=== PATIENT | female | born 1955 | race Caucasian/White ===

== ENCOUNTER → 2018-06-10 05:00 | Outpatient (REF) | payer MEDICAID, SELFPAY ==
[2018-06-10 09:36] LABS: Hematocrit 35.9 % (37-47); Hemoglobin 11.6 g/dl (12.0-15.0); Mean Corp Hgb Conc 32.3 g/gl (32-36); Mean Corpuscular Hgb 32.5 pg (27.0-32.0); Mean Corpuscular Volume 100.6 fL (81-99); Mean Platelet Vol. 9.5 fl (6.2-12.0); Platelet Count 383 K/mm3 (150-450); RBC Distribution Width CV 13.1 % (11.6-14.6); Red Blood Count 3.57 M/mm3 (4.2-5.4); White Blood Count 8.6 K/mm3 (4.4-11.0)
[2018-06-10 09:57] LABS: ALB/GLOB Ratio 0.3 RATIO (0.9-2.4); AST(SGOT) 47 U/L (15-37); Alanine Aminotransfer ALT/SGPT 25 U/L (13-56); Albumin, Serum 1.7 g/dL (3.2-5.0); Alkaline Phosphatase 126 U/L (45-117); Anion Gap 4 (5-15); BUN 7 mg/dL (7-18); BUN/Creat Ratio 18.6 RATIO (10-20); Calcium,Total 8.1 mg/dL (8.5-10.1); Chloride 104 mmol/L (98-107); Cholesterol 102 mg/dL (200); Creatinine, Serum 0.38 mg/dL (0.55-1.02); EST Glomerular Filtration Rate 184 mL/min (>60); Est Glom Filt Rate - Afr Amer 222 mL/min (>60); Glucose 74 mg/dL (74-106); High Density Lipoprotein 35 mg/dL; Magnesium 1.5 mg/dL (1.6-2.6); Potassium 3.4 mmol/L (3.5-5.1); Protein, Total 6.7 g/dL (6.4-8.2); Sodium Level 136 mmol/L (136-145); Thyroid Stim Hormone (TSH) 5.62 uIU/mL (0.358-3.74); Triglycerides 74 mg/dL; Very Low Density Lipoprotein 15 mg/dL (5-40)
[2018-06-10 10:34] LABS: Vitamin D,25 Hydroxy 21.5 ng/mL (29.95-100.01)
[2018-06-10 13:04] LABS: Scan Indicated on CBC? Y/N NO
== END ==
LOC: OLS.ACW300 05:00
PROVIDERS: Visit Provider Family Medicine
DX: N39.0 Urinary tract infection, site not specified (principal); M62.81 Muscle weakness (generalized); R27.9 Unspecified lack of coordination; S42.202D Unspecified fracture of upper end of left humerus, subsequent encounter for fracture with routine healing
CPT/HCPCS: 36415; 80053; 80061; 82306; 83735; 84443; 85027

== ENCOUNTER → 2019-12-09 10:26 | Outpatient (REF) | payer MEDICARE, MEDICAID, SELFPAY | LOC: OLS.ACW300 10:26 | PROVIDERS: Referring Provider Family Medicine; Visit Provider Family Medicine | DX: Z03.818 Encounter for observation for suspected exposure to other biological agents ruled out (principal) | CPT/HCPCS: 87635; U0003 ==

== ENCOUNTER → 2019-12-15 12:47 | Outpatient (REF) | payer MEDICARE, MEDICAID, SELFPAY | LOC: OLS.ACW300 12:47 | PROVIDERS: Referring Provider Family Medicine; Visit Provider Family Medicine | DX: Z03.818 Encounter for observation for suspected exposure to other biological agents ruled out (principal) | CPT/HCPCS: 87635; U0003 ==

== ENCOUNTER → 2020-01-20 05:00 | Outpatient (REF) | payer MEDICARE, MEDICAID, SELFPAY ==
[2020-01-20 09:41] LABS: Hematocrit 40.3 % (37-47); Hemoglobin 12.4 g/dL (12.0-15.0); Mean Corp Hgb Conc 30.8 g/dL (32-36); Mean Corpuscular Hgb 29.7 pg (27.0-32.0); Mean Corpuscular Volume 96.4 fL (81-99); Mean Platelet Vol. 10.3 fl (6.2-12.0); Platelet Count 353 K/mm3 (150-450); RBC Distribution Width CV 12.8 % (11.6-14.6); RBC Distribution Width SD 45.4 fl (35.1-43.9); Red Blood Count 4.18 M/mm3 (4.2-5.4); White Blood Count 9.2 K/mm3 (4.4-11.0)
[2020-01-20 10:07] LABS: Hemoglobin A1c 4.9 % (3.8-5.6)
[2020-01-20 10:14] LABS: AST(SGOT) 16 U/L (15-37); Alanine Aminotransfer ALT/SGPT 19 U/L (13-56); Albumin, Serum 3.2 g/dL (3.2-5.0); Alkaline Phosphatase 79 U/L (45-117); Anion Gap 4 (5-15); BUN 16 mg/dL (7-18); BUN/Creat Ratio 21.8 RATIO (10-20); Bilirubin, Direct 0.09 mg/dL (0.00-0.30); Calcium,Total 8.6 mg/dL (8.5-10.1); Chloride 106 mmol/L (98-107); Cholesterol 187 mg/dL (200); Creatinine, Serum 0.74 mg/dL (0.55-1.02); EST Glomerular Filtration Rate 84 mL/min (>60); Est Glom Filt Rate - Afr Amer 102 mL/min (>60); Globulin 3.7 g/dL (2.2-4.2); Glucose 70 mg/dL (74-106); High Density Lipoprotein 61 mg/dL; Potassium 3.8 mmol/L (3.5-5.1); Protein, Total 6.9 g/dL (6.4-8.2); Sodium Level 138 mmol/L (136-145); Thyroid Stim Hormone (TSH) 2.21 uIU/mL (0.358-3.74); Triglycerides 63 mg/dL; Very Low Density Lipoprotein 13 mg/dL (5-40)
[2020-01-20 14:17] LABS: Vitamin D,25 Hydroxy 11.3 ng/mL
== END ==
LOC: OLS.ACW300 05:00
PROVIDERS: Referring Provider Family Medicine; Visit Provider Family Medicine
DX: N39.0 Urinary tract infection, site not specified (principal); M62.81 Muscle weakness (generalized); R41.841 Cognitive communication deficit; R27.9 Unspecified lack of coordination; S42.202D Unspecified fracture of upper end of left humerus, subsequent encounter for fracture with routine healing; E03.9 Hypothyroidism, unspecified; Z79.899 Other long term (current) drug therapy
CPT/HCPCS: 36415; 80048; 80061; 80076; 82306; 83036; 84443; 85027

== ENCOUNTER → 2020-02-01 12:18 | Outpatient (REF) | payer MEDICARE, MEDICAID, SELFPAY | LOC: OLS.ACW300 12:18 | PROVIDERS: Referring Provider Family Medicine; Visit Provider Family Medicine | DX: Z03.818 Encounter for observation for suspected exposure to other biological agents ruled out (principal) | CPT/HCPCS: 87635; U0003 ==

== ENCOUNTER → 2020-04-22 10:00 | Outpatient (REF) | payer MEDICARE, MEDICAID, SELFPAY | LOC: OLS.ACW300 10:00 | PROVIDERS: Referring Provider Family Medicine; Visit Provider Family Medicine | DX: M62.81 Muscle weakness (generalized) (principal); F02.80 Dementia in other diseases classified elsewhere, unspecified severity, without behavioral disturbance, psychotic disturbance, mood disturbance, and anxiety; R41.841 Cognitive communication deficit; R27.9 Unspecified lack of coordination; R26.2 Difficulty in walking, not elsewhere classified; Z12.11 Encounter for screening for malignant neoplasm of colon | CPT/HCPCS: 82274 ==

== ENCOUNTER → 2020-04-22 14:00 | Outpatient (REF) | payer MEDICARE, MEDICAID, SELFPAY | LOC: OLS.ACW300 14:00 | PROVIDERS: Referring Provider Family Medicine; Visit Provider Family Medicine | DX: M62.81 Muscle weakness (generalized) (principal); F02.80 Dementia in other diseases classified elsewhere, unspecified severity, without behavioral disturbance, psychotic disturbance, mood disturbance, and anxiety; R41.841 Cognitive communication deficit; R27.9 Unspecified lack of coordination; R26.2 Difficulty in walking, not elsewhere classified | CPT/HCPCS: 82274 ==

== ENCOUNTER → 2020-04-24 11:00 | Outpatient (REF) | payer MEDICARE, MEDICAID, SELFPAY | LOC: OLS.ACW300 11:00 | PROVIDERS: Referring Provider Family Medicine; Visit Provider Family Medicine | DX: M62.81 Muscle weakness (generalized) (principal); F02.80 Dementia in other diseases classified elsewhere, unspecified severity, without behavioral disturbance, psychotic disturbance, mood disturbance, and anxiety; R41.841 Cognitive communication deficit; R27.9 Unspecified lack of coordination; R26.2 Difficulty in walking, not elsewhere classified | CPT/HCPCS: 82274 ==

== ENCOUNTER → 2020-04-30 05:00 | Outpatient (REF) | payer MEDICARE, MEDICAID, SELFPAY ==
[2020-04-30 07:41] LABS: Hematocrit 38.8 % (37-47); Hemoglobin 12.1 g/dL (12.0-15.0); Mean Corp Hgb Conc 31.2 g/dL (32-36); Mean Corpuscular Hgb 29.4 pg (27.0-32.0); Mean Corpuscular Volume 94.4 fL (81-99); Mean Platelet Vol. 9.7 fl (6.2-12.0); Platelet Count 334 K/mm3 (150-450); RBC Distribution Width CV 13.2 % (11.6-14.6); RBC Distribution Width SD 45.4 fl (35.1-43.9); Red Blood Count 4.11 M/mm3 (4.2-5.4); White Blood Count 8.7 K/mm3 (4.4-11.0)
[2020-04-30 08:03] LABS: ALB/GLOB Ratio 0.8 RATIO (0.9-2.4); AST(SGOT) 12 U/L (15-37); Alanine Aminotransfer ALT/SGPT 12 U/L (13-56); Alkaline Phosphatase 72 U/L (45-117); Anion Gap 4 (5-15); BUN 19 mg/dL (7-18); BUN/Creat Ratio 24.6 RATIO (10-20); Calcium,Total 8.5 mg/dL (8.5-10.1); Chloride 107 mmol/L (98-107); Creatinine, Serum 0.77 mg/dL (0.55-1.02); EST Glomerular Filtration Rate 80 mL/min (>60); Est Glom Filt Rate - Afr Amer 96 mL/min (>60); Globulin 3.7 g/dL (2.2-4.2); Glucose 84 mg/dL (74-106); Potassium 3.8 mmol/L (3.5-5.1); Protein, Total 6.7 g/dL (6.4-8.2); Sodium Level 140 mmol/L (136-145)
== END ==
LOC: OLS.ACW300 05:00
PROVIDERS: Visit Provider Family Medicine
DX: M62.81 Muscle weakness (generalized) (principal); F02.80 Dementia in other diseases classified elsewhere, unspecified severity, without behavioral disturbance, psychotic disturbance, mood disturbance, and anxiety; R41.841 Cognitive communication deficit; R27.9 Unspecified lack of coordination; R26.2 Difficulty in walking, not elsewhere classified
CPT/HCPCS: 36415; 80053; 85027

== ENCOUNTER → 2020-05-03 20:00 | Outpatient (REF) | payer MEDICARE, MEDICAID, SELFPAY ==
[2020-05-04 09:36] LABS: Color, Urine Yellow (Yellow); Glucose, Dipstick Normal (Normal); Ketone-Dipstick Negative (Negative); Leukocyte Esterase-Dipstick 100 /ul (Negative); Nitrite-Dipstick Positive (Negative); Occult Blood-Urine 10 /ul (Negative); Protein-Dipstick Negative (Negative); Urine Bilirubin Dipstick Negative (Negative); Urine Clarity Clear (Clear); Urine Urobilinogen Normal (Normal); Urine pH 6.5 (5.0 - 8.0)
== END ==
LOC: OLS.ACW300 20:00
PROVIDERS: Visit Provider Family Medicine
DX: R41.0 Disorientation, unspecified (principal)
CPT/HCPCS: 81002; 87077; 87086; 87088; 87186

== ENCOUNTER → 2020-06-13 14:15 | Outpatient (REF) | payer MEDICARE, MEDICAID, SELFPAY ==
[2020-06-14 07:28] LABS: Color, Urine Yellow (Yellow); Glucose, Dipstick Normal (Normal); Ketone-Dipstick 5 mg/dl (Negative); Leukocyte Esterase-Dipstick 500 /ul (Negative); Nitrite-Dipstick Positive (Negative); Occult Blood-Urine 150 /ul (Negative); Protein-Dipstick 30 mg/dl (Negative); Specific Gravity, Urine 1.015 (1.002-1.030); Urine Bilirubin Dipstick Negative (Negative); Urine Clarity Sl. Cloudy (Clear); Urine Urobilinogen Normal (Normal); Urine pH 6.5 (5.0 - 8.0)
== END ==
LOC: OLS.ACW300 14:15
PROVIDERS: Visit Provider Family Medicine
DX: R41.0 Disorientation, unspecified (principal); F02.80 Dementia in other diseases classified elsewhere, unspecified severity, without behavioral disturbance, psychotic disturbance, mood disturbance, and anxiety; M62.81 Muscle weakness (generalized); R41.841 Cognitive communication deficit; R27.9 Unspecified lack of coordination; R26.2 Difficulty in walking, not elsewhere classified
CPT/HCPCS: 81002; 87077; 87086; 87088; 87186

== ENCOUNTER → 2020-08-28 13:45 | Outpatient (REF) | payer MEDICARE, MEDICAID, SELFPAY ==
[2020-08-28 14:43] LABS: Color, Urine Yellow (Yellow); Glucose, Dipstick Normal (Normal); Ketone-Dipstick Negative (Negative); Leukocyte Esterase-Dipstick 25 /ul (Negative); Nitrite-Dipstick Positive (Negative); Occult Blood-Urine 10 /ul (Negative); Protein-Dipstick Negative (Negative); Urine Bilirubin Dipstick Negative (Negative); Urine Clarity Sl. Cloudy (Clear); Urine Urobilinogen Normal (Normal)
== END ==
LOC: OLS.ACW300 13:45
PROVIDERS: Visit Provider Nurse Practitioner Family
DX: R41.82 Altered mental status, unspecified (principal)
CPT/HCPCS: 81002; 87077; 87086; 87088; 87186

== ENCOUNTER → 2020-11-30 05:00 | Outpatient (REF) | payer MEDICARE, MEDICAID, SELFPAY ==
[2020-11-30 09:11] LABS: Cholesterol 216 mg/dL (200); High Density Lipoprotein 61 mg/dL; Triglycerides 92 mg/dL; Very Low Density Lipoprotein 18 mg/dL (5-40)
== END ==
LOC: OLS.ACW400 05:00
PROVIDERS: Visit Provider Family Medicine
DX: M62.81 Muscle weakness (generalized) (principal); F02.80 Dementia in other diseases classified elsewhere, unspecified severity, without behavioral disturbance, psychotic disturbance, mood disturbance, and anxiety; R41.841 Cognitive communication deficit; R27.9 Unspecified lack of coordination; R26.2 Difficulty in walking, not elsewhere classified; E44.1 Mild protein-calorie malnutrition; J44.9 Chronic obstructive pulmonary disease, unspecified; R94.6 Abnormal results of thyroid function studies; I73.9 Peripheral vascular disease, unspecified
CPT/HCPCS: 36415; 80061

== ENCOUNTER → 2021-04-23 | Outpatient (REF) | payer MEDICARE, MEDICAID, SELFPAY ==
[2021-04-23 06:48] LABS: Hematocrit 35.3 % (37-47); Hemoglobin 11.5 g/dL (12.0-15.0); Mean Corp Hgb Conc 32.6 g/dL (32-36); Mean Corpuscular Hgb 30.1 pg (27.0-32.0); Mean Corpuscular Volume 92.4 fL (81-99); Platelet Count 309 K/mm3 (150-450); RBC Distribution Width SD 43.8 fl (35.1-43.9); Red Blood Count 3.82 M/mm3 (4.2-5.4); White Blood Count 9.5 K/mm3 (4.4-11.0)
[2021-04-23 07:20] LABS: AST(SGOT) 12 U/L (15-37); Alanine Aminotransfer ALT/SGPT 12 U/L (13-56); Alkaline Phosphatase 90 U/L (45-117); Anion Gap 6 (5-15); BUN 13 mg/dL (7-18); BUN/Creat Ratio 16.8 RATIO (10-20); Bilirubin, Direct 0.12 mg/dL (0.00-0.30); Calcium,Total 8.4 mg/dL (8.5-10.1); Chloride 107 mmol/L (98-107); Creatinine, Serum 0.77 mg/dL (0.55-1.02); EST Glomerular Filtration Rate 79 mL/min (>60); Est Glom Filt Rate - Afr Amer 96 mL/min (>60); Globulin 3.9 g/dL (2.2-4.2); Glucose 92 mg/dL (74-106); Potassium 4.2 mmol/L (3.5-5.1); Protein, Total 6.9 g/dL (6.4-8.2); Sodium Level 139 mmol/L (136-145)
[2021-04-26 08:32] LABS: Color, Urine Yellow (Yellow); Glucose, Dipstick Normal (Normal); Ketone-Dipstick Negative (Negative); Leukocyte Esterase-Dipstick Negative /ul (Negative); Nitrite-Dipstick Negative (Negative); Occult Blood-Urine Negative /ul (Negative); Protein-Dipstick Negative (Negative); Urine Bilirubin Dipstick Negative (Negative); Urine Clarity Sl. Cloudy (Clear); Urine Urobilinogen Normal (Normal)
== END | disposition home or self-care (01) ==
LOC: OLS.ACW400 05:00
PROVIDERS: Visit Provider Family Medicine
DX: F02.80 Dementia in other diseases classified elsewhere, unspecified severity, without behavioral disturbance, psychotic disturbance, mood disturbance, and anxiety (principal); M62.81 Muscle weakness (generalized); R41.841 Cognitive communication deficit; R27.9 Unspecified lack of coordination; R26.2 Difficulty in walking, not elsewhere classified
CPT/HCPCS: 36415; 80048; 80076; 81002; 82140; 85027; 87086; 87088

== ENCOUNTER → 2021-05-31 | Outpatient (REF) | payer MEDICARE, MEDICAID, SELFPAY ==
[2021-05-31 09:15] LABS: Cholesterol 110 mg/dL (200); High Density Lipoprotein 59 mg/dL; Triglycerides 59 mg/dL; Very Low Density Lipoprotein 12 mg/dL (5-40)
== END | disposition home or self-care (01) ==
LOC: OLS.ACW400 05:00
PROVIDERS: Visit Provider Family Medicine
DX: R94.6 Abnormal results of thyroid function studies (principal); E44.1 Mild protein-calorie malnutrition; I73.9 Peripheral vascular disease, unspecified; D53.9 Nutritional anemia, unspecified
CPT/HCPCS: 36415; 80061

== ENCOUNTER → 2021-07-04 | Outpatient (REF) | payer MEDICARE, MEDICAID, SELFPAY ==
[2021-07-04 09:12] LABS: Hematocrit 36.6 % (37-47); Hemoglobin 11.6 g/dL (12.0-15.0); Mean Corp Hgb Conc 31.7 g/dL (32-36); Mean Corpuscular Hgb 29.9 pg (27.0-32.0); Mean Corpuscular Volume 94.3 fL (81-99); Mean Platelet Vol. 10.4 fl (6.2-12.0); Platelet Count 330 K/mm3 (150-450); RBC Distribution Width CV 12.9 % (11.6-14.6); RBC Distribution Width SD 44.7 fl (35.1-43.9); Red Blood Count 3.88 M/mm3 (4.2-5.4); White Blood Count 8.4 K/mm3 (4.4-11.0)
[2021-07-04 09:30] LABS: Vitamin D,25 Hydroxy 24.4 ng/mL
[2021-07-04 09:40] LABS: Hemoglobin A1c 5.3 % (3.8-5.6)
[2021-07-04 09:44] LABS: ALB/GLOB Ratio 0.8 RATIO (0.9-2.4); AST(SGOT) 16 U/L (15-37); Alanine Aminotransfer ALT/SGPT 17 U/L (13-56); Albumin, Serum 3.1 g/dL (3.2-5.0); Alkaline Phosphatase 86 U/L (45-117); Anion Gap 4 (5-15); BUN 13 mg/dL (7-18); BUN/Creat Ratio 15.6 RATIO (10-20); Calcium,Total 8.8 mg/dL (8.5-10.1); Chloride 108 mmol/L (98-107); Cholesterol 123 mg/dL (200); Creatinine, Serum 0.83 mg/dL (0.55-1.02); EST Glomerular Filtration Rate 73 mL/min (>60); Est Glom Filt Rate - Afr Amer 88 mL/min (>60); Globulin 3.9 g/dL (2.2-4.2); Glucose 94 mg/dL (74-106); High Density Lipoprotein 63 mg/dL; Magnesium 2.3 mg/dL (1.6-2.6); Potassium 4.2 mmol/L (3.5-5.1); Sodium Level 140 mmol/L (136-145); Thyroid Stim Hormone (TSH) 1.99 uIU/mL (0.358-3.74); Triglycerides 49 mg/dL; Very Low Density Lipoprotein 10 mg/dL (5-40)
== END | disposition home or self-care (01) ==
LOC: OLS.ACW400 05:00
PROVIDERS: Referring Provider Family Medicine; Visit Provider Family Medicine
DX: J44.9 Chronic obstructive pulmonary disease, unspecified (principal); F02.80 Dementia in other diseases classified elsewhere, unspecified severity, without behavioral disturbance, psychotic disturbance, mood disturbance, and anxiety; M62.81 Muscle weakness (generalized); F41.9 Anxiety disorder, unspecified
CPT/HCPCS: 36415; 80053; 80061; 82306; 83036; 83735; 84443; 85027

== ENCOUNTER 2021-08-06 07:24 | Outpatient (REF) | payer MEDICARE, MEDICAID, SELFPAY ==
[2021-08-07 10:07] LABS: Microalbumin,Random Urine < 5.0 mg/L (NO RANGE EST.)
== END 2021-08-06 23:59 | disposition home or self-care (01) ==
LOC: OLS.ACW400 07:24
PROVIDERS: Referring Provider Family Medicine; Visit Provider Family Medicine
DX: F02.80 Dementia in other diseases classified elsewhere, unspecified severity, without behavioral disturbance, psychotic disturbance, mood disturbance, and anxiety (principal); J44.9 Chronic obstructive pulmonary disease, unspecified; M62.81 Muscle weakness (generalized); F41.9 Anxiety disorder, unspecified; N39.0 Urinary tract infection, site not specified
CPT/HCPCS: 82043; 82570

== ENCOUNTER → 2022-01-10 | Outpatient (REF) | payer MEDICARE, MEDICAID, SELFPAY ==
[2022-01-10 09:11] LABS: Anion Gap 5 (5-15); BUN 11 mg/dL (7-18); BUN/Creat Ratio 15.4 RATIO (10-20); Calcium,Total 9.1 mg/dL (8.5-10.1); Chloride 108 mmol/L (98-107); Creatinine, Serum 0.72 mg/dL (0.55-1.02); EST Glomerular Filtration Rate 87 mL/min (>60); Est Glom Filt Rate - Afr Amer 105 mL/min (>60); Glucose 100 mg/dL (74-106); Potassium 4.3 mmol/L (3.5-5.1); Sodium Level 141 mmol/L (136-145)
== END ==
LOC: OLS.ACW400 05:00
PROVIDERS: Visit Provider Family Medicine
DX: J44.9 Chronic obstructive pulmonary disease, unspecified (principal); M62.81 Muscle weakness (generalized); F02.80 Dementia in other diseases classified elsewhere, unspecified severity, without behavioral disturbance, psychotic disturbance, mood disturbance, and anxiety
CPT/HCPCS: 36415; 80048

== ENCOUNTER → 2022-07-30 | Outpatient (REF) | payer MEDICARE, MEDICAID, SELFPAY ==
[2022-07-30 09:43] LABS: Hematocrit 37.6 % (37-47); Mean Corp Hgb Conc 29.3 g/dL (32-36); Mean Corpuscular Hgb 26.3 pg (27.0-32.0); Mean Corpuscular Volume 89.7 fL (81-99); Mean Platelet Vol. 10.3 fl (6.2-12.0); Platelet Count 382 K/mm3 (150-450); RBC Distribution Width CV 15.3 % (11.6-14.6); RBC Distribution Width SD 50.3 fl (35.1-43.9); Red Blood Count 4.19 M/mm3 (4.2-5.4); White Blood Count 7.8 K/mm3 (4.4-11.0)
[2022-07-30 10:04] LABS: Vitamin D,25 Hydroxy 23.6 ng/mL
[2022-07-30 10:10] LABS: Anion Gap 6 (5-15); BUN 12 mg/dL (7-18); BUN/Creat Ratio 14.8 RATIO (10-20); Chloride 108 mmol/L (98-107); Creatinine, Serum 0.81 mg/dL (0.55-1.02); EST Glomerular Filtration Rate 75 mL/min (>60); Est Glom Filt Rate - Afr Amer 90 mL/min (>60); Glucose 89 mg/dL (74-106); Potassium 4.1 mmol/L (3.5-5.1); Sodium Level 140 mmol/L (136-145); Thyroid Stim Hormone (TSH) 3.54 uIU/mL (0.358-3.74)
== END ==
LOC: OLS.ACW400 05:00
PROVIDERS: Visit Provider Family Medicine
DX: F02.80 Dementia in other diseases classified elsewhere, unspecified severity, without behavioral disturbance, psychotic disturbance, mood disturbance, and anxiety (principal); M62.81 Muscle weakness (generalized); Z47.89 Encounter for other orthopedic aftercare; E55.9 Vitamin D deficiency, unspecified; Z79.899 Other long term (current) drug therapy
CPT/HCPCS: 36415; 80048; 82306; 84443; 85027

== ENCOUNTER → 2022-12-01 | Outpatient (REF) | payer MEDICARE, MEDICAID, SELFPAY ==
[2022-12-01 10:09] LABS: AST(SGOT) 8 U/L (15-37); Alanine Aminotransfer ALT/SGPT 11 U/L (13-56); Albumin, Serum 3.2 g/dL (3.2-5.0); Alkaline Phosphatase 85 U/L (45-117); Anion Gap 6 (5-15); BUN 13 mg/dL (7-18); Bilirubin, Direct 0.16 mg/dL (0.00-0.30); Calcium,Total 8.7 mg/dL (8.5-10.1); Chloride 107 mmol/L (98-107); Cholesterol 121 mg/dL (200); Creatinine, Serum 0.81 mg/dL (0.55-1.02); EST Glomerular Filtration Rate 74 mL/min (>60); Est Glom Filt Rate - Afr Amer 90 mL/min (>60); Globulin 3.9 g/dL (2.2-4.2); Glucose 87 mg/dL (74-106); High Density Lipoprotein 64 mg/dL; Potassium 3.8 mmol/L (3.5-5.1); Protein, Total 7.1 g/dL (6.4-8.2); Sodium Level 140 mmol/L (136-145); Triglycerides 49 mg/dL; Very Low Density Lipoprotein 10 mg/dL (5-40)
== END ==
LOC: OLS.ACW400 05:00
PROVIDERS: Visit Provider Family Medicine
DX: M62.81 Muscle weakness (generalized) (principal); F02.80 Dementia in other diseases classified elsewhere, unspecified severity, without behavioral disturbance, psychotic disturbance, mood disturbance, and anxiety; Z79.899 Other long term (current) drug therapy
CPT/HCPCS: 36415; 80048; 80061; 80076

== ENCOUNTER → 2022-12-04 | Outpatient (REF) | payer MEDICARE, MEDICAID, SELFPAY ==
[2022-12-04 09:06] LABS: Anion Gap 3 (5-15); BUN 14 mg/dL (7-18); BUN/Creat Ratio 18.4 RATIO (10-20); Calcium,Total 8.5 mg/dL (8.5-10.1); Chloride 110 mmol/L (98-107); Creatinine, Serum 0.76 mg/dL (0.55-1.02); EST Glomerular Filtration Rate 81 mL/min (>60); Est Glom Filt Rate - Afr Amer 97 mL/min (>60); Glucose 95 mg/dL (74-106); Sodium Level 142 mmol/L (136-145)
== END ==
LOC: OLS.ACW400 05:00
PROVIDERS: Visit Provider Family Medicine
DX: M62.81 Muscle weakness (generalized) (principal); F02.80 Dementia in other diseases classified elsewhere, unspecified severity, without behavioral disturbance, psychotic disturbance, mood disturbance, and anxiety; F25.9 Schizoaffective disorder, unspecified; I73.9 Peripheral vascular disease, unspecified
CPT/HCPCS: 36415; 80048

== ENCOUNTER → 2023-01-23 | Outpatient (REF) | payer MEDICARE, MEDICAID, SELFPAY ==
[2023-01-23 08:56] LABS: Bacteria 0 SEEN /hpf (None Seen); Mucous, Urine 0 SEEN /hpf (<or=2+); Red Blood Cells-Urine 0 SEEN /hpf (0-5); Squamous Epithelial Cells - UA 0 SEEN /hpf (5-10)
[2023-01-23 09:01] LABS: Color, Urine Yellow (Yellow); Glucose, Dipstick Normal (Normal); Ketone-Dipstick 5 mg/dl (Negative); Leukocyte Esterase-Dipstick 25 /ul (Negative); Nitrite-Dipstick Positive (Negative); Occult Blood-Urine Negative /ul (Negative); Protein-Dipstick 15 mg/dl (Negative); Urine Bilirubin Dipstick Negative (Negative); Urine Clarity Clear (Clear); Urine Urobilinogen 1 mg/dl (Normal)
[2023-01-23 09:06] LABS: Amorphous Sediment 1+; White Blood Cells 0-5 SEEN /hpf (0-5)
[2023-01-23 09:14] LABS: Hematocrit 35.4 % (37-47); Hemoglobin 10.6 g/dL (12.0-15.0); Mean Corp Hgb Conc 29.9 g/dL (32-36); Mean Corpuscular Hgb 27.2 pg (27.0-32.0); Mean Platelet Vol. 10.6 fl (6.2-12.0); Platelet Count 307 K/mm3 (150-450); RBC Distribution Width CV 14.2 % (11.6-14.6); RBC Distribution Width SD 47.7 fl (35.1-43.9); Red Blood Count 3.89 M/mm3 (4.2-5.4); White Blood Count 7.2 K/mm3 (4.4-11.0)
[2023-01-23 09:42] LABS: Anion Gap 1 (5-15); BUN 13 mg/dL (7-18); BUN/Creat Ratio 16.7 RATIO (10-20); Calcium,Total 8.8 mg/dL (8.5-10.1); Chloride 110 mmol/L (98-107); Creatinine, Serum 0.78 mg/dL (0.55-1.02); EST Glomerular Filtration Rate 78 mL/min (>60); Est Glom Filt Rate - Afr Amer 95 mL/min (>60); Glucose 86 mg/dL (74-106); Potassium 3.9 mmol/L (3.5-5.1); Sodium Level 140 mmol/L (136-145); Thyroid Stim Hormone (TSH) 2.22 uIU/mL (0.358-3.74)
== END ==
LOC: OLS.ACW400 05:00
PROVIDERS: Visit Provider Family Medicine
DX: M62.81 Muscle weakness (generalized) (principal); F02.80 Dementia in other diseases classified elsewhere, unspecified severity, without behavioral disturbance, psychotic disturbance, mood disturbance, and anxiety; Z79.899 Other long term (current) drug therapy
CPT/HCPCS: 36415; 80048; 81001; 84443; 85027

== ENCOUNTER → 2023-01-30 | Outpatient (REF) | payer MEDICARE, MEDICAID, SELFPAY ==
[2023-01-30 08:20] LABS: Hematocrit 30.1 % (37-47); Hemoglobin 9.1 g/dL (12.0-15.0); Mean Corp Hgb Conc 30.2 g/dL (32-36); Mean Corpuscular Hgb 27.5 pg (27.0-32.0); Mean Corpuscular Volume 90.9 fL (81-99); Mean Platelet Vol. 10.4 fl (6.2-12.0); Platelet Count 317 K/mm3 (150-450); RBC Distribution Width CV 14.7 % (11.6-14.6); RBC Distribution Width SD 48.5 fl (35.1-43.9); Red Blood Count 3.31 M/mm3 (4.2-5.4)
[2023-01-30 08:34] LABS: Anion Gap 2 (5-15); BUN 13 mg/dL (7-18); BUN/Creat Ratio 17.5 RATIO (10-20); Calcium,Total 8.5 mg/dL (8.5-10.1); Chloride 110 mmol/L (98-107); Creatinine, Serum 0.74 mg/dL (0.55-1.02); EST Glomerular Filtration Rate 83 mL/min (>60); Est Glom Filt Rate - Afr Amer 100 mL/min (>60); Glucose 84 mg/dL (74-106); Potassium 3.8 mmol/L (3.5-5.1); Sodium Level 141 mmol/L (136-145)
== END ==
LOC: OLS.ACW400 05:00
PROVIDERS: Visit Provider Family Medicine
DX: F02.80 Dementia in other diseases classified elsewhere, unspecified severity, without behavioral disturbance, psychotic disturbance, mood disturbance, and anxiety (principal); M62.81 Muscle weakness (generalized)
CPT/HCPCS: 36415; 80048; 85027

== ENCOUNTER → 2023-02-13 | Outpatient (REF) | payer MEDICARE, MEDICAID, SELFPAY ==
[2023-02-13 07:33] LABS: Hematocrit 35.1 % (37-47); Hemoglobin 10.8 g/dL (12.0-15.0); Mean Corp Hgb Conc 30.8 g/dL (32-36); Mean Corpuscular Hgb 27.3 pg (27.0-32.0); Mean Corpuscular Volume 88.6 fL (81-99); Mean Platelet Vol. 10.1 fl (6.2-12.0); Platelet Count 432 K/mm3 (150-450); RBC Distribution Width CV 14.2 % (11.6-14.6); RBC Distribution Width SD 45.4 fl (35.1-43.9); Red Blood Count 3.96 M/mm3 (4.2-5.4); White Blood Count 8.8 K/mm3 (4.4-11.0)
[2023-02-13 07:50] LABS: Anion Gap 6 (5-15); BUN 10 mg/dL (7-18); BUN/Creat Ratio 12.6 RATIO (10-20); Calcium,Total 8.8 mg/dL (8.5-10.1); Chloride 111 mmol/L (98-107); Creatinine, Serum 0.79 mg/dL (0.55-1.02); EST Glomerular Filtration Rate 77 mL/min (>60); Est Glom Filt Rate - Afr Amer 93 mL/min (>60); Glucose 88 mg/dL (74-106); Potassium 3.9 mmol/L (3.5-5.1); Sodium Level 141 mmol/L (136-145)
== END ==
LOC: OLS.ACW400 05:00
PROVIDERS: Visit Provider Family Medicine
DX: M62.81 Muscle weakness (generalized) (principal); F02.80 Dementia in other diseases classified elsewhere, unspecified severity, without behavioral disturbance, psychotic disturbance, mood disturbance, and anxiety
CPT/HCPCS: 36415; 80048; 85027

== ENCOUNTER → 2023-02-20 | Outpatient (REF) | payer MEDICARE, MEDICAID, SELFPAY ==
[2023-02-20 09:42] LABS: Hematocrit 33.3 % (37-47); Hemoglobin 9.8 g/dL (12.0-15.0); Mean Corp Hgb Conc 29.4 g/dL (32-36); Mean Corpuscular Hgb 26.6 pg (27.0-32.0); Mean Corpuscular Volume 90.5 fL (81-99); Mean Platelet Vol. 10.6 fl (6.2-12.0); Platelet Count 352 K/mm3 (150-450); RBC Distribution Width SD 46.7 fl (35.1-43.9); Red Blood Count 3.68 M/mm3 (4.2-5.4); White Blood Count 8.1 K/mm3 (4.4-11.0)
[2023-02-20 10:39] LABS: Anion Gap 4 (5-15); BUN 9 mg/dL (7-18); BUN/Creat Ratio 12.7 RATIO (10-20); Calcium,Total 8.7 mg/dL (8.5-10.1); Chloride 110 mmol/L (98-107); Creatinine, Serum 0.71 mg/dL (0.55-1.02); EST Glomerular Filtration Rate 87 mL/min (>60); Est Glom Filt Rate - Afr Amer 105 mL/min (>60); Glucose 83 mg/dL (74-106); Sodium Level 144 mmol/L (136-145)
== END ==
LOC: OLS.ACW400 04:00
PROVIDERS: Referring Provider Family Medicine; Visit Provider Family Medicine
DX: M62.81 Muscle weakness (generalized) (principal); F02.80 Dementia in other diseases classified elsewhere, unspecified severity, without behavioral disturbance, psychotic disturbance, mood disturbance, and anxiety
CPT/HCPCS: 36415; 80048; 85027

== ENCOUNTER → 2023-03-02 | Outpatient (REF) | payer MEDICARE, MEDICAID, SELFPAY ==
[2023-03-02 09:21] LABS: Mucous, Urine 0 SEEN /hpf (<or=2+); Red Blood Cells-Urine 0 SEEN /hpf (0-5)
[2023-03-02 09:27] LABS: Color, Urine Yellow (Yellow); Glucose, Dipstick Normal (Normal); Ketone-Dipstick Negative (Negative); Leukocyte Esterase-Dipstick 100 /ul (Negative); Nitrite-Dipstick Positive (Negative); Occult Blood-Urine Negative /ul (Negative); Protein-Dipstick 15 mg/dl (Negative); Urine Bilirubin Dipstick Negative (Negative); Urine Clarity Sl. Cloudy (Clear); Urine Urobilinogen Normal (Normal)
[2023-03-02 09:35] LABS: Bacteria 3+ /hpf (None Seen); Calcium Oxalate Crystals Ur 1+ /hpf (<or=2+); Squamous Epithelial Cells - UA 0-5 SEEN /hpf (5-10); White Blood Cells 10-25 SEEN /hpf (0-5)
== END ==
LOC: OLS.ACW400 05:00
PROVIDERS: Visit Provider Family Medicine
DX: R41.82 Altered mental status, unspecified (principal); R35.0 Frequency of micturition
CPT/HCPCS: 81001; 87077; 87086; 87088; 87186

== ENCOUNTER → 2023-03-18 | Outpatient (REF) | payer MEDICARE, MEDICAID, SELFPAY ==
[2023-03-18 09:17] LABS: Hematocrit 36.9 % (37-47); Mean Corp Hgb Conc 29.8 g/dL (32-36); Mean Corpuscular Hgb 25.8 pg (27.0-32.0); Mean Corpuscular Volume 86.6 fL (81-99); Mean Platelet Vol. 10.4 fl (6.2-12.0); Platelet Count 348 K/mm3 (150-450); RBC Distribution Width CV 13.9 % (11.6-14.6); RBC Distribution Width SD 44.2 fl (35.1-43.9); Red Blood Count 4.26 M/mm3 (4.2-5.4); White Blood Count 8.6 K/mm3 (4.4-11.0)
[2023-03-18 09:29] LABS: Anion Gap 2 (5-15); BUN 12 mg/dL (7-18); BUN/Creat Ratio 15.9 RATIO (10-20); Calcium,Total 9.4 mg/dL (8.5-10.1); Chloride 110 mmol/L (98-107); Creatinine, Serum 0.76 mg/dL (0.55-1.02); EST Glomerular Filtration Rate 81 mL/min (>60); Est Glom Filt Rate - Afr Amer 98 mL/min (>60); Glucose 88 mg/dL (74-106); Potassium 3.7 mmol/L (3.5-5.1); Sodium Level 140 mmol/L (136-145)
== END ==
LOC: OLS.ACW400 04:00
PROVIDERS: Visit Provider Family Medicine
DX: S72.91XD Unspecified fracture of right femur, subsequent encounter for closed fracture with routine healing (principal); M62.81 Muscle weakness (generalized); W19.XXXD Unspecified fall, subsequent encounter
CPT/HCPCS: 36415; 80048; 85027

== ENCOUNTER → 2023-05-06 | Outpatient (REF) | payer MEDICARE, MEDICAID, SELFPAY ==
[2023-05-06 07:46] LABS: Hematocrit 36.7 % (37-47); Hemoglobin 10.8 g/dL (12.0-15.0); Mean Corp Hgb Conc 29.4 g/dL (32-36); Mean Corpuscular Hgb 25.1 pg (27.0-32.0); Mean Corpuscular Volume 85.3 fL (81-99); Mean Platelet Vol. 10.1 fl (6.2-12.0); Platelet Count 464 K/mm3 (150-450); RBC Distribution Width CV 15.9 % (11.6-14.6); RBC Distribution Width SD 50.3 fl (35.1-43.9); White Blood Count 8.7 K/mm3 (4.4-11.0)
[2023-05-06 08:09] LABS: ALB/GLOB Ratio 0.7 RATIO (0.9-2.4); AST(SGOT) 9 U/L (15-37); Alanine Aminotransfer ALT/SGPT 11 U/L (13-56); Albumin, Serum 2.9 g/dL (3.2-5.0); Alkaline Phosphatase 88 U/L (45-117); Anion Gap 4 (5-15); BUN 12 mg/dL (7-18); BUN/Creat Ratio 16.5 RATIO (10-20); Chloride 108 mmol/L (98-107); Creatinine, Serum 0.73 mg/dL (0.55-1.02); EST Glomerular Filtration Rate 85 mL/min (>60); Est Glom Filt Rate - Afr Amer 102 mL/min (>60); Glucose 88 mg/dL (74-106); Potassium 4.3 mmol/L (3.5-5.1); Protein, Total 6.9 g/dL (6.4-8.2); Sodium Level 142 mmol/L (136-145)
== END ==
LOC: OLS.ACW400 05:00
PROVIDERS: Visit Provider Family Medicine
DX: S72.91XA Unspecified fracture of right femur, initial encounter for closed fracture (principal); M62.81 Muscle weakness (generalized)
CPT/HCPCS: 36415; 80053; 85027

== ENCOUNTER → 2023-05-14 | Outpatient (REF) | payer MEDICARE, MEDICAID, SELFPAY ==
[2023-05-14 09:22] LABS: Hematocrit 33.7 % (37-47); Mean Corp Hgb Conc 29.7 g/dL (32-36); Mean Corpuscular Hgb 25.3 pg (27.0-32.0); Mean Corpuscular Volume 85.1 fL (81-99); Mean Platelet Vol. 10.5 fl (6.2-12.0); Platelet Count 406 K/mm3 (150-450); RBC Distribution Width CV 16.7 % (11.6-14.6); RBC Distribution Width SD 52.1 fl (35.1-43.9); Red Blood Count 3.96 M/mm3 (4.2-5.4); White Blood Count 10.8 K/mm3 (4.4-11.0)
[2023-05-14 10:08] LABS: ALB/GLOB Ratio 0.8 RATIO (0.9-2.4); AST(SGOT) 14 U/L (15-37); Alanine Aminotransfer ALT/SGPT 9 U/L (13-56); Albumin, Serum 2.7 g/dL (3.2-5.0); Alkaline Phosphatase 83 U/L (45-117); Anion Gap 5 (5-15); BUN 16 mg/dL (7-18); BUN/Creat Ratio 20.6 RATIO (10-20); Calcium,Total 8.7 mg/dL (8.5-10.1); Chloride 111 mmol/L (98-107); Creatinine, Serum 0.78 mg/dL (0.55-1.02); EST Glomerular Filtration Rate 78 mL/min (>60); Est Glom Filt Rate - Afr Amer 95 mL/min (>60); Globulin 3.6 g/dL (2.2-4.2); Glucose 86 mg/dL (74-106); Potassium 3.7 mmol/L (3.5-5.1); Protein, Total 6.3 g/dL (6.4-8.2); Sodium Level 143 mmol/L (136-145); Thyroid Stim Hormone (TSH) 1.01 uIU/mL (0.358-3.74)
== END ==
LOC: OLS.ACW400 05:00
PROVIDERS: Visit Provider Family Medicine
DX: I95.9 Hypotension, unspecified (principal); J44.9 Chronic obstructive pulmonary disease, unspecified; I73.9 Peripheral vascular disease, unspecified; F02.80 Dementia in other diseases classified elsewhere, unspecified severity, without behavioral disturbance, psychotic disturbance, mood disturbance, and anxiety; M62.81 Muscle weakness (generalized)
CPT/HCPCS: 36415; 80053; 82533; 84443; 85027

== ENCOUNTER → 2023-05-22 | Outpatient (REF) | payer MEDICARE, MEDICAID, SELFPAY ==
[2023-05-22 09:03] LABS: PTHIN 94.2 pg/mL (18.4-80.1)
== END ==
LOC: OLS.ACW400 05:00
PROVIDERS: Visit Provider Family Medicine
DX: S72.91XD Unspecified fracture of right femur, subsequent encounter for closed fracture with routine healing (principal); M62.81 Muscle weakness (generalized)
CPT/HCPCS: 36415; 82533; 83970

== ENCOUNTER → 2023-06-11 05:00 | Outpatient (REF) | payer MEDICARE, MEDICAID, SELFPAY | LOC: OLS.ACW400 05:00 | PROVIDERS: Visit Provider Family Medicine | DX: S72.91XD Unspecified fracture of right femur, subsequent encounter for closed fracture with routine healing (principal); W19.XXXD Unspecified fall, subsequent encounter; M62.81 Muscle weakness (generalized); Z96.641 Presence of right artificial hip joint | CPT/HCPCS: 36415; 82533 ==

== ENCOUNTER → 2023-06-15 | Outpatient (REF) | payer MEDICARE, MEDICAID, SELFPAY ==
[2023-06-15 10:02] LABS: Color, Urine Yellow (Yellow); Glucose, Dipstick Normal (Normal); Ketone-Dipstick 15 mg/dl (Negative); Leukocyte Esterase-Dipstick 100 /ul (Negative); Nitrite-Dipstick Positive (Negative); Occult Blood-Urine 150 /ul (Negative); Protein-Dipstick 30 mg/dl (Negative); Specific Gravity, Urine 1.025 (1.002-1.030); Urine Bilirubin Dipstick Negative (Negative); Urine Clarity Turbid (Clear); Urine Urobilinogen 4 mg/dl (Normal)
== END ==
LOC: OLS.ACW400 09:24
PROVIDERS: Referring Provider Family Medicine; Visit Provider Family Medicine
DX: R39.9 Unspecified symptoms and signs involving the genitourinary system (principal)
CPT/HCPCS: 81002; 87077; 87086; 87088; 87186

== ENCOUNTER → 2023-06-29 | Outpatient (REF) | payer MEDICARE, MEDICAID, SELFPAY ==
[2023-06-29 08:56] LABS: Hematocrit 37.5 % (37-47); Hemoglobin 11.6 g/dL (12.0-15.0); Mean Corp Hgb Conc 30.9 g/dL (32-36); Mean Corpuscular Hgb 26.6 pg (27.0-32.0); Mean Platelet Vol. 10.8 fl (6.2-12.0); Platelet Count 356 K/mm3 (150-450); RBC Distribution Width CV 18.4 % (11.6-14.6); RBC Distribution Width SD 57.7 fl (35.1-43.9); Red Blood Count 4.36 M/mm3 (4.2-5.4); White Blood Count 8.5 K/mm3 (4.4-11.0)
[2023-06-29 10:04] LABS: Anion Gap 5 (5-15); BUN 12 mg/dL (7-18); BUN/Creat Ratio 15.3 RATIO (10-20); Calcium,Total 8.9 mg/dL (8.5-10.1); Chloride 110 mmol/L (98-107); Creatinine, Serum 0.78 mg/dL (0.55-1.02); EST Glomerular Filtration Rate 78 mL/min (>60); Est Glom Filt Rate - Afr Amer 94 mL/min (>60); Glucose 90 mg/dL (74-106); Sodium Level 141 mmol/L (136-145); Thyroid Stim Hormone (TSH) 1.51 uIU/mL (0.358-3.74)
== END ==
LOC: OLS.ACW400 05:00
PROVIDERS: Visit Provider Family Medicine
DX: M62.81 Muscle weakness (generalized) (principal); F02.80 Dementia in other diseases classified elsewhere, unspecified severity, without behavioral disturbance, psychotic disturbance, mood disturbance, and anxiety; Z79.899 Other long term (current) drug therapy
CPT/HCPCS: 36415; 80048; 84443; 85027

== ENCOUNTER → 2023-07-16 05:00 | Outpatient (REF) | payer MEDICARE, MEDICAID, SELFPAY | LOC: OLS.ACW400 05:00 | PROVIDERS: Visit Provider Family Medicine | DX: F41.9 Anxiety disorder, unspecified (principal); M62.81 Muscle weakness (generalized); Z96.641 Presence of right artificial hip joint; S72.91XD Unspecified fracture of right femur, subsequent encounter for closed fracture with routine healing; W19.XXXD Unspecified fall, subsequent encounter | CPT/HCPCS: 36415; 82533 ==

== ENCOUNTER → 2023-09-02 06:29 | Outpatient (REF) | payer MEDICARE, MEDICAID, SELFPAY ==
[2023-09-02 09:16] LABS: Absolute Lymphocyte Count 4.97 X10^3/uL (0.83-4.51); Absolute Neutrophil Count 4.4 X10^3/uL (2.0-7.7); Basophil# 0.04 X10^3/uL; Basophil% 0.4 % (0-1); Eosinophil# 0.19 X10^3/uL; Eosinophils% 1.8 % (0-5); Hemoglobin 11.2 g/dL (12.0-15.0); Lymphocyte # 4.97 X10^3/ul (0.83-4.51); Lymphocyte % 47.5 % (19-41); Mean Corp Hgb Conc 31.1 g/dL (32-36); Mean Corpuscular Hgb 28.4 pg (27.0-32.0); Mean Corpuscular Volume 91.4 fL (81-99); Monocyte# 0.82 X10^3/uL; Monocyte% 7.8 % (0-10); NRBC Flagged by Analyzer 0 % (0-5); Neutrophil # 4.42 X10^3/uL (2.7-7.7); Neutrophil % 42.3 % (47-70); Platelet Count 343 K/mm3 (150-450); RBC Distribution Width CV 15.9 % (11.6-14.6); RBC Distribution Width SD 53.4 fl (35.1-43.9); Red Blood Count 3.94 M/mm3 (4.2-5.4); White Blood Count 10.5 K/mm3 (4.4-11.0)
[2023-09-02 09:35] LABS: ALB/GLOB Ratio 0.9 RATIO (0.9-2.4); AST(SGOT) 20 U/L (15-37); Alanine Aminotransfer ALT/SGPT 39 U/L (13-56); Albumin, Serum 3.1 g/dL (3.2-5.0); Alkaline Phosphatase 68 U/L (45-117); Anion Gap 5 (5-15); BUN 14 mg/dL (7-18); BUN/Creat Ratio 21.6 RATIO (10-20); Calcium,Total 9.1 mg/dL (8.5-10.1); Chloride 107 mmol/L (98-107); Creatinine, Serum 0.65 mg/dL (0.55-1.02); EST Glomerular Filtration Rate 96 mL/min (>60); Est Glom Filt Rate - Afr Amer 117 mL/min (>60); Globulin 3.5 g/dL (2.2-4.2); Glucose 86 mg/dL (74-106); Potassium 3.9 mmol/L (3.5-5.1); Protein, Total 6.6 g/dL (6.4-8.2); Sodium Level 140 mmol/L (136-145)
== END ==
LOC: OLS.ACW400 06:29
PROVIDERS: Referring Provider Family Medicine; Visit Provider Family Medicine
DX: S72.91XD Unspecified fracture of right femur, subsequent encounter for closed fracture with routine healing (principal); W19.XXXD Unspecified fall, subsequent encounter; M62.81 Muscle weakness (generalized); Z96.641 Presence of right artificial hip joint
CPT/HCPCS: 36415; 80053; 85025

== ENCOUNTER → 2023-10-27 05:00 | Outpatient (REF) | payer MEDICARE, MEDICAID, SELFPAY ==
[2023-10-27 11:57] LABS: Hemoglobin A1c 5.1 % (3.8-5.6)
== END ==
LOC: OLS.ACW400 05:00
PROVIDERS: Visit Provider Family Medicine
DX: M62.81 Muscle weakness (generalized) (principal); S72.91XD Unspecified fracture of right femur, subsequent encounter for closed fracture with routine healing; W19.XXXD Unspecified fall, subsequent encounter; Z96.641 Presence of right artificial hip joint
CPT/HCPCS: 36415; 83036

== ENCOUNTER → 2023-11-30 | Outpatient (REF) | payer MEDICARE, MEDICAID, SELFPAY ==
[2023-11-30 11:19] LABS: Cholesterol 140 mg/dL (200); High Density Lipoprotein 78 mg/dL; Triglycerides 64 mg/dL; Very Low Density Lipoprotein 13 mg/dL (5-40)
== END ==
LOC: OLS.ACW400 05:00
PROVIDERS: Visit Provider Family Medicine
DX: S72.91XD Unspecified fracture of right femur, subsequent encounter for closed fracture with routine healing (principal); M62.81 Muscle weakness (generalized)
CPT/HCPCS: 36415; 80061

== ENCOUNTER → 2024-01-06 | Outpatient (REF) | payer MEDICARE, MEDICAID, SELFPAY ==
[2024-01-06 08:39] LABS: ALB/GLOB Ratio 0.9 RATIO (0.9-2.4); AST(SGOT) 14 U/L (15-37); Alanine Aminotransfer ALT/SGPT 21 U/L (13-56); Albumin, Serum 3.3 g/dL (3.2-5.0); Alkaline Phosphatase 60 U/L (45-117); Anion Gap 4 (5-15); BUN 15 mg/dL (7-18); BUN/Creat Ratio 19.9 RATIO (10-20); Calcium,Total 8.8 mg/dL (8.5-10.1); Chloride 107 mmol/L (98-107); Cholesterol 115 mg/dL (200); Creatinine, Serum 0.75 mg/dL (0.55-1.02); EST Glomerular Filtration Rate 81 mL/min (>60); Est Glom Filt Rate - Afr Amer 98 mL/min (>60); Globulin 3.8 g/dL (2.2-4.2); Glucose 94 mg/dL (74-106); High Density Lipoprotein 73 mg/dL; Potassium 3.9 mmol/L (3.5-5.1); Protein, Total 7.1 g/dL (6.4-8.2); Sodium Level 141 mmol/L (136-145); Triglycerides 46 mg/dL; Very Low Density Lipoprotein 9 mg/dL (5-40)
== END ==
LOC: OLS.ACW400 04:00
PROVIDERS: Referring Provider Family Medicine; Visit Provider Family Medicine
DX: M62.81 Muscle weakness (generalized) (principal); S72.91XD Unspecified fracture of right femur, subsequent encounter for closed fracture with routine healing
CPT/HCPCS: 36415; 80053; 80061; 84443

== ENCOUNTER → 2024-02-19 | Outpatient (REF) | payer MEDICARE, MEDICAID, SELFPAY ==
[2024-02-22 09:15] LABS: Color, Urine Yellow (Yellow); Glucose, Dipstick Normal (Normal); Ketone-Dipstick Negative (Negative); Leukocyte Esterase-Dipstick 25 /ul (Negative); Nitrite-Dipstick Positive (Negative); Occult Blood-Urine 10 /ul (Negative); Protein-Dipstick 15 mg/dl (Negative); Specific Gravity, Urine 1.025 (1.002-1.030); Urine Bilirubin Dipstick Negative (Negative); Urine Clarity Sl. Cloudy (Clear); Urine Urobilinogen Normal (Normal)
== END ==
LOC: OLS.ACW400 20:00
PROVIDERS: Visit Provider Family Medicine
DX: N39.0 Urinary tract infection, site not specified (principal)
CPT/HCPCS: 81002; 87077; 87086; 87088; 87186

== ENCOUNTER → 2024-03-24 19:30 | Outpatient (REF) | payer MEDICARE, MEDICAID, SELFPAY ==
[2024-03-25 08:53] LABS: Color, Urine Yellow (Yellow); Glucose, Dipstick Normal (Normal); Ketone-Dipstick Negative (Negative); Leukocyte Esterase-Dipstick 100 /ul (Negative); Nitrite-Dipstick Positive (Negative); Occult Blood-Urine 10 /ul (Negative); Protein-Dipstick 30 mg/dl (Negative); Specific Gravity, Urine 1.025 (1.002-1.030); Urine Bilirubin Dipstick Negative (Negative); Urine Clarity Sl. Cloudy (Clear); Urine Urobilinogen Normal (Normal)
== END ==
LOC: OLS.ACW400 19:30
PROVIDERS: Visit Provider Family Medicine
DX: S72.91XD Unspecified fracture of right femur, subsequent encounter for closed fracture with routine healing (principal); W19.XXXD Unspecified fall, subsequent encounter; M62.81 Muscle weakness (generalized); Z96.641 Presence of right artificial hip joint
CPT/HCPCS: 81002; 87077; 87086; 87088; 87186

== ENCOUNTER → 2024-03-28 05:00 | Outpatient (REF) | payer MEDICARE, MEDICAID, SELFPAY ==
[2024-03-28 09:53] LABS: Hematocrit 37.5 % (37-47); Hemoglobin 11.2 g/dL (12.0-15.0); Mean Corp Hgb Conc 29.9 g/dL (32-36); Mean Corpuscular Hgb 26.2 pg (27.0-32.0); Mean Corpuscular Volume 87.6 fL (81-99); Mean Platelet Vol. 9.7 fl (6.2-12.0); Platelet Count 472 K/mm3 (150-450); RBC Distribution Width CV 15.1 % (11.6-14.6); RBC Distribution Width SD 48.3 fl (35.1-43.9); Red Blood Count 4.28 M/mm3 (4.2-5.4); White Blood Count 11.8 K/mm3 (4.4-11.0)
[2024-03-28 11:01] LABS: Anion Gap 6 (5-15); BUN 19 mg/dL (7-18); BUN/Creat Ratio 31.2 RATIO (10-20); Calcium,Total 9.1 mg/dL (8.5-10.1); Chloride 106 mmol/L (98-107); Cholesterol 123 mg/dL (200); Creatinine, Serum 0.61 mg/dL (0.55-1.02); EST Glomerular Filtration Rate 103 mL/min (>60); Est Glom Filt Rate - Afr Amer 125 mL/min (>60); Glucose 87 mg/dL (74-106); High Density Lipoprotein 77 mg/dL; Potassium 3.5 mmol/L (3.5-5.1); Sodium Level 141 mmol/L (136-145); Triglycerides 66 mg/dL; Very Low Density Lipoprotein 13 mg/dL (5-40)
== END ==
LOC: OLS.ACW400 05:00
PROVIDERS: Visit Provider Family Medicine
DX: J44.9 Chronic obstructive pulmonary disease, unspecified (principal)
CPT/HCPCS: 36415; 80048; 80061; 84443; 85027

== ENCOUNTER → 2024-04-04 05:00 | Outpatient (REF) | payer MEDICARE, MEDICAID, SELFPAY ==
[2024-04-04 09:20] LABS: Absolute Lymphocyte Count 4.45 X10^3/uL (0.83-4.51); Absolute Neutrophil Count 4.4 X10^3/uL (2.0-7.7); Basophil# 0.02 X10^3/uL; Basophil% 0.2 % (0-1); Hematocrit 35.3 % (37-47); Hemoglobin 10.8 g/dL (12.0-15.0); Lymphocyte # 4.45 X10^3/ul (0.83-4.51); Lymphocyte % 44.7 % (19-41); Mean Corp Hgb Conc 30.6 g/dL (32-36); Mean Corpuscular Hgb 26.7 pg (27.0-32.0); Mean Corpuscular Volume 87.2 fL (81-99); Mean Platelet Vol. 10.2 fl (6.2-12.0); Monocyte# 0.96 X10^3/uL; Monocyte% 9.6 % (0-10); NRBC Flagged by Analyzer 0 % (0-5); Neutrophil % 44.3 % (47-70); Platelet Count 331 K/mm3 (150-450); RBC Distribution Width SD 48.2 fl (35.1-43.9); Red Blood Count 4.05 M/mm3 (4.2-5.4)
== END ==
LOC: OLS.ACW400 05:00
PROVIDERS: Visit Provider Family Medicine
DX: S72.91XD Unspecified fracture of right femur, subsequent encounter for closed fracture with routine healing (principal); W19.XXXD Unspecified fall, subsequent encounter; M62.81 Muscle weakness (generalized); Z96.641 Presence of right artificial hip joint
CPT/HCPCS: 36415; 85025

== ENCOUNTER → 2024-09-26 05:00 | Outpatient (REF) | payer MEDICARE, MEDICAID, SELFPAY ==
[2024-09-26 08:59] LABS: Hematocrit 34.2 % (37-47); Hemoglobin 10.6 g/dL (12.0-15.0); Mean Corp Hgb Conc 31.0 g/dL (32-36); Mean Corpuscular Volume 88.4 fL (81-99); Mean Platelet Vol. 9.7 fl (6.2-12.0); Platelet Count 410 K/mm3 (150-450); RBC Distribution Width CV 14.6 % (11.6-14.6); RBC Distribution Width SD 47.0 fl (35.1-43.9); Red Blood Count 3.87 M/mm3 (4.2-5.4); White Blood Count 11.2 K/mm3 (4.4-11.0)
[2024-09-26 09:18] LABS: Anion Gap 11 (5-15); BUN 15 mg/dL (4-19); BUN/Creat Ratio 22.9 RATIO (10-20); Calcium,Total 8.9 mg/dL (7.6-11.0); Carbon Dioxide 24.5 mmol/L (21.0-32.0); Chloride 106 mmol/L (98-108); Cholesterol 128 mg/dL (<=200); Glucose 81 mg/dL (70-99); Low Density Lipoprotein Calc. 43 mg/dL; Potassium 3.7 mmol/L (3.3-5.1); Triglycerides 74 mg/dL; Very Low Density Lipoprotein 15 mg/dL (5-40); cholesterol:hdl ratio screen 1.82
== END ==
LOC: OLS.ACW400 05:00
PROVIDERS: Visit Provider Family Medicine
DX: J44.9 Chronic obstructive pulmonary disease, unspecified (principal)
CPT/HCPCS: 36415; 80048; 80061; 84443; 85027

== ENCOUNTER → 2024-09-29 05:00 | Outpatient (REF) | payer MEDICARE, MEDICAID, SELFPAY ==
--- OUTSIDE RECORDS SUMMARY | 2024-09-29 04:31 | XMS RPT_ITS | CCD ---
Author Organization [facility] ion [facility] Care Team Providers Care Chemists Name Role Phone PROVIDER, UNKNOWN Referring Unavailable No, PCP Primary Care Unavailable Garry Jackson Attending Unavailable PROVIDER, UNKNOWN Referring Unavailable No, PCP Primary Care Unavailable CLAU SANTORO Attending Unavailable CLAU SANTORO Attending Unavailable PROVIDER, UNKNOWN Referring Unavailable No, PCP Primary Care Unavailable ARUN MCLAUGHLIN Admitting Unavailable WALE GUTIERREZ Attending Unavailable Precious PARRISH, Kelly Unavailable Unavailable YASMANY ROMAN Admitting Unavailable YASMANY ROMAN Attending Unavailable YASMANY ROMAN Attending Unavailable Morris Carr Primary Care Provider KIZZY GARSIA Admitting Unavailable RANDEE OLIVER Consulting Unavailable SAVANNA LUTZ Attending Unavailable MORRIS CARR Primary Care Unavailable TONY HERNANDEZ Consulting Unavailab Morris Morris Attending Unavailable Morris Roberson Attending Unavailable Morris Roberson Referring Unavailable Morris Roberson Attending Unavailable Morris Roberson Attending Unavailable Morris Roberson Attending Unavailable Morris Roberson Attending Unavailable Morris Roberson Attending Unavailable Morris Roberson Attending Unavailable Medications Current Medications Medication Drug Class(es) Dates Sig (Normalized) Sig (Original) acetaminophen 325 mg oral tablet (5 sources) Start: 01-26-2023 End: 02-05-2023 take 2 tablets by mouth every six hours as needed for pain and fever acetaminophen (Tylenol) 325 MG tablet Take 2 tablets (650 mg) by mouth every 6 hours as needed for mild pain (1-3) or fever (For temp greater than 100.4 F (38 C)) for up to 10 days. 0 01/26/2023 02/05/2023 Active Start: 01-24-2023 End: 01-26-2023 take 1 tablet by mouth every six hours as needed for pain and fever acetaminophen (Tylenol) tablet 650 mg acetaminophen 32 5 mg cap Take 1,000 mg by mouth as needed. 0 Active Comment on above: Take 1,000 mg by simi th as needed. calcium polycarbophil 625 mg oral tablet (3 sources) take 1 tablet by mouth once daily polycarbophil (Fibercon) 625 MG tablet Take 625 mg by mouth daily. 0 Active Comment on above: Take 625 mg by mouth daily at bedtime. D-Mannose (Azo D-Mannose) 500 MG capsule (2 sources) take 1 capsule by mouth once in the morning, then take 1 capsule by mouth once in the evening D-Mannose (Azo D-Mannose) 500 MG capsule Take 500 mg by mouth in the morning and 500 mg in the evening. 0 Active 0.4 ml enoxaparin sodium 100 mg/ml prefilled syringe (4 sources) Low Molecular Weight Heparin Start: 023 End: 024 inject 0.4 mL by subcutaneous injection every twenty-four hours enoxaparin (Lovenox) 40 MG/0.4ML solution prefilled syringe Indications: Prophylaxis of Venous Thromboembolism Inject 0.4 mL (40 mg) under the skin every 24 hours. 0 01/26/2023 02/25/2023 Active Start: 01-26-2023 End: 01-26-2023 enoxaparin (Lovenox) syringe 40 mg lidocaine 0.04 mg/mg medicated patch (2 sources) Antiarrhythmic, Amide Local Anesthetic apply 1 dose transdermal route once daily Lidocaine (HM Lidocaine Patch) 4 % patch Place 1 patch on the skin daily. Apply to lower back 0 Active LORazepam 0.5 mg oral tablet (11 sources) Benzodiazepine Start: 01-27-20 End: 02-03-20 LORazepam (Ativan) 0.5 MG tablet Indications: Anxiety Take 1 tablet (0.5 mg) by mouth 2 times daily at 0800 and 1400 for 7 days. 14 tablet 0 01/26/2023 02/02/2023 Active Start: 01-24-2023 End: 01-26-2023 take 1 mg by mouth twice daily 1 mg, Oral, [address] 8&2, First dose on 01/24/23 at 0800 End: 01-24-2023 LORazepam (Ativan) 0.5 MG ta blet Take by mouth. 0 01/24/2023 Discontinued take 0.5 mg by mouth three times daily LORazepam (ATIVAN) 0.5 mg Take 0.5 mg by mouth three times daily. 0 Active Comment on above: Take 0.5 mg by mouth three times daily. polyethylene glycol 3350 [id number] mg powder for oral solution (4 sources) Osmotic Laxative Start: 3 End: 3 take 17 g by mouth every twenty-four hours as needed polyethylene glycol, PEG, 3350 (Miralax) 17 g packet Take 17 g by mouth Daily as needed (constipation) for up to 3 days. 0 01/26/2023 01/29/2023 Active pregabalin 100 mg oral capsule (6 sources) Start: 3 End: 4 take 1 capsule by mouth three times daily pregabalin (Lyrica) 100 MG capsule Indications: Left arm pain Take 1 capsule (100 mg) by mouth 3 times daily. 90 capsule 0 01/26/2023 02/25/2023 Active Start: 01-24-2023 End: 01-26-2023 take 100 mg by mouth three times daily 100 mg, Oral, 3 times daily, First dose on 01/24/23 at 0900 Completed/Discontinued Medications Medication Drug Class(es) Dates Sig (Normalized) Sig (Original) amylase 37081 unt / lipase 6000 unt / protease 11323 unt delayed release oral capsule (1 source) lipase-protease- a mylase (CREON 6) 6,000-19,000 -30,000 unit delayed release capsule Take by mouth twice daily with meals. Please administer with snacks- and with snacks 3xday PRN 0 Active Comment on above: Take by mouth twice daily with meals. Please administer with snacks- and with snacks 3xday PRN aspirin 81 mg delayed release oral tablet (4 sources) Platelet Aggregation Inhibitor, Nonsteroidal Anti-inflammatory Drug Start: 01-24-2023 End: 01-26-2023 take 81 mg by mouth once daily 81 mg, Oral, Daily, First dose on 01/24/23 at 0900, Do not crush, chew, or split. atorvastatin 20 mg oral tablet (5 sources) HMG-CoA Reductase Inhibitor Start: 01-24-2023 End: 01-26-2023 take 20 mg by mouth once daily 20 mg, Oral, Daily, First dose on 01/24/23 at 0800 Comment on above: Take 20 mg by mouth once daily. 24 hr buPROPion hydrochloride 150 mg extended release oral tablet (5 sources) Aminoketone Start: 01-24-2023 End: 01-26-2023 take 150 mg by mouth once daily 150 mg, Oral, Daily, First dose on 01/24/23 at 0900, Do not crush, chew, or split. Comment on above: Take 150 mg by mouth daily at bedtime. ceFAZolin 2000 mg injection (2 sources) Cephalosporin Antibacterial Start: 01-25-2023 End: 01-26-2023 take 2000 mg intravenously every eight hours 2,000 mg, IntraVENous, Administer over 30 Minutes, Every 8 hours, First dose on 01/25/23 at 1600, For 24 hours, Phase II/On Unit, premix bag, Suspected Indication (Select all that apply): Surgical Prophylaxis citalopram 40 mg oral tablet (5 sources) Serotonin Reuptake Inhibitor Start: 01-24-2023 End: 01-26-2023 take 20 mg by mouth once daily 20 mg, Oral, Daily, First dose on 01/24/23 at 0900 take 2 tablets by mouth once jazmyne ly citalopram (CeleXA) 10 MG tablet Take 20 mg by mouth daily. 0 Active take 1 tablet by mouth once maddison y citalopram (CELEXA) 20 mg tablet Take 20 mg by mouth once daily. 0 Active Comment on above: Take 20 mg by mouth once daily. d-mannose (AZO D-MANNOSE) 500 mg cap (1 source) take 1 capsule by mouth twice daily, then take 1 capsule by mouth once d-mannose (AZO D-MANNOSE) 500 mg cap Take 500 mg by mouth twice daily. 0 Active Comment on above: Take 500 mg by mouth twice daily. gabapentin 100 mg oral capsule (1 source) Anti-epileptic Agent take 2 capsules by mouth three times daily gabapentin (NEURONTIN) 100 mg capsule Take 200 mg by mouth three times daily. 0 Active Comment on above: Take 200 mg by mouth three times daily. 12 hr guaiFENesin 600 mg extended release oral tablet (1 source) take 1 tablet by mouth twice daily as needed, then take 1 tablet by mouth every twelve hours as needed guaiFENesin (MUCINEX) 600 mg 12 hr tablet Take 600 mg by mouth twice daily as needed for cold/allergy symptoms. 0 Active Comment on above: Take 600 mg by mouth twice daily as needed for cold/allergy symptoms. haloperidol 0.5 mg oral tablet (5 sources) Typical Antipsychotic Start: 01-25-20 End: 01-27-20 take 1 mg by mouth three times daily 1 mg, Oral, 3 times daily, First dose on 01/24/23 at 0900 take 1 tablet by simi th three times daily haloperidol (Haldol) 1 MG tablet Take 1 mg by mouth 3 times daily. 0 Active take 1 tablet by mouth four time s daily haloperidol (HALDOL) 0.5 mg tablet Take 0.5 mg by mouth four times daily. 0600/1200/1800/0000 0 Active Comment on above: Take 0.5 mg by mouth four times daily. 0600/1200/1800/0000 levothyroxine sodium 0.05 mg oral tablet (7 sources) l-Thyroxine Start: 019 End: 023 take 50 ug by mouth once daily before breakfast 50 mcg, Oral, Daily before breakfast, First dose on 01/24/23 at 0700, Tube feeding (TF) interaction, obtain physician order to manage, recommend holding TF for 30 minutes before and after dose. End: 01-24-2023 levothyroxine (Tirosint) 100 MCG capsule Take by mouth every morning (before breakfast). 0 01/24/2023 Discontinued Comment on above: Take 1 tablet by simi th DAILY (6 AM). melatonin 5 mg oral tablet (5 sources) Start: 01-24-2023 End: 01-26-2023 take 5 mg by mouth once daily as needed for sleep 5 mg, Oral, Nightly PRN, sleep, Starting on 01/24/23 at 0517 melatonin 1 mg t ablet Take 5 mg by mouth. 0 Active Comment on above: Take 5 mg by mouth. 1 ml morphine sulfate 4 mg/ml cartridge (2 sources) Opioid Agonist Start: 3 End: 3 morphine injection 2 mg 1 ml naloxone hydrochloride 0.4 mg/ml injection (2 sources) Opioid Antagonist Start: 3 End: 3 naloxone (Narcan) injection 0.4 mg ondansetron 4 mg oral tablet (1 source) Serotonin-3 Receptor Antagonist take 1 tablet by mouth every six hours as needed ondansetron (ZOFRAN) 4 mg tablet Take 4 mg by mouth every 6 hours as needed for nausea/vomiting. 0 Active Comment on above: Take 4 mg by mouth e very 6 hours as needed for nausea/vomiting. oxyCODONE hydrochloride 5 mg oral tablet (2 sources) Opioid Agonist Start: 3 End: 3 take 1 tablet by mouth every six hours as needed for pain oxyCODONE (Roxicodone) immediate release tablet 5 mg prazosin 1 mg oral tablet (1 source) alpha-Adrenergic Bibi take 1 mg by mouth once daily at bedtime prazosin HCl (PRAZOSIN ORAL) Take 1 mg by mouth daily at bedtime. 0 Active Comment on above: Take 1 mg by mouth d aily at bedtime. rivaroxaban 15 mg oral tablet (1 source) Factor Xa Inhibitor take 15 mg by mouth once daily in the evening rivaroxaban (XARELTO ORAL) Take 15 mg by mouth DAILY AT 6 PM. 0 Active Comment on above: Take 15 mg by mouth DAILY AT 6 PM. 1000 ml sodium chloride 9 mg/ml injection (4 sources) Start: 3 End: 3 sodium chloride 0.9 % infusion Start: 01-24-2023 End: 01-24-2023 sodium chloride 0.9 % bolus 500 mL Problems Active Problems Problem Classification Problem Date Documented Date Episodic/Chronic Anxiety disorders (4 sources) Anxiety; Translations: [Anxiety disorder, unspecified] Onset: 01-24-2023 01-26-2023 Chronic Cardiac dysrhythmias (2 sources) Tachycardia, unspecified; Translations: [Tachycardia, unspecified] Onset: 03-06-2018 Episodic Chronic obstructive pulmonary disease and bronchiectasis (1 source) Chronic obstructive pulmonary disease, unspecified; Translations: [Chronic obstructive pulmonary disease, unspecified] Onset: 04-04-2024 Chronic Delirium, dementia, and amnestic and other cognitive disorders (9 sources) Dementia; Translations: [Unspecified dementia without behavioral disturbance] Onset: 05-17-2018 05-19-2018 Chronic External cause codes: Fall (2 sources) Fall on same level, unspecified, initial encounter; Translations: [Fall on same level, unspecified, initial encounter] Onset: 03-06-2018 Fracture of neck of femur (hip) (4 sources) Closed fracture of femur, subcapital; Translations: [Unspecified intracapsular fracture of left femur, subsequent encounter for closed fracture with routine healing] Onset: 12-13-2021 Episodic Fracture of neck of femur (hip) (8 sources) Closed fracture of hip; Translations: [Fracture of unspecified part of neck of right femur, initial encounter for closed fracture] Onset: 01-24-2023 01-24-2023 Episodic Malaise and fatigue (2 sources) Other malaise; Translations: [Other malaise] Onset: 03-31-2018 Episodic Nutritional deficiencies (1 source) Deficiency of macronutrients; Translations: [Mild protein-calorie malnutrition] Onset: 05-12-2018 05-14-2018 Chronic Other circulatory disease (2 sources) Hypotension, unspecified; Translations: [Hypotension, unspecified] Onset: 03-06-2018 Episodic Other connective tissue disease (2 sources) Presence of right artificial hip joint; Translations: [Presence of right artificial hip joint] Onset: 11-04-2023 Chronic Other connective tissue disease (2 sources) Other symptoms and signs involving the musculoskeletal system; Translations: [Oth symptoms and signs involving the musculoskeletal system] Onset: 03-06-2018 Episodic Other connective tissue disease (4 sources) Pain in left arm; Translations: [Pain in left arm] Onset: 03-06-2018 Episodic Other connective tissue disease (4 sources) Pain in left arm; Translations: [Pain in left arm] Onset: 03-06-2018 01-26-2023 Episodic Other liver diseases (2 sources) Nonspecific elevation of levels of transaminase and lactic acid dehydrogenase [LDH]; Translations: [Nonspec elev of levels of transamns & lactic acid dehydrgnse] Onset: 03-31-2018 Episodic Other lower respiratory disease (2 sources) Hypoxia; Translations: [Hypoxemia] 01-24-2023 Episodic Other lower respiratory disease (2 sources) Hypoxemia; Translations: [Hypoxemia] Onset: 01-24-2023 Episodic Other non-traumatic joint disorders (2 sources) Effusion, unspecified joint; Translations: [Effusion, unspecified joint] Onset: 03-06-2018 Episodic Residual codes; unclassified (2 sources) Localized edema; Translations: [Localized edema] Onset: 03-31-2018 Episodic Screening and history of mental health and substance abuse codes (2 sources) Personal history of other mental and behavioral disorders; Translations: [Personal history of other mental and behavioral disorders] Onset: 03-06-2018 Episodic Septicemia (except in labor) (2 sources) Septicemia (except in labor) Onset: 05-10-2018 Past or Other Problems Problem Classification Problem Date Documented Da te Episodic/Chronic Deficiency and other anemia (1 source) Macrocytic anemia; Translations: [Nutritional anemia, unspecified] Onset: 05-19-2018 05-19-2018 Episodic E Codes: Fall (2 sources) Unspecified fall, subsequent encounter; Translations: [Unspecified fall, subsequent encounter] Onset: 02-26-2024 Episodic Fracture of lower limb (2 sources) Unspecified fracture of right femur, subsequent encounter for closed fracture with routine healing; Translations: [Unspecified fracture of right femur, subsequent encounter for closed fracture with routine healing] Onset: 02-26-2024 Episodic Fracture of upper limb (7 sources) Other displaced fracture of upper end of left humerus, initial encounter for closed fracture; Translations: [Unspecified fracture of upper end of left humerus, subsequent encounter for fracture with routine healing] Onset: 03-06-2018 05-14-2018 Episodic Open wounds of head; neck; and trunk (1 source) Finding of sacral region; Translations: [Unspecified open wound of lower back and pelvis without penetration into retroperitoneum, initial encounter] Onset: 05-10-2018 05-14-2018 Episodic Other connective tissue disease (2 sources) Muscle weakness (generalized); Translations: [Muscle weakness (generalized)] Onset: 02-26-2024 Episodic Other screening for suspected conditions (not mental disorders or infectious disease) (5 sources) Encounter for screening for lipoid disorders; Translations: [Encounter for screening for other disorder] Onset: 03-31-2018 05-19-2018 Episodic Urinary tract infections (1 source) Urinary tract infection, site not specified; Translations: [Urinary tract infection, site not specified] Onset: 04-04-2024 Episodic Results Test Name Value Interpretation Reference Range Facility No Panel InformationOrdered By: Morris Carr on 05-22-2023 Parathyroid Hormone (Intact) 94.2 pg/mL 18.4-80.1 [facility] Serum or plasma cortisol kevan surement (mass/volume)Ordered By: Morris Carr on 05-22-2023 Cortisol [Mass/Vol] 17.00 ug/dL 3.44-22.45 [facility] Comment on above: Adult (AM) 5.27 - 22 .45 ug/dL Adult (PM) 3.44 - 16.76 ug/dLPlease note revised CORTISOL reference range effective 2019. Clostridioides difficile nuc leic acid assay by PCROrdered By: Morris Carr on 05-15-2023 C. difficile DNA JEANA+probe Ql (Unsp spec) [facility] Basophil percentageOrdered B y: Morris Carr on 05-14-2023 Bilirubin [Mass/Vol] 0.20 mg/dL 0.20-1.00 [facility] Comment on above: For patients on eltr ombopag therapy, use of Dimension [place] TBIL is not recommended. Chloride [Moles/Vol] 111 mmol/L 98-107 [facility] Glucose [Mass/Vol] 86 mg/dL 74-106 [facility] Hemoglobin (Bld) [Mass/Vol] 10.0 g/dL 12.0-15.0 [facility] Potassium [Moles/Vol] 3.7 mmol/L 3.5-5.1 [facility] Protein [Mass/Vol] 6.3 g/dL 6.4-8.2 [facility] Sodium [Moles/Vol] 143 mmol/L 136-145 [facility] WBC (Bld) [#/Vol] 10.8 10*3/uL 4.4-11.0 [facility] Determination of erythrocyte mean corpuscular volume (MCV)Ordered By: Morris Carr on 05-14-2023 MCV (RBC) [Entitic vol] 85.1 fL 81-99 [facility] Erythrocyte distribution wid th ratioOrdered By: Morris Carr on 05-14-2023 Erythrocyte distribution width (RBC) [Ratio] 16.7 % 11.6-14.6 [facility] Erythrocyte distribution wid th standard deviationOrdered By: Morris Carr on 05-14-2023 Erythrocyte distribution width (RBC) [Entitic vol] 52.1 fL 35.1-43.9 [facility] Hematocrit Auto (Bld) [Volum e fraction]Ordered By: Morris Carr on 05-14-2023 Hematocrit (Bld) [Volume fraction] 33.7 % 37-47 [facility] Laboratory - Chemistry and C hemistry - challengeOrdered By: Morris Carr on 05-14-2023 Albumin/Globulin [Mass ratio] 0.8 {ratio} 0.9-2.4 [facility] ALP [Catalytic activity/Vol] 83 U/L 45-117 [facility] ALT [Catalytic activity/Vol] 9 U/L 13-56 [facility] CO2 [Moles/Vol] 27.0 mmol/L 21.0-32.0 [facility] Globulin (S) [Mass/Vol] 3.6 g/dL 2.2-4.2 [facility] Urea nitrogen/Creatinine [Mass ratio] 20.6 mg/mg 10-20 [facility] Laboratory - Hematology and Cell countsOrdered By: Morris Carr on 05-14-2023 MCH (RBC) [Entitic mass] 25.3 pg 27.0-32.0 [facility] MCHC (RBC) [Mass/Vol] 29.7 g/dL 32-36 [facility] Platelet mean volume (Bld) [Entitic vol] 10.5 fL 6.2-12.0 [facility] Platelets (Bld) [#/Vol] 406 10*3/uL 150-450 [facility] No Panel InformationOrdered By: Morris Carr on 05-14-2023 Estimated GFR (MDRD) Amer 95 mL/min >60 [facility] Comment on above: GFR Calc Estimated GFR (MDRD) Non-Af Amer 78 mL/min >60 [facility] Comment on above: Non- GFR Calc RBC Auto (Bld) [#/Vol]Ordere d By: Morris Carr on 05-14-2023 RBC (Bld) [#/Vol] 3.96 10*6/uL 4.2-5.4 [facility] Serum or plasma calcium raul urement (mass/volume)Ordered By: Morris Carr on 05-14-2023 Calcium [Mass/Vol] 8.7 mg/dL 8.5-10.1 [facility] Serum or plasma cortisol kevan surement (mass/volume)Ordered By: Morris Carr on 05-14-2023 Cortisol [Mass/Vol] 20.50 ug/dL 3.44-22.45 [facility] Comment on above: Adult (AM) 5.27 - 22 .45 ug/dL Adult (PM) 3.44 - 16.76 ug/dLPlease note revised CORTISOL reference range effective 2019. Serum or plasma creatinine m easurement (mass/volume)Ordered By: Morris Carr on 05-14-2023 Creatinine [Mass/Vol] 0.78 mg/dL 0.55-1.02 [facility] Comment on above: The validity of the calculated GFR & GFRAA in patients over 70 years has not been determined. Clinical correlation is essential. Serum or plasma thyroid stim ulating hormone (TSH) measurement (units/volume)Ordered By: Morris Carr on 05-14-2023 TSH Qn 1.01 uIU/mL 0.358-3.74 [facility] Serum or plasma urea nitroge n measurement (mass/volume)Ordered By: Morris Carr on 05-14-2023 Urea nitrogen [Mass/Vol] 16 mg/dL 7-18 [facility] Thin prep Papanicolaou smear with manual screeningOrdered By: Morris Carr on 05-14-2023 Thin prep Papanicolaou smear with manual screening 2.7 g/dL 3.2-5.0 [facility] Thin prep Papanicolaou smear with manual screening 14 U/L 15-37 [facility] Thin prep Papanicolaou smear with manual screening 5 5-15 [facility] Basophil percentageOrdered B y: Morris Carr on 05-06-2023 Bilirubin [Mass/Vol] 0.40 mg/dL 0.20-1.00 [facility] Comment on above: For patients on eltr ombopag therapy, use of Dimension [place] TBIL is not recommended. Chloride [Moles/Vol] 108 mmol/L 98-107 [facility] Glucose [Mass/Vol] 88 mg/dL 74-106 [facility] Hemoglobin (Bld) [Mass/Vol] 10.8 g/dL 12.0-15.0 [facility] Potassium [Moles/Vol] 4.3 mmol/L 3.5-5.1 [facility] Protein [Mass/Vol] 6.9 g/dL 6.4-8.2 [facility] Sodium [Moles/Vol] 142 mmol/L 136-145 [facility] WBC (Bld) [#/Vol] 8.7 10*3/uL 4.4-11.0 [facility] Determination of erythrocyte mean corpuscular volume (MCV)Ordered By: Morris Carr on 05-06-2023 MCV (RBC) [Entitic vol] 85.3 fL 81-99 [facility] Erythrocyte distribution wid th ratioOrdered By: Morris Carr on 05-06-2023 Erythrocyte distribution width (RBC) [Ratio] 15.9 % 11.6-14.6 [facility] Erythrocyte distribution wid th standard deviationOrdered By: Morris Carr on 05-06-2023 Erythrocyte distribution width (RBC) [Entitic vol] 50.3 fL 35.1-43.9 [facility] Hematocrit Auto (Bld) [Volum e fraction]Ordered By: Morris Carr on 05-06-2023 Hematocrit (Bld) [Volume fraction] 36.7 % 37-47 [facility] Laboratory - Chemistry and C hemistry - challengeOrdered By: Morris Carr on 05-06-2023 Albumin/Globulin [Mass ratio] 0.7 {ratio} 0.9-2.4 [facility] ALP [Catalytic activity/Vol] 88 U/L 45-117 [facility] ALT [Catalytic activity/Vol] 11 U/L 13-56 [facility] CO2 [Moles/Vol] 30.0 mmol/L 21.0-32.0 [facility] Globulin (S) [Mass/Vol] 4.0 g/dL 2.2-4.2 [facility] Urea nitrogen/Creatinine [Mass ratio] 16.5 mg/mg 10-20 [facility] Laboratory - Hematology and Cell countsOrdered By: Morris Carr on 05-06-2023 MCH (RBC) [Entitic mass] 25.1 pg 27.0-32.0 [facility] MCHC (RBC) [Mass/Vol] 29.4 g/dL 32-36 [facility] Platelet mean volume (Bld) [Entitic vol] 10.1 fL 6.2-12.0 [facility] Platelets (Bld) [#/Vol] 464 10*3/uL 150-450 [facility] No Panel InformationOrdered By: Morris Carr on 05-06-2023 Estimated GFR (MDRD) Amer 102 mL/min >60 [facility] Comment on above: GFR Calc Estimated GFR (MDRD) Non-Af Amer 85 mL/min >60 [facility] Comment on above: Non- GFR Calc RBC Auto (Bld) [#/Vol]Ordere d By: Morris Carr on 05-06-2023 RBC (Bld) [#/Vol] 4.30 10*6/uL 4.2-5.4 [facility] Serum or plasma calcium raul urement (mass/volume)Ordered By: Morris Carr on 05-06-2023 Calcium [Mass/Vol] 9.0 mg/dL 8.5-10.1 [facility] Serum or plasma creatinine m easurement (mass/volume)Ordered By: Morris Carr on 05-06-2023 Creatinine [Mass/Vol] 0.73 mg/dL 0.55-1.02 [facility] Comment on above: The validity of the calculated GFR & GFRAA in patients over 70 years has not been determined. Clinical correlation is essential. Serum or plasma urea nitroge n measurement (mass/volume)Ordered By: Morris Carr on 05-06-2023 Urea nitrogen [Mass/Vol] 12 mg/dL 7-18 [facility] Thin prep Papanicolaou smear with manual screeningOrdered By: Morirs Carr on 05-06-2023 Thin prep Papanicolaou smear with manual screening 2.9 g/dL 3.2-5.0 [facility] Thin prep Papanicolaou smear with manual screening 9 U/L 15-37 [facility] Thin prep Papanicolaou smear with manual screening 4 5-15 [facility] Basophil percentageOrdered B y: Morris Carr on 03-18-2023 Chloride [Moles/Vol] 110 mmol/L 98-107 [facility] Glucose [Mass/Vol] 88 mg/dL 74-106 [facility] Hemoglobin (Bld) [Mass/Vol] 11.0 g/dL 12.0-15.0 [facility] Potassium [Moles/Vol] 3.7 mmol/L 3.5-5.1 [facility] Sodium [Moles/Vol] 140 mmol/L 136-145 [facility] WBC (Bld) [#/Vol] 8.6 10*3/uL 4.4-11.0 [facility] Determination of erythrocyte mean corpuscular volume (MCV)Ordered By: Morris Carr on 03-18-2023 MCV (RBC) [Entitic vol] 86.6 fL 81-99 [facility] Erythrocyte distribution wid th ratioOrdered By: Morris Carr on 03-18-2023 Erythrocyte distribution width (RBC) [Ratio] 13.9 % 11.6-14.6 [facility] Erythrocyte distribution wid th standard deviationOrdered By: Morris Carr on 03-18-2023 Erythrocyte distribution width (RBC) [Entitic vol] 44.2 fL 35.1-43.9 [facility] Hematocrit Auto (Bld) [Volum e fraction]Ordered By: Morris Carr on 03-18-2023 Hematocrit (Bld) [Volume fraction] 36.9 % 37-47 [facility] Laboratory - Chemistry and C hemistry - challengeOrdered By: Morris Carr on 03-18-2023 CO2 [Moles/Vol] 28.0 mmol/L 21.0-32.0 [facility] Urea nitrogen/Creatinine [Mass ratio] 15.9 mg/mg 10-20 [facility] Laboratory - Hematology and Cell countsOrdered By: Morris Carr on 03-18-2023 MCH (RBC) [Entitic mass] 25.8 pg 27.0-32.0 [facility] MCHC (RBC) [Mass/Vol] 29.8 g/dL 32-36 [facility] Platelets (Bld) [#/Vol] 348 10*3/uL 150-450 [facility] No Panel InformationOrdered By: Morris Carr on 03-18-2023 Estimated GFR (MDRD) Amer 98 mL/min >60 [facility] Comment on above: GFR Calc Estimated GFR (MDRD) Non-Af Amer 81 mL/min >60 [facility] Comment on above: Non- GFR Calc Platelet mean volume Danny-Ec ker (Bld) [Entitic vol]Ordered By: Morris Carr on 03-18-2023 Platelet mean volume (Bld) [Entitic vol] 10.4 fL 6.2-12.0 [facility] RBC Auto (Bld) [#/Vol]Ordere d By: Morris Carr on 03-18-2023 RBC (Bld) [#/Vol] 4.26 10*6/uL 4.2-5.4 [facility] Serum or plasma calcium raul urement (mass/volume)Ordered By: Morris Carr on 03-18-2023 Calcium [Mass/Vol] 9.4 mg/dL 8.5-10.1 [facility] Serum or plasma creatinine m easurement (mass/volume)Ordered By: oMrris Carr on 03-18-2023 Creatinine [Mass/Vol] 0.76 mg/dL 0.55-1.02 [facility] Comment on above: The validity of the calculated GFR & GFRAA in patients over 70 years has not been determined. Clinical correlation is essential. Serum or plasma urea nitroge n measurement (mass/volume)Ordered By: Morris Carr on 03-18-2023 Urea nitrogen [Mass/Vol] 12 mg/dL 7-18 [facility] Thin prep Papanicolaou smear with manual screeningOrdered By: Morris Carr on 03-18-2023 Thin prep Papanicolaou smear with manual screening 2 5-15 [facility] Basophil percentageOrdered B y: Morris Carr on 03-02-2023 Basophil percentage 10-25 SEEN /hpf 0-5 [facility] Bilirubin Test strip Ql (U)O rdered By: Morris Carr on 03-02-2023 Bilirubin Ql (U) Negative Negative [facility] Calcium oxalate crystals det ection in urine sediment by light microscopyOrdered By: Morris Carr on 03-02-2023 Calcium oxalate crystals LM Ql (Urine sed) 1+ /hpf [facility] Culture, urineOrdered By: Yarely Carr on 03-02-2023 Bacteria identified Cx Nom (U) Escherichia coli [facility] Ketones Test strip Ql (U)Ord ered By: Morris Carr on 03-02-2023 Ketones Ql (U) Negative Negative [facility] Mucus LM Ql (Urine sed)Order ed By: Morris Carr on 03-02-2023 Mucus Ql (Urine sed) 0 SEEN /hpf [facility] Nitrite Test strip Ql (U)Ord ered By: Morris Carr on 03-02-2023 Nitrite Ql (U) Positive Negative [facility] Protein Test strip Ql (U)Ord ered By: Morris Carr on 03-02-2023 Protein Ql (U) 15 mg/dl Negative [facility] Squamous epithelial cells de tection in urine sediment by light microscopyOrdered By: Morris Carr on 03-02-2023 Epithelial cells.squamous LM Ql (Urine sed) 0-5 SEEN /hpf 5-10 [facility] Urine blood detectionOrdered By: Morris Carr on 03-02-2023 RBC Ql (U) Negative Negative [facility] RBC Ql (U) 0 SEEN /hpf 0-5 [facility] Urine clarityOrdered By: Deshaun Carr on 03-02-2023 Clarity (U) Sl. Cloudy Clear [facility] Urine color determinationOrd ered By: Morris Carr on 03-02-2023 Color (U) Yellow Yellow [facility] Urine glucose detectionOrder ed By: Morris Carr on 03-02-2023 Glucose Ql (U) Normal mg/dl Normal [facility] Urine leukocyte esterase det ection by dipstickOrdered By: Morris Carr on 03-02-2023 Leukocyte esterase Test strip Ql (U) 100 /ul Negative [facility] Urine pHOrdered By: Morris paulino on 03-02-2023 pH (U) 6.0 [pH] 5.0 - 8.0 [facility] Urine sediment bacteria coun t by microscopy (number/high power field)Ordered By: Morris Carr on 03-02-2023 Bacteria LM.HPF (Urine sed) [#/Area] 3 /[HPF] None Seen [facility] Urine specific gravity measu rementOrdered By: Morris Carr on 03-02-2023 Specific gravity (U) [Rel density] 1.020 1.002-1.030 [facility] Urobilinogen Auto test strip Ql (U)Ordered By: Morris Carr on 03-02-2023 Urobilinogen Ql (U) Normal mg/dl Normal [facility] Basophil percentageOrdered B y: Morris Carr on 02-20-2023 Chloride [Moles/Vol] 110 mmol/L 98-107 [facility] Glucose [Mass/Vol] 83 mg/dL 74-106 [facility] Potassium [Moles/Vol] 4.0 mmol/L 3.5-5.1 [facility] Sodium [Moles/Vol] 144 mmol/L 136-145 [facility] WBC (Bld) [#/Vol] 8.1 10*3/uL 4.4-11.0 [facility] Blood erythrocytes count (nu mber/volume)Ordered By: Morris Carr on 02-20-2023 RBC (Bld) [#/Vol] 3.68 10*6/uL 4.2-5.4 [facility] Blood hemoglobin measurement (mass/volume)Ordered By: Morris Carr on 02-20-2023 Hemoglobin (Bld) [Mass/Vol] 9.8 g/dL 12.0-15.0 [facility] Blood platelet mean volumeOr dered By: Morris Carr on 02-20-2023 Platelet mean volume (Bld) [Entitic vol] 10.6 fL 6.2-12.0 [facility] Determination of erythrocyte mean corpuscular volume (MCV)Ordered By: Morris Carr on 02-20-2023 MCV (RBC) [Entitic vol] 90.5 fL 81-99 [facility] Hematocrit Auto (Bld) [Volum e fraction]Ordered By: Morris Carr on 02-20-2023 Hematocrit (Bld) [Volume fraction] 33.3 % 37-47 [facility] Laboratory - Chemistry and C hemistry - challengeOrdered By: Morris Carr on 02-20-2023 CO2 [Moles/Vol] 30.0 mmol/L 21.0-32.0 [facility] Urea nitrogen/Creatinine [Mass ratio] 12.7 mg/mg 10-20 [facility] Laboratory - Hematology and Cell countsOrdered By: Morris Carr on 02-20-2023 Erythrocyte distribution width (RBC) [Entitic vol] 46.7 fL 35.1-43.9 [facility] Erythrocyte distribution width (RBC) [Ratio] 14.0 % 11.6-14.6 [facility] MCH (RBC) [Entitic mass] 26.6 pg 27.0-32.0 [facility] MCHC Auto (RBC) [Mass/Vol]Or dered By: Morris Carr on 02-20-2023 MCHC (RBC) [Mass/Vol] 29.4 g/dL 32-36 [facility] No Panel InformationOrdered By: Morris Carr on 02-20-2023 Estimated GFR (MDRD) Amer 105 mL/min >60 [facility] Comment on above: GFR Calc Estimated GFR (MDRD) Non-Af Amer 87 mL/min >60 [facility] Comment on above: Non- GFR Calc Platelets bldOrdered By: Deshaun Carr on 02-20-2023 Platelets (Bld) [#/Vol] 352 10*3/uL 150-450 [facility] Serum or plasma calcium raul urement (mass/volume)Ordered By: Morris Carr on 02-20-2023 Calcium [Mass/Vol] 8.7 mg/dL 8.5-10.1 [facility] Serum or plasma creatinine m easurement (mass/volume)Ordered By: Morris Carr on 02-20-2023 Creatinine [Mass/Vol] 0.71 mg/dL 0.55-1.02 [facility] Comment on above: The validity of the calculated GFR & GFRAA in patients over 70 years has not been determined. Clinical correlation is essential. Serum or plasma urea nitroge n measurement (mass/volume)Ordered By: Morris Carr on 02-20-2023 Urea nitrogen [Mass/Vol] 9 mg/dL 7-18 [facility] Thin prep Papanicolaou smear with manual screeningOrdered By: Morris Carr on 02-20-2023 Thin prep Papanicolaou smear with manual screening 4 5-15 [facility] Basophil percentageOrdered B y: Morris Carr on 02-13-2023 Chloride [Moles/Vol] 111 mmol/L 98-107 [facility] Glucose [Mass/Vol] 88 mg/dL 74-106 [facility] Potassium [Moles/Vol] 3.9 mmol/L 3.5-5.1 [facility] Sodium [Moles/Vol] 141 mmol/L 136-145 [facility] WBC (Bld) [#/Vol] 8.8 10*3/uL 4.4-11.0 [facility] Blood erythrocytes count (nu mber/volume)Ordered By: Morris Carr on 02-13-2023 RBC (Bld) [#/Vol] 3.96 10*6/uL 4.2-5.4 [facility] Blood hemoglobin measurement (mass/volume)Ordered By: Morris Carr on 02-13-2023 Hemoglobin (Bld) [Mass/Vol] 10.8 g/dL 12.0-15.0 [facility] Blood platelet mean volumeOr dered By: Morris Carr on 02-13-2023 Platelet mean volume (Bld) [Entitic vol] 10.1 fL 6.2-12.0 [facility] Determination of erythrocyte mean corpuscular volume (MCV)Ordered By: Morris Carr on 02-13-2023 MCV (RBC) [Entitic vol] 88.6 fL 81-99 [facility] Hematocrit Auto (Bld) [Volum e fraction]Ordered By: Morris Carr on 02-13-2023 Hematocrit (Bld) [Volume fraction] 35.1 % 37-47 [facility] Laboratory - Chemistry and C hemistry - challengeOrdered By: Morris Carr on 02-13-2023 CO2 [Moles/Vol] 24.0 mmol/L 21.0-32.0 [facility] Urea nitrogen/Creatinine [Mass ratio] 12.6 mg/mg 10-20 [facility] Laboratory - Hematology and Cell countsOrdered By: Morris Carr on 02-13-2023 Erythrocyte distribution width (RBC) [Entitic vol] 45.4 fL 35.1-43.9 [facility] Erythrocyte distribution width (RBC) [Ratio] 14.2 % 11.6-14.6 [facility] MCH (RBC) [Entitic mass] 27.3 pg 27.0-32.0 [facility] MCHC Auto (RBC) [Mass/Vol]Or dered By: Morris Carr on 02-13-2023 MCHC (RBC) [Mass/Vol] 30.8 g/dL 32-36 [facility] No Panel InformationOrdered By: Morris Carr on 02-13-2023 Estimated GFR (MDRD) Amer 93 mL/min >60 [facility] Comment on above: GFR Calc Estimated GFR (MDRD) Non-Af Amer 77 mL/min >60 [facility] Comment on above: Non- GFR Calc Platelets bldOrdered By: Deshaun Carr on 02-13-2023 Platelets (Bld) [#/Vol] 432 10*3/uL 150-450 [facility] Serum or plasma calcium raul urement (mass/volume)Ordered By: Morris Carr on 02-13-2023 Calcium [Mass/Vol] 8.8 mg/dL 8.5-10.1 [facility] Serum or plasma creatinine m easurement (mass/volume)Ordered By: Morris Carr on 02-13-2023 Creatinine [Mass/Vol] 0.79 mg/dL 0.55-1.02 [facility] Comment on above: The validity of the calculated GFR & GFRAA in patients over 70 years has not been determined. Clinical correlation is essential. Serum or plasma urea nitroge n measurement (mass/volume)Ordered By: Morris Carr on 02-13-2023 Urea nitrogen [Mass/Vol] 10 mg/dL 7-18 [facility] Thin prep Papanicolaou smear with manual screeningOrdered By: Morris Carr on 02-13-2023 Thin prep Papanicolaou smear with manual screening 6 5-15 [facility] Basophil percentageOrdered B y: Morris Carr on 01-30-2023 Chloride [Moles/Vol] 110 mmol/L 98-107 [facility] Glucose [Mass/Vol] 84 mg/dL 74-106 [facility] Potassium [Moles/Vol] 3.8 mmol/L 3.5-5.1 [facility] Sodium [Moles/Vol] 141 mmol/L 136-145 [facility] WBC (Bld) [#/Vol] 9.0 10*3/uL 4.4-11.0 [facility] Blood erythrocytes count (nu mber/volume)Ordered By: Morris Carr on 01-30-2023 RBC (Bld) [#/Vol] 3.31 10*6/uL 4.2-5.4 [facility] Blood hemoglobin measurement (mass/volume)Ordered By: Morris Carr on 01-30-2023 Hemoglobin (Bld) [Mass/Vol] 9.1 g/dL 12.0-15.0 [facility] Blood platelet mean volumeOr dered By: Morris Carr on 01-30-2023 Platelet mean volume (Bld) [Entitic vol] 10.4 fL 6.2-12.0 [facility] Determination of erythrocyte mean corpuscular volume (MCV)Ordered By: Morris Carr on 01-30-2023 MCV (RBC) [Entitic vol] 90.9 fL 81-99 [facility] Hematocrit Auto (Bld) [Volum e fraction]Ordered By: Morris Carr on 01-30-2023 Hematocrit (Bld) [Volume fraction] 30.1 % 37-47 [facility] Laboratory - Chemistry and C hemistry - challengeOrdered By: Morris Carr on 01-30-2023 CO2 [Moles/Vol] 29.0 mmol/L 21.0-32.0 [facility] Urea nitrogen/Creatinine [Mass ratio] 17.5 mg/mg 10-20 [facility] Laboratory - Hematology and Cell countsOrdered By: Morris Carr on 01-30-2023 Erythrocyte distribution width (RBC) [Entitic vol] 48.5 fL 35.1-43.9 [facility] Erythrocyte distribution width (RBC) [Ratio] 14.7 % 11.6-14.6 [facility] MCH (RBC) [Entitic mass] 27.5 pg 27.0-32.0 [facility] MCHC Auto (RBC) [Mass/Vol]Or dered By: Morris Carr on 01-30-2023 MCHC (RBC) [Mass/Vol] 30.2 g/dL 32-36 [facility] No Panel InformationOrdered By: Morris Carr on 01-30-2023 Estimated GFR (MDRD) Amer 100 mL/min >60 [facility] Comment on above: GFR Calc Estimated GFR (MDRD) Non-Af Amer 83 mL/min >60 [facility] Comment on above: Non- GFR Calc Platelets bldOrdered By: Deshaun Carr on 01-30-2023 Platelets (Bld) [#/Vol] 317 10*3/uL 150-450 [facility] Serum or plasma calcium raul urement (mass/volume)Ordered By: Mroris Carr on 01-30-2023 Calcium [Mass/Vol] 8.5 mg/dL 8.5-10.1 [facility] Serum or plasma creatinine m easurement (mass/volume)Ordered By: Morris Carr on 01-30-2023 Creatinine [Mass/Vol] 0.74 mg/dL 0.55-1.02 [facility] Comment on above: The validity of the calculated GFR & GFRAA in patients over 70 years has not been determined. Clinical correlation is essential. Serum or plasma urea nitroge n measurement (mass/volume)Ordered By: Morris Carr on 01-30-2023 Urea nitrogen [Mass/Vol] 13 mg/dL 7-18 [facility] Thin prep Papanicolaou smear with manual screeningOrdered By: Morris Carr on 01-30-2023 Thin prep Papanicolaou smear with manual screening 2 5-15 [facility] ECG 12-LEADon 01-27-2023 ECG 12-LEAD IMPRESSION: Sinus rhythm Electronically Signed On 01-27-2023 9:41:09 EST by Tatyana Rosales [facility] CARECOORDon 01-26-2023 CAR[facility]OORD Next Site of Care Admission Date: 01/24/2023 12:48 AM Patient Name: CLARIBEL STOLL Location: [place] [address] [id number] Date of : 1955 ---- Placement Information ---- Referral Type:Longterm/SNF - Return Referral ID:[id number] Provider Name:Nakul Address 1:[address] [place] [address] 180 Address 2: City:[place] Selection Factors:Returning to Facility State:[place] Normal [facility] MUD WORKER tasked to send discharge paperwork to [facility] hitesh Violet. Normal [facility] Discharge med list transmitted to Return [facility] hitesh CastroViolet via [facility]port per TCC request. [facility] f [facility], [facility], [facility], [facility], sister (Missy) were notified. [facility] Care Managment Initi al Assessment Date: 01/26/2023 Patient Name: Claribel Stoll : 1955 Patient Information Source of Information: Patient Director Of Entertainment Name/Contact Information: Missy Whitfield - Cognition/Language: Confused at baseline Permission given to speak with patient medical detail representative/caregiv er as indicated: Confirmation of Payer with patient/family: Yes Payer Name: [employer] Medicare : Confirmation of Primary Care Physician: Confirmed PCP Name: morris Carr Seen in last 2 years?: Yes Primary Caregiver: If assistance needed, confirmed caregiver ready, willing and able to care for patient at discharge: Confirmed with: lives at [facility] Living Arrangements Current Residence: Number of Floors Number of Entry Steps: Bed/Bath Levels: Facility: Longterm/Residental Care Facility Name: [facility] Plan to Return: Lives with: Other (Comment) Support Systems: Family members Activities of Daily Living Ambulation: Total Care Bathing/Dressing: Total Care Elimination/Continence /Toileting: Assistance Feeding: Assistance Who Assists with Activities of Daily Living: staff at [facility] Instrumental Activities of Daily Living Prescription Coverage: Pharmacy Used: Medication Management: Transportation/Shoppin g: Transportation Mode: Needs Assistance with Transportation at Discharge: Meal Preparation: Assistance Provider Meal Prep Assistance Provider Name: staff Laundry/Cleaning: Assistance Provider Laundry/Cleaning Assistance Provider Name: staff Finances/Bill Paying: Assistance Provider Finances/Bill Payer Assistance Provider Name: staff Communication: Independent Types of Care Services/Equipment Utilized Care Services: Dialysis Type: Durable Medical Equipment: Wheelchair (standard or power) Patient's Goal/Discharge Plan Patient expects to be discharged to: back to [facility] Discharge Planning Actions: No needs identified Patient's Choice Rights and [employer] and Collaborative Relationships Disclosed as Indicated for Post-Acute Care: Interdisciplinary Team Engagement: PT/OT Social Work Referral for: Additional Information: Patient remains on H6 after fall s/p [facility] 01/25/2023. Discharge order noted. Call placed to Missy Whitfield sister of patient. Missy answered admission questions. Patient lives at [facility] and uses a w/c at baseline, staff assists with all care. [facility] patient is at intermediate level of care and is a bedhold, able to take patient back today. tail board worker aware of need to transport. TCC to assist and follow as needed. Nyla Haider RN Normal [facility] CBC (HEMOGRAM)on 01-26-2023 Erythrocyte distribution width (RBC) [Ratio] 14.9 % High 11.5-14.5 [facility] Comment on above: Performed By: #### L [id number] ####Gambreler: NELSY PATEL ([id number])[address] ERYTHROCYTE MEAN CORPUSCULAR HEMOGLOBIN CONCENTRATION (G/DL) BY AUTOMATED 31.8 % Low 32.0-36.0 [facility] Comment on above: Performed By: #### L [id number] ####Gambreler: NELSY PATEL ([id number])[address] Hematocrit (Bld) [Volume fraction] 32.0 % Low 35.0-47.0 [facility] Comment on above: Performed By: #### L [id number] ####Gambreler: NELSY PATEL ([id number])[address] Hemoglobin (Bld) [Mass/Vol] 10.2 g/dL Low 11.7-16.0 [facility] Comment on above: Performed By: #### L [id number] ####Gambreler: NELSY PATEL ([id number])[address] MCH (RBC) [Entitic mass] 27.1 pg Normal 26.0-34.0 [facility] Comment on above: Performed By: #### L [id number] ####Gambreler: NELSY PATEL ([id number])[facility] ([facility])[address] [place] [address] MCV (RBC) [Entitic vol] 85.2 fL Normal 80.0-98.0 [facility] Comment on above: Performed By: #### L [id number] ####Gambreler: NELSY PATEL ([phone])[facility])[address] [place] [address] Platelet mean volume (Bld) [Entitic vol] 9.1 fL Normal 7.4-12.4 [facility] Comment on above: Performed By: #### L [id number] ####Gambreler: NELSY PATEL ([id number])[facility])[address] [place] [address] Platelets (Bld) [#/Vol] 259 10*3/uL Normal 140-440 [facility] Comment on above: Performed By: #### L [id number] ####Gambreler: NELSY PATEL ([id number])[facility] ([facility])[address] [place] [address] RBC (Bld) [#/Vol] 3.75 10*6/uL Low 3.8-5.20 [facility] Comment on above: Performed By: #### L [id number] ####Gambreler: NELSY PATEL ([id number])[facility])[address] [place] [address] WBC (Bld) [#/Vol] 14.7 10*3/uL High 3.6-10.7 [facility] Comment on above: Performed By: #### L [id number] ####Gambreler: NELSY PATEL ([id number])[facility])[address] [place] [address] CBC panel Auto (Bld)on 01-26 Erythrocyte distribution width (RBC) [Ratio] 14.9 % High 11.5 - 14.5 % [facility] Hematocrit (Bld) [Volume fraction] 32.0 % Low 35.0 - 47.0 % [facility] Hemoglobin (Bld) [Mass/Vol] 10.2 g/dL Low 11.7 - 16.0 g/dL [facility] Interpretation and review of laboratory results Abnormal [facility] MCH (RBC) [Entitic mass] 27.1 pg 26.0 - 34.0 pg [facility] MCHC (RBC) [Mass/Vol] 31.8 % Low 32.0 - 36.0 % [facility] MCV (RBC) [Entitic vol] 85.2 fL 80.0 - 98.0 fL [facility] Platelet mean volume (Bld) [Entitic vol] 9.1 fL 7.4 - 12.4 fL [facility] Platelets (Bld) [#/Vol] 259 10*3/uL 140 - 440 10*3/uL [facility] RBC (Bld) [#/Vol] 3.75 10*6/uL Low 3.8 - 5.20 10*6/uL [facility] WBC (Bld) [#/Vol] 14.7 10*3/uL High 3.6 - 10.7 10*3/uL [facility] COMPREHENSIVE METABOLIC PANE Janak 01-26-2023 Albumin [Mass/Vol] 3.6 g/dL Normal 3.5-5.0 [facility] Comment on above: Performed By: #### Greg RILEY, [id number] ####Gambreler: NELSY PATEL ([id number])[facility])[address] [place] [address] ALP [Catalytic activity/Vol] 70 U/L Normal 38-126 [facility] Comment on above: Performed By: #### Greg RILEY, [id number] ####Gambreler: NELSY PATEL ([id number])[facility] ([facility])[address] [place] [address] ALT [Catalytic activity/Vol] 11 U/L Normal 0-34 [facility] Comment on above: Performed By: #### Greg DEL [id number], [id number] ####Gambreler: NELSY PATEL ([id number])[facility] ([facility])[address] [place] [address] Anion gap [Moles/Vol] 8 mmol/L Normal 3-13 [facility] Comment on above: Performed By: #### Greg RILEY, [id number] ####Gambreler: NELSY PATEL ([phone])[facility])[address] [place] [address] AST [Catalytic activity/Vol] 28 U/L Normal 15-46 [facility] Comment on above: Performed By: #### Greg RILEY, [id number] ####Gambreler: NELSY PATEL ([id number])[facility] ([facility])[address] [place] [address] Bilirubin [Mass/Vol] 0.8 mg/dL Normal 0.2-1.3 [facility] Comment on above: Performed By: #### Greg RILEY, [id number] ####Gambreler: NELSY PATEL ([id number])[facility] ([facility])[address] [place] [address] Calcium [Mass/Vol] 8.7 mg/dL Normal 8.4-10.4 [facility] Comment on above: Performed By: #### Greg RILEY, [id number] ####Gambreler: NELSY PATEL ([id number])[facility] ([facility])[address] [place] [address] [place] Chloride [Moles/Vol] 104 mmol/L Normal 98-107 [facility] Comment on above: Performed By: #### Greg RILEY, [id number] ####Gambreler: NELSY PATEL ([phone])[facility] ([facility])[address] [place] [address] [place] CO2 [Moles/Vol] 24 mmol/L Normal 22-30 [facility] Comment on above: Performed By: #### Greg AB17, [id number] ####Gambreler: NELSY PATEL ([phone])[facility])[address] [place] [address] Creatinine [Mass/Vol] 0.53 mg/dL Normal 0.52-1.04 [facility] Comment on above: Performed By: #### L AB17, [id number] ####Gambreler: NELSY PATEL ([phone])[facility] ([facility])[address] [place] [address] [place] GLOMERULAR FILTRATION RATE ML/MIN/1.73 SQ M.PREDICTED >90.0 Normal >60.0 [facility] Comment on above: Result Comment: Calc ulation based on the Chronic Kidney Disease Epidemiology Collaboration (CKD-EPI) equation refit without adjustment for race Performed By: #### Greg RILEY, [id number] ####Gambreler: NELSY PATEL ([phone])[facility] ([facility])[address] [place] [address] [place] Glucose [Mass/Vol] 129 mg/dL High 70-100 [facility] Comment on above: Performed By: #### Greg RILEY, [id number] ####Gambreler: NELSY PATEL ([phone])[facility] ([facility])[address] [place] [address] [place] Potassium [Moles/Vol] 3.9 mmol/L Normal 3.5-5.1 [facility] Comment on above: Performed By: #### Greg RILEY, [id number] ####Gambreler: NELSY PATEL ([phone])[facility] ([facility])[address] [place] [address] Protein [Mass/Vol] 6.9 g/dL Normal 6.3-8.2 [facility] Comment on above: Performed By: #### Greg RILEY, [id number] ####Gambreler: NELSY PATEL ([phone])[facility] ([facility])[address] [place] [address] [place] Sodium [Moles/Vol] 137 mmol/L Normal 135-145 [facility] Comment on above: Performed By: #### Greg RILEY, [id number] ####Gambreler: NELSY PATEL ([phone])[facility])[address] [place] [address] [place] Urea nitrogen [Mass/Vol] 12 mg/dL Normal 7-17 [facility] Comment on above: Performed By: #### L AB17, [id number] ####Gambreler: NELSY PATEL ([phone])[facility] ([address] HEAD WO IV CONTRASTon CT HEAD WO IV CONTRAST Patient Name: CLARIBEL STOLL : 1955 [id number] Exam Date/Time: 01/26/2023 02:15 Procedure: CT HEAD WO IV CONTRAST Ordering Provider: DOMÍNGUEZ THOMAS Reason For Exam: Mental status change, unknown cause CT HEAD WITHOUT CONTRAST CLINICAL INDICATION: Change in mental status Axial noncontrast CT images of the brain were obtained. Coronal and sagittal reconstructions were also made available for interpretation. Dose reduction was employed with automated exposure control. COMPARISON: January 24, 2023. FINDINGS: Mild diffuse cortical volume loss. Nonspecific periventricular and subcortical white matter hypodensities likely reflect areas of small vessel ischemic change in a patient of this age. No high attenuation material is seen to suggest hemorrhage. Stable right frontal lobe encephalomalacia, adjacent to the lateral ventricle anterior horn. No definite evidence for acute cortical infarction. No midline shift or mass effect is noted. No fracture is identified on the bone windows. The paranasal sinuses are clear. Atherosclerotic calcification of the carotid siphons is noted. IMPRESSION: 1. Stable CT head. No evidence of an acute intracranial process. 2. Mild volume loss. Periventricular and subcortical leukomalacia likely reflects areas of small vessel ischemic change. Report Dictated on Electronically Signed By: Jluis Barrera MD Electronically Signed Date/Time: 01/26/2023 2:57 AM EST Normal [facility] CT Head WO contraston [address] head. No evidence of an acute intracranial process. 2. Mild volume loss. Periventricular and subcortical leukomalacia likely reflects areas of small vessel ischemic change. Report Dictated on Electronically Signed By: Jluis Barrera MD Electronically Signed Date/Time: 01/26/2023 2:57 AM EST [facility] Patient Name: CLARIBEL STOLL : 1955 Exam Date/Time: 01/26/2023 02:15 Procedure: CT HEAD WO IV CONTRAST Ordering Provider: DOMÍNGUEZ THOMAS Reason For Exam: Mental status change, unknown cause CT HEAD WITHOUT CONTRAST CLINICAL INDICATION: Change in mental status Axial noncontrast CT images of the brain were obtained. Coronal and sagittal reconstructions were also made available for interpretation. Dose reduction was employed with automated exposure control. COMPARISON: January 24, 2023. FINDINGS: Mild diffuse cortical volume loss. Nonspecific periventricular and subcortical white matter hypodensities likely reflect areas of small vessel ischemic change in a patient of this age. No high attenuation material is seen to suggest hemorrhage. Stable right frontal lobe encephalomalacia, adjacent to the lateral ventricle anterior horn. No definite evidence for acute cortical infarction. No midline shift or mass effect is noted. No fracture is identified on the bone windows. The paranasal sinuses are clear. Atherosclerotic calcification of the carotid siphons is noted. [facility] Jluis Barrera MD - 01/26/2023 Patient Name: CLARIBEL STOLL : 1955 Exam Date/Time: 01/26/2023 02:15 Procedure: CT HEAD WO IV CONTRAST Ordering Provider: DOMÍNGUEZ THOMAS Reason For Exam: Mental status change, unknown cause CT HEAD WITHOUT CONTRAST CLINICAL INDICATION: Change in mental status Axial noncontrast CT images of the brain were obtained. Coronal and sagittal reconstructions were also made available for interpretation. Dose reduction was employed with automated exposure control. COMPARISON: January 24, 2023. FINDINGS: Mild diffuse cortical volume loss. Nonspecific periventricular and subcortical white matter hypodensities likely reflect areas of small vessel ischemic change in a patient of this age. No high attenuation material is seen to suggest hemorrhage. Stable right frontal lobe encephalomalacia, adjacent to the lateral ventricle anterior horn. No definite evidence for acute cortical infarction. No midline shift or mass effect is noted. No fracture is identified on the bone windows. The paranasal sinuses are clear. Atherosclerotic calcification of the carotid siphons is noted. IMPRESSION: 1. Stable CT head. No evidence of an acute intracranial process. 2. Mild volume loss. Periventricular and subcortical leukomalacia likely reflects areas of small vessel ischemic change. Report Dictated on Electronically Signed By: Jluis Barrera MD Electronically Signed Date/Time: 01/26/2023 2:57 AM EST [facility] Radiology Study observation (narrative) [facility] Kenneth alth CT Head WO contrastOrdered B y: Jluis Barrera on 01-26-2023 [facility] Work Phone: Comprehensive metabolic 1998 panelon 01-26-2023 Albumin [Mass/Vol] 3.6 g/dL 3.5 - 5.0 g/dL [facility] ALP [Catalytic activity/Vol] 70 U/L 38 - 126 U/L [facility] ALT [Catalytic activity/Vol] 11 U/L 0 - 34 U/L [facility] Anion gap [Moles/Vol] 8 mmol/L 3 - 13 mmol/L [facility] AST [Catalytic activity/Vol] 28 U/L 15 - 46 U/L [facility] Bilirubin [Mass/Vol] 0.8 mg/dL 0.2 - 1 .3 mg/dL [facility] Calcium [Mass/Vol] 8.7 mg/dL 8.4 - 10. 4 mg/dL [facility] Chloride [Moles/Vol] 104 mmol/L 98 - 10 7 mmol/L [facility] CO2 [Moles/Vol] 24 mmol/L 22 - 30 mmol/L [facility] Creatinine [Mass/Vol] 0.53 mg/dL 0.52 - 1.04 mg/dL [facility] GFR/1.73 sq M.predicted MDRD (S/P/Bld) [Vol rate/Area] - PINF [facility] Comment on above: Calculation based on the Chronic Kidney Disease Epidemiology Collaboration (CKD-EPI) equation refit without adjustment for race Glucose [Mass/Vol] 129 mg/dL High 70 - 100 mg/dL [facility] Interpretation and review of laboratory results Abnormal [facility] Potassium [Moles/Vol] 3.9 mmol/L 3.5 - 5.1 mmol/L [facility] Protein [Mass/Vol] 6.9 g/dL 6.3 - 8.2 g/dL [facility] Sodium [Moles/Vol] 137 mmol/L 135 - 145 mmol/L [facility] Urea nitrogen [Mass/Vol] 12 mg/dL 7 - 17 mg/dL [facility] IDNon 01-26-2023 IDN Problem: Knowledge Deficit Goal: Patient/family/caregiv er demonstrates understanding of disease process, treatment plan, medications, and discharge instructions 01/26/2023 1457 by Yumi Feng RN Outcome: Completed 01/26/2023 1010 by Yumi Feng RN Outcome: Progressing Flowsheets (Taken 01/26/2023 1010) Patient/family/caregiv er demonstrates understanding of disease process, treatment plan, medications, and discharge instructions: Complete learning assessment and assess knowledge base Provide teaching via preferred learning methods Problem: Potential for Compromised Skin Integrity Goal: Skin Integrity is Maintained or Improved 01/26/2023 1457 by Yumi Feng RN Outcome: Completed 01/26/2023 1010 by Yumi Feng RN Outcome: Progressing Flowsheets (Taken 01/26/2023 1010) Skin integrity is maintained or improved: Assess and monitor skin integrity Relieve pressure to bony prominences Goal: Nutritional status is improving Outcome: Completed Problem: Urinary Incontinence Goal: Perineal skin integrity is maintained or improved Outcome: Completed Normal [facility] IDN Problem: Knowledge Deficit Goal: Patient/family/caregiv er demonstrates understanding of disease process, treatment plan, medications, and discharge instructions Outcome: Progressing Flowsheets (Taken 01/26/2023 1010) Patient/family/caregiv er demonstrates understanding of disease process, treatment plan, medications, and discharge instructions: Complete learning assessment and assess knowledge base Provide teaching via preferred learning methods Problem: Potential for Compromised Skin Integrity Goal: Skin Integrity is Maintained or Improved Outcome: Progressing Flowsheets (Taken 01/26/2023 1010) Skin integrity is maintained or improved: Assess and monitor skin integrity Relieve pressure to bony prominences Normal [facility] IDN Called to see patien t for decreased mental status, confusion. Patient had a hemiarthroplasty of right hip on 01/25/2023. Patient Ativan at 1328, Oxycodone at 1506, Haldol at [address] Domínguez was up to see patient, requested Rapid response come up to assess neuro status. Upon our arrival, patient awake in bed, responds to name. Patient has hx dementia. Unable to state age correctly, states she is at [facility] . She does not recall why she is here. She moves upper extremities upon command, no drift. Right leg is operative leg, follows commands with left leg. Sensation intact. Pupils equal and react briskly to light . No facial assymmetry, no gaze palsy, visual field intact with threat. Speech clear. She can answer some questions appropriately while conversing. Denies any pain at this time. No focal deficits noted. Mbs 145. VSS. In NAD. Dr Domínguez updated. Order received for Narcan. This was given , no improvement in mental status. Order received for CT scan Normal [facility] Laboratory - Chemistry and C hemistry - challengeon 01-26-2023 Troponin I.cardiac [Mass/Vol] ng/mL NINF - 0.034 ng/mL [facility] Glucose [Mass/Vol] 145 mg/dL High 70 - 100 mg/dL [facility] No Panel Informationon 01-26 Interpretation and review of laboratory results Abnormal [facility] Performed by: [facility], [address] [place] [address] CLIA ID: [id number] [facility] Nursing Noteon 01-26-2023 Nursing Note Pt alertness decline d over shift, Dr Domínguez up to assess the patient. CONTROL ANALYST notified per Dr Domínguez. CONTROL ANALYST up to assess the patient. Narcan given per order with no change. Pt taken down to CT. Normal [facility] Progress Noteon 01-26-2023 Progress Note Nutrition rescreen completed. Chart reviewed. Patient to be monitored and followed by the diet dispensary technician. CONNOR Canales Normal [facility] Progress Note Paged to Pt for concern of mental status change control coordinator the course of the evening. Pt POD #0 for hemiarthroplasty of hip hip. Has received Oxycodone 5mg, scheduled Haldol and Lyrica approximately 5hrs ago. On arrival to . Pt sleeping, heavily, slow to rouse w/ tactile stimulation. Takes approx 10sec to response but does so appropriately w/ Yes/No answers. Minimal movement of arms, legs but does make attempt to move limbs, smile during my assessment. - Lats CT from 01/24 negative for acute process. Initial concern is for oversedation - Per RN Pt has been progressively less responsive since the beginning of her shift - no reported acute mental status change or specific neural focal deficit. To be through will request formal NIHSS assessment by Rapid Response, Administer IV Narcan to determine (Pt does have Haldol Lyrica on board) and will order STAT CT Head for this mental status change Normal [facility] TROPONIN, WITH SERIAL REFLEX on 01-26-2023 Troponin I.cardiac [Mass/Vol] ng/mL Normal <0.034 [facility] Comment on above: Result Comment: ELVIA Diaz COMMENTS: Patients with high levels of Biotin oral intake (ie >5 mg/day) may have falsely decreased Troponin levels. Performed By: #### L AB17, [id number] ####Gambreler: NELSY PATEL ([phone])[address] Troponin I.cardiac [Mass/Vol ]on 01-26-2023 Interpretation and review of laboratory results Normal [facility] Patients with high levels of Biotin oral intake (ie >5 mg/day) may have falsely decreased Troponin levels. [facility] BASIC METABOLIC PANELon 12-0 Anion gap [Moles/Vol] 9 mmol/L Normal 3-13 [facility] Comment on above: Performed By: #### L [id number] ####Gambreler: NELSY PATEL ([phone])[facility])[address] [place] [address] Calcium [Mass/Vol] 8.4 mg/dL Normal 8.4-10.4 [facility] Comment on above: Performed By: #### L [id number] ####Gambreler: NELSY PATEL ([phone])[facility])[address] [place] [address] Chloride [Moles/Vol] 105 mmol/L Normal 98-107 [facility] Comment on above: Performed By: #### L [id number] ####Gambreler: NELSY PATEL ([phone])[facility])[address] [place] [address] [place] CO2 [Moles/Vol] 21 mmol/L Low 22-30 [facility] Comment on above: Performed By: #### L [id number] ####Gambreler: NELSY PATEL ([phone])[facility] ([facility])[address] [place] [address] Creatinine [Mass/Vol] 0.58 mg/dL Normal 0.52-1.04 [facility] Comment on above: Performed By: #### L [id number] ####Gambreler: NELSY PATEL ([phone])[facility] ([facility])[address] [place] [address] GLOMERULAR FILTRATION RATE ML/MIN/1.73 SQ M.PREDICTED >90.0 Normal >60.0 [facility] Comment on above: Result Comment: Calc ulation based on the Chronic Kidney Disease Epidemiology Collaboration (CKD-EPI) equation refit without adjustment for race Performed By: #### L [id number] ####Gambreler: NELSY PATEL ([phone])[facility] ([facility])[address] [place] [address] Glucose [Mass/Vol] 97 mg/dL Normal 70-100 [facility] Comment on above: Performed By: #### L [id number] ####Gambreler: NELSY PATEL ([phone])[facility] ([facility])[address] [place] [address] Potassium [Moles/Vol] 3.8 mmol/L Normal 3.5-5.1 [facility] Comment on above: Performed By: #### L [id number] ####Gambreler: NELSY PATEL ([phone])[facility] ([facility])[address] [place] [address] [place] Sodium [Moles/Vol] 135 mmol/L Normal 135-145 [facility] Comment on above: Performed By: #### L [id number] ####Gambreler: NELSY PATEL ([phone])[facility] ([facility])[address] [place] [address] [place] Urea nitrogen [Mass/Vol] 14 mg/dL Normal 7-17 [facility] Comment on above: Performed By: #### L [id number] ####Gambreler: NELSY PATEL ([phone])[facility] ([id number] Basic metabolic 1998 panelon 01-25-2023 Anion gap [Moles/Vol] 9 mmol/L 3 - 13 mmol/L [facility] Calcium [Mass/Vol] 8.4 mg/dL 8.4 - 10. 4 mg/dL [facility] Chloride [Moles/Vol] 105 mmol/L 98 - 10 7 mmol/L [facility] CO2 [Moles/Vol] 21 mmol/L Low 22 - 30 mmol/L [facility] Creatinine [Mass/Vol] 0.58 mg/dL 0.52 - 1.04 mg/dL [facility] GFR/1.73 sq M.predicted MDRD (S/P/Bld) [Vol rate/Area] - PINF [facility] Comment on above: Calculation based on the Chronic Kidney Disease Epidemiology Collaboration (CKD-EPI) equation refit without adjustment for race Glucose [Mass/Vol] 97 mg/dL 70 - 100 mg/dL [facility] Interpretation and review of laboratory results Abnormal [facility] Potassium [Moles/Vol] 3.8 mmol/L 3.5 - 5.1 mmol/L [facility] Sodium [Moles/Vol] 135 mmol/L 135 - 145 mmol/L [facility] Urea nitrogen [Mass/Vol] 14 mg/dL 7 - 17 mg/dL [facility] CBC W Auto Differential pane l (Bld)Ordered By: Garry Rangel on 01-25-2023 Basophils (Bld) [#/Vol] 0.1 10*3/uL 0.0 - 0.2 10*3/uL [facility] Basophils/100 WBC (Bld) 0.8 % 0.0 - 2.0 % [facility] Eosinophils (Bld) [#/Vol] 0.6 10*3/uL High 0.0 - 0.5 10*3/uL [facility] Eosinophils/100 WBC (Bld) 5.6 % 1.0 - 6.0 % [facility] Erythrocyte distribution width (RBC) [Ratio] 15.0 % High 11.5 - 14.5 % [facility] Hematocrit (Bld) [Volume fraction] 32.9 % Low 35.0 - 47.0 % [facility] Hemoglobin (Bld) [Mass/Vol] 10.4 g/dL Low 11.7 - 16.0 g/dL [facility] Interpretation and review of laboratory results Abnormal [facility] Lymphocytes (Bld) [#/Vol] 2.5 10*3/uL 1.0 - 4.3 10*3/uL [facility] Lymphocytes/100 WBC (Bld) 23.1 % 20.0 - 40.0 % [facility] MCH (RBC) [Entitic mass] 27.4 pg 26.0 - 34.0 pg [facility] MCHC (RBC) [Mass/Vol] 31.7 % Low 32.0 - 36.0 % [facility] MCV (RBC) [Entitic vol] 86.3 fL 80.0 - 98.0 fL [facility] Monocytes (Bld) [#/Vol] 1.1 10*3/uL High 0.0 - 0.8 10*3/uL [facility] Monocytes/100 WBC (Bld) 9.8 % 2.0 - 10.0 % [facility] Neutrophils (Bld) [#/Vol] 6.6 10*3/uL 1.8 - 7.0 10*3/uL [facility] Neutrophils/100 WBC (Bld) 60.7 % 40.0 - 80.0 % [facility] Nucleated RBC/100 WBC (Bld) [Ratio] 0.1 % [facility] Platelet mean volume (Bld) [Entitic vol] 8.2 fL 7.4 - 12.4 fL [facility] Platelets (Bld) [#/Vol] 250 10*3/uL 140 - 440 10*3/uL [facility] RBC (Bld) [#/Vol] 3.81 10*6/uL 3.8 - 5.20 10*6/uL [facility] WBC (Bld) [#/Vol] 10.9 10*3/uL High 3.6 - 10.7 10*3/uL [facility] CBC WITH AUTO DIFFERENTIALon 01-25-2023 Basophils (Bld) [#/Vol] 0.1 10*3/uL Normal 0.0-0.2 [facility] Comment on above: Performed By: #### L [id number] ####Gambreler: NELSY PATEL ([phone])[facility])[address] [place] [address] Basophils/100 WBC (Bld) 0.8 % Normal 0.0-2.0 S [facility] Comment on above: Performed By: #### L [id number] ####Gambreler: NELSY PATEL ([phone])[facility])[address] [place] [address] Eosinophils (Bld) [#/Vol] 0.6 10*3/uL High 0.0-0.5 [facility] Comment on above: Performed By: #### L [id number] ####Gambreler: NELSY PATEL ([phone])[facility])[address] [place] [address] Eosinophils/100 WBC (Bld) 5.6 % Normal 1.0-6.0 [facility] Comment on above: Performed By: #### L [id number] ####Gambreler: NELSY PATEL ([phone])[facility])[address] [place] [address] Erythrocyte distribution width (RBC) [Ratio] 15.0 % High 11.5-14.5 [facility] Comment on above: Performed By: #### L [id number] ####Gambreler: NELSY PATEL ([phone])[facility])[address] [place] [address] ERYTHROCYTE MEAN CORPUSCULAR HEMOGLOBIN CONCENTRATION (G/DL) BY AUTOMATED 31.7 % Low 32.0-36.0 [facility] Comment on above: Performed By: #### L [id number] ####Gambreler: NELSY PATEL ([phone])[facility])[address] [place] [address] Hematocrit (Bld) [Volume fraction] 32.9 % Low 35.0-47.0 [facility] Comment on above: Performed By: #### L [id number] ####Gambreler: NELSY PATEL ([id number])[facility])[address] [place] [address] Hemoglobin (Bld) [Mass/Vol] 10.4 g/dL Low 11.7-16.0 [facility] Comment on above: Performed By: #### L [id number] ####Gambreler: NELSY PATEL ([phone])[facility])[address] [place] [address] Lymphocytes (Bld) [#/Vol] 2.5 10*3/uL Normal 1.0-4.3 [facility] Comment on above: Performed By: #### L [id number] ####Gambreler: NELSY PATEL ([phone])[address] Lymphocytes/100 WBC (Bld) 23.1 % Normal 20.0-40.0 [facility] Comment on above: Performed By: #### L [id number] ####Gambreler: NELSY PATEL ([id number])[facility])[address] [place] [address] MCH (RBC) [Entitic mass] 27.4 pg Normal 26.0-34.0 [facility] Comment on above: Performed By: #### L [id number] ####Gambreler: NELSY PATEL ([phone])[facility])[address] [place] [address] MCV (RBC) [Entitic vol] 86.3 fL Normal 80.0-98.0 S [facility] Comment on above: Performed By: #### L [id number] ####Gambreler: NELSY PATEL ([id number])[facility])[address] [place] [address] Monocytes (Bld) [#/Vol] 1.1 10*3/uL High 0.0-0.8 [facility] Comment on above: Performed By: #### L [id number] ####Gambreler: NELSY PATEL ([phone])[facility])[address] [place] [address] Monocytes/100 WBC (Bld) 9.8 % Normal 2.0-10.0 [facility] Comment on above: Performed By: #### L [id number] ####Gambreler: NELSY PATEL ([phone])[facility])[address] [place] [address] Neutrophils (Bld) [#/Vol] 6.6 10*3/uL Normal 1.8-7.0 [facility] Comment on above: Performed By: #### L [id number] ####Gambreler: NELSY PATEL ([phone])[facility])[address] [place] [address] Neutrophils/100 WBC (Bld) 60.7 % Normal 40.0-80.0 [facility] Comment on above: Performed By: #### L [id number] ####Gambreler: NELSY PATEL ([phone])[facility])[address] [place] [address] NRBC (PER 100 WBCS) BY AUTOMATED COUNT 0.1 /100 WBCs Normal 0.0-2.0 [facility] Comment on above: Performed By: #### L [id number] ####Gambreler: NELSY PATEL ([phone])[facility])[address] [place] [address] Platelet mean volume (Bld) [Entitic vol] 8.2 fL Normal 7.4-12.4 [facility] Comment on above: Performed By: #### L [id number] ####Gambreler: NELSY PATEL ([phone])[facility])[address] [place] [address] [place] Platelets (Bld) [#/Vol] 250 10*3/uL Normal 140-440 [facility] Comment on above: Performed By: #### L [id number] ####Gambreler: NELSY PATEL ([phone])[facility])[address] [place] [address] [place] RBC (Bld) [#/Vol] 3.81 10*6/uL Normal 3.8-5.20 [facility] Comment on above: Performed By: #### L [id number] ####Gambreler: NELSY PATEL ([phone])[facility] ([facility])[address] [place] [address] WBC (Bld) [#/Vol] 10.9 10*3/uL High 3.6-10.7 [facility] Comment on above: Performed By: #### L [id number] ####Gambreler: NELSY PATEL ([phone])[facility] ([facility])[address] [place] [address] Laboratory - Coagulationon 1 03-28-2022 aPTT Coag (PPP) [Time] 26.3 s 20.0 - 30.5 s [facility] INR Coag (PPP) [Relative time] 1.0 {INR} 0.9 - 1.1 [facility] Comment on above: Recommended Anticoag ulant Therapy: SEE BELOW ----- INR of 2.0 - 3.0 : - Prophylaxis of Venous Thrombosis (high-risk surgery) - Treatment of Venous Thrombosis - Treatment of Pulmonary Embolism (Includes tissue heart valves, Acute Myocardial Infarction to prevent systemic embolism, Valvular Heart Disease, and Atrial Fibrillation) ----- INR of 2.5 - 3.5 : - Mechanical Prosthetic Valves (high risk) - If oral anticoagulant therapy is used to prevent Myocardial Infarction PT Coag (Bld) [Time] 10.7 s 9.0 - 12.0 s [facility] No Panel Informationon 01-25 Interpretation and review of laboratory results Normal [facility] Nursing Noteon 01-25-2023 Nursing Note Pt to floor with transport, nad, resp non labored, alert and denies any pain Normal [facility] Nursing Note Report called to floor, transport initiated Normal [facility] Op Noteon 01-25-2023 Op Note [facility] OR [address] [facility] [address] Dept: [phone] Loc: [phone] Operative Report Patient Name: Claribel Stoll Date of : 1955 Date of Surgery: 01/25/23 Pre-operative diagnosis: Right displaced femoral neck fracture Post-operative diagnosis: Same Procedure(s): Cemented hemiarthroplasty of right hip (CPT 54222) Surgeon: Randee Oliver M.D. Axle Polisher(s): Jericho Maradiaga M.D. Anesthesia: General EBL: 50 cc IVF: Crystalloid Medications: Ancef 2 grams IV Implants: Burden N Nephew Conquest stem size 10 standard, Head size -3 Clinical History/Indication for Surgery The patient is a 67 y.o. year old female who was presents for operative fixation of a displaced femoral neck fracture. Typical indications for surgery were reviewed and hemiarthroplasty was recommended. Risks of surgery in general were reviewed including, but not limited to, infection, fracture, subsidence, instability, need for additional procedures, failure of fixation which would require revision, damage to normal structures as well as medical complications such as NH, stroke, PE, DVT, and even . Patient and any family present were given opportunity to ask questions and consider her options ultimately electing to proceed with surgery. No guarantees were given or implied. Operative Narration The patient was identified in the pre-operative holding area. The surgical site was identified and marked. Informed consent was obtained. The patient was then brought to the operating room and placed supine on the operating table. Anesthesia was administered and care of the head, neck, and airway was maintained by the anesthesia staff throughout the entire procedure. Patient was turned lateral decubitus with the operative hip facing up. Axillary roll was placed. All bony prominences were identified and padded. The operative leg was prepped and draped in the usual sterile fashion. A surgical timeout was performed. Antibiotics were confirmed to have been given. A posterior approach to the hip was made incising skin and subcutaneous tissues down to the iliotibial band. This was divided in line with skin and carried into the gluteus ron fascia. The muscle was split along its fibers with finger dissection. The Charnley was placed after palpating and protecting the sciatic nerve. With the medius retracted, the short external rotators and posterior hip capsule were reflected from the posterior femoral neck until the lesser could be palpated and the hip was exposed. This dissection was curved posteriorly along the superior margin of the piriformis. Labrum was not incised. With retractors in place, the femoral neck cut was made approximately one finger breadth above the lesser trochanter. The femoral head was removed and sized and any remaining neck fragments were excised. Two tagging sutures were placed into the piriformis and posterior capsule for later repair through drill holes. With the leg internally rotated, the proximal femur was prepared starting with the box osteotome and canal finder. Baton reamers were passed until cortical chatter was obtained followed by sequential broaching until the last broach obtained good fit within the femur. A trial reduction was performed to ensure correct leg length, hip stability, and soft tissue tensioning. Once appropriate sizing was completed the hip was dislocated and the trial components were removed. The canal was irrigated and dried and a cement restrictor placed approximately 1cm distal to the centralizer. After filling the canal and pressurizing, the final implants were impacted in standard fashion and held until cement was cured. Final reduction was performed. Two drill holes were made in the greater trochanter and final irrigation performed. The postero-superior limb of the capsulotomy was closed with interrupted #2 Ethibond sutures. The two tagging sutures were then pulled thought the greater trochanter and tied with the hip in external rotation. Layered closure was performed including iliotibial band, subcutaneous tissues and skin. A sterile dressing was applied. The patient was turned supine. Blankets were placed between the knees. Once the patient was awakened from anesthesia, they were transported to the PACU in stable condition, having tolerated surgery well with no immediate complications. This operative report was prepared and signed by Randee Oliver MD at 01/25/23, 9:17 AM Post op Plan: WBAT DVT prophylaxis Abx x 24hrs Posterior hip precautions x 6 wks Normal [facility] PROTIME AND APTTon 3 aPTT Coag (Bld) [Time] 26.3 s Normal 20.0-30.5 [facility] Comment on above: Performed By: #### L [id number] ####Gambreler: NELSY PATEL ([phone])[facility] ([facility])[address] [place] [address] INR Coag (PPP) [Relative time] 1.0 {INR} Normal 0.9-1.1 [facility] Comment on above: Result Comment: Shaun mmended Anticoagulant Therapy: SEE BELOW ----- INR of 2.0 - 3.0 : - Prophylaxis of Venous Thrombosis (high-risk surgery) - Treatment of Venous Thrombosis - Treatment of Pulmonary Embolism (Includes tissue heart valves, Acute Myocardial Infarction to prevent systemic embolism, Valvular Heart Disease, and Atrial Fibrillation) ----- INR of 2.5 - 3.5 : - Mechanical Prosthetic Valves (high risk) - If oral anticoagulant therapy is used to prevent Myocardial Infarction Performed By: #### L [id number] ####Gambreler: NELSY PATEL ([phone])[facility] ([facility])[address] [place] [address] PT Coag (PPP) [Time] 10.7 s Normal 9.0-12.0 [facility] Comment on above: Performed By: #### L [id number] ####Gambreler: NELSY PATEL ([phone])[facility] ([facility])[address] [place] [address] XR HIP 2 OR 3 VW RIGHTon XR HIP 2 OR 3 VW RIGHT Patient Name: CLARIBEL STOLL : 1955 Exam Date/Time: 01/25/2023 10:42 Procedure: XR HIP 2 OR 3 VW RIGHT Ordering Provider: SINGH PALLAVI Reason For Exam: post-op RIGHT HIP: CLINICAL INDICATION: Right hip fracture. Postoperative radiographs. TECHNIQUE: AP view the pelvis, two views right hip COMPARISON: Previous day IMPRESSION: FINDINGS/IMPRESSION: Limitations: No significant limitations. Right hip hemiarthroplasty prosthesis appears well seated without evidence of complication. Expected postsurgical changes in the overlying soft tissues. Left hip hemiarthroplasty prosthesis appears intact. Shelley catheter in place. Moderate amount retained colonic stool. Degenerative spondylosis in the visualized spine. Degenerative changes in the sacroiliac joints. Report Dictated on Electronically Signed By: Anselmo Calvo MD Electronically Signed Date/Time: 01/25/2023 11:48 AM EST Normal [facility] XR Hip - right 3 Viewson FINDINGS/IMPRESSION: Limitations: No significant limitations. Right hip hemiarthroplasty prosthesis appears well seated without evidence of complication. Expected postsurgical changes in the overlying soft tissues. Left hip hemiarthroplasty prosthesis appears intact. Shelley catheter in place. Moderate amount retained colonic stool. Degenerative spondylosis in the visualized spine. Degenerative changes in the sacroiliac joints. Report Dictated on Electronically Signed By: Anselmo Calvo MD Electronically Signed Date/Time: 01/25/2023 11:48 AM [facility] Patient Name: CLARIBEL STOLL : 1955 Exam Date/Time: 01/25/2023 10:42 Procedure: XR HIP 2 OR 3 VW RIGHT Ordering Provider: SINGH PALLAVI Reason For Exam: post-op RIGHT HIP: CLINICAL INDICATION: Right hip fracture. Postoperative radiographs. TECHNIQUE: AP view the pelvis, two views right hip COMPARISON: Previous day [facility] Genoveva Calvo MD - 01/25/2023 Patient Name: CLARIBEL STOLL : 1955 Exam Date/Time: 01/25/2023 10:42 Procedure: XR HIP 2 OR 3 VW RIGHT Ordering Provider: SINGH PALLAVI Reason For Exam: post-op RIGHT HIP: CLINICAL INDICATION: Right hip fracture. Postoperative radiographs. TECHNIQUE: AP view the pelvis, two views right hip COMPARISON: Previous day IMPRESSION: FINDINGS/IMPRESSION: Limitations: No significant limitations. Right hip hemiarthroplasty prosthesis appears well seated without evidence of complication. Expected postsurgical changes in the overlying soft tissues. Left hip hemiarthroplasty prosthesis appears intact. Shelley catheter in place. Moderate amount retained colonic stool. Degenerative spondylosis in the visualized spine. Degenerative changes in the sacroiliac joints. Report Dictated on Electronically Signed By: Anselmo Calvo MD Electronically Signed Date/Time: 01/25/2023 11:48 AM [facility] Radiology Study observation (narrative) [facility] alth XR Hip - right 3 ViewsOrdere d By: Genoveva Calvo on 01-25-2023 [facility] Work Phone: ABO and Rh group Confirm Nom (Bld)on 01-24-2023 ABO group Nom (Bld) AB [facility] D Ag Ql (RBC) Positive [facility] BASIC METABOLIC PANELon 12-0 Anion gap [Moles/Vol] 8 mmol/L Normal 3-13 [facility] Comment on above: Performed By: #### Greg AB15, [id number], [id number] ####Gambreler: ASHER MATHEWS ([phone])[facility] ([facility])[address] Calcium [Mass/Vol] 8.9 mg/dL Normal 8.4-10.4 [facility] Comment on above: Performed By: #### Greg DIAZ, [id number], [id number] ####Gambreler: ASHER MATHEWS ([phone])[facility] ([facility])[address] Chloride [Moles/Vol] 105 mmol/L Normal 98-107 [facility] Comment on above: Performed By: #### Greg DIAZ, [id number], [id number] ####Gambreler: ASHER MATHEWS ([phone])[facility] ([facility])[address] CO2 [Moles/Vol] 25 mmol/L Normal 22-30 [facility] Comment on above: Performed By: #### Greg AB15, [id number], [id number] ####Gambreler: ASHER MATHEWS ([phone])[facility] ([facility] [place] [address] [place] Creatinine [Mass/Vol] 0.73 mg/dL Normal 0.52-1.04 [facility] Comment on above: Performed By: #### Greg AB15, [id number], [id number] ####Gambreler: ASHER MATHESW ([phone])[facility] ([facility])[address] GLOMERULAR FILTRATION RATE ML/MIN/1.73 SQ M.PREDICTED 89.7 mL/min/1.73m*2 Normal >60.0 [facility] Comment on above: Result Comment: Calc ulation based on the Chronic Kidney Disease Epidemiology Collaboration (CKD-EPI) equation refit without adjustment for race Performed By: #### L AB15, [id number], [id number] ####Gambreler: ASHER MATHEWS ([phone])[facility] ([facility])[address] Glucose [Mass/Vol] 116 mg/dL High 70-100 [facility] Comment on above: Performed By: #### L AB15, [id number], [id number] ####Gambreler: ASHER MATHEWS ([phone])[facility] ([facility])[address] Potassium [Moles/Vol] 4.3 mmol/L Normal 3.5-5.1 [facility] Comment on above: Performed By: #### L AB15, [id number], [id number] ####Gambreler: ASHER MATHEWS ([phone])[facility] ([facility])[address] Sodium [Moles/Vol] 137 mmol/L Normal 135-145 [facility] Comment on above: Performed By: #### L AB15, [id number], [id number] ####Gambreler: ASHER MATHEWS ([phone])[facility] ([facility])[address] [place] [address] [place] Urea nitrogen [Mass/Vol] 19 mg/dL High 7-17 [facility] Comment on above: Performed By: #### L AB15, [id number], [id number] ####Gambreler: ASHER MATHEWS ([phone])[facility] ([facility])[address] BLOOD TYPE AND SCREEN GELon 01-24-2023 ABO GROUPING AB Normal [facility] Comment on above: Performed By: #### L [id number] ####Gambreler: ASHER MATHEWS ([phone])[facility] ([facility])[address] RH TYPE IN BLOOD Positive Normal [facility] System [facility] Comment on above: Performed By: #### L [id number] ####Gambreler: ASHER [facility] ([phone])[facility] ([facility])[address] Basic metabolic 1998 panelon 01-24-2023 Anion gap [Moles/Vol] 8 mmol/L 3 - 13 mmol/L [facility] Calcium [Mass/Vol] 8.9 mg/dL 8.4 - 10. 4 mg/dL [facility] Chloride [Moles/Vol] 105 mmol/L 98 - 10 7 mmol/L [facility] CO2 [Moles/Vol] 25 mmol/L 22 - 30 mmol/L [facility] Creatinine [Mass/Vol] 0.73 mg/dL 0.52 - 1.04 mg/dL [facility] GFR/1.73 sq M.predicted MDRD (S/P/Bld) [Vol rate/Area] 89.7 mL/min/{1.73_m2} - [facility] Comment on above: Calculation based on the Chronic Kidney Disease Epidemiology Collaboration (CKD-EPI) equation refit without adjustment for race Glucose [Mass/Vol] 116 mg/dL High 70 - 100 mg/dL [facility] Interpretation and review of laboratory results Abnormal [facility] Potassium [Moles/Vol] 4.3 mmol/L 3.5 - 5.1 mmol/L [facility] Sodium [Moles/Vol] 137 mmol/L 135 - 145 mmol/L [facility] Urea nitrogen [Mass/Vol] 19 mg/dL High 7 - 17 mg/dL [facility] Blood type and Crossmatch pa ana m (Bld)on 01-24-2023 ABO group Nom (Bld) AB [facility] Blood group antibody screen GEL Ql Negative [facility] D Ag Ql (RBC) [facility] CBC W Auto Differential pane l (Bld)Ordered By: Winston Magana on 01-24-2023 Basophils (Bld) [#/Vol] 0.1 10*3/uL 0.0 - 0.2 10*3/uL [facility] Basophils/100 WBC (Bld) 0.4 % 0.0 - 2.0 % [facility] Eosinophils (Bld) [#/Vol] 0.2 10*3/uL 0.0 - 0.5 10*3/uL [facility] Eosinophils/100 WBC (Bld) 1.5 % 1.0 - 6.0 % [facility] Erythrocyte distribution width (RBC) [Ratio] 14.7 % High 11.5 - 14.5 % [facility] Hematocrit (Bld) [Volume fraction] 35.6 % 35.0 - 47.0 % [facility] Hemoglobin (Bld) [Mass/Vol] 11.3 g/dL Low 11.7 - 16.0 g/dL [facility] Interpretation and review of laboratory results Abnormal [facility] Lymphocytes (Bld) [#/Vol] 1.7 10*3/uL 1.0 - 4.3 10*3/uL [facility] Lymphocytes/100 WBC (Bld) 11.6 % Low 20.0 - 40.0 % [facility] MCH (RBC) [Entitic mass] 27.0 pg 26.0 - 34.0 pg [facility] MCHC (RBC) [Mass/Vol] 31.7 % Low 32.0 - 36.0 % [facility] MCV (RBC) [Entitic vol] 85.2 fL 80.0 - 98.0 fL [facility] Monocytes (Bld) [#/Vol] 1.0 10*3/uL High 0.0 - 0.8 10*3/uL [facility] Monocytes/100 WBC (Bld) 6.6 % 2.0 - 10.0 % [facility] Neutrophils (Bld) [#/Vol] 11.7 10*3/uL High 1.8 - 7.0 10*3/uL [facility] Neutrophils/100 WBC (Bld) 79.9 % 40.0 - 80.0 % [facility] Nucleated RBC/100 WBC (Bld) [Ratio] 0.0 % [facility] Platelet mean volume (Bld) [Entitic vol] 8.3 fL 7.4 - 12.4 fL [facility] Platelets (Bld) [#/Vol] 292 10*3/uL 140 - 440 10*3/uL [facility] RBC (Bld) [#/Vol] 4.18 10*6/uL 3.8 - 5.20 10*6/uL [facility] WBC (Bld) [#/Vol] 14.6 10*3/uL High 3.6 - 10.7 10*3/uL [facility] CBC WITH AUTO DIFFERENTIALon 01-24-2023 Basophils (Bld) [#/Vol] 0.1 10*3/uL Normal 0.0-0.2 [facility] Comment on above: Performed By: #### L [id number] ####Gambreler: ASHER MATHEWS ([phone])[facility] ([facility])[address] [place] [address] Basophils/100 WBC (Bld) 0.4 % Normal 0.0-2.0 S [facility] Comment on above: Performed By: #### L [id number] ####Gambreler: ASHER MATHEWS ([phone])[facility] ([facility])[address] [place] [address] Eosinophils (Bld) [#/Vol] 0.2 10*3/uL Normal 0.0-0.5 [facility] Comment on above: Performed By: #### L [id number] ####Gambreler: ASHER MATHEWS ([phone])[facility] ([facility])[address] [place] [address] Eosinophils/100 WBC (Bld) 1.5 % Normal 1.0-6.0 [facility] Comment on above: Performed By: #### L [id number] ####Gambreler: ASHER MATHEWS ([phone])[facility] ([facility])[address] [place] [address] Erythrocyte distribution width (RBC) [Ratio] 14.7 % High 11.5-14.5 [facility] Comment on above: Performed By: #### L [id number] ####Gambreler: ASHER MATHEWS ([phone])[facility] ([facility])[address] [place] [address] ERYTHROCYTE MEAN CORPUSCULAR HEMOGLOBIN CONCENTRATION (G/DL) BY AUTOMATED 31.7 % Low 32.0-36.0 [facility] Comment on above: Performed By: #### L [id number] ####Gambreler: ASHER MATHEWS ([phone])[facility]ITAL[facility]orah [facility] ([facility])[address] Hematocrit (Bld) [Volume fraction] 35.6 % Normal 35.0-47.0 [facility] Comment on above: Performed By: #### L [id number] ####Gambreler: ASHER MATHEWS ([phone])[facility]ITAL[facility] ([facility])[address] [place] [address] Hemoglobin (Bld) [Mass/Vol] 11.3 g/dL Low 11.7-16.0 [facility] Comment on above: Performed By: #### L [id number] ####Gambreler: ASHER MATHEWS ([phone])[facility]ITAL[facility] ([facility])[address] [place] [address] Lymphocytes (Bld) [#/Vol] 1.7 10*3/uL Normal 1.0-4.3 [facility] Comment on above: Performed By: #### L [id number] ####Gambreler: ASHER MATHEWS ([phone])[facility]ITAL[facility] ([facility])[address] [place] [address] Lymphocytes/100 WBC (Bld) 11.6 % Low 20.0-40.0 [facility] Comment on above: Performed By: #### L [id number] ####Gambreler: ASHER MATHEWS ([id number])[facility]ITAL[facility] ([facility])[address] MCH (RBC) [Entitic mass] 27.0 pg Normal 26.0-34.0 [facility] Comment on above: Performed By: #### L [id number] ####Gambreler: ASHER MATHEWS ([phone])[facility] ([facility])[address] MCV (RBC) [Entitic vol] 85.2 fL Normal 80.0-98.0 [facility] Comment on above: Performed By: #### L [id number] ####Gambreler: ASHER MATHEWS ([phone])[facility] ([facility])[address] [place] [address] [place] Monocytes (Bld) [#/Vol] 1.0 10*3/uL High 0.0-0.8 [facility] Comment on above: Performed By: #### L [id number] ####Gambreler: ASHER REID ([id number])[facility] ([facility])[address] Monocytes/100 WBC (Bld) 6.6 % Normal 2.0-10.0 [facility] Comment on above: Performed By: #### L [id number] ####Gambreler: ASHER MATHEWS ([phone])[facility] ([facility])[address] [place] [address] [place] Neutrophils (Bld) [#/Vol] 11.7 10*3/uL High 1.8-7.0 [facility] Comment on above: Performed By: #### L [id number] ####Gambreler: ASHER REMICER ([id number])[facility] ([facility])[address] Neutrophils/100 WBC (Bld) 79.9 % Normal 40.0-80.0 [facility] Comment on above: Performed By: #### L [id number] ####Gambreler: ASHER REID ([id number])[facility] ([facility])[address] NRBC (PER 100 WBCS) BY AUTOMATED COUNT 0.0 /100 WBCs Normal 0.0-2.0 [facility] Comment on above: Performed By: #### L [id number] ####Gambreler: ASHER KHALILCER ([phone])[facility] ([facility])[address] Platelet mean volume (Bld) [Entitic vol] 8.3 fL Normal 7.4-12.4 [facility] Comment on above: Performed By: #### L [id number] ####Gambreler: ASHER JACOBSONGALA ([phone])[facility]ITAL[facility] HARRISDIGN[facility] ([facility])[address] Platelets (Bld) [#/Vol] 292 10*3/uL Normal 140-440 [facility] Comment on above: Performed By: #### L [id number] ####Gambreler: ASHER ARIASBHARTI ([phone])[facility] [place] ([facility])[address] RBC (Bld) [#/Vol] 4.18 10*6/uL Normal 3.8-5.20 [facility] Comment on above: Performed By: #### L [id number] ####Gambreler: ASHER JACOBSONGALA ([phone])[facility] [place] ([facility])[address] WBC (Bld) [#/Vol] 14.6 10*3/uL High 3.6-10.7 [facility] Comment on above: Performed By: #### L [id number] ####Gambreler: ASHER MATHEWS ([phone])[facility] ([facility])[address] COVID-19, Flu A/B, and RSV C omboon 01-24-2023 Interpretation and review of laboratory results Normal [facility] CT HEAD WO IV CONTRASTon CT HEAD WO IV CONTRAST Patient Name: CLARIBEL STOLL : 1955 Exam Date/Time: 01/24/2023 01:49 Procedure: CT HEAD WO IV CONTRAST Ordering Provider: BURDEN GREGORY Reason For Exam: Fall dementia unknown head trauma, patient has facial drooping and right CT HEAD CLINICAL INDICATION: Fall dementia unknown head trauma, patient has facial drooping and right COMPARISON: 03/05/2018 Technique: Axial CT images were obtained from skull base to vertex. Images were reformatted in coronal and sagittal projections. Dose reduction was employed with automated exposure control. 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 The maradiaga-white differentiation remains preserved and the basal cisterns are patent. Patchy hypodensity is seen within periventricular white matter, suggestive of chronic small vessel ischemic changes. Ventricles are appropriate in size for the patient's age and level of parenchymal volume. No acute fractures or suspicious osseous lesions seen. The paranasal sinuses and mastoid air cells remain well aerated. IMPRESSION: No acute intracranial hemorrhage or territorial infarct. Similar appearance of chronic ischemic findings. Report Dictated on Electronically Signed By: Marin Mack DR Electronically Signed Date/Time: 01/24/2023 2:09 AM [facility] Pt came in via [facility] or a hip fracture. Pt fell yesterday morning and had an xray done that showed a r hip fracture. Normal [facility] CT Head WO contraston 2022 No acute intracrania l hemorrhage or territorial infarct. Similar appearance of chronic ischemic findings. Report Dictated on Electronically Signed By: Marin Mack DR Electronically Signed Date/Time: 01/24/2023 2:09 AM [facility] RADIOLOGY SYSTEM Patient Name: CLARIBEL STOLL : 1955 Exam Date/Time: 01/24/2023 01:49 Procedure: CT HEAD WO IV CONTRAST Ordering Provider: BURDEN GREGORY Reason For Exam: Fall dementia unknown head trauma, patient has facial drooping and right CT HEAD CLINICAL INDICATION: Fall dementia unknown head trauma, patient has facial drooping and right COMPARISON: 03/05/2018 Technique: Axial CT images were obtained from skull base to vertex. Images were reformatted in coronal and sagittal projections. Dose reduction was employed with automated exposure control. 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 The maradiaga-white differentiation remains preserved and the basal cisterns are patent. Patchy hypodensity is seen within periventricular white matter, suggestive of chronic small vessel ischemic changes. Ventricles are appropriate in size for the patient's age and level of parenchymal volume. No acute fractures or suspicious osseous lesions seen. The paranasal sinuses and mastoid air cells remain well aerated. [facility] RADIOLOGY SYSTEM Marin Mack MD - 01/24/2023 Patient Name: CLARIBEL STOLL [facility] 1955 [id number] Exam Date/Time: 01/24/2023 01:49 Procedure: CT HEAD WO IV CONTRAST Ordering Provider: BURDEN GREGORY Reason For Exam: Fall dementia unknown head trauma, patient has facial drooping and right CT HEAD CLINICAL INDICATION: Fall dementia unknown head trauma, patient has facial drooping and right COMPARISON: 03/05/2018 Technique: Axial CT images were obtained from skull base to vertex. Images were reformatted in coronal and sagittal projections. Dose reduction was employed with automated exposure control. 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 The maradiaga-white differentiation remains preserved and the basal cisterns are patent. Patchy hypodensity is seen within periventricular white matter, suggestive of chronic small vessel ischemic changes. Ventricles are appropriate in size for the patient's age and level of parenchymal volume. No acute fractures or suspicious osseous lesions seen. The paranasal sinuses and mastoid air cells remain well aerated. IMPRESSION: No acute intracranial hemorrhage or territorial infarct. Similar appearance of chronic ischemic findings. Report Dictated on Electronically Signed By: Marin Mack DR Electronically Signed Date/Time: 01/24/2023 2:09 AM EST [facility] Radiology Study observation (narrative) [facility] Consulton 01-24-2023 Consult Ortho Consult Patient: Claribel Stoll Date of : 1955 Acct: [id number] PCP: Morris Carr Date of Admission: 01/24/2023 Date of Service: Pt seen/examined on 01/24/2023 Chief Complaint: Right hip pain History Of Present Illness: 67 y.o. female with PMHx of dementia who presents with right hip pain after a fall from standing. She was sent to the emergency department from her group home in [place] she is pleasantly demented on exam and able to answer some but not all questions. Reports right hip pain but otherwise denies pain in extremities. PMH of dementia. Lives in group home. Orthopaedic surgery history: -Prior left hip hemiarthroplasty done at [facility] 11/2021 -Known to Dr. Redman for non-op management of left proximal humerus fracture in 2018 Patient ambulation status: Not clear . Antiplatelets/Anticoag ulation includes: ASA. Hx from chart and/or Pt. Past Medical History: Past Medical History: Diagnosis Date Anxiety Depression Fractures 03/05/2018 left proximal humerus Past Surgical History: Past Surgical History: Procedure Laterality Date OTHER SURGICAL HISTORY LLE surgery Home Medications: Prior to Admission medications Medication Sig Start Date End Date Taking? Authorizing Provider aspirin 81 MG EC tablet Take 81 mg by mouth daily. Historical Provider, atorvastatin (Lipitor) 20 MG tablet Take 20 mg by mouth in the morning. Historical Provider, buPROPion XL (Wellbutrin XL) 150 MG 24 hr tablet Take 150 mg by mouth daily. Do not crush, chew, or split. Historical Provider, citalopram (CeleXA) 10 MG tablet Take 20 mg by mouth daily. Historical Provider, D-Mannose (Azo D-Mannose) 500 MG capsule Take 500 mg by mouth in the morning and 500 mg in the evening. Historical Provider, haloperidol (Haldol) 1 MG tablet Take 1 mg by mouth 3 times daily. Historical Provider, levothyroxine (Synthroid, Levoxyl) 50 MCG tablet Take 50 mcg by mouth every morning (before breakfast). Historical Provider, levothyroxine (Tirosint) 100 MCG capsule Take by mouth every morning (before breakfast). Historical Provider, Lidocaine ( Lidocaine Patch) 4 % patch Place 1 patch on the skin daily. Apply to lower back Historical Provider, LORazepam (Ativan) 0.5 MG tablet Take by mouth. Historical Provider, LORazepam (Ativan) 1 MG tablet Take 1 mg by mouth 2 times daily at 0800 and 1400. Historical Provider, melatonin 5 MG tablet Take 5 mg by mouth Nightly as needed. Historical Provider, polycarbophil (Fibercon) 625 MG tablet Take 625 mg by mouth daily. Historical Provider, pregabalin (Lyrica) 100 MG capsule Take 100 mg by mouth 3 times daily. Historical Provider, Current Hospital Medications: Current Facility-Administered Medications: oxyCODONE (Roxicodone) immediate release tablet 5 mg, 5 mg, Oral, q6h PRN, Kizzy Garsia MD Current Outpatient Medications: aspirin 81 MG EC tablet, Take 81 mg by mouth daily., Disp: , Rfl: atorvastatin (Lipitor) 20 MG tablet, Take 20 mg by mouth in the morning., Disp: , Rfl: buPROPion XL (Wellbutrin XL) 150 MG 24 hr tablet, Take 150 mg by mouth daily. Do not crush, chew, or split., Disp: , Rfl: citalopram (CeleXA) 10 MG tablet, Take 20 mg by mouth daily., Disp: , Rfl: D-Mannose (Azo D-Mannose) 500 MG capsule, Take 500 mg by mouth in the morning and 500 mg in the evening., Disp: , Rfl: haloperidol (Haldol) 1 MG tablet, Take 1 mg by mouth 3 times daily., Disp: , Rfl: levothyroxine (Synthroid, Levoxyl) 50 MCG tablet, Take 50 mcg by mouth every morning (before breakfast)., Disp: , Rfl: levothyroxine (Tirosint) 100 MCG capsule, Take by mouth every morning (before breakfast)., Disp: , Rfl: Lidocaine (HM Lidocaine Patch) 4 % patch, Place 1 patch on the skin daily. Apply to lower back, Disp: , Rfl: LORazepam (Ativan) 0.5 MG tablet, Take by mouth., Disp: , Rfl: LORazepam (Ativan) 1 MG tablet, Take 1 mg by mouth 2 times daily at 0800 and 1400., Disp: , Rfl: melatonin 5 MG tablet, Take 5 mg by mouth Nightly as needed., Disp: , Rfl: polycarbophil (Fibercon) 625 MG tablet, Take 625 mg by mouth daily., Disp: , Rfl: pregabalin (Lyrica) 100 MG capsule, Take 100 mg by mouth 3 times daily., Disp: , Rfl: Allergies: Patient has no known allergies. Social History: Social History Socioeconomic History Marital status: Spouse name: Not on file Number of children: Not on file Years of education: Not on file Highest education level: Not on file Occupational History Not on file Tobacco Use Smoking status: Never Smokeless tobacco: Never Substance and Sexual Activity Alcohol use: Yes Drug use: No Sexual activity: Not on file Other Topics Concern Not on file Social History Narrative Not on file Social Determinants of Health Financial Resource Strain: Not on file Food Insecurity: Not on file Transportation Needs: N (more content not included)... [facility] ECG 12-LEADon 01-24-2023 ECG 12-LEAD IMPRESSION: Sinus rhythm Compared to ECG 03/05/2018 22:44:19 Sinus tachycardia no longer present Electronically Signed On 01-24-2023 2:07:24 EST by Dell Burden [facility] ED Nursing Noteon 01-24-2023 ED Nursing Note Per previous RN , report called. Pt to [facility]. Pt left approx 1040am with [employer] transport. Altagracia Thapa RN 01/24/[address] [facility] ED Nursing Note RN introduced her self. Pt on the monitor, call light in reach. Pt declined needs at this time Altagracia Thapa RN 01/24/[address] [facility] ED Nursing Note Physicians ETA 2-3 hours Karen Chavis RN 01/24/[address] [facility] ED Nursing Note Bed: 33 Expected date: 01/24/23 Expected time: Means of arrival: Comments: [facility] Karen Chavis RN 01/24/[address] [facility] ED Provider Noteon ED Provider Note [facility] ED EMERGENCY DEPARTMENT ENCOUNTER Pt Name: Claribel Stoll Birthdate 1955 Date of evaluation: 01/24/2023 Provider: Dell Burden MD CHIEF COMPLAINT Chief Complaint Patient presents with Hip Pain Pt came in via [facility] or a hip fracture. Pt fell yesterday morning and had an xray done that showed a r hip fracture. HISTORY OF PRESENT ILLNESS (Location/Symptom, Timing/Onset,Context/S etting, Quality, Duration, Modifying Factors, Severity) Note limiting factors. Claribel Stoll is a 67 y.o. female who presents to the emergency department patient from group home. Apparently she fell yesterday and x-ray showed right hip fracture. Brought in via ambulance due to hip fracture. Patient does have a history of dementia. Unclear if she hit her head or not. She does appear to have right-sided facial droop and she cannot give history as to whether this is chronic or not. She does follow commands. She reports pain in the right hip but no chest pain shortness breath fevers chills cough cold congestion. Patient reportedly fell yesterday. HPI Historian is the patient Nurse's notes for past medical history, surgical history, social history were reviewed. Medications and allergies reviewed. PAST MEDICAL HISTORY Past Medical History: Diagnosis Date Anxiety Depression Fractures 03/05/2018 left proximal humerus SURGICALHISTORY Past Surgical History: Procedure Laterality Date OTHER SURGICAL HISTORY LLE surgery CURRENT MEDICATIONS Previous Medications ATORVASTATIN (LIPITOR) 20 MG TABLET Take 20 mg by mouth in the morning. Patient has no known allergies. FAMILY HISTORY Family History Problem Relation Name Age of Onset Diabetes type II Sister SOCIAL HISTORY Social History Socioeconomic History Marital status: Tobacco Use Smoking status: Never Smokeless tobacco: Never Substance and Sexual Activity Alcohol use: Yes Drug use: No SCREENINGS PHYSICAL EXAM (up to 7 for level 4, 8 or more for level 5) @EDTRIAGEVSS@ Appropriate PPE including n 95, gown, gloves, goggles where worn when appropriate with this patient. Physical Exam Vital signs reviewed general: Alert and oriented ?1, appears to be baseline head: Atraumatic eyes: Equal round reactive to light and accommodating, pupils are equal, round and reactive to light and accommodation oropharynx: Clear and well hydrated neck: Supple, no midline cervical tenderness heart: Regular rate and rhythm, no murmurs lungs: Clear to auscultation bilaterally abdomen: Soft nontender, positive bowel sounds, no peritoneal findings. Extremities: No pain in the bilateral upper extremities or left lower extremity but does have pain with any attempt to move the right leg and shortening the right leg. No knee pain or ankle pain. Equal pulses. Normal capillary refill. Skin: No rash or lesions -to the exposed skin neurologically: Alert and oriented 1. Patient appears to be having a high riding right eyebrow and facial drooping on the right it is unclear if this is new or chronic I was unable to find any documentation of it in her records. No focal neurologic deficit otherwise. Sensations intact. She does follow commands. Strength appears to be equal limited the right leg secondary to pain. Did not test gait. We are confirming with the group home if she has had right-sided facial drooping in the past. 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 Do not believe this is new therefore. DIAGNOSTIC RESULTS RADIOLOGY: Interpretation per the Radiologist below, if availableat the time of this note: XR chest 1 view Final Result No acute consolidative process. Report Dictated on Electronically Signed By: Marin Mack DR Electronically Signed Date/Time: 01/24/2023 3:[address] head wo IV contrast Final Result No acute intracranial hemorrhage or territorial infarct. Similar appearance of chronic ischemic findings. Report Dictated on Electronically Signed By: Marin Mack DR Electronically Signed Date/Time: 01/24/2023 2:09 AM EST XR hip right 2 or 3 views Final Result Mildly displaced right proximal femoral neck fracture. Report Dictated on Electronically Signed By: Marin Mack DR Electronically Signed Date/Time: 01/24/2023 1:44 AM EST ED BEDSIDE ULTRASOUND: Performed by ED Physician - none LABS: Labs Reviewed BASIC METABOLIC PANEL - Abnormal Result Value SODIUM 137 POTASSIUM 4.3 CHLORIDE 105 CARBON DIOXIDE 25 UREA NITROGEN 19 (*) CREATININE 0.73 GLUCOSE 116 (*) CALCIUM 8.9 ANION GAP 8 eGFR 89.7 CBC WITH AUTO DIFFERENTIAL - Abnormal Auto WBC 14.6 (*) RBC 4.18 Hemoglobin 11.3 (*) Hematocrit 35.6 MCV 85.2 MCH 27.0 MCHC 31.7 (*) RDW 14.7 (*) Platelets 292 MPV 8.3 nRBC 0.0 Neutrophils Relati (more content not included)... Normal [facility] IDNon 01-24-2023 IDN Problem: Knowledge Deficit Goal: Patient/family/caregiv er demonstrates understanding of disease process, treatment plan, medications, and discharge instructions Outcome: Progressing Problem: Potential for Compromised Skin Integrity Goal: Skin Integrity is Maintained or Improved Outcome: Progressing Goal: Nutritional status is improving Outcome: Progressing Normal [facility] Laboratory - Chemistry and C hemistry - challengeon 01-24-2023 TSH Qn 2.271 m[IU]/L [facility] h Troponin I.cardiac [Mass/Vol] ng/mL NINF - 0.034 ng/mL [facility] Laboratory - Coagulationon 1 03-27-2022 PT Coag (Bld) [Time] 10.6 s 9.0 - 12.0 s [facility] Laboratory - Microbiology an d Antimicrobial susceptibilityon 01-24-2023 FLUAV RNA JEANA+probe Ql (Resp) Not detected Not Detected [facility] FLUBV RNA JEANA+probe Ql (Resp) Not detected Not Detected [facility] RSV RNA JEANA+probe Ql (Resp) Not detected Not Detected [facility] SARS-CoV-2 (COVID-19) RNA JEANA+probe Ql (Resp) Not detected Not Detected [facility] alth SARS-CoV-2 (COVID-19) RNA JEANA+probe Ql (Unsp spec) Methodology: real-time, RT-PCR The SARS-CoV-2, Flu A/B, and RSV Combo assay is intended for in vitro diagnostic use under the FDA Emergency Use Authorization (EUA). This test has not been FDA cleared or approved. In compliance with this authorization, please visit www.fda.gov/media/5161 35/download or www.fda.gov/media/1422 36/download to access the applicable information sheets. [facility] No Panel Informationon 01-24 P [place] 75 degrees [facility] GA Interval 146 ms [facility] QRS [place] 72 degrees [facility] QRSD Interval 88 ms [facility] QT Interval 388 ms [facility] QTC Interval 452 ms [facility] T Wave [place] 64 degrees [facility] Sinus rhythm Compared to ECG 03/05/2018 22:44:19 Sinus tachycardia no longer present Electronically Signed On 01-24-2023 2:07:24 EST by Dell Burden CV Dell Reed MD - 01/24/2023 IMPRESSION: Sinus rhythm Compared to ECG 03/05/2018 22:44:19 Sinus tachycardia no longer present Electronically Signed On 01-24-2023 2:07:24 EST by Dell Burden [facility] PROTHROMBIN TIMEon INR Coag (PPP) [Relative time] 1.0 {INR} Normal 0.9-1.1 [facility] Comment on above: Result Comment: Shaun mmended Anticoagulant Therapy: SEE BELOW ----- INR of 2.0 - 3.0 : - Prophylaxis of Venous Thrombosis (high-risk surgery) - Treatment of Venous Thrombosis - Treatment of Pulmonary Embolism (Includes tissue heart valves, Acute Myocardial Infarction to prevent systemic embolism, Valvular Heart Disease, and Atrial Fibrillation) ----- INR of 2.5 - 3.5 : - Mechanical Prosthetic Valves (high risk) - If oral anticoagulant therapy is used to prevent Myocardial Infarction Performed By: #### L [id number] #### Gambreler: ASHER MATHEWS ([id number]) [facility] ([facility]) [address] [place] [address] PT Coag (PPP) [Time] 10.6 s Normal 9.0-12.0 [facility] Comment on above: Performed By: #### L [id number] #### Gambreler: ASHER MATHEWS ([id number]) [facility] ([facility]) [address] [place] [address] PT Coag (Bld) [Time]on 01-24 INR Coag (PPP) [Relative time] 1.0 {INR} 0.9 - 1.1 [facility] Comment on above: Recommended Anticoag ulant Therapy: SEE BELOW ----- INR of 2.0 - 3.0 : - Prophylaxis of Venous Thrombosis (high-risk surgery) - Treatment of Venous Thrombosis - Treatment of Pulmonary Embolism (Includes tissue heart valves, Acute Myocardial Infarction to prevent systemic embolism, Valvular Heart Disease, and Atrial Fibrillation) ----- INR of 2.5 - 3.5 : - Mechanical Prosthetic Valves (high risk) - If oral anticoagulant therapy is used to prevent Myocardial Infarction Interpretation and review of laboratory results Normal [facility] Progress Noteon 01-24-2023 Progress Note Discussed operative timing with patient and patient's siblings via phone. Due to the volume of emergent surgical cases today patient would not be able to go to surgery until very late tonight and would have to remain n.p.o. until that time. The decision was made to cancel surgery for tonight with the plans of going to the OR tomorrow morning. Patient and family were agreeable to this plan. Patient can have a diet and will become n.p.o. again at midnight tonight in anticipation of surgery. Rogerio Snider MD PGY2 Orthopaedic Surgery 01/24/2023 2:[address] [facility] SARS-COV-2, FLU A/B, AND RSV COMBOon 01-24-2023 SARS-CoV-2 (COVID-19) RNA JEANA+probe Ql (Unsp spec) SARS-COV-2 Reference Not Detected Not Detected RESPIRATORY SYNCYTIAL VIRUS Reference Not Detected Not Detected INFLUENZA A (CEPHEID) Reference Not Detected Not Detected INFLUENZA B (CEPHEID) Reference Not Detected Not Detected ORDER COMMENTS: Methodology: real-time, RT-PCR The SARS-CoV-2, Flu A/B, and RSV Combo assay is intended for in vitro diagnostic use under the FDA Emergency Use Authorization (EUA). This test has not been FDA cleared or approved. In compliance with this authorization, please visit www.fda.gov/media/1424 35/download or www.fda.gov/media/1421 36/download to access the applicable information sheets. Normal [facility] Comment on above: Performed By: #### L [id number] #### Gambreler: ASHER MATHEWS ([id number]) [facility] ([facility]) [address] [place] [address] THYROID STIMULATING HORMONEo n 01-24-2023 THYROID STIMULATING HORMONE 2.271 uIU/mL Normal 0.465-4.680 [facility] Comment on above: Performed By: #### L [id number], [id number], [id number] ####Gambreler: ASHER MATHEWS ([phone])[facility] ([facility])[address] [place] [address] TROPONIN Ion 01-24-2023 Troponin I.cardiac [Mass/Vol] ng/mL Normal <0.034 [facility] Comment on above: Result Comment: ORDE R COMMENTS: Patients with high levels of Biotin oral intake (ie >5 mg/day) may have falsely decreased Troponin levels. Performed By: #### L [id number], [id number], [id number] ####Gambreler: ASHER MATHEWS ([phone])[facility] ([facility])[address] [place] [address] TSH Qnon 01-24-2023 Interpretation and review of laboratory results Normal [facility] Troponin I.cardiac [Mass/Vol ]on 01-24-2023 Interpretation and review of laboratory results Normal [facility] Patients with high levels of Biotin oral intake (ie >5 mg/day) may have falsely decreased Troponin levels. [facility] Vital signson 01-24-2023 Heart rate 82 /min bpm [facility] XR Chest Single viewon 01-24 No acute consolidati ve process. Report Dictated on Electronically Signed By: Marin Mack DR Electronically Signed Date/Time: 01/24/2023 3:00 AM EST [facility] Patient Name: CLARIBEL STOLL : 1955 Exam Date/Time: 01/24/2023 02:46 Procedure: XR CHEST 1 VIEW Ordering Provider: BURDEN GREGORY Reason For Exam: Cough hypoxia Clinical History: Cough hypoxia Comparison: 03/05/2018 Technique: Single AP radiograph of the chest. Findings: Cardiomediastinal silhouette and pulmonary vasculature are within normal limits. The lungs and pleural spaces are clear. No sizable pneumothorax. Chronic left proximal humeral fracture deformity. [facility] Marin Mack MD - 01/24/2023 Patient Name: CLARIBEL STOLL : 1955 Exam Date/Time: 01/24/2023 02:46 Procedure: XR CHEST 1 VIEW Ordering Provider: BURDEN GREGORY Reason For Exam: Cough hypoxia Clinical History: Cough hypoxia Comparison: 03/05/2018 Technique: Single AP radiograph of the chest. Findings: Cardiomediastinal silhouette and pulmonary vasculature are within normal limits. The lungs and pleural spaces are clear. No sizable pneumothorax. Chronic left proximal humeral fracture deformity. IMPRESSION: No acute consolidative process. Report Dictated on Electronically Signed By: Marin Mack DR Electronically Signed Date/Time: 01/24/2023 3:00 AM [facility] Radiology Study observation (narrative) Gallo Cooper alth XR Femur - right 2 Viewson 1 03-27-2022 FINDINGS/IMPRESSION: Redemonstration of right proximal femur fracture. No other fractures or dislocations seen. Report Dictated on Electronically Signed By: Marin Mack DR Electronically Signed Date/Time: 01/24/2023 5:57 AM [facility] Patient Name: CLARIBEL STOLL : 1955 Exam Date/Time: 01/24/2023 05:51 Procedure: XR FEMUR 2+ VW RIGHT Ordering Provider: GARSIA NARSIMHA Reason For Exam: Operative planning Clinical history: Operative planning COMPARISON: Radiographs from earlier today TECHNIQUE: AP and lateral views of the right femur [facility] Marin Mack MD - 01/24/2023 Patient Name: CLARIBEL STOLL : 1955 Exam Date/Time: 01/24/2023 05:51 Procedure: XR FEMUR 2+ VW RIGHT Ordering Provider: GARSIA NARSIMHA Reason For Exam: Operative planning Clinical history: Operative planning COMPARISON: Radiographs from earlier today TECHNIQUE: AP and lateral views of the right femur IMPRESSION: FINDINGS/IMPRESSION: Redemonstration of right proximal femur fracture. No other fractures or dislocations seen. Report Dictated on Electronically Signed By: Marin Mack DR Electronically Signed Date/Time: 01/24/2023 5:57 AM [facility] Radiology Study observation (narrative) Gallo Cooper alth XR Hip - right 3 Viewson Mildly displaced rig ht proximal femoral neck fracture. Report Dictated on Electronically Signed By: Marin Mack DR Electronically Signed Date/Time: 01/24/2023 1:44 AM EST [facility] Patient Name: CLARIBEL STOLL : 1955 Exam Date/Time: 01/24/2023 01:33 Procedure: XR HIP 2 OR 3 VW RIGHT Ordering Provider: BURDEN GREGORY Reason For Exam: Fall right hip pain Clinical history: Fall right hip pain COMPARISON: None. TECHNIQUE: AP view of the pelvis with AP and lateral views of the right hip. FINDINGS: Left hip hemiarthroplasty. Mildly displaced right proximal femoral neck fracture with associated foreshortening. Moderate right hip osteoarthrosis. [facility] Marin Mack MD - 01/24/2023 Patient Name: CLARIBEL STOLL : 1955 Exam Date/Time: 01/24/2023 01:33 Procedure: XR HIP 2 OR 3 VW RIGHT Ordering Provider: BURDEN GREGORY Reason For Exam: Fall right hip pain Clinical history: Fall right hip pain COMPARISON: None. TECHNIQUE: AP view of the pelvis with AP and lateral views of the right hip. FINDINGS: Left hip hemiarthroplasty. Mildly displaced right proximal femoral neck fracture with associated foreshortening. Moderate right hip osteoarthrosis. IMPRESSION: Mildly displaced right proximal femoral neck fracture. Report Dictated on Electronically Signed By: Marin Mack DR Electronically Signed Date/Time: 01/24/2023 1:44 AM EST [facility] Radiology Study observation (narrative) [facility] alth XR Hip - right 3 ViewsOrdere d By: Marin Mack on 01-24-2023 [facility] Work Phone: Amorphous sediment detection in urine sediment by light microscopyOrdered By: Morris Carr on 01-23-2023 Amorphous sediment LM Ql (Urine sed) 1+ [facility] Basophil percentageOrdered B y: Morris Carr on 01-23-2023 Chloride [Moles/Vol] 110 mmol/L 98-107 [facility] Glucose [Mass/Vol] 86 mg/dL 74-106 [facility] Potassium [Moles/Vol] 3.9 mmol/L 3.5-5.1 [facility] Sodium [Moles/Vol] 140 mmol/L 136-145 [facility] WBC (Bld) [#/Vol] 7.2 10*3/uL 4.4-11.0 [facility] Basophil percentage 0-5 SEEN /hpf 0-5 [facility] Bilirubin Test strip Ql (U)O rdered By: Morris Carr on 01-23-2023 Bilirubin Ql (U) Negative Negative [facility] Blood erythrocytes count (nu mber/volume)Ordered By: Morris Carr on 01-23-2023 RBC (Bld) [#/Vol] 3.89 10*6/uL 4.2-5.4 [facility] Blood hemoglobin measurement (mass/volume)Ordered By: Morris Carr on 01-23-2023 Hemoglobin (Bld) [Mass/Vol] 10.6 g/dL 12.0-15.0 [facility] Blood platelet mean volumeOr dered By: Morris Carr on 01-23-2023 Platelet mean volume (Bld) [Entitic vol] 10.6 fL 6.2-12.0 [facility] Determination of erythrocyte mean corpuscular volume (MCV)Ordered By: Morris Carr on 01-23-2023 MCV (RBC) [Entitic vol] 91.0 fL 81-99 [facility] Hematocrit Auto (Bld) [Volum e fraction]Ordered By: Morris Carr on 01-23-2023 Hematocrit (Bld) [Volume fraction] 35.4 % 37-47 [facility] Ketones Test strip Ql (U)Ord ered By: Morris Carr on 01-23-2023 Ketones Ql (U) 5 mg/dl Negative [facility] Laboratory - Chemistry and C hemistry - challengeOrdered By: Morris Carr on 01-23-2023 CO2 [Moles/Vol] 29.0 mmol/L 21.0-32.0 [facility] Urea nitrogen/Creatinine [Mass ratio] 16.7 mg/mg 10-20 [facility] Laboratory - Hematology and Cell countsOrdered By: Morris Carr on 01-23-2023 Erythrocyte distribution width (RBC) [Entitic vol] 47.7 fL 35.1-43.9 [facility] Erythrocyte distribution width (RBC) [Ratio] 14.2 % 11.6-14.6 [facility] MCH (RBC) [Entitic mass] 27.2 pg 27.0-32.0 [facility] MCHC Auto (RBC) [Mass/Vol]Or dered By: Morris Carr on 01-23-2023 MCHC (RBC) [Mass/Vol] 29.9 g/dL 32-36 [facility] Mucus LM Ql (Urine sed)Order ed By: Morris Carr on 01-23-2023 Mucus Ql (Urine sed) 0 SEEN /hpf [facility] Nitrite Test strip Ql (U)Ord ered By: Morris Carr on 01-23-2023 Nitrite Ql (U) Positive Negative [facility] No Panel InformationOrdered By: Morris Carr on 01-23-2023 Estimated GFR (MDRD) Amer 95 mL/min >60 [facility] Comment on above: GFR Calc Estimated GFR (MDRD) Non-Af Amer 78 mL/min >60 [facility] Comment on above: Non- GFR Calc Thyroid Stimulating Hormone (TSH) 2.22 uIU/mL 0.358-3.74 [facility] Platelets bldOrdered By: Deshaun Carr on 01-23-2023 Platelets (Bld) [#/Vol] 307 10*3/uL 150-450 [facility] Protein Test strip Ql (U)Ord ered By: Morris Carr on 01-23-2023 Protein Ql (U) 15 mg/dl Negative [facility] Serum or plasma calcium raul urement (mass/volume)Ordered By: Morris Carr on 01-23-2023 Calcium [Mass/Vol] 8.8 mg/dL 8.5-10.1 [facility] Serum or plasma creatinine m easurement (mass/volume)Ordered By: Morris Carr on 01-23-2023 Creatinine [Mass/Vol] 0.78 mg/dL 0.55-1.02 [facility] Comment on above: The validity of the calculated GFR & GFRAA in patients over 70 years has not been determined. Clinical correlation is essential. Serum or plasma urea nitroge n measurement (mass/volume)Ordered By: Morris Carr on 01-23-2023 Urea nitrogen [Mass/Vol] 13 mg/dL 7-18 [facility] Squamous epithelial cells de tection in urine sediment by light microscopyOrdered By: Morris Carr on 01-23-2023 Epithelial cells.squamous LM Ql (Urine sed) 0 SEEN /hpf 5-10 [facility] Thin prep Papanicolaou smear with manual screeningOrdered By: Morris Carr on 01-23-2023 Thin prep Papanicolaou smear with manual screening 1 5-15 [facility] Urine blood detectionOrdered By: Morris Carr on 01-23-2023 RBC Ql (U) Negative Negative [facility] RBC Ql (U) 0 SEEN /hpf 0-5 [facility] Urine clarityOrdered By: Deshaun Carr on 01-23-2023 Clarity (U) Clear Clear [facility] Urine color determinationOrd ered By: Morris Carr on 01-23-2023 Color (U) Yellow Yellow [facility] Urine glucose detectionOrder ed By: Morris Carr on 01-23-2023 Glucose Ql (U) Normal mg/dl Normal [facility] Urine leukocyte esterase det ection by dipstickOrdered By: Morris Carr on 01-23-2023 Leukocyte esterase Test strip Ql (U) 25 /ul Negative [facility] Urine pHOrdered By: Morris paulino on 01-23-2023 pH (U) 6.0 [pH] 5.0 - 8.0 [facility] Urine sediment bacteria coun t by microscopy (number/high power field)Ordered By: Morris Carr on 01-23-2023 Bacteria LM.HPF (Urine sed) [#/Area] 0 /[HPF] None Seen [facility] Urine specific gravity measu rementOrdered By: Morris Carr on 01-23-2023 Specific gravity (U) [Rel density] 1.020 1.002-1.030 [facility] Urobilinogen Auto test strip Ql (U)Ordered By: Morris Carr on 01-23-2023 Urobilinogen Ql (U) 1 mg/dl Normal [facility] Basophil percentageOrdered B y: Morris Carr on 12-04-2022 Chloride [Moles/Vol] 110 mmol/L 98-107 [facility] Glucose [Mass/Vol] 95 mg/dL 74-106 [facility] Potassium [Moles/Vol] 4.0 mmol/L 3.5-5.1 [facility] Sodium [Moles/Vol] 142 mmol/L 136-145 [facility] Laboratory - Chemistry and C hemistry - challengeOrdered By: Morris Carr on 12-04-2022 CO2 [Moles/Vol] 29.0 mmol/L 21.0-32.0 [facility] Urea nitrogen/Creatinine [Mass ratio] 18.4 mg/mg 10-20 [facility] No Panel InformationOrdered By: Morris Carr on 12-04-2022 Estimated GFR (MDRD) Amer 97 mL/min >60 [facility] Comment on above: GFR Calc Estimated GFR (MDRD) Non-Af Amer 81 mL/min >60 [facility] Comment on above: Non- GFR Calc Serum or plasma calcium raul urement (mass/volume)Ordered By: Morris Carr on 12-04-2022 Calcium [Mass/Vol] 8.5 mg/dL 8.5-10.1 [facility] Serum or plasma creatinine m easurement (mass/volume)Ordered By: Morris Carr on 12-04-2022 Creatinine [Mass/Vol] 0.76 mg/dL 0.55-1.02 [facility] Comment on above: The validity of the calculated GFR & GFRAA in patients over 70 years has not been determined. Clinical correlation is essential. Serum or plasma urea nitroge n measurement (mass/volume)Ordered By: Morris Carr on 12-04-2022 Urea nitrogen [Mass/Vol] 14 mg/dL 7-18 [facility] Thin prep Papanicolaou smear with manual screeningOrdered By: Morris Carr on 12-04-2022 Thin prep Papanicolaou smear with manual screening 3 5-15 [facility] Basophil percentageOrdered B y: Morris Carr on 12-01-2022 Bilirubin [Mass/Vol] 0.40 mg/dL 0.20-1.00 [facility] Comment on above: For patients on eltr ombopag therapy, use of Dimension [place] TBIL is not recommended. Chloride [Moles/Vol] 107 mmol/L 98-107 [facility] Cholesterol [Mass/Vol] 121 mg/dL <200 [facility] Comment on above: <200 mg/dL Desirable 200-240 mg/dL Borderline >240 mg/dL High Risk Glucose [Mass/Vol] 87 mg/dL 74-106 [facility] Potassium [Moles/Vol] 3.8 mmol/L 3.5-5.1 [facility] Protein [Mass/Vol] 7.1 g/dL 6.4-8.2 [facility] Sodium [Moles/Vol] 140 mmol/L 136-145 [facility] Triglyceride [Mass/Vol] 49 mg/dL <199 [facility] Comment on above: The drugs N-Acetylcy steine and Metamizole may falsely depress this assay.Serum Triglycerides Reference Interval Normal <150 mg/dL Borderline high 150 - 199 mg/dL High 200 - 499 mg/dL Very High > or = 500 mg/dL Direct bilirubinOrdered By: Morris Carr on 12-01-2022 Bilirubin.direct [Mass/Vol] 0.16 mg/dL 0.00-0.30 [facility] Laboratory - Chemistry and C hemistry - challengeOrdered By: Morris Carr on 12-01-2022 ALP [Catalytic activity/Vol] 85 U/L 45-117 [facility] ALT [Catalytic activity/Vol] 11 U/L 13-56 [facility] CO2 [Moles/Vol] 27.0 mmol/L 21.0-32.0 [facility] Globulin (S) [Mass/Vol] 3.9 g/dL 2.2-4.2 [facility] Urea nitrogen/Creatinine [Mass ratio] 16.0 mg/mg 10-20 [facility] No Panel InformationOrdered By: Morris Carr on 12-01-2022 Estimated GFR (MDRD) Amer 90 mL/min >60 [facility] Comment on above: GFR Calc Estimated GFR (MDRD) Non-Af Amer 74 mL/min >60 [facility] Comment on above: Non- GFR Calc Serum or plasma albumin raul urement (mass/volume)Ordered By: Morris Carr on 12-01-2022 Albumin [Mass/Vol] 3.2 g/dL 3.2-5.0 [facility] Serum or plasma calcium raul urement (mass/volume)Ordered By: Morris Carr on 12-01-2022 Calcium [Mass/Vol] 8.7 mg/dL 8.5-10.1 [facility] Serum or plasma cholesterol in HDL measurement (mass/volume)Ordered By: Morris Carr on 12-01-2022 Cholesterol in HDL [Mass/Vol] 64 mg/dL >40 [facility] Comment on above: The drugs N-Acetylcy steine and Metamizole may falsely depress this assay. Reference Range HDL <40 mg/dL Low HDL Cholesterol HDL >or= 60 mg/dL High HDL Cholesterol Serum or plasma cholesterol in VLDL measurement (mass/volume)Ordered By: Morris Carr on 12-01-2022 Cholesterol in VLDL [Mass/Vol] 10 mg/dL 5-40 [facility] Serum or plasma creatinine m easurement (mass/volume)Ordered By: Morris Carr on 12-01-2022 Creatinine [Mass/Vol] 0.81 mg/dL 0.55-1.02 [facility] Comment on above: The validity of the calculated GFR & GFRAA in patients over 70 years has not been determined. Clinical correlation is essential. Serum or plasma low density lipoprotein (LDL) cholesterol measurement (mass/volume)Ordered By: Morris Carr on 12-01-2022 Cholesterol in LDL [Mass/Vol] 47 mg/dL 0-130 [facility] Serum or plasma urea nitroge n measurement (mass/volume)Ordered By: Morris Carr on 12-01-2022 Urea nitrogen [Mass/Vol] 13 mg/dL 7-18 [facility] Thin prep Papanicolaou smear with manual screeningOrdered By: Morris Carr on 12-01-2022 Thin prep Papanicolaou smear with manual screening 8 U/L 15-37 [facility] Thin prep Papanicolaou smear with manual screening 6 5-15 [facility] CNOVon 01-27-2022 [facility] Office Visit (AGHWW1 ) VIGNESHCLARIBEL JAY ([id number]) 1955 F Date Time Provider Department 01/27/22 10:30 AM YASMANY ROMAN AGHWW1 During your visit today, we recorded the following information about you: Respiration Weight Height 18/minute 68 kg 1.651 m Yasmany Roman MD 01/27/2022 10:58 AM Signed 01/27/2022 RE: Claribel Stoll DATE OF : 1955 Vitals: Resp 18 Ht 5' 5" (1.65m) Wt 150 lb (68.0kg) BMI 24.96 kg/(m2). FOLLOW UP VISIT: Post insertion hemiarthroplasty left hip HPI: She is not having significant discomfort in her left hip. She has been working on ambulation at the group home. REVIEW OF SYSTEMS: MUSCULOSKELETAL: Negative for joint pain or swelling, back pain or muscle pain History reviewed. No pertinent past medical history. History reviewed. No pertinent surgical history. Social History Tobacco Use Smoking status: Former Substance Use Topics Alcohol use: Yes Comment: occasional Drug use: Never ALLERGIES No Known Allergies Current Medications: Current Outpatient Medications Medication Sig Dispense Refill calcium polycarbophil (FIBERCON) 625 mg tablet Take 625 mg by mouth daily at bedtime. citalopram (CELEXA) 20 mg tablet Take 20 mg by mouth once daily. melatonin 1 mg tablet Take 5 mg by mouth. gabapentin (NEURONTIN) 100 mg capsule Take 200 mg by mouth three times daily. buPROPion XL (WELLBUTRIN XL) 150 mg 24 hr tablet Take 150 mg by mouth daily at bedtime. prazosin HCl (PRAZOSIN ORAL) Take 1 mg by mouth daily at bedtime. LORazepam (ATIVAN) 0.5 mg Take 0.5 mg by mouth three times daily. haloperidol (HALDOL) 0.5 mg tablet Take 0.5 mg by mouth four times daily. 0600/1200/1800/0000 atorvastatin (LIPITOR) 20 mg tablet Take 20 mg by mouth once daily. d-mannose (AZO D-MANNOSE) 500 mg cap Take 500 mg by mouth twice daily. rqwkvp-kcymguqz-snlkad e (CREON 6) 6,000-19,000 -30,000 unit delayed release capsule Take by mouth twice daily with meals. Please administer with snacks- and with snacks 3xday PRN acetaminophen 325 mg cap Take 1,000 mg by mouth as needed. ondansetron (ZOFRAN) 4 mg tablet Take 4 mg by mouth every 6 hours as needed for nausea/vomiting. guaiFENesin (MUCINEX) 600 mg 12 hr tablet Take 600 mg by mouth twice daily as needed for cold/allergy symptoms. rivaroxaban (XARELTO ORAL) Take 15 mg by mouth DAILY AT 6 PM. levothyroxine (SYNTHROID) 50 mcg tablet Take 1 tablet by mouth DAILY (6 AM). 30 tablet 0 No current facility-administered medications for this visit. PHYSICAL EXAMINATION: There is good range of motion left hip without pain. Incision noted to be healing nicely. RADIOGRAPHIC EXAMINATION: See note IMPRESSION: Subcapital fracture left hip with hemiarthroplasty PLAN: She should continue with progression of weightbearing ambulation as tolerated. I do not need to see any additional x-rays. Return as needed. Yasmany Roman MD Allergies As of Date: 01/27/2022 (No Known Allergies) Date Reviewed: 01/27/2022 Reviewed by: Yasmany Roman MD - Fully Assessed Reason for Visit: Post Op [174] Primary Visit Diagnosis:Closed subcapital fracture of left femur with routine healing, subsequent encounter [S72.012D] Order(s):XR HIP 2V AP/LAT LEFT (AK,FL,ME) [[id number]] Order #: [id number] Prescriptions as of 01/27/2022 - calcium polycarbophil (FIBERCON) 625 mg tablet Take 625 mg by mouth daily at bedtime. - citalopram (CELEXA) 20 mg tablet Take 20 mg by mouth once daily. - melatonin 1 mg tablet Take 5 mg by mouth. - gabapentin (NEURONTIN) 100 mg capsule Take 200 mg by mouth three times daily. - buPROPion XL (WELLBUTRIN XL) 150 mg 24 hr tablet Take 150 mg by mouth daily at bedtime. - prazosin HCl (PRAZOSIN ORAL) Take 1 mg by mouth daily at bedtime. - LORazepam (ATIVAN) 0.5 mg Take 0.5 mg by mouth three times daily. - haloperidol (HALDOL) 0.5 mg tablet Take 0.5 mg by mouth four times daily. 0600/1200/1800/0000 - atorvastatin (LIPITOR) 20 mg tablet Take 20 mg by mouth once daily. - d-mannose (AZO D-MANNOSE) 500 mg cap Take 500 mg by mouth twice daily. - duleqf-znvixwuj-atxamb e (CREON 6) 6,000-19,000 -30,000 unit delayed release capsule Take by mouth twice daily with meals. Please administer with snacks- and with snacks 3xday PRN - acetaminophen 325 mg cap Take 1,000 mg by mouth as needed. - ondansetron (ZOFRAN) 4 mg tablet Take 4 mg by mouth every 6 hours as needed for nausea/vomiting. - guaiFENesin (MUCINEX) 600 mg 12 hr tablet Take 600 mg by mouth twice daily as needed for cold/allergy symptoms. - rivaroxaban (XARELTO ORAL) Take 15 mg by mouth DAILY AT 6 PM. - levothyroxine (SYNTHROID) 50 mcg tablet Take 1 tablet by mouth DAILY (6 AM). Problem List As Of Date 01/27/2022 Noted Resolved Sacral wound [S31.000A] 05/10/2018 Closed fracture of proximal end of humerus [S42*05/10/2018 Hypona (more content not included)... Normal [facility] Basophil percentageon 2021 Chloride [Moles/Vol] 108 mmol/L 98-107 [facility] Work Phone: Glucose [Mass/Vol] 100 mg/dL 74-106 [facility] Work Phone: Comment on above: Fasting Glucose resu lt from 100 to 125 mg/dL suggests IMPAIRED HOMEOSTASIS per A.D.A. criteria. Potassium [Moles/Vol] 4.3 mmol/L 3.5-5.1 [facility] Work Phone: Sodium [Moles/Vol] 141 mmol/L 136-145 [facility] Work Phone: Laboratory - Chemistry and C hemistry - challengeon 01-10-2022 CO2 [Moles/Vol] 28.0 mmol/L 21.0-32.0 [facility] Work Phone: [phone] Urea nitrogen/Creatinine [Mass ratio] 15.4 mg/mg 10-20 [facility] Work Phone: [phone] No Panel Informationon 01-10 Estimated GFR (MDRD) Amer 105 mL/min >60 [facility] Work Phone: [phone] Comment on above: GFR Calc Estimated GFR (MDRD) Non-Af Amer 87 mL/min >60 [facility] Work Phone: Comment on above: Non- GFR Calc Serum or plasma calcium raul urement (mass/volume)on 01-10-2022 Calcium [Mass/Vol] 9.1 mg/dL 8.5-10.1 [facility] Work Phone: [phone] Serum or plasma creatinine m easurement (mass/volume)on 01-10-2022 Creatinine [Mass/Vol] 0.72 mg/dL 0.55-1.02 [facility] Work Phone: Comment on above: The validity of the calculated GFR & GFRAA in patients over 70 years has not been determined. Clinical correlation is essential. Serum or plasma urea nitroge n measurement (mass/volume)on 01-10-2022 Urea nitrogen [Mass/Vol] 11 mg/dL 7-18 [facility] Work Phone: [phone] Thin prep Papanicolaou smear with manual screeningon 01-10-2022 Thin prep Papanicolaou smear with manual screening 5 5-15 [facility] Work Phone: Basophil percentageon 2021 Chloride [Moles/Vol] 103 mmol/L 98-107 [facility] Work Phone: [phone] Cholesterol [Mass/Vol] mg/dL <200 [facility] Work Phone: [phone] Comment on above: <200 mg/dL Desirable 200-240 mg/dL Borderline >240 mg/dL High Risk Glucose [Mass/Vol] 104 mg/dL 74-106 [facility] Work Phone: [phone] Comment on above: Fasting Glucose resu lt from 100 to 125 mg/dL suggests IMPAIRED HOMEOSTASIS per A.D.A. criteria. Potassium [Moles/Vol] 4.4 mmol/L 3.5-5.1 [facility] Work Phone: [phone] Sodium [Moles/Vol] 138 mmol/L 136-145 [facility] Work Phone: [phone] Triglyceride [Mass/Vol] 128 mg/dL <199 [facility] Work Phone: [phone] Comment on above: The drugs N-Acetylcy steine and Metamizole may falsely depress this assay.Serum Triglycerides Reference Interval Normal <150 mg/dL Borderline high 150 - 199 mg/dL High 200 - 499 mg/dL Very High > or = 500 mg/dL WBC (Bld) [#/Vol] 12.0 10*3/uL 4.4-11.0 [facility] Work Phone: [phone] Blood erythrocytes count (nu mber/volume)on 12-28-2021 RBC (Bld) [#/Vol] 3.10 10*6/uL 4.2-5.4 [facility] Work Phone: [phone] Blood hemoglobin measurement (mass/volume)on 12-28-2021 Hemoglobin (Bld) [Mass/Vol] 9.0 g/dL 12.0-15.0 [facility] Work Phone: [phone] Blood platelet mean volumeon 12-28-2021 Platelet mean volume (Bld) [Entitic vol] 9.6 fL 6.2-12.0 [facility] Work Phone: [phone] Determination of erythrocyte mean corpuscular volume (MCV)on 12-28-2021 MCV (RBC) [Entitic vol] 94.2 fL 81-99 [facility] Work Phone: [phone] Hematocrit Auto (Bld) [Volum e fraction]on 12-28-2021 Hematocrit (Bld) [Volume fraction] 29.2 % 37-47 [facility] Work Phone: Laboratory - Chemistry and C hemistry - challengeon 12-28-2021 CO2 [Moles/Vol] 29.0 mmol/L 21.0-32.0 [facility] Work Phone: [phone] Urea nitrogen/Creatinine [Mass ratio] 16.3 mg/mg 10-20 [facility] Work Phone: [phone] Laboratory - Hematology and Cell countson 12-28-2021 Erythrocyte distribution width (RBC) [Entitic vol] 46.6 fL 35.1-43.9 [facility] Work Phone: [phone] Erythrocyte distribution width (RBC) [Ratio] 13.6 % 11.6-14.6 [facility] Work Phone: [phone] MCH (RBC) [Entitic mass] 29.0 pg 27.0-32.0 [facility] Work Phone: [phone] MCHC Auto (RBC) [Mass/Vol]on 12-28-2021 MCHC (RBC) [Mass/Vol] 30.8 g/dL 32-36 [facility] Work Phone: No Panel Informationon 12-28 Estimated GFR (MDRD) Amer 46 mL/min >60 [facility] Work Phone: Comment on above: GFR Calc Estimated GFR (MDRD) Non-Af Amer 38 mL/min >60 [facility] Work Phone: [phone] Comment on above: Non- GFR Calc Platelets bldon 12-28-2021 Platelets (Bld) [#/Vol] 590 10*3/uL 150-450 [facility] Work Phone: [phone] Serum or plasma calcium raul urement (mass/volume)on 12-28-2021 Calcium [Mass/Vol] 9.0 mg/dL 8.5-10.1 [facility] Work Phone: [phone] Serum or plasma cholesterol in HDL measurement (mass/volume)on 12-28-2021 Cholesterol in HDL [Mass/Vol] 12 mg/dL >40 [facility] Work Phone: Comment on above: The drugs N-Acetylcy steine and Metamizole may falsely depress this assay. Reference Range HDL <40 mg/dL Low HDL Cholesterol HDL >or= 60 mg/dL High HDL Cholesterol Serum or plasma cholesterol in VLDL measurement (mass/volume)on 12-28-2021 Cholesterol in VLDL [Mass/Vol] 26 mg/dL 5-40 [facility] Work Phone: Serum or plasma creatinine m easurement (mass/volume)on 12-28-2021 Creatinine [Mass/Vol] 1.47 mg/dL 0.55-1.02 [facility] Work Phone: Comment on above: The validity of the calculated GFR & GFRAA in patients over 70 years has not been determined. Clinical correlation is essential. Serum or plasma low density lipoprotein (LDL) cholesterol measurement (mass/volume)on 12-28-2021 Cholesterol in LDL [Mass/Vol] TNP [facility] Work Phone: Comment on above: Test not performed Serum or plasma urea nitroge n measurement (mass/volume)on 12-28-2021 Urea nitrogen [Mass/Vol] 24 mg/dL 7-18 [facility] Work Phone: Thin prep Papanicolaou smear with manual screeningon 12-28-2021 Thin prep Papanicolaou smear with manual screening 6 5-15 [facility] Work Phone: Basic metabolic 2000 panelon 12-24-2021 Anion gap [Moles/Vol] 10 mmol/L Normal 9-18 [facility] Comment on above: Order Comment: Speci men Type: BLOOD SPECIMENOrdering Facility: [facility] Address: [address] [place] [address] Performed By: #### 2 4321-2 ####[facility] LABORATORYCLIA [id number] [place] [address] [place] Calcium [Mass/Vol] 9.2 mg/dL Normal 8.5-10.2 [facility] Comment on above: Order Comment: Speci men Type: BLOOD SPECIMENOrdering Facility: [facility] Address: [address] [place] [address] Performed By: #### 2 4321-2 ####[facility] LABORATORYCLIA [id number] [address] [place] Chloride [Moles/Vol] 102 mmol/L Normal 97-105 [facility] Comment on above: Order Comment: Speci men Type: BLOOD SPECIMENOrdering Facility: [facility] Address: [address] [place] [address] Performed By: #### 2 4321-2 ####[facility] LABORATORYCLIA [id number] [address] [place] CO2 [Moles/Vol] 27 mmol/L Normal 22-30 [facility] Comment on above: Order Comment: Speci men Type: BLOOD SPECIMENOrdering Facility: [facility] Address: [address] [place] [address] Performed By: #### 2 4321-2 ####[facility] LABORATORYCLIA [id number] [address] OF [facility] Creatinine [Mass/Vol] 0.85 mg/dL Normal 0.58-0.96 [facility] Comment on above: Order Comment: Speci men Type: BLOOD SPECIMENOrdering Facility: [facility] Address: [address] [place] [address] Performed By: #### 2 4321-2 ####[facility] LABORATORYCLIA [id number] [address] ESTIMATED GLOMERULAR FILTRATION RATE 75 mL/min/1.73m??? Normal >=60 [facility] Comment on above: Order Comment: Speci men Type: BLOOD SPECIMENOrdering Facility: [facility] Address: [address] [place] [address] Result Comment: Jessa mated Glomerular Filtration Rate (eGFR) is calculated using the 2020 CKD-EPI creatinine equation. This equation utilizes serum creatinine, sex, and age as parameters. The creatinine assay has traceable calibration to isotope dilution-mass spectrometry. Refer to KDIGO guidelines for clinical interpretation. In patients with unstable renal function, e.g. those with acute kidney injury, the eGFR may not accurately reflect actual GFR. Performed By: #### 2 4321-2 ####[facility] LABORATORYCLIA [id number] [place] [address] [place] Glucose [Mass/Vol] 96 mg/dL Normal 74-99 [facility] Comment on above: Order Comment: Kinsey javier Type: BLOOD SPECIMENOrdering Facility: [facility] Address: [address] [place] [address] Result Comment: The [place] Diabetes Association (ADA) provides guidance for cutoff values for fasting glucose and random glucose. The ADA defines fasting as no caloric intake for at least 8 hours. Fasting plasma glucose results between 100 to 125 mg/dL indicate increased risk for diabetes (prediabetes). Fasting plasma glucose results greater than or equal to 126 mg/dL meet the criteria for diagnosis of diabetes. In the absence of unequivocal hyperglycemia, results should be confirmed by repeat testing. In a patient with classic symptoms of hyperglycemia or hyperglycemic crisis, random plasma glucose results greater than or equal to 200 mg/dL meet the criteria for diagnosis of diabetes. Reference: Standards of Medical Care in Diabetes 2016, [place] [employer] Association. Diabetes Care. 2016.39(Suppl 1). Performed By: #### 2 4321-2 ####[facility]ATORYCLIA [id number] [place] [address] [place] Potassium [Moles/Vol] 3.8 mmol/L Normal 3.7-5.1 [facility] Comment on above: Order Comment: Kinsey javier Type: BLOOD SPECIMENOrdering Facility: [facility] Address: [address] [place] [address] Performed By: #### 2 4321-2 ####[facility]ORATORYCLIA [id number] [place] [id number] [place] Sodium [Moles/Vol] 139 mmol/L Normal 136-144 [facility] Comment on above: Order Comment: Kinsey javier Type: BLOOD SPECIMENOrdering Facility: [facility] Address: [address] [place] [address] Performed By: #### 2 4321-2 ####[facility]ORATORYCLIA [id number] [place] [address] [place] Urea nitrogen [Mass/Vol] 7 mg/dL Normal 7-21 [facility] Comment on above: Order Comment: Speci men Type: BLOOD SPECIMENOrdering Facility: [facility] Address: [place] [address] Performed By: #### 2 4321-2 ####[facility]ORATORYCLIA [id number] [place] [address] [place] CASE MANAGEMon 12-24-2021 CASE MANAGEM HNO ID: [id number] Author: AZEB Simeon Service: ? Author Type: Community Affairs Manager Type: Care Mgt Progress Note Filed: 12/24/2021 4:30 PM Note Text: CARE MANAGEMENT DISCHARGE NOTE SERVICE DATE: 12/24/2021 SERVICE TIME: 4:22 PM LOS: 11 days Admission Date: 12/13/2021 DISCHARGE ARRANGEMENT (list agency and phone number) Discharge Arrangement: Alf Facility Was an expedited discharge program used?: No Provider Name: [facility] CAREGIVER ASSESSMENT: Caregiver is ready, willing and able to meet the patient's needs as recommended by the inter-professional team:: Yes Patient's transition needs and plan for meeting these needs: DC return to [facility] HANDOFF COMMUNICATION: Handoff to: Other Caregiver Other Caregiver Name/Phone: [facility] TRANSPORTATION ARRANGEMENTS: Transportation Arrangements: Ambulance Transportation Agency and Phone #:: [facility] ( [facility] ) [phone] / [phone] Date of Trip: 12/24/21 Time of Trip: 1929 Type of Service: BLS Non-emergency Is Patient Medicaid Pending?: No Was transportation financial coverage discussed with family?: Patient;Family Nursing Program Chair Location: [facility] Destination: [facility] Financial Care Management Responsibility: None ADDITIONAL CONTACT RESOURCES: CM spoke with Pt's insurance and the SNF this date to confirm that Pt's insurance is [employer] and is able to return to [facility] today. CM left message for Pt's family, Garry and Missy. There are no dc concerns. Transport arranged for 1929. [facility] Bedside nurse updated. DC packet with chart. SIGNATURE: AZEB Simeon PATIENT NAME: Claribel Stoll DATE: December 24, 2021 TIME: 4:22 PM PAGER/CONTACT #: [phone] Normal [facility] CBC W Auto Differential pane l (Bld)on 12-24-2021 Basophils (Bld) [#/Vol] 0.09 10*3/uL Normal <0.11 [facility] Comment on above: Order Comment: Speci men Type: BLOOD SPECIMEN [facility] Address: [address] [place] [address] Performed By: #### T SCR #### [facility] CLIA [id number] [address] Basophils/100 WBC (Bld) 0.7 % Normal [facility] Comment on above: Order Comment: Speci men Type: BLOOD SPECIMEN [facility] Address: [address] [place] [address] Performed By: #### T SCR #### [facility] CLIA [id number] [address] Differential cell count method Nom (Bld) Auto Normal [facility] Comment on above: Order Comment: Speci men Type: BLOOD SPECIMEN [facility] Address: [address] [place] [address] Performed By: #### T SCR #### [facility] CLIA [id number] [address] OF [facility] Eosinophils (Bld) [#/Vol] 0.40 10*3/uL Normal <0.46 [facility] Comment on above: Order Comment: Speci men Type: BLOOD SPECIMEN [facility] Address: [address] [place] [address] Performed By: #### T SCR #### [facility] CLIA [id number] [address] Eosinophils/100 WBC (Bld) 3.1 % Normal [facility] Comment on above: Order Comment: Speci men Type: BLOOD SPECIMEN [facility] Address: [address] [place] [address] Performed By: #### T SCR #### [facility] CLIA [id number] [address] OF [facility] Erythrocyte distribution width (RBC) [Ratio] 13.8 % Normal 11.5-15.0 [facility] Comment on above: Order Comment: Speci men Type: BLOOD SPECIMEN [facility] Address: [address] [place] [address] Performed By: #### T SCR #### [facility] CLIA [id number] [address] [place] Hematocrit (Bld) [Volume fraction] 31.7 % Low 36.0-46.0 [facility] Comment on above: Order Comment: Speci men Type: BLOOD SPECIMEN [facility] Address: [address] [place] [address] Performed By: #### T SCR #### [facility] CLIA [id number] [address] [place] Hemoglobin (Bld) [Mass/Vol] 9.8 g/dL Low 11.5-15.5 [facility] Comment on above: Order Comment: Speci men Type: BLOOD SPECIMEN [facility] Address: [address] [place] [address] Performed By: #### T SCR #### [facility] CLIA [id number] [address] [place] Immature granulocytes (Bld) [#/Vol] 0.23 10*3/uL High <0.10 [facility] Comment on above: Order Comment: Speci men Type: BLOOD SPECIMEN [facility] Address: [address] [place] [address] Performed By: #### T SCR #### [facility] CLIA [id number] [address] Immature granulocytes/100 WBC (Bld) 1.8 % Normal [facility] Comment on above: Order Comment: Speci men Type: BLOOD SPECIMEN [facility] Address: [address] [place] [address] Performed By: #### T SCR #### [facility] CLIA [id number] [address] [place] Lymphocytes (Bld) [#/Vol] 4.60 10*3/uL High 1.00-4.00 [facility] Comment on above: Order Comment: Speci men Type: BLOOD SPECIMEN [facility] Address: [address] [place] [address] Performed By: #### T SCR #### [facility] CLIA [id number] [address] Lymphocytes/100 WBC (Bld) 35.2 % Normal [facility] Comment on above: Order Comment: Speci men Type: BLOOD SPECIMEN [facility] Address: [address] [place] [address] Performed By: #### T SCR #### [facility] CLIA [id number] [address] MCH (RBC) [Entitic mass] 29.0 pg Normal 26.0-34.0 [facility] Comment on above: Order Comment: Speci men Type: BLOOD SPECIMEN [facility] Address: [address] [place] [address] Performed By: #### T SCR #### [facility] CLIA [id number] [address] MCHC (RBC) [Mass/Vol] 30.9 g/dL Normal 30.5-36.0 [facility] Comment on above: Order Comment: Speci men Type: BLOOD SPECIMEN [facility] Address: [address] [place] [address] Performed By: #### T SCR #### [facility] CLIA [id number] [address] MCV (RBC) [Entitic vol] 93.8 fL Normal 80.0-100.0 [facility] Comment on above: Order Comment: Speci men Type: BLOOD SPECIMEN [facility] Address: [address] [place] [address] Performed By: #### T SCR #### [facility] CLIA [id number] [address] [place] Monocytes (Bld) [#/Vol] 1.21 10*3/uL High <0.87 [facility] Comment on above: Order Comment: Speci men Type: BLOOD SPECIMEN [facility] Address: [address] [place] [address] Performed By: #### T SCR #### [facility] CLIA [id number] [address] Monocytes/100 WBC (Bld) 9.3 % Normal [facility] Comment on above: Order Comment: Speci men Type: BLOOD SPECIMEN [facility] Address: [address] [place] [address] Performed By: #### T SCR #### [facility] CLIA [id number] [address] [place] Neutrophils (Bld) [#/Vol] 6.53 10*3/uL Normal 1.45-7.50 [facility] Comment on above: Order Comment: Speci men Type: BLOOD SPECIMEN [facility] Address: [address] [place] [address] Performed By: #### T SCR #### [facility] CLIA [id number] [address] OF [facility] Neutrophils/100 WBC (Bld) 49.9 % Normal [facility] Comment on above: Order Comment: Speci men Type: BLOOD SPECIMEN [facility] Address: [address] [place] [address] Performed By: #### T SCR #### [facility] CLIA [id number] [address] Nucleated RBC (Bld) [#/Vol] 0.03 10*3/uL High <0.01 [facility] Comment on above: Order Comment: Speci men Type: BLOOD SPECIMEN [facility] Address: [address] [place] [address] Performed By: #### T SCR #### [facility] CLIA [id number] [address] [place] Nucleated RBC/100 WBC (Bld) [Ratio] 0.2 /100 WBC Normal [facility] Comment on above: Order Comment: Speci men Type: BLOOD SPECIMEN [facility] Address: [address] [place] [address] Performed By: #### T SCR #### [facility] CLIA [id number] [address] [place] Platelet mean volume (Bld) [Entitic vol] 8.7 fL Low 9.0-12.7 [facility] Comment on above: Order Comment: Speci men Type: BLOOD SPECIMEN [facility] Address: [address] [place] [address] Performed By: #### T SCR #### [facility] CLIA [id number] [address] [place] Platelets (Bld) [#/Vol] 557 10*3/uL High 150-400 [facility] Comment on above: Order Comment: Speci men Type: BLOOD SPECIMEN [facility] Address: [address] [place] [address] Performed By: #### T SCR #### [facility] CLIA [id number] [address] [place] RBC (Bld) [#/Vol] 3.38 10*6/uL Low 3.90-5.20 [facility] Comment on above: Order Comment: Kinsey herrera Type: BLOOD SPECIMEN [facility] Address: [address] [place], [place] [id number] Performed By: #### T SCR #### [facility] CLIA [id number] [address] WBC (Bld) [#/Vol] 13.06 10*3/uL High 3.70-11.00 [facility] Comment on above: Order Comment: Kinsey herrera Type: BLOOD SPECIMEN [facility] Address: [address] [place] [address] Performed By: #### T SCR #### [facility] CLIA [id number] [address] CNDSon 12-24-2021 [facility] HNO ID: [id number] Author: Jocelyne Melton APRN.CARDIOPULMONARY TECHNOLOGIST CHIEF Service: Orthopaedic Surgery Author Type: Nurse Practitioner Type: Discharge Summary Filed: 12/24/2021 2:20 PM Note Text: Attestation signed by Yasmany Roman MD at 12/24/2021 3:52 PM Attending Note I personally saw and examined the patient. I reviewed the resident's note. I agree with the resident's assessment and plan unless otherwise noted. Signature: Yasmany Roman MD Date: 12/24/2021 Time: 3:52 PM DISCHARGE SUMMARY PATIENT NAME: Claribel Stoll Code Status: Not on file Highest Readmission Risk Score: 37 The 30 day readmissions risk score is derived from an internally validated risk model which evaluates patient level characteristics, utilization history, medication orders and lab results up until the day of discharge. Patients with a score of 40 or above are considered highest risk for readmission. Specific patient level drivers will be listed at the bottom of the summary. Admission Information Admission Information ADMIT DATE: 12/13/2021 DISCHARGE DATE: 12/24/2021 MY DOCTORS AND MEDICAL TEAM: My Main Hospital Doctor: Yasmany Roman MD Primary Care Provider: No primary care provider on file. My Medical Team Members: Treatment Team: Attending Provider: Yasmany Roman MD Consulting: Tien Rockwell MY CONDITION AT DISCHARGE: Stable REASON I WAS IN THE HOSPITAL: Left hip fracture SUMMARY OF WHAT HAPPENED WHILE I WAS IN THE HOSPITAL: You came into the hospital after a fall and found to have a left femoral neck fracture. Taken to surgery the following day and had a left hip hemiarthroplasty. Stable condition on nursing floor. Seen by PT/OT and discharged in stable condition. OTHER PROBLEMS/DIAGNOSIS: Principal Problem: Closed displaced fracture of left femoral neck (HCC) Resolved Problems: * No resolved hospital problems. * OPERATIONS PERFORMED WHILE IN THE HOSPITAL: Left hip hemiarthroplasty Call to make follow up appointment with Discharge Disposition Discharge Disposition: Alf Facility - Less than 30 Days Activity When You Leave the Hospital Other: Weight bearing as tolerated left lower extremity Diet Instructions Resume your pre-hospital diet For Pain When You Leave the Hospital Continue taking previously prescribed pain medications as directed If you become constipated, you may use any zvri-kgz-mvbhmmh treatment such as Milk of Magnesia, Sennakot, Prune Juice, Suppositories, etc. in addition to the stool softener/fiber supplement No alcohol or driving while on pain medication Use acetaminophen (Tylenol) as recommended on the bottle Use ibuprofen (Motrin, Advil) as recommended on the bottle Use the dispensed medication (see prescription) You should use an ueca-uru-siozlox stool softener (Docusate sodium) and/or a fiber supplement (Metamucil, Fiber Con) every day while taking prescribed pain medication Wound/Surgical Site Care Other: Maintain dressing until 12/24/2021, then can remove. Once dressing removed, wash with soap and water and pat area dry. No creams, lotions, powders, alcohol or peroxide to incisional area. Leave open to air. Call Your Doctor If There is an unusual odor from the wound area There is severe pain at the operative site You have persistent or heavy bleeding You have redness, swelling, pus or drainage from the wound Your temperature is greater than 101F FOLLOW-UP APPOINTMENTS ALREADY SCHEDULED WITH A [facility] PROVIDER: No future appointments. ALLERGIES No Known Allergies DISCHARGE MEDICATION: Current Discharge Medication List START taking these medications oxyCODONE IR (ROXICODONE) 5 mg Take 5 mg by mouth every 6 hours as needed. Qty: 4 tablet Refills: 0 Associated Diagnoses:Closed fracture of neck of left femur, initial encounter ([facility]) CONTINUE these medications which have NOT CHANGED FIBERCON 625 mg Take 625 mg by mouth daily at bedtime. citalopram (CeleXA) 20 mg Take 20 mg by mouth once daily. melatonin 5 mg Take 5 mg by mouth. gabapentin (NEURONTIN) 200 mg Take 200 mg by mouth three times daily. buPROPion XL (WELLBUTRIN XL) 150 mg Take 150 mg by mouth daily at bedtime. prazosin HCl (PRAZOSIN ORAL) 1 mg Take 1 mg by mouth daily at bedtime. LORazepam (ATIVAN) 0.5 mg Take 0.5 mg by mouth three times daily. haloperidol (HALDOL) 0.5 mg Take 0.5 mg by mouth four times daily. class="HTML_HHS"> 0600/1200/1800/0000 atorvastatin (LIPITOR) 20 mg Take 20 mg by mouth once daily. AZO D-MANNOSE 500 mg Take 500 mg by mouth twice daily. eroqzv-vxrnfmsu-mrkrgo e (CREON 6) 6,000-19,000 -30,000 unit delayed release capsule Take by mouth twice daily with meals. Please administer with snacks- and with snacks 3xday (more content not included)... Normal [facility] SARS-CoV-2 RNA Resp Ql JEANA+p madelynabida 12-24-2021 SARS-CoV-2 (COVID-19) RNA JEANA+probe Ql (Resp) COVID 19 RESULT: SARS-CoV-2 (Agent of COVID-19) Not Detected by RT-PCR or equivalent method. This test has been authorized by FDA under an Emergency Use Authorization (EUA). Normal [facility] Comment on above: Performed By: #### 9 4500-6 ####[facility]ATORYCLIA [id number] [place] [address] [place] THERAPY NTon 12-24-2021 THERAPY NT HNO ID: [id number] Author: Jesus Enrique PTA Service: Physical Therapy Author Type: Professor Of Physical Education Type: Therapy (PT/OT/Speech/Resp) Filed: 12/24/2021 2:25 PM Note Text: Attestation signed by Romero Harley PT at 12/24/2021 3:52 PM I reviewed and agree with the documentation corresponding to this therapy visit. SIGNATURE: Romero Harley PT DATE: December 24, 2021 TIME: 3:52 PM Physical Therapy Treatment SERVICE DATE: 12/24/2021 SERVICE TIME: 1351 to 1414 ROOM: [id number] Recommended Discharge Disposition: Subacute/SNF Recommended Discharge Disposition Due to: Patient requires daily, facility-based rehabilitation from at least one discipline due to:;decline in functional status requiring daily skilled care PT 6 Clicks Score: 11 Patient continues to require increased assist with all mobility tasks. Patient with slightly improved gait distances this session. Patient continues to require increased cuing throughout session. 0/3 recall of hip precautions, stated there are 8 or 9 of them". Patient continues to be recommended for subacute/SNF to improve strength, balance, endurance, increased ambulation distances with normalize gait pattern, and increased independence with functional task performance/mobility to prior level of function. Additional personal present during this visit: Shantelle Castro Precautions/Activity Restrictions: Weight Bearing Restrictions;Hip Precautions - Posterior Dislocation Isolation Type: None Extremity With Weight Bearing Restricted: Left Lower Extremity Left Lower Extremity Weight Bearing Status: WBAT Current Hospital Course: S/p L hemiarthroplasty. Patient also had a fall in hospital 12/15 with no injury. Reason for Hospital Admission: Fall Relevant Past Medical History: dementia, anxiety, depression, humeral fx Response to Therapy Interventions: Good participation in activities, Cognitive deficits, Requires additional time to complete activities, Needs frequent redirection or re-instruction Continue skilled needs due to: Functional mobility/skill impairments, Safety concerns Physical Therapy Problem List: Education Deficit;Safety Deficits;Decreased Activity Tolerance;Decreased Strength;Functional Mobility Impairment;Balance Impaired Treatment Interventions: Education;Strengthenin g;Functional Mobility Training;Balance Training Plan for next visit: Bed mobility, Chair transfer training, Gait training, Exercise instruction/handout, Sit to Stand Transfers, Standing Balance, Standing Tolerance Home Environment Patient Lives With: Facility Care Assistance Available: 24-Hour Equipment Owned: Rollator;Shower Chair Prior Functional Level: Required Assistance Assistance Required With: Laundry;Cleaning;Trans portation;Shopping;Anika f Care;Meals;Medication Management Prior Functional Level Comments: pt poor historian, per chart review patient is from [facility]. Patient reports using walker and does her own ADLs Baseline Cognition: Confused;Forgetful;Favio ented to self;Requires 24/7 supervision Patient Report: agreeable to PT session CURRENT FUNCTIONAL STATUS: Most recent performance mobility performed during session in bold, other mobility completed during prior session and may no longer be correct or appropriate to complete. Current Functional Mobility Assist Level Additional Information Rolling Supine to Sit Moderate Assistance;Additional Information Sit to Supine Moderate Assistance;Additional Information assist with trunk and LEs to transition to supine Scooting Moderate Assistance with draw sheet Sit to Stand Moderate Assistance cuing to slide LLE out, powering up with LEs, proper UE support Stand to Sit Moderate Assistance cuing to slide LLE out, proper UE support, assist with eccentric control Bed to Chair Moderate Assistance Bed To Chair Transfer Type: Stepping Bed To Chair Transfer Equipment: Gait Belt;Wheeled Walker Toilet/Commode Gait Moderate Assistance Gait Device: Wheeled Walker Gait Distance (feet): 5' cuing/assist with posture, balance, walker management, proper LE stepping Stairs Curb Step Car Transfer Blank caro indicate activity not attempted General Deviations/Observation s: Antalgic gait;Luz decreased;Difficulty changing direction/turning;Flex ed trunk posture;Non-functional gait speed;Shuffling Gait;Step length decreased;Improper distancing from assistive device Balance: Static Sitting;Dynamic Sitting;Static Standing;Dynamic Standing Static Sitting Balance: Good Patient able to maintain balance without handhold support, limited postural sway Dynamic Sitting Balance: Good Patient accepts moderate challenge, able to maintain balance while picking up object off floor Static Standing Balance: Fair Patient able to maintain (more content not included)... Normal [facility] Basic metabolic 2000 panelon 12-23-2021 Anion gap [Moles/Vol] 10 mmol/L Normal 9-18 [facility] Comment on above: Order Comment: Speci men Type: BLOOD SPECIMENOrdering Facility: [facility] Address: [address] [place] [address] Performed By: #### 2 4321-2 ####[facility]ORYCLIA [id number] [place] [address] [place] Calcium [Mass/Vol] 9.0 mg/dL Normal 8.5-10.2 [facility] Comment on above: Order Comment: Speci men Type: BLOOD SPECIMENOrdering Facility: [facility] Address: [address] [place] [address] Performed By: #### 2 4321-2 ####[facility] LABORATORYCLIA [id number] [place] [address] [place] Chloride [Moles/Vol] 102 mmol/L Normal 97-105 [facility] Comment on above: Order Comment: Speci men Type: BLOOD SPECIMENOrdering Facility: [facility] Address: [address] [place] [address] Performed By: #### 2 4321-2 ####[facility] LABORATORYCLIA [id number] [place] [address] [place] CO2 [Moles/Vol] 26 mmol/L Normal 22-30 [facility] Comment on above: Order Comment: Speci men Type: BLOOD SPECIMENOrdering Facility: [facility] Address: [address] [address] Performed By: #### 2 4321-2 ####[facility]ITAL[facility] [id number] [address] Creatinine [Mass/Vol] 0.91 mg/dL Normal 0.58-0.96 [facility] Comment on above: Order Comment: Speci javier Type: BLOOD SPECIMENOrdering Facility: [facility] Address: [address] [address] Performed By: #### 2 4321-2 ####[facility] LABORATORYIA [id number] [address] ESTIMATED GLOMERULAR FILTRATION RATE 69 mL/min/1.73m??? Normal >=60 [facility] Comment on above: Order Comment: Speci men Type: BLOOD SPECIMENOrdering Facility: [facility] Address: [address] [place] [address] Result Comment: Jessa mated Glomerular Filtration Rate (eGFR) is calculated using the 2020 CKD-EPI creatinine equation. This equation utilizes serum creatinine, sex, and age as parameters. The creatinine assay has traceable calibration to isotope dilution-mass spectrometry. Refer to KDIGO guidelines for clinical interpretation. In patients with unstable renal function, e.g. those with acute kidney injury, the eGFR may not accurately reflect actual GFR. Performed By: #### 2 4321-2 ####[facility] LABORATORYIA [id number] [address] Glucose [Mass/Vol] 108 mg/dL High 74-99 [facility] Comment on above: Order Comment: Speci ajvier Type: BLOOD SPECIMENOrdering Facility: [facility] Address: [address] [place] [address] Result Comment: The [place] Diabetes Association (ADA) provides guidance for cutoff values for fasting glucose and random glucose. The ADA defines fasting as no caloric intake for at least 8 hours. Fasting plasma glucose results between 100 to 125 mg/dL indicate increased risk for diabetes (prediabetes). Fasting plasma glucose results greater than or equal to 126 mg/dL meet the criteria for diagnosis of diabetes. In the absence of unequivocal hyperglycemia, results should be confirmed by repeat testing. In a patient with classic symptoms of hyperglycemia or hyperglycemic crisis, random plasma glucose results greater than or equal to 200 mg/dL meet the criteria for diagnosis of diabetes. Reference: Standards of Medical Care in Diabetes 2016, [place] [employer]. Diabetes Care. 2016.39(Suppl 1). Performed By: #### 2 4321-2 ####[facility] LABORATORYCLIA [id number] [address] STATES OF [facility] Potassium [Moles/Vol] 4.2 mmol/L Normal 3.7-5.1 [facility] Comment on above: Order Comment: Speci men Type: BLOOD SPECIMENOrdering Facility: [facility] Address: [address] [place] [address] Performed By: #### 2 4321-2 ####[facility] LABORATORYCLIA [id number] [address] Sodium [Moles/Vol] 138 mmol/L Normal 136-144 [facility] Comment on above: Order Comment: Speci men Type: BLOOD SPECIMENOrdering Facility: [facility] Address: [address] [place] [address] Performed By: #### 2 4321-2 ####[facility] LABORATORYCLIA [id number] [address] Urea nitrogen [Mass/Vol] 14 mg/dL Normal 7-21 [facility] Comment on above: Order Comment: Speci men Type: BLOOD SPECIMENOrdering Facility: [facility] Address: [address] [place] [address] Performed By: #### 2 4321-2 ####[facility] LABORATORYCLIA [id number] [address] STATES OF [facility] CBC W Auto Differential pane l (Bld)on 12-23-2021 Basophils (Bld) [#/Vol] 0.09 10*3/uL Normal <0.11 [facility] Comment on above: Order Comment: Speci men Type: BLOOD SPECIMENOrdering Facility: [facility] Address: [address] [place] [address] Performed By: #### 5 7021-8 ####[facility] LABORATORYCLIA [id number] [address] Basophils/100 WBC (Bld) 0.6 % Normal [facility] Comment on above: Order Comment: Speci men Type: BLOOD SPECIMENOrdering Facility: [facility] Address: [address] [place] [address] Performed By: #### 5 7021-8 ####[facility] LABORATORYCLIA [id number] [address] Differential cell count method Nom (Bld) Auto Normal [facility] Comment on above: Order Comment: Speci men Type: BLOOD SPECIMENOrdering Facility: [facility] Address: [address] [place] [address] Performed By: #### 5 7021-8 ####[facility] LABORATORYCLIA [id number] [address] STATES [facility] Eosinophils (Bld) [#/Vol] 0.28 10*3/uL Normal <0.46 [facility] Comment on above: Order Comment: Speci men Type: BLOOD SPECIMENOrdering Facility: [facility] Address: [address] [place] [address] Performed By: #### 5 7021-8 ####[facility] LABORATORYCLIA [id number] [address] Eosinophils/100 WBC (Bld) 2.0 % Normal [facility] Comment on above: Order Comment: Speci men Type: BLOOD SPECIMENOrdering Facility: [facility] Address: [address] [place] [address] Performed By: #### 5 7021-8 ####[facility] LABORATORYCLIA [id number] [address] [place] Erythrocyte distribution width (RBC) [Ratio] 13.7 % Normal 11.5-15.0 [facility] Comment on above: Order Comment: Speci men Type: BLOOD SPECIMENOrdering Facility: [facility] Address: [address] [place] [address] Performed By: #### 5 7021-8 ####[facility] LABORATORYCLIA [id number] [address] [place] Hematocrit (Bld) [Volume fraction] 29.0 % Low 36.0-46.0 [facility] Comment on above: Order Comment: Speci men Type: BLOOD SPECIMENOrdering Facility: [facility] Address: [address] [place] [address] Performed By: #### 5 7021-8 ####[facility] LABORATORYCLIA [id number] [address] [place] Hemoglobin (Bld) [Mass/Vol] 9.1 g/dL Low 11.5-15.5 [facility] Comment on above: Order Comment: Speci men Type: BLOOD SPECIMENOrdering Facility: [facility] Address: [address] [place] [address] Performed By: #### 5 7021-8 ####[facility] LABORATORYCLIA [id number] [address] Immature granulocytes (Bld) [#/Vol] 0.21 10*3/uL High <0.10 [facility] Comment on above: Order Comment: Speci men Type: BLOOD SPECIMENOrdering Facility: [facility] Address: [address] [place] [address] Performed By: #### 5 7021-8 ####[facility] LABORATORYCLIA [id number] [address] Immature granulocytes/100 WBC (Bld) 1.5 % Normal [facility] Comment on above: Order Comment: Speci men Type: BLOOD SPECIMENOrdering Facility: [facility] Address: [address] [place] [address] Performed By: #### 5 7021-8 ####[facility] LABORATORYCLIA [id number] [place] [address] [place] Lymphocytes (Bld) [#/Vol] 4.66 10*3/uL High 1.00-4.00 [facility] Comment on above: Order Comment: Speci men Type: BLOOD SPECIMENOrdering Facility: [facility] Address: [address] [place] [address] Performed By: #### 5 7021-8 ####[facility] LABORATORYCLIA [id number] [address] Lymphocytes/100 WBC (Bld) 32.6 % Normal [facility] Comment on above: Order Comment: Speci men Type: BLOOD SPECIMENOrdering Facility: [facility] Address: [address] [place] [address] Performed By: #### 5 7021-8 ####[facility] LABORATORYCLIA [id number] [address] [place] MCH (RBC) [Entitic mass] 29.5 pg Normal 26.0-34.0 [facility] Comment on above: Order Comment: Speci men Type: BLOOD SPECIMENOrdering Facility: [facility] Address: [address] [place] [address] Performed By: #### 5 7021-8 ####[facility] LABORATORYCLIA [id number] [address] [place] MCHC (RBC) [Mass/Vol] 31.4 g/dL Normal 30.5-36.0 [facility] Comment on above: Order Comment: Speci men Type: BLOOD SPECIMENOrdering Facility: [facility] Address: [address] [place] [address] Performed By: #### 5 7021-8 ####[facility] LABORATORYCLIA [id number] [address] MCV (RBC) [Entitic vol] 94.2 fL Normal 80.0-100.0 [facility] Comment on above: Order Comment: Speci men Type: BLOOD SPECIMENOrdering Facility: [facility] Address: [address] [place] [address] Performed By: #### 5 7021-8 ####[facility] LABORATORYCLIA [id number] [place] [address] [place] Monocytes (Bld) [#/Vol] 1.33 10*3/uL High <0.87 [facility] Comment on above: Order Comment: Speci men Type: BLOOD SPECIMENOrdering Facility: [facility] Address: [address] [place] [address] Performed By: #### 5 7021-8 ####[facility] LABORATORYCLIA [id number] [address] [place] Monocytes/100 WBC (Bld) 9.3 % Normal [facility] Comment on above: Order Comment: Speci men Type: BLOOD SPECIMENOrdering Facility: [facility] Address: [address] [place] [address] Performed By: #### 5 7021-8 ####[facility] LABORATORYCLIA [id number] [address] [place] Neutrophils (Bld) [#/Vol] 7.71 10*3/uL High 1.45-7.50 [facility] Comment on above: Order Comment: Speci men Type: BLOOD SPECIMENOrdering Facility: [facility] Address: [address] [place] [address] Performed By: #### 5 7021-8 ####[facility] LABORATORYCLIA [id number] [address] [place] Neutrophils/100 WBC (Bld) 54.0 % Normal [facility] Comment on above: Order Comment: Speci men Type: BLOOD SPECIMENOrdering Facility: [facility] Address: [address] [place] [address] Performed By: #### 5 7021-8 ####[facility] LABORATORYCLIA [id number] [place] [address] [place] Nucleated RBC (Bld) [#/Vol] 0.02 10*3/uL High <0.01 [facility] Comment on above: Order Comment: Speci men Type: BLOOD SPECIMENOrdering Facility: [facility] Address: [address] [address] Performed By: #### 5 7021-8 ####[facility] LABORATORYCLIA [id number] [address] Nucleated RBC/100 WBC (Bld) [Ratio] 0.1 /100 WBC Normal [facility] Comment on above: Order Comment: Speci men Type: BLOOD SPECIMENOrdering Facility: [facility] Address: [address] [place] [address] Performed By: #### 5 7021-8 ####[facility] LABORATORYCLIA [id number] [address] [place] Platelet mean volume (Bld) [Entitic vol] 9.0 fL Normal 9.0-12.7 [facility] Comment on above: Order Comment: Speci men Type: BLOOD SPECIMENOrdering Facility: [facility] Address: [address] [place] [address] Performed By: #### 5 7021-8 ####[facility] LABORATORYCLIA [id number] [address] [place] Platelets (Bld) [#/Vol] 517 10*3/uL High 150-400 [facility] Comment on above: Order Comment: Speci men Type: BLOOD SPECIMENOrdering Facility: [facility] Address: [address] [place] [address] Performed By: #### 5 7021-8 ####[facility] LABORATORYCLIA [id number] [place] [address] [place] RBC (Bld) [#/Vol] 3.08 10*6/uL Low 3.90-5.20 [facility] Comment on above: Order Comment: Speci men Type: BLOOD SPECIMENOrdering Facility: [facility] Address: [address] [place] [address] Performed By: #### 5 7021-8 ####[facility] LABORATORYCLIA [id number] [address] [place] WBC (Bld) [#/Vol] 14.28 10*3/uL High 3.70-11.00 [facility] Comment on above: Order Comment: Speci men Type: BLOOD SPECIMENOrdering Facility: [facility] Address: [place] [address] Performed By: #### 5 7021-8 ####[facility] LABORATORYCLIA [id number] [address] THERAPY NTon 12-23-2021 THERAPY NT HNO ID: [id number] Author: Jesus Enrique PTA Service: Physical Therapy Author Type: Professor Of Physical Education Type: Therapy (PT/OT/Speech/Resp) Filed: 12/23/2021 12:01 PM Note Text: Attestation signed by Romero Harley PT at 12/23/2021 1:21 PM I reviewed and agree with the documentation corresponding to this therapy visit. SIGNATURE: Romero Harley PT DATE: December 23, 2021 TIME: 1:21 PM Physical Therapy Treatment SERVICE DATE: 12/23/2021 SERVICE TIME: 1129 to 1152 ROOM: [id number] Recommended Discharge Disposition: Subacute/SNF Recommended Discharge Disposition Due to: Patient requires daily, facility-based rehabilitation from at least one discipline due to:;decline in functional status requiring daily skilled care PT 6 Clicks Score: 11 Patient continues to require increased assist with all mobility tasks. Patient reading board when reviewing hip precautions. Patient continues to be well below baseline functioning at this time. Patient continues to be recommended for subacute/SNF to improve strength, balance, endurance, increased ambulation distances with normalize gait pattern, and increased independence with functional task performance/mobility to prior level of function. Additional personnel present during visit: Arlen Maldonado Precautions/Activity Restrictions: Weight Bearing Restrictions;Hip Precautions - Posterior Dislocation Isolation Type: None Extremity With Weight Bearing Restricted: Left Lower Extremity Left Lower Extremity Weight Bearing Status: WBAT Current Hospital Course: S/p L hemiarthroplasty. Patient also had a fall in hospital 12/15 with no injury. Reason for Hospital Admission: Fall Relevant Past Medical History: dementia, anxiety, depression, humeral fx Response to Therapy Interventions: Good participation in activities, Cognitive deficits, Requires additional time to complete activities, Needs frequent redirection or re-instruction Continue skilled needs due to: Functional mobility/skill impairments, Safety concerns Physical Therapy Problem List: Education Deficit;Safety Deficits;Decreased Activity Tolerance;Decreased Strength;Functional Mobility Impairment;Balance Impaired Treatment Interventions: Education;Strengthenin g;Functional Mobility Training;Balance Training Plan for next visit: Bed mobility, Chair transfer training, Gait training, Exercise instruction/handout, Sit to Stand Transfers, Standing Balance, Standing Tolerance Home Environment Patient Lives With: Facility Care Assistance Available: 24-Hour Equipment Owned: Rollator;Shower Chair Prior Functional Level: Required Assistance Assistance Required With: Laundry;Cleaning;Trans portation;Shopping;Anika f Care;Meals;Medication Management Prior Functional Level Comments: pt poor historian, per chart review patient is from [facility]. Patient reports using walker and does her own ADLs Baseline Cognition: Confused;Forgetful;Favio ented to self;Requires 24/ supervision Patient Report: agrees to PT CURRENT FUNCTIONAL STATUS: Most recent performance mobility performed during session in bold, other mobility completed during prior session and may no longer be correct or appropriate to complete. Current Functional Mobility Assist Level Additional Information Rolling Supine to Sit Moderate Assistance;Additional Information via long sit pivot, patient able to bring trunk forward on own--assist with trunk and LE to transition to sitting at EOB, cuing/assist to maintain hip precautions Sit to Supine Moderate Assistance Scooting Moderate Assistance with draw sheet Sit to Stand Moderate Assistance cuing to slide LLE out, powering up with LEs, proper UE support Stand to Sit Moderate Assistance cuing to slide LLE out, proper UE support, assist with eccentric control Bed to Chair Moderate Assistance Bed To Chair Transfer Type: Stepping Bed To Chair Transfer Equipment: Gait Belt;Wheeled Walker Toilet/Commode Gait Moderate Assistance Gait Device: Wheeled Walker Gait Distance (feet): 2' cuing/assist with posture, balance, walker management, proper LE stepping Stairs Curb Step Car Transfer Blank caro indicate activity not attempted General Deviations/Observation s: Antalgic gait;Luz decreased;Difficulty changing direction/turning;Flex ed trunk posture;Non-functional gait speed;Shuffling Gait;Step length decreased;Improper distancing from assistive device Balance: Static Sitting;Dynamic Sitting;Static Standing;Dynamic Standing Static Sitting Balance: Good Patient able to maintain balance without handhold support, limited postural sway Dynamic Sitting Balance: Good Patient accepts moderate challenge, able to maintain balance while picking up object off floor Static Standing Balance: Fair Patient (more content not included)... Normal [facility] Basic metabolic 2000 panelon 12-22-2021 Anion gap [Moles/Vol] 11 mmol/L Normal 9-18 [facility] Comment on above: Order Comment: Speci men Type: BLOOD SPECIMENOrdering Facility: [facility] Address: [address] [address] Performed By: #### 2 4321-2 ####[facility] LABORATORYCLIA [id number] [place] [address] [place] Calcium [Mass/Vol] 9.2 mg/dL Normal 8.5-10.2 [facility] Comment on above: Order Comment: Speci men Type: BLOOD SPECIMENOrdering Facility: [facility] Address: [address] [address] Performed By: #### 2 4321-2 ####[facility] LABORATORYCLIA [id number] [place] [address] [place] Chloride [Moles/Vol] 99 mmol/L Normal 97-105 [facility] Comment on above: Order Comment: Speci men Type: BLOOD SPECIMENOrdering Facility: [facility] Address: [address] [address] Performed By: #### 2 4321-2 ####[facility] LABORATORYCLIA [id number] [address] CO2 [Moles/Vol] 26 mmol/L Normal 22-30 [facility] Comment on above: Order Comment: Speci men Type: BLOOD SPECIMENOrdering Facility: [facility] Address: [address] [address] Performed By: #### 2 4321-2 ####[facility] LABORATORYCLIA [id number] [address] Creatinine [Mass/Vol] 0.87 mg/dL Normal 0.58-0.96 [facility] Comment on above: Order Comment: Speci men Type: BLOOD SPECIMENOrdering Facility: [facility] Address: [address] [place] [address] Performed By: #### 2 4321-2 ####[facility] LABORATORYCLIA [id number] [address] ESTIMATED GLOMERULAR FILTRATION RATE 73 mL/min/1.73m??? Normal >=60 [facility] Comment on above: Order Comment: Speci men Type: BLOOD SPECIMENOrdering Facility: [facility] Address: [address] [place] [address] Result Comment: Jessa mated Glomerular Filtration Rate (eGFR) is calculated using the 2020 CKD-EPI creatinine equation. This equation utilizes serum creatinine, sex, and age as parameters. The creatinine assay has traceable calibration to isotope dilution-mass spectrometry. Refer to KDIGO guidelines for clinical interpretation. In patients with unstable renal function, e.g. those with acute kidney injury, the eGFR may not accurately reflect actual GFR. Performed By: #### 2 4321-2 ####[facility] LABORATORYCLIA [id number] [address] OF [facility] Glucose [Mass/Vol] 100 mg/dL High 74-99 [facility] Comment on above: Order Comment: Speci men Type: BLOOD SPECIMENOrdering Facility: [facility] Address: [address] [place] [address] Result Comment: The [place] Diabetes [employer] (ADA) provides guidance for cutoff values for fasting glucose and random glucose. The ADA defines fasting as no caloric intake for at least 8 hours. Fasting plasma glucose results between 100 to 125 mg/dL indicate increased risk for diabetes (prediabetes). Fasting plasma glucose results greater than or equal to 126 mg/dL meet the criteria for diagnosis of diabetes. In the absence of unequivocal hyperglycemia, results should be confirmed by repeat testing. In a patient with classic symptoms of hyperglycemia or hyperglycemic crisis, random plasma glucose results greater than or equal to 200 mg/dL meet the criteria for diagnosis of diabetes. Reference: Standards of Medical Care in Diabetes 2016, [place] [employer]. Diabetes Care. 2016.39(Suppl 1). Performed By: #### 2 4321-2 ####[facility] LABORATORYCLIA [id number] [address] STATES OF [facility] Potassium [Moles/Vol] 4.2 mmol/L Normal 3.7-5.1 [facility] Comment on above: Order Comment: Speci men Type: BLOOD SPECIMENOrdering Facility: [facility] Address: [address] [place] [address] Performed By: #### 2 1-2 ####[facility] LABORATORYCLIA [id number] [address] [place] Sodium [Moles/Vol] 136 mmol/L Normal 136-144 [facility] Comment on above: Order Comment: Kinsey herrera Type: BLOOD SPECIMENOrdering Facility: [facility] Address: [address] [place] [address] Performed By: #### 2 4321-2 ####[facility] LABORATORYCLIA [id number] [address] STATES [facility] Urea nitrogen [Mass/Vol] 15 mg/dL Normal 7-21 [facility] Comment on above: Order Comment: Speci men Type: BLOOD SPECIMENOrdering Facility: [facility] Address: [address] [address] Performed By: #### 2 4321-2 ####[facility] LABORATORYCLIA [id number] [place] [address] [place] CBC W Auto Differential pane l (Bld)on 12-22-2021 Basophils (Bld) [#/Vol] 0.10 10*3/uL Normal <0.11 [facility] Comment on above: Order Comment: Speci men Type: BLOOD SPECIMENOrdering Facility: [facility] Address: [address] [place] [address] Performed By: #### 5 7021-8 ####[facility]ORATORYCLIA [id number] [address] [place] Basophils/100 WBC (Bld) 0.7 % Normal [facility] Comment on above: Order Comment: Speci men Type: BLOOD SPECIMENOrdering Facility: [facility] Address: [address] [place] [address] Performed By: #### 5 7021-8 ####[facility] LABORATORYCLIA [id number] [address] [place] Differential cell count method Nom (Bld) Auto Normal [facility] Comment on above: Order Comment: Speci men Type: BLOOD SPECIMENOrdering Facility: [facility] Address: [address] [place] [address] Performed By: #### 5 7021-8 ####[facility]ORATORYCLIA [id number] [address] [place] Eosinophils (Bld) [#/Vol] 0.44 10*3/uL Normal <0.46 [facility] Comment on above: Order Comment: Speci men Type: BLOOD SPECIMENOrdering Facility: [facility] Address: [address] [place] [address] Performed By: #### 5 7021-8 ####[facility] LABORATORYCLIA [id number] [address] Eosinophils/100 WBC (Bld) 3.2 % Normal [facility] Comment on above: Order Comment: Speci men Type: BLOOD SPECIMENOrdering Facility: [facility] Address: [address] [place] [address] Performed By: #### 5 7021-8 ####[facility] LABORATORYCLIA [id number] [address] [place] Erythrocyte distribution width (RBC) [Ratio] 13.9 % Normal 11.5-15.0 [facility] Comment on above: Order Comment: Speci men Type: BLOOD SPECIMENOrdering Facility: [facility] Address: [address] [place] [address] Performed By: #### 5 7021-8 ####[facility] LABORATORYCLIA [id number] [address] [place] Hematocrit (Bld) [Volume fraction] 31.7 % Low 36.0-46.0 [facility] Comment on above: Order Comment: Speci men Type: BLOOD SPECIMENOrdering Facility: [facility] Address: [address] [place] [address] Performed By: #### 5 7021-8 ####[facility] LABORATORYCLIA [id number] [address] [place] Hemoglobin (Bld) [Mass/Vol] 9.9 g/dL Low 11.5-15.5 [facility] Comment on above: Order Comment: Speci men Type: BLOOD SPECIMENOrdering Facility: [facility] Address: [address] [place] [address] Performed By: #### 5 7021-8 ####[facility] LABORATORYCLIA [id number] [address] [place] Immature granulocytes (Bld) [#/Vol] 0.21 10*3/uL High <0.10 [facility] Comment on above: Order Comment: Speci men Type: BLOOD SPECIMENOrdering Facility: [facility] Address: [address] [place] [address] Performed By: #### 5 7021-8 ####[facility] LABORATORYCLIA [id number] [address] Immature granulocytes/100 WBC (Bld) 1.5 % Normal [facility] Comment on above: Order Comment: Speci men Type: BLOOD SPECIMENOrdering Facility: [facility] Address: [address] [place] [address] Performed By: #### 5 7021-8 ####[facility]ORATORYCLIA [id number] [address] [place] Lymphocytes (Bld) [#/Vol] 4.90 10*3/uL High 1.00-4.00 [facility] Comment on above: Order Comment: Speci men Type: BLOOD SPECIMENOrdering Facility: [facility] Address: [address] [place] [address] Performed By: #### 5 7021-8 ####[facility] LABORATORYCLIA [id number] [address] Lymphocytes/100 WBC (Bld) 35.5 % Normal [facility] Comment on above: Order Comment: Speci men Type: BLOOD SPECIMENOrdering Facility: [facility] Address: [address] [place] [address] Performed By: #### 5 7021-8 ####[facility] LABORATORYCLIA [id number] [address] STATES OF [facility] MCH (RBC) [Entitic mass] 29.1 pg Normal 26.0-34.0 [facility] Comment on above: Order Comment: Speci men Type: BLOOD SPECIMENOrdering Facility: [facility] Address: [address] [place] [address] Performed By: #### 5 7021-8 ####[facility]ORATORYCLIA [id number] [address] [place] MCHC (RBC) [Mass/Vol] 31.2 g/dL Normal 30.5-36.0 [facility] Comment on above: Order Comment: Speci men Type: BLOOD SPECIMENOrdering Facility: [facility] Address: [address] [place] [address] Performed By: #### 5 7021-8 ####[facility] LABORATORYCLIA [id number] [address] [place] MCV (RBC) [Entitic vol] 93.2 fL Normal 80.0-100.0 [facility] Comment on above: Order Comment: Speci men Type: BLOOD SPECIMENOrdering Facility: [facility] Address: [address] [place] [address] Performed By: #### 5 7021-8 ####[facility]ORATORYCLIA [id number] [address] STATES [facility] Monocytes (Bld) [#/Vol] 1.24 10*3/uL High <0.87 [facility] Comment on above: Order Comment: Speci men Type: BLOOD SPECIMENOrdering Facility: [facility] Address: [address] [place] [address] Performed By: #### 5 7021-8 ####[facility]ATORYCLIA [id number] [address] Monocytes/100 WBC (Bld) 9.0 % Normal [facility] Comment on above: Order Comment: Speci men Type: BLOOD SPECIMENOrdering Facility: [facility] Address: [address] [place] [address] Performed By: #### 5 7021-8 ####[facility]ORATORYCLIA [id number] [address] Neutrophils (Bld) [#/Vol] 6.91 10*3/uL Normal 1.45-7.50 [facility] Comment on above: Order Comment: Speci men Type: BLOOD SPECIMENOrdering Facility: [facility] Address: [address] [place] [address] Performed By: #### 5 7021-8 ####[facility]ATORYCLIA [id number] [address] Neutrophils/100 WBC (Bld) 50.1 % Normal [facility] Comment on above: Order Comment: Speci men Type: BLOOD SPECIMENOrdering Facility: [facility] Address: [address] [place] [address] Performed By: #### 5 7021-8 ####[facility] LABORATORYCLIA [id number] [address] Nucleated RBC (Bld) [#/Vol] 0.03 10*3/uL High <0.01 [facility] Comment on above: Order Comment: Speci men Type: BLOOD SPECIMENOrdering Facility: [facility] Address: [address] [place] [address] Performed By: #### 5 7021-8 ####[facility]ORATORYCLIA [id number] [address] [place] Nucleated RBC/100 WBC (Bld) [Ratio] 0.2 /100 WBC Normal [facility] Comment on above: Order Comment: Speci men Type: BLOOD SPECIMENOrdering Facility: [facility] Address: [address] [place] [address] Performed By: #### 5 7021-8 ####[facility]ORATORYCLIA [id number] [address] [place] Platelet mean volume (Bld) [Entitic vol] 9.0 fL Normal 9.0-12.7 [facility] Comment on above: Order Comment: Speci men Type: BLOOD SPECIMENOrdering Facility: [facility] Address: [address] [place] [address] Performed By: #### 5 7021-8 ####[facility]ORATORYCLIA [id number] [address] [place] Platelets (Bld) [#/Vol] 521 10*3/uL High 150-400 [facility] Comment on above: Order Comment: Speci men Type: BLOOD SPECIMENOrdering Facility: [facility] Address: [address] [address] Performed By: #### 5 7021-8 ####[facility]ORATORYCLIA [id number] [address] [place] RBC (Bld) [#/Vol] 3.40 10*6/uL Low 3.90-5.20 [facility] Comment on above: Order Comment: Speci men Type: BLOOD SPECIMENOrdering Facility: [facility] Address: [address] [place], [place] [id number] Performed By: #### 5 7021-8 ####[facility]ORATORYCLIA [id number] [place] [address] [place] WBC (Bld) [#/Vol] 13.80 10*3/uL High 3.70-11.00 [facility] Comment on above: Order Comment: Speci men Type: BLOOD SPECIMENOrdering Facility: [facility] Address: [place] [address] Performed By: #### 5 7021-8 ####[facility] LABORATORYCLIA [id number] [place] [address] [facility] THERAPY NTon 12-22-2021 THERAPY NT HNO ID: [id number] Author: Rae Garza PT Service: Physical Therapy Author Type: Physical Therapist Type: Therapy (PT/OT/Speech/Resp) Filed: 12/22/2021 11:28 AM Note Text: Physical Therapy Treatment SERVICE DATE: 12/22/2021 SERVICE TIME: 1046 to 1114 ROOM: [place] [address] Recommended Discharge Disposition: Subacute/SNF Recommended Discharge Disposition Due to: Patient requires daily, facility-based rehabilitation from at least one discipline due to:;decline in functional status requiring daily skilled care PT 6 Clicks Score: 11 Patient was unable to walk as far today as she did yesterday. Today she feels more sore and tired. Progressing slowly but steadily to goals. Precautions/Activity Restrictions: Weight Bearing Restrictions;Hip Precautions - Posterior Dislocation Isolation Type: None Extremity With Weight Bearing Restricted: Left Lower Extremity Left Lower Extremity Weight Bearing Status: WBAT Current Hospital Course: S/p L hemiarthroplasty. Patient also had a fall in hospital 12/15 with no injury. Reason for Hospital Admission: Fall Relevant Past Medical History: dementia, anxiety, depression, humeral fx Response to Therapy Interventions: Good participation in activities, Cognitive deficits, Needs frequent redirection or re-instruction, Requires additional time to complete activities, Requires encouragement to complete activities Physical Therapy Problem List: Education Deficit;Safety Deficits;Decreased Activity Tolerance;Decreased Strength;Functional Mobility Impairment;Balance Impaired Treatment Interventions: Education;Strengthenin g;Functional Mobility Training;Balance Training Home Environment Patient Lives With: Facility Care Assistance Available: 24-Hour Equipment Owned: Rollator;Shower Chair Prior Functional Level: Required Assistance Assistance Required With: Laundry;Cleaning;Trans portation;Shopping;Anika f Care;Meals;Medication Management Prior Functional Level Comments: pt poor historian, per chart review patient is from [facility]. Patient reports using walker and does her own ADLs Baseline Cognition: Confused;Forgetful;Favio ented to self;Requires 24/7 supervision Patient Report: agrees to PT CURRENT FUNCTIONAL STATUS: Most recent performance Current Functional Mobility Assist Level Additional Information Rolling Supine to Sit Moderate Assistance;Additional Information Sit to Supine Moderate Assistance Scooting Moderate Assistance Sit to Stand Moderate Assistance cuing to slide LLE out, powering up with LEs, proper UE support Stand to Sit Moderate Assistance cuing to slide LLE out, proper UE support, assist with eccentric control Bed to Chair Moderate Assistance Bed To Chair Transfer Type: Stepping Bed To Chair Transfer Equipment: Gait Belt;Wheeled Walker Toilet/Commode Gait Moderate Assistance Gait Device: Wheeled Walker Gait Distance (feet): 2 steps Stairs Curb Step Car Transfer Blank caro indicate activity not attempted General Deviations/Observation s: Antalgic gait;Luz decreased;Difficulty changing direction/turning;Flex ed trunk posture;Non-functional gait speed;Shuffling Gait;Step length decreased;Improper distancing from assistive device Balance: Static Sitting;Dynamic Sitting;Static Standing;Dynamic Standing Static Sitting Balance: Good Patient able to maintain balance without handhold support, limited postural sway Dynamic Sitting Balance: Good Patient accepts moderate challenge, able to maintain balance while picking up object off floor Static Standing Balance: Fair Patient able to maintain balance with handhold support, may require occasional minimal assistance Dynamic Standing Balance: Fair Patient accepts minimal challenge, able to maintain balance while turning head/trunk JH-HLM: 5: Standing (1 or more minutes) Learning/Educational Needs: Functional Activities/Mobility Goals for Plan of Care: Patient /Caregiver Goals: Go Home Able to perform HEP with: Independent Transfer supine to/from sit with: Independent Transfer sit to/from stand with: Independent Ambulate with: Independent Distance: 45 Device: Wheeled Walker Progress Toward Goals: Progressing as expected Rehab Potential: Excellent Patient will be discontinued from Physical Therapy when no further skilled needs are identified in this setting. PLAN: PT Frequency: 5 times per week (3-5) Plan of Care developed with: Patient TREATMENT INTERVENTIONS: Therapy Diagnosis: Muscle Weakness (generalized);Abnormal ities of gait and mobility-other Interventions Provided: Therapeutic Exercise (33325);Gait Training (09758) Therapeutic Exercise (76145) Treatment Minutes: 16 $ Therapeutic Exercise (15176) Billed Units: 1 unit Exercise Ankle Pumps (number of reps): 15 Quad Sets (number of reps): 15 Glut Sets (number of reps): 15 Heel Slides (number of reps): 15 SAQ (number of reps): 15 Hip Abduction (number of reps): 15 Exercise (more content not included)... Normal [facility] THERAPY NT HNO ID: [id number] Author: Naina Connors OTR/L Service: Occupational Therapy Author Type: Occupational Therapist Type: Therapy (PT/OT/Speech/Resp) Filed: 12/22/2021 9:54 AM Note Text: Occupational Therapy Treatment SERVICE DATE: 12/22/2021 SERVICE TIME: 904 to 930 ROOM: [place] [address] Recommended Discharge Disposition: Subacute/SNF Recommended Discharge Disposition Due to: Patient requires daily, facility-based rehabilitation from at least one discipline due to:;decline in functional status requiring daily skilled care OT 6 Clicks Score: 15 Patient confused this morning and required to be oriented to current time and situation. Patient able to recall posterior hip precautions with visual cue from board. She was able to get out of bed and transfer over to the chair with increased physical assistance. It appeared that patient was trying to keep surgical leg as nonweightbearing during transfer, despite being redirected that leg was weightbearing as tolerated. Patient grossly weak and requires significant assistance for all transfers and ADLs at this time. Further therapy is warranted. All goals ongoing. Precautions/Activity Restrictions: Weight Bearing Restrictions;Hip Precautions - Posterior Dislocation Isolation Type: None Extremity With Weight Bearing Restricted: Left Lower Extremity Left Lower Extremity Weight Bearing Status: WBAT Current Hospital Course: S/p L hemiarthroplasty. Patient also had a fall in hospital 12/15 with no injury. Reason for Hospital Admission: Fall Relevant Past Medical History: dementia, anxiety, depression, humeral fx Response to Therapy Interventions: Good participation in activities Occupational Therapy Problem List: Cognitive Deficit;Safety Deficits;Impaired Self Care;Decreased Activity Tolerance;Decreased Strength;Functional Mobility Impairment;Balance Impaired Cognition/Communicatio n Deficits Orientation Deficits: Confused, Not oriented to Time, Not oriented to Situation, Not oriented to Place Responsiveness: Alert Follows Commands: 1-step Commands, Cueing Needed Cueing to Follow Commands: Moderate Treatment Interventions: Education;Strengthenin g;Balance Training;Functional Mobility Training;Self Care / Home Management Home Environment Patient Lives With: Facility Care Assistance Available: 24-Hour Equipment Owned: Rollator;Shower Chair Prior Functional Level: Required Assistance Assistance Required With: Laundry;Cleaning;Trans portation;Shopping;Anika f Care;Meals;Medication Management Prior Functional Level Comments: pt bishnu historian, per chart review patient is from [facility]. Patient reports using walker and does her own ADLs Baseline Cognition: Confused;Forgetful;Favio ented to self;Requires 15/09 supervision Patient Report: agreeable to session CURRENT FUNCTIONAL STATUS: Most recent performance Current Activities of Daily Living Assist Level Additional Information Feeding Set Up Grooming Minimal Assistance Facilitated oral hygiene task while sitting up in chair to maximize participation in self-care activity. Bathing Upper Body Minimal Assistance Challenged patient to complete upper body bathing activity to increase activity tolerance. Cues to attend to all areas appropriately Bathing Lower Body Maximal Assistance Provided increase physical assist to wash lower extremities due to pain and weakness. Dressing Upper Body Minimal Assistance Min direction to thread arms properly through new gown. Dressing Lower Body Maximal Assistance Assisted in donning socks, min direction to lift each leg and place it into sock appropriately. Toileting Moderate Assistance Functional Mobility Assist Level Additional Information Rolling Supine to Sit Moderate Assistance Moderate direction to move each lower extremity closer to the side of bed while engaging core in order to sit upright. Min direction to adhere to posterior hip precautions. Sit to Supine Scooting Moderate Assistance Increase time to scoot forward till feet were touching the ground for better balance and stability Sit to Stand Moderate Assistance Slightly raise the height of bed to help with sit to stand transfer. Provided moderate direction for hand placement, as patient wants to pull on walker frame when standing upright. Patient required 2 attempts at sit to stand before properly achieving upright. Stand to Sit Moderate Assistance Min direction for good eccentric control while reaching back for chair prior to sitting down. Bed to Chair Moderate Assistance Stand Pivot Gait Belt;Wheeled Walker Provided increase time and [id number] verbal direction to sequence self with use of walker over towards chair. Educated on fall prevention and safety during all dynamic mobility. Provided education on weightbearing as tolerated protocol, as it appears patient trying to keep surgical leg as nonweightbearing during transitions. Toilet/Commode Shower Functio (more content not included)... Normal [facility] Basic metabolic 2000 panelon 12-21-2021 Anion gap [Moles/Vol] 12 mmol/L Normal 9-18 [facility] Comment on above: Order Comment: Speci men Type: BLOOD SPECIMENOrdering Facility: [facility] Address: [address] [place] [address] Performed By: #### 2 4321-2 ####[facility] LABORATORYCLIA [id number] [place] [address] [place] Calcium [Mass/Vol] 9.2 mg/dL Normal 8.5-10.2 [facility] Comment on above: Order Comment: Speci men Type: BLOOD SPECIMENOrdering Facility: [facility] Address: [address] [place] [address] Performed By: #### 2 4321-2 ####[facility]ORATORYCLIA [id number] [place] [address] [place] Chloride [Moles/Vol] 97 mmol/L Normal 97-105 [facility] Comment on above: Order Comment: Speci men Type: BLOOD SPECIMENOrdering Facility: [facility] Address: [address] [place] [address] Performed By: #### 2 4321-2 ####[facility] LABORATORYCLIA [id number] [place] [address] [place] CO2 [Moles/Vol] 26 mmol/L Normal 22-30 [facility] Comment on above: Order Comment: Speci men Type: BLOOD SPECIMENOrdering Facility: [facility] Address: [address] [place] [address] Performed By: #### 2 4321-2 ####[facility]ORATORYCLIA [id number] [place] [address] [place] Creatinine [Mass/Vol] 0.79 mg/dL Normal 0.58-0.96 [facility] Comment on above: Order Comment: Speci javier Type: BLOOD SPECIMENOrdering Facility: [facility] Address: [address] [place] [address] Performed By: #### 2 4321-2 ####[facility]ORATORYCLIA [id number] [address] ESTIMATED GLOMERULAR FILTRATION RATE 82 mL/min/1.73m??? Normal >=60 [facility] Comment on above: Order Comment: Kinsey javier Type: BLOOD SPECIMENOrdering Facility: [facility] Address: [address] [place] [address] Result Comment: Jessa mated Glomerular Filtration Rate (eGFR) is calculated using the 2020 CKD-EPI creatinine equation. This equation utilizes serum creatinine, sex, and age as parameters. The creatinine assay has traceable calibration to isotope dilution-mass spectrometry. Refer to KDIGO guidelines for clinical interpretation. In patients with unstable renal function, e.g. those with acute kidney injury, the eGFR may not accurately reflect actual GFR. Performed By: #### 2 4321-2 ####[facility] LABORATORYIA [id number] [place] [address] [place] Glucose [Mass/Vol] 108 mg/dL High 74-99 [facility] Comment on above: Order Comment: Micahrodo herrera Type: BLOOD SPECIMENOrdering Facility: [facility] Address: [address] [place] [address] Result Comment: The [place] [employer] (ADA) provides guidance for cutoff values for fasting glucose and random glucose. The ADA defines fasting as no caloric intake for at least 8 hours. Fasting plasma glucose results between 100 to 125 mg/dL indicate increased risk for diabetes (prediabetes). Fasting plasma glucose results greater than or equal to 126 mg/dL meet the criteria for diagnosis of diabetes. In the absence of unequivocal hyperglycemia, results should be confirmed by repeat testing. In a patient with classic symptoms of hyperglycemia or hyperglycemic crisis, random plasma glucose results greater than or equal to 200 mg/dL meet the criteria for diagnosis of diabetes. Reference: Standards of Medical Care in Diabetes 2016, [place] [employer]. Diabetes Care. 2016.39(Suppl 1). Performed By: #### 2 4321-2 ####[facility]ORATORYCLIA [id number] [place] [address] [place] Potassium [Moles/Vol] 4.0 mmol/L Normal 3.7-5.1 [facility] Comment on above: Order Comment: Speci men Type: BLOOD SPECIMENOrdering Facility: [facility] Address: [address] [address] Performed By: #### 2 4321-2 ####[facility]ORATORYCLIA [id number] [place] [address] [place] Sodium [Moles/Vol] 135 mmol/L Low 136-144 [facility] Comment on above: Order Comment: Speci men Type: BLOOD SPECIMENOrdering Facility: [facility] Address: [address] [place] [address] Performed By: #### 2 4321-2 ####[facility]ORATORYCLIA [id number] [address] [place] Urea nitrogen [Mass/Vol] 11 mg/dL Normal 7-21 [facility] Comment on above: Order Comment: Speci men Type: BLOOD SPECIMENOrdering Facility: [facility] Address: [address] [place] [address] Performed By: #### 2 4321-2 ####[facility]ATORYCLIA [id number] [address] [place] CBC W Auto Differential pane l (Bld)on 12-21-2021 Basophils (Bld) [#/Vol] 0.07 10*3/uL Normal <0.11 [facility] Comment on above: Order Comment: Speci men Type: BLOOD SPECIMENOrdering Facility: [facility] Address: [address] [place] [address] Performed By: #### 5 7021-8 ####[facility]ATORYCLIA [id number] [address] [place] Basophils/100 WBC (Bld) 0.6 % Normal [facility] Comment on above: Order Comment: Speci men Type: BLOOD SPECIMENOrdering Facility: [facility] Address: [address] [address] Performed By: #### 5 7021-8 ####[facility]ORATORYCLIA [id number] [address] Differential cell count method Nom (Bld) Auto Normal [facility] Comment on above: Order Comment: Speci men Type: BLOOD SPECIMENOrdering Facility: [facility] Address: [address] [place] [address] Performed By: #### 5 7021-8 ####[facility]ATORYCLIA [id number] [address] [place] Eosinophils (Bld) [#/Vol] 0.26 10*3/uL Normal <0.46 [facility] Comment on above: Order Comment: Speci men Type: BLOOD SPECIMENOrdering Facility: [facility] Address: [address] [place] [address] Performed By: #### 5 7021-8 ####[facility]ATORYCLIA [id number] [address] Eosinophils/100 WBC (Bld) 2.3 % Normal [facility] Comment on above: Order Comment: Speci men Type: BLOOD SPECIMENOrdering Facility: [facility] Address: [address] [place] [address] Performed By: #### 5 7021-8 ####[facility]ORATORYCLIA [id number] [address] Erythrocyte distribution width (RBC) [Ratio] 13.9 % Normal 11.5-15.0 [facility] Comment on above: Order Comment: Speci men Type: BLOOD SPECIMENOrdering Facility: [facility] Address: [address] [place] [address] Performed By: #### 5 7021-8 ####[facility]ORATORYCLIA [id number] [address] [place] Hematocrit (Bld) [Volume fraction] 31.9 % Low 36.0-46.0 [facility] Comment on above: Order Comment: Speci men Type: BLOOD SPECIMENOrdering Facility: [facility] Address: [address] [place] [address] Performed By: #### 5 7021-8 ####[facility]ATORYCLIA [id number] [address] [place] Hemoglobin (Bld) [Mass/Vol] 9.9 g/dL Low 11.5-15.5 [facility] Comment on above: Order Comment: Speci men Type: BLOOD SPECIMENOrdering Facility: [facility] Address: [address] [place] [address] Performed By: #### 5 7021-8 ####[facility]ORATORYCLIA [id number] [address] [place] Immature granulocytes (Bld) [#/Vol] 0.14 10*3/uL High <0.10 [facility] Comment on above: Order Comment: Speci men Type: BLOOD SPECIMENOrdering Facility: [facility] Address: [address] [place] [address] Performed By: #### 5 7021-8 ####[facility] LABORATORYCLIA [id number] [address] [place] Immature granulocytes/100 WBC (Bld) 1.2 % Normal [facility] Comment on above: Order Comment: Speci men Type: BLOOD SPECIMENOrdering Facility: [facility] Address: [address] [place] [address] Performed By: #### 5 7021-8 ####[facility] LABORATORYCLIA [id number] [address] [place] Lymphocytes (Bld) [#/Vol] 2.78 10*3/uL Normal 1.00-4.00 [facility] Comment on above: Order Comment: Speci men Type: BLOOD SPECIMENOrdering Facility: [facility] Address: [address] [place] [address] Performed By: #### 5 7021-8 ####[facility]ORATORYCLIA [id number] [address] Lymphocytes/100 WBC (Bld) 24.7 % Normal [facility] Comment on above: Order Comment: Speci men Type: BLOOD SPECIMENOrdering Facility: [facility] Address: [address] [place] [address] Performed By: #### 5 7021-8 ####[facility]ORATORYCLIA [id number] [address] MCH (RBC) [Entitic mass] 29.1 pg Normal 26.0-34.0 [facility] Comment on above: Order Comment: Speci men Type: BLOOD SPECIMENOrdering Facility: [facility] Address: [address] [place] [address] Performed By: #### 5 7021-8 ####[facility]ORATORYCLIA [id number] [address] [place] MCHC (RBC) [Mass/Vol] 31.0 g/dL Normal 30.5-36.0 [facility] Comment on above: Order Comment: Speci men Type: BLOOD SPECIMENOrdering Facility: [facility] Address: [address] [place] [address] Performed By: #### 5 7021-8 ####[facility]ORATORYCLIA [id number] [address] MCV (RBC) [Entitic vol] 93.8 fL Normal 80.0-100.0 [facility] Comment on above: Order Comment: Speci men Type: BLOOD SPECIMENOrdering Facility: [facility] Address: [address] [place] [address] Performed By: #### 5 7021-8 ####[facility]ORATORYCLIA [id number] [address] Monocytes (Bld) [#/Vol] 0.85 10*3/uL Normal <0.87 [facility] Comment on above: Order Comment: Speci men Type: BLOOD SPECIMENOrdering Facility: [facility] Address: [address] [place] [address] Performed By: #### 5 7021-8 ####[facility] LABORATORYCLIA [id number] [address] [place] Monocytes/100 WBC (Bld) 7.5 % Normal [facility] Comment on above: Order Comment: Speci men Type: BLOOD SPECIMENOrdering Facility: [facility] Address: [address] [place] [address] Performed By: #### 5 7021-8 ####[facility] LABORATORYCLIA [id number] [place] [address] [place] Neutrophils (Bld) [#/Vol] 7.17 10*3/uL Normal 1.45-7.50 [facility] Comment on above: Order Comment: Speci men Type: BLOOD SPECIMENOrdering Facility: [facility] Address: [address] [place] [address] Performed By: #### 5 7021-8 ####[facility]ORATORYCLIA [id number] [address] OF [facility] Neutrophils/100 WBC (Bld) 63.7 % Normal [facility] Comment on above: Order Comment: Speci men Type: BLOOD SPECIMENOrdering Facility: [facility] Address: [address] [place] [address] Performed By: #### 5 7021-8 ####[facility]ATORYCLIA [id number] [address] [place] Nucleated RBC (Bld) [#/Vol] 0.02 10*3/uL High <0.01 [facility] Comment on above: Order Comment: Speci men Type: BLOOD SPECIMENOrdering Facility: [facility] Address: [address] [place] [address] Performed By: #### 5 7021-8 ####[facility]ORATORYCLIA [id number] [address] [place] Nucleated RBC/100 WBC (Bld) [Ratio] 0.2 /100 WBC Normal [facility] Comment on above: Order Comment: Speci men Type: BLOOD SPECIMENOrdering Facility: [facility] Address: [address] [place] [address] Performed By: #### 5 7021-8 ####[facility]ORATORYCLIA [id number] [address] Platelet mean volume (Bld) [Entitic vol] 9.3 fL Normal 9.0-12.7 [facility] Comment on above: Order Comment: Speci men Type: BLOOD SPECIMENOrdering Facility: [facility] Address: [address] [place] [address] Performed By: #### 5 7021-8 ####[facility]ORATORYCLIA [id number] [address] [place] Platelets (Bld) [#/Vol] 531 10*3/uL High 150-400 [facility] Comment on above: Order Comment: Speci men Type: BLOOD SPECIMENOrdering Facility: [facility] Address: [address] [place] [address] Performed By: #### 5 7021-8 ####[facility]ORATORYCLIA [id number] [address] [place] RBC (Bld) [#/Vol] 3.40 10*6/uL Low 3.90-5.20 [facility] Comment on above: Order Comment: Speci men Type: BLOOD SPECIMENOrdering Facility: [facility] Address: [address] Performed By: #### 5 7021-8 ####[facility]ORATORYCLIA [id number] [address] [place] WBC (Bld) [#/Vol] 11.27 10*3/uL High 3.70-11.00 [facility] Comment on above: Order Comment: Speci men Type: BLOOD SPECIMENOrdering Facility: [facility] Address: [address] [place] [address] Performed By: #### 5 7021-8 ####[facility]ORATORYCLIA [id number] [place] [address] [place] Basic metabolic 2000 panelon 12-20-2021 Anion gap [Moles/Vol] 12 mmol/L Normal 9-18 [facility] Comment on above: Order Comment: Speci men Type: BLOOD SPECIMENOrdering Facility: [facility] Address: [address] [place] [address] Performed By: #### 2 4321-2 ####[facility]ORATORYCLIA [id number] [place] [address] [place] Calcium [Mass/Vol] 9.0 mg/dL Normal 8.5-10.2 [facility] Comment on above: Order Comment: Speci men Type: BLOOD SPECIMENOrdering Facility: [facility] Address: [address] [place] [address] Performed By: #### 2 4321-2 ####[facility]ORATORYCLIA [id number] [address] [place] Chloride [Moles/Vol] 100 mmol/L Normal 97-105 [facility] Comment on above: Order Comment: Speci men Type: BLOOD SPECIMENOrdering Facility: [facility] Address: [address] [place] [address] Performed By: #### 2 4321-2 ####[facility]ORATORYCLIA [id number] [address] [place] CO2 [Moles/Vol] 27 mmol/L Normal 22-30 [facility] Comment on above: Order Comment: Speci men Type: BLOOD SPECIMENOrdering Facility: [facility] Address: [address] [place] [address] Performed By: #### 2 4321-2 ####[facility]ATORYCLIA [id number] [address] [place] Creatinine [Mass/Vol] 0.75 mg/dL Normal 0.58-0.96 [facility] Comment on above: Order Comment: Speci men Type: BLOOD SPECIMENOrdering Facility: [facility] Address: [address] [place], [place] [address] Performed By: #### 2 4321-2 ####[facility]ORATORYCLIA [id number] [place] [address] [place] ESTIMATED GLOMERULAR FILTRATION RATE 87 mL/min/1.73m??? Normal >=60 [facility] Comment on above: Order Comment: Kinsey javier Type: BLOOD SPECIMENOrdering Facility: [facility] Address: [address] [place] [address] Result Comment: Jessa mated Glomerular Filtration Rate (eGFR) is calculated using the 2020 CKD-EPI creatinine equation. This equation utilizes serum creatinine, sex, and age as parameters. The creatinine assay has traceable calibration to isotope dilution-mass spectrometry. Refer to KDIGO guidelines for clinical interpretation. In patients with unstable renal function, e.g. those with acute kidney injury, the eGFR may not accurately reflect actual GFR. Performed By: #### 2 4321-2 ####[facility]PITALCLIA [id number] [place] [address] [place] Glucose [Mass/Vol] 105 mg/dL High 74-99 [facility] Comment on above: Order Comment: Kinsey herrera Type: BLOOD SPECIMENOrdering Facility: [facility] Address: [address] [place] [address] Result Comment: The [place] [employer] (ADA) provides guidance for cutoff values for fasting glucose and random glucose. The ADA defines fasting as no caloric intake for at least 8 hours. Fasting plasma glucose results between 100 to 125 mg/dL indicate increased risk for diabetes (prediabetes). Fasting plasma glucose results greater than or equal to 126 mg/dL meet the criteria for diagnosis of diabetes. In the absence of unequivocal hyperglycemia, results should be confirmed by repeat testing. In a patient with classic symptoms of hyperglycemia or hyperglycemic crisis, random plasma glucose results greater than or equal to 200 mg/dL meet the criteria for diagnosis of diabetes. Reference: Standards of Medical Care in Diabetes 2016, [place] [employer]. Diabetes Care. 2016.39(Suppl 1). Performed By: #### 2 4321-2 ####[facility]ORATORYCLIA [id number] [place] [id number] [place] Potassium [Moles/Vol] 4.2 mmol/L Normal 3.7-5.1 [facility] Comment on above: Order Comment: Speci men Type: BLOOD SPECIMENOrdering Facility: [facility] Address: [address] [place] [address] Performed By: #### 2 4321-2 ####[facility]ORATORYCLIA [id number] [address] STATES [facility] Sodium [Moles/Vol] 139 mmol/L Normal 136-144 [facility] Comment on above: Order Comment: Speci men Type: BLOOD SPECIMENOrdering Facility: [facility] Address: [address] [place] [address] Performed By: #### 2 4321-2 ####[facility]ORATORYCLIA [id number] [address] [place] [facility] Urea nitrogen [Mass/Vol] 12 mg/dL Normal 7-21 [facility] Comment on above: Order Comment: Speci men Type: BLOOD SPECIMENOrdering Facility: [facility] Address: [address] [place] [address] Performed By: #### 2 4321-2 ####[facility]ORATORYCLIA [id number] [address] STATES OF [facility] CBC W Auto Differential pane l (Bld)on 12-20-2021 Basophils (Bld) [#/Vol] 0.08 10*3/uL Normal <0.11 [facility] Comment on above: Order Comment: Speci men Type: BLOOD SPECIMENOrdering Facility: [facility] Address: [address] [place] [address] Performed By: #### 5 7021-8 ####[facility]ATORYCLIA [id number] [address] Basophils/100 WBC (Bld) 0.7 % Normal [facility] Comment on above: Order Comment: Speci men Type: BLOOD SPECIMENOrdering Facility: [facility] Address: [address] [place] [address] Performed By: #### 5 7021-8 ####[facility]ORATORYCLIA [id number] [address] Differential cell count method Nom (Bld) Auto Normal [facility] Comment on above: Order Comment: Speci men Type: BLOOD SPECIMENOrdering Facility: [facility] Address: [address] [place] [address] Performed By: #### 5 7021-8 ####[facility]ATORYCLIA [id number] [address] Eosinophils (Bld) [#/Vol] 0.37 10*3/uL Normal <0.46 [facility] Comment on above: Order Comment: Speci men Type: BLOOD SPECIMENOrdering Facility: [facility] Address: [address] [place] [address] Performed By: #### 5 7021-8 ####[facility]ATORYCLIA [id number] [address] Eosinophils/100 WBC (Bld) 3.5 % Normal [facility] Comment on above: Order Comment: Speci men Type: BLOOD SPECIMENOrdering Facility: [facility] Address: [address] [place] [address] Performed By: #### 5 7021-8 ####[facility]ATORYCLIA [id number] [address] Erythrocyte distribution width (RBC) [Ratio] 13.4 % Normal 11.5-15.0 [facility] Comment on above: Order Comment: Speci men Type: BLOOD SPECIMENOrdering Facility: [facility] Address: [address] [place] [address] Performed By: #### 5 7021-8 ####[facility]ORATORYCLIA [id number] [address] Hematocrit (Bld) [Volume fraction] 27.1 % Low 36.0-46.0 [facility] Comment on above: Order Comment: Speci men Type: BLOOD SPECIMENOrdering Facility: [facility] Address: [address] [place] [address] Performed By: #### 5 7021-8 ####[facility]ORATORYCLIA [id number] [place] [address] [place] Hemoglobin (Bld) [Mass/Vol] 8.5 g/dL Low 11.5-15.5 [facility] Comment on above: Order Comment: Speci men Type: BLOOD SPECIMENOrdering Facility: [facility] Address: [address] [place] [address] Performed By: #### 5 7021-8 ####[facility]ATORYCLIA [id number] [address] [place] Immature granulocytes (Bld) [#/Vol] 0.09 10*3/uL Normal <0.10 [facility] Comment on above: Order Comment: Speci men Type: BLOOD SPECIMENOrdering Facility: [facility] Address: [address] [place] [address] Performed By: #### 5 7021-8 ####[facility]ATORYCLIA [id number] [address] [place] Immature granulocytes/100 WBC (Bld) 0.8 % Normal [facility] Comment on above: Order Comment: Speci men Type: BLOOD SPECIMENOrdering Facility: [facility] Address: [address] [place] [address] Performed By: #### 5 7021-8 ####[facility]ORATORYCLIA [id number] [address] [place] Lymphocytes (Bld) [#/Vol] 3.75 10*3/uL Normal 1.00-4.00 [facility] Comment on above: Order Comment: Speci men Type: BLOOD SPECIMENOrdering Facility: [facility] Address: [address] [place] [address] Performed By: #### 5 7021-8 ####[facility]ORATORYCLIA [id number] [address] [place] Lymphocytes/100 WBC (Bld) 35.1 % Normal [facility] Comment on above: Order Comment: Speci men Type: BLOOD SPECIMENOrdering Facility: [facility] Address: [address] [place] [address] Performed By: #### 5 7021-8 ####[facility]ORATORYCLIA [id number] [address] [place] MCH (RBC) [Entitic mass] 29.1 pg Normal 26.0-34.0 [facility] Comment on above: Order Comment: Speci men Type: BLOOD SPECIMENOrdering Facility: [facility] Address: [address] [place] [address] Performed By: #### 5 7021-8 ####[facility]ORATORYCLIA [id number] [address] [place] MCHC (RBC) [Mass/Vol] 31.4 g/dL Normal 30.5-36.0 [facility] Comment on above: Order Comment: Speci men Type: BLOOD SPECIMENOrdering Facility: [facility] Address: [address] [place] [address] Performed By: #### 5 7021-8 ####[facility]ORATORYCLIA [id number] [address] MCV (RBC) [Entitic vol] 92.8 fL Normal 80.0-100.0 [facility] Comment on above: Order Comment: Speci men Type: BLOOD SPECIMENOrdering Facility: [facility] Address: [address] [place] [address] Performed By: #### 5 7021-8 ####[facility]ORATORYCLIA [id number] [address] Monocytes (Bld) [#/Vol] 0.95 10*3/uL High <0.87 [facility] Comment on above: Order Comment: Speci men Type: BLOOD SPECIMENOrdering Facility: [facility] Address: [address] [place] [address] Performed By: #### 5 7021-8 ####[facility]ORATORYCLIA [id number] [place] [address] [place] Monocytes/100 WBC (Bld) 8.9 % Normal [facility] Comment on above: Order Comment: Speci men Type: BLOOD SPECIMENOrdering Facility: [facility] Address: [address] [place] [address] Performed By: #### 5 7021-8 ####[facility]ORATORYCLIA [id number] [place] [address] [place] Neutrophils (Bld) [#/Vol] 5.45 10*3/uL Normal 1.45-7.50 [facility] Comment on above: Order Comment: Speci men Type: BLOOD SPECIMENOrdering Facility: [facility] Address: [address] [place] [address] Performed By: #### 5 7021-8 ####[facility]ATORYCLIA [id number] [address] Neutrophils/100 WBC (Bld) 51.0 % Normal [facility] Comment on above: Order Comment: Speci men Type: BLOOD SPECIMENOrdering Facility: [facility] Address: [address] [place] [address] Performed By: #### 5 7021-8 ####[facility]ATORYCLIA [id number] [place] [address] [place] Nucleated RBC (Bld) [#/Vol] 0.02 10*3/uL High <0.01 [facility] Comment on above: Order Comment: Speci men Type: BLOOD SPECIMENOrdering Facility: [facility] Address: [address] [place] [address] Performed By: #### 5 7021-8 ####[facility]ATORYCLIA [id number] [address] [place] Nucleated RBC/100 WBC (Bld) [Ratio] 0.2 /100 WBC Normal [facility] Comment on above: Order Comment: Speci men Type: BLOOD SPECIMENOrdering Facility: [facility] Address: [address] [place] [address] Performed By: #### 5 7021-8 ####[facility]ORATORYCLIA [id number] [address] Platelet mean volume (Bld) [Entitic vol] 9.2 fL Normal 9.0-12.7 [facility] Comment on above: Order Comment: Speci men Type: BLOOD SPECIMENOrdering Facility: [facility] Address: [address] [place] [address] Performed By: #### 5 7021-8 ####[facility]ATORYCLIA [id number] [address] [place] Platelets (Bld) [#/Vol] 419 10*3/uL High 150-400 [facility] Comment on above: Order Comment: Speci men Type: BLOOD SPECIMENOrdering Facility: [facility] Address: [address] [place] [address] Performed By: #### 5 7021-8 ####[facility]ATORYCLIA [id number] [address] [place] RBC (Bld) [#/Vol] 2.92 10*6/uL Low 3.90-5.20 [facility] Comment on above: Order Comment: Speci men Type: BLOOD SPECIMENOrdering Facility: [facility] Address: [address] [place], [place] [address] Performed By: #### 5 7021-8 ####[facility]ORATORYCLIA [id number] [address] [place] WBC (Bld) [#/Vol] 10.69 10*3/uL Normal 3.70-11.00 [facility] Comment on above: Order Comment: Speci men Type: BLOOD SPECIMENOrdering Facility: [facility] Address: [address] [place] [address] Performed By: #### 5 7021-8 ####[facility]ORATORYCLIA [id number] [address] STATES OF [facility] THERAPY NTon 12-20-2021 THERAPY NT HNO ID: [id number] Author: Jesus Enrique PTA Service: Physical Therapy Author Type: Professor Of Physical Education Type: Therapy (PT/OT/Speech/Resp) Filed: 12/20/2021 3:02 PM Note Text: Attestation signed by Mariza Joshua PT at 12/22/2021 4:16 PM I reviewed and agree with the documentation corresponding to this therapy visit. SIGNATURE: Mariza Joshua PT DATE: December 22, 2021 TIME: 4:16 PM Physical Therapy Treatment SERVICE DATE: 12/20/2021 SERVICE TIME: 1429 to 1453 ROOM: [place] [address] Recommended Discharge Disposition: Subacute/SNF Recommended Discharge Disposition Due to: Patient requires daily, facility-based rehabilitation from at least one discipline due to:;decline in functional status requiring daily skilled care PT 6 Clicks Score: 11 Patient continues to require increased assist with all mobility tasks. Patient with recall of 0/3 hip precautions. Patient impulsively tries to sit prior to squaring up to seated surface. Patient continues to be recommended for subacute/SNF to improve strength, balance, endurance, increased ambulation distances with normalize gait pattern, and increased independence with functional task performance/mobility to prior level of function. Additional personnel present during visit: Arlen Maldonado Precautions/Activity Restrictions: Weight Bearing Restrictions;Hip Precautions - Posterior Dislocation Isolation Type: None Extremity With Weight Bearing Restricted: Left Lower Extremity Left Lower Extremity Weight Bearing Status: WBAT Current Hospital Course: S/p L hemiarthroplasty. Patient also had a fall in hospital 12/15 with no injury. Reason for Hospital Admission: Fall Relevant Past Medical History: dementia, anxiety, depression, humeral fx Response to Therapy Interventions: Good participation in activities, Cognitive deficits Continue skilled needs due to: Functional mobility/skill impairments, Safety concerns Physical Therapy Problem List: Education Deficit;Safety Deficits;Decreased Activity Tolerance;Decreased Strength;Functional Mobility Impairment;Balance Impaired Treatment Interventions: Education;Strengthenin g;Functional Mobility Training;Balance Training Plan for next visit: Bed mobility, Chair transfer training, Gait training, Exercise instruction/handout, Sit to Stand Transfers, Standing Balance, Standing Tolerance Home Environment Patient Lives With: Facility Care Assistance Available: 24-Hour Equipment Owned: Rollator;Shower Chair Prior Functional Level: Required Assistance Assistance Required With: Laundry;Cleaning;Trans portation;Shopping;Anika f Care;Meals;Medication Management Prior Functional Level Comments: pt poor historian, per chart review patient is from [facility]. Patient reports using walker and does her own ADLs Baseline Cognition: Confused;Forgetful;Favio ented to self;Requires 24/ supervision Patient Report: agreeable to PT session CURRENT FUNCTIONAL STATUS: Most recent performance mobility performed during session in bold, other mobility completed during prior session and may no longer be correct or appropriate to complete. Current Functional Mobility Assist Level Additional Information Rolling Supine to Sit Moderate Assistance;Additional Information Sit to Supine Moderate Assistance Scooting Moderate Assistance with draw sheet Sit to Stand Moderate Assistance cuing to slide LLE out, powering up with LEs, proper UE support Stand to Sit Moderate Assistance;Additional Information cuing to slide LLE out, proper UE support, assist with eccentric control Bed to Chair Moderate Assistance Bed To Chair Transfer Type: Stepping Bed To Chair Transfer Equipment: Gait Belt;Wheeled Walker Toilet/Commode Gait Moderate Assistance Gait Device: Wheeled Walker Gait Distance (feet): 5' cuing/assist with posture, balance, walker management, proper LE stepping, cues needed to hold brim flexer of walker with hands. Stairs Curb Step Car Transfer Blank caro indicate activity not attempted General Deviations/Observation s: Antalgic gait;Luz decreased;Difficulty changing direction/turning;Flex ed trunk posture;Non-functional gait speed;Shuffling Gait;Step length decreased;Improper distancing from assistive device Balance: Static Sitting;Dynamic Sitting;Static Standing;Dynamic Standing Static Sitting Balance: Good Patient able to maintain balance without handhold support, limited postural sway Dynamic Sitting Balance: Good Patient accepts moderate challenge, able to maintain balance while picking up object off floor Static Standing Balance: Fair Patient able to maintain balance with handhold support, may require occasional minimal assistance Dynamic Standing Balance: Poor Patient unable to accept challenge or move without loss of b (more content not included)... Normal [facility] THERAPY NT HNO ID: [id number] Author: Jeanette Dale OTR/L Service: Occupational Therapy Author Type: Occupational Therapist Type: Therapy (PT/OT/Speech/Resp) Filed: 12/20/2021 12:08 PM Note Text: Occupational Therapy Treatment SERVICE DATE: 12/20/2021 SERVICE TIME: 1100 to 1124 ROOM: [id number] Recommended Discharge Disposition: Subacute/SNF Recommended Discharge Disposition Due to: Patient requires daily, facility-based rehabilitation from at least one discipline due to:;decline in functional status requiring daily skilled care OT 6 Clicks Score: 15 Patient progressing towards OT goals as expected. Continues to require frequent cues to maintain posterior hip precautions unable to recall any. Requires moderate assist for transfers and max assist for LB dressing. Continue to recommend SNF at discharge. Precautions/Activity Restrictions: Weight Bearing Restrictions;Hip Precautions - Posterior Dislocation Isolation Type: None Extremity With Weight Bearing Restricted: Left Lower Extremity Left Lower Extremity Weight Bearing Status: WBAT Current Hospital Course: S/p L hemiarthroplasty. Patient also had a fall in hospital 12/15 with no injury. Reason for Hospital Admission: Fall Relevant Past Medical History: dementia, anxiety, depression, humeral fx Response to Therapy Interventions: Good participation in activities, Cognitive deficits, Needs frequent redirection or re-instruction Continue skilled needs due to: Functional impairment, Safety concerns, Cognitive deficits Occupational Therapy Problem List: Cognitive Deficit;Safety Deficits;Impaired Self Care;Decreased Activity Tolerance;Decreased Strength;Functional Mobility Impairment;Balance Impaired Cognition/Communicatio n Deficits Orientation Deficits: Confused, Not oriented to Time, Not oriented to Situation, Not oriented to Place Responsiveness: Alert, Awake Follows Commands: 1-step Commands, Cueing Needed Cueing to Follow Commands: Moderate Treatment Interventions: Education;Strengthenin g;Balance Training;Functional Mobility Training;Self Care / Home Management Home Environment Patient Lives With: Facility Care Assistance Available: 24-Hour Equipment Owned: Rollator;Shower Chair Prior Functional Level: Required Assistance Assistance Required With: Laundry;Cleaning;Trans portation;Shopping;Anika f Care;Meals;Medication Management Prior Functional Level Comments: pt poor historian, per chart review patient is from [facility]. Patient reports using walker and does her own ADLs Baseline Cognition: Confused;Forgetful;Favio ented to self;Requires 24/7 supervision Patient Report: pt pleasant and agreeable to OT CURRENT FUNCTIONAL STATUS: Most recent performance Current Activities of Daily Living Assist Level Additional Information Feeding Set Up Grooming Minimal Assistance Bathing Upper Body Minimal Assistance Bathing Lower Body Moderate Assistance Dressing Upper Body Minimal Assistance Dressing Lower Body Maximal Assistance Toileting Moderate Assistance mobility performed during session in bold, other mobility completed during prior session and may no longer be correct or appropriate to complete. Functional Mobility Assist Level Additional Information Rolling Supine to Sit Moderate Assistance Sit to Supine Scooting Sit to Stand Moderate Assistance Stand to Sit Moderate Assistance Bed to Chair Moderate Assistance Stand Pivot Gait Belt;Wheeled Walker Educated on the role of OT in the acute care setting. Reviewed posterior hip precautions, patient unable to recall any.Instructed patient from supine to sit edge of bed and provided cues for proper hand placement to improve bed mobility. Instructed patient from sit to stand at wheeled walker and provided moderate physical assist and cues for proper hand placement and fall prevention (fall guarding). Provided education on safe walker navigation and fall prevention for functional mobility from bed to chair. Provided cues and physical assist for safe hand placement for stand to sit in chair. Provided pt with assist to perform grooming ADL while seated in chair to maximize indep with self care. Toilet/Commode Shower Functional Mobility Moderate Assistance Wheeled Walker Blank caro indicate activity not attempted Balance: Dynamic Standing;Dynamic Sitting Dynamic Sitting Balance: Fair Patient accepts minimal challenge, able to maintain balance while turning head/trunk Dynamic Standing Balance: Poor Patient unable to accept challenge or move without loss of balance Learning/Educational Needs: Discharge Plan;Plan of Care;Functional Activities/Mobility;Eq uipment;Precautions;Se lf Care;Safety Goals for Plan of Care: Patient/Caregiver Goals: Improve physical, mental and/or social well-being;Reduce ADL/IADL barriers Grooming with: Contact Guard Assistance (sink side or standing) Upper Body Bathing with: Contact Guard Assistance Upper Body Dressing (more content not included)... Normal [facility] Basic metabolic 2000 panelon 10-27-2022 Anion gap [Moles/Vol] 9 mmol/L Normal 9-18 [facility] Comment on above: Order Comment: Speci men Type: BLOOD SPECIMENOrdering Facility: [facility] Address: [address] [place] [address] Performed By: #### 2 4321-2 ####[facility] LABORATORYCLIA [id number] [place] [address] [place] Calcium [Mass/Vol] 9.1 mg/dL Normal 8.5-10.2 [facility] Comment on above: Order Comment: Speci men Type: BLOOD SPECIMENOrdering Facility: [facility] Address: [address] [place] [address] Performed By: #### 2 4321-2 ####[facility]ORYCLIA [id number] [place] [address] [place] Chloride [Moles/Vol] 102 mmol/L Normal 97-105 [facility] Comment on above: Order Comment: Speci men Type: BLOOD SPECIMENOrdering Facility: [facility] Address: [address] [place] [address] Performed By: #### 2 4321-2 ####[facility]ORYCLIA [id number] [place] [address] [place] CO2 [Moles/Vol] 30 mmol/L Normal 22-30 [facility] Comment on above: Order Comment: Speci men Type: BLOOD SPECIMENOrdering Facility: [facility] Address: [address] [place] [address] Performed By: #### 2 4321-2 ####[facility]ATORYCLIA [id number] [place] [address] [place] Creatinine [Mass/Vol] 0.73 mg/dL Normal 0.58-0.96 [facility] Comment on above: Order Comment: Speci men Type: BLOOD SPECIMENOrdering Facility: [facility] Address: [address] [place] [address] Performed By: #### 2 4321-2 ####[facility]ORATORYCLIA [id number] [place] [address] [place] ESTIMATED GLOMERULAR FILTRATION RATE 90 mL/min/1.73m??? Normal >=60 [facility] Comment on above: Order Comment: Kinsey herrera Type: BLOOD SPECIMENOrdering Facility: [facility] Address: [address] [place] [address] Result Comment: Jessa mated Glomerular Filtration Rate (eGFR) is calculated using the 2020 CKD-EPI creatinine equation. This equation utilizes serum creatinine, sex, and age as parameters. The creatinine assay has traceable calibration to isotope dilution-mass spectrometry. Refer to KDIGO guidelines for clinical interpretation. In patients with unstable renal function, e.g. those with acute kidney injury, the eGFR may not accurately reflect actual GFR. Performed By: #### 2 4321-2 ####[facility]ITALCLIA [id number] [place] [address] [place] Glucose [Mass/Vol] 101 mg/dL High 74-99 [facility] Comment on above: Order Comment: Kinsey herrera Type: BLOOD SPECIMENOrdering Facility: [facility] Address: [address] [place] [address] Result Comment: The [place] [employer] (ADA) provides guidance for cutoff values for fasting glucose and random glucose. The ADA defines fasting as no caloric intake for at least 8 hours. Fasting plasma glucose results between 100 to 125 mg/dL indicate increased risk for diabetes (prediabetes). Fasting plasma glucose results greater than or equal to 126 mg/dL meet the criteria for diagnosis of diabetes. In the absence of unequivocal hyperglycemia, results should be confirmed by repeat testing. In a patient with classic symptoms of hyperglycemia or hyperglycemic crisis, random plasma glucose results greater than or equal to 200 mg/dL meet the criteria for diagnosis of diabetes. Reference: Standards of Medical Care in Diabetes 2016, [place] [employer]. Diabetes Care. 2016.39(Suppl 1). Performed By: #### 2 4321-2 ####[facility]ORATORYCLIA [id number] [place] [id number] [place] Potassium [Moles/Vol] 3.9 mmol/L Normal 3.7-5.1 [facility] Comment on above: Order Comment: Speci men Type: BLOOD SPECIMENOrdering Facility: [facility] Address: [address] [place] [address] Performed By: #### 2 4321-2 ####[facility]ORATORYCLIA [id number] [address] [place] [facility] Sodium [Moles/Vol] 141 mmol/L Normal 136-144 [facility] Comment on above: Order Comment: Speci men Type: BLOOD SPECIMENOrdering Facility: [facility] Address: [address] [place] [address] Performed By: #### 2 4321-2 ####[facility]ATORYCLIA [id number] [address] Urea nitrogen [Mass/Vol] 9 mg/dL Normal 7-21 [facility] Comment on above: Order Comment: Speci men Type: BLOOD SPECIMENOrdering Facility: [facility] Address: [address] [place] [address] Performed By: #### 2 4321-2 ####[facility]ORATORYCLIA [id number] [address] CBC W Auto Differential pane l (Bld)on 12-19-2021 Basophils (Bld) [#/Vol] 0.06 10*3/uL Normal <0.11 [facility] Comment on above: Order Comment: Speci men Type: BLOOD SPECIMEN [facility] Address: [address] [place] [address] Performed By: #### T SCR #### [facility] CLIA [id number] [address] Basophils/100 WBC (Bld) 0.6 % Normal [facility] Comment on above: Order Comment: Speci men Type: BLOOD SPECIMEN [facility] Address: [address] [place] [address] Performed By: #### T SCR #### [facility] CLIA [id number] [address] Differential cell count method Nom (Bld) Auto Normal [facility] Comment on above: Order Comment: Speci men Type: BLOOD SPECIMEN [facility] Address: [address] [place] [address] Performed By: #### T SCR #### [facility] CLIA [id number] [address] [place] Eosinophils (Bld) [#/Vol] 0.29 10*3/uL Normal <0.46 [facility] Comment on above: Order Comment: Speci men Type: BLOOD SPECIMEN [facility] Address: [address] [place] [address] Performed By: #### T SCR #### [facility] CLIA [id number] [address] Eosinophils/100 WBC (Bld) 2.9 % Normal [facility] Comment on above: Order Comment: Speci men Type: BLOOD SPECIMEN [facility] Address: [address] [place] [address] Performed By: #### T SCR #### [facility] CLIA [id number] [address] Erythrocyte distribution width (RBC) [Ratio] 13.5 % Normal 11.5-15.0 [facility] Comment on above: Order Comment: Speci men Type: BLOOD SPECIMEN [facility] Address: [address] [place] [address] Performed By: #### T SCR #### [facility] CLIA [id number] [address] Hematocrit (Bld) [Volume fraction] 25.8 % Low 36.0-46.0 [facility] Comment on above: Order Comment: Speci men Type: BLOOD SPECIMEN [facility] Address: [address] [place] [address] Performed By: #### T SCR #### [facility] CLIA [id number] [address] [place] Hemoglobin (Bld) [Mass/Vol] 8.0 g/dL Low 11.5-15.5 [facility] Comment on above: Order Comment: Speci men Type: BLOOD SPECIMEN [facility] Address: [address] [place] [address] Performed By: #### T SCR #### [facility] CLIA [id number] [address] [place] Immature granulocytes (Bld) [#/Vol] 0.05 10*3/uL Normal <0.10 [facility] Comment on above: Order Comment: Speci men Type: BLOOD SPECIMEN [facility] Address: [address] [place] [address] Performed By: #### T SCR #### [facility] CLIA [id number] [address] Immature granulocytes/100 WBC (Bld) 0.5 % Normal [facility] Comment on above: Order Comment: Speci men Type: BLOOD SPECIMEN [facility] Address: [address] [place] [address] Performed By: #### T SCR #### [facility] [place] [id number] [address] [place] Lymphocytes (Bld) [#/Vol] 4.22 10*3/uL High 1.00-4.00 [facility] Comment on above: Order Comment: Speci men Type: BLOOD SPECIMEN [facility] Address: [address] [place] [address] Performed By: #### T SCR #### [facility] CLIA [id number] [address] [place] Lymphocytes/100 WBC (Bld) 41.6 % Normal [facility] Comment on above: Order Comment: Speci men Type: BLOOD SPECIMEN [facility] Address: [address] [place] [address] Performed By: #### T SCR #### [facility] CLIA [id number] [address] MCH (RBC) [Entitic mass] 29.0 pg Normal 26.0-34.0 [facility] Comment on above: Order Comment: Speci men Type: BLOOD SPECIMEN [facility] Address: [address] [place] [address] Performed By: #### T SCR #### [facility] CLIA [id number] [address] MCHC (RBC) [Mass/Vol] 31.0 g/dL Normal 30.5-36.0 [facility] Comment on above: Order Comment: Speci men Type: BLOOD SPECIMEN [facility] Address: [address] [place] [address] Performed By: #### T SCR #### [facility] CLIA [id number] [address] MCV (RBC) [Entitic vol] 93.5 fL Normal 80.0-100.0 [facility] Comment on above: Order Comment: Speci men Type: BLOOD SPECIMEN [facility] Address: [address] [place] [address] Performed By: #### T SCR #### [facility] CLIA [id number] [address] Monocytes (Bld) [#/Vol] 0.99 10*3/uL High <0.87 [facility] Comment on above: Order Comment: Speci men Type: BLOOD SPECIMEN [facility] Address: [address] [place] [address] Performed By: #### T SCR #### [facility] CLIA [id number] [address] Monocytes/100 WBC (Bld) 9.8 % Normal [facility] Comment on above: Order Comment: Speci men Type: BLOOD SPECIMEN [facility] Address: [address] [place] [place] [address] Performed By: #### T SCR #### [facility] CLIA [id number] [address] [place] Neutrophils (Bld) [#/Vol] 4.54 10*3/uL Normal 1.45-7.50 [facility] Comment on above: Order Comment: Speci men Type: BLOOD SPECIMEN [facility] Address: [address] [place] [address] Performed By: #### T SCR #### [facility] CLIA [id number] [address] Neutrophils/100 WBC (Bld) 44.6 % Normal [facility] Comment on above: Order Comment: Speci men Type: BLOOD SPECIMEN [facility] Address: [address] [place] [address] Performed By: #### T SCR #### [facility] CLIA [id number] [address] Nucleated RBC (Bld) [#/Vol] 10*3/uL Normal <0.01 [facility] Comment on above: Order Comment: Speci men Type: BLOOD SPECIMEN [facility] Address: [address] [place] [place] [address] Performed By: #### T SCR #### [facility] CLIA [id number] [address] [place] Nucleated RBC/100 WBC (Bld) [Ratio] 0.0 /100 WBC Normal [facility] Comment on above: Order Comment: Speci men Type: BLOOD SPECIMEN [facility] Address: [address] [place] [address] Performed By: #### T SCR #### [facility] CLIA [id number] [address] [place] [address] Platelet mean volume (Bld) [Entitic vol] 9.5 fL Normal 9.0-12.7 [facility] Comment on above: Order Comment: Speci men Type: BLOOD SPECIMEN [facility] Address: [address] [place] [address] Performed By: #### T SCR #### [facility] CLIA [id number] [address] Platelets (Bld) [#/Vol] 375 10*3/uL Normal 150-400 [facility] Comment on above: Order Comment: Speci men Type: BLOOD SPECIMEN [facility] Address: [address] [place] [address] Performed By: #### T SCR #### [facility] CLIA [id number] [address] RBC (Bld) [#/Vol] 2.76 10*6/uL Low 3.90-5.20 [facility] Comment on above: Order Comment: Speci men Type: BLOOD SPECIMEN [facility] Address: [address] [place] [address] Performed By: #### T SCR #### [facility] CLIA [id number] [address] WBC (Bld) [#/Vol] 10.15 10*3/uL Normal 3.70-11.00 [facility] Comment on above: Order Comment: Speci men Type: BLOOD SPECIMEN [facility] Address: [address] [place] [address] Performed By: #### T SCR #### [facility] CLIA [id number] [address] NURSING PROGon 12-19-2021 NURSING PROG HNO ID: [id number] Author: Colten Hurley RN Service: Nursing Author Type: Registered Nurse Type: Nursing Progress Note Filed: 12/18/2021 11:13 PM Note Text: Other: okay to keep IV out per primary team. 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 Patient sleep important for elderly patient with hx of memory impairment. Normal [facility] THERAPY NTon 12-19-2021 THERAPY NT HNO ID: [id number] Author: Jesus Enrique PTA Service: Physical Therapy Author Type: Professor Of Physical Education Type: Therapy (PT/OT/Speech/Resp) Filed: 12/19/2021 3:05 PM Note Text: Attestation signed by Rae Garza PT at 12/19/2021 4:31 PM I reviewed and agree with the documentation corresponding to this therapy visit. SIGNATURE: Rae Garza PT DATE: December 19, 2021 TIME: 4:31 PM Physical Therapy Treatment SERVICE DATE: 12/19/2021 SERVICE TIME: 1433 to 1457 ROOM: [id number] Recommended Discharge Disposition: Subacute/SNF Recommended Discharge Disposition Due to: Patient requires daily, facility-based rehabilitation from at least one discipline due to:;decline in functional status requiring daily skilled care PT 6 Clicks Score: 11 Patient continues to require increased assist with all mobility tasks. Patient stated knowing falling, did not realize had surgery already. Patient continues to be well below baseline functioning. Patient continues to be recommended for subacute/SNF to improve strength, balance, endurance, increased ambulation distances with normalize gait pattern, and increased independence with functional task performance/mobility to prior level of function. Additional personnel present during visit: Arlen Maldonado Precautions/Activity Restrictions: Weight Bearing Restrictions;Hip Precautions - Posterior Dislocation Isolation Type: None Extremity With Weight Bearing Restricted: Left Lower Extremity Left Lower Extremity Weight Bearing Status: WBAT Current Hospital Course: S/p L hemiarthroplasty. Patient also had a fall in hospital 12/15 with no injury. Reason for Hospital Admission: Fall Relevant Past Medical History: dementia, anxiety, depression, humeral fx Response to Therapy Interventions: Good participation in activities Continue skilled needs due to: Functional mobility/skill impairments, Safety concerns Physical Therapy Problem List: Education Deficit;Safety Deficits;Decreased Activity Tolerance;Decreased Strength;Functional Mobility Impairment;Balance Impaired Treatment Interventions: Education;Strengthenin g;Functional Mobility Training;Balance Training Plan for next visit: Bed mobility, Chair transfer training, Gait training, Exercise instruction/handout, Sit to Stand Transfers, Standing Balance, Standing Tolerance Home Environment Patient Lives With: Facility Care Assistance Available: 24-Hour Equipment Owned: Rollator;Shower Chair Prior Functional Level: Required Assistance Assistance Required With: Laundry;Cleaning;Trans portation;Shopping;Anika f Care;Meals;Medication Management Prior Functional Level Comments: pt poor historian, per chart review patient is from [facility]. Patient reports using walker and does her own ADLs Baseline Cognition: Confused;Forgetful;Favio ented to self;Requires 24/7 supervision Patient Report: agreeable to PT session CURRENT FUNCTIONAL STATUS: Most recent performance mobility performed during session in bold, other mobility completed during prior session and may no longer be correct or appropriate to complete. Current Functional Mobility Assist Level Additional Information Rolling Supine to Sit Moderate Assistance;Additional Information via long sit pivot, patient able to bring trunk forward on own--assist with trunk and LE to transition to sitting at EOB, cuing/assist to maintain hip precautions Sit to Supine Scooting Moderate Assistance;Additional Information with draw sheet Sit to Stand Moderate Assistance cuing to slide LLE out, powering up with LEs, proper UE support Stand to Sit Moderate Assistance;Additional Information cuing to slide LLE out, proper UE support, assist with eccentric control Bed to Chair Moderate Assistance Bed To Chair Transfer Type: Stepping Bed To Chair Transfer Equipment: Gait Belt;Wheeled Walker Toilet/Commode Gait Moderate Assistance Gait Device: Wheeled Walker Gait Distance (feet): 5' cuing/assist with posture, balance, walker management, proper LE stepping, cues needed to hold brim flexer of walker with hands. Stairs Curb Step Car Transfer Blank caro indicate activity not attempted General Deviations/Observation s: Antalgic gait;Luz decreased;Difficulty changing direction/turning;Flex ed trunk posture;Non-functional gait speed;Shuffling Gait;Step length decreased;Improper distancing from assistive device Balance: Static Sitting;Dynamic Sitting;Static Standing;Dynamic Standing Static Sitting Balance: Good Patient able to maintain balance without handhold support, limited postural sway Dynamic Sitting Balance: Good Patient accepts moderate challenge, able to maintain balance while picking up object off floor Static Standing Balance: Fair Patient able to maintain balance wit (more content not included)... Normal [facility] Basic metabolic 2000 panelon 12-18-2021 Anion gap [Moles/Vol] 11 mmol/L Normal 9-18 [facility] Comment on above: Order Comment: Speci men Type: BLOOD SPECIMENOrdering Facility: [facility] Address: [address] [place] [address] Performed By: #### 2 4321-2 ####[facility]ORATORYCLIA [id number] [place] [address] [place] Calcium [Mass/Vol] 8.8 mg/dL Normal 8.5-10.2 [facility] Comment on above: Order Comment: Speci men Type: BLOOD SPECIMENOrdering Facility: [facility] Address: [address] [address] Performed By: #### 2 4321-2 ####[facility]ATORYCLIA [id number] [place] [address] [place] Chloride [Moles/Vol] 101 mmol/L Normal 97-105 [facility] Comment on above: Order Comment: Speci men Type: BLOOD SPECIMENOrdering Facility: [facility] Address: [address] [place] [address] Performed By: #### 2 4321-2 ####[facility]ATORYCLIA [id number] [address] [place] CO2 [Moles/Vol] 27 mmol/L Normal 22-30 [facility] Comment on above: Order Comment: Speci men Type: BLOOD SPECIMENOrdering Facility: [facility] Address: [address] [place] [address] Performed By: #### 2 4321-2 ####[facility] LABORATORYCLIA [id number] [address] Creatinine [Mass/Vol] 0.66 mg/dL Normal 0.58-0.96 [facility] Comment on above: Order Comment: Speci men Type: BLOOD SPECIMENOrdering Facility: [facility] Address: [address] [place] [address] Performed By: #### 2 4321-2 ####[facility]ITALCLIA [id number] [address] ESTIMATED GLOMERULAR FILTRATION RATE 96 mL/min/1.73m??? Normal >=60 [facility] Comment on above: Order Comment: Speci men Type: BLOOD SPECIMENOrdering Facility: [facility] Address: [address] [place] [address] Result Comment: Jessa mated Glomerular Filtration Rate (eGFR) is calculated using the 2020 CKD-EPI creatinine equation. This equation utilizes serum creatinine, sex, and age as parameters. The creatinine assay has traceable calibration to isotope dilution-mass spectrometry. Refer to KDIGO guidelines for clinical interpretation. In patients with unstable renal function, e.g. those with acute kidney injury, the eGFR may not accurately reflect actual GFR. Performed By: #### 2 4321-2 ####[facility]ORATORYCLIA [id number] [address] OF [facility] Glucose [Mass/Vol] 111 mg/dL High 74-99 [facility] Comment on above: Order Comment: Speci men Type: BLOOD SPECIMENOrdering Facility: [facility] Address: [address] [place] [address] Result Comment: The [place] Diabetes Association (ADA) provides guidance for cutoff values for fasting glucose and random glucose. The ADA defines fasting as no caloric intake for at least 8 hours. Fasting plasma glucose results between 100 to 125 mg/dL indicate increased risk for diabetes (prediabetes). Fasting plasma glucose results greater than or equal to 126 mg/dL meet the criteria for diagnosis of diabetes. In the absence of unequivocal hyperglycemia, results should be confirmed by repeat testing. In a patient with classic symptoms of hyperglycemia or hyperglycemic crisis, random plasma glucose results greater than or equal to 200 mg/dL meet the criteria for diagnosis of diabetes. Reference: Standards of Medical Care in Diabetes 2016, [place] [employer]. Diabetes Care. 2016.39(Suppl 1). Performed By: #### 2 4321-2 ####[facility] LABORATORYCLIA [id number] [address] STATES OF [facility] Potassium [Moles/Vol] 4.0 mmol/L Normal 3.7-5.1 [facility] Comment on above: Order Comment: Speci men Type: BLOOD SPECIMENOrdering Facility: [facility] Address: [address] [place] [address] Performed By: #### 2 1-2 ####[facility]ORATORYCLIA [id number] [address] Sodium [Moles/Vol] 139 mmol/L Normal 136-144 [facility] Comment on above: Order Comment: Micahi men Type: BLOOD SPECIMENOrdering Facility: [facility] Address: [address] [place] [address] Performed By: #### 2 4321-2 ####[facility]ORATORYCLIA [id number] [address] STATES [facility] Urea nitrogen [Mass/Vol] 8 mg/dL Normal 7-21 [facility] Comment on above: Order Comment: Speci men Type: BLOOD SPECIMENOrdering Facility: [facility] Address: [address] [address] Performed By: #### 2 4321-2 ####[facility]ORATORYCLIA [id number] [address] [place] CBC W Auto Differential pane l (Bld)on 12-18-2021 Basophils (Bld) [#/Vol] 0.03 10*3/uL Normal <0.11 [facility] Comment on above: Order Comment: Speci men Type: BLOOD SPECIMENOrdering Facility: [facility] Address: [address] [address] Performed By: #### 5 7021-8 ####[facility] LABORATORYCLIA [id number] [place] [address] [place] Basophils/100 WBC (Bld) 0.3 % Normal [facility] Comment on above: Order Comment: Speci men Type: BLOOD SPECIMENOrdering Facility: [facility] Address: [address] [place] [address] Performed By: #### 5 7021-8 ####[facility]ATORYCLIA [id number] [address] STATES OF [facility] Differential cell count method Nom (Bld) Auto Normal [facility] Comment on above: Order Comment: Speci men Type: BLOOD SPECIMENOrdering Facility: [facility] Address: [address] [place] [address] Performed By: #### 5 7021-8 ####[facility]ATORYCLIA [id number] [place] [address] [place] Eosinophils (Bld) [#/Vol] 0.41 10*3/uL Normal <0.46 [facility] Comment on above: Order Comment: Speci men Type: BLOOD SPECIMENOrdering Facility: [facility] Address: [address] [place] [address] Performed By: #### 5 7021-8 ####[facility]ORATORYCLIA [id number] [address] Eosinophils/100 WBC (Bld) 4.7 % Normal [facility] Comment on above: Order Comment: Speci men Type: BLOOD SPECIMENOrdering Facility: [facility] Address: [address] [place] [address] Performed By: #### 5 7021-8 ####[facility]ATORYCLIA [id number] [address] [place] Erythrocyte distribution width (RBC) [Ratio] 13.2 % Normal 11.5-15.0 [facility] Comment on above: Order Comment: Speci men Type: BLOOD SPECIMENOrdering Facility: [facility] Address: [address] [place] [address] Performed By: #### 5 7021-8 ####[facility]ORATORYCLIA [id number] [address] OF [facility] Hematocrit (Bld) [Volume fraction] 27.1 % Low 36.0-46.0 [facility] Comment on above: Order Comment: Speci men Type: BLOOD SPECIMENOrdering Facility: [facility] Address: [address] [place] [address] Performed By: #### 5 7021-8 ####[facility]ATORYCLIA [id number] [address] OF [facility] Hemoglobin (Bld) [Mass/Vol] 8.6 g/dL Low 11.5-15.5 [facility] Comment on above: Order Comment: Speci men Type: BLOOD SPECIMENOrdering Facility: [facility] Address: [address] [place] [address] Performed By: #### 5 7021-8 ####[facility]ATORYCLIA [id number] [address] OF [place] Immature granulocytes (Bld) [#/Vol] 0.04 10*3/uL Normal <0.10 [facility] Comment on above: Order Comment: Speci men Type: BLOOD SPECIMENOrdering Facility: [facility] Address: [address] [place] [address] Performed By: #### 5 7021-8 ####[facility]ATORYCLIA [id number] [address] Immature granulocytes/100 WBC (Bld) 0.5 % Normal [facility] Comment on above: Order Comment: Speci men Type: BLOOD SPECIMENOrdering Facility: [facility] Address: [address] [place] [address] Performed By: #### 5 7021-8 ####[facility]ATORYCLIA [id number] [address] Lymphocytes (Bld) [#/Vol] 2.72 10*3/uL Normal 1.00-4.00 [facility] Comment on above: Order Comment: Speci men Type: BLOOD SPECIMENOrdering Facility: [facility] Address: [address] [place] [address] Performed By: #### 5 7021-8 ####[facility]ATORYCLIA [id number] [address] Lymphocytes/100 WBC (Bld) 30.9 % Normal [facility] Comment on above: Order Comment: Speci men Type: BLOOD SPECIMENOrdering Facility: [facility] Address: [address] [place] [address] Performed By: #### 5 7021-8 ####[facility]ORATORYCLIA [id number] [address] MCH (RBC) [Entitic mass] 29.6 pg Normal 26.0-34.0 [facility] Comment on above: Order Comment: Speci men Type: BLOOD SPECIMENOrdering Facility: [facility] Address: [address] [place] [address] Performed By: #### 5 7021-8 ####[facility]ORATORYCLIA [id number] [address] STATES [facility] MCHC (RBC) [Mass/Vol] 31.7 g/dL Normal 30.5-36.0 [facility] Comment on above: Order Comment: Speci men Type: BLOOD SPECIMENOrdering Facility: [facility] Address: [address] [place] [address] Performed By: #### 5 7021-8 ####[facility]ATORYCLIA [id number] [address] MCV (RBC) [Entitic vol] 93.1 fL Normal 80.0-100.0 [facility] Comment on above: Order Comment: Speci men Type: BLOOD SPECIMENOrdering Facility: [facility] Address: [address] [place] [address] Performed By: #### 5 7021-8 ####[facility]ATORYCLIA [id number] [address] [place] Monocytes (Bld) [#/Vol] 0.84 10*3/uL Normal <0.87 [facility] Comment on above: Order Comment: Speci men Type: BLOOD SPECIMENOrdering Facility: [facility] Address: [address] [place] [address] Performed By: #### 5 7021-8 ####[facility]ATORYCLIA [id number] [address] Monocytes/100 WBC (Bld) 9.5 % Normal [facility] Comment on above: Order Comment: Speci men Type: BLOOD SPECIMENOrdering Facility: [facility] Address: [address] [place] [address] Performed By: #### 5 7021-8 ####[facility]ATORYCLIA [id number] [address] [place] Neutrophils (Bld) [#/Vol] 4.76 10*3/uL Normal 1.45-7.50 [facility] Comment on above: Order Comment: Speci men Type: BLOOD SPECIMENOrdering Facility: [facility] Address: [address] [place] [address] Performed By: #### 5 7021-8 ####[facility]ATORYCLIA [id number] [address] Neutrophils/100 WBC (Bld) 54.1 % Normal [facility] Comment on above: Order Comment: Speci men Type: BLOOD SPECIMENOrdering Facility: [facility] Address: [address] [place] [address] Performed By: #### 5 7021-8 ####[facility]ATORYCLIA [id number] [address] [place] Nucleated RBC (Bld) [#/Vol] 10*3/uL Normal <0.01 [facility] Comment on above: Order Comment: Speci men Type: BLOOD SPECIMENOrdering Facility: [facility] Address: [address] [place] [address] Performed By: #### 5 7021-8 ####[facility]ATORYCLIA [id number] [address] [place] Nucleated RBC/100 WBC (Bld) [Ratio] 0.0 /100 WBC Normal [facility] Comment on above: Order Comment: Speci men Type: BLOOD SPECIMENOrdering Facility: [facility] Address: [address] [place] [address] Performed By: #### 5 7021-8 ####[facility]ATORYCLIA [id number] [address] [place] Platelet mean volume (Bld) [Entitic vol] 9.9 fL Normal 9.0-12.7 [facility] Comment on above: Order Comment: Speci men Type: BLOOD SPECIMENOrdering Facility: [facility] Address: [address] [place] [address] Performed By: #### 5 7021-8 ####[facility]ATORYCLIA [id number] [address] OF [place] Platelets (Bld) [#/Vol] 327 10*3/uL Normal 150-400 [facility] Comment on above: Order Comment: Speci men Type: BLOOD SPECIMENOrdering Facility: [facility] Address: [address] [place] [address] Performed By: #### 5 7021-8 ####[facility]ATORYCLIA [id number] [address] [place] RBC (Bld) [#/Vol] 2.91 10*6/uL Low 3.90-5.20 [facility] Comment on above: Order Comment: Kinsey herrera Type: BLOOD SPECIMENOrdering Facility: [facility] Address: [address] [place], [place] [address] Performed By: #### 5 7021-8 ####[facility]ATORYCLIA [id number] [address] WBC (Bld) [#/Vol] 8.80 10*3/uL Normal 3.70-11.00 [facility] Comment on above: Order Comment: Kinsey herrera Type: BLOOD SPECIMENOrdering Facility: [facility] Address: [address] [place], [place] [address] Performed By: #### 5 7021-8 ####[facility]ORATORYCLIA [id number] [address] THERAPY NTon 12-18-2021 THERAPY NT HNO ID: [id number] Author: Adryan Jonas PT Service: Physical Therapy Author Type: Physical Therapist Type: Therapy (PT/OT/Speech/Resp) Filed: 12/18/2021 11:28 AM Note Text: Physical Therapy Treatment SERVICE DATE: 12/18/2021 SERVICE TIME: 1047 to 1117 ROOM: [place] [address] Recommended Discharge Disposition: Subacute/SNF Recommended Discharge Disposition Due to: Patient requires daily, facility-based rehabilitation from at least one discipline due to:;decline in functional status requiring daily skilled care PT 6 Clicks Score: 11 Patient with no recollection of dislocation precautions but does know that she had a "hip replacement". Even following review, patient unable to recall precautions. Patient with slight less physical assistance needed for bed mobility and transfers. Ambulated slight increased distance today. Precautions/Activity Restrictions: Weight Bearing Restrictions;Hip Precautions - Posterior Dislocation Isolation Type: None Extremity With Weight Bearing Restricted: Left Lower Extremity Left Lower Extremity Weight Bearing Status: WBAT Current Hospital Course: S/p L hemiarthroplasty. Patient also had a fall in hospital 12/15 with no injury. Reason for Hospital Admission: Fall Relevant Past Medical History: dementia, anxiety, depression, humeral fx Response to Therapy Interventions: Good participation in activities, Cognitive deficits, Needs frequent redirection or re-instruction, Requires additional time to complete activities Physical Therapy Problem List: Education Deficit;Safety Deficits;Decreased Activity Tolerance;Decreased Strength;Functional Mobility Impairment;Balance Impaired Treatment Interventions: Education;Strengthenin g;Functional Mobility Training;Balance Training Home Environment Patient Lives With: Facility Care Assistance Available: 24-Hour Equipment Owned: Rollator;Shower Chair Prior Functional Level: Required Assistance Assistance Required With: Laundry;Cleaning;Trans portation;Shopping;Anika f Care;Meals;Medication Management Prior Functional Level Comments: pt poor historian, per chart review patient is from [facility]. Patient reports using walker and does her own ADLs Baseline Cognition: Confused;Forgetful;Favio ented to self;Requires 24/ supervision Patient Report: agreeable to PT session CURRENT FUNCTIONAL STATUS: Most recent performance Current Functional Mobility Assist Level Additional Information Rolling Supine to Sit Moderate Assistance Sit to Supine Scooting Moderate Assistance Sit to Stand Moderate Assistance cuing to slide LLE out, powering up with LEs, proper UE support Stand to Sit Moderate Assistance;Additional Information cuing to slide LLE out, proper UE support, assist with eccentric control Bed to Chair Moderate Assistance Bed To Chair Transfer Type: Stepping Bed To Chair Transfer Equipment: Gait Belt;Wheeled Walker Toilet/Commode Gait Moderate Assistance;Additional Information Gait Device: Wheeled Walker Gait Distance (feet): 5' cuing/assist with posture, balance, walker management, proper LE stepping, cues needed to hold brim flexer of walker with hands. Stairs Curb Step Car Transfer Blank caro indicate activity not attempted General Deviations/Observation s: Antalgic gait;Luz decreased;Difficulty changing direction/turning;Flex ed trunk posture;Non-functional gait speed;Shuffling Gait;Step length decreased;Improper distancing from assistive device Balance: Static Sitting;Dynamic Sitting;Static Standing;Dynamic Standing Static Sitting Balance: Good Patient able to maintain balance without handhold support, limited postural sway Dynamic Sitting Balance: Good Patient accepts moderate challenge, able to maintain balance while picking up object off floor Static Standing Balance: Fair Patient able to maintain balance with handhold support, may require occasional minimal assistance Dynamic Standing Balance: Fair Patient accepts minimal challenge, able to maintain balance while turning head/trunk JH-HLM: 5: Standing (1 or more minutes) Learning/Educational Needs: Functional Activities/Mobility Goals for Plan of Care: Patient /Caregiver Goals: Go Home Able to perform HEP with: Independent Transfer supine to/from sit with: Independent Transfer sit to/from stand with: Independent Ambulate with: Independent Distance: 45 Device: Wheeled Walker Progress Toward Goals: Progressing as expected Rehab Potential: Excellent Patient will be discontinued from Physical Therapy when no further skilled needs are identified in this setting. PLAN: PT Frequency: 5 times per week (3-5) Plan of Care developed with: Patient TREATMENT INTERVENTIONS: Therapy Diagnosis: Muscle Weakness (generalized);Abnormal ities of gait and mobility-other Interventions Provided: Therapeutic Exercise (99879);Therapeutic Activity (73309);Gait Training (54461) Therapeutic Exercise (06865) Treatment Minutes: 1 (more content not included)... Normal [facility] Basic metabolic 2000 panelon 12-17-2021 Anion gap [Moles/Vol] 8 mmol/L Low 9-18 [facility] Comment on above: Order Comment: Speci men Type: BLOOD SPECIMENOrdering Facility: [facility] Address: [address] [place] [address] Performed By: #### 2 4321-2 ####[facility]ORATORYCLIA [id number] [place] [address] [place] Calcium [Mass/Vol] 8.3 mg/dL Low 8.5-10.2 [facility] Comment on above: Order Comment: Speci men Type: BLOOD SPECIMENOrdering Facility: [facility] Address: [address] [place] [address] Performed By: #### 2 4321-2 ####[facility]ORATORYCLIA [id number] [place] [address] [place] Chloride [Moles/Vol] 102 mmol/L Normal 97-105 [facility] Comment on above: Order Comment: Speci men Type: BLOOD SPECIMENOrdering Facility: [facility] Address: [address] [place] [address] Performed By: #### 2 4321-2 ####[facility]ORATORYCLIA [id number] [place] [address] [place] CO2 [Moles/Vol] 26 mmol/L Normal 22-30 [facility] Comment on above: Order Comment: Speci men Type: BLOOD SPECIMENOrdering Facility: [facility] Address: [address] [address] Performed By: #### 2 4321-2 ####[facility]ITALIA [id number] [address] Creatinine [Mass/Vol] 0.62 mg/dL Normal 0.58-0.96 [facility] Comment on above: Order Comment: Speci men Type: BLOOD SPECIMENOrdering Facility: [facility] Address: [address] [place] [address] Performed By: #### 2 4321-2 ####[facility]ITALIA [id number] [address] ESTIMATED GLOMERULAR FILTRATION RATE 98 mL/min/1.73m??? Normal >=60 [facility] Comment on above: Order Comment: Speci javier Type: BLOOD SPECIMENOrdering Facility: [facility] Address: [address] [place] [address] Result Comment: Jessa mated Glomerular Filtration Rate (eGFR) is calculated using the 2020 CKD-EPI creatinine equation. This equation utilizes serum creatinine, sex, and age as parameters. The creatinine assay has traceable calibration to isotope dilution-mass spectrometry. Refer to KDIGO guidelines for clinical interpretation. In patients with unstable renal function, e.g. those with acute kidney injury, the eGFR may not accurately reflect actual GFR. Performed By: #### 2 4321-2 ####[facility] LABORATORYIA [id number] [address] Glucose [Mass/Vol] 122 mg/dL High 74-99 [facility] Comment on above: Order Comment: Specrodo herrera Type: BLOOD SPECIMENOrdering Facility: [facility] Address: [address] [place] [address] Result Comment: The [place] Diabetes Association (ADA) provides guidance for cutoff values for fasting glucose and random glucose. The ADA defines fasting as no caloric intake for at least 8 hours. Fasting plasma glucose results between 100 to 125 mg/dL indicate increased risk for diabetes (prediabetes). Fasting plasma glucose results greater than or equal to 126 mg/dL meet the criteria for diagnosis of diabetes. In the absence of unequivocal hyperglycemia, results should be confirmed by repeat testing. In a patient with classic symptoms of hyperglycemia or hyperglycemic crisis, random plasma glucose results greater than or equal to 200 mg/dL meet the criteria for diagnosis of diabetes. Reference: Standards of Medical Care in Diabetes 2016, [place] [employer]. Diabetes Care. 2016.39(Suppl 1). Performed By: #### 2 4321-2 ####[facility]ORATORYCLIA [id number] [address] STATES OF [facility] Potassium [Moles/Vol] 3.9 mmol/L Normal 3.7-5.1 [facility] Comment on above: Order Comment: Speci men Type: BLOOD SPECIMENOrdering Facility: [facility] Address: [address] [place] [address] Performed By: #### 2 4321-2 ####[facility]ATORYCLIA [id number] [address] Sodium [Moles/Vol] 136 mmol/L Normal 136-144 [facility] Comment on above: Order Comment: Speci men Type: BLOOD SPECIMENOrdering Facility: [facility] Address: [address] [place] [address] Performed By: #### 2 4321-2 ####[facility]ORATORYCLIA [id number] [address] STATES [facility] Urea nitrogen [Mass/Vol] 9 mg/dL Normal 7-21 [facility] Comment on above: Order Comment: Speci men Type: BLOOD SPECIMENOrdering Facility: [facility] Address: [address] [place] [address] Performed By: #### 2 4321-2 ####[facility]ORATORYCLIA [id number] [address] [place] CBC W Auto Differential pane l (Bld)on 12-17-2021 Basophils (Bld) [#/Vol] 0.04 10*3/uL Normal <0.11 [facility] Comment on above: Order Comment: Speci men Type: BLOOD SPECIMENOrdering Facility: [facility] Address: [address] [address] Performed By: #### 5 7021-8 ####[facility]ATORYCLIA [id number] [address] Basophils/100 WBC (Bld) 0.4 % Normal [facility] Comment on above: Order Comment: Speci men Type: BLOOD SPECIMENOrdering Facility: [facility] Address: [address] [place] [address] Performed By: #### 5 7021-8 ####[facility]ORATORYCLIA [id number] [address] Differential cell count method Nom (Bld) Auto Normal [facility] Comment on above: Order Comment: Speci men Type: BLOOD SPECIMENOrdering Facility: [facility] Address: [address] [place] [address] Performed By: #### 5 7021-8 ####[facility]ATORYCLIA [id number] [address] STATES OF [facility] Eosinophils (Bld) [#/Vol] 0.51 10*3/uL High <0.46 [facility] Comment on above: Order Comment: Speci men Type: BLOOD SPECIMENOrdering Facility: [facility] Address: [address] [place] [address] Performed By: #### 5 7021-8 ####[facility]ATORYCLIA [id number] [address] Eosinophils/100 WBC (Bld) 4.5 % Normal [facility] Comment on above: Order Comment: Speci men Type: BLOOD SPECIMENOrdering Facility: [facility] Address: [address] [place] [address] Performed By: #### 5 7021-8 ####[facility]ATORYCLIA [id number] [address] [place] Erythrocyte distribution width (RBC) [Ratio] 13.4 % Normal 11.5-15.0 [facility] Comment on above: Order Comment: Speci men Type: BLOOD SPECIMENOrdering Facility: [facility] Address: [address] [place] [address] Performed By: #### 5 7021-8 ####[facility]ORATORYCLIA [id number] [address] OF [facility] Hematocrit (Bld) [Volume fraction] 25.9 % Low 36.0-46.0 [facility] Comment on above: Order Comment: Speci men Type: BLOOD SPECIMENOrdering Facility: [facility] Address: [address] [place] [address] Performed By: #### 5 7021-8 ####[facility]ORATORYCLIA [id number] [address] [place] Hemoglobin (Bld) [Mass/Vol] 8.2 g/dL Low 11.5-15.5 [facility] Comment on above: Order Comment: Speci men Type: BLOOD SPECIMENOrdering Facility: [facility] Address: [address] [place] [address] Performed By: #### 5 7021-8 ####[facility]ORATORYCLIA [id number] [address] [place] Immature granulocytes (Bld) [#/Vol] 0.04 10*3/uL Normal <0.10 [facility] Comment on above: Order Comment: Speci men Type: BLOOD SPECIMENOrdering Facility: [facility] Address: [address] [place] [address] Performed By: #### 5 7021-8 ####[facility]ORATORYCLIA [id number] [address] Immature granulocytes/100 WBC (Bld) 0.4 % Normal [facility] Comment on above: Order Comment: Speci men Type: BLOOD SPECIMENOrdering Facility: [facility] Address: [address] [place] [address] Performed By: #### 5 7021-8 ####[facility]ORATORYCLIA [id number] [address] OF [facility] Lymphocytes (Bld) [#/Vol] 2.84 10*3/uL Normal 1.00-4.00 [facility] Comment on above: Order Comment: Speci men Type: BLOOD SPECIMENOrdering Facility: [facility] Address: [address] [place] [address] Performed By: #### 5 7021-8 ####[facility]ORATORYCLIA [id number] [address] Lymphocytes/100 WBC (Bld) 25.1 % Normal [facility] Comment on above: Order Comment: Speci men Type: BLOOD SPECIMENOrdering Facility: [facility] Address: [address] [place] [address] Performed By: #### 5 7021-8 ####[facility]ORATORYCLIA [id number] [address] MCH (RBC) [Entitic mass] 29.8 pg Normal 26.0-34.0 [facility] Comment on above: Order Comment: Speci men Type: BLOOD SPECIMENOrdering Facility: [facility] Address: [address] [place] [address] Performed By: #### 5 7021-8 ####[facility]ORATORYCLIA [id number] [address] [place] MCHC (RBC) [Mass/Vol] 31.7 g/dL Normal 30.5-36.0 [facility] Comment on above: Order Comment: Speci men Type: BLOOD SPECIMENOrdering Facility: [facility] Address: [address] [place] [address] Performed By: #### 5 7021-8 ####[facility]ATORYCLIA [id number] [address] MCV (RBC) [Entitic vol] 94.2 fL Normal 80.0-100.0 [facility] Comment on above: Order Comment: Speci men Type: BLOOD SPECIMENOrdering Facility: [facility] Address: [address] [address] Performed By: #### 5 7021-8 ####[facility]ORATORYCLIA [id number] [place] [address] [place] Monocytes (Bld) [#/Vol] 1.28 10*3/uL High <0.87 [facility] Comment on above: Order Comment: Speci men Type: BLOOD SPECIMENOrdering Facility: [facility] Address: [address] [place] [address] Performed By: #### 5 7021-8 ####[facility]ATORYCLIA [id number] [address] [place] Monocytes/100 WBC (Bld) 11.3 % Normal [facility] Comment on above: Order Comment: Speci men Type: BLOOD SPECIMENOrdering Facility: [facility] Address: [address] [place] [address] Performed By: #### 5 7021-8 ####[facility]ATORYCLIA [id number] [address] [place] Neutrophils (Bld) [#/Vol] 6.61 10*3/uL Normal 1.45-7.50 [facility] Comment on above: Order Comment: Speci men Type: BLOOD SPECIMENOrdering Facility: [facility] Address: [address] [place] [address] Performed By: #### 5 7021-8 ####[facility]ATORYCLIA [id number] [address] [place] Neutrophils/100 WBC (Bld) 58.3 % Normal [facility] Comment on above: Order Comment: Speci men Type: BLOOD SPECIMENOrdering Facility: [facility] Address: [address] [place] [address] Performed By: #### 5 7021-8 ####[facility]ATORYCLIA [id number] [place] [address] [place] Nucleated RBC (Bld) [#/Vol] 10*3/uL Normal <0.01 [facility] Comment on above: Order Comment: Speci men Type: BLOOD SPECIMENOrdering Facility: [facility] Address: [address] [place] [address] Performed By: #### 5 7021-8 ####[facility]ATORYCLIA [id number] [address] Nucleated RBC/100 WBC (Bld) [Ratio] 0.0 /100 WBC Normal [facility] Comment on above: Order Comment: Speci men Type: BLOOD SPECIMENOrdering Facility: [facility] Address: [address] [place] [address] Performed By: #### 5 7021-8 ####[facility]ATORYCLIA [id number] [address] [place] Platelet mean volume (Bld) [Entitic vol] 10.3 fL Normal 9.0-12.7 [facility] Comment on above: Order Comment: Speci men Type: BLOOD SPECIMENOrdering Facility: [facility] Address: [address] [place] [address] Performed By: #### 5 7021-8 ####[facility]ATORYCLIA [id number] [address] [place] Platelets (Bld) [#/Vol] 259 10*3/uL Normal 150-400 [facility] Comment on above: Order Comment: Speci men Type: BLOOD SPECIMENOrdering Facility: [facility] Address: [address] [place], [place] [address] Performed By: #### 5 7021-8 ####[facility]ATORYCLIA [id number] [address] [place] RBC (Bld) [#/Vol] 2.75 10*6/uL Low 3.90-5.20 [facility] Comment on above: Order Comment: Speci men Type: BLOOD SPECIMENOrdering Facility: [facility] Address: [address] [place] [address] Performed By: #### 5 7021-8 ####[facility]ORATORYCLIA [id number] [place] [address] [place] WBC (Bld) [#/Vol] 11.32 10*3/uL High 3.70-11.00 [facility] Comment on above: Order Comment: Speci men Type: BLOOD SPECIMENOrdering Facility: [facility] Address: [facility] [place] [id number] Performed By: #### 5 7021-8 ####[facility]ORATORYCLIA [id number] [place] [id number] [facility] THERAPY NTon 12-17-2021 THERAPY NT HNO ID: [id number] Author: Jesus Enrique PTA Service: Physical Therapy Author Type: Professor Of Physical Education Type: Therapy (PT/OT/Speech/Resp) Filed: 12/17/2021 11:50 AM Note Text: Attestation signed by Rae Garza PT at 12/17/2021 4:31 PM I reviewed and agree with the documentation corresponding to this therapy visit. SIGNATURE: Rae Garza PT DATE: December 17, 2021 TIME: 4:31 PM Physical Therapy Treatment SERVICE DATE: 12/17/2021 SERVICE TIME: 1048 to 1113 ROOM: [id number] Recommended Discharge Disposition: Subacute/SNF Recommended Discharge Disposition Due to: Patient requires daily, facility-based rehabilitation from at least one discipline due to:;decline in functional status requiring daily skilled care PT 6 Clicks Score: 11 Patient continues to require increased assist with all mobility tasks. Patient does not know hip precautions or fact of having hemiarthroplasty. Patient continues to be recommended for subacute/SNF to improve strength, balance, endurance, increased ambulation distances with normalize gait pattern, and increased independence with functional task performance/mobility to prior level of function. Additional personnel present during visit: Arlen Maldonado Precautions/Activity Restrictions: Weight Bearing Restrictions;Hip Precautions - Posterior Dislocation Isolation Type: None Extremity With Weight Bearing Restricted: Left Lower Extremity Left Lower Extremity Weight Bearing Status: WBAT Current Hospital Course: S/p L hemiarthroplasty. Patient also had a fall in hospital 12/15 with no injury. Reason for Hospital Admission: Fall Relevant Past Medical History: dementia, anxiety, depression, humeral fx Response to Therapy Interventions: Good participation in activities, Cognitive deficits, Needs frequent redirection or re-instruction, Requires additional time to complete activities Continue skilled needs due to: Functional mobility/skill impairments, Safety concerns Physical Therapy Problem List: Education Deficit;Safety Deficits;Decreased Activity Tolerance;Decreased Strength;Functional Mobility Impairment;Balance Impaired Treatment Interventions: Education;Strengthenin g;Functional Mobility Training;Balance Training Plan for next visit: Bed mobility, Chair transfer training, Gait training, Exercise instruction/handout, Sit to Stand Transfers, Standing Balance, Standing Tolerance Home Environment Patient Lives With: Facility Care Assistance Available: 24-Hour Equipment Owned: Rollator;Shower Chair Prior Functional Level: Required Assistance Assistance Required With: Laundry;Cleaning;Trans portation;Shopping;Anika f Care;Meals;Medication Management Prior Functional Level Comments: pt poor historian, per chart review patient is from [facility]. Patient reports using walker and does her own ADLs Baseline Cognition: Confused;Forgetful;Favio ented to self;Requires 24/ supervision Patient Report: agreeable to PT session CURRENT FUNCTIONAL STATUS: Most recent performance mobility performed during session in bold, other mobility completed during prior session and may no longer be correct or appropriate to complete. Current Functional Mobility Assist Level Additional Information Rolling Supine to Sit Maximal Assistance;Moderate Assistance Sit to Supine Scooting Moderate Assistance Sit to Stand Moderate Assistance;Additional Information cuing to slide LLE out, powering up with LEs, proper UE support Stand to Sit Moderate Assistance;Additional Information cuing to slide LLE out, proper UE support, assist with eccentric control Bed to Chair Moderate Assistance Bed To Chair Transfer Type: Stepping Bed To Chair Transfer Equipment: Gait Belt;Wheeled Walker Toilet/Commode Gait Moderate Assistance;Additional Information Gait Device: Wheeled Walker Gait Distance (feet): 4' cuing/assist with posture, balance, walker management, proper LE stepping Stairs Curb Step Car Transfer Blank caro indicate activity not attempted General Deviations/Observation s: Antalgic gait;Luz decreased;Difficulty changing direction/turning;Flex ed trunk posture;Non-functional gait speed;Shuffling Gait;Step length decreased;Improper distancing from assistive device Balance: Static Sitting;Dynamic Sitting;Static Standing;Dynamic Standing Static Sitting Balance: Good Patient able to maintain balance without handhold support, limited postural sway Dynamic Sitting Balance: Good Patient accepts moderate challenge, able to maintain balance while picking up object off floor Static Standing Balance: Fair Patient able to maintain balance with handhold support, may require occasional minimal assistance Dynamic Standing Balance: Fair Patient accepts minimal challenge, able to maintain (more content not included)... Normal [facility] Basic metabolic 2000 panelon 12-16-2021 Anion gap [Moles/Vol] 8 mmol/L Low 9-18 [facility] Comment on above: Order Comment: Speci men Type: BLOOD SPECIMENOrdering Facility: [facility] Address: [address] [address] Performed By: #### 2 4321-2 ####[facility]ORATORYCLIA [id number] [place] [address] [place] Calcium [Mass/Vol] 8.4 mg/dL Low 8.5-10.2 [facility] Comment on above: Order Comment: Speci men Type: BLOOD SPECIMENOrdering Facility: [facility] Address: [address] [address] Performed By: #### 2 4321-2 ####[facility]ORATORYCLIA [id number] [place] [address] [place] Chloride [Moles/Vol] 102 mmol/L Normal 97-105 [facility] Comment on above: Order Comment: Speci men Type: BLOOD SPECIMENOrdering Facility: [facility] Address: [address] [address] Performed By: #### 2 4321-2 ####[facility]ORATORYCLIA [id number] [address] STATES OF [facility] CO2 [Moles/Vol] 27 mmol/L Normal 22-30 [facility] Comment on above: Order Comment: Speci men Type: BLOOD SPECIMENOrdering Facility: [facility] Address: [address] [place] [address] Performed By: #### 2 4321-2 ####[facility]ITALCLIA [id number] [address] Creatinine [Mass/Vol] 0.80 mg/dL Normal 0.58-0.96 [facility] Comment on above: Order Comment: Speci men Type: BLOOD SPECIMENOrdering Facility: [facility] Address: [address] [place] [address] Performed By: #### 2 4321-2 ####[facility]ITALIA [id number] [address] ESTIMATED GLOMERULAR FILTRATION RATE 81 mL/min/1.73m??? Normal >=60 [facility] Comment on above: Order Comment: Speci men Type: BLOOD SPECIMENOrdering Facility: [facility] Address: [address] [place] [address] Result Comment: Jessa mated Glomerular Filtration Rate (eGFR) is calculated using the 2020 CKD-EPI creatinine equation. This equation utilizes serum creatinine, sex, and age as parameters. The creatinine assay has traceable calibration to isotope dilution-mass spectrometry. Refer to KDIGO guidelines for clinical interpretation. In patients with unstable renal function, e.g. those with acute kidney injury, the eGFR may not accurately reflect actual GFR. Performed By: #### 2 4321-2 ####[facility]ATORYCLIA [id number] [address] OF [facility] Glucose [Mass/Vol] 106 mg/dL High 74-99 [facility] Comment on above: Order Comment: Speci men Type: BLOOD SPECIMENOrdering Facility: [facility] Address: [address] [place] [address] Result Comment: The [place] [employer] (ADA) provides guidance for cutoff values for fasting glucose and random glucose. The ADA defines fasting as no caloric intake for at least 8 hours. Fasting plasma glucose results between 100 to 125 mg/dL indicate increased risk for diabetes (prediabetes). Fasting plasma glucose results greater than or equal to 126 mg/dL meet the criteria for diagnosis of diabetes. In the absence of unequivocal hyperglycemia, results should be confirmed by repeat testing. In a patient with classic symptoms of hyperglycemia or hyperglycemic crisis, random plasma glucose results greater than or equal to 200 mg/dL meet the criteria for diagnosis of diabetes. Reference: Standards of Medical Care in Diabetes 2016, [place] [employer]. Diabetes Care. 2016.39(Suppl 1). Performed By: #### 2 4321-2 ####[facility]ATORYCLIA [id number] [address] [place] Potassium [Moles/Vol] 3.8 mmol/L Normal 3.7-5.1 [facility] Comment on above: Order Comment: Speci men Type: BLOOD SPECIMENOrdering Facility: [facility] Address: [address] [address] Performed By: #### 2 4321-2 ####[facility]ORATORYCLIA [id number] [address] [place] [facility] Sodium [Moles/Vol] 137 mmol/L Normal 136-144 [facility] Comment on above: Order Comment: Speci men Type: BLOOD SPECIMENOrdering Facility: [facility] Address: [address] [address] Performed By: #### 2 4321-2 ####[facility]ATORYCLIA [id number] [place] [address] [place] Urea nitrogen [Mass/Vol] 11 mg/dL Normal 7-21 [facility] Comment on above: Order Comment: Speci men Type: BLOOD SPECIMENOrdering Facility: [facility] Address: [address] [address] Performed By: #### 2 4321-2 ####[facility]ATORYCLIA [id number] [address] OF [facility] CBC W Auto Differential pane l (Bld)on 12-16-2021 Basophils (Bld) [#/Vol] 0.04 10*3/uL Normal <0.11 [facility] Comment on above: Order Comment: Speci men Type: BLOOD SPECIMENOrdering Facility: [facility] Address: [address] [place] [address] Performed By: #### 5 7021-8 ####[facility]ATORYCLIA [id number] [address] Basophils/100 WBC (Bld) 0.4 % Normal [facility] Comment on above: Order Comment: Speci men Type: BLOOD SPECIMENOrdering Facility: [facility] Address: [address] [place] [address] Performed By: #### 5 7021-8 ####[facility]ATORYCLIA [id number] [address] Differential cell count method Nom (Bld) Auto Normal [facility] Comment on above: Order Comment: Speci men Type: BLOOD SPECIMENOrdering Facility: [facility] Address: [address] [place] [address] Performed By: #### 5 7021-8 ####[facility]ATORYCLIA [id number] [address] [place] Eosinophils (Bld) [#/Vol] 0.30 10*3/uL Normal <0.46 [facility] Comment on above: Order Comment: Speci men Type: BLOOD SPECIMENOrdering Facility: [facility] Address: [address] [place] [address] Performed By: #### 5 7021-8 ####[facility]ATORYCLIA [id number] [address] Eosinophils/100 WBC (Bld) 2.7 % Normal [facility] Comment on above: Order Comment: Speci men Type: BLOOD SPECIMENOrdering Facility: [facility] Address: [address] [place] [address] Performed By: #### 5 7021-8 ####[facility]ATORYCLIA [id number] [address] Erythrocyte distribution width (RBC) [Ratio] 13.5 % Normal 11.5-15.0 [facility] Comment on above: Order Comment: Speci men Type: BLOOD SPECIMENOrdering Facility: [facility] Address: [address] [place] [address] Performed By: #### 5 7021-8 ####[facility]ATORYCLIA [id number] [address] [place] Hematocrit (Bld) [Volume fraction] 28.9 % Low 36.0-46.0 [facility] Comment on above: Order Comment: Speci men Type: BLOOD SPECIMENOrdering Facility: [facility] Address: [address] [place] [address] Performed By: #### 5 7021-8 ####[facility]ATORYCLIA [id number] [address] OF [facility] Hemoglobin (Bld) [Mass/Vol] 9.0 g/dL Low 11.5-15.5 [facility] Comment on above: Order Comment: Speci men Type: BLOOD SPECIMENOrdering Facility: [facility] Address: [address] [place] [address] Performed By: #### 5 7021-8 ####[facility]ATORYCLIA [id number] [address] [place] Immature granulocytes (Bld) [#/Vol] 0.04 10*3/uL Normal <0.10 [facility] Comment on above: Order Comment: Speci men Type: BLOOD SPECIMENOrdering Facility: [facility] Address: [address] [place] [address] Performed By: #### 5 7021-8 ####[facility]ATORYCLIA [id number] [address] [place] Immature granulocytes/100 WBC (Bld) 0.4 % Normal [facility] Comment on above: Order Comment: Speci men Type: BLOOD SPECIMENOrdering Facility: [facility] Address: [address] [place] [address] Performed By: #### 5 7021-8 ####[facility]ATORYCLIA [id number] [address] [place] Lymphocytes (Bld) [#/Vol] 2.51 10*3/uL Normal 1.00-4.00 [facility] Comment on above: Order Comment: Speci men Type: BLOOD SPECIMENOrdering Facility: [facility] Address: [address] [place] [address] Performed By: #### 5 7021-8 ####[facility]ATORYCLIA [id number] [address] Lymphocytes/100 WBC (Bld) 22.9 % Normal [facility] Comment on above: Order Comment: Speci men Type: BLOOD SPECIMENOrdering Facility: [facility] Address: [address] [place] [address] Performed By: #### 5 7021-8 ####[facility]ATORYCLIA [id number] [address] [place] MCH (RBC) [Entitic mass] 29.4 pg Normal 26.0-34.0 [facility] Comment on above: Order Comment: Speci men Type: BLOOD SPECIMENOrdering Facility: [facility] Address: [address] [place] [address] Performed By: #### 5 7021-8 ####[facility]ORYCLIA [id number] [address] [place] MCHC (RBC) [Mass/Vol] 31.1 g/dL Normal 30.5-36.0 [facility] Comment on above: Order Comment: Speci men Type: BLOOD SPECIMENOrdering Facility: [facility] Address: [address] [place] [address] Performed By: #### 5 7021-8 ####[facility]ORYCLIA [id number] [address] [place] MCV (RBC) [Entitic vol] 94.4 fL Normal 80.0-100.0 [facility] Comment on above: Order Comment: Speci men Type: BLOOD SPECIMENOrdering Facility: [facility] Address: [address] [place] [address] Performed By: #### 5 7021-8 ####[facility]ATORYCLIA [id number] [place] [address] [place] Monocytes (Bld) [#/Vol] 1.67 10*3/uL High <0.87 [facility] Comment on above: Order Comment: Speci men Type: BLOOD SPECIMENOrdering Facility: [facility] Address: [address] [place] [address] Performed By: #### 5 7021-8 ####[facility]ORYCLIA [id number] [address] Monocytes/100 WBC (Bld) 15.2 % Normal [facility] Comment on above: Order Comment: Speci men Type: BLOOD SPECIMENOrdering Facility: [facility] Address: [address] [place] [address] Performed By: #### 5 7021-8 ####[facility]ORYCLIA [id number] [address] [place] Neutrophils (Bld) [#/Vol] 6.41 10*3/uL Normal 1.45-7.50 [facility] Comment on above: Order Comment: Speci men Type: BLOOD SPECIMENOrdering Facility: [facility] Address: [address] [place] [address] Performed By: #### 5 7021-8 ####[facility]ORYCLIA [id number] [address] Neutrophils/100 WBC (Bld) 58.4 % Normal [facility] Comment on above: Order Comment: Speci men Type: BLOOD SPECIMENOrdering Facility: [facility] Address: [address] [place] [address] Performed By: #### 5 7021-8 ####[facility]ATORYCLIA [id number] [address] Nucleated RBC (Bld) [#/Vol] 10*3/uL Normal <0.01 [facility] Comment on above: Order Comment: Speci men Type: BLOOD SPECIMENOrdering Facility: [facility] Address: [address] [place] [address] Performed By: #### 5 7021-8 ####[facility]ATORYCLIA [id number] [address] [place] Nucleated RBC/100 WBC (Bld) [Ratio] 0.0 /100 WBC Normal [facility] Comment on above: Order Comment: Speci men Type: BLOOD SPECIMENOrdering Facility: [facility] Address: [address] [place] [address] Performed By: #### 5 7021-8 ####[facility]ATORYCLIA [id number] [address] [place] Platelet mean volume (Bld) [Entitic vol] 9.9 fL Normal 9.0-12.7 [facility] Comment on above: Order Comment: Speci men Type: BLOOD SPECIMENOrdering Facility: [facility] Address: [address] [place] [address] Performed By: #### 5 7021-8 ####[facility]ATORYCLIA [id number] [address] [place] Platelets (Bld) [#/Vol] 264 10*3/uL Normal 150-400 [facility] Comment on above: Order Comment: Speci men Type: BLOOD SPECIMENOrdering Facility: [facility] Address: [address] [place] [address] Performed By: #### 5 7021-8 ####[facility]ORYCLIA [id number] [address] [place] RBC (Bld) [#/Vol] 3.06 10*6/uL Low 3.90-5.20 [facility] Comment on above: Order Comment: Speci men Type: BLOOD SPECIMENOrdering Facility: [facility] Address: [address] [place], [place] [address] Performed By: #### 5 7021-8 ####[facility]ATORYCLIA [id number] [address] WBC (Bld) [#/Vol] 10.97 10*3/uL Normal 3.70-11.00 [facility] Comment on above: Order Comment: Spec men Type: BLOOD SPECIMENOrdering Facility: [facility] Address: [address] [place], [place] [address] Performed By: #### 5 7021-8 ####[facility]ORATORYCLIA [id number] [address] THERAPY NTon 12-16-2021 THERAPY NT HNO ID: [id number] Author: Rae Garza, PT Service: Physical Therapy Author Type: Physical Therapist Type: Therapy (PT/OT/Speech/Resp) Filed: 12/16/2021 2:43 PM Note Text: Physical Therapy Evaluation SERVICE DATE: 12/16/2021 SERVICE TIME: 1325 to 1355 ROOM: [place] [address] Recommended Discharge Disposition: Subacute/SNF Recommended Discharge Disposition Due to: Patient requires daily, facility-based rehabilitation from at least one discipline due to:;decline in functional status requiring daily skilled care PT 6 Clicks Score: 11 Claribel Iqbal was seen for physical therapy this afternoon. She was able to get up and take a few steps to get up to the chair. The patient was assisted afterwards to do some basic hip strengthening exercises and reviewed her precautions. Precautions/Activity Restrictions: Weight Bearing Restrictions;Hip Precautions - Posterior Dislocation Isolation Type: None Extremity With Weight Bearing Restricted: Left Lower Extremity Left Lower Extremity Weight Bearing Status: WBAT Current Hospital Course: S/p L hemiarthroplasty. Patient also had a fall in hospital 12/15 with no injury. Reason for Hospital Admission: Fall Relevant Past Medical History: dementia, anxiety, depression, humeral fx Response to Therapy Interventions: Needs frequent redirection or re-instruction, Requires additional time to complete activities, Requires encouragement to complete activities Continue skilled needs due to: Functional mobility/skill impairments, Safety concerns Physical Therapy Problem List: Education Deficit;Safety Deficits;Decreased Activity Tolerance;Decreased Strength;Functional Mobility Impairment;Balance Impaired Treatment Interventions: Education;Strengthenin g;Functional Mobility Training;Balance Training Plan for next visit: Chair transfer training, Fall prevention, Exercise instruction/handout, Gait training Home Environment Patient Lives With: Facility Care Assistance Available: 24-Hour Equipment Owned: Rollator;Shower Chair Prior Functional Level: Required Assistance Assistance Required With: Laundry;Cleaning;Trans portation;Shopping;Anika f Care;Meals;Medication Management Prior Functional Level Comments: pt poor historian, per chart review patient is from [facility]. Patient reports using walker and does her own ADLs Baseline Cognition: Confused;Forgetful;Favio ented to self;Requires 24/ supervision Patient Report: Pleasant, fearfull repeatedly stating she has afraid of being scared CURRENT FUNCTIONAL STATUS: Most recent performance Current Functional Mobility Assist Level Additional Information Rolling Supine to Sit Maximal Assistance Sit to Supine Scooting Sit to Stand Moderate Assistance Stand to Sit Moderate Assistance Bed to Chair Toilet/Commode Gait Moderate Assistance Gait Device: Wheeled Walker Gait Distance (feet): 4 Stairs Curb Step Car Transfer Blank caro indicate activity not attempted General Deviations/Observation s: Luz decreased;Difficulty changing direction/turning;Anta lgic gait;UE weight bearing on assistive device excessive;Improper distancing from assistive device;Visual scanning/environmental awareness decreased Range of Motion: WFL Strength: Strength Limitation Comments Strength Limitation Comments: Left lower extremity limited due to pain Balance: Static Sitting;Dynamic Sitting;Static Standing;Dynamic Standing Static Sitting Balance: Good Patient able to maintain balance without handhold support, limited postural sway Dynamic Sitting Balance: Good Patient accepts moderate challenge, able to maintain balance while picking up object off floor Static Standing Balance: Fair Patient able to maintain balance with handhold support, may require occasional minimal assistance Dynamic Standing Balance: Fair Patient accepts minimal challenge, able to maintain balance while turning head/trunk JH-HLM: 4: Move to chair / commode Learning/Educational Needs: Functional Activities/Mobility Goals for Plan of Care: Patient /Caregiver Goals: Go Home Able to perform HEP with: Independent Transfer supine to/from sit with: Independent Transfer sit to/from stand with: Independent Ambulate with: Independent Distance: 45 Device: Wheeled Walker Rehab Potential: Excellent Patient will be discontinued from Physical Therapy when no further skilled needs are identified in this setting. PLAN: PT Frequency: 5 times per week (3-5) Plan of Care developed with: Patient TREATMENT INTERVENTIONS: Therapy Diagnosis: Muscle Weakness (generalized);Abnormal ities of gait and mobility-other Interventions Provided: Evaluation;Gait Training (83340) $ Evaluation-High (60472) Billed Units: 1 unit Gait Training (93211) Treatment Minutes: 12 $ Gait Training (45406) Billed Units: 1 unit Educated on sit to stand not to pull on walker as to sit to find midline balance. Assisted to move the walker and take steps (more content not included)... Normal [facility] THERAPY NT HNO ID: [id number] Author: Jeanette Dale OTR/L Service: Occupational Therapy Author Type: Occupational Therapist Type: Therapy (PT/OT/Speech/Resp) Filed: 12/16/2021 2:33 PM Note Text: Occupational Therapy Evaluation SERVICE DATE: 12/16/2021 SERVICE TIME: 1310 to 1330 ROOM: [id number] Recommended Discharge Disposition: Subacute/SNF Recommended Discharge Disposition Due to: Patient requires daily, facility-based rehabilitation from at least one discipline due to:;decline in functional status requiring daily skilled care OT 6 Clicks Score: 15 Precautions/Activity Restrictions: Weight Bearing Restrictions;Hip Precautions - Posterior Dislocation Isolation Type: None Extremity With Weight Bearing Restricted: Left Lower Extremity Left Lower Extremity Weight Bearing Status: WBAT Current Hospital Course: S/p L hemiarthroplasty. Patient also had a fall in hospital 12/15 with no injury. Reason for Hospital Admission: Fall Relevant Past Medical History: dementia, anxiety, depression, humeral fx Response to Therapy Interventions: Good participation in activities, Cognitive deficits, Needs frequent redirection or re-instruction Continue skilled needs due to: Functional impairment, Safety concerns, Cognitive deficits Occupational Therapy Problem List: Cognitive Deficit;Safety Deficits;Impaired Self Care;Decreased Activity Tolerance;Decreased Strength;Functional Mobility Impairment;Balance Impaired Cognition/Communicatio n Deficits Orientation Deficits: Confused, Not oriented to Place, Not oriented to Time, Not oriented to Situation Responsiveness: Alert, Awake Follows Commands: 1-step Commands, Cueing Needed Cueing to Follow Commands: Moderate Attention Deficits: Distractible Executive Function Deficits: Safety Awareness, Insight to Deficits, Judgement Judgement Deficit: Moderate impairment Insight to Deficits: Moderate impairment Safety Awareness Deficit: Moderate impairment Cognitive Clinical Tests and Screens: 4AT Screening 4AT Screening Assess alertness (ask patient to state their name and address): Normal (fully alert, but not agitated, throughout assessment) Ask patient: age, date of , current year, and current location: 2 or more mistakes / untestable / refuse to answer Ask patient to "tell me the months of the year backwards order, starting with January": Untestable (cannot start due to unwell, drowsy, or inattentive) Acute change or fluctuating mental status: No 4AT Score: (!) 4 Delirium Positive/Negative: Positive Treatment Interventions: Education;Strengthenin g;Balance Training;Functional Mobility Training;Self Care / Home Management Home Environment Patient Lives With: Facility Care Assistance Available: 24-Hour Prior Functional Level: Required Assistance Assistance Required With: Laundry;Cleaning;Trans portation;Shopping;Anika f Care;Meals;Medication Management Prior Functional Level Comments: pt poor historian, per chart review patient is from [facility]. Patient reports using walker and does her own ADLs Baseline Cognition: Confused;Forgetful;Favio ented to self;Requires 24/7 supervision Patient Report: pt pleasant and agreeable to OT CURRENT FUNCTIONAL STATUS: Most recent performance Current Activities of Daily Living Assist Level Additional Information Feeding Set Up Grooming Minimal Assistance Bathing Upper Body Minimal Assistance Bathing Lower Body Moderate Assistance Dressing Upper Body Minimal Assistance Dressing Lower Body Maximal Assistance Toileting Moderate Assistance Functional Mobility Assist Level Additional Information Rolling Supine to Sit Maximal Assistance (x2) Sit to Supine Scooting Sit to Stand Moderate Assistance Stand to Sit Moderate Assistance Bed to Chair Moderate Assistance Gait Belt;Wheeled Walker Toilet/Commode Shower Functional Mobility Moderate Assistance Wheeled Walker Blank caro indicate activity not attempted Range of Motion: WFL Strength: Strength Limitation Comments Strength Limitation Comments: 4/5 throughout Balance: Dynamic Standing;Dynamic Sitting Dynamic Sitting Balance: Fair Patient accepts minimal challenge, able to maintain balance while turning head/trunk Dynamic Standing Balance: Poor Patient unable to accept challenge or move without loss of balance Learning/Educational Needs: Discharge Plan;Plan of Care;Functional Activities/Mobility;Eq uipment;Precautions;Se lf Care;Safety Goals for Plan of Care: Patient/Caregiver Goals: Improve physical, mental and/or social well-being;Reduce ADL/IADL barriers Grooming with: Contact Guard Assistance (sink side or standing) Upper Body Bathing with: Contact Guard Assistance Upper Body Dressing with: Contact Guard Assistance Lower Body Bathing with: Moderate Assistance Lower Body Dressing with: Moderate Assistance (with AE) Toilet Hygiene with: Minimal Assistance Chair Transfer with: Minimal Assistance Toilet Trans (more content not included)... Normal [facility] Basic metabolic 2000 panelon 12-15-2021 Anion gap [Moles/Vol] 14 mmol/L Normal -18 [facility] Comment on above: Order Comment: Speci men Type: BLOOD SPECIMEN Ordering Facility: [facility] Address: [address] [place] [address] Performed By: #### T SCR #### [facility] CLIA [id number] 1 [place] [address] [place] Calcium [Mass/Vol] 8.1 mg/dL Low 8.5-10.2 [facility] Comment on above: Order Comment: Speci men Type: BLOOD SPECIMEN Ordering Facility: [facility] Address: [address] [place] [address] Performed By: #### T SCR #### [facility] CLIA [id number] 1 [place] [address] [place] Chloride [Moles/Vol] 100 mmol/L Normal 97-105 [facility] Comment on above: Order Comment: Speci men Type: BLOOD SPECIMEN Ordering Facility: [facility] Address: [address] [place] [address] Performed By: #### T SCR #### [facility] CLIA [id number] 1 [place] [address] [place] CO2 [Moles/Vol] 21 mmol/L Low 22-30 [facility] Comment on above: Order Comment: Speci men Type: BLOOD SPECIMEN Ordering Facility: [facility] Address: [address] [place] [address] Performed By: #### T SCR #### [facility] CLIA [id number] [address] STATES OF [facility] Creatinine [Mass/Vol] 0.80 mg/dL Normal 0.58-0.96 [facility] Comment on above: Order Comment: Kinsey herrera Type: BLOOD SPECIMEN Ordering Facility: [facility] Address: [address] [place] [address] Performed By: #### T SCR #### [facility] CLIA [id number] [address] OF [facility] ESTIMATED GLOMERULAR FILTRATION RATE 81 mL/min/1.73m??? Normal >=60 [facility] Comment on above: Order Comment: Kinsey herrera Type: BLOOD SPECIMEN Ordering Facility: [facility] Address: [address] [place] [address] Result Comment: Jessa mated Glomerular Filtration Rate (eGFR) is calculated using the 2020 CKD-EPI creatinine equation. This equation utilizes serum creatinine, sex, and age as parameters. The creatinine assay has traceable calibration to isotope dilution-mass spectrometry. Refer to KDIGO guidelines for clinical interpretation. In patients with unstable renal function, e.g. those with acute kidney injury, the eGFR may not accurately reflect actual GFR. Performed By: #### T SCR #### [facility] CLIA [id number] [address] Glucose [Mass/Vol] 122 mg/dL High 74-99 [facility] Comment on above: Order Comment: Kinsey herrera Type: BLOOD SPECIMEN Ordering Facility: [facility] Address: [address] [place] [address] Result Comment: The [place] [employer] Association (ADA) provides guidance for cutoff values for fasting glucose and random glucose. The ADA defines fasting as no caloric intake for at least 8 hours. Fasting plasma glucose results between 100 to 125 mg/dL indicate increased risk for diabetes (prediabetes). Fasting plasma glucose results greater than or equal to 126 mg/dL meet the criteria for diagnosis of diabetes. In the absence of unequivocal hyperglycemia, results should be confirmed by repeat testing. In a patient with classic symptoms of hyperglycemia or hyperglycemic crisis, random plasma glucose results greater than or equal to 200 mg/dL meet the criteria for diagnosis of diabetes. Reference: Standards of Medical Care in Diabetes 2016, [place] [employer]. Diabetes Care. 2016.39(Suppl 1). Performed By: #### T SCR #### [facility] CLIA [id number] [address] Potassium [Moles/Vol] 4.8 mmol/L Normal 3.7-5.1 [facility] Comment on above: Order Comment: Speci men Type: BLOOD SPECIMEN Ordering Facility: [facility] Address: [address] [place] [address] Performed By: #### T SCR #### [facility] CLIA [id number] [address] Sodium [Moles/Vol] 135 mmol/L Low 136-144 [facility] Comment on above: Order Comment: Speci men Type: BLOOD SPECIMEN Ordering Facility: [facility] Address: [address] [place] [address] Performed By: #### T SCR #### [facility] CLIA [id number] [address] Urea nitrogen [Mass/Vol] 12 mg/dL Normal 7-21 [facility] Comment on above: Order Comment: Speci men Type: BLOOD SPECIMEN Ordering Facility: [facility] Address: [address] [place] [address] Performed By: #### T SCR #### [facility] CLIA [id number] [address] STATES OF [facility] CBC W Auto Differential pane l (Bld)on 12-15-2021 Basophils (Bld) [#/Vol] 0.00 10*3/uL Normal <0.11 [facility] Comment on above: Order Comment: Speci men Type: BLOOD SPECIMENOrdering Facility: [facility] Address: [address] [place] [address] Performed By: #### 5 7021-8 ####[facility] [id number] [address] Basophils/100 WBC (Bld) 0.0 % Normal [facility] Comment on above: Order Comment: Speci men Type: BLOOD SPECIMENOrdering Facility: [facility] Address: [address] [place] [address] Performed By: #### 5 7021-8 ####[facility]ORY[facility] [id number] [address] OF [facility] Differential cell count method Nom (Bld) Manual Normal [facility] Comment on above: Order Comment: Speci men Type: BLOOD SPECIMENOrdering Facility: [facility] Address: [address] [place] [address] Performed By: #### 5 7021-8 ####[facility]ORYCLIA [id number] [address] [place] Eosinophils (Bld) [#/Vol] 0.13 10*3/uL Normal <0.46 [facility] Comment on above: Order Comment: Speci men Type: BLOOD SPECIMENOrdering Facility: [facility] Address: [address] [place] [address] Performed By: #### 5 7021-8 ####[facility]ORYCLIA [id number] [address] Eosinophils/100 WBC (Bld) 1.0 % Normal [facility] Comment on above: Order Comment: Speci men Type: BLOOD SPECIMENOrdering Facility: [facility] Address: [address] [place] [address] Performed By: #### 5 7021-8 ####[facility]ORYCLIA [id number] [address] [place] Erythrocyte distribution width (RBC) [Ratio] 13.5 % Normal 11.5-15.0 [facility] Comment on above: Order Comment: Speci men Type: BLOOD SPECIMENOrdering Facility: [facility] Address: [address] [place] [address] Performed By: #### 5 7021-8 ####[facility]ORATORYCLIA [id number] [address] OF [facility] Hematocrit (Bld) [Volume fraction] 32.9 % Low 36.0-46.0 [facility] Comment on above: Order Comment: Speci men Type: BLOOD SPECIMENOrdering Facility: [facility] Address: [address] [place] [address] Performed By: #### 5 7021-8 ####[facility]ORYCLIA [id number] [address] [place] Hemoglobin (Bld) [Mass/Vol] 10.1 g/dL Low 11.5-15.5 [facility] Comment on above: Order Comment: Speci men Type: BLOOD SPECIMENOrdering Facility: [facility] Address: [address] [place] [address] Performed By: #### 5 7021-8 ####[facility]ORYCLIA [id number] [address] [place] Lymphocytes (Bld) [#/Vol] 3.01 10*3/uL Normal 1.00-4.00 [facility] Comment on above: Order Comment: Speci men Type: BLOOD SPECIMENOrdering Facility: [facility] Address: [address] [place] [address] Performed By: #### 5 7021-8 ####[facility]ORYCLIA [id number] [address] STATES [facility] Lymphocytes/100 WBC (Bld) 9.0 % Normal [facility] Comment on above: Order Comment: Speci men Type: BLOOD SPECIMENOrdering Facility: [facility] Address: [address] [place] [address] Performed By: #### 5 7021-8 ####[facility]ORYCLIA [id number] [address] MCH (RBC) [Entitic mass] 29.4 pg Normal 26.0-34.0 [facility] Comment on above: Order Comment: Speci men Type: BLOOD SPECIMENOrdering Facility: [facility] Address: [address] [place] [address] Performed By: #### 5 7021-8 ####[facility]ORYCLIA [id number] [address] STATES [facility] MCHC (RBC) [Mass/Vol] 30.7 g/dL Normal 30.5-36.0 [facility] Comment on above: Order Comment: Speci men Type: BLOOD SPECIMENOrdering Facility: [facility] Address: [address] [place] [address] Performed By: #### 5 7021-8 ####[facility]ORYCLIA [id number] [address] STATES OF [facility] MCV (RBC) [Entitic vol] 95.6 fL Normal 80.0-100.0 [facility] Comment on above: Order Comment: Speci men Type: BLOOD SPECIMENOrdering Facility: [facility] Address: [address] [place] [address] Performed By: #### 5 7021-8 ####[facility]ORYCLIA [id number] [address] [place] Monocytes (Bld) [#/Vol] 1.05 10*3/uL High <0.87 [facility] Comment on above: Order Comment: Speci men Type: BLOOD SPECIMENOrdering Facility: [facility] Address: [address] [place] [address] Performed By: #### 5 7021-8 ####[facility]ORYCLIA [id number] [address] Monocytes/100 WBC (Bld) 8.0 % Normal [facility] Comment on above: Order Comment: Speci men Type: BLOOD SPECIMENOrdering Facility: [facility] Address: [address] [place] [address] Performed By: #### 5 7021-8 ####[facility]ATORYCLIA [id number] [address] [place] Neutrophils (Bld) [#/Vol] 8.90 10*3/uL High 1.45-7.50 [facility] Comment on above: Order Comment: Speci men Type: BLOOD SPECIMENOrdering Facility: [facility] Address: [address] [place] [address] Performed By: #### 5 7021-8 ####[facility]ATORYCLIA [id number] [address] Neutrophils/100 WBC (Bld) 68.0 % Normal [facility] Comment on above: Order Comment: Speci men Type: BLOOD SPECIMENOrdering Facility: [facility] Address: [address] [place] [address] Performed By: #### 5 7021-8 ####[facility]ORYCLIA [id number] [address] [place] Nucleated RBC (Bld) [#/Vol] 10*3/uL Normal <0.01 [facility] Comment on above: Order Comment: Speci men Type: BLOOD SPECIMENOrdering Facility: [facility] Address: [address] [place] [address] Performed By: #### 5 7021-8 ####[facility]ATORYCLIA [id number] [address] Nucleated RBC/100 WBC (Bld) [Ratio] 0.0 /100 WBC Normal [facility] Comment on above: Order Comment: Speci men Type: BLOOD SPECIMENOrdering Facility: [facility] Address: [address] [place] [address] Performed By: #### 5 7021-8 ####[facility]ATORYCLIA [id number] [address] [place] Platelet mean volume (Bld) [Entitic vol] 9.9 fL Normal 9.0-12.7 [facility] Comment on above: Order Comment: Speci men Type: BLOOD SPECIMENOrdering Facility: [facility] Address: [address] [place] [address] Performed By: #### 5 7021-8 ####[facility]ATORYCLIA [id number] [address] [place] Platelets (Bld) [#/Vol] 308 10*3/uL Normal 150-400 [facility] Comment on above: Order Comment: Speci men Type: BLOOD SPECIMENOrdering Facility: [facility] Address: [address] [place] [address] Performed By: #### 5 7021-8 ####[facility]ORYCLIA [id number] [address] [place] Platelets Estimate (Bld) [#/Vol] Adequate Normal [facility] Comment on above: Order Comment: Speci men Type: BLOOD SPECIMENOrdering Facility: [facility] Address: [address] [place] [address] Performed By: #### 5 7021-8 ####[facility]ATORYCLIA [id number] [address] OF [facility] RBC (Bld) [#/Vol] 3.44 10*6/uL Low 3.90-5.20 [facility] Comment on above: Order Comment: Speci men Type: BLOOD SPECIMENOrdering Facility: [facility] Address: [address] [place] [address] Performed By: #### 5 7021-8 ####[facility]ORYCLIA [id number] [address] [place] CELL MORPH Normal Normal [facility] Comment on above: Order Comment: Speci men Type: BLOOD SPECIMENOrdering Facility: [facility] Address: [address] [place] [address] Performed By: #### 5 7021-8 ####[facility]ORYCLIA [id number] [address] V[place] lymphocytes/100 WBC (Bld) 14.0 % Normal [facility] Comment on above: Order Comment: Speci men Type: BLOOD SPECIMENOrdering Facility: [facility] Address: [address] [place] [address] Performed By: #### 5 7021-8 ####[facility]ORATORYCLIA [id number] [place] [address] [place] WBC (Bld) [#/Vol] 13.09 10*3/uL High 3.70-11.00 [facility] Comment on above: Order Comment: Speci men Type: BLOOD SPECIMENOrdering Facility: [facility] Address: [facility] [place] [id number] Performed By: #### 5 7021-8 ####[facility]ORATORYCLIA [id number] [place] [address] [facility] NURSING PROGon 12-15-2021 NURSING PROG HNO ID: [id number] Author: Taniya Jenkins RN Service: Nursing Author Type: Registered Nurse Type: Nursing Progress Note Filed: 12/15/2021 2:01 PM Note Text: Summary: s/p fall Updated 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 [facility] NURSING PROG HNO ID: [id number] Author: Taniya Jenkins RN Service: Nursing Author Type: Registered Nurse Type: Nursing Progress Note Filed: 12/15/2021 10:14 AM Note Text: Post Fall Assessment Claribel Stoll [id number] Witnessed: No How did fall occur: Getting out of bed/chair Location: Patient room Contributing factors: confused/disoriented Brief factual description: (*Document vital signs, neuro checks, blood sugars in the appropriate flow sheet.) Initial Physical Assessment Injury: No Patient hit head: No Immediate actions taken: No Action Name of LIP notified: Sound and ortho Notify family as appropriate: Son Post fall interventions: Bed Alarm On This note was completed by:Taniya Jenkins patient has no complaints.. [facility] ALLIED HEALTHon 12-14-2021 ALLIED HEALTH HNO ID: [id number] Author: RT Isela(Emily) Service: Radiology Author Type: Technologist Type: [facility] Filed: 12/14/2021 4:45 PM Note Text: Radiology Service Progress Note PATIENT NAME: Claribel Stoll DATE OF SERVICE: December 14, 2021 TIME: 4:44 PM PATIENT IDENTITY VERIFICATION COMPLETED USING TWO (2) IDENTIFIERS: Name and Date of confirmed by patient verbally and Name and Date of confirmed by identification band. FALL SCREENING: Has the patient had 2 falls in the last year or 1 fall with injury or currently using an Ambulatory Assistive Device (Walker, Cane, Wheelchair, Crutches, etc.)? Inpatient: Screened on floor PATIENT GENDER DATA: Female. status: : No status: NO. PATIENT RELEVANT IMPLANT DATA REVIEWED: Not Applicable RADIOLOGY DEPARTMENT: General X-ray: Exam(s) Completed: Pelvis X-Ray: Pelvis General AP PERIPHERAL IV DATA: Not applicable SIGNED BY: RT Amadou(R) December 14, 2021 4:44 PM [facility] HNO ID: [id number] Author: RT Herve(R) Service: Radiology Author Type: Technologist Type: [facility] Filed: 12/14/2021 2:09 PM Note Text: Radiology Service Progress Note PATIENT NAME: Claribel Stoll DATE OF SERVICE: December 14, 2021 TIME: 2:09 PM PATIENT IDENTITY VERIFICATION COMPLETED USING TWO (2) IDENTIFIERS: Name and Date of obtained from nurse in O.R. . FALL SCREENING: Has the patient had 2 falls in the last year or 1 fall with injury or currently using an Ambulatory Assistive Device (Walker, Cane, Wheelchair, Crutches, etc.)? Inpatient: Screened on floor PATIENT GENDER DATA: Female. status: : No status: NO. PATIENT RELEVANT IMPLANT DATA REVIEWED: Not Applicable RADIOLOGY DEPARTMENT: Surgical X-Ray: Intraoperative Left Hip 2V PERIPHERAL IV DATA: Not applicable SIGNED BY: RT Herve(R) December 14, 2021 2:09 PM [facility] HNO ID: [id number] Author: RT Sahara(R) Service: Radiology Author Type: Technologist Type: [facility] Filed: 12/13/2021 10:47 PM Note Text: Radiology Service Progress Note PATIENT NAME: Claribel Stoll DATE OF SERVICE: December 13, 2021 TIME: 10:47 PM PATIENT IDENTITY VERIFICATION COMPLETED USING TWO (2) IDENTIFIERS: Name and Date of confirmed by identification band. FALL SCREENING: Has the patient had 2 falls in the last year or 1 fall with injury or currently using an Ambulatory Assistive Device (Walker, Cane, Wheelchair, Crutches, etc.)? Emergency Room Patient: Screened in ED PATIENT GENDER DATA: Female. status: : No status: NO. PATIENT RELEVANT IMPLANT DATA REVIEWED: Not Applicable RADIOLOGY DEPARTMENT: General X-ray: Exam(s) Completed: Lower Extremity X-Ray(s): Femur, Left PERIPHERAL IV DATA: Not applicable SIGNED BY: RT Sahara(R) December 13, 2021 10:47 PM Normal [facility] ANES POSTPROC EVALon 022 ANES POSTPROC EVAL HNO ID: [id number] Author: Ted Mckeon DO Service: Anesthesiology Author Type: Physician Type: Anesthesia Postprocedure Evaluation Filed: 12/14/2021 6:55 PM Note Text: POST ANESTHESIA EVALUATION NOTE : 1955 Procedure Summary Date: 12/14/21 Room / Location: [place] OR / [facility] OR Anesthesia Start: 1222 Anesthesia Stop: 1617 Procedures: PERCUTANEOUS PINNING HIP (Left: Hip) HEMIARTHROPLASTY REPLACE JOINT PARTIAL HIP (Left) Diagnosis: Closed displaced fracture of left femoral neck (HCC) (Closed displaced fracture of left femoral neck (HCC) [S72.002A]) Surgeons: Yasmany Roman MD Responsible Provider: Ted Mckeon DO Anesthesia Type: general ASA Status: 3 Anesthesia Type: general Airway Type: LMA Last Vitals Vitals Value Taken Time BP 101/64 12/14/21 1746 Temp 36.4 ?C (97.5 ?F) 12/14/21 1700 HR SpO2 97 12/14/21 1755 Resp 12 12/14/21 1755 SpO2 96 % 12/14/21 1755 Vitals shown include unvalidated device data. Post Anesthesia Patient Status Anticipated Disposition: inpatient floor planned admission. Neurological Status: aware and responsive. Pulmonary Status: breathing comfortably on supplemental oxygen Airway Control: returned to baseline unsupported. Cardiovascular Status: stable. Pain Management: clinically adequate - multimodal analgesia pain management approach Postoperative Hydration: acceptable. Intraoperative Events: no significant anesthesia events Post Operative Nausea/Vomiting Status: no significant post operative nausea or vomiting Anesthetic Observations: Recommendation: further care per PACU/ICU/floor team. Anesthesia Observations No Documentation SIGNATURE: Ted Mckeon DO PATIENT NAME: Claribel Stoll DATE: December 14, 2021 TIME: 6:54 PM CSN: [id number] [facility] ANES PRE-OPon 12-14-2021 ANES PRE-OP HNO ID: [id number] Author: Ted Mckeon DO Service: Anesthesiology Author Type: Physician Type: Anesthesia Preprocedure Evaluation Filed: 12/14/2021 11:54 AM Note Text: ANESTHESIOLOGY DAY OF SURGERY NOTE : 1955 Procedure Information Date/Time: 12/14/211124 Procedure: HEMIARTHROPLASTY REPLACE JOINT PARTIAL HIP (Left: Hip) Location: [place] OR 08 / [place] OR Surgeons: Yasmany Roman MD Estimated body mass index is 24.96 kg/m? as calculated from the following: Height as of this encounter: 165.1 cm (5' 5"). Weight as of this encounter: 68 kg (150 lb). Most recent hematocrit and potassium results: Hematocrit 37.4 12/14/2021 Potassium 3.9 12/13/2021 Relevant Problems Hematology (+) Macrocytic anemia Musculoskeletal (+) Closed displaced fracture of left femoral neck (HCC) Psychiatry (+) Dementia (HCC) I - PHYSICAL EVALUATION AIRWAY Patient intubated: No. Tracheostomy tube not present Mallampati: II. TM distance: >3 FB. Neck ROM: full ROM without neurological symptoms. Mouth opening: adequate. Short neck: no. Thick neck: no DENTAL Dental findings: teeth intact and poor dentition. Additional exam findings: yes. CARDIOVASCULAR Normal cardiovascular observations. PULMONARY Normal pulmonary observations. II - ANESTHESIA PLAN ASA Score: 3 Anesthetic Plan: general Airway type: LMA NPO Status: adequate Monitoring plan: standard ASA.Anesthetic plan additional comments: Severe dementia. Unable to consent for PNB. Postoperative analgesic plan: parenteral or oral opioids and multimodal analgesia. Informed Consent Anesthetic risks, benefits, alternatives, personnel and consent discussed: yes. Patient / Responsible [employer] agrees to proceed: yes Patient / Surrogate agrees to blood products: blood products not planned Vitals Value Taken Time BP 154/86 12/14/21 1118 Pulse 85 12/14/21 1118 Resp 18 12/14/21 1118 Temp 36.2 ?C (97.2 ?F) 12/14/21 1118 SpO2 97 % 12/14/21 1118 Facility-Administered Medications as of 12/14/2021 Medication Dose Route Frequency - sodium chloride 0.9 % (flush) 3-5 mL (BD POSIFLUSH) 3-5 mL INTRAVENOUS q 12 H - NaCl 0.9% iv flush bag 20 mL INTRAVENOUS PRN - lactated ringers iv infusion 75 mL/hr INTRAVENOUS CONTINUOUS - morphine 2 mg injection 2 mg INTRAVENOUS q 2 H PRN - ondansetron (PF) 4 mg injection (ZOFRAN) 4 mg INTRAVENOUS q 6 H PRN - melatonin 3 mg tab(s) 3 mg ORAL AT BEDTIME PRN - [] morphine 2 mg injection 2 mg INTRAVENOUS ONCE - [COMPLETED] acetaminophen 650 mg tab(s) (TYLENOL) 650 mg ORAL ONCE Outpatient Medications as of 12/14/2021 Medication Sig - silver sulfADIAZINE (SILVADENE,THERMAZENE) 1 % cream Apply 1 application to affected area twice daily. I have interviewed and examined the patient. I have reviewed the medical record and/or the pre-anesthesia evaluation, pertinent labs, and test results. This contains updated information obtained within 48 hours of Surgery/Procedure. SIGNATURE: Ted Mckeon DO PATIENT NAME: Claribel Stoll DATE: December 14, 2021 TIME: 11:52 AM CSN: [id number] [facility] BRIEF OP NOTon 12-14-2021 BRIEF OP NOT HNO ID: [id number] Author: Zach Heart MD Service: Orthopaedic Pediatrics Author Type: Resident Type: Brief Op Note Filed: 12/14/2021 4:03 PM Note Text: ORTHO BRIEF OPERATIVE REPORT PATIENT NAME: Claribel Stoll LOG ID: [id number] Surgery/Procedure Date: 12/14/2021 Incision/Procedure Start Time: 1:03 PM Incision Close/Procedure End Time: 3:52 PM Surgeon(s)/Procedurali st(s) and Axle Polisher(s): Surgeon(s) and Role: * Yasmany Roman MD - Primary * Zach Heart MD - Resident - Assisting * Fatimah Simon MD - Resident - Assisting No Additional Staff Procedure(s): hemiarthroplasty of L hip fracture Anesthesia: General Pre-Op/Pre-Procedure Diagnosis: Closed displaced fracture of left femoral neck (HCC) [S72.002A] Post-Op/Post-Procedure Diagnosis: Closed displaced fracture of left femoral neck (HCC) [S72.002A] Implant: * No implants in log * Bearing Surface: Fixed Fixation: Cementless Fluids: per anesthesia Estimated Blood Loss: per anesthesia Shelley: None Specimens: None Drains: None Findings: See full operative report Complications: None Special medications: 2 g Ancef Participation in Procedure: I/primary surgeon/proceduralist performed the procedure with assistance. Post op plan: -Pain control -Weight Bearing As Tolerated LLE -Dressing management - soft dressing, mepilex -regular diet -PT/OT -DVT ppx: 325 mg aspirin bid -Shelely: avoid, may straight cath -Post op Abx - ancef -Post op xray -D/C planning: home vs snf -Follow up: With Dr. Roman in 10-14 days Zach Heart MD PGY-5 December 14, 2021 4:02 PM Pager: [phone] Normal [facility] Basic metabolic 2000 panelon 12-14-2021 Anion gap [Moles/Vol] 11 mmol/L Normal 9-18 [facility] Comment on above: Order Comment: Speci men Type: BLOOD SPECIMENOrdering Facility: [facility] Address: [address] [place] [address] Performed By: #### 2 4321-2, 33528-5, 07254-0 ####[facility] LABORATORYCLIA [id number] [place] [address] [place] Calcium [Mass/Vol] 8.6 mg/dL Normal 8.5-10.2 [facility] Comment on above: Order Comment: Speci men Type: BLOOD SPECIMENOrdering Facility: [facility] Address: [address] [place] [address] Performed By: #### 2 4321-2, 57230-8, 41577-8 ####[facility]ORATORYCLIA [id number] [place] [address] [place] Chloride [Moles/Vol] 102 mmol/L Normal 97-105 [facility] Comment on above: Order Comment: Speci men Type: BLOOD SPECIMENOrdering Facility: [facility] Address: [address] [place] [address] Performed By: #### 2 4321-2, 64048-9, 44641-2 ####[facility]ORATORYCLIA [id number] [place] [address] [place] CO2 [Moles/Vol] 24 mmol/L Normal 22-30 [facility] Comment on above: Order Comment: Speci men Type: BLOOD SPECIMENOrdering Facility: [facility] Address: [address] [place] [address] Performed By: #### 2 4321-2, 43109-9, 61325-2 ####[facility]ORATORYCLIA [id number] [place] [address] [place] Creatinine [Mass/Vol] 0.66 mg/dL Normal 0.58-0.96 [facility] Comment on above: Order Comment: Speci men Type: BLOOD SPECIMENOrdering Facility: [facility] Address: [address] [place] [address] Performed By: #### 2 4321-2, , 51654-7 ####[facility]ITALCLIA [id number] [address] [place] ESTIMATED GLOMERULAR FILTRATION RATE 96 mL/min/1.73m??? Normal >=60 [facility] Comment on above: Order Comment: Speci men Type: BLOOD SPECIMENOrdering Facility: [facility] Address: [address] [place] [address] Result Comment: Jessa mated Glomerular Filtration Rate (eGFR) is calculated using the 2020 CKD-EPI creatinine equation. This equation utilizes serum creatinine, sex, and age as parameters. The creatinine assay has traceable calibration to isotope dilution-mass spectrometry. Refer to KDIGO guidelines for clinical interpretation. In patients with unstable renal function, e.g. those with acute kidney injury, the eGFR may not accurately reflect actual GFR. Performed By: #### 2 4321-2, 32277-5, 68655-6 ####[facility]ORATORYCLIA [id number] [place] [address] [place] Glucose [Mass/Vol] 105 mg/dL High 74-99 [facility] Comment on above: Order Comment: Speci men Type: BLOOD SPECIMENOrdering Facility: [facility] Address: [address] [place] [address] Result Comment: The [place] Diabetes Association (ADA) provides guidance for cutoff values for fasting glucose and random glucose. The ADA defines fasting as no caloric intake for at least 8 hours. Fasting plasma glucose results between 100 to 125 mg/dL indicate increased risk for diabetes (prediabetes). Fasting plasma glucose results greater than or equal to 126 mg/dL meet the criteria for diagnosis of diabetes. In the absence of unequivocal hyperglycemia, results should be confirmed by repeat testing. In a patient with classic symptoms of hyperglycemia or hyperglycemic crisis, random plasma glucose results greater than or equal to 200 mg/dL meet the criteria for diagnosis of diabetes. Reference: Standards of Medical Care in Diabetes 2016, [place] [employer] Association. Diabetes Care. 2016.39(Suppl 1). Performed By: #### 2 4321-2, 60885-2, 73902-0 ####[facility]ORATORYCLIA [id number] [place] [address] [place] Potassium [Moles/Vol] Normal [facility] Comment on above: Order Comment: Kinsey herrera Type: BLOOD SPECIMENOrdering Facility: [facility] Address: [address] [place] [address] Result Comment: Unab le to assay due to interference from hemolysis. Suggest reorder as clinically indicated. Performed By: #### 2 4321-2, , 02973-2 ####[facility]ORATORYCLIA [id number] [place] [address] [place] Sodium [Moles/Vol] 137 mmol/L Normal 136-144 [facility] Comment on above: Order Comment: Kinsey [facility] Type: BLOOD SPECIMENOrdering Facility: [facility] Address: [address] [place] [address] Performed By: #### 2 4321-2, 99954-1, 51934-1 ####[facility]ATORYCLIA [id number] [place] [address] [place] Urea nitrogen [Mass/Vol] 11 mg/dL Normal 7-21 [facility] Comment on above: Order Comment: Kinsey herrera Type: BLOOD SPECIMENOrdering Facility: [facility] Address: [address] [address] Performed By: #### 2 4321-2, , 86893-5 ####[facility]ORATORYCLIA [id number] [place] [address] [place] CBC W Auto Differential pane l (Bld)on 12-14-2021 Basophils (Bld) [#/Vol] 0.05 10*3/uL Normal <0.11 [facility] Comment on above: Order Comment: Speci men Type: BLOOD SPECIMENOrdering Facility: [facility] Address: [address] [place] [address] Performed By: #### 5 7021-8 ####[facility]ORATORYCLIA [id number] [address] Basophils/100 WBC (Bld) 0.4 % Normal [facility] Comment on above: Order Comment: Speci men Type: BLOOD SPECIMENOrdering Facility: [facility] Address: [address] [place] [address] Performed By: #### 5 7021-8 ####[facility]ATORYCLIA [id number] [address] Differential cell count method Nom (Bld) Auto Normal [facility] Comment on above: Order Comment: Speci men Type: BLOOD SPECIMENOrdering Facility: [facility] Address: [address] [place] [address] Performed By: #### 5 7021-8 ####[facility]ATORYCLIA [id number] [address] [place] Eosinophils (Bld) [#/Vol] 0.59 10*3/uL High <0.46 [facility] Comment on above: Order Comment: Speci men Type: BLOOD SPECIMENOrdering Facility: [facility] Address: [address] [place] [address] Performed By: #### 5 7021-8 ####[facility]ATORYCLIA [id number] [address] Eosinophils/100 WBC (Bld) 5.1 % Normal [facility] Comment on above: Order Comment: Speci men Type: BLOOD SPECIMENOrdering Facility: [facility] Address: [address] [address] Performed By: #### 5 7021-8 ####[facility]ATORYCLIA [id number] [address] Erythrocyte distribution width (RBC) [Ratio] 14.3 % Normal 11.5-15.0 [facility] Comment on above: Order Comment: Speci men Type: BLOOD SPECIMENOrdering Facility: [facility] Address: [address] [place] [address] Performed By: #### 5 7021-8 ####[facility]ATORYCLIA [id number] [address] Hematocrit (Bld) [Volume fraction] 37.4 % Normal 36.0-46.0 [facility] Comment on above: Order Comment: Speci men Type: BLOOD SPECIMENOrdering Facility: [facility] Address: [address] [place] [address] Performed By: #### 5 7021-8 ####[facility]ATORYCLIA [id number] [address] [place] Hemoglobin (Bld) [Mass/Vol] 12.1 g/dL Normal 11.5-15.5 [facility] Comment on above: Order Comment: Speci men Type: BLOOD SPECIMENOrdering Facility: [facility] Address: [address] [place] [address] Performed By: #### 5 7021-8 ####[facility]ORATORYCLIA [id number] [address] [place] Immature granulocytes (Bld) [#/Vol] 0.03 10*3/uL Normal <0.10 [facility] Comment on above: Order Comment: Speci men Type: BLOOD SPECIMENOrdering Facility: [facility] Address: [address] [place] [address] Performed By: #### 5 7021-8 ####[facility]ORATORYCLIA [id number] [address] [place] Immature granulocytes/100 WBC (Bld) 0.3 % Normal [facility] Comment on above: Order Comment: Speci men Type: BLOOD SPECIMENOrdering Facility: [facility] Address: [address] [place] [address] Performed By: #### 5 7021-8 ####[facility]ATORYCLIA [id number] [address] [place] Lymphocytes (Bld) [#/Vol] 2.87 10*3/uL Normal 1.00-4.00 [facility] Comment on above: Order Comment: Speci men Type: BLOOD SPECIMENOrdering Facility: [facility] Address: [address] [place] [address] Performed By: #### 5 7021-8 ####[facility]ATORYCLIA [id number] [address] Lymphocytes/100 WBC (Bld) 25.0 % Normal [facility] Comment on above: Order Comment: Speci men Type: BLOOD SPECIMENOrdering Facility: [facility] Address: [address] [place] [address] Performed By: #### 5 7021-8 ####[facility]ATORYCLIA [id number] [address] MCH (RBC) [Entitic mass] 29.9 pg Normal 26.0-34.0 [facility] Comment on above: Order Comment: Speci men Type: BLOOD SPECIMENOrdering Facility: [facility] Address: [address] [place] [address] Performed By: #### 5 7021-8 ####[facility]ATORYCLIA [id number] [address] MCHC (RBC) [Mass/Vol] 32.4 g/dL Normal 30.5-36.0 [facility] Comment on above: Order Comment: Speci men Type: BLOOD SPECIMENOrdering Facility: [facility] Address: [address] [place] [address] Performed By: #### 5 7021-8 ####[facility]ATORYCLIA [id number] [address] [place] MCV (RBC) [Entitic vol] 92.3 fL Normal 80.0-100.0 [facility] Comment on above: Order Comment: Speci men Type: BLOOD SPECIMENOrdering Facility: [facility] Address: [address] [place] [address] Performed By: #### 5 7021-8 ####[facility]ORYCLIA [id number] [address] [place] Monocytes (Bld) [#/Vol] 1.03 10*3/uL High <0.87 [facility] Comment on above: Order Comment: Speci men Type: BLOOD SPECIMENOrdering Facility: [facility] Address: [address] [place] [address] Performed By: #### 5 7021-8 ####[facility]ATORYCLIA [id number] [address] Monocytes/100 WBC (Bld) 9.0 % Normal [facility] Comment on above: Order Comment: Speci men Type: BLOOD SPECIMENOrdering Facility: [facility] Address: [address] [place] [address] Performed By: #### 5 7021-8 ####[facility]ATORYCLIA [id number] [address] [place] Neutrophils (Bld) [#/Vol] 6.90 10*3/uL Normal 1.45-7.50 [facility] Comment on above: Order Comment: Speci men Type: BLOOD SPECIMENOrdering Facility: [facility] Address: [address] [place] [address] Performed By: #### 5 7021-8 ####[facility]ORYCLIA [id number] [address] [place] Neutrophils/100 WBC (Bld) 60.2 % Normal [facility] Comment on above: Order Comment: Speci men Type: BLOOD SPECIMENOrdering Facility: [facility] Address: [address] Performed By: #### 5 7021-8 ####[facility]ATORYCLIA [id number] [address] Nucleated RBC (Bld) [#/Vol] 10*3/uL Normal <0.01 [facility] Comment on above: Order Comment: Speci men Type: BLOOD SPECIMENOrdering Facility: [facility] Address: [address] [address] Performed By: #### 5 7021-8 ####[facility]ATORYCLIA [id number] [address] Nucleated RBC/100 WBC (Bld) [Ratio] 0.0 /100 WBC Normal [facility] Comment on above: Order Comment: Speci men Type: BLOOD SPECIMENOrdering Facility: [facility] Address: [address] [place] [address] Performed By: #### 5 7021-8 ####[facility]ATORYCLIA [id number] [address] [place] [facility] Platelet mean volume (Bld) [Entitic vol] 10.8 fL Normal 9.0-12.7 [facility] Comment on above: Order Comment: Speci men Type: BLOOD SPECIMENOrdering Facility: [facility] Address: [address] Performed By: #### 5 7021-8 ####[facility]ATORYCLIA [id number] [address] Platelets (Bld) [#/Vol] 324 10*3/uL Normal 150-400 [facility] Comment on above: Order Comment: Speci men Type: BLOOD SPECIMENOrdering Facility: [facility] Address: [address] [place] [address] Performed By: #### 5 7021-8 ####[facility]ORATORYCLIA [id number] [place] [address] [place] RBC (Bld) [#/Vol] 4.05 10*6/uL Normal 3.90-5.20 [facility] Comment on above: Order Comment: Speci men Type: BLOOD SPECIMENOrdering Facility: [facility] Address: [address] [place], [place] [address] Performed By: #### 5 7021-8 ####[facility]ATORYCLIA [id number] [place] [id number] [facility] WBC (Bld) [#/Vol] 11.47 10*3/uL High 3.70-11.00 [facility] Comment on above: Order Comment: Speci men Type: BLOOD SPECIMENOrdering Facility: [facility] Address: [address] [place] [address] Performed By: #### 5 7021-8 ####[facility]ATORYCLIA [id number] [place] [id number] [facility] CONSULTon 12-14-2021 CONSULT HNO ID: [id number] Author: Adam Mei MD Service: General Internal Medicine Author Type: Physician Type: Consults Filed: 12/14/2021 6:06 AM Note Text: DEPARTMENT OF HOSPITAL MEDICINE Consult SERVICE DATE: 12/14/2021 SERVICE TIME: 1:02 AM Primary Care Physician: No primary care provider on file. NIGHT AND WEEKEND COVERAGE: From 7am - 7pm, please call Sound After 7pm, please call cross cover pager #[phone] Subjective CHIEF COMPLAINT: Left hip pain HPI: This is a 66 year old female with hx of dementia, anxiety, hypothyroidism, depression, and humerus fracture (left), who presents with left hip pain secondary to a fall yesterday. She denies LOC and denies head trauma. X ray revealed a left femoral neck fracture. Our medical hospitalist service is consulted for preop assessment. Pt denies headache, fever, chills, vision changes, swallowing problems, neck pain, chest pain, shortness of breath, cough, abdominal pain, flank pain, nausea, vomiting, diarrhea, constipation, bleeding, urinary problems. No other associated symptoms. No other known aggravating or relieving factors. She is afebrile and HD stable, 96% on RA. Covid neg, WBC 12.97, hgb 12.3, plt 298, BMP normal, CT brain and C spine showed no acute changes, CXR showed NAD. PMHx: dementia, anxiety, depression, left humerus fracture PSHx: LLE surgery FamHx: diabetes Social History Tobacco Use Smoking status: Former Substance Use Topics Alcohol use: Yes Comment: occasional Drug use: Never HOME MEDICATIONS: Prior to Admission Medications Prescriptions Last Dose Informant Patient Reported? Taking? calcium carbonate 500 mg calcium (1,250 mg) chewable tablet No No Sig: Take 1 tablet by mouth twice daily. cholecalciferol (VITAMIN D) 1,000 unit tab tablet No No Sig: Take 1 tablet by mouth once daily. levothyroxine (SYNTHROID) 50 mcg tablet No No Sig: Take 1 tablet by mouth DAILY (6 AM). multivitamin with folic acid (THERA, ONE DAILY) 400 mcg No No Sig: Take 1 tablet by mouth once daily. silver sulfADIAZINE (SILVADENE,THERMAZENE) 1 % cream No No Sig: Apply 1 application to affected area twice daily. Facility-Administered Medications: None ALLERGIES No Known Allergies REVIEW OF SYSTEM: All ROS are negative except those noted in HPI Objective PHYSICAL EXAM: BP 128/70 Pulse 92 Temp (Src) 99.7 (Oral) Resp 18 Ht 5' 5" (1.65m) Wt 150 lb (68.0kg) SpO2 96% BMI 24.96 kg/(m2). O2 Therapy: Room Air GENERAL: Alert, no distress, cooperative, NAD SKIN: Warm, dry intact, no open lesions, no rashs HEAD/SINUSES: Normocephalic, atraumatic, oral mucosa moist EYES: PERRLA, EOMI NECK: No jugulovenous distention, Supple, no adenopathy LUNGS: Lungs clear to auscultation, no wheezes, ronchi, or rales CARDIAC: RRR, Normal S1 and S2; no rubs, murmurs, or gallops ABDOMEN: Abdomen soft, non-tender, BS normal, No masses or organomegaly EXTREMITIES: LLE shortened and externally rotated. NEURO: Sensation grossly intact, Cranial nerves II-XII intact, moves all 4 extremities, speech was clear and coherent - no chronic shelley DATA: Diagnostic tests reviewed for today's visit: Most recent labs and imaging results. CBC: Recent Labs 12/13/211918 WBC 12.97* RBC 4.16 HB 12.3 HCT 38.4 PLT 298 MCV 92.3 MCH 29.6 MPV 9.9 Coags: Recent Labs 12/13/211918 INR 1.0 BMP: Recent Labs 12/13/211918 NA 139 K 3.9 CHLOR 104 CO2 25 BUN 10 CREAT 0.75 GLUC 98 CMP: Recent Labs 12/13/211918 NA 139 K 3.9 CHLOR 104 CO2 25 BUN 10 CREAT 0.75 GLUC 98 CA 8.9 ANION 10 Cardiac Enzymes: No results for input(s): CK, MB, CKMB, TROPT in the last 24 hours. Liver Function, Amylase, Lipase: No results for input(s): TPROT, ALB, ALT, AST, ALKPHOS, TBILI, AMYLASE, LIPASE, LACTATE in the last 24 hours. MG/PHOS: No results for input(s): MG, P in the last 24 hours. Renal Panel: Recent Labs 12/13/211918 CREAT 0.75 BUN 10 GLUC 98 CA 8.9 CHLOR 104 K 3.9 CO2 25 NA 139 Heme: No results for input(s): RETICP, ABSRETIC, LD, PORTIA, FE, TIBC, TRANSFERSAT in the last 24 hours. Assessment/Plan Principal Problem: Closed displaced fracture of left femoral neck -- Surgical management as per Orthopedics -- encourage incentive spirometry -- Pain management and PT/OT as per Orthopedics 2. Revised Cardiac Risk Index = 1 -- telemetry -- will check proBNP. Recommend daily troponin for first 48 hours -- no further cardiac testing indicated at this time 3. Hypothyroidism -- resume Synthroid postop 4. Dementia -- monitor for postop delirium 5. Monitor Hgb, Hct posto -- transfuse PRBC if Hgb <7 VTE Prophylaxis: As per primary team Disposition: Pending workup Plan of care discussed with: Provider, RN, Patient Code status: Full Thank you for the consult. We will continue to follow. SIGNATURE: Adam Mei MD PATIENT NAME: Claribel EVANS (more content not included)... Normal [facility] ECG COMPLETEon 12-14-2021 ECG COMPLETE Ventricular Rate : 8 4 BPM Atrial Rate : 84 BPM P-R Interval : 130 ms QRS Duration : 84 ms Q-T Interval : 394 ms QTC Calculation(Bazett) : 465 ms Calculated P [place] : 82 degrees Calculated R [place] : 81 degrees Calculated T [place] : 74 degrees NORMAL SINUS RHYTHM NORMAL ECG WHEN COMPARED WITH ECG OF 04-SEP-2015 18:42, NO SIGNIFICANT CHANGE WAS FOUND Confirmed by MD GIBBONS ANUBHAV ([id number]) on 12/14/2021 2:45:00 PM NAME : CLARIBEL STOLL PID : [id number] : 1955 Gender : Female Race : ORD : [id number] Procedure Date : Dec 14 2021 02:14:12 Edit Date : Dec 14 2021 14:45:01 Diagnosis: NORMAL SINUS RHYTHM NORMAL ECG WHEN COMPARED WITH ECG OF 04-SEP-2015 18:42, NO SIGNIFICANT CHANGE WAS FOUND Confirmed by MD GIBBONS ANUBHAV ([id number]) on 12/14/2021 2:45:00 PM Test Reason : Pre-OP Location : 152 : [address] [place] [address] Overread By : MD GIBBONS ANUBHAV Edited By : MD GIBBONS ANUBHAV Referred By : , Acquired by : JUAQUIN KAMINSKI [facility] ED NOTEon 12-14-2021 ED NOTE HNO ID: [id number] Author: Radha Vines RN Service: Emergency Medicine Author Type: Registered Nurse Type: ED Notes Filed: 12/13/2021 11:24 PM Note Text: Transport in to take pt up and pt PIV was out on bed. Attempted to call 52B to update on unplanned removal. No answer on the floor, pt sent up with transport to . [facility] ED NOTE HNO ID: [id number] Author: Radha Vines RN Service: Emergency Medicine Author Type: Registered Nurse Type: ED Notes Filed: 12/13/2021 10:40 PM Note Text: MD lama aware of inability to re access a PIV. [facility] ED NOTE HNO ID: [id number] Author: Radha Vines RN Service: Emergency Medicine Author Type: Registered Nurse Type: ED Notes Filed: 12/13/2021 10:32 PM Note Text: Unplanned removal of IV. Unable to obtain a second access. Admit paged. [facility] ED NOTE HNO ID: [id number] Author: Radha Vines RN Service: Emergency Medicine Author Type: Registered Nurse Type: ED Notes Filed: 12/13/2021 10:13 PM Note Text: Pt given sandwich. Xray called. Normal [facility] Magnesium SerPl-mCncon 12-14 Magnesium [Mass/Vol] 2.1 mg/dL Normal 1.7-2.3 [facility] Comment on above: Order Comment: Speci men Type: BLOOD SPECIMENOrdering Facility: [facility] Address: [address] [place] [address] Performed By: #### 2 4321-2, 54827-5, 60235-3 ####[facility] [id number] NT-proBNP [facility] 12-14 Natriuretic peptide.B prohormone N-Terminal [Mass/Vol] 186 pg/mL High <125 [facility] Comment on above: Order Comment: Speci men Type: BLOOD SPECIMENOrdering Facility: [facility] Address: [address] [place] [address] Performed By: #### 2 4321-2, 46594-0, 57527-0 ####[facility] [id number] [address] OF [facility] NURSING PROGon 12-14-2021 NURSING PROG HNO ID: [id number] Author: Katelin Saldaña RN Service: Nursing Author Type: Registered Nurse Type: Nursing Progress Note Filed: 12/14/2021 9:53 AM Note Text: Attempt to call Brother Garry to make aware of patient surgery time, phone busy. Attempt to call x2. Normal [facility] OPERATIVE NOon 12-14-2021 OPERATIVE NO HNO ID: [id number] Author: Yasmany Roman MD Service: Orthopaedic Surgery Author Type: Physician Type: Operative Report Filed: 12/15/2021 4:07 PM Note Text: [facility] - Operative Report CLARIBEL STOLL : 1955 AGE: 66. SEX: F PATIENT TYPE: [place] [facility] [place] [facility] LOCATION: [id number] ATTENDING PHYSICIAN: YASMANY ROMAN CSN NUMBER: [id number] DATE OF SURGERY/PROCEDURE: 12/14/2021 INCISION/PROCEDURE START TIME: 1:03 PM INCISION CLOSE/PROCEDURE END TIME: 3:52 PM PREOPERATIVE DIAGNOSIS: Subcapital fracture, left hip. POSTOPERATIVE DIAGNOSIS: Subcapital fracture, left hip. SURGEON: Yasmany Roman MD HAT BAND ATTACHER: Operating room personnel. SURGERY/PROCEDURE: Hemiarthroplasty, left hip. ANESTHESIA: General. DESCRIPTION OF PROCEDURE: Patient was placed on operating table in supine position. After adequate induction of general anesthesia, she was initially placed onto the fracture table where the fracture was reduced in traction. She was prepped and draped in the usual sterile orthopedic manner. At this point, image was used to check the fracture once again and the fracture was noted to have displaced with significant posterior displacement on the femoral neck. This was confirmed in both the AP and lateral projections. Because of this displacement, attempts at reduction were performed including traction as well as rotation. It was not something that could be reduced. It was elected to go ahead and take her from the fracture table and do a hemiarthroplasty. She was removed from the fracture table and transferred to a regular operating room table. She was placed in the right lateral decubitus position on the [facility] backpack. She was prepped and draped in sterile orthopedic manner. The left leg draped free. A linear incision was made in the lateral aspect of the left hip extending to subcutaneous tissue down the level of fascia. The fascia was incised. It was retracted with a Charnley retractor. Short external rotators were detached posteriorly down to the level of capsule. Bleeders were carefully coagulated as they were encountered. The capsule was T'd. The femoral head was removed with a corkscrew that measured at 44 mm. The debris was removed from the acetabulum. This was followed by exposure of the femoral neck. Soft tissue was removed from the lateral aspect of the femoral neck. At this point, a box chisel was used to remove the lateral aspect of femoral neck. A canal finder was placed down the femoral canal. A lateralizing reamer was used to ream the trochanter. Baton reamers were used up to a size 10, followed by use of broaches to a size 10, which found to fit nicely into the calcar. Calcar broach was used to ream the calcar. At this point, a trial reduction was performed with a standard length neck and found to fit nicely. The hip was once again dislocated. It was irrigated. The final femoral component was impacted into the femoral canal. A unipolar femoral head was then impacted onto the femoral component. The hip was once again reduced. The capsule was closed with baudqb-bm-dcshe sutures of #1 Nurolon. The piriformis was reattached to the greater trochanter with 1 Nurolon suture. The retractor was removed. The fascia was closed with ltcqoo-ef-jgqdf sutures of #1 Nurolon. The subcutaneous tissue was closed in layered fashion with 2- 0 Vicryl. The skin was closed with proximate suture clips. An inferior incision which had been made with the previous attempt at closed reduction was also closed at this time. The fascia was closed with 0 Vicryl suture. Subcutaneous tissue was closed with 2-0 Vicryl. Skin was closed with proximate suture clips. Sterile dressing was applied. The patient was awoken and returned to recovery room in satisfactory condition after tolerating the procedure quite well. Yasmany Roman MD PGW:[id number] /[id number] Normal [facility] PT panel Coag (PPP)on 2021 INR Coag (PPP) [Relative time] 1.0 {INR} Normal <1.4 [facility] Comment on above: Order Comment: Speci men Type: BLOOD SPECIMENOrdering Facility: [facility] Address: [address] [place] [id number] Result Comment: Suzan min K Antagonist (VKA) Therapeutic Range: INR 2 to 3 (Target INR of 2.5) Note: For patients treated with VKA drugs, such as warfarin, the [employer] 2012 Guideline recommends a therapeutic INR range of 2 to 3 (target INR of 2.5). This recommendation includes high-risk patients with antiphospholipid syndrome with previous arterial or venous thromboembolism, current-generation mechanical or bioprosthetic aortic heart valve replacement. Note: Patients with mechanical aortic valve replacement and additional risk factors for thromboembolic events (atrial fibrillation, previous thromboembolism, LV dysfunction, hypercoagulable conditions) or an older generation mechanical AVR (i.e., ball in-Cage) or any mechanical MVR should have a INR therapeutic range of 2.5 to 3.5 (target INR of 3). Sanam GH, et al. Chest 2012, 141:7S-47S Harpreet RA, et al. [facility] 2017, 70: 252-289 Performed By: #### 1 4979-9, 63003-1 ####[facility] LABORATORYCLIA [id number] [address] [place] PT Coag (PPP) [Time] 8.9 s Normal <13.1 [facility] Comment on above: Order Comment: Speci men Type: BLOOD SPECIMENOrdering Facility: [facility] Address: [address] [place] [address] Performed By: #### 1 4979-9, 17608-2 ####[facility]ORATORYCLIA [id number] [address] SURGICAL PATHOLOGYon CASE REPORT Normal [facility] Comment on above: Order Comment: Speci men Type: SPECIMEN FROM BONE [facility] Address: [address] [place] [address] Result Comment: Surg ical Pathology Report Case: [id number] Authorizing Provider: Yasmany Roman MD Collected: 12/14/2021 02:48 PM Ordering Location: [facility] Received: 12/16/2021 07:27 AM Pathologist: Aleah Franco MD Specimen: FEMORAL HEAD LEFT Performed By: #### S #### [facility] CLIA [id number] [address] [place] [address] CLINICAL HISTORY Normal [facility] Comment on above: Order Comment: Speci men Type: SPECIMEN FROM BONE [facility] Address: [address] [place] [address] Result Comment: Pre- op diagnosis: Closed displaced fracture of left femoral neck (HCC) [S72.002A] Performed By: #### S #### [facility] CLIA [id number] [address] FINAL DIAGNOSIS Normal [facility] Comment on above: Order Comment: Speci men Type: SPECIMEN FROM BONE [facility] Address: [address] [place] [address] Result Comment: Femo ral head, left, hip arthroplasty: - Fragmentation of the bony trabeculae with hemorrhage into the medullary cavity, consistent with recent fracture. - Soft tissue with no pathologic diagnosis. - No malignancy is seen. Performed By: #### S #### [facility] CLIA [id number] [address] [place] [address] FINAL PERFORMING LAB Normal [facility] Comment on above: Order Comment: Speci men Type: SPECIMEN FROM BONE [facility] Address: [address] [place] [address] Result Comment: Diag nostic interpretation performed at [facility], [address] [place] [address] CLIA# [id number] Hydrostatic Tester: Yao Rodriguez M.D. Performed By: #### S #### [facility] CLIA [id number] [address] [place] [address] GROSS DESCRIPTION Normal [facility] Comment on above: Order Comment: Speci men Type: SPECIMEN FROM BONE [facility] Address: [address] [place] [address] Result Comment: A. F EMORAL HEAD LEFT Received in formalin labeled as "femoral head left" is a femoral head measuring approximately 4.4 x 4.4 x 4.4 cm. The articular surface is roughened, however no distinctive area of eburnation is identified. No osteophytes are present. The surgical neck is ragged and hemorrhagic. [place]-wilkerson soft tissue is mildly adherent to the bone. Sectioning reveals wilkerson-red, slightly hemorrhagic, hard trabecular cut surfaces. No areas of necrosis or subchondral cystic structures are identified.A lso present in the container are multiple wilkerson-pink, ragged, hemorrhagic bone fragments aggregating to 3.5 x 3.5 x 2.3 cm. Director Of Entertainment sections are submitted as follows: A1 soft tissue; A2-A3 bone after decalcification. Gross examination performed at [facility], [address] [place] [address] CLIA# [id number] RSA December 16, 2021 9:41 AM Performed By: #### S #### [facility] CLIA [id number] [address] Urinalysis complete panel (U )on 12-14-2021 Bacteria LM.HPF (Urine sed) [#/Area] Few Abnormal None Seen [facility] Comment on above: Order Comment: Speci men Type: URINE SPECIMENOrdering Facility: [facility] Address: [address] [place] [address] Performed By: #### 2 4356-8 ####[facility]ORYCLIA [id number] [address] Bilirubin Ql (U) Negative Normal Negative [facility] Comment on above: Order Comment: Speci men Type: URINE SPECIMENOrdering Facility: [facility] Address: [address] [place] [address] Performed By: #### 2 4356-8 ####[facility]ATORYCLIA [id number] [address] Clarity (Unsp spec) Turbid Abnormal Clear [facility] Comment on above: Order Comment: Speci men Type: URINE SPECIMENOrdering Facility: [facility] Address: [facility] [place] [address] Performed By: #### 2 4356-8 ####[facility]ATORYCLIA [id number] [address] Color (U) Yellow Normal yellow [facility] Comment on above: Order Comment: Speci men Type: URINE SPECIMENOrdering Facility: [facility] Address: [address] [place] [address] Performed By: #### 2 4356-8 ####[facility]ORYCLIA [id number] [address] Epithelial cells LM.HPF (Urine sed) [#/Area] Few Normal [facility] Comment on above: Order Comment: Speci men Type: URINE SPECIMENOrdering Facility: [facility] Address: [address] [place] [address] Performed By: #### 2 4356-8 ####[facility]ATORYCLIA [id number] [address] Glucose Test strip (U) [Mass/Vol] Negative Normal Negative [facility] Comment on above: Order Comment: Speci men Type: URINE SPECIMENOrdering Facility: [facility] Address: [address] [place] [address] Performed By: #### 2 4356-8 ####[facility]ATORYCLIA [id number] [address] Hemoglobin Ql (U) Negative Normal Negative [facility] Comment on above: Order Comment: Speci men Type: URINE SPECIMENOrdering Facility: [facility] Address: [address] [place] [address] Performed By: #### 2 4356-8 ####[facility]ORYCLIA [id number] [address] Ketones Ql (U) Negative Normal Negative [facility] Comment on above: Order Comment: Speci men Type: URINE SPECIMENOrdering Facility: [facility] Address: [address] [place] [address] Performed By: #### 2 4356-8 ####[facility]ORYCLIA [id number] [address] Leukocyte esterase Test strip Ql (U) Negative Normal Negative [facility] Comment on above: Order Comment: Speci men Type: URINE SPECIMENOrdering Facility: [facility] Address: [address] [place] [address] Performed By: #### 2 4356-8 ####[facility]ORYCLIA [id number] [address] [place] Nitrite Ql (U) 2+ Abnormal Negative [facility] Comment on above: Order Comment: Speci men Type: URINE SPECIMENOrdering Facility: [facility] Address: [address] [place] [address] Performed By: #### 2 4356-8 ####[facility]ATORYCLIA [id number] [address] [place] pH (U) 8.0 [pH] Normal 5.0-8.0 [facility] Comment on above: Order Comment: Speci men Type: URINE SPECIMENOrdering Facility: [facility] Address: [address] [place] [address] Performed By: #### 2 4356-8 ####[facility]ATORYCLIA [id number] [address] Protein (U) [Mass/Vol] Trace Abnormal Negative [facility] Comment on above: Order Comment: Speci men Type: URINE SPECIMENOrdering Facility: [facility] Address: [address] [place] [address] Performed By: #### 2 4356-8 ####[facility]ATORYCLIA [id number] [address] RBC LM.HPF (Urine sed) [#/Area] 0-3 /HPF Normal 0-3 /HPF [facility] Comment on above: Order Comment: Speci men Type: URINE SPECIMENOrdering Facility: [facility] Address: [address] [place] [address] Performed By: #### 2 4356-8 ####[facility]ATORYCLIA [id number] [address] Specific gravity (U) [Rel density] 1.021 Normal 1.005-1.030 [facility] Comment on above: Order Comment: Speci men Type: URINE SPECIMENOrdering Facility: [facility] Address: [address] [place] [address] Performed By: #### 2 4356-8 ####[facility]ATORYCLIA [id number] [address] Triple phosphate crystals LM.HPF (Urine sed) [#/Area] Few Abnormal None Seen [facility] Comment on above: Order Comment: Speci men Type: URINE SPECIMENOrdering Facility: [facility] Address: [address] [place] [address] Performed By: #### 2 4356-8 ####[facility]ORYCLIA [id number] [address] [place] Urobilinogen Ql (U) 1+ Abnormal Negative [facility] Comment on above: Order Comment: Speci men Type: URINE SPECIMENOrdering Facility: [facility] Address: [address] [place] [address] Performed By: #### 2 4356-8 ####[facility]ATORYCLIA [id number] [address] [place] WBC LM.HPF (Urine sed) [#/Area] 0-5 /HPF Normal 0-5 /HPF [facility] Comment on above: Order Comment: Speci men Type: URINE SPECIMENOrdering Facility: [facility] Address: [address] [place] [address] Performed By: #### 2 4356-8 ####[facility]ATORYCLIA [id number] [place] [address] [place] XR FEMUR 2V AP/LAT LTon 11-24 XR FEMUR 2V AP/LAT LT * * *Final Report* * * DATE OF EXAM: Dec 13 2021 10:45PM [id number] - XR FEMUR 2V AP/LAT LT / PROCEDURE REASON: Fracture, femur * * * * Physician Interpretation * * * * EXAMINATION: XR FEMUR 2V AP/LAT LT CLINICAL HISTORY: Fracture, femur Technique: XR FEMUR 2V AP/LAT LT -- LEFT femur radiograph with 2 views on 2 images Comparison: Pelvic and hip radiographs 12/13/2021 RESULT: The left proximal femur is incompletely imaged on this study (suspected left femoral neck subcapital fracture not evaluated on this exam). No findings concerning for additional femur fracture identified. Soft tissues are normal. IMPRESSION: No additional femur fracture identified. Miter Grinder Operator: [facility] Transcribe Date/Time: Dec 13 2021 11:29P Dictated by : JOSEF SPAULDING MD This examination was interpreted and the report reviewed and electronically signed by: JOSEF SPAULDING MD on Dec 13 2021 11:30PM EST [id number] Normal [facility] XR HIP 2V AP/ LAT LTon 12-14 XR HIP 2V AP/ LAT LT * * *Final Report* * * DATE OF EXAM: Dec 14 2021 2:08PM [id number] - XR HIP 2V AP/ LAT LT / PROCEDURE REASON: Closed displaced fracture of left femoral neck * * * * Physician Interpretation * * * * EXAM TITLE: INTRAOPERATIVE SPOT VIEWS OF THE LEFT HIP DATE: December 14, 2021 12:52 PM COMPARISON: Plain films from December 13, 2021. CLINICAL INDICATION/HISTORY: The patient is a 66-year-old female with impacted subcapital fracture of the left femur undergoing hip replacement TECHNIQUE: 0 minutes and 16 seconds of fluoroscopy time was available in the OR. 3 spot films were obtained. Fluoroscopy Radiation dose: Integrated dose-area product (DAP) for this visit = 6.41 mGy*cm. FINDINGS: Spot views demonstrate an impacted fracture of the subcapital portion of the left femoral neck. The head is located normally within the acetabulum. IMPRESSION: Intraoperative spot views document impacted subcapital fracture of the left femur prior to placement of left hip prosthesis. Miter Grinder Operator: [facility] Transcribe Date/Time: Dec 19 2021 2:58P Dictated by : AMAN MACDONALD MD This examination was interpreted and the report reviewed and electronically signed by: AMAN MACDONALD MD on Dec 19 2021 3:00PM EST [id number] Normal [facility] XR PELVIS 1V APon 12-14-2021 XR PELVIS 1V AP * * *Final Report* * * DATE OF EXAM: Dec 14 2021 4:46PM [id number] - XR PELVIS 1V AP / PROCEDURE REASON: Post-operative / post-procedure assessment, asymptomatic * * * * Physician Interpretation * * * * EXAMINATION: XR PELVIS 1V AP HISTORY: post op Post-operative / post-procedure assessment, asymptomatic . TECHNIQUE: XR PELVIS 1V AP Laterality: NOT APPLICABLE Number of different views (projections): 1 M: XB_1 COMPARISON: None RESULT: Interval left hip hemiarthroplasty. Hardware is intact, no findings of dislocation of components. Postoperative soft tissue gas noted. No periprosthetic fracture. No other significant abnormality. IMPRESSION: Interval placement of a left total hip arthroplasty without discrete complication. Miter Grinder Operator: PSCB Transcribe Date/Time: Dec 14 2021 5:11P Dictated by : RANDEE PHILLIPS MD This examination was interpreted and the report reviewed and electronically signed by: RANDEE PHILLIPS MD on Dec 14 2021 5:11PM EST [id number] Normal [facility] aPTT PPPon 12-14-2021 aPTT Coag (PPP) [Time] 21.4 s Low 28.5-34.0 [facility] Comment on above: Order Comment: Speci men Type: BLOOD SPECIMENOrdering Facility: [facility] Address: [address] [place] [address] Performed By: #### 1 [id number], [id number] ####[facility] [id number] [place] [address] [place] ALLIED HEALTHon 12-13-2021 ALLIED HEALTH HNO ID: [id number] Author: RT Kylee(R) Service: Radiology Author Type: Technologist Type: Allied Health Filed: 12/13/2021 8:04 PM Note Text: Radiology Service Progress Note PATIENT NAME: Claribel Stoll DATE OF SERVICE: December 13, 2021 TIME: 8:04 PM PATIENT IDENTITY VERIFICATION COMPLETED USING TWO (2) IDENTIFIERS: Name and Date of confirmed by patient verbally and Name and Date of confirmed by identification band. FALL SCREENING: Has the patient had 2 falls in the last year or 1 fall with injury or currently using an Ambulatory Assistive Device (Walker, Cane, Wheelchair, Crutches, etc.)? Emergency Room Patient: Screened in ED PATIENT GENDER DATA: Female. status: : No status: NO. PATIENT RELEVANT IMPLANT DATA REVIEWED: Not Applicable RADIOLOGY DEPARTMENT: General X-ray: Exam(s) Completed: Chest X-Ray Pelvis X-Ray: Pelvis with Hip Left PERIPHERAL IV DATA: Not applicable SIGNED BY: RT Campbell(R) December 13, 2021 8:04 PM Normal [facility] ALLIED HEALTH HNO ID: [id number] Author: RT Penelope(R) Service: Radiology Author Type: Bagger And Stock Handler Helper Type: Allied Health Filed: 12/13/2021 7:30 PM Note Text: Radiology Service Progress Note PATIENT NAME: Claribel Stoll DATE OF SERVICE: December 13, 2021 TIME: 7:29 PM PATIENT IDENTITY VERIFICATION COMPLETED USING TWO (2) IDENTIFIERS: Name and Date of confirmed by patient verbally and Name and Date of confirmed by identification band. FALL SCREENING: Has the patient had 2 falls in the last year or 1 fall with injury or currently using an Ambulatory Assistive Device (Walker, Cane, Wheelchair, Crutches, etc.)? Emergency Room Patient: Screened in ED PATIENT GENDER DATA: Female. status: : No status: NO. PATIENT RELEVANT IMPLANT DATA REVIEWED: Not Applicable RADIOLOGY DEPARTMENT: CT; Exam(s) Completed: Brain and Spine PERIPHERAL IV DATA: Not applicable SIGNED BY: RT Penelope(R) December 13, 2021 7:29 PM Normal [facility] Basic metabolic 2000 panelon 12-13-2021 Anion gap [Moles/Vol] 10 mmol/L Normal 9-18 [facility] Comment on above: Order Comment: Speci men Type: BLOOD SPECIMEN [facility] Address: [address] [place] [address] Performed By: #### T SCR #### [facility] CLIA [id number] [address] [place] [address] [place] Calcium [Mass/Vol] 8.9 mg/dL Normal 8.5-10.2 [facility] Comment on above: Order Comment: Speci men Type: BLOOD SPECIMEN [facility] Address: [address] [place] [address] Performed By: #### T SCR #### [facility] CLIA [id number] [address] Chloride [Moles/Vol] 104 mmol/L Normal 97-105 [facility] Comment on above: Order Comment: Speci men Type: BLOOD SPECIMEN [facility] Address: [address] [place] [address] Performed By: #### T SCR #### [facility] CLIA [id number] [address] CO2 [Moles/Vol] 25 mmol/L Normal 22-30 [facility] Comment on above: Order Comment: Speci men Type: BLOOD SPECIMEN [facility] Address: [address] [place] [address] Performed By: #### T SCR #### [facility] CLIA [id number] [address] Creatinine [Mass/Vol] 0.75 mg/dL Normal 0.58-0.96 [facility] Comment on above: Order Comment: Speci men Type: BLOOD SPECIMEN [facility] Address: [address] [place] [address] Performed By: #### T SCR #### [facility] CLIA [id number] [address] ESTIMATED GLOMERULAR FILTRATION RATE 87 mL/min/1.73m??? Normal >=60 [facility] Comment on above: Order Comment: Speci men Type: BLOOD SPECIMEN [facility] Address: [address] [place] [address] Result Comment: Jessa mated Glomerular Filtration Rate (eGFR) is calculated using the 2020 CKD-EPI creatinine equation. This equation utilizes serum creatinine, sex, and age as parameters. The creatinine assay has traceable calibration to isotope dilution-mass spectrometry. Refer to KDIGO guidelines for clinical interpretation. In patients with unstable renal function, e.g. those with acute kidney injury, the eGFR may not accurately reflect actual GFR. Performed By: #### T SCR #### [facility] IA [id number] [address] [place] [address] [place] Glucose [Mass/Vol] 98 mg/dL Normal 74-99 [facility] Comment on above: Order Comment: Micahi men Type: BLOOD SPECIMEN [facility] Address: [address] [place] [address] Result Comment: The [place] [employer] (ADA) provides guidance for cutoff values for fasting glucose and random glucose. The ADA defines fasting as no caloric intake for at least 8 hours. Fasting plasma glucose results between 100 to 125 mg/dL indicate increased risk for diabetes (prediabetes). Fasting plasma glucose results greater than or equal to 126 mg/dL meet the criteria for diagnosis of diabetes. In the absence of unequivocal hyperglycemia, results should be confirmed by repeat testing. In a patient with classic symptoms of hyperglycemia or hyperglycemic crisis, random plasma glucose results greater than or equal to 200 mg/dL meet the criteria for diagnosis of diabetes. Reference: Standards of Medical Care in Diabetes 2016, [place] [employer]. Diabetes Care. 2016.39(Suppl 1). Performed By: #### T SCR #### [facility] IA [id number] [address] [place] Potassium [Moles/Vol] 3.9 mmol/L Normal 3.7-5.1 [facility] Comment on above: Order Comment: Kinsey javier Type: BLOOD SPECIMEN [facility] Address: [address] [place] [address] Performed By: #### T SCR #### [facility] IA [id number] 1 [place] [address] [place] Sodium [Moles/Vol] 139 mmol/L Normal 136-144 [facility] Comment on above: Order Comment: Speci men Type: BLOOD SPECIMEN [facility] Address: [address] [place] [address] Performed By: #### T SCR #### [facility] [place] [id number] [address] [place] Urea nitrogen [Mass/Vol] 10 mg/dL Normal - [facility] Comment on above: Order Comment: Speci men Type: BLOOD SPECIMEN [facility] Address: [address] [place] [address] Performed By: #### T SCR #### [facility] CLIA [id number] [address] OF [facility] CBC panel Auto (Bld)on 12-13 Erythrocyte distribution width (RBC) [Ratio] 13.6 % Normal 11.5-15.0 [facility] Comment on above: Order Comment: Speci men Type: BLOOD SPECIMEN [facility] Address: [address] [place] [address] Performed By: #### T SCR #### [facility] CLIA [id number] [address] STATES OF [facility] Hematocrit (Bld) [Volume fraction] 38.4 % Normal 36.0-46.0 [facility] Comment on above: Order Comment: Speci men Type: BLOOD SPECIMEN [facility] Address: [address] [place] [address] Performed By: #### T SCR #### [facility] CLIA [id number] [address] STATES OF [facility] Hemoglobin (Bld) [Mass/Vol] 12.3 g/dL Normal 11.5-15.5 [facility] Comment on above: Order Comment: Speci men Type: BLOOD SPECIMEN [facility] Address: [address] [place] [address] Performed By: #### T SCR #### [facility] CLIA [id number] [address] MCH (RBC) [Entitic mass] 29.6 pg Normal 26.0-34.0 [facility] Comment on above: Order Comment: Speci men Type: BLOOD SPECIMEN [facility] Address: [address] [place] [address] Performed By: #### T SCR #### [facility] CLIA [id number] [address] MCHC (RBC) [Mass/Vol] 32.0 g/dL Normal 30.5-36.0 [facility] Comment on above: Order Comment: Speci men Type: BLOOD SPECIMEN [facility] Address: [address] [place] [address] Performed By: #### T SCR #### [facility] CLIA [id number] [address] MCV (RBC) [Entitic vol] 92.3 fL Normal 80.0-100.0 [facility] Comment on above: Order Comment: Speci men Type: BLOOD SPECIMEN [facility] Address: [address] [place] [address] Performed By: #### T SCR #### [facility] CLIA [id number] [address] Nucleated RBC (Bld) [#/Vol] 10*3/uL Normal <0.01 [facility] Comment on above: Order Comment: Speci men Type: BLOOD SPECIMEN [facility] Address: [address] [place] [address] Performed By: #### T SCR #### [facility] CLIA [id number] [address] Platelet mean volume (Bld) [Entitic vol] 9.9 fL Normal 9.0-12.7 [facility] Comment on above: Order Comment: Speci men Type: BLOOD SPECIMEN [facility] Address: [address] [place] [address] Performed By: #### T SCR #### [facility] CLIA [id number] [address] OF [facility] Platelets (Bld) [#/Vol] 298 10*3/uL Normal 150-400 [facility] Comment on above: Order Comment: Speci men Type: BLOOD SPECIMEN [facility] Address: [address] [place] [address] Performed By: #### T SCR #### [facility] CLIA [id number] [address] OF [facility] RBC (Bld) [#/Vol] 4.16 10*6/uL Normal 3.90-5.20 [facility] Comment on above: Order Comment: Speci men Type: BLOOD SPECIMEN [facility] Address: [address] [place] [address] Performed By: #### T SCR #### [facility] CLIA [id number] [address] OF [facility] WBC (Bld) [#/Vol] 12.97 10*3/uL High 3.70-11.00 [facility] Comment on above: Order Comment: Speci men Type: BLOOD SPECIMEN [facility] Address: [address] [place] [address] Performed By: #### T SCR #### [facility] CLIA [id number] [address] BRAIN WO IVCONon 12-14-19 CT BRAIN WO IVCON * * *Final Report* * * DATE OF EXAM: Dec 13 2021 7:35PM [facility] 0504 - CT BRAIN WO IVCON / PROCEDURE REASON: Head trauma, moderate-severe * * * * Physician Interpretation * * * * EXAMINATION: CT BRAIN WO IVCON CLINICAL HISTORY: Head injury secondary to a fall. Headache TECHNIQUE: Serial axial images without IV contrast were obtained from the vertex to the foramen magnum. MQ: CTBWO_3 CT Radiation dose: Integrated Dose-Length Product (DLP) for this visit = 1169 mGy*cm CT Dose Reduction Employed: Automated exposure control(AEC) and iterative recon COMPARISON: None. RESULT: There is no evidence for recent intracranial hemorrhage, mass lesion, or recent infarction. 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 There is moderate cerebral atrophy. Subcortical leukoencephalopathy suggests chronic microvascular ischemic disease. No skull fracture is evident. The visualized portions of the paranasal sinuses are clear. IMPRESSION: Chronic changes. There is no acute intracranial abnormality. Miter Grinder Operator: AYUSH Transcribe Date/Time: Dec 13 2021 7:51P Dictated by : GARY RIOS MD This examination was interpreted and the report reviewed and electronically signed by: GARY RIOS MD on Dec 13 2021 7:53PM EST [id number] Normal [facility] CT CERVICAL SPINE WO IVCONon 12-13-2021 CT CERVICAL SPINE WO IVCON * * *Final Report* * * DATE OF EXAM: Dec 13 2021 7:35PM [facility] 0505 - CT CERVICAL SPINE WO IVCON / PROCEDURE REASON: Neck trauma, intoxicated or obtunded (Age >= 16y) * * * * Physician Interpretation * * * * EXAMINATION: CT CERVICAL SPINE WO IVCON CLINICAL HISTORY: Neck pain secondary to a fall TECHNIQUE: Spiral, high resolution axial unenhanced images were obtained from the skull base to the cervicothoracic junction with sagittal and coronal planar reconstructions. MQ: CTCSPWO_5 CT Radiation dose: Integrated CT Dose-Length Product (DLP) for this visit = 1169 mGy*cm CT Dose Reduction Employed: Automated exposure control(AEC) and iterative recon COMPARISON: None. RESULT: Assessment is limited by marked kyphosis. Within these limitations, no definite fracture or dislocation is seen. There is bony fusion of the vertebral bodies at C5-C6. There is multilevel right-sided facet joint fusion. Generalized osteopenia is noted. There is no acute soft tissue abnormality. IMPRESSION: Within the limitations of the exam, there is no definite fracture. If pain persists, follow up studies are suggested. Miter Grinder Operator: AYUSH Transcribe Date/Time: Dec 13 2021 7:53P Dictated by : GARY RIOS MD This examination was interpreted and the report reviewed and electronically signed by: GARY RIOS MD on Dec 13 2021 7:55PM EST [id number] Normal [facility] ED NOTEon 12-13-2021 ED NOTE HNO ID: [id number] Author: Marin Waters, Chio Service: ? Author Type: Extraction Operator and Bagger And Stock Handler Helper Type: ED Notes Filed: 12/13/2021 5:48 PM Note Text: Bed: 13-ED Expected date: Expected time: Means of arrival: [facility]/EMS Comments: Hip Fx fell 3 days ago [facility] Normal [facility] ED PROV NOTEon 12-13-2021 ED PROV NOTE HNO ID: [id number] Author: Wilbert Vang MD Service: Emergency Medicine Author Type: Physician Type: ED Provider Notes Filed: 12/16/2021 10:16 PM Note Text: ED Provider Note Patient Name: Claribel Stoll : 1955 SERVICE DATE: 12/13/21 History Patient presents with: Hip Pain: Patient fell three days ago at ECF. Has right leg pain. Xray states hip fracture. Claribel Stoll is a 66 y/o female presenting to the ED via EMS for left hip pain. History is limited secondary to patient's h/o dementia. According to patient, she fell at her ECF 2-3 days ago. Imaging of her left hip was obtained at that time and demonstrated an acute fracture of the left femoral neck. Here in the ED, patient complains of left hip and thigh pain. She states she is unable to bear weight or ambulate. She did her head at the time of the fall. She denies LOC. She is not reporting headache, vision changes, nausea, or vomiting. Patient also denying chest pain or SOB. No past medical history on file. No past surgical history on file. No family history on file. Social History Tobacco Use Smoking status: Former Smokeless tobacco: Not on file Substance and Sexual Activity Alcohol use: Yes Comment: occasional Drug use: Never Sexual activity: Not on file ALLERGIES No Known Allergies Review of Systems Constitutional: Negative for chills and fever. HENT: Negative for congestion and sore throat. Eyes: Negative for photophobia and visual disturbance. Respiratory: Negative for cough and shortness of breath. Cardiovascular: Negative for chest pain. Gastrointestinal: Negative for abdominal pain, diarrhea, nausea and vomiting. Genitourinary: Negative for decreased urine volume, difficulty urinating, dysuria, frequency and urgency. Musculoskeletal: Positive for arthralgias (left hip and left foot), back pain and gait problem. Negative for joint swelling, myalgias and neck pain. Skin: Negative for color change and rash. Neurological: Positive for weakness. Negative for dizziness, light-headedness, numbness and headaches. Physical Exam Vitals [12/13/21 1750] BP Pulse Temp Temp src Resp SpO2 Weight Height 138/74 88 37.3 ?C (99.1 ?F) Oral 15 (!) 92 % 68 kg (150 lb) 1.651 m (5' 5") Physical Exam Vitals and nursing note reviewed. Constitutional: General: She is not in acute distress. Appearance: She is not ill-appearing or toxic-appearing. HENT: Head: Normocephalic and atraumatic. Nose: Nose normal. Mouth/Throat: Mouth: Mucous membranes are moist. Pharynx: Oropharynx is clear. Eyes: Extraocular Movements: Extraocular movements intact. Conjunctiva/sclera: Conjunctivae normal. Pupils: Pupils are equal, round, and reactive to light. Cardiovascular: Rate and Rhythm: Normal rate and regular rhythm. Pulses: Normal pulses. Heart sounds: Normal heart sounds. Pulmonary: Effort: Pulmonary effort is normal. No respiratory distress. Breath sounds: Normal breath sounds. No wheezing. Abdominal: General: Abdomen is flat. Bowel sounds are normal. Palpations: Abdomen is soft. Tenderness: There is no abdominal tenderness. Musculoskeletal: Cervical back: Normal range of motion and neck supple. No rigidity or tenderness. Right hip: Normal. Left hip: Bony tenderness present. Decreased range of motion. Right upper leg: No deformity or bony tenderness. Left upper leg: No deformity or bony tenderness. Right lower leg: Normal. Left lower leg: Normal. Comments: Tenderness over the anterolateral aspect of left hip. No overlying warmth or ecchymosis. No obvious deformity. No swelling. Compartments are soft. Limited ROM of left hip due to pain. DP and PT pulses 2+ bilaterally. Skin: General: Skin is warm and dry. Capillary Refill: Capillary refill takes less than 2 seconds. Findings: No bruising or rash. Neurological: Mental Status: She is alert. Mental status is at baseline. Sensory: Sensation is intact. Comments: AANDOx1. Diagnostic Testing ED Labs Ordered and Reviewed - No data to display Procedures ED Course / Clinical Impression Clinical Impressions as of 12/13/212108 Closed fracture of neck of left femur, initial encounter ([facility]) COVID-19 test performed per [facility] [place] policy for suspected COVID community exposure. MDM / Disposition / Plan Patient is a 66-year-old female with history of dementia presenting to the ED via EMS for left hip pain. According to patient she fell on her left hip several days ago. Imaging studies of the left hip obtained at her living facility demonstrated an acute fracture of the left femoral neck. She was brought here to the ED for further evaluation. Upon presentation to the ED, patient's vitals are stable. She is afebrile. Heart rate 88. Blood pressure 127/108. Respirations 15. She is sitting upright in bed and does not appear to be in acute distress. HEENT exam is unremarkable. She has no e (more content not included)... Normal [facility] HISTORY PHYSICALon HISTORY PHYSICAL HNO ID: [id number] Author: Yasmany Roman MD Service: Orthopaedic Surgery Author Type: Physician Type: HANDP Filed: 04/22/2022 2:50 PM Note Text: ORTHOPAEDIC SURGERY HANDP Pt: CLARIBEL STOLL Date of Admission: 12/13/2021 Chief Complaint: L Hip Pain HPI: 66 year old female with dementia presented to [facility] ED on 12/13/2021 for evaluation of L hip pain. The patient endorses a fall with subsequent immediate and severe legt hip pain and the inability to ambulate. The patient denies head trauma and loss of consciousness. The patient denies numbness and tingling of the left lower extremity. The patient denies prior pain or injury to the left hip. The patient lives at a memory care unit and utilizes a walker for ambulation assistance at baseline. Per ED staff patient fell at her memory care unit yesterday. No past medical history on file. No past surgical history on file. Allergies: Patient has no known allergies. No current facility-administered medications for this encounter. Current Outpatient Medications Medication Sig calcium carbonate 500 mg calcium (1,250 mg) chewable tablet Take 1 tablet by mouth twice daily. cholecalciferol (VITAMIN D) 1,000 unit tab tablet Take 1 tablet by mouth once daily. levothyroxine (SYNTHROID) 50 mcg tablet Take 1 tablet by mouth DAILY (6 AM). multivitamin with folic acid (THERA, ONE DAILY) 400 mcg Take 1 tablet by mouth once daily. silver sulfADIAZINE (SILVADENE,THERMAZENE) 1 % cream Apply 1 application to affected area twice daily. No family history on file. Negative for family history of bleeding and clotting disorders. Social History Tobacco Use Smoking status: Former Substance Use Topics Alcohol use: Yes Comment: occasional Drug use: Never ROS: 10 pt ROS neg except in HPI O: Vitals: BP 127/108 Pulse 88 Temp 37.3 ?C (99.1 ?F) (Oral) Resp 15 Ht 165.1 cm (5' 5") Wt 68 kg (150 lb) SpO2 (!) 92% BMI 24.96 kg/m? Physical exam: General: AANDO x 3; NAD. Cooperative throughout entire interview. Head: Atraumatic, normocephalic Neck: Supple Chest: Unlabored breathing Cardiovascular: palpable pulses Abdomen: Soft, non-tender Pelvis: Deferred Neuro: Grossly intact Left Lower Extremity: The extremity is shortened and externally rotated. There are no gross deformities. There are no superficial abrasions, lacerations or open wounds present. There is no erythema, ecchymosis or significant swelling of the lower extremity. The patient is tender to palpation along the lateral aspect of the proximal thigh. Compartments of the thigh and leg are soft and compressible. The patient tolerates passive stretch of the digits. Formal hip range of motion was not assessed due to known femoral neck fracture. +DF/PF/EHL motor function. SILT botello/sa/sp/dp/t. BCR to the digits of the foot. Secondary Survey: No TTP of any other bony prominences or joints of the upper and lower extremities bilaterally except that described above. Labs: BMP: Sodium 139 12/13/2021 Potassium 3.9 12/13/2021 Chloride 104 12/13/2021 CO2 25 12/13/2021 BUN 10 12/13/2021 Creatinine 0.75 12/13/2021 Glucose 98 12/13/2021 CBC: WBC 12.97 12/13/2021 Hemoglobin 12.3 12/13/2021 Hematocrit 38.4 12/13/2021 Platelet Count 298 12/13/2021 COAGS: APTT 27.0 09/04/2015 INR 1.0 12/13/2021 SED RATE/CRP: Sed Rate, Westergren 36 05/12/2018 CRP 6.85 05/12/2018 Imaging: -XR of the Left hip: subcapital femoral neck fracture A/P: 66 year old female with a femoral neck fracture. -Admit to orthopaedics -Non-weightbearing of the Left lower extremity -Pain control -Ice to the left hip as needed -Regular diet; NPO at 0001 on 12/14 for OR -IVF -Follow up L femur x-rays -Pre-operative labs ordered -Shelley catheter -DVT PPX: SCDs to the bilateral lower extremities; will hold DVT chemicalPPX at this time for OR on 12/14 -Medicine consult for medical management -Consent for surgery to be obtained by brother and placed in chart -OR on 12/[address] Roman who agreed with the plan Romero Key MD Orthopaedic Surgery 12/13/2021 8:39 PM Attending Note I personally saw and examined the patient. I reviewed the resident's note. I agree with the resident's assessment and plan unless otherwise noted. Signature: Yasmany Roman MD Date: 04/22/2022 Time: 2:49 PM Normal [facility] PT panel Coag (PPP)on 2021 INR Coag (PPP) [Relative time] 1.0 {INR} Normal 0.9-1.3 [facility] Comment on above: Order Comment: Speci men Type: BLOOD SPECIMENOrdering Facility: [facility] Address: [address] [place] [phone] Result Comment: Suzan min K Antagonist (VKA) Therapeutic Range: INR 2 to 3 (Target INR of 2.5) Note: For patients treated with VKA drugs, such as warfarin, the [employer] 2012 Guideline recommends a therapeutic INR range of 2 to 3 (target INR of 2.5). This recommendation includes high-risk patients with antiphospholipid syndrome with previous arterial or venous thromboembolism, current-generation mechanical or bioprosthetic aortic heart valve replacement. Note: Patients with mechanical aortic valve replacement and additional risk factors for thromboembolic events (atrial fibrillation, previous thromboembolism, LV dysfunction, hypercoagulable conditions) or an older generation mechanical AVR (i.e., ball in-Cage) or any mechanical MVR should have a INR therapeutic range of 2.5 to 3.5 (target INR of 3). Sanam NASSAR, et al. Chest 2012, 141:7S-47S Harpreet RA, et al. [facility] 2017, 70: 252-289 Performed By: #### 3 4528-0 ####[facility]ORY[facility] [id number] PT Coag (PPP) [Time] 10.4 s Normal 9.7-13.0 [facility] Comment on above: Order Comment: Speci men Type: BLOOD SPECIMENOrdering Facility: [facility] Address: [address] [place] [address] Performed By: #### 3 4528-0 ####[facility]ATORYCLIA [id number] [address] SARS-CoV-2 RNA Resp Ql JEANA+p robeon 12-13-2021 SARS-CoV-2 (COVID-19) RNA JEANA+probe Ql (Resp) COVID 19 RESULT: SARS-CoV-2 (Agent of COVID-19) Not Detected by RT-PCR or equivalent method. This test has been authorized by FDA under an Emergency Use Authorization (EUA). Normal [facility] Comment on above: Performed By: #### 9 4500-6 ####[facility]ATORYCLIA [id number] [address] TYPE + SCREENon 12-13-2021 ABO AB Normal [facility] Comment on above: Order Comment: Speci men Type: BLOOD SPECIMEN [facility] Address: [address] [place] [address] Performed By: #### T SCR #### [facility] CLIA [id number] [address] HISTORICAL AB SCR STATUS Negative Normal [facility] Comment on above: Order Comment: Speci men Type: BLOOD SPECIMEN [facility] Address: [address] [place] [address] Performed By: #### T SCR #### [facility] CLIA [id number] [address] Rh Nom (Bld) Positive Normal [facility] Comment on above: Order Comment: Speci men Type: BLOOD SPECIMEN [facility] Address: [address] [place] [address] Performed By: #### T SCR #### [facility] CLIA [id number] [address] [place] [id number] [facility] TYPE AND SCREEN EXPIRATION 12/16/2021 23:59 Normal [facility] Comment on above: Order Comment: Speci men Type: BLOOD SPECIMEN [facility] Address: [address] [place] [address] Performed By: #### T SCR #### [facility] CLIA [id number] [address] [place] [id number] [facility] XR CHEST 2V FRONTAL/LATon XR CHEST 2V FRONTAL/LAT * * *Final Repor t* * * DATE OF EXAM: Dec 13 2021 8:05PM [id number] - XR CHEST 2V FRONTAL/LAT / PROCEDURE REASON: Chest pain, nonspecific * * * * Physician Interpretation * * * * LEFT HIP X-RAY SERIES CLINICAL HISTORY: Fracture, hip (accession [id number]), Chest pain, nonspecific (accession [id number]) TECHNIQUE: AP pelvis, left hip true AP and frog-leg lateral view COMPARISON: 09/04/2015 RESULT: Cortical discontinuity at the lateral aspect of the left femoral head neck junction. There is also a faint band of sclerosis projecting over the subcapital segment. Findings suspicious for an impacted fracture. No significant narrowing of the bilateral hip joint spaces. CHEST X-RAY CLINICAL HISTORY: Fracture, hip (accession [id number]), Chest pain, nonspecific (accession [id number]) TECHNIQUE: Upright frontal and lateral views. COMPARISON: 09/04/2015 RESULT: Heart/mediastinum: Within normal limits. Lungs/pleura: Clear. No pleural fluid or pneumothorax. Bones/soft tissues: Left proximal humerus chronic fracture deformity. Lines/tubes/devices: None visualized. IMPRESSION: Pelvis and left hip: Suspect femoral neck subcapital fracture with impaction. Recommend CT scanning for confirmation. CHEST: No active disease. Miter Grinder Operator: YAUSH Transcribe Date/Time: Dec 13 2021 8:19P Dictated by : SAVANNA SILVERMAN MD This examination was interpreted and the report reviewed and electronically signed by: SAVANNA SILVERMAN MD on Dec 13 2021 8:24PM EST [id number] Normal [facility] XR HIP 3V PELV+ AP/LAT LTon 12-13-2021 XR HIP 3V PELV+ AP/LAT LT * * *Final Report* * * DATE OF EXAM: Dec 13 2021 8:05PM [id number] - XR HIP 3V PELV+ AP/LAT LT / PROCEDURE REASON: Fracture, hip * * * * Physician Interpretation * * * * LEFT HIP X-RAY SERIES CLINICAL HISTORY: Fracture, hip (accession [id number]), Chest pain, nonspecific (accession [id number]) TECHNIQUE: AP pelvis, left hip true AP and frog-leg lateral view COMPARISON: 09/04/2015 RESULT: Cortical discontinuity at the lateral aspect of the left femoral head neck junction. There is also a faint band of sclerosis projecting over the subcapital segment. Findings suspicious for an impacted fracture. No significant narrowing of the bilateral hip joint spaces. CHEST X-RAY CLINICAL HISTORY: Fracture, hip (accession [id number]), Chest pain, nonspecific (accession [id number]) TECHNIQUE: Upright frontal and lateral views. COMPARISON: 09/04/2015 RESULT: Heart/mediastinum: Within normal limits. Lungs/pleura: Clear. No pleural fluid or pneumothorax. Bones/soft tissues: Left proximal humerus chronic fracture deformity. Lines/tubes/devices: None visualized. IMPRESSION: Pelvis and left hip: Suspect femoral neck subcapital fracture with impaction. Recommend CT scanning for confirmation. CHEST: No active disease. Miter Grinder Operator: AYUSH Transcribe Date/Time: Dec 13 2021 8:19P Dictated by : SAVANNA SILVERMAN MD This examination was interpreted and the report reviewed and electronically signed by: SAVANNA SILVERMAN MD on Dec 13 2021 8:24PM EST [id number] Normal [facility] No Panel Informationon 08-06 Urine Microalbumin/Creatinine Ratio [facility] Work Phone: Comment on above: Test not performed Thin prep Papanicolaou smear with manual screeningon 08-06-2021 Thin prep Papanicolaou smear with manual screening < 5.0 mg/L NO RANGE EST. [facility] Work Phone: Urine creatinine measurement (mass/volume)on 08-06-2021 Creatinine (U) [Mass/Vol] 27.50 mg/dL NO RANGE EST. [facility] Work Phone: Basophil percentageon 2021 Bilirubin [Mass/Vol] 0.40 mg/dL 0.20-1.00 [facility] Work Phone: [phone] Comment on above: For patients on eltr ombopag therapy, use of Dimension [place] TBIL is not recommended. Chloride [Moles/Vol] 108 mmol/L 98-107 [facility] Work Phone: [phone] Cholesterol [Mass/Vol] 123 mg/dL <200 [facility] Work Phone: [phone] Comment on above: <200 mg/dL Desirable 200-240 mg/dL Borderline >240 mg/dL High Risk Glucose [Mass/Vol] 94 mg/dL 74-106 [facility] Work Phone: [phone] Potassium [Moles/Vol] 4.2 mmol/L 3.5-5.1 [facility] Work Phone: [phone] Protein [Mass/Vol] 7.0 g/dL 6.4-8.2 [facility] Work Phone: [phone] Sodium [Moles/Vol] 140 mmol/L 136-145 [facility] Work Phone: [phone] Triglyceride [Mass/Vol] 49 mg/dL <199 [facility] Work Phone: [phone] Comment on above: The drugs N-Acetylcy steine and Metamizole may falsely depress this assay.Serum Triglycerides Reference Interval Normal <150 mg/dL Borderline high 150 - 199 mg/dL High 200 - 499 mg/dL Very High > or = 500 mg/dL WBC (Bld) [#/Vol] 8.4 10*3/uL 4.4-11.0 [facility] Work Phone: [phone] Blood erythrocytes count (nu mber/volume)on 07-04-2021 RBC (Bld) [#/Vol] 3.88 10*6/uL 4.2-5.4 [facility] Work Phone: [phone] Blood hemoglobin measurement (mass/volume)on 07-04-2021 Hemoglobin (Bld) [Mass/Vol] 11.6 g/dL 12.0-15.0 [facility] Work Phone: [phone] Blood platelet mean volumeon 07-04-2021 Platelet mean volume (Bld) [Entitic vol] 10.4 fL 6.2-12.0 [facility] Work Phone: [phone] Determination of erythrocyte mean corpuscular volume (MCV)on 07-04-2021 MCV (RBC) [Entitic vol] 94.3 fL 81-99 [facility] Work Phone: [phone] Hematocrit Auto (Bld) [Volum e fraction]on 07-04-2021 Hematocrit (Bld) [Volume fraction] 36.6 % 37-47 [facility] Work Phone: Laboratory - Chemistry and C hemistry - challengeon 07-04-2021 ALP [Catalytic activity/Vol] 86 U/L 45-117 [facility] Work Phone: ALT [Catalytic activity/Vol] 17 U/L 13-56 [facility] Work Phone: [phone] CO2 [Moles/Vol] 28.0 mmol/L 21.0-32.0 [facility] Work Phone: [phone] Globulin (S) [Mass/Vol] 3.9 g/dL 2.2-4.2 [facility] Work Phone: [phone] Magnesium [Mass/Vol] 2.3 mg/dL 1.6-2.6 [facility] Work Phone: [phone] Urea nitrogen/Creatinine [Mass ratio] 15.6 mg/mg 10-20 [facility] Work Phone: [phone] Laboratory - Hematology and Cell countson 07-04-2021 Erythrocyte distribution width (RBC) [Entitic vol] 44.7 fL 35.1-43.9 [facility] Work Phone: Erythrocyte distribution width (RBC) [Ratio] 12.9 % 11.6-14.6 [facility] Work Phone: MCH (RBC) [Entitic mass] 29.9 pg 27.0-32.0 [facility] Work Phone: [phone] MCHC Auto (RBC) [Mass/Vol]on 07-04-2021 MCHC (RBC) [Mass/Vol] 31.7 g/dL 32-36 [facility] Work Phone: No Panel Informationon 07-04 Estimated GFR (MDRD) Amer 88 mL/min >60 [facility] Work Phone: Comment on above: GFR Calc Estimated GFR (MDRD) Non-Af Amer 73 mL/min >60 [facility] Work Phone: Comment on above: Non- GFR Calc Thyroid Stimulating Hormone (TSH) 1.99 uIU/mL 0.358-3.74 [facility] Work Phone: Vitamin D 25-Hydroxy 24.4 ng/mL [facility] Work Phone: Comment on above: Vitamin D 25(OH) Sta tus Range Deficiency <20 ng/mL (50nmol/L) Insufficiency 20 - 30 ng/mL (50 - 75 nmol/L) Sufficiency 30 - 100 ng/mL (75 - 250 nmol/L) Toxicity >100 ng/mL (>250 nmol/L) Platelets bldon 07-04-2021 Platelets (Bld) [#/Vol] 330 10*3/uL 150-450 [facility] Work Phone: [phone] Serum or plasma albumin raul urement (mass/volume)on 07-04-2021 Albumin [Mass/Vol] 3.1 g/dL 3.2-5.0 [facility] Work Phone: [phone] Serum or plasma albumin/glob ulin mass ratioon 07-04-2021 Albumin/Globulin [Mass ratio] 0.8 {ratio} 0.9-2.4 [facility] Work Phone: Serum or plasma calcium raul urement (mass/volume)on 07-04-2021 Calcium [Mass/Vol] 8.8 mg/dL 8.5-10.1 [facility] Work Phone: Serum or plasma cholesterol in HDL measurement (mass/volume)on 07-04-2021 Cholesterol in HDL [Mass/Vol] 63 mg/dL >40 [facility] Work Phone: Comment on above: The drugs N-Acetylcy steine and Metamizole may falsely depress this assay. Reference Range HDL <40 mg/dL Low HDL Cholesterol HDL >or= 60 mg/dL High HDL Cholesterol Serum or plasma cholesterol in VLDL measurement (mass/volume)on 07-04-2021 Cholesterol in VLDL [Mass/Vol] 10 mg/dL 5-40 [facility] Work Phone: Serum or plasma creatinine m easurement (mass/volume)on 07-04-2021 Creatinine [Mass/Vol] 0.83 mg/dL 0.55-1.02 [facility] Work Phone: Comment on above: The validity of the calculated GFR & GFRAA in patients over 70 years has not been determined. Clinical correlation is essential. Serum or plasma low density lipoprotein (LDL) cholesterol measurement (mass/volume)on 07-04-2021 Cholesterol in LDL [Mass/Vol] 50 mg/dL 0-130 [facility] Work Phone: [phone] Serum or plasma urea nitroge n measurement (mass/volume)on 07-04-2021 Urea nitrogen [Mass/Vol] 13 mg/dL 7-18 [facility] Work Phone: [phone] Thin prep Papanicolaou smear with manual screeningon 07-04-2021 Thin prep Papanicolaou smear with manual screening 16 U/L 15-37 [facility] Work Phone: [phone] Thin prep Papanicolaou smear with manual screening 4 5-15 [facility] Work Phone: [phone] Whole blood hemoglobin A1c/t otal hemoglobin ratio (mass fraction)on 07-04-2021 HbA1c (Bld) [Mass fraction] 5.3 % 3.8-5.6 [facility] Work Phone: Comment on above: Normal < 5.7 % Predi abetic 5.7 - 6.4 % Diabetic >or= 6.5 % Please note range changes. Basophil percentageon 2021 Cholesterol [Mass/Vol] 110 mg/dL <200 [facility] Work Phone: Comment on above: <200 mg/dL Desirable 200-240 mg/dL Borderline >240 mg/dL High Risk Triglyceride [Mass/Vol] 59 mg/dL <199 [facility] Work Phone: Comment on above: The drugs N-Acetylcy steine and Metamizole may falsely depress this assay.Serum Triglycerides Reference Interval Normal <150 mg/dL Borderline high 150 - 199 mg/dL High 200 - 499 mg/dL Very High > or = 500 mg/dL Serum or plasma cholesterol in HDL measurement (mass/volume)on 05-31-2021 Cholesterol in HDL [Mass/Vol] 59 mg/dL >40 [facility] Work Phone: Comment on above: The drugs N-Acetylcy steine and Metamizole may falsely depress this assay. Reference Range HDL <40 mg/dL Low HDL Cholesterol HDL >or= 60 mg/dL High HDL Cholesterol Serum or plasma cholesterol in VLDL measurement (mass/volume)on 05-31-2021 Cholesterol in VLDL [Mass/Vol] 12 mg/dL 5-40 [facility] Work Phone: Serum or plasma low density lipoprotein (LDL) cholesterol measurement (mass/volume)on 05-31-2021 Cholesterol in LDL [Mass/Vol] 39 mg/dL 0-130 [facility] Work Phone: Basophil percentageon 2021 Ammonia (P) [Moles/Vol] 42.0 umol/L 11-32 [facility] Work Phone: Bilirubin [Mass/Vol] 0.40 mg/dL 0.20-1.00 [facility] Work Phone: Comment on above: For patients on eltr ombopag therapy, use of Dimension [place] TBIL is not recommended. Chloride [Moles/Vol] 107 mmol/L 98-107 [facility] Work Phone: [phone] Glucose [Mass/Vol] 92 mg/dL 74-106 [facility] Work Phone: [phone] Potassium [Moles/Vol] 4.2 mmol/L 3.5-5.1 [facility] Work Phone: [phone] Protein [Mass/Vol] 6.9 g/dL 6.4-8.2 [facility] Work Phone: [phone] Sodium [Moles/Vol] 139 mmol/L 136-145 [facility] Work Phone: [phone] WBC (Bld) [#/Vol] 9.5 10*3/uL 4.4-11.0 [facility] Work Phone: [phone] Bilirubin Test strip Ql (U)o n 04-23-2021 Bilirubin Ql (U) Negative Negative [facility] Work Phone: [phone] Blood erythrocytes count (nu mber/volume)on 04-23-2021 RBC (Bld) [#/Vol] 3.82 10*6/uL 4.2-5.4 [facility] Work Phone: [phone] Blood hemoglobin measurement (mass/volume)on 04-23-2021 Hemoglobin (Bld) [Mass/Vol] 11.5 g/dL 12.0-15.0 [facility] Work Phone: [phone] Blood platelet mean volumeon 04-23-2021 Platelet mean volume (Bld) [Entitic vol] 10.0 fL 6.2-12.0 [facility] Work Phone: [phone] Culture, urineon 04-23-2021 Bacteria identified Cx Nom (U) GNR lactose wick and base assembler [facility] Work Phone: [phone] Bacteria identified Cx Nom (U) Negative [facility] Work Phone: [phone] Determination of erythrocyte mean corpuscular volume (MCV)on 04-23-2021 MCV (RBC) [Entitic vol] 92.4 fL 81-99 [facility] Work Phone: Direct bilirubinon Bilirubin.direct [Mass/Vol] 0.12 mg/dL 0.00-0.30 [facility] Work Phone: Hematocrit Auto (Bld) [Volum e fraction]on 04-23-2021 Hematocrit (Bld) [Volume fraction] 35.3 % 37-47 [facility] Work Phone: Ketones Test strip Ql (U)on 04-23-2021 Ketones Ql (U) Negative Negative [facility] Work Phone: Laboratory - Chemistry and C hemistry - challengeon 04-23-2021 ALP [Catalytic activity/Vol] 90 U/L 45-117 [facility] Work Phone: ALT [Catalytic activity/Vol] 12 U/L 13-56 [facility] Work Phone: [phone] CO2 [Moles/Vol] 26.0 mmol/L 21.0-32.0 [facility] Work Phone: Globulin (S) [Mass/Vol] 3.9 g/dL 2.2-4.2 [facility] Work Phone: [phone] Urea nitrogen/Creatinine [Mass ratio] 16.8 mg/mg 10-20 [facility] Work Phone: [phone] Laboratory - Hematology and Cell countson 04-23-2021 Erythrocyte distribution width (RBC) [Entitic vol] 43.8 fL 35.1-43.9 [facility] Work Phone: Erythrocyte distribution width (RBC) [Ratio] 13.0 % 11.6-14.6 [facility] Work Phone: [phone] MCH (RBC) [Entitic mass] 30.1 pg 27.0-32.0 [facility] Work Phone: MCHC Auto (RBC) [Mass/Vol]on 04-23-2021 MCHC (RBC) [Mass/Vol] 32.6 g/dL 32-36 [facility] Work Phone: Nitrite Test strip Ql (U)on 04-23-2021 Nitrite Ql (U) Negative Negative [facility] Work Phone: No Panel Informationon 04-23 Estimated GFR (MDRD) Amer 96 mL/min >60 [facility] Work Phone: Comment on above: GFR Calc Estimated GFR (MDRD) Non-Af Amer 79 mL/min >60 [facility] Work Phone: Comment on above: Non- GFR Calc Platelets bldon 04-23-2021 Platelets (Bld) [#/Vol] 309 10*3/uL 150-450 [facility] Work Phone: Protein Test strip Ql (U)on 04-23-2021 Protein Ql (U) Negative Negative [facility] Work Phone: Serum or plasma albumin raul urement (mass/volume)on 04-23-2021 Albumin [Mass/Vol] 3.0 g/dL 3.2-5.0 [facility] Work Phone: Serum or plasma calcium raul urement (mass/volume)on 04-23-2021 Calcium [Mass/Vol] 8.4 mg/dL 8.5-10.1 [facility] Work Phone: Serum or plasma creatinine m easurement (mass/volume)on 04-23-2021 Creatinine [Mass/Vol] 0.77 mg/dL 0.55-1.02 [facility] Work Phone: Comment on above: The validity of the calculated GFR & GFRAA in patients over 70 years has not been determined. Clinical correlation is essential. Serum or plasma urea nitroge n measurement (mass/volume)on 04-23-2021 Urea nitrogen [Mass/Vol] 13 mg/dL 7-18 [facility] Work Phone: Thin prep Papanicolaou smear with manual screeningon 04-23-2021 Thin prep Papanicolaou smear with manual screening 12 U/L 15-37 [facility] Work Phone: Thin prep Papanicolaou smear with manual screening 6 5-15 [facility] Work Phone: Urine blood detectionon 03-0 RBC Ql (U) Negative Negative [facility] Work Phone: Urine clarityon 04-23-2021 Clarity (U) Sl. Cloudy Clear [facility] Work Phone: Urine color determinationon 04-23-2021 Color (U) Yellow Yellow [facility] Work Phone: Urine glucose detectionon Glucose Ql (U) Normal mg/dl Normal [facility] Work Phone: Urine leukocyte esterase det ection by dipstickon 04-23-2021 Leukocyte esterase Test strip Ql (U) Negative Negative [facility] Work Phone: Urine pHon 04-23-2021 pH (U) 7.0 [pH] 5.0 - 8.0 [facility] Work Phone: Urine specific gravity measu rementon 04-23-2021 Specific gravity (U) [Rel density] 1.010 1.002-1.030 [facility] Work Phone: Urobilinogen Auto test strip Ql (U)on 04-23-2021 Urobilinogen Ql (U) Normal mg/dl Normal [facility] Work Phone: RPRon 05-20-2018 Re[place] Ab RPR Ql (S) Non-reactive Normal Nonreactive [facility] Comment on above: Performed By: #### P 14 #### [facility] [address] [place] [address] Free Thyroxineon 05-18-2018 T4 free mass conc 1.02 ng/dL Normal 0.76-1.46 [facility] Comment on above: Performed By: #### P 14 #### [facility] [address] [place], [place] [address] Potassium Bloodon 05-18-2018 Potassium molar conc 3.5 mmol/L Normal 3.5-5.1 [facility] Comment on above: Performed By: #### P 14 #### [facility] [address] [place] [address] Hemogram/Diffon 05-17-2018 Abs Immature Grans 0.02 thou/cmm Normal 0.00-0.[address] [facility] Comment on above: Performed By: #### P 14 #### [facility] [address] [place] [address] Abs. Baso 0.08 thou/cmm Normal 0.01-0.08 [facility] Comment on above: Performed By: #### P 14 #### [facility] [address] [place] [address] Abs. [place] 0.81 thou/cmm High 0.27-0.70 [facility] Comment on above: Performed By: #### P 14 #### [facility] [address] [place] [address] Abs. Neut (ANC) 2.38 thou/cmm Normal 1.56-6.13 [facility] Comment on above: Performed By: #### P 14 #### [facility] [address] [place] [address] Basophils/100 WBC (Bld) 1.2 % Normal [facility] Comment on above: Performed By: #### P 14 #### [facility] [address] [place] [address] Eosinophils #/vol (Bld) 0.16 thou/cmm Normal 0.00-0.31 [facility] Comment on above: Performed By: #### P 14 #### [facility] [address] [place] [address] Eosinophils/100 WBC (Bld) 2.5 % Normal [facility] Comment on above: Performed By: #### P 14 #### [facility] [address] [place] [address] Erythrocyte distribution width Ratio (RBC) 14.2 % Normal 11.7-14.4 [facility] Comment on above: Performed By: #### P 14 #### [facility] [address] [place] [address] Hematocrit Volume Fraction (Bld) 26.9 % Low 34.1-44.9 [facility] Comment on above: Performed By: #### P 14 #### [facility] [address] [place] [address] Hemoglobin mass conc (Bld) 9.0 g/dL Low 11.2-15.7 [facility] Comment on above: Performed By: #### P 14 #### [facility] [address] [place] [address] Immature Grans 0.30 % Normal [facility] Comment on above: Performed By: #### P 14 #### [facility] [address] [place] [address] Lymphocytes #/vol (Bld) 2.96 thou/cmm Normal 1.18-3.74 [facility] Comment on above: Performed By: #### P 14 #### [facility] [address] [place] [address] Lymphocytes/100 WBC (Bld) 46.2 % Normal [facility] Comment on above: Performed By: #### P 14 #### [facility] [address] [place] [address] MCH Entitic mass (RBC) 36.0 pg High 25.6-32.2 [facility] Comment on above: Performed By: #### P 14 #### [facility] [address] [place] [address] MCHC mass conc (RBC) 33.5 % Normal 31.6-34.8 [facility] Comment on above: Performed By: #### P 14 #### [facility] [address] [place] [address] MCV Entitic volume (RBC) 107.6 fL High 79.4-94.8 [facility] Comment on above: Performed By: #### P 14 #### [facility] [address] [place] [address] Monocytes/100 WBC (Bld) 12.6 % Normal [facility] Comment on above: Performed By: #### P 14 #### [facility] [address] [place] [address] Platelet mean volume Entitic volume (Bld) 8.6 fL Low 9.4-12.3 [facility] Comment on above: Performed By: #### P 14 #### [facility] [facility] [address] [place] [address] Platelets #/vol (Bld) 298 thou/cmm Normal 182-369 [facility] Comment on above: Performed By: #### P 14 #### [facility] [address] [address] RBC #/vol (Bld) 2.50 mil/cmm Low 3.93-5.22 [facility] Comment on above: Performed By: #### P 14 #### [facility] [address] [place] [address] RDW SD 55.8 fl High 36.4-46.3 [facility] Comment on above: Performed By: #### P 14 #### [facility] [address] [place] [address] Seg Neutrophil 37.2 % Normal [facility] Comment on above: Performed By: #### P 14 #### [facility] [address] [place] [address] WBC #/vol (Bld) 6.41 thou/cmm Normal 3.98-10.04 [facility] Comment on above: Performed By: #### P 14 #### [facility] [address] [place] [address] MDRD GFRon 05-17-2018 GFR/1.73 sq M predicted among non-blacks MDRD vol rate/area (S/P/Bld) mL/min/{1.73_m2} Normal >60mL/min/1.7 3m2 [facility] Comment on above: Result Comment: If t he patient is , multiply the result by 1.210. Performed By: #### G FR #### [facility] [address] [place] [address] Renal Panelon 05-17-2018 Creatinine mass conc 0.50 mg/dL Low 0.51-0.95 [facility] Comment on above: Performed By: #### P 14 #### [facility] [address] [place], [place] [address] Phosphate mass conc 2.7 mg/dL Normal 2.5-4.9 [facility] Comment on above: Performed By: #### P 14 #### [facility] [address] [place], [place] [address] Albumin mass conc 1.2 g/dL Low 3.4-5.0 [facility] Comment on above: Performed By: #### P 14 #### [facility] [address] [place], [place] [address] CO2 molar conc 24 mmol/L Normal 21-32 [facility] Comment on above: Performed By: #### P 14 #### [facility] [address] [place], [place] [address] Glucose mass conc 73 mg/dL Normal 70-99 [facility] Comment on above: Performed By: #### P 14 #### [facility] [address] [place], [place] [address] Calcium mass conc 7.5 mg/dL Low 8.5-10.1 [facility] Comment on above: Performed By: #### P 14 #### [facility] [address] [place], [place] [address] Urea nitrogen mass conc 2 mg/dL Low 7-18 [facility] Comment on above: Performed By: #### P 14 #### [facility] [address] [place], [place] [address] Chloride molar conc 107 mmol/L Normal 98-107 [facility] Comment on above: Performed By: #### P 14 #### [facility] [address] [place], [place] [address] Potassium molar conc 3.2 mmol/L Low 3.5-5.1 [facility] Comment on above: Performed By: #### P 14 #### [facility] [address] [place] [address] Sodium molar conc 137 mmol/L Normal 136-145 [facility] Comment on above: Performed By: #### P 14 #### [facility] [address] [place], [place] [address] TSH, 3rd generationon 2018 TSH, 3rd generation 9.710 uIU/mL High 0.358-3.740 [facility] Comment on above: Performed By: #### P 14 #### [facility] [address] [place] [address] Basic Panelon 05-15-2018 Creatinine mass conc 0.56 mg/dL Normal 0.51-0.95 [facility] Comment on above: Performed By: #### P 14 #### [facility] [address] [place] [address] Anion gap molar conc 13 mmol/L Normal 8-16 [facility] Comment on above: Performed By: #### P 14 #### [facility] [address] [place] [address] Calcium mass conc 7.5 mg/dL Low 8.5-10.1 [facility] Comment on above: Performed By: #### P 14 #### [facility] [address] [place] [address] CO2 molar conc 19 mmol/L Low 21-32 [facility] Comment on above: Performed By: #### P 14 #### [facility] [address] [place] [address] Glucose mass conc 56 mg/dL Low 70-99 [facility] Comment on above: Performed By: #### P 14 #### [facility] [address] [place] [address] Urea nitrogen mass conc 3 mg/dL Low 7-18 [facility] Comment on above: Performed By: #### P 14 #### [facility] [address] [place] [address] Chloride molar conc 110 mmol/L High 98-107 [facility] Comment on above: Performed By: #### P 14 #### [facility] [address] [place] [address] Potassium molar conc 3.8 mmol/L Normal 3.5-5.1 [facility] Comment on above: Performed By: #### P 14 #### [facility] [address] [place] [address] Sodium molar conc 138 mmol/L Normal 136-145 [facility] Comment on above: Performed By: #### P 14 #### [facility] [address] [place] [address] Basic Panelon 05-14-2018 Creatinine mass conc 0.65 mg/dL Normal 0.51-0.95 [facility] Comment on above: Performed By: #### P 14 #### [facility] [address] [place] [address] Anion gap molar conc 10 mmol/L Normal 8-16 [facility] Comment on above: Performed By: #### P 14 #### [facility] [address] [place] [address] CO2 molar conc 21 mmol/L Normal 21-32 [facility] Comment on above: Performed By: #### P 14 #### [facility] [address] [place] [address] Glucose mass conc 59 mg/dL Low 70-99 [facility] Comment on above: Performed By: #### P 14 #### [facility] [address] [place] [address] Urea nitrogen mass conc 3 mg/dL Low 7-18 [facility] Comment on above: Performed By: #### P 14 #### [facility] [address] [place] [address] Calcium mass conc 7.7 mg/dL Low 8.5-10.1 [facility] Comment on above: Performed By: #### P 14 #### [facility] [address] [place] [address] Chloride molar conc 111 mmol/L High 98-107 [facility] Comment on above: Performed By: #### P 14 #### [facility] [address] [place] [address] Potassium molar conc 3.1 mmol/L Low 3.5-5.1 [facility] Comment on above: Performed By: #### P 14 #### [facility] [address] [place] [address] Sodium molar conc 139 mmol/L Normal 136-145 [facility] Comment on above: Performed By: #### P 14 #### [facility] [address] [place] [address] Basic Panelon 05-13-2018 Creatinine mass conc 0.71 mg/dL Normal 0.51-0.95 [facility] Comment on above: Performed By: #### P 14 #### [facility] [address] [place] [address] Anion gap molar conc 11 mmol/L Normal 8-16 [facility] Comment on above: Performed By: #### P 14 #### [facility] [address] [place] [address] Calcium mass conc 7.6 mg/dL Low 8.5-10.1 [facility] Comment on above: Performed By: #### P 14 #### [facility] [address] [place] [address] CO2 molar conc 20 mmol/L Low 21-32 [facility] Comment on above: Performed By: #### P 14 #### [facility] [address] [place] [address] Glucose mass conc 81 mg/dL Normal 70-99 [facility] Comment on above: Performed By: #### P 14 #### [facility] [address] [place] [address] Urea nitrogen mass conc 3 mg/dL Low 7-18 [facility] Comment on above: Performed By: #### P 14 #### [facility] [address] [place] [address] Chloride molar conc 109 mmol/L High 98-107 [facility] Comment on above: Performed By: #### P 14 #### [facility] [address] [place] [address] Potassium molar conc 3.4 mmol/L Low 3.5-5.1 [facility] Comment on above: Performed By: #### P 14 #### [facility] [address] [place] [address] Sodium molar conc 137 mmol/L Normal 136-145 [facility] Comment on above: Performed By: #### P 14 #### [facility] [address] [place] [address] Hemogramon 05-13-2018 Erythrocyte distribution width Ratio (RBC) 13.8 % Normal 11.7-14.4 [facility] Comment on above: Performed By: #### C BCD1 #### [facility] [address] [place] [address] Hematocrit Volume Fraction (Bld) 28.9 % Low 34.1-44.9 [facility] Comment on above: Performed By: #### C BCD1 #### [facility] [address] [place] [address] Hemoglobin mass conc (Bld) 9.5 g/dL Low 11.2-15.7 [facility] Comment on above: Performed By: #### C BCD1 #### [facility] [address] [place] [address] MCH Entitic mass (RBC) 36.5 pg High 25.6-32.2 [facility] Comment on above: Performed By: #### C BCD1 #### [facility] [address] [place] [address] MCHC mass conc (RBC) 32.9 % Normal 31.6-34.8 [facility] Comment on above: Performed By: #### C BCD1 #### [facility] [address] [place] [address] MCV Entitic volume (RBC) 111.2 fL High 79.4-94.8 [facility] Comment on above: Performed By: #### C BCD1 #### [place] [address] Platelet mean volume Entitic volume (Bld) 8.3 fL Low 9.4-12.3 [facility] Comment on above: Performed By: #### C BCD1 #### [facility] [address] [place] [address] Platelets #/vol (Bld) 308 thou/cmm Normal 182-369 [facility] Comment on above: Performed By: #### C BCD1 #### [facility] [address] [place] [address] RBC #/vol (Bld) 2.60 mil/cmm Low 3.93-5.22 [facility] Comment on above: Performed By: #### C BCD1 #### [address] [place], [place] [address] RDW SD 57.0 fl High 36.4-46.3 [facility] Comment on above: Performed By: #### C BCD1 #### [facility] [address] [place], [place] [address] WBC #/vol (Bld) 7.55 thou/cmm Normal 3.98-10.04 [facility] Comment on above: Performed By: #### C BCD1 #### [facility] [address] [place], [place] [address] Hepatic Panelon 05-13-2018 ALP enzyme act/vol 171 U/L High 46-116 [facility] Comment on above: Performed By: #### C BCD1 #### [facility] [address] [place], [place] [address] Protein mass conc 5.3 g/dL Low 6.4-8.2 [facility] Comment on above: Performed By: #### C BCD1 #### [facility] [address] [place], [place] [address] Bilirubin mass conc 0.7 mg/dL Normal 0.2-1.0 [facility] Comment on above: Performed By: #### C BCD1 #### [facility] [address] [place], [place] [address] ALT enzyme act/vol 22 U/L Normal 12-78 [facility] Comment on above: Performed By: #### C BCD1 #### [facility] [address] [place], [place] [address] AST enzyme act/vol 44 U/L High 9-37 [facility] Comment on above: Performed By: #### C BCD1 #### [facility] [address] [place], [place] [address] Bilirubin mass conc 0.45 mg/dL High 0.00-0.20 [facility] Comment on above: Performed By: #### C BCD1 #### [facility] [address] [place], [place] [address] Albumin mass conc 1.3 g/dL Low 3.4-5.0 [facility] Comment on above: Performed By: #### C BCD1 #### [facility] [address] [place] [address] Basic Panelon 05-12-2018 Creatinine mass conc 0.68 mg/dL Normal 0.51-0.95 [facility] Comment on above: Performed By: #### C BCD1 #### [facility] [address] [place] [address] Anion gap molar conc 13 mmol/L Normal 8-16 [facility] Comment on above: Performed By: #### C BCD1 #### [facility] [address] [place] [address] CO2 molar conc 20 mmol/L Low 21-32 [facility] Comment on above: Performed By: #### C BCD1 #### [facility] [address] [place], [place] [address] Glucose mass conc 94 mg/dL Normal 70-99 [facility] Comment on above: Performed By: #### C BCD1 #### [facility] [address] [place] [address] Urea nitrogen mass conc 4 mg/dL Low 7-18 [facility] Comment on above: Performed By: #### C BCD1 #### [facility] [address] [place] [address] Calcium mass conc 7.5 mg/dL Low 8.5-10.1 [facility] Comment on above: Performed By: #### C BCD1 #### [facility] [address] [place] [address] Chloride molar conc 104 mmol/L Normal 98-107 [facility] Comment on above: Performed By: #### C BCD1 #### [facility] [address] [place] [address] Potassium molar conc 2.8 mmol/L Low 3.5-5.1 [facility] Comment on above: Performed By: #### C BCD1 #### [facility] [address] [place] [address] Sodium molar conc 134 mmol/L Low 136-145 [facility] Comment on above: Performed By: #### C BCD1 #### [facility] [address] [place] [address] CRPon 05-12-2018 CRP mass conc 6.85 mg/dL High 0.00-0.30 [facility] Comment on above: Performed By: #### C BCD1 #### [facility] [address] [place] [address] Folateon 05-12-2018 Folate 6.80 ng/mL Normal 3.10-17.50 [facility] Comment on above: Performed By: #### C BCD1 #### [facility] [address] [place] [address] Hemogramon 05-12-2018 Erythrocyte distribution width Ratio (RBC) 13.6 % Normal 11.7-14.4 [facility] Comment on above: Performed By: #### C BCD1 #### [facility] [address] [place] [address] Hematocrit Volume Fraction (Bld) 28.6 % Low 34.1-44.9 [facility] Comment on above: Performed By: #### C BCD1 #### [facility] [address] [place] [address] Hemoglobin mass conc (Bld) 9.5 g/dL Low 11.2-15.7 [facility] Comment on above: Performed By: #### C BCD1 #### [facility] [address] [place] [address] MCH Entitic mass (RBC) 36.1 pg High 25.6-32.2 [facility] Comment on above: Performed By: #### C BCD1 #### [facility] [address] [place] [address] MCHC mass conc (RBC) 33.2 % Normal 31.6-34.8 [facility] Comment on above: Performed By: #### C BCD1 #### [facility] [address] [place] [address] MCV Entitic volume (RBC) 108.7 fL High 79.4-94.8 [facility] Comment on above: Performed By: #### C BCD1 #### [facility] [address] [place] [address] Platelet mean volume Entitic volume (Bld) 8.3 fL Low 9.4-12.3 [facility] Comment on above: Performed By: #### C BCD1 #### [facility] [address] [place] [address] Platelets #/vol (Bld) 310 thou/cmm Normal 182-369 [facility] Comment on above: Performed By: #### C BCD1 #### [facility] [address] [place] [address] RBC #/vol (Bld) 2.63 mil/cmm Low 3.93-5.22 [facility] Comment on above: Performed By: #### C BCD1 #### [facility] [address] [place] [address] RDW SD 54.0 fl High 36.4-46.3 [facility] Comment on above: Performed By: #### C BCD1 #### [facility] [address] [place] [address] WBC #/vol (Bld) 10.75 thou/cmm High 3.98-10.04 [facility] Comment on above: Performed By: #### C BCD1 #### [facility] [address] [place] [address] Sed Rateon 05-12-2018 Sed Rate 36 mm/hr High 0-20 [facility] Comment on above: Performed By: #### C BCD1 #### [facility] [address] [place] [address] Vancomycin,Randomon 05-13-19 19 INR Coag RelTime (Bld) 20.8 mg/L Normal [facility] Comment on above: Result Comment: Trou gh 10.0-20.0 mg/L Peak 18.0-40.0 mg/L Performed By: #### C BCD1 #### [facility] [address] [place] [address] Vitamin B12on 05-12-2018 Cobalamin (Vitamin B12) mass conc 1456 pg/mL High 193-986 [facility] Comment on above: Performed By: #### C BCD1 #### [place] [address] Basic Panelon 05-11-2018 Creatinine mass conc 0.36 mg/dL Low 0.51-0.95 [facility] Comment on above: Performed By: #### P 8 #### [facility] [address] [place], [place] [address] Anion gap molar conc 12 mmol/L Normal 8-16 [facility] Comment on above: Performed By: #### P 8 #### [facility] [address] [place], [place] [address] CO2 molar conc 23 mmol/L Normal 21-32 [facility] Comment on above: Performed By: #### P 8 #### [facility] [address] [place], [place] [address] Urea nitrogen mass conc 4 mg/dL Low 7-18 [facility] Comment on above: Performed By: #### P 8 #### [facility] [address] [place], [place] [address] Calcium mass conc 7.6 mg/dL Low 8.5-10.1 [facility] Comment on above: Performed By: #### P 8 #### [facility] [address] [place], [place] [address] Glucose mass conc 102 mg/dL High 70-99 [facility] Comment on above: Performed By: #### P 8 #### [facility] [address] [place], [place] [address] Chloride molar conc 102 mmol/L Normal 98-107 [facility] Comment on above: Performed By: #### P 8 #### [facility] [address] [place], [place] [address] Potassium molar conc 3.5 mmol/L Normal 3.5-5.1 [facility] Comment on above: Performed By: #### P 8 #### [facility] [address] [place], [place] [address] Sodium molar conc 133 mmol/L Low 136-145 [facility] Comment on above: Performed By: #### P 8 #### [facility] [address] [place], [place] [address] Comprehensive Panelon 2018 ALP enzyme act/vol 345 U/L High 46-116 [facility] Comment on above: Performed By: #### P 14 #### [facility] [address] [place], [place] [address] Bilirubin mass conc 1.3 mg/dL High 0.2-1.0 [facility] Comment on above: Performed By: #### P 14 #### [facility] [address] [place], [place] [address] Protein mass conc 8.5 g/dL High 6.4-8.2 [facility] Comment on above: Performed By: #### P 14 #### [facility] [address] [place] [address] ALT enzyme act/vol 40 U/L Normal 12-78 [facility] Comment on above: Performed By: #### P 14 #### [facility] [address] [place], [place] [address] Creatinine mass conc 0.45 mg/dL Low 0.51-0.95 [facility] Comment on above: Performed By: #### P 14 #### [facility] [address] [place] [address] AST enzyme act/vol 92 U/L High 9-37 [facility] Comment on above: Performed By: #### P 14 #### [facility] [address] [place], [place] [address] Albumin mass conc 2.3 g/dL Low 3.4-5.0 [facility] Comment on above: Performed By: #### P 14 #### [facility] [address] [place] [address] Anion gap molar conc 15 mmol/L Normal 8-16 [facility] Comment on above: Performed By: #### P 14 #### [facility] [address] [place], [place] [address] CO2 molar conc 23 mmol/L Normal 21-32 [facility] Comment on above: Performed By: #### P 14 #### [facility] [address] [place] [address] Urea nitrogen mass conc 4 mg/dL Low 7-18 [facility] Comment on above: Performed By: #### P 14 #### [facility] [address] [place] [address] Calcium mass conc 8.9 mg/dL Normal 8.5-10.1 [facility] Comment on above: Performed By: #### P 14 #### [facility] [address] [place] [address] Glucose mass conc 101 mg/dL High 70-99 [facility] Comment on above: Performed By: #### P 14 #### [facility] [address] [place] [address] Chloride molar conc 93 mmol/L Low 98-107 [facility] Comment on above: Performed By: #### P 14 #### [facility] [address] [place] [address] Potassium molar conc 3.9 mmol/L Normal 3.5-5.1 [facility] Comment on above: Performed By: #### P 14 #### [facility] [address] [place] [address] Sodium molar conc 127 mmol/L Low 136-145 [facility] Comment on above: Performed By: #### P 14 #### [facility] [address] [place] [address] Cult Bloodon 05-11-2018 Cult Blood Test performed at [facility] No growth Normal [facility] Comment on above: Performed By: #### C _BLO #### [facility] [address] [place] [address] Cult Urineon 05-11-2018 Cult Urine Test performed at [facility] ORGANISM: *Escherichia coli (ID: 1) >100,000 CFU/ml Normal [facility] Comment on above: Performed By: #### C BCD1 #### [facility] [address] [place] [address] Hemogramon 05-11-2018 Erythrocyte distribution width Ratio (RBC) 13.6 % Normal 11.7-14.4 [facility] Comment on above: Performed By: #### C BC1 #### [facility] [address] [place] [address] Hematocrit Volume Fraction (Bld) 29.0 % Low 34.1-44.9 [facility] Comment on above: Performed By: #### C BC1 #### [facility] [address] [place] [address] Hemoglobin mass conc (Bld) 9.7 g/dL Low 11.2-15.7 [facility] Comment on above: Performed By: #### C BC1 #### [facility] [address] [place] [address] MCH Entitic mass (RBC) 34.9 pg High 25.6-32.2 [facility] Comment on above: Performed By: #### C BC1 #### [facility] [address] [place] [address] MCHC mass conc (RBC) 33.4 % Normal 31.6-34.8 [facility] Comment on above: Performed By: #### C BC1 #### [facility] [address] [place] [address] MCV Entitic volume (RBC) 104.3 fL High 79.4-94.8 [facility] Comment on above: Performed By: #### C BC1 #### [facility] [address] [place] [address] Platelet mean volume Entitic volume (Bld) 8.4 fL Low 9.4-12.3 [facility] Comment on above: Performed By: #### C BC1 #### [facility] [address] [place] [address] Platelets #/vol (Bld) 362 thou/cmm Normal 182-369 [facility] Comment on above: Performed By: #### C BC1 #### [facility] [address] [place] [address] RBC #/vol (Bld) 2.78 mil/cmm Low 3.93-5.22 [facility] Comment on above: Performed By: #### C BC1 #### [facility] [address] [place] [address] RDW SD 52.4 fl High 36.4-46.3 [facility] Comment on above: Performed By: #### C BC1 #### [place] [address] WBC #/vol (Bld) 11.39 thou/cmm High 3.98-10.04 [facility] Comment on above: Performed By: #### C BC1 #### [facility] [address] [place] [address] Hemogram/Diffon 05-11-2018 Abs Immature Grans 0.13 thou/cmm High 0.00-0.[address] [facility] Comment on above: Performed By: #### C BCD1 #### [place] [address] Abs. Baso 0.09 thou/cmm High 0.01-0.08 [facility] Comment on above: Result Comment: Smea r scanned; tech agrees with automated differential Performed By: #### C BCD1 #### [place] [address] Abs. [place] 1.38 thou/cmm High 0.27-0.70 [facility] Comment on above: Performed By: #### C BCD1 #### [place] [address] Abs. Neut (ANC) 10.28 thou/cmm High 1.56-6.13 [facility] Comment on above: Performed By: #### C BCD1 #### [place] [address] Basophils/100 WBC (Bld) 0.6 % Normal [facility] Comment on above: Performed By: #### C BCD1 #### [place] [address] Eosinophils #/vol (Bld) 0.01 thou/cmm Normal 0.00-0.31 [facility] Comment on above: Performed By: #### C BCD1 #### [place] [address] Eosinophils/100 WBC (Bld) 0.1 % Normal [facility] Comment on above: Performed By: #### C BCD1 #### [place] [address] Immature Grans 0.90 % Normal [facility] Comment on above: Performed By: #### C BCD1 #### [facility] [address] [place], [place] [address] Lymphocytes #/vol (Bld) 2.51 thou/cmm Normal 1.18-3.74 [facility] Comment on above: Performed By: #### C BCD1 #### [facility] [address] [place], [place] [address] Lymphocytes/100 WBC (Bld) 17.4 % Normal [facility] Comment on above: Performed By: #### C BCD1 #### [facility] [address] [place] [address] Monocytes/100 WBC (Bld) 9.6 % Normal [facility] Comment on above: Performed By: #### C BCD1 #### [facility] [address] [place] [address] Seg Neutrophil 71.4 % Normal [facility] Comment on above: Performed By: #### C BCD1 #### [facility] [address] [place] [address] Erythrocyte distribution width Ratio (RBC) 13.5 % Normal 11.7-14.4 [facility] Comment on above: Performed By: #### C BCD1 #### [facility] [address] [place] [address] Hematocrit Volume Fraction (Bld) 37.7 % Normal 34.1-44.9 [facility] Comment on above: Performed By: #### C BCD1 #### [facility] [address] [address] Hemoglobin mass conc (Bld) 12.9 g/dL Normal 11.2-15.7 [facility] Comment on above: Performed By: #### C BCD1 #### [facility] [address] [address] MCH Entitic mass (RBC) 35.6 pg High 25.6-32.2 [facility] Comment on above: Performed By: #### C BCD1 #### [facility] [address] [place] [address] MCHC mass conc (RBC) 34.2 % Normal 31.6-34.8 [facility] Comment on above: Performed By: #### C BCD1 #### [facility] [address] [address] MCV Entitic volume (RBC) 104.1 fL High 79.4-94.8 [facility] Comment on above: Performed By: #### C BCD1 #### [facility] [address] [address] Platelet mean volume Entitic volume (Bld) 8.7 fL Low 9.4-12.3 [facility] Comment on above: Performed By: #### C BCD1 #### [facility] [address] [address] Platelets #/vol (Bld) 427 thou/cmm High 182-369 A [facility] Comment on above: Performed By: #### C BCD1 #### [facility] [address] [address] RBC #/vol (Bld) 3.62 mil/cmm Low 3.93-5.22 [facility] Comment on above: Performed By: #### C BCD1 #### [facility] [address] [address] RDW SD 51.8 fl High 36.4-46.3 [facility] Comment on above: Performed By: #### C BCD1 #### [facility] [address] [address] WBC #/vol (Bld) 14.40 thou/cmm High 3.98-10.04 [facility] Comment on above: Performed By: #### C BCD1 #### [place] [address] Lactic Acidon 05-11-2018 Lactate molar conc 2.1 mmol/L Normal 0.5-2.2 [facility] Comment on above: Performed By: #### E DLAG #### [facility] [address] [address] N-terminal Pro-BNPon 019 Natriuretic peptide B mass conc (Bld) 420 pg/mL Normal [facility] Comment on above: Result Comment: Acut e CHF Rule-in <50 yrs old >= 450 pg/ml >50 yrs old >= 900 pg/ml Abnormal Pro-BNP All patients >=300 pg/ml Performed By: #### P BNP #### [facility] [address] [place] [address] Urinalysis Routineon 019 Granular Cast 0-1 Abnormal None [facility] Comment on above: Performed By: #### U RIN2 #### [place] [address] Hyaline Cast 0.0-2 Normal 0.0-1.0 [facility] Comment on above: Performed By: #### U RIN2 #### [place] [address] Mucus Threads MODERATE Abnormal None [facility] Comment on above: Performed By: #### U RIN2 #### [place] [address] RBC LM.HPF #/area (Urine sed) 36.0-50 High 0.0-5.0 [facility] Comment on above: Performed By: #### U RIN2 #### [place] [address] Yeast Urine FEW Abnormal None [facility] Comment on above: Performed By: #### U RIN2 #### [place] [address] Bacteria LM.HPF #/area (Urine sed) 4+ Abnormal None [facility] Comment on above: Performed By: #### U RIN2 #### [place] [address] Ep Cells Urine 22.2 /hpf High 0.0-5.0 [facility] Comment on above: Performed By: #### U RIN2 #### [place] [address] WBC, Urine 327.2 /hpf High 0.0-5.0 [facility] Comment on above: Performed By: #### U RIN2 #### [place] [address] Appearance Nom (U) TURBID Normal [facility] Comment on above: Performed By: #### U RIN2 #### [facility] [address] [address] Bilirubin Urine see below Abnormal Negative [facility] Comment on above: Result Comment: Detkurt cted (Unable to confirm). Performed By: #### U RIN2 #### [facility] [address] [address] Color Nom (U) ORANGE Normal [facility] Comment on above: Performed By: #### U RIN2 #### [facility] [address] [address] Glucose Ql (U) Negative Normal Negative [facility] Comment on above: Performed By: #### U RIN2 #### [facility] [address] [address] Hemoglobin,Urine LARGE Abnormal Negative [facility] Comment on above: Performed By: #### U RIN2 #### [place] [address] Ketone Urine TRACE Abnormal Negative [facility] Comment on above: Performed By: #### U RIN2 #### [facility] [address] [address] Leukocytes Esterase LARGE Abnormal Negative [facility] Comment on above: Performed By: #### U RIN2 #### [facility] [address] [address] Nitrites Urine Positive Abnormal Negative [facility] Comment on above: Performed By: #### U RIN2 #### [place] [address] pH (U) 5.5 [pH] Normal 5.0-8.0 [facility] Comment on above: Performed By: #### U RIN2 #### [facility] [address] [address] Protein mass conc (U) 30 mg/dL Abnormal Negative [facility] Comment on above: Performed By: #### U RIN2 #### [facility] [address] [address] Specific Hermann, Ur 1.017 Normal 1.005-1.[address] [facility] Comment on above: Performed By: #### U RIN2 #### [facility] [address] [address] Urobilinogen,Ur 1.0 EU/dL Normal 0.0-1.0 [facility] Comment on above: Performed By: #### U RIN2 #### [facility] [address] [address] Cult and Smr Aerobicon 05-10 Cult and Smr Aerobic Test performed at [facility] Moderate Mixed binta including both gram negative and gram positive organisms. No further identification or susceptibility to follow. Plates will be held for 5 days. Culture will be worked up per physician request. Many Mixed binta Few Polymorphonuclear leukocytes Moderate Mononuclear cells ORGANISM: *Streptococcus agalactiae (Group B Strep) (ID: 1) Moderate ORGANISM: *Escherichia coli (ID: 2) Few ORGANISM: *Klebsiella (Enterobacter) aerogenes (ID: 3) Few ORGANISM: *Klebsiella pneumoniae (ID: 4) Few ORGANISM: *Gram Positive Organisms (ID: 5) Moderate Mixed skin binta. No further identification to follow. Plates will be held for 5 days. Normal [facility] Comment on above: Performed By: #### C _AER #### [place] [address] Add on test from HISon 03-06 Add on test from HIS Accepted Normal [facility] Comment on above: Result Comment: Spec imen available & acceptable for analysis. Performed By: #### H EMDF, BMP3, ETOH4, TROPN, CK3, TSH5 #### [address] [address] Add on test from HIS Accepted Normal [facility] Comment on above: Result Comment: Spec imen available & acceptable for analysis. Performed By: #### H EMDF, BMP3, ETOH4, TROPN, CK3, TSH5 #### [address] [address] Add on test from HIS Accepted Normal [facility] Comment on above: Result Comment: Spec imen available & acceptable for analysis. Performed By: #### H EMDF, BMP3, ETOH4, TROPN, CK3, TSH5 #### [address] Basic Metabolic Panelon 02-23 Anion gap molar conc 5 Normal [facility] Comment on above: Performed By: #### H EMDF, BMP3, ETOH4, TROPN, CK3, TSH5 #### [address] Calcium mass conc 7.5 mg/dL Low 8.4-10.4 [facility] Comment on above: Performed By: #### H EMDF, BMP3, ETOH4, TROPN, CK3, TSH5 #### [address] CO2 molar conc 21 mmol/L Low 22-30 [facility] Comment on above: Performed By: #### H EMDF, BMP3, ETOH4, TROPN, CK3, TSH5 #### [address] Glucose mass conc 106 mg/dL High 70-100 [facility] Comment on above: Performed By: #### H EMDF, BMP3, ETOH4, TROPN, CK3, TSH5 #### [address] Urea nitrogen mass conc 4 mg/dL Low 7-20 S [facility] Comment on above: Performed By: #### H EMDF, BMP3, ETOH4, TROPN, CK3, TSH5 #### [address] Creatinine mass conc 0.46 mg/dL Low 0.52-1.25 [facility] Comment on above: Performed By: #### H EMDF, BMP3, ETOH4, TROPN, CK3, TSH5 #### [address] GFR/1.73 sq M predicted among blacks MDRD vol rate/area (S/P/Bld) mL/min/{1.73_m2} Normal >60 [facility] Comment on above: Performed By: #### H EMDF, BMP3, ETOH4, TROPN, CK3, TSH5 #### [place] [address] [place] GFR/1.73 sq M predicted among non-blacks MDRD vol rate/area (S/P/Bld) mL/min/{1.73_m2} Normal >[address] [facility] Comment on above: Result Comment: Sour ce- MDRD equation with creatinine calibration to IDMS(NKDEP) eGFR not recommended for drug dose adjustment Performed By: #### H EMDF, BMP3, ETOH4, TROPN, CK3, TSH5 #### [address] Potassium molar conc 4.0 mmol/L Normal 3.5-5.1 [facility] Comment on above: Performed By: #### H EMDF, BMP3, ETOH4, TROPN, CK3, TSH5 #### [address] Sodium molar conc 134 mmol/L Low 135-[address] [facility] Comment on above: Performed By: #### H EMDF, BMP3, ETOH4, TROPN, CK3, TSH5 #### [address] Chloride molar conc 107 mmol/L Normal 98-107 [facility] Comment on above: Performed By: #### H EMDF, BMP3, ETOH4, TROPN, CK3, TSH5 #### [place] [address] [place], [place] Anion gap molar conc 8 Normal [facility] Comment on above: Performed By: #### H EMDF, BMP3, ETOH4, TROPN, CK3, TSH5 #### [address] Calcium mass conc 8.4 mg/dL Normal 8.4-10.[address] [facility] Comment on above: Performed By: #### H EMDF, BMP3, ETOH4, TROPN, CK3, TSH5 #### [address] CO2 molar conc 23 mmol/L Normal 22-30 [facility] Comment on above: Performed By: #### H EMDF, BMP3, ETOH4, TROPN, CK3, TSH5 #### [place] [address] [place] Glucose mass conc 93 mg/dL Normal 70-100 [facility] Comment on above: Performed By: #### H EMDF, BMP3, ETOH4, TROPN, CK3, TSH5 #### [place] [address] [place] Urea nitrogen mass conc 5 mg/dL Low 7-20 S [facility] Comment on above: Performed By: #### H EMDF, BMP3, ETOH4, TROPN, CK3, TSH5 #### [address] Creatinine mass conc 0.59 mg/dL Normal 0.52-1.25 [facility] Comment on above: Performed By: #### H EMDF, BMP3, ETOH4, TROPN, CK3, TSH5 #### [place] [address] [place] GFR/1.73 sq M predicted among blacks MDRD vol rate/area (S/P/Bld) mL/min/{1.73_m2} Normal >60 [facility] Comment on above: Performed By: #### H EMDF, BMP3, ETOH4, TROPN, CK3, TSH5 #### [place] [address] [place] GFR/1.73 sq M predicted among non-blacks MDRD vol rate/area (S/P/Bld) mL/min/{1.73_m2} Normal >[address] [facility] Comment on above: Result Comment: Sour ce- MDRD equation with creatinine calibration to IDMS(NKDEP) eGFR not recommended for drug dose adjustment Performed By: #### H EMDF, BMP3, ETOH4, TROPN, CK3, TSH5 #### [place] [address] [place], [place] Chloride molar conc 100 mmol/L Normal 98-107 [facility] Comment on above: Performed By: #### H EMDF, BMP3, ETOH4, TROPN, CK3, TSH5 #### [place] [address] [place] [address] Potassium molar conc 3.8 mmol/L Normal 3.5-5.1 [facility] Comment on above: Performed By: #### H EMDF, BMP3, ETOH4, TROPN, CK3, TSH5 #### [facility] [address] [place] [address] Sodium molar conc 130 mmol/L Low 135-[address] [facility] Comment on above: Performed By: #### H EMDF, BMP3, ETOH4, TROPN, CK3, TSH5 #### [place] [address] [place] [address] CKon 03-06-2018 CK enzyme act/vol 156 U/L Normal 30-[address] [facility] Comment on above: Performed By: #### H EMDF, BMP3, ETOH4, TROPN, CK3, TSH5 #### [place] [address] [place] [address] CR Chest Portableon 03-06-19 19 CR Chest Portable Patient Name: CLARIBEL STOLL Diagnostic Radiology Exam Date/Time 03/05/2018 23:28:11 EST Exam CR Chest Portable Ordering Physician LINDA TEMPLE STEPHEN H Accession Number [id number] CPT4 Codes 88539 () Reason For Exam chest pain Report SINGLE FRONTAL VIEW OF THE CHEST CLINICAL INDICATION: chest pain TECHNIQUE: Single frontal view of the chest COMPARISON: 05/03/2006 FINDINGS: Mild cardiac enlargement. Lungs are clear. No vascular congestion, pleural effusion, or pneumothorax. Multiple old rib fractures on the right. Lateral right ninth rib fracture is age indeterminate. No pneumothorax seen. Lung apices are not included on the study. IMPRESSION: 1. No acute finding. Multiple right-sided old rib fractures. Age-indeterminate right lateral ninth rib fracture. Report Dictated on Final Dictated: 03/05/2018 11:44 pm Dictating Physician: MD OLSEN JOHN R Signed Date and Time: 03/05/2018 11:46 pm Signed by: MD OLSEN JOHN R Transcribed Date and Time: 03/05/2018 11:44 Normal [facility] CR Elbow 2 Views Lefton 02-23 CR Elbow 2 Views Left Patient Name: CLARIBEL STOLL Diagnostic Radiology Exam Date/Time 03/05/2018 23:28:11 EST Exam CR Elbow 2 Views Left Ordering Physician LINDA TEMPLE STEPHEN H Accession Number [id number] CPT4 Codes 71597 () Reason For Exam Fall Report LEFT ELBOW TWO VIEWS CLINICAL INDICATION: Fall, injury TECHNIQUE: Two views of the left elbow. COMPARISON: None FINDINGS: There may be a small joint effusion. No acute fracture seen. No dislocation. IMPRESSION: 1. Possible small joint effusion. Cannot exclude occult fracture. Follow-up in 7-10 days if indicated. Report Dictated on Final Dictated: 03/05/2018 11:42 pm Dictating Physician: MD OLSEN JOHN R Signed Date and Time: 03/05/2018 11:43 pm Signed by: MD OLSEN JOHN R Transcribed Date and Time: 03/05/2018 11:42 [facility] CR Humerus 2+ Views Lefton 03-06-2018 CR Humerus 2+ Views Left Patient Name: CLARIBEL STOLL Diagnostic Radiology Exam Date/Time 03/05/2018 23:28:11 EST Exam CR Humerus 2+ Views Left Ordering Physician LINDA TEMPLE STEPHEN H Accession Number [id number] CPT4 Codes 47123 () Reason For Exam Fall Report LEFT HUMERUS TWO VIEWS CLINICAL INDICATION: Fall, injury TECHNIQUE: Two views of the left humerus. COMPARISON: Left shoulder from the same day FINDINGS: Proximal humeral metaphysis fracture again noted. No other fracture or dislocation seen. IMPRESSION: 1. Displaced proximal humeral metaphyseal fracture as seen on shoulder series. Report Dictated on Final Dictated: 03/05/2018 11:41 pm Dictating Physician: MD OLSEN JOHN R Signed Date and Time: 03/05/2018 11:42 pm Signed by: MD OLSEN JOHN R Transcribed Date and Time: 03/05/2018 11:41 Normal [facility] CR Shoulder 2+ Views Lefton 03-06-2018 CR Shoulder 2+ Views Left Patient Name: CLARIBEL STOLL Diagnostic Radiology Exam Date/Time 03/05/2018 23:28:11 EST Exam CR Shoulder 2+ Views Left Ordering Physician LINDA TEMPLE STEPHEN H Accession Number [id number] CPT4 Codes 42844 () Reason For Exam pain Report LEFT SHOULDER FOUR VIEWS CLINICAL INDICATION: pain TECHNIQUE: Four views of the left shoulder. COMPARISON: None FINDINGS: Markedly displaced, comminuted fracture of the proximal humeral metaphysis with a full shafts width displacement. Proximal humeral shaft is a full shafts width anterior to the humeral head on the axillary view. There is some widening of the glenohumeral joint space, likely secondary to hemarthrosis. IMPRESSION: 1. Comminuted displaced fracture of the proximal humeral metaphysis, with likely hemarthrosis. Report Dictated on Final Dictated: 03/05/2018 11:39 pm Dictating Physician: MD OLSEN JOHN R Signed Date and Time: 03/05/2018 11:41 pm Signed by: MD OLSEN JOHN R Transcribed Date and Time: 03/05/2018 11:39 Normal [facility] CT Head or Brain w/o Contras ton 03-06-2018 CT Head or Brain w/o Contrast Patient Name: CLARIBEL STOLL CT Exam Date/Time 03/05/2018 22:55:[address] Head or Brain w/o Contrast Ordering Physician LINDA TEMPLE STEPHEN H Accession Number [id number] CPT4 Codes 22119 () Reason For Exam headache or trauma Report Indication: Trauma to head Comparison date: 05/03/2006 FINDINGS: 3 mm unenhanced imaging of the brain performed. Images viewed in multiple orthogonal planes. Additional imagin-D imaging created and reviewed on independent 3-D workstation. Chronic appearing white matter changes and remote appearing right frontal ischemic event similar to previous. There is no acute edema. No midline shift. There is no evidence of acute infarct. There is no definite acute hemorrhage. No abnormal extra-axial fluid collections visualized. Bony structures: Unremarkable. CSF spaces are unremarkable. Orbits within normal limits. Review of the paranasal sinuses shows no air-fluid levels. IMPRESSION: No acute brain process identified. Report Dictated on Final Dictated: 03/05/2018 11:13 pm Dictating Physician: MD ANTONIO JOHN Signed Date and Time: 03/05/2018 11:21 pm Signed by: MD ANTONIO JOHN Transcribed Date and Time: 03/05/2018 11:13 Normal [facility] Drugs of Abuseon 03-06-2018 Opiates, Ur Positive Normal [facility] Comment on above: Performed By: #### H EMDF, BMP3, ETOH4, TROPN, CK3, TSH5 #### [facility] [address] [place] [address] Cocaine, Ur Negative Normal [facility] Comment on above: Performed By: #### H EMDF, BMP3, ETOH4, TROPN, CK3, TSH5 #### [facility] [address] [place] [address] Methadone, Ur Negative Normal [facility] Comment on above: Performed By: #### H EMDF, BMP3, ETOH4, TROPN, CK3, TSH5 #### [facility] [address] [place] [address] Phencyclidine (PCP), Ur Negative Normal [facility] Comment on above: Result Comment: The expected value for all of the drugs listed above is Negative. The following drugs or drug groups have been screened for by Immunoassay at the following thresholds: Amphetamine class (1000 ng/mL), Barbiturates (200 ng/mL), Benzodiazepines (200 ng/mL), Cocaine (300 ng/mL), Methadone (300 ng/mL), Opiates (300 ng/mL), Oxycodone (100 ng/mL), and PCP (25 ng/mL). NOTE: These results are for medical treatment only. Analysis performed using non-forensic procedures. POSITIVE results are NOT confirmed by a more specific alternative method unless requested. If confirmation is needed, request confirmation under separate order. Performed By: #### H EMDF, BMP3, ETOH4, TROPN, CK3, TSH5 #### [place] [address] [place] [place], [place] Benzodiazepines, Ur Negative Normal [facility] Comment on above: Performed By: #### H EMDF, BMP3, ETOH4, TROPN, CK3, TSH5 #### [place] [address] [place], [place] Amphetamines, Ur Negative Normal [facility] Comment on above: Performed By: #### H EMDF, BMP3, ETOH4, TROPN, CK3, TSH5 #### [place] [address] [place], [place] Barbiturates, Ur Negative Normal [facility] Comment on above: Performed By: #### H EMDF, BMP3, ETOH4, TROPN, CK3, TSH5 #### [place] [address] [place], [place] Oxycodone/Oxymorphine,U r Negative Normal [facility] Comment on above: Performed By: #### H EMDF, BMP3, ETOH4, TROPN, CK3, TSH5 #### [place] [address] [place], [place] Ethanol Serum/Plasmaon 03-06 Ethanol-Serum/Plasma 0.064 g/dL High 0.000-0.010 [facility] Comment on above: Result Comment: NOTE : This result is for medical treatment only. Analysis performed using non-forensic procedures. Performed By: #### H EMDF, BMP3, ETOH4, TROPN, CK3, TSH5 #### [place] [address] [place], [place] Hemogramon 03-06-2018 Erythrocyte distribution width Ratio (RBC) 12.0 % Normal 11.5-14.5 [facility] Comment on above: Performed By: #### H EMDF, BMP3, ETOH4, TROPN, CK3, TSH5 #### [address] Hematocrit Volume Fraction (Bld) 35.6 % Normal 35.0-47.0 [facility] Comment on above: Performed By: #### H EMDF, BMP3, ETOH4, TROPN, CK3, TSH5 #### [address] Hemoglobin mass conc (Bld) 12.2 g/dL Normal 11.7-16.0 [facility] Comment on above: Performed By: #### H EMDF, BMP3, ETOH4, TROPN, CK3, TSH5 #### [address] MCH Entitic mass (RBC) 35.3 pg High 26.0-34.0 [facility] Comment on above: Performed By: #### H EMDF, BMP3, ETOH4, TROPN, CK3, TSH5 #### [address] MCHC mass conc (RBC) 34.2 % Normal 32.0-36.0 [facility] Comment on above: Performed By: #### H EMDF, BMP3, ETOH4, TROPN, CK3, TSH5 #### [address] MCV Entitic volume (RBC) 103.1 fL High 79.0-98.0 [facility] Comment on above: Performed By: #### H EMDF, BMP3, ETOH4, TROPN, CK3, TSH5 #### [address] Platelet mean volume Entitic volume (Bld) 8.3 fL Normal 7.4-10.4 [facility] Comment on above: Performed By: #### H EMDF, BMP3, ETOH4, TROPN, CK3, TSH5 #### [address] Platelets #/vol (Bld) 254 10*3/uL Normal 140-440 [facility] Comment on above: Performed By: #### H EMDF, BMP3, ETOH4, TROPN, CK3, TSH5 #### [place] [address] [place], [place] RBC #/vol (Bld) 3.45 10*6/uL Low 3.80-5.[address] [facility] Comment on above: Performed By: #### H EMDF, BMP3, ETOH4, TROPN, CK3, TSH5 #### [place] [address] [place] WBC #/vol (Bld) 9.0 10*3/uL Normal 3.6-10.7 [facility] Comment on above: Performed By: #### H EMDF, BMP3, ETOH4, TROPN, CK3, TSH5 #### [place] [address] [place], [place] Hemogram w/ Autodiffon 03-06 Abs Baso Cnt 0.1 10*3/uL Normal 0.0-0.2 [facility] Comment on above: Performed By: #### H EMDF, BMP3, ETOH4, TROPN, CK3, TSH5 #### [place] [address] [place], [place] Abs Neutrophile Cnt 4.4 10*3/uL Normal 1.8-7.0 [facility] Comment on above: Performed By: #### H EMDF, BMP3, ETOH4, TROPN, CK3, TSH5 #### [address] Basophils/100 WBC (Bld) 1.0 % Normal 0.0-2.0 S [facility] Comment on above: Performed By: #### H EMDF, BMP3, ETOH4, TROPN, CK3, TSH5 #### [place] [address] [place], [place] Eosinophils #/vol (Bld) 0.1 10*3/uL Normal 0.0-0.5 [facility] Comment on above: Performed By: #### H EMDF, BMP3, ETOH4, TROPN, CK3, TSH5 #### [address] Eosinophils/100 WBC (Bld) 0.6 % Low 1.0-6.0 [facility] Comment on above: Performed By: #### H EMDF, BMP3, ETOH4, TROPN, CK3, TSH5 #### [address] Erythrocyte distribution width Ratio (RBC) 11.9 % Normal 11.5-14.5 [facility] Comment on above: Performed By: #### H EMDF, BMP3, ETOH4, TROPN, CK3, TSH5 #### [address] Granulocytes/100 WBC (Bld) 50.9 % Normal 40.0-80.0 [facility] Comment on above: Performed By: #### H EMDF, BMP3, ETOH4, TROPN, CK3, TSH5 #### [address] Hematocrit Volume Fraction (Bld) 35.2 % Normal 35.0-47.0 [facility] Comment on above: Performed By: #### H EMDF, BMP3, ETOH4, TROPN, CK3, TSH5 #### [address] Hemoglobin mass conc (Bld) 12.1 g/dL Normal 11.7-16.0 [facility] Comment on above: Performed By: #### H EMDF, BMP3, ETOH4, TROPN, CK3, TSH5 #### [address] Lymphocytes #/vol (Bld) 2.8 10*3/uL Normal 1.0-4.3 [facility] Comment on above: Performed By: #### H EMDF, BMP3, ETOH4, TROPN, CK3, TSH5 #### [address] [place], [place] Lymphocytes/100 WBC (Bld) 33.0 % Normal 20.0-40.0 [facility] Comment on above: Performed By: #### H EMDF, BMP3, ETOH4, TROPN, CK3, TSH5 #### [address] MCH Entitic mass (RBC) 34.9 pg High 26.0-34.0 [facility] Comment on above: Performed By: #### H EMDF, BMP3, ETOH4, TROPN, CK3, TSH5 #### [address] MCHC mass conc (RBC) 34.5 % Normal 32.0-36.0 [facility] Comment on above: Performed By: #### H EMDF, BMP3, ETOH4, TROPN, CK3, TSH5 #### [address] MCV Entitic volume (RBC) 101.2 fL High 79.0-98.0 [facility] Comment on above: Performed By: #### H EMDF, BMP3, ETOH4, TROPN, CK3, TSH5 #### [address] Monocytes #/vol (Bld) 1.2 10*3/uL High 0.0-0.8 [facility] Comment on above: Performed By: #### H EMDF, BMP3, ETOH4, TROPN, CK3, TSH5 #### [address] Monocytes/100 WBC (Bld) 14.5 % High 2.0-10.0 [facility] Comment on above: Performed By: #### H EMDF, BMP3, ETOH4, TROPN, CK3, TSH5 #### [address] Platelet mean volume Entitic volume (Bld) 8.4 fL Normal 7.4-10.4 [facility] Comment on above: Performed By: #### H EMDF, BMP3, ETOH4, TROPN, CK3, TSH5 #### [place] [address] [address] [place], [place] Platelets #/vol (Bld) 283 10*3/uL Normal 140-440 [facility] Comment on above: Performed By: #### H EMDF, BMP3, ETOH4, TROPN, CK3, TSH5 #### [address] [address] [place], [place] RBC #/vol (Bld) 3.48 10*6/uL Low 3.80-5.20 [facility] Comment on above: Performed By: #### H EMDF, BMP3, ETOH4, TROPN, CK3, TSH5 #### [address] WBC #/vol (Bld) 8.6 10*3/uL Normal 3.6-10.7 [facility] Comment on above: Performed By: #### H EMDF, BMP3, ETOH4, TROPN, CK3, TSH5 #### [address] [address] [place], [place] Hepatic Functionon 9 ALP enzyme act/vol 107 U/L Normal 38-126 [facility] Comment on above: Performed By: #### H EMDF, BMP3, ETOH4, TROPN, CK3, TSH5 #### [address] ALT enzyme act/vol 56 U/L Normal 13-69 [facility] Comment on above: Performed By: #### H EMDF, BMP3, ETOH4, TROPN, CK3, TSH5 #### [address] AST enzyme act/vol 112 U/L High 15-46 [facility] Comment on above: Performed By: #### H EMDF, BMP3, ETOH4, TROPN, CK3, TSH5 #### [address] Bilirubin mass conc 1.2 mg/dL Normal 0.2-1.3 [facility] Comment on above: Performed By: #### H EMDF, BMP3, ETOH4, TROPN, CK3, TSH5 #### [address] Protein mass conc 5.9 g/dL Low 6.3-8.[address] [facility] Comment on above: Performed By: #### H EMDF, BMP3, ETOH4, TROPN, CK3, TSH5 #### [address] Bilirubin.direct mass conc 0.0 mg/dL Normal 0.0-0.3 [facility] Comment on above: Performed By: #### H EMDF, BMP3, ETOH4, TROPN, CK3, TSH5 #### [address] Albumin mass conc 2.8 g/dL Low 3.5-5.0 [facility] Comment on above: Performed By: #### H EMDF, BMP3, ETOH4, TROPN, CK3, TSH5 #### [address] Magnesiumon 03-06-2018 Magnesium mass conc 1.7 mg/dL Normal 1.6-2.3 [facility] Comment on above: Performed By: #### H EMDF, BMP3, ETOH4, TROPN, CK3, TSH5 #### [address] Phosphoruson 03-06-2018 Phosphate mass conc 3.0 mg/dL Normal 2.5-4.5 [facility] Comment on above: Performed By: #### H EMDF, BMP3, ETOH4, TROPN, CK3, TSH5 #### [address] Thyroid Stim. Hormoneon 02-23 Thyroid Stim. Hormone 3.756 u[IU]/mL Normal 0.465-4.68 0 [facility] Comment on above: Performed By: #### H EMDF, BMP3, ETOH4, TROPN, CK3, TSH5 #### [address] [address] [place], [place] Troponin Ion 03-06-2018 Troponin I.cardiac mass conc ng/mL Normal 0.000-0.034 [facility] Comment on above: Result Comment: 0.04 6 - 0.400 = Indeterminate > 0.400 = Consider Myocardial Injury Performed By: #### H EMDF, BMP3, ETOH4, TROPN, CK3, TSH5 #### [address] [place] [address] [address] [place], [place] Urinalysis,Macroon 9 Appearance Nom (U) clear Normal Clear [facility] Comment on above: Performed By: #### H EMDF, BMP3, ETOH4, TROPN, CK3, TSH5 #### [address] [address] [place], [place] Bilirubin,Ur Negative Normal Negative [facility] Comment on above: Performed By: #### H EMDF, BMP3, ETOH4, TROPN, CK3, TSH5 #### [address] [address] [place], [place] Color Nom (U) yellow Normal Lt. Yellow [facility] Comment on above: Performed By: #### H EMDF, BMP3, ETOH4, TROPN, CK3, TSH5 #### [address] [address] [place], [place] Glucose Ql (U) NORM Normal Negative [facility] Comment on above: Performed By: #### H EMDF, BMP3, ETOH4, TROPN, CK3, TSH5 #### [address] [place] [address] [address] [place], [place] Ketone,Urine Negative Normal Negative [facility] Comment on above: Performed By: #### H EMDF, BMP3, ETOH4, TROPN, CK3, TSH5 #### [address] Nitrite Ql (U) Positive Normal Negative [facility] Comment on above: Performed By: #### H EMDF, BMP3, ETOH4, TROPN, CK3, TSH5 #### [address] Occult Blood,Ur Negative Normal Negative [facility] Comment on above: Performed By: #### H EMDF, BMP3, ETOH4, TROPN, CK3, TSH5 #### [address] pH (U) 5.0 Normal 5.0-8.0 [facility] Comment on above: Performed By: #### H EMDF, BMP3, ETOH4, TROPN, CK3, TSH5 #### [address] Protein mass conc (U) Negative Normal Negative [facility] Comment on above: Performed By: #### H EMDF, BMP3, ETOH4, TROPN, CK3, TSH5 #### [address] Specific [place],Urine 1.005 Normal 1.005-1.030 [facility] Comment on above: Performed By: #### H EMDF, BMP3, ETOH4, TROPN, CK3, TSH5 #### [address] Urobilinogen Qn (U) NORM Normal 0-1 [facility] Comment on above: Performed By: #### H EMDF, BMP3, ETOH4, TROPN, CK3, TSH5 #### [address] WBC #/vol (Bld) Negative Normal Negative [facility] Comment on above: Performed By: #### H EMDF, BMP3, ETOH4, TROPN, CK3, TSH5 #### [address] Urinalysis,Microscopicon Bacteria LM.HPF #/area (Urine sed) Moderate (6-50) Normal Negative [facility] Comment on above: Performed By: #### H EMDF, BMP3, ETOH4, TROPN, CK3, TSH5 #### [facility] [address], [place] Epithelial cells LM.HPF #/area (Urine sed) 0 - 2 Normal 3-5 [facility] Comment on above: Performed By: #### H EMDF, BMP3, ETOH4, TROPN, CK3, TSH5 #### [facility] [address], [place] Mucous Threads Few Normal Negative [facility] Comment on above: Performed By: #### H EMDF, BMP3, ETOH4, TROPN, CK3, TSH5 #### [place] [address] [address] [place], [place] RBC LM.HPF #/area (Urine sed) 0 - 2 Normal 0-2 [facility] Comment on above: Performed By: #### H EMDF, BMP3, ETOH4, TROPN, CK3, TSH5 #### [address] [address] [place], [place] Volume,Urine 7ml Normal [facility] Comment on above: Performed By: #### H EMDF, BMP3, ETOH4, TROPN, CK3, TSH5 #### [address] [address] [place], [place] WBC LM.HPF #/area (Urine sed) 0 - 2 Normal 0-5 [facility] Comment on above: Performed By: #### H EMDF, BMP3, ETOH4, TROPN, CK3, TSH5 #### [address] ED Provider Noteon 9 Protein mass conc I independently performed a history and physical on [facility]. All diagnostic, treatment, and disposition decisions were made by myself in conjunction with the advanced practice provider/resident. Brief History of Present Illness: Patient presents with accidental fall. Patient woke up this morning as well as still dark and fell trying to the bathroom. She does not know why she fell. Her Lasix is given out. Does not recall any chest pain, palpitations, difficulty breathing, nausea vomiting. Injured her LEFT arm during the accident. No head injury that she recalls. Focused Physical Examination: Triage vital signs without tachycardia and hypotension. Head is atraumatic. Tachycardic rate and regular rythm. No murmurs. Lungs clear to auscultation bilaterally without increased work of breathing. abdomen is soft. Tenderness to palpation at the LEFT upper arm. Bruising of the upper arm and shoulder area. +2 dorsalis pedis pulse on the LEFT. Brisk capillary refill distal fingertips. Intact 2 point and 1 point discrimination of the LEFT fingers. Emergency Department Course and Medical Decision Making: Patient presents with accidental fall. Blood work and laboratory studies were ordered for metabolic cause of her hypotension and tachycardia as well as fall. EKG obtained. CT head and x-ray imaging ordered for evaluation of traumatic injury. Interpretation of 12 Lead EKG obtained at 2244 has a regular rhythm at a tachycardic rate of 106 bpm.GA interval normal. QRS complex narrow. QTC normal. No ST segment elevations or depressions. No abnormal T-wave inversions. Good R-wave progression through precordial leads. Interpretation of this EKG myself in the absence of a foam dispenser is sinus tachycardia. Interpretation of Diagnostic Laboratory Studies and Tests: CBC showed no leukocytosis or leukopenia. Hb without anemia. Platelets without thrombocytopenia or thrombocytosis. hyponatremia 130. Renal function normal. Alcohol elevated 0.064. TSH normal. CPK normal. Troponin negative. CT head showed no acute traumatic injury. X-ray LEFT humerus showed fracture. LEFT elbow shows effusion suggestive of occult fracture. Patient will have orthopedic surgery consultation. Was admitted to the admitting resident for further treatment of her hypotension and fall and likely placement issues. For further details of Claribel Stoll's emergency department encounter, please see documentation by advanced practice provider/resident Gibran Temple CNP. Comment: Please note this report has been produced using speech recognition software and may contain errors related to that system including errors in grammar, punctuation, and spelling, as well as words and phrases that may be inappropriate. If there are any questions or concerns please feel free to contact the dictating provider for clarification. Tank Gabriel MD 03/06/18 2634 Addendum to note: The patient continued to have borderline blood pressure with 98/63 been the most recent number. Patient was reassessed and had no symptoms of low blood pressure. No lightheadedness, shortness breath, chest pain or palpitations. Blood pressure findings were conveyed to the admitting resident who had ordered he admitted the patient. Patient be changed to a telemetry floor admission given the persistent low blood pressure. Tank Gabriel MD 03/06/18 0407 [facility] Patient: Claribel Stoll : 1955 Date of Evaluation: 03/05/2018 ED STEFANY Provider: TILA Mclean CNP EDcare was supervised by Dr. Tao independently examined and evaluated the patient. Please see their attestation note for further details. Chief Complaint LEFT arm pain Chief Complaint Patient presents with ? Arm Pain Pt brought in by ems for left arm pain. Pt states she fell last night and landed on her left arm and pain not going away. + bruising to left upper arm, +POP. Pt denies hitting head. AOx3 ? Fall [place] Claribel Stoll is a 62 y.o. female whoresents to the emergency department for evaluation treatment of her LEFT arm pain. Patient fell yesterday we will obtain a CT of the head laboratory studies will be obtained including a EKG troponin laboratory studies will order a x-ray of the patient's LEFT shoulder LEFT humerus and LEFT elbow will be obtained as well. Patient reports that that she does not use illicit drugs or tobacco products although the patient reports she does drink alcohol daily. Patient denies any chest pain or shortness of breath she speaks in full sentences able to swallow her own secretions. Patient reported she she did hit her head reported she was walking in the bathroom yesterday and her legs just gave out. Patient reported that that she did not want, hospital and friends convinced her due to the clinical picture of her LEFT arm. ROS: Review of Systems GENERAL: Denies weight change, fatigue, weakness, fever HEENT: Denies trauma, headache, dizziness, visual change, ear pain, hearing change, tinnitus, rhinorrhea CARDIAC: Denies hypertension, murmur, angina, palpations, dyspnea on exertion, edema RESPIRATORY: Denies shortness of breath, wheezing, cough, sputum, asthma, COPD GI: Denies nausea, vomiting, change in bowels, abdominal pain URINARY: Denies changes in frequency/urgency, hematuria, incontinence, flank pain MUSCULOSKELETAL: Denies weakness, pain to the LEFT shoulder LEFT humerus and LEFT elbow, and waned of change in ROM, redness, swelling NEURO: Denies loss in sensation, tingling, tremors, weakness, fainting or seizures ENDO: Denies heat/cold intolerance, polyuria, polydipsia, or swelling around neck PSYCH: Denies changes in mood, anxiety, depression, tension, memory CURRENT MEDS W/ ASSOC DIAG Med List Status: Complete Set By: Una Blankenship RN at 03/05/2018 9:56 PM No medications reported. Past History Past Medical History: Diagnosis Date ? Anxiety ? Depression Past Surgical History: Procedure Laterality Date ? OTHER SURGICAL HISTORY LLE surgery Social History Social History ? Marital status: Spouse name: N/A ? Number of children: N/A ? Years of education: N/A Social History Main Topics ? Smoking status: Never Smoker ? Smokeless tobacco: Never Used ? Alcohol use No ? Drug use: No ? Sexual activity: Not Asked Other Topics Concern ? None Social History Narrative ? None Medications/Allergies Previous Medications No medications on file No Known Allergies Physical Exam ED Triage Vitals [03/05/18 2154] BP Temp Temp Source Pulse Resp SpO2 Height Weight 87/61 98.3 ?F (36.8 ?C) Oral 108 18 96 % 5' 5" (1.651 m) 104 lb (47.2 kg) Physical Exam Constitutional: Well developed, well nourished, no acute distress, non-toxic appearance Eyes: PERRL, conjunctiva normal HENT: Atraumatic, external ears normal, nose normal, oropharynx moist, no pharyngeal exudates. Neck- normal range of motion, no tenderness, supple Respiratory: No respiratory distress, normal breath sounds, no rales, no wheezing Cardiovascular: Normal rate, normal rhythm, no murmurs, no gallops, no rubs S1-S2 GI: Soft, nondistended, normal bowel sounds, nontender, no organomegaly, no mass, no rebound, no guarding : No costovertebral angle tenderness Musculoskeletal: No edema, tenderness to palpation of the LEFT arm patient has deformities to the LEFT humerus. Back- no tenderness Integument: Well hydrated, no rash Lymphatic: No lymphadenopathy noted Neurologic: Alert & oriented x 3, CN 2-12 normal, normal motor function, normal sensory function, no focal deficits noted Psychiatric: Speech and behavior appropriate Vitals as documented Diagnostics Labs: Results for orders placed or performed during the hospital encounter of 03/06/18 Troponin Result Value Ref Range Troponin I <0.012 0.000 - 0.034 ng/mL CBC Auto Differential Result Value Ref Range WBC 8.6 3.6 - 10.7 10*3/uL RBC 3.48 (L) 3.80 - 5.20 10*6/uL Hemoglobin 12.1 11.7 - 16.0 g/dL Hematocrit 35.2 35.0 - 47.0 % MCV 101.2 (H) 79.0 - 98.0 fL MCH 34.9 (H) 26.0 - 34.0 pg MCHC 34.5 32.0 - 36.0 % RDW 11.9 11.5 - 14.5 % Platelets 283 140 - 440 10*3/uL MPV 8.4 7.4 - 10.4 fL Granulocytes % 50.9 40.0 - 80.0 % Lymphocyte % 33.0 20.0 - 40.0 % Monocytes 14.5 (H) 2.0 - 10.0 % Eosinophils 0.6 (L) 1.0 - 6.0 % Basophils 1.0 0.0 - 2.0 % Absolute Neut # 4.4 1.8 - 7.0 10*3/uL Absolute Lymph # 2.8 1.0 - 4.3 10*3/uL Absolute [place] # 1.2 (H) 0.0 - 0.8 10*3/uL Absolute Eos # 0.1 0.0 - 0.5 10*3/uL Absolute Baso # 0.1 0.0 - 0.2 10*3/uL Basic Metabolic Panel Result Value Ref Range Sodium 130 (L) 135 - 145 mmol/L Potassium 3.8 3.5 - 5.1 mmol/L Chloride 100 98 - 107 mmol/L CO2 23 22 - 30 mmol/L Anion Gap 8 NA Glucose 93 70 - 100 mg/dL BUN 5 (L) 7 - 20 mg/dL CREATININE 0.59 0.52 - 1.25 mg/dL eGFR >60.0 >60 mL/min EGFR IF NonAfrican [place]ian >60.0 >60 mL/min Calcium 8.4 8.4 - 10.4 mg/dL Ethanol Result Value Ref Range Ethanol Lvl 0.064 (H) 0.000 - 0.010 g/dL Add On Lab Test Result Value Ref Range Add On Accepted NA Add On Lab Test Result Value Ref Range Add On Accepted NA TSH without Reflex Result Value Ref Range TSH 3.756 0.465 - 4.680 u[IU]/mL CK Result Value Ref Range Total CK 156 30 - 170 U/L Radiographs: Xr Humerus Left (min 2 Views) Result Date: 03/05/2018 Patient Name: CLARIBEL STOLL ---Diagnostic Radiology--- Exam Date/Time 03/05/2018 23:28:11 EST Exam CR Humerus 2+ Views Left Ordering Physician LINDA TEMPLE STEPHEN H Accession Number [id number] CPT4 Codes 42313 () Reason For Exam Fall Report LEFT HUMERUS TWO VIEWS CLINICAL INDICATION: Fall, injury TECHNIQUE: Two views of the left humerus. COMPARISON: Left shoulder from the same day FINDINGS: Proximal humeral metaphysis fracture again noted. No other fracture or dislocation seen. IMPRESSION: 1. Displaced proximal humeral metaphyseal fracture as seen on shoulder series. Report Dictated on --- Final --- Dictated: 03/05/2018 11:41 pm Dictating Physician: MD PRETTY, ERIN Diaz Signed Date and Time: 03/05/2018 11:42 pm Signed by: MD OLSEN JOHN R Transcribed Date and Time: 03/05/2018 11:41 Xr Elbow Left (2 Views) Result Date: 03/05/2018 Patient Name: CLARIBEL STOLL ---Diagnostic Radiology--- Exam Date/Time 03/05/2018 23:28:11 EST Exam CR Elbow 2 Views Left Ordering Physician LINDA TEMPLE STEPHEN H Accession Number [id number] CPT4 Codes 04833 () Reason For Exam Fall Report LEFT ELBOW TWO VIEWS CLINICAL INDICATION: Fall, injury TECHNIQUE: Two views of the left elbow. COMPARISON: None FINDINGS: There may be a small joint effusion. No acute fracture seen. No dislocation. IMPRESSION: 1. Possible small joint effusion. Cannot exclude occult fracture. Follow-up in 7-10 days if indicated. Report Dictated on --- Final --- Dictated: 03/05/2018 11:42 pm Dictating Physician: MD OLSEN JOHN R Signed Date and Time: 03/05/2018 11:43 pm Signed by: MD OLSEN JOHN R Transcribed Date and Time: 03/05/2018 11:42 Ct Head Wo Contrast Result Date: 03/05/2018 Patient Name: CLARIBEL STOLL ---CT--- Exam Date/Time 03/05/2018 22:55:[address] Head or Brain w/o Contrast Ordering Physician LINDA TEMPLE STEPHEN H Accession Number [id number] CPT4 Codes 35370 () Reason For Exam headache or trauma Report Indication: Trauma to head Comparison date: 05/03/2006 FINDINGS: 3 mm unenhanced imaging of the brain performed. Images viewed in multiple orthogonal planes. Additional imagin-D imaging created and reviewed on independent 3-D workstation. Chronic appearing white matter changes and remote appearing right frontal ischemic event similar to previous. There is no acute edema. No midline shift. There is no evidence of acute infarct. There is no definite acute hemorrhage. No abnormal extra-axial fluid collections visualized. Bony structures: Unremarkable. CSF spaces are unremarkable. Orbits within normal limits. Review of the paranasal sinuses shows no air-fluid levels. IMPRESSION: No acute brain process identified. Report Dictated on --- Final --- Dictated: 03/05/2018 11:13 pm Dictating Physician: MD ANTONIO JOHN Signed Date and Time: 03/05/2018 11:21 pm Signed by: MD ANTONIO JOHN Transcribed Date and Time: 03/05/2018 11:13 Xr Chest Portable Result Date: 03/05/2018 Patient Name: CLARIBEL STOLL ---Diagnostic Radiology--- Exam Date/Time 03/05/2018 23:28:11 EST Exam CR Chest Portable Ordering Physician LINDA TEMPLE STEPHEN H Accession Number [id number] CPT4 Codes 82765 () Reason For Exam chest pain Report SINGLE FRONTAL VIEW OF THE CHEST CLINICAL INDICATION: chest pain TECHNIQUE: Single frontal view of the chest COMPARISON: 05/03/2006 FINDINGS: Mild cardiac enlargement. Lungs are clear. No vascular congestion, pleural effusion, or pneumothorax. Multiple old rib fractures on the right. Lateral right ninth rib fracture is age indeterminate. No pneumothorax seen. Lung apices are not included on the study. IMPRESSION: 1. No acute finding. Multiple right-sided old rib fractures. Age-indeterminate right lateral ninth rib fracture. Report Dictated on --- Final --- Dictated: 03/05/2018 11:44 pm Dictating Physician: MD OLSEN JOHN R Signed Date and Time: 03/05/2018 11:46 pm Signed by: MD OLSEN JOHN R Transcribed Date and Time: 03/05/2018 11:44 Xr Shoulder Left 2 Vw Result Date: 03/05/2018 Patient Name: CLARIBEL STOLL ---Diagnostic Radiology--- Exam Date/Time 03/05/2018 23:28:11 EST Exam CR Shoulder 2+ Views Left Ordering Physician LINDA TEMPLE, TED Mcdonnell Accession Number [id number] CPT4 Codes 60363 () Reason For Exam pain Report LEFT SHOULDER FOUR VIEWS CLINICAL INDICATION: pain TECHNIQUE: Four views of the left shoulder. COMPARISON: None FINDINGS: Markedly displaced, comminuted fracture of the proximal humeral metaphysis with a full shafts width displacement. Proximal humeral shaft is a full shafts width anterior to the humeral head on the axillary view. There is some widening of theglenohumeral joint space, likely secondary to hemarthrosis. IMPRESSION: 1. Comminuted displaced fracture of the proximal humeral metaphysis, with likely hemarthrosis. Report Dictated on --- Final --- Dictated: 03/05/2018 11:39 pm Dictating Physician: MD OLSEN JOHN R Signed Date and Time: 03/05/2018 11:41 pm Signed by: MD OLSEN JOHN R Transcribed Date and Time: 03/05/2018 11:39 Procedures: None EKG: All EKG's areinterpreted by the Emergency Department Physician in the absence of a foam dispenser.?Please see their note for interpretation of EKG. ED Course and MDM In brief, Claribel Stoll harjinder 62 y.o. female who presented to the emergency department For evaluation treatment LEFT arm pain. Patient has deformity to the LEFT arm pain and discomfort passive range of motion. We will her a x-ray of the patient's LEFT shoulder LEFT humerus and LEFT elbow. A CT of the patient's head will be obtained as she stated that she fell yesterday hitting her head she is not on any blood thinners. C will be ordered as well as a EtOH will be obtained. Patient will be given a liter bolus of fluid as her blood pressure 86/48 at this time. The results of the patient's CBC shows unremarkable. The patient's sodium is 1:30 the patient's alcohol level is 0.064 the results of the patient's LEFT humerus that shows a displaced proximal humeral fracture is seen on the shoulder series as well. The results of the patient's LEFT elbow shows possible small joint effusion cannot exclude occult fracture the results of the patient's CT of the head shows no acute brain processes are identified. There is no evidence of acute infarct. The results of the patient's chest x-ray shows no acute findings she has multiple RIGHT sided (fractures 8 indeterminate she also has a lateral ninth rib fracture The results of the patient's shoulder x-ray shows a comminuted displaced fracture of the proximal humeral metaphysis with a likely hemarthrosis The orthopedic resident was consulted and they came down to evaluate the patient as well the patient will be placed in a sling she is aware that at all times except for hygiene and range of motion exercises 4 times a day at the elbow wrist and fingers as he is neurovascularly intact. Patient will be admitted to medicine. Dr. Sheffield came down to evaluate the patient and admit the patient patient lives alone and is unable to have a full range of motion to the LEFT arm at this time she is a fall risk and she has fallen causing her present injury. Patient was admitted to the hospital blood pressure was 112/81 her resp 118 temperature was 90.3 her oxygen saturation was 100 percent patient was in moderate discomfort she was given 4 mg of morphine and 4 of Zofran. She was admitted to the hospital condition stable upon admission. ED Medication Orders Start Ordered Status Ordering Provider 03/06/18 0126 03/06/18 0127 ondansetron (ZOFRAN) injection 4 mg EVERY 30 MIN PRN Last APR action: Given - by UNA BLANKENSHIP on 03/06/18 at 0145 TED TEMPLE 03/06/18 0126 03/06/18 0127 morphine (PF) injection 4 mg EVERY 30 MIN PRN Last APR action: Given - by UNA BLANKENSHIP on 03/06/18 at 0144 TED TEMPLE 03/06/18 0115 03/06/18 0110 0.9 % sodium chloride bolus ONCE Last APR action: New Bag - by UNA BLANKENSHIP on 03/06/18 at 0119 TANK GABRIEL-GO 03/05/18 2245 03/05/18 2244 0.9 % sodium chloride bolus ONCE Last APR action: Stopped - by UNA BLANKENSHIP on 03/06/18 at 0042 TED TEMPLE Final Impression 1. Closed fracture of proximal end of left humerus, unspecified fracture morphology, initial encounter 2. Fall, initial encounter 3. Left arm pain DISPOSITION Admit (Please note that portions of this note may have been completed with a voice recognition program. 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 Vital Signs Date Time Vital Sign Value Performing Clinician Faci lity 01-26-2023 08:26-0500 Body temperature 98.6 [degF] Dell Burden MD Work Phone: [facility] 01-26-2023 08:26-0500 Diastolic blood pressure 59 mm[Hg] Dell Burden MD Work Phone: [facility] 01-26-2023 08:26-0500 Heart rate 79 /min Dell Burden MD Work Phone: [facility] 01-26-2023 08:26-0500 Respiratory rate 16 /min Dell Burden MD Work Phone: [facility] 01-26-2023 08:26-0500 SaO2% (BldA) [Mass fraction] 93 % Dell Burden MD Work Phone: [facility] 01-26-2023 08:26-0500 Systolic blood pressure 105 mm[Hg] Dell Burden MD Work Phone: [facility] 01-27-2022 10:48-0500 Body height 165.1 cm Yasmany Roman MD Work Phone: [facility] 01-27-2022 10:48-0500 Body weight 68.04 kg Yasmany Roman MD Work Phone: [facility] 01-27-2022 10:48-0500 Respiratory rate 18 /min Yasmany Roman MD Work Phone: [facility] Encounters Encounter Date Encounter Type Care Provider Facility Start: 09-26-2024 ambulatory Morris BEAL Facil ity:[facility] Start: 04-04-2024 ambulatory Morris BEAL Facil ity:[facility] Start: 03-28-2024 ambulatory Morris Carr OLS Facil ity:[facility] Start: 03-24-2024 ambulatory Morris Carr OLS Facil ity:[facility] Start: 02-19-2024 End: 02-19-2024 ambulatory Morris Carr OLS Facility:[facility] Start: 01-06-2024 End: 01-06-2024 ambulatory Morris BEAL Facility:[facility] Start: 11-30-2023 End: 11-30-2023 ambulatory Morris BEAL Facility:[facility] Start: 10-27-2023 ambulatory Morris BEAL Facil ity:[facility] Start: 05-22-2023 End: 05-22-2023 ambulatory [facility] Work Phone: Start: 05-22-2023 End: 05-22-2023 Departed Referred [facility] [address] Start: 05-15-2023 Registered Referred [facility] [address] Start: 05-14-2023 End: 05-14-2023 ambulatory [facility] Work Phone: Start: 05-14-2023 End: 05-14-2023 Departed Ref[facility] [address] Start: 05-06-2023 End: 05-06-2023 ambulatory [facility] Work Phone: Start: 05-06-2023 End: 05-06-2023 Departed Referred [facility] [address] Start: 03-18-2023 End: 03-18-2023 Departed Referred [facility] [address] Start: 03-02-2023 End: 03-02-2023 ambulatory [facility] Work Phone: Start: 03-02-2023 End: 03-02-2023 Departed Referred [facility] [address] Start: 03-02-2023 Registered Referred [facility] [address] Start: 02-20-2023 End: 02-20-2023 ambulatory [facility] Work Phone: Start: 02-20-2023 End: 02-20-2023 Departed Referred [facility] [address] Start: 02-20-2023 Registered Referred [facility] [address] Start: 02-13-2023 End: 02-13-2023 ambulatory [facility] Work Phone: Start: 02-13-2023 End: 02-13-2023 Departed Referred [facility] [address] Start: 01-30-2023 End: 01-30-2023 Departed Referred [facility] - [address] Start: 01-30-2023 Registered Referred [facility] [address] Start: 01-24-2023 End: 01-26-2023 Evaluation and management of inpatient [facility] Start: 01-24-2023 End: 01-26-2023 Evaluation and management of inpatient Dell Burden MD Work Phone: [facility] PCU H6 Comment on above: Closed fracture of r ight hip, initial encounter (HCC) (Primary Dx); Hypoxia; Left arm pain; Anxiety; Dementia, unspecified dementia severity, unspecified dementia type, unspecified whether behavioral, psychotic, or mood disturbance or anxiety (HCC) Start: 01-23-2023 End: 01-23-2023 ambulatory [facility] Work Phone: Start: 01-23-2023 End: 01-23-[address] [facility] - [address] Start: 12-04-2022 End: 12-04-2022 [facility] Work Phone: Start: 12-04-2022 End: 12-04-[address] [facility] - [address] Start: 12-01-2022 End: 12-01-[address] [facility] - [address] Start: 01-27-2022 End: 01-27-2022 ambulatory YASMANY ROMNA Facility:[facility] Start: 01-27-2022 End: 01-27-2022 Patient encounter procedure Yasmany Roman MD Work Phone: [facility] Comment on above: Closed subcapital fr acture of left femur with routine healing, subsequent encounter (Primary Dx) Start: 01-10-2022 End: 01-10-2022 ambulatory [facility] Work Phone: Start: 01-10-2022 End: 01-10-[address] [facility] - [address] Start: 12-28-2021 Registered Referred [facility] - [address] Start: 12-13-2021 End: 12-24-2021 Evaluation and management of inpatient YASMANY ROMAN Facility:[facility] Start: 08-06-2021 End: 08-06-[address] [facility] - [address] Start: 07-04-2021 End: 07-04-[address] [facility] - [address] Start: 05-31-2021 End: 05-31-[address] [facility] - [address] Start: 04-23-2021 End: 04-23-[address] [facility] - [address] Start: 05-10-2018 End: 05-19-2018 Evaluation and management of inpatient ARUN MCLAUGHLIN Facility:[facility] Start: 04-06-2018 Patient encounter procedure CLAU SANTORO [facility] Start: 03-31-2018 Patient encounter procedure UNKNOWN PROVIDER [facility] Start: 03-06-2018 Patient encounter procedure UNKNOWN PROVIDER [facility] Procedures Date Procedure Procedure Detail Performing Clinician Start: 05-15-2023 Clostridium difficil e detection Start: 03-02-2023 Urine culture Start: 01-26-2023 Ecg routine ecg w/le ast 12 lds trcg only w/o i&r Savanna Lutz DO Work Phone: Start: 01-26-2023 Ct head/brain w/o co ntrast material Morris Domínguez MD Work Phone: Start: 01-26-2023 End: 01-26-2023 Comprehensive metabolic panel Morris Domínguez MD Work Phone: Start: 01-25-2023 Radex hip unilateral with pelvis 2-3 views Jericho Maradiaga MD Work Phone: Start: 01-25-2023 End: 01-25-2023 Hemiarthroplasty hip partial Randee Oliver MD Work Phone: Start: 01-25-2023 Basic metabolic pane l calcium total Oliversimha Bao Garsia MD Work Phone: Start: 01-24-2023 Antibody screen BYRON GARSIA Comment on above: Performed By: #### L [id number] ####Gambreler: ASHER HAY ([phone])[facility])[address] Start: 01-24-2023 ABO and Rh group [Ty pe] in Blood by Confirmatory method Ila Valentin MD Work Phone: Start: 01-24-2023 Blood typing serolog ic rh (d) Ila Valentin MD Work Phone: Start: 01-24-2023 Prothrombin time Ila Valentin MD Work Phone: Start: 01-24-2023 Radiologic examinati on femur minimum 2 views Ila Valentin MD Work Phone: Start: 01-24-2023 Radiologic exam ches t single view Dell Burden MD Work Phone: Start: 01-24-2023 SARS-COV-2, FLU A/B, AND RSV COMBO Dell Burden MD Work Phone: Start: 01-24-2023 Basic metabolic pane l calcium total Dell Burden MD Work Phone: Start: 01-24-2023 Thyrotropin [Units/v olume] in Serum or Plasma Dell Burden MD Work Phone: Start: 01-24-2023 Ecg routine ecg w/le ast 12 lds i&r only Dell Burden MD Work Phone: Start: 01-24-2023 Ct head/brain w/o co ntrast material Dell Burden MD Work Phone: Start: 01-24-2023 Radex hip unilateral with pelvis 2-3 views Dell Burden MD Work Phone: Start: 01-27-2022 Radex hip unilateral with pelvis 2-3 views Yasmany Roman MD Work Phone: Start: 12-13-2021 Antibody screen YASMANY ROMAN Comment on above: Order Comment: Speci men Type: BLOOD SPECIMEN Ordering Facility: [facility] Address: [address] [place] [id number] Performed By: #### T SCR #### [facility] CLIA [id number] [address] [place] [address] [place] Start: 04-23-2021 Urine culture Urine culture Plan of Treatment Date Care Activity Detail Author Start: 12-24-2024 DIABETES SCREEN DIABETES SCREEN [facility] Start: 01-25-2024 Thyroid stimulating hormone measurement TSH Level [facility] Start: 10-24-2022 COVID-19 Vaccine ( season) COVID-19 Vaccine () [facility] Start: 10-24-2022 Influenza vaccination Influenza Vaccine (#1) [facility] Start: 10-24-2021 Influenza vaccination INFLUENZA (#1) [facility] Start: 04-10-2021 COVID-19 VACCINE (3 - Booster for Pfizer series) COVID-19 VACCINE (3 - Booster for Pfizer series) [facility] Start: 02-23-2021 ADVANCE DIRECTIVE DISCUSSION ADVANCE DIRECTIVE DISCUSSION [facility] Start: 09-26-2019 BONE DENSITY BONE DENSITY [facility] Start: 09-26-2019 Pneumococcal Vaccine: 65+ Years (1 - PCV) Pneumococcal Vaccine: 65+ Years (1 - PCV) [facility] Start: 09-26-2019 PNEUMOCOCCAL: 65+ (1 - PCV) PNEUMOCOCCAL: 65+ (1 - PCV) [facility] Start: 2014 RSV Immunization aged 60 or older (1 - 1-dose 60+ series) RSV Immunization aged 60 or older (1 - 1-dose 60+ series) [facility] Start: 2004 SHINGRIX VACCINE (1 of 2) SHINGRIX VACCINE (1 of 2) [facility] Start: 2004 Zoster Vaccines (1 of 2) Zoster Vaccines (1 of 2) [facility] Start: 09-26-1999 COLOGUARD (FIT-DNA) COLOGUARD (FIT-DNA) [facility] Start: 09-26-[address] [facility] Start: 09-26-1999 COLORECTAL CANCER SCREENING COLORECTAL CANCER SCREENING [facility] Start: 09-26-[address] [facility] Start: 09-26-1999 FECAL OCCULT BLOOD FECAL OCCULT BLOOD [facility] Start: 09-26-1999 LIPID SCREEN LIPID SCREEN [facility] Start: 09-26-[address] [facility] Start: [address] [facility] Start: 1994 Screening for malignant neoplasm of breast Mammogram [facility] Start: 1973 DTaP/Tdap/Td Vaccines (1 - Tdap) DTaP/Tdap/Td Vaccines (1 - Tdap) [facility] Start: 1973 Urine microalbumin profile DTAP,TDAP,TD (1 - Tdap) [facility] Start: 1972 Diabetes mellitus screening Diabetes Screening [facility] Start: 1972 HEPATITIS C SCREENING HEPATITIS C SCREENING [facility] Start: 1972 Hepatitis C screening Hepatitis C Screening [facility] Start: 1966 Depression Screening Depression Screening [facility] Start: 1954 Medicare Advantage Annual Wellness Visit (AWV) Medicare Advantage Annual Wellness Visit (AWV) [facility] Start: 1954 Screening for malignant neoplasm of colon [facility] Start: 1955 Screening for osteoporosis Bone Density Scan [facility] ECG 12 lead ECG 12 lead CV E CG STAT 01/26/2023 9:30 AM EST [facility] Work Phone: Payers Date Payer Category Payer Self-pay [id number] 2020 Medicaid [id number] 2020 Medicaid [employer] MYCARE [employer] [employer] [id number] 2020-Present [phone] [address] [facility] [place] [address] Medicaid [id number] 2020 Medicare [employer] MEDICARE [employer] [employer] MEDICARE [id number] 2020-Present [address] [place] [address] Medicare O [id number] 2020 Unknown [id number] 2020 Unknown [employer] HMO SNP [id number] 2020-Present [phone] [address] [place] [address] HMO [id number] 1954 Unknown [id number] 668 1954 Unknown [id number] 668 1954 Unknown [id number]. 668 1954 Unknown [id number]. 278 Medicaid [id number] Medicare [id number] Private Health Insurance Unknown [id number] 462 Unknown [id number] [id number]. 462 Unknown [id number]. 462 Unknown [id number]. 462 Unknown [id number]. 462 Unknown [id number] [id number]. 462 Unknown [id number]. 462 Unknown [id number]. 462 Social History Date Type Detail Facility [facility] Start: 1955 Sex Assigned At Female [facility] Start: 01-27-2022 Tobacco smoking status NHIS Ex-smoker [facility] History of tobacco use Current smoker [facility] Start: 04-20-2018 End: 01-27-2022 Alcohol intake Current drinker of alcohol (finding) [facility] Start: 05-10-[address] [facility] Start: 1955 Sex Assigned At Not on file [facility] Start: 01-17-2022 End: 01-27-2022 Exposure to SARS-CoV-2 (event) Not sure [facility] Tobacco smoking stat us NHIS Never smoked tobacco [facility] Start: 01-24-2023 History of Social function [facility] Start: 01-24-2023 Alcohol Use Disorder Identification Test - Consumption [AUDIT-C] [facility] How often to you hav e a drink containing alcohol? Never [facility] How many standard dr inks containing alcohol do you have on a typical day? Patient does not drink [facility] Medical Equipment Procedure Code Equipment Code Equipment Origin al Text Equipment Identifier Dates Sleeve Unitrax + 0mm C Taper Centering Hip Femur - [id number] Start: 12-14-2021 Head Unitrax 44m m Unipolar Modular [place] V40 Stem Hip Femoral - [id number] Start: 12-14-2021 Cement Bone Simp sebastian P Full - [id number] Start: 01-25-2023 Conquest Fx Femo ral Component [id number] Start: 01-25-2023 Sleeve Fem Tndm -3mm 02/05 Hip - [id number] Start: 01-25-2023 Clinical Notes 12-13-2021 to 01-26-2023 Care Coordination - Nyla Haider RN - 01/26/2023 3:14 PM ESTCare Coordination - Nyla Haider RN - 01/26/2023 3:14 PM ESTCare Coordination - Nyla Haider RN - 01/26/2023 3:14 PM EST Note Date & Type Note Facility 01-26-2023 Note Formatting of this n ote might be different from the original. MUD WORKER tasked to send discharge paperwork to [facility]. [facility] 01-26-2023 Note Formatting of this n ote might be different from the original. MUD WORKER tasked to send discharge paperwork to [facility]. [facility] 01-26-2023 Miscellaneous Notes [facility] tasked to send discharge paperwork to [facility]. Problem: Knowledge Deficit Goal: Patient/family/caregiver demonstrates understanding of disease process, treatment plan, medications, and discharge instructions 01/26/2023 1457 by Yumi Feng RN Outcome: Completed 01/26/2023 1010 by Yumi Feng RN Outcome: Progressing Flowsheets (Taken 01/26/2023 1010) Patient/family/caregiver demonstrates understanding of disease process, treatment plan, medications, and discharge instructions: Complete learning assessment and assess knowledge base Provide teaching via preferred learning methods Problem: Potential for Compromised Skin Integrity Goal: Skin Integrity is Maintained or Improved 01/26/2023 1457 by Yumi Feng RN Outcome: Completed 01/26/2023 1010 by Yumi Feng RN Outcome: Progressing Flowsheets (Taken 01/26/2023 1010) Skin integrity is maintained or improved: Assess and monitor skin integrity Relieve pressure to bony prominences Goal: Nutritional status is improving Outcome: Completed Problem: Urinary Incontinence Goal: Perineal skin integrity is maintained or improved Outcome: Completed Discharge med list transmitted to [facility] via [facility] per TCC request. Transport arranged for 1600 today to tranfer patient to [facility]. RN, TCC, , [facility], sister (Missy) were notified. Care Managment Initial Assessment Date: 01/26/2023 Patient Name: Claribel Stoll : 1955 Patient Information Source of Information: Patient Director Of Entertainment Name/Contact Information: Missy Whitfield - Cognition/Language: Confused at baseline Permission given to speak with patient medical detail representative/caregiver as indicated: Confirmation of Payer with patient/family: Yes Payer Name: [employer] : Confirmation of Primary Care Physician: Confirmed PCP Name: morris Carr Seen in last 2 years?: Yes Primary Caregiver: If assistance needed, confirmed caregiver ready, willing and able to care for patient at discharge: Confirmed with: lives at [facility] Living Arrangements Current Residence: Number of Floors Number of Entry Steps: Bed/Bath Levels: Facility: Longterm/Residental Care Facility Name: [facility] Plan to Return: Lives with: Other (Comment) Support Systems: Family members Activities of Daily Living Ambulation: Total Care Bathing/Dressing: Total Care Elimination/Continence/Toileting: Assistance Feeding: Assistance Who Assists with Activities of Daily Living: staff at [facility] Instrumental Activities of Daily Living Prescription Coverage: Pharmacy Used: Medication Management: Transportation/Shopping: Transportation Mode: Needs Assistance with Transportation at Discharge: Meal Preparation: Assistance Provider Meal Prep Assistance Provider Name: staff Laundry/Cleaning: Assistance Provider Laundry/Cleaning Assistance Provider Name: staff Finances/Bill Paying: Assistance Provider Finances/Bill Payer Assistance Provider Name: staff Communication: Independent Types of Care Services/Equipment Utilized Care Services: Dialysis Type: Durable Medical Equipment: Wheelchair (standard or power) Patient's Goal/Discharge Plan Patient expects to be discharged to: back to [facility] Discharge Planning Actions: No needs identified Patient's Choice Rights and [employer] and Collaborative Relationships Disclosed as Indicated for Post-Acute Care: Interdisciplinary Team Engagement: PT/OT Social Work Referral for: Additional Information: Patient remains on H6 after fall s/p [facility] 01/25/2023. Discharge order noted. Call placed to Missy Whitfield sister of patient. Missy answered admission questions. Patient lives at [facility] and uses a w/c at baseline, staff assists with all care. [facility] patient is at intermediate level of care and is a bedhold, able to take patient back today. tail board worker aware of need to transport. TCC to assist and follow as needed. Nyla Haider RN Referral placed to [facility] via [facility] per TCC request. Await review and response regarding ability to accept. TCC notified. Problem: Knowledge Deficit Goal: Patient/family/caregiver demonstrates understanding of disease process, treatment plan, medications, and discharge instructions Outcome: Progressing Flowsheets (Taken 01/26/2023 1010) Patient/family/caregiver demonstrates understanding of disease process, treatment plan, medications, and discharge instructions: Complete learning assessment and assess knowledge base Provide teaching via preferred learning methods Problem: Potential for Compromised Skin Integrity Goal: Skin Integrity is Maintained or Improved Outcome: Progressing Flowsheets (Taken 01/26/2023 1010) Skin integrity is maintained or improved: Assess and monitor skin integrity Relieve pressure to bony prominences Paged to Pt Rm for concern of mental status change control coordinator the course of the evening. Pt POD #0 for hemiarthroplasty of hip hip. Has received Oxycodone 5mg, scheduled Haldol and Lyrica approximately 5hrs ago. On arrival to . Pt sleeping, heavily, slow to rouse w/ tactile stimulation. Takes approx 10sec to response but does so appropriately w/ Yes/No answers. Minimal movement of arms, legs but does make attempt to move limbs, smile during my assessment. - Lats CT from 01/24 negative for acute process. Initial concern is for oversedation - Per RN Pt has been progressively less responsive since the beginning of her shift - no reported acute mental status change or specific neural focal deficit. To be through will request formal NIHSS assessment by Rapid Response, Administer IV Narcan to determine (Pt does have Haldol, Lyrica on board) and will order STAT CT Head for this mental status change Called to see patient for decreased mental status, confusion. Patient had a hemiarthroplasty of right hip on 01/25/2023. Patient Ativan at 1328, Oxycodone at 1506, Haldol at [address] Domínguez was up to see patient, requested Rapid response come up to assess neuro status. Upon our arrival, patient awake in bed, responds to name. Patient has hx dementia. Unable to state age correctly, states she is at [facility] . She does not recall why she is here. She moves upper extremities upon command, no drift. Right leg is operative leg, follows commands with left leg. Sensation intact. Pupils equal and react briskly to light . No facial assymmetry, no gaze palsy, visual field intact with threat. Speech clear. She can answer some questions appropriately while conversing. Denies any pain at this time. No focal deficits noted. Mbs 145. VSS. In NAD. Dr Domínguez updated. Order received for Narcan. This was given , no improvement in mental status. Order received for CT scan Pt to floor with transport, nad, resp non labored, alert and denies any pain Report called to floor, transport initiated [facility] [address] [facility] [id number] Dept: [phone] Loc: [phone] Operative Report Patient Name: Claribel Stoll Date of : 1955 Date of Surgery: 01/25/23 Pre-operative diagnosis: Right displaced femoral neck fracture Post-operative diagnosis: Same Procedure(s): Cemented hemiarthroplasty of right hip (CPT 75465) Surgeon: Randee Oliver M.D. Axle Polisher(s): Jericho Maradiaga M.D. Anesthesia: General EBL: 50 cc IVF: Crystalloid Medications: Ancef 2 grams IV Implants: Burden N Nephew Conquest stem size 10 standard, Head size -3 Clinical History/Indication for Surgery The patient is a 67 y.o. year old female who was presents for operative fixation of a displaced femoral neck fracture. Typical indications for surgery were reviewed and hemiarthroplasty was recommended. Risks of surgery in general were reviewed including, but not limited to, infection, fracture, subsidence, instability, need for additional procedures, failure of fixation which would require revision, damage to normal structures as well as medical complications such as NH, stroke, PE, DVT, and even . Patient and any family present were given opportunity to ask questions and consider her options ultimately electing to proceed with surgery. No guarantees were given or implied. Operative Narration The patient was identified in the pre-operative holding area. The surgical site was identified and marked. Informed consent was obtained. The patient was then brought to the operating room and placed supine on the operating table. Anesthesia was administered and care of the head, neck, and airway was maintained by the anesthesia staff throughout the entire procedure. Patient was turned lateral decubitus with the operative hip facing up. Axillary roll was placed. All bony prominences were identified and padded. The operative leg was prepped and draped in the usual sterile fashion. A surgical timeout was performed. Antibiotics were confirmed to have been given. A posterior approach to the hip was made incising skin and subcutaneous tissues down to the iliotibial band. This was divided in line with skin and carried into the gluteus ron fascia. The muscle was split along its fibers with finger dissection. The Charnley was placed after palpating and protecting the sciatic nerve. With the medius retracted, the short external rotators and posterior hip capsule were reflected from the posterior femoral neck until the lesser could be palpated and the hip was exposed. This dissection was curved posteriorly along the superior margin of the piriformis. Labrum was not incised. With retractors in place, the femoral neck cut was made approximately one finger breadth above the lesser trochanter. The femoral head was removed and sized and any remaining neck fragments were excised. Two tagging sutures were placed into the piriformis and posterior capsule for later repair through drill holes. With the leg internally rotated, the proximal femur was prepared starting with the box osteotome and canal finder. Baton reamers were passed until cortical chatter was obtained followed by sequential broaching until the last broach obtained good fit within the femur. A trial reduction was performed to ensure correct leg length, hip stability, and soft tissue tensioning. Once appropriate sizing was completed the hip was dislocated and the trial components were removed. The canal was irrigated and dried and a cement restrictor placed approximately 1cm distal to the centralizer. After filling the canal and pressurizing, the final implants were impacted in standard fashion and held until cement was cured. Final reduction was performed. Two drill holes were made in the greater trochanter and final irrigation performed. The postero-superior limb of the capsulotomy was closed with interrupted #2 Ethibond sutures. The two tagging sutures were then pulled thought the greater trochanter and tied with the hip in external rotation. Layered closure was performed including iliotibial band, subcutaneous tissues and skin. A sterile dressing was applied. The patient was turned supine. Blankets were placed between the knees. Once the patient was awakened from anesthesia, they were transported to the PACU in stable condition, having tolerated surgery well with no immediate complications. This operative report was prepared and signed by Randee Oliver MD at 12/03/23, 9:17 AM Post op Plan: WBAT DVT prophylaxis Abx x 24hrs Posterior hip precautions x 6 wks Problem: Knowledge Deficit Goal: Patient/family/caregiver demonstrates understanding of disease process, treatment plan, medications, and discharge instructions Outcome: Progressing Problem: Potential for Compromised Skin Integrity Goal: Skin Integrity is Maintained or Improved Outcome: Progressing Goal: Nutritional status is improving Outcome: Progressing documented in this encounter [facility] 01-26-2023 Plan of care note Problem: Knowledge Deficit Goal: Patient/family/caregiver demonstrates understanding of disease process, treatment plan, medications, and discharge instructions 01/26/2023 1457 by Yumi Feng RN Outcome: Completed 01/26/2023 1010 by Yumi Feng RN Outcome: Progressing Flowsheets (Taken 01/26/2023 1010) Patient/family/caregiver demonstrates understanding of disease process, treatment plan, medications, and discharge instructions: Complete learning assessment and assess knowledge base Provide teaching via preferred learning methods Problem: Potential for Compromised Skin Integrity Goal: Skin Integrity is Maintained or Improved 01/26/2023 1457 by Yumi Feng RN Outcome: Completed 01/26/2023 1010 by Yumi Feng RN Outcome: Progressing Flowsheets (Taken 01/26/2023 1010) Skin integrity is maintained or improved: Assess and monitor skin integrity Relieve pressure to bony prominences Goal: Nutritional status is improving Outcome: Completed Problem: Urinary Incontinence Goal: Perineal skin integrity is maintained or improved Outcome: Completed [facility] 01-26-2023 Note Formatting of this n ote might be different from the original. Discharge med list transmitted to Return [facility] via [facility] per TCC request. [facility] 01-26-2023 Note Formatting of this n ote might be different from the original. Discharge med list transmitted to Return [facility] via [facility] per TCC request. [facility] 01-26-2023 Note Formatting of this n ote might be different from the original. Transport arranged for 1600 today to tranfer patient to [facility]. RN, JJ, US, [facility], sister (Missy) were notified. [facility] 01-26-2023 Note Formatting of this n ote might be different from the original. Transport arranged for 1600 today to tranfer patient to [facility]. RN, JJ, US, [facility], sister (Missy) were notified. [facility] 01-26-2023 Note Referral placed to [facility] via [facility] per TCC request. Await review and response regarding ability to accept. TCC notified. [facility] 01-26-2023 Note Formatting of this n ote might be different from the original. Care Managment Initial Assessment Date: 01/26/2023 Patient Name: Claribel Stoll : 1955 Patient Information Source of Information: Patient Director Of Entertainment Name/Contact Information: Missy Whitfield - sister Cognition/Language: Confused at baseline Permission given to speak with patient medical detail representative/caregiver as indicated: Confirmation of Payer with patient/family: Yes Payer Name: [employer] [place]: Confirmation of Primary Care Physician: Confirmed PCP Name: morris Carr Seen in last 2 years?: Yes Primary Caregiver: If assistance needed, confirmed caregiver ready, willing and able to care for patient at discharge: Confirmed with: lives at [facility] Living Arrangements Current Residence: Number of Floors Number of Entry Steps: Bed/Bath Levels: Facility: Longterm/[facility]idental Care Facility Name: [facility] Plan to Return: Lives with: Other (Comment) Support Systems: Family members Activities of Daily Living Ambulation: Total Care Bathing/Dressing: Total Care Elimination/Continence/Toileting: Assistance Feeding: Assistance Who Assists with Activities of Daily Living: staff at [facility] Instrumental Activities of Daily Living Prescription Coverage: Pharmacy Used: Medication Management: Transportation/Shopping: Transportation Mode: Needs Assistance with Transportation at Discharge: Meal Preparation: Assistance Provider Meal Prep Assistance Provider Name: staff Laundry/Cleaning: Assistance Provider Laundry/Cleaning Assistance Provider Name: staff Finances/Bill Paying: Assistance Provider Finances/Bill Payer Assistance Provider Name: staff Communication: Independent Types of Care Services/Equipment Utilized Care Services: Dialysis Type: Durable Medical Equipment: Wheelchair (standard or power) Patient's Goal/Discharge Plan Patient expects to be discharged to: back to [facility] Discharge Planning Actions: No needs identified Patient's Choice Rights and [employer] and Collaborative Relationships Disclosed as Indicated for Post-Acute Care: Interdisciplinary Team Engagement: PT/OT Social Work Referral for: Additional Information: Patient remains on H6 after fall s/p [facility] 01/25/2023. Discharge order noted. Call placed to Missy Madison sister of patient. Missy answered admission questions. Patient lives at [facility] and uses a w/c at baseline, staff assists with all care. [facility] patient is at intermediate level of care and is a bedhold, able to take patient back today. tail board worker aware of need to transport. TCC to assist and follow as needed. Nyla Haider RN [facility] 01-26-2023 Note Formatting of this n ote might be different from the original. Care Managment Initial Assessment Date: 01/26/2023 Patient Name: Claribel Stoll : 1955 Patient Information Source of Information: Patient Director Of Entertainment Name/Contact Information: Missy Whitfield - sister Cognition/Language: Confused at baseline Permission given to speak with patient medical detail representative/caregiver as indicated: Confirmation of Payer with patient/family: Yes Payer Name: [employer] [place] Medicare : Confirmation of Primary Care Physician: Confirmed PCP Name: morris Carr Seen in last 2 years?: Yes Primary Caregiver: If assistance needed, confirmed caregiver ready, willing and able to care for patient at discharge: Confirmed with: lives at [facility] Living Arrangements Current Residence: Number of Floors Number of Entry Steps: Bed/Bath Levels: Facility: Longterm/[facility]idental Care Facility Name: [facility] Plan to Return: Lives with: Other (Comment) Support Systems: Family members Activities of Daily Living Ambulation: Total Care Bathing/Dressing: Total Care Elimination/Continence/Toileting: Assistance Feeding: Assistance Who Assists with Activities of Daily Living: staff at [facility] Instrumental Activities of Daily Living Prescription Coverage: Pharmacy Used: Medication Management: Transportation/Shopping: Transportation Mode: Needs Assistance with Transportation at Discharge: Meal Preparation: Assistance Provider Meal Prep Assistance Provider Name: staff Laundry/Cleaning: Assistance Provider Laundry/Cleaning Assistance Provider Name: staff Finances/Bill Paying: Assistance Provider Finances/Bill Payer Assistance Provider Name: staff Communication: Independent Types of Care Services/Equipment Utilized Care Services: Dialysis Type: Durable Medical Equipment: Wheelchair (standard or power) Patient's Goal/Discharge Plan Patient expects to be discharged to: back to [facility] Discharge Planning Actions: No needs identified Patient's Choice Rights and [employer] and Collaborative Relationships Disclosed as Indicated for Post-Acute Care: Interdisciplinary Team Engagement: PT/OT Social Work Referral for: Additional Information: Patient remains on H6 after fall s/p [facility] 01/25/2023. Discharge order noted. Call placed to Missy Whitfield sister of patientJimy Louis answered admission questions. Patient lives at [facility] and uses a w/c at baseline, staff assists with all care. [facility] patient is at intermediate level of care and is a bedhold, able to take patient back today. tail board worker aware of need to transport. TCC to assist and follow as needed. Nyla Haider RN [facility] 01-26-2023 Note Hospitalist Discharg e Summary Claribel Stoll : 1955 Admit date: 01/24/2023 Discharge date: 01/26/2023 Admitting Physician: Kizzy Garsia MD Primary Care Physician: Morris Carr Visit Status: Inpatient Code Status: Full Code Acute, acute on chronic, unstable/uncontrolled chronic problems/diagnoses: Right displaced femoral neck fracture s/p Cemented hemiarthroplasty of right hip on 01/25/23 Leukocytosis likely reactive Stable chronic problems affecting care, new non-acute diagnoses: Hypothyroidism Prior CVA Vascular dementia Anxiety/Depression Past Medical History: Diagnosis Date Anxiety Depression Fractures 03/05/2018 left proximal humerus Procedures: Cemented hemiarthroplasty of right hip on 01/25/23 Hospital Course: Claribel is a 67 y.o. female with past medical history below who presented to ED from SNF for further evaluation of Rt hip fracture after a fall. Pt is a poor historian due to underlying dementia, states that she tripped and fell. X-rays showed Rt hip fracture so transferred to ED for further management and evaluation. Denied loss of consciousness, dizziness, chest pain, nausea, vomiting, fever, chills, or abdominal pain. Seen by ortho and taken to OR for successful repair on 01/25/23. See discharge diagnoses list above and medication adjustments below in med rec.The patient is discharged in improved and stable condition. Consults: IP CONSULT TO ORTHOPAEDIC SURGERY Discharge Instructions: Diet: Dietary Orders (From admission, onward) Start Ordered 01/25/23 1146 Adult diet Regular Diet effective now Question: Diet type Answer: Regular 01/25/23 1145 Activity: as tolerated Recommended Outpatient Tests: Disposition: Patient discharged in stable condition to SNF . Greater than 31 minutes spent discharging the patient and coming up with patient discharge plan. Vitals: BP 105/59 Pulse 79 Temp 37 ?C (98.6 ?F) (Temporal) Resp 16 SpO2 93% Pulse Ox: SpO2 Av.7 % Min: 92 % Max: 98 % Supplemental O2: O2 Flow Rate (L/min): 3 L/min Physical Exam Cardiovascular: Rate and Rhythm: Normal rate and regular rhythm. Pulses: Normal pulses. Heart sounds: Normal heart sounds. Pulmonary: Effort: Pulmonary effort is normal. Breath sounds: Normal breath sounds. Abdominal: General: Bowel sounds are normal. Palpations: Abdomen is soft. Neurological: Mental Status: Mental status is at baseline. LABS: Recent Labs 01/24/2321601/25/238 01/26/23 010 NA 137 135 137 K 4.3 3.8 3.9 CL 105 105 104 CO2 25 21* 24 BUN 19* 14 12 CREATININE 0.73 0.58 0.53 GLUCOSE 116* 97 129* CALCIUM 8.9 8.4 8.7 Recent Labs 01/24/2321601/25/238 01/26/23 010 WBC 14.6* 10.9* 14.7* RBC 4.18 3.81 3.75* HGB 11.3* 10.4* 10.2* HCT 35.6 32.9* 32.0* MCV 85.2 86.3 85.2 MCH 27.0 27.4 27.1 MCHC 31.7* 31.7* 31.8* RDW 14.7* 15.0* 14.9* PLT 292 250 259 MPV 8.3 8.2 9.1 Discharge Medications: Medication List START taking these medications acetaminophen 325 MG tablet Commonly known as: Tylenol Take 2 tablets (650 mg) by mouth every 6 hours as needed for mild pain (1-3) or fever (For temp greater than 100.4 F (38 C)) for up to 10 days. enoxaparin 40 MG/0.4ML solution prefilled syringe Commonly known as: Lovenox Inject 0.4 mL (40 mg) under the skin every 24 hours. polyethylene glycol (PEG) 3350 17 g packet Commonly known as: Miralax Take 17 g by mouth Daily as needed (constipation) for up to 3 days. CHANGE how you take these medications LORazepam 0.5 MG tablet Commonly known as: Ativan Take 1 tablet (0.5 mg) by mouth 2 times daily at 0800 and 1400 for 7 days. What changed: medication strength how much to take CONTINUE taking these medications aspirin 81 MG EC tablet atorvastatin 20 MG tablet Commonly known as: Lipitor Azo D-Mannose 500 MG capsule Generic drug: D-Mannose buPROPion XL 150 MG 24 hr tablet Commonly known as: Wellbutrin XL citalopram 10 MG tablet Commonly known as: CeleXA haloperidol 1 MG tablet Commonly known as: Haldol HM Lidocaine Patch 4 % patch Generic drug: Lidocaine levothyroxine 50 MCG tablet Commonly known as: Synthroid, Levoxyl melatonin 5 MG tablet polycarbophil 625 MG tablet Commonly known as: Fibercon pregabalin 100 MG capsule Commonly known as: Lyrica Take 1 capsule (100 mg) by mouth 3 times daily. Where to Get Your Medications You can get these medications from any pharmacy Bring a paper prescription for each of these medications LORazepam 0.5 MG tablet pregabalin 100 MG capsule Information about where to get these medications is not yet available Ask your nurse or doctor about these medications acetaminophen 325 MG tablet enoxaparin 40 MG/0.4ML solution prefilled syringe polyethylene glycol (PEG) 3350 17 g packet Recommended Follow-up: Randee Oliver MD [address] [facility] [address] [facility] [address] [phone] (more content not included)... [facility] 01-26-2023 Note OCCUPATIONAL THERAPY [facility] Initial Evaluation Name/MRN: Claribel Stoll ([id number]) Evaluation Date: 01/26/2023 Date of : 1955 Admission Date: 01/24/2023 12:48 AM Age: 67 y.o. [facility] Discharge Recommendation: SNF Equipment Needed: front wheeled walker Assessment IMPRESSION: Admitted s/p R hip hemiarthroplasty on 01/25, WBAT with posterior hip precautions. Injury result of a fall, fell at facility, hx of dementia. Confused, oriented to self only and unable to provide any reliable hx. Pt inconsistently follows commands and needs increased time for all commands and responses. Pt stood from chair with mod A, required max/dependent LB dressing d/t confusion and pain. Pt will need constant cues for posterior hip precautions. At this time pt will need SNF placement d/t cognition and LE weakness limiting indep with ADLs and mob. Performance Deficits /Impairments: Decreased Functional Mobility, Decreased ADL status, Decreased Strength, Decreased Safety Awareness, Decreased Cognition, Decreased Endurance, and Decreased High Level IADLs Prognosis: Fair Decision Making: Low Complexity Subjective In chair, denies pain at rest Pain: Pt denies any current pain. Past Medical History: Past Medical History: Diagnosis Date Anxiety Depression Fractures 03/05/2018 left proximal humerus Past Surgical History: Past Surgical History: Procedure Laterality Date OTHER SURGICAL HISTORY LLE surgery Admission Diagnosis: Patient Active Problem List Diagnosis Date Noted Closed fracture of right hip, initial encounter ([facility]) 01/24/2023 Left arm pain 03/06/2018 Closed fracture of left proximal humerus 03/06/2018 Medical Precautions: No active isolations Proper PPE donned/doffed in accordance with facility standards. Fall Risk: [place] Fall Risk Score: 100 (High Risk) Precautions/Restrictions: Right LE Weight Bearing: Weight Bearing As Tolerated Left LE Weight Bearing: Weight Bearing As Tolerated Hip Precautions: Posterior Hip Precautions Family/Caregiver Present: none Overall Cognitive Status: Exceptions - Attention span: difficulty dividing attention - Memory: decreased recall of biographical information, decreased recall of precautions, decreased recall of recent events, decreased short term memory, and decreased longterm memory - Safety judgement: decreased awareness of need for assistance and decreased awareness of need for safety - Problem solving: assistance required to generate solutions - Insights: decreased awareness of deficits and not aware of deficits Overall Orientation Status: Oriented to Person, Disoriented to Situation, Disoriented to Time, and Disoriented to Place Social/Functional History Patient admitted from [facility] . Assistive Equipment: Unknown Prior Level of Function ADL Assistance: Pt unable to report Ambulation Assistance: Chart reports pt uses FWW with assist Transfer Assistance: Pt unable to report Objective ADLs LE Dressing: Max Assist Upper Extremity Assessment AROM: WFL PROM: Not assessed this session Strength: Not assessed this session. Vision: not assessed this session Hearing: normal Bed Mobility In chair Transfers/Functional Mobility Sit to stand: Mod Assist Stand to sit: Mod Assist Standing balance: Min Assist Device(s) used: Used therapist for support. AM-PAC AM-PAC Inpatient Daily Activity Raw Score: 17 ADL Inpatient CMS G-Code Modifier: CK Plan Pt would benefit from skilled acute OT services to address Strengthening, Balance Training, Functional Mobility Training, Endurance Training, Gait Training, Cognitive Reorientation, Pain Management, Safety Education and Training, Patient/Caregiver Training, Equipment Evaluation/Education, and Self-Care/ADL Training. Frequency: 1x/week for 4 weeks Barriers: Pain, Confusion, Cognitive deficit, and Lower extremity weakness Prognosis: fair Safety/Education Safety Safety Devices in place: All fall risk precautions in place, call light within reach, left in chair, and chair alarm in place Restraints: No Education Education Given To: patient Education Provided: OT Role, Plan of Care, and Precautions Education Method: Verbal Barriers to Learning: Cognition Education Outcome: Continued Education Needed Goals Patient Stated Goal: Patient unable to participate in goal setting at this time. Encounter Problems Encounter Problems (Active) Balance Patient will maintain dynamic standing balance for 3 minutes with SBA in order to demonstrate decreased risk of falling. Start: 01/26/23 Expected End: 02/23/23 Cognition Patient will follow 1 step commands 100% of time Start: 01/26/23 Expected End: 02/23/23 Dressings Lower Extremities Patient will dress lower body with AE min A Start: 01/26/23 Expected End: 02/23/23 Grooming Patient will complete daily grooming tasks EOB setupA Start: 01/26/23 Expected End: (more content not included)... [facility] 01-26-2023 Note Hospitalist Progress Note 01/26/2023 Subjective: Admit Date: 01/24/2023 PCP: Morris Carr Room#: H-6106/H-6106 A Brief Hospital course: Claribel is a 67 y.o. female with past medical history below who presented to ED from SNF for further evaluation of Rt hip fracture after a fall. Pt is a poor historian due to underlying dementia, states that she tripped and fell. X-rays showed Rt hip fracture so transferred to ED for further management and evaluation. Denied loss of consciousness, dizziness, chest pain, nausea, vomiting, fever, chills, or abdominal pain. Seen by ortho and taken to OR for successful repair on 01/25/23. Interval History: 01/26-Patient with some confusion and increased drowsiness overnight. received Oxycodone 5mg, scheduled Haldol and Lyrica. Evaluated by new vehicle sales consultant. Also complaining of chest pain this morning however EKG and other testing normal. Case and plan discussed with patient and bedside nurse and case management. All questions answered. Adult diet Regular 24HR INTAKE/OUTPUT: Intake/Output Summary (Last 24 hours) at 01/26/2023 1026 Last data filed at 01/26/2023 0600 Gross per 24 hour Intake -- Output 1175 ml Net -1175 ml Past Medical History: Past Medical History: Diagnosis Date Anxiety Depression Fractures 03/05/2018 left proximal humerus LABS: CBC: Recent Labs 01/24/23 0217 01/25/23 0038 01/26/23 0105 WBC 14.6* 10.9* 14.7* RBC 4.18 3.81 3.75* HGB 11.3* 10.4* 10.2* HCT 35.6 32.9* 32.0* MCV 85.2 86.3 85.2 RDW 14.7* 15.0* 14.9* PLT 292 250 259 BMP: Recent Labs 01/24/23 0217 01/25/23 0038 01/26/23 0105 NA 137 135 137 K 4.3 3.8 3.9 CL 105 105 104 CO2 25 21* 24 BUN 19* 14 12 CREATININE 0.73 0.58 0.53 GLUCOSE 116* 97 129* CALCIUM 8.9 8.4 8.7 ANIONGAP 8 9 8 LIVER PROFILE: Recent Labs 01/26/23 010 AST 28 ALT 11 BILITOT 0.8 ALKPHOS 70 PROT 6.9 PT/INR: Recent Labs 01/24/23 0601 01/25/23 0038 PROTIME 10.6 10.7 INR 1.0 1.0 CARDIAC ENZYMES: Recent Labs 01/24/23216 TROPONINI <0.012 Procalcitonin: No results found for: "PROCAL" COVID-19 PCR: No results for input(s): "COVID19" in the last 72 hours. Objective: Vitals: BP 105/59 Pulse 79 Temp 37 ?C (98.6 ?F) (Temporal) Resp 16 SpO2 93% Pulse Ox: SpO2 Av.4 % Min: 92 % Max: 99 % Supplemental O2: O2 Flow Rate (L/min): 3 L/min Physical Exam Cardiovascular: Rate and Rhythm: Normal rate and regular rhythm. Pulses: Normal pulses. Heart sounds: Normal heart sounds. Pulmonary: Effort: Pulmonary effort is normal. Breath sounds: Normal breath sounds. Abdominal: General: Bowel sounds are normal. Palpations: Abdomen is soft. Neurological: General: No focal deficit present. Mental Status: Mental status is at baseline. Medications: Current Facility-Administered Medications: acetaminophen (Tylenol) tablet 650 mg, 650 mg, Oral, q6h PRN OR acetaminophen (Tylenol) suppository 650 mg, 650 mg, Rectal, q6h PRN, Jericho Maradiaga MD aspirin EC tablet 81 mg, 81 mg, Oral, Daily, Jericho Maradiaga MD, 81 mg at 01/26/23 08 atorvastatin (Lipitor) tablet 20 mg, 20 mg, Oral, Daily, Jericho Maradiaga MD, 20 mg at 01/26/23 0829 buPROPion XL (Wellbutrin XL) 24 hr tablet 150 mg, 150 mg, Oral, Daily, Jericho Maradiaga MD, 150 mg at 01/26/23 0830 citalopram (CeleXA) tablet 20 mg, 20 mg, Oral, Daily, Jericho Maradiaga MD, 20 mg at 01/26/23 08 enoxaparin (Lovenox) syringe 40 mg, 40 mg, SubCUTAneous, Daily, Savanna Lutz DO haloperidol (Haldol) tablet 1 mg, 1 mg, Oral, TID, Jericho Maradiaga MD, 1 mg at 01/26/23 0829 Influenza Vac A&B SA Adj quadrivalent (Fluad) vaccine 0.5 mL, 0.5 mL, IntraMUSCular, Once, Jericho Maradiaga MD levothyroxine (Synthroid, Levoxyl) tablet 50 mcg, 50 mcg, Oral, qAM AC, Jericho Maradiaga MD, 50 mcg at 01/26/23 0616 LORazepam (Ativan) tablet 1 mg, 1 mg, Oral, BID- 8&2, Jericho Maradiaga MD, 1 mg at 01/26/23 0829 melatonin tablet 5 mg, 5 mg, Oral, Nightly PRN, Jericho Maradiaga MD naloxone (Narcan) injection 0.4 mg, 0.4 mg, IntraVENous, PRN, Morris Domínguez MD, 0.4 mg at 01/26/23 0147 oxyCODONE (Roxicodone) immediate release tablet 5 mg, 5 mg, Oral, q6h PRN, Jericho Maradiaga MD, 5 mg at 01/25/23 1506 polyethylene glycol (PEG) 3350 (Miralax) packet 17 g, 17 g, Oral, Daily PRN, Jericho Maradiaga MD pregabalin (Lyrica) capsule 100 mg, 100 mg, Oral, TID, Jericho Maradiaga MD, 100 mg at 01/26/23 0829 Assessment Data: (CAT1) Reviewed 3 or more notes from different specialty or health system (each=1). (LOW: 2x CAT1 or independent historian MOD: 3x CAT1 or 1x CAT3 EXTENSIVE: 3x CAT1 and 1x CAT3) Acute, acute on chronic, unstable/uncontrolled chronic problems/diagnoses: Right displaced femoral neck fracture s/p Cemented hemiarthroplasty of right hip on 01/25/23 Leukocytosis likely reactive Stable chronic problems affecting care, new non-acute diagnoses: Hypothyroidism Prior CVA Vascular dementia Anxiety/Depression Plan As a resul (more content not included)... [facility] 01-26-2023 Note Formatting of this n ote might be different from the original. Referral placed to Return SNF- [facility] via [facility] per TCC request. Await review and response regarding ability to accept. TCC notified. [facility] 01-26-2023 Note Formatting of this n ote might be different from the original. Referral placed to Return SNF- [facility] via [facility] per TCC request. Await review and response regarding ability to accept. TCC notified. [facility] 01-26-2023 Note PHYSICAL THERAPY [facility] Initial Evaluation Name/MRN: Claribel Stoll ([id number]) Evaluation Date: 01/26/2023 Date of : 1955 Admission Date: 01/24/2023 12:48 AM Age: 67 y.o. Room/Bed: 6106/H-6106 A Discharge Recommendation: SNF Equipment Needed: TBD at next level of care Assessment IMPRESSION: Patient presents with weakness, pain, and impaired balance limiting mobility following recent fall with subsequent R hip hemiarthroplasty completed on 01/25/23. Patient is requiring mod assist for bed mobility and transfers. She is unable to ambulate at this time. Recommend SNF at discharge. Diagnosis: R hip fx, 01/24/23 R hip hemiarthroplasty Prognosis: fair Performance Deficits /Impairments: Increased Pain, Decreased Functional Mobility, Decreased ROM, Decreased Strength, and Decreased Balance Decision Making: Medium Complexity Subjective Patient in bed. She inconsistently responds to questions and instruction. Pain: Patient reports pain in different locations at various times during PT evaluation. Patient reports "head doesn't feel right" when sitting edge of bed but she could not specify if this was pain or another symptom. She also reports RLE pain with mobility and R upper chest pain after transferring to chair. RN in room and notified at end of PT session. Past Medical History: Past Medical History: Diagnosis Date Anxiety Depression Fractures 03/05/2018 left proximal humerus Past Surgical History: Past Surgical History: Procedure Laterality Date OTHER SURGICAL HISTORY LLE surgery Admission Diagnosis: Patient Active Problem List Diagnosis Date Noted Closed fracture of right hip, initial encounter ([facility]) 01/24/2023 Left arm pain 03/06/2018 Closed fracture of left proximal humerus 03/06/2018 Medical Precautions: No active isolations Proper PPE donned/doffed in accordance with facility standards. Fall Risk: Durand Fall Risk Score: 100 (High Risk) Precautions/Restrictions: Right LE Weight Bearing: Weight Bearing As Tolerated Hip Precautions: No Hip Flexion > 90 Degrees, No Adduction, No Hip IR, and Posterior Hip Precautions Lines/Drains/Airways: PIV Family/Caregiver Present: none Overall Cognitive Status: Exceptions - Arousal/alertness: appropriate responses to stimuli - Following commands: inconsistently follows commands - Safety judgement: decreased awareness of need for safety - Problem solving: assistance required to generate solutions, assistance required to implement solutions, assistance required to identify errors made, assistance required to correct errors made, and decreased awareness of errors - Insights: decreased awareness of deficits - Initiation: requires cues for all - Sequencing: requires cues for some Overall Orientation Status: Unable to Assess; Patient does not answer orientation questions. Patient will respond to her name but will not state her name or date when questioned. Per RN, she responded earlier and was able to state date. Vision: not assessed this session Hearing: normal Social/Functional History Patient admitted from [facility] . Assistive Equipment: Unknown Prior Level of Function ADL Assistance: Unknown Ambulation Assistance: Per patient she uses a walker with assist. Transfer Assistance: Unknown Objective Lower Extremity Assessment AROM: Unable to assess d/t patient cognition. PROM: Unable to assess d/t patient cognition. Strength: Unable to assess due to patient cognition, not following commands. Bed Mobility: Supine to sit: Mod Assist, dependent for following hip precautions Scooting: Mod Assist Transfers Sit to stand: Mod Assist Stand to sit: Mod Assist Bed to chair: Mod Assist Ambulation Attempted. Patient was unable to take steps when standing. Exercises Exercises Comments: Attempted ther ex. Patient unable to follow instructions (verbal, tactile, demonstrative) for completing ther ex. Outcome Measures AM-PAC How much HELP from another person do you currently need Turning from your back to your side while in a flat bed without using bedrails?: A Little Moving from lying on your back to sitting on the side of a flat bed without using bedrails?: A Lot Moving to and from a bed to a chair (including a wheelchair)?: A Lot Standing up from a chair using your arms (wheelchair or bedside chair)?: A Lot Walking in a hospital room?: Total Stair climbing assessed?: No AM-PAC Inpatient Mobility Raw Score (No Stairs) : 10 JH-HLM JH-HLM Score: Transferred to chair/commode Plan Pt would benefit from skilled acute PT services to address Strengthening, ROM, Balance Training, Functional Mobility Training, Gait Training, and Safety Education and Training. Frequency: 5x/week for 2 weeks Barriers: Pain, New weightbearing/ROM restrictions, and Cognitive deficit Safety/Education Safety Safety Devices in place: call light within reach, left in chair, chair al (more content not included)... [facility] 01-26-2023 Hospital course Narrative Images from the original note were not included. Hospitalist Discharge Summary Claribel Stoll : 1955 Admit date: 01/24/2023 Discharge date: 01/26/2023 Admitting Physician: Kizzy Garsia MD Primary Care Physician: Morris Carr Visit Status: Inpatient Code Status: Full Code Acute, acute on chronic, unstable/uncontrolled chronic problems/diagnoses: Right displaced femoral neck fracture s/p Cemented hemiarthroplasty of right hip on 01/25/23 Leukocytosis likely reactive Stable chronic problems affecting care, new non-acute diagnoses: Hypothyroidism Prior CVA Vascular dementia Anxiety/Depression Past Medical History: Diagnosis Date Anxiety Depression Fractures 03/05/2018 left proximal humerus Procedures: Cemented hemiarthroplasty of right hip on 01/25/23 Hospital Course: Claribel is a 67 y.o. female with past medical history below who presented to ED from SNF for further evaluation of Rt hip fracture after a fall. Pt is a poor historian due to underlying dementia, states that she tripped and fell. X-rays showed Rt hip fracture so transferred to ED for further management and evaluation. Denied loss of consciousness, dizziness, chest pain, nausea, vomiting, fever, chills, or abdominal pain. Seen by ortho and taken to OR for successful repair on 01/25/23. See discharge diagnoses list above and medication adjustments below in med rec.The patient is discharged in improved and stable condition. Consults: IP CONSULT TO ORTHOPAEDIC SURGERY Discharge Instructions: Diet: Dietary Orders (From admission, onward) Start Ordered 01/25/23 1146 Adult diet Regular Diet effective now Question: Diet type Answer: Regular 01/25/23 1145 Activity: as tolerated Recommended Outpatient Tests: Disposition: Patient discharged in stable condition to SNF . Greater than 31 minutes spent discharging the patient and coming up with patient discharge plan. Vitals: BP 105/59 Pulse 79 Temp 37 C (98.6 F) (Temporal) Resp 16 SpO2 93% Pulse Ox: SpO2 Av.7 % Min: 92 % Max: 98 % Supplemental O2: O2 Flow Rate (L/min): 3 L/min Physical Exam Cardiovascular: Rate and Rhythm: Normal rate and regular rhythm. Pulses: Normal pulses. Heart sounds: Normal heart sounds. Pulmonary: Effort: Pulmonary effort is normal. Breath sounds: Normal breath sounds. Abdominal: General: Bowel sounds are normal. Palpations: Abdomen is soft. Neurological: Mental Status: Mental status is at baseline. LABS: Recent Labs 01/24/237 01/25/23 0038 01/26/23 0105 NA 137 135 137 K 4.3 3.8 3.9 CL 105 105 104 CO2 25 21* 24 BUN 19* 14 12 CREATININE 0.73 0.58 0.53 GLUCOSE 116* 97 129* CALCIUM 8.9 8.4 8.7 Recent Labs 01/24/23217 01/03/23 0038 01/26/23 0105 WBC 14.6* 10.9* 14.7* RBC 4.18 3.81 3.75* HGB 11.3* 10.4* 10.2* HCT 35.6 32.9* 32.0* MCV 85.2 86.3 85.2 MCH 27.0 27.4 27.1 MCHC 31.7* 31.7* 31.8* RDW 14.7* 15.0* 14.9* PLT 292 250 259 MPV 8.3 8.2 9.1 Discharge Medications: Medication List START taking these medications acetaminophen 325 MG tablet Commonly known as: Tylenol Take 2 tablets (650 mg) by mouth every 6 hours as needed for mild pain (1-3) or fever (For temp greater than 100.4 F (38 C)) for up to 10 days. enoxaparin 40 MG/0.4ML solution prefilled syringe Commonly known as: Lovenox Inject 0.4 mL (40 mg) under the skin every 24 hours. polyethylene glycol (PEG) 3350 17 g packet Commonly known as: Miralax Take 17 g by mouth Daily as needed (constipation) for up to 3 days. CHANGE how you take these medications LORazepam 0.5 MG tablet Commonly known as: Ativan Take 1 tablet (0.5 mg) by mouth 2 times daily at 0800 and 1400 for 7 days. What changed: medication strength how much to take CONTINUE taking these medications aspirin 81 MG EC tablet atorvastatin 20 MG tablet Commonly known as: Lipitor Azo D-Mannose 500 MG capsule Generic drug: D-Mannose buPROPion XL 150 MG 24 hr tablet Commonly known as: Wellbutrin XL citalopram 10 MG tablet Commonly known as: CeleXA haloperidol 1 MG tablet Commonly known as: Haldol HM Lidocaine Patch 4 % patch Generic drug: Lidocaine levothyroxine 50 MCG tablet Commonly known as: Synthroid, Levoxyl melatonin 5 MG tablet polycarbophil 625 MG tablet Commonly known as: Fibercon pregabalin 100 MG capsule Commonly known as: Lyrica Take 1 capsule (100 mg) by mouth 3 times daily. Where to Get Your Medications You can get these medications from any pharmacy Bring a paper prescription for each of these medications LORazepam 0.5 MG tablet pregabalin 100 MG capsule Information about where to get these medications is not yet available Ask your nurse or doctor about these medications acetaminophen 325 MG tablet enoxaparin 40 MG/0.4ML solution prefilled syringe polyethylene glycol (PEG) 3350 17 g packet Recommended Follow-up: Randee Oliver MD [address] [place] [address] [address] [facility] [address] Schedule an appointment as soon as possible for a visit in 2 week(s) Post-Op Check-up Morris Mustafaer [address] [place] [address] [address] [facility] [phone] Follow up in 1 week(s) Complexity of Follow up: [] Moderate Complexity: follow up within 7-14 calendar days (15249) [x] Severe Complexity: follow up within 7 calendar days (58615) Follow up Testing, Pending results or Referrals at Transitional Care Visit: [x] yes [] no Instructions to MA: Please call patient on day after discharge (must document patient contacted within 2 business days of discharge). Follow up questions for MA: 1. Did you get medications filled and taking them as instructed from discharge? 2. Are you following your discharge instructions from your hospital stay? 3. Please confirm patient is scheduled for a follow up appointment within the above time frame. Signed: Savanna Lutz DO Division of Hospitalist Medicine Inpatient Medical Services/[facility] 01/26/2023, 10:44 AM documented in this encounter [facility] 01-26-2023 History of Present illness Narrative Images from the original note were not included. OCCUPATIONAL THERAPY [facility] Initial Evaluation Name/MRN: Claribel Stoll ([id number]) Evaluation Date: 01/26/2023 Date of : 1955 Admission Date: 01/24/2023 12:48 AM Age: 67 y.o. Room/Bed: 6106/6106 A Discharge Recommendation: SNF Equipment Needed: front wheeled walker Assessment IMPRESSION: Admitted s/p R hip hemiarthroplasty on 01/25, WBAT with posterior hip precautions. Injury result of a fall, fell at facility, hx of dementia. Confused, oriented to self only and unable to provide any reliable hx. Pt inconsistently follows commands and needs increased time for all commands and responses. Pt stood from chair with mod A, required max/dependent LB dressing d/t confusion and pain. Pt will need constant cues for posterior hip precautions. At this time pt will need SNF placement d/t cognition and LE weakness limiting indep with ADLs and mob. Performance Deficits /Impairments: Decreased Functional Mobility, Decreased ADL status, Decreased Strength, Decreased Safety Awareness, Decreased Cognition, Decreased Endurance, and Decreased High Level IADLs Prognosis: Fair Decision Making: Low Complexity Subjective In chair, denies pain at rest Pain: Pt denies any current pain. Past Medical History: Past Medical History: Diagnosis Date Anxiety Depression Fractures 03/05/2018 left proximal humerus Past Surgical History: Past Surgical History: Procedure Laterality Date OTHER SURGICAL HISTORY LLE surgery Admission Diagnosis: Patient Active Problem List Diagnosis Date Noted Closed fracture of right hip, initial encounter ([facility]) 01/24/2023 Left arm pain 03/06/2018 Closed fracture of left proximal humerus 03/06/2018 Medical Precautions: No active isolations Proper PPE donned/doffed in accordance with facility standards. Fall Risk: Durand Fall Risk Score: 100 (High Risk) Precautions/Restrictions: Right LE Weight Bearing: Weight Bearing As Tolerated Left LE Weight Bearing: Weight Bearing As Tolerated Hip Precautions: Posterior Hip Precautions Family/Caregiver Present: none Overall Cognitive Status: Exceptions - Attention span: difficulty dividing attention - Memory: decreased recall of biographical information, decreased recall of precautions, decreased recall of recent events, decreased short term memory, and decreased longterm memory - Safety judgement: decreased awareness of need for assistance and decreased awareness of need for safety - Problem solving: assistance required to generate solutions - Insights: decreased awareness of deficits and not aware of deficits Overall Orientation Status: Oriented to Person, Disoriented to Situation, Disoriented to Time, and Disoriented to Place Social/Functional History Patient admitted from [facility] . Assistive Equipment: Unknown Prior Level of Function ADL Assistance: Pt unable to report Ambulation Assistance: Chart reports pt uses FWW with assist Transfer Assistance: Pt unable to report Objective ADLs LE Dressing: Max Assist Upper Extremity Assessment AROM: WFL PROM: Not assessed this session Strength: Not assessed this session. Vision: not assessed this session Hearing: normal Bed Mobility In chair Transfers/Functional Mobility Sit to stand: Mod Assist Stand to sit: Mod Assist Standing balance: Min Assist Device(s) used: Used therapist for support. AM-PAC AM-PAC Inpatient Daily Activity Raw Score: 17 ADL Inpatient CMS G-Code Modifier: CK Plan Pt would benefit from skilled acute OT services to address Strengthening, Balance Training, Functional Mobility Training, Endurance Training, Gait Training, Cognitive Reorientation, Pain Management, Safety Education and Training, Patient/Caregiver Training, Equipment Evaluation/Education, and Self-Care/ADL Training. Frequency: 1x/week for 4 weeks Barriers: Pain, Confusion, Cognitive deficit, and Lower extremity weakness Prognosis: fair Safety/Education Safety Safety Devices in place: All fall risk precautions in place, call light within reach, left in chair, and chair alarm in place Restraints: No Education Education Given To: patient Education Provided: OT Role, Plan of Care, and Precautions Education Method: Verbal Barriers to Learning: Cognition Education Outcome: Continued Education Needed Goals Patient Stated Goal: Patient unable to participate in goal setting at this time. Encounter Problems Encounter Problems (Active) Balance Patient will maintain dynamic standing balance for 3 minutes with SBA in order to demonstrate decreased risk of falling. Start: 01/26/23 Expected End: 02/23/23 Cognition Patient will follow 1 step commands 100% of time Start: 01/26/23 Expected End: 02/23/23 Dressings Lower Extremities Patient will dress lower body with AE min A Start: 01/26/23 Expected End: 02/23/23 Grooming Patient will complete daily grooming tasks EOB setupA Start: 01/26/23 Expected End: 02/23/23 Safety Patient will demo FWW safety during ADLs no cues Start: 01/26/23 Expected End: 02/23/23 Toileting Patient will complete toileting min A Start: 01/26/23 Expected End: 02/23/23 Therapy Time Individual Co-treatment Time In 1028 Time Out 1041 Minutes 13 Tramaine Barrientos OT Patient's Occupational Therapy Plan of Care supervision is transferred to a [facility] Occupational Therapist. Goals and/or treatment plan was established in collaboration with patient/family/other representatives. Images from the original note were not included. Hospitalist Progress Note 01/26/2023 Subjective: Admit Date: 01/24/2023 PCP: Morris Carr Room#: H-6106/H-6109 A Brief Hospital course: Claribel is a 67 y.o. female with past medical history below who presented to ED from SNF for further evaluation of Rt hip fracture after a fall. Pt is a poor historian due to underlying dementia, states that she tripped and fell. X-rays showed Rt hip fracture so transferred to ED for further management and evaluation. Denied loss of consciousness, dizziness, chest pain, nausea, vomiting, fever, chills, or abdominal pain. Seen by ortho and taken to OR for successful repair on 01/25/23. Interval History: 01/26-Patient with some confusion and increased drowsiness overnight. received Oxycodone 5mg, scheduled Haldol and Lyrica. Evaluated by new vehicle sales consultant. Also complaining of chest pain this morning however EKG and other testing normal. Case and plan discussed with patient and bedside nurse and case management. All questions answered. Adult diet Regular 24HR INTAKE/OUTPUT: Intake/Output Summary (Last 24 hours) at 01/26/2023 1026 Last data filed at 01/26/2023 0600 Gross per 24 hour Intake -- Output 1175 ml Net -1175 ml Past Medical History: Past Medical History: Diagnosis Date Anxiety Depression Fractures 03/05/2018 left proximal humerus LABS: CBC: Recent Labs 01/24/2321601/25/23 0038 01/26/23 0105 WBC 14.6* 10.9* 14.7* RBC 4.18 3.81 3.75* HGB 11.3* 10.4* 10.2* HCT 35.6 32.9* 32.0* MCV 85.2 86.3 85.2 RDW 14.7* 15.0* 14.9* PLT 292 250 259 BMP: Recent Labs 01/24/23 0217 01/25/23 0038 01/26/23 0105 NA 137 135 137 K 4.3 3.8 3.9 CL 105 105 104 CO2 25 21* 24 BUN 19* 14 12 CREATININE 0.73 0.58 0.53 GLUCOSE 116* 97 129* CALCIUM 8.9 8.4 8.7 ANIONGAP 8 9 8 LIVER PROFILE: Recent Labs 01/26/23 0105 AST 28 ALT 11 BILITOT 0.8 ALKPHOS 70 PROT 6.9 PT/INR: Recent Labs 01/24/23 0601 01/25/23 0038 PROTIME 10.6 10.7 INR 1.0 1.0 CARDIAC ENZYMES: Recent Labs 01/24/23 0217 TROPONINI <0.012 Procalcitonin: No results found for: "PROCAL" COVID-19 PCR: No results for input(s): "COVID19" in the last 72 hours. Objective: Vitals: BP 105/59 Pulse 79 Temp 37 C (98.6 F) (Temporal) Resp 16 SpO2 93% Pulse Ox: SpO2 Av.4 % Min: 92 % Max: 99 % Supplemental O2: O2 Flow Rate (L/min): 3 L/min Physical Exam Cardiovascular: Rate and Rhythm: Normal rate and regular rhythm. Pulses: Normal pulses. Heart sounds: Normal heart sounds. Pulmonary: Effort: Pulmonary effort is normal. Breath sounds: Normal breath sounds. Abdominal: General: Bowel sounds are normal. Palpations: Abdomen is soft. Neurological: General: No focal deficit present. Mental Status: Mental status is at baseline. Medications: Current Facility-Administered Medications: acetaminophen (Tylenol) tablet 650 mg, 650 mg, Oral, q6h PRN OR acetaminophen (Tylenol) suppository 650 mg, 650 mg, Rectal, q6h PRN, Jericho Maradiaga MD aspirin EC tablet 81 mg, 81 mg, Oral, Daily, Jericho Maradiaga MD, 81 mg at 01/26/23 0829 atorvastatin (Lipitor) tablet 20 mg, 20 mg, Oral, Daily, Jericho Maradiaga MD, 20 mg at 01/26/23 0829 buPROPion XL (Wellbutrin XL) 24 hr tablet 150 mg, 150 mg, Oral, Daily, Jericho Maradiaga MD, 150 mg at 01/26/23 0830 citalopram (CeleXA) tablet 20 mg, 20 mg, Oral, Daily, Jericho Maradiaga MD, 20 mg at 01/26/23 0829 enoxaparin (Lovenox) syringe 40 mg, 40 mg, SubCUTAneous, Daily, Savanna Lutz DO haloperidol (Haldol) tablet 1 mg, 1 mg, Oral, TID, Jericho Maradiaga MD, 1 mg at 01/26/23 0829 Influenza Vac A&B SA Adj quadrivalent (Fluad) vaccine 0.5 mL, 0.5 mL, IntraMUSCular, Once, Jericho Maradiaga MD levothyroxine (Synthroid, Levoxyl) tablet 50 mcg, 50 mcg, Oral, qAM AC, Jericho Maradiaga MD, 50 mcg at 01/26/23 0616 LORazepam (Ativan) tablet 1 mg, 1 mg, Oral, BID- 8&2, Jericho Maradiaga MD, 1 mg at 01/26/23 0829 melatonin tablet 5 mg, 5 mg, Oral, Nightly PRN, Jericho Maradiaga MD naloxone (Narcan) injection 0.4 mg, 0.4 mg, IntraVENous, PRN, Morris Domínguez MD, 0.4 mg at 01/26/23 0147 oxyCODONE (Roxicodone) immediate release tablet 5 mg, 5 mg, Oral, q6h PRN, Jericho Maradiaga MD, 5 mg at 01/25/23 1506 polyethylene glycol (PEG) 3350 (Miralax) packet 17 g, 17 g, Oral, Daily PRN, Jericho Maradiaga MD pregabalin (Lyrica) capsule 100 mg, 100 mg, Oral, TID, Jericho Maradiaga MD, 100 mg at 01/26/23 0829 Assessment Data: (CAT1) Reviewed 3 or more notes from different specialty or health system (each=1). (LOW: 2x CAT1 or independent historian MOD: 3x CAT1 or 1x CAT3 EXTENSIVE: 3x CAT1 and 1x CAT3) Acute, acute on chronic, unstable/uncontrolled chronic problems/diagnoses: Right displaced femoral neck fracture s/p Cemented hemiarthroplasty of right hip on 01/25/23 Leukocytosis likely reactive Stable chronic problems affecting care, new non-acute diagnoses: Hypothyroidism Prior CVA Vascular dementia Anxiety/Depression Plan As a result of the above findings & factors, the following mgmt was pursued: - EKG reviewed by myself and NSR, no acute ischemic changes,negative troponin - decrease scheduled Ativan - am labs, replace lytes prn - PT/OT/CM/SW - delirium precautions: increase activity - DVT prophylaxis: enoxaparin and encourage ambulation Complexity: Acute illness or injury posing a threat to life or body function (HIGH). Risk: Admission to hospital-level care was considered or occurred (HIGH). Advance Directive: Full Code Anticipated Discharge - Date - 01/26/23? - Location - Skilled Facility - Pending the following - insurance auth/precert, otherwise patient is medically stable for discharge to SNF today Total time spent (which include face to face and non face to face encounters) : 54 minutes Extended Emergency Contact Information Primary Emergency Contact: Missy Whitfield Mobile Relation: Sibling Secondary Emergency Contact: Yoel Joseph Relation: Other Savanna Lutz DO [facility] Nutrition rescreen completed. Chart reviewed. Patient to be monitored and followed by the diet dispensary technician. CONNOR Canales Images from the original note were not included. PHYSICAL THERAPY [facility] Initial Evaluation Name/MRN: Claribel Stoll ([id number]) Evaluation Date: 01/26/2023 Date of : 1955 Admission Date: 01/24/2023 12:48 AM Age: 67 y.o. Room/Bed: [facility]6/[facility] A Discharge Recommendation: SNF Equipment Needed: TBD at next level of care Assessment IMPRESSION: Patient presents with weakness, pain, and impaired balance limiting mobility following recent fall with subsequent R hip hemiarthroplasty completed on 01/25/23. Patient is requiring mod assist for bed mobility and transfers. She is unable to ambulate at this time. Recommend SNF at discharge. Diagnosis: R hip fx, 01/24/23 R hip hemiarthroplasty Prognosis: fair Performance Deficits /Impairments: Increased Pain, Decreased Functional Mobility, Decreased ROM, Decreased Strength, and Decreased Balance Decision Making: Medium Complexity Subjective Patient in bed. She inconsistently responds to questions and instruction. Pain: Patient reports pain in different locations at various times during PT evaluation. Patient reports "head doesn't feel right" when sitting edge of bed but she could not specify if this was pain or another symptom. She also reports RLE pain with mobility and R upper chest pain after transferring to chair. RN in room and notified at end of PT session. Past Medical History: Past Medical History: Diagnosis Date Anxiety Depression Fractures 03/05/2018 left proximal humerus Past Surgical History: Past Surgical History: Procedure Laterality Date OTHER SURGICAL HISTORY LLE surgery Admission Diagnosis: Patient Active Problem List Diagnosis Date Noted Closed fracture of right hip, initial encounter ([facility]) 01/24/2023 Left arm pain 03/06/2018 Closed fracture of left proximal humerus 03/06/2018 Medical Precautions: No active isolations Proper PPE donned/doffed in accordance with facility standards. Fall Risk: Durand Fall Risk Score: 100 (High Risk) Precautions/Restrictions: Right LE Weight Bearing: Weight Bearing As Tolerated Hip Precautions: No Hip Flexion > 90 Degrees, No Adduction, No Hip IR, and Posterior Hip Precautions Lines/Drains/Airways: PIV Family/Caregiver Present: none Overall Cognitive Status: Exceptions - Arousal/alertness: appropriate responses to stimuli - Following commands: inconsistently follows commands - Safety judgement: decreased awareness of need for safety - Problem solving: assistance required to generate solutions, assistance required to implement solutions, assistance required to identify errors made, assistance required to correct errors made, and decreased awareness of errors - Insights: decreased awareness of deficits - Initiation: requires cues for all - Sequencing: requires cues for some Overall Orientation Status: Unable to Assess; Patient does not answer orientation questions. Patient will respond to her name but will not state her name or date when questioned. Per RN, she responded earlier and was able to state date. Vision: not assessed this session Hearing: normal Social/Functional History Patient admitted from [facility] . Assistive Equipment: Unknown Prior Level of Function ADL Assistance: Unknown Ambulation Assistance: Per patient she uses a walker with assist. Transfer Assistance: Unknown Objective Lower Extremity Assessment AROM: Unable to assess d/t patient cognition. PROM: Unable to assess d/t patient cognition. Strength: Unable to assess due to patient cognition, not following commands. Bed Mobility: Supine to sit: Mod Assist, dependent for following hip precautions Scooting: Mod Assist Transfers Sit to stand: Mod Assist Stand to sit: Mod Assist Bed to chair: Mod Assist Ambulation Attempted. Patient was unable to take steps when standing. Exercises Exercises Comments: Attempted ther ex. Patient unable to follow instructions (verbal, tactile, demonstrative) for completing ther ex. Outcome Measures AM-PAC How much HELP from another person do you currently need Turning from your back to your side while in a flat bed without using bedrails?: A Little Moving from lying on your back to sitting on the side of a flat bed without using bedrails?: A Lot Moving to and from a bed to a chair (including a wheelchair)?: A Lot Standing up from a chair using your arms (wheelchair or bedside chair)?: A Lot Walking in a hospital room?: Total Stair climbing assessed?: No AM-PAC Inpatient Mobility Raw Score (No Stairs) : 10 JH-HLM -M Score: Transferred to chair/commode Plan Pt would benefit from skilled acute PT services to address Strengthening, ROM, Balance Training, Functional Mobility Training, Gait Training, and Safety Education and Training. Frequency: 5x/week for 2 weeks Barriers: Pain, New weightbearing/ROM restrictions, and Cognitive deficit Safety/Education Safety Safety Devices in place: call light within reach, left in chair, chair alarm in place, gait belt, patient at risk for falls, and nurse notified Restraints: No Education Education Given To: patient Education Provided: posterior hip precautions Education Method: Verbal and Demonstration Barriers to Learning: Cognition Education Outcome: Unable to Verbalize, Unable to Demonstrate, and Continued Education Needed Goals Patient Stated Goal: Patient unable to participate in goal setting at this time. Encounter Problems Encounter Problems (Active) Mobility Patient will ambulate 25 feet with CGA and rolling walker in order to improve safety and independence with mobility. Start: 01/26/23 Expected End: 02/09/23 Transfers Patient will perform bed mobility with CGA in order to improve independence and prepare for out of bed mobility. Start: 01/26/23 Expected End: 02/09/23 Patient will complete sit to stand transfer with CGA to wheeled walker in order to improve safety and prepare for out of bed mobility. Start: 01/26/23 Expected End: 02/09/23 Therapy Time Individual Co-treatment Time In 0835 Time Out 0856 Minutes 21 PPE worn in accordance with [facility] guidelines. Zora Mcpherson PT Patient's Physical Therapy Plan of Care supervision is transferred to a [facility] Therapy Services Physical Therapist. Goals and/or treatment plan was established in collaboration with patient/family/other representatives. [facility] PCU [address] [address] Dept: [phone] Loc: [phone] Orthopedic Progress Note Name: Claribel Stoll Date:01/26/2023 Attending:Savanna Lutz, DO Subjective Resting comfortably. Awakens easily and answered some questions. Does not participate in exam. Objective Vitals: Vitals: 01/25/23 1933 01/26/23 0104 01/26/23 0155 01/26/23 0458 BP: 123/65 111/58 (!) 96/49 87/53 Pulse: 75 72 68 78 Resp: 16 16 16 16 Temp: 36.6 C (97.8 F) 36.3 C (97.3 F) 36.5 C (97.7 F) 37.2 C (98.9 F) TempSrc: Temporal Temporal Temporal Temporal SpO2: 92% 92% 98% 92% Physical Exam: General: NAD RLE Dressing/Skin: Clean/Dry/Intact Patient reports sensation intact to Saphenous/Superficial Peroneal/Deep Peroneal/Tibial/Sural distributions Motor: +Dorsiflexion/Plantarflexion/Great toe extension, patient having difficult time following exam. Motor function elicited by tickling the foot. Pulses: Palpable DP LABS: Recent Labs 01/24/23 0217 01/25/23 0038 01/26/23 0105 WBC 14.6* 10.9* 14.7* HGB 11.3* 10.4* 10.2* HCT 35.6 32.9* 32.0* PLT 292 250 259 Recent Labs 01/24/23 0217 01/25/23 0038 01/26/23 0105 NA 137 135 137 K 4.3 3.8 3.9 CL 105 105 104 CO2 25 21* 24 BUN 19* 14 12 CREATININE 0.73 0.58 0.53 CALCIUM 8.9 8.4 8.7 Recent Labs 01/24/23 0601 01/25/23 0038 INR 1.0 1.0 No results for input(s): "SEDRATE", "CRP" in the last 72 hours. No results for input(s): "HCG" in the last 72 hours. Assessment Claribel is a 67 y.o.female s/p R hip hemiarthroplasty on 01/25 Plan -Operative plans: No further plans for surgery this admission -Weight bearing: RLE: WBAT LLE: WBAT RUE: WBAT LUE: WBAT -Range of motion parameters: Posterior hip precautions, otherwise ROM as tolerated -Immobilization: No immobilization needed -Consults: Acute pain service consult for pain control recommendations -Antibiotics: 24 hours of post op antibiotics. -Dressings: Keep bandage clean dry and intact for 7-10 days post operatively, then ok to leave open to air if incision is without drainage. -Other: None -Diet: no restrictions from ortho standpoint -Labs: Check hemoglobin tomorrow -PT/OT -PT recommended outpatient/post discharge?: Yes, for basic ADLs -Medical management, dvt ppx and pain control per primary -DVT ppx recommended?: Yes, 30 days of post operative DVT ppx recommended, will defer to primary team. Ok to restart -Follow-up with Dr Oliver in 2 weeks -Ortho to follow. Annie Mullen MD Orthopaedic Surgery, PGY-5 [phone] Images from the original note were not included. Hospitalist Progress Note Subjective: Admit Date: 01/24/2023 PCP: Morris Carr Room#: H-6106/H-6106 A Interval History: pt just back from surgery, feels drowsy, denies any complaints. Adult diet Regular @[id number]@ 24HR INTAKE/OUTPUT: Intake/Output Summary (Last 24 hours) at 01/25/2023 1244 Last data filed at 01/25/2023 0950 Gross per 24 hour Intake 1400 ml Output 1450 ml Net -50 ml Past Medical History: Past Medical History: Diagnosis Date Anxiety Depression Fractures 03/05/2018 left proximal humerus LABS: CBC: Recent Labs 01/24/2321601/25/23 003 WBC 14.6* 10.9* RBC 4.18 3.81 HGB 11.3* 10.4* HCT 35.6 32.9* MCV 85.2 86.3 RDW 14.7* 15.0* PLT 292 250 BMP: Recent Labs 01/24/2321601/25/23 003 NA 137 135 K 4.3 3.8 CL 105 105 CO2 25 21* BUN 19* 14 CREATININE 0.73 0.58 GLUCOSE 116* 97 CALCIUM 8.9 8.4 ANIONGAP 8 9 LIVER PROFILE:No results for input(s): "AST", "ALT", "BILITOT", "ALKPHOS", "PROT" in the last 72 hours. No lab exists for component: LABALBU PT/INR: Recent Labs 01/24/23 0601 01/25/23 0038 PROTIME 10.6 10.7 INR 1.0 1.0 CARDIAC ENZYMES: Recent Labs 01/24/23 0217 TROPONINI <0.012 Procalcitonin: No results found for: "PROCAL" COVID-19 PCR: No results for input(s): "COVID19" in the last 72 hours. Objective: Vitals: BP 132/70 Pulse 97 Temp 36.2 C (97.2 F) (Temporal) Resp 18 SpO2 97% Pulse Ox: SpO2 Av.8 % Min: 92 % Max: 99 % Supplemental O2: O2 Flow Rate (L/min): 3 L/min Patient is alert, awake, oriented x 3 No pallor, Icterus No JVD Heart S1 S2 No murmurs Lungs clear to auscultation Abdomen soft non distended no organomegaly No pedal edema, no cyanosis, R hip dressing intact Medications: aspirin, 81 mg, Oral, Daily atorvastatin, 20 mg, Oral, Daily buPROPion XL, 150 mg, Oral, Daily ceFAZolin, 2,000 mg, IntraVENous, q8h citalopram, 20 mg, Oral, Daily haloperidol, 1 mg, Oral, TID influenza, 0.5 mL, IntraMUSCular, Once levothyroxine, 50 mcg, Oral, qAM AC LORazepam, 1 mg, Oral, BID- 8&2 pregabalin, 100 mg, Oral, TID Assessment # s/p mechanical fall # Rt proximal femoral neck fracture # Leukocytosis # Hypothyroidism # CVA # Anxiety/Depression Plan - s/p surgical fixation, appreciate ortho recs, prn pain meds -am labs, replace lytes prn -increase activity -DVT prophylaxis: per ortho [] Lovenox [] Heparin [] SCDs [x] Encourage ambulation [] Already on Anticoagulation Advance Directive: Full Code Anticipated Discharge - Date - 01/26 - Location - home vs snf - Pending the following - clinical improvement Toxic drug monitoring/narrow therapeutic index drug monitoring : # Drug name : # Route administered : # Method of monitoring : Sammie Singh MD 01/25/2023 Division of Hospitalist Medicine Inpatient Medical Services/[facility] PAGER: [phone] Orthopedic surgery postoperative plan of care: -Operative plans: No further plans for surgery this admission -Weight bearing: RLE: WBAT, posterior hip precautions LLE: WBAT RUE: WBAT LUE: WBAT -Range of motion parameters: Posterior hip precautions, otherwise ROM as tolerated -Immobilization: No immobilization needed -Consults: Acute pain service consult for pain control recommendations -Antibiotics: 24 hours of post op antibiotics. -Dressings: Keep bandage clean dry and intact for 7-10 days post operatively, then ok to leave open to air if incision is without drainage. -Other: None -Diet: no restrictions from ortho standpoint -Labs: CBC & BMP x 2 days post op -PT/OT -PT recommended outpatient/post discharge?: Yes, for basic ADLs -Medical management, dvt ppx and pain control per primary -DVT ppx recommended?: Yes, 30 days of post operative DVT ppx recommended. Will defer to primary team -Follow-up with Dr Oliver in 2 weeks -Ortho to follow. Jericho Maradiaga MD Orthopaedic Surgery PGY-3 9:47 AM 01/25/2023 [facility] PC[facility] [address] [facility] [address] Dept: [phone] Loc: [phone] Orthopedic Progress Note Name: Claribel Stoll Date:01/25/2023 Attending:Sammie Singh MD Subjective Pleasantly confused this morning. Denies pain besides R hip. Objective Vitals: Vitals: 01/24/23 0402 01/24/23 0605 01/24/23 1115 01/24/23 2116 BP: 106/58 101/63 121/59 101/55 BP Location: Pulse: 73 71 74 77 Resp: 14 18 Temp: 36.4 C (97.5 F) TempSrc: Temporal SpO2: 99% 98% 98% 94% Physical Exam: General: NAD RLE Skin over hip: clean/dry/intact SILT: intact Saphenous/Superficial Peroneal/Deep Peroneal/Tibial/Sural distributions Motor: +Dorsiflexion/Plantarflexion/Great toe extension Pulses: Palpable DP LABS: Recent Labs 01/24/2321601/25/2337 WBC 14.6* 10.9* HGB 11.3* 10.4* HCT 35.6 32.9* PLT 292 250 Recent Labs 01/24/2321601/25/2337 NA 137 135 K 4.3 3.8 CL 105 105 CO2 25 21* BUN 19* 14 CREATININE 0.73 0.58 CALCIUM 8.9 8.4 Recent Labs 01/24/23 0601 01/25/2337 INR 1.0 1.0 No results for input(s): "SEDRATE", "CRP" in the last 72 hours. No results for input(s): "HCG" in the last 72 hours. Assessment Claribel is a 67 y.o.female with R femoral neck fx Plan -OR today for R hip hemiarthroplasty -Consent in chart -Medically cleared for surgery -Pre-operative labs/workup complete -NPO -Holding anticoagulation -Post op plan to follow surgery Ever Hollingsworth M.D. Orthopaedic Surgery Discussed operative timing with patient and patient's siblings via phone. Due to the volume of emergent surgical cases today patient would not be able to go to surgery until very late tonight and would have to remain n.p.o. until that time. The decision was made to cancel surgery for tonight with the plans of going to the OR tomorrow morning. Patient and family were agreeable to this plan. Patient can have a diet and will become n.p.o. again at midnight tonight in anticipation of surgery. Rogerio Snider MD PGY2 Orthopaedic Surgery 01/24/2023 2:42 PM documented in this encounter [facility] 01-26-2023 Plan of care note Problem: Knowledge Deficit Goal: Patient/family/caregiver demonstrates understanding of disease process, treatment plan, medications, and discharge instructions Outcome: Progressing Flowsheets (Taken 01/26/2023 1010) Patient/family/caregiver demonstrates understanding of disease process, treatment plan, medications, and discharge instructions: Complete learning assessment and assess knowledge base Provide teaching via preferred learning methods Problem: Potential for Compromised Skin Integrity Goal: Skin Integrity is Maintained or Improved Outcome: Progressing Flowsheets (Taken 01/26/2023 1010) Skin integrity is maintained or improved: Assess and monitor skin integrity Relieve pressure to bony prominences [facility] 01-26-2023 Note [facility] PCU [address] [address] Dept: [phone] Loc: [phone] Orthopedic Progress Note Name: Claribel Stoll Date:01/26/2023 Attending:Savanna Lutz, DO Subjective Resting comfortably. Awakens easily and answered some questions. Does not participate in exam. Objective Vitals: Vitals: 01/25/23 1933 01/26/23 0104 01/26/23 0155 01/26/23 0458 BP: 123/65 111/58 (!) 96/49 87/53 Pulse: 75 72 68 78 Resp: 16 16 16 16 Temp: 36.6 ?C (97.8 ?F) 36.3 ?C (97.3 ?F) 36.5 ?C (97.7 ?F) 37.2 ?C (98.9 ?F) TempSrc: Temporal Temporal Temporal Temporal SpO2: 92% 92% 98% 92% Physical Exam: General: NAD RLE Dressing/Skin: Clean/Dry/Intact Patient reports sensation intact to Saphenous/Superficial Peroneal/Deep Peroneal/Tibial/Sural distributions Motor: +Dorsiflexion/Plantarflexion/Great toe extension, patient having difficult time following exam. Motor function elicited by tickling the foot. Pulses: Palpable DP LABS: Recent Labs 01/24/23 0217 01/25/23 0038 01/26/23 0105 WBC 14.6* 10.9* 14.7* HGB 11.3* 10.4* 10.2* HCT 35.6 32.9* 32.0* PLT 292 250 259 Recent Labs 01/24/23 0217 01/25/23 0038 01/26/23 0105 NA 137 135 137 K 4.3 3.8 3.9 CL 105 105 104 CO2 25 21* 24 BUN 19* 14 12 CREATININE 0.73 0.58 0.53 CALCIUM 8.9 8.4 8.7 Recent Labs 01/24/23 0601 01/25/2337 INR 1.0 1.0 No results for input(s): "SEDRATE", "CRP" in the last 72 hours. No results for input(s): "HCG" in the last 72 hours. Assessment Claribel is a 67 y.o.female s/p R hip hemiarthroplasty on 01/25 Plan -Operative plans: No further plans for surgery this admission -Weight bearing: RLE: WBAT LLE: WBAT RUE: WBAT LUE: WBAT -Range of motion parameters: Posterior hip precautions, otherwise ROM as tolerated -Immobilization: No immobilization needed -Consults: Acute pain service consult for pain control recommendations -Antibiotics: 24 hours of post op antibiotics. -Dressings: Keep bandage clean dry and intact for 7-10 days post operatively, then ok to leave open to air if incision is without drainage. -Other: None -Diet: no restrictions from ortho standpoint -Labs: Check hemoglobin tomorrow -PT/OT -PT recommended outpatient/post discharge?: Yes, for basic ADLs -Medical management, dvt ppx and pain control per primary -DVT ppx recommended?: Yes, 30 days of post operative DVT ppx recommended, will defer to primary team. Ok to restart -Follow-up with Dr Oliver in 2 weeks -Ortho to follow. Annie Mullen MD Orthopaedic Surgery, PGY-5 [phone] [facility] 01-26-2023 Nurse Note Pt alertness declined over shift, Dr Domínguez up to assess the patient. CONTROL ANALYST notified per Dr Domínguez. CONTROL ANALYST up to assess the patient. Narcan given per order with no change. Pt taken down to CT. [facility] 01-26-2023 Nurse Note Pt alertness declined over shift, Dr Domínguez up to assess the patient. CONTROL ANALYST notified per Dr Domínguez. CONTROL ANALYST up to assess the patient. Narcan given per order with no change. Pt taken down to CT. documented in this encounter [facility] 01-26-2023 Note Formatting of this n ote might be different from the original. Paged to Pt Rm for concern of mental status change control coordinator the course of the evening. Pt POD #0 for hemiarthroplasty of hip hip. Has received Oxycodone 5mg, scheduled Haldol and Lyrica approximately 5hrs ago. On arrival to . Pt sleeping, heavily, slow to rouse w/ tactile stimulation. Takes approx 10sec to response but does so appropriately w/ Yes/No answers. Minimal movement of arms, legs but does make attempt to move limbs, smile during my assessment. - Lats CT from 01/24 negative for acute process. Initial concern is for oversedation - Per RN Pt has been progressively less responsive since the beginning of her shift - no reported acute mental status change or specific neural focal deficit. To be through will request formal NIHSS assessment by Rapid Response, Administer IV Narcan to determine (Pt does have Haldol, Lyrica on board) and will order STAT CT Head for this mental status change [facility] Work Phone: 01-26-2023 Note Formatting of this n ote might be different from the original. Paged to Pt Rm for concern of mental status change control coordinator the course of the evening. Pt POD #0 for hemiarthroplasty of hip hip. Has received Oxycodone 5mg, scheduled Haldol and Lyrica approximately 5hrs ago. On arrival to . Pt sleeping, heavily, slow to rouse w/ tactile stimulation. Takes approx 10sec to response but does so appropriately w/ Yes/No answers. Minimal movement of arms, legs but does make attempt to move limbs, smile during my assessment. - Lats CT from 01/24 negative for acute process. Initial concern is for oversedation - Per RN Pt has been progressively less responsive since the beginning of her shift - no reported acute mental status change or specific neural focal deficit. To be through will request formal NIHSS assessment by Rapid Response, Administer IV Narcan to determine (Pt does have Haldol, Lyrica on board) and will order STAT CT Head for this mental status change [employer] Work Phone: 01-26-2023 Note Formatting of this n ote might be different from the original. Called to see patient for decreased mental status, confusion. Patient had a hemiarthroplasty of right hip on 01/25/2023. Patient Ativan at 1328, Oxycodone at 1506, Haldol at [address] 1938[address] Dr Domínguez was up to see patient, requested Rapid response come up to assess neuro status. Upon our arrival, patient awake in bed, responds to name. Patient has hx dementia. Unable to state age correctly, states she is at [facility] . She does not recall why she is here. She moves upper extremities upon command, no drift. Right leg is operative leg, follows commands with left leg. Sensation intact. Pupils equal and react briskly to light . No facial assymmetry, no gaze palsy, visual field intact with threat. Speech clear. She can answer some questions appropriately while conversing. Denies any pain at this time. No focal deficits noted. Mbs 145. VSS. In NAD. Dr Domínguez updated. Order received for Narcan. This was given , no improvement in mental status. Order received for CT scan [employer] [facility] 01-26-2023 Note Formatting of this n ote might be different from the original. Called to see patient for decreased mental status, confusion. Patient had a hemiarthroplasty of right hip on 01/25/2023. Patient Ativan at 1328, Oxycodone at 1506, Haldol at [address] Domínguez was up to see patient, requested Rapid response come up to assess neuro status. Upon our arrival, patient awake in bed, responds to name. Patient has hx dementia. Unable to state age correctly, states she is at [facility] . She does not recall why she is here. She moves upper extremities upon command, no drift. Right leg is operative leg, follows commands with left leg. Sensation intact. Pupils equal and react briskly to light . No facial assymmetry, no gaze palsy, visual field intact with threat. Speech clear. She can answer some questions appropriately while conversing. Denies any pain at this time. No focal deficits noted. Mbs 145. VSS. In NAD. Dr Domínguez updated. Order received for Narcan. This was given , no improvement in mental status. Order received for CT scan [facility] 01-25-2023 Note Hospitalist Progress Note Subjective: Admit Date: 01/24/2023 PCP: Morris Carr Room#: H-6106/H-6106 A Interval History: pt just back from surgery, feels drowsy, denies any complaints. Adult diet Regular @[id number]@ 24HR INTAKE/OUTPUT: Intake/Output Summary (Last 24 hours) at 01/25/2023 1244 Last data filed at 01/25/2023 0950 Gross per 24 hour Intake 1400 ml Output 1450 ml Net -50 ml Past Medical History: Past Medical History: Diagnosis Date Anxiety Depression Fractures 03/05/2018 left proximal humerus LABS: CBC: Recent Labs 01/24/2321601/25/2337 WBC 14.6* 10.9* RBC 4.18 3.81 HGB 11.3* 10.4* HCT 35.6 32.9* MCV 85.2 86.3 RDW 14.7* 15.0* PLT 292 250 BMP: Recent Labs 12/02/23 0217 12/03/23 0038 NA 137 135 K 4.3 3.8 CL 105 105 CO2 25 21* BUN 19* 14 CREATININE 0.73 0.58 GLUCOSE 116* 97 CALCIUM 8.9 8.4 ANIONGAP 8 9 LIVER PROFILE:No results for input(s): "AST", "ALT", "BILITOT", "ALKPHOS", "PROT" in the last 72 hours. No lab exists for component: LABALBU PT/INR: Recent Labs 01/24/23 0601 01/25/23 0038 PROTIME 10.6 10.7 INR 1.0 1.0 CARDIAC ENZYMES: Recent Labs 01/24/23 0217 TROPONINI <0.012 Procalcitonin: No results found for: "PROCAL" COVID-19 PCR: No results for input(s): "COVID19" in the last 72 hours. Objective: Vitals: BP 132/70 Pulse 97 Temp 36.2 ?C (97.2 ?F) (Temporal) Resp 18 SpO2 97% Pulse Ox: SpO2 Av.8 % Min: 92 % Max: 99 % Supplemental O2: O2 Flow Rate (L/min): 3 L/min Patient is alert, awake, oriented x 3 No pallor, Icterus No JVD Heart S1 S2 No murmurs Lungs clear to auscultation Abdomen soft non distended no organomegaly No pedal edema, no cyanosis, R hip dressing intact Medications: aspirin, 81 mg, Oral, Daily atorvastatin, 20 mg, Oral, Daily buPROPion XL, 150 mg, Oral, Daily ceFAZolin, 2,000 mg, IntraVENous, q8h citalopram, 20 mg, Oral, Daily haloperidol, 1 mg, Oral, TID influenza, 0.5 mL, IntraMUSCular, Once levothyroxine, 50 mcg, Oral, qAM AC LORazepam, 1 mg, Oral, BID- 8&2 pregabalin, 100 mg, Oral, TID Assessment # s/p mechanical fall # Rt proximal femoral neck fracture # Leukocytosis # Hypothyroidism # CVA # Anxiety/Depression Plan - s/p surgical fixation, appreciate ortho recs, prn pain meds -am labs, replace lytes prn -increase activity -DVT prophylaxis: per ortho [] Lovenox [] Heparin [] SCDs [x] Encourage ambulation [] Already on Anticoagulation Advance Directive: Full Code Anticipated Discharge - Date - 01/26 - Location - home vs snf - Pending the following - clinical improvement Toxic drug monitoring/narrow therapeutic index drug monitoring : # Drug name : # Route administered : # Method of monitoring : Sammie Singh MD 01/25/2023 Division of Hospitalist Medicine Inpatient Medical Services/[facility] PAGER: [phone] [facility] 01-25-2023 Note Patient: Claribel jay Procedure Summary Date: 01/25/23 Room / Location: [facility] OR [address] [place] [address] Operating Room Anesthesia Start: 734 Anesthesia Stop: 1007 Procedure: HEMIARTHROPLASTY HIP PARTIAL POSTERIOR APPROACH (Right: Hip) Diagnosis: Closed fracture of right hip, initial encounter (HCC) (Closed fracture of right hip, initial encounter ([facility]) [S72.001A]) Surgeons: Randee Oliver MD Responsible Provider: Rogerio Lloyd MD Anesthesia Type: general ASA Status: 3 Anesthesia Type: general Vitals Value Taken Time BP 126/67 01/25/23 1000 Temp 36.5 ?C (97.7 ?F) 01/25/23 0940 Pulse 97 01/25/23 1006 Resp 17 01/25/23 1006 SpO2 99 % 01/25/23 1006 Vitals shown include unfiled device data. Anesthesia Post Evaluation Patient location during evaluation: PACU Patient participation: complete - patient participated Level of consciousness: awake and alert Pain management: satisfactory to patient Airway patency: patent Dental Injury: no Cardiovascular status: acceptable, blood pressure returned to baseline and hemodynamically stable Respiratory status: acceptable and spontaneous ventilation Hydration status: euvolemic Nausea/Vomiting: controlled No notable events documented. Patient can be discharged once all PACU criteria has been met. [facility] 01-25-2023 Note Patient: Claribel jay Procedure Summary Date: 01/25/23 Room / Location: [facility] OR [address] [place] [address] Operating Room Anesthesia Start: 734 Anesthesia Stop: Procedure: HEMIARTHROPLASTY HIP PARTIAL POSTERIOR APPROACH (Right: Hip) Diagnosis: Closed fracture of right hip, initial encounter (HCC) (Closed fracture of right hip, initial encounter (HCC) [S72.001A]) Surgeons: aRndee Oliver MD Responsible Provider: Rogerio Lloyd MD Anesthesia Type: general ASA Status: 3 Anesthesia Type: general Vitals Value Taken Time BP 126/67 01/25/23 1000 Temp 36.5 ?C (97.7 ?F) 01/25/23 0940 Pulse 97 01/25/23 1006 Resp 17 01/25/23 1006 SpO2 99 % 01/25/23 1006 Vitals shown include unfiled device data. Anesthesia Post Evaluation Patient location during evaluation: PACU Patient participation: complete - patient participated Level of consciousness: awake and alert Pain management: satisfactory to patient Multimodal analgesia pain management approach Airway patency: patent Two or more strategies used to mitigate risk of obstructive sleep apnea Cardiovascular status: acceptable and hemodynamically stable Respiratory status: acceptable Hydration status: acceptable No notable events documented. Anesthesia Post Evaluation I completed my handoff to the receiving clinician during which we: 1. Identified the patient 2. Identified the responsible provider 3. Reviewed the pertinent medical history 4. Discussed the surgical course 5. Reviewed intra-op anesthesia management and issues during anesthesia 6. Set expectations for post-procedure period 7. Allowed opportunity for questions and acknowledgement of understanding. [facility] 01-25-2023 Note Orthopedic surgery p ostoperative plan of care: -Operative plans: No further plans for surgery this admission -Weight bearing: RLE: WBAT, posterior hip precautions LLE: WBAT RUE: WBAT LUE: WBAT -Range of motion parameters: Posterior hip precautions, otherwise ROM as tolerated -Immobilization: No immobilization needed -Consults: Acute pain service consult for pain control recommendations -Antibiotics: 24 hours of post op antibiotics. -Dressings: Keep bandage clean dry and intact for 7-10 days post operatively, then ok to leave open to air if incision is without drainage. -Other: None -Diet: no restrictions from ortho standpoint -Labs: CBC & BMP x 2 days post op -PT/OT -PT recommended outpatient/post discharge?: Yes, for basic ADLs -Medical management, dvt ppx and pain control per primary -DVT ppx recommended?: Yes, 30 days of post operative DVT ppx recommended. Will defer to primary team -Follow-up with Dr Oliver in 2 weeks -Ortho to follow. Jericho Maradiaga MD Orthopaedic Surgery PGY-3 9:47 AM 01/25/2023 [facility] 01-25-2023 Note Peripheral Block Time Out: 01/25/2023 9:25 AM Start time: 01/25/2023 9:25 AM End time: 01/25/2023 9:29 AM Reason for block: at surgeon's request and post-op pain management Staffing Performed: anesthesiologist Anesthesiologist: Rogerio Lloyd MD Preanesthetic Checklist Completed: patient identified, IV checked, site marked, risks and benefits discussed, surgical consent and timeout performed Region: Truncal Primary: Quadratus Lumborum Peripheral Block Prep: ChloraPrep Patient monitoring: heart rate, cardiac technologist, continuous pulse ox and continuous capnometry O2: ETT/LMA Laterality: right Injection technique: single-shot Guidance: ultrasound guided -image retained in chart, tip of the needle identified by ultraound during injection. Needle Needle: 21G X 110 mm Additional Notes 01/25/2023 9:25 AM Assessment Injection assessment: negative aspiration for heme, no paresthesia on injection, incremental injection, local visualized surrounding nerve on ultrasound and transient paresthesias Heart rate change: no Slow fractionated injection: yes Required Documentation: Relevant anatomy identified (Nerves, Vessels, Muscles), Negative for blood on aspiration, Local anesthetic injected incrementally with intermittent aspiration every 5 mL, Normal resistance with injection, Local anesthetic spread visualized around nerves or plane., No EKG changes noted and No symptoms of toxicityMedications mjcACMKNvsrmh-oxmrryjebcv-nridlfxk ine (TAP) syringe - Injection 60 mL - 01/25/2023 9:25:00 AM [facility] 01-25-2023 Note Formatting of this n ote might be different from the original. Pt to floor with transport, nad, resp non labored, alert and denies any pain [facility] 01-25-2023 Note Formatting of this n ote might be different from the original. Pt to floor with transport, nad, resp non labored, alert and denies any pain [facility] 01-25-2023 Note Formatting of this n ote might be different from the original. Report called to floor, transport initiated [facility] 01-25-2023 Note Formatting of this n ote might be different from the original. Report called to floor, transport initiated [facility] 01-25-2023 Note Airway Date/Time: 01/25/2023 7:45 AM Urgency: scheduled Airway not difficult General Information and Staff Patient location during procedure: Procedural Resident/DRILL DOCTOR: TILA Torrez CRNA Performed: DRILL DOCTOR Performed by: TILA Torrez CRNA Authorized by: TILA Torrez CRNA Indications and Patient Condition Indications for airway management: anesthesia Preoxygenated: yes Patient position: sniffing MILS maintained throughout Mask difficulty assessment: 1 - vent by mask Final Airway Details Final airway type: endotracheal airway Successful airway: ETT Cuffed: yes Successful intubation technique: direct laryngoscopy Blade: Mckeon Blade size: #3 Cormack-Lehane Classification: grade I - full view of glottis Placement verified by: chest auscultation Measured from: teeth Number of attempts at approach: 1 Ventilation between attempts: 2 hand mask Number of other approaches attempted: 1 [facility] 01-25-2023 Hospital Discharge instructions Jericho Maradiaga MD - 01/25/2023 9:45 AM EST Images from the original note were not included. General Orthopedic Discharge Instructions The following instructions have been prepared to help you when you leave the hospital. These guidelines are for the post surgery period. -Activity & Weightbearing: -Non weight bearing to your right leg. Meaning no walking on the leg, will have to use crutches/walker/scooter/wheelchair to assist. -Posterior hip precautions x 6 weeks after surgery: Be careful with position of your hip when transferring to wheelchair and when in wheelchair - do not put the hip in a position of flexion/adduction (meaning having the leg very close to the other leg) and internal rotation (meaning turning the leg so the toes face inward) -Ease into normal activity as tolerated. Avoid heavy lifting/pulling/otherwise strenuous activity. -Wound Care and Hygiene: Keep bandaging clean and dry. Ok to change dressings as needed for saturation. Ok to remove bandaging/dressings 7 days after surgery. At this point, if incision is clean and without drainage it is ok to go without any bandaging. If it is draining, reapply new bandaging. -Immobilization Not applicable -Pain Control: -Pain control: Alternate Tylenol (acetaminophen) and Ibuprofen every 4 hours. For example, take Tylenol at 7am and Ibuprofen at 11am. Then take Tylenol at 3pm and Ibuprofen at 7pm. Take narcotic medicine (oxycodone, hydrocodone, vicodin, norco, percocet, tramadol, etc.) for breakthrough pain only. Make sure to double check that narcotic pain medicine does not also contain acetaminophen as exceeding greater than 3000mg a day is unsafe. -Use ice as needed to help reduce pain and swelling. Do not put ice directly on the skin. Do not leave ice on for more than 30 minutes at a time. -Medications: -See medication instructions. Please be sure to read and understand the information provided by your pharmacy. Ask your Pharmacist if you have any questions. -Precautions: call your doctor or return to the emergency department IF: -You develop signs of infection including but not limited to: increasing pain, redness, swelling, purulent drainage, and/or a fever -Anesthesia Precautions: -Do Not operate any vehicle (automobile, bicycle, motorcycle) or power tools for 24 hours. Do Not drink alcoholic beverages for 24 hours. As precaution to prevent post-operative nausea and vomiting, start your diet with liquids, then progress to light foods. If tolerated, resume normal diet. -Follow up visit: -Follow-up in clinic with Dr. Oliver for a visit 2 weeks after the date of your surgery. The office contact information is provided in your paperwork. EDO Lutz DO - 01/26/2023 10:43 AM EST As tolerated EDO Feng RN - 01/26/2023 10:43 AM EST Continuity of Care Form Patient Name: Claribel Stoll : 1955 Admit date: 01/24/2023 Discharge date: 01/26/2023 Code Status Order: Full Code Advance Directives: N Admitting Physician: Kizzy Garsia MD PCP: Morris Carr Discharging Nurse: Yumi Feng RN Discharging Hospital Unit/Room#: H-6106/H-6106 A Discharging Unit Emergency Contact: Extended Emergency Contact Information Primary Emergency Contact: Missy Whitfield Mobile Relation: Sibling Secondary Emergency Contact: Yoel Joseph Relation: Other Past Surgical History: Past Surgical History: Procedure Laterality Date OTHER SURGICAL HISTORY LLE surgery Immunization History: There is no immunization history for the selected administration types on file for this patient. Active Problems: Medical Problems Problem List * (Principal) Closed fracture of right hip, initial encounter (HCC) Dementia, unspecified dementia severity, unspecified dementia type, unspecified whether behavioral, psychotic, or mood disturbance or anxiety (HCC) Left arm pain Closed fracture of left proximal humerus Isolation/Infection: No active isolations No active infections Nurse Assessment: Last Vital Signs: BP 105/59 Pulse 79 Temp 37 C (98.6 F) (Temporal) Resp 16 SpO2 93% Last documented pain score (0-10 scale): Last Weight: Wt Readings from Last 1 Encounters: No data found for Wt Mental Status: TAYLOR Patient Mental Status: disoriented IV Access: TAYLOR IV Access: None Nursing Mobility/ADLs: Walking Total assistance Transfer Total assistance Bathing Minimal assistance Dressing Minimal assistance Toileting Total assistance Feeding Independent Circle Edger Minimal assistance Med Delivery yes Wound Care Documentation and Therapy: Wound/Incision 01/25/23 Incision Leg Anterior;Proximal;Right;Upper (Active) Site Assessment Unable to assess 01/26/23 0825 Odor None 01/26/23 0825 Drainage Amount None 01/26/23 0825 Primary Dressing Silver dressing 01/26/23 0825 Dressing Status Clean, dry & intact 01/26/23 0825 Number of days: 1 Elimination: Continence: Bowel: no Bladder: no Urinary Catheter: None Colostomy/Ileostomy/Ileal Conduit: None Date of Last BM: 01/26/2023 Intake/Output Summary (Last 24 hours) at 01/26/2023 1043 Last data filed at 01/26/2023 0600 Gross per 24 hour Intake -- Output 1175 ml Net -1175 ml I/O last 3 completed shifts: In: 1300 [I.V.:1300] Out: 2225 [Urine:1925; Blood:300] Safety Concerns: history of falls (last 30 days) and at risk for falls Impairments/Disabilities: none Nutrition Therapy: Current Nutrition Therapy: Oral diet: general Routes of Feeding: oral Liquids: no restrictions Daily Fluid Restriction: no Last Modified Barium Swallow with Video (Video Swallowing Test): not done Treatments at the Time of Hospital Discharge: Respiratory Treatments: Oxygen Therapy: is not on home oxygen therapy. Ventilator: {TAYOLR Ventilator:59813} Rehab Therapies: {GEN THERAPY DISCIPLINE SCAL:[id number]} Weight Bearing Status/Restrictions: weight bearing as tolerated Other Medical Equipment (for information only, NOT a DME order): wheeled walker Other Treatments: Patient's personal belongings (please select all that are sent with patient): clothing RN SIGNATURE: MANAGEMENT/SOCIAL WORK SECTION Inpatient Status Date: 01/24/2023 Readmission Risk Assessment Score: @READMISSIONRISKDETAILS@ Discharging to Facility/ Agency Name: [facility] Address: [address] [place] [address] Fax: Dialysis Facility (if applicable) Name: Address: Dialysis Schedule: Phone: Fax: Senior Customer Service Representative/Community Affairs Manager signature: {E-signature:17244} PHYSICIAN SECTION Prognosis: excellent Condition at Discharge: stable Rehab Potential (if transferring to Rehab): excellent Recommended Labs or Other Treatments After Discharge: CBC and BMP in 1 week Physician Certification: I certify the above information and transfer of Claribel Stoll is necessary for the continuing treatment of the diagnosis listed and that she requires [facility] facility for greater than 30 days. Update Admission H&P: No change in H&P PHYSICIAN SIGNATURE: documented in this encounter [facility] 01-25-2023 Note [facility] PCU [address] [facility] [address] Dept: [phone] Loc: [phone] Orthopedic Progress Note Name: Claribel Stoll Date:01/25/2023 Attending:Sammie Singh MD Subjective Pleasantly confused this morning. Denies pain besides R hip. Objective Vitals: Vitals: 01/24/23 0402 01/24/23 0605 01/24/23 1115 01/24/23 2116 BP: 106/58 101/63 121/59 101/55 BP Location: Pulse: 73 71 74 77 Resp: 14 18 Temp: 36.4 ?C (97.5 ?F) TempSrc: Temporal SpO2: 99% 98% 98% 94% Physical Exam: General: NAD RLE Skin over hip: clean/dry/intact SILT: intact Saphenous/Superficial Peroneal/Deep Peroneal/Tibial/Sural distributions Motor: +Dorsiflexion/Plantarflexion/Great toe extension Pulses: Palpable DP LABS: Recent Labs 01/24/23 0217 01/25/23 0038 WBC 14.6* 10.9* HGB 11.3* 10.4* HCT 35.6 32.9* PLT 292 250 Recent Labs 01/24/237 01/25/23 0038 NA 137 135 K 4.3 3.8 CL 105 105 CO2 25 21* BUN 19* 14 CREATININE 0.73 0.58 CALCIUM 8.9 8.4 Recent Labs 01/24/23 0601 01/25/23 0038 INR 1.0 1.0 No results for input(s): "SEDRATE", "CRP" in the last 72 hours. No results for input(s): "HCG" in the last 72 hours. Assessment Claribel is a 67 y.o.female with R femoral neck fx Plan -OR today for R hip hemiarthroplasty -Consent in chart -Medically cleared for surgery -Pre-operative labs/workup complete -NPO -Holding anticoagulation -Post op plan to follow surgery Ever Hollingsworth M.D. Orthopaedic Surgery [facility] 01-25-2023 Note Patient: Claribel jay Procedure Information Date/Time: 12/03/23 0730 Procedure: HEMIARTHROPLASTY HIP PARTIAL POSTERIOR APPROACH (Right: Hip) Location: [facility] OR [address] [place] [address] Operating Room Surgeons: Randee Oliver MD Relevant Problems No relevant active problems Past Medical History: Past Medical History: No date: Anxiety No date: Depression 03/05/2018: Fractures Comment: left proximal humerus Past Surgical History: Past Surgical History: No date: OTHER SURGICAL HISTORY Comment: LLE surgery Social History: TOBACCO: reports that she has never smoked. She has never used smokeless tobacco. ETOH: reports current alcohol use. Social History Substance and Sexual Activity Drug Use No Family History: Family History Problem Relation Name Age of Onset ? Diabetes type II Sister Screening: unknown Clinical information reviewed: Allergies Physical Exam Airway Mallampati: III TM distance: >3 FB Neck ROM: full Mouth Open: normalendotracheal tube not in place Cardiovascular Dental dentition normal Pulmonary Abdominal Anesthesia Plan patient is NPO appropriate Any family history or previous problems with anesthesia no ASA 3 general Any family history or previous problems with anesthesia no The patient is not a current smoker. Anesthetic plan and risks discussed with patient. MEL Screening Labs: Lab Results Component Value Date WBC 10.9 (H) 01/25/2023 HGB 10.4 (L) 01/25/2023 HCT 32.9 (L) 01/25/2023 MCV 86.3 01/25/2023 PLT 250 01/25/2023 Lab Results Component Value Date NA 135 01/25/2023 K 3.8 01/25/2023 CL 105 01/25/2023 CO2 21 (L) 01/25/2023 BUN 14 01/25/2023 CREATININE 0.58 01/25/2023 GLUCOSE 97 01/25/2023 CALCIUM 8.4 01/25/2023 EGFR >90.0 01/25/2023 Pain Score: 2 No echocardiogram results found for the past 14 days 01/24/23 ECG 12-LEAD 01/24/2023 2:07 AM (Final) Impression Sinus rhythm Compared to ECG 03/05/2018 22:44:19 Sinus tachycardia no longer present Electronically Signed On 01-24-2023 2:07:24 EST by Dell Burden Signed by: Dell Burden MD on 01/24/2023 2:07 AM [facility] 01-25-2023 Note Formatting of this n ote might be different from the original. [facility] [address] [facility] [address] Dept: [phone] Loc: [phone] Operative Report Patient Name: Claribel Stoll Date of : 1955 Date of Surgery: 01/25/23 Pre-operative diagnosis: Right displaced femoral neck fracture Post-operative diagnosis: Same Procedure(s): Cemented hemiarthroplasty of right hip (CPT 21342) Surgeon: Randee Oliver M.D. Axle Polisher(s): Jericho Maradiaga M.D. Anesthesia: General EBL: 50 cc IVF: Crystalloid Medications: Ancef 2 grams IV Implants: Burden N Nephew Conquest stem size 10 standard, Head size -3 Clinical History/Indication for Surgery The patient is a 67 y.o. year old female who was presents for operative fixation of a displaced femoral neck fracture. Typical indications for surgery were reviewed and hemiarthroplasty was recommended. Risks of surgery in general were reviewed including, but not limited to, infection, fracture, subsidence, instability, need for additional procedures, failure of fixation which would require revision, damage to normal structures as well as medical complications such as NH, stroke, PE, DVT, and even . Patient and any family present were given opportunity to ask questions and consider her options ultimately electing to proceed with surgery. No guarantees were given or implied. Operative Narration The patient was identified in the pre-operative holding area. The surgical site was identified and marked. Informed consent was obtained. The patient was then brought to the operating room and placed supine on the operating table. Anesthesia was administered and care of the head, neck, and airway was maintained by the anesthesia staff throughout the entire procedure. Patient was turned lateral decubitus with the operative hip facing up. Axillary roll was placed. All bony prominences were identified and padded. The operative leg was prepped and draped in the usual sterile fashion. A surgical timeout was performed. Antibiotics were confirmed to have been given. A posterior approach to the hip was made incising skin and subcutaneous tissues down to the iliotibial band. This was divided in line with skin and carried into the gluteus ron fascia. The muscle was split along its fibers with finger dissection. The Charnley was placed after palpating and protecting the sciatic nerve. With the medius retracted, the short external rotators and posterior hip capsule were reflected from the posterior femoral neck until the lesser could be palpated and the hip was exposed. This dissection was curved posteriorly along the superior margin of the piriformis. Labrum was not incised. With retractors in place, the femoral neck cut was made approximately one finger breadth above the lesser trochanter. The femoral head was removed and sized and any remaining neck fragments were excised. Two tagging sutures were placed into the piriformis and posterior capsule for later repair through drill holes. With the leg internally rotated, the proximal femur was prepared starting with the box osteotome and canal finder. Baton reamers were passed until cortical chatter was obtained followed by sequential broaching until the last broach obtained good fit within the femur. A trial reduction was performed to ensure correct leg length, hip stability, and soft tissue tensioning. Once appropriate sizing was completed the hip was dislocated and the trial components were removed. The canal was irrigated and dried and a cement restrictor placed approximately 1cm distal to the centralizer. After filling the canal and pressurizing, the final implants were impacted in standard fashion and held until cement was cured. Final reduction was performed. Two drill holes were made in the greater trochanter and final irrigation performed. The postero-superior limb of the capsulotomy was closed with interrupted #2 Ethibond sutures. The two tagging sutures were then pulled thought the greater trochanter and tied with the hip in external rotation. Layered closure was performed including iliotibial band, subcutaneous tissues and skin. A sterile dressing was applied. The patient was turned supine. Blankets were placed between the knees. Once the patient was awakened from anesthesia, they were transported to the PACU in stable condition, having tolerated surgery well with no immediate complications. This operative report was prepared and signed by Randee Oliver MD at 01/25/23, 9:17 AM Post op Plan: WBAT DVT prophylaxis Abx x 24hrs Posterior hip precautions x 6 wks [facility] 01-25-2023 Note Formatting of this n ote might be different from the original. [facility] [address] [facility] [address] Dept: [phone] Loc: [phone] Operative Report Patient Name: Claribel Stoll Date of : 1955 Date of Surgery: 01/25/23 Pre-operative diagnosis: Right displaced femoral neck fracture Post-operative diagnosis: Same Procedure(s): Cemented hemiarthroplasty of right hip (CPT 53076) Surgeon: Randee Oliver M.D. Axle Polisher(s): Jericho Maradiaga M.D. Anesthesia: General EBL: 50 cc IVF: Crystalloid Medications: Ancef 2 grams IV Implants: Burden N Nephew Conquest stem size 10 standard, Head size -3 Clinical History/Indication for Surgery The patient is a 67 y.o. year old female who was presents for operative fixation of a displaced femoral neck fracture. Typical indications for surgery were reviewed and hemiarthroplasty was recommended. Risks of surgery in general were reviewed including, but not limited to, infection, fracture, subsidence, instability, need for additional procedures, failure of fixation which would require revision, damage to normal structures as well as medical complications such as NH, stroke, PE, DVT, and even . Patient and any family present were given opportunity to ask questions and consider her options ultimately electing to proceed with surgery. No guarantees were given or implied. Operative Narration The patient was identified in the pre-operative holding area. The surgical site was identified and marked. Informed consent was obtained. The patient was then brought to the operating room and placed supine on the operating table. Anesthesia was administered and care of the head, neck, and airway was maintained by the anesthesia staff throughout the entire procedure. Patient was turned lateral decubitus with the operative hip facing up. Axillary roll was placed. All bony prominences were identified and padded. The operative leg was prepped and draped in the usual sterile fashion. A surgical timeout was performed. Antibiotics were confirmed to have been given. A posterior approach to the hip was made incising skin and subcutaneous tissues down to the iliotibial band. This was divided in line with skin and carried into the gluteus orn fascia. The muscle was split along its fibers with finger dissection. The Charnley was placed after palpating and protecting the sciatic nerve. With the medius retracted, the short external rotators and posterior hip capsule were reflected from the posterior femoral neck until the lesser could be palpated and the hip was exposed. This dissection was curved posteriorly along the superior margin of the piriformis. Labrum was not incised. With retractors in place, the femoral neck cut was made approximately one finger breadth above the lesser trochanter. The femoral head was removed and sized and any remaining neck fragments were excised. Two tagging sutures were placed into the piriformis and posterior capsule for later repair through drill holes. With the leg internally rotated, the proximal femur was prepared starting with the box osteotome and canal finder. Baton reamers were passed until cortical chatter was obtained followed by sequential broaching until the last broach obtained good fit within the femur. A trial reduction was performed to ensure correct leg length, hip stability, and soft tissue tensioning. Once appropriate sizing was completed the hip was dislocated and the trial components were removed. The canal was irrigated and dried and a cement restrictor placed approximately 1cm distal to the centralizer. After filling the canal and pressurizing, the final implants were impacted in standard fashion and held until cement was cured. Final reduction was performed. Two drill holes were made in the greater trochanter and final irrigation performed. The postero-superior limb of the capsulotomy was closed with interrupted #2 Ethibond sutures. The two tagging sutures were then pulled thought the greater trochanter and tied with the hip in external rotation. Layered closure was performed including iliotibial band, subcutaneous tissues and skin. A sterile dressing was applied. The patient was turned supine. Blankets were placed between the knees. Once the patient was awakened from anesthesia, they were transported to the PACU in stable condition, having tolerated surgery well with no immediate complications. This operative report was prepared and signed by Randee Oliver MD at 01/25/23, 9:17 AM Post op Plan: WBAT DVT prophylaxis Abx x 24hrs Posterior hip precautions x 6 wks [facility] 01-24-2023 Plan of care note Problem: Knowledge Deficit Goal: Patient/family/caregiver demonstrates understanding of disease process, treatment plan, medications, and discharge instructions Outcome: Progressing Problem: Potential for Compromised Skin Integrity Goal: Skin Integrity is Maintained or Improved Outcome: Progressing Goal: Nutritional status is improving Outcome: Progressing [facility] 01-24-2023 Emergency department Note Per previous RN , report called. Pt to [facility]. Pt left approx 1040am with [employer] transport. Altagracia Thapa RN 01/24/23 1045 [facility] 01-24-2023 Emergency department Note Per previous RN , report called. Pt to [facility]. Pt left approx 1040am with [employer] transport. Altagracia Thapa RN 01/24/23 1045 RN introduced her self. Pt on the monitor, call light in reach. Pt declined needs at this time Altagracia Thapa RN 01/24/23 1013 [facility] ETA 2-3 hours Karen Chavis RN 01/24/23 0635 [facility] ED EMERGENCY DEPARTMENT ENCOUNTER Pt Name: Claribel Stoll Birthdate 1955 Date of evaluation: 01/24/2023 Provider: Dell Burden MD CHIEF COMPLAINT Chief Complaint Patient presents with Hip Pain Pt came [facility] or a hip fracture. Pt fell yesterday morning and had an xray done that showed a r hip fracture. HISTORY OF PRESENT ILLNESS (Location/Symptom, Timing/Onset,Context/Setting, Quality, Duration, Modifying Factors, Severity) Note limiting factors. Claribel Stoll is a 67 y.o. female who presents to the emergency department patient from group home. Apparently she fell yesterday and x-ray showed right hip fracture. Brought in via ambulance due to hip fracture. Patient does have a history of dementia. Unclear if she hit her head or not. She does appear to have right-sided facial droop and she cannot give history as to whether this is chronic or not. She does follow commands. She reports pain in the right hip but no chest pain shortness breath fevers chills cough cold congestion. Patient reportedly fell yesterday. HPI Historian is the patient Nurse's notes for past medical history, surgical history, social history were reviewed. Medications and allergies reviewed. PAST MEDICAL HISTORY Past Medical History: Diagnosis Date Anxiety Depression Fractures 03/05/2018 left proximal humerus SURGICALHISTORY Past Surgical History: Procedure Laterality Date OTHER SURGICAL HISTORY LLE surgery CURRENT MEDICATIONS Previous Medications ATORVASTATIN (LIPITOR) 20 MG TABLET Take 20 mg by mouth in the morning. Patient has no known allergies. FAMILY HISTORY Family History Problem Relation Name Age of Onset Diabetes type II Sister SOCIAL HISTORY Social History Socioeconomic History Marital status: Tobacco Use Smoking status: Never Smokeless tobacco: Never Substance and Sexual Activity Alcohol use: Yes Drug use: No SCREENINGS PHYSICAL EXAM (up to 7 for level 4, 8 or more for level 5) @EDTRIAGEVSS@ Appropriate PPE including n 95, gown, gloves, goggles where worn when appropriate with this patient. Physical Exam Vital signs reviewed general: Alert and oriented 1, appears to be baseline head: Atraumatic eyes: Equal round reactive to light and accommodating, pupils are equal, round and reactive to light and accommodation oropharynx: Clear and well hydrated neck: Supple, no midline cervical tenderness heart: Regular rate and rhythm, no murmurs lungs: Clear to auscultation bilaterally abdomen: Soft nontender, positive bowel sounds, no peritoneal findings. Extremities: No pain in the bilateral upper extremities or left lower extremity but does have pain with any attempt to move the right leg and shortening the right leg. No knee pain or ankle pain. Equal pulses. Normal capillary refill. Skin: No rash or lesions -to the exposed skin neurologically: Alert and oriented 1. Patient appears to be having a high riding right eyebrow and facial drooping on the right it is unclear if this is new or chronic I was unable to find any documentation of it in her records. No focal neurologic deficit otherwise. Sensations intact. She does follow commands. Strength appears to be equal limited the right leg secondary to pain. Did not test gait. We are confirming with the group home if she has had right-sided facial drooping in the past. 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 Do not believe this is new therefore. DIAGNOSTIC RESULTS RADIOLOGY: Interpretation per the Radiologist below, if availableat the time of this note: XR chest 1 view Final Result No acute consolidative process. Report Dictated on Electronically Signed By: Marin Mack DR Electronically Signed Date/Time: 01/24/2023 3:[address] head wo IV contrast Final Result No acute intracranial hemorrhage or territorial infarct. Similar appearance of chronic ischemic findings. Report Dictated on Electronically Signed By: Marin Mack DR Electronically Signed Date/Time: 01/24/2023 2:09 AM EST XR hip right 2 or 3 views Final Result Mildly displaced right proximal femoral neck fracture. Report Dictated on Electronically Signed By: Marin Mack DR Electronically Signed Date/Time: 01/24/2023 1:44 AM EST ED BEDSIDE ULTRASOUND: Performed by ED Physician - none LABS: Labs Reviewed BASIC METABOLIC PANEL - Abnormal Result Value SODIUM 137 POTASSIUM 4.3 CHLORIDE 105 CARBON DIOXIDE 25 UREA NITROGEN 19 (*) CREATININE 0.73 GLUCOSE 116 (*) CALCIUM 8.9 ANION GAP 8 eGFR 89.7 CBC WITH AUTO DIFFERENTIAL - Abnormal Auto WBC 14.6 (*) RBC 4.18 Hemoglobin 11.3 (*) Hematocrit 35.6 MCV 85.2 MCH 27.0 MCHC 31.7 (*) RDW 14.7 (*) Platelets 292 MPV 8.3 nRBC 0.0 Neutrophils Relative 79.9 Lymphocytes Relative 11.6 (*) Monocytes Relative 6.6 Eosinophils Relative 1.5 Basophils Relative 0.4 Neutrophils Absolute 11.7 (*) Lymphocytes Absolute 1.7 Monocytes Absolute 1.0 (*) Eosinophils Absolute 0.2 Basophils Absolute 0.1 SARS-COV-2, FLU A/B, AND RSV COMBO - Normal SARS-CoV-2 Not Detected Respiratory Syncytial Virus Not Detected Influenza A Not Detected Influenza B Not Detected Narrative: Methodology: real-time, RT-PCR The SARS-CoV-2, Flu A/B, and RSV Combo assay is intended for in vitro diagnostic use under the FDA Emergency Use Authorization (EUA). This test has not been FDA cleared or approved. In compliance with this authorization, please visit www.fda.gov/media/813217/download or www.[place].gov/media/174780/download to access the applicable information sheets. TROPONIN I - Normal TROPONIN I <0.012 Narrative: Patients with high levels of Biotin oral intake (ie >5 mg/day) may have falsely decreased Troponin levels. All other labs were within normal range or not returned as of thisdictation. EMERGENCYDEPARTMENT COURSE and DIFFERENTIAL DIAGNOSIS/MDM: Vitals: Vitals: 01/24/23 0053 01/24/2321001/24/2321501/24/23217 BP: 97/55 110/50 BP Location: Left arm Pulse: 82 Resp: 16 16 Temp: SpO2: (!) 88% 96% 96% Medical Decision Making Problems Addressed: Closed fracture of right hip, initial encounter (HCC): complicated acute illness or injury Hypoxia: complicated acute illness or injury Amount and/or Complexity of Data Reviewed Labs: ordered. Radiology: ordered. ECG/medicine tests: ordered. Risk Decision regarding hospitalization. EMERGENCY DEPARTMENT COURSE and DIFFERENTIAL DIAGNOSIS/MDM: Vitals: Vitals: 01/24/235201/24/2321001/24/2321501/24/23217 BP: 97/55 110/50 BP Location: Left arm Pulse: 82 Resp: 16 16 Temp: SpO2: (!) 88% 96% 96% The patient presented with a chief complaint of fall. The differential diagnosis associated with this patient's presentation includes hip fracture, hip contusion, closed head injury electrolyte disturbance. Our workup consisted of ordering/reviewing CT of the head, x-ray of the right hip, EKG blood work. EKG shows no signs of ischemia. COVID influenza negative. Troponin negative. 14,000 white blood cell count. BUN 19 glucose 116. Patient did have drop in saturations to 88%. She fell yesterday. Likely has some atelectasis but on 2 L and saturations, up to 9899%. Initially had a low blood pressure but recheck is 110/50. Gave her 500 saline bolus as I do believe component of dehydration is possible. I do not believe it is PE. She is not septic. I do not believe she had acute stroke. Patient has acute right hip fracture that requires admission. I spoke with Dr. Woodward. He agrees to admission. Patient last had surgery on her left hip at [facility]. Will place consultation to [facility]. Chest x-ray per my interpretation no signs of pneumonia. CT of the head no acute process. My suspicion for PE is low I do not believe this is active ACS. This time no signs of pneumonia based on chest x-ray. She has no fever. Diagnoses as of 01/24/23 0346 Closed fracture of right hip, initial encounter ([facility]) Hypoxia Diagnostics considered but not indicated based on history, physical, testing: CT of the neck however not clinically indicated. External records reviewed: No significant records in [facility]. Care Everywhere does reveal closed left hip fracture. This was in 01/27/2022 Reviewed group home records she has a history of dementia she has history of behavioral disturbance mood disturbance anxiety. History of difficulty swallowing. Peripheral vascular disease anxiety depression schizoaffective disorder hyperlipidemia facial weakness from prior CVA. Given these findings would support that her facial weakness on the right is chronic and not new. Radiologic diagnostics interpreted by me: film images such as CT, Ultrasound and MRI are read by the radiologist. Plain radiographic images are visualized and preliminarily interpreted by the emergency physician with the below findings: Xray(s) x-ray per my interpretation shows right femoral neck hip fracture. CT scan(s) CT of the head no acute process. EKG per my interpretation sinus rhythm no acute ST elevation or ischemic findings. Chest x-ray per my interpretation no acute process. Discussions with other clinicians: Admitting team Dr. Ramirez hospitalist for admit Chronic conditions impacting care: Dementia per EMS report Social determinants of health affecting care: Lives in extended-care facility Shared decision making: Patient agrees to treatment plan ED Medications managed: Medications - No data to display Prescription drugs considered: PROCEDURES: Unless otherwise noted below, none Procedures IMPRESSION 1. Closed fracture of right hip, initial encounter (HCC) 2. Hypoxia DISPOSITION/PLAN DISPOSITION Admit 01/24/2023 03:12:34 AM PATIENT REFERRED TO: No follow-up provider specified. DISCHARGE MEDICATIONS: New Prescriptions No medications on file @[facility]([id number]:LAST:1)@ (Comment: Please notethis report has been produced using speech recognition software and may contain errors related to that system including errors in grammar, punctuation, and spelling, as well as words and phrases that may be inappropriate.If there is any questions or concerns please feel free to contact the dictating provider for clarification). Dell Burden MD (electronically signed) Attending Emergency Physician Dell Burden MD 01/24/23 0333 Dell Burden MD 01/24/23 0346 Bed: 33 Expected date: 01/24/23 Expected time: Means of arrival: Comments: [facility] Karen Chavis RN 01/24/23 0048 documented in this encounter [facility] 01-24-2023 Emergency department Note RN introduced her self. Pt on the monitor, call light in reach. Pt declined needs at this time Altagracia Thapa RN 01/24/23 1013 [facility] 01-24-2023 Emergency department Note Physicians ETA 2-3 hours Karen Chavis RN 01/24/23 0635 [facility] 01-24-2023 Note Attending History an d Physical Admit Date: 01/24/2023 PCP: Morris Carr CHIEF COMPLAINT: Chief Complaint Patient presents with Hip Pain Pt came in via [facility] or a hip fracture. Pt fell yesterday morning and had an xray done that showed a r hip fracture. HISTORY OF PRESENT ILLNESS: Claribel is a 67 y.o. female with past medical history below who presented to ED from SNF for further evaluation of Rt hip fracture after a fall. Pt is a poor historian due to underlying dementia, states that she tripped and fell. X-rays showed Rt hip fracture so transferred to ED for further management and evaluation. Denied loss of consciousness, dizziness, chest pain, nausea, vomiting, fever, chills, or abdominal pain. Past Medical History: Past Medical History: Diagnosis Date Anxiety Depression Fractures 03/05/2018 left proximal humerus Past Surgical History: Past Surgical History: Procedure Laterality Date OTHER SURGICAL HISTORY LLE surgery Social History: Social History Socioeconomic History Marital status: Spouse name: Not on file Number of children: Not on file Years of education: Not on file Highest education level: Not on file Occupational History Not on file Tobacco Use Smoking status: Never Smokeless tobacco: Never Substance and Sexual Activity Alcohol use: Yes Drug use: No Sexual activity: Not on file Other Topics Concern Not on file Social History Narrative Not on file Social Determinants of Health Financial Resource Strain: Not on file Food Insecurity: Not on file Transportation Needs: Not on file Physical Activity: Not on file Stress: Not on file Social Connections: Not on file Intimate Partner Violence: Not on file Housing Stability: Not on file Family History: Family History Problem Relation Name Age of Onset Diabetes type II Sister Medications Prior to Admission: No current facility-administered medications on file prior to encounter. Current Outpatient Medications on File Prior to Encounter Medication Sig Dispense Refill atorvastatin (Lipitor) 20 MG tablet Take 20 mg by mouth in the morning. Allergies: No Known Allergies REVIEW OF SYSTEMS: As per HPI Vitals: BP 110/50 (BP Location: Left arm) Pulse 82 Temp 36.5 ?C (97.7 ?F) Resp 16 SpO2 96% BMI Classification: Pulse Ox: SpO2 Av.3 % Min: 88 % Max: 96 % Supplemental O2: O2 Flow Rate (L/min): 2 L/min PHYSICAL EXAM: Physical Exam HEENT: PERRLA, EOMI, no pallor Neck: supple, nontender Chest: BLAE+, diminished CVS: S1+, S2+, no m/r/g Abdomen: soft, nondistended, nontender, BS+ POLYSTYRENE BEAD MOLDER: Awake and alert, pleasantly confused Ext: pulse 2+, no edema DATA: CBC: Recent Labs 01/24/23216 WBC 14.6* RBC 4.18 HGB 11.3* HCT 35.6 MCV 85.2 RDW 14.7* PLT 292 BMP: Recent Labs 01/24/23216 NA 137 K 4.3 CL 105 CO2 25 BUN 19* CREATININE 0.73 GLUCOSE 116* CALCIUM 8.9 ANIONGAP 8 LIVER PROFILE:No results for input(s): "AST", "ALT", "BILITOT", "ALKPHOS", "PROT" in the last 72 hours. No lab exists for component: LABALBU PT/INR: No results for input(s): "PROTIME", "INR" in the last 72 hours. CARDIAC ENZYMES: Recent Labs 01/24/23 0217 TROPONINI <0.012 Procalcitonin: No results found for: "PROCAL" Urine Culture: No results found for this or any previous visit. COVID-19 PCR: No results for input(s): "COVID19" in the last 72 hours. I reviewed: [x] laboratory results [x] radiographic results At the time of today's encounter. Pt was advised of the results. Data: (CAT1) Reviewed 3 or more notes from different specialty or health system (each=1). (LOW: 2x CAT1 or independent historian MOD: 3x CAT1 or 1x CAT3 EXTENSIVE: 3x CAT1 and 1x CAT3) Assessment Discussed management with the ED provider and agree with hospitalization. Acute, acute on chronic, unstable/uncontrolled chronic problems/diagnoses: # s/p mechanical fall # Rt proximal femoral neck fracture # Leukocytosis - Ortho consulted in ED - NPO - Pain control - Pt is medically optimized for OR Stable chronic problems affecting care, new non-acute diagnoses: # Hypothyroidism # CVA # Anxiety/Depression - home meds as ordered Plan As a result of the above findings & factors, the following mgmt was pursued: - am labs, replace lytes prn - PT/OT/CM/SW - delirium precautions: increase activity - DVT prophylaxis: enoxaparin and encourage ambulation Anticipated Discharge - Date - TBD - Location - TBD - Pending the following - clinical course Total time spent (which include face to face and non face to face encounters) : 55 minutes. Extended Emergency Contact Information Primary Emergency Contact: Missy Whitfield Mobile Relation: Sibling Secondary Emergency Contact: Yoel Joseph Relation: Other Kizzy Singh (more content not included)... [facility] 01-24-2023 Consult note Associated Order (s): IP CONSULT TO ORTHOPAEDIC SURGERY Ortho Consult Patient: Claribel Stoll Date of : 1955 Acct: [id number] PCP: Morris Carr Date of Admission: 01/24/2023 Date of Service: Pt seen/examined on 01/24/2023 Chief Complaint: Right hip pain History Of Present Illness: 67 y.o. female with PMHx of dementia who presents with right hip pain after a fall from standing. She was sent to the emergency department from her group home in [place] she is pleasantly demented on exam and able to answer some but not all questions. Reports right hip pain but otherwise denies pain in extremities. PMH of dementia. Lives in group home. Orthopaedic surgery history: -Prior left hip hemiarthroplasty done at [facility] 11/2021 -Known to Dr. Redman for non-op management of left proximal humerus fracture in 2019 Patient ambulation status: Not clear . Antiplatelets/Anticoagulation includes: ASA. Hx from chart and/or Pt. Past Medical History: Past Medical History: Diagnosis Date Anxiety Depression Fractures 03/05/2018 left proximal humerus Past Surgical History: Past Surgical History: Procedure Laterality Date OTHER SURGICAL HISTORY LLE surgery Home Medications: Prior to Admission medications Medication Sig Start Date End Date Taking? Authorizing Provider aspirin 81 MG EC tablet Take 81 mg by mouth daily. Historical Provider, atorvastatin (Lipitor) 20 MG tablet Take 20 mg by mouth in the morning. Historical Provider, buPROPion XL (Wellbutrin XL) 150 MG 24 hr tablet Take 150 mg by mouth daily. Do not crush, chew, or split. Historical Provider, citalopram (CeleXA) 10 MG tablet Take 20 mg by mouth daily. Historical Provider, D-Mannose (Azo D-Mannose) 500 MG capsule Take 500 mg by mouth in the morning and 500 mg in the evening. Historical Provider, haloperidol (Haldol) 1 MG tablet Take 1 mg by mouth 3 times daily. Historical Provider, levothyroxine (Synthroid, Levoxyl) 50 MCG tablet Take 50 mcg by mouth every morning (before breakfast). Historical Provider, levothyroxine (Tirosint) 100 MCG capsule Take by mouth every morning (before breakfast). Historical Provider, Lidocaine ( Lidocaine Patch) 4 % patch Place 1 patch on the skin daily. Apply to lower back Historical ProviderMD LORazepam (Ativan) 0.5 MG tablet Take by mouth. Historical ProviderMD LORazepam (Ativan) 1 MG tablet Take 1 mg by mouth 2 times daily at 0800 and 1400. Historical Provider, melatonin 5 MG tablet Take 5 mg by mouth Nightly as needed. Historical Provider, polycarbophil (Fibercon) 625 MG tablet Take 625 mg by mouth daily. Historical Provider, pregabalin (Lyrica) 100 MG capsule Take 100 mg by mouth 3 times daily. Historical Provider, Current Hospital Medications: Current Facility-Administered Medications: oxyCODONE (Roxicodone) immediate release tablet 5 mg, 5 mg, Oral, q6h PRN, Kizzy Garsia MD Current Outpatient Medications: aspirin 81 MG EC tablet, Take 81 mg by mouth daily., Disp: , Rfl: atorvastatin (Lipitor) 20 MG tablet, Take 20 mg by mouth in the morning., Disp: , Rfl: buPROPion XL (Wellbutrin XL) 150 MG 24 hr tablet, Take 150 mg by mouth daily. Do not crush, chew, or split., Disp: , Rfl: citalopram (CeleXA) 10 MG tablet, Take 20 mg by mouth daily., Disp: , Rfl: D-Mannose (Azo D-Mannose) 500 MG capsule, Take 500 mg by mouth in the morning and 500 mg in the evening., Disp: , Rfl: haloperidol (Haldol) 1 MG tablet, Take 1 mg by mouth 3 times daily., Disp: , Rfl: levothyroxine (Synthroid, Levoxyl) 50 MCG tablet, Take 50 mcg by mouth every morning (before breakfast)., Disp: , Rfl: levothyroxine (Tirosint) 100 MCG capsule, Take by mouth every morning (before breakfast)., Disp: , Rfl: Lidocaine (HM Lidocaine Patch) 4 % patch, Place 1 patch on the skin daily. Apply to lower back, Disp: , Rfl: LORazepam (Ativan) 0.5 MG tablet, Take by mouth., Disp: , Rfl: LORazepam (Ativan) 1 MG tablet, Take 1 mg by mouth 2 times daily at 0800 and 1400., Disp: , Rfl: melatonin 5 MG tablet, Take 5 mg by mouth Nightly as needed., Disp: , Rfl: polycarbophil (Fibercon) 625 MG tablet, Take 625 mg by mouth daily., Disp: , Rfl: pregabalin (Lyrica) 100 MG capsule, Take 100 mg by mouth 3 times daily., Disp: , Rfl: Allergies: Patient has no known allergies. Social History: Social History Socioeconomic History Marital status: Spouse name: Not on file Number of children: Not on file Years of education: Not on file Highest education level: Not on file Occupational History Not on file Tobacco Use Smoking status: Never Smokeless tobacco: Never Substance and Sexual Activity Alcohol use: Yes Drug use: No Sexual activity: Not on file Other Topics Concern Not on file Social History Narrative Not on file Social Determinants of Health Financial Resource Strain: Not on file Food Insecurity: Not on file Transportation Needs: Not on file Physical Activity: Not on file Stress: Not on file Social Connections: Not on file Intimate Partner Violence: Not on file Housing Stability: Not on file Family History: Family History Problem Relation Name Age of Onset Diabetes type II Sister Further Family History is noncontributory to this injury. REVIEW OF SYSTEMS: A thorough review of systems was unable to be obtained secondary to dementia PHYSICAL EXAM: BP 106/58 Pulse 73 Temp 36.5 C (97.7 F) Resp 16 SpO2 99% GENERAL APPEARANCE: Awake and oriented x1. No acute distress, except appropriate to injury. MOOD AND AFFECT: Calm appropriate to situation GAIT AND STATION: Patient is in bed and unable to ambulate secondary to known injury. REFLEXES: No clonus or Babinski. COORDINATION and BALANCE: Patient is grossly coordinated unable to ambulate secondary to known injury. Right Upper Extremity: -No obvious pain or deformity to inspection with normal joint range of motion, stability, and muscle strength except noted below -No TTP over clavicle, shoulder, humerus, elbow, forearm, wrist, hand, or fingers -TTP: nontender throughout extremity -Painless pROM at shoulder/elbow/wrist Extremity is grossly atraumatic Left Upper Extremity: -No obvious pain or deformity to inspection with normal joint range of motion, stability, and muscle strength except noted below -No TTP over clavicle, shoulder, humerus, elbow, forearm, wrist, hand, or fingers -TTP: nontender throughout extremity -Painless pROM at shoulder/elbow/wrist Extremity is grossly atraumatic Right lower Extremity: -No obvious pain or deformity to inspection with normal joint range of motion, stability, and muscle strength except noted below. Extremity shortened and externally rotated. Skin over lateral hip is clean and dry without signs of wounds or breakdown. -No TTP over knee, tibia, lateral mal, medial mal, calc, midfoot, forefoot -TTP: hip -Pulse: DP Palpable -SILT in the superficial peroneal, deep peroneal, tibial, sural, saphenous nerve distributions -Motor function of tibialis anterior, extensor hallucis longus, and gactrocsoleus complex intact -Skin intact except where noted below -Painless pROM at knee/ankle - + logroll Pain with ROM of hip, otherwise extremity is grossly atraumatic. Skin over hip c/d/I. Left lower Extremity: -No obvious pain or deformity to inspection with normal joint range of motion, stability, and muscle strength except noted below -No TTP over pelvis, hip, thigh, knee, tibia, lateral mal, medial mal, calc, midfoot, forefoot -TTP: Nontender throughout extremity -Pulse: DP Palpable -SILT in the superficial peroneal, deep peroneal, tibial, sural, saphenous nerve distributions -Motor function of quad, tibialis anterior, extensor hallucis longus, and gactrocsoleus complex intact -Skin intact except where noted below -Painless pROM at hip/knee/ankle Extremity is grossly atraumatic Labs: CBC: Lab Results Component Value Date WBC 14.6 (H) 01/24/2023 RBC 4.18 01/24/2023 BMP: Lab Results Component Value Date GLUCOSE 116 (H) 01/24/2023 CO2 25 01/24/2023 BUN 19 (H) 01/24/2023 CREATININE 0.73 01/24/2023 CALCIUM 8.9 01/24/2023 PT/INR: No results found for: "PT", "INR", "APTT" Type and Screen: No results found for: "RH", "LABANTI" CRP: No results found for: "CRP" ESR: No results found for: SEDRATE HgBA1c: No components found for: LABA1C The above labs were reviewed by me. Radiology: The below images were independently reviewed and interpreted XR: Right femur and hip: Displaced right femoral neck fracture. No other acute fracture or dislocation. Pelvis: Right displaced femoral neck fx. Prior L hip hemiarthroplasty. Radiology report reviewed. ASSESSMENT: 67 y.o. female with right femoral neck fracture PLAN: -Will D/w Dr. Oliver -Plan for OR for R hip hemiarthroplasty -Transfer to [facility] for surgery -NPO, hold anticoags -Clear per medicine pending -Consented via phone conversation with brother garry -Pre-op workup in process -Ice -Bedrest -Insert shelley -Admit to medicine -Pain control & medical management per primary Attending attestation: I independently saw and evaluated this patient. Discussion was limited given her dementia but family informed of her injury and surgical vs conservative treatment options. Plan with right hemiarthroplasty. Risks of fracture surgery in general were reviewed including, but not limited to, infection, non-union, need for additional procedures, painful or prominent hardware which could require removal, failure of fixation which would require revision, damage to normal structures as well as medical complications such as NH, stroke, PE, DVT, and even . Pt was given opportunity to ask questions and consider her options. She ultimately elected to proceed with surgery. No guarantees were given or implied. Randee Oliver MD [email or web address] Phone: 01-24-2023 Consult note Associated Order (s): IP CONSULT TO ORTHOPAEDIC SURGERY Ortho Consult Patient: Claribel Stoll Date of : 1955 Acct: [id number] PCP: Morris Carr Date of Admission: 01/24/2023 Date of Service: Pt seen/examined on 01/24/2023 Chief Complaint: Right hip pain History Of Present Illness: 67 y.o. female with PMHx of dementia who presents with right hip pain after a fall from standing. She was sent to the emergency department from her group home in [place] she is pleasantly demented on exam and able to answer some but not all questions. Reports right hip pain but otherwise denies pain in extremities. PMH of dementia. Lives in group home. Orthopaedic surgery history: -Prior left hip hemiarthroplasty done at [facility] 11/2021 -Known to Dr. Redman for non-op management of left proximal humerus fracture in 2019 Patient ambulation status: Not clear . Antiplatelets/Anticoagulation includes: ASA. Hx from chart and/or Pt. Past Medical History: Past Medical History: Diagnosis Date Anxiety Depression Fractures 03/05/2018 left proximal humerus Past Surgical History: Past Surgical History: Procedure Laterality Date OTHER SURGICAL HISTORY LLE surgery Home Medications: Prior to Admission medications Medication Sig Start Date End Date Taking? Authorizing Provider aspirin 81 MG EC tablet Take 81 mg by mouth daily. Historical Provider, atorvastatin (Lipitor) 20 MG tablet Take 20 mg by mouth in the morning. Historical Provider, buPROPion XL (Wellbutrin XL) 150 MG 24 hr tablet Take 150 mg by mouth daily. Do not crush, chew, or split. Historical Provider, citalopram (CeleXA) 10 MG tablet Take 20 mg by mouth daily. Historical Provider, D-Mannose (Azo D-Mannose) 500 MG capsule Take 500 mg by mouth in the morning and 500 mg in the evening. Historical Provider, haloperidol (Haldol) 1 MG tablet Take 1 mg by mouth 3 times daily. Historical Provider, levothyroxine (Synthroid, Levoxyl) 50 MCG tablet Take 50 mcg by mouth every morning (before breakfast). Historical Provider, levothyroxine (Tirosint) 100 MCG capsule Take by mouth every morning (before breakfast). Historical Provider, Lidocaine (HM Lidocaine Patch) 4 % patch Place 1 patch on the skin daily. Apply to lower back Historical Provider, LORazepam (Ativan) 0.5 MG tablet Take by mouth. Historical ProviderMD LORazepam (Ativan) 1 MG tablet Take 1 mg by mouth 2 times daily at 0800 and 1400. Historical Provider, melatonin 5 MG tablet Take 5 mg by mouth Nightly as needed. Historical Provider, polycarbophil (Fibercon) 625 MG tablet Take 625 mg by mouth daily. Historical Provider, pregabalin (Lyrica) 100 MG capsule Take 100 mg by mouth 3 times daily. Historical Provider, Current Hospital Medications: Current Facility-Administered Medications: oxyCODONE (Roxicodone) immediate release tablet 5 mg, 5 mg, Oral, q6h PRN, Kizzy Garsia MD Current Outpatient Medications: aspirin 81 MG EC tablet, Take 81 mg by mouth daily., Disp: , Rfl: atorvastatin (Lipitor) 20 MG tablet, Take 20 mg by mouth in the morning., Disp: , Rfl: buPROPion XL (Wellbutrin XL) 150 MG 24 hr tablet, Take 150 mg by mouth daily. Do not crush, chew, or split., Disp: , Rfl: citalopram (CeleXA) 10 MG tablet, Take 20 mg by mouth daily., Disp: , Rfl: D-Mannose (Azo D-Mannose) 500 MG capsule, Take 500 mg by mouth in the morning and 500 mg in the evening., Disp: , Rfl: haloperidol (Haldol) 1 MG tablet, Take 1 mg by mouth 3 times daily., Disp: , Rfl: levothyroxine (Synthroid, Levoxyl) 50 MCG tablet, Take 50 mcg by mouth every morning (before breakfast)., Disp: , Rfl: levothyroxine (Tirosint) 100 MCG capsule, Take by mouth every morning (before breakfast)., Disp: , Rfl: Lidocaine (HM Lidocaine Patch) 4 % patch, Place 1 patch on the skin daily. Apply to lower back, Disp: , Rfl: LORazepam (Ativan) 0.5 MG tablet, Take by mouth., Disp: , Rfl: LORazepam (Ativan) 1 MG tablet, Take 1 mg by mouth 2 times daily at 0800 and 1400., Disp: , Rfl: melatonin 5 MG tablet, Take 5 mg by mouth Nightly as needed., Disp: , Rfl: polycarbophil (Fibercon) 625 MG tablet, Take 625 mg by mouth daily., Disp: , Rfl: pregabalin (Lyrica) 100 MG capsule, Take 100 mg by mouth 3 times daily., Disp: , Rfl: Allergies: Patient has no known allergies. Social History: Social History Socioeconomic History Marital status: Spouse name: Not on file Number of children: Not on file Years of education: Not on file Highest education level: Not on file Occupational History Not on file Tobacco Use Smoking status: Never Smokeless tobacco: Never Substance and Sexual Activity Alcohol use: Yes Drug use: No Sexual activity: Not on file Other Topics Concern Not on file Social History Narrative Not on file Social Determinants of Health Financial Resource Strain: Not on file Food Insecurity: Not on file Transportation Needs: Not on file Physical Activity: Not on file Stress: Not on file Social Connections: Not on file Intimate Partner Violence: Not on file Housing Stability: Not on file Family History: Family History Problem Relation Name Age of Onset Diabetes type II Sister Further Family History is noncontributory to this injury. REVIEW OF SYSTEMS: A thorough review of systems was unable to be obtained secondary to dementia PHYSICAL EXAM: BP 106/58 Pulse 73 Temp 36.5 C (97.7 F) Resp 16 SpO2 99% GENERAL APPEARANCE: Awake and oriented x1. No acute distress, except appropriate to injury. MOOD AND AFFECT: Calm appropriate to situation GAIT AND STATION: Patient is in bed and unable to ambulate secondary to known injury. REFLEXES: No clonus or Babinski. COORDINATION and BALANCE: Patient is grossly coordinated unable to ambulate secondary to known injury. Right Upper Extremity: -No obvious pain or deformity to inspection with normal joint range of motion, stability, and muscle strength except noted below -No TTP over clavicle, shoulder, humerus, elbow, forearm, wrist, hand, or fingers -TTP: nontender throughout extremity -Painless pROM at shoulder/elbow/wrist Extremity is grossly atraumatic Left Upper Extremity: -No obvious pain or deformity to inspection with normal joint range of motion, stability, and muscle strength except noted below -No TTP over clavicle, shoulder, humerus, elbow, forearm, wrist, hand, or fingers -TTP: nontender throughout extremity -Painless pROM at shoulder/elbow/wrist Extremity is grossly atraumatic Right lower Extremity: -No obvious pain or deformity to inspection with normal joint range of motion, stability, and muscle strength except noted below. Extremity shortened and externally rotated. Skin over lateral hip is clean and dry without signs of wounds or breakdown. -No TTP over knee, tibia, lateral mal, medial mal, calc, midfoot, forefoot -TTP: hip -Pulse: DP Palpable -SILT in the superficial peroneal, deep peroneal, tibial, sural, saphenous nerve distributions -Motor function of tibialis anterior, extensor hallucis longus, and gactrocsoleus complex intact -Skin intact except where noted below -Painless pROM at knee/ankle - + logroll Pain with ROM of hip, otherwise extremity is grossly atraumatic. Skin over hip c/d/I. Left lower Extremity: -No obvious pain or deformity to inspection with normal joint range of motion, stability, and muscle strength except noted below -No TTP over pelvis, hip, thigh, knee, tibia, lateral mal, medial mal, calc, midfoot, forefoot -TTP: Nontender throughout extremity -Pulse: DP Palpable -SILT in the superficial peroneal, deep peroneal, tibial, sural, saphenous nerve distributions -Motor function of quad, tibialis anterior, extensor hallucis longus, and gactrocsoleus complex intact -Skin intact except where noted below -Painless pROM at hip/knee/ankle Extremity is grossly atraumatic Labs: CBC: Lab Results Component Value Date WBC 14.6 (H) 01/24/2023 RBC 4.18 01/24/2023 BMP: Lab Results Component Value Date GLUCOSE 116 (H) 01/24/2023 CO2 25 01/24/2023 BUN 19 (H) 01/24/2023 CREATININE 0.73 01/24/2023 CALCIUM 8.9 01/24/2023 PT/INR: No results found for: "PT", "INR", "APTT" Type and Screen: No results found for: "RH", "LABANTI" CRP: No results found for: "CRP" ESR: No results found for: SEDRATE HgBA1c: No components found for: LABA1C The above labs were reviewed by me. Radiology: The below images were independently reviewed and interpreted XR: Right femur and hip: Displaced right femoral neck fracture. No other acute fracture or dislocation. Pelvis: Right displaced femoral neck fx. Prior L hip hemiarthroplasty. Radiology report reviewed. ASSESSMENT: 67 y.o. female with right femoral neck fracture PLAN: -Will D/w Dr. Oliver -Plan for OR for R hip hemiarthroplasty -Transfer to [facility] for surgery -NPO, hold anticoags -Clear per medicine pending -Consented via phone conversation with brother garry -Pre-op workup in process -Ice -Bedrest -Insert shelley -Admit to medicine -Pain control & medical management per primary Attending attestation: I independently saw and evaluated this patient. Discussion was limited given her dementia but family informed of her injury and surgical vs conservative treatment options. Plan with right hemiarthroplasty. Risks of fracture surgery in general were reviewed including, but not limited to, infection, non-union, need for additional procedures, painful or prominent hardware which could require removal, failure of fixation which would require revision, damage to normal structures as well as medical complications such as NH, stroke, PE, DVT, and even . Pt was given opportunity to ask questions and consider her options. She ultimately elected to proceed with surgery. No guarantees were given or implied. Randee Oliver MD documented in this encounter [facility] 01-24-2023 History and physical note Images from the original note were not included. Attending History and Physical Admit Date: 01/24/2023 PCP: Morris Carr CHIEF COMPLAINT: Chief Complaint Patient presents with Hip Pain Pt came [facility] via [facility] or a hip fracture. Pt fell yesterday morning and had an xray done that showed a r hip fracture. HISTORY OF PRESENT ILLNESS: Claribel is a 67 y.o. female with past medical history below who presented to ED from SNF for further evaluation of Rt hip fracture after a fall. Pt is a poor historian due to underlying dementia, states that she tripped and fell. X-rays showed Rt hip fracture so transferred to ED for further management and evaluation. Denied loss of consciousness, dizziness, chest pain, nausea, vomiting, fever, chills, or abdominal pain. Past Medical History: Past Medical History: Diagnosis Date Anxiety Depression Fractures 03/05/2018 left proximal humerus Past Surgical History: Past Surgical History: Procedure Laterality Date OTHER SURGICAL HISTORY LLE surgery Social History: Social History Socioeconomic History Marital status: Spouse name: Not on file Number of children: Not on file Years of education: Not on file Highest education level: Not on file Occupational History Not on file Tobacco Use Smoking status: Never Smokeless tobacco: Never Substance and Sexual Activity Alcohol use: Yes Drug use: No Sexual activity: Not on file Other Topics Concern Not on file Social History Narrative Not on file Social Determinants of Health Financial Resource Strain: Not on file Food Insecurity: Not on file Transportation Needs: Not on file Physical Activity: Not on file Stress: Not on file Social Connections: Not on file Intimate Partner Violence: Not on file Housing Stability: Not on file Family History: Family History Problem Relation Name Age of Onset Diabetes type II Sister Medications Prior to Admission: No current facility-administered medications on file prior to encounter. Current Outpatient Medications on File Prior to Encounter Medication Sig Dispense Refill atorvastatin (Lipitor) 20 MG tablet Take 20 mg by mouth in the morning. Allergies: No Known Allergies REVIEW OF SYSTEMS: As per HPI Vitals: BP 110/50 (BP Location: Left arm) Pulse 82 Temp 36.5 C (97.7 F) Resp 16 SpO2 96% BMI Classification: Pulse Ox: SpO2 Av.3 % Min: 88 % Max: 96 % Supplemental O2: O2 Flow Rate (L/min): 2 L/min PHYSICAL EXAM: Physical Exam HEENT: PERRLA, EOMI, no pallor Neck: supple, nontender Chest: BLAE+, diminished CVS: S1+, S2+, no m/r/g Abdomen: soft, nondistended, nontender, BS+ POLYSTYRENE BEAD MOLDER: Awake and alert, pleasantly confused Ext: pulse 2+, no edema DATA: CBC: Recent Labs 01/24/23216 WBC 14.6* RBC 4.18 HGB 11.3* HCT 35.6 MCV 85.2 RDW 14.7* PLT 292 BMP: Recent Labs 01/24/23216 NA 137 K 4.3 CL 105 CO2 25 BUN 19* CREATININE 0.73 GLUCOSE 116* CALCIUM 8.9 ANIONGAP 8 LIVER PROFILE:No results for input(s): "AST", "ALT", "BILITOT", "ALKPHOS", "PROT" in the last 72 hours. No lab exists for component: LABALBU PT/INR: No results for input(s): "PROTIME", "INR" in the last 72 hours. CARDIAC ENZYMES: Recent Labs 01/24/23216 TROPONINI <0.012 Procalcitonin: No results found for: "PROCAL" Urine Culture: No results found for this or any previous visit. COVID-19 PCR: No results for input(s): "COVID19" in the last 72 hours. I reviewed: [x] laboratory results [x] radiographic results At the time of today's encounter. Pt was advised of the results. Data: (CAT1) Reviewed 3 or more notes from different specialty or health system (each=1). (LOW: 2x CAT1 or independent historian MOD: 3x CAT1 or 1x CAT3 EXTENSIVE: 3x CAT1 and 1x CAT3) Assessment Discussed management with the ED provider and agree with hospitalization. Acute, acute on chronic, unstable/uncontrolled chronic problems/diagnoses: # s/p mechanical fall # Rt proximal femoral neck fracture # Leukocytosis - Ortho consulted in ED - NPO - Pain control - Pt is medically optimized for OR Stable chronic problems affecting care, new non-acute diagnoses: # Hypothyroidism # CVA # Anxiety/Depression - home meds as ordered Plan As a result of the above findings & factors, the following mgmt was pursued: - am labs, replace lytes prn - PT/OT/CM/SW - delirium precautions: increase activity - DVT prophylaxis: enoxaparin and encourage ambulation Anticipated Discharge - Date - TBD - Location - TBD - Pending the following - clinical course Total time spent (which include face to face and non face to face encounters) : 55 minutes. Extended Emergency Contact Information Primary Emergency Contact: Missy Whitfield Mobile Relation: Sibling Secondary Emergency Contact: Yoel Joseph Relation: Other Kizzy Garsia MD Division of Hospitalist Medicine [facility] [employer] Work Phone: 01-24-2023 History and physical note Images from the original note were not included. Attending History and Physical Admit Date: 01/24/2023 PCP: Morris Carr CHIEF COMPLAINT: Chief Complaint Patient presents with Hip Pain Pt came in via [facility] or a hip fracture. Pt fell yesterday morning and had an xray done that showed a r hip fracture. HISTORY OF PRESENT ILLNESS: Claribel is a 67 y.o. female with past medical history below who presented to ED from SNF for further evaluation of Rt hip fracture after a fall. Pt is a poor historian due to underlying dementia, states that she tripped and fell. X-rays showed Rt hip fracture so transferred to ED for further management and evaluation. Denied loss of consciousness, dizziness, chest pain, nausea, vomiting, fever, chills, or abdominal pain. Past Medical History: Past Medical History: Diagnosis Date Anxiety Depression Fractures 03/05/2018 left proximal humerus Past Surgical History: Past Surgical History: Procedure Laterality Date OTHER SURGICAL HISTORY LLE surgery Social History: Social History Socioeconomic History Marital status: Spouse name: Not on file Number of children: Not on file Years of education: Not on file Highest education level: Not on file Occupational History Not on file Tobacco Use Smoking status: Never Smokeless tobacco: Never Substance and Sexual Activity Alcohol use: Yes Drug use: No Sexual activity: Not on file Other Topics Concern Not on file Social History Narrative Not on file Social Determinants of Health Financial Resource Strain: Not on file Food Insecurity: Not on file Transportation Needs: Not on file Physical Activity: Not on file Stress: Not on file Social Connections: Not on file Intimate Partner Violence: Not on file Housing Stability: Not on file Family History: Family History Problem Relation Name Age of Onset Diabetes type II Sister Medications Prior to Admission: No current facility-administered medications on file prior to encounter. Current Outpatient Medications on File Prior to Encounter Medication Sig Dispense Refill atorvastatin (Lipitor) 20 MG tablet Take 20 mg by mouth in the morning. Allergies: No Known Allergies REVIEW OF SYSTEMS: As per HPI Vitals: BP 110/50 (BP Location: Left arm) Pulse 82 Temp 36.5 C (97.7 F) Resp 16 SpO2 96% BMI Classification: Pulse Ox: SpO2 Av.3 % Min: 88 % Max: 96 % Supplemental O2: O2 Flow Rate (L/min): 2 L/min PHYSICAL EXAM: Physical Exam HEENT: PERRLA, EOMI, no pallor Neck: supple, nontender Chest: BLAE+, diminished CVS: S1+, S2+, no m/r/g Abdomen: soft, nondistended, nontender, BS+ POLYSTYRENE BEAD MOLDER: Awake and alert, pleasantly confused Ext: pulse 2+, no edema DATA: CBC: Recent Labs 01/24/23216 WBC 14.6* RBC 4.18 HGB 11.3* HCT 35.6 MCV 85.2 RDW 14.7* PLT 292 BMP: Recent Labs 01/24/23216 NA 137 K 4.3 CL 105 CO2 25 BUN 19* CREATININE 0.73 GLUCOSE 116* CALCIUM 8.9 ANIONGAP 8 LIVER PROFILE:No results for input(s): "AST", "ALT", "BILITOT", "ALKPHOS", "PROT" in the last 72 hours. No lab exists for component: LABALBU PT/INR: No results for input(s): "PROTIME", "INR" in the last 72 hours. CARDIAC ENZYMES: Recent Labs 01/24/23216 TROPONINI <0.012 Procalcitonin: No results found for: "PROCAL" Urine Culture: No results found for this or any previous visit. COVID-19 PCR: No results for input(s): "COVID19" in the last 72 hours. I reviewed: [x] laboratory results [x] radiographic results At the time of today's encounter. Pt was advised of the results. Data: (CAT1) Reviewed 3 or more notes from different specialty or health system (each=1). (LOW: 2x CAT1 or independent historian MOD: 3x CAT1 or 1x CAT3 EXTENSIVE: 3x CAT1 and 1x CAT3) Assessment Discussed management with the ED provider and agree with hospitalization. Acute, acute on chronic, unstable/uncontrolled chronic problems/diagnoses: # s/p mechanical fall # Rt proximal femoral neck fracture # Leukocytosis - Ortho consulted in ED - NPO - Pain control - Pt is medically optimized for OR Stable chronic problems affecting care, new non-acute diagnoses: # Hypothyroidism # CVA # Anxiety/Depression - home meds as ordered Plan As a result of the above findings & factors, the following mgmt was pursued: - am labs, replace lytes prn - PT/OT/CM/SW - delirium precautions: increase activity - DVT prophylaxis: enoxaparin and encourage ambulation Anticipated Discharge - Date - TBD - Location - TBD - Pending the following - clinical course Total time spent (which include face to face and non face to face encounters) : 55 minutes. Extended Emergency Contact Information Primary Emergency Contact: Missy Whitfield Mobile Relation: Sibling Secondary Emergency Contact: Yoel Joseph Relation: Other Kizzy Garsia MD Division of Hospitalist Medicine [facility] documented in this encounter [facility] 01-24-2023 Emergency department Note Bed: 33 Expected date: 01/24/23 Expected time: Means of arrival: Comments: [facility] Karen Chavis RN 01/24/23 0048 [facility] 01-24-2023 Physician Emergency department Note [facility] ED EMERGENCY DEPARTMENT ENCOUNTER Pt Name: Claribel Stoll Birthdate 1955 Date of evaluation: 01/24/2023 Provider: Dell Burden MD CHIEF COMPLAINT Chief Complaint Patient presents with Hip Pain Pt came in via [facility] or a hip fracture. Pt fell yesterday morning and had an xray done that showed a r hip fracture. HISTORY OF PRESENT ILLNESS (Location/Symptom, Timing/Onset,Context/Setting, Quality, Duration, Modifying Factors, Severity) Note limiting factors. Claribel Stoll is a 67 y.o. female who presents to the emergency department patient from group home. Apparently she fell yesterday and x-ray showed right hip fracture. Brought in via ambulance due to hip fracture. Patient does have a history of dementia. Unclear if she hit her head or not. She does appear to have right-sided facial droop and she cannot give history as to whether this is chronic or not. She does follow commands. She reports pain in the right hip but no chest pain shortness breath fevers chills cough cold congestion. Patient reportedly fell yesterday. HPI Historian is the patient Nurse's notes for past medical history, surgical history, social history were reviewed. Medications and allergies reviewed. PAST MEDICAL HISTORY Past Medical History: Diagnosis Date Anxiety Depression Fractures 03/05/2018 left proximal humerus SURGICALHISTORY Past Surgical History: Procedure Laterality Date OTHER SURGICAL HISTORY LLE surgery CURRENT MEDICATIONS Previous Medications ATORVASTATIN (LIPITOR) 20 MG TABLET Take 20 mg by mouth in the morning. Patient has no known allergies. FAMILY HISTORY Family History Problem Relation Name Age of Onset Diabetes type II Sister SOCIAL HISTORY Social History Socioeconomic History Marital status: Tobacco Use Smoking status: Never Smokeless tobacco: Never Substance and Sexual Activity Alcohol use: Yes Drug use: No SCREENINGS PHYSICAL EXAM (up to 7 for level 4, 8 or more for level 5) @EDTRIAGEVSS@ Appropriate PPE including n 95, gown, gloves, goggles where worn when appropriate with this patient. Physical Exam Vital signs reviewed general: Alert and oriented 1, appears to be baseline head: Atraumatic eyes: Equal round reactive to light and accommodating, pupils are equal, round and reactive to light and accommodation oropharynx: Clear and well hydrated neck: Supple, no midline cervical tenderness heart: Regular rate and rhythm, no murmurs lungs: Clear to auscultation bilaterally abdomen: Soft nontender, positive bowel sounds, no peritoneal findings. Extremities: No pain in the bilateral upper extremities or left lower extremity but does have pain with any attempt to move the right leg and shortening the right leg. No knee pain or ankle pain. Equal pulses. Normal capillary refill. Skin: No rash or lesions -to the exposed skin neurologically: Alert and oriented 1. Patient appears to be having a high riding right eyebrow and facial drooping on the right it is unclear if this is new or chronic I was unable to find any documentation of it in her records. No focal neurologic deficit otherwise. Sensations intact. She does follow commands. Strength appears to be equal limited the right leg secondary to pain. Did not test gait. We are confirming with the group home if she has had right-sided facial drooping in the past. 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 Do not believe this is new therefore. DIAGNOSTIC RESULTS RADIOLOGY: Interpretation per the Radiologist below, if availableat the time of this note: XR chest 1 view Final Result No acute consolidative process. Report Dictated on Electronically Signed By: Marin Mack DR Electronically Signed Date/Time: 01/24/2023 3:[address] head wo IV contrast Final Result No acute intracranial hemorrhage or territorial infarct. Similar appearance of chronic ischemic findings. Report Dictated on Electronically Signed By: Marin Mack DR Electronically Signed Date/Time: 01/24/2023 2:09 AM EST XR hip right 2 or 3 views Final Result Mildly displaced right proximal femoral neck fracture. Report Dictated on Electronically Signed By: Marin Mack DR Electronically Signed Date/Time: 01/24/2023 1:44 AM EST ED BEDSIDE ULTRASOUND: Performed by ED Physician - none LABS: Labs Reviewed BASIC METABOLIC PANEL - Abnormal Result Value SODIUM 137 POTASSIUM 4.3 CHLORIDE 105 CARBON DIOXIDE 25 UREA NITROGEN 19 (*) CREATININE 0.73 GLUCOSE 116 (*) CALCIUM 8.9 ANION GAP 8 eGFR 89.7 CBC WITH AUTO DIFFERENTIAL - Abnormal Auto WBC 14.6 (*) RBC 4.18 Hemoglobin 11.3 (*) Hematocrit 35.6 MCV 85.2 MCH 27.0 MCHC 31.7 (*) RDW 14.7 (*) Platelets 292 MPV 8.3 nRBC 0.0 Neutrophils Relative 79.9 Lymphocytes Relative 11.6 (*) Monocytes Relative 6.6 Eosinophils Relative 1.5 Basophils Relative 0.4 Neutrophils Absolute 11.7 (*) Lymphocytes Absolute 1.7 Monocytes Absolute 1.0 (*) Eosinophils Absolute 0.2 Basophils Absolute 0.1 SARS-COV-2, FLU A/B, AND RSV COMBO - Normal SARS-CoV-2 Not Detected Respiratory Syncytial Virus Not Detected Influenza A Not Detected Influenza B Not Detected Narrative: Methodology: real-time, RT-PCR The SARS-CoV-2, Flu A/B, and RSV Combo assay is intended for in vitro diagnostic use under the FDA Emergency Use Authorization (EUA). This test has not been FDA cleared or approved. In compliance with this authorization, please visit www.fda.gov/media/332858/download or www.fda.gov/media/168577/download to access the applicable information sheets. TROPONIN I - Normal TROPONIN I <0.012 Narrative: Patients with high levels of Biotin oral intake (ie >5 mg/day) may have falsely decreased Troponin levels. All other labs were within normal range or not returned as of thisdictation. EMERGENCYDEPARTMENT COURSE and DIFFERENTIAL DIAGNOSIS/MDM: Vitals: Vitals: 01/24/23 0053 01/24/2321001/24/2321501/24/23217 BP: 97/55 110/50 BP Location: Left arm Pulse: 82 Resp: 16 16 Temp: SpO2: (!) 88% 96% 96% Medical Decision Making Problems Addressed: Closed fracture of right hip, initial encounter (HCC): complicated acute illness or injury Hypoxia: complicated acute illness or injury Amount and/or Complexity of Data Reviewed Labs: ordered. Radiology: ordered. ECG/medicine tests: ordered. Risk Decision regarding hospitalization. EMERGENCY DEPARTMENT COURSE and DIFFERENTIAL DIAGNOSIS/MDM: Vitals: Vitals: 01/24/23 0053 01/24/2321001/24/2321501/24/23217 BP: 97/55 110/50 BP Location: Left arm Pulse: 82 Resp: 16 16 Temp: SpO2: (!) 88% 96% 96% The patient presented with a chief complaint of fall. The differential diagnosis associated with this patient's presentation includes hip fracture, hip contusion, closed head injury electrolyte disturbance. Our workup consisted of ordering/reviewing CT of the head, x-ray of the right hip, EKG blood work. EKG shows no signs of ischemia. COVID influenza negative. Troponin negative. 14,000 white blood cell count. BUN 19 glucose 116. Patient did have drop in saturations to 88%. She fell yesterday. Likely has some atelectasis but on 2 L and saturations, up to 9899%. Initially had a low blood pressure but recheck is 110/50. Gave her 500 saline bolus as I do believe component of dehydration is possible. I do not believe it is PE. She is not septic. I do not believe she had acute stroke. Patient has acute right hip fracture that requires admission. I spoke with Dr. Woodward. He agrees to admission. Patient last had surgery on her left hip at [facility]. Will place consultation to orthopedics [facility]. Chest x-ray per my interpretation no signs of pneumonia. CT of the head no acute process. My suspicion for PE is low I do not believe this is active ACS. This time no signs of pneumonia based on chest x-ray. She has no fever. Diagnoses as of 01/24/23 0346 Closed fracture of right hip, initial encounter ([facility]) Hypoxia Diagnostics considered but not indicated based on history, physical, testing: CT of the neck however not clinically indicated. External records reviewed: No significant records in [facility]. Care Everywhere does reveal closed left hip fracture. This was in 01/27/2022 Reviewed group home records she has a history of dementia she has history of behavioral disturbance mood disturbance anxiety. History of difficulty swallowing. Peripheral vascular disease anxiety depression schizoaffective disorder hyperlipidemia facial weakness from prior CVA. Given these findings would support that her facial weakness on the right is chronic and not new. Radiologic diagnostics interpreted by me: film images such as CT, Ultrasound and MRI are read by the radiologist. Plain radiographic images are visualized and preliminarily interpreted by the emergency physician with the below findings: Xray(s) x-ray per my interpretation shows right femoral neck hip fracture. CT scan(s) CT of the head no acute process. EKG per my interpretation sinus rhythm no acute ST elevation or ischemic findings. Chest x-ray per my interpretation no acute process. Discussions with other clinicians: Admitting team Dr. Ramirez hospitalist for admit Chronic conditions impacting care: Dementia per EMS report Social determinants of health affecting care: Lives in extended-care facility Shared decision making: Patient agrees to treatment plan ED Medications managed: Medications - No data to display Prescription drugs considered: PROCEDURES: Unless otherwise noted below, none Procedures IMPRESSION 1. Closed fracture of right hip, initial encounter ([facility]) 2. Hypoxia DISPOSITION/PLAN DISPOSITION Admit 01/24/2023 03:12:34 AM PATIENT REFERRED TO: No follow-up provider specified. DISCHARGE MEDICATIONS: New Prescriptions No medications on file @[facility]([id number]:LAST:1)@ (Comment: Please notethis report has been produced using speech recognition software and may contain errors related to that system including errors in grammar, punctuation, and spelling, as well as words and phrases that may be inappropriate.If there is any questions or concerns please feel free to contact the dictating provider for clarification). Dell Burden MD (electronically signed) Attending Emergency Physician Dell Burden MD 01/24/23332 Dell Burden MD 01/24/23345 [facility] 01-27-2022 Note HNO ID: [id number] Author: Yasmany Roman MD Service: ? Author Type: Physician Type: Progress Notes Filed: 01/27/2022 10:58 AM Note Text: 01/27/2022 RE: Claribel Stoll DATE OF : 1955 Vitals: Resp 18 Ht 5' 5" (1.65m) Wt 150 lb (68.0kg) BMI 24.96 kg/(m2). FOLLOW UP VISIT: Post insertion hemiarthroplasty left hip HPI: She is not having significant discomfort in her left hip. She has been working on ambulation at the group home. REVIEW OF SYSTEMS: MUSCULOSKELETAL: Negative for joint pain or swelling, back pain or muscle pain History reviewed. No pertinent past medical history. History reviewed. No pertinent surgical history. Social History Tobacco Use Smoking status: Former Substance Use Topics Alcohol use: Yes Comment: occasional Drug use: Never ALLERGIES No Known Allergies Current Medications: Current Outpatient Medications Medication Sig Dispense Refill calcium polycarbophil (FIBERCON) 625 mg tablet Take 625 mg by mouth daily at bedtime. citalopram (CELEXA) 20 mg tablet Take 20 mg by mouth once daily. melatonin 1 mg tablet Take 5 mg by mouth. gabapentin (NEURONTIN) 100 mg capsule Take 200 mg by mouth three times daily. buPROPion XL (WELLBUTRIN XL) 150 mg 24 hr tablet Take 150 mg by mouth daily at bedtime. prazosin HCl (PRAZOSIN ORAL) Take 1 mg by mouth daily at bedtime. LORazepam (ATIVAN) 0.5 mg Take 0.5 mg by mouth three times daily. haloperidol (HALDOL) 0.5 mg tablet Take 0.5 mg by mouth four times daily. 0600/1200/1800/0000 atorvastatin (LIPITOR) 20 mg tablet Take 20 mg by mouth once daily. d-mannose (AZO D-MANNOSE) 500 mg cap Take 500 mg by mouth twice daily. adqaor-zlovkpgv-fljredm (CREON 6) 6,000-19,000 -30,000 unit delayed release capsule Take by mouth twice daily with meals. Please administer with snacks- and with snacks 3xday PRN acetaminophen 325 mg cap Take 1,000 mg by mouth as needed. ondansetron (ZOFRAN) 4 mg tablet Take 4 mg by mouth every 6 hours as needed for nausea/vomiting. guaiFENesin (MUCINEX) 600 mg 12 hr tablet Take 600 mg by mouth twice daily as needed for cold/allergy symptoms. rivaroxaban (XARELTO ORAL) Take 15 mg by mouth DAILY AT 6 PM. levothyroxine (SYNTHROID) 50 mcg tablet Take 1 tablet by mouth DAILY (6 AM). 30 tablet 0 No current facility-administered medications for this visit. PHYSICAL EXAMINATION: There is good range of motion left hip without pain. Incision noted to be healing nicely. RADIOGRAPHIC EXAMINATION: See note IMPRESSION: Subcapital fracture left hip with hemiarthroplasty PLAN: She should continue with progression of weightbearing ambulation as tolerated. I do not need to see any additional x-rays. Return as needed. Yasmany Roman MD [facility] 01-27-2022 History of Present illness Narrative 01/27/2022 RE: Claribel Commmisty DATE OF : 1955 Vitals: Resp 18 Ht 5' 5" (1.65m) Wt 150 lb (68.0kg) BMI 24.96 kg/(m^2). FOLLOW UP VISIT: Post insertion hemiarthroplasty left hip HPI: She is not having significant discomfort in her left hip. She has been working on ambulation at the group home. REVIEW OF SYSTEMS: MUSCULOSKELETAL: Negative for joint pain or swelling, back pain or muscle pain History reviewed. No pertinent past medical history. History reviewed. No pertinent surgical history. Social History Tobacco Use Smoking status: Former Substance Use Topics Alcohol use: Yes Comment: occasional Drug use: Never ALLERGIES No Known Allergies Current Medications: Current Outpatient Medications Medication Sig Dispense Refill calcium polycarbophil (FIBERCON) 625 mg tablet Take 625 mg by mouth daily at bedtime. citalopram (CELEXA) 20 mg tablet Take 20 mg by mouth once daily. melatonin 1 mg tablet Take 5 mg by mouth. gabapentin (NEURONTIN) 100 mg capsule Take 200 mg by mouth three times daily. buPROPion XL (WELLBUTRIN XL) 150 mg 24 hr tablet Take 150 mg by mouth daily at bedtime. prazosin HCl (PRAZOSIN ORAL) Take 1 mg by mouth daily at bedtime. LORazepam (ATIVAN) 0.5 mg Take 0.5 mg by mouth three times daily. haloperidol (HALDOL) 0.5 mg tablet Take 0.5 mg by mouth four times daily. 0600/1200/1800/0000 atorvastatin (LIPITOR) 20 mg tablet Take 20 mg by mouth once daily. d-mannose (AZO D-MANNOSE) 500 mg cap Take 500 mg by mouth twice daily. thbsux-gzmyuxml-flagveq (CREON 6) 6,000-19,000 -30,000 unit delayed release capsule Take by mouth twice daily with meals. Please administer with snacks- and with snacks 3xday PRN acetaminophen 325 mg cap Take 1,000 mg by mouth as needed. ondansetron (ZOFRAN) 4 mg tablet Take 4 mg by mouth every 6 hours as needed for nausea/vomiting. guaiFENesin (MUCINEX) 600 mg 12 hr tablet Take 600 mg by mouth twice daily as needed for cold/allergy symptoms. rivaroxaban (XARELTO ORAL) Take 15 mg by mouth DAILY AT 6 PM. levothyroxine (SYNTHROID) 50 mcg tablet Take 1 tablet by mouth DAILY (6 AM). 30 tablet 0 No current facility-administered medications for this visit. PHYSICAL EXAMINATION: There is good range of motion left hip without pain. Incision noted to be healing nicely. RADIOGRAPHIC EXAMINATION: See note IMPRESSION: Subcapital fracture left hip with hemiarthroplasty PLAN: She should continue with progression of weightbearing ambulation as tolerated. I do not need to see any additional x-rays. Return as needed. Yasmany Roman MD documented in this encounter [facility] 12-24-2021 Note HNO ID: [id number] Author: Elisabeth Rivers RN Service: Care Management Author Type: Registered Nurse Type: Care Mgt Progress Note Filed: 12/24/2021 3:36 PM Note Text: CARE MANAGEMENT PROGRESS NOTE SERVICE DATE: 12/24/2021 SERVICE TIME: 1533 LOS: 11 days Per [facility] precert still pending with [facility]. Received phone call from case management director Sasha with [facility]. Per Sasha Valor is primary insurance and will not need precert to return to [facility]. Received confirmation from [facility] patient can return today. I left voice messages with her family Garry and Missy she will return to [facility] today at 1930. Copy of the [facility] insurance card faxed to me and I sent it to the admitting department. SIGNATURE: Elisabeth Rivers RN PATIENT NAME: Claribel Commmisty DATE: December 24, 2021 TIME: 3:31 PM PAGER/CONTACT #: [phone] [facility] 12-24-2021 Note HNO ID: [id number] Author: Kevyn Hobbs MD Service: Orthopaedic Surgery Author Type: Resident Type: Progress Notes Filed: 12/24/2021 6:25 AM Note Text: ORTHOPAEDIC SURGERY DAILY PROGRESS NOTE ASSESSMENT: 66 yo F POD #10 s/p L hemiarthroplasty PLAN: -Admitted to ortho -Pain control -Weight Bearing As Tolerated LLE -Dressing management - aquacel x 10 days, ok to remove on 12/24 or on discharge -regular diet -PT/OT -DVT ppx: 325 mg aspirin bid -D/C planning: SNF, [facility] when precert [facility] INTERVAL HPI: No acute events overnight. Pain controlled. Denies fevers and chills. Denies chest pain and shortness of breath. OBJECTIVE: BP 103/61 Pulse 72 Temp 36.3 ?C (97.3 ?F) (Oral) Resp 16 Ht 165.1 cm (5' 5") Wt 68 kg (150 lb) SpO2 95% BMI 24.96 kg/m? Exam: General: NAD, AOx0 Left Lower Extremity: Dressing is clean,dry and intact. There is minimal tenderness to palpation about the incision site. Compartments of the thigh and leg are soft and compressible. The patient tolerates passive stretch of the digits. +DF/PF/EHL. SILT botello/sa/sp/dp/t. BCR of the digits of the foot. Recent Labs 12/24/21 0508 12/23/21 0318 12/22/21 0358 12/21/21 0912 CREAT 0.85 0.91 0.87 0.79 BUN 7 14 15 11 NA 139 138 136 135* K 3.8 4.2 4.2 4.0 CHLOR 102 102 99 97 CO2 27 26 26 26 ANION 10 10 11 12 GLUC 96 108* 100* 108* CA 9.2 9.0 9.2 9.2 WBC 13.06* 14.28* 13.80* 11.27* HB 9.8* 9.1* 9.9* 9.9* HCT 31.7* 29.0* 31.7* 31.9* PLT 557* 517* 521* 531* COAGS: APTT 21.4 12/14/2021 INR 1.0 12/14/2021 SED RATE/CRP: Sed RateArcenio 36 05/12/2018 CRP 6.85 05/12/2018 Kevyn Hobbs MD December 24, 2021 6:09 AM [facility] 12-23-2021 Note HNO ID: [id number] Author: Elisabeth Rivers RN Service: Care Management Author Type: Registered Nurse Type: Care Mgt Progress Note Filed: 12/23/2021 3:00 PM Note Text: CARE MANAGEMENT PROGRESS NOTE SERVICE DATE: 12/23/2021 SERVICE TIME: 1458 LOS: 10 days Per message from [facility] they are still waiting on precert for admission. Phone call from Jesus with the [facility] department and they are reaching out to [place] regarding authorization. SIGNATURE: Elisabeth Rivers RN PATIENT NAME: Claribel Commings DATE: December 23, 2021 TIME: 2:58 PM PAGER/CONTACT #: [phone] [facility] 12-23-2021 Note HNO ID: [id number] Author: Elisabeth Rivers RN Service: Care Management Author Type: Registered Nurse Type: Care Mgt Progress Note Filed: 12/23/2021 9:53 AM Note Text: CARE MANAGEMENT PROGRESS NOTE SERVICE DATE: 12/23/2021 SERVICE TIME: 952 LOS: 10 days Updated progress notes and therapy notes sent to [facility] SIGNATURE: Elisabeth Rivers RN PATIENT NAME: Claribel Commings DATE: December 23, 2021 TIME: 9:52 AM PAGER/CONTACT #: [phone] [facility] 12-23-2021 Note HNO ID: [id number] Author: Fatimah Simon MD Service: Orthopaedic Surgery Author Type: Resident Type: Progress Notes Filed: 12/23/2021 6:01 AM Note Text: ORTHOPAEDIC SURGERY DAILY PROGRESS NOTE ASSESSMENT: 66 yo F POD #9 s/p L hemiarthroplasty PLAN: -Admitted to ortho -Pain control -Weight Bearing As Tolerated LLE -Dressing management - aquacel x 10 days, ok to remove on 12/24 or on discharge -regular diet -PT/OT -DVT ppx: 325 mg aspirin bid -D/C planning: SNF, dc when precert completed, pending at [facility], appreciate care management assistance INTERVAL HPI: No acute events overnight. Pain controlled. Denies fevers and chills. Denies chest pain and shortness of breath. OBJECTIVE: BP (!) 98/48 Pulse 78 Temp 37.6 ?C (99.7 ?F) (Axillary) Resp 16 Ht 165.1 cm (5' 5") Wt 68 kg (150 lb) SpO2 94% BMI 24.96 kg/m? Exam: General: NAD, AOx0 Left Lower Extremity: Dressing clean,dry and intact. There is minimal tenderness to palpation about the incision site. Compartments of the thigh and leg are soft and compressible. The patient tolerates passive stretch of the digits. +DF/PF/EHL. SILT botello/sa/sp/dp/t. BCR of the digits of the foot. Recent Labs 12/23/21 0318 12/22/21 0358 12/21/21 0912 CREAT 0.91 0.87 0.79 BUN 14 15 11 NA 138 136 135* K 4.2 4.2 4.0 CHLOR 102 99 97 CO2 26 26 26 ANION 10 11 12 GLUC 108* 100* 108* CA 9.0 9.2 9.2 WBC 14.28* 13.80* 11.27* HB 9.1* 9.9* 9.9* HCT 29.0* 31.7* 31.9* PLT 517* 521* 531* COAGS: APTT 21.4 12/14/2021 INR 1.0 12/14/2021 SED RATE/CRP: Sed Rate, Chipren 36 05/12/2018 CRP 6.85 05/12/2018 Fatimah Simon MD Orthopaedic Surgery 12/23/2021 6:01 AM [facility] 12-22-2021 Note HNO ID: [id number] Author: Gagan Villasenor MD Service: Orthopaedic Surgery Author Type: Resident Type: Progress Notes Filed: 12/22/2021 7:12 AM Note Text: ORTHOPAEDIC SURGERY DAILY PROGRESS NOTE ASSESSMENT: 66 yo F POD #8 s/p L hemiarthroplasty PLAN: -Admitted to ortho -Pain control -Weight Bearing As Tolerated LLE -Dressing management - aquacel x 7 days, ok to remove on 12/22 -regular diet -PT/OT -DVT ppx: 325 mg aspirin bid -D/C planning: SNF, dc when precert completed INTERVAL HPI: No acute events overnight. Pain controlled. Denies fevers and chills. Denies chest pain and shortness of breath. OBJECTIVE: BP 98/58 Pulse 78 Temp 37.1 ?C (98.8 ?F) (Oral) Resp 18 Ht 165.1 cm (5' 5") Wt 68 kg (150 lb) SpO2 98% BMI 24.96 kg/m? Exam: General: NAD, AOx3 Left Lower Extremity: Dressing clean,dry and intact. There is minimal tenderness to palpation about the incision site. Compartments of the thigh and leg are soft and compressible. The patient tolerates passive stretch of the digits. +DF/PF/EHL. SILT botello/sa/sp/dp/t. BCR of the digits of the foot. Recent Labs 12/22/21 0358 12/21/21 0912 12/20/21 0403 CREAT 0.87 0.79 0.75 BUN 15 11 12 NA 136 135* 139 K 4.2 4.0 4.2 CHLOR 99 97 100 CO2 26 26 27 ANION 11 12 12 GLUC 100* 108* 105* CA 9.2 9.2 9.0 WBC 13.80* 11.27* 10.69 HB 9.9* 9.9* 8.5* HCT 31.7* 31.9* 27.1* PLT 521* 531* 419* COAGS: APTT 21.4 12/14/2021 INR 1.0 12/14/2021 SED RATE/CRP: Sed Rate, Peterergren 36 05/12/2018 CRP 6.85 05/12/2018 Gagan Villasenor MD Orthopaedic Surgery 12/22/2021 6:01 AM [facility] 12-21-2021 Note HNO ID: [id number] Author: Shira Kimbrough RN Service: Care Management Author Type: Registered Nurse Type: Care Mgt Progress Note Filed: 12/21/2021 2:57 PM Note Text: CARE MANAGEMENT PROGRESS NOTE SERVICE DATE: 12/21/2021 SERVICE TIME: 2:44 PM LOS: 8 days Chart reviewed. Precert appears to still be pending. This CM [facility], but have not gotten a response. Since patient is LTC there, unsure why she would need to remain hospitalized while a skilled precert is pending. Asked [facility] to assist by investigating, but [facility] [employer] is closed today and the only info she could find in the portal is patient's LTC auth valid 05/24/21-05/24/22. SIGNATURE: Shira Kimbrough RN PATIENT NAME: Claribel Commings DATE: December 21, 2021 TIME: 2:44 PM PAGER/CONTACT #: [phone] [facility] 12-21-2021 Note HNO ID: [id number] Author: Erin Bullard MD Service: Orthopaedic Surgery Author Type: Resident Type: Progress Notes Filed: 12/21/2021 7:32 AM Note Text: ORTHOPAEDIC SURGERY DAILY PROGRESS NOTE ASSESSMENT: 66 yo F POD #7 s/p L hemiarthroplasty PLAN: -Admitted to ortho -Pain control -Weight Bearing As Tolerated LLE -Dressing management - aquacel x 7 days, ok to remove on 12/22 -regular diet -PT/OT -DVT ppx: 325 mg aspirin bid -D/C planning: SNF, dc when precert completed INTERVAL HPI: No acute events overnight noted. Denies fevers and chills. Denies chest pain and shortness of breath. OBJECTIVE: BP 95/51 Pulse 80 Temp 37 ?C (98.6 ?F) (Oral) Resp 16 Ht 165.1 cm (5' 5") Wt 68 kg (150 lb) SpO2 98% BMI 24.96 kg/m? Exam: General: NAD, AOx0 Left Lower Extremity: Dressing clean,dry and intact. There is minimal tenderness to palpation about the incision site. Compartments of the thigh and leg are soft and compressible. The patient tolerates passive stretch of the digits. +DF/PF/EHL. SILT botello/sa/sp/dp/t. BCR of the digits of the foot. Recent Labs 12/20/21 0403 12/19/21 0307 CREAT 0.75 0.73 BUN 12 9 NA 139 141 K 4.2 3.9 CHLOR 100 102 CO2 27 30 ANION 12 9 GLUC 105* 101* CA 9.0 9.1 WBC 10.69 10.15 HB 8.5* 8.0* HCT 27.1* 25.8* PLT 419* 375 COAGS: APTT 21.4 12/14/2021 INR 1.0 12/14/2021 SED RATE/CRP: Sed Rate Chipren 36 05/12/2018 CRP 6.85 05/12/2018 Imaging: No new orthopedic imaging Isaias Bullard MD Orthopaedic Surgery 12/21/2021 [facility] 12-21-2021 Note HNO ID: [id number] Author: Alex Royal RN Service: Nursing Author Type: Registered Nurse Type: Nursing Progress Note Filed: 12/21/2021 5:16 AM Note Text: Pt refuses 0400 vital signs and blood draw. Dr. Villasenor notified. I will continue to monitor. [facility] 12-20-2021 Note HNO ID: [id number] Author: Elisabeth Rivers RN Service: Care Management Author Type: Registered Nurse Type: Care Mgt Progress Note Filed: 12/20/2021 3:34 PM Note Text: CARE MANAGEMENT PROGRESS NOTE SERVICE DATE: 12/20/2021 SERVICE TIME: 1532 LOS: 7 days Received phone calls from both brother garry and sister Missy. Updated them [facility] Confirmed with Garry plan is to return to [facility]. SIGNATURE: Elisabeth Rivers RN PATIENT NAME: Claribel Commings DATE: December 20, 2021 TIME: 3:32 PM PAGER/CONTACT #: [phone] [facility] 12-20-2021 Note HNO ID: [id number] Author: Elisabeth Rivers RN Service: Care Management Author Type: Registered Nurse Type: Care Mgt Progress Note Filed: 12/20/2021 2:53 PM Note Text: CARE MANAGEMENT PROGRESS NOTE SERVICE DATE: 12/20/2021 SERVICE TIME: 1451 LOS: 7 days Per [facility] precert still pending. Unable to reach brother Garry regarding discharge plans. Left voice message for her sister Missy at [phone]. Patient is resident of [facility]. SIGNATURE: Elisabeth Rivers RN PATIENT NAME: Claribel Commings DATE: December 20, 2021 TIME: 2:51 PM PAGER/CONTACT #: [phone] [facility] 12-20-2021 Note HNO ID: [id number] Author: Fatimah Simon MD Service: Orthopaedic Surgery Author Type: Resident Type: Progress Notes Filed: 12/20/2021 6:34 AM Note Text: ORTHOPAEDIC SURGERY DAILY PROGRESS NOTE ASSESSMENT: 66 yo F POD 6 s/p L hemiarthroplasty PLAN: -Admitted to ortho -Pain control -Weight Bearing As Tolerated LLE -Dressing management - aquacel x 7 days, ok to remove on 12/22 -regular diet -PT/OT -DVT ppx: 325 mg aspirin bid -Shelley: avoid, may straight cath -Post op Abx - ancef x 2 doses, complete -D/C planning: SNF, dc when precert completed INTERVAL HPI: No acute events overnight noted. Denies fevers and chills. Denies chest pain and shortness of breath. OBJECTIVE: BP 110/56 Pulse 81 Temp 36.9 ?C (98.4 ?F) (Axillary) Resp 16 Ht 165.1 cm (5' 5") Wt 68 kg (150 lb) SpO2 95% BMI 24.96 kg/m? Exam: General: NAD, AOx0 Left Lower Extremity: Dressing clean,dry and intact. There is minimal tenderness to palpation about the incision site. Compartments of the thigh and leg are soft and compressible. The patient tolerates passive stretch of the digits. +DF/PF/EHL. SILT botello/sa/sp/dp/t. BCR of the digits of the foot. Recent Labs 12/20/21 0403 12/19/21 0307 12/18/21 0310 CREAT 0.75 0.73 0.66 BUN 12 9 8 NA 139 141 139 K 4.2 3.9 4.0 CHLOR 100 102 101 CO2 27 30 27 ANION 12 9 11 GLUC 105* 101* 111* CA 9.0 9.1 8.8 WBC 10.69 10.15 8.80 HB 8.5* 8.0* 8.6* HCT 27.1* 25.8* 27.1* PLT 419* 375 327 COAGS: APTT 21.4 12/14/2021 INR 1.0 12/14/2021 SED RATE/CRP: Sed Rate, Westergren 36 05/12/2018 CRP 6.85 05/12/2018 Imaging: No new orthopedic imaging Fatimah Simon MD Orthopaedic Surgery 12/20/2021 5:31 AM [facility] 12-19-2021 Note HNO ID: [id number] Author: Elisabeth Rivers RN Service: Care Management Author Type: Registered Nurse Type: Care Mgt Progress Note Filed: 12/19/2021 4:15 PM Note Text: CARE MANAGEMENT PROGRESS NOTE SERVICE DATE: 12/19/2021 SERVICE TIME: 1615 LOS: 6 days Precert still pending for [facility] SIGNATURE: Elisabeth Rivers RN PATIENT NAME: Claribel Stoll DATE: December 19, 2021 TIME: 4:15 PM PAGER/CONTACT #: [phone] [facility] 12-19-2021 Note HNO ID: [id number] Author: Reinier Cohen DO Service: Hospital Medicine Author Type: Physician Type: Progress Notes Filed: 12/19/2021 1:10 PM Note Text: Documentation Query Based on your medical judgment of the clinical indicators outlined below, please clarify the condition: (Please type X next to your response and sign) Dr. Garcia Clinical Indicators 12/13 hemoglobin 12.3 12/14 Operative report Subcapital fracture, left hip- Procedure: Hemiarthroplasty, left hip. 12/15 Sound progress note hgb 10.1 Expected postop anemia-Management per primary team" 12/18 Ortho progress note " HB 8.6- 8.2- 9.0" Please clarify type of anemia X Expected post operative acute Blood Loss anemia Clinically unable to determine Other, please specify In responding to this request, please exercise your independent professional judgment. Thank you, Jen Osorio, [facility] team [phone] [facility] 12-19-2021 Note HNO ID: [id number] Author: Fatimah Simon MD Service: Orthopaedic Surgery Author Type: Resident Type: Progress Notes Filed: 12/19/2021 6:08 AM Note Text: ORTHOPAEDIC SURGERY DAILY PROGRESS NOTE ASSESSMENT: 66 yo F POD 5 s/p L hemiarthroplasty PLAN: -Admitted to ortho -Pain control -Weight Bearing As Tolerated LLE -Dressing management - aquacel x 7 days, ok to remove on 12/22 -regular diet -PT/OT -DVT ppx: 325 mg aspirin bid -Shelley: avoid, may straight cath -Post op Abx - ancef x 2 doses, complete -D/C planning: SNF, dc for this am planned INTERVAL HPI: No acute events overnight noted. Denies fevers and chills. Denies chest pain and shortness of breath. OBJECTIVE: BP 100/53 Pulse 77 Temp 36.8 ?C (98.2 ?F) (Axillary) Resp 16 Ht 165.1 cm (5' 5") Wt 68 kg (150 lb) SpO2 93% BMI 24.96 kg/m? Exam: General: NAD, AOx0 Left Lower Extremity: Dressing clean,dry and intact. There is minimal tenderness to palpation about the incision site. Compartments of the thigh and leg are soft and compressible. The patient tolerates passive stretch of the digits. +DF/PF/EHL. SILT botello/sa/sp/dp/t. BCR of the digits of the foot. Recent Labs 12/19/21 0307 12/18/21 0310 12/17/21 0158 CREAT 0.73 0.66 0.62 BUN 9 8 9 NA 141 139 136 K 3.9 4.0 3.9 CHLOR 102 101 102 CO2 30 27 26 ANION 9 11 8* GLUC 101* 111* 122* CA 9.1 8.8 8.3* WBC 10.15 8.80 11.32* HB 8.0* 8.6* 8.2* HCT 25.8* 27.1* 25.9* PLT 375 327 259 COAGS: APTT 21.4 12/14/2021 INR 1.0 12/14/2021 SED RATE/CRP: Sed Rate, Chipren 36 05/12/2018 CRP 6.85 05/12/2018 Imaging: No new orthopedic imaging Fatimah Simon MD Orthopaedic Surgery 12/19/2021 5:31 AM [facility] 12-18-2021 Note HNO ID: [id number] Author: Elisabeth Rivers RN Service: Care Management Author Type: Registered Nurse Type: Care Mgt Progress Note Filed: 12/18/2021 4:01 PM Note Text: CARE MANAGEMENT PROGRESS NOTE SERVICE DATE: 12/18/2021 SERVICE TIME: 1601 LOS: 5 days [facility]. SIGNATURE: Elisabeth Rivers RN PATIENT NAME: Claribel Stoll DATE: December 18, 2021 TIME: 4:01 PM PAGER/CONTACT #: [phone] [facility] 12-18-2021 Note HNO ID: [id number] Author: Fatimah Simon MD Service: Orthopaedic Surgery Author Type: Resident Type: Progress Notes Filed: 12/18/2021 6:01 AM Note Text: ORTHOPAEDIC SURGERY DAILY PROGRESS NOTE ASSESSMENT: 66 yo F POD 4 s/p L hemiarthroplasty PLAN: -Admitted to ortho -Pain control -Weight Bearing As Tolerated LLE -Dressing management - aquacel x 7 days, patient pulled off yesterday with new one applied -regular diet -PT/OT -DVT ppx: 325 mg aspirin bid -Shelley: avoid, may straight cath -Post op Abx - ancef x 2 doses, complete -D/C planning: SNF planning, appreciate care management assistance INTERVAL HPI: No acute events overnight noted. Denies fevers and chills. Denies chest pain and shortness of breath. OBJECTIVE: BP (!) 96/42 Pulse 85 Temp 36.8 ?C (98.2 ?F) (Oral) Resp 18 Ht 165.1 cm (5' 5") Wt 68 kg (150 lb) SpO2 94% BMI 24.96 kg/m? Exam: General: NAD, AOx0 Left Lower Extremity: Dressing clean,dry and intact. There is minimal tenderness to palpation about the incision site. Compartments of the thigh and leg are soft and compressible. The patient tolerates passive stretch of the digits. +DF/PF/EHL. SILT botello/sa/sp/dp/t. BCR of the digits of the foot. Recent Labs 12/18/21 0310 12/17/21 0158 12/16/21 0237 CREAT 0.66 0.62 0.80 BUN 8 9 11 NA 139 136 137 K 4.0 3.9 3.8 CHLOR 101 102 102 CO2 27 26 27 ANION 11 8* 8* GLUC 111* 122* 106* CA 8.8 8.3* 8.4* WBC 8.80 11.32* 10.97 HB 8.6* 8.2* 9.0* HCT 27.1* 25.9* 28.9* PLT 327 259 264 COAGS: APTT 21.4 12/14/2021 INR 1.0 12/14/2021 SED RATE/CRP: Sed Rate, Westergren 36 05/12/2018 CRP 6.85 05/12/2018 Imaging: No new orthopedic imaging Fatimah Simon MD Orthopaedic Surgery 12/18/2021 5:31 AM [facility] 12-17-2021 Note HNO ID: [id number] Author: Corry Lewis RN Service: Nursing Author Type: Registered Nurse Type: Progress Notes Filed: 12/17/2021 4:37 PM Note Text: Ortho residents notified patient pulled off left hip silver mepalex dressing and one steri strip, RN replaced with large aquacel, no signs of dehiscence. [facility] 12-17-2021 Note HNO ID: [id number] Author: Elisabeth Rivers RN Service: Care Management Author Type: Registered Nurse Type: Care Mgt Progress Note Filed: 12/17/2021 10:20 AM Note Text: CARE MANAGEMENT PROGRESS NOTE SERVICE DATE: 12/17/2021 SERVICE TIME: 1015 LOS: 4 days Chart reviewed. Patient is from [facility]. Return referral sent. Left voice message for brother Garry to confirm discharge plans. Patient unable to answer questions due to mental status. SIGNATURE: Elisabeth Rivers RN PATIENT NAME: Claribel Stoll DATE: December 17, 2021 TIME: 10:15 AM PAGER/CONTACT #: [phone] [facility] 12-17-2021 Note HNO ID: [id number] Author: Fatimah Simon MD Service: Orthopaedic Surgery Author Type: Resident Type: Progress Notes Filed: 12/17/2021 5:44 AM Note Text: ORTHOPAEDIC SURGERY DAILY PROGRESS NOTE ASSESSMENT: 66 yo F POD 3 s/p L hemiarthroplasty PLAN: -Admitted to ortho -Pain control -Weight Bearing As Tolerated LLE -Dressing management - aquacel x 7 days -regular diet -PT/OT -DVT ppx: 325 mg aspirin bid -Shelley: avoid, may straight cath -Post op Abx - ancef x 2 doses, complete -D/C planning: SNF planning, appreciate care management assistance INTERVAL HPI: No acute events overnight noted. Denies fevers and chills. Denies chest pain and shortness of breath. OBJECTIVE: BP 104/51 Pulse 81 Temp 36.7 ?C (98.1 ?F) (Axillary) Resp 16 Ht 165.1 cm (5' 5") Wt 68 kg (150 lb) SpO2 93% BMI 24.96 kg/m? Exam: General: NAD, AOx0 Left Lower Extremity: Dressing clean,dry and intact. There is minimal tenderness to palpation about the incision site. Compartments of the thigh and leg are soft and compressible. The patient tolerates passive stretch of the digits. +DF/PF/EHL. SILT botello/sa/sp/dp/t. BCR of the digits of the foot. Recent Labs 12/17/21 0158 12/16/21 0237 12/15/21 0305 CREAT 0.62 0.80 0.80 BUN 9 11 12 NA 136 137 135* K 3.9 3.8 4.8 CHLOR 102 102 100 CO2 26 27 21* ANION 8* 8* 14 GLUC 122* 106* 122* CA 8.3* 8.4* 8.1* WBC 11.32* 10.97 13.09* HB 8.2* 9.0* 10.1* HCT 25.9* 28.9* 32.9* PLT 259 264 308 COAGS: APTT 21.4 12/14/2021 INR 1.0 12/14/2021 SED RATE/CRP: Sed Rate, Chipren 36 05/12/2018 CRP 6.85 05/12/2018 Imaging: No new orthopedic imaging Fatimah Simon MD Orthopaedic Surgery 12/17/2021 5:31 AM [facility] 12-16-2021 Note HNO ID: [id number] Author: Fatimah Simon MD Service: Orthopaedic Surgery Author Type: Resident Type: Progress Notes Filed: 12/16/2021 6:08 AM Note Text: ORTHOPAEDIC SURGERY DAILY PROGRESS NOTE ASSESSMENT: 66 yo F POD 2 s/p L hemiarthroplasty PLAN: -Admitted to ortho -Pain control -Weight Bearing As Tolerated LLE -Dressing management - aquacel x 7 days -regular diet -PT/OT -DVT ppx: 325 mg aspirin bid -Shelley: avoid, may straight cath -Post op Abx - ancef x 2 doses, complete -D/C planning: home vs snf, pending PT/OT INTERVAL HPI: Had a fall yesterday while attempting to get up, evaluated by medicine without any complaints of pain or injuries. This morning states that she has no pain. Denies fevers and chills. Denies chest pain and shortness of breath. OBJECTIVE: BP 108/64 Pulse 85 Temp 36.7 ?C (98.1 ?F) (Oral) Resp 18 Ht 165.1 cm (5' 5") Wt 68 kg (150 lb) SpO2 95% BMI 24.96 kg/m? Exam: General: NAD, AOx0 Left Lower Extremity: Dressing clean,dry and intact. There is minimal tenderness to palpation about the incision site. Compartments of the thigh and leg are soft and compressible. The patient tolerates passive stretch of the digits. +DF/PF/EHL. SILT botello/sa/sp/dp/t. BCR of the digits of the foot. Recent Labs 12/16/21 0237 12/15/21 0305 12/14/2122512/13/211918 CREAT 0.80 0.80 0.66 0.75 BUN 11 12 11 10 NA 137 135* 137 139 K 3.8 4.8 -- 3.9 CHLOR 102 100 102 104 CO2 27 21* 24 25 ANION 8* 14 11 10 GLUC 106* 122* 105* 98 CA 8.4* 8.1* 8.6 8.9 MG -- -- 2.1 -- WBC 10.97 13.09* 11.47* 12.97* HB 9.0* 10.1* 12.1 12.3 HCT 28.9* 32.9* 37.4 38.4 PLT 264 308 324 298 COAGS: APTT 21.4 12/14/2021 INR 1.0 12/14/2021 SED RATE/CRP: Sed Rate, Chipren 36 05/12/2018 CRP 6.85 05/12/2018 Imaging: No new orthopedic imaging Fatimah Simon MD Orthopaedic Surgery 12/16/2021 5:11 AM [facility] 12-15-2021 Note HNO ID: [id number] Author: Taniya Jenkins RN Service: Nursing Author Type: Registered Nurse Type: Progress Notes Filed: 12/15/2021 11:25 AM Note Text: Summary: RESTRAINT NON-VIOLENT Nursing Progress: Topic: RESTRAINT NON-VIOLENT PATIENT NAME: Claribel Stoll PATIENT LOCATION: [place] [id number]-* The patient demonstrates Attempting to Remove Medical Devices Vital to Medical Stability, Confusion, Lack of Understanding/Ability to Comply with Safety Directions, Impulsive Behavior, Inability to be Redirected, Inability to Retain Information Regarding Safety Directions as evidenced by the following behaviors removing Iv access, removing oxygen which pose an imminent danger to self or others. The following interventions were attempted but were not effective in protecting the patient's safety: Alarms, Ambulation/Progressive Activity, Bed in Low/Locked Position, Call Light Within Reach, Modify Environment, Modify Equipment, Frequent Observation, Move Patient Closer to Nurses Station, Pain/Discomfort Relief, Re-Orientation Methods, Toileting Next, a comprehensive assessment was performed and warranted placing the patient in Soft Bilateral Wrists, the least restrictive restraint needed to protect the patient's safety. Ongoing safety assessments and evaluation for earliest removal of restraints will be performed. DATE: December 15, 2021 TIME: 11:24 AM Taniya Jenkins RN [facility] 12-15-2021 Note HNO ID: [id number] Author: Reinier Cohen DO Service: Hospital Medicine Author Type: Physician Type: Progress Notes Filed: 12/15/2021 1:17 PM Note Text: DEPARTMENT OF HOSPITAL MEDICINE PROGRESS NOTE SERVICE DATE: 12/15/2021 SERVICE TIME: 12:55 PM Hospital Medicine/Primary Attending: Reinier Cohen DO NIGHT AND WEEKEND COVERAGE: After 7pm please page [phone] SUBJECTIVE: Notified by nursing staff patient had a fall. Nursing asked to notify primary team. Came to see patient who was in bed had no complaints or signs of injury. Nursing reports the patient was in restraints and hunger legs off the side of the bed did not fall or hit anything. OBJECTIVE: PHYSICAL EXAM: BP 132/58 Pulse 108 Temp (Src) 99 (Oral) Resp 16 Ht 5' 5" (1.65m) Wt 150 lb (68.0kg) SpO2 93% BMI 24.96 kg/(m2). O2 Therapy: Room Air, Liters: 2 General - Alert, NAD, Calm, in restraints answering questions appropriately, confused ENT- no icterus, MMM CV - RRR S1 S2, No M/R/G RESP - CTA B/L No wheezes, ronchi, rales ABD - soft, NT, ND, NM +BS Neuro- Conversant, follows commands, moves all ext, gross sensation intact Ext: Left lower extremity postoperative changes without signs of any injury, in restraints Skin: warm, no rash MEDICATIONS: Current Facility-Administered Medications Medication Dose Route Frequency sodium chloride 0.9 % (flush) 3-5 mL (BD POSIFLUSH) 3-5 mL INTRAVENOUS q 12 H NaCl 0.9% iv flush bag 20 mL INTRAVENOUS PRN lactated ringers iv infusion 75 mL/hr INTRAVENOUS CONTINUOUS morphine 2 mg injection 2 mg INTRAVENOUS q 2 H PRN ondansetron (PF) 4 mg injection (ZOFRAN) 4 mg INTRAVENOUS q 6 H PRN melatonin 3 mg tab(s) 3 mg ORAL AT BEDTIME PRN aspirin 325 mg tab(s) 325 mg ORAL BID acetaminophen 650 mg tab(s) (TYLENOL) 650 mg ORAL q 6 H oxyCODONE IR 5 mg tab(s) (ROXICODONE) 5 mg ORAL q 6 H PRN DATA: Diagnostic tests reviewed for today's visit: CBC: Recent Labs 12/15/21 030 WBC 13.09* RBC 3.44* HB 10.1* HCT 32.9* PLT 308 MCV 95.6 MCH 29.4 MPV 9.9 Coags: No results for input(s): PT, INR, APTT in the last 24 hours. BMP: Recent Labs 12/15/21 0305 NA 135* K 4.8 CHLOR 100 CO2 21* BUN 12 CREAT 0.80 GLUC 122* CMP: Recent Labs 12/15/21 0305 NA 135* K 4.8 CHLOR 100 CO2 21* BUN 12 CREAT 0.80 GLUC 122* CA 8.1* ANION 14 Cardiac Enzymes: No results for input(s): CK, MB, CKMB, TROPT in the last 24 hours. Liver Function, Amylase, Lipase: No results for input(s): TPROT, ALB, ALT, AST, ALKPHOS, TBILI, AMYLASE, LIPASE, LACTATE in the last 24 hours. MG/PHOS: No results for input(s): MG, P in the last 24 hours. Renal Panel: Recent Labs 12/15/21 0305 CREAT 0.80 BUN 12 GLUC 122* CA 8.1* CHLOR 100 K 4.8 CO2 21* NA 135* Heme: No results for input(s): RETICP, ABSRETIC, LD, PORTIA, FE, TIBC, TRANSFERSAT in the last 24 hours. No results found for: UALBCR Assessment/Plan This is a 66 year old female with: #/spod#1 Closed displaced fracture of left femoral neck -- Surgical management as per Orthopedics -- encourage incentive spirometry -- Pain management and PT/OT as per Orthopedics #Hypothyroidism -- resume Synthroid postop #Dementia -- monitor for postop delirium #Expected postop anemia -Management per primary team #Fall risk w/ near fall- Patient without any signs of acute injury, was in restraints and not fully followed better had anything, denies any extremity pain and no signs of injury at restraint sites moving arms without difficulty or pain -fall precautions #Leukocytosis-postoperative -monitor Sound physicians will sign off please notify/reconsult for any clinical changes or concerns VTE Prophylaxis: pe primary team Disposition: Home Plan of care discussed with: Provider, RN, Patient. Problem List Closed displaced fracture of left femoral neck (HCC) POA: Yes This note was generated using [employer] voice dictation. All reasonable efforts were made to correct dictation errors. SIGNATURE: Reinier Cohen DO PATIENT NAME: Claribel Commmisty DATE: December 15, 2021 TIME: 12:55 PM PAGER/CONTACT #: My Pager [facility] 12-15-2021 Note HNO ID: [id number] Author: Fatimah Simon MD Service: Orthopaedic Surgery Author Type: Resident Type: Progress Notes Filed: 12/15/2021 7:28 AM Note Text: ORTHOPAEDIC SURGERY DAILY PROGRESS NOTE ASSESSMENT: 66 yo F POD 1 s/p L hemiarthroplasty PLAN: -Admitted to ortho -Pain control -Weight Bearing As Tolerated LLE -Dressing management - aquacel x 7 days -regular diet -PT/OT -DVT ppx: 325 mg aspirin bid -Shelley: avoid, may straight cath -Post op Abx - ancef x 2 doses, complete -D/C planning: home vs snf, pending PT/OT INTERVAL HPI: No acute events overnight. Pain controlled. Denies fevers and chills. Denies chest pain and shortness of breath. OBJECTIVE: BP 106/61 Pulse 85 Temp 36.1 ?C (97 ?F) (Axillary) Resp 16 Ht 165.1 cm (5' 5") Wt 68 kg (150 lb) SpO2 97% BMI 24.96 kg/m? Exam: General: NAD, AOx0 Left Lower Extremity: Dressing with strike through, changed this morning to aquacel, incision well appearing. There is minimal tenderness to palpation about the incision site. Compartments of the thigh and leg are soft and compressible. The patient tolerates passive stretch of the digits. +DF/PF/EHL. SILT botello/sa/sp/dp/t. BCR of the digits of the foot. Recent Labs 12/15/21 0305 12/14/21 0226 12/13/21 1919 CREAT 0.80 0.66 0.75 BUN 12 11 10 NA 135* 137 139 K 4.8 -- 3.9 CHLOR 100 102 104 CO2 21* 24 25 ANION 14 11 10 GLUC 122* 105* 98 CA 8.1* 8.6 8.9 MG -- 2.1 -- WBC 13.09* 11.47* 12.97* HB 10.1* 12.1 12.3 HCT 32.9* 37.4 38.4 PLT 308 324 298 COAGS: APTT 21.4 12/14/2021 INR 1.0 12/14/2021 SED RATE/CRP: Sed Rate, Peterergren 36 05/12/2018 CRP 6.85 05/12/2018 Imaging: Post operative xray demonstrating interval placement of orthopedic hardware in good position Fatimah Simon MD Orthopaedic Surgery 12/15/2021 5:11 AM [facility] 12-14-2021 Note HNO ID: [id number] Author: Naveen Cameron APRN.[email or web address] Service: Anesthesiology Author Type: Nurse Physician Liaison Type: Anesthesia Procedure Notes Filed: 12/14/2021 1:37 PM Note Text: ANESTHESIOLOGY PROCEDURE NOTE Airway General Information Procedure Start Time/Medication Administration: 12/14/2021 1:27 PM Patient location during procedure: OR Timeout Performed Pre-procedure: timeout performed Consent Obtained: Yes Patient identity confirmed: arm band, patient and family Staffing DRILL DOCTOR: Naveen Cameron APRN.CRNA Indications and Patient Condition Indications for airway management: anesthesia Preoxygenated: yes anesthesia circuit Method: sleep Cricoid Pressure: No Manual In-Line Stabilization: No Difficult Mask: No Final Airway Details Final airway type: endotracheal airway Final Endotracheal Airway: ETT Cuffed: yes Successful intubation technique: video laryngoscopy Devices used: [employer] Endotracheal tube insertion site: oral Blade: Kimberlyn Blade size: #3 ETT size (mm): 7.0 Measured from: lips Measurement (cm): 23 Placement verified by: chest auscultation and capnometry Cormack-Lehane Classification: grade I - full view of glottis Number of attempts at approach: 1 Failed airway: no Unrecognized esophageal intubation: no Airway not difficult SIGNATURE: Naveen Cameron APRN.CRNA PATIENT NAME: Claribel Stoll DATE: December 14, 2021 TIME: 1:37 PM CSN: [id number] [facility] 12-14-2021 Note HNO ID: [id number] Author: Naveen Cameron APRN.DRILL DOCTOR Service: Anesthesiology Author Type: Nurse Physician Liaison Type: Anesthesia Procedure Notes Filed: 12/14/2021 12:59 PM Note Text: ANESTHESIOLOGY PROCEDURE NOTE PIV General Information Procedure Start Time/Medication Administration: 12/14/2021 12:50 PM Patient Location: OR Staffing DRILL DOCTOR: Naveen Cameron APRN.CRNA Preparation Sterility Preparation: hand hygiene performed prior to procedure, surgical cap used, mask used, skin prep agent completely dried prior to procedure Sterility Technique Not Completely Performed Due to Extreme Emergency: No Site Prep: Chloraprep Procedure Details Indication: need for IV access Needle Size/Type: 20 gauge angiocath Orientation: Right Location: Wrist Imaging Guidance Used: No SIGNATURE: Naveen Cameron APRN.CRNA [facility] DATE: December 14, 2021 TIME: 12:58 PM CSN: [id number] [facility] 12-14-2021 Note HNO ID: [id number] Author: Naveen Cameron APRN.CRNA Service: Anesthesiology Author Type: Nurse Physician Liaison Type: Anesthesia Procedure Notes Filed: 12/14/2021 12:58 PM Note Text: ANESTHESIOLOGY PROCEDURE NOTE Airway General Information Procedure Start Time/Medication Administration: 12/14/2021 12:36 PM Patient location during procedure: OR Timeout Performed Pre-procedure: timeout performed Consent Obtained: Yes Patient identity confirmed: arm band, family and patient Staffing DRILL DOCTOR: Naveen Cameron APRN.DRILL DOCTOR Indications and Patient Condition Indications for airway management: anesthesia Preoxygenated: yes Method: awake Cricoid Pressure: No Manual In-Line Stabilization: No Difficult Mask: No Airway Accessory: LMA Final Airway Details Final airway type: supraglottic airway Number of attempts at approach: 1 Final Supraglottic Airway: i-gel Size 4 Seal Adequate: yes Failed airway: no Unrecognized esophageal intubation: no Airway not difficult SIGNATURE: Naveen Cameron APRN.CRNA PATIENT NAME: [facility] DATE: December 14, 2021 TIME: 12:58 PM CSN: [id number] [facility] 12-14-2021 Note HNO ID: [id number] Author: Fatimah Simon MD Service: Orthopaedic Surgery Author Type: Resident Type: Progress Notes Filed: 12/14/2021 7:27 AM Note Text: ORTHOPAEDIC SURGERY DAILY PROGRESS NOTE ASSESSMENT: 66 yo F with L femoral neck fracture PLAN: -Admitted to orthopaedics -Non-weightbearing of the Left lower extremity -Pain control -Ice to the left hip as needed -NPO/IVF for OR today -Pre-operative labs ordered -Shelley catheter -DVT PPX: SCDs to the bilateral lower extremities; will hold DVT chemicalPPX at this time for OR on 12/14 -Medicine consult for medical management -Consent for surgery to be obtained by brother and placed in chart -OR today -Dispo pending above INTERVAL HPI: No acute events overnight. Pain controlled. Denies fevers and chills. Denies chest pain and shortness of breath. OBJECTIVE: BP 126/71 Pulse 83 Temp 37 ?C (98.6 ?F) (Oral) Resp 16 Ht 165.1 cm (5' 5") Wt 68 kg (150 lb) SpO2 96% BMI 24.96 kg/m? Exam: General: NAD, AOx1 Left Lower Extremity: The extremity is shortened and externally rotated. There are no gross deformities. There are no superficial abrasions, lacerations or open wounds present. There is no erythema, ecchymosis or significant swelling of the lower extremity. The patient is tender to palpation along the lateral aspect of the proximal thigh. Compartments of the thigh and leg are soft and compressible. The patient tolerates passive stretch of the digits. Formal hip range of motion was not assessed due to known femoral neck fracture. +DF/PF/EHL motor function. SILT botello/sa/sp/dp/t. BCR to the digits of the foot Recent Labs 12/14/2122512/13/211918 CREAT 0.66 0.75 BUN 11 10 NA 137 139 K -- 3.9 CHLOR 102 104 CO2 24 25 ANION 11 10 GLUC 105* 98 CA 8.6 8.9 MG 2.1 -- WBC 11.47* 12.97* HB 12.1 12.3 HCT 37.4 38.4 PLT 324 298 COAGS: APTT 21.4 12/14/2021 INR 1.0 12/14/2021 SED RATE/CRP: Sed Rate, Westergren 36 05/12/2018 CRP 6.85 05/12/2018 Imaging: XR of the left femur demonstrating no other fractures other than noted at hip Fatimah Simon MD Orthopaedic Surgery 12/14/2021 5:37 AM [facility] 12-13-2021 History of Past i llness Narrative Problem Noted Date Resolved Date Closed displaced fracture of left femoral neck 1 12/17/2021 Hyponatremia 05/10/2018 05/12/2018 Last Assessment & Plan: Assessment: -Hypochloremic hyponatremia likely from volume depletion PLAN: -Continue IVF resuscitation -F/u Na on morning BMP -If no improvement consider further urine studies Urinary tract infection 05/10/2018 03/27/20 19 Last Assessment & Plan: Assessment: -The patient was complaining of abdominal pain and dysuria. -UA showed evidence of infection -Urine culture showed Escherichia coli -Started on empiric Vanc/zosyn in ED -Switch to Keflex, completed her course PLAN: -Today the last dose of Keflex. documented as of this encounter (statuses as of 01/27/2022) [facility] noteNo assessment information availableWTriHealth [facility] Work Phone: Evaluation note* Diagnosis Closed subcapital fracture of left femur with routine healing, subsequent encounter- Primary documented in this encounter [facility] note* Diagnosis Closed fracture of right hip, initial encounter (HCC)- Primary Closed fracture of right hip, initial encounter (HCC) Hypoxia Hypoxemia Left arm pain Pain in soft tissues of limb Anxiety Anxiety state, unspecified Dementia, unspecified dementia severity, unspecified dementia type, unspecified whether behavioral, psychotic, or mood disturbance or anxiety (HCC) Dementia, unspecified dementia severity, unspecified dementia type, unspecified whether behavioral, psychotic, or mood disturbance or anxiety (HCC) documented in this encounter [facility] for referral (narrative)* Diagnostic Procedure Only (Routine) - Pending Review Specialty Diagnoses / Procedures Referred By Becky dudley Referred To Contact XR IMAGING Diagnoses Closed subcapital fracture of left femur with routine healing, subsequent encounter Procedures XR HIP 2V AP/LAT LEFT (AK,FL,ME) RADEX HIP UNILATERAL WITH PELVIS 2-3 VIEWS Yasmany Roman MD [address] [address] Xr Imaging Referral ID Status Reason Start Date Expiration Date Visits Requested Visits Authorized [id number] Pending Review Auto-Generat ed Referral 01/27/2022 02/26/[address] 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 Pain is controlled and she will follow up with Ortho as an outpt. Should continue to wear sling and be NWB. Low BP in the ED but improved on the floors. No lightheadedness or dizziness with standing. She states that her BP usually runs low. Internal Medicine: Med Team Discharge Summary and Transition Note Claribel Stoll : 1955 ADMIT DATE: 03/06/2018 DISCHARGE DATE: 03/06/2018 PRIMARY CARE PHYSICIAN: No primary care provider on file. VISIT STATUS: Observation CODE STATUS: Full Code DISCHARGE DIAGNOSES: Active Problems: Closed fracture of left proximal humerus Left arm p (more content not included)... 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 Chief Complaint DETENTION LABWORK DETENTION PATIENT LABWORK Chief Complaint DETENTION LABWORK DETENTION PATIENT LABWORK DETENTION LAB WORK Chief Complaint DETENTION LABWORK LABWORK Chief Complaint DETENTION LABWORK DETENTION LAB WORK Chief Complaint DETENTION LABWORK DETENTION LAB WORK LABWORK Chief Complaint DETENTION LABWORK DETENTION LAB WORK LABWORK LABWORK LABWORK Chief Complaint DETENTION LABWORK DETENTION LAB WORK LABWORK LABWORK LABWORK DETENTION LAB WORK LABWORK Chief Complaint LABWORK LABWORK LABWORK DETENTION LAB WORK LABWORK DETENTION LAB WORK LABWORK Chief Complaint LABWORK LABWORK LABWORK DETENTION LAB WORK LABWORK DETENTION LAB WORK LABWORK DETENTION LAB WORK Chief Complaint LABWORK DETENTION LAB WORK LABWORK DETENTION LAB WORK LABWORK DETENTION LAB WORK LABWORK Additional Source Comments INFORMATION SOURCE (unrecogn ized section and content) DATE CREATED AUTHOR 04/14/2018 [facility] DATE CREATED AUTHOR AUTHOR'S ORGANIZ ATION [facility] DATE CREATED AUTHOR AUTHOR'S ORGANIZ ATION 04/24/2022 [facility] DATE CREATED AUTHOR AUTHOR'S ORGANIZ ATION 01/28/2023 [facility] DATE CREATED AUTHOR AUTHOR'S ORGANIZ ATION 09/27/2024 [facility] Goals (unrecognized section and content) Goals may be documented in a n alternate sectionGoals may be documented in an alternate sectionGoals may be documented in an alternate sectionGoals may be documented in an alternate sectionGoals may be documented in an alternate sectionGoals may be documented in an alternate sectionGoals may be documented in an alternate sectionGoals may be documented in an alternate sectionGoals may be documented in an alternate sectionGoals may be documented in an alternate sectionGoals may be documented in an alternate sectionGoals may be documented in an alternate section Source Comments (unrecognize d section and content) In the event this informatio n is protected by the Federal Confidentiality of Alcohol and Drug Abuse Patient Records regulations: The Federal rules restrict any use of the information to criminally investigate or prosecute any alcohol or drug abuse patient.[facility] Reason for Visit (unrecogniz ed section and content) Reason Comments Post Op Reason Comments Hip Pain Pt [facility] a hip fracture. Pt fell yesterday morning and had an xray done that showed a r hip fracture. Specialty Diagnoses / Procedures Referred By Becky t Referred To Contact Diagnoses Closed fracture of right hip, initial encounter ([facility]) Procedures S72.001A Kizzy Garsia MD [address] [place] [address] [facility] Emergency Dept [address] [place] [address] Referral ID Status Reason Start Date Expiration Date Visits Re quested Visits Authorized [id number] 1 1 Care Teams (unrecognized sec tion and content) Team Status: Inactive Member Role Status Dates Morris BEAL Attending Provider Active Team Status: Inactive Member Role Status Dates Morris BEAL Attending Provider, Referring Provid er Active Team Status: Active Member Role Status Dates Morris BEAL Attending Provider Active Chemists Relationship Specialty Start Date End Date Kelly Lang RN Specialty Form Grader Orthopedics 12/17/21 Chemists Relationship Specialty Start Date End Date Morris Carr [address] [place] [address] PCP - General Family Medicine 01/24/23 Scheduled Active and Recently Administ ered Medications (unrecognized section and content) Medication Order 01/24/2023 01/25/2023 01/26/2023 aspirin EC tablet 81 mg 81 mg, Oral, Daily, First dose on 01/24/23 at 0900, Do not crush, chew, or split. 0900 (Not Given - Provider: Yumi Ruth RN - Reason: NPO) 0734 (MAR Hold - Provider: Automatic Transfer Provider - Reason: Patient not available)0900 (Dose Auto Held - Provider: Automatic Transfer Provider)1112 (MAR Unhold - Provider: Automatic Transfer Provider) 0829 (Given - Provider: Yumi Feng RN) atorvastatin (Lipitor) tablet 20 mg 20 mg, Oral, Daily, First dose on 01/24/23 at 0800 0800 (Not Given - Provider: Yumi Ruth RN - Reason: NPO) 0734 (APR Hold - Provider: Automatic Transfer Provider - Reason: Patient not available)0800 (Dose Auto Held - Provider: Automatic Transfer Provider)1112 (APR Unhold - Provider: Automatic Transfer Provider) 0829 (Given - Provider: Yumi Feng RN) buPROPion XL (Wellbutrin XL) 24 hr tablet 150 mg 150 mg, Oral, Daily, First dose on 01/24/23 at 0900, Do not crush, chew, or split. 0900 (Not Given - Provider: Yumi Ruth RN - Reason: NPO) 0734 (APR Hold - Provider: Automatic Transfer Provider - Reason: Patient not available)0900 (Dose Auto Held - Provider: Automatic Transfer Provider)1112 (APR Unhold - Provider: Automatic Transfer Provider) 0830 (Given - Provider: Yumi Feng RN) ceFAZolin in dextrose 4% (Ancef) IVPB 2,000 mg (COMPLETED) 2,000 mg, IntraVENous, Administer over 30 Minutes, Every 8 hours, First dose on 01/25/23 at 1600, For 24 hours, Phase II/On Unit, premix bag, Suspected Indication (Select all that apply): Surgical Prophylaxis 1456 (New Bag - Provider: Gertrude Camargo RN)1526 (Stopped - Provider: Gertrude Camargo RN)1600 (Canceled Entry - Provider: Gertrude Camargo RN) 0056 (New Bag - Provider: Carlos Kaur LPN)0126 (Stopped - Provider: Carlos Kaur LPN)0829 (New Bag - Provider: Yumi Feng RN)0859 (Stopped - Provider: Yumi Feng RN) citalopram (CeleXA) tablet 20 mg 20 mg, Oral, Daily, First dose on 01/24/23 at 0900 0900 (Not Given - Provider: Yumi Ruth RN - Reason: NPO) 0734 (APR Hold - Provider: Automatic Transfer Provider - Reason: Patient not available)0900 (Dose Auto Held - Provider: Automatic Transfer Provider)1112 (APR Unhold - Provider: Automatic Transfer Provider) 0829 (Given - Provider: Yumi Feng RN) enoxaparin (Lovenox) syringe 40 mg 40 mg, SubCUTAneous, Every 24 hours scheduled (Daily), First dose on 01/26/23 at 0945, Indication of Use: Prophylaxis-DVT/PE, Indications: Prophylaxis of Venous Thromboembolism 1123 (Given - Provider: Yumi Feng RN) haloperidol (Haldol) tablet 1 mg 1 mg, Oral, 3 times daily, First dose on 01/24/23 at 0900 0900 (Not Given - Provider: Yumi Ruth RN - Reason: NPO)1531 (Given - Provider: Gertrude Camargo RN)2112 (Given - Provider: Carlos Kaur LPN) 0734 (MAR Hold - Provider: Automatic Transfer Provider - Reason: Patient not available)0900 (Dose Auto Held - Provider: Automatic Transfer Provider)1112 (MAR Unhold - Provider: Automatic Transfer Provider)1328 (Given - Provider: Gertrude Camargo, FRANCOIS)1937 (Given - Provider: Carlos Kaur LPN) 0829 (Given - Provider: Yumi Feng RN)1409 (Given - Provider: Yumi Feng RN) Influenza Vac A&B SA Adj quadrivalent (Fluad) vaccine 0.5 mL 0.5 mL, IntraMUSCular, Once, On Thu01/25/23 at 0900, For 1 dose 0734 (MAR Hold - Provider: Automatic Transfer Provider - Reason: Patient not available)0900 (Dose Auto Held - Provider: Automatic Transfer Provider)1112 (MAR Unhold - Provider: Automatic Transfer Provider) levothyroxine (Synthroid, Levoxyl) tablet 50 mcg 50 mcg, Oral, Daily before breakfast, First dose on 01/24/23 at 0700, Tube feeding (TF) interaction, obtain physician order to manage, recommend holding TF for 30 minutes before and after dose. 0700 (Not Given - Provider: Yumi Ruth RN - Reason: NPO) 0600 (Not Given - Provider: Carlos Kaur LPN - Reason: NPO)0734 (MAR Hold - Provider: Automatic Transfer Provider - Reason: Patient not available)1112 (MAR Unhold - Provider: Automatic Transfer Provider) 0616 (Given - Provider: Carlos Kaur LPN) LORazepam (Ativan) tablet 0.5 mg 0.5 mg, Oral, 2 times daily 8&2, First dose (after last modification) on 01/26/23 at 1400 1409 (Given - Provider: Yumi Feng RN) LORazepam (Ativan) tablet 1 mg (CANCELED) 1 mg, Oral, 2 times daily 8&2, First dose on 01/24/23 at 0800 0800 (Not Given - Provider: Yumi Ruth RN - Reason: NPO)1631 (Given - Provider: Gertrude Camargo RN) 0734 (APR Hold - Provider: Automatic Transfer Provider - Reason: Patient not available)0800 (Dose Auto Held - Provider: Automatic Transfer Provider)1112 (APR Unhold - Provider: Automatic Transfer Provider)1328 (Given - Provider: Gertrude Camargo RN) 0829 (Given - Provider: Yumi Fneg RN) morphine injection 2 mg (COMPLETED) 2 mg, IntraVENous, Once, On 01/24/23 at 0405, For 1 dose, If oral and IV narcotics ordered, use oral first and only use IV if oral is ineffective or cannot take oral. Do Not give oral and IV within 1 hour of each other unless specifically ordered. 0434 (Given - Provider: Abimbola Argueta RN) pregabalin (Lyrica) capsule 100 mg 100 mg, Oral, 3 times daily, First dose on 01/24/23 at 0900 0900 (Not Given - Provider: Yumi Ruth RN - Reason: NPO)1531 (Given - Provider: Gertrude Camargo RN)2112 (Given - Provider: Carlos Kaur LPN) 0734 (APR Hold - Provider: Automatic Transfer Provider - Reason: Patient not available)0900 (Dose Auto Held - Provider: Automatic Transfer Provider)1112 (APR Unhold - Provider: Automatic Transfer Provider)1328 (Given - Provider: Gertrude Camargo RN)1938 (Given - Provider: Carlos Kaur LPN) 0829 (Given - Provider: Yumi Feng RN)1409 (Given - Provider: Yumi Feng RN) sodium chloride 0.9 % bolus 500 mL (COMPLETED) 500 mL, IntraVENous, at 500 mL/hr, Administer over 1 Hours, Once, On 01/24/23 at 0350, For 1 dose 0351 (New Bag - Provider: Abimbola Argueta RN)0451 (Stopped - Provider: Abimbola Argueta RN) Continuous Medication Order 01/24/2023 01/25/2023 01/26/2023 sodium chloride 0.9 % infusion (CANCELED) 75 mL/hr, IntraVENous, Continuous, Starting on 01/26/23 at 0515, For 13 hours 0504 (New Bag - Prov ider: Carlos Kaur LPN) PRN Medication Order 01/24/2023 01/25/2023 01/26/2023 acetaminophen (Tylenol) suppository 650 mg(Linked Group 1) 650 mg, Rectal, Every 6 hours PRN, mild pain (1-3), fever, For temp greater than 100.4 F (38 C), Starting on 01/24/23 at 1109, Administer if oral route cannot be used. Maximum dose of acetaminophen is 4000 mg from all sources in 24 hours. 0734 (APR Hold - Provider: Automatic Transfer Provider - Reason: Patient not available)1112 ([facility] Unhold - Provider: Automatic Transfer Provider) acetaminophen (Tylenol) tablet 650 mg(Linked Group 1) 650 mg, Oral, Every 6 hours PRN, mild pain (1-3), fever, For temp greater than 100.4 F (38 C), Starting on 01/24/23 at 1109, Maximum dose of acetaminophen is 4000 mg from all sources in 24 hours. 0734 ([facility] Hold - Provider: Automatic Transfer Provider - Reason: Patient not available)1112 ([facility] Unhold - Provider: Automatic Transfer Provider) melatonin tablet 5 mg 5 mg, Oral, Nightly PRN, sleep, Starting on 01/24/23 at 0517 0734 ([facility] Hold - Provider: Automatic Transfer Provider - Reason: Patient not available)1112 ([facility] Unhold - Provider: Automatic Transfer Provider) naloxone (Narcan) injection 0.4 mg 0.4 mg, IntraVENous, PRN, opioid reversal, Starting on 01/26/23 at 0139, For oversedation/difficult to rouse, pinpoint pupils, RR < 8; notify primary team non acoustic operator if used 0147 (Given - Provid er: Lio Hanna RN) oxyCODONE (Roxicodone) immediate release tablet 5 mg 5 mg, Oral, Every 6 hours PRN, severe pain (7-10), Starting on 01/24/23 at 0600, For 2 doses 0734 (APR Hold - Provider: Automatic Transfer Provider - Reason: Patient not available)1112 (APR Unhold - Provider: Automatic Transfer Provider)1506 (Given - Provider: Gertrude Camargo RN) polyethylene glycol (PEG) 3350 (Miralax) packet 17 g 17 g, Oral, Daily PRN, constipation, Starting on 01/24/23 at 1109, 1st line for treatment of constipation - give scheduled if no bowel movement in past 24 hours. 0734 (APR Hold - Provider: Automatic Transfer Provider - Reason: Patient not available)1112 (APR Unhold - Provider: Automatic Transfer Provider) sodium chloride 0.9 % irrigation solution (CANCELED) As needed, Starting on 01/25/23 at 0829, Intraprocedure 0829 (Given - Provider: Randee Oliver MD) Linked Groups Order Group 1: acetaminophen (Tylenol) tablet 650 mgJump to med 650 mg, Oral, Every 6 hours PRN, mild pain (1-3), fever, For temp greater than 100.4 F (38 C), Starting on 01/24/23 at 1109, Maximum dose of acetaminophen is 4000 mg from all sources in 24 hours. Or acetaminophen (Tylenol) suppository 650 mgJump to med 650 mg, Rectal, Every 6 hours PRN, mild pain (1-3), fever, For temp greater than 100.4 F (38 C), Starting on 01/24/23 at 1109, Administer if oral route cannot be used. Maximum dose of acetaminophen is 4000 mg from all sources in 24 hours. FOR RECORDS PERTAINING TO PATIENTS WHO ARE OR HAVE BEEN ENROLLED IN A CHEMICAL DEPENDENCY/SUBSTANCEABUSE PROGRAM, SOME INFORMATION MAY BE OMITTED. This clinical summary was aggregated from multiple sources. Caution should be exercised in using it in the provision of clinical care. This summary normalizes information from multiple sources, and as a consequence, information in this document may materially change the coding, format and clinical context of patient data. In addition, data may be omitted in some cases. CLINICAL DECISIONS SHOULD BE BASED ON THE PRIMARY CLINICAL RECORDS. [facility]. provides no warranty or guarantee of the accuracy or completeness of information in this document.
[2024-09-29 09:22] LABS: Hematocrit 34.3 % (37-47); Hemoglobin 10.4 g/dL (12.0-15.0); Mean Corp Hgb Conc 30.3 g/dL (32-36); Mean Corpuscular Volume 89.3 fL (81-99); Mean Platelet Vol. 9.9 fl (6.2-12.0); Platelet Count 441 K/mm3 (150-450); RBC Distribution Width CV 14.7 % (11.6-14.6); RBC Distribution Width SD 47.4 fl (35.1-43.9); Red Blood Count 3.84 M/mm3 (4.2-5.4); White Blood Count 11.7 K/mm3 (4.4-11.0)
== END ==
LOC: OLS.ACW400 05:00
PROVIDERS: Visit Provider Family Medicine
DX: M62.81 Muscle weakness (generalized) (principal); Z96.641 Presence of right artificial hip joint
CPT/HCPCS: 36415; 85027

== ENCOUNTER → 2024-10-31 04:00 | Outpatient (REF) | payer MEDICARE, MEDICAID, SELFPAY ==
--- OUTSIDE RECORDS SUMMARY | 2024-10-31 04:32 | XMS RPT_ITS | CCD ---
Author Organization [facility] Care Team Providers Care Mortician Supplies Sales Representative Name Role Phone PROVIDER, UNKNOWN Referring Unavailable No, PCP Primary Care Unavailable Garry Jackson Attending Unavailable PROVIDER, UNKNOWN Referring Unavailable No, PCP Primary Care Unavailable CLAU SANTORO Attending Unavailable CLAU SANTORO Attending Unavailable PROVIDER, UNKNOWN Referring Unavailable Autumn, PCP Primary Care Unavailable ARUN MCLAUGHLIN Admitting [...] mouth three times daily. polyethylene glycol 3350 [id number] mg powder for oral solution (4 sources) [...] Class(es) Dates Sig (Normalized) Sig (Original) amylase 83431 unt / lipase 6000 unt / protease 53664 unt delayed release oral capsule (1 source) [...] Translations: [Chronic obstructive pulmonary disease, unspecified] Onset: 10-01-2024 Chronic Delirium, dementia, and amnestic and other cognitive disorders (9 sources) Dementia; Translations: [Unspecified dementia without behavioral disturbance] Onset: 05-17-2018 05-19-2018 Chronic E Codes: Fall (2 sources) Unspecified fall, subsequent encounter; Translations: [Unspecified fall, subsequent encounter] Onset: 02-26-2024 Episodic External cause codes: Fall (2 sources) Fall on same level, unspecified, initial encounter; Translations: [Fall on same level, unspecified, initial encounter] Onset: 03-06-2018 Fracture of lower limb (2 sources) Unspecified fracture of right femur, subsequent encounter for closed fracture with routine healing; Translations: [Unspecified fracture of right femur, subsequent encounter for closed fracture with routine healing] Onset: 02-26-2024 Episodic Fracture of neck of femur (hip) (4 [...] [Presence of right artificial hip joint] Onset: 02-26-2024 Chronic Other connective tissue disease (2 sources) [...] left arm] Onset: 03-06-2018 01-26-2023 Episodic Other connective tissue disease (2 sources) Muscle weakness (generalized); Translations: [Muscle weakness (generalized)] Onset: 02-26-2024 Episodic Other liver diseases (2 sources) Nonspecific [...] [Nutritional anemia, unspecified] Onset: 05-19-2018 05-19-2018 Episodic Fracture of upper limb (7 sources) [...] initial encounter] Onset: 05-10-2018 05-14-2018 Episodic Other screening for suspected conditions (not mental disorders or infectious disease) (5 sources) Encounter for screening for lipoid disorders; Translations: [Encounter for screening for other disorder] Onset: 03-31-2018 05-19-2018 Episodic Urinary tract infections (1 source) Urinary tract infection, site not specified; Translations: [Urinary tract infection, site not specified] Onset: 02-10-2025 Episodic Results Test Name Value Interpretation Reference Range Facility No Panel InformationOrdered By: Morris Carr on 05-22-2023 Parathyroid Hormone (Intact) 94.2 pg/mL 18.4-80.1 [facility] Serum or plasma cortisol kevan surement (mass/volume)Ordered By: Morris Carr on 05-22-2023 Cortisol [Mass/Vol] 17.00 ug/dL 3.44-22.45 [facility] Comment on above: Adult (AM) 5.27 - 22 .45 ug/dL Adult (PM) 3.44 - 16.76 ug/dLPlease note revised CORTISOL reference range effective 2019. Clostridioides difficile nuc leic acid assay by PCROrdered By: Morris Carr on 05-15-2023 C. difficile DNA JEANA+probe Ql (Unsp spec) [facility] Basophil percentageOrdered B y: Morris Carr on 05-14-2023 Bilirubin [Mass/Vol] 0.20 mg/dL 0.20-1.00 [facility] Comment on above: For patients on eltr ombopag therapy, use of [place] TBIL is not recommended. Chloride [Moles/Vol] 111 mmol/L 98-107 [facility] Glucose [Mass/Vol] 86 mg/dL 74-106 [facility] Hemoglobin (Bld) [Mass/Vol] 10.0 g/dL 12.0-15.0 [facility] Potassium [Moles/Vol] 3.7 mmol/L 3.5-5.[address] [facility] Protein [Mass/Vol] 6.3 g/dL 6.4-8.2 [facility] Sodium [Moles/Vol] 143 mmol/L 136-145 [facility] WBC (Bld) [#/Vol] 10.8 10*3/uL 4.4-11.0 [facility] Determination of erythrocyte mean corpuscular volume (MCV)Ordered By: Morris Carr on 05-14-2023 MCV (RBC) [Entitic vol] 85.1 fL 81-99 [facility] Erythrocyte distribution wid th ratioOrdered By: Morris Carr on 05-14-2023 Erythrocyte distribution width (RBC) [Ratio] 16.7 % 11.6-14.6 [facility] Erythrocyte distribution wid th standard deviationOrdered By: Morris Carr on 05-14-2023 Erythrocyte distribution width (RBC) [Entitic vol] 52.1 fL 35.1-43.9 [facility] Hematocrit Auto (Bld) [Volum e fraction]Ordered By: Morris Carr on 05-14-2023 Hematocrit (Bld) [Volume fraction] 33.7 % 37-47 [facility] Laboratory - Chemistry and C hemistry - challengeOrdered By: Morris Carr on 05-14-2023 Albumin/Globulin [Mass ratio] 0.8 {ratio} 0.9-2.4 [facility] ALP [Catalytic activity/Vol] 83 U/L 45-117 [facility] ALT [Catalytic activity/Vol] 9 U/L 13-56 [facility] CO2 [Moles/Vol] 27.0 mmol/L 21.0-32.0 [facility] Globulin (S) [Mass/Vol] 3.6 g/dL 2.2-4.2 [facility] Urea nitrogen/Creatinine [Mass ratio] 20.6 mg/mg 10-20 [facility] Laboratory - Hematology and Cell countsOrdered By: Morrsi Carr on 05-14-2023 MCH (RBC) [Entitic mass] 25.3 pg 27.0-32.0 [facility] MCHC (RBC) [Mass/Vol] 29.7 g/dL 32-[address] [facility] Platelet mean volume (Bld) [Entitic vol] 10.5 fL 6.2-12.0 [facility] Platelets (Bld) [#/Vol] 406 10*3/uL 150-450 [facility] No Panel InformationOrdered By: Morris Carr on 05-14-2023 Estimated GFR (MDRD) Amer 95 mL/min >60 [facility] Comment on above: GFR Calc Estimated GFR (MDRD) Non-Af Amer 78 mL/min >60 [facility] Comment on above: Non- GFR Calc RBC Auto (Bld) [#/Vol]Ordere d By: Morris Carr on 05-14-2023 RBC (Bld) [#/Vol] 3.96 10*6/uL 4.2-5.4 [facility] Serum or plasma calcium raul urement (mass/volume)Ordered By: Morris Carr on 05-14-2023 Calcium [Mass/Vol] 8.7 mg/dL 8.5-10.1 [facility] Serum or plasma cortisol kevan surement (mass/volume)Ordered By: Morris Carr on 05-14-2023 Cortisol [Mass/Vol] 20.50 ug/dL 3.44-22.45 [facility] Comment on above: Adult (AM) 5.27 - 22 .45 ug/dL Adult (PM) 3.44 - 16.76 ug/dLPlease note revised CORTISOL reference range effective 2019. Serum or plasma creatinine m easurement (mass/volume)Ordered By: Morris Carr on 05-14-2023 Creatinine [Mass/Vol] 0.78 mg/dL 0.55-1.[address] [facility] Comment on above: The validity of the calculated GFR & GFRAA in patients over 70 years has not been determined. Clinical correlation is essential. Serum or plasma thyroid stim ulating hormone (TSH) measurement (units/volume)Ordered By: Morris Carr on 05-14-2023 TSH Qn 1.01 uIU/mL 0.358-3.74 [facility] Serum or plasma urea nitroge n measurement (mass/volume)Ordered By: Morris Carr on 05-14-2023 Urea nitrogen [Mass/Vol] 16 mg/dL 7-18 [facility] Thin prep Papanicolaou smear with manual screeningOrdered By: Morris Carr on 05-14-2023 Thin prep Papanicolaou smear with manual screening 2.7 g/dL 3.2-5.0 [facility] Thin prep Papanicolaou smear with manual screening 14 U/L 15-37 [facility] Thin prep Papanicolaou smear with manual screening 5 5-15 [facility] Basophil percentageOrdered B y: Morris Carr on 05-06-2023 Bilirubin [Mass/Vol] 0.40 mg/dL 0.20-1.00 [facility] Comment on above: For patients on eltr ombopag therapy, use of [place] TBIL is not recommended. Chloride [Moles/Vol] 108 mmol/L 98-107 [facility] Glucose [Mass/Vol] 88 mg/dL 74-106 [facility] Hemoglobin (Bld) [Mass/Vol] 10.8 g/dL 12.0-15.0 [facility] Potassium [Moles/Vol] 4.3 mmol/L 3.5-5.[address] [facility] Protein [Mass/Vol] 6.9 g/dL 6.4-8.2 [facility] Sodium [Moles/Vol] 142 mmol/L 136-145 [facility] WBC (Bld) [#/Vol] 8.7 10*3/uL 4.4-11.0 [facility] Determination of erythrocyte mean corpuscular volume (MCV)Ordered By: Morris Carr on 05-06-2023 MCV (RBC) [Entitic vol] 85.3 fL 81-99 [facility] Erythrocyte distribution wid th ratioOrdered By: Morris Carr on 05-06-2023 Erythrocyte distribution width (RBC) [Ratio] 15.9 % 11.6-14.6 [facility] Erythrocyte distribution wid th standard deviationOrdered By: Morris Carr on 05-06-2023 Erythrocyte distribution width (RBC) [Entitic vol] 50.3 fL 35.1-43.9 [facility] Hematocrit Auto (Bld) [Volum e fraction]Ordered By: Morris Carr on 05-06-2023 Hematocrit (Bld) [Volume fraction] 36.7 % 37-47 [facility] Laboratory - Chemistry and C hemistry - challengeOrdered By: Morris Carr on 05-06-2023 Albumin/Globulin [Mass ratio] 0.7 {ratio} 0.9-2.4 [facility] ALP [Catalytic activity/Vol] 88 U/L 45-117 [facility] ALT [Catalytic activity/Vol] 11 U/L 13-56 [facility] CO2 [Moles/Vol] 30.0 mmol/L 21.0-32.0 [facility] Globulin (S) [Mass/Vol] 4.0 g/dL 2.2-4.2 [facility] Urea nitrogen/Creatinine [Mass ratio] 16.5 mg/mg 10-20 [facility] Laboratory - Hematology and Cell countsOrdered By: Morris Carr on 05-06-2023 MCH (RBC) [Entitic mass] 25.1 pg 27.0-32.0 [facility] MCHC (RBC) [Mass/Vol] 29.4 g/dL 32-[address] [facility] Platelet mean volume (Bld) [Entitic vol] 10.1 fL 6.2-12.0 [facility] Platelets (Bld) [#/Vol] 464 10*3/uL 150-450 [facility] No Panel InformationOrdered By: Morris Carr on 05-06-2023 Estimated GFR (MDRD) Amer 102 mL/min >60 [facility] Comment on above: GFR Calc Estimated GFR (MDRD) Non-Af Amer 85 mL/min >60 [facility] Comment on above: Non- GFR Calc RBC Auto (Bld) [#/Vol]Ordere d By: Morris Carr on 05-06-2023 RBC (Bld) [#/Vol] 4.30 10*6/uL 4.2-5.4 [facility] Serum or plasma calcium raul urement (mass/volume)Ordered By: Morris Carr on 05-06-2023 Calcium [Mass/Vol] 9.0 mg/dL 8.5-10.1 [facility] Serum or plasma creatinine m easurement (mass/volume)Ordered By: Morris Carr on 05-06-2023 Creatinine [Mass/Vol] 0.73 mg/dL 0.55-1.[address] [facility] Comment on above: The validity of the calculated GFR & GFRAA in patients over 70 years has not been determined. Clinical correlation is essential. Serum or plasma urea nitroge n measurement (mass/volume)Ordered By: Morris Carr on 05-06-2023 Urea nitrogen [Mass/Vol] 12 mg/dL 7-18 [facility] Thin prep Papanicolaou smear with manual screeningOrdered By: Morris Carr on 05-06-2023 Thin prep Papanicolaou smear with manual screening 2.9 g/dL 3.2-5.0 [facility] Thin prep Papanicolaou smear with manual screening 9 U/L 15-37 [facility] Thin prep Papanicolaou smear with manual screening 4 5-15 [facility] Basophil percentageOrdered B y: Morris Carr on 03-18-2023 Chloride [Moles/Vol] 110 mmol/L 98-107 [facility] Glucose [Mass/Vol] 88 mg/dL 74-106 [facility] Hemoglobin (Bld) [Mass/Vol] 11.0 g/dL 12.0-15.0 [facility] Potassium [Moles/Vol] 3.7 mmol/L 3.5-5.[address] [facility] Sodium [Moles/Vol] 140 mmol/L 136-145 [facility] WBC (Bld) [#/Vol] 8.6 10*3/uL 4.4-11.0 [facility] Determination of erythrocyte mean corpuscular volume (MCV)Ordered By: Morris Carr on 03-18-2023 MCV (RBC) [Entitic vol] 86.6 fL 81-99 [facility] Erythrocyte distribution wid th ratioOrdered By: Morris Carr on 03-18-2023 Erythrocyte distribution width (RBC) [Ratio] 13.9 % 11.6-14.6 [facility] Erythrocyte distribution wid th standard deviationOrdered By: Morris Carr on 03-18-2023 Erythrocyte distribution width (RBC) [Entitic vol] 44.2 fL 35.1-43.9 [facility] Hematocrit Auto (Bld) [Volum e fraction]Ordered By: Morris Carr on 03-18-2023 Hematocrit (Bld) [Volume fraction] 36.9 % 37-47 [facility] Laboratory - Chemistry and C hemistry - challengeOrdered By: Morris Carr on 03-18-2023 CO2 [Moles/Vol] 28.0 mmol/L 21.0-32.0 [facility] Urea nitrogen/Creatinine [Mass ratio] 15.9 mg/mg 10-20 [facility] - Hematology and Cell countsOrdered By: Morris Carr on 03-18-2023 MCH (RBC) [Entitic mass] 25.8 pg 27.0-32.0 [facility] MCHC (RBC) [Mass/Vol] 29.8 g/dL 32-[address] [facility] Platelets (Bld) [#/Vol] 348 10*3/uL 150-450 [facility] No Panel InformationOrdered By: Morris Carr on 03-18-2023 Estimated GFR (MDRD) Amer 98 mL/min >60 [facility] Comment on above: GFR Calc Estimated GFR (MDRD) Non-Af Amer 81 mL/min >60 [facility] Comment on above: Non- GFR Calc Platelet mean volume Danny-Ec ker (Bld) [Entitic vol]Ordered By: Morris Carr on 03-18-2023 Platelet mean volume (Bld) [Entitic vol] 10.4 fL 6.2-12.0 [facility] RBC Auto (Bld) [#/Vol]Ordere d By: Morris Carr on 03-18-2023 RBC (Bld) [#/Vol] 4.26 10*6/uL 4.2-5.4 [facility] Serum or plasma calcium raul urement (mass/volume)Ordered By: Morris Carr on 03-18-2023 Calcium [Mass/Vol] 9.4 mg/dL 8.5-10.1 [facility] Serum or plasma creatinine m easurement (mass/volume)Ordered By: Morris Carr on 03-18-2023 Creatinine [Mass/Vol] 0.76 mg/dL 0.55-1.[address] [facility] Comment on above: The validity of the calculated GFR & GFRAA in patients over 70 years has not been determined. Clinical correlation is essential. Serum or plasma urea nitroge n measurement (mass/volume)Ordered By: Morris Carr on 03-18-2023 Urea nitrogen [Mass/Vol] 12 mg/dL 7-18 [facility] Thin prep Papanicolaou smear with manual screeningOrdered By: Morris Carr on 03-18-2023 Thin prep Papanicolaou smear with manual screening 2 5-15 [facility] Basophil percentageOrdered B y: Morris Carr on 03-02-2023 Basophil percentage 10-25 SEEN /hpf 0-5 [facility] Bilirubin Test strip Ql (U)O rdered By: Morris Carr on 03-02-2023 Bilirubin Ql (U) Negative Negative [facility] Calcium oxalate crystals det ection in urine sediment by light microscopyOrdered By: Morris Carr on 03-02-2023 Calcium oxalate crystals LM Ql (Urine sed) 1+ /hpf [facility] Culture, urineOrdered By: Yarely Carr on 03-02-2023 Bacteria identified Cx Nom (U) Escherichia coli [facility] Ketones Test strip Ql (U)Ord ered By: Morris Carr on 03-02-2023 Ketones Ql (U) Negative Negative [facility] Mucus LM Ql (Urine sed)Order ed By: Morris Carr on 03-02-2023 Mucus Ql (Urine sed) 0 SEEN /hpf [facility] Nitrite Test strip Ql (U)Ord ered By: Morris Carr on 03-02-2023 Nitrite Ql (U) Positive Negative [facility] Protein Test strip Ql (U)Ord ered By: Morris Carr on 03-02-2023 Protein Ql (U) 15 mg/dl Negative [facility] Squamous epithelial cells de tection in urine sediment by light microscopyOrdered By: Morris Carr on 03-02-2023 Epithelial cells.squamous LM Ql (Urine sed) 0-5 SEEN /hpf 5-10 [facility] Urine blood detectionOrdered By: Morris Carr on 03-02-2023 RBC Ql (U) Negative Negative [facility] RBC Ql (U) 0 SEEN /hpf 0-5 [facility] Urine clarityOrdered By: Deshaun Carr on 03-02-2023 Clarity (U) Sl. Cloudy Clear [facility] Urine color determinationOrd ered By: Morris Carr on 03-02-2023 Color (U) Yellow Yellow [facility] Urine glucose detectionOrder ed By: Morris Carr on 03-02-2023 Glucose Ql (U) Normal mg/dl Normal [facility] Urine leukocyte esterase det ection by dipstickOrdered By: Morris Carr on 03-02-2023 Leukocyte esterase Test strip Ql (U) 100 /ul Negative [facility] Urine pHOrdered By: Morris paulino on 03-02-2023 pH (U) 6.0 [pH] 5.0 - 8.0 [facility] Urine sediment bacteria coun t by microscopy (number/high power field)Ordered By: Morris Carr on 01-08-2024 Bacteria LM.HPF (Urine sed) [#/Area] 3 /[HPF] None Seen [facility] Urine specific gravity measu rementOrdered By: Morris Carr on 03-02-2023 Specific gravity (U) [Rel density] 1.020 1.002-1.030 [facility] Urobilinogen Auto test strip Ql (U)Ordered By: Morris Carr on 03-02-2023 Urobilinogen Ql (U) Normal mg/dl Normal [facility] Basophil percentageOrdered B y: Morris Carr on 02-20-2023 Chloride [Moles/Vol] 110 mmol/L 98-107 [facility] Glucose [Mass/Vol] 83 mg/dL 74-106 [facility] Potassium [Moles/Vol] 4.0 mmol/L 3.5-5.[address] [facility] Sodium [Moles/Vol] 144 mmol/L 136-145 [facility] WBC (Bld) [#/Vol] 8.1 10*3/uL 4.4-11.0 [facility] Blood erythrocytes count (nu mber/volume)Ordered By: Morris Carr on 02-20-2023 RBC (Bld) [#/Vol] 3.68 10*6/uL 4.2-5.4 [facility] Blood hemoglobin measurement (mass/volume)Ordered By: Morris Carr on 02-20-2023 Hemoglobin (Bld) [Mass/Vol] 9.8 g/dL 12.0-15.0 [facility] Blood platelet mean volumeOr dered By: Morris Carr on 02-20-2023 Platelet mean volume (Bld) [Entitic vol] 10.6 fL 6.2-12.0 [facility] Determination of erythrocyte mean corpuscular volume (MCV)Ordered By: Morris Carr on 02-20-2023 MCV (RBC) [Entitic vol] 90.5 fL 81-99 [facility] Hematocrit Auto (Bld) [Volum e fraction]Ordered By: Morris Carr on 02-20-2023 Hematocrit (Bld) [Volume fraction] 33.3 % 37-47 [facility] Laboratory - Chemistry and C hemistry - challengeOrdered By: Morris Carr on 02-20-2023 CO2 [Moles/Vol] 30.0 mmol/L 21.0-32.0 [facility] Urea nitrogen/Creatinine [Mass ratio] 12.7 mg/mg 10-20 [facility] - Hematology and Cell countsOrdered By: Morris Carr on 02-20-2023 Erythrocyte distribution width (RBC) [Entitic vol] 46.7 fL 35.1-43.9 [facility] Erythrocyte distribution width (RBC) [Ratio] 14.0 % 11.6-14.6 [facility] MCH (RBC) [Entitic mass] 26.6 pg 27.0-32.0 [facility] MCHC Auto (RBC) [Mass/Vol]Or dered By: Morris Carr on 02-20-2023 MCHC (RBC) [Mass/Vol] 29.4 g/dL 32-[address] [facility] No Panel InformationOrdered By: Morris Carr on 02-20-2023 Estimated GFR (MDRD) Amer 105 mL/min >60 [facility] Comment on above: GFR Calc Estimated GFR (MDRD) Non-Af Amer 87 mL/min >60 [facility] Comment on above: Non- GFR Calc Platelets bldOrdered By: Deshaun Carr on 02-20-2023 Platelets (Bld) [#/Vol] 352 10*3/uL 150-450 [facility] Serum or plasma calcium raul urement (mass/volume)Ordered By: Morris Carr on 02-20-2023 Calcium [Mass/Vol] 8.7 mg/dL 8.5-10.1 [facility] Serum or plasma creatinine m easurement (mass/volume)Ordered By: Morris Carr on 02-20-2023 Creatinine [Mass/Vol] 0.71 mg/dL 0.55-1.[address] [facility] Comment on above: The validity of the calculated GFR & GFRAA in patients over 70 years has not been determined. Clinical correlation is essential. Serum or plasma urea nitroge n measurement (mass/volume)Ordered By: Morris Carr on 02-20-2023 Urea nitrogen [Mass/Vol] 9 mg/dL 7-18 [facility] Thin prep Papanicolaou smear with manual screeningOrdered By: Morris Carr on 02-20-2023 Thin prep Papanicolaou smear with manual screening 4 5-15 [facility] Basophil percentageOrdered B y: Morris Carr on 02-13-2023 Chloride [Moles/Vol] 111 mmol/L 98-107 [facility] Glucose [Mass/Vol] 88 mg/dL 74-106 [facility] Potassium [Moles/Vol] 3.9 mmol/L 3.5-5.[address] [facility] Sodium [Moles/Vol] 141 mmol/L 136-145 [facility] WBC (Bld) [#/Vol] 8.8 10*3/uL 4.4-11.0 [facility] Blood erythrocytes count (nu mber/volume)Ordered By: Morris Carr on 02-13-2023 RBC (Bld) [#/Vol] 3.96 10*6/uL 4.2-5.4 [facility] Blood hemoglobin measurement (mass/volume)Ordered By: Morris Carr on 02-13-2023 Hemoglobin (Bld) [Mass/Vol] 10.8 g/dL 12.0-15.0 [facility] Blood platelet mean volumeOr dered By: Morris Carr on 02-13-2023 Platelet mean volume (Bld) [Entitic vol] 10.1 fL 6.2-12.0 [facility] Determination of erythrocyte mean corpuscular volume (MCV)Ordered By: Morris Carr on 02-13-2023 MCV (RBC) [Entitic vol] 88.6 fL 81-99 [facility] Hematocrit Auto (Bld) [Volum e fraction]Ordered By: Morris Carr on 02-13-2023 Hematocrit (Bld) [Volume fraction] 35.1 % 37-47 [facility] Laboratory - Chemistry and C hemistry - challengeOrdered By: Morris Carr on 02-13-2023 CO2 [Moles/Vol] 24.0 mmol/L 21.0-32.0 [facility] Urea nitrogen/Creatinine [Mass ratio] 12.6 mg/mg 10-20 [facility] - Hematology and Cell countsOrdered By: Morris Carr on 02-13-2023 Erythrocyte distribution width (RBC) [Entitic vol] 45.4 fL 35.1-43.9 [facility] Erythrocyte distribution width (RBC) [Ratio] 14.2 % 11.6-14.6 [facility] MCH (RBC) [Entitic mass] 27.3 pg 27.0-32.0 [facility] MCHC Auto (RBC) [Mass/Vol]Or dered By: Morris Carr on 02-13-2023 MCHC (RBC) [Mass/Vol] 30.8 g/dL 32-[address] [facility] No Panel InformationOrdered By: Morris Carr on 02-13-2023 Estimated GFR (MDRD) Amer 93 mL/min >60 [facility] Comment on above: GFR Calc Estimated GFR (MDRD) Non-Af Amer 77 mL/min >60 [facility] Comment on above: Non- GFR Calc Platelets bldOrdered By: Deshaun Carr on 02-13-2023 Platelets (Bld) [#/Vol] 432 10*3/uL 150-450 [facility] Serum or plasma calcium raul urement (mass/volume)Ordered By: Morris Carr on 02-13-2023 Calcium [Mass/Vol] 8.8 mg/dL 8.5-10.1 [facility] Serum or plasma creatinine m easurement (mass/volume)Ordered By: Morris Carr on 02-13-2023 Creatinine [Mass/Vol] 0.79 mg/dL 0.55-1.[address] [facility] Comment on above: The validity of the calculated GFR & GFRAA in patients over 70 years has not been determined. Clinical correlation is essential. Serum or plasma urea nitroge n measurement (mass/volume)Ordered By: Morris Carr on 02-13-2023 Urea nitrogen [Mass/Vol] 10 mg/dL 7-18 [facility] Thin prep Papanicolaou smear with manual screeningOrdered By: Morris Carr on 02-13-2023 Thin prep Papanicolaou smear with manual screening 6 5-15 [facility] Basophil percentageOrdered B y: Morris Carr on 01-30-2023 Chloride [Moles/Vol] 110 mmol/L 98-107 [facility] Glucose [Mass/Vol] 84 mg/dL 74-106 [facility] Potassium [Moles/Vol] 3.8 mmol/L 3.5-5.[address] [facility] Sodium [Moles/Vol] 141 mmol/L 136-145 [facility] WBC (Bld) [#/Vol] 9.0 10*3/uL 4.4-11.0 [facility] Blood erythrocytes count (nu mber/volume)Ordered By: Morris Carr on 01-30-2023 RBC (Bld) [#/Vol] 3.31 10*6/uL 4.2-5.4 [facility] Blood hemoglobin measurement (mass/volume)Ordered By: Morris Carr on 01-30-2023 Hemoglobin (Bld) [Mass/Vol] 9.1 g/dL 12.0-15.0 [facility] Blood platelet mean volumeOr dered By: Morris Carr on 01-30-2023 Platelet mean volume (Bld) [Entitic vol] 10.4 fL 6.2-12.0 [facility] Determination of erythrocyte mean corpuscular volume (MCV)Ordered By: Morris Carr on 01-30-2023 MCV (RBC) [Entitic vol] 90.9 fL 81-99 [facility] Hematocrit Auto (Bld) [Volum e fraction]Ordered By: Morris Carr on 01-30-2023 Hematocrit (Bld) [Volume fraction] 30.1 % 37-47 [facility] Laboratory - Chemistry and C hemistry - challengeOrdered By: Morris Carr on 01-30-2023 CO2 [Moles/Vol] 29.0 mmol/L 21.0-32.0 [facility] Urea nitrogen/Creatinine [Mass ratio] 17.5 mg/mg 10-20 [facility] Laboratory - Hematology and Cell countsOrdered By: Morris Carr on 01-30-2023 Erythrocyte distribution width (RBC) [Entitic vol] 48.5 fL 35.1-43.9 [facility] Erythrocyte distribution width (RBC) [Ratio] 14.7 % 11.6-14.6 [facility] MCH (RBC) [Entitic mass] 27.5 pg 27.0-32.0 [facility] MCHC Auto (RBC) [Mass/Vol]Or dered By: Morris Carr on 01-30-2023 MCHC (RBC) [Mass/Vol] 30.2 g/dL 32-[address] [facility] No Panel InformationOrdered By: Morris Carr on 01-30-2023 Estimated GFR (MDRD) Amer 100 mL/min >60 [facility] Comment on above: GFR Calc Estimated GFR (MDRD) Non-Af Amer 83 mL/min >60 [facility] Comment on above: Non- GFR Calc Platelets bldOrdered By: Deshaun Carr on 01-30-2023 Platelets (Bld) [#/Vol] 317 10*3/uL 150-450 [facility] Serum or plasma calcium raul urement (mass/volume)Ordered By: Morris Carr on 01-30-2023 Calcium [Mass/Vol] 8.5 mg/dL 8.5-10.1 [facility] Serum or plasma creatinine m easurement (mass/volume)Ordered By: Morris Carr on 01-30-2023 Creatinine [Mass/Vol] 0.74 mg/dL 0.55-1.[address] [facility] Comment on above: The validity of the calculated GFR & GFRAA in patients over 70 years has not been determined. Clinical correlation is essential. Serum or plasma urea nitroge n measurement (mass/volume)Ordered By: Morris Carr on 01-30-2023 Urea nitrogen [Mass/Vol] 13 mg/dL 7-18 [facility] Thin prep Papanicolaou smear with manual screeningOrdered By: Morris Carr on 01-30-2023 Thin prep Papanicolaou smear with manual screening 2 5-15 [facility] ECG 12-LEADon 01-27-2023 ECG 12-LEAD IMPRESSION: Sinus rhythm Electronically Signed On 01-27-2023 9:41:09 EST by Tatyana Vasquez [facility] CARECOORDon 01-26-2023 CARECOORD Next Site of Care Admission Date: 01/24/2023 12:48 AM Patient Name: CLARIBEL STOLL Location: [place] [address] [id number] Date of : 1955 ---- Placement Information ---- Referral Type:Fpc/SNF - Return Referral ID:[id number] Provider Name:Nakul Address 1:[address] [place] [address] 180 Address 2: City:[place] Selection Factors:Returning to Facility State:[place] Normal [facility] tasked to send discharge paperwork to [facility] hitesh [place]. [facility] Discharge med list transmitted to Return [facility]- [facility] hitesh [place] via Careport per TCC request. [facility] CARENVORD Transport arranged f or 1600 today to tranfer patient to [facility]. RN, TCC, US, [facility], sister (Missy) were notified. [facility] Care Managment Initi al Assessment Date: 01/26/2023 Patient Name: Claribel Stoll : 1955 Patient Information Source of Information: Patient Cmv Driver Name/Contact Information: Missy Whitfield - sister Cognition/Language: Confused at baseline Permission given to speak with patient distribution sales representative[facility] as indicated: Confirmation of Payer with patient/family: Yes Payer Name: [employer] [place]: Confirmation of Primary Care Physician: Confirmed PCP Name: morris Carr Seen in last 2 years?: Yes Primary Caregiver: If assistance needed, confirmed caregiver ready, willing and able to care for patient at discharge: Confirmed with: lives at [facility] Living Arrangements Current Residence: Number of Floors Number of Entry Steps: Bed/Bath Levels: Facility: Fpc/[facility] Facility Name: [facility] Plan to Return: Lives with: Other (Comment) Support Systems: Family members Activities of Daily Living Ambulation: Total Care Bathing/Dressing: Total Care Elimination/Continence /Toileting: Assistance Feeding: Assistance Who Assists with Activities of Daily Living: staff at [facility] Instrumental Activities of Daily Living Prescription Coverage: [...] expects to be discharged to: back to [facility] Discharge Planning Actions: No needs identified Patient's Choice Rights and [employer] and Collaborative Relationships Disclosed as Indicated for Post-Acute Care: Interdisciplinary Team Engagement: PT/OT Social Work Referral for: Additional Information: Patient remains on H6 after fall s/p [facility] 01/25/2023. Discharge order noted. Call placed to Missy Whitfield sister of patient. Missy answered admission questions. Patient lives at [facility] and uses a w/c at baseline, staff assists with all care. [facility] patient is at intermediate level of care and is a bedhold, able to take patient back today. personal support worker aware of need to transport. TCC to assist and follow as needed. Nyla Haider RN Normal [facility] CBC (HEMOGRAM)on 01-26-2023 Erythrocyte distribution width (RBC) [Ratio] 14.9 % High 11.5-14.5 [facility] Comment on above: Performed By: #### L [id number] ####Home Visits Nurse: NELSY PATEL ([phone])[address] ERYTHROCYTE MEAN CORPUSCULAR HEMOGLOBIN CONCENTRATION (G/DL) BY AUTOMATED 31.8 % Low 32.0-36.0 [facility] Comment on above: Performed By: #### L [id number] ####Home Visits Nurse: NELSY PATEL ([phone])[address] Hematocrit (Bld) [Volume fraction] 32.0 % Low 35.0-47.0 [facility] Comment on above: Performed By: #### L [id number] ####Home Visits Nurse: NELSY PATEL ([phone])[address] Hemoglobin (Bld) [Mass/Vol] 10.2 g/dL Low 11.7-16.0 [facility] Comment on above: Performed By: #### L [id number] ####Home Visits Nurse: NELSY PATEL ([phone])[address] MCH (RBC) [Entitic mass] 27.1 pg Normal 26.0-34.0 [facility] Comment on above: Performed By: #### L [id number] ####Home Visits Nurse: NELSY PATEL ([phone])[facility] ([facility])[address] [place] [address] MCV (RBC) [Entitic vol] 85.2 fL Normal 80.0-98.0 [facility] Comment on above: Performed By: #### L [id number] ####Home Visits Nurse: NELSY PATEL ([phone])[facility])[address] [place] [address] Platelet mean volume (Bld) [Entitic vol] 9.1 fL Normal 7.4-12.4 [facility] Comment on above: Performed By: #### L [id number] ####Home Visits Nurse: NELSY PATEL ([phone])[facility] ([facility])[address] [place] [address] Platelets (Bld) [#/Vol] 259 10*3/uL Normal 140-440 [facility] Comment on above: Performed By: #### L [id number] ####Home Visits Nurse: NELSY PATEL ([phone])[facility] ([facility])[address] [place] [address] RBC (Bld) [#/Vol] 3.75 10*6/uL Low 3.8-5.20 [facility] Comment on above: Performed By: #### L [id number] ####Home Visits Nurse: NELSY PATEL ([phone])[facility] ([facility])[address] [place] [address] WBC (Bld) [#/Vol] 14.7 10*3/uL High 3.6-10.7 [facility] Comment on above: Performed By: #### L [id number] ####Home Visits Nurse: NELSY PATEL ([phone])[facility])[address] [place] [address] CBC panel Auto (Bld)on 01-26 Erythrocyte distribution width (RBC) [Ratio] 14.9 % High 11.5 - 14.5 % [facility] Hematocrit (Bld) [Volume fraction] 32.0 % Low 35.0 - 47.0 % [facility] Hemoglobin (Bld) [Mass/Vol] 10.2 g/dL Low 11.7 - 16.0 g/dL [facility] Interpretation and review of laboratory results Abnormal [facility] MCH (RBC) [Entitic mass] 27.1 pg 26.0 - 34.0 pg [facility] MCHC (RBC) [Mass/Vol] 31.8 % Low 32.0 - 36.0 % [facility] MCV (RBC) [Entitic vol] 85.2 fL 80.0 - 98.0 fL [facility] Platelet mean volume (Bld) [Entitic vol] 9.1 fL 7.4 - 12.4 fL [facility] Platelets (Bld) [#/Vol] 259 10*3/uL 140 - 440 10*3/uL [facility] RBC (Bld) [#/Vol] 3.75 10*6/uL Low 3.8 - 5.20 10*6/uL [facility] WBC (Bld) [#/Vol] 14.7 10*3/uL High 3.6 - 10.7 10*3/uL [facility] COMPREHENSIVE METABOLIC PANE Janak 01-26-2023 Albumin [Mass/Vol] 3.6 g/dL Normal 3.5-5.0 [facility] Comment on above: Performed By: #### Greg DEL ROSARIO17, [id number] ####Home Visits Nurse: NELSY PATEL ([phone])[address] ALP [Catalytic activity/Vol] 70 U/L Normal 38-126 [facility] Comment on above: Performed By: #### Greg AB17, [id number] ####Home Visits Nurse: NELSY PATEL ([phone])[facility] ([facility])[address] [place] [address] ALT [Catalytic activity/Vol] 11 U/L Normal 0-34 [facility] Comment on above: Performed By: #### Greg AB17, [id number] ####Home Visits Nurse: NELSY PATEL ([phone])[facility])[address] [place] [address] Anion gap [Moles/Vol] 8 mmol/L Normal 3-13 [facility] Comment on above: Performed By: #### Greg RILEY, [id number] ####Home Visits Nurse: NELSY PATEL ([phone])[facility] ([facility])[address] [place] [address] AST [Catalytic activity/Vol] 28 U/L Normal 15-46 [facility] Comment on above: Performed By: #### Greg RILEY, [id number] ####Home Visits Nurse: NELSY PATEL ([phone])[facility] ([facility])[address] [place] [address] Bilirubin [Mass/Vol] 0.8 mg/dL Normal 0.2-1.3 [facility] Comment on above: Performed By: #### Greg RILEY, [id number] ####Home Visits Nurse: NELSY PATEL ([phone])[facility] ([facility])[address] [place] [address] Calcium [Mass/Vol] 8.7 mg/dL Normal 8.4-10.4 [facility] Comment on above: Performed By: #### Greg RILEY, [id number] ####Home Visits Nurse: NELSY PATEL ([phone])[facility] ([facility])[address] [place] [address] [place] Chloride [Moles/Vol] 104 mmol/L Normal 98-107 [facility] Comment on above: Performed By: #### Greg RILEY, [id number] ####Home Visits Nurse: NELSY PATEL ([phone])[facility] ([facility])[address] [place] [address] [place] CO2 [Moles/Vol] 24 mmol/L Normal 22-30 [facility] Comment on above: Performed By: #### Greg RILEY, [id number] ####Home Visits Nurse: NELSY PATEL ([phone])[facility] ([facility])[address] [place] [address] [place] Creatinine [Mass/Vol] 0.53 mg/dL Normal 0.52-1.04 [facility] Comment on above: Performed By: #### Greg RILEY, [id number] ####Home Visits Nurse: NELSY PATEL ([phone])[facility])[address] [place] [address] GLOMERULAR FILTRATION RATE ML/MIN/1.73 SQ M.PREDICTED >90.0 Normal >60.0 [facility] Comment on above: Result Comment: Calc ulation based on the Chronic Kidney Disease Epidemiology Collaboration (CKD-EPI) equation refit without adjustment for race Performed By: #### Greg RILEY, [id number] ####Home Visits Nurse: NELSY PATEL ([id number])[facility] ([facility])[address] [place] [address] Glucose [Mass/Vol] 129 mg/dL High 70-100 [facility] Comment on above: Performed By: #### Greg RILEY, [id number] ####Home Visits Nurse: NELSY PATEL ([phone])[facility] ([facility])[address] [place] [address] Potassium [Moles/Vol] 3.9 mmol/L Normal 3.5-5.1 [facility] Comment on above: Performed By: #### Greg RILEY, [id number] ####Home Visits Nurse: NELSY PATEL ([phone])[facility] ([facility])[address] [place] [address] Protein [Mass/Vol] 6.9 g/dL Normal 6.3-8.2 [facility] Comment on above: Performed By: #### Greg RILEY, [id number] ####Home Visits Nurse: NELSY PATEL ([id number])[facility] ([facility])[address] [place] [address] [place] Sodium [Moles/Vol] 137 mmol/L Normal 135-145 [facility] Comment on above: Performed By: #### Greg DEL ROSARIO17, [id number] ####Home Visits Nurse: NELSY PATEL ([phone])[facility])[address] [place] [address] [place] Urea nitrogen [Mass/Vol] 12 mg/dL Normal 7-17 [facility] Comment on above: Performed By: #### L AB17, [id number] ####Home Visits Nurse: NELSY PATEL ([id number])[facility] ([address] HEAD WO IV CONTRASTon CT HEAD WO IV CONTRAST [facility] 1955 [id number] Exam Date/Time: 01/26/2023 02:15 Procedure: CT HEAD [...] Signed Date/Time: 01/26/2023 2:57 AM EST Normal [facility] CT Head WO contraston [address] head. No evidence of an acute intracranial process. 2. Mild volume loss. Periventricular and subcortical leukomalacia likely reflects areas of small vessel ischemic change. Report Dictated on Electronically Signed By: Jluis Barrera MD Electronically Signed Date/Time: 01/26/2023 2:57 AM [facility] Patient Name: CLARIBEL STOLL : [...] calcification of the carotid siphons is noted. [facility] Jluis Barrera MD - 01/26/2023 Patient Name: [...] Electronically Signed Date/Time: 01/26/2023 2:57 AM EST [facility] Radiology Study observation (narrative) [facility] He alth CT Head WO contrastOrdered B y: Jluis Barrera on 01-26-2023 [facility] Work Phone: Comprehensive metabolic 1998 panelon 01-26-2023 Albumin [Mass/Vol] 3.6 g/dL 3.5 - 5.0 g/dL [facility] ALP [Catalytic activity/Vol] 70 U/L 38 - 126 U/L [facility] ALT [Catalytic activity/Vol] 11 U/L 0 - 34 U/L [facility] Anion gap [Moles/Vol] 8 mmol/L 3 - 13 mmol/L [facility] AST [Catalytic activity/Vol] 28 U/L 15 - 46 U/L [facility] Bilirubin [Mass/Vol] 0.8 mg/dL 0.2 - 1 .3 mg/dL [facility] Calcium [Mass/Vol] 8.7 mg/dL 8.4 - 10. 4 mg/dL [facility] Chloride [Moles/Vol] 104 mmol/L 98 - 10 7 mmol/L [facility] CO2 [Moles/Vol] 24 mmol/L 22 - 30 mmol/L [facility] Creatinine [Mass/Vol] 0.53 mg/dL 0.52 - 1.04 mg/dL [facility] GFR/1.73 sq M.predicted MDRD (S/P/Bld) [Vol rate/Area] - PINF [facility] Comment on above: Calculation based on the Chronic Kidney Disease Epidemiology Collaboration (CKD-EPI) equation refit without adjustment for race Glucose [Mass/Vol] 129 mg/dL High 70 - 100 mg/dL [facility] Interpretation and review of laboratory results Abnormal [facility] Potassium [Moles/Vol] 3.9 mmol/L 3.5 - 5.1 mmol/L [facility] Protein [Mass/Vol] 6.9 g/dL 6.3 - 8.2 g/dL [facility] Sodium [Moles/Vol] 137 mmol/L 135 - 145 mmol/L [facility] Urea nitrogen [Mass/Vol] 12 mg/dL 7 - 17 mg/dL [facility] IDNon 01-26-2023 IDN Problem: Knowledge Deficit Goal: [...] or improved Outcome: Completed Normal [facility] IDN Problem: Knowledge Deficit Goal: [...] pressure to bony prominences Normal [facility] IDN Called to see patien [...] state age correctly, states she is at [facility] . She does not recall why she [...] status. Order received for CT scan Normal [facility] Laboratory - Chemistry and C hemistry - challengeon 01-26-2023 Troponin I.cardiac [Mass/Vol] ng/mL NINF - 0.034 ng/mL [facility] Glucose [Mass/Vol] 145 mg/dL High 70 - 100 mg/dL [facility] No Panel Informationon 01-26 Interpretation and review of laboratory results Abnormal [facility] Performed by: [facility], [address] [place] [address] CLIA ID: [id number] [facility] Nursing Noteon 01-26-2023 Nursing Note Pt alertness decline d over shift, Dr Domínguez up to assess the patient. FOOTWEAR STITCHER notified per Dr Domínguez. FOOTWEAR STITCHER up to assess the patient. Narcan given per order with no change. Pt taken down to CT. Normal [facility] Progress Noteon 01-26-2023 Progress Note Nutrition rescreen completed. Chart reviewed. Patient to be monitored and followed by the diet filling technician. CONNOR Canales Normal [facility] Progress Note Paged to Pt for concern of mental status change number operator the course of the evening. Pt POD [...] Head for this mental status change Normal [facility] TROPONIN, WITH SERIAL REFLEX on 01-26-2023 Troponin I.cardiac [Mass/Vol] ng/mL Normal <0.034 [facility] Comment on above: Result Comment: ELVIA Diaz COMMENTS: Patients with high levels of Biotin oral intake (ie >5 mg/day) may have falsely decreased Troponin levels. Performed By: #### L AB17, [id number] ####Home Visits Nurse: NELSY PATEL ([phone])[address] Troponin I.cardiac [Mass/Vol ]on 01-26-2023 Interpretation and review of laboratory results Normal [facility] Patients with high levels of Biotin oral intake (ie >5 mg/day) may have falsely decreased Troponin levels. [facility] BASIC METABOLIC PANELon 12-0 Anion gap [Moles/Vol] 9 mmol/L Normal 3-13 [facility] Comment on above: Performed By: #### L AB15 ####Home Visits Nurse: NELSY PATEL ([phone])[address] Calcium [Mass/Vol] 8.4 mg/dL Normal 8.4-10.4 [facility] Comment on above: Performed By: #### L AB15 ####Home Visits Nurse: NELSY PATEL ([phone])[address] Chloride [Moles/Vol] 105 mmol/L Normal 98-107 [facility] Comment on above: Performed By: #### L AB15 ####Home Visits Nurse: NELSY PATEL ([phone])[facility])[address] [place] [address] CO2 [Moles/Vol] 21 mmol/L Low 22-30 [facility] Comment on above: Performed By: #### L AB15 ####Home Visits Nurse: NELSY PATEL ([phone])[facility] ([facility])[address] [place] [address] Creatinine [Mass/Vol] 0.58 mg/dL Normal 0.52-1.04 [facility] Comment on above: Performed By: #### L AB15 ####Home Visits Nurse: NELSY PATEL ([phone])[facility] ([facility])[address] [place] [address] GLOMERULAR FILTRATION RATE ML/MIN/1.73 SQ M.PREDICTED >90.0 Normal >60.0 [facility] Comment on above: Result Comment: Calc ulation based on the Chronic Kidney Disease Epidemiology Collaboration (CKD-EPI) equation refit without adjustment for race Performed By: #### L AB15 ####Home Visits Nurse: NELSY PATEL ([phone])[facility] ([facility])[address] [place] [address] Glucose [Mass/Vol] 97 mg/dL Normal 70-100 [facility] Comment on above: Performed By: #### L AB15 ####Home Visits Nurse: NELSY PATEL ([phone])[facility] ([facility])[address] [place] [address] Potassium [Moles/Vol] 3.8 mmol/L Normal 3.5-5.1 [facility] Comment on above: Performed By: #### L AB15 ####Home Visits Nurse: NELSY PATEL ([phone])[facility] ([facility])[address] [place] [address] [place] Sodium [Moles/Vol] 135 mmol/L Normal 135-145 [facility] Comment on above: Performed By: #### L AB15 ####Home Visits Nurse: NELSY PATEL ([phone])[facility] ([facility])[address] [place] [address] [place] Urea nitrogen [Mass/Vol] 14 mg/dL Normal 7-17 [facility] Comment on above: Performed By: #### L AB15 ####Home Visits Nurse: NELSY PATEL ([phone])[facility] ([address] Basic metabolic 1998 panelon 01-25-2023 Anion gap [Moles/Vol] 9 mmol/L 3 - 13 mmol/L [facility] Calcium [Mass/Vol] 8.4 mg/dL 8.4 - 10. 4 mg/dL [facility] Chloride [Moles/Vol] 105 mmol/L 98 - 10 7 mmol/L [facility] CO2 [Moles/Vol] 21 mmol/L Low 22 - 30 mmol/L [facility] Creatinine [Mass/Vol] 0.58 mg/dL 0.52 - 1.04 mg/dL [facility] GFR/1.73 sq M.predicted MDRD (S/P/Bld) [Vol rate/Area] - PINF [facility] Comment on above: Calculation based on the Chronic Kidney Disease Epidemiology Collaboration (CKD-EPI) equation refit without adjustment for race Glucose [Mass/Vol] 97 mg/dL 70 - 100 mg/dL [facility] Interpretation and review of laboratory results Abnormal [facility] Potassium [Moles/Vol] 3.8 mmol/L 3.5 - 5.1 mmol/L [facility] Sodium [Moles/Vol] 135 mmol/L 135 - 145 mmol/L [facility] Urea nitrogen [Mass/Vol] 14 mg/dL 7 - 17 mg/dL [facility] CBC W Auto Differential pane l (Bld)Ordered By: Garry Rangel on 01-25-2023 Basophils (Bld) [#/Vol] 0.1 10*3/uL 0.0 - 0.2 10*3/uL [facility] Basophils/100 WBC (Bld) 0.8 % 0.0 - 2.0 % [facility] Eosinophils (Bld) [#/Vol] 0.6 10*3/uL High 0.0 - 0.5 10*3/uL [facility] Eosinophils/100 WBC (Bld) 5.6 % 1.0 - 6.0 % [facility] Erythrocyte distribution width (RBC) [Ratio] 15.0 % High 11.5 - 14.5 % [facility] Hematocrit (Bld) [Volume fraction] 32.9 % Low 35.0 - 47.0 % [facility] Hemoglobin (Bld) [Mass/Vol] 10.4 g/dL Low 11.7 - 16.0 g/dL [facility] Interpretation and review of laboratory results Abnormal [facility] Lymphocytes (Bld) [#/Vol] 2.5 10*3/uL 1.0 - 4.3 10*3/uL [facility] Lymphocytes/100 WBC (Bld) 23.1 % 20.0 - 40.0 % [facility] MCH (RBC) [Entitic mass] 27.4 pg 26.0 - 34.0 pg [facility] MCHC (RBC) [Mass/Vol] 31.7 % Low 32.0 - 36.0 % [facility] MCV (RBC) [Entitic vol] 86.3 fL 80.0 - 98.0 fL [facility] Monocytes (Bld) [#/Vol] 1.1 10*3/uL High 0.0 - 0.8 10*3/uL [facility] Monocytes/100 WBC (Bld) 9.8 % 2.0 - 10.0 % [facility] Neutrophils (Bld) [#/Vol] 6.6 10*3/uL 1.8 - 7.0 10*3/uL [facility] Neutrophils/100 WBC (Bld) 60.7 % 40.0 - 80.0 % [facility] Nucleated RBC/100 WBC (Bld) [Ratio] 0.1 % [facility] Platelet mean volume (Bld) [Entitic vol] 8.2 fL 7.4 - 12.4 fL [facility] Platelets (Bld) [#/Vol] 250 10*3/uL 140 - 440 10*3/uL [facility] RBC (Bld) [#/Vol] 3.81 10*6/uL 3.8 - 5.20 10*6/uL [facility] WBC (Bld) [#/Vol] 10.9 10*3/uL High 3.6 - 10.7 10*3/uL [facility] CBC WITH AUTO DIFFERENTIALon 01-25-2023 Basophils (Bld) [#/Vol] 0.1 10*3/uL Normal 0.0-0.2 [facility] Comment on above: Performed By: #### L [id number] ####Home Visits Nurse: NELSY PATEL ([phone])[facility])[address] [place] [address] Basophils/100 WBC (Bld) 0.8 % Normal 0.0-2.0 [facility] Comment on above: Performed By: #### L [id number] ####Home Visits Nurse: NELSY PATEL ([phone])[facility])[address] [place] [address] Eosinophils (Bld) [#/Vol] 0.6 10*3/uL High 0.0-0.5 [facility] Comment on above: Performed By: #### L [id number] ####Home Visits Nurse: NELSY PATEL ([phone])[facility])[address] [place] [address] Eosinophils/100 WBC (Bld) 5.6 % Normal 1.0-6.0 [facility] Comment on above: Performed By: #### L [id number] ####Home Visits Nurse: NELSY PATEL ([phone])[facility])[address] [place] [address] Erythrocyte distribution width (RBC) [Ratio] 15.0 % High 11.5-14.5 [facility] Comment on above: Performed By: #### L [id number] ####Home Visits Nurse: NELSY PATEL ([phone])[facility])[address] [place] [address] ERYTHROCYTE MEAN CORPUSCULAR HEMOGLOBIN CONCENTRATION (G/DL) BY AUTOMATED 31.7 % Low 32.0-36.0 [facility] Comment on above: Performed By: #### L [id number] ####Home Visits Nurse: NELSY PATEL ([phone])[facility])[address] [place] [address] Hematocrit (Bld) [Volume fraction] 32.9 % Low 35.0-47.0 [facility] Comment on above: Performed By: #### L [id number] ####Home Visits Nurse: NELSY PATEL ([phone])[facility])[address] [place] [address] Hemoglobin (Bld) [Mass/Vol] 10.4 g/dL Low 11.7-16.0 [facility] Comment on above: Performed By: #### L [id number] ####Home Visits Nurse: NELSY PATEL ([phone])[facility])[address] [place] [address] Lymphocytes (Bld) [#/Vol] 2.5 10*3/uL Normal 1.0-4.3 [facility] Comment on above: Performed By: #### L [id number] ####Home Visits Nurse: NELSY PATEL ([phone])[facility])[address] [place] [address] Lymphocytes/100 WBC (Bld) 23.1 % Normal 20.0-40.0 [facility] Comment on above: Performed By: #### L [id number] ####Home Visits Nurse: NELSY PATEL ([phone])[facility])[address] [place] [address] MCH (RBC) [Entitic mass] 27.4 pg Normal 26.0-34.0 [facility] Comment on above: Performed By: #### L [id number] ####Home Visits Nurse: NELSY PATEL ([phone])[facility])[address] [place] [address] MCV (RBC) [Entitic vol] 86.3 fL Normal 80.0-98.0 [facility] Comment on above: Performed By: #### L [id number] ####Home Visits Nurse: NELSY PATEL ([phone])[facility])[address] [place] [address] Monocytes (Bld) [#/Vol] 1.1 10*3/uL High 0.0-0.8 [facility] Comment on above: Performed By: #### L [id number] ####Home Visits Nurse: NELSY PATEL ([phone])[facility] ([facility])[address] [place] [address] Monocytes/100 WBC (Bld) 9.8 % Normal 2.0-10.0 [facility] Comment on above: Performed By: #### L [id number] ####Home Visits Nurse: NELSY PATEL ([phone])[facility])[address] [place] [address] Neutrophils (Bld) [#/Vol] 6.6 10*3/uL Normal 1.8-7.0 [facility] Comment on above: Performed By: #### L [id number] ####Home Visits Nurse: NELSY PATEL ([phone])[facility])[address] [place] [address] Neutrophils/100 WBC (Bld) 60.7 % Normal 40.0-80.0 [facility] Comment on above: Performed By: #### L [id number] ####Home Visits Nurse: NELSY PATEL ([phone])[facility] ([facility])[address] [place] [address] NRBC (PER 100 WBCS) BY AUTOMATED COUNT 0.1 /100 WBCs Normal 0.0-2.0 [facility] Comment on above: Performed By: #### L [id number] ####Home Visits Nurse: NELSY PATEL ([phone])[facility])[address] [place] [address] Platelet mean volume (Bld) [Entitic vol] 8.2 fL Normal 7.4-12.4 [facility] Comment on above: Performed By: #### L [id number] ####Home Visits Nurse: NELSY PATEL ([phone])[facility] ([facility])[address] [place] [address] [place] Platelets (Bld) [#/Vol] 250 10*3/uL Normal 140-440 [facility] Comment on above: Performed By: #### L [id number] ####Home Visits Nurse: NELSY PATEL ([phone])[facility])[address] [place] [address] RBC (Bld) [#/Vol] 3.81 10*6/uL Normal 3.8-5.20 [facility] Comment on above: Performed By: #### L [id number] ####Home Visits Nurse: NELSY PATEL ([phone])[facility] ([facility])[address] [place] [address] WBC (Bld) [#/Vol] 10.9 10*3/uL High 3.6-10.7 [facility] Comment on above: Performed By: #### L [id number] ####Home Visits Nurse: NELSY PATEL ([phone])[facility] ([facility])[address] [place] [address] Laboratory - Coagulationon 1 03-28-2022 aPTT Coag (PPP) [Time] 26.3 s 20.0 - 30.5 s [facility] INR Coag (PPP) [Relative time] 1.0 {INR} 0.9 - 1.1 [facility] Comment on above: Recommended Anticoag ulant Therapy: [...] [Time] 10.7 s 9.0 - 12.0 s [facility] No Panel Informationon 01-25 Interpretation and review of laboratory results Normal [facility] Nursing Noteon 01-25-2023 Nursing Note Pt to floor with transport, nad, resp non labored, alert and denies any pain Normal [facility] Nursing Note Report called to floor, transport initiated Normal [facility] Op Noteon 01-25-2023 Op Note [facility] OR [address] [facility] [address] Dept: [phone] Loc: [phone] Operative Report Patient Name: Claribel Stoll Date of : 1955 Date of Surgery: 01/25/23 Pre-operative diagnosis: Right displaced femoral neck fracture Post-operative diagnosis: Same Procedure(s): Cemented hemiarthroplasty of right hip (CPT 60655) Surgeon: Randee Oliver M.D. Channel Lip Wetter(s): Jericho Maradiaga M.D. Anesthesia: General EBL: 50 [...] as well as medical complications such as AK, stroke, PE, DVT, and even . Patient [...] Posterior hip precautions x 6 wks Normal [facility] PROTIME AND APTTon 3 aPTT Coag (Bld) [Time] 26.3 s Normal 20.0-30.5 [facility] Comment on above: Performed By: #### L [id number] ####Home Visits Nurse: NELSY PATEL ([phone])[facility] ([address] INR Coag (PPP) [Relative time] 1.0 {INR} Normal 0.9-1.1 [facility] Comment on above: Result Comment: Shaun [...] prevent Myocardial Infarction Performed By: #### L [id number] ####Home Visits Nurse: NELSY PATEL ([phone])[facility] ([employer])[address] [place] [address] PT Coag (PPP) [Time] 10.7 s Normal 9.0-12.0 [facility] Comment on above: Performed By: #### L [id number] ####Home Visits Nurse: NELSY PATEL ([phone])[facility] ([facility])[address] [place] [address] XR HIP 2 OR 3 VW RIGHTon XR HIP 2 OR 3 VW RIGHT Patient [facility] 1955 [id number] Exam Date/Time: 01/25/2023 10:42 Procedure: XR HIP [...] Signed Date/Time: 01/25/2023 11:48 AM EST Normal [facility] XR Hip - right 3 Viewson [...] MD Electronically Signed Date/Time: 01/25/2023 11:48 AM [facility] Patient Name: CLARIBEL STOLL : 1955 Exam Date/Time: 01/25/2023 10:42 Procedure: XR HIP 2 OR 3 VW RIGHT Ordering Provider: SINGH PALLAVI Reason For Exam: post-op RIGHT HIP: CLINICAL INDICATION: Right hip fracture. Postoperative radiographs. TECHNIQUE: AP view the pelvis, two views right hip COMPARISON: Previous day [facility] Genoveva Calvo MD - 01/25/2023 [...] MD Electronically Signed Date/Time: 01/25/2023 11:48 AM [facility] Radiology Study observation (narrative) [facility] alth XR Hip - right 3 ViewsOrdere d By: Genoveva Calvo on 01-25-2023 [facility] Work Phone: ABO and Rh group Confirm Nom (Bld)on 01-24-2023 ABO group Nom (Bld) AB [facility] D Ag Ql (RBC) Positive [facility] BASIC METABOLIC PANELon 12-0 Anion gap [Moles/Vol] 8 mmol/L Normal 3-13 [facility] Comment on above: Performed By: #### L AB15, [id number], [id number] ####Home Visits Nurse: ASHER MATHEWS ([phone])[facility] ([facility])[address] Calcium [Mass/Vol] 8.9 mg/dL Normal 8.4-10.4 [facility] Comment on above: Performed By: #### L AB15, [id number], [id number] ####Home Visits Nurse: ASHER MATHEWS ([phone])[facility] ([facility])[address] Chloride [Moles/Vol] 105 mmol/L Normal 98-107 [facility] Comment on above: Performed By: #### L AB15, [id number], MGY480 ####Home Visits Nurse: ASHER MATHEWS ([phone])[facility] ([facility])[address] CO2 [Moles/Vol] 25 mmol/L Normal 22-30 [facility] Comment on above: Performed By: #### L AB15, [id number], QED355 ####Home Visits Nurse: ASHER MATHEWS ([phone])[facility] [place] ([facility])[address] [place] [address] [place] Creatinine [Mass/Vol] 0.73 mg/dL Normal 0.52-1.04 [facility] Comment on above: Performed By: #### L AB15, [id number], NEG240 ####Home Visits Nurse: ASHER MATHEWS ([phone])[facility] ([facility])[address] GLOMERULAR FILTRATION RATE ML/MIN/1.73 SQ M.PREDICTED 89.7 mL/min/1.73m*2 Normal >60.0 [facility] Comment on above: Result Comment: Calc ulation based on the Chronic Kidney Disease Epidemiology Collaboration (CKD-EPI) equation refit without adjustment for race Performed By: #### L AB15, CSL366, XIT477 ####Home Visits Nurse: ASHER MATHEWS ([phone])[facility] ([facility])[address] Glucose [Mass/Vol] 116 mg/dL High 70-100 [facility] Comment on above: Performed By: #### L AB15, QDU203, VYC399 ####Home Visits Nurse: ASHER MATHEWS ([phone])[facility] ([facility])[address] Potassium [Moles/Vol] 4.3 mmol/L Normal 3.5-5.1 [facility] Comment on above: Performed By: #### L AB15, VXN393, GXN137 ####Home Visits Nurse: ASHER MATHEWS ([phone])[facility] ([facility])[address] Sodium [Moles/Vol] 137 mmol/L Normal 135-145 [facility] Comment on above: Performed By: #### L AB15, YVK514, XTO721 ####Home Visits Nurse: ASHER MATHEWS ([phone])[facility] ([facility])[address] [place] [address] [place] Urea nitrogen [Mass/Vol] 19 mg/dL High 7-17 [facility] Comment on above: Performed By: #### L AB15, [id number], PED237 ####Home Visits Nurse: ASHER MATHEWS ([phone])[facility] ([facility])[address] BLOOD TYPE AND SCREEN GELon 01-24-2023 ABO GROUPING AB Normal [facility] Comment on above: Performed By: #### L [id number] ####Home Visits Nurse: ASHER JACOBSONBHARTI ([phone])[facility] ([facility])[address] RH TYPE IN BLOOD Positive Normal [facility] alth System [facility] Comment on above: Performed By: #### L [id number] ####Home Visits Nurse: ASHER [facility] ([phone])[facility] ([facility])[address] Basic metabolic 1998 panelon 01-24-2023 Anion gap [Moles/Vol] 8 mmol/L 3 - 13 mmol/L [facility] Calcium [Mass/Vol] 8.9 mg/dL 8.4 - 10. 4 mg/dL [facility] Chloride [Moles/Vol] 105 mmol/L 98 - 10 7 mmol/L [facility] CO2 [Moles/Vol] 25 mmol/L 22 - 30 mmol/L [facility] Creatinine [Mass/Vol] 0.73 mg/dL 0.52 - 1.04 mg/dL [facility] GFR/1.73 sq M.predicted MDRD (S/P/Bld) [Vol rate/Area] 89.7 mL/min/{1.73_m2} - PINF [facility] Comment on above: Calculation based on the Chronic Kidney Disease Epidemiology Collaboration (CKD-EPI) equation refit without adjustment for race Glucose [Mass/Vol] 116 mg/dL High 70 - 100 mg/dL [facility] Interpretation and review of laboratory results Abnormal [facility] Potassium [Moles/Vol] 4.3 mmol/L 3.5 - 5.1 mmol/L [facility] Sodium [Moles/Vol] 137 mmol/L 135 - 145 mmol/L [facility] Urea nitrogen [Mass/Vol] 19 mg/dL High 7 - 17 mg/dL [facility] Blood type and Crossmatch pa ana m (Bld)on 01-24-2023 ABO group Nom (Bld) AB [facility] Blood group antibody screen GEL Ql Negative [facility] D Ag Ql (RBC) Positive [facility] CBC W Auto Differential pane l (Bld)Ordered By: Winston Magana on 01-24-2023 Basophils (Bld) [#/Vol] 0.1 10*3/uL 0.0 - 0.2 10*3/uL [facility] Basophils/100 WBC (Bld) 0.4 % 0.0 - 2.0 % [facility] Eosinophils (Bld) [#/Vol] 0.2 10*3/uL 0.0 - 0.5 10*3/uL [facility] Eosinophils/100 WBC (Bld) 1.5 % 1.0 - 6.0 % [facility] Erythrocyte distribution width (RBC) [Ratio] 14.7 % High 11.5 - 14.5 % [facility] Hematocrit (Bld) [Volume fraction] 35.6 % 35.0 - 47.0 % [facility] Hemoglobin (Bld) [Mass/Vol] 11.3 g/dL Low 11.7 - 16.0 g/dL [facility] Interpretation and review of laboratory results Abnormal [facility] Lymphocytes (Bld) [#/Vol] 1.7 10*3/uL 1.0 - 4.3 10*3/uL [facility] Lymphocytes/100 WBC (Bld) 11.6 % Low 20.0 - 40.0 % [facility] MCH (RBC) [Entitic mass] 27.0 pg 26.0 - 34.0 pg [facility] MCHC (RBC) [Mass/Vol] 31.7 % Low 32.0 - 36.0 % [facility] MCV (RBC) [Entitic vol] 85.2 fL 80.0 - 98.0 fL [facility] Monocytes (Bld) [#/Vol] 1.0 10*3/uL High 0.0 - 0.8 10*3/uL [facility] Monocytes/100 WBC (Bld) 6.6 % 2.0 - 10.0 % [facility] Neutrophils (Bld) [#/Vol] 11.7 10*3/uL High 1.8 - 7.0 10*3/uL [facility] Neutrophils/100 WBC (Bld) 79.9 % 40.0 - 80.0 % [facility] Nucleated RBC/100 WBC (Bld) [Ratio] 0.0 % [facility] Platelet mean volume (Bld) [Entitic vol] 8.3 fL 7.4 - 12.4 fL [facility] Platelets (Bld) [#/Vol] 292 10*3/uL 140 - 440 10*3/uL [facility] RBC (Bld) [#/Vol] 4.18 10*6/uL 3.8 - 5.20 10*6/uL [facility] WBC (Bld) [#/Vol] 14.6 10*3/uL High 3.6 - 10.7 10*3/uL [facility] CBC WITH AUTO DIFFERENTIALon 01-24-2023 Basophils (Bld) [#/Vol] 0.1 10*3/uL Normal 0.0-0.2 [facility] Comment on above: Performed By: #### L [id number] ####Home Visits Nurse: ASHER MATHEWS ([phone])[facility] ([facility])[address] [place] [address] Basophils/100 WBC (Bld) 0.4 % Normal 0.0-2.0 [facility] Comment on above: Performed By: #### L [id number] ####Home Visits Nurse: ASHER MATHEWS ([phone])[facility] (SB[facility])[address] [place] [address] Eosinophils (Bld) [#/Vol] 0.2 10*3/uL Normal 0.0-0.5 [facility] Comment on above: Performed By: #### L [id number] ####Home Visits Nurse: ASHER MATHEWS ([phone])[facility] ([facility])[address] [place] [address] Eosinophils/100 WBC (Bld) 1.5 % Normal 1.0-6.0 [facility] Comment on above: Performed By: #### L [id number] ####Home Visits Nurse: ASHER MATHEWS ([phone])[facility] ([facility])[address] [place] [address] Erythrocyte distribution width (RBC) [Ratio] 14.7 % High 11.5-14.5 [facility] Comment on above: Performed By: #### L [id number] ####Home Visits Nurse: ASHER MATHEWS ([phone])[facility] [place] ([facility])[address] ERYTHROCYTE MEAN CORPUSCULAR HEMOGLOBIN CONCENTRATION (G/DL) BY AUTOMATED 31.7 % Low 32.0-36.0 [facility] Comment on above: Performed By: #### L [id number] ####Home Visits Nurse: ASHRE MATHEWS ([phone])[facility] [place] ([facility])[address] Hematocrit (Bld) [Volume fraction] 35.6 % Normal 35.0-47.0 [facility] Comment on above: Performed By: #### L [id number] ####Home Visits Nurse: ASHER MATHEWS ([phone])[facility]BNEW [facility] (SB[facility])[address] [place] [address] Hemoglobin (Bld) [Mass/Vol] 11.3 g/dL Low 11.7-16.0 [facility] Comment on above: Performed By: #### L [id number] ####Home Visits Nurse: ASHER MATHEWS ([phone])[facility]OSPITALDeborah BARBNEW MEX[facility] (SB[facility])[address] [place] [address] Lymphocytes (Bld) [#/Vol] 1.7 10*3/uL Normal 1.0-4.3 [facility] Comment on above: Performed By: #### L [id number] ####Home Visits Nurse: ASHER MATHEWS ([phone])[facility]PITALDeborah BARBNEW [facility] ([facility])[address] [place] [address] [place] Lymphocytes/100 WBC (Bld) 11.6 % Low 20.0-40.0 [facility] Comment on above: Performed By: #### L [id number] ####Home Visits Nurse: ASHER MATHEWS ([phone])[facility] ([facility])[address] MCH (RBC) [Entitic mass] 27.0 pg Normal 26.0-34.0 [facility] Comment on above: Performed By: #### L [id number] ####Home Visits Nurse: ASHER MATHEWS ([phone])[facility] [place] ([facility])[address] MCV (RBC) [Entitic vol] 85.2 fL Normal 80.0-98.0 [facility] Comment on above: Performed By: #### L [id number] ####Home Visits Nurse: ASHER MATHEWS ([phone])[facility] [place] ([facility])[address] [place] [address] [place] Monocytes (Bld) [#/Vol] 1.0 10*3/uL High 0.0-0.8 [facility] Comment on above: Performed By: #### L [id number] ####Home Visits Nurse: ASHER MATHEWS ([phone])[facility] [place] ([facility])[address] Monocytes/100 WBC (Bld) 6.6 % Normal 2.0-10.0 [facility] Comment on above: Performed By: #### L [id number] ####Home Visits Nurse: ASHER MATHEWS ([phone])[facility] [place] ([facility])[address] [place] [address] [place] Neutrophils (Bld) [#/Vol] 11.7 10*3/uL High 1.8-7.0 [facility] Comment on above: Performed By: #### L [id number] ####Home Visits Nurse: ASHER REID ([phone])[facility] [place] ([facility])[address] Neutrophils/100 WBC (Bld) 79.9 % Normal 40.0-80.0 [facility] Comment on above: Performed By: #### L [id number] ####Home Visits Nurse: ASHERDEREJE MATHEWS ([phone])[facility] [place] ([facility])[address] NRBC (PER 100 WBCS) BY AUTOMATED COUNT 0.0 /100 WBCs Normal 0.0-2.0 [facility] Comment on above: Performed By: #### L [id number] ####Home Visits Nurse: ASHER MATHEWS ([phone])[facility]ITALDeborah [facility] (SB[facility])[address] Platelet mean volume (Bld) [Entitic vol] 8.3 fL Normal 7.4-12.4 [facility] Comment on above: Performed By: #### L [id number] ####Home Visits Nurse: ASHER MATHEWS ([phone])[facility]ITALDeborah CHICK[facility]HA (SBHLAB)[address] Platelets (Bld) [#/Vol] 292 10*3/uL Normal 140-440 [facility] Comment on above: Performed By: #### L [id number] ####Home Visits Nurse: ASHER MATHEWS ([phone])[facility] ([facility])[address] RBC (Bld) [#/Vol] 4.18 10*6/uL Normal 3.8-5.20 [facility] Comment on above: Performed By: #### L [id number] ####Home Visits Nurse: ASHER MATHEWS ([phone])[facility] (SBAB)[address] WBC (Bld) [#/Vol] 14.6 10*3/uL High 3.6-10.7 [facility] Comment on above: Performed By: #### L [id number] ####Home Visits Nurse: ASHER MATHEWS ([phone])[facility] (SBAB)[address] COVID-19, Flu A/B, and RSV C omboon 01-24-2023 Interpretation and review of laboratory results Normal [facility] CT HEAD WO IV CONTRASTon CT HEAD [...] Electronically Signed Date/Time: 01/24/2023 2:09 AM EST Pt came in via [facility] or a hip fracture. Pt fell yesterday morning and had an xray done that showed a r hip fracture. Normal [facility] CT Head WO contraston 2022 No acute intracrania l hemorrhage or territorial infarct. Similar appearance of chronic ischemic findings. Report Dictated on Electronically Signed By: Marin Mack DR Electronically Signed Date/Time: 01/24/2023 2:09 AM [facility] 1955 [id number] Exam Date/Time: 01/24/2023 01:49 Procedure: CT HEAD [...] and mastoid air cells remain well aerated. [facility] Marin Mack MD - 01/24/2023 Patient Name: CLARIBEL STOLL [facility] 1955 [id number] Exam Date/Time: 01/24/2023 01:49 Procedure: CT HEAD [...] DR Electronically Signed Date/Time: 01/24/2023 2:09 AM [facility] Radiology Study observation (narrative) [facility] Consulton 12-02-2023 Consult Ortho Consult Patient: Claribel Stoll Date of : 1955 Acct: [id number] PCP: Morris Carr Date of Admission: 01/24/2023 Date of Service: Pt seen/examined on 01/24/2023 Chief Complaint: Right hip pain History Of Present Illness: 67 y.o. female with PMHx of dementia who presents with right hip pain after a fall from standing. She was sent to the emergency department from her intermediate in [place] she is pleasantly demented on exam and able to answer some but not all questions. Reports right hip pain but otherwise denies pain in extremities. PMH of dementia. Lives in intermediate. Orthopaedic surgery history: -Prior left hip hemiarthroplasty done at [facility] 11/2021 -Known to Dr. Redman for [...] Transportation Needs: N (more content not included)... [facility] ECG 12-LEADon 01-24-2023 ECG 12-LEAD IMPRESSION: Sinus rhythm Compared to ECG 03/05/2018 22:44:19 Sinus tachycardia no longer present Electronically Signed On 01-24-2023 2:07:24 EST by Megha Burden [facility] ED Nursing Noteon 01-24-2023 ED Nursing Note Per previous RN , report called. Pt to [facility]. Pt left approx 1040am with [employer] transport. Altagracia Thapa RN 01/24/23 1045 [facility] ED Nursing Note RN introduced her self. Pt on the monitor, call light in reach. Pt declined needs at this time Altagracia Thapa RN 01/24/23 1013 [facility] ED Nursing Note Physicians ETA 2-3 hours Karen Chavis RN 01/24/23 0635 [facility] ED Nursing Note Bed: 33 Expected date: 01/24/23 Expected time: Means of arrival: Comments: [facility] Karen Chavis RN 01/24/23 0048 [facility] ED Provider Noteon ED Provider Note [facility] ED EMERGENCY DEPARTMENT ENCOUNTER Pt Name: Claribel Stoll Birthdate 1955 Date of evaluation: 01/24/2023 Provider: Megha Burden MD CHIEF COMPLAINT Chief Complaint Patient [...] presents to the emergency department patient from intermediate. Apparently she fell yesterday and x-ray showed [...] test gait. We are confirming with the intermediate if she has had right-sided facial drooping in the past. Reviewing paperwork from intermediate she has a history of facial weakness [...] Neutrophils Relati (more content not included)... Normal [facility] IDNon 01-24-2023 IDN Problem: Knowledge Deficit Goal: Patient/family/caregiv er demonstrates understanding of disease process, treatment plan, medications, and discharge instructions Outcome: Progressing Problem: Potential for Compromised Skin Integrity Goal: Skin Integrity is Maintained or Improved Outcome: Progressing Goal: Nutritional status is improving Outcome: Progressing Normal [facility] Laboratory - Chemistry and C hemistry - challengeon 01-24-2023 TSH Qn 2.271 m[IU]/L [facility] h Troponin I.cardiac [Mass/Vol] ng/mL NINF - 0.034 ng/mL [facility] Laboratory - Coagulationon 1 03-27-2022 PT Coag (Bld) [Time] 10.6 s 9.0 - 12.0 s [facility] Laboratory - Microbiology an d Antimicrobial susceptibilityon 01-24-2023 FLUAV RNA JEANA+probe Ql (Resp) Not detected Not Detected [facility] FLUBV RNA JEANA+probe Ql (Resp) Not detected Not Detected [facility] RSV RNA JEANA+probe Ql (Resp) Not detected Not Detected [facility] SARS-CoV-2 (COVID-19) RNA JEANA+probe Ql (Resp) Not detected Not Detected [facility] alth SARS-CoV-2 (COVID-19) RNA JEANA+probe Ql (Unsp spec) Methodology: real-time, RT-PCR The SARS-CoV-2, Flu A/B, and RSV Combo assay is intended for in vitro diagnostic use under the FDA Emergency Use Authorization (EUA). This test has not been FDA cleared or approved. In compliance with this authorization, please visit www.fda.gov/media/1426 35/download or www.fda.gov/media/1420 36/download to access the applicable information sheets. [facility] No Panel Informationon 01-24 P [place] 75 degrees [facility] MO Interval 146 ms [facility] QRS [place] 72 degrees [facility] QRSD Interval [address] [facility] QT Interval 388 ms [facility] QTC Interval 452 ms [facility] T Wave [place] 64 degrees [facility] Sinus rhythm Compared to ECG 03/05/2018 22:44:19 Sinus tachycardia no longer present Electronically Signed On 01-24-2023 2:07:24 EST by Megha Burden CV Megha Reed MD - 01/24/2023 IMPRESSION: Sinus rhythm Compared to ECG 03/05/2018 22:44:19 Sinus tachycardia no longer present Electronically Signed On 01-24-2023 2:07:24 EST by Megha Burden [facility] PROTHROMBIN TIMEon INR Coag (PPP) [Relative time] 1.0 {INR} Normal 0.9-1.1 [facility] Comment on above: Result Comment: Shaun [...] to prevent Myocardial Infarction Performed By: #### Greg [id number] #### Home Visits Nurse: ASHER MATHEWS ([phone]) [facility] ([facility]) [address] [place] [address] PT Coag (PPP) [Time] 10.6 s Normal 9.0-12.0 [facility] Comment on above: Performed By: #### Greg [id number] #### Home Visits Nurse: ASHER MATHEWS ([phone]) [facility] ([facility]) [address] [place] [address] PT Coag (Bld) [Time]on 01-24 INR Coag (PPP) [Relative time] 1.0 {INR} 0.9 - 1.1 [facility] Comment on above: Recommended Anticoag ulant Therapy: [...] and review of laboratory results Normal [facility] Progress Noteon 01-24-2023 Progress Note Discussed operative [...] MD PGY2 Orthopaedic Surgery 01/24/2023 2:42 PM [facility] SARS-COV-2, FLU A/B, AND RSV COMBOon 01-24-2023 [...] this authorization, please visit www.fda.gov/media/1424 35/download or www.fda.gov/media/1427 36/download to access the applicable information sheets. Normal [facility] Comment on above: Performed By: #### L [id number] #### Home Visits Nurse: ASHER MATHEWS ([phone]) [facility] ([facility]) [address] [place] [address] [place] THYROID STIMULATING HORMONEo n 01-24-2023 THYROID STIMULATING HORMONE 2.271 uIU/mL Normal 0.465-4.680 [facility] Comment on above: Performed By: #### L [id number], [id number], [id number] ####Home Visits Nurse: ASHER MATHEWS ([phone])[facility] [place] [address] TROPONIN Ion 01-24-2023 Troponin I.cardiac [Mass/Vol] ng/mL Normal <0.034 [facility] Comment on above: Result Comment: ELVIA Diaz COMMENTS: Patients with high levels of Biotin oral intake (ie >5 mg/day) may have falsely decreased Troponin levels. Performed By: #### L [id number], [id number], [id number] ####Home Visits Nurse: ASHER MATHEWS ([phone])[facility] ([facility])[address] [place] [address] TSH Qnon 01-24-2023 Interpretation and review of laboratory results Normal [facility] Troponin I.cardiac [Mass/Vol ]on 01-24-2023 Interpretation and review of laboratory results Normal [facility] Patients with high levels of Biotin oral intake (ie >5 mg/day) may have falsely decreased Troponin levels. [facility] Vital signson 01-24-2023 Heart rate 82 /min bpm [facility] XR Chest Single viewon 01-24 No acute consolidati ve process. Report Dictated on Electronically Signed By: Marin Mack DR Electronically Signed Date/Time: 01/24/2023 3:00 AM EST [facility] Patient Name: CLARIBEL STOLL : 1955 Exam Date/Time: 01/24/2023 02:46 Procedure: XR CHEST 1 VIEW Ordering Provider: BURDEN GREGORY Reason For Exam: Cough hypoxia Clinical History: Cough hypoxia Comparison: 03/05/2018 Technique: Single AP radiograph of the chest. Findings: Cardiomediastinal silhouette and pulmonary vasculature are within normal limits. The lungs and pleural spaces are clear. No sizable pneumothorax. Chronic left proximal humeral fracture deformity. [facility] Marin Mack MD - 01/24/2023 Patient Name: [...] DR Electronically Signed Date/Time: 01/24/2023 3:00 AM [facility] Radiology Study observation (narrative) [facility] Kenneth alth XR Femur - right 2 Viewson 1 03-27-2022 FINDINGS/IMPRESSION: Redemonstration of right proximal femur fracture. No other fractures or dislocations seen. Report Dictated on Electronically Signed By: Marin Mack DR Electronically Signed Date/Time: 01/24/2023 5:57 AM [facility] Patient Name: CLARIBEL STOLL : 1955 Exam Date/Time: 01/24/2023 05:51 Procedure: XR FEMUR 2+ VW RIGHT Ordering Provider: GARSIA NARSIMHA Reason For Exam: Operative planning Clinical history: Operative planning COMPARISON: Radiographs from earlier today TECHNIQUE: AP and lateral views of the right femur [facility] Marin Mack MD - 01/24/2023 [...] DR Electronically Signed Date/Time: 01/24/2023 5:57 AM [facility] Radiology Study observation (narrative) [facility] Kenneth alth XR Hip - right 3 Viewson Mildly displaced rig ht proximal femoral neck fracture. Report Dictated on Electronically Signed By: Marin Mack DR Electronically Signed Date/Time: 01/24/2023 1:44 AM EST [facility] [employer] [facility] Patient Name: CLARIBEL STOLL : 1955 [...] with associated foreshortening. Moderate right hip osteoarthrosis. [facility] Marin Mack MD - 01/24/2023 Patient Name: CLARBIEL STOLL : 1955 Exam Date/Time: 01/24/2023 01:33 [...] Electronically Signed Date/Time: 01/24/2023 1:44 AM EST [facility] Radiology Study observation (narrative) [facility] XR Hip - right 3 ViewsOrdere d By: Marin Mack on 01-24-2023 [employer] Work Phone: Amorphous sediment detection in urine sediment by light microscopyOrdered By: Morris Carr on 01-23-2023 Amorphous sediment LM Ql (Urine sed) 1+ [facility] Basophil percentageOrdered B y: Morris Carr on 01-23-2023 Chloride [Moles/Vol] 110 mmol/L 98-107 [facility] Glucose [Mass/Vol] 86 mg/dL 74-106 [facility] Potassium [Moles/Vol] 3.9 mmol/L 3.5-5.[address] [facility] Sodium [Moles/Vol] 140 mmol/L 136-145 [facility] WBC (Bld) [#/Vol] 7.2 10*3/uL 4.4-11.0 [facility] Basophil percentage 0-5 SEEN /hpf 0-5 [facility] Bilirubin Test strip Ql (U)O rdered By: Morris Carr on 01-23-2023 Bilirubin Ql (U) Negative Negative [facility] Blood erythrocytes count (nu mber/volume)Ordered By: Morris Carr on 01-23-2023 RBC (Bld) [#/Vol] 3.89 10*6/uL 4.2-5.4 [facility] Blood hemoglobin measurement (mass/volume)Ordered By: Morris Carr on 01-23-2023 Hemoglobin (Bld) [Mass/Vol] 10.6 g/dL 12.0-15.0 [facility] Blood platelet mean volumeOr dered By: Morris Carr on 01-23-2023 Platelet mean volume (Bld) [Entitic vol] 10.6 fL 6.2-12.0 [facility] Determination of erythrocyte mean corpuscular volume (MCV)Ordered By: Morris Carr on 01-23-2023 MCV (RBC) [Entitic vol] 91.0 fL 81-99 [facility] Hematocrit Auto (Bld) [Volum e fraction]Ordered By: Morris Carr on 01-23-2023 Hematocrit (Bld) [Volume fraction] 35.4 % 37-47 [facility] Ketones Test strip Ql (U)Ord ered By: Morris Carr on 01-23-2023 Ketones Ql (U) 5 mg/dl Negative [facility] Laboratory - Chemistry and C hemistry - challengeOrdered By: Morris Carr on 01-23-2023 CO2 [Moles/Vol] 29.0 mmol/L 21.0-32.0 [facility] Urea nitrogen/Creatinine [Mass ratio] 16.7 mg/mg 10-20 [facility] Laboratory - Hematology and Cell countsOrdered By: Morris Carr on 01-23-2023 Erythrocyte distribution width (RBC) [Entitic vol] 47.7 fL 35.1-43.9 [facility] Erythrocyte distribution width (RBC) [Ratio] 14.2 % 11.6-14.6 [facility] MCH (RBC) [Entitic mass] 27.2 pg 27.0-32.0 [facility] MCHC Auto (RBC) [Mass/Vol]Or dered By: Morris Carr on 01-23-2023 MCHC (RBC) [Mass/Vol] 29.9 g/dL 32-[address] [facility] Mucus LM Ql (Urine sed)Order ed By: Morris Carr on 01-23-2023 Mucus Ql (Urine sed) 0 SEEN /hpf [facility] Nitrite Test strip Ql (U)Ord ered By: Morris Carr on 01-23-2023 Nitrite Ql (U) Positive Negative [facility] No Panel InformationOrdered By: Morris Carr on 01-23-2023 Estimated GFR (MDRD) Amer 95 mL/min >60 [facility] Comment on above: GFR Calc Estimated GFR (MDRD) Non-Af Amer 78 mL/min >60 [facility] Comment on above: Non- GFR Calc Thyroid Stimulating Hormone (TSH) 2.22 uIU/mL 0.358-3.74 [facility] Platelets bldOrdered By: Deshaun Carr on 01-23-2023 Platelets (Bld) [#/Vol] 307 10*3/uL 150-450 [facility] Protein Test strip Ql (U)Ord ered By: Morris Carr on 01-23-2023 Protein Ql (U) 15 mg/dl Negative [facility] Serum or plasma calcium raul urement (mass/volume)Ordered By: Morris Carr on 01-23-2023 Calcium [Mass/Vol] 8.8 mg/dL 8.5-10.1 [facility] Serum or plasma creatinine m easurement (mass/volume)Ordered By: Morris Carr on 01-23-2023 Creatinine [Mass/Vol] 0.78 mg/dL 0.55-1.[address] [facility] Comment on above: The validity of the calculated GFR & GFRAA in patients over 70 years has not been determined. Clinical correlation is essential. Serum or plasma urea nitroge n measurement (mass/volume)Ordered By: Morris Carr on 01-23-2023 Urea nitrogen [Mass/Vol] 13 mg/dL 7-18 [facility] Squamous epithelial cells de tection in urine sediment by light microscopyOrdered By: Morris Carr on 01-23-2023 Epithelial cells.squamous LM Ql (Urine sed) 0 SEEN /hpf 5-10 [facility] Thin prep Papanicolaou smear with manual screeningOrdered By: Morris Carr on 01-23-2023 Thin prep Papanicolaou smear with manual screening 1 5-15 [facility] Urine blood detectionOrdered By: Morris Carr on 01-23-2023 RBC Ql (U) Negative Negative [facility] RBC Ql (U) 0 SEEN /hpf 0-5 [facility] Urine clarityOrdered By: Deshaun aCrr on 01-23-2023 Clarity (U) Clear Clear [facility] Urine color determinationOrd ered By: Morris Carr on 01-23-2023 Color (U) Yellow Yellow [facility] Urine glucose detectionOrder ed By: Morris Carr on 01-23-2023 Glucose Ql (U) Normal mg/dl Normal [facility] Urine leukocyte esterase det ection by dipstickOrdered By: Morris Carr on 01-23-2023 Leukocyte esterase Test strip Ql (U) 25 /ul Negative [facility] Urine pHOrdered By: Morris paulino on 01-23-2023 pH (U) 6.0 [pH] 5.0 - 8.0 [facility] Urine sediment bacteria coun t by microscopy (number/high power field)Ordered By: Morris Carr on 01-23-2023 Bacteria LM.HPF (Urine sed) [#/Area] 0 /[HPF] None Seen [facility] Urine specific gravity measu rementOrdered By: Morris Carr on 01-23-2023 Specific gravity (U) [Rel density] 1.020 1.002-1.030 [facility] Urobilinogen Auto test strip Ql (U)Ordered By: Morris Carr on 01-23-2023 Urobilinogen Ql (U) 1 mg/dl Normal [facility] Basophil percentageOrdered B y: Morris Carr on 12-04-2022 Chloride [Moles/Vol] 110 mmol/L 98-107 [facility] Glucose [Mass/Vol] 95 mg/dL 74-106 [facility] Potassium [Moles/Vol] 4.0 mmol/L 3.5-5.[address] [facility] Sodium [Moles/Vol] 142 mmol/L 136-145 [facility] Laboratory - Chemistry and C hemistry - challengeOrdered By: Morris Carr on 12-04-2022 CO2 [Moles/Vol] 29.0 mmol/L 21.0-32.0 [facility] Urea nitrogen/Creatinine [Mass ratio] 18.4 mg/mg 10-20 [facility] No Panel InformationOrdered By: Morris Carr on 12-04-2022 Estimated GFR (MDRD) Amer 97 mL/min >60 [facility] Comment on above: GFR Calc Estimated GFR (MDRD) Non-Af Amer 81 mL/min >60 [facility] Comment on above: Non- GFR Calc Serum or plasma calcium arul urement (mass/volume)Ordered By: Morris Carr on 12-04-2022 Calcium [Mass/Vol] 8.5 mg/dL 8.5-10.1 [facility] Serum or plasma creatinine m easurement (mass/volume)Ordered By: Morris Carr on 12-04-2022 Creatinine [Mass/Vol] 0.76 mg/dL 0.55-1.[address] [facility] Comment on above: The validity of the calculated GFR & GFRAA in patients over 70 years has not been determined. Clinical correlation is essential. Serum or plasma urea nitroge n measurement (mass/volume)Ordered By: Morris Carr on 12-04-2022 Urea nitrogen [Mass/Vol] 14 mg/dL 7-18 [facility] Thin prep Papanicolaou smear with manual screeningOrdered By: Morris Carr on 12-04-2022 Thin prep Papanicolaou smear with manual screening 3 5-15 [facility] Basophil percentageOrdered B y: Morris Carr on 12-01-2022 Bilirubin [Mass/Vol] 0.40 mg/dL 0.20-1.00 [facility] Comment on above: For patients on eltr ombopag therapy, use of [place] TBIL is not recommended. Chloride [Moles/Vol] 107 mmol/L 98-107 [facility] Cholesterol [Mass/Vol] 121 mg/dL <200 [facility] Comment on above: <200 mg/dL Desirable 200-240 mg/dL Borderline >240 mg/dL High Risk Glucose [Mass/Vol] 87 mg/dL 74-106 [facility] Potassium [Moles/Vol] 3.8 mmol/L 3.5-5.[address] [facility] Protein [Mass/Vol] 7.1 g/dL 6.4-8.2 [facility] Sodium [Moles/Vol] 140 mmol/L 136-145 [facility] Triglyceride [Mass/Vol] 49 mg/dL <199 [facility] Comment on above: The drugs N-Acetylcy steine and Metamizole may falsely depress this assay.Serum Triglycerides Reference Interval Normal <150 mg/dL Borderline high 150 - 199 mg/dL High 200 - 499 mg/dL Very High > or = 500 mg/dL Direct bilirubinOrdered By: Morris Carr on 12-01-2022 Bilirubin.direct [Mass/Vol] 0.16 mg/dL 0.00-0.30 [facility] Laboratory - Chemistry and C hemistry - challengeOrdered By: Morris Carr on 12-01-2022 ALP [Catalytic activity/Vol] 85 U/L 45-117 [facility] ALT [Catalytic activity/Vol] 11 U/L 13-56 [facility] CO2 [Moles/Vol] 27.0 mmol/L 21.0-32.0 [facility] Globulin (S) [Mass/Vol] 3.9 g/dL 2.2-4.2 [facility] Urea nitrogen/Creatinine [Mass ratio] 16.0 mg/mg 10-20 [facility] No Panel InformationOrdered By: Morris Carr on 12-01-2022 Estimated GFR (MDRD) Amer 90 mL/min >60 [facility] Comment on above: GFR Calc Estimated GFR (MDRD) Non-Af Amer 74 mL/min >60 [facility] Comment on above: Non- GFR Calc Serum or plasma albumin arul urement (mass/volume)Ordered By: Morris Carr on 12-01-2022 Albumin [Mass/Vol] 3.2 g/dL 3.2-5.0 [facility] Serum or plasma calcium raul urement (mass/volume)Ordered By: Morris Carr on 12-01-2022 Calcium [Mass/Vol] 8.7 mg/dL 8.5-10.1 [facility] Serum or plasma cholesterol in HDL measurement (mass/volume)Ordered By: Morris Carr on 12-01-2022 Cholesterol in HDL [Mass/Vol] 64 mg/dL >40 [facility] Comment on above: The drugs N-Acetylcy steine and Metamizole may falsely depress this assay. Reference Range HDL <40 mg/dL Low HDL Cholesterol HDL >or= 60 mg/dL High HDL Cholesterol Serum or plasma cholesterol in VLDL measurement (mass/volume)Ordered By: Morris Carr on 12-01-2022 Cholesterol in VLDL [Mass/Vol] 10 mg/dL 5-40 [facility] Serum or plasma creatinine m easurement (mass/volume)Ordered By: Morris Carr on 12-01-2022 Creatinine [Mass/Vol] 0.81 mg/dL 0.55-1.[address] [facility] Comment on above: The validity of the calculated GFR & GFRAA in patients over 70 years has not been determined. Clinical correlation is essential. Serum or plasma low density lipoprotein (LDL) cholesterol measurement (mass/volume)Ordered By: Morris Carr on 12-01-2022 Cholesterol in LDL [Mass/Vol] 47 mg/dL 0-130 [facility] Serum or plasma urea nitroge n measurement (mass/volume)Ordered By: Morris Carr on 12-01-2022 Urea nitrogen [Mass/Vol] 13 mg/dL 7-18 [facility] Thin prep Papanicolaou smear with manual screeningOrdered By: Morris Carr on 12-01-2022 Thin prep Papanicolaou smear with manual screening 8 U/L 15-37 [facility] Thin prep Papanicolaou smear with manual screening 6 5-15 [facility] CNOVon 01-27-2022 [facility] Office Visit ([id number] ) CLARIBEL STOLL ([id number]) 1955 F Date Time Provider Department 01/27/22 [...] has been working on ambulation at the intermediate. REVIEW OF SYSTEMS: MUSCULOSKELETAL: Negative for joint [...] Take 500 mg by mouth twice daily. dcfbdq-iflcmpfa-ecxwvn e (CREON 6) 6,000-19,000 -30,000 unit delayed [...] encounter [S72.012D] Order(s):XR HIP 2V AP/LAT LEFT (AK,FL,DC) [[id number]] Order #: [id number] Prescriptions as of 01/27/2022 - calcium polycarbophil [...] 500 mg by mouth twice daily. - hhdwra-lufmjvyx-yujzxk e (CREON 6) 6,000-19,000 -30,000 unit delayed [...] percentageon 2021 Chloride [Moles/Vol] 108 mmol/L 98-107 [facility] Work Phone: Glucose [Mass/Vol] 100 mg/dL 74-106 [facility] Work Phone: Comment on above: Fasting Glucose resu lt from 100 to 125 mg/dL suggests IMPAIRED HOMEOSTASIS per A.D.A. criteria. Potassium [Moles/Vol] 4.3 mmol/L 3.5-5.[address] [facility] Work Phone: Sodium [Moles/Vol] 141 mmol/L 136-145 [facility] Work Phone: Laboratory - Chemistry and C hemistry - challengeon 01-10-2022 CO2 [Moles/Vol] 28.0 mmol/L 21.0-32.0 [facility] Work Phone: Urea nitrogen/Creatinine [Mass ratio] 15.4 mg/mg 10-20 [facility] Work Phone: No Panel Informationon 01-10 Estimated GFR (MDRD) Amer 105 mL/min >60 [facility] Work Phone: Comment on above: GFR Calc Estimated GFR (MDRD) Non-Af Amer 87 mL/min >60 [facility] Work Phone: Comment on above: Non- GFR Calc Serum or plasma calcium raul urement (mass/volume)on 01-10-2022 Calcium [Mass/Vol] 9.1 mg/dL 8.5-10.1 [facility] Work Phone: Serum or plasma creatinine m easurement (mass/volume)on 01-10-2022 Creatinine [Mass/Vol] 0.72 mg/dL 0.55-1.[address] [facility] Work Phone: Comment on above: The validity of the calculated GFR & GFRAA in patients over 70 years has not been determined. Clinical correlation is essential. Serum or plasma urea nitroge n measurement (mass/volume)on 01-10-2022 Urea nitrogen [Mass/Vol] 11 mg/dL 7-18 [facility] Work Phone: Thin prep Papanicolaou smear with manual screeningon 01-10-2022 Thin prep Papanicolaou smear with manual screening 5 5-15 [facility] Work Phone: Basophil percentageon 2021 Chloride [Moles/Vol] 103 mmol/L 98-107 [facility] Work Phone: [phone] Cholesterol [Mass/Vol] mg/dL <200 [facility] Work Phone: [phone] Comment on above: <200 mg/dL Desirable 200-240 mg/dL Borderline >240 mg/dL High Risk Glucose [Mass/Vol] 104 mg/dL 74-106 [facility] Work Phone: [phone] Comment on above: Fasting Glucose resu lt from 100 to 125 mg/dL suggests IMPAIRED HOMEOSTASIS per A.D.A. criteria. Potassium [Moles/Vol] 4.4 mmol/L 3.5-5.[address] [facility] Work Phone: [phone] Sodium [Moles/Vol] 138 mmol/L 136-145 [facility] Work Phone: [phone] Triglyceride [Mass/Vol] 128 mg/dL <199 [facility] Work Phone: [phone] Comment on above: The drugs N-Acetylcy steine and Metamizole may falsely depress this assay.Serum Triglycerides Reference Interval Normal <150 mg/dL Borderline high 150 - 199 mg/dL High 200 - 499 mg/dL Very High > or = 500 mg/dL WBC (Bld) [#/Vol] 12.0 10*3/uL 4.4-11.0 [facility] Work Phone: [phone] Blood erythrocytes count (nu mber/volume)on 12-28-2021 RBC (Bld) [#/Vol] 3.10 10*6/uL 4.2-5.4 [facility] Work Phone: [phone] Blood hemoglobin measurement (mass/volume)on 12-28-2021 Hemoglobin (Bld) [Mass/Vol] 9.0 g/dL 12.0-15.0 [facility] Work Phone: [phone] Blood platelet mean volumeon 12-28-2021 Platelet mean volume (Bld) [Entitic vol] 9.6 fL 6.2-12.0 [facility] Work Phone: [phone] Determination of erythrocyte mean corpuscular volume (MCV)on 12-28-2021 MCV (RBC) [Entitic vol] 94.2 fL 81-99 [facility] Work Phone: [phone] Hematocrit Auto (Bld) [Volum e fraction]on 12-28-2021 Hematocrit (Bld) [Volume fraction] 29.2 % 37-47 [facility] Work Phone: Laboratory - Chemistry and C hemistry - challengeon 12-28-2021 CO2 [Moles/Vol] 29.0 mmol/L 21.0-32.0 [facility] Work Phone: [phone] Urea nitrogen/Creatinine [Mass ratio] 16.3 mg/mg 10-20 [facility] Work Phone: [phone] Laboratory - Hematology and Cell countson 12-28-2021 Erythrocyte distribution width (RBC) [Entitic vol] 46.6 fL 35.1-43.9 [facility] Work Phone: [phone] Erythrocyte distribution width (RBC) [Ratio] 13.6 % 11.6-14.6 [facility] Work Phone: [phone] MCH (RBC) [Entitic mass] 29.0 pg 27.0-32.0 [facility] Work Phone: [phone] MCHC Auto (RBC) [Mass/Vol]on 12-28-2021 MCHC (RBC) [Mass/Vol] 30.8 g/dL 32-[address] [facility] Work Phone: No Panel Informationon 12-28 Estimated GFR (MDRD) Amer 46 mL/min >60 [facility] Work Phone: Comment on above: GFR Calc Estimated GFR (MDRD) Non-Af Amer 38 mL/min >60 [facility] Work Phone: [phone] Comment on above: Non- GFR Calc Platelets bldon 12-28-2021 Platelets (Bld) [#/Vol] 590 10*3/uL 150-450 [facility] Work Phone: [phone] Serum or plasma calcium raul urement (mass/volume)on 12-28-2021 Calcium [Mass/Vol] 9.0 mg/dL 8.5-10.1 [facility] Work Phone: [phone] Serum or plasma cholesterol in HDL measurement (mass/volume)on 12-28-2021 Cholesterol in HDL [Mass/Vol] 12 mg/dL >40 [facility] Work Phone: Comment on above: The drugs N-Acetylcy steine and Metamizole may falsely depress this assay. Reference Range HDL <40 mg/dL Low HDL Cholesterol HDL >or= 60 mg/dL High HDL Cholesterol Serum or plasma cholesterol in VLDL measurement (mass/volume)on 12-28-2021 Cholesterol in VLDL [Mass/Vol] 26 mg/dL 5-40 [facility] Work Phone: Serum or plasma creatinine m easurement (mass/volume)on 12-28-2021 Creatinine [Mass/Vol] 1.47 mg/dL 0.55-1.[address] [facility] Work Phone: Comment on above: The validity of the calculated GFR & GFRAA in patients over 70 years has not been determined. Clinical correlation is essential. Serum or plasma low density lipoprotein (LDL) cholesterol measurement (mass/volume)on 12-28-2021 Cholesterol in LDL [Mass/Vol] TNP [facility] Work Phone: Comment on above: Test not performed Serum or plasma urea nitroge n measurement (mass/volume)on 12-28-2021 Urea nitrogen [Mass/Vol] 24 mg/dL 7-18 [facility] Work Phone: Thin prep Papanicolaou smear with manual screeningon 12-28-2021 Thin prep Papanicolaou smear with manual screening 6 5-15 [facility] Work Phone: Basic metabolic 2000 panelon 12-24-2021 Anion gap [Moles/Vol] 10 mmol/L Normal 9-18 [facility] Comment on above: Order Comment: Speci men Type: BLOOD SPECIMENOrdering Facility: [facility] Address: [address] [place] [id number] Performed By: #### 2 4321-2 ####[facility] LABORATORYCLIA [id number] [place] [address] [place] Calcium [Mass/Vol] 9.2 mg/dL Normal 8.5-10.2 [facility] Comment on above: Order Comment: Speci men Type: BLOOD SPECIMENOrdering Facility: [facility] Address: [address] [place] [address] Performed By: #### 2 4321-2 ####[facility] LABORATORYCLIA [id number] [address] STATES OF [facility] Chloride [Moles/Vol] 102 mmol/L Normal 97-105 [facility] Comment on above: Order Comment: Speci men Type: BLOOD SPECIMENOrdering Facility: [facility] Address: [address] [place] [address] Performed By: #### 2 4321-2 ####[facility] LABORATORYCLIA [id number] [address] [place] CO2 [Moles/Vol] 27 mmol/L Normal 22-30 [facility] Comment on above: Order Comment: Speci men Type: BLOOD SPECIMENOrdering Facility: [facility] Address: [address] [place] [address] Performed By: #### 2 4321-2 ####[facility] LABORATORYCLIA [id number] [address] OF [facility] Creatinine [Mass/Vol] 0.85 mg/dL Normal 0.58-0.96 [facility] Comment on above: Order Comment: Speci men Type: BLOOD SPECIMENOrdering Facility: [facility] Address: [address] [place] [address] Performed By: #### 2 4321-2 ####[facility] LABORATORYCLIA [id number] [address] ESTIMATED GLOMERULAR FILTRATION RATE 75 mL/min/1.73m??? Normal >=60 [facility] Comment on above: Order Comment: Speci men Type: BLOOD SPECIMENOrdering Facility: [facility] Address: [address] [place] [address] Result Comment: Jessa mated Glomerular Filtration Rate [...] actual GFR. Performed By: #### 2 4321-2 ####[facility] LABORATORYCLIA [id number] [place] [address] [place] Glucose [Mass/Vol] 96 mg/dL Normal 74-99 [facility] Comment on above: Order Comment: Kinsey herrera Type: BLOOD SPECIMENOrdering Facility: [facility] Address: [address] [place] [address] Result Comment: The [place] Diabetes Association (ADA) provides guidance for cutoff [...] Standards of Medical Care in Diabetes 2016, [place] [employer]. Diabetes Care. 2016.39(Suppl 1). Performed By: #### 2 4321-2 ####[facility] LABORATORYCLIA [id number] [place] [address] [place] Potassium [Moles/Vol] 3.8 mmol/L Normal 3.7-5.1 [facility] Comment on above: Order Comment: Kinsey herrera Type: BLOOD SPECIMENOrdering Facility: [facility] Address: [address] [address] Performed By: #### 2 4321-2 ####[facility] LABORATORYCLIA [id number] [place] [id number] [place] Sodium [Moles/Vol] 139 mmol/L Normal 136-144 [facility] Comment on above: Order Comment: Kinsey herrera Type: BLOOD SPECIMENOrdering Facility: [facility] Address: [address] [place] [address] Performed By: #### 2 4321-2 ####[facility] LABORATORYCLIA [id number] [place] [address] [place] Urea nitrogen [Mass/Vol] 7 mg/dL Normal 7-21 [facility] Comment on above: Order Comment: Speci men Type: BLOOD SPECIMENOrdering Facility: [facility] Address: [address] [place], [place] [address] [address] Performed By: #### 2 4321-2 ####[facility] LABORATORYCLIA [id number] [place] [address] [facility] [place] CASE MANAGEMon 12-24-2021 CASE MANAGEM HNO ID: [id number] Author: AZEB Simeon Service: ? Author Type: Workforce Analyst Type: Care Mgt Progress Note Filed: 12/24/2021 4:30 PM Note Text: CARE MANAGEMENT DISCHARGE NOTE SERVICE DATE: 12/24/2021 SERVICE TIME: 4:22 PM LOS: 11 days Admission Date: 12/13/2021 DISCHARGE ARRANGEMENT (list agency and phone number) Discharge Arrangement: [facility] Facility Was an expedited discharge program used?: No Provider Name: [facility] CAREGIVER ASSESSMENT: Caregiver is ready, willing and able to meet the patient's needs as recommended by the inter-professional team:: Yes Patient's transition needs and plan for meeting these needs: DC return to [facility] HANDOFF COMMUNICATION: Handoff to: Other Caregiver Other Caregiver Name/Phone: [facility] TRANSPORTATION ARRANGEMENTS: Transportation Arrangements: Ambulance Transportation Agency and Phone #:: [facility] ( [facility] ) [phone] / [phone] Date of Trip: 12/24/21 Time of Trip: 1929 Type of Service: BLS Non-emergency Is Patient Medicaid Pending?: No Was transportation financial coverage discussed with family?: Patient;Family Geometrician Location: [facility] Destination: [facility] Financial Care Management Responsibility: None ADDITIONAL CONTACT RESOURCES: CM spoke with Pt's insurance and the SNF this date to confirm that Pt's insurance is [employer] and is able to return to [facility] today. CM left message for Pt's family, Garry and Missy. There are no dc concerns. Transport arranged for 1930. DC paperwork attached to careport. Bedside nurse updated. DC packet with chart. SIGNATURE: AZEB Simeon PATIENT NAME: Claribel Stoll DATE: December 24, 2021 TIME: 4:22 PM PAGER/CONTACT #: [phone] Normal [facility] CBC W Auto Differential pane l (Bld)on 12-24-2021 Basophils (Bld) [#/Vol] 0.09 10*3/uL Normal <0.11 [facility] Comment on above: Order Comment: Speci men Type: BLOOD SPECIMEN [facility]ing [facility]: [facility] Address: [address] [place] [address] Performed By: #### T SCR #### [facility] CLIA [id number] [address] Basophils/100 WBC (Bld) 0.7 % Normal A [facility] Comment on above: Order Comment: Speci men Type: BLOOD SPECIMEN Ordering Facility: [facility] Address: [address] [place] [address] Performed By: #### T SCR #### [facility] CLIA [id number] [address] Differential cell count method Nom (Bld) Auto Normal [facility] Comment on above: Order Comment: Speci men Type: BLOOD SPECIMEN Ordering Facility: [facility] Address: [address] [place] [address] Performed By: #### T SCR #### [facility] CLIA [id number] [address] [place] Eosinophils (Bld) [#/Vol] 0.40 10*3/uL Normal <0.46 [facility] Comment on above: Order Comment: Speci men Type: BLOOD SPECIMEN Ordering Facility: [facility] Address: [address] [place] [address] Performed By: #### T SCR #### [facility] CLIA [id number] [address] [place] [address] [place] Eosinophils/100 WBC (Bld) 3.1 % Normal [facility] Comment on above: Order Comment: Speci men Type: BLOOD SPECIMEN Ordering Facility: [facility] Address: [facility] [place] [address] Performed By: #### T SCR #### [facility] CLIA [id number] [address] [place] Erythrocyte distribution width (RBC) [Ratio] 13.8 % Normal 11.5-15.0 [facility] Comment on above: Order Comment: Speci men Type: BLOOD SPECIMEN Ordering Facility: [facility] Address: [address] [place] [address] Performed By: #### T SCR #### [facility] CLIA [id number] [address] [place] Hematocrit (Bld) [Volume fraction] 31.7 % Low 36.0-46.0 [facility] Comment on above: Order Comment: Speci men Type: BLOOD SPECIMEN Ordering Facility: [facility] Address: [address] [place] [address] Performed By: #### T SCR #### [facility] CLIA [id number] [address] [place] Hemoglobin (Bld) [Mass/Vol] 9.8 g/dL Low 11.5-15.5 [facility] Comment on above: Order Comment: Speci men Type: BLOOD SPECIMEN Ordering Facility: [facility] Address: [address] [address] Performed By: #### T SCR #### [facility] CLIA [id number] [address] [place] Immature granulocytes (Bld) [#/Vol] 0.23 10*3/uL High <0.10 [facility] Comment on above: Order Comment: Speci men Type: BLOOD SPECIMEN Ordering Facility: [facility] Address: [address] [place] [address] Performed By: #### T SCR #### [facility] CLIA [id number] [address] Immature granulocytes/100 WBC (Bld) 1.8 % Normal [facility] Comment on above: Order Comment: Speci men Type: BLOOD SPECIMEN Ordering Facility: [facility] Address: [address] [place] [address] Performed By: #### T SCR #### [facility] CLIA [id number] [address] [place] Lymphocytes (Bld) [#/Vol] 4.60 10*3/uL High 1.00-4.00 [facility] Comment on above: Order Comment: Speci men Type: BLOOD SPECIMEN Ordering Facility: [facility] Address: [address] [place] [address] Performed By: #### T SCR #### [facility] CLIA [id number] [address] Lymphocytes/100 WBC (Bld) 35.2 % Normal [facility] Comment on above: Order Comment: Speci men Type: BLOOD SPECIMEN Ordering Facility: [facility] Address: [address] [place] [address] Performed By: #### T SCR #### [facility] CLIA [id number] [address] MCH (RBC) [Entitic mass] 29.0 pg Normal 26.0-34.0 [facility] Comment on above: Order Comment: Speci men Type: BLOOD SPECIMEN Ordering Facility: [facility] Address: [address] [place] [address] Performed By: #### T SCR #### [facility] CLIA [id number] [address] MCHC (RBC) [Mass/Vol] 30.9 g/dL Normal 30.5-36.0 [facility] Comment on above: Order Comment: Speci men Type: BLOOD SPECIMEN Ordering Facility: [facility] Address: [address] [address] Performed By: #### T SCR #### [facility] CLIA [id number] [address] [place] MCV (RBC) [Entitic vol] 93.8 fL Normal 80.0-100.0 A [facility] Comment on above: Order Comment: Speci men Type: BLOOD SPECIMEN Ordering Facility: [facility] Address: [address] [place] [address] Performed By: #### T SCR #### [facility] CLIA [id number] [address] [place] Monocytes (Bld) [#/Vol] 1.21 10*3/uL High <0.87 [facility] Comment on above: Order Comment: Speci men Type: BLOOD SPECIMEN Ordering Facility: [facility] Address: [address] [place] [address] Performed By: #### T SCR #### [facility] CLIA [id number] [address] Monocytes/100 WBC (Bld) 9.3 % Normal A [facility] Comment on above: Order Comment: Speci men Type: BLOOD SPECIMEN Ordering Facility: [facility] Address: [address] [place] [address] Performed By: #### T SCR #### [facility] CLIA [id number] [address] [place] Neutrophils (Bld) [#/Vol] 6.53 10*3/uL Normal 1.45-7.50 [facility] Comment on above: Order Comment: Speci men Type: BLOOD SPECIMEN Ordering Facility: [facility] Address: [address] [place] [address] Performed By: #### T SCR #### [facility] CLIA [id number] [address] [place] Neutrophils/100 WBC (Bld) 49.9 % Normal [facility] Comment on above: Order Comment: Speci men Type: BLOOD SPECIMEN Ordering Facility: [facility] Address: [address] [address] Performed By: #### T SCR #### [facility] CLIA [id number] [address] Nucleated RBC (Bld) [#/Vol] 0.03 10*3/uL High <0.01 [facility] Comment on above: Order Comment: Speci men Type: BLOOD SPECIMEN Ordering Facility: [facility] Address: [address] [address] Performed By: #### T SCR #### [facility] CLIA [id number] [address] Nucleated RBC/100 WBC (Bld) [Ratio] 0.2 /100 WBC Normal [facility] Comment on above: Order Comment: Speci men Type: BLOOD SPECIMEN Ordering Facility: [facility] Address: [address] [place] [address] Performed By: #### T SCR #### [facility] CLIA [id number] [address] STATES [facility] Platelet mean volume (Bld) [Entitic vol] 8.7 fL Low 9.0-12.7 [facility] Comment on above: Order Comment: Speci men Type: BLOOD SPECIMEN Ordering Facility: [facility] Address: [address] Performed By: #### T SCR #### [facility] CLIA [id number] [address] [place] Platelets (Bld) [#/Vol] 557 10*3/uL High 150-400 [facility] Comment on above: Order Comment: Speci men Type: BLOOD SPECIMEN Ordering Facility: [facility] Address: [address] [place] [address] Performed By: #### T SCR #### [facility] CLIA [id number] [address] [place] RBC (Bld) [#/Vol] 3.38 10*6/uL Low 3.90-5.20 [facility] Comment on above: Order Comment: Kinsey herrera Type: BLOOD SPECIMEN Ordering Facility: [facility] Address: [address] [place], [place] [address] Performed By: #### T SCR #### [facility] CLIA [id number] [address] WBC (Bld) [#/Vol] 13.06 10*3/uL High 3.70-11.00 [facility] Comment on above: Order Comment: Kinsey herrera Type: BLOOD SPECIMEN Ordering Facility: [facility] Address: [address] [place] [address] Performed By: #### T SCR #### [facility] CLIA [id number] [address] CNDSon 12-24-2021 [facility]DS HNO ID: [id number] Author: Jocelyne Melton APRN.ASSISTANT CHIEF ENGINEER Service: Orthopaedic Surgery Author Type: Nurse Practitioner Type: Discharge Summary Filed: 12/24/2021 2:20 PM Note Text: Attestation signed by Yasmany Roman MD at 12/24/2021 3:52 PM Attending Note I personally saw and examined the patient. I reviewed the resident's note. I agree with the resident's assessment and plan unless otherwise noted. Signature: Yasmnay Roman MD Date: 12/24/2021 Time: 3:52 PM [...] AND MEDICAL TEAM: [facility] Doctor: Yamsany Roman MD Primary Care Provider: No primary [...] up appointment with Discharge Disposition Discharge Disposition: [facility] Facility - Less than 30 Days Activity When You Leave the Hospital Other: Weight bearing as tolerated left lower extremity Diet Instructions Resume your pre-hospital diet For Pain When You Leave the Hospital Continue taking previously prescribed pain medications as directed If you become constipated, you may use any mdbp-tll-macbywy treatment such as Milk of Magnesia, Sennakot, Prune Juice, Suppositories, etc. in addition to the stool softener/fiber supplement No alcohol or driving while on pain medication Use acetaminophen (Tylenol) as recommended on the bottle Use ibuprofen (Motrin, Advil) as recommended on the bottle Use the dispensed medication (see prescription) You should use an bsfm-wwx-ootygxp stool softener (Docusate sodium) and/or a fiber [...] 101F FOLLOW-UP APPOINTMENTS ALREADY SCHEDULED WITH A [facility] PROVIDER: No future appointments. ALLERGIES No Known Allergies DISCHARGE MEDICATION: Current Discharge Medication List START taking these medications oxyCODONE IR (ROXICODONE) 5 mg Take 5 mg by mouth every 6 hours as needed. Qty: 4 tablet Refills: 0 Associated Diagnoses:Closed fracture of neck of left femur, initial encounter ([facility]) CONTINUE these medications which have NOT CHANGED [...] Take 500 mg by mouth twice daily. mlitlb-luucxoaw-bjvbnv e (CREON 6) 6,000-19,000 -30,000 unit delayed release capsule Take by mouth twice daily with meals. Please administer with snacks- and with snacks 3xday (more content not included)... Normal [facility] SARS-CoV-2 RNA Resp Ql JEANA+p madelynabida 12-24-2021 SARS-CoV-2 (COVID-19) RNA JENAA+probe Ql (Resp) COVID 19 RESULT: SARS-CoV-2 (Agent of COVID-19) Not Detected by RT-PCR or equivalent method. This test has been authorized by FDA under an Emergency Use Authorization (EUA). Normal [facility] Comment on above: Performed By: #### 9 4500-6 ####[facility] LABORATORYCLIA [id number] [place] [address] [place] THERAPY NTon 12-24-2021 THERAPY NT HNO ID: [id number] Author: Jesus Enrique PTA Service: Physical Therapy Author Type: Relationship Associate Type: Therapy (PT/OT/Speech/Resp) Filed: 12/24/2021 2:25 PM Note Text: Attestation signed by Romero Harley PT at 12/24/2021 3:52 PM I reviewed and agree with the documentation corresponding to this therapy visit. SIGNATURE: Romero Harley PT DATE: December 24, 2021 TIME: 3:52 PM Physical Therapy Treatment SERVICE DATE: 12/24/2021 SERVICE TIME: 1351 to 1414 ROOM: [place] [address] Recommended Discharge Disposition: Subacute/SNF Recommended Discharge Disposition [...] historian, per chart review patient is from [facility]. Patient reports using walker and does her [...] gap [Moles/Vol] 10 mmol/L Normal 9-18 [facility] Comment on above: Order Comment: Speci men Type: BLOOD SPECIMENOrdering Facility: [facility] Address: [address] [place] [address] Performed By: #### 2 4321-2 ####[facility] LABORATORYCLIA [id number] [place] [address] [place] Calcium [Mass/Vol] 9.0 mg/dL Normal 8.5-10.2 [facility] Comment on above: Order Comment: Speci men Type: BLOOD SPECIMENOrdering Facility: [facility] Address: [address] [place] [address] Performed By: #### 2 4321-2 ####[facility] LABORATORYCLIA [id number] [place] [address] [place] Chloride [Moles/Vol] 102 mmol/L Normal 97-105 [facility] Comment on above: Order Comment: Speci men Type: BLOOD SPECIMENOrdering Facility: [facility] Address: [address] [place] [address] Performed By: #### 2 4321-2 ####[facility] LABORATORYCLIA [id number] [place] [address] [place] CO2 [Moles/Vol] 26 mmol/L Normal 22-30 [facility] Comment on above: Order Comment: Kinsey herrera Type: BLOOD SPECIMENOrdering Facility: [facility] Address: [address] [address] Performed By: #### 2 4321-2 ####[facility]ALSCL[facility] [id number] [address] OF [facility] Creatinine [Mass/Vol] 0.91 mg/dL Normal 0.58-0.96 [facility] Comment on above: Order Comment: Kinsey herrera Type: BLOOD SPECIMENOrdering Facility: [facility] Address: [address] [address] Performed By: #### 2 4321-2 ####[facility] [place] [id number] [address] ESTIMATED GLOMERULAR FILTRATION RATE 69 mL/min/1.73m??? Normal >=60 [facility] Comment on above: Order Comment: Kinsey herrera Type: BLOOD SPECIMENOrdering Facility: [facility] Address: [address] [place] [address] Result Comment: Jessa mated Glomerular Filtration Rate [...] actual GFR. Performed By: #### 2 4321-2 ####[facility] LABORATORYIA [id number] [address] Glucose [Mass/Vol] 108 mg/dL High 74-99 [facility] Comment on above: Order Comment: Kinsey herrera Type: BLOOD SPECIMENOrdering Facility: [facility] Address: [address] [place] [address] Result Comment: The [place] [employer] (ADA) provides guidance for cutoff [...] Standards of Medical Care in Diabetes 2016, [employer]. Diabetes Care. 2016.39(Suppl 1). Performed By: #### 2 4321-2 ####[facility] LABORATORYCLIA [id number] [address] OF [facility] Potassium [Moles/Vol] 4.2 mmol/L Normal 3.7-5.1 [facility] Comment on above: Order Comment: Speci men Type: BLOOD SPECIMENOrdering Facility: [facility] Address: [address] [place] [address] Performed By: #### 2 4321-2 ####[facility] LABORATORYCLIA [id number] [address] Sodium [Moles/Vol] 138 mmol/L Normal 136-144 [facility] Comment on above: Order Comment: Speci men Type: BLOOD SPECIMENOrdering Facility: [facility] Address: [address] [place] [address] Performed By: #### 2 4321-2 ####[facility] LABORATORYCLIA [id number] [address] STATES [facility] Urea nitrogen [Mass/Vol] 14 mg/dL Normal 7-21 [facility] Comment on above: Order Comment: Speci men Type: BLOOD SPECIMENOrdering Facility: [facility] Address: [address] [place] [address] Performed By: #### 2 4321-2 ####[facility] LABORATORYCLIA [id number] [address] STATES OF [facility] CBC W Auto Differential pane l (Bld)on 12-23-2021 Basophils (Bld) [#/Vol] 0.09 10*3/uL Normal <0.11 [facility] Comment on above: Order Comment: Speci men Type: BLOOD SPECIMENOrdering Facility: [facility] Address: [address] [place] [address] Performed By: #### 5 7021-8 ####[facility]ORATORYCLIA [id number] [address] Basophils/100 WBC (Bld) 0.6 % Normal A [facility] Comment on above: Order Comment: Speci men Type: BLOOD SPECIMENOrdering Facility: [facility] Address: [address] [place] [address] Performed By: #### 5 7021-8 ####[facility] LABORATORYCLIA [id number] [address] Differential cell count method Nom (Bld) Auto Normal [facility] Comment on above: Order Comment: Speci men Type: BLOOD SPECIMENOrdering Facility: [facility] Address: [address] [place] [address] Performed By: #### 5 7021-8 ####[facility]ORATORYCLIA [id number] [address] STATES OF [facility] Eosinophils (Bld) [#/Vol] 0.28 10*3/uL Normal <0.46 [facility] Comment on above: Order Comment: Speci men Type: BLOOD SPECIMENOrdering Facility: [facility] Address: [address] [place] [address] Performed By: #### 5 7021-8 ####[facility]ORATORYCLIA [id number] [address] Eosinophils/100 WBC (Bld) 2.0 % Normal [facility] Comment on above: Order Comment: Speci men Type: BLOOD SPECIMENOrdering Facility: [facility] Address: [address] [place] [address] Performed By: #### 5 7021-8 ####[facility]ORATORYCLIA [id number] [address] [place] Erythrocyte distribution width (RBC) [Ratio] 13.7 % Normal 11.5-15.0 [facility] Comment on above: Order Comment: Speci men Type: BLOOD SPECIMENOrdering Facility: [facility] Address: [address] [place] [address] Performed By: #### 5 7021-8 ####[facility] LABORATORYCLIA [id number] [address] [place] Hematocrit (Bld) [Volume fraction] 29.0 % Low 36.0-46.0 [facility] Comment on above: Order Comment: Speci men Type: BLOOD SPECIMENOrdering Facility: [facility] Address: [address] [place] [address] Performed By: #### 5 7021-8 ####[facility] LABORATORYCLIA [id number] [address] [place] Hemoglobin (Bld) [Mass/Vol] 9.1 g/dL Low 11.5-15.5 [facility] Comment on above: Order Comment: Speci men Type: BLOOD SPECIMENOrdering Facility: [facility] Address: [address] [place] [address] Performed By: #### 5 7021-8 ####[facility] LABORATORYCLIA [id number] [address] [place] Immature granulocytes (Bld) [#/Vol] 0.21 10*3/uL High <0.10 [facility] Comment on above: Order Comment: Speci men Type: BLOOD SPECIMENOrdering Facility: [facility] Address: [address] [place] [address] Performed By: #### 5 7021-8 ####[facility] LABORATORYCLIA [id number] [address] [place] Immature granulocytes/100 WBC (Bld) 1.5 % Normal [facility] Comment on above: Order Comment: Speci men Type: BLOOD SPECIMENOrdering Facility: [facility] Address: [address] [place] [address] Performed By: #### 5 7021-8 ####[facility] LABORATORYCLIA [id number] [address] [place] Lymphocytes (Bld) [#/Vol] 4.66 10*3/uL High 1.00-4.00 [facility] Comment on above: Order Comment: Speci men Type: BLOOD SPECIMENOrdering Facility: [facility] Address: [address] [place] [address] Performed By: #### 5 7021-8 ####[facility] LABORATORYCLIA [id number] [address] [place] Lymphocytes/100 WBC (Bld) 32.6 % Normal [facility] Comment on above: Order Comment: Speci men Type: BLOOD SPECIMENOrdering Facility: [facility] Address: [address] [place] [address] Performed By: #### 5 7021-8 ####[facility] LABORATORYCLIA [id number] [address] [place] MCH (RBC) [Entitic mass] 29.5 pg Normal 26.0-34.0 [facility] Comment on above: Order Comment: Speci men Type: BLOOD SPECIMENOrdering Facility: [facility] Address: [address] [place] [address] Performed By: #### 5 7021-8 ####[facility] LABORATORYCLIA [id number] [address] [place] MCHC (RBC) [Mass/Vol] 31.4 g/dL Normal 30.5-36.0 [facility] Comment on above: Order Comment: Speci men Type: BLOOD SPECIMENOrdering Facility: [facility] Address: [address] [place] [address] Performed By: #### 5 7021-8 ####[facility] LABORATORYCLIA [id number] [address] STATES [facility] MCV (RBC) [Entitic vol] 94.2 fL Normal 80.0-100.0 [facility] Comment on above: Order Comment: Speci men Type: BLOOD SPECIMENOrdering Facility: [facility] Address: [address] [place] [address] Performed By: #### 5 7021-8 ####[facility] LABORATORYCLIA [id number] [place] [address] [place] Monocytes (Bld) [#/Vol] 1.33 10*3/uL High <0.87 [facility] Comment on above: Order Comment: Speci men Type: BLOOD SPECIMENOrdering Facility: [facility] Address: [address] [place] [address] Performed By: #### 5 7021-8 ####[facility]ORATORYCLIA [id number] [address] [place] Monocytes/100 WBC (Bld) 9.3 % Normal [facility] Comment on above: Order Comment: Speci men Type: BLOOD SPECIMENOrdering Facility: [facility] Address: [address] [place] [address] Performed By: #### 5 7021-8 ####[facility]ORATORYCLIA [id number] [address] [place] Neutrophils (Bld) [#/Vol] 7.71 10*3/uL High 1.45-7.50 [facility] Comment on above: Order Comment: Speci men Type: BLOOD SPECIMENOrdering Facility: [facility] Address: [address] [place] [address] Performed By: #### 5 7021-8 ####[facility]ORATORYCLIA [id number] [address] [place] Neutrophils/100 WBC (Bld) 54.0 % Normal [facility] Comment on above: Order Comment: Speci men Type: BLOOD SPECIMENOrdering Facility: [facility] Address: [address] [place] [address] Performed By: #### 5 7021-8 ####[facility]ORATORYCLIA [id number] [place] [address] [place] Nucleated RBC (Bld) [#/Vol] 0.02 10*3/uL High <0.01 [facility] Comment on above: Order Comment: Speci men Type: BLOOD SPECIMENOrdering Facility: [facility] Address: [address] [address] Performed By: #### 5 7021-8 ####[facility] LABORATORYCLIA [id number] [address] [place] Nucleated RBC/100 WBC (Bld) [Ratio] 0.1 /100 WBC Normal [facility] Comment on above: Order Comment: Speci men Type: BLOOD SPECIMENOrdering Facility: [facility] Address: [address] [address] Performed By: #### 5 7021-8 ####[facility] LABORATORYCLIA [id number] [place] [address] [place] Platelet mean volume (Bld) [Entitic vol] 9.0 fL Normal 9.0-12.7 [facility] Comment on above: Order Comment: Speci men Type: BLOOD SPECIMENOrdering Facility: [facility] Address: [address] [address] Performed By: #### 5 7021-8 ####[facility] LABORATORYCLIA [id number] [place] [address] [place] Platelets (Bld) [#/Vol] 517 10*3/uL High 150-400 [facility] Comment on above: Order Comment: Speci men Type: BLOOD SPECIMENOrdering Facility: [facility] Address: [address] Performed By: #### 5 7021-8 ####[facility] LABORATORYCLIA [id number] [place] [address] [place] RBC (Bld) [#/Vol] 3.08 10*6/uL Low 3.90-5.20 [facility] Comment on above: Order Comment: Speci men Type: BLOOD SPECIMENOrdering Facility: [facility] Address: [address] [place] [address] Performed By: #### 5 7021-8 ####[facility] LABORATORYCLIA [id number] [address] [id number] [place] WBC (Bld) [#/Vol] 14.28 10*3/uL High 3.70-11.00 [facility] Comment on above: Order Comment: Speci men Type: BLOOD SPECIMENOrdering Facility: [facility] Address: [facility] [place] [address] Performed By: #### 5 7021-8 ####[facility] LABORATORYCLIA [id number] [address] [id number] [facility] [place] THERAPY NTon 12-23-2021 THERAPY NT HNO ID: [id number] Author: Jesus Enrique PTA Service: Physical Therapy Author Type: Relationship Associate Type: Therapy (PT/OT/Speech/Resp) Filed: 12/23/2021 12:01 PM Note Text: Attestation signed by Romero Harley PT at 12/23/2021 1:21 PM I reviewed and agree with the documentation corresponding to this therapy visit. SIGNATURE: Romero Harley PT DATE: December 23, 2021 TIME: 1:21 PM Physical Therapy Treatment SERVICE DATE: 12/23/2021 SERVICE TIME: 1129 to 1152 ROOM: [id number] Recommended Discharge Disposition: Subacute/SNF Recommended Discharge Disposition [...] historian, per chart review patient is from [facility]. Patient reports using walker and does her [...] gap [Moles/Vol] 11 mmol/L Normal 9-18 [facility] Comment on above: Order Comment: Speci men Type: BLOOD SPECIMENOrdering Facility: [facility] Address: [address] [place] [address] Performed By: #### 2 4321-2 ####[facility] LABORATORYCLIA [id number] [place] [address] [place] Calcium [Mass/Vol] 9.2 mg/dL Normal 8.5-10.2 [facility] Comment on above: Order Comment: Speci men Type: BLOOD SPECIMENOrdering Facility: [facility] Address: [address] [address] Performed By: #### 2 4321-2 ####[facility] LABORATORYCLIA [id number] [place] [address] [place] Chloride [Moles/Vol] 99 mmol/L Normal 97-105 [facility] Comment on above: Order Comment: Speci men Type: BLOOD SPECIMENOrdering Facility: [facility] Address: [address] [address] Performed By: #### 2 4321-2 ####[facility] LABORATORYCLIA [id number] [address] OF [facility] CO2 [Moles/Vol] 26 mmol/L Normal 22-30 [facility] Comment on above: Order Comment: Speci men Type: BLOOD SPECIMENOrdering Facility: [facility] Address: [address] [address] Performed By: #### 2 4321-2 ####[facility] LABORATORYCLIA [id number] [address] Creatinine [Mass/Vol] 0.87 mg/dL Normal 0.58-0.96 [facility] Comment on above: Order Comment: Speci men Type: BLOOD SPECIMENOrdering Facility: [facility] Address: [address] [place] [address] Performed By: #### 2 4321-2 ####[facility] [id number] [address] ESTIMATED GLOMERULAR FILTRATION RATE 73 mL/min/1.73m??? Normal >=60 [facility] Comment on above: Order Comment: Speci men Type: BLOOD SPECIMENOrdering Facility: [facility] Address: [address] [place] [address] Result Comment: Jessa mated Glomerular Filtration Rate [...] actual GFR. Performed By: #### 2 4321-2 ####[facility] LABORATORYCLIA [id number] [address] Glucose [Mass/Vol] 100 mg/dL High 74-99 [facility] Comment on above: Order Comment: Speci men Type: BLOOD SPECIMENOrdering Facility: [facility] Address: [address] [place] [address] Result Comment: The [place] [employer] Association (ADA) provides guidance for cutoff [...] Standards of Medical Care in Diabetes 2016, [place] [employer]. Diabetes Care. 2016.39(Suppl 1). Performed By: #### 2 4321-2 ####[facility] LABORATORYCLIA [id number] [address] STATES OF [facility] Potassium [Moles/Vol] 4.2 mmol/L Normal 3.7-5.1 [facility] Comment on above: Order Comment: Kinsey herrera Type: BLOOD SPECIMENOrdering Facility: [facility] Address: [address] [address] Performed By: #### 2 4321-2 ####[facility] LABORATORYCLIA [id number] [address] STATES [facility] Sodium [Moles/Vol] 136 mmol/L Normal 136-144 [facility] Comment on above: Order Comment: Kinsey herrera Type: BLOOD SPECIMENOrdering Facility: [facility] Address: [address] [address] Performed By: #### 2 4321-2 ####[facility] LABORATORYCLIA [id number] [address] STATES [facility] Urea nitrogen [Mass/Vol] 15 mg/dL Normal 7-21 [facility] Comment on above: Order Comment: Kinsey herrera Type: BLOOD SPECIMENOrdering Facility: [facility] Address: [address] [address] Performed By: #### 2 4321-2 ####[facility] LABORATORYCLIA [id number] [place] [address] [place] CBC W Auto Differential pane l (Bld)on 12-22-2021 Basophils (Bld) [#/Vol] 0.10 10*3/uL Normal <0.11 [facility] Comment on above: Order Comment: Speci men Type: BLOOD SPECIMENOrdering Facility: [facility] Address: [address] [place] [address] Performed By: #### 5 7021-8 ####[facility]ORATORYCLIA [id number] [address] [place] Basophils/100 WBC (Bld) 0.7 % Normal A [facility] Comment on above: Order Comment: Speci men Type: BLOOD SPECIMENOrdering Facility: [facility] Address: [address] [place] [address] Performed By: #### 5 7021-8 ####[facility]ORATORYCLIA [id number] [address] [place] Differential cell count method Nom (Bld) Auto Normal [facility] Comment on above: Order Comment: Speci men Type: BLOOD SPECIMENOrdering Facility: [facility] Address: [address] [address] Performed By: #### 5 7021-8 ####[facility]ORATORYCLIA [id number] [address] [place] Eosinophils (Bld) [#/Vol] 0.44 10*3/uL Normal <0.46 [facility] Comment on above: Order Comment: Speci men Type: BLOOD SPECIMENOrdering Facility: [facility] Address: [address] [address] Performed By: #### 5 7021-8 ####[facility]ORATORYCLIA [id number] [address] Eosinophils/100 WBC (Bld) 3.2 % Normal [facility] Comment on above: Order Comment: Speci men Type: BLOOD SPECIMENOrdering Facility: [facility] Address: [address] [address] Performed By: #### 5 7021-8 ####[facility]ORATORYCLIA [id number] [address] [place] Erythrocyte distribution width (RBC) [Ratio] 13.9 % Normal 11.5-15.0 [facility] Comment on above: Order Comment: Speci men Type: BLOOD SPECIMENOrdering Facility: [facility] Address: [address] [place] [address] Performed By: #### 5 7021-8 ####[facility] LABORATORYCLIA [id number] [address] [place] Hematocrit (Bld) [Volume fraction] 31.7 % Low 36.0-46.0 [facility] Comment on above: Order Comment: Speci men Type: BLOOD SPECIMENOrdering Facility: [facility] Address: [address] [place] [address] Performed By: #### 5 7021-8 ####[facility] LABORATORYCLIA [id number] [address] [place] Hemoglobin (Bld) [Mass/Vol] 9.9 g/dL Low 11.5-15.5 [facility] Comment on above: Order Comment: Speci men Type: BLOOD SPECIMENOrdering Facility: [facility] Address: [address] [place] [address] Performed By: #### 5 7021-8 ####[facility] LABORATORYCLIA [id number] [address] [place] Immature granulocytes (Bld) [#/Vol] 0.21 10*3/uL High <0.10 [facility] Comment on above: Order Comment: Speci men Type: BLOOD SPECIMENOrdering Facility: [facility] Address: [address] [place] [address] Performed By: #### 5 7021-8 ####[facility] LABORATORYCLIA [id number] [address] [place] Immature granulocytes/100 WBC (Bld) 1.5 % Normal [facility] Comment on above: Order Comment: Speci men Type: BLOOD SPECIMENOrdering Facility: [facility] Address: [address] [address] Performed By: #### 5 7021-8 ####[facility] LABORATORYCLIA [id number] [address] [place] Lymphocytes (Bld) [#/Vol] 4.90 10*3/uL High 1.00-4.00 [facility] Comment on above: Order Comment: Speci men Type: BLOOD SPECIMENOrdering Facility: [facility] Address: [address] [place] [address] Performed By: #### 5 7021-8 ####[facility] LABORATORYCLIA [id number] [address] Lymphocytes/100 WBC (Bld) 35.5 % Normal [facility] Comment on above: Order Comment: Speci men Type: BLOOD SPECIMENOrdering Facility: [facility] Address: [address] [place] [address] Performed By: #### 5 7021-8 ####[facility] LABORATORYCLIA [id number] [address] STATES OF [facility] MCH (RBC) [Entitic mass] 29.1 pg Normal 26.0-34.0 [facility] Comment on above: Order Comment: Speci men Type: BLOOD SPECIMENOrdering Facility: [facility] Address: [address] [place] [address] Performed By: #### 5 7021-8 ####[facility] LABORATORYCLIA [id number] [address] [place] MCHC (RBC) [Mass/Vol] 31.2 g/dL Normal 30.5-36.0 [facility] Comment on above: Order Comment: Speci men Type: BLOOD SPECIMENOrdering Facility: [facility] Address: [address] [place] [address] Performed By: #### 5 7021-8 ####[facility] LABORATORYCLIA [id number] [address] MCV (RBC) [Entitic vol] 93.2 fL Normal 80.0-100.0 A [facility] Comment on above: Order Comment: Speci men Type: BLOOD SPECIMENOrdering Facility: [facility] Address: [address] [place] [address] Performed By: #### 5 7021-8 ####[facility] LABORATORYCLIA [id number] [address] [place] Monocytes (Bld) [#/Vol] 1.24 10*3/uL High <0.87 [facility] Comment on above: Order Comment: Speci men Type: BLOOD SPECIMENOrdering Facility: [facility] Address: [address] [place] [address] Performed By: #### 5 7021-8 ####[facility] LABORATORYCLIA [id number] [address] [place] Monocytes/100 WBC (Bld) 9.0 % Normal A [facility] Comment on above: Order Comment: Speci men Type: BLOOD SPECIMENOrdering Facility: [facility] Address: [address] [place] [address] Performed By: #### 5 7021-8 ####[facility] LABORATORYCLIA [id number] [place] [address] [place] Neutrophils (Bld) [#/Vol] 6.91 10*3/uL Normal 1.45-7.50 [facility] Comment on above: Order Comment: Speci men Type: BLOOD SPECIMENOrdering Facility: [facility] Address: [address] [place] [address] Performed By: #### 5 7021-8 ####[facility]ORATORYCLIA [id number] [address] [place] Neutrophils/100 WBC (Bld) 50.1 % Normal [facility] Comment on above: Order Comment: Speci men Type: BLOOD SPECIMENOrdering Facility: [facility] Address: [address] [place] [address] Performed By: #### 5 7021-8 ####[facility]ORATORYCLIA [id number] [address] [place] Nucleated RBC (Bld) [#/Vol] 0.03 10*3/uL High <0.01 [facility] Comment on above: Order Comment: Speci men Type: BLOOD SPECIMENOrdering Facility: [facility] Address: [address] [place] [address] Performed By: #### 5 7021-8 ####[facility] LABORATORYCLIA [id number] [address] [place] Nucleated RBC/100 WBC (Bld) [Ratio] 0.2 /100 WBC Normal [facility] Comment on above: Order Comment: Speci men Type: BLOOD SPECIMENOrdering Facility: [facility] Address: [address] [place] [address] Performed By: #### 5 7021-8 ####[facility] LABORATORYCLIA [id number] [address] [place] Platelet mean volume (Bld) [Entitic vol] 9.0 fL Normal 9.0-12.7 [facility] Comment on above: Order Comment: Speci men Type: BLOOD SPECIMENOrdering Facility: [facility] Address: [address] [place] [address] Performed By: #### 5 7021-8 ####[facility] LABORATORYCLIA [id number] [address] [place] Platelets (Bld) [#/Vol] 521 10*3/uL High 150-400 [facility] Comment on above: Order Comment: Speci men Type: BLOOD SPECIMENOrdering Facility: [facility] Address: [address] [place] [address] Performed By: #### 5 7021-8 ####[facility] LABORATORYCLIA [id number] [address] [place] RBC (Bld) [#/Vol] 3.40 10*6/uL Low 3.90-5.20 [facility] Comment on above: Order Comment: Speci men Type: BLOOD SPECIMENOrdering Facility: [facility] Address: [address] [place] [address] Performed By: #### 5 7021-8 ####[facility] LABORATORYCLIA [id number] [address] OF [facility] WBC (Bld) [#/Vol] 13.80 10*3/uL High 3.70-11.00 [facility] Comment on above: Order Comment: Speci men Type: BLOOD SPECIMENOrdering Facility: [facility] Address: [place] [address] Performed By: #### 5 7021-8 ####[facility] LABORATORYCLIA [id number] [place] [id number] [facility] THERAPY NTon 12-22-2021 THERAPY NT HNO ID: [id number] Author: Rae Garza PT Service: Physical Therapy Author Type: Physical Therapist Type: Therapy (PT/OT/Speech/Resp) Filed: 12/22/2021 11:28 AM Note Text: Physical Therapy Treatment SERVICE DATE: 12/22/2021 SERVICE TIME: 1046 to 1114 ROOM: [place] [address] Recommended Discharge Disposition: Subacute/SNF Recommended Discharge Disposition [...] historian, per chart review patient is from [facility]. Patient reports using walker and does her [...] gait and mobility-other Interventions Provided: Therapeutic Exercise (30056);Gait Training (24281) Therapeutic Exercise (63802) Treatment Minutes: 16 $ Therapeutic Exercise (79757) Billed Units: 1 unit Exercise Ankle Pumps (number of reps): 15 Quad Sets (number of reps): 15 Glut Sets (number of reps): 15 Heel Slides (number of reps): 15 SAQ (number of reps): 15 Hip Abduction (number of reps): 15 Exercise (more content not included)... Normal [facility] THERAPY NT HNO ID: [id number] Author: ALLEN Cordero/Greg Service: Occupational Therapy Author Type: Occupational Therapist Type: Therapy (PT/OT/Speech/Resp) Filed: 12/22/2021 9:54 AM Note Text: Occupational Therapy Treatment SERVICE DATE: 12/22/2021 SERVICE TIME: 904 to 930 ROOM: [id number] Recommended Discharge Disposition: Subacute/SNF Recommended Discharge Disposition [...] historian, per chart review patient is from [facility]. Patient reports using walker and does her [...] Gait Belt;Wheeled Walker Provided increase time and [id number] verbal direction to sequence self with use [...] gap [Moles/Vol] 12 mmol/L Normal 9-18 [facility] Comment on above: Order Comment: Speci men Type: BLOOD SPECIMENOrdering Facility: [facility] Address: [address] [place] [address] Performed By: #### 2 4321-2 ####[facility] LABORATORYCLIA [id number] [place] [address] [place] Calcium [Mass/Vol] 9.2 mg/dL Normal 8.5-10.2 [facility] Comment on above: Order Comment: Speci men Type: BLOOD SPECIMENOrdering Facility: [facility] Address: [address] [place] [address] Performed By: #### 2 4321-2 ####[facility] LABORATORYCLIA [id number] [place] [address] [place] Chloride [Moles/Vol] 97 mmol/L Normal 97-105 [facility] Comment on above: Order Comment: Speci men Type: BLOOD SPECIMENOrdering Facility: [facility] Address: [address] [place] [address] Performed By: #### 2 4321-2 ####[facility]ORATORYCLIA [id number] [place] [address] [place] CO2 [Moles/Vol] 26 mmol/L Normal 22-30 [facility] Comment on above: Order Comment: Speci men Type: BLOOD SPECIMENOrdering Facility: [facility] Address: [address] [place] [address] Performed By: #### 2 4321-2 ####[facility] LABORATORYCLIA [id number] [place] [address] [place] Creatinine [Mass/Vol] 0.79 mg/dL Normal 0.58-0.96 [facility] Comment on above: Order Comment: Kinsey herrera Type: BLOOD SPECIMENOrdering Facility: [facility] Address: [address] [place] [address] Performed By: #### 2 4321-2 ####[facility] LABORATORYCLIA [id number] [place] [address] [place] ESTIMATED GLOMERULAR FILTRATION RATE 82 mL/min/1.73m??? Normal >=60 [facility] Comment on above: Order Comment: Kinsey herrera Type: BLOOD SPECIMENOrdering Facility: [facility] Address: [address] [place] [address] Result Comment: Jessa mated Glomerular Filtration Rate [...] actual GFR. Performed By: #### 2 4321-2 ####[facility] LABORATORYCLIA [id number] [place] [address] [place] Glucose [Mass/Vol] 108 mg/dL High 74-99 [facility] Comment on above: Order Comment: Kinsey herrera Type: BLOOD SPECIMENOrdering Facility: [facility] Address: [address] [place] [address] Result Comment: The [place] Diabetes [employer] (ADA) provides guidance for cutoff [...] Standards of Medical Care in Diabetes 2016, [place] [employer]. Diabetes Care. 2016.39(Suppl 1). Performed By: #### 2 4321-2 ####[facility]ORATORYCLIA [id number] [place] [address] [place] Potassium [Moles/Vol] 4.0 mmol/L Normal 3.7-5.1 [facility] Comment on above: Order Comment: Speci men Type: BLOOD SPECIMENOrdering Facility: [facility] Address: [address] [place] [address] Performed By: #### 2 4321-2 ####[facility] LABORATORYCLIA [id number] [place] [address] [place] Sodium [Moles/Vol] 135 mmol/L Low 136-144 [facility] Comment on above: Order Comment: Speci men Type: BLOOD SPECIMENOrdering Facility: [facility] Address: [address] [place] [address] Performed By: #### 2 4321-2 ####[facility] LABORATORYCLIA [id number] [address] STATES OF [facility] Urea nitrogen [Mass/Vol] 11 mg/dL Normal 7-21 [facility] Comment on above: Order Comment: Speci men Type: BLOOD SPECIMENOrdering Facility: [facility] Address: [address] [place] [address] Performed By: #### 2 4321-2 ####[facility] LABORATORYCLIA [id number] [place] [address] [place] CBC W Auto Differential pane l (Bld)on 12-21-2021 Basophils (Bld) [#/Vol] 0.07 10*3/uL Normal <0.11 [facility] Comment on above: Order Comment: Speci men Type: BLOOD SPECIMENOrdering Facility: [facility] Address: [address] [place] [address] Performed By: #### 5 7021-8 ####[facility]ORATORYCLIA [id number] [address] [place] Basophils/100 WBC (Bld) 0.6 % Normal [facility] Comment on above: Order Comment: Speci men Type: BLOOD SPECIMENOrdering Facility: [facility] Address: [address] [place] [address] Performed By: #### 5 7021-8 ####[facility]ORATORYCLIA [id number] [address] Differential cell count method Nom (Bld) Auto Normal [facility] Comment on above: Order Comment: Speci men Type: BLOOD SPECIMENOrdering Facility: [facility] Address: [address] [place] [address] Performed By: #### 5 7021-8 ####[facility] LABORATORYCLIA [id number] [address] Eosinophils (Bld) [#/Vol] 0.26 10*3/uL Normal <0.46 [facility] Comment on above: Order Comment: Speci men Type: BLOOD SPECIMENOrdering Facility: [facility] Address: [address] [place] [address] Performed By: #### 5 7021-8 ####[facility] LABORATORYCLIA [id number] [address] Eosinophils/100 WBC (Bld) 2.3 % Normal [facility] Comment on above: Order Comment: Speci men Type: BLOOD SPECIMENOrdering Facility: [facility] Address: [address] [place] [address] Performed By: #### 5 7021-8 ####[facility] LABORATORYCLIA [id number] [address] Erythrocyte distribution width (RBC) [Ratio] 13.9 % Normal 11.5-15.0 [facility] Comment on above: Order Comment: Speci men Type: BLOOD SPECIMENOrdering Facility: [facility] Address: [address] [place] [address] Performed By: #### 5 7021-8 ####[facility] LABORATORYCLIA [id number] [address] Hematocrit (Bld) [Volume fraction] 31.9 % Low 36.0-46.0 [facility] Comment on above: Order Comment: Speci men Type: BLOOD SPECIMENOrdering Facility: [facility] Address: [address] [place] [address] Performed By: #### 5 7021-8 ####[facility] LABORATORYCLIA [id number] [address] [place] Hemoglobin (Bld) [Mass/Vol] 9.9 g/dL Low 11.5-15.5 [facility] Comment on above: Order Comment: Speci men Type: BLOOD SPECIMENOrdering Facility: [facility] Address: [address] [place] [address] Performed By: #### 5 7021-8 ####[facility] LABORATORYCLIA [id number] [address] [place] Immature granulocytes (Bld) [#/Vol] 0.14 10*3/uL High <0.10 [facility] Comment on above: Order Comment: Speci men Type: BLOOD SPECIMENOrdering Facility: [facility] Address: [address] [place] [address] Performed By: #### 5 7021-8 ####[facility] LABORATORYCLIA [id number] [address] [place] Immature granulocytes/100 WBC (Bld) 1.2 % Normal [facility] Comment on above: Order Comment: Speci men Type: BLOOD SPECIMENOrdering Facility: [facility] Address: [address] [place] [address] Performed By: #### 5 7021-8 ####[facility] LABORATORYCLIA [id number] [place] [address] [place] Lymphocytes (Bld) [#/Vol] 2.78 10*3/uL Normal 1.00-4.00 [facility] Comment on above: Order Comment: Speci men Type: BLOOD SPECIMENOrdering Facility: [facility] Address: [address] [place] [address] Performed By: #### 5 7021-8 ####[facility]ATORYCLIA [id number] [address] Lymphocytes/100 WBC (Bld) 24.7 % Normal [facility] Comment on above: Order Comment: Speci men Type: BLOOD SPECIMENOrdering Facility: [facility] Address: [address] [place] [address] Performed By: #### 5 7021-8 ####[facility] LABORATORYCLIA [id number] [address] MCH (RBC) [Entitic mass] 29.1 pg Normal 26.0-34.0 [facility] Comment on above: Order Comment: Speci men Type: BLOOD SPECIMENOrdering Facility: [facility] Address: [address] [place] [address] Performed By: #### 5 7021-8 ####[facility] LABORATORYCLIA [id number] [address] [place] MCHC (RBC) [Mass/Vol] 31.0 g/dL Normal 30.5-36.0 [facility] Comment on above: Order Comment: Speci men Type: BLOOD SPECIMENOrdering Facility: [facility] Address: [address] [place] [address] Performed By: #### 5 7021-8 ####[facility] LABORATORYCLIA [id number] [address] [place] MCV (RBC) [Entitic vol] 93.8 fL Normal 80.0-100.0 [facility] Comment on above: Order Comment: Speci men Type: BLOOD SPECIMENOrdering Facility: [facility] Address: [address] [place] [address] Performed By: #### 5 7021-8 ####[facility] LABORATORYCLIA [id number] [address] Monocytes (Bld) [#/Vol] 0.85 10*3/uL Normal <0.87 [facility] Comment on above: Order Comment: Speci men Type: BLOOD SPECIMENOrdering Facility: [facility] Address: [address] [place] [address] Performed By: #### 5 7021-8 ####[facility]ATORYCLIA [id number] [address] [place] Monocytes/100 WBC (Bld) 7.5 % Normal [facility] Comment on above: Order Comment: Speci men Type: BLOOD SPECIMENOrdering Facility: [facility] Address: [address] [place] [address] Performed By: #### 5 7021-8 ####[facility] LABORATORYCLIA [id number] [place] [address] [place] Neutrophils (Bld) [#/Vol] 7.17 10*3/uL Normal 1.45-7.50 [facility] Comment on above: Order Comment: Speci men Type: BLOOD SPECIMENOrdering Facility: [facility] Address: [address] [place] [address] Performed By: #### 5 7021-8 ####[facility] LABORATORYCLIA [id number] [address] STATES OF [facility] Neutrophils/100 WBC (Bld) 63.7 % Normal [facility] Comment on above: Order Comment: Speci men Type: BLOOD SPECIMENOrdering Facility: [facility] Address: [address] [place] [address] Performed By: #### 5 7021-8 ####[facility]ORATORYCLIA [id number] [place] [address] [place] Nucleated RBC (Bld) [#/Vol] 0.02 10*3/uL High <0.01 [facility] Comment on above: Order Comment: Speci men Type: BLOOD SPECIMENOrdering Facility: [facility] Address: [address] [place] [address] Performed By: #### 5 7021-8 ####[facility]ORATORYCLIA [id number] [address] [place] Nucleated RBC/100 WBC (Bld) [Ratio] 0.2 /100 WBC Normal [facility] Comment on above: Order Comment: Speci men Type: BLOOD SPECIMENOrdering Facility: [facility] Address: [address] [place] [address] Performed By: #### 5 7021-8 ####[facility] LABORATORYCLIA [id number] [address] [place] Platelet mean volume (Bld) [Entitic vol] 9.3 fL Normal 9.0-12.7 [facility] Comment on above: Order Comment: Speci men Type: BLOOD SPECIMENOrdering Facility: [facility] Address: [address] [place] [address] Performed By: #### 5 7021-8 ####[facility] LABORATORYCLIA [id number] [address] [place] Platelets (Bld) [#/Vol] 531 10*3/uL High 150-400 [facility] Comment on above: Order Comment: Speci men Type: BLOOD SPECIMENOrdering Facility: [facility] Address: [address] [place] [address] Performed By: #### 5 7021-8 ####[facility] LABORATORYCLIA [id number] [place] [address] [place] RBC (Bld) [#/Vol] 3.40 10*6/uL Low 3.90-5.20 [facility] Comment on above: Order Comment: Speci men Type: BLOOD SPECIMENOrdering Facility: [facility] Address: [address] Performed By: #### 5 7021-8 ####[facility] LABORATORYCLIA [id number] [address] [place] WBC (Bld) [#/Vol] 11.27 10*3/uL High 3.70-11.00 [facility] Comment on above: Order Comment: Speci men Type: BLOOD SPECIMENOrdering Facility: [facility] Address: [address] [place] [address] Performed By: #### 5 7021-8 ####[facility]ORATORYCLIA [id number] [place] [address] [place] Basic metabolic 2000 panelon 12-20-2021 Anion gap [Moles/Vol] 12 mmol/L Normal 9-18 [facility] Comment on above: Order Comment: Speci men Type: BLOOD SPECIMENOrdering Facility: [facility] Address: [address] [place] [address] Performed By: #### 2 4321-2 ####[facility]ORATORYCLIA [id number] [place] [address] [place] Calcium [Mass/Vol] 9.0 mg/dL Normal 8.5-10.2 [facility] Comment on above: Order Comment: Speci men Type: BLOOD SPECIMENOrdering Facility: [facility] Address: [address] [place] [address] Performed By: #### 2 4321-2 ####[facility] LABORATORYCLIA [id number] [address] [place] Chloride [Moles/Vol] 100 mmol/L Normal 97-105 [facility] Comment on above: Order Comment: Speci men Type: BLOOD SPECIMENOrdering Facility: [facility] Address: [address] [place] [address] Performed By: #### 2 4321-2 ####[facility]ORATORYCLIA [id number] [place] [address] [place] CO2 [Moles/Vol] 27 mmol/L Normal 22-30 [facility] Comment on above: Order Comment: Speci men Type: BLOOD SPECIMENOrdering Facility: [facility] Address: [address] [place] [address] Performed By: #### 2 4321-2 ####[facility] LABORATORYCLIA [id number] [place] [address] [place] Creatinine [Mass/Vol] 0.75 mg/dL Normal 0.58-0.96 [facility] Comment on above: Order Comment: Speci men Type: BLOOD SPECIMENOrdering Facility: [facility] Address: [address] [place] [address] Performed By: #### 2 4321-2 ####[facility]CL[facility] [id number] [address] ESTIMATED GLOMERULAR FILTRATION RATE 87 mL/min/1.73m??? Normal >=60 [facility] Comment on above: Order Comment: Specrodo herrera Type: BLOOD SPECIMENOrdering Facility: [facility] Address: [address] [place] [address] Result Comment: Jessa mated Glomerular Filtration Rate [...] actual GFR. Performed By: #### 2 4321-2 ####[facility] [id number] [place] [address] [place] [facility] Glucose [Mass/Vol] 105 mg/dL High 74-99 [facility] Comment on above: Order Comment: Kinsey herrera Type: BLOOD SPECIMENOrdering Facility: [facility] Address: [address] [place] [address] Result Comment: The [place] Diabetes Association (ADA) provides guidance for cutoff [...] Standards of Medical Care in Diabetes 2016, [place] [employer]. Diabetes Care. 2016.39(Suppl 1). Performed By: #### 2 4321-2 ####[facility] LABORATORYIA [id number] [place] [id number] [place] Potassium [Moles/Vol] 4.2 mmol/L Normal 3.7-5.1 [facility] Comment on above: Order Comment: Speci men Type: BLOOD SPECIMENOrdering Facility: [facility] Address: [address] [place] [address] Performed By: #### 2 4321-2 ####[facility] LABORATORYCLIA [id number] [address] STATES OF [facility] Sodium [Moles/Vol] 139 mmol/L Normal 136-144 [facility] Comment on above: Order Comment: Speci men Type: BLOOD SPECIMENOrdering Facility: [facility] Address: [address] [place] [address] Performed By: #### 2 4321-2 ####[facility] LABORATORYCLIA [id number] [address] [place] Urea nitrogen [Mass/Vol] 12 mg/dL Normal 7-21 [facility] Comment on above: Order Comment: Speci men Type: BLOOD SPECIMENOrdering Facility: [facility] Address: [address] [place] [address] Performed By: #### 2 4321-2 ####[facility] LABORATORYCLIA [id number] [address] [place] CBC W Auto Differential pane l (Bld)on 12-20-2021 Basophils (Bld) [#/Vol] 0.08 10*3/uL Normal <0.11 [facility] Comment on above: Order Comment: Speci men Type: BLOOD SPECIMENOrdering Facility: [facility] Address: [address] [place] [address] Performed By: #### 5 7021-8 ####[facility] LABORATORYCLIA [id number] [address] [place] Basophils/100 WBC (Bld) 0.7 % Normal A [facility] Comment on above: Order Comment: Speci men Type: BLOOD SPECIMENOrdering Facility: [facility] Address: [address] [place] [address] Performed By: #### 5 7021-8 ####[facility] LABORATORYCLIA [id number] [address] Differential cell count method Nom (Bld) Auto Normal [facility] Comment on above: Order Comment: Speci men Type: BLOOD SPECIMENOrdering Facility: [facility] Address: [address] [place] [address] Performed By: #### 5 7021-8 ####[facility] LABORATORYCLIA [id number] [address] Eosinophils (Bld) [#/Vol] 0.37 10*3/uL Normal <0.46 [facility] Comment on above: Order Comment: Speci men Type: BLOOD SPECIMENOrdering Facility: [facility] Address: [address] [place] [address] Performed By: #### 5 7021-8 ####[facility] LABORATORYCLIA [id number] [address] Eosinophils/100 WBC (Bld) 3.5 % Normal [facility] Comment on above: Order Comment: Speci men Type: BLOOD SPECIMENOrdering Facility: [facility] Address: [address] [place] [address] Performed By: #### 5 7021-8 ####[facility] LABORATORYCLIA [id number] [address] Erythrocyte distribution width (RBC) [Ratio] 13.4 % Normal 11.5-15.0 [facility] Comment on above: Order Comment: Speci men Type: BLOOD SPECIMENOrdering Facility: [facility] Address: [address] [place] [address] Performed By: #### 5 7021-8 ####[facility] LABORATORYCLIA [id number] [address] Hematocrit (Bld) [Volume fraction] 27.1 % Low 36.0-46.0 [facility] Comment on above: Order Comment: Speci men Type: BLOOD SPECIMENOrdering Facility: [facility] Address: [address] [place] [address] Performed By: #### 5 7021-8 ####[facility] LABORATORYCLIA [id number] [address] [place] Hemoglobin (Bld) [Mass/Vol] 8.5 g/dL Low 11.5-15.5 [facility] Comment on above: Order Comment: Speci men Type: BLOOD SPECIMENOrdering Facility: [facility] Address: [address] [place] [address] Performed By: #### 5 7021-8 ####[facility] LABORATORYCLIA [id number] [address] [place] Immature granulocytes (Bld) [#/Vol] 0.09 10*3/uL Normal <0.10 [facility] Comment on above: Order Comment: Speci men Type: BLOOD SPECIMENOrdering Facility: [facility] Address: [address] [place] [address] Performed By: #### 5 7021-8 ####[facility] LABORATORYCLIA [id number] [address] Immature granulocytes/100 WBC (Bld) 0.8 % Normal [facility] Comment on above: Order Comment: Speci men Type: BLOOD SPECIMENOrdering Facility: [facility] Address: [address] [place] [address] Performed By: #### 5 7021-8 ####[facility] LABORATORYCLIA [id number] [address] [place] Lymphocytes (Bld) [#/Vol] 3.75 10*3/uL Normal 1.00-4.00 [facility] Comment on above: Order Comment: Speci men Type: BLOOD SPECIMENOrdering Facility: [facility] Address: [address] [place] [address] Performed By: #### 5 7021-8 ####[facility] LABORATORYCLIA [id number] [address] Lymphocytes/100 WBC (Bld) 35.1 % Normal [facility] Comment on above: Order Comment: Speci men Type: BLOOD SPECIMENOrdering Facility: [facility] Address: [address] [place] [address] Performed By: #### 5 7021-8 ####[facility] LABORATORYCLIA [id number] [address] MCH (RBC) [Entitic mass] 29.1 pg Normal 26.0-34.0 [facility] Comment on above: Order Comment: Speci men Type: BLOOD SPECIMENOrdering Facility: [facility] Address: [address] [place] [address] Performed By: #### 5 7021-8 ####[facility] LABORATORYCLIA [id number] [address] MCHC (RBC) [Mass/Vol] 31.4 g/dL Normal 30.5-36.0 [facility] Comment on above: Order Comment: Speci men Type: BLOOD SPECIMENOrdering Facility: [facility] Address: [address] [place] [address] Performed By: #### 5 7021-8 ####[facility] LABORATORYCLIA [id number] [address] MCV (RBC) [Entitic vol] 92.8 fL Normal 80.0-100.0 [facility] Comment on above: Order Comment: Speci men Type: BLOOD SPECIMENOrdering Facility: [facility] Address: [address] [place] [address] Performed By: #### 5 7021-8 ####[facility] LABORATORYCLIA [id number] [address] Monocytes (Bld) [#/Vol] 0.95 10*3/uL High <0.87 [facility] Comment on above: Order Comment: Speci men Type: BLOOD SPECIMENOrdering Facility: [facility] Address: [address] [place] [address] Performed By: #### 5 7021-8 ####[facility] LABORATORYCLIA [id number] [place] [address] [place] Monocytes/100 WBC (Bld) 8.9 % Normal A [facility] Comment on above: Order Comment: Speci men Type: BLOOD SPECIMENOrdering Facility: [facility] Address: [address] [place] [address] Performed By: #### 5 7021-8 ####[facility] LABORATORYCLIA [id number] [place] [address] [place] Neutrophils (Bld) [#/Vol] 5.45 10*3/uL Normal 1.45-7.50 [facility] Comment on above: Order Comment: Speci men Type: BLOOD SPECIMENOrdering Facility: [facility] Address: [address] [place] [address] Performed By: #### 5 7021-8 ####[facility] LABORATORYCLIA [id number] [address] STATES OF [facility] Neutrophils/100 WBC (Bld) 51.0 % Normal [facility] Comment on above: Order Comment: Speci men Type: BLOOD SPECIMENOrdering Facility: [facility] Address: [address] [place] [address] Performed By: #### 5 7021-8 ####[facility] LABORATORYCLIA [id number] [place] [address] [place] Nucleated RBC (Bld) [#/Vol] 0.02 10*3/uL High <0.01 [facility] Comment on above: Order Comment: Speci men Type: BLOOD SPECIMENOrdering Facility: [facility] Address: [address] [place] [address] Performed By: #### 5 7021-8 ####[facility] LABORATORYCLIA [id number] [address] [place] Nucleated RBC/100 WBC (Bld) [Ratio] 0.2 /100 WBC Normal [facility] Comment on above: Order Comment: Speci men Type: BLOOD SPECIMENOrdering Facility: [facility] Address: [address] [place] [address] Performed By: #### 5 7021-8 ####[facility] LABORATORYCLIA [id number] [address] Platelet mean volume (Bld) [Entitic vol] 9.2 fL Normal 9.0-12.7 [facility] Comment on above: Order Comment: Speci men Type: BLOOD SPECIMENOrdering Facility: [facility] Address: [address] [place] [address] Performed By: #### 5 7021-8 ####[facility] LABORATORYCLIA [id number] [address] [place] Platelets (Bld) [#/Vol] 419 10*3/uL High 150-400 [facility] Comment on above: Order Comment: Speci men Type: BLOOD SPECIMENOrdering Facility: [facility] Address: [address] [place] [address] Performed By: #### 5 7021-8 ####[facility] LABORATORYCLIA [id number] [address] [place] RBC (Bld) [#/Vol] 2.92 10*6/uL Low 3.90-5.20 [facility] Comment on above: Order Comment: Speci men Type: BLOOD SPECIMENOrdering Facility: [facility] Address: [address] [place], [place] [address] Performed By: #### 5 7021-8 ####[facility] LABORATORYCLIA [id number] [address] [place] WBC (Bld) [#/Vol] 10.69 10*3/uL Normal 3.70-11.00 [facility] Comment on above: Order Comment: Speci men Type: BLOOD SPECIMENOrdering Facility: [facility] Address: [address] [place] [address] Performed By: #### 5 7021-8 ####[facility] [id number] [place] [address] [place] [facility] THERAPY NTon 12-20-2021 THERAPY NT HNO ID: [id number] Author: Jesus Enrique PTA Service: Physical Therapy Author Type: Relationship Associate Type: Therapy (PT/OT/Speech/Resp) Filed: 12/20/2021 3:02 PM Note Text: Attestation signed by Mariza Joshua PT at 12/22/2021 4:16 PM I reviewed and agree with the documentation corresponding to this therapy visit. SIGNATURE: Mariza Joshua PT DATE: December 22, 2021 TIME: 4:16 PM Physical Therapy Treatment SERVICE DATE: 12/20/2021 SERVICE TIME: 1429 to 1453 ROOM: [place] [address] Recommended Discharge Disposition: Subacute/SNF Recommended Discharge Disposition [...] historian, per chart review patient is from [facility]. 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 Stairs Curb Step [...] [facility] THERAPY NT HNO ID: [id number] Author: Jeanette Dale OTR/L Service: Occupational Therapy Author Type: Occupational Therapist Type: Therapy (PT/OT/Speech/Resp) Filed: 12/20/2021 12:08 PM Note Text: Occupational Therapy Treatment SERVICE DATE: 12/20/2021 SERVICE TIME: 1100 to 1124 ROOM: [place] [address] Recommended Discharge Disposition: Subacute/SNF Recommended Discharge Disposition [...] historian, per chart review patient is from [facility]. Patient reports using walker and does her [...] [facility] Basic metabolic 2000 panelon 12-19-2021 Anion gap [Moles/Vol] 9 mmol/L Normal 9-18 [facility] Comment on above: Order Comment: Speci men Type: BLOOD SPECIMENOrdering Facility: [facility] Address: [address] [place] [address] Performed By: #### 2 4321-2 ####[facility] LABORATORYCLIA [id number] [place] [address] [place] Calcium [Mass/Vol] 9.1 mg/dL Normal 8.5-10.2 [facility] Comment on above: Order Comment: Speci men Type: BLOOD SPECIMENOrdering Facility: [facility] Address: [address] [place] [address] Performed By: #### 2 4321-2 ####[facility] LABORATORYCLIA [id number] [place] [address] [place] Chloride [Moles/Vol] 102 mmol/L Normal 97-105 [facility] Comment on above: Order Comment: Speci men Type: BLOOD SPECIMENOrdering Facility: [facility] Address: [address] [place] [address] Performed By: #### 2 4321-2 ####[facility] LABORATORYCLIA [id number] [place] [address] [place] CO2 [Moles/Vol] 30 mmol/L Normal 22-30 [facility] Comment on above: Order Comment: Speci men Type: BLOOD SPECIMENOrdering Facility: [facility] Address: [address] [place] [address] Performed By: #### 2 4321-2 ####[facility] LABORATORYCLIA [id number] [place] [address] [place] Creatinine [Mass/Vol] 0.73 mg/dL Normal 0.58-0.96 [facility] Comment on above: Order Comment: Speci men Type: BLOOD SPECIMENOrdering Facility: [facility] Address: [address] [place] [address] Performed By: #### 2 4321-2 ####[facility]CL[facility] [id number] [place] [id number] [place] ESTIMATED GLOMERULAR FILTRATION RATE 90 mL/min/1.73m??? Normal >=60 [facility] Comment on above: Order Comment: Kinsey herrera Type: BLOOD SPECIMENOrdering Facility: [facility] Address: [address] [place] [address] Result Comment: Jessa mated Glomerular Filtration Rate [...] actual GFR. Performed By: #### 2 4321-2 ####[facility] [id number] [place] [address] [place] Glucose [Mass/Vol] 101 mg/dL High 74-99 [facility] Comment on above: Order Comment: Kinsey herrera Type: BLOOD SPECIMENOrdering Facility: [facility] Address: [address] [place] [address] Result Comment: The [place] [employer] (ADA) provides guidance for cutoff [...] Standards of Medical Care in Diabetes 2016, [place] [employer]. Diabetes Care. 2016.39(Suppl 1). Performed By: #### 2 4321-2 ####[facility] LABORATORYCLIA [id number] [place] [id number] [place] Potassium [Moles/Vol] 3.9 mmol/L Normal 3.7-5.1 [facility] Comment on above: Order Comment: Speci men Type: BLOOD SPECIMENOrdering Facility: [facility] Address: [address] [place] [address] Performed By: #### 2 4321-2 ####[facility] LABORATORYCLIA [id number] [address] STATES [facility] Sodium [Moles/Vol] 141 mmol/L Normal 136-144 [facility] Comment on above: Order Comment: Speci men Type: BLOOD SPECIMENOrdering Facility: [facility] Address: [address] [place] [address] Performed By: #### 2 4321-2 ####[facility] LABORATORYCLIA [id number] [address] STATES OF [facility] Urea nitrogen [Mass/Vol] 9 mg/dL Normal 7-21 [facility] Comment on above: Order Comment: Speci men Type: BLOOD SPECIMENOrdering Facility: [facility] Address: [address] [place] [address] Performed By: #### 2 4321-2 ####[facility] LABORATORYCLIA [id number] [address] STATES OF [facility] CBC W Auto Differential pane l (Bld)on 12-19-2021 Basophils (Bld) [#/Vol] 0.06 10*3/uL Normal <0.11 [facility] Comment on above: Order Comment: Speci men Type: BLOOD SPECIMEN [facility]: [facility] Address: [address] [place] [address] Performed By: #### T SCR #### [facility] CLIA [id number] [address] Basophils/100 WBC (Bld) 0.6 % Normal A [facility] Comment on above: Order Comment: Speci men Type: BLOOD SPECIMEN [facility]: [facility] Address: [address] [place] [address] Performed By: #### T SCR #### [facility] CLIA [id number] [address] Differential cell count method Nom (Bld) Auto Normal [facility] Comment on above: Order Comment: Speci men Type: BLOOD SPECIMEN Ordering Facility: [facility] Address: [address] [place] [address] Performed By: #### T SCR #### [facility] CLIA [id number] [address] OF [facility] Eosinophils (Bld) [#/Vol] 0.29 10*3/uL Normal <0.46 [facility] Comment on above: Order Comment: Speci men Type: BLOOD SPECIMEN [facility]ing [facility]: [facility] Address: [address] [place] [address] Performed By: #### T SCR #### [facility] CLIA [id number] [address] Eosinophils/100 WBC (Bld) 2.9 % Normal [facility] Comment on above: Order Comment: Speci men Type: BLOOD SPECIMEN [facility]ing [facility]: [facility] Address: [address] [place] [address] Performed By: #### T SCR #### [facility] CLIA [id number] [address] Erythrocyte distribution width (RBC) [Ratio] 13.5 % Normal 11.5-15.0 [facility] Comment on above: Order Comment: Speci men Type: BLOOD SPECIMEN Ordering Facility: [facility] Address: [address] [place] [address] Performed By: #### T SCR #### [facility] CLIA [id number] [address] Hematocrit (Bld) [Volume fraction] 25.8 % Low 36.0-46.0 [facility] Comment on above: Order Comment: Speci men Type: BLOOD SPECIMEN [facility]ing Facility: [facility] Address: [facility] [place] [address] Performed By: #### T SCR #### [facility] CLIA [id number] [address] [place] Hemoglobin (Bld) [Mass/Vol] 8.0 g/dL Low 11.5-15.5 [facility] Comment on above: Order Comment: Speci men Type: BLOOD SPECIMEN Ordering Facility: [facility] Address: [address] [place] [address] Performed By: #### T SCR #### [facility] CLIA [id number] [address] [place] Immature granulocytes (Bld) [#/Vol] 0.05 10*3/uL Normal <0.10 [facility] Comment on above: Order Comment: Speci men Type: BLOOD SPECIMEN [facility]ing Facility: [facility] Address: [address] [place] [address] Performed By: #### T SCR #### [facility] CLIA [id number] [address] Immature granulocytes/100 WBC (Bld) 0.5 % Normal [facility] Comment on above: Order Comment: Speci men Type: BLOOD SPECIMEN Ordering Facility: [facility] Address: [address] [place] [address] Performed By: #### T SCR #### [facility] CLIA [id number] [address] [place] Lymphocytes (Bld) [#/Vol] 4.22 10*3/uL High 1.00-4.00 [facility] Comment on above: Order Comment: Speci men Type: BLOOD SPECIMEN Ordering Facility: [facility] Address: [address] [place] [address] Performed By: #### T SCR #### [facility] CLIA [id number] [address] [place] Lymphocytes/100 WBC (Bld) 41.6 % Normal [facility] Comment on above: Order Comment: Speci men Type: BLOOD SPECIMEN Ordering Facility: [facility] Address: [address] [place] [address] Performed By: #### T SCR #### [facility] CLIA [id number] [address] MCH (RBC) [Entitic mass] 29.0 pg Normal 26.0-34.0 [facility] Comment on above: Order Comment: Speci men Type: BLOOD SPECIMEN Ordering Facility: [facility] Address: [address] [place] [address] Performed By: #### T SCR #### [facility] CLIA [id number] [address] MCHC (RBC) [Mass/Vol] 31.0 g/dL Normal 30.5-36.0 [facility] Comment on above: Order Comment: Speci men Type: BLOOD SPECIMEN Ordering Facility: [facility] Address: [address] [place] [address] Performed By: #### T SCR #### [facility] CLIA [id number] [address] MCV (RBC) [Entitic vol] 93.5 fL Normal 80.0-100.0 [facility] Comment on above: Order Comment: Speci men Type: BLOOD SPECIMEN Ordering Facility: [facility] Address: [address] [place] [address] Performed By: #### T SCR #### [facility] CLIA [id number] [address] Monocytes (Bld) [#/Vol] 0.99 10*3/uL High <0.87 [facility] Comment on above: Order Comment: Speci men Type: BLOOD SPECIMEN Ordering Facility: [facility] Address: [address] [place] [address] Performed By: #### T SCR #### [facility] CLIA [id number] [address] Monocytes/100 WBC (Bld) 9.8 % Normal A [facility] Comment on above: Order Comment: Speci men Type: BLOOD SPECIMEN [facility]ing Facility: [facility] Address: [facility] [place] [address] Performed By: #### T SCR #### [facility] CLIA [id number] 1 [place] [address] [place] Neutrophils (Bld) [#/Vol] 4.54 10*3/uL Normal 1.45-7.50 [facility] Comment on above: Order Comment: Speci men Type: BLOOD SPECIMEN Ordering Facility: [facility] Address: [address] [place] [address] Performed By: #### T SCR #### [facility] CLIA [id number] [address] [place] Neutrophils/100 WBC (Bld) 44.6 % Normal [facility] Comment on above: Order Comment: Speci men Type: BLOOD SPECIMEN [facility]ing Facility: [facility] Address: [address] [place] [address] Performed By: #### T SCR #### [facility] CLIA [id number] [address] [place] Nucleated RBC (Bld) [#/Vol] 10*3/uL Normal <0.01 [facility] Comment on above: Order Comment: Speci men Type: BLOOD SPECIMEN Ordering Facility: [facility] Address: [address] [place] [address] Performed By: #### T SCR #### [facility] CLIA [id number] [address] [place] Nucleated RBC/100 WBC (Bld) [Ratio] 0.0 /100 WBC Normal [facility] Comment on above: Order Comment: Speci men Type: BLOOD SPECIMEN [facility]ing Facility: [facility] Address: [facility] [place] [address] Performed By: #### T SCR #### [facility] CLIA [id number] [address] Platelet mean volume (Bld) [Entitic vol] 9.5 fL Normal 9.0-12.7 [facility] Comment on above: Order Comment: Speci men Type: BLOOD SPECIMEN Ordering Facility: [facility] Address: [address] [place] [address] Performed By: #### T SCR #### [facility] CLIA [id number] [address] Platelets (Bld) [#/Vol] 375 10*3/uL Normal 150-400 [facility] Comment on above: Order Comment: Speci men Type: BLOOD SPECIMEN Ordering Facility: [facility] Address: [address] [place] [address] Performed By: #### T SCR #### [facility] CLIA [id number] [address] RBC (Bld) [#/Vol] 2.76 10*6/uL Low 3.90-5.20 [facility] Comment on above: Order Comment: Speci men Type: BLOOD SPECIMEN Ordering Facility: [facility] Address: [address] [place] [address] Performed By: #### T SCR #### [facility] CLIA [id number] [address] WBC (Bld) [#/Vol] 10.15 10*3/uL Normal 3.70-11.00 [facility] Comment on above: Order Comment: Speci men Type: BLOOD SPECIMEN Ordering Facility: [facility] Address: [address] [place] [address] Performed By: #### T SCR #### [facility] CLIA [id number] [address] NURSING PROGon 12-19-2021 NURSING PROG HNO ID: [id number] Author: Colten Hurley RN Service: Nursing Author Type: Registered Nurse Type: Nursing Progress Note Filed: 12/18/2021 11:13 PM Note Text: Other: okay to keep IV out per primary team. 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 Patient sleep important for elderly patient with hx of memory impairment. Normal [facility] THERAPY NTon 12-19-2021 THERAPY NT HNO ID: [id number] Author: Jesus Enrique PTA Service: Physical Therapy Author Type: Relationship Associate Type: Therapy (PT/OT/Speech/Resp) Filed: 12/19/2021 3:05 PM Note Text: Attestation signed by Rae Garza PT at 12/19/2021 4:31 PM I reviewed and agree with the documentation corresponding to this therapy visit. SIGNATURE: Rae Garza, PT DATE: December 19, 2021 TIME: 4:31 PM Physical Therapy Treatment SERVICE DATE: 12/19/2021 SERVICE TIME: 1433 to 1457 ROOM: [id number] Recommended Discharge Disposition: Subacute/SNF Recommended Discharge Disposition [...] historian, per chart review patient is from [facility]. 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 Stairs Curb Step [...] gap [Moles/Vol] 11 mmol/L Normal 9-18 [facility] Comment on above: Order Comment: Speci men Type: BLOOD SPECIMENOrdering Facility: [facility] Address: [address] [place] [address] Performed By: #### 2 4321-2 ####[facility] LABORATORYCLIA [id number] [place] [address] [place] Calcium [Mass/Vol] 8.8 mg/dL Normal 8.5-10.2 [facility] Comment on above: Order Comment: Speci men Type: BLOOD SPECIMENOrdering Facility: [facility] Address: [address] [place] [address] Performed By: #### 2 4321-2 ####[facility] LABORATORYCLIA [id number] [place] [address] [place] Chloride [Moles/Vol] 101 mmol/L Normal 97-105 [facility] Comment on above: Order Comment: Speci men Type: BLOOD SPECIMENOrdering Facility: [facility] Address: [address] [place] [address] Performed By: #### 2 4321-2 ####[facility] LABORATORYCLIA [id number] [address] [place] CO2 [Moles/Vol] 27 mmol/L Normal 22-30 [facility] Comment on above: Order Comment: Speci men Type: BLOOD SPECIMENOrdering Facility: [facility] Address: [address] [place] [address] Performed By: #### 2 4321-2 ####[facility] LABORATORYCLIA [id number] [address] Creatinine [Mass/Vol] 0.66 mg/dL Normal 0.58-0.96 [facility] Comment on above: Order Comment: Speci men Type: BLOOD SPECIMENOrdering Facility: [facility] Address: [address] [place] [address] Performed By: #### 2 4321-2 ####[facility] [id number] [address] ESTIMATED GLOMERULAR FILTRATION RATE 96 mL/min/1.73m??? Normal >=60 [facility] Comment on above: Order Comment: Speci men Type: BLOOD SPECIMENOrdering Facility: [facility] Address: [address] [place] [address] Result Comment: Jessa mated Glomerular Filtration Rate [...] actual GFR. Performed By: #### 2 4321-2 ####[facility] LABORATORYCLIA [id number] [address] OF [facility] Glucose [Mass/Vol] 111 mg/dL High 74-99 [facility] Comment on above: Order Comment: Speci men Type: BLOOD SPECIMENOrdering Facility: [facility] Address: [address] [place] [address] Result Comment: The [employer] (ADA) provides guidance for cutoff [...] Standards of Medical Care in Diabetes 2016, [place] [employer]. Diabetes Care. 2016.39(Suppl 1). Performed By: #### 2 4321-2 ####[facility] LABORATORYCLIA [id number] [address] STATES OF [facility] Potassium [Moles/Vol] 4.0 mmol/L Normal 3.7-5.1 [facility] Comment on above: Order Comment: Speci men Type: BLOOD SPECIMENOrdering Facility: [facility] Address: [address] [place] [address] Performed By: #### 2 1-2 ####[facility] LABORATORYCLIA [id number] [address] Sodium [Moles/Vol] 139 mmol/L Normal 136-144 [facility] Comment on above: Order Comment: Speci men Type: BLOOD SPECIMENOrdering Facility: [facility] Address: [address] [place] [address] Performed By: #### 2 4321-2 ####[facility] LABORATORYCLIA [id number] [address] STATES [facility] Urea nitrogen [Mass/Vol] 8 mg/dL Normal 7-21 [facility] Comment on above: Order Comment: Speci men Type: BLOOD SPECIMENOrdering Facility: [facility] Address: [address] [place] [address] Performed By: #### 2 4321-2 ####[facility] LABORATORYCLIA [id number] [place] [address] [place] CBC W Auto Differential pane l (Bld)on 12-18-2021 Basophils (Bld) [#/Vol] 0.03 10*3/uL Normal <0.11 [facility] Comment on above: Order Comment: Speci men Type: BLOOD SPECIMENOrdering Facility: [facility] Address: [address] [place] [address] Performed By: #### 5 7021-8 ####[facility] LABORATORYCLIA [id number] [address] Basophils/100 WBC (Bld) 0.3 % Normal A [facility] Comment on above: Order Comment: Speci men Type: BLOOD SPECIMENOrdering Facility: [facility] Address: [address] [place] [address] Performed By: #### 5 7021-8 ####[facility] LABORATORYCLIA [id number] [address] Differential cell count method Nom (Bld) Auto Normal [facility] Comment on above: Order Comment: Speci men Type: BLOOD SPECIMENOrdering Facility: [facility] Address: [address] [place] [address] Performed By: #### 5 7021-8 ####[facility] LABORATORYCLIA [id number] [address] Eosinophils (Bld) [#/Vol] 0.41 10*3/uL Normal <0.46 [facility] Comment on above: Order Comment: Speci men Type: BLOOD SPECIMENOrdering Facility: [facility] Address: [address] [place] [address] Performed By: #### 5 7021-8 ####[facility] LABORATORYCLIA [id number] [address] Eosinophils/100 WBC (Bld) 4.7 % Normal [facility] Comment on above: Order Comment: Speci men Type: BLOOD SPECIMENOrdering Facility: [facility] Address: [address] [place] [address] Performed By: #### 5 7021-8 ####[facility] LABORATORYCLIA [id number] [address] Erythrocyte distribution width (RBC) [Ratio] 13.2 % Normal 11.5-15.0 [facility] Comment on above: Order Comment: Speci men Type: BLOOD SPECIMENOrdering Facility: [facility] Address: [address] [place] [address] Performed By: #### 5 7021-8 ####[facility] LABORATORYCLIA [id number] [address] OF [facility] Hematocrit (Bld) [Volume fraction] 27.1 % Low 36.0-46.0 [facility] Comment on above: Order Comment: Speci men Type: BLOOD SPECIMENOrdering Facility: [facility] Address: [address] [place] [address] Performed By: #### 5 7021-8 ####[facility] LABORATORYCLIA [id number] [address] [place] Hemoglobin (Bld) [Mass/Vol] 8.6 g/dL Low 11.5-15.5 [facility] Comment on above: Order Comment: Speci men Type: BLOOD SPECIMENOrdering Facility: [facility] Address: [address] [place] [address] Performed By: #### 5 7021-8 ####[facility] LABORATORYCLIA [id number] [address] [place] Immature granulocytes (Bld) [#/Vol] 0.04 10*3/uL Normal <0.10 [facility] Comment on above: Order Comment: Speci men Type: BLOOD SPECIMENOrdering Facility: [facility] Address: [address] [place] [address] Performed By: #### 5 7021-8 ####[facility] LABORATORYCLIA [id number] [address] OF [place] Immature granulocytes/100 WBC (Bld) 0.5 % Normal [facility] Comment on above: Order Comment: Speci men Type: BLOOD SPECIMENOrdering Facility: [facility] Address: [address] [place] [address] Performed By: #### 5 7021-8 ####[facility] LABORATORYCLIA [id number] [address] OF [facility] Lymphocytes (Bld) [#/Vol] 2.72 10*3/uL Normal 1.00-4.00 [facility] Comment on above: Order Comment: Speci men Type: BLOOD SPECIMENOrdering Facility: [facility] Address: [address] [place] [address] Performed By: #### 5 7021-8 ####[facility] LABORATORYCLIA [id number] [address] Lymphocytes/100 WBC (Bld) 30.9 % Normal [facility] Comment on above: Order Comment: Speci men Type: BLOOD SPECIMENOrdering Facility: [facility] Address: [address] [place] [address] Performed By: #### 5 7021-8 ####[facility] LABORATORYCLIA [id number] [address] OF [facility] MCH (RBC) [Entitic mass] 29.6 pg Normal 26.0-34.0 [facility] Comment on above: Order Comment: Speci men Type: BLOOD SPECIMENOrdering Facility: [facility] Address: [address] [place] [address] Performed By: #### 5 7021-8 ####[facility] LABORATORYCLIA [id number] [address] [place] MCHC (RBC) [Mass/Vol] 31.7 g/dL Normal 30.5-36.0 [facility] Comment on above: Order Comment: Speci men Type: BLOOD SPECIMENOrdering Facility: [facility] Address: [address] [place] [address] Performed By: #### 5 7021-8 ####[facility] LABORATORYCLIA [id number] [address] OF [place] MCV (RBC) [Entitic vol] 93.1 fL Normal 80.0-100.0 A [facility] Comment on above: Order Comment: Speci men Type: BLOOD SPECIMENOrdering Facility: [facility] Address: [address] [place] [address] Performed By: #### 5 7021-8 ####[facility] LABORATORYCLIA [id number] [address] [place] Monocytes (Bld) [#/Vol] 0.84 10*3/uL Normal <0.87 [facility] Comment on above: Order Comment: Speci men Type: BLOOD SPECIMENOrdering Facility: [facility] Address: [address] [place] [address] Performed By: #### 5 7021-8 ####[facility] LABORATORYCLIA [id number] [address] Monocytes/100 WBC (Bld) 9.5 % Normal A [facility] Comment on above: Order Comment: Speci men Type: BLOOD SPECIMENOrdering Facility: [facility] Address: [address] [place] [address] Performed By: #### 5 7021-8 ####[facility] LABORATORYCLIA [id number] [address] [place] Neutrophils (Bld) [#/Vol] 4.76 10*3/uL Normal 1.45-7.50 [facility] Comment on above: Order Comment: Speci men Type: BLOOD SPECIMENOrdering Facility: [facility] Address: [address] [place] [address] Performed By: #### 5 7021-8 ####[facility] LABORATORYCLIA [id number] [address] Neutrophils/100 WBC (Bld) 54.1 % Normal [facility] Comment on above: Order Comment: Speci men Type: BLOOD SPECIMENOrdering Facility: [facility] Address: [address] [place] [address] Performed By: #### 5 7021-8 ####[facility] LABORATORYCLIA [id number] [address] Nucleated RBC (Bld) [#/Vol] 10*3/uL Normal <0.01 [facility] Comment on above: Order Comment: Speci men Type: BLOOD SPECIMENOrdering Facility: [facility] Address: [address] [place] [address] Performed By: #### 5 7021-8 ####[facility] LABORATORYCLIA [id number] [address] OF [place] Nucleated RBC/100 WBC (Bld) [Ratio] 0.0 /100 WBC Normal [facility] Comment on above: Order Comment: Speci men Type: BLOOD SPECIMENOrdering Facility: [facility] Address: [address] [place] [address] Performed By: #### 5 7021-8 ####[facility] LABORATORYCLIA [id number] [address] OF [place] Platelet mean volume (Bld) [Entitic vol] 9.9 fL Normal 9.0-12.7 [facility] Comment on above: Order Comment: Speci men Type: BLOOD SPECIMENOrdering Facility: [facility] Address: [address] [place] [address] Performed By: #### 5 7021-8 ####[facility] LABORATORYCLIA [id number] [address] [place] Platelets (Bld) [#/Vol] 327 10*3/uL Normal 150-400 [facility] Comment on above: Order Comment: Speci men Type: BLOOD SPECIMENOrdering Facility: [facility] Address: [address] [place] [address] Performed By: #### 5 7021-8 ####[facility] LABORATORYCLIA [id number] [address] [place] RBC (Bld) [#/Vol] 2.91 10*6/uL Low 3.90-5.20 [facility] Comment on above: Order Comment: Kinsey herrera Type: BLOOD SPECIMENOrdering Facility: [facility] Address: [address] [place], [place] [address] Performed By: #### 5 7021-8 ####[facility] LABORATORYCLIA [id number] [address] WBC (Bld) [#/Vol] 8.80 10*3/uL Normal 3.70-11.00 [facility] Comment on above: Order Comment: Speci men Type: BLOOD SPECIMENOrdering Facility: [facility] Address: [address] [place], [place] [address] Performed By: #### 5 7021-8 ####[facility] LABORATORYCLIA [id number] [address] THERAPY NTon 12-18-2021 THERAPY NT HNO ID: [id number] Author: Adryan Jonas, PIEDAD Service: Physical Therapy Author Type: Physical Therapist Type: Therapy (PT/OT/Speech/Resp) Filed: 12/18/2021 11:28 AM Note Text: Physical Therapy Treatment SERVICE DATE: 12/18/2021 SERVICE TIME: 1047 to 1117 ROOM: [place] [address] Recommended Discharge Disposition: Subacute/SNF Recommended Discharge Disposition [...] historian, per chart review patient is [facility]. 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 Stairs Curb Step [...] gait and mobility-other Interventions Provided: Therapeutic Exercise (13580);Therapeutic Activity (37288);Gait Training (50622) Therapeutic Exercise (98255) Treatment Minutes: 1 (more content not included)... Normal [facility] Basic metabolic 2000 panelon 12-17-2021 Anion gap [Moles/Vol] 8 mmol/L Low 9-18 [facility] Comment on above: Order Comment: Kinsey herrera Type: BLOOD SPECIMENOrdering Facility: [facility] Address: [address] [place] [address] Performed By: #### 2 4321-2 ####[facility] LABORATORYCLIA [id number] [place] [address] [place] Calcium [Mass/Vol] 8.3 mg/dL Low 8.5-10.2 [facility] Comment on above: Order Comment: Kinsey herrera Type: BLOOD SPECIMENOrdering Facility: [facility] Address: [address] [place] [address] Performed By: #### 2 4321-2 ####[facility] LABORATORYCLIA [id number] [place] [address] [place] Chloride [Moles/Vol] 102 mmol/L Normal 97-105 [facility] Comment on above: Order Comment: Speci men Type: BLOOD SPECIMENOrdering Facility: [facility] Address: [address] [place] [address] Performed By: #### 2 4321-2 ####[facility] LABORATORYCLIA [id number] [place] [address] [place] CO2 [Moles/Vol] 26 mmol/L Normal 22-30 [facility] Comment on above: Order Comment: Kinsey herrera Type: BLOOD SPECIMENOrdering Facility: [facility] Address: [address] [place] [address] Performed By: #### 2 4321-2 ####[facility]CL[facility] [id number] [address] OF [facility] Creatinine [Mass/Vol] 0.62 mg/dL Normal 0.58-0.96 [facility] Comment on above: Order Comment: Specrodo herrera Type: BLOOD SPECIMENOrdering Facility: [facility] Address: [address] [place] [address] Performed By: #### 2 4321-2 ####[facility] [id number] [address] ESTIMATED GLOMERULAR FILTRATION RATE 98 mL/min/1.73m??? Normal >=60 [facility] Comment on above: Order Comment: Kinsey herrera Type: BLOOD SPECIMENOrdering Facility: [facility] Address: [address] [place] [address] Result Comment: Jessa mated Glomerular Filtration Rate [...] actual GFR. Performed By: #### 2 4321-2 ####[facility] LABORATORYIA [id number] [address] Glucose [Mass/Vol] 122 mg/dL High 74-99 [facility] Comment on above: Order Comment: Kinsey herrera Type: BLOOD SPECIMENOrdering Facility: [facility] Address: [address] [place] [address] Result Comment: The [place] Diabetes Association (ADA) provides guidance for cutoff [...] Standards of Medical Care in Diabetes 2016, [place] [employer]. Diabetes Care. 2016.39(Suppl 1). Performed By: #### 2 4321-2 ####[facility] LABORATORYCLIA [id number] [address] Potassium [Moles/Vol] 3.9 mmol/L Normal 3.7-5.1 [facility] Comment on above: Order Comment: Speci men Type: BLOOD SPECIMENOrdering Facility: [facility] Address: [address] [place] [address] Performed By: #### 2 4321-2 ####[facility] LABORATORYCLIA [id number] [address] Sodium [Moles/Vol] 136 mmol/L Normal 136-144 [facility] Comment on above: Order Comment: Speci men Type: BLOOD SPECIMENOrdering Facility: [facility] Address: [address] [place] [address] Performed By: #### 2 4321-2 ####[facility] LABORATORYCLIA [id number] [address] Urea nitrogen [Mass/Vol] 9 mg/dL Normal 7-21 [facility] Comment on above: Order Comment: Speci men Type: BLOOD SPECIMENOrdering Facility: [facility] Address: [address] [place] [address] Performed By: #### 2 4321-2 ####[facility] LABORATORYCLIA [id number] [address] CBC W Auto Differential pane l (Bld)on 12-17-2021 Basophils (Bld) [#/Vol] 0.04 10*3/uL Normal <0.11 [facility] Comment on above: Order Comment: Speci men Type: BLOOD SPECIMENOrdering Facility: [facility] Address: [address] [place] [address] Performed By: #### 5 7021-8 ####[facility]ORATORYCLIA [id number] [address] STATES [facility] Basophils/100 WBC (Bld) 0.4 % Normal A [facility] Comment on above: Order Comment: Speci men Type: BLOOD SPECIMENOrdering Facility: [facility] Address: [address] [place] [address] Performed By: #### 5 7021-8 ####[facility] LABORATORYCLIA [id number] [address] Differential cell count method Nom (Bld) Auto Normal [facility] Comment on above: Order Comment: Speci men Type: BLOOD SPECIMENOrdering Facility: [facility] Address: [address] [place] [address] Performed By: #### 5 7021-8 ####[facility] LABORATORYCLIA [id number] [address] STATES OF [facility] Eosinophils (Bld) [#/Vol] 0.51 10*3/uL High <0.46 [facility] Comment on above: Order Comment: Speci men Type: BLOOD SPECIMENOrdering Facility: [facility] Address: [address] [place] [address] Performed By: #### 5 7021-8 ####[facility]ORATORYCLIA [id number] [address] Eosinophils/100 WBC (Bld) 4.5 % Normal [facility] Comment on above: Order Comment: Speci men Type: BLOOD SPECIMENOrdering Facility: [facility] Address: [address] [place] [address] Performed By: #### 5 7021-8 ####[facility]ORATORYCLIA [id number] [address] Erythrocyte distribution width (RBC) [Ratio] 13.4 % Normal 11.5-15.0 [facility] Comment on above: Order Comment: Speci men Type: BLOOD SPECIMENOrdering Facility: [facility] Address: [address] [place] [address] Performed By: #### 5 7021-8 ####[facility] LABORATORYCLIA [id number] [address] [place] Hematocrit (Bld) [Volume fraction] 25.9 % Low 36.0-46.0 [facility] Comment on above: Order Comment: Speci men Type: BLOOD SPECIMENOrdering Facility: [facility] Address: [address] [place] [address] Performed By: #### 5 7021-8 ####[facility] LABORATORYCLIA [id number] [address] [place] Hemoglobin (Bld) [Mass/Vol] 8.2 g/dL Low 11.5-15.5 [facility] Comment on above: Order Comment: Speci men Type: BLOOD SPECIMENOrdering Facility: [facility] Address: [address] [place] [address] Performed By: #### 5 7021-8 ####[facility] LABORATORYCLIA [id number] [address] Immature granulocytes (Bld) [#/Vol] 0.04 10*3/uL Normal <0.10 [facility] Comment on above: Order Comment: Speci men Type: BLOOD SPECIMENOrdering Facility: [facility] Address: [address] [place] [address] Performed By: #### 5 7021-8 ####[facility] LABORATORYCLIA [id number] [address] Immature granulocytes/100 WBC (Bld) 0.4 % Normal [facility] Comment on above: Order Comment: Speci men Type: BLOOD SPECIMENOrdering Facility: [facility] Address: [address] [place] [address] Performed By: #### 5 7021-8 ####[facility]ORATORYCLIA [id number] [address] [place] Lymphocytes (Bld) [#/Vol] 2.84 10*3/uL Normal 1.00-4.00 [facility] Comment on above: Order Comment: Speci men Type: BLOOD SPECIMENOrdering Facility: [facility] Address: [address] [place] [address] Performed By: #### 5 7021-8 ####[facility] LABORATORYCLIA [id number] [address] Lymphocytes/100 WBC (Bld) 25.1 % Normal [facility] Comment on above: Order Comment: Speci men Type: BLOOD SPECIMENOrdering Facility: [facility] Address: [address] [place] [address] Performed By: #### 5 7021-8 ####[facility] LABORATORYCLIA [id number] [address] MCH (RBC) [Entitic mass] 29.8 pg Normal 26.0-34.0 [facility] Comment on above: Order Comment: Speci men Type: BLOOD SPECIMENOrdering Facility: [facility] Address: [address] [place] [address] Performed By: #### 5 7021-8 ####[facility] LABORATORYCLIA [id number] [address] [place] MCHC (RBC) [Mass/Vol] 31.7 g/dL Normal 30.5-36.0 [facility] Comment on above: Order Comment: Speci men Type: BLOOD SPECIMENOrdering Facility: [facility] Address: [address] [place] [address] Performed By: #### 5 7021-8 ####[facility] LABORATORYCLIA [id number] [address] MCV (RBC) [Entitic vol] 94.2 fL Normal 80.0-100.0 A [facility] Comment on above: Order Comment: Speci men Type: BLOOD SPECIMENOrdering Facility: [facility] Address: [address] [place] [address] Performed By: #### 5 7021-8 ####[facility]ORATORYCLIA [id number] [place] [address] [place] Monocytes (Bld) [#/Vol] 1.28 10*3/uL High <0.87 [facility] Comment on above: Order Comment: Speci men Type: BLOOD SPECIMENOrdering Facility: [facility] Address: [address] [place] [address] Performed By: #### 5 7021-8 ####[facility] LABORATORYCLIA [id number] [address] [address] [place] Monocytes/100 WBC (Bld) 11.3 % Normal [facility] Comment on above: Order Comment: Speci men Type: BLOOD SPECIMENOrdering Facility: [facility] Address: [address] [place] [address] Performed By: #### 5 7021-8 ####[facility] LABORATORYCLIA [id number] [address] [place] Neutrophils (Bld) [#/Vol] 6.61 10*3/uL Normal 1.45-7.50 [facility] Comment on above: Order Comment: Speci men Type: BLOOD SPECIMENOrdering Facility: [facility] Address: [address] [place] [address] Performed By: #### 5 7021-8 ####[facility] LABORATORYCLIA [id number] [address] [place] Neutrophils/100 WBC (Bld) 58.3 % Normal [facility] Comment on above: Order Comment: Speci men Type: BLOOD SPECIMENOrdering Facility: [facility] Address: [address] [place] [address] Performed By: #### 5 7021-8 ####[facility] LABORATORYCLIA [id number] [place] [address] [place] Nucleated RBC (Bld) [#/Vol] 10*3/uL Normal <0.01 [facility] Comment on above: Order Comment: Speci men Type: BLOOD SPECIMENOrdering Facility: [facility] Address: [address] [place] [address] Performed By: #### 5 7021-8 ####[facility] LABORATORYCLIA [id number] [address] Nucleated RBC/100 WBC (Bld) [Ratio] 0.0 /100 WBC Normal [facility] Comment on above: Order Comment: Speci men Type: BLOOD SPECIMENOrdering Facility: [facility] Address: [address] [place] [address] Performed By: #### 5 7021-8 ####[facility] LABORATORYCLIA [id number] [address] [place] Platelet mean volume (Bld) [Entitic vol] 10.3 fL Normal 9.0-12.7 [facility] Comment on above: Order Comment: Speci men Type: BLOOD SPECIMENOrdering Facility: [facility] Address: [address] [place], [place] [address] Performed By: #### 5 7021-8 ####[facility] LABORATORYCLIA [id number] [address] [place] Platelets (Bld) [#/Vol] 259 10*3/uL Normal 150-400 [facility] Comment on above: Order Comment: Speci men Type: BLOOD SPECIMENOrdering Facility: [facility] Address: [address] [place], [place] [address] Performed By: #### 5 7021-8 ####[facility] LABORATORYCLIA [id number] [address] [place] RBC (Bld) [#/Vol] 2.75 10*6/uL Low 3.90-5.20 [facility] Comment on above: Order Comment: Speci men Type: BLOOD SPECIMENOrdering Facility: [facility] Address: [address] [place], [place] [address] Performed By: #### 5 7021-8 ####[facility] LABORATORYCLIA [id number] [place] [address] [facility] [place] WBC (Bld) [#/Vol] 11.32 10*3/uL High 3.70-11.00 [facility] Comment on above: Order Comment: Speci men Type: BLOOD SPECIMENOrdering Facility: [facility] Address: [facility] [place] [id number] Performed By: #### 5 7021-8 ####[facility] LABORATORYCLIA [id number] [place] [address] [facility] THERAPY NTon 12-17-2021 THERAPY NT HNO ID: [id number] Author: Jesus Enrique PTA Service: Physical Therapy Author Type: Relationship Associate Type: Therapy (PT/OT/Speech/Resp) Filed: 12/17/2021 11:50 AM Note Text: Attestation signed by Rea Garza PT at 12/17/2021 4:31 PM I reviewed and agree with the documentation corresponding to this therapy visit. SIGNATURE: Rae Garza PT DATE: December 17, 2021 TIME: 4:31 PM Physical Therapy Treatment SERVICE DATE: 12/17/2021 SERVICE TIME: 1048 to 1113 ROOM: [place] [address] Recommended Discharge Disposition: Subacute/SNF Recommended Discharge Disposition [...] historian, per chart review patient is from [facility]. Patient reports using walker and does her [...] gap [Moles/Vol] 8 mmol/L Low 9-18 [facility] Comment on above: Order Comment: Speci men Type: BLOOD SPECIMENOrdering Facility: [facility] Address: [address] [address] Performed By: #### 2 4321-2 ####[facility] LABORATORYCLIA [id number] [place] [address] [place] Calcium [Mass/Vol] 8.4 mg/dL Low 8.5-10.2 [facility] Comment on above: Order Comment: Speci men Type: BLOOD SPECIMENOrdering Facility: [facility] Address: [address] [place] [address] Performed By: #### 2 4321-2 ####[facility] LABORATORYCLIA [id number] [place] [address] [place] Chloride [Moles/Vol] 102 mmol/L Normal 97-105 [facility] Comment on above: Order Comment: Speci men Type: BLOOD SPECIMENOrdering Facility: [facility] Address: [address] [address] Performed By: #### 2 4321-2 ####[facility] LABORATORYCLIA [id number] [address] STATES OF [facility] CO2 [Moles/Vol] 27 mmol/L Normal 22-30 [facility] Comment on above: Order Comment: Speci men Type: BLOOD SPECIMENOrdering Facility: [facility] Address: [address] [place] [address] Performed By: #### 2 4321-2 ####[facility]ALSCL[facility] [id number] [address] STATES OF [facility] Creatinine [Mass/Vol] 0.80 mg/dL Normal 0.58-0.96 [facility] Comment on above: Order Comment: Speci men Type: BLOOD SPECIMENOrdering Facility: [facility] Address: [address] [place] [address] Performed By: #### 2 4321-2 ####[facility] [place] [id number] [address] ESTIMATED GLOMERULAR FILTRATION RATE 81 mL/min/1.73m??? Normal >=60 [facility] Comment on above: Order Comment: Speci men Type: BLOOD SPECIMENOrdering Facility: [facility] Address: [address] [place] [address] Result Comment: Jessa mated Glomerular Filtration Rate [...] actual GFR. Performed By: #### 2 4321-2 ####[facility] LABORATORYCLIA [id number] [address] Glucose [Mass/Vol] 106 mg/dL High 74-99 [facility] Comment on above: Order Comment: Speci men Type: BLOOD SPECIMENOrdering Facility: [facility] Address: [address] [place] [address] Result Comment: The [place] Diabetes Association (ADA) provides guidance for cutoff [...] Standards of Medical Care in Diabetes 2016, [place] [employer]. Diabetes Care. 2016.39(Suppl 1). Performed By: #### 2 4321-2 ####[facility] LABORATORYCLIA [id number] [place] [address] [place] Potassium [Moles/Vol] 3.8 mmol/L Normal 3.7-5.1 [facility] Comment on above: Order Comment: Speci men Type: BLOOD SPECIMENOrdering Facility: [facility] Address: [address] [address] Performed By: #### 2 1-2 ####[facility] LABORATORYCLIA [id number] [place] [address] [place] Sodium [Moles/Vol] 137 mmol/L Normal 136-144 [facility] Comment on above: Order Comment: Speci men Type: BLOOD SPECIMENOrdering Facility: [facility] Address: [address] [address] Performed By: #### 2 4321-2 ####[facility] LABORATORYCLIA [id number] [place] [address] [place] Urea nitrogen [Mass/Vol] 11 mg/dL Normal 7-21 [facility] Comment on above: Order Comment: Speci men Type: BLOOD SPECIMENOrdering Facility: [facility] Address: [address] [address] Performed By: #### 2 4321-2 ####[facility] LABORATORYCLIA [id number] [address] STATES OF [facility] CBC W Auto Differential pane l (Bld)on 12-16-2021 Basophils (Bld) [#/Vol] 0.04 10*3/uL Normal <0.11 [facility] Comment on above: Order Comment: Speci men Type: BLOOD SPECIMENOrdering Facility: [facility] Address: [address] [place] [address] Performed By: #### 5 7021-8 ####[facility] LABORATORYCLIA [id number] [address] Basophils/100 WBC (Bld) 0.4 % Normal A [facility] Comment on above: Order Comment: Speci men Type: BLOOD SPECIMENOrdering Facility: [facility] Address: [address] [place] [address] Performed By: #### 5 7021-8 ####[facility] LABORATORYCLIA [id number] [address] Differential cell count method Nom (Bld) Auto Normal [facility] Comment on above: Order Comment: Speci men Type: BLOOD SPECIMENOrdering Facility: [facility] Address: [address] [place] [address] Performed By: #### 5 7021-8 ####[facility] LABORATORYCLIA [id number] [address] [place] Eosinophils (Bld) [#/Vol] 0.30 10*3/uL Normal <0.46 [facility] Comment on above: Order Comment: Speci men Type: BLOOD SPECIMENOrdering Facility: [facility] Address: [address] [place] [address] Performed By: #### 5 7021-8 ####[facility] LABORATORYCLIA [id number] [address] Eosinophils/100 WBC (Bld) 2.7 % Normal [facility] Comment on above: Order Comment: Speci men Type: BLOOD SPECIMENOrdering Facility: [facility] Address: [address] [address] Performed By: #### 5 7021-8 ####[facility] LABORATORYCLIA [id number] [address] Erythrocyte distribution width (RBC) [Ratio] 13.5 % Normal 11.5-15.0 [facility] Comment on above: Order Comment: Speci men Type: BLOOD SPECIMENOrdering Facility: [facility] Address: [address] [place] [address] Performed By: #### 5 7021-8 ####[facility] LABORATORYCLIA [id number] [address] Hematocrit (Bld) [Volume fraction] 28.9 % Low 36.0-46.0 [facility] Comment on above: Order Comment: Speci men Type: BLOOD SPECIMENOrdering Facility: [facility] Address: [address] [place] [address] Performed By: #### 5 7021-8 ####[facility] LABORATORYCLIA [id number] [address] Hemoglobin (Bld) [Mass/Vol] 9.0 g/dL Low 11.5-15.5 [facility] Comment on above: Order Comment: Speci men Type: BLOOD SPECIMENOrdering Facility: [facility] Address: [address] [place] [address] Performed By: #### 5 7021-8 ####[facility] LABORATORYCLIA [id number] [address] Immature granulocytes (Bld) [#/Vol] 0.04 10*3/uL Normal <0.10 [facility] Comment on above: Order Comment: Speci men Type: BLOOD SPECIMENOrdering Facility: [facility] Address: [address] [place] [address] Performed By: #### 5 7021-8 ####[facility] LABORATORYCLIA [id number] [address] Immature granulocytes/100 WBC (Bld) 0.4 % Normal [facility] Comment on above: Order Comment: Speci men Type: BLOOD SPECIMENOrdering Facility: [facility] Address: [address] [place] [address] Performed By: #### 5 7021-8 ####[facility] LABORATORYCLIA [id number] [address] OF [facility] Lymphocytes (Bld) [#/Vol] 2.51 10*3/uL Normal 1.00-4.00 [facility] Comment on above: Order Comment: Speci men Type: BLOOD SPECIMENOrdering Facility: [facility] Address: [address] [place] [address] Performed By: #### 5 7021-8 ####[facility] LABORATORYCLIA [id number] [address] Lymphocytes/100 WBC (Bld) 22.9 % Normal [facility] Comment on above: Order Comment: Speci men Type: BLOOD SPECIMENOrdering Facility: [facility] Address: [address] [place] [address] Performed By: #### 5 7021-8 ####[facility] LABORATORYCLIA [id number] [address] STATES [facility] MCH (RBC) [Entitic mass] 29.4 pg Normal 26.0-34.0 [facility] Comment on above: Order Comment: Speci men Type: BLOOD SPECIMENOrdering Facility: [facility] Address: [address] [place] [address] Performed By: #### 5 7021-8 ####[facility] LABORATORYCLIA [id number] [address] STATES [facility] MCHC (RBC) [Mass/Vol] 31.1 g/dL Normal 30.5-36.0 [facility] Comment on above: Order Comment: Speci men Type: BLOOD SPECIMENOrdering Facility: [facility] Address: [address] [place] [address] Performed By: #### 5 7021-8 ####[facility] LABORATORYCLIA [id number] [place] [address] [place] MCV (RBC) [Entitic vol] 94.4 fL Normal 80.0-100.0 A [facility] Comment on above: Order Comment: Speci men Type: BLOOD SPECIMENOrdering Facility: [facility] Address: [address] [place] [address] Performed By: #### 5 7021-8 ####[facility] LABORATORYCLIA [id number] [address] [place] Monocytes (Bld) [#/Vol] 1.67 10*3/uL High <0.87 [facility] Comment on above: Order Comment: Speci men Type: BLOOD SPECIMENOrdering Facility: [facility] Address: [address] [place] [address] Performed By: #### 5 7021-8 ####[facility] LABORATORYCLIA [id number] [address] [place] Monocytes/100 WBC (Bld) 15.2 % Normal A [facility] Comment on above: Order Comment: Speci men Type: BLOOD SPECIMENOrdering Facility: [facility] Address: [address] [place] [address] Performed By: #### 5 7021-8 ####[facility] LABORATORYCLIA [id number] [address] [place] Neutrophils (Bld) [#/Vol] 6.41 10*3/uL Normal 1.45-7.50 [facility] Comment on above: Order Comment: Speci men Type: BLOOD SPECIMENOrdering Facility: [facility] Address: [address] [place] [address] Performed By: #### 5 7021-8 ####[facility] LABORATORYCLIA [id number] [address] [place] Neutrophils/100 WBC (Bld) 58.4 % Normal [facility] Comment on above: Order Comment: Speci men Type: BLOOD SPECIMENOrdering Facility: [facility] Address: [address] [address] Performed By: #### 5 7021-8 ####[facility] LABORATORYCLIA [id number] [address] Nucleated RBC (Bld) [#/Vol] 10*3/uL Normal <0.01 [facility] Comment on above: Order Comment: Speci men Type: BLOOD SPECIMENOrdering Facility: [facility] Address: [address] [place] [address] Performed By: #### 5 7021-8 ####[facility] LABORATORYCLIA [id number] [address] Nucleated RBC/100 WBC (Bld) [Ratio] 0.0 /100 WBC Normal [facility] Comment on above: Order Comment: Speci men Type: BLOOD SPECIMENOrdering Facility: [facility] Address: [address] [place] [address] Performed By: #### 5 7021-8 ####[facility] LABORATORYCLIA [id number] [address] [place] Platelet mean volume (Bld) [Entitic vol] 9.9 fL Normal 9.0-12.7 [facility] Comment on above: Order Comment: Speci men Type: BLOOD SPECIMENOrdering Facility: [facility] Address: [address] [place] [address] Performed By: #### 5 7021-8 ####[facility] LABORATORYCLIA [id number] [address] Platelets (Bld) [#/Vol] 264 10*3/uL Normal 150-400 [facility] Comment on above: Order Comment: Speci men Type: BLOOD SPECIMENOrdering Facility: [facility] Address: [address] [place] [address] Performed By: #### 5 7021-8 ####[facility] LABORATORYCLIA [id number] [address] [place] RBC (Bld) [#/Vol] 3.06 10*6/uL Low 3.90-5.20 [facility] Comment on above: Order Comment: Speci men Type: BLOOD SPECIMENOrdering Facility: [facility] Address: [address] [place] [phone] Performed By: #### 5 7021-8 ####[facility] LABORATORYCLIA [id number] [address] WBC (Bld) [#/Vol] 10.97 10*3/uL Normal 3.70-11.00 [facility] Comment on above: Order Comment: Speci men Type: BLOOD SPECIMENOrdering Facility: [facility] Address: [address] [place] [phone] Performed By: #### 5 7021-8 ####[facility] LABORATORYCLIA [id number] [address] THERAPY NTon 12-16-2021 THERAPY NT HNO ID: [id number] Author: Rae Garza, PT Service: Physical Therapy Author Type: Physical Therapist Type: Therapy (PT/OT/Speech/Resp) Filed: 12/16/2021 2:43 PM Note Text: Physical Therapy Evaluation SERVICE DATE: 12/16/2021 SERVICE TIME: 1325 to 1355 ROOM: [place] [address] Recommended Discharge Disposition: Subacute/SNF Recommended Discharge Disposition [...] historian, per chart review patient is from [facility]. Patient reports using walker and does her own ADLs Baseline Cognition: Confused;Forgetful;Favio ented to self;Requires / supervision Patient Report: Pleasant, fearfull repeatedly stating [...] gait and mobility-other Interventions Provided: Evaluation;Gait Training (47804) $ Evaluation-High (01491) Billed Units: 1 unit Gait Training (39780) Treatment Minutes: 12 $ Gait Training (05271) Billed Units: 1 unit Educated on sit to stand not to pull on walker as to sit to find midline balance. Assisted to move the walker and take steps (more content not included)... Normal [facility] THERAPY NT HNO ID: [id number] Author: Jeanette aDle OTR/L Service: Occupational Therapy Author Type: Occupational Therapist Type: Therapy (PT/OT/Speech/Resp) Filed: 12/16/2021 2:33 PM Note Text: Occupational Therapy Evaluation SERVICE DATE: 12/16/2021 SERVICE TIME: 1310 to 1330 ROOM: [place] [address] Recommended Discharge Disposition: Subacute/SNF Recommended Discharge Disposition [...] historian, per chart review patient is from [facility]. Patient reports using walker and does her [...] 12-15-2021 Anion gap [Moles/Vol] 14 mmol/L Normal 9-18 [facility] Comment on above: Order Comment: Speci men Type: BLOOD SPECIMEN [facility] Address: [address] [place] [address] Performed By: #### T SCR #### [facility] CLIA [id number] 1 [place] [address] [place] Calcium [Mass/Vol] 8.1 mg/dL Low 8.5-10.2 [facility] Comment on above: Order Comment: Speci men Type: BLOOD SPECIMEN [facility]: [facility] Address: [address] [place] [address] Performed By: #### T SCR #### [facility] CLIA [id number] 1 [place] [address] [place] Chloride [Moles/Vol] 100 mmol/L Normal 97-105 [facility] Comment on above: Order Comment: Speci men Type: BLOOD SPECIMEN [facility]ing [facility]: [facility] Address: [address] [place] [address] Performed By: #### T SCR #### [facility] CLIA [id number] [address] [place] [address] [place] CO2 [Moles/Vol] 21 mmol/L Low 22-30 [facility] Comment on above: Order Comment: Speci men Type: BLOOD SPECIMEN [facility]: [facility] Address: [address] [place] [address] Performed By: #### T SCR #### [facility] CLIA [id number] [address] STATES OF [facility] Creatinine [Mass/Vol] 0.80 mg/dL Normal 0.58-0.96 [facility] Comment on above: Order Comment: Kinsey javier Type: BLOOD SPECIMEN [facility]: [facility] Address: [address] [place] [address] Performed By: #### T SCR #### [facility] CLIA [id number] [address] ESTIMATED GLOMERULAR FILTRATION RATE 81 mL/min/1.73m??? Normal >=60 [facility] Comment on above: Order Comment: Kinsey herrera Type: BLOOD SPECIMEN [facility]ing [facility]: [facility] Address: [address] [place] [address] Result Comment: Jessa mated Glomerular Filtration Rate [...] GFR. Performed By: #### T SCR #### [facility] [place] [id number] [address] Glucose [Mass/Vol] 122 mg/dL High 74-99 [facility] Comment on above: Order Comment: Kinsey herrera Type: BLOOD SPECIMEN [facility]ing Facility: [facility] Address: [address] [place] [address] Result Comment: The [place] [employer] (ADA) provides guidance for cutoff [...] Standards of Medical Care in Diabetes 2016, [place] [employer]. Diabetes Care. 2016.39(Suppl 1). Performed By: #### T SCR #### [facility] CLIA [id number] [address] Potassium [Moles/Vol] 4.8 mmol/L Normal 3.7-5.1 [facility] Comment on above: Order Comment: Speci men Type: BLOOD SPECIMEN [facility]ing Facility: [facility] Address: [address] [place] [address] Performed By: #### T SCR #### [facility] CLIA [id number] [address] Sodium [Moles/Vol] 135 mmol/L Low 136-144 [facility] Comment on above: Order Comment: Speci men Type: BLOOD SPECIMEN [facility]ing Facility: [facility] Address: [address] [place] [address] Performed By: #### T SCR #### [facility] CLIA [id number] [address] Urea nitrogen [Mass/Vol] 12 mg/dL Normal 7-21 [facility] Comment on above: Order Comment: Speci men Type: BLOOD SPECIMEN Ordering Facility: [facility] Address: [address] [place] [address] Performed By: #### T SCR #### [facility] CLIA [id number] [address] CBC W Auto Differential pane l (Bld)on 12-15-2021 Basophils (Bld) [#/Vol] 0.00 10*3/uL Normal <0.11 [facility] Comment on above: Order Comment: Speci men Type: BLOOD SPECIMENOrdering Facility: [facility] Address: [address] [place] [address] Performed By: #### 5 7021-8 ####[facility] LABORATORYCLIA [id number] [address] [place] Basophils/100 WBC (Bld) 0.0 % Normal A [facility] Comment on above: Order Comment: Speci men Type: BLOOD SPECIMENOrdering Facility: [facility] Address: [address] [place] [address] Performed By: #### 5 7021-8 ####[facility] LABORATORYCLIA [id number] [address] Differential cell count method Nom (Bld) Manual Normal [facility] Comment on above: Order Comment: Speci men Type: BLOOD SPECIMENOrdering Facility: [facility] Address: [address] [place] [address] Performed By: #### 5 7021-8 ####[facility] LABORATORYCLIA [id number] [address] Eosinophils (Bld) [#/Vol] 0.13 10*3/uL Normal <0.46 [facility] Comment on above: Order Comment: Speci men Type: BLOOD SPECIMENOrdering Facility: [facility] Address: [address] [place] [address] Performed By: #### 5 7021-8 ####[facility]ORATORYCLIA [id number] [address] Eosinophils/100 WBC (Bld) 1.0 % Normal [facility] Comment on above: Order Comment: Speci men Type: BLOOD SPECIMENOrdering Facility: [facility] Address: [address] [place] [address] Performed By: #### 5 7021-8 ####[facility]ORATORYCLIA [id number] [address] Erythrocyte distribution width (RBC) [Ratio] 13.5 % Normal 11.5-15.0 [facility] Comment on above: Order Comment: Speci men Type: BLOOD SPECIMENOrdering Facility: [facility] Address: [address] [place] [address] Performed By: #### 5 7021-8 ####[facility]ORATORYCLIA [id number] [address] [place] Hematocrit (Bld) [Volume fraction] 32.9 % Low 36.0-46.0 [facility] Comment on above: Order Comment: Speci men Type: BLOOD SPECIMENOrdering Facility: [facility] Address: [address] [place] [address] Performed By: #### 5 7021-8 ####[facility] LABORATORYCLIA [id number] [address] [place] Hemoglobin (Bld) [Mass/Vol] 10.1 g/dL Low 11.5-15.5 [facility] Comment on above: Order Comment: Speci men Type: BLOOD SPECIMENOrdering Facility: [facility] Address: [address] [place] [address] Performed By: #### 5 7021-8 ####[facility] LABORATORYCLIA [id number] [address] [place] Lymphocytes (Bld) [#/Vol] 3.01 10*3/uL Normal 1.00-4.00 [facility] Comment on above: Order Comment: Speci men Type: BLOOD SPECIMENOrdering Facility: [facility] Address: [address] [place] [address] Performed By: #### 5 7021-8 ####[facility] LABORATORYCLIA [id number] [address] Lymphocytes/100 WBC (Bld) 9.0 % Normal [facility] Comment on above: Order Comment: Speci men Type: BLOOD SPECIMENOrdering Facility: [facility] Address: [address] [place] [address] Performed By: #### 5 7021-8 ####[facility] LABORATORYCLIA [id number] [address] [place] MCH (RBC) [Entitic mass] 29.4 pg Normal 26.0-34.0 [facility] Comment on above: Order Comment: Speci men Type: BLOOD SPECIMENOrdering Facility: [facility] Address: [address] [place] [address] Performed By: #### 5 7021-8 ####[facility] LABORATORYCLIA [id number] [address] MCHC (RBC) [Mass/Vol] 30.7 g/dL Normal 30.5-36.0 [facility] Comment on above: Order Comment: Speci men Type: BLOOD SPECIMENOrdering Facility: [facility] Address: [address] [place] [address] Performed By: #### 5 7021-8 ####[facility] LABORATORYCLIA [id number] [address] OF [facility] MCV (RBC) [Entitic vol] 95.6 fL Normal 80.0-100.0 [facility] Comment on above: Order Comment: Speci men Type: BLOOD SPECIMENOrdering Facility: [facility] Address: [address] [place] [address] Performed By: #### 5 7021-8 ####[facility] LABORATORYCLIA [id number] [address] [place] Monocytes (Bld) [#/Vol] 1.05 10*3/uL High <0.87 [facility] Comment on above: Order Comment: Speci men Type: BLOOD SPECIMENOrdering Facility: [facility] Address: [address] [place] [address] Performed By: #### 5 7021-8 ####[facility] LABORATORYCLIA [id number] [address] Monocytes/100 WBC (Bld) 8.0 % Normal A [facility] Comment on above: Order Comment: Speci men Type: BLOOD SPECIMENOrdering Facility: [facility] Address: [address] [place] [address] Performed By: #### 5 7021-8 ####[facility] LABORATORYCLIA [id number] [address] [place] Neutrophils (Bld) [#/Vol] 8.90 10*3/uL High 1.45-7.50 [facility] Comment on above: Order Comment: Speci men Type: BLOOD SPECIMENOrdering Facility: [facility] Address: [address] [place] [address] Performed By: #### 5 7021-8 ####[facility] LABORATORYCLIA [id number] [address] Neutrophils/100 WBC (Bld) 68.0 % Normal [facility] Comment on above: Order Comment: Speci men Type: BLOOD SPECIMENOrdering Facility: [facility] Address: [address] [place] [address] Performed By: #### 5 7021-8 ####[facility] LABORATORYCLIA [id number] [address] [place] Nucleated RBC (Bld) [#/Vol] 10*3/uL Normal <0.01 [facility] Comment on above: Order Comment: Speci men Type: BLOOD SPECIMENOrdering Facility: [facility] Address: [address] [place] [address] Performed By: #### 5 7021-8 ####[facility] LABORATORYCLIA [id number] [address] Nucleated RBC/100 WBC (Bld) [Ratio] 0.0 /100 WBC Normal [facility] Comment on above: Order Comment: Speci men Type: BLOOD SPECIMENOrdering Facility: [facility] Address: [address] [place] [address] Performed By: #### 5 7021-8 ####[facility] LABORATORYCLIA [id number] [address] Platelet mean volume (Bld) [Entitic vol] 9.9 fL Normal 9.0-12.7 [facility] Comment on above: Order Comment: Speci men Type: BLOOD SPECIMENOrdering Facility: [facility] Address: [address] [place] [address] Performed By: #### 5 7021-8 ####[facility]ORATORYCLIA [id number] [address] [place] Platelets (Bld) [#/Vol] 308 10*3/uL Normal 150-400 [facility] Comment on above: Order Comment: Speci men Type: BLOOD SPECIMENOrdering Facility: [facility] Address: [address] [place] [address] Performed By: #### 5 7021-8 ####[facility] LABORATORYCLIA [id number] [place] [address] [place] Platelets Estimate (Bld) [#/Vol] Adequate Normal [facility] Comment on above: Order Comment: Speci men Type: BLOOD SPECIMENOrdering Facility: [facility] Address: [address] [place] [address] Performed By: #### 5 7021-8 ####[facility] LABORATORYCLIA [id number] [address] [place] RBC (Bld) [#/Vol] 3.44 10*6/uL Low 3.90-5.20 [facility] Comment on above: Order Comment: Speci men Type: BLOOD SPECIMENOrdering Facility: [facility] Address: [address] [place] [address] Performed By: #### 5 7021-8 ####[facility] LABORATORYCLIA [id number] [address] [place] RED CELL MORPH Normal Normal [facility] Comment on above: Order Comment: Speci men Type: BLOOD SPECIMENOrdering Facility: [facility] Address: [address] [place] [address] Performed By: #### 5 7021-8 ####[facility] LABORATORYCLIA [id number] [address] Variant lymphocytes/100 WBC (Bld) 14.0 % Normal [facility] Comment on above: Order Comment: Speci men Type: BLOOD SPECIMENOrdering Facility: [facility] Address: [address] [place] [address] Performed By: #### 5 7021-8 ####[facility] LABORATORYCLIA [id number] [place] [id number] [place] WBC (Bld) [#/Vol] 13.09 10*3/uL High 3.70-11.00 [facility] Comment on above: Order Comment: Speci men Type: BLOOD SPECIMENOrdering Facility: [facility] Address: [address] Performed By: #### 5 7021-8 ####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 [facility] NURSING PROG HNO ID: [id number] Author: Taniya Jenkins RN Service: Nursing Author Type: Registered Nurse Type: Nursing Progress Note Filed: 12/15/2021 10:14 AM Note Text: Post Fall Assessment Claribel Stoll [id number] Witnessed: No How did fall occur: Getting [...] completed by:Taniya Jenkins patient has no complaints.. [facility] ALLIED HEALTHon 12-14-2021 ALLIED HEALTH HNO ID: [id number] Author: RT Isela(Emily) Service: Radiology Author Type: [...] PERIPHERAL IV DATA: Not applicable SIGNED BY: Marion Kaufman RT(R) December 14, 2021 4:44 PM [facility] HNO ID: [id number] Author: RT Herve(R) Service: Radiology Author Type: Technologist Type: [facility] Filed: 12/14/2021 2:09 PM Note Text: Radiology [...] RT Herve(R) December 14, 2021 2:09 PM [facility] HNO ID: [id number] Author: Mc Khan RT(R) Service: Radiology Author Type: Technologist Type: [facility] Filed: 12/13/2021 10:47 PM Note Text: Radiology [...] PERIPHERAL IV DATA: Not applicable SIGNED BY: Mc Khan, RT(R) December 13, 2021 10:47 PM [facility] ANES POSTPROC EVALon 022 ANES POSTPROC EVAL HNO ID: [id number] Author: Ted Mckeon DO Service: Anesthesiology Author Type: Physician Type: Anesthesia Postprocedure Evaluation Filed: 12/14/2021 6:55 PM Note Text: POST ANESTHESIA EVALUATION NOTE : 1955 Procedure Summary Date: 12/14/21 Room / Location: [place] OR 08 / [place] OR Anesthesia Start: 1222 Anesthesia [...] 12 12/14/21 1755 SpO2 96 % 12/14/21 175 Vitals shown include unvalidated device data. Post [...] December 14, 2021 TIME: 6:54 PM CSN: [id number] [facility] ANES PRE-OPon 12-14-2021 ANES PRE-OP HNO ID: [id number] Author: Ted Mckeon DO Service: Anesthesiology Author Type: Physician Type: Anesthesia Preprocedure Evaluation Filed: 12/14/2021 11:54 AM Note Text: ANESTHESIOLOGY DAY OF SURGERY NOTE : 1955 Procedure Information Date/Time: 12/14/211124 Procedure: HEMIARTHROPLASTY REPLACE JOINT PARTIAL HIP (Left: Hip) Location: [place] / [place] Surgeons: Yasmany Roman MD [...] and consent discussed: yes. Patient / Responsible Republican agrees to proceed: yes Patient / Surrogate agrees to blood products: blood products not planned Vitals Value Taken Time BP 154/86 12/14/21 1118 Pulse 85 12/14/21 1118 Resp 18 12/14/21 1118 Temp 36.2 ?C (97.2 ?F) 12/14/21 111 SpO2 97 % 12/14/21 111 Facility-Administered Medications as of 12/14/2021 Medication Dose [...] December 14, 2021 TIME: 11:52 AM CSN: [id number] [facility] BRIEF OP NOTon 12-14-2021 BRIEF OP NOT HNO ID: [id number] Author: Zach Heart MD Service: Orthopaedic Pediatrics Author Type: Resident Type: Brief Op Note Filed: 12/14/2021 4:03 PM Note Text: ORTHO BRIEF OPERATIVE REPORT PATIENT NAME: Claribel Stoll LOG ID: [id number] Surgery/Procedure Date: 12/14/2021 Incision/Procedure Start Time: 1:03 PM Incision Close/Procedure End Time: 3:52 PM Surgeon(s)/Procedurali st(s) and Channel Lip Wetter(s): Surgeon(s) and Role: * Yasmany Roman MD [...] gap [Moles/Vol] 11 mmol/L Normal 9-18 [facility] Comment on above: Order Comment: Speci men Type: BLOOD SPECIMENOrdering Facility: [facility] Address: [address] [place] [address] Performed By: #### 2 4321-2, , 75112-7 ####[facility] LABORATORYCLIA [id number] [place] [address] [place] Calcium [Mass/Vol] 8.6 mg/dL Normal 8.5-10.2 [facility] Comment on above: Order Comment: Speci men Type: BLOOD SPECIMENOrdering Facility: [facility] Address: [address] [place] [address] Performed By: #### 2 4321-2, , 97751-1 ####[facility] LABORATORYCLIA [id number] [place] [address] [place] Chloride [Moles/Vol] 102 mmol/L Normal 97-105 [facility] Comment on above: Order Comment: Speci men Type: BLOOD SPECIMENOrdering Facility: [facility] Address: [address] [place] [address] Performed By: #### 2 4321-2, , 01984-5 ####[facility] LABORATORYCLIA [id number] [place] [address] [place] CO2 [Moles/Vol] 24 mmol/L Normal 22-30 [facility] Comment on above: Order Comment: Speci men Type: BLOOD SPECIMENOrdering Facility: [facility] Address: [address] [place] [address] Performed By: #### 2 4321-2, , 38274-5 ####[facility] LABORATORYCLIA [id number] [place] [id number] [place] Creatinine [Mass/Vol] 0.66 mg/dL Normal 0.58-0.96 [facility] Comment on above: Order Comment: Speci men Type: BLOOD SPECIMENOrdering Facility: [facility] Address: [address] [place] [address] Performed By: #### 2 4321-2, , 21687-7 ####[facility]CL[facility] [id number] [address] STATES OF [facility] ESTIMATED GLOMERULAR FILTRATION RATE 96 mL/min/1.73m??? Normal >=60 [facility] Comment on above: Order Comment: Speci men Type: BLOOD SPECIMENOrdering Facility: [facility] Address: [address] [place] [address] Result Comment: Jessa mated Glomerular Filtration Rate [...] actual GFR. Performed By: #### 2 4321-2, , 53088-7 ####[facility] LABORATORYCLIA [id number] [place] [address] [place] Glucose [Mass/Vol] 105 mg/dL High 74-99 [facility] Comment on above: Order Comment: Speci men Type: BLOOD SPECIMENOrdering Facility: [facility] Address: [address] [place] [address] Result Comment: The [place] [employer] Association (ADA) provides guidance for cutoff [...] Standards of Medical Care in Diabetes 2016, [place] [employer]. Diabetes Care. 2016.39(Suppl 1). Performed By: #### 2 4321-2, 18734-1, 72091-1 ####[facility] LABORATORYCLIA [id number] [place] [address] [place] Potassium [Moles/Vol] Normal [facility] Comment on above: Order Comment: Specrodo herrera Type: BLOOD SPECIMENOrdering Facility: [facility] Address: [address] [place] [address] Result Comment: Unab le to assay due to interference from hemolysis. Suggest reorder as clinically indicated. Performed By: #### 2 4321-2, , 40379-2 ####[facility] LABORATORYCLIA [id number] [place] [address] [place] Sodium [Moles/Vol] 137 mmol/L Normal 136-144 [facility] Comment on above: Order Comment: Kinsey herrera Type: BLOOD SPECIMENOrdering Facility: [facility] Address: [address] [place] [address] Performed By: #### 2 4321-2, 33775-0, 77479-5 ####[facility] LABORATORYCLIA [id number] [place] [address] [place] Urea nitrogen [Mass/Vol] 11 mg/dL Normal 7-21 [facility] Comment on above: Order Comment: Kinsey herrera Type: BLOOD SPECIMENOrdering Facility: [facility] Address: [address] [place] [address] Performed By: #### 2 4321-2, , 12192-5 ####[facility]ORATORYCLIA [id number] [place] [address] [place] CBC W Auto Differential pane l (Bld)on 12-14-2021 Basophils (Bld) [#/Vol] 0.05 10*3/uL Normal <0.11 [facility] Comment on above: Order Comment: Speci men Type: BLOOD SPECIMENOrdering Facility: [facility] Address: [address] [place] [address] Performed By: #### 5 7021-8 ####[facility] LABORATORYCLIA [id number] [address] STATES [facility] Basophils/100 WBC (Bld) 0.4 % Normal A [facility] Comment on above: Order Comment: Speci men Type: BLOOD SPECIMENOrdering Facility: [facility] Address: [address] [place] [address] Performed By: #### 5 7021-8 ####[facility] LABORATORYCLIA [id number] [address] STATES [facility] Differential cell count method Nom (Bld) Auto Normal [facility] Comment on above: Order Comment: Speci men Type: BLOOD SPECIMENOrdering Facility: [facility] Address: [address] [place] [address] Performed By: #### 5 7021-8 ####[facility] LABORATORYCLIA [id number] [place] [address] [place] Eosinophils (Bld) [#/Vol] 0.59 10*3/uL High <0.46 [facility] Comment on above: Order Comment: Speci men Type: BLOOD SPECIMENOrdering Facility: [facility] Address: [address] [place] [address] Performed By: #### 5 7021-8 ####[facility]ORATORYCLIA [id number] [address] [place] Eosinophils/100 WBC (Bld) 5.1 % Normal [facility] Comment on above: Order Comment: Speci men Type: BLOOD SPECIMENOrdering Facility: [facility] Address: [facility] [place] [address] Performed By: #### 5 7021-8 ####[facility] LABORATORYCLIA [id number] [address] Erythrocyte distribution width (RBC) [Ratio] 14.3 % Normal 11.5-15.0 [facility] Comment on above: Order Comment: Speci men Type: BLOOD SPECIMENOrdering Facility: [facility] Address: [address] [place] [address] Performed By: #### 5 7021-8 ####[facility] LABORATORYCLIA [id number] [address] [place] Hematocrit (Bld) [Volume fraction] 37.4 % Normal 36.0-46.0 [facility] Comment on above: Order Comment: Speci men Type: BLOOD SPECIMENOrdering Facility: [facility] Address: [address] [place] [address] Performed By: #### 5 7021-8 ####[facility] LABORATORYCLIA [id number] [address] [place] Hemoglobin (Bld) [Mass/Vol] 12.1 g/dL Normal 11.5-15.5 [facility] Comment on above: Order Comment: Speci men Type: BLOOD SPECIMENOrdering Facility: [facility] Address: [address] [place] [address] Performed By: #### 5 7021-8 ####[facility] LABORATORYCLIA [id number] [address] Immature granulocytes (Bld) [#/Vol] 0.03 10*3/uL Normal <0.10 [facility] Comment on above: Order Comment: Speci men Type: BLOOD SPECIMENOrdering Facility: [facility] Address: [address] [place] [address] Performed By: #### 5 7021-8 ####[facility] LABORATORYCLIA [id number] [address] Immature granulocytes/100 WBC (Bld) 0.3 % Normal [facility] Comment on above: Order Comment: Speci men Type: BLOOD SPECIMENOrdering Facility: [facility] Address: [address] [place] [address] Performed By: #### 5 7021-8 ####[facility] LABORATORYCLIA [id number] [place] [address] [place] Lymphocytes (Bld) [#/Vol] 2.87 10*3/uL Normal 1.00-4.00 [facility] Comment on above: Order Comment: Speci men Type: BLOOD SPECIMENOrdering Facility: [facility] Address: [address] [place] [address] Performed By: #### 5 7021-8 ####[facility] LABORATORYCLIA [id number] [address] Lymphocytes/100 WBC (Bld) 25.0 % Normal [facility] Comment on above: Order Comment: Speci men Type: BLOOD SPECIMENOrdering Facility: [facility] Address: [address] [place] [address] Performed By: #### 5 7021-8 ####[facility] LABORATORYCLIA [id number] [address] [place] MCH (RBC) [Entitic mass] 29.9 pg Normal 26.0-34.0 [facility] Comment on above: Order Comment: Speci men Type: BLOOD SPECIMENOrdering Facility: [facility] Address: [address] [place] [address] Performed By: #### 5 7021-8 ####[facility] LABORATORYCLIA [id number] [address] MCHC (RBC) [Mass/Vol] 32.4 g/dL Normal 30.5-36.0 [facility] Comment on above: Order Comment: Speci men Type: BLOOD SPECIMENOrdering Facility: [facility] Address: [address] [place] [address] Performed By: #### 5 7021-8 ####[facility] LABORATORYCLIA [id number] [address] [place] MCV (RBC) [Entitic vol] 92.3 fL Normal 80.0-100.0 A [facility] Comment on above: Order Comment: Speci men Type: BLOOD SPECIMENOrdering Facility: [facility] Address: [address] [place] [address] Performed By: #### 5 7021-8 ####[facility] LABORATORYCLIA [id number] [address] [place] Monocytes (Bld) [#/Vol] 1.03 10*3/uL High <0.87 [facility] Comment on above: Order Comment: Speci men Type: BLOOD SPECIMENOrdering Facility: [facility] Address: [address] [place] [address] Performed By: #### 5 7021-8 ####[facility] LABORATORYCLIA [id number] [address] [place] Monocytes/100 WBC (Bld) 9.0 % Normal A [facility] Comment on above: Order Comment: Speci men Type: BLOOD SPECIMENOrdering Facility: [facility] Address: [address] [place] [address] Performed By: #### 5 7021-8 ####[facility] LABORATORYCLIA [id number] [address] [place] Neutrophils (Bld) [#/Vol] 6.90 10*3/uL Normal 1.45-7.50 [facility] Comment on above: Order Comment: Speci men Type: BLOOD SPECIMENOrdering Facility: [facility] Address: [address] [place] [address] Performed By: #### 5 7021-8 ####[facility] LABORATORYCLIA [id number] [address] [place] Neutrophils/100 WBC (Bld) 60.2 % Normal [facility] Comment on above: Order Comment: Speci men Type: BLOOD SPECIMENOrdering Facility: [facility] Address: [address] Performed By: #### 5 7021-8 ####[facility] LABORATORYCLIA [id number] [address] Nucleated RBC (Bld) [#/Vol] 10*3/uL Normal <0.01 [facility] Comment on above: Order Comment: Speci men Type: BLOOD SPECIMENOrdering Facility: [facility] [facility] Address: [address] Performed By: #### 5 7021-8 ####[facility] LABORATORYCLIA [id number] [address] [place] Nucleated RBC/100 WBC (Bld) [Ratio] 0.0 /100 WBC Normal [facility] Comment on above: Order Comment: Speci men Type: BLOOD SPECIMENOrdering Facility: [facility] Address: [address] Performed By: #### 5 7021-8 ####[facility] LABORATORYCLIA [id number] [address] OF [place] Platelet mean volume (Bld) [Entitic vol] 10.8 fL Normal 9.0-12.7 [facility] Comment on above: Order Comment: Speci men Type: BLOOD SPECIMENOrdering Facility: [facility] Address: [address] Performed By: #### 5 7021-8 ####[facility] LABORATORYCLIA [id number] [address] [place] Platelets (Bld) [#/Vol] 324 10*3/uL Normal 150-400 [facility] Comment on above: Order Comment: Speci men Type: BLOOD SPECIMENOrdering Facility: [facility] Address: [address] [place], [place] [address] Performed By: #### 5 7021-8 ####[facility] LABORATORYCLIA [id number] [address] [place] RBC (Bld) [#/Vol] 4.05 10*6/uL Normal 3.90-5.20 [facility] Comment on above: Order Comment: Speci men Type: BLOOD SPECIMENOrdering Facility: [facility] Address: [address] [place] [address] Performed By: #### 5 7021-8 ####[facility] LABORATORYCLIA [id number] [address] [place] WBC (Bld) [#/Vol] 11.47 10*3/uL High 3.70-11.00 [facility] Comment on above: Order Comment: Speci men Type: BLOOD SPECIMENOrdering Facility: [facility] Address: [address] [place] [address] Performed By: #### 5 7021-8 ####[facility] LABORATORYCLIA [id number] [address] CONSULTon 12-14-2021 CONSULT HNO ID: [id number] Author: Adam Mei MD Service: General Internal Medicine Author Type: Physician Type: Consults Filed: 12/14/2021 6:06 AM Note Text: DEPARTMENT OF HOSPITAL MEDICINE Consult SERVICE DATE: 12/14/2021 SERVICE TIME: 1:02 AM Primary Care Physician: No primary care provider on file. NIGHT AND WEEKEND COVERAGE: From 7am - 7pm, please call Sound After 7pm, please call cross cover pager #[phone] Subjective CHIEF COMPLAINT: Left hip pain HPI: [...] QTC Calculation(Bazett) : 465 ms Calculated P [place] : 82 degrees Calculated R [place] : 81 degrees Calculated T [place] : 74 degrees NORMAL SINUS RHYTHM NORMAL ECG WHEN COMPARED WITH ECG OF 04-SEP-2015 18:42, NO SIGNIFICANT CHANGE WAS FOUND Confirmed by MD GIBBONS ANUBHAV ([id number]) on 12/14/2021 2:45:00 PM NAME : CLARIBEL STOLL PID : [id number] : 1955 Gender : Female Race : ORD : [id number] Procedure Date : Dec 14 2021 02:14:12 Edit Date : Dec 14 2021 14:45:01 Diagnosis: NORMAL SINUS RHYTHM NORMAL ECG WHEN COMPARED WITH ECG OF 04-SEP-2015 18:42, NO SIGNIFICANT CHANGE WAS FOUND Confirmed by MD GIBBONS ANUBHAV ([id number]) on 12/14/2021 2:45:00 PM Test Reason : Pre-OP Location : 152 : [facility] Overread By : MD GIBBONS ANUBHAV Edited By : MD GIBBONS ANUBHAV Referred By : , Acquired by : JUAQUIN KAMINSKI [facility] ED NOTEon 12-14-2021 ED NOTE HNO ID: [id number] Author: Radha Vines RN Service: Emergency Medicine Author Type: Registered Nurse Type: ED Notes Filed: 12/13/2021 11:24 PM Note Text: Transport in to take pt up and pt PIV was out on bed. Attempted to call 52B to update on unplanned removal. No answer on the floor, pt sent up with transport to . [facility] ED NOTE HNO ID: [id number] Author: Radha Vines RN Service: Emergency Medicine Author Type: Registered Nurse Type: ED Notes Filed: 12/13/2021 10:40 PM Note Text: MD lama aware of inability to re access a PIV. [facility] ED NOTE HNO ID: [id number] Author: Radha Vines RN Service: Emergency Medicine Author Type: Registered Nurse Type: ED Notes Filed: 12/13/2021 10:32 PM Note Text: Unplanned removal of IV. Unable to obtain a second access. Admit paged. Normal [facility] ED NOTE HNO ID: [id number] Author: Radha Vines RN Service: Emergency Medicine Author Type: Registered Nurse Type: ED Notes Filed: 12/13/2021 10:13 PM Note Text: Pt given sandwich. Xray called. Normal [facility] Magnesium SerPl-mCncon 12-14 Magnesium [Mass/Vol] 2.1 mg/dL Normal 1.7-2.3 [facility] Comment on above: Order Comment: Speci men Type: BLOOD SPECIMENOrdering Facility: [facility] Address: [address] [place] [address] Performed By: #### 2 4321-2, 47750-5, 44441-8 ####[facility] LABORATORYIA [id number] [address] NT[facility]BNP [facility]14 Natriuretic peptide.B prohormone N-Terminal [Mass/Vol] 186 pg/mL High <125 [facility] Comment on above: Order Comment: Speci men Type: BLOOD SPECIMENOrdering Facility: [facility] Address: [address] [place] [address] Performed By: #### 2 4321-2, 37215-4, 99707-1 ####[facility]CL[facility] [id number] [address] NURSING PROGon 12-14-2021 NURSING PROG HNO ID: [id number] Author: Katelin Saldaña RN Service: Nursing Author Type: Registered Nurse Type: Nursing Progress Note Filed: 12/14/2021 9:53 AM Note Text: Attempt to call Brothosvaldo Duval to make aware of patient surgery time, phone busy. Attempt to call x2. Normal [facility] OPERATIVE NOon 12-14-2021 OPERATIVE NO HNO ID: [id number] Author: Yasmany Roman MD Service: Orthopaedic Surgery Author Type: Physician Type: Operative Report Filed: 12/15/2021 4:07 PM Note Text: [facility] - Operative Report CLARIBEL STOLL : 1955 AGE: 66. SEX: F PATIENT TYPE: I [place] [facility] [place] [facility] LOCATION: [facility] ATTENDING PHYSICIAN: YASMANY ROMAN CSN NUMBER: [id number] DATE OF SURGERY/PROCEDURE: 12/14/2021 INCISION/PROCEDURE START TIME: 1:03 PM INCISION CLOSE/PROCEDURE END TIME: 3:52 PM PREOPERATIVE DIAGNOSIS: Subcapital fracture, left hip. POSTOPERATIVE DIAGNOSIS: Subcapital fracture, left hip. SURGEON: Yasmany Roman MD WEAVER HAND LOOM: Operating room personnel. SURGERY/PROCEDURE: Hemiarthroplasty, left hip. [...] the right lateral decubitus position on the [facility] backpack. She was prepped and draped [...] again reduced. The capsule was closed with fbezar-ws-qhwea sutures of #1 Nurolon. The piriformis was reattached to the greater trochanter with 1 Nurolon suture. The retractor was removed. The fascia was closed with bfqusu-tl-tpjtd sutures of #1 Nurolon. The subcutaneous tissue [...] the procedure quite well. Yasmany Roman MD PGW:[id number] /[id number] Normal [facility] PT panel Coag (PPP)on 2021 INR Coag (PPP) [Relative time] 1.0 {INR} Normal <1.4 [facility] Comment on above: Order Comment: Speci men Type: BLOOD SPECIMENOrdering Facility: [facility] Address: [address] [place] [id number] Result Comment: Suzan min K Antagonist (VKA) Therapeutic Range: INR 2 to 3 (Target INR of 2.5) Note: For patients treated with VKA drugs, such as warfarin, the [employer] 2012 Guideline recommends [...] Chest 2012, 141:7S-47S Harpreet RA, et al. [facility] 2017, 70: 252-289 Performed By: #### 1 4979-9, 23140-9 ####[facility] LABORATORYCLIA [id number] [address] OF [facility] PT Coag (PPP) [Time] 8.9 s Normal <13.1 [facility] Comment on above: Order Comment: Speci men Type: BLOOD SPECIMENOrdering Facility: [facility] Address: [address] [place] [address] Performed By: #### 1 4979-9, 60931-9 ####[facility] LABORATORYCLIA [id number] [address] SURGICAL PATHOLOGYon CASE REPORT Normal [facility] Comment on above: Order Comment: Speci men Type: SPECIMEN FROM BONE [facility]: [facility] Address: [address] [place] [address] Result Comment: Surg ical Pathology Report Case: [id number] Authorizing Provider: Yasmany Roman MD Collected: 12/14/2021 02:48 PM Ordering Location: [facility] Received: 12/16/2021 07:27 AM Pathologist: Aleah Franco MD Specimen: FEMORAL HEAD LEFT Performed By: #### S #### [facility] CLIA [id number] [address] CLINICAL HISTORY Normal [facility] Comment on above: Order Comment: Speci men Type: SPECIMEN FROM BONE [facility]: [facility] Address: [address] [place] [address] Result Comment: Pre- op diagnosis: Closed displaced fracture of left femoral neck (HCC) [S72.002A] Performed By: #### S #### [facility] CLIA [id number] [address] FINAL DIAGNOSIS Normal [facility] Comment on above: Order Comment: Speci men Type: SPECIMEN FROM BONE [facility]ing [facility]: [facility] Address: [address] [place] [address] Result Comment: Femo ral head, left, hip arthroplasty: - Fragmentation of the bony trabeculae with hemorrhage into the medullary cavity, consistent with recent fracture. - Soft tissue with no pathologic diagnosis. - No malignancy is seen. Performed By: #### S #### [facility] CLIA [id number] [address] FINAL PERFORMING LAB Normal [facility] Comment on above: Order Comment: Speci men Type: SPECIMEN FROM BONE [facility]ing Facility: [facility] Address: [address] [place] [address] Result Comment: Diag nostic interpretation performed at [facility], [address] [place] [address] CLIA# [id number] Apartment Maintenance Worker: Yao Rodriguez M.D. Performed By: #### S #### [facility] CLIA [id number] [address] [place] [address] GROSS DESCRIPTION Normal [facility] Comment on above: Order Comment: Speci men Type: SPECIMEN FROM BONE [facility]ing [facility]: [facility] Address: [address] [place] [address] Result Comment: A. F EMORAL HEAD LEFT Received in formalin labeled as "femoral head left" is a femoral head measuring approximately 4.4 x 4.4 x 4.4 cm. The articular surface is roughened, however no distinctive area of eburnation is identified. No osteophytes are present. The surgical neck is ragged and hemorrhagic. Matlock-wilkerson soft tissue is mildly adherent to the bone. Sectioning reveals wilkerson-red, slightly hemorrhagic, hard trabecular cut surfaces. No areas of necrosis or subchondral cystic structures are identified.A lso present in the container are multiple wilkerson-pink, ragged, hemorrhagic bone fragments aggregating to 3.5 x 3.5 x 2.3 cm. Cmv Driver sections are submitted as follows: A1 soft tissue; A2-A3 bone after decalcification. Gross examination performed at [facility], [address] [place] [address] CLIA# [id number] RSA December 16, 2021 9:41 AM Performed By: #### S #### [facility] CLIA [id number] [address] [place] Urinalysis complete panel (U )on 12-14-2021 Bacteria LM.HPF (Urine sed) [#/Area] Few Abnormal None Seen [facility] Comment on above: Order Comment: Speci men Type: URINE SPECIMENOrdering Facility: [facility] Address: [address] [place] [address] Performed By: #### 2 4356-8 ####[facility] LABORATORYCLIA [id number] [address] [place] Bilirubin Ql (U) Negative Normal Negative [facility] Comment on above: Order Comment: Speci men Type: URINE SPECIMENOrdering Facility: [facility] Address: [address] [place] [address] Performed By: #### 2 4356-8 ####[facility] LABORATORYCLIA [id number] [address] [place] Clarity (Unsp spec) Turbid Abnormal Clear [facility] Comment on above: Order Comment: Speci men Type: URINE SPECIMENOrdering Facility: [facility] Address: [address] [place] [place] [address] Performed By: #### 2 4356-8 ####[facility] LABORATORYCLIA [id number] [address] STATES [facility] Color (U) Yellow Normal yellow [facility] Comment on above: Order Comment: Speci men Type: URINE SPECIMENOrdering Facility: [facility] Address: [address] [place], [place] [address] Performed By: #### 2 4356-8 ####[facility] LABORATORYCLIA [id number] [address] Epithelial cells LM.HPF (Urine sed) [#/Area] Few Normal [facility] Comment on above: Order Comment: Speci men Type: URINE SPECIMENOrdering Facility: [facility] Address: [address] [place] [address] Performed By: #### 2 4356-8 ####[facility] LABORATORYCLIA [id number] [address] Glucose Test strip (U) [Mass/Vol] Negative Normal Negative [facility] Comment on above: Order Comment: Speci men Type: URINE SPECIMENOrdering Facility: [facility] Address: [address] [place] [address] Performed By: #### 2 4356-8 ####[facility] LABORATORYCLIA [id number] [address] Hemoglobin Ql (U) Negative Normal Negative [facility] Comment on above: Order Comment: Speci men Type: URINE SPECIMENOrdering Facility: [facility] Address: [address] [place] [address] Performed By: #### 2 4356-8 ####[facility] LABORATORYCLIA [id number] [address] Ketones Ql (U) Negative Normal Negative [facility] Comment on above: Order Comment: Speci men Type: URINE SPECIMENOrdering Facility: [facility] Address: [address] [place] [place] [address] Performed By: #### 2 4356-8 ####[facility] LABORATORYCLIA [id number] [address] Leukocyte esterase Test strip Ql (U) Negative Normal Negative [facility] Comment on above: Order Comment: Speci men Type: URINE SPECIMENOrdering Facility: [facility] Address: [address] [place] [address] Performed By: #### 2 4356-8 ####[facility] LABORATORYCLIA [id number] [address] STATES [facility] Nitrite Ql (U) 2+ Abnormal Negative [facility] Comment on above: Order Comment: Speci men Type: URINE SPECIMENOrdering Facility: [facility] Address: [address] [place] [address] Performed By: #### 2 4356-8 ####[facility] LABORATORYCLIA [id number] [address] [place] pH (U) 8.0 [pH] Normal 5.0-8.0 [facility] Comment on above: Order Comment: Speci men Type: URINE SPECIMENOrdering Facility: [facility] Address: [address] [place] [address] Performed By: #### 2 4356-8 ####[facility]CLIA [id number] [address] Protein (U) [Mass/Vol] Trace Abnormal Negative [facility] Comment on above: Order Comment: Speci men Type: URINE SPECIMENOrdering Facility: [facility] Address: [address] [place] [address] Performed By: #### 2 4356-8 ####[facility] LABORATORYCLIA [id number] [address] RBC LM.HPF (Urine sed) [#/Area] 0-3 /HPF Normal 0-3 /HPF [facility] Comment on above: Order Comment: Speci men Type: URINE SPECIMENOrdering Facility: [facility] Address: [address] [place] [address] Performed By: #### 2 4356-8 ####[facility] LABORATORYCLIA [id number] [address] Specific gravity (U) [Rel density] 1.021 Normal 1.005-1.030 [facility] Comment on above: Order Comment: Speci men Type: URINE SPECIMENOrdering Facility: [facility] Address: [address] [place] [address] Performed By: #### 2 4356-8 ####[facility] LABORATORYCLIA [id number] [address] Triple phosphate crystals LM.HPF (Urine sed) [#/Area] Few Abnormal None Seen [facility] Comment on above: Order Comment: Speci men Type: URINE SPECIMENOrdering Facility: [facility] Address: [address] [place] [address] Performed By: #### 2 4356-8 ####[facility] LABORATORYCLIA [id number] [address] Urobilinogen Ql (U) 1+ Abnormal Negative [facility] Comment on above: Order Comment: Speci men Type: URINE SPECIMENOrdering Facility: [facility] Address: [address] [place] [address] Performed By: #### 2 4356-8 ####[facility] LABORATORYCLIA [id number] [address] STATES [facility] WBC LM.HPF (Urine sed) [#/Area] 0-5 /HPF Normal 0-5 /HPF [facility] Comment on above: Order Comment: Speci men Type: URINE SPECIMENOrdering Facility: [facility] Address: [address] [place] [address] Performed By: #### 2 4356-8 ####[facility] LABORATORYCLIA [id number] [address] [place] XR FEMUR 2V AP/LAT LTon [...] normal. IMPRESSION: No additional femur fracture identified. Survey Statistician: AYUSH Transcribe Date/Time: Dec 13 2021 11:29P Dictated [...] prior to placement of left hip prosthesis. Survey Statistician: [facility] Transcribe Date/Time: Dec 19 2021 2:58P Dictated [...] left total hip arthroplasty without discrete complication. Survey Statistician: PSCB Transcribe Date/Time: Dec 14 2021 5:11P Dictated by : RANDEE PHILLIPS MD This examination was interpreted and the report reviewed and electronically signed by: RANDEE PHILLIPS MD on Dec 14 2021 5:11PM EST [id number] Normal [facility] aPTT PPPon 12-14-2021 aPTT Coag (PPP) [Time] 21.4 s Low 28.5-34.0 [facility] Comment on above: Order Comment: Speci men Type: BLOOD SPECIMENOrdering Facility: [facility] Address: [address] [place] [address] Performed By: #### 1 4979-9, 90137-2 ####[facility] LABORATORYCLIA [id number] [address] STATES OF [facility] ALLIED HEALTHon 12-13-2021 ALLIED HEALTH HNO ID: [id number] Author: RT Kylee(Emily) Service: Radiology Author Type: Technologist Type: Allied [...] [facility] ALLIED HEALTH HNO ID: [id number] Author: RT Penelope(R) Service: Radiology Author Type: Home Office Claims Examiner Type: Allied Health Filed: 12/13/2021 7:30 PM [...] gap [Moles/Vol] 10 mmol/L Normal 9-18 [facility] Comment on above: Order Comment: Speci men Type: BLOOD SPECIMEN [facility] Address: [address] [place] [address] Performed By: #### T SCR #### [facility] CLIA [id number] [address] [place] [address] [place] Calcium [Mass/Vol] 8.9 mg/dL Normal 8.5-10.2 [facility] Comment on above: Order Comment: Speci men Type: BLOOD SPECIMEN [facility]ing Facility: [facility] Address: [address] [place] [address] Performed By: #### T SCR #### [facility] CLIA [id number] [address] Chloride [Moles/Vol] 104 mmol/L Normal 97-105 [facility] Comment on above: Order Comment: Speci men Type: BLOOD SPECIMEN [facility] Address: [address] [place] [address] Performed By: #### T SCR #### [facility] CLIA [id number] [address] CO2 [Moles/Vol] 25 mmol/L Normal 22-30 [facility] Comment on above: Order Comment: Speci men Type: BLOOD SPECIMEN [facility]ing [facility]: [facility] Address: [address] [place] [address] Performed By: #### T SCR #### [facility] CLIA [id number] [address] Creatinine [Mass/Vol] 0.75 mg/dL Normal 0.58-0.96 [facility] Comment on above: Order Comment: Speci men Type: BLOOD SPECIMEN [facility]ing Facility: [facility] Address: [address] [place] [address] Performed By: #### T SCR #### [facility] CLIA [id number] [address] ESTIMATED GLOMERULAR FILTRATION RATE 87 mL/min/1.73m??? Normal >=60 [facility] Comment on above: Order Comment: Speci men Type: BLOOD SPECIMEN [facility]ing Facility: [facility] Address: [address] [place] [address] Result Comment: Jessa mated Glomerular Filtration Rate [...] GFR. Performed By: #### T SCR #### [facility] CLIA [id number] [address] [place] Glucose [Mass/Vol] 98 mg/dL Normal 74-99 [facility] Comment on above: Order Comment: Speci men Type: BLOOD SPECIMEN Ordering Facility: [facility] Address: [address] [place] [address] Result Comment: The [place] [employer] (ADA) provides guidance for cutoff [...] Standards of Medical Care in Diabetes 2016, [place] [employer]. Diabetes Care. 2016.39(Suppl 1). Performed By: #### T SCR #### [facility] CLIA [id number] [address] [place] Potassium [Moles/Vol] 3.9 mmol/L Normal 3.7-5.1 [facility] Comment on above: Order Comment: Speci men Type: BLOOD SPECIMEN [facility]ing Facility: [facility] Address: [address] [place] [address] Performed By: #### T SCR #### [facility] CLIA [id number] [address] [place] [address] [place] Sodium [Moles/Vol] 139 mmol/L Normal 136-144 [facility] Comment on above: Order Comment: Speci men Type: BLOOD SPECIMEN [facility]ing Facility: [facility] Address: [address] [place] [address] Performed By: #### T SCR #### [facility] CLIA [id number] [address] [place] [address] [place] Urea nitrogen [Mass/Vol] 10 mg/dL Normal 7-21 [facility] Comment on above: Order Comment: Speci men Type: BLOOD SPECIMEN Ordering Facility: [facility] Address: [address] [place] [address] Performed By: #### T SCR #### [facility] CLIA [id number] [address] CBC panel Auto (Bld)on 12-13 Erythrocyte distribution width (RBC) [Ratio] 13.6 % Normal 11.5-15.0 [facility] Comment on above: Order Comment: Speci men Type: BLOOD SPECIMEN [facility]ing Facility: [facility] Address: [address] [place] [address] Performed By: #### T SCR #### [facility] CLIA [id number] [address] Hematocrit (Bld) [Volume fraction] 38.4 % Normal 36.0-46.0 [facility] Comment on above: Order Comment: Speci men Type: BLOOD SPECIMEN [facility]ing Facility: [facility] Address: [address] [place] [address] Performed By: #### T SCR #### [facility] CLIA [id number] [address] Hemoglobin (Bld) [Mass/Vol] 12.3 g/dL Normal 11.5-15.5 [facility] Comment on above: Order Comment: Speci men Type: BLOOD SPECIMEN Ordering Facility: [facility] Address: [address] [place] [address] Performed By: #### T SCR #### [facility] BLOOD B[facility] CLIA [id number] [address] MCH (RBC) [Entitic mass] 29.6 pg Normal 26.0-34.0 [facility] Comment on above: Order Comment: Speci men Type: BLOOD SPECIMEN Ordering Facility: [facility] Address: [address] [place] [address] Performed By: #### T SCR #### [facility] BLOOD BANK CLIA [id number] [address] MCHC (RBC) [Mass/Vol] 32.0 g/dL Normal 30.5-36.0 [facility] Comment on above: Order Comment: Speci men Type: BLOOD SPECIMEN Ordering Facility: [facility] Address: [address] [place] [address] Performed By: #### T SCR #### [facility] BLOOD BANK CLIA [id number] [address] MCV (RBC) [Entitic vol] 92.3 fL Normal 80.0-100.0 [facility] Comment on above: Order Comment: Speci men Type: BLOOD SPECIMEN Ordering Facility: [facility] Address: [address] [place] [address] Performed By: #### T SCR #### [facility] BLOOD B[facility] CLIA [id number] [address] Nucleated RBC (Bld) [#/Vol] 10*3/uL Normal <0.01 [facility] Comment on above: Order Comment: Speci men Type: BLOOD SPECIMEN Ordering Facility: [facility] Address: [address] [place] [address] Performed By: #### T SCR #### [facility] BLOOD B[facility] CLIA [id number] [address] Platelet mean volume (Bld) [Entitic vol] 9.9 fL Normal 9.0-12.7 [facility] Comment on above: Order Comment: Speci men Type: BLOOD SPECIMEN Ordering Facility: [facility] Address: [address] [place] [address] Performed By: #### T SCR #### [facility] BLOOD BANK CLIA [id number] [address] OF [place] Platelets (Bld) [#/Vol] 298 10*3/uL Normal 150-400 [facility] Comment on above: Order Comment: Speci men Type: BLOOD SPECIMEN Ordering Facility: [facility] Address: [address] [place] [address] Performed By: #### T SCR #### [facility] BLOOD B[facility] CLIA [id number] [address] OF [facility] RBC (Bld) [#/Vol] 4.16 10*6/uL Normal 3.90-5.20 [facility] Comment on above: Order Comment: Speci men Type: BLOOD SPECIMEN Ordering Facility: [facility] Address: [address] [place] [address] Performed By: #### T SCR #### [facility] BLOOD B[facility] CLIA [id number] [address] WBC (Bld) [#/Vol] 12.97 10*3/uL High 3.70-11.00 [facility] Comment on above: Order Comment: Speci men Type: BLOOD SPECIMEN Ordering Facility: [facility] Address: [address] [place] [address] Performed By: #### T SCR #### [facility] BLOOD BANK CLIA [id number] [address] BRAIN WO IVCONon 12-14-19 CT BRAIN WO IVCON * * *Final Report* * * DATE OF EXAM: Dec 13 2021 7:35PM [facility] 0504 - CT BRAIN WO IVCON [...] changes. There is no acute intracranial abnormality. Survey Statistician: AYUSH Transcribe Date/Time: Dec 13 2021 7:51P [...] DATE OF EXAM: Dec 13 2021 7:35PM [facility] 0505 - CT CERVICAL SPINE WO [...] pain persists, follow up studies are suggested. Survey Statistician: [facility] Transcribe Date/Time: Dec 13 2021 7:53P Dictated by : GARY RIOS MD This examination was interpreted and the report reviewed and electronically signed by: GARY RIOS MD on Dec 13 2021 7:55PM EST [id number] Normal [facility] ED NOTEon 12-13-2021 ED NOTE HNO ID: [id number] Author: Marin Waters, Medic Service: ? Author Type: Health Benefits Specialist and Home Office Claims Examiner Type: ED Notes Filed: 12/13/2021 5:48 PM Note Text: Bed: 13-ED Expected date: Expected time: Means of arrival: Dawna /EMS Comments: Hip Fx fell 3 days ago WFD Normal [facility] ED PROV NOTEon 12-13-2021 ED PROV NOTE HNO ID: [id number] Author: Wilbert Vang MD Service: Emergency Medicine [...] / Clinical Impression Clinical Impressions as of 12/13/21 Closed fracture of neck of left femur, initial encounter ([facility]) COVID-19 test performed per [facility] policy for suspected COVID community exposure. MDM [...] Center HISTORY PHYSICALon HISTORY PHYSICAL HNO ID: [id number] Author: Yasmany Roman MD Service: Orthopaedic Surgery Author Type: Physician Type: HANDP Filed: 04/22/2022 2:50 PM Note Text: ORTHOPAEDIC SURGERY HANDP Pt: CLARIBEL STOLL Date of Admission: 12/13/2021 Chief Complaint: L Hip Pain HPI: 66 year old female with dementia presented to [facility] ED on 12/13/2021 for evaluation of [...] Comment: Speci men Type: BLOOD SPECIMENOrdering Facility: [facility] Address: [address] [place] [id number] Result Comment: Suzan min K Antagonist (VKA) Therapeutic Range: INR 2 to 3 (Target INR of 2.5) Note: For patients treated with VKA drugs, such as warfarin, the [employer] 2012 Guideline recommends [...] 2.5 to 3.5 (target INR of 3). Guyatt GH, et al. Chest 2012, 141:7S-47S Harpreet RA, et al. [facility] 2017, 70: 252-289 Performed By: #### 3 4528-0 ####[facility] LABORATORYCLIA [id number] [place] [address] [place] PT Coag (PPP) [Time] 10.4 s Normal 9.7-13.0 [facility] Comment on above: Order Comment: Speci men Type: BLOOD SPECIMENOrdering Facility: [facility] Address: [address] [place] [address] Performed By: #### 3 4528-0 ####[facility] LABORATORYCLIA [id number] [address] [place] SARS-CoV-2 RNA Resp Ql JEANA+p robeon 12-13-2021 SARS-CoV-2 (COVID-19) RNA JEANA+probe Ql (Resp) COVID 19 RESULT: SARS-CoV-2 (Agent of COVID-19) Not Detected by RT-PCR or equivalent method. This test has been authorized by FDA under an Emergency Use Authorization (EUA). Normal [facility] Comment on above: Performed By: #### 9 4500-6 ####[facility] LABORATORYCLIA [id number] [address] [place] TYPE + SCREENon 12-13-2021 ABO AB Normal [facility] Comment on above: Order Comment: Speci men Type: BLOOD SPECIMEN Ordering Facility: [facility] Address: [address] [place] [address] Performed By: #### T SCR #### [facility] BLOOD BANK CLIA [id number] [address] HISTORICAL AB SCR STATUS Negative Normal [facility] Comment on above: Order Comment: Speci men Type: BLOOD SPECIMEN Ordering Facility: [facility] Address: [address] [place] [address] Performed By: #### T SCR #### [facility] BLOOD BANK CLIA [id number] [address] Rh Nom (Bld) Positive Normal [facility] Comment on above: Order Comment: Speci men Type: BLOOD SPECIMEN Ordering Facility: [facility] Address: [address] [place] [address] Performed By: #### T SCR #### [facility] BLOOD BANK CLIA [id number] 1 [place] [id number] [facility] TYPE AND SCREEN EXPIRATION 12/16/2021 23:59 Normal [facility] Comment on above: Order Comment: Speci men Type: BLOOD SPECIMEN Ordering Facility: [facility] Address: [address] [place] [address] Performed By: #### T SCR #### [facility] BLOOD BANK CLIA [id number] [address] XR CHEST 2V FRONTAL/LATon XR CHEST 2V FRONTAL/LAT * * *Final Repor t* * * DATE OF EXAM: Dec 13 2021 8:05PM [facility] [id number] - XR CHEST 2V FRONTAL/LAT / PROCEDURE REASON: Chest pain, nonspecific * * * * Physician Interpretation * * * * LEFT HIP X-RAY SERIES CLINICAL HISTORY: Fracture, hip (accession [id number]), Chest pain, nonspecific (accession [id number]) TECHNIQUE: AP pelvis, left hip true AP and frog-leg lateral view COMPARISON: 09/04/2015 RESULT: Cortical discontinuity at the lateral aspect of the left femoral head neck junction. There is also a faint band of sclerosis projecting over the subcapital segment. Findings suspicious for an impacted fracture. No significant narrowing of the bilateral hip joint spaces. CHEST X-RAY CLINICAL HISTORY: Fracture, hip (accession [id number]), Chest pain, nonspecific (accession [id number]) TECHNIQUE: Upright frontal and lateral views. COMPARISON: 09/04/2015 RESULT: Heart/mediastinum: Within normal limits. Lungs/pleura: Clear. No pleural fluid or pneumothorax. Bones/soft tissues: Left proximal humerus chronic fracture deformity. Lines/tubes/devices: None visualized. IMPRESSION: Pelvis and left hip: Suspect femoral neck subcapital fracture with impaction. Recommend CT scanning for confirmation. CHEST: No active disease. Survey Statistician: AYUSH Transcribe Date/Time: Dec 13 2021 8:19P [...] X-RAY SERIES CLINICAL HISTORY: Fracture, hip (accession [id number]), Chest pain, nonspecific (accession [id number]) TECHNIQUE: AP pelvis, left hip true AP and frog-leg lateral view COMPARISON: 09/04/2015 RESULT: Cortical discontinuity at the lateral aspect of the left femoral head neck junction. There is also a faint band of sclerosis projecting over the subcapital segment. Findings suspicious for an impacted fracture. No significant narrowing of the bilateral hip joint spaces. CHEST X-RAY CLINICAL HISTORY: Fracture, hip (accession [id number]), Chest pain, nonspecific (accession [id number]) TECHNIQUE: Upright frontal and lateral views. COMPARISON: 09/04/2015 RESULT: Heart/mediastinum: Within normal limits. Lungs/pleura: Clear. No pleural fluid or pneumothorax. Bones/soft tissues: Left proximal humerus chronic fracture deformity. Lines/tubes/devices: None visualized. IMPRESSION: Pelvis and left hip: Suspect femoral neck subcapital fracture with impaction. Recommend CT scanning for confirmation. CHEST: No active disease. Survey Statistician: AYUSH Transcribe Date/Time: Dec 13 2021 8:19P Dictated by : SAVANNA SILVERMAN MD This examination was interpreted and the report reviewed and electronically signed by: SAVANNA SILVERMAN MD on Dec 13 2021 8:24PM EST [id number] Normal [facility] No Panel Informationon 08-06 Urine Microalbumin/Creatinine Ratio [facility] Work Phone: Comment on above: Test not performed Thin prep Papanicolaou smear with manual screeningon 08-06-2021 Thin prep Papanicolaou smear with manual screening < 5.0 mg/L NO RANGE EST. [facility] Work Phone: Urine creatinine measurement (mass/volume)on 08-06-2021 Creatinine (U) [Mass/Vol] 27.50 mg/dL NO RANGE EST. [facility] Work Phone: Basophil percentageon 2021 Bilirubin [Mass/Vol] 0.40 mg/dL 0.20-1.00 [facility] Work Phone: Comment on above: For patients on eltr ombopag therapy, use of Dimension [place] TBIL is not recommended. Chloride [Moles/Vol] 108 mmol/L 98-107 [facility] Work Phone: Cholesterol [Mass/Vol] 123 mg/dL <200 [facility] Work Phone: [phone] Comment on above: <200 mg/dL Desirable 200-240 mg/dL Borderline >240 mg/dL High Risk Glucose [Mass/Vol] 94 mg/dL 74-106 [facility] Work Phone: Potassium [Moles/Vol] 4.2 mmol/L 3.5-5.[address] [facility] Work Phone: [phone] Protein [Mass/Vol] 7.0 g/dL 6.4-8.2 [facility] Work Phone: [phone] Sodium [Moles/Vol] 140 mmol/L 136-145 [facility] Work Phone: [phone] Triglyceride [Mass/Vol] 49 mg/dL <199 [facility] Work Phone: [phone] Comment on above: The drugs N-Acetylcy steine and Metamizole may falsely depress this assay.Serum Triglycerides Reference Interval Normal <150 mg/dL Borderline high 150 - 199 mg/dL High 200 - 499 mg/dL Very High > or = 500 mg/dL WBC (Bld) [#/Vol] 8.4 10*3/uL 4.4-11.0 [facility] Work Phone: Blood erythrocytes count (nu mber/volume)on 07-04-2021 RBC (Bld) [#/Vol] 3.88 10*6/uL 4.2-5.4 [facility] Work Phone: [phone] Blood hemoglobin measurement (mass/volume)on 07-04-2021 Hemoglobin (Bld) [Mass/Vol] 11.6 g/dL 12.0-15.0 [facility] Work Phone: [phone] Blood platelet mean volumeon 07-04-2021 Platelet mean volume (Bld) [Entitic vol] 10.4 fL 6.2-12.0 [facility] Work Phone: [phone] Determination of erythrocyte mean corpuscular volume (MCV)on 07-04-2021 MCV (RBC) [Entitic vol] 94.3 fL 81-99 [facility] Work Phone: [phone] Hematocrit Auto (Bld) [Volum e fraction]on 07-04-2021 Hematocrit (Bld) [Volume fraction] 36.6 % 37-47 [facility] Work Phone: Laboratory - Chemistry and C hemistry - challengeon 07-04-2021 ALP [Catalytic activity/Vol] 86 U/L 45-117 [facility] Work Phone: ALT [Catalytic activity/Vol] 17 U/L 13-56 [facility] Work Phone: [phone] CO2 [Moles/Vol] 28.0 mmol/L 21.0-32.0 [facility] Work Phone: [phone] Globulin (S) [Mass/Vol] 3.9 g/dL 2.2-4.2 [facility] Work Phone: [phone] Magnesium [Mass/Vol] 2.3 mg/dL 1.6-2.6 [facility] Work Phone: [phone] Urea nitrogen/Creatinine [Mass ratio] 15.6 mg/mg 10-20 [facility] Work Phone: [phone] Laboratory - Hematology and Cell countson 07-04-2021 Erythrocyte distribution width (RBC) [Entitic vol] 44.7 fL 35.1-43.9 [facility] Work Phone: Erythrocyte distribution width (RBC) [Ratio] 12.9 % 11.6-14.6 [facility] Work Phone: [phone] MCH (RBC) [Entitic mass] 29.9 pg 27.0-32.0 [facility] Work Phone: [phone] MCHC Auto (RBC) [Mass/Vol]on 07-04-2021 MCHC (RBC) [Mass/Vol] 31.7 g/dL 32-[address] [facility] Work Phone: No Panel Informationon 07-04 Estimated GFR (MDRD) Amer 88 mL/min >60 [facility] Work Phone: Comment on above: GFR Calc Estimated GFR (MDRD) Non-Af Amer 73 mL/min >60 [facility] Work Phone: Comment on above: Non- GFR Calc Thyroid Stimulating Hormone (TSH) 1.99 uIU/mL 0.358-3.74 [facility] Work Phone: Vitamin D 25-Hydroxy 24.4 ng/mL [facility] Work Phone: Comment on above: Vitamin D 25(OH) Sta tus Range Deficiency <20 ng/mL (50nmol/L) Insufficiency 20 - 30 ng/mL (50 - 75 nmol/L) Sufficiency 30 - 100 ng/mL (75 - 250 nmol/L) Toxicity >100 ng/mL (>250 nmol/L) Platelets bldon 07-04-2021 Platelets (Bld) [#/Vol] 330 10*3/uL 150-450 [facility] Work Phone: [phone] Serum or plasma albumin raul urement (mass/volume)on 07-04-2021 Albumin [Mass/Vol] 3.1 g/dL 3.2-5.0 [facility] Work Phone: [phone] Serum or plasma albumin/glob ulin mass ratioon 07-04-2021 Albumin/Globulin [Mass ratio] 0.8 {ratio} 0.9-2.4 [facility] Work Phone: Serum or plasma calcium raul urement (mass/volume)on 07-04-2021 Calcium [Mass/Vol] 8.8 mg/dL 8.5-10.1 [facility] Work Phone: Serum or plasma cholesterol in HDL measurement (mass/volume)on 07-04-2021 Cholesterol in HDL [Mass/Vol] 63 mg/dL >40 [facility] Work Phone: Comment on above: The drugs N-Acetylcy steine and Metamizole may falsely depress this assay. Reference Range HDL <40 mg/dL Low HDL Cholesterol HDL >or= 60 mg/dL High HDL Cholesterol Serum or plasma cholesterol in VLDL measurement (mass/volume)on 07-04-2021 Cholesterol in VLDL [Mass/Vol] 10 mg/dL 5-40 [facility] Work Phone: [phone] Serum or plasma creatinine m easurement (mass/volume)on 07-04-2021 Creatinine [Mass/Vol] 0.83 mg/dL 0.55-1.[address] [facility] Work Phone: Comment on above: The validity of the calculated GFR & GFRAA in patients over 70 years has not been determined. Clinical correlation is essential. Serum or plasma low density lipoprotein (LDL) cholesterol measurement (mass/volume)on 07-04-2021 Cholesterol in LDL [Mass/Vol] 50 mg/dL 0-130 [facility] Work Phone: [phone] Serum or plasma urea nitroge n measurement (mass/volume)on 07-04-2021 Urea nitrogen [Mass/Vol] 13 mg/dL 7-18 [facility] Work Phone: [phone] Thin prep Papanicolaou smear with manual screeningon 07-04-2021 Thin prep Papanicolaou smear with manual screening 16 U/L 15-37 [facility] Work Phone: [phone] Thin prep Papanicolaou smear with manual screening 4 5-15 [facility] Work Phone: [phone] Whole blood hemoglobin A1c/t otal hemoglobin ratio (mass fraction)on 07-04-2021 HbA1c (Bld) [Mass fraction] 5.3 % 3.8-5.6 [facility] Work Phone: Comment on above: Normal < 5.7 % Predi abetic 5.7 - 6.4 % Diabetic >or= 6.5 % Please note range changes. Basophil percentageon 2021 Cholesterol [Mass/Vol] 110 mg/dL <[address] [facility] Work Phone: Comment on above: <200 mg/dL Desirable 200-240 mg/dL Borderline >240 mg/dL High Risk Triglyceride [Mass/Vol] 59 mg/dL <199 [facility] Work Phone: Comment on above: The drugs N-Acetylcy steine and Metamizole may falsely depress this assay.Serum Triglycerides Reference Interval Normal <150 mg/dL Borderline high 150 - 199 mg/dL High 200 - 499 mg/dL Very High > or = 500 mg/dL Serum or plasma cholesterol in HDL measurement (mass/volume)on 05-31-2021 Cholesterol in HDL [Mass/Vol] 59 mg/dL >40 [facility] Work Phone: Comment on above: The drugs N-Acetylcy steine and Metamizole may falsely depress this assay. Reference Range HDL <40 mg/dL Low HDL Cholesterol HDL >or= 60 mg/dL High HDL Cholesterol Serum or plasma cholesterol in VLDL measurement (mass/volume)on 05-31-2021 Cholesterol in VLDL [Mass/Vol] 12 mg/dL 5-40 [facility] Work Phone: Serum or plasma low density lipoprotein (LDL) cholesterol measurement (mass/volume)on 05-31-2021 Cholesterol in LDL [Mass/Vol] 39 mg/dL 0-130 [facility] Work Phone: Basophil percentageon 2021 Ammonia (P) [Moles/Vol] 42.0 umol/L 11-32 [facility] Work Phone: Bilirubin [Mass/Vol] 0.40 mg/dL 0.20-1.00 [facility] Work Phone: Comment on above: For patients on eltr ombopag therapy, use of Dimension [place] TBIL is not recommended. Chloride [Moles/Vol] 107 mmol/L 98-107 [facility] Work Phone: [phone] Glucose [Mass/Vol] 92 mg/dL 74-106 [facility] Work Phone: [phone] Potassium [Moles/Vol] 4.2 mmol/L 3.5-5.1 [facility] Work Phone: [phone] Protein [Mass/Vol] 6.9 g/dL 6.4-8.2 [facility] Work Phone: [phone] Sodium [Moles/Vol] 139 mmol/L 136-145 [facility] Work Phone: [phone] WBC (Bld) [#/Vol] 9.5 10*3/uL 4.4-11.0 [facility] Work Phone: [phone] Bilirubin Test strip Ql (U)o n 04-23-2021 Bilirubin Ql (U) Negative Negative [facility] Work Phone: [phone] Blood erythrocytes count (nu mber/volume)on 04-23-2021 RBC (Bld) [#/Vol] 3.82 10*6/uL 4.2-5.4 [facility] Work Phone: [phone] Blood hemoglobin measurement (mass/volume)on 04-23-2021 Hemoglobin (Bld) [Mass/Vol] 11.5 g/dL 12.0-15.0 [facility] Work Phone: [phone] Blood platelet mean volumeon 04-23-2021 Platelet mean volume (Bld) [Entitic vol] 10.0 fL 6.2-12.0 [facility] Work Phone: [phone] Culture, urineon 04-23-2021 Bacteria identified Cx Nom (U) GNR lactose cider maker [facility] Work Phone: [phone] Bacteria identified Cx Nom (U) Negative [facility] Work Phone: [phone] Determination of erythrocyte mean corpuscular volume (MCV)on 04-23-2021 MCV (RBC) [Entitic vol] 92.4 fL 81-99 [facility] Work Phone: Direct bilirubinon Bilirubin.direct [Mass/Vol] 0.12 mg/dL 0.00-0.30 [facility] Work Phone: [phone] Hematocrit Auto (Bld) [Volum e fraction]on 04-23-2021 Hematocrit (Bld) [Volume fraction] 35.3 % 37-47 [facility] Work Phone: [phone] Ketones Test strip Ql (U)on 04-23-2021 Ketones Ql (U) Negative Negative [facility] Work Phone: [phone] Laboratory - Chemistry and C hemistry - challengeon 04-23-2021 ALP [Catalytic activity/Vol] 90 U/L 45-117 [facility] Work Phone: [phone] ALT [Catalytic activity/Vol] 12 U/L 13-56 [facility] Work Phone: [phone] CO2 [Moles/Vol] 26.0 mmol/L 21.0-32.0 [facility] Work Phone: [phone] Globulin (S) [Mass/Vol] 3.9 g/dL 2.2-4.2 [facility] Work Phone: [phone] Urea nitrogen/Creatinine [Mass ratio] 16.8 mg/mg 10-20 [facility] Work Phone: [phone] Laboratory - Hematology and Cell countson 04-23-2021 Erythrocyte distribution width (RBC) [Entitic vol] 43.8 fL 35.1-43.9 [facility] Work Phone: [phone] Erythrocyte distribution width (RBC) [Ratio] 13.0 % 11.6-14.6 [facility] Work Phone: [phone] MCH (RBC) [Entitic mass] 30.1 pg 27.0-32.0 [facility] Work Phone: [phone] MCHC Auto (RBC) [Mass/Vol]on 04-23-2021 MCHC (RBC) [Mass/Vol] 32.6 g/dL 32-[address] [facility] Work Phone: Nitrite Test strip Ql (U)on 04-23-2021 Nitrite Ql (U) Negative Negative [facility] Work Phone: No Panel Informationon 04-23 Estimated GFR (MDRD) Amer 96 mL/min >60 [facility] Work Phone: Comment on above: GFR Calc Estimated GFR (MDRD) Non-Af Amer 79 mL/min >60 [facility] Work Phone: Comment on above: Non- GFR Calc Platelets bldon 04-23-2021 Platelets (Bld) [#/Vol] 309 10*3/uL 150-450 [facility] Work Phone: Protein Test strip Ql (U)on 04-23-2021 Protein Ql (U) Negative Negative [facility] Work Phone: Serum or plasma albumin raul urement (mass/volume)on 04-23-2021 Albumin [Mass/Vol] 3.0 g/dL 3.2-5.0 [facility] Work Phone: Serum or plasma calcium raul urement (mass/volume)on 04-23-2021 Calcium [Mass/Vol] 8.4 mg/dL 8.5-10.1 [facility] Work Phone: Serum or plasma creatinine m easurement (mass/volume)on 04-23-2021 Creatinine [Mass/Vol] 0.77 mg/dL 0.55-1.[address] [facility] Work Phone: Comment on above: The validity of the calculated GFR & GFRAA in patients over 70 years has not been determined. Clinical correlation is essential. Serum or plasma urea nitroge n measurement (mass/volume)on 04-23-2021 Urea nitrogen [Mass/Vol] 13 mg/dL 7-18 [facility] Work Phone: Thin prep Papanicolaou smear with manual screeningon 04-23-2021 Thin prep Papanicolaou smear with manual screening 12 U/L 15-37 [facility] Work Phone: Thin prep Papanicolaou smear with manual screening 6 5-15 [facility] Work Phone: Urine blood detectionon 03-0 RBC Ql (U) Negative Negative [facility] Work Phone: Urine clarityon 04-23-2021 Clarity (U) Sl. Cloudy Clear [facility] Work Phone: Urine color determinationon 04-23-2021 Color (U) Yellow Yellow [facility] Work Phone: Urine glucose detectionon Glucose Ql (U) Normal mg/dl Normal [facility] Work Phone: Urine leukocyte esterase det ection by dipstickon 04-23-2021 Leukocyte esterase Test strip Ql (U) Negative Negative [facility] Work Phone: Urine pHon 04-23-2021 pH (U) 7.0 [pH] 5.0 - 8.0 [facility] Work Phone: Urine specific gravity measu rementon 04-23-2021 Specific gravity (U) [Rel density] 1.010 1.002-1.030 [facility] Work Phone: Urobilinogen Auto test strip Ql (U)on 04-23-2021 Urobilinogen Ql (U) Normal mg/dl Normal [facility] Work Phone: RPRon 05-20-2018 [facility] RPR Ql (S) Non-reactive Normal Nonreactive A [facility] Comment on above: Performed By: #### P 14 #### [facility] [address] [place] [address] Free Thyroxineon 05-18-2018 T4 free mass conc 1.02 ng/dL Normal 0.76-1.46 [facility] Comment on above: Performed By: #### P 14 #### [facility] [address] [place], [place] [address] Potassium Bloodon 05-18-2018 Potassium molar conc 3.5 mmol/L Normal 3.5-5.1 [facility] Comment on above: Performed By: #### P 14 #### [facility] [address] [place] [address] Hemogram/Diffon 05-17-2018 Abs Immature Grans 0.02 thou/cmm Normal 0.00-0.05 [facility] Comment on above: Performed By: #### P 14 #### [facility] [address] [place] [address] Abs. Baso 0.08 thou/cmm Normal 0.01-0.08 [facility] Comment on above: Performed By: #### P 14 #### [facility] [address] [place] [address] Abs. Bowman 0.81 thou/cmm High 0.27-0.70 [facility] Comment on above: Performed By: #### P 14 #### [facility] [address] [place] [address] Abs. Neut (ANC) 2.38 thou/cmm Normal 1.56-6.13 [facility] Comment on above: Performed By: #### P 14 #### [facility] [address] [place] [address] Basophils/100 WBC (Bld) 1.2 % Normal [facility] Comment on above: Performed By: #### P 14 #### [facility] [address] [place] [address] Eosinophils #/vol (Bld) 0.16 thou/cmm Normal 0.00-0.31 [facility] Comment on above: Performed By: #### P 14 #### [facility] [address] [place] [address] Eosinophils/100 WBC (Bld) 2.5 % Normal [facility] Comment on above: Performed By: #### P 14 #### [facility] [address] [place] [address] Erythrocyte distribution width Ratio (RBC) 14.2 % Normal 11.7-14.4 [facility] Comment on above: Performed By: #### P 14 #### [facility] [address] [place] [address] Hematocrit Volume Fraction (Bld) 26.9 % Low 34.1-44.9 [facility] Comment on above: Performed By: #### P 14 #### [facility] [address] [place] [address] Hemoglobin mass conc (Bld) 9.0 g/dL Low 11.2-15.7 [facility] Comment on above: Performed By: #### P 14 #### [facility] [address] [place] [address] Immature Grans 0.30 % Normal [facility] Comment on above: Performed By: #### P 14 #### [facility] [address] [place] [address] Lymphocytes #/vol (Bld) 2.96 thou/cmm Normal 1.18-3.74 [facility] Comment on above: Performed By: #### P 14 #### [facility] [address] [place] [address] Lymphocytes/100 WBC (Bld) 46.2 % Normal [facility] Comment on above: Performed By: #### P 14 #### [facility] [address] [place] [address] MCH Entitic mass (RBC) 36.0 pg High 25.6-32.2 [facility] Comment on above: Performed By: #### P 14 #### [facility] [address] [place] [address] MCHC mass conc (RBC) 33.5 % Normal 31.6-34.8 [facility] Comment on above: Performed By: #### P 14 #### [facility] [address] [place] [address] MCV Entitic volume (RBC) 107.6 fL High 79.4-94.8 [facility] Comment on above: Performed By: #### P 14 #### [facility] [address] [place] [address] Monocytes/100 WBC (Bld) 12.6 % Normal [facility] Comment on above: Performed By: #### P 14 #### [facility] [address] [place] [address] Platelet mean volume Entitic volume (Bld) 8.6 fL Low 9.4-12.3 [facility] Comment on above: Performed By: #### P 14 #### [facility] [address] [place] [address] Platelets #/vol (Bld) 298 thou/cmm Normal 182-369 A [facility] Comment on above: Performed By: #### P 14 #### [facility] [address] [place] [address] RBC #/vol (Bld) 2.50 mil/cmm Low 3.93-5.22 [facility] Comment on above: Performed By: #### P 14 #### [place] [address] RDW SD 55.8 fl High 36.4-46.3 [facility] Comment on above: Performed By: #### P 14 #### [place] [address] Seg Neutrophil 37.2 % Normal [facility] Comment on above: Performed By: #### P 14 #### [facility] [address] [place] [address] WBC #/vol (Bld) 6.41 thou/cmm Normal 3.98-10.04 [facility] Comment on above: Performed By: #### P 14 #### [place] [address] MDRD GFRon 05-17-2018 GFR/1.73 sq M predicted among non-blacks MDRD vol rate/area (S/P/Bld) mL/min/{1.73_m2} Normal >60mL/min/1.7 3m2 [facility] Comment on above: Result Comment: If t he patient is , multiply the result by 1.210. Performed By: #### G FR #### [place] [address] Renal Panelon 05-17-2018 Creatinine mass conc 0.50 mg/dL Low 0.51-0.95 [facility] Comment on above: Performed By: #### P 14 #### [facility] [address] [place], [place] [address] Phosphate mass conc 2.7 mg/dL Normal 2.5-4.9 [facility] Comment on above: Performed By: #### P 14 #### [facility] [address] [place], [place] [address] Albumin mass conc 1.2 g/dL Low 3.4-5.0 [facility] Comment on above: Performed By: #### P 14 #### [facility] [address] [place], [place] [address] CO2 molar conc 24 mmol/L Normal 21-32 [facility] Comment on above: Performed By: #### P 14 #### [facility] [address] [place], [place] [address] Glucose mass conc 73 mg/dL Normal 70-99 [facility] Comment on above: Performed By: #### P 14 #### [facility] [address] [place], [place] [address] Calcium mass conc 7.5 mg/dL Low 8.5-10.1 [facility] Comment on above: Performed By: #### P 14 #### [facility] [address] [place], [place] [address] Urea nitrogen mass conc 2 mg/dL Low 7-18 [facility] Comment on above: Performed By: #### P 14 #### [facility] [address] [place], [place] [address] Chloride molar conc 107 mmol/L Normal 98-107 [facility] Comment on above: Performed By: #### P 14 #### [facility] [address] [place], [place] [address] Potassium molar conc 3.2 mmol/L Low 3.5-5.1 [facility] Comment on above: Performed By: #### P 14 #### [facility] [address] [place], [place] [address] Sodium molar conc 137 mmol/L Normal 136-145 [facility] Comment on above: Performed By: #### P 14 #### [facility] [address] [place], [place] [address] TSH, 3rd generationon 2018 TSH, 3rd generation 9.710 uIU/mL High 0.358-3.740 [facility] Comment on above: Performed By: #### P 14 #### [facility] [address] [place] [address] Basic Panelon 05-15-2018 Creatinine mass conc 0.56 mg/dL Normal 0.51-0.95 [facility] Comment on above: Performed By: #### P 14 #### [facility] [address] [place] [address] Anion gap molar conc 13 mmol/L Normal 8-16 [facility] Comment on above: Performed By: #### P 14 #### [facility] [address] [place] [address] Calcium mass conc 7.5 mg/dL Low 8.5-10.1 [facility] Comment on above: Performed By: #### P 14 #### [facility] [address] [place] [address] CO2 molar conc 19 mmol/L Low 21-32 [facility] Comment on above: Performed By: #### P 14 #### [facility] [address] [place] [address] Glucose mass conc 56 mg/dL Low 70-99 [facility] Comment on above: Performed By: #### P 14 #### [facility] [address] [place] [address] Urea nitrogen mass conc 3 mg/dL Low 7-18 [facility] Comment on above: Performed By: #### P 14 #### [facility] [address] [place] [address] Chloride molar conc 110 mmol/L High 98-107 [facility] Comment on above: Performed By: #### P 14 #### [facility] [address] [place] [address] Potassium molar conc 3.8 mmol/L Normal 3.5-5.1 [facility] Comment on above: Performed By: #### P 14 #### [facility] [address] [place] [address] Sodium molar conc 138 mmol/L Normal 136-145 [facility] Comment on above: Performed By: #### P 14 #### [facility] [address] [place], [place] [address] Basic Panelon 05-14-2018 Creatinine mass conc 0.65 mg/dL Normal 0.51-0.95 [facility] Comment on above: Performed By: #### P 14 #### [facility] [address] [place], [place] [address] Anion gap molar conc 10 mmol/L Normal 8-16 [facility] Comment on above: Performed By: #### P 14 #### [facility] [address] [place], [place] [address] CO2 molar conc 21 mmol/L Normal 21-32 [facility] Comment on above: Performed By: #### P 14 #### [facility] [address] [place] [address] Glucose mass conc 59 mg/dL Low 70-99 [facility] Comment on above: Performed By: #### P 14 #### [facility] [address] [place], [place] [address] Urea nitrogen mass conc 3 mg/dL Low 7-18 [facility] Comment on above: Performed By: #### P 14 #### [facility] [address] [place] [address] Calcium mass conc 7.7 mg/dL Low 8.5-10.1 [facility] Comment on above: Performed By: #### P 14 #### [facility] [address] [place], [place] [address] Chloride molar conc 111 mmol/L High 98-107 [facility] Comment on above: Performed By: #### P 14 #### [facility] [address] [place], [place] [address] Potassium molar conc 3.1 mmol/L Low 3.5-5.1 [facility] Comment on above: Performed By: #### P 14 #### [facility] [address] [place] [address] Sodium molar conc 139 mmol/L Normal 136-145 [facility] Comment on above: Performed By: #### P 14 #### [facility] [address] [place] [address] Basic Panelon 05-13-2018 Creatinine mass conc 0.71 mg/dL Normal 0.51-0.95 [facility] Comment on above: Performed By: #### P 14 #### [facility] [address] [place] [address] Anion gap molar conc 11 mmol/L Normal 8-16 [facility] Comment on above: Performed By: #### P 14 #### [facility] [address] [place] [address] Calcium mass conc 7.6 mg/dL Low 8.5-10.1 [facility] Comment on above: Performed By: #### P 14 #### [facility] [address] [place] [address] CO2 molar conc 20 mmol/L Low 21-32 [facility] Comment on above: Performed By: #### P 14 #### [facility] [address] [place] [address] Glucose mass conc 81 mg/dL Normal 70-99 [facility] Comment on above: Performed By: #### P 14 #### [facility] [address] [place] [address] Urea nitrogen mass conc 3 mg/dL Low 7-18 [facility] Comment on above: Performed By: #### P 14 #### [facility] [address] [place] [address] Chloride molar conc 109 mmol/L High 98-107 [facility] Comment on above: Performed By: #### P 14 #### [facility] [address] [place] [address] Potassium molar conc 3.4 mmol/L Low 3.5-5.1 [facility] Comment on above: Performed By: #### P 14 #### [facility] [address] [place] [address] Sodium molar conc 137 mmol/L Normal 136-145 [facility] Comment on above: Performed By: #### P 14 #### [facility] [address] [place] [address] Hemogramon 05-13-2018 Erythrocyte distribution width Ratio (RBC) 13.8 % Normal 11.7-14.4 [facility] Comment on above: Performed By: #### C BCD1 #### [facility] [address] [place] [address] Hematocrit Volume Fraction (Bld) 28.9 % Low 34.1-44.9 [facility] Comment on above: Performed By: #### C BCD1 #### [facility] [address] [place] [address] Hemoglobin mass conc (Bld) 9.5 g/dL Low 11.2-15.7 [facility] Comment on above: Performed By: #### C BCD1 #### [facility] [address] [place] [address] MCH Entitic mass (RBC) 36.5 pg High 25.6-32.2 [facility] Comment on above: Performed By: #### C BCD1 #### [facility] [address] [place] [address] MCHC mass conc (RBC) 32.9 % Normal 31.6-34.8 [facility] Comment on above: Performed By: #### C BCD1 #### [facility] [address] [place] [address] MCV Entitic volume (RBC) 111.2 fL High 79.4-94.8 [facility] Comment on above: Performed By: #### C BCD1 #### [facility] [address] [place] [address] Platelet mean volume Entitic volume (Bld) 8.3 fL Low 9.4-12.3 [facility] Comment on above: Performed By: #### C BCD1 #### [facility] [address] [place] [address] Platelets #/vol (Bld) 308 thou/cmm Normal 182-369 [facility] Comment on above: Performed By: #### C BCD1 #### [facility] [address] [place] [address] RBC #/vol (Bld) 2.60 mil/cmm Low 3.93-5.22 [facility] Comment on above: Performed By: #### C BCD1 #### [facility] [address] [place], [place] [address] RDW SD 57.0 fl High 36.4-46.3 [facility] Comment on above: Performed By: #### C BCD1 #### [facility] [address] [place], [place] [address] WBC #/vol (Bld) 7.55 thou/cmm Normal 3.98-10.04 [facility] Comment on above: Performed By: #### C BCD1 #### [facility] [address] [place], [place] [address] Hepatic Panelon 05-13-2018 ALP enzyme act/vol 171 U/L High 46-116 [facility] Comment on above: Performed By: #### C BCD1 #### [facility] [address] [place] [address] Protein mass conc 5.3 g/dL Low 6.4-8.2 [facility] Comment on above: Performed By: #### C BCD1 #### [facility] [address] [place], [place] [address] Bilirubin mass conc 0.7 mg/dL Normal 0.2-1.0 [facility] Comment on above: Performed By: #### C BCD1 #### [facility] [address] [place], [place] [address] ALT enzyme act/vol 22 U/L Normal 12-78 [facility] Comment on above: Performed By: #### C BCD1 #### [facility] [address] [place], [place] [address] AST enzyme act/vol 44 U/L High 9-37 [facility] Comment on above: Performed By: #### C BCD1 #### [facility] [address] [place], [place] [address] Bilirubin mass conc 0.45 mg/dL High 0.00-0.20 [facility] Comment on above: Performed By: #### C BCD1 #### [facility] [address] [place], [place] [address] Albumin mass conc 1.3 g/dL Low 3.4-5.0 [facility] Comment on above: Performed By: #### C BCD1 #### [facility] [address] [place] [address] Basic Panelon 05-12-2018 Creatinine mass conc 0.68 mg/dL Normal 0.51-0.95 [facility] Comment on above: Performed By: #### C BCD1 #### [facility] [address] [place] [address] Anion gap molar conc 13 mmol/L Normal 8-16 [facility] Comment on above: Performed By: #### C BCD1 #### [facility] [address] [place] [address] CO2 molar conc 20 mmol/L Low 21-32 [facility] Comment on above: Performed By: #### C BCD1 #### [facility] [address] [place] [address] Glucose mass conc 94 mg/dL Normal 70-99 [facility] Comment on above: Performed By: #### C BCD1 #### [facility] [address] [place] [address] Urea nitrogen mass conc 4 mg/dL Low 7-18 [facility] Comment on above: Performed By: #### C BCD1 #### [facility] [address] [place] [address] Calcium mass conc 7.5 mg/dL Low 8.5-10.1 [facility] Comment on above: Performed By: #### C BCD1 #### [facility] [address] [place] [address] Chloride molar conc 104 mmol/L Normal 98-107 [facility] Comment on above: Performed By: #### C BCD1 #### [facility] [address] [place] [address] Potassium molar conc 2.8 mmol/L Low 3.5-5.1 [facility] Comment on above: Performed By: #### C BCD1 #### [facility] [address] [place] [address] Sodium molar conc 134 mmol/L Low 136-145 [facility] Comment on above: Performed By: #### C BCD1 #### [facility] [address] [place] [address] CRPon 05-12-2018 CRP mass conc 6.85 mg/dL High 0.00-0.30 [facility] Comment on above: Performed By: #### C BCD1 #### [facility] [address] [place] [address] Folateon 05-12-2018 Folate 6.80 ng/mL Normal 3.10-17.50 [facility] Comment on above: Performed By: #### C BCD1 #### [facility] [address] [place] [address] Hemogramon 05-12-2018 Erythrocyte distribution width Ratio (RBC) 13.6 % Normal 11.7-14.4 [facility] Comment on above: Performed By: #### C BCD1 #### [facility] [address] [place] [address] Hematocrit Volume Fraction (Bld) 28.6 % Low 34.1-44.9 [facility] Comment on above: Performed By: #### C BCD1 #### [facility] [address] [place] [address] Hemoglobin mass conc (Bld) 9.5 g/dL Low 11.2-15.7 [facility] Comment on above: Performed By: #### C BCD1 #### [facility] [address] [place] [address] MCH Entitic mass (RBC) 36.1 pg High 25.6-32.2 [facility] Comment on above: Performed By: #### C BCD1 #### [facility] [address] [place] [address] MCHC mass conc (RBC) 33.2 % Normal 31.6-34.8 [facility] Comment on above: Performed By: #### C BCD1 #### [facility] [address] [place] [address] MCV Entitic volume (RBC) 108.7 fL High 79.4-94.8 [facility] Comment on above: Performed By: #### C BCD1 #### [facility] [address] [place] [address] Platelet mean volume Entitic volume (Bld) 8.3 fL Low 9.4-12.3 [facility] Comment on above: Performed By: #### C BCD1 #### [facility] [address] [place] [address] Platelets #/vol (Bld) 310 thou/cmm Normal 182-369 [facility] Comment on above: Performed By: #### C BCD1 #### [facility] [address] [place] [address] RBC #/vol (Bld) 2.63 mil/cmm Low 3.93-5.22 [facility] Comment on above: Performed By: #### C BCD1 #### [facility] [address] [place] [address] RDW SD 54.0 fl High 36.4-46.3 [facility] Comment on above: Performed By: #### C BCD1 #### [place] [address] WBC #/vol (Bld) 10.75 thou/cmm High 3.98-10.04 [facility] Comment on above: Performed By: #### C BCD1 #### [place] [address] Sed Rateon 05-12-2018 Sed Rate 36 mm/hr High 0-20 [facility] Comment on above: Performed By: #### C BCD1 #### [place] [address] Vancomycin,Randomon 05-13-19 19 INR Coag RelTime (Bld) 20.8 mg/L Normal [facility] Comment on above: Result Comment: Trou gh 10.0-20.0 mg/L Peak 18.0-40.0 mg/L Performed By: #### C BCD1 #### [place] [address] Vitamin B12on 05-12-2018 Cobalamin (Vitamin B12) mass conc 1456 pg/mL High 193-986 [facility] Comment on above: Performed By: #### C BCD1 #### [place] [address] Basic Panelon 05-11-2018 Creatinine mass conc 0.36 mg/dL Low 0.51-0.95 [facility] Comment on above: Performed By: #### P 8 #### [facility] [address] [place], [place] [address] Anion gap molar conc 12 mmol/L Normal 8-16 [facility] Comment on above: Performed By: #### P 8 #### [facility] [address] [place], [place] [address] CO2 molar conc 23 mmol/L Normal 21-32 [facility] Comment on above: Performed By: #### P 8 #### [facility] [address] [place], [place] [address] Urea nitrogen mass conc 4 mg/dL Low 7-18 [facility] Comment on above: Performed By: #### P 8 #### [facility] [address] [place], [place] [address] Calcium mass conc 7.6 mg/dL Low 8.5-10.1 [facility] Comment on above: Performed By: #### P 8 #### [facility] [address] [place], [place] [address] Glucose mass conc 102 mg/dL High 70-99 [facility] Comment on above: Performed By: #### P 8 #### [facility] [address] [place], [place] [address] Chloride molar conc 102 mmol/L Normal 98-107 [facility] Comment on above: Performed By: #### P 8 #### [facility] [address] [place], [place] [address] Potassium molar conc 3.5 mmol/L Normal 3.5-5.1 [facility] Comment on above: Performed By: #### P 8 #### [facility] [address] [place], [place] [address] Sodium molar conc 133 mmol/L Low 136-145 [facility] Comment on above: Performed By: #### P 8 #### [facility] [address] [place] [address] Comprehensive Panelon 2018 ALP enzyme act/vol 345 U/L High 46-116 [facility] Comment on above: Performed By: #### P 14 #### [facility] [address] [place], [place] [address] Bilirubin mass conc 1.3 mg/dL High 0.2-1.0 [facility] Comment on above: Performed By: #### P 14 #### [facility] [address] [place], [place] [address] Protein mass conc 8.5 g/dL High 6.4-8.2 [facility] Comment on above: Performed By: #### P 14 #### [facility] [address] [place] [address] ALT enzyme act/vol 40 U/L Normal 12-78 [facility] Comment on above: Performed By: #### P 14 #### [facility] [address] [place] [address] Creatinine mass conc 0.45 mg/dL Low 0.51-0.95 [facility] Comment on above: Performed By: #### P 14 #### [facility] [address] [place] [address] AST enzyme act/vol 92 U/L High 9-37 [facility] Comment on above: Performed By: #### P 14 #### [facility] [address] [place] [address] Albumin mass conc 2.3 g/dL Low 3.4-5.0 [facility] Comment on above: Performed By: #### P 14 #### [facility] [address] [place] [address] Anion gap molar conc 15 mmol/L Normal 8-16 [facility] Comment on above: Performed By: #### P 14 #### [facility] [address] [place], [place] [address] CO2 molar conc 23 mmol/L Normal 21-32 [facility] Comment on above: Performed By: #### P 14 #### [facility] [address] [place] [address] Urea nitrogen mass conc 4 mg/dL Low 7-18 [facility] Comment on above: Performed By: #### P 14 #### [facility] [address] [place] [address] Calcium mass conc 8.9 mg/dL Normal 8.5-10.1 [facility] Comment on above: Performed By: #### P 14 #### [facility] [address] [place] [address] Glucose mass conc 101 mg/dL High 70-99 [facility] Comment on above: Performed By: #### P 14 #### [facility] [address] [place] [address] Chloride molar conc 93 mmol/L Low 98-107 [facility] Comment on above: Performed By: #### P 14 #### [facility] [address] [place] [address] Potassium molar conc 3.9 mmol/L Normal 3.5-5.1 [facility] Comment on above: Performed By: #### P 14 #### [facility] [address] [place] [address] Sodium molar conc 127 mmol/L Low 136-145 [facility] Comment on above: Performed By: #### P 14 #### [facility] [address] [place] [address] Cult Bloodon 05-11-2018 Cult Blood Test performed at [facility] No growth Normal [facility] Comment on above: Performed By: #### C _BLO #### [place] [address] Cult Urineon 05-11-2018 Cult Urine Test performed at [facility] ORGANISM: *Escherichia coli (ID: 1) >100,000 CFU/ml Normal [facility] Comment on above: Performed By: #### C BCD1 #### [facility] [address] [place] [address] Hemogramon 05-11-2018 Erythrocyte distribution width Ratio (RBC) 13.6 % Normal 11.7-14.4 [facility] Comment on above: Performed By: #### C BC1 #### [facility] [address] [place] [address] Hematocrit Volume Fraction (Bld) 29.0 % Low 34.1-44.9 [facility] Comment on above: Performed By: #### C BC1 #### [facility] [address] [place] [address] Hemoglobin mass conc (Bld) 9.7 g/dL Low 11.2-15.7 [facility] Comment on above: Performed By: #### C BC1 #### [facility] [address] [place] [address] MCH Entitic mass (RBC) 34.9 pg High 25.6-32.2 [facility] Comment on above: Performed By: #### C BC1 #### [facility] [address] [place] [address] MCHC mass conc (RBC) 33.4 % Normal 31.6-34.8 [facility] Comment on above: Performed By: #### C BC1 #### [facility] [address] [place] [address] MCV Entitic volume (RBC) 104.3 fL High 79.4-94.8 [facility] Comment on above: Performed By: #### C BC1 #### [facility] [address] [place] [address] Platelet mean volume Entitic volume (Bld) 8.4 fL Low 9.4-12.3 [facility] Comment on above: Performed By: #### C BC1 #### [facility] [address] [place] [address] Platelets #/vol (Bld) 362 thou/cmm Normal 182-369 [facility] Comment on above: Performed By: #### C BC1 #### [facility] [address] [place] [address] RBC #/vol (Bld) 2.78 mil/cmm Low 3.93-5.22 [facility] Comment on above: Performed By: #### C BC1 #### [facility] [address] [place] [address] RDW SD 52.4 fl High 36.4-46.3 [facility] Comment on above: Performed By: #### C BC1 #### [facility] [address] [place] [address] WBC #/vol (Bld) 11.39 thou/cmm High 3.98-10.04 [facility] Comment on above: Performed By: #### C BC1 #### [facility] [address] [place] [address] Hemogram/Diffon 05-11-2018 Abs Immature Grans 0.13 thou/cmm High 0.00-0.05 [facility] Comment on above: Performed By: #### C BCD1 #### [facility] [address] [place] [address] Abs. Baso 0.09 thou/cmm High 0.01-0.08 [facility] Comment on above: Result Comment: Smea r scanned; tech agrees with automated differential Performed By: #### C BCD1 #### [facility] [address] [place] [address] Abs. Bowman 1.38 thou/cmm High 0.27-0.70 [facility] Comment on above: Performed By: #### C BCD1 #### [facility] [address] [place] [address] Abs. Neut (ANC) 10.28 thou/cmm High 1.56-6.13 [facility] Comment on above: Performed By: #### C BCD1 #### [facility] [address] [place] [address] Basophils/100 WBC (Bld) 0.6 % Normal [facility] Comment on above: Performed By: #### C BCD1 #### [place] [address] Eosinophils #/vol (Bld) 0.01 thou/cmm Normal 0.00-0.31 [facility] Comment on above: Performed By: #### C BCD1 #### [place] [address] Eosinophils/100 WBC (Bld) 0.1 % Normal [facility] Comment on above: Performed By: #### C BCD1 #### [place] [address] Immature Grans 0.90 % Normal [facility] Comment on above: Performed By: #### C BCD1 #### [facility] [address] [place], [place] [address] Lymphocytes #/vol (Bld) 2.51 thou/cmm Normal 1.18-3.74 [facility] Comment on above: Performed By: #### C BCD1 #### [facility] [address] [place], [place] [address] Lymphocytes/100 WBC (Bld) 17.4 % Normal [facility] Comment on above: Performed By: #### C BCD1 #### [facility] [address] [place], [place] [address] Monocytes/100 WBC (Bld) 9.6 % Normal [facility] Comment on above: Performed By: #### C BCD1 #### [facility] [address] [place] [address] Seg Neutrophil 71.4 % Normal [facility] Comment on above: Performed By: #### C BCD1 #### [facility] [address] [place] [address] Erythrocyte distribution width Ratio (RBC) 13.5 % Normal 11.7-14.4 [facility] Comment on above: Performed By: #### C BCD1 #### [facility] [address] [place] [address] Hematocrit Volume Fraction (Bld) 37.7 % Normal 34.1-44.9 [facility] Comment on above: Performed By: #### C BCD1 #### [facility] [address] [place] [address] Hemoglobin mass conc (Bld) 12.9 g/dL Normal 11.2-15.7 [facility] Comment on above: Performed By: #### C BCD1 #### [facility] [address] [place] [address] MCH Entitic mass (RBC) 35.6 pg High 25.6-32.2 [facility] Comment on above: Performed By: #### C BCD1 #### [facility] [address] [place] [address] MCHC mass conc (RBC) 34.2 % Normal 31.6-34.8 [facility] Comment on above: Performed By: #### C BCD1 #### [facility] [address] [place] [address] MCV Entitic volume (RBC) 104.1 fL High 79.4-94.8 [facility] Comment on above: Performed By: #### C BCD1 #### [facility] [address] [place] [address] Platelet mean volume Entitic volume (Bld) 8.7 fL Low 9.4-12.3 [facility] Comment on above: Performed By: #### C BCD1 #### [facility] [address] [place] [address] Platelets #/vol (Bld) 427 thou/cmm High 182-369 [facility] Comment on above: Performed By: #### C BCD1 #### [facility] [address] [place] [address] RBC #/vol (Bld) 3.62 mil/cmm Low 3.93-5.22 [facility] Comment on above: Performed By: #### C BCD1 #### [facility] [address] [place] [address] RDW SD 51.8 fl High 36.4-46.3 [facility] Comment on above: Performed By: #### C BCD1 #### [facility] [address] [place] [address] WBC #/vol (Bld) 14.40 thou/cmm High 3.98-10.04 [facility] Comment on above: Performed By: #### C BCD1 #### [facility] [address] [place] [address] Lactic Acidon 05-11-2018 Lactate molar conc 2.1 mmol/L Normal 0.5-2.2 [facility] Comment on above: Performed By: #### E DLAG #### [place] [address] N-terminal Pro-BNPon 019 Natriuretic peptide B mass conc (Bld) 420 pg/mL Normal [facility] Comment on above: Result Comment: Acut e CHF Rule-in <50 yrs old >= 450 pg/ml >50 yrs old >= 900 pg/ml Abnormal Pro-BNP All patients >=300 pg/ml Performed By: #### P BNP #### [facility] [address] [place] [address] Urinalysis Routineon 019 Granular Cast 0-1 Abnormal None [facility] Comment on above: Performed By: #### U RIN2 #### [place] [address] Hyaline Cast 0.0-2 Normal 0.0-1.0 [facility] Comment on above: Performed By: #### U RIN2 #### [place] [address] Mucus Threads MODERATE Abnormal None [facility] Comment on above: Performed By: #### U RIN2 #### [place] [address] RBC LM.HPF #/area (Urine sed) 36.0-50 High 0.0-5.0 [facility] Comment on above: Performed By: #### U RIN2 #### [place] [address] Yeast Urine FEW Abnormal None [facility] Comment on above: Performed By: #### U RIN2 #### [place] [address] Bacteria LM.HPF #/area (Urine sed) 4+ Abnormal None [facility] Comment on above: Performed By: #### U RIN2 #### [place] [address] Ep Cells Urine 22.2 /hpf High 0.0-5.0 [facility] Comment on above: Performed By: #### U RIN2 #### [place] [address] WBC, Urine 327.2 /hpf High 0.0-5.0 [facility] Comment on above: Performed By: #### U RIN2 #### [place] [address] Appearance Nom (U) TURBID Normal [facility] Comment on above: Performed By: #### U RIN2 #### [facility] [address] [place] [address] Bilirubin Urine see below Abnormal Negative [facility] Comment on above: Result Comment: Anamaria cted (Unable to confirm). Performed By: #### U RIN2 #### [facility] [address] [place] [address] Color Nom (U) ORANGE Normal [facility] Comment on above: Performed By: #### U RIN2 #### [facility] [address] [place] [address] Glucose Ql (U) Negative Normal Negative [facility] Comment on above: Performed By: #### U RIN2 #### [facility] [address] [place] [address] Hemoglobin,Urine LARGE Abnormal Negative [facility] Comment on above: Performed By: #### U RIN2 #### [facility] [address] [place] [address] Ketone Urine TRACE Abnormal Negative [facility] Comment on above: Performed By: #### U RIN2 #### [facility] [address] [place] [address] Leukocytes Esterase LARGE Abnormal Negative [facility] Comment on above: Performed By: #### U RIN2 #### [facility] [address] [place] [address] Nitrites Urine Positive Abnormal Negative [facility] Comment on above: Performed By: #### U RIN2 #### [facility] [address] [place] [address] pH (U) 5.5 [pH] Normal 5.0-8.0 [facility] Comment on above: Performed By: #### U RIN2 #### [facility] [address] [place] [address] Protein mass conc (U) 30 mg/dL Abnormal Negative [facility] Comment on above: Performed By: #### U RIN2 #### [place] [address] Specific [place], Ur 1.017 Normal 1.005-1.030 [facility] Comment on above: Performed By: #### U RIN2 #### [facility] [address] [place] [address] Urobilinogen,Ur 1.0 EU/dL Normal 0.0-1.0 [facility] Comment on above: Performed By: #### U RIN2 #### [facility] [address] [place] [address] Cult and Smr Aerobicon 05-10 Cult and [...] will be held for 5 days. Normal [facility] Comment on above: Performed By: #### C _AER #### [place] [address] Add on test from HISon 03-06 Add on test from HIS Accepted Normal [facility] Comment on above: Result Comment: Spec imen available & acceptable for analysis. Performed By: #### H EMDF, BMP3, ETOH4, TROPN, CK3, TSH5 #### [facility] [place] [address] Add on test from HIS Accepted Normal [facility] Comment on above: Result Comment: Spec imen available & acceptable for analysis. Performed By: #### H EMDF, BMP3, ETOH4, TROPN, CK3, TSH5 #### [facility] [place] [address] Add on test from HIS Accepted Normal [facility] Comment on above: Result Comment: Spec imen available & acceptable for analysis. Performed By: #### H EMDF, BMP3, ETOH4, TROPN, CK3, TSH5 #### [address] Basic Metabolic Panelon 02-23 Anion gap molar conc 5 Normal [facility] Comment on above: Performed By: #### H EMDF, BMP3, ETOH4, TROPN, CK3, TSH5 #### [address] Calcium mass conc 7.5 mg/dL Low 8.4-10.4 [facility] Comment on above: Performed By: #### H EMDF, BMP3, ETOH4, TROPN, CK3, TSH5 #### [address] CO2 molar conc 21 mmol/L Low 22-30 [facility] Comment on above: Performed By: #### H EMDF, BMP3, ETOH4, TROPN, CK3, TSH5 #### [address] Glucose mass conc 106 mg/dL High 70-100 [facility] Comment on above: Performed By: #### H EMDF, BMP3, ETOH4, TROPN, CK3, TSH5 #### [address] Urea nitrogen mass conc 4 mg/dL Low 7-20 [facility] Comment on above: Performed By: #### H EMDF, BMP3, ETOH4, TROPN, CK3, TSH5 #### [address] Creatinine mass conc 0.46 mg/dL Low 0.52-1.25 [facility] Comment on above: Performed By: #### H EMDF, BMP3, ETOH4, TROPN, CK3, TSH5 #### [address] GFR/1.73 sq M predicted among blacks MDRD vol rate/area (S/P/Bld) mL/min/{1.73_m2} Normal >60 [facility] Comment on above: Performed By: #### H EMDF, BMP3, ETOH4, TROPN, CK3, TSH5 #### [address] GFR/1.73 sq M predicted among non-blacks MDRD vol rate/area (S/P/Bld) mL/min/{1.73_m2} Normal >60 [facility] Comment on above: Result Comment: Sour ce- MDRD equation with creatinine calibration to IDMS(NKDEP) eGFR not recommended for drug dose adjustment Performed By: #### H EMDF, BMP3, ETOH4, TROPN, CK3, TSH5 #### [address] Potassium molar conc 4.0 mmol/L Normal 3.5-5.1 [facility] Comment on above: Performed By: #### H EMDF, BMP3, ETOH4, TROPN, CK3, TSH5 #### [address] Sodium molar conc 134 mmol/L Low 135-145 [facility] Comment on above: Performed By: #### H EMDF, BMP3, ETOH4, TROPN, CK3, TSH5 #### [address] Chloride molar conc 107 mmol/L Normal 98-107 [facility] Comment on above: Performed By: #### H EMDF, BMP3, ETOH4, TROPN, CK3, TSH5 #### [address] Anion gap molar conc 8 Normal [facility] Comment on above: Performed By: #### H EMDF, BMP3, ETOH4, TROPN, CK3, TSH5 #### [address] Calcium mass conc 8.4 mg/dL Normal 8.4-10.4 [facility] Comment on above: Performed By: #### H EMDF, BMP3, ETOH4, TROPN, CK3, TSH5 #### [address] CO2 molar conc 23 mmol/L Normal 22-30 [facility] Comment on above: Performed By: #### H EMDF, BMP3, ETOH4, TROPN, CK3, TSH5 #### [facility] [address] [place], [place] Glucose mass conc 93 mg/dL Normal 70-100 [facility] Comment on above: Performed By: #### H EMDF, BMP3, ETOH4, TROPN, CK3, TSH5 #### [place] [address] [address] [place], [place] Urea nitrogen mass conc 5 mg/dL Low 7-20 [facility] Comment on above: Performed By: #### H EMDF, BMP3, ETOH4, TROPN, CK3, TSH5 #### [place] [address] [address] [place], [place] Creatinine mass conc 0.59 mg/dL Normal 0.52-1.25 [facility] Comment on above: Performed By: #### H EMDF, BMP3, ETOH4, TROPN, CK3, TSH5 #### [place] [address] [address] [place], [place] GFR/1.73 sq M predicted among blacks MDRD vol rate/area (S/P/Bld) mL/min/{1.73_m2} Normal >60 [facility] Comment on above: Performed By: #### H EMDF, BMP3, ETOH4, TROPN, CK3, TSH5 #### [place] [address] [address] [place], [place] GFR/1.73 sq M predicted among non-blacks MDRD vol rate/area (S/P/Bld) mL/min/{1.73_m2} Normal >60 [facility] Comment on above: Result Comment: Sour ce- MDRD equation with creatinine calibration to IDMS(NKDEP) eGFR not recommended for drug dose adjustment Performed By: #### H EMDF, BMP3, ETOH4, TROPN, CK3, TSH5 #### [place] [address] [address] [place], [place] Chloride molar conc 100 mmol/L Normal 98-107 [facility] Comment on above: Performed By: #### H EMDF, BMP3, ETOH4, TROPN, CK3, TSH5 #### [facility] [address] [place], [place] Potassium molar conc 3.8 mmol/L Normal 3.5-5.1 [facility] Comment on above: Performed By: #### H EMDF, BMP3, ETOH4, TROPN, CK3, TSH5 #### [facility] [address] [place], [place] Sodium molar conc 130 mmol/L Low 135-145 [facility] Comment on above: Performed By: #### H EMDF, BMP3, ETOH4, TROPN, CK3, TSH5 #### [place] [address] [address] [place] CKon 03-06-2018 CK enzyme act/vol 156 U/L Normal 30-170 [facility] Comment on above: Performed By: #### H EMDF, BMP3, ETOH4, TROPN, CK3, TSH5 #### [place] [address] [address] [place], [place] CR Chest Portableon 03-06-19 19 CR Chest Portable Patient Name: CLARIBEL STOLL Diagnostic Radiology Exam Date/Time 03/05/2018 23:28:11 EST Exam CR Chest Portable Ordering Physician LINDA TEMPLE STEPHEN H Accession Number [id number] CPT4 Codes 62843 () Reason For Exam chest pain Report [...] and Time: 03/05/2018 11:44 Normal [facility] CR Elbow 2 Views Lefton 02-23 CR Elbow 2 Views Left Patient Name: CLARIBEL STOLL Diagnostic Radiology Exam Date/Time 03/05/2018 23:28:11 EST Exam CR Elbow 2 Views Left Ordering Physician LINDA TEMPLE STEPHEN H Accession Number [id number] CPT4 Codes 34501 () Reason For Exam Fall Report LEFT [...] R Transcribed Date and Time: 03/05/2018 11:42 [facility] CR Humerus 2+ Views Lefton 03-06-2018 CR Humerus 2+ Views Left Patient Name: CLARIBEL STOLL Diagnostic Radiology Exam Date/Time 03/05/2018 23:28:11 EST Exam CR Humerus 2+ Views Left Ordering Physician LINDA TEMPLE STEPHEN H Accession Number [id number] CPT4 Codes 60247 () Reason For Exam Fall Report LEFT [...] and Time: 03/05/2018 11:41 Normal [facility] CR Shoulder 2+ Views Lefton 03-06-2018 CR Shoulder 2+ Views Left Patient Name: CLARIBEL STOLL Diagnostic Radiology Exam Date/Time 03/05/2018 23:28:11 EST Exam CR Shoulder 2+ Views Left Ordering Physician LINDA TEMPLE STEPHEN H Accession Number [id number] CPT4 Codes 41268 () Reason For Exam pain Report LEFT [...] and Time: 03/05/2018 11:39 Normal [facility] CT Head or Brain w/o Contras ton 03-06-2018 CT Head or Brain w/o Contrast Patient Name: CLARIBEL STOLL CT Exam Date/Time 03/05/2018 22:55:[address] Head or Brain w/o Contrast Ordering Physician LINDA TEMPLE STEPHEN H Accession Number [id number] CPT4 Codes 04156 () Reason For Exam headache or trauma [...] and Time: 03/05/2018 11:13 Normal [facility] Drugs of Abuseon 03-06-2018 Opiates, Ur Positive Normal [facility] Comment on above: Performed By: #### H EMDF, BMP3, ETOH4, TROPN, CK3, TSH5 #### [facility] [address] [place] [address] Cocaine, Ur Negative Normal [facility] Comment on above: Performed By: #### H EMDF, BMP3, ETOH4, TROPN, CK3, TSH5 #### [facility] [address] [place] [address] Methadone, Ur Negative Normal [facility] Comment on above: Performed By: #### H EMDF, BMP3, ETOH4, TROPN, CK3, TSH5 #### [facility] [address] [place] [address] Phencyclidine (PCP), Ur Negative Normal [facility] Comment on above: Result Comment: The [...] EMDF, BMP3, ETOH4, TROPN, CK3, TSH5 #### [place] [address] [address] [place], [place] Benzodiazepines, Ur Negative Normal [facility] Comment on above: Performed By: #### H EMDF, BMP3, ETOH4, TROPN, CK3, TSH5 #### [place] [address] [address] [place], [place] Amphetamines, Ur Negative Normal [facility] Comment on above: Performed By: #### H EMDF, BMP3, ETOH4, TROPN, CK3, TSH5 #### [place] [address] [address] [place], [place] Barbiturates, Ur Negative Normal [facility] Comment on above: Performed By: #### H EMDF, BMP3, ETOH4, TROPN, CK3, TSH5 #### [place] [address] [address] [place], [place] Oxycodone/Oxymorphine,U r Negative Normal [facility] Comment on above: Performed By: #### H EMDF, BMP3, ETOH4, TROPN, CK3, TSH5 #### [place] [address] [address] [place], [place] Ethanol Serum/Plasmaon 03-06 Ethanol-Serum/Plasma 0.064 g/dL High 0.000-0.010 [facility] Comment on above: Result Comment: NOTE : This result is for medical treatment only. Analysis performed using non-forensic procedures. Performed By: #### H EMDF, BMP3, ETOH4, TROPN, CK3, TSH5 #### [address] [place], [place] Hemogramon 03-06-2018 Erythrocyte distribution width Ratio (RBC) 12.0 % Normal 11.5-14.5 [facility] Comment on above: Performed By: #### H EMDF, BMP3, ETOH4, TROPN, CK3, TSH5 #### [address] Hematocrit Volume Fraction (Bld) 35.6 % Normal 35.0-47.0 [facility] Comment on above: Performed By: #### H EMDF, BMP3, ETOH4, TROPN, CK3, TSH5 #### [address] Hemoglobin mass conc (Bld) 12.2 g/dL Normal 11.7-16.0 [facility] Comment on above: Performed By: #### H EMDF, BMP3, ETOH4, TROPN, CK3, TSH5 #### [address] MCH Entitic mass (RBC) 35.3 pg High 26.0-34.0 [facility] Comment on above: Performed By: #### H EMDF, BMP3, ETOH4, TROPN, CK3, TSH5 #### [address] MCHC mass conc (RBC) 34.2 % Normal 32.0-36.0 [facility] Comment on above: Performed By: #### H EMDF, BMP3, ETOH4, TROPN, CK3, TSH5 #### [address] MCV Entitic volume (RBC) 103.1 fL High 79.0-98.0 [facility] Comment on above: Performed By: #### H EMDF, BMP3, ETOH4, TROPN, CK3, TSH5 #### [address] Platelet mean volume Entitic volume (Bld) 8.3 fL Normal 7.4-10.4 [facility] Comment on above: Performed By: #### H EMDF, BMP3, ETOH4, TROPN, CK3, TSH5 #### [address] [place], [place] Platelets #/vol (Bld) 254 10*3/uL Normal 140-440 [facility] Comment on above: Performed By: #### H EMDF, BMP3, ETOH4, TROPN, CK3, TSH5 #### [address] [place], [place] RBC #/vol (Bld) 3.45 10*6/uL Low 3.80-5.20 [facility] Comment on above: Performed By: #### H EMDF, BMP3, ETOH4, TROPN, CK3, TSH5 #### [address] [place] [address] [place], [place] WBC #/vol (Bld) 9.0 10*3/uL Normal 3.6-10.7 [facility] Comment on above: Performed By: #### H EMDF, BMP3, ETOH4, TROPN, CK3, TSH5 #### [address] [place] [address] [address] [place], [place] Hemogram w/ Autodiffon 03-06 Abs Baso Cnt 0.1 10*3/uL Normal 0.0-0.2 [facility] Comment on above: Performed By: #### H EMDF, BMP3, ETOH4, TROPN, CK3, TSH5 #### [address] [place] [address] [address] [place], [place] Abs Neutrophile Cnt 4.4 10*3/uL Normal 1.8-7.0 [facility] Comment on above: Performed By: #### H EMDF, BMP3, ETOH4, TROPN, CK3, TSH5 #### [address] Basophils/100 WBC (Bld) 1.0 % Normal 0.0-2.0 [facility] Comment on above: Performed By: #### H EMDF, BMP3, ETOH4, TROPN, CK3, TSH5 #### [address] Eosinophils #/vol (Bld) 0.1 10*3/uL Normal 0.0-0.5 [facility] Comment on above: Performed By: #### H EMDF, BMP3, ETOH4, TROPN, CK3, TSH5 #### [address] Eosinophils/100 WBC (Bld) 0.6 % Low 1.0-6.0 [facility] Comment on above: Performed By: #### H EMDF, BMP3, ETOH4, TROPN, CK3, TSH5 #### [address] Erythrocyte distribution width Ratio (RBC) 11.9 % Normal 11.5-14.5 [facility] Comment on above: Performed By: #### H EMDF, BMP3, ETOH4, TROPN, CK3, TSH5 #### [address] [address] Granulocytes/100 WBC (Bld) 50.9 % Normal 40.0-80.0 [facility] Comment on above: Performed By: #### H EMDF, BMP3, ETOH4, TROPN, CK3, TSH5 #### [address] Hematocrit Volume Fraction (Bld) 35.2 % Normal 35.0-47.0 [facility] Comment on above: Performed By: #### H EMDF, BMP3, ETOH4, TROPN, CK3, TSH5 #### [address] Hemoglobin mass conc (Bld) 12.1 g/dL Normal 11.7-16.0 [facility] Comment on above: Performed By: #### H EMDF, BMP3, ETOH4, TROPN, CK3, TSH5 #### [address] Lymphocytes #/vol (Bld) 2.8 10*3/uL Normal 1.0-4.3 [facility] Comment on above: Performed By: #### H EMDF, BMP3, ETOH4, TROPN, CK3, TSH5 #### [address] [address] [address] [place], [place] Lymphocytes/100 WBC (Bld) 33.0 % Normal 20.0-40.0 [facility] Comment on above: Performed By: #### H EMDF, BMP3, ETOH4, TROPN, CK3, TSH5 #### [address] MCH Entitic mass (RBC) 34.9 pg High 26.0-34.0 [facility] Comment on above: Performed By: #### H EMDF, BMP3, ETOH4, TROPN, CK3, TSH5 #### [address] MCHC mass conc (RBC) 34.5 % Normal 32.0-36.0 [facility] Comment on above: Performed By: #### H EMDF, BMP3, ETOH4, TROPN, CK3, TSH5 #### [address] MCV Entitic volume (RBC) 101.2 fL High 79.0-98.0 [facility] Comment on above: Performed By: #### H EMDF, BMP3, ETOH4, TROPN, CK3, TSH5 #### [address] Monocytes #/vol (Bld) 1.2 10*3/uL High 0.0-0.8 [facility] Comment on above: Performed By: #### H EMDF, BMP3, ETOH4, TROPN, CK3, TSH5 #### [address] Monocytes/100 WBC (Bld) 14.5 % High 2.0-10.0 [facility] Comment on above: Performed By: #### H EMDF, BMP3, ETOH4, TROPN, CK3, TSH5 #### [address] Platelet mean volume Entitic volume (Bld) 8.4 fL Normal 7.4-10.4 [facility] Comment on above: Performed By: #### H EMDF, BMP3, ETOH4, TROPN, CK3, TSH5 #### [address] [place], [place] Platelets #/vol (Bld) 283 10*3/uL Normal 140-440 [facility] Comment on above: Performed By: #### H EMDF, BMP3, ETOH4, TROPN, CK3, TSH5 #### [address] [address] [address] [place], [place] RBC #/vol (Bld) 3.48 10*6/uL Low 3.80-5.20 [facility] Comment on above: Performed By: #### H EMDF, BMP3, ETOH4, TROPN, CK3, TSH5 #### [address] WBC #/vol (Bld) 8.6 10*3/uL Normal 3.6-10.7 [facility] Comment on above: Performed By: #### H EMDF, BMP3, ETOH4, TROPN, CK3, TSH5 #### [address] [address] [place], [place] Hepatic Functionon 9 ALP enzyme act/vol 107 U/L Normal 38-126 [facility] Comment on above: Performed By: #### H EMDF, BMP3, ETOH4, TROPN, CK3, TSH5 #### [address] ALT enzyme act/vol 56 U/L Normal 13-69 [facility] Comment on above: Performed By: #### H EMDF, BMP3, ETOH4, TROPN, CK3, TSH5 #### [address] AST enzyme act/vol 112 U/L High 15-46 [facility] Comment on above: Performed By: #### H EMDF, BMP3, ETOH4, TROPN, CK3, TSH5 #### [address] Bilirubin mass conc 1.2 mg/dL Normal 0.2-1.3 [facility] Comment on above: Performed By: #### H EMDF, BMP3, ETOH4, TROPN, CK3, TSH5 #### [address] Protein mass conc 5.9 g/dL Low 6.3-8.2 [facility] Comment on above: Performed By: #### H EMDF, BMP3, ETOH4, TROPN, CK3, TSH5 #### [address] [address] [place], [place] Bilirubin.direct mass conc 0.0 mg/dL Normal 0.0-0.3 [facility] Comment on above: Performed By: #### H EMDF, BMP3, ETOH4, TROPN, CK3, TSH5 #### [address] Albumin mass conc 2.8 g/dL Low 3.5-5.0 [facility] Comment on above: Performed By: #### H EMDF, BMP3, ETOH4, TROPN, CK3, TSH5 #### [address] Magnesiumon 03-06-2018 Magnesium mass conc 1.7 mg/dL Normal 1.6-2.3 [facility] Comment on above: Performed By: #### H EMDF, BMP3, ETOH4, TROPN, CK3, TSH5 #### [address] Phosphoruson 03-06-2018 Phosphate mass conc 3.0 mg/dL Normal 2.5-4.5 [facility] Comment on above: Performed By: #### H EMDF, BMP3, ETOH4, TROPN, CK3, TSH5 #### [address] Thyroid Stim. Hormoneon 02-23 Thyroid Stim. Hormone 3.756 u[IU]/mL Normal 0.465-4.68 0 [facility] Comment on above: Performed By: #### H EMDF, BMP3, ETOH4, TROPN, CK3, TSH5 #### [facility] [address] [place], [place] Troponin Ion 03-06-2018 Troponin I.cardiac mass conc ng/mL Normal 0.000-0.034 [facility] Comment on above: Result Comment: 0.04 6 - 0.400 = Indeterminate > 0.400 = Consider Myocardial Injury Performed By: #### H EMDF, BMP3, ETOH4, TROPN, CK3, TSH5 #### [facility] [address] [place], [place] Urinalysis,Macroon 9 Appearance Nom (U) clear Normal Clear [facility] Comment on above: Performed By: #### H EMDF, BMP3, ETOH4, TROPN, CK3, TSH5 #### [address] [address] [place], [place] Bilirubin,Ur Negative Normal Negative [facility] Comment on above: Performed By: #### H EMDF, BMP3, ETOH4, TROPN, CK3, TSH5 #### [address] [place], [place] Color Nom (U) yellow Normal Lt. Yellow [facility] Comment on above: Performed By: #### H EMDF, BMP3, ETOH4, TROPN, CK3, TSH5 #### [address] [address] [place], [place] Glucose Ql (U) NORM Normal Negative [facility] Comment on above: Performed By: #### H EMDF, BMP3, ETOH4, TROPN, CK3, TSH5 #### [address] [place], [place] Ketone,Urine Negative Normal Negative [facility] Comment on above: Performed By: #### H EMDF, BMP3, ETOH4, TROPN, CK3, TSH5 #### [address] [place], [place] Nitrite Ql (U) Positive Normal Negative [facility] Comment on above: Performed By: #### H EMDF, BMP3, ETOH4, TROPN, CK3, TSH5 #### [address] Occult Blood,Ur Negative Normal Negative [facility] Comment on above: Performed By: #### H EMDF, BMP3, ETOH4, TROPN, CK3, TSH5 #### [address] pH (U) 5.0 Normal 5.0-8.0 [facility] Comment on above: Performed By: #### H EMDF, BMP3, ETOH4, TROPN, CK3, TSH5 #### [address] Protein mass conc (U) Negative Normal Negative [facility] Comment on above: Performed By: #### H EMDF, BMP3, ETOH4, TROPN, CK3, TSH5 #### [address] Specific [place],Urine 1.005 Normal 1.005-1.030 [facility] Comment on above: Performed By: #### H EMDF, BMP3, ETOH4, TROPN, CK3, TSH5 #### [address] Urobilinogen Qn (U) NORM Normal 0-1 [facility] Comment on above: Performed By: #### H EMDF, BMP3, ETOH4, TROPN, CK3, TSH5 #### [address] WBC #/vol (Bld) Negative Normal Negative [facility] Comment on above: Performed By: #### H EMDF, BMP3, ETOH4, TROPN, CK3, TSH5 #### [address] Urinalysis,Microscopicon Bacteria LM.HPF #/area (Urine sed) Moderate (6-50) Normal Negative [facility] Comment on above: Performed By: #### H EMDF, BMP3, ETOH4, TROPN, CK3, TSH5 #### [facility] [address] [place], [place] Epithelial cells LM.HPF #/area (Urine sed) 0 - 2 Normal 3-5 [facility] Comment on above: Performed By: #### H EMDF, BMP3, ETOH4, TROPN, CK3, TSH5 #### [address] [address] [place], [place] Mucous Threads Few Normal Negative [facility] Comment on above: Performed By: #### H EMDF, BMP3, ETOH4, TROPN, CK3, TSH5 #### [address] [address] [place], [place] RBC LM.HPF #/area (Urine sed) 0 - 2 Normal 0-2 [facility] Comment on above: Performed By: #### H EMDF, BMP3, ETOH4, TROPN, CK3, TSH5 #### [address] Volume,Urine 7ml Normal [facility] Comment on above: Performed By: #### H EMDF, BMP3, ETOH4, TROPN, CK3, TSH5 #### [address] WBC LM.HPF #/area (Urine sed) 0 - 2 Normal 0-5 [facility] Comment on above: Performed By: #### H EMDF, BMP3, ETOH4, TROPN, CK3, TSH5 #### [address] [address] [place], [place] ED Provider Noteon 9 Protein mass conc I independently performed a history and physical on [facility]. All diagnostic, treatment, and disposition decisions were [...] rhythm at a tachycardic rate of 106 bpm.MO interval normal. QRS complex narrow. QTC normal. No ST segment elevations or depressions. No abnormal T-wave inversions. Good R-wave progression through precordial leads. Interpretation of this EKG myself in the absence of a desk representative is sinus tachycardia. Interpretation of Diagnostic Laboratory [...] provider for clarification. Tank Gabriel MD 03/06/18 8361 Addendum to note: The patient continued to [...] blood pressure. Tank Gabriel MD 03/06/18 0407 [facility] Patient: Claribel Stoll : 1955 [...] Pt denies hitting head. AOx3 ? Fall [employer] Claribel Stoll is a 62 y.o. female [...] # 2.8 1.0 - 4.3 10*3/uL Absolute Bowman # 1.2 (H) 0.0 - 0.8 10*3/uL [...] eGFR >60.0 >60 mL/min EGFR IF NonAfrican Hungarian >60.0 >60 mL/min Calcium 8.4 8.4 - [...] Physician LINDA TEMPLE STEPHEN H Accession Number [id number] CPT4 Codes 66213 () Reason For Exam Fall Report LEFT [...] Physician LINDA TEMPLE STEPHEN H Accession Number [id number] CPT4 Codes 53976 () Reason For Exam Fall Report LEFT [...] Physician LINDA TEMPLE STEPHEN H Accession Number [id number] CPT4 Codes 10895 () Reason For Exam headache or trauma [...] Physician LINDA TEMPLE STEPHEN H Accession Number [id number] CPT4 Codes 73784 () Reason For Exam chest pain Report [...] Physician LINDA TEMPLE, TED Mcdonnell Accession Number [id number] CPT4 Codes 30184 () Reason For Exam pain Report LEFT [...] Department Physician in the absence of a desk representative.?Please see their note for interpretation of EKG. [...] 4 mg EVERY 30 MIN PRN Last MAR action: Given - by UNA BLANKENSHIP on 03/06/18 at 0145 TED TEMPLE 03/06/18 0126 03/06/18 0127 morphine (PF) injection 4 mg EVERY 30 MIN PRN Last APR action: Given - by UNA BLANKENSHIP on 03/06/18 at 0144 TED TEMPLE 03/06/18 0115 03/06/18 0110 0.9 % sodium chloride bolus ONCE Last MAR action: New Bag - by UNA BLANKENSHIP on 03/06/18 at 0119 TANK GABRIEL MEGHA-GO 03/05/18 2245 03/05/18 2244 0.9 % sodium [...] occasionally words aremis-transcribed.) Ted Temple APRN - ASSISTANT CHIEF ENGINEER [employer] Ted Temple APRN - ASSISTANT CHIEF ENGINEER 03/06/18 0230 Normal [facility] Culture, urine Bacteria identified Cx Nom (U) GNR lactose cider maker [facility] Work Phone: Bacteria identified Cx Nom (U) Negative [facility] Work Phone: XR HIP 2V AP/LAT LEFT ([place] ,[place]) [facility] Vital Signs Date Time Vital Sign Value Performing Clinician Faci lity 01-26-2023 08:26-0500 Body temperature 98.6 [degF] Megha Burden MD Work Phone: [facility] 01-26-2023 08:26-0500 Diastolic blood pressure 59 mm[Hg] Megha Burden MD Work Phone: [facility] 01-26-2023 08:26-0500 Heart rate 79 /min Megha Burden MD Work Phone: [facility] 01-26-2023 08:26-0500 Respiratory rate 16 /min Megha Burden MD Work Phone: [facility] 01-26-2023 08:26-0500 SaO2% (BldA) [Mass fraction] 93 % Megha Burden MD Work Phone: [facility] 01-26-2023 08:26-0500 Systolic blood pressure 105 mm[Hg] Megha Burden MD Work Phone: [facility] 01-27-2022 10:48-0500 Body height 165.1 cm Yasmany Roman MD Work Phone: [facility] 01-27-2022 10:48-0500 Body weight 68.04 kg Yasmany Roman MD Work Phone: [facility] 01-27-2022 10:48-0500 Respiratory rate 18 /min Yasmany Roman MD Work Phone: [facility] Encounters Encounter Date Encounter Type Care Provider Facility Start: 09-29-2024 ambulatory Morris Carr OLS Facil ity:[facility] Start: 09-26-2024 ambulatory Morris Carr OLS Facil ity:[facility] Start: 04-04-2024 ambulatory Morris Carr OLS Facil ity:[facility] Start: 03-28-2024 ambulatory Morris Carr OLS Facil ity:[facility] Start: 03-24-2024 ambulatory Morris Carr OLS Facil ity:[facility] Start: 02-19-2024 End: 02-19-2024 ambulatory Morris Carr OLS Facility:[facility] Start: 01-06-2024 End: 01-06-2024 ambulatory Morris Carr OLS Facility:[facility] Start: 11-30-2023 End: 11-30-2023 ambulatory Morris Carr OLS Facility:[facility] Start: 10-27-2023 ambulatory Morris Carr OLS Facil ity:[facility] Start: 05-22-2023 End: 05-22-2023 ambulatory [facility] Work Phone: Start: 05-22-2023 End: 05-22-2023 Departed Referred [facility] [address] Start: 05-15-2023 Registered Referred [facility] [place] - [address] Start: 05-14-2023 End: 05-14-2023 ambulatory [facility] Work Phone: Start: 05-14-2023 End: 05-14-2023 Departed Referred [facility] - [address] Start: 05-06-2023 End: 05-06-2023 ambulatory [facility] Work Phone: Start: 05-06-2023 End: 05-06-2023 Departed Referred [facility] - [address] Start: 03-18-2023 End: 03-18-2023 [facility]ed [facility] [place] [facility] [address] Start: 03-02-2023 End: 03-02-2023 ambulatory [facility] Work Phone: Start: 03-02-2023 End: 03-02-2023 Departed Referred [facility] [place] [facility] [address] Start: 03-02-2023 Registered [facility] [address] Start: 02-20-2023 End: 02-20-2023 ambulatory [facility] Work Phone: Start: 02-20-2023 End: 02-20-2023 Departed Referred [facility] [address] Start: 02-20-2023 Registered [facility] [address] Start: 02-13-2023 End: 02-13-2023 ambulatory [facility] Work Phone: Start: 02-13-2023 End: 02-13-2023 Departed Referred [facility] [place] [facility] [address] Start: 01-30-2023 End: 01-30-2023 Departed Referred [facility] [address] Start: 01-30-2023 Registered [facility] [address] Start: 01-24-2023 End: 12-04-2023 Evaluation and management of inpatient NARSIMHA KODAKANDLA [facility] Start: 01-24-2023 End: 01-26-2023 Evaluation and management of inpatient Megha Burden MD Work Phone: [facility] PCU H6 Comment on above: Closed fracture of r ight hip, initial encounter (HCC) (Primary Dx); Hypoxia; Left arm pain; Anxiety; Dementia, unspecified dementia severity, unspecified dementia type, unspecified whether behavioral, psychotic, or mood disturbance or anxiety (HCC) Start: 01-23-2023 End: 01-23-2023 ambulatory [facility] Work Phone: Start: 01-23-2023 End: 01-23-2023 Departed Referred [facility] - [address] Start: 12-04-2022 End: 12-04-2022 [facility] Work Phone: Start: 12-04-2022 End: 12-04-2022 Departed Referred [facility] - [address] Start: 12-01-2022 End: 12-01-2022 Departed Referred [facility] - [address] Start: 01-27-2022 End: 01-27-2022 ambulatory YASMANY ROMAN [facility] Start: 01-27-2022 End: 01-27-2022 Patient encounter procedure Yasmany Roman MD Work Phone: [facility] Comment on above: Closed subcapital fr acture of left femur with routine healing, subsequent encounter (Primary Dx) Start: 01-10-2022 End: 01-10-2022 ambulatory [facility] Work Phone: Start: 01-10-2022 End: 01-10-2022 Departed Referred [facility] - [address] Start: 12-28-2021 Registered Referred [facility] - [address] Start: 12-13-2021 End: 12-24-2021 Evaluation and management of inpatient YASMANY ROMAN Facility:[facility] Start: 08-06-2021 End: 08-06-2021 Departed Referred [facility] - [address] Start: 07-04-2021 End: 07-04-2021 Departed Referred [facility] - [address] Start: 05-31-2021 End: 05-31-2021 Departed Referred [facility] - [address] Start: 04-23-2021 End: 04-23-2021 Departed Referred [facility] - [address] Start: 05-10-2018 End: 05-19-2018 Evaluation and management of inpatient ARUN MCLAUGHLIN Facility:[facility] Start: 04-06-2018 Patient encounter procedure CLAU ANGELA SANTORO [facility] Start: 03-31-2018 Patient encounter procedure UNKNOWN PROVIDER [facility] Start: 03-06-2018 Patient encounter procedure UNKNOWN PROVIDER [facility] Procedures Date Procedure Procedure Detail Performing [...] on above: Performed By: #### L [id number] ####Home Visits Nurse: ASHER HAY ([phone])[facility] ([facility])[address] [place] [address] [facility] [[email or web address] Start: 01-24-2023 ABO and Rh group [Ty pe] in Blood by Confirmatory method Ila Valentin MD Work Phone: Start: 01-24-2023 Blood typing serolog ic rh (d) Ila Valentin MD Work Phone: Start: 01-24-2023 Prothrombin time Ila Valentin MD Work Phone: Start: 01-24-2023 Radiologic examinati on femur minimum 2 views Ila Valentin MD Work Phone: Start: 01-24-2023 Radiologic exam ches t single view Megha Burden MD Work Phone: Start: 01-24-2023 SARS-COV-2, FLU A/B, AND RSV COMBO Megha Burden MD Work Phone: Start: 01-24-2023 Basic metabolic pane l calcium total Megha Burden MD Work Phone: Start: 01-24-2023 Thyrotropin [Units/v olume] in Serum or Plasma Megha Burden MD Work Phone: Start: 01-24-2023 Ecg routine ecg w/le ast 12 lds i&r only Megha Burden MD Work Phone: Start: 01-24-2023 Ct head/brain w/o co ntrast material Megha Burden MD Work Phone: Start: 01-24-2023 Radex hip unilateral with pelvis 2-3 views Megha Burden MD Work Phone: Start: 01-27-2022 Radex hip unilateral with pelvis 2-3 views Yasmany Roman MD Work Phone: Start: 12-13-2021 Antibody screen YASMANY ROMAN Comment on above: Order Comment: Speci men Type: BLOOD SPECIMEN Ordering Facility: [facility] Address: [address] [place] [id number] Performed By: #### T SCR #### [facility] CLIA [id number] [address] [place] Start: 04-23-2021 Urine culture Urine culture Plan of Treatment Date Care Activity Detail Author Start: 12-24-2024 DIABETES SCREEN DIABETES SCREEN [facility] Start: 01-25-2024 Thyroid stimulating hormone measurement TSH Level [facility] Start: 10-24-2022 COVID-19 Vaccine () COVID-19 Vaccine ( season) [facility] Start: 10-24-2022 Influenza vaccination Influenza Vaccine (#1) [facility] Start: 10-24-2021 Influenza vaccination INFLUENZA (#1) [facility] Start: 04-10-2021 COVID-19 VACCINE (3 - Booster for Pfizer series) COVID-19 VACCINE (3 - Booster for Pfizer series) [facility] Start: 02-23-2021 ADVANCE DIRECTIVE DISCUSSION ADVANCE DIRECTIVE DISCUSSION [facility] Start: 09-26-2019 BONE DENSITY BONE DENSITY [facility] Start: 09-26-2019 Pneumococcal Vaccine: 65+ Years (1 - PCV) Pneumococcal Vaccine: 65+ Years (1 - PCV) [facility] Start: 09-26-2019 PNEUMOCOCCAL: 65+ (1 - PCV) PNEUMOCOCCAL: 65+ (1 - PCV) [facility] Start: 2014 RSV Immunization aged 60 or older (1 - 1-dose 60+ series) RSV Immunization aged 60 or older (1 - 1-dose 60+ series) [facility] Start: 2004 SHINGRIX VACCINE (1 of 2) SHINGRIX VACCINE (1 of 2) [facility] Start: 2004 Zoster Vaccines (1 of 2) Zoster Vaccines (1 of 2) [facility] Start: 09-26-1999 COLOGUARD (FIT-DNA) COLOGUARD (FIT-DNA) [facility] Start: 09-26-1999 Colonoscopy COLONOSCOPY [facility] Start: 09-26-1999 COLORECTAL CANCER SCREENING COLORECTAL CANCER SCREENING [facility] Start: 09-26-[address] COLONOGRAPHY [facility] Start: 09-26-1999 FECAL OCCULT BLOOD FECAL OCCULT BLOOD [facility] Start: 09-26-1999 LIPID SCREEN LIPID SCREEN [facility] Start: 09-26-1999 SIGMOIDOSCOPY SIGMOIDOSCOPY [facility] Start: 1994 Mammography MAMMOGRAM [facility] Start: 1994 Screening for malignant neoplasm of breast Mammogram [facility] Start: 1973 DTaP/Tdap/Td Vaccines (1 - Tdap) DTaP/Tdap/Td Vaccines (1 - Tdap) [facility] Start: 1973 Urine microalbumin profile DTAP,TDAP,TD (1 - Tdap) [facility] Start: 1972 Diabetes mellitus screening Diabetes Screening [facility] Start: 1972 HEPATITIS C SCREENING HEPATITIS C SCREENING [facility] Start: 1972 Hepatitis C screening Hepatitis C Screening [facility] Start: 1966 Depression Screening Depression Screening [facility] Start: 1955 Medicare Advantage Annual Wellness Visit (AWV) Medicare Advantage Annual Wellness Visit (AWV) [facility] Start: 1955 Screening for malignant neoplasm of colon [facility] Start: 1955 Screening for osteoporosis Bone Density Scan [facility] ECG 12 lead ECG 12 lead CV E CG STAT 01/26/2023 9:30 AM EST [facility] Work Phone: Payers Date Payer Category Payer Self-pay [id number] 2020 Medicaid [id number] 2020 Medicaid [place] [employer] [place] [employer] [id number] 2020-Present [phone] [address] [place] [address] Medicaid [id number] 2020 Medicare [place] [employer] [place] [employer] [id number] 2020-Present [address] [place] [address] Medicare O [id number] 2020 Unknown [id number] 2020 Unknown [facility] SNP [id number] 2020-Present [phone] [address] [place] [address] HMO [id number] 1955 Unknown [id number] 1955 Unknown [id number] 668 1955 Unknown [id number] 1955 Unknown [id number] Medicaid [id number] Medicare [id number] Private Health Insurance Unknown [id number] 462 Unknown [id number]. 462 Unknown [id number]. 462 Unknown [id number]. 462 Unknown [id number]. 462 Unknown [id number] [id number]. 462 Unknown [id number] [id number]. 462 Unknown [id number] [id number]. 462 Unknown [id number]. 462 Social History Date Type Detail Facility Tobacco smoking stat us NHIS Unknown if ever smoked [facility] Work Phone: Start: 1955 Sex Assigned At Female [facility] Start: 01-27-2022 Tobacco smoking status NHIS Ex-smoker [facility] History of tobacco use Current smoker [facility] Start: 04-20-2018 End: 01-27-2022 Alcohol intake Current drinker of alcohol (finding) [facility] Start: 05-10-2018 Alcohol Comment occasional [facility] Start: 1955 Sex Assigned At Not on file [facility] Start: 01-17-2022 End: 01-27-2022 Exposure to SARS-CoV-2 (event) Not sure [facility] Start: 01-24-2023 History of Social function [facility] Start: 01-24-2023 Alcohol Use Disorder Identification Test - Consumption [AUDIT-C] [facility] How often to you hav e a drink containing alcohol? Never [facility] How many standard dr inks containing alcohol do you have on a typical day? Patient does not drink [facility] Medical Equipment Procedure Code Equipment Code Equipment Origin al Text Equipment Identifier Dates Sleeve Unitrax + 0mm C Taper Centering Hip Femur - [id number] Start: 12-14-2021 Head Unitrax 44m m Unipolar Modular [place] V40 Stem Hip Femoral - [id number] Start: 12-14-2021 Cement Bone Simp sebastian P Full - [id number] Start: 01-25-2023 Conquest Fx Femo ral Component [id number] Start: 01-25-2023 Sleeve Fem Tndm -3mm 02/05 Hip - [id number] Start: 01-25-2023 Clinical Notes 12-13-2021 to 01-26-2023 Care Coordination - Nyla Haider RN - 01/26/2023 3:14 PM ESTCare Coordination - Nyal Haider RN - 01/26/2023 3:14 PM ESTCare Coordination - Nyla Haider RN - 01/26/2023 3:14 PM EST Note Date & Type Note Facility 01-26-2023 Note Formatting of this n ote might be different from the original. ICT SALES REPRESENTATIVE tasked to send discharge paperwork to [facility]. [facility] 01-26-2023 Note Formatting of this n ote might be different from the original. ICT SALES REPRESENTATIVE tasked to send discharge paperwork to [facility]. [facility] 01-26-2023 Miscellaneous Notes ICT SALES REPRESENTATIVE tasked to send discharge paperwork to [facility]. Problem: Knowledge Deficit Goal: Patient/family/caregiver demonstrates understanding [...] Completed Discharge med list transmitted to Return [facility] via [facility] per TCC request. Transport arranged for 1600 today to tranfer patient to [facility]. RN, JJ, , [facility], sister (Missy) were notified. Care Managment Initial Assessment Date: 01/26/2023 Patient Name: Claribel Stoll : 1955 Patient Information Source of Information: Patient Cmv Driver Name/Contact Information: Missy Whitfield - sister Cognition/Language: Confused at baseline Permission given to speak with patient distribution sales representative/caregiver as indicated: Confirmation of Payer with patient/family: Yes Payer Name: [place] [employer] [place]: Confirmation of Primary Care Physician: Confirmed PCP Name: morris Carr Seen in last 2 years?: Yes Primary Caregiver: If assistance needed, confirmed caregiver ready, willing and able to care for patient at discharge: Confirmed with: lives at [facility] Living Arrangements Current Residence: Number of Floors Number of Entry Steps: Bed/Bath Levels: Facility: [facility] Facility Name: [facility] Plan to Return: Lives with: Other (Comment) Support Systems: Family members Activities of Daily Living Ambulation: Total Care Bathing/Dressing: Total Care Elimination/Continence/Toileting: Assistance Feeding: Assistance Who Assists with Activities of Daily Living: staff at [facility] Instrumental Activities of Daily Living Prescription Coverage: [...] expects to be discharged to: back to [facility] Discharge Planning Actions: No needs identified Patient's Choice Rights and [employer] and Collaborative Relationships Disclosed as Indicated for Post-Acute Care: Interdisciplinary Team Engagement: PT/OT Social Work Referral for: Additional Information: Patient remains on H6 after fall s/p [facility] 01/25/2023. Discharge order noted. Call placed to Missy Whitfield sister of patient. Missy answered admission questions. Patient lives at [facility] and uses a w/c at baseline, staff assists with all care. [facility] patient is at intermediate level of care and is a bedhold, able to take patient back today. personal support worker aware of need to transport. TCC to assist and follow as needed. Nyla Haider RN Referral placed to [facility]. Await review and response [...] pressure to bony prominences Paged to Pt for concern of mental status change number operator the course of the evening. Pt POD [...] state age correctly, states she is at [facility] . She does not recall why she [...] pain Report called to floor, transport initiated [facility] [address] [address] Dept: [phone] Loc: [phone] Operative Report Patient Name: Claribel Stoll Date of : 1955 Date of Surgery: 01/25/23 Pre-operative diagnosis: Right displaced femoral neck fracture Post-operative diagnosis: Same Procedure(s): Cemented hemiarthroplasty of right hip (CPT 08563) Surgeon: Randee Oliver M.D. Channel Lip Wetter(s): Jericho Maradiaga M.D. Anesthesia: General EBL: 50 [...] as well as medical complications such as AK, stroke, PE, DVT, and even . Patient [...] improving Outcome: Progressing documented in this encounter [facility] 01-26-2023 Plan of care note Problem: Knowledge [...] integrity is maintained or improved Outcome: Completed [facility] 01-26-2023 Note Formatting of this n ote might be different from the original. Discharge med list transmitted to Return [facility] via [facility] per TCC request. [facility] 01-26-2023 Note Formatting of this n ote might be different from the original. Discharge med list transmitted to Return [facility] via [facility] per TCC request. [facility] 01-26-2023 Note Formatting of this n ote might be different from the original. Transport arranged for 1600 today to tranfer patient to [facility]. RNJJ, [place], [facility], sister (Missy) were notified. [facility] 01-26-2023 Note Formatting of this n ote might be different from the original. Transport arranged for 1600 today to tranfer patient to [facility]. RNJJ, [place], [facility], sister (Missy) were notified. [facility] 01-26-2023 Note Referral placed to Emily ortiz [facility] via [facility] per [facility] request. Await review and response regarding ability to accept. TCC notified. [facility] 01-26-2023 Note Formatting of this n ote might be different from the original. Care Managment Initial Assessment Date: 01/26/2023 Patient Name: Claribel Stoll : 1955 Patient Information Source of Information: Patient Cmv Driver Name/Contact Information: Missy Whitfield - Cognition/Language: Confused at baseline Permission given to speak with patient distribution sales representative/caregiver as indicated: Confirmation of Payer with patient/family: Yes Payer Name: [place] [employer] [place]: Confirmation of Primary Care Physician: Confirmed PCP Name: morris Carr Seen in last 2 years?: Yes Primary Caregiver: If assistance needed, confirmed caregiver ready, willing and able to care for patient at discharge: Confirmed with: lives at [facility] Living Arrangements Current Residence: Number of Floors Number of Entry Steps: Bed/Bath Levels: Facility: [facility] Facility Name: [facility] Plan to Return: Lives with: Other (Comment) Support Systems: Family members Activities of Daily Living Ambulation: Total Care Bathing/Dressing: Total Care Elimination/Continence/Toileting: Assistance Feeding: Assistance Who Assists with Activities of Daily Living: staff at [facility] Instrumental Activities of Daily Living Prescription Coverage: [...] expects to be discharged to: back to [facility] Discharge Planning Actions: No needs identified Patient's Choice Rights and [employer] and Collaborative Relationships Disclosed as Indicated for Post-Acute Care: Interdisciplinary Team Engagement: PT/OT Social Work Referral for: Additional Information: Patient remains on H6 after fall s/p [facility] 01/25/2023. Discharge order noted. Call placed to Missy Whitfield sister of patientJimy Louis answered admission questions. Patient lives at [facility] and uses a w/c at baseline, staff assists with all care. [facility] patient is at intermediate level of care and is a bedhold, able to take patient back today. personal support worker aware of need to transport. TCC to assist and follow as needed. Nyla Haider RN [facility] 01-26-2023 Note Formatting of this n ote might be different from the original. Care Managment Initial Assessment Date: 01/26/2023 Patient Name: Claribel Stoll : 1955 Patient Information Source of Information: Patient Cmv Driver Name/Contact Information: Missy Huertason - sister Cognition/Language: Confused at baseline Permission given to speak with patient distribution sales representative/caregiver as indicated: Confirmation of Payer with patient/family: Yes Payer Name: [place] Medicare : Confirmation of Primary Care Physician: Confirmed PCP Name: morris Carr Seen in last 2 years?: Yes Primary Caregiver: If assistance needed, confirmed caregiver ready, willing and able to care for patient at discharge: Confirmed with: lives at [facility] Living Arrangements Current Residence: Number of Floors Number of Entry Steps: Bed/Bath Levels: Facility: [facility] Facility Name: [facility] Plan to Return: Lives with: Other (Comment) Support Systems: Family members Activities of Daily Living Ambulation: Total Care Bathing/Dressing: Total Care Elimination/Continence/Toileting: Assistance Feeding: Assistance Who Assists with Activities of Daily Living: staff at [facility] Instrumental Activities of Daily Living Prescription Coverage: [...] expects to be discharged to: back to [facility] Discharge Planning Actions: No needs identified Patient's Choice Rights and [employer] and Collaborative Relationships Disclosed as Indicated for Post-Acute Care: Interdisciplinary Team Engagement: PT/OT Social Work Referral for: Additional Information: Patient remains on H6 after fall s/p [facility] 01/25/2023. Discharge order noted. Call placed to Missy Whitfield sister of patient. Missy answered admission questions. Patient lives at [facility] and uses a w/c at baseline, staff assists with all care. [facility] patient is at intermediate level of care and is a bedhold, able to take patient back today. personal support worker aware of need to transport. TCC to assist and follow as needed. Nyla Haider RN [facility] 01-26-2023 Note Hospitalist Discharg e Summary Claribel [...] at baseline. LABS: Recent Labs 01/24/2321601/25/238 01/26/23 0105 NA 137 135 137 K 4.3 3.8 3.9 CL 105 105 104 CO2 25 21* 24 BUN 19* 14 12 CREATININE 0.73 0.58 0.53 GLUCOSE 116* 97 129* CALCIUM 8.9 8.4 8.7 Recent Labs 01/24/2321601/25/238 01/26/23 0105 WBC 14.6* 10.9* 14.7* RBC [...] packet Recommended Follow-up: Randee Oliver MD [address] [facility] [address] [facility] [phone] (more content not included)... [facility] 01-26-2023 Note OCCUPATIONAL THERAPY [facility] Initial Evaluation Name/MRN: Claribel Stoll ([id number]) Evaluation Date: 01/26/2023 Date of : 1955 Admission Date: 01/24/2023 12:48 AM Age: 67 y.o. Room/Bed: [facility] A Discharge Recommendation: SNF Equipment Needed: front [...] fracture of right hip, initial encounter ([facility]) 01/24/2023 Left arm pain 03/06/2018 Closed fracture [...] events, decreased short term memory, and decreased skilled nursing memory - Safety judgement: decreased awareness of need for assistance and decreased awareness of need for safety - Problem solving: assistance required to generate solutions - Insights: decreased awareness of deficits and not aware of deficits Overall Orientation Status: Oriented to Person, Disoriented to Situation, Disoriented to Time, and Disoriented to Place Social/Functional History Patient admitted from [facility] . Assistive Equipment: Unknown Prior Level of [...] 01/26/23 Expected End: (more content not included)... [facility] 01-26-2023 Note Hospitalist Progress Note 01/26/2023 [...] 5mg, scheduled Haldol and Lyrica. Evaluated by concrete carpenter. Also complaining of chest pain this morning [...] left proximal humerus LABS: CBC: Recent Labs 01/24/2321601/25/238 01/26/23 010 WBC 14.6* 10.9* 14.7* RBC 4.18 3.81 3.75* HGB 11.3* 10.4* 10.2* HCT 35.6 32.9* 32.0* MCV 85.2 86.3 85.2 RDW 14.7* 15.0* 14.9* PLT 292 250 259 BMP: Recent Labs 01/24/237 01/25/238 01/26/23 010 NA 137 135 137 K 4.3 3.8 3.9 CL 105 105 104 CO2 25 21* 24 BUN 19* 14 12 CREATININE 0.73 0.58 0.53 GLUCOSE 116* 97 129* CALCIUM 8.9 8.4 8.7 ANIONGAP 8 9 8 LIVER PROFILE: Recent Labs 01/26/23 010 AST 28 ALT 11 BILITOT 0.8 ALKPHOS 70 PROT 6.9 PT/INR: Recent Labs 01/24/23 0601 01/25/2337 PROTIME 10.6 10.7 INR 1.0 1.0 CARDIAC [...] As a resul (more content not included)... [facility] 01-26-2023 Note Formatting of this n ote might be different from the original. Referral placed to Return SNF- [facility] via [facility] per TCC request. Await review and response regarding ability to accept. TCC notified. [facility] 01-26-2023 Note Formatting of this n ote might be different from the original. Referral placed to Return SNF- [facility] via [facility] per TCC request. Await review and response regarding ability to accept. TCC notified. [facility] 01-26-2023 Note PHYSICAL THERAPY [facility] Initial Evaluation Name/MRN: Claribel Stoll ([id number]) Evaluation Date: 01/26/2023 Date of : 1955 Admission Date: 01/24/2023 12:48 AM Age: 67 y.o. Room/Bed: [facility]/H-6106 A Discharge Recommendation: SNF Equipment Needed: TBD [...] fracture of right hip, initial encounter ([facility]) 01/24/2023 Left arm pain 03/06/2018 Closed fracture [...] Hearing: normal Social/Functional History Patient admitted from [facility] . Assistive Equipment: Unknown Prior Level of [...] chair, chair al (more content not included)... [facility] 01-26-2023 Hospital course Narrative Images from [...] status is at baseline. LABS: Recent Labs 01/24/23 0217 01/25/23 0038 01/26/23 0105 NA 137 135 137 K 4.3 3.8 3.9 CL 105 105 104 CO2 25 21* 24 BUN 19* 14 12 CREATININE 0.73 0.58 0.53 GLUCOSE 116* 97 129* CALCIUM 8.9 8.4 8.7 Recent Labs 01/24/23 0217 01/25/23 0038 01/26/23 [...] g packet Recommended Follow-up: Randee Oliver MD [address] [place] [address] [address] [facility] [address] Schedule an appointment as soon as possible for a visit in 2 week(s) Post-Op Check-up Morris Yessica [address] [place] [address] [address] [facility] [phone] Follow up in 1 week(s) Complexity of Follow up: [] Moderate Complexity: follow up within 7-14 calendar days (03327) [x] Severe Complexity: follow up within 7 calendar days (41881) Follow up Testing, Pending results or Referrals [...] DO Division of Hospitalist Medicine Inpatient Medical Services/[facility] 01/26/2023, 10:44 AM documented in this encounter [facility] 01-26-2023 History of Present illness Narrative Images from the original note were not included. OCCUPATIONAL THERAPY [facility] Initial Evaluation Name/MRN: Claribel Stoll ([id number]) Evaluation Date: 01/26/2023 Date of : 1955 Admission Date: 01/24/2023 12:48 AM Age: 67 y.o. 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 Assistive Equipment: Unknown Prior Level of [...] Daily Activity Raw Score: 17 ADL Inpatient [facility] G-Code Modifier: CK Plan Pt would benefit [...] of Care supervision is transferred to a [facility] Therapy Services Occupational Therapist. Goals and/or treatment [...] 5mg, scheduled Haldol and Lyrica. Evaluated by concrete carpenter. Also complaining of chest pain this morning [...] PLT 292 250 259 BMP: Recent Labs 01/24/237 01/25/23 0038 01/26/23 0105 [...] Relation: Other Savanna Lutz DO [facility] Medicine In[facility] Medical Services/[facility] Nutrition rescreen completed. Chart reviewed. Patient to be monitored and followed by the diet filling technician. CONNOR Canales Images from the original note were not included. PHYSICAL THERAPY [facility] Initial Evaluation Name/MRN: Claribel Stoll ([id number]) Evaluation Date: 01/26/2023 Date of : 1955 Admission Date: 01/24/2023 12:48 AM Age: 67 y.o. Room/Bed: [facility] A Discharge Recommendation: SNF Equipment Needed: TBD [...] fracture of right hip, initial encounter ([facility]) 01/24/2023 Left arm pain 03/06/2018 Closed fracture [...] Hearing: normal Social/Functional History Patient admitted from [facility] . Assistive Equipment: Unknown Prior Level of [...] Raw Score (No Stairs) : 10 [facility] Score: Transferred to chair/commode Plan Pt would [...] Minutes 21 PPE worn in accordance with [facility] Jingshi Wanwei guidelines. Zora Mcpherson, PT Patient's Physical Therapy Plan of Care supervision is transferred to a [facility] Therapy Services Physical Therapist. Goals and/or treatment plan was established in collaboration with patient/family/other representatives. [facility] PCU H[address] [facility] [address] Dept: [phone] Loc: [phone] Orthopedic Progress Note Name: Claribel Stoll Date:01/26/2023 [...] foot. Pulses: Palpable DP LABS: Recent Labs 01/24/2321601/25/238 01/26/23 0105 WBC 14.6* 10.9* 14.7* HGB 11.3* 10.4* 10.2* HCT 35.6 32.9* 32.0* PLT 292 250 259 Recent Labs 01/24/23 0217 01/25/23 0038 01/26/23 010 NA 137 135 137 K [...] Admit Date: 01/24/2023 PCP: Morris Carr Room#: H-6106/H-2856 A Interval History: pt just back from surgery, feels drowsy, denies any complaints. Adult diet Regular @[id number]@ 24HR INTAKE/OUTPUT: Intake/Output Summary (Last 24 hours) at 01/25/2023 1244 Last data filed at 01/25/2023 0950 Gross per 24 hour Intake 1400 ml Output 1450 ml Net -50 ml Past Medical History: Past Medical History: Diagnosis Date Anxiety Depression Fractures 03/05/2018 left proximal humerus LABS: CBC: Recent Labs 01/24/23 0217 01/25/23 0038 WBC 14.6* 10.9* RBC 4.18 3.81 HGB 11.3* 10.4* HCT 35.6 32.9* MCV 85.2 86.3 RDW 14.7* 15.0* PLT 292 250 BMP: Recent Labs 01/24/2321601/25/2337 NA 137 135 K 4.3 3.8 CL 105 105 CO2 25 21* BUN 19* 14 CREATININE 0.73 0.58 GLUCOSE 116* 97 CALCIUM 8.9 8.4 ANIONGAP 8 9 LIVER PROFILE:No results for input(s): "AST", "ALT", "BILITOT", "ALKPHOS", "PROT" in the last 72 hours. No lab exists for component: LABALBU PT/INR: Recent Labs 01/24/23 0601/25/2337 PROTIME 10.6 10.7 INR 1.0 1.0 CARDIAC [...] 01/25/2023 Division of Hospitalist Medicine Inpatient Medical Services/[facility] PAGER: [phone] Orthopedic surgery postoperative plan of care: -Operative [...] MD Orthopaedic Surgery PGY-3 9:47 AM 01/25/2023 [facility] PCU H[address] [place] [address] Dept: [phone] Loc: [phone] Orthopedic Progress Note Name: Claribel Stoll Date:01/25/2023 Attending:Sammie Singh MD Subjective Pleasantly confused this morning. Denies pain besides R hip. Objective Vitals: Vitals: 01/24/23 0402 01/24/23 0605 01/24/23 1115 01/24/236 BP: 106/58 101/63 121/59 101/55 BP Location: [...] CALCIUM 8.9 8.4 Recent Labs 01/24/23 0601 01/25/238 INR 1.0 1.0 No results for input(s): [...] 01/24/2023 2:42 PM documented in this encounter [facility] 01-26-2023 Plan of care note Problem: Knowledge [...] skin integrity Relieve pressure to bony prominences [facility] 01-26-2023 Note [facility]ARE UNIT PCU [address] [address] Dept: [phone] Loc: [phone] Orthopedic Progress Note Name: Clairbel Stoll Date:01/26/2023 Attending:Savanna Lutz, DO Subjective Resting [...] Recent Labs 01/24/23 0217 01/25/23 0038 01/26/23 010 NA 137 135 137 K [...] Annie Mullen MD Orthopaedic Surgery, PGY-5 [phone] [facility] 01-26-2023 Nurse Note Pt alertness declined over shift, Dr Domínguez up to assess the patient. FOOTWEAR STITCHER notified per Dr Domínguez. FOOTWEAR STITCHER up to assess the patient. Narcan given per order with no change. Pt taken down to CT. [facility] 01-26-2023 Nurse Note Pt alertness declined over shift, Dr Domínguez up to assess the patient. FOOTWEAR STITCHER notified per Dr Domínguez. FOOTWEAR STITCHER up to assess the patient. Narcan given per order with no change. Pt taken down to CT. documented in this encounter [facility] 01-26-2023 Note Formatting of this n ote might be different from the original. Paged to Pt Rm for concern of mental status change number operator the course of the evening. Pt POD [...] CT Head for this mental status change [facility] Work Phone: 01-26-2023 Note Formatting of this n ote might be different from the original. Paged to Pt Rm for concern of mental status change number operator the course of the evening. Pt POD [...] CT Head for this mental status change [facility] Phone: 01-26-2023 Note Formatting of this n ote might be different from the original. Called to see patient for decreased mental status, confusion. Patient had a hemiarthroplasty of right hip on 01/25/2023. Patient Ativan at 1328, Oxycodone at 1506, Haldol at [address] Doímnguez was up to see patient, requested Rapid response come up to assess neuro status. Upon our arrival, patient awake in bed, responds to name. Patient has hx dementia. Unable to state age correctly, states she is at [facility] . She does not recall why she [...] mental status. Order received for CT scan [employer] 01-26-2023 Note Formatting of this n ote [...] state age correctly, states she is at [facility] . She does not recall why she [...] mental status. Order received for CT scan [employer] 01-25-2023 Note Hospitalist Progress Note Subjective: Admit Date: 01/24/2023 PCP: Morris Carr Room#: H-6106/H-6106 A Interval History: pt just back from surgery, feels drowsy, denies any complaints. Adult diet Regular @GTRI2QWUWFM@ 24HR INTAKE/OUTPUT: Intake/Output Summary (Last 24 hours) at 01/25/2023 1244 Last data filed at 01/25/2023 0950 Gross per 24 hour Intake 1400 ml Output 1450 ml Net -50 ml Past Medical History: Past Medical History: Diagnosis Date Anxiety Depression Fractures 03/05/2018 left proximal humerus LABS: CBC: Recent Labs 01/24/23 0217 01/25/23 0038 WBC 14.6* 10.9* RBC 4.18 3.81 HGB 11.3* 10.4* HCT 35.6 32.9* MCV 85.2 86.3 RDW 14.7* 15.0* PLT 292 250 BMP: Recent Labs 01/24/2321601/25/2337 NA 137 135 K 4.3 3.8 CL 105 105 CO2 25 21* BUN 19* 14 CREATININE 0.73 0.58 GLUCOSE 116* 97 CALCIUM 8.9 8.4 ANIONGAP 8 9 LIVER PROFILE:No results for input(s): "AST", "ALT", "BILITOT", "ALKPHOS", "PROT" in the last 72 hours. No lab exists for component: LABALBU PT/INR: Recent Labs 01/24/23 0601 01/25/2337 PROTIME 10.6 10.7 INR 1.0 1.0 CARDIAC [...] 01/25/2023 Division of Hospitalist Medicine Inpatient Medical Services/[facility] PAGER: [phone] [facility] 01-25-2023 Note Patient: Claribel jay Procedure Summary Date: 01/25/23 Room / Location: [facility] OR [address] [place] [address] Operating Room Anesthesia Start: 734 Anesthesia Stop: 1007 Procedure: HEMIARTHROPLASTY HIP PARTIAL POSTERIOR APPROACH (Right: Hip) Diagnosis: Closed fracture of right hip, initial encounter ([facility]) (Closed fracture of right hip, initial encounter ([facility]) [S72.001A]) Surgeons: Randee Oliver MD Responsible Provider: [...] once all PACU criteria has been met. [facility] 01-25-2023 Note Patient: Claribel jay Procedure Summary Date: 01/25/23 Room / Location: [facility] OR [address] [place] [address] Operating Room Anesthesia Start: 734 Anesthesia Stop: Procedure: HEMIARTHROPLASTY HIP PARTIAL POSTERIOR APPROACH (Right: Hip) Diagnosis: Closed fracture of right hip, initial encounter ([facility]) (Closed fracture of right hip, initial encounter ([facility]) [S72.001A]) Surgeons: Randee Oliver MD Responsible Provider: [...] opportunity for questions and acknowledgement of understanding. [facility] 01-25-2023 Note Orthopedic surgery p ostoperative [...] MD Orthopaedic Surgery PGY-3 9:47 AM 01/25/2023 [facility] 01-25-2023 Note Peripheral Block Time Out: [...] Block Prep: ChloraPrep Patient monitoring: heart rate, monitoring tech, continuous pulse ox and continuous capnometry O2: [...] changes noted and No symptoms of toxicityMedications ukrICHQSersxh-yddfxlolexj-rgrhojrv ine (TAP) syringe - Injection 60 mL - 01/25/2023 9:25:00 AM [facility] 01-25-2023 Note Formatting of this n ote might be different from the original. Pt to floor with transport, nad, resp non labored, alert and denies any pain [facility] 01-25-2023 Note Formatting of this n ote might be different from the original. Pt to floor with transport, nad, resp non labored, alert and denies any pain [facility] 01-25-2023 Note Formatting of this n ote might be different from the original. Report called to floor, transport initiated [facility] 01-25-2023 Note Formatting of this n ote might be different from the original. Report called to floor, transport initiated [facility] 01-25-2023 Note Airway Date/Time: 01/25/2023 7:45 AM Urgency: scheduled Airway not difficult General Information and Staff Patient location during procedure: Procedural Resident/SLICE PLUG CUTTER OPERATOR: TILA Torrez CRNA Performed: SLICE PLUG CUTTER OPERATOR Performed by: TILA Torrez CRNA Authorized by: [...] mask Number of other approaches attempted: 1 [facility] 01-25-2023 Hospital Discharge instructions Jericho Maradiaga [...] Minimal assistance Toileting Total assistance Feeding Independent Patient Safety Coordinator Minimal assistance Med Delivery yes Wound Care [...] is not on home oxygen therapy. Ventilator: {TAYLOR Ventilator:98332} Rehab Therapies: {GEN THERAPY DISCIPLINE SCAL:3219819} Weight Bearing Status/Restrictions: weight bearing as tolerated Other Medical Equipment (for information only, NOT a DME order): wheeled walker Other Treatments: Patient's personal belongings (please select all that are sent with patient): clothing RN SIGNATURE: MANAGEMENT/SOCIAL WORK SECTION Inpatient Status Date: 01/24/2023 Readmission Risk Assessment Score: @READMISSIONRISKDETAILS@ Discharging to Facility/ Agency Name: [facility] Address: [address] [place] [address] Fax: Dialysis Facility (if applicable) Name: Address: Dialysis Schedule: Phone: Fax: Medication Aid/Workforce Analyst signature: {E-signature:17350} PHYSICIAN SECTION Prognosis: excellent Condition at Discharge: [...] H&P PHYSICIAN SIGNATURE: documented in this encounter [facility] 01-25-2023 Note [facility] PCU [address] [facility] [address] Dept: [phone] Loc: [phone] Orthopedic Progress Note Name: Claribel Stoll Date:01/25/2023 Attending:Sammie Singh MD Subjective Pleasantly confused this morning. Denies pain besides R hip. Objective Vitals: Vitals: 01/24/23 0402 01/24/23 0605 01/24/23 1115 01/24/232115 BP: 106/58 101/63 121/59 101/55 BP Location: Pulse: 73 71 74 77 Resp: 14 18 Temp: 36.4 ?C (97.5 ?F) TempSrc: Temporal SpO2: 99% 98% 98% 94% Physical Exam: General: NAD RLE Skin over hip: clean/dry/intact SILT: intact Saphenous/Superficial Peroneal/Deep Peroneal/Tibial/Sural distributions Motor: +Dorsiflexion/Plantarflexion/Great toe extension Pulses: Palpable DP LABS: Recent Labs 01/24/2321601/25/238 WBC 14.6* 10.9* HGB 11.3* 10.4* HCT 35.6 32.9* PLT 292 250 Recent Labs 01/24/23 0217 01/25/238 NA 137 135 K 4.3 3.8 CL [...] follow surgery Ever Hollingsworth M.D. Orthopaedic Surgery [facility] 01-25-2023 Note Patient: Claribel jay Procedure Information Date/Time: 01/25/23729 Procedure: HEMIARTHROPLASTY HIP PARTIAL POSTERIOR APPROACH (Right: Hip) Location: [address] Operating Room Surgeons: Randee Oliver MD Relevant [...] Electronically Signed On 01-24-2023 2:07:24 EST by Megha Burden Signed by: Megha Burden MD on 01/24/2023 2:07 AM [facility] 01-25-2023 Note Formatting of this n ote might be different from the original. [facility] MA[facility] OR [address] [facility] [address] Dept: [phone] Loc: [phone] Operative Report Patient Name: Claribel Stoll Date of : 1955 Date of Surgery: 01/25/23 Pre-operative diagnosis: Right displaced femoral neck fracture Post-operative diagnosis: Same Procedure(s): Cemented hemiarthroplasty of right hip (CPT 24103) Surgeon: Randee Oliver M.D. Channel Lip Wetter(s): Jericho Maradiaga M.D. Anesthesia: General EBL: 50 [...] as well as medical complications such as AK, stroke, PE, DVT, and even . Patient [...] 24hrs Posterior hip precautions x 6 wks [facility] 01-25-2023 Note Formatting of this n ote might be different from the original. [facility] OR [address] [facility] [address] Dept: [phone] Loc: [phone] Operative Report Patient Name: Claribel Stoll Date of : 1955 Date of Surgery: 01/25/23 Pre-operative diagnosis: Right displaced femoral neck fracture Post-operative diagnosis: Same Procedure(s): Cemented hemiarthroplasty of right hip (CPT 36516) Surgeon: Randee Oliver M.D. Channel Lip Wetter(s): Jericho Maradiaga M.D. Anesthesia: General EBL: 50 [...] as well as medical complications such as AK, stroke, PE, DVT, and even . Patient [...] 24hrs Posterior hip precautions x 6 wks [facility] 01-24-2023 Plan of care note Problem: Knowledge Deficit Goal: Patient/family/caregiver demonstrates understanding of disease process, treatment plan, medications, and discharge instructions Outcome: Progressing Problem: Potential for Compromised Skin Integrity Goal: Skin Integrity is Maintained or Improved Outcome: Progressing Goal: Nutritional status is improving Outcome: Progressing [facility] 01-24-2023 Emergency department Note Per previous RN , report called. Pt to [facility]. Pt left approx 1040am with [employer] transport. Altagracia Thapa RN 01/24/23 1045 [facility] 01-24-2023 Emergency department Note Per previous RN , report called. Pt to [facility]. Pt left approx 1040am with [employer] transport. Altagracia Thapa RN 01/24/23 1045 RN introduced her self. Pt on the monitor, call light in reach. Pt declined needs at this time Altagracia Thapa RN 01/24/23 1013 [facility] ETA 2-3 hours Karen Chavis RN 01/24/23 0691 [facility] ED EMERGENCY DEPARTMENT ENCOUNTER Pt Name: Claribel Stoll Birthdate 1955 Date of evaluation: 01/24/2023 Provider: Megha Burden MD CHIEF COMPLAINT Chief Complaint Patient [...] presents to the emergency department patient from intermediate. Apparently she fell yesterday and x-ray showed [...] test gait. We are confirming with the intermediate if she has had right-sided facial drooping in the past. Reviewing paperwork from intermediate she has a history of facial weakness [...] In compliance with this authorization, please visit www.fda.gov/media/689816/download or www.fda.gov/media/173421/download to access the applicable information sheets. TROPONIN [...] had surgery on her left hip at [facility]. Will place consultation to orthopedics [facility]. [...] fracture of right hip, initial encounter ([facility]) Hypoxia Diagnostics considered but not indicated based on history, physical, testing: CT of the neck however not clinically indicated. External records reviewed: No significant records in [facility]. Care Everywhere does reveal closed left hip fracture. This was in 01/27/2022 Reviewed intermediate records she has a history of dementia [...] fracture of right hip, initial encounter ([facility]) 2. Hypoxia DISPOSITION/PLAN DISPOSITION Admit 01/24/2023 03:12:34 AM PATIENT REFERRED TO: No follow-up provider specified. DISCHARGE MEDICATIONS: New Prescriptions No medications on file @[facility]([id number]:LAST:1)@ (Comment: Please notethis report has been produced using speech recognition software and may contain errors related to that system including errors in grammar, punctuation, and spelling, as well as words and phrases that may be inappropriate.If there is any questions or concerns please feel free to contact the dictating provider for clarification). Megha Burden MD (electronically signed) Attending Emergency Physician Megha Burden MD 01/24/23 0333 Megha Burden MD 01/24/23 0346 Bed: 33 Expected date: 01/24/23 Expected time: Means of arrival: Comments: [facility] Karen Chavis RN 01/24/23 0048 documented in this encounter [facility] 01-24-2023 Emergency department Note RN introduced her self. Pt on the monitor, call light in reach. Pt declined needs at this time Altagracia Thapa RN 01/24/23 1013 [facility] 01-24-2023 Emergency department Note Physicians ETA 2-3 hours Karen Chavis RN 01/24/23 0635 [facility] 01-24-2023 Note Attending History an d Physical [...] no m/r/g Abdomen: soft, nondistended, nontender, BS+ GLUER AND WEDGER: Awake and alert, pleasantly confused Ext: pulse [...] Other Kizzy Singh (more content not included)... [facility] 01-24-2023 Consult note Associated Order (s): IP CONSULT TO ORTHOPAEDIC SURGERY Ortho Consult Patient: Claribel Stoll Date of : 1955 Acct: [id number] PCP: Morris Carr Date of Admission: 01/24/2023 Date of Service: Pt seen/examined on 01/24/2023 Chief Complaint: Right hip pain History Of Present Illness: 67 y.o. female with PMHx of dementia who presents with right hip pain after a fall from standing. She was sent to the emergency department from her intermediate in [place] she is pleasantly demented on exam and able to answer some but not all questions. Reports right hip pain but otherwise denies pain in extremities. PMH of dementia. Lives in intermediate. Orthopaedic surgery history: -Prior left hip hemiarthroplasty done at [facility] 11/2021 -Known to Dr. Redman for [...] OR for R hip hemiarthroplasty -Transfer to [facility] for surgery -NPO, hold anticoags -Clear per [...] as well as medical complications such as AK, stroke, PE, DVT, and even . Pt was given opportunity to ask questions and consider her options. She ultimately elected to proceed with surgery. No guarantees were given or implied. Randee Oliver MD [facility] Phone: 01-24-2023 Consult note Associated Order (s): IP CONSULT TO ORTHOPAEDIC SURGERY Ortho Consult Patient: Claribel Stoll Date of : 1955 Acct: [id number] PCP: Morris Carr Date of Admission: 01/24/2023 Date of Service: Pt seen/examined on 01/24/2023 Chief Complaint: Right hip pain History Of Present Illness: 67 y.o. female with PMHx of dementia who presents with right hip pain after a fall from standing. She was sent to the emergency department from her intermediate in [place] she is pleasantly demented on exam and able to answer some but not all questions. Reports right hip pain but otherwise denies pain in extremities. PMH of dementia. Lives in intermediate. Orthopaedic surgery history: -Prior left hip hemiarthroplasty done at [facility] 11/2021 -Known to Dr. Redman for [...] Take 20 mg by mouth daily. Historical ProviderMD D-Mannose (Azo D-Mannose) 500 MG capsule Take 500 mg by mouth in the morning and 500 mg in the evening. Historical ProviderMD haloperidol (Haldol) 1 MG tablet Take 1 mg by mouth 3 times daily. Historical ProviderMD levothyroxine (Synthroid, Levoxyl) 50 MCG tablet Take 50 mcg by mouth every morning (before breakfast). Historical ProviderMD levothyroxine (Tirosint) 100 MCG capsule Take by mouth every morning (before breakfast). Historical ProviderMD Lidocaine ( Lidocaine Patch) 4 % patch Place 1 patch on the skin daily. Apply to lower back Historical ProviderMD LORazepam (Ativan) 0.5 MG tablet Take by mouth. Historical ProviderMD LORazepam (Ativan) 1 MG tablet Take 1 mg by mouth 2 times daily at 0800 and 1400. Historical ProviderMD melatonin 5 MG tablet Take 5 mg by mouth Nightly as needed. Historical Provider, polycarbophil (Fibercon) 625 MG tablet Take 625 mg by mouth daily. Historical Provider, pregabalin (Lyrica) 100 MG capsule Take 100 mg by mouth 3 times daily. Historical ProviderMD Current Hospital Medications: Current Facility-Administered Medications: oxyCODONE [...] OR for R hip hemiarthroplasty -Transfer to [facility] for surgery -NPO, hold anticoags -Clear per [...] as well as medical complications such as AK, stroke, PE, DVT, and even . Pt was given opportunity to ask questions and consider her options. She ultimately elected to proceed with surgery. No guarantees were given or implied. Randee Oliver MD documented in this encounter [facility] 01-24-2023 History and physical note Images from [...] no m/r/g Abdomen: soft, nondistended, nontender, BS+ GLUER AND WEDGER: Awake and alert, pleasantly confused Ext: pulse [...] Kizzy Garsia MD Division of Hospitalist Medicine [facility] [employer] Work Phone: 01-24-2023 History and physical note [...] no m/r/g Abdomen: soft, nondistended, nontender, BS+ GLUER AND WEDGER: Awake and alert, pleasantly confused Ext: pulse [...] Kizzy Garsia MD Division of Hospitalist Medicine [facility] documented in this encounter [facility] 01-24-2023 Emergency department Note Bed: 33 Expected date: 01/24/23 Expected time: Means of arrival: Comments: [facility] Karen Chavis, RN 01/24/23 0048 [facility] 01-24-2023 Physician Emergency department Note [facility] ED EMERGENCY DEPARTMENT ENCOUNTER Pt Name: Claribel Stoll Birthdate 1955 Date of evaluation: 01/24/2023 Provider: Megha Burden MD CHIEF COMPLAINT Chief Complaint Patient [...] presents to the emergency department patient from intermediate. Apparently she fell yesterday and x-ray showed [...] test gait. We are confirming with the intermediate if she has had right-sided facial drooping in the past. Reviewing paperwork from intermediate she has a history of facial weakness [...] In compliance with this authorization, please visit www.fda.gov/media/507875/download or www.fda.gov/media/915348/download to access the applicable information sheets. TROPONIN I - Normal TROPONIN I <0.012 Narrative: Patients with high levels of Biotin oral intake (ie >5 mg/day) may have falsely decreased Troponin levels. All other labs were within normal range or not returned as of thisdictation. EMERGENCYDEPARTMENT COURSE and DIFFERENTIAL DIAGNOSIS/MDM: Vitals: Vitals: 01/24/23 0053 01/24/23 0211 01/24/236 01/24/23217 BP: 97/55 110/50 BP Location: Left arm [...] and DIFFERENTIAL DIAGNOSIS/MDM: Vitals: Vitals: 01/24/23 0053 01/24/23 02101/24/2321501/24/238 BP: 97/55 110/50 BP Location: Left arm [...] had surgery on her left hip at [facility]. Will place consultation to orthopedics [facility]. Chest x-ray per my interpretation no signs of pneumonia. CT of the head no acute process. My suspicion for PE is low I do not believe this is active ACS. This time no signs of pneumonia based on chest x-ray. She has no fever. Diagnoses as of 01/24/23 0346 Closed fracture of right hip, initial encounter ([facility]) Hypoxia Diagnostics considered but not indicated based on history, physical, testing: CT of the neck however not clinically indicated. External records reviewed: No significant records in [facility]. Care Everywhere does reveal closed left hip fracture. This was in 01/27/2022 Reviewed intermediate records she has a history of dementia [...] fracture of right hip, initial encounter ([facility]) 2. Hypoxia DISPOSITION/PLAN DISPOSITION Admit 01/24/2023 03:12:34 AM PATIENT REFERRED TO: No follow-up provider specified. DISCHARGE MEDICATIONS: New Prescriptions No medications on file @[facility]([id number]:LAST:1)@ (Comment: Please notethis report has been produced using speech recognition software and may contain errors related to that system including errors in grammar, punctuation, and spelling, as well as words and phrases that may be inappropriate.If there is any questions or concerns please feel free to contact the dictating provider for clarification). Megha Burden MD (electronically signed) Attending Emergency Physician Megha Burden MD 01/24/23332 Megha Burden MD 01/24/23345 [facility] 01-27-2022 Note HNO ID: [id number] Author: Yasmany Roman MD Service: ? Author [...] has been working on ambulation at the intermediate. REVIEW OF SYSTEMS: MUSCULOSKELETAL: Negative for joint [...] Take 500 mg by mouth twice daily. qwficv-wdumtyvr-ouetini (CREON 6) 6,000-19,000 -30,000 unit delayed release [...] of Present illness Narrative 01/27/2022 RE: Claribel Stoll DATE OF : 1955 Vitals: Resp 18 Ht 5' 5" (1.65m) Wt 150 lb (68.0kg) BMI 24.96 kg/(m^2). FOLLOW UP VISIT: Post insertion hemiarthroplasty left hip HPI: She is not having significant discomfort in her left hip. She has been working on ambulation at the intermediate. REVIEW OF SYSTEMS: MUSCULOSKELETAL: Negative for joint [...] Take 500 mg by mouth twice daily. djdger-defxaffs-nwfmnqz (CREON 6) 6,000-19,000 -30,000 unit delayed release [...] Yasmany Roman MD documented in this encounter [facility] 12-24-2021 Note HNO ID: [id number] Author: Elisabeth Rivers RN Service: Care Management Author Type: Registered Nurse Type: Care Mgt Progress Note Filed: 12/24/2021 3:36 PM Note Text: CARE MANAGEMENT PROGRESS NOTE SERVICE DATE: 12/24/2021 SERVICE TIME: 1532 LOS: 11 days Per [facility] precert still pending with [facility]. Received phone call from correctional casework specialist Sasha with [facility]. Per Sasha Valor is primary insurance and will not need precert to return to [facility]. Received confirmation from [facility] patient can return today. I left voice messages with her family Garry and Missy she will return to [facility] today at 1930. Copy of the [employer] insurance card faxed to me and I sent it to the admitting department. SIGNATURE: Elisabeth Rivers RN PATIENT NAME: Claribel Stoll DATE: December 24, 2021 TIME: 3:31 PM PAGER/CONTACT #: [phone] [facility] 12-24-2021 Note HNO ID: [id number] Author: Kevyn Hobbs MD Service: Orthopaedic Surgery [...] SNF, dc when precert completed, pending at [facility] care management assistance INTERVAL HPI: No acute [...] [facility] 12-23-2021 Note HNO ID: [id number] Author: Elisabeth Rivers RN Service: Care Management Author Type: Registered Nurse Type: Care Mgt Progress Note Filed: 12/23/2021 3:00 PM Note Text: CARE MANAGEMENT PROGRESS NOTE SERVICE DATE: 12/23/2021 SERVICE TIME: 1458 LOS: 10 days Per message from [facility] they are still waiting on precert for admission. Phone call from Jesus with the [facility] department and they are reaching out to [place] regarding authorization. SIGNATURE: Elisabeth Rivers RN PATIENT NAME: Claribel Commings DATE: December 23, 2021 TIME: 2:58 PM PAGER/CONTACT #: [phone] [facility] 12-23-2021 Note HNO ID: [id number] Author: Elisabeth Rivers RN Service: Care Management Author Type: Registered Nurse Type: Care Mgt Progress Note Filed: 12/23/2021 9:53 AM Note Text: CARE MANAGEMENT PROGRESS NOTE SERVICE DATE: 12/23/2021 SERVICE TIME: 0953 LOS: 10 days Updated progress notes and therapy notes sent to [facility] SIGNATURE: Elisabeth Rivers RN PATIENT NAME: Claribel Commings DATE: December 23, 2021 TIME: 9:52 AM PAGER/CONTACT #: [phone] [facility] 12-23-2021 Note HNO ID: [id number] Author: Fatimah Simon MD Service: Orthopaedic Surgery [...] SNF, dc when precert completed, pending at [facility], appreciate care management assistance INTERVAL HPI: No [...] Rate, Westergren 36 05/12/2018 CRP 6.85 05/12/2018 Fatimah Simon MD Orthopaedic Surgery 12/23/2021 6:01 AM [facility] 12-22-2021 Note HNO ID: [id number] Author: Gagan Villasenor MD Service: Orthopaedic Surgery [...] Sed RateArcenio 36 05/12/2018 CRP 6.85 05/12/2018 Gagan Villasenor MD Orthopaedic Surgery 12/22/2021 6:01 AM [facility] 12-21-2021 Note HNO ID: [id number] Author: Shira Kimbrough RN Service: Care Management Author Type: Registered Nurse Type: Care Mgt Progress Note Filed: 12/21/2021 2:57 PM Note Text: CARE MANAGEMENT PROGRESS NOTE SERVICE DATE: 12/21/2021 SERVICE TIME: 2:44 PM LOS: 8 days Chart reviewed. Precert appears to still be pending. This CM has sent multiple messages to [facility] inquiring about pending precert, but have not gotten a response. Since patient is LTC there, unsure why she would need to remain hospitalized while a skilled precert is pending. Asked [facility] to assist by investigating, but [facility] is closed today and the only info she could find in the portal is patient's LTC auth valid 05/24/21-05/24/22. SIGNATURE: Shira Kimbrough RN PATIENT NAME: Claribel Stoll DATE: December 21, 2021 TIME: 2:44 PM PAGER/CONTACT #: [phone] [facility] 12-21-2021 Note HNO ID: [id number] Author: Anthony Bullard MD Service: Orthopaedic Surgery Author Type: [...] Peterergren 36 05/12/2018 CRP 6.85 05/12/2018 Imaging: No new orthopedic imaging Isaias Bullard MD Orthopaedic Surgery 12/21/2021 [facility] 12-21-2021 Note HNO ID: [id number] Author: Alex Royal RN Service: Nursing Author Type: Registered Nurse Type: Nursing Progress Note Filed: 12/21/2021 5:16 AM Note Text: Pt refuses 0400 vital signs and blood draw. Dr. Villasenor notified. I will continue to monitor. [facility] 12-20-2021 Note HNO ID: [id number] Author: Elisabeth Rivers RN Service: Care Management Author Type: Registered Nurse Type: Care Mgt Progress Note Filed: 12/20/2021 3:34 PM Note Text: CARE MANAGEMENT PROGRESS NOTE SERVICE DATE: 12/20/2021 SERVICE TIME: 1532 LOS: 7 days Received phone calls from both brother garry and sister Missy. Updated them waiting precert for return to [facility]. Confirmed with Garry plan is to return to [facility]. SIGNATURE: Elisabeth Rivers RN PATIENT NAME: Claribel Commings DATE: December 20, 2021 TIME: 3:32 PM PAGER/CONTACT #: [phone] [facility] 12-20-2021 Note HNO ID: [id number] Author: Elisabeth Rivers RN Service: Care Management Author Type: Registered Nurse Type: Care Mgt Progress Note Filed: 12/20/2021 2:53 PM Note Text: CARE MANAGEMENT PROGRESS NOTE SERVICE DATE: 12/20/2021 SERVICE TIME: 1451 LOS: 7 days Per [facility] precert still pending. Unable to reach brothosvaldo Duval regarding discharge plans. Left voice message for her sister Missy at [phone]. Patient is resident of [facility]. SIGNATURE: Elisabeth Rivers RN PATIENT NAME: Claribel Commings DATE: December 20, 2021 TIME: 2:51 PM PAGER/CONTACT #: [phone] [facility] 12-20-2021 Note HNO ID: [id number] Author: Fatimah Simon MD Service: Orthopaedic Surgery [...] 12/14/2021 INR 1.0 12/14/2021 SED RATE/CRP: Sed RateChipren 36 05/12/2018 CRP 6.85 05/12/2018 Imaging: No new orthopedic imaging Fatimah Simon MD Orthopaedic Surgery 12/20/2021 5:31 AM [facility] 12-19-2021 Note HNO ID: [id number] Author: Elisabeth Rivers RN Service: Care Management Author Type: Registered Nurse Type: Care Mgt Progress Note Filed: 12/19/2021 4:15 PM Note Text: CARE MANAGEMENT PROGRESS NOTE SERVICE DATE: 12/19/2021 SERVICE TIME: 1615 LOS: 6 days Precert still pending for [facility] SIGNATURE: Elisabeth Rivers RN PATIENT NAME: Claribel Stoll DATE: December 19, 2021 TIME: 4:15 PM PAGER/CONTACT #: [phone] [facility] 12-19-2021 Note HNO ID: [id number] Author: Reinier Cohen DO Service: Hospital Medicine [...] independent professional judgment. Thank you, Jen Osorio, [facility] team [phone] [facility] 12-19-2021 Note HNO ID: [id number] Author: Fatimah Simon MD Service: Orthopaedic Surgery [...] [facility] 12-18-[facility]21 Note HNO ID: [id number] Author: Elisabeth Rivers RN Service: Care Management Author Type: Registered Nurse Type: Care Mgt Progress Note Filed: 12/18/2021 4:01 PM Note Text: CARE MANAGEMENT PROGRESS NOTE SERVICE DATE: 12/18/2021 SERVICE TIME: 1601 LOS: 5 days Precert pending for [facility]. SIGNATURE: Elisabeth Rivers RN PATIENT NAME: Claribel Commings DATE: December 18, 2021 TIME: 4:01 PM PAGER/CONTACT #: [phone] [facility] 12-18-2021 Note HNO ID: [id number] Author: Fatimah Simon MD Service: Orthopaedic Surgery [...] Sed RateArcenio 36 05/12/2018 CRP 6.85 05/12/2018 Imaging: No new orthopedic imaging Fatimah Simon MD Orthopaedic Surgery 12/18/2021 5:31 AM [facility] 12-17-2021 Note HNO ID: [id number] Author: Corry Lewis RN Service: Nursing Author Type: Registered Nurse Type: Progress Notes Filed: 12/17/2021 4:37 PM Note Text: Ortho residents notified patient pulled off left hip silver mepalex dressing and one steri strip, RN replaced with large aquacel, no signs of dehiscence. [facility] 12-17-2021 Note HNO ID: [id number] Author: Elisabeth Rivers RN Service: Care Management Author Type: Registered Nurse Type: Care Mgt Progress Note Filed: 12/17/2021 10:20 AM Note Text: CARE MANAGEMENT PROGRESS NOTE SERVICE DATE: 12/17/2021 SERVICE TIME: 1015 LOS: 4 days Chart reviewed. Patient is from [facility]. Return referral sent. Left voice message for brother Garry to confirm discharge plans. Patient unable to answer questions due to mental status. SIGNATURE: Elisabeth Rivers RN PATIENT NAME: Claribel Stoll DATE: December 17, 2021 TIME: 10:15 AM PAGER/CONTACT #: [phone] [facility] 12-17-2021 Note HNO ID: [id number] Author: Fatimah Simon MD Service: Orthopaedic Surgery [...] [facility] 12-16-2021 Note HNO ID: [id number] Author: Fatimah Simon MD Service: Orthopaedic Surgery [...] foot. Recent Labs 12/16/21 0237 12/15/21 0305 12/14/21 0226 12/13/21 1919 CREAT 0.80 0.80 0.66 0.75 BUN 11 [...] [facility] 12-15-2021 Note HNO ID: [id number] Author: Taniya Jenkins RN Service: Nursing Author Type: Registered Nurse Type: Progress Notes Filed: 12/15/2021 11:25 AM Note Text: Summary: RESTRAINT NON-VIOLENT Nursing Progress: Topic: RESTRAINT NON-VIOLENT PATIENT NAME: Claribel Stoll PATIENT LOCATION: [place] [id number] The patient demonstrates Attempting to Remove Medical [...] [facility] 12-15-2021 Note HNO ID: [id number] Author: Reinier Cohen DO Service: Hospital Medicine Author Type: Physician Type: Progress Notes Filed: 12/15/2021 1:17 PM Note Text: DEPARTMENT OF HOSPITAL MEDICINE PROGRESS NOTE SERVICE DATE: 12/15/2021 SERVICE TIME: 12:55 PM Hospital Medicine/Primary Attending: Reinier Cohen DO NIGHT AND WEEKEND COVERAGE: After 7pm please page [phone] SUBJECTIVE: Notified by nursing staff patient had [...] reviewed for today's visit: CBC: Recent Labs 12/15/21304 WBC 13.09* RBC 3.44* HB 10.1* HCT 32.9* PLT 308 MCV 95.6 MCH 29.4 MPV 9.9 Coags: No results for input(s): PT, INR, APTT in the last 24 hours. BMP: Recent Labs 12/15/21 030 NA 135* K 4.8 CHLOR 100 CO2 [...] POA: Yes This note was generated using [employer] voice dictation. All reasonable efforts were made to correct dictation errors. SIGNATURE: Reinier Cohen DO PATIENT NAME: Claribel Stoll DATE: December 15, 2021 TIME: 12:55 PM PAGER/CONTACT #: My Pager [facility] 12-15-2021 Note HNO ID: [id number] Author: Fatimah Simon MD Service: Orthopaedic Surgery [...] Westergren 36 05/12/2018 CRP 6.85 05/12/2018 Imaging: Post operative xray demonstrating interval placement of orthopedic hardware in good position Fatimah Simon MD Orthopaedic Surgery 12/15/2021 5:11 AM [facility] 12-14-2021 Note HNO ID: [id number] Author: Naveen Cameron APRN.CRNA Service: Anesthesiology Author Type: Nurse Resolution Manager Type: Anesthesia Procedure Notes Filed: 12/14/2021 1:37 PM Note Text: ANESTHESIOLOGY PROCEDURE NOTE Airway General Information Procedure Start Time/Medication Administration: 12/14/2021 1:27 PM Patient location during procedure: OR Timeout Performed Pre-procedure: timeout performed Consent Obtained: Yes Patient identity confirmed: arm band, patient and family Staffing SLICE PLUG CUTTER OPERATOR: Naveen Cameron APRN.SLICE PLUG CUTTER OPERATOR Indications and Patient Condition Indications for airway management: anesthesia Preoxygenated: yes anesthesia circuit Method: sleep Cricoid Pressure: No Manual In-Line Stabilization: No Difficult Mask: No Final Airway Details Final airway type: endotracheal airway Final Endotracheal Airway: ETT Cuffed: yes Successful intubation technique: video laryngoscopy Devices used: [employer]) Endotracheal tube insertion site: oral Blade: Kimberlyn [...] December 14, 2021 TIME: 1:37 PM CSN: [id number] [facility] 12-14-2021 Note HNO ID: [id number] Author: Naveen Cameron APRN.SLICE PLUG CUTTER OPERATOR Service: Anesthesiology Author Type: Nurse Resolution Manager Type: Anesthesia Procedure Notes Filed: 12/14/2021 12:59 PM Note Text: ANESTHESIOLOGY PROCEDURE NOTE PIV General Information Procedure Start Time/Medication Administration: 12/14/2021 12:50 PM Patient Location: OR Staffing SLICE PLUG CUTTER OPERATOR: Naveen Cameron APRN.SLICE PLUG CUTTER OPERATOR Preparation Sterility Preparation: hand hygiene performed prior to procedure, surgical cap used, mask used, skin prep agent completely dried prior to procedure Sterility Technique Not Completely Performed Due to Extreme Emergency: No Site Prep: Chloraprep Procedure Details Indication: need for IV access Needle Size/Type: 20 gauge angiocath Orientation: Right Location: Wrist Imaging Guidance Used: No SIGNATURE: Naveen Cameron APRN.CRNA [facility] DATE: December 14, 2021 TIME: 12:58 PM CSN: [id number] [facility] 12-14-2021 Note HNO ID: [id number] Author: Naveen Cameron APRN.CRNA Service: Anesthesiology Author Type: Nurse Resolution Manager Type: Anesthesia Procedure Notes Filed: 12/14/2021 12:58 PM Note Text: ANESTHESIOLOGY PROCEDURE NOTE Airway General Information Procedure Start Time/Medication Administration: 12/14/2021 12:36 PM Patient location during procedure: OR Timeout Performed Pre-procedure: timeout performed Consent Obtained: Yes Patient identity confirmed: arm band, family and patient 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 -UA showed evidence of infection -Urine culture showed Escherichia coli -Started on empiric Vanc/zosyn in ED -Switch to Keflex, completed her course PLAN: -Today the last dose of Keflex. documented as of this encounter (statuses as of 01/27/2022) [facility] noteNo assessment information availableWWayne [facility] Work Phone: Evaluation note* Diagnosis Closed subcapital fracture of left femur with routine healing, subsequent encounter- Primary documented in this encounter [facility] note* Diagnosis Closed fracture of right hip, initial encounter (HCC)- Primary Closed fracture of right hip, initial encounter ([facility]) Hypoxia Hypoxemia Left arm pain Pain in soft tissues of limb Anxiety Anxiety state, unspecified Dementia, unspecified dementia severity, unspecified dementia type, unspecified whether behavioral, psychotic, or mood disturbance or anxiety (HCC) Dementia, unspecified dementia severity, unspecified dementia type, unspecified whether behavioral, psychotic, or mood disturbance or anxiety (HCC) documented in this encounter [facility] for referral (narrative)* Diagnostic Procedure Only (Routine) - Pending Review Specialty Diagnoses / Procedures Referred By Contac t Referred To Contact XR IMAGING Diagnoses Closed subcapital fracture of left femur with routine healing, subsequent encounter Procedures XR HIP 2V AP/LAT LEFT (AK,FL,ME) RADEX HIP UNILATERAL WITH PELVIS 2-3 VIEWS Yasmany Roman MD [address] [address] Xr Imaging Referral ID Status Reason Start Date Expiration Date Visits Requested Visits Authorized [id number] Pending Review Auto-Generat ed Referral 01/27/2022 02/26/2023 1 1 [facility] Summary Purpose Family History No Family History Records FoundNo Family History Records FoundNo Family History Records FoundNo Family History Records FoundNo Family History Records Found Advance Directives No Advanced Directives Records FoundDocuments on File Type Date Recorded 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 Advance Directive(s) 12/25/2021 2:38 PM [...] Complaint and Reason for Visit Chief Complaint PENITENTIARY LABWORK PENITENTIARY PATIENT Chief Complaint PENITENTIARY LABWORK PENITENTIARY PATIENT LABWORK Chief Complaint PENITENTIARY LABWORK PENITENTIARY PATIENT LABWORK PENITENTIARY LAB WORK Chief Complaint PENITENTIARY LABWORK LABWORK Chief Complaint PENITENTIARY LABWORK PENITENTIARY LAB WORK Chief Complaint PENITENTIARY LABWORK PENITENTIARY LAB WORK LABWORK Chief Complaint PENITENTIARY LABWORK PENITENTIARY LAB WORK LABWORK LABWORK LABWORK Chief Complaint PENITENTIARY LABWORK PENITENTIARY LAB WORK LABWORK LABWORK LABWORK PENITENTIARY LAB WORK LABWORK Chief Complaint LABWORK LABWORK LABWORK PENITENTIARY LAB WORK LABWORK PENITENTIARY LAB WORK LABWORK Chief Complaint LABWORK LABWORK LABWORK PENITENTIARY LAB WORK LABWORK PENITENTIARY LAB WORK LABWORK PENITENTIARY LAB WORK Chief Complaint LABWORK PENITENTIARY LAB WORK LABWORK PENITENTIARY LAB WORK LABWORK PENITENTIARY LAB WORK LABWORK Additional Source Comments INFORMATION SOURCE (unrecogn ized section and content) DATE CREATED AUTHOR 04/14/2018 [employer] DATE CREATED AUTHOR AUTHOR'S ORGANIZ ATION 07/03/2018 [facility] DATE CREATED AUTHOR AUTHOR'S ORGANIZ ATION 04/24/2022 [facility] DATE CREATED AUTHOR AUTHOR'S ORGANIZ ATION 01/28/2023 [employer] [facility] DATE CREATED AUTHOR AUTHOR'S ORGANIZ ATION 10/04/2024 [facility] Goals (unrecognized section and content) Goals may [...] or prosecute any alcohol or drug abuse patient.[facility] Reason for Visit (unrecogniz ed section and content) Reason Comments Post Op Reason Comments Hip Pain Pt [facility] a hip fracture. Pt fell yesterday morning and had an xray done that showed a r hip fracture. Specialty Diagnoses / Procedures Referred By Contac t Referred To Contact Diagnoses Closed fracture of right hip, initial encounter ([facility]) Procedures S72.001A Kizzy Garsia MD [address] [place] [address] [facility] [address] [place] [address] Referral ID Status Reason Start Date Expiration Date Visits Re quested Visits Authorized [id number] 1 1 Care Teams (unrecognized sec tion and content) Team Status: Inactive Member Role Status Dates Morris BEAL Attending Provider Active Team Status: Inactive Member Role Status Dates Morris BEAL Attending Provider, Referring Provid er Active Team Status: Active Member Role Status Dates Morris BEAL Attending Provider Active [employer] Sales Representative Relationship Specialty Start Date End Date Kelly Lang RN Specialty [facility] 12/17/21 [employer] Sales Representative Relationship Specialty Start Date End Date Morris Carr [address] [place] [address] [address] [place] [address] PCP - General Family Medicine 01/24/23 Scheduled [...] Auto Held - Provider: Automatic Transfer Provider)1112 ([facility] Unhold - Provider: Automatic Transfer Provider) 0829 [...] (Given - Provider: Carlos Kaur LPN) 0734 ([facility] Hold - Provider: Automatic Transfer Provider - Reason: Patient not available)0900 (Dose Auto Held - Provider: Automatic Transfer Provider)1112 ([facility] Unhold - Provider: Automatic Transfer Provider)1328 (Given - Provider: Gertrude Camargo RN)1937 (Given - Provider: Carlos Kaur LPN) 0829 (Given - Provider: Yumi Feng RN)1409 (Given - Provider: Yumi Feng RN) Influenza Vac A&B SA Adj quadrivalent (Fluad) vaccine 0.5 mL 0.5 mL, IntraMUSCular, Once, On Thu01/25/23 at 0900, For 1 dose 0734 ([facility] Hold - Provider: Automatic Transfer Provider - Reason: Patient not available)0900 (Dose Auto Held - Provider: Automatic Transfer Provider)1112 ([facility] Unhold - Provider: Automatic Transfer Provider) levothyroxine [...] Provider: Carlos Kaur LPN - Reason: NPO)0734 (APR Hold - Provider: Automatic Transfer Provider - Reason: Patient not available)1112 (APR Unhold - Provider: Automatic Transfer Provider) 0616 [...] Camargo RN) 0829 (Given - Provider: Yumi Feng RN) morphine injection 2 mg (COMPLETED) 2 [...] Provider: Gertrude Camargo RN)2112 (Given - Provider: Calros Kaur LPN) 0734 (APR Hold - Provider: [...] dose 0351 (New Bag - Provider: Abimbola Argueta, FRANCOIS)0451 (Stopped - Provider: Abimbola Argueta RN) Continuous [...] (APR Unhold - Provider: Automatic Transfer Provider) acetaminophen [...] (APR Unhold - Provider: Automatic Transfer Provider) melatonin tablet 5 mg 5 mg, Oral, Nightly PRN, sleep, Starting on 01/24/23 at 0517 0734 (APR Hold - Provider: Automatic Transfer Provider - Reason: Patient not available)1112 (APR Unhold - Provider: Automatic Transfer Provider) naloxone (Narcan) injection 0.4 mg 0.4 mg, IntraVENous, PRN, opioid reversal, Starting on 01/26/23 at 0139, For oversedation/difficult to rouse, pinpoint pupils, RR < 8; notify primary team demolitionist if used 0147 (Given - Provid er: Lio Hanna RN) oxyCODONE (Roxicodone) immediate release tablet 5 mg 5 mg, Oral, Every 6 hours PRN, severe pain (7-10), Starting on 01/24/23 at 0600, For 2 doses 0734 (APR Hold - Provider: Automatic Transfer Provider - Reason: Patient not available)1112 ([facility] Unhold - Provider: Automatic Transfer Provider)1506 (Given - Provider: Gertrude Camargo RN) polyethylene glycol (PEG) 3350 (Miralax) packet 17 g 17 g, Oral, Daily PRN, constipation, Starting on 01/24/23 at 1109, 1st line for treatment of constipation - give scheduled if no bowel movement in past 24 hours. 0734 (APR Hold - Provider: Automatic Transfer Provider - Reason: Patient not available)1112 ([facility] Unhold - Provider: Automatic Transfer Provider) sodium [...] BE BASED ON THE PRIMARY CLINICAL RECORDS. [employer] [facility]. provides no warranty or guarantee of the accuracy or completeness of information in this document.
== END ==
LOC: OLS.ACW400 04:00
PROVIDERS: Referring Provider Family Medicine; Visit Provider Family Medicine
DX: M62.81 Muscle weakness (generalized) (principal)
CPT/HCPCS: 36415; 83036

== ENCOUNTER → 2024-12-26 | Outpatient (REF) | payer MEDICARE, MEDICAID, SELFPAY ==
--- OUTSIDE RECORDS SUMMARY | 2024-12-26 03:28 | XMS RPT_ITS | CCD ---
Author Organization [facility] ion [facility] Care Team Providers Care Certified Legal Secretary Specialist Name Role Phone PROVIDER, UNKNOWN Referring Unavailable [...] Unavailab Morris Morris Attending Unavailable Morris Roberson Referring Unavailable Morris Roberson Attending Unavailable Morris Roberson Attending Unavailable Morris Roberson Attending Unavailable Morris Roberson Attending Unavailable Morris Roberson Attending Unavailable Morris Roberson Attending Unavailable Morris Roberson Attending Unavailable Morris Roberson Attending Unavailable Morris Roberson Referring Unavailable Medications Current Medications Medication Drug Class(es) [...] Low Molecular Weight Heparin Start: 023 End: inject 0.4 mL by subcutaneous injection every [...] mouth three times daily. polyethylene glycol 3350 28203 mg powder for oral solution (4 sources) [...] Class(es) Dates Sig (Normalized) Sig (Original) amylase 72659 unt / lipase 6000 unt / protease 76808 unt delayed release oral capsule (1 source) [...] 05-22-2023 Parathyroid Hormone (Intact) 94.2 pg/mL 18.4-80.1 [facility] Serum or plasma cortisol kevan surement (mass/volume)Ordered By: Morris Carr on 05-22-2023 Cortisol [Mass/Vol] 17.00 ug/dL 3.44-22.45 [facility] Comment on above: Adult (AM) 5.27 - 22 .45 ug/dL Adult (PM) 3.44 - 16.76 ug/dLPlease note revised CORTISOL reference range effective 2019. Clostridioides difficile nuc leic acid assay by PCROrdered By: Morris Carr on 05-15-2023 C. difficile DNA JEANA+probe Ql (Unsp spec) [facility] Basophil percentageOrdered B y: Morris Carr on 05-14-2023 Bilirubin [Mass/Vol] 0.20 mg/dL 0.20-1.00 [facility] Comment on above: For patients on eltr ombopag therapy, use of Dimension May TBIL is not recommended. Chloride [Moles/Vol] 111 mmol/L 98-107 [facility] Glucose [Mass/Vol] 86 mg/dL 74-106 [facility] Hemoglobin (Bld) [Mass/Vol] 10.0 g/dL 12.0-15.0 [facility] Potassium [Moles/Vol] 3.7 mmol/L 3.5-5.1 [facility] Protein [Mass/Vol] 6.3 g/dL 6.4-8.2 [facility] Sodium [Moles/Vol] 143 mmol/L 136-145 [facility] WBC (Bld) [#/Vol] 10.8 10*3/uL 4.4-11.0 [facility] Determination of erythrocyte mean corpuscular volume (MCV)Ordered By: Morris Carr on 05-14-2023 MCV (RBC) [Entitic vol] 85.1 fL 81-99 [facility] Erythrocyte distribution wid th ratioOrdered By: Morris Carr on 05-14-2023 Erythrocyte distribution width (RBC) [Ratio] 16.7 % 11.6-14.6 [facility] Erythrocyte distribution wid th standard deviationOrdered By: Morris Carr on 05-14-2023 Erythrocyte distribution width (RBC) [Entitic vol] 52.1 fL 35.1-43.9 [facility] Hematocrit Auto (Bld) [Volum e fraction]Ordered By: Morris Carr on 05-14-2023 Hematocrit (Bld) [Volume fraction] 33.7 % 37-47 [facility] Laboratory - Chemistry and C hemistry - challengeOrdered By: Morris Carr on 05-14-2023 Albumin/Globulin [Mass ratio] 0.8 {ratio} 0.9-2.4 [facility] ALP [Catalytic activity/Vol] 83 U/L 45-117 [facility] ALT [Catalytic activity/Vol] 9 U/L 13-56 [facility] CO2 [Moles/Vol] 27.0 mmol/L 21.0-32.0 [facility] Globulin (S) [Mass/Vol] 3.6 g/dL 2.2-4.2 [facility] Urea nitrogen/Creatinine [Mass ratio] 20.6 mg/mg 10-20 [facility] Laboratory - Hematology and Cell countsOrdered By: Morris Carr on 05-14-2023 MCH (RBC) [Entitic mass] 25.3 pg 27.0-32.0 [facility] MCHC (RBC) [Mass/Vol] 29.7 g/dL 32-36 [facility] Platelet mean volume (Bld) [Entitic vol] 10.5 fL 6.2-12.0 [facility] Platelets (Bld) [#/Vol] 406 10*3/uL 150-450 [facility] No Panel InformationOrdered By: Morris Carr on 05-14-2023 Estimated GFR (MDRD) Amer 95 mL/min >60 [facility] Comment on above: GFR Calc Estimated GFR (MDRD) Non-Af Amer 78 mL/min >60 [facility] Comment on above: Non- GFR Calc RBC Auto (Bld) [#/Vol]Ordere d By: Morris Carr on 05-14-2023 RBC (Bld) [#/Vol] 3.96 10*6/uL 4.2-5.4 [facility] Serum or plasma calcium raul urement (mass/volume)Ordered By: Morrsi Carr on 05-14-2023 Calcium [Mass/Vol] 8.7 mg/dL 8.5-10.1 [facility] Serum or plasma cortisol kevan surement (mass/volume)Ordered By: Morris Carr on 05-14-2023 Cortisol [Mass/Vol] 20.50 ug/dL 3.44-22.45 [facility] Comment on above: Adult (AM) 5.27 - 22 .45 ug/dL Adult (PM) 3.44 - 16.76 ug/dLPlease note revised CORTISOL reference range effective 2019. Serum or plasma creatinine m easurement (mass/volume)Ordered By: Morris Carr on 05-14-2023 Creatinine [Mass/Vol] 0.78 mg/dL 0.55-1.02 [facility] Comment on above: The validity of the calculated GFR & GFRAA in patients over 70 years has not been determined. Clinical correlation is essential. Serum or plasma thyroid stim ulating hormone (TSH) measurement (units/volume)Ordered By: Morris Carr on 05-14-2023 TSH Qn 1.01 uIU/mL 0.358-3.74 [facility] Serum or plasma urea nitroge n measurement (mass/volume)Ordered By: Morris Carr on 05-14-2023 Urea nitrogen [Mass/Vol] 16 mg/dL 7-18 [facility] Thin prep Papanicolaou smear with manual screeningOrdered By: Morris Carr on 05-14-2023 Thin prep Papanicolaou smear with manual screening 2.7 g/dL 3.2-5.0 [facility] Thin prep Papanicolaou smear with manual screening 14 U/L 15-37 [facility] Thin prep Papanicolaou smear with manual screening 5 5-15 [facility] Basophil percentageOrdered B y: Morris Carr on 05-06-2023 Bilirubin [Mass/Vol] 0.40 mg/dL 0.20-1.00 [facility] Comment on above: For patients on eltr ombopag therapy, use of Dimension May TBIL is not recommended. Chloride [Moles/Vol] 108 mmol/L 98-107 [facility] Glucose [Mass/Vol] 88 mg/dL 74-106 [facility] Hemoglobin (Bld) [Mass/Vol] 10.8 g/dL 12.0-15.0 [facility] Potassium [Moles/Vol] 4.3 mmol/L 3.5-5.1 [facility] Protein [Mass/Vol] 6.9 g/dL 6.4-8.2 [facility] Sodium [Moles/Vol] 142 mmol/L 136-145 [facility] WBC (Bld) [#/Vol] 8.7 10*3/uL 4.4-11.0 [facility] Determination of erythrocyte mean corpuscular volume (MCV)Ordered By: Morris Carr on 05-06-2023 MCV (RBC) [Entitic vol] 85.3 fL 81-99 [facility] Erythrocyte distribution wid th ratioOrdered By: Morris Carr on 05-06-2023 Erythrocyte distribution width (RBC) [Ratio] 15.9 % 11.6-14.6 [facility] Erythrocyte distribution wid th standard deviationOrdered By: Morris Carr on 05-06-2023 Erythrocyte distribution width (RBC) [Entitic vol] 50.3 fL 35.1-43.9 [facility] Hematocrit Auto (Bld) [Volum e fraction]Ordered By: Morris Carr on 05-06-2023 Hematocrit (Bld) [Volume fraction] 36.7 % 37-47 [facility] Laboratory - Chemistry and C hemistry - challengeOrdered By: Morris Carr on 05-06-2023 Albumin/Globulin [Mass ratio] 0.7 {ratio} 0.9-2.4 [facility] ALP [Catalytic activity/Vol] 88 U/L 45-117 [facility] ALT [Catalytic activity/Vol] 11 U/L 13-56 [facility] CO2 [Moles/Vol] 30.0 mmol/L 21.0-32.0 [facility] Globulin (S) [Mass/Vol] 4.0 g/dL 2.2-4.2 [facility] Urea nitrogen/Creatinine [Mass ratio] 16.5 mg/mg 10-20 [facility] Laboratory - Hematology and Cell countsOrdered By: Morris Carr on 05-06-2023 MCH (RBC) [Entitic mass] 25.1 pg 27.0-32.0 [facility] MCHC (RBC) [Mass/Vol] 29.4 g/dL 32-36 [facility] Platelet mean volume (Bld) [Entitic vol] 10.1 fL 6.2-12.0 [facility] Platelets (Bld) [#/Vol] 464 10*3/uL 150-450 [facility] No Panel InformationOrdered By: Morris Carr on 05-06-2023 Estimated GFR (MDRD) Amer 102 mL/min >60 [facility] Comment on above: GFR Calc Estimated GFR (MDRD) Non-Af Amer 85 mL/min >60 [facility] Comment on above: Non- GFR Calc RBC Auto (Bld) [#/Vol]Ordere d By: Morris Carr on 05-06-2023 RBC (Bld) [#/Vol] 4.30 10*6/uL 4.2-5.4 [facility] Serum or plasma calcium raul urement (mass/volume)Ordered By: Morris Carr on 05-06-2023 Calcium [Mass/Vol] 9.0 mg/dL 8.5-10.1 [facility] Serum or plasma creatinine m easurement (mass/volume)Ordered By: Morris Carr on 05-06-2023 Creatinine [Mass/Vol] 0.73 mg/dL 0.55-1.02 [facility] Comment on above: The validity of the calculated GFR & GFRAA in patients over 70 years has not been determined. Clinical correlation is essential. Serum or plasma urea nitroge n measurement (mass/volume)Ordered By: Morris Carr on 05-06-2023 Urea nitrogen [Mass/Vol] 12 mg/dL 7-18 [facility] Thin prep Papanicolaou smear with manual screeningOrdered By: Morris Carr on 05-06-2023 Thin prep Papanicolaou smear with manual screening 2.9 g/dL 3.2-5.0 [facility] Thin prep Papanicolaou smear with manual screening 9 U/L 15- [facility] Thin prep Papanicolaou smear with manual screening 4 5-15 [facility] Basophil percentageOrdered B y: Morris Carr on 03-18-2023 Chloride [Moles/Vol] 110 mmol/L 98-107 [facility] Glucose [Mass/Vol] 88 mg/dL 74-106 [facility] Hemoglobin (Bld) [Mass/Vol] 11.0 g/dL 12.0-15.0 [facility] Potassium [Moles/Vol] 3.7 mmol/L 3.5-5.1 [facility] Sodium [Moles/Vol] 140 mmol/L 136-145 [facility] WBC (Bld) [#/Vol] 8.6 10*3/uL 4.4-11.0 [facility] Determination of erythrocyte mean corpuscular volume (MCV)Ordered By: Morris Carr on 03-18-2023 MCV (RBC) [Entitic vol] 86.6 fL 81-99 [facility] Erythrocyte distribution wid th ratioOrdered By: Morris Carr on 03-18-2023 Erythrocyte distribution width (RBC) [Ratio] 13.9 % 11.6-14.6 [facility] Erythrocyte distribution wid th standard deviationOrdered By: Morris Carr on 03-18-2023 Erythrocyte distribution width (RBC) [Entitic vol] 44.2 fL 35.1-43.9 [facility] Hematocrit Auto (Bld) [Volum e fraction]Ordered By: Morris Carr on 03-18-2023 Hematocrit (Bld) [Volume fraction] 36.9 % 37-47 [facility] Laboratory - Chemistry and C hemistry - challengeOrdered By: Morris Carr on 03-18-2023 CO2 [Moles/Vol] 28.0 mmol/L 21.0-32.0 [facility] Urea nitrogen/Creatinine [Mass ratio] 15.9 mg/mg 10-20 [facility] Laboratory - Hematology and Cell countsOrdered By: Morris Carr on 03-18-2023 MCH (RBC) [Entitic mass] 25.8 pg 27.0-32.0 [facility] MCHC (RBC) [Mass/Vol] 29.8 g/dL 32-36 [facility] Platelets (Bld) [#/Vol] 348 10*3/uL 150-450 [facility] No Panel InformationOrdered By: Morris Carr on 03-18-2023 Estimated GFR (MDRD) Amer 98 mL/min >60 [facility] Comment on above: GFR Calc Estimated GFR (MDRD) Non-Af Amer 81 mL/min >60 [facility] Comment on above: Non- GFR Calc Platelet mean volume Danny-Ec ker (Bld) [Entitic vol]Ordered By: Morris Carr on 03-18-2023 Platelet mean volume (Bld) [Entitic vol] 10.4 fL 6.2-12.0 [facility] RBC Auto (Bld) [#/Vol]Ordere d By: Morris Carr on 03-18-2023 RBC (Bld) [#/Vol] 4.26 10*6/uL 4.2-5.4 [facility] Serum or plasma calcium raul urement (mass/volume)Ordered By: Morris Carr on 03-18-2023 Calcium [Mass/Vol] 9.4 mg/dL 8.5-10.1 [facility] Serum or plasma creatinine m easurement (mass/volume)Ordered By: Morris Carr on 03-18-2023 Creatinine [Mass/Vol] 0.76 mg/dL 0.55-1.02 [facility] Comment on above: The validity of the calculated GFR & GFRAA in patients over 70 years has not been determined. Clinical correlation is essential. Serum or plasma urea nitroge n measurement (mass/volume)Ordered By: Morris Carr on 03-18-2023 Urea nitrogen [Mass/Vol] 12 mg/dL 7-18 [facility] Thin prep Papanicolaou smear with manual screeningOrdered By: Morris Carr on 03-18-2023 Thin prep Papanicolaou smear with manual screening 2 5-15 [facility] Basophil percentageOrdered B y: Morris Carr on 03-02-2023 Basophil percentage 10-25 SEEN /hpf 0-5 [facility] Bilirubin Test strip Ql (U)O rdered By: Morris Carr on 03-02-2023 Bilirubin Ql (U) Negative Negative [facility] Calcium oxalate crystals det ection in urine sediment by light microscopyOrdered By: Morris Carr on 03-02-2023 Calcium oxalate crystals LM Ql (Urine sed) 1+ /hpf [facility] Culture, urineOrdered By: Yarely Carr on 03-02-2023 Bacteria identified Cx Nom (U) Escherichia coli [facility] Ketones Test strip Ql (U)Ord ered By: Morris Carr on 03-02-2023 Ketones Ql (U) Negative Negative [facility] Mucus LM Ql (Urine sed)Order ed By: Morris Carr on 03-02-2023 Mucus Ql (Urine sed) 0 SEEN /hpf [facility] Nitrite Test strip Ql (U)Ord ered By: Morris Carr on 03-02-2023 Nitrite Ql (U) Positive Negative [facility] Protein Test strip Ql (U)Ord ered By: Morris Carr on 03-02-2023 Protein Ql (U) 15 mg/dl Negative [facility] Squamous epithelial cells de tection in urine sediment by light microscopyOrdered By: Morris Carr on 03-02-2023 Epithelial cells.squamous LM Ql (Urine sed) 0-5 SEEN /hpf 5-10 [facility] Urine blood detectionOrdered By: Morris Carr on 03-02-2023 RBC Ql (U) Negative Negative [facility] RBC Ql (U) 0 SEEN /hpf 0-5 [facility] Urine clarityOrdered By: Deshaun Carr on 03-02-2023 Clarity (U) Sl. Cloudy Clear [facility] Urine color determinationOrd ered By: Morris Carr on 03-02-2023 Color (U) Yellow Yellow [facility] Urine glucose detectionOrder ed By: Morris Carr on 03-02-2023 Glucose Ql (U) Normal mg/dl Normal [facility] Urine leukocyte esterase det ection by dipstickOrdered By: Morris Carr on 03-02-2023 Leukocyte esterase Test strip Ql (U) 100 /ul Negative [facility] Urine pHOrdered By: Morris paulino on 03-02-2023 pH (U) 6.0 [pH] 5.0 - 8.0 [facility] Urine sediment bacteria coun t by microscopy (number/high power field)Ordered By: Morris Carr on 03-02-2023 Bacteria LM.HPF (Urine sed) [#/Area] 3 /[HPF] None Seen [facility] Urine specific gravity measu rementOrdered By: Morris Carr on 03-02-2023 Specific gravity (U) [Rel density] 1.020 1.002-1.030 [facility] Urobilinogen Auto test strip Ql (U)Ordered By: Morris Carr on 03-02-2023 Urobilinogen Ql (U) Normal mg/dl Normal [facility] Basophil percentageOrdered B y: Morris Carr on 02-20-2023 Chloride [Moles/Vol] 110 mmol/L 98-107 [facility] Glucose [Mass/Vol] 83 mg/dL 74-106 [facility] Potassium [Moles/Vol] 4.0 mmol/L 3.5-5.1 [facility] Sodium [Moles/Vol] 144 mmol/L 136-145 [facility] WBC (Bld) [#/Vol] 8.1 10*3/uL 4.4-11.0 [facility] Blood erythrocytes count (nu mber/volume)Ordered By: Morris Carr on 02-20-2023 RBC (Bld) [#/Vol] 3.68 10*6/uL 4.2-5.4 [facility] Blood hemoglobin measurement (mass/volume)Ordered By: Morris Carr on 02-20-2023 Hemoglobin (Bld) [Mass/Vol] 9.8 g/dL 12.0-15.0 [facility] Blood platelet mean volumeOr dered By: Morris Carr on 02-20-2023 Platelet mean volume (Bld) [Entitic vol] 10.6 fL 6.2-12.0 [facility] Determination of erythrocyte mean corpuscular volume (MCV)Ordered By: Morris Carr on 02-20-2023 MCV (RBC) [Entitic vol] 90.5 fL 81-99 [facility] Hematocrit Auto (Bld) [Volum e fraction]Ordered By: Morris Carr on 02-20-2023 Hematocrit (Bld) [Volume fraction] 33.3 % 37-47 [facility] Laboratory - Chemistry and C hemistry - challengeOrdered By: Morris Carr on 02-20-2023 CO2 [Moles/Vol] 30.0 mmol/L 21.0-32.0 [facility] Urea nitrogen/Creatinine [Mass ratio] 12.7 mg/mg 10-20 [facility] Laboratory - Hematology and Cell countsOrdered By: Morris Carr on 02-20-2023 Erythrocyte distribution width (RBC) [Entitic vol] 46.7 fL 35.1-43.9 [facility] Erythrocyte distribution width (RBC) [Ratio] 14.0 % 11.6-14.6 [facility] MCH (RBC) [Entitic mass] 26.6 pg 27.0-32.0 [facility] MCHC Auto (RBC) [Mass/Vol]Or dered By: Morris Carr on 02-20-2023 MCHC (RBC) [Mass/Vol] 29.4 g/dL 32-36 [facility] No Panel InformationOrdered By: Morris Carr on 02-20-2023 Estimated GFR (MDRD) Amer 105 mL/min >60 [facility] Comment on above: GFR Calc Estimated GFR (MDRD) Non-Af Amer 87 mL/min >60 [facility] Comment on above: Non- GFR Calc Platelets bldOrdered By: Deshaun Carr on 02-20-2023 Platelets (Bld) [#/Vol] 352 10*3/uL 150-450 [facility] Serum or plasma calcium raul urement (mass/volume)Ordered By: Morris Carr on 02-20-2023 Calcium [Mass/Vol] 8.7 mg/dL 8.5-10.1 [facility] Serum or plasma creatinine m easurement (mass/volume)Ordered By: Morris Carr on 02-20-2023 Creatinine [Mass/Vol] 0.71 mg/dL 0.55-1.02 [facility] Comment on above: The validity of the calculated GFR & GFRAA in patients over 70 years has not been determined. Clinical correlation is essential. Serum or plasma urea nitroge n measurement (mass/volume)Ordered By: Morris Carr on 02-20-2023 Urea nitrogen [Mass/Vol] 9 mg/dL 7-18 [facility] Thin prep Papanicolaou smear with manual screeningOrdered By: Morris Carr on 02-20-2023 Thin prep Papanicolaou smear with manual screening 4 5-15 [facility] Basophil percentageOrdered B y: Morris Carr on 02-13-2023 Chloride [Moles/Vol] 111 mmol/L 98-107 [facility] Glucose [Mass/Vol] 88 mg/dL 74-106 [facility] Potassium [Moles/Vol] 3.9 mmol/L 3.5-5.1 [facility] Sodium [Moles/Vol] 141 mmol/L 136-145 [facility] WBC (Bld) [#/Vol] 8.8 10*3/uL 4.4-11.0 [facility] Blood erythrocytes count (nu mber/volume)Ordered By: Morris Carr on 02-13-2023 RBC (Bld) [#/Vol] 3.96 10*6/uL 4.2-5.4 [facility] Blood hemoglobin measurement (mass/volume)Ordered By: Morris Carr on 02-13-2023 Hemoglobin (Bld) [Mass/Vol] 10.8 g/dL 12.0-15.0 [facility] Blood platelet mean volumeOr dered By: Morris Carr on 02-13-2023 Platelet mean volume (Bld) [Entitic vol] 10.1 fL 6.2-12.0 [facility] Determination of erythrocyte mean corpuscular volume (MCV)Ordered By: Morris Carr on 02-13-2023 MCV (RBC) [Entitic vol] 88.6 fL 81-99 [facility] Hematocrit Auto (Bld) [Volum e fraction]Ordered By: Morris Carr on 02-13-2023 Hematocrit (Bld) [Volume fraction] 35.1 % 37-47 [facility] Laboratory - Chemistry and C hemistry - challengeOrdered By: Morris Carr on 02-13-2023 CO2 [Moles/Vol] 24.0 mmol/L 21.0-32.0 [facility] Urea nitrogen/Creatinine [Mass ratio] 12.6 mg/mg 10-20 [facility] Laboratory - Hematology and Cell countsOrdered By: Morris Carr on 02-13-2023 Erythrocyte distribution width (RBC) [Entitic vol] 45.4 fL 35.1-43.9 [facility] Erythrocyte distribution width (RBC) [Ratio] 14.2 % 11.6-14.6 [facility] MCH (RBC) [Entitic mass] 27.3 pg 27.0-32.0 [facility] MCHC Auto (RBC) [Mass/Vol]Or dered By: Morris Carr on 02-13-2023 MCHC (RBC) [Mass/Vol] 30.8 g/dL 32-36 [facility] No Panel InformationOrdered By: Morris Carr on 02-13-2023 Estimated GFR (MDRD) Amer 93 mL/min >60 [facility] Comment on above: GFR Calc Estimated GFR (MDRD) Non-Af Amer 77 mL/min >60 [facility] Comment on above: Non- GFR Calc Platelets bldOrdered By: Deshaun Carr on 02-13-2023 Platelets (Bld) [#/Vol] 432 10*3/uL 150-450 [facility] Serum or plasma calcium raul urement (mass/volume)Ordered By: Morris Carr on 02-13-2023 Calcium [Mass/Vol] 8.8 mg/dL 8.5-10.1 [facility] Serum or plasma creatinine m easurement (mass/volume)Ordered By: Morris Carr on 02-13-2023 Creatinine [Mass/Vol] 0.79 mg/dL 0.55-1.02 [facility] Comment on above: The validity of the calculated GFR & GFRAA in patients over 70 years has not been determined. Clinical correlation is essential. Serum or plasma urea nitroge n measurement (mass/volume)Ordered By: Morris Carr on 02-13-2023 Urea nitrogen [Mass/Vol] 10 mg/dL 7-18 [facility] Thin prep Papanicolaou smear with manual screeningOrdered By: Morris Carr on 02-13-2023 Thin prep Papanicolaou smear with manual screening 6 5-15 [facility] Basophil percentageOrdered B y: Morris Carr on 01-30-2023 Chloride [Moles/Vol] 110 mmol/L 98-107 [facility] Glucose [Mass/Vol] 84 mg/dL 74-106 [facility] Potassium [Moles/Vol] 3.8 mmol/L 3.5-5.1 [facility] Sodium [Moles/Vol] 141 mmol/L 136-145 [facility] WBC (Bld) [#/Vol] 9.0 10*3/uL 4.4-11.0 [facility] Blood erythrocytes count (nu mber/volume)Ordered By: Morris Carr on 01-30-2023 RBC (Bld) [#/Vol] 3.31 10*6/uL 4.2-5.4 [facility] Blood hemoglobin measurement (mass/volume)Ordered By: Morris Carr on 01-30-2023 Hemoglobin (Bld) [Mass/Vol] 9.1 g/dL 12.0-15.0 [facility] Blood platelet mean volumeOr dered By: Morris Carr on 01-30-2023 Platelet mean volume (Bld) [Entitic vol] 10.4 fL 6.2-12.0 [facility] Determination of erythrocyte mean corpuscular volume (MCV)Ordered By: Morris Carr on 01-30-2023 MCV (RBC) [Entitic vol] 90.9 fL 81-99 [facility] Hematocrit Auto (Bld) [Volum e fraction]Ordered By: Morris Carr on 01-30-2023 Hematocrit (Bld) [Volume fraction] 30.1 % 37-47 [facility] Laboratory - Chemistry and C hemistry - challengeOrdered By: Morris Carr on 01-30-2023 CO2 [Moles/Vol] 29.0 mmol/L 21.0-32.0 [facility] Urea nitrogen/Creatinine [Mass ratio] 17.5 mg/mg 10-20 [facility] Laboratory - Hematology and Cell countsOrdered By: Morris Carr on 01-30-2023 Erythrocyte distribution width (RBC) [Entitic vol] 48.5 fL 35.1-43.9 [facility] Erythrocyte distribution width (RBC) [Ratio] 14.7 % 11.6-14.6 [facility] MCH (RBC) [Entitic mass] 27.5 pg 27.0-32.0 [facility] MCHC Auto (RBC) [Mass/Vol]Or dered By: Morris Carr on 01-30-2023 MCHC (RBC) [Mass/Vol] 30.2 g/dL 32-36 [facility] No Panel InformationOrdered By: Morris Carr on 01-30-2023 Estimated GFR (MDRD) Amer 100 mL/min >60 [facility] Comment on above: GFR Calc Estimated GFR (MDRD) Non-Af Amer 83 mL/min >60 [facility] Comment on above: Non- GFR Calc Platelets bldOrdered By: Deshaun Carr on 01-30-2023 Platelets (Bld) [#/Vol] 317 10*3/uL 150-450 [facility] Serum or plasma calcium raul urement (mass/volume)Ordered By: Morris Carr on 01-30-2023 Calcium [Mass/Vol] 8.5 mg/dL 8.5-10.1 [facility] Serum or plasma creatinine m easurement (mass/volume)Ordered By: Morris Carr on 01-30-2023 Creatinine [Mass/Vol] 0.74 mg/dL 0.55-1.02 [facility] Comment on above: The validity of the calculated GFR & GFRAA in patients over 70 years has not been determined. Clinical correlation is essential. Serum or plasma urea nitroge n measurement (mass/volume)Ordered By: Morris Carr on 01-30-2023 Urea nitrogen [Mass/Vol] 13 mg/dL 7-18 [facility] Thin prep Papanicolaou smear with manual screeningOrdered By: Morris Carr on 01-30-2023 Thin prep Papanicolaou smear with manual screening 2 5-15 [facility] ECG 12-LEADon 01-27-2023 ECG 12-LEAD IMPRESSION: Sinus rhythm Electronically Signed On 01-27-2023 9:41:09 EST by Tatyana Vasquez [facility] CARECOORDon 01-26-2023 CARECOORD Next Site of Care Admission Date: 01/24/2023 12:48 AM Patient Name: CLARIBEL STOLL Location: [place] [address] [id number] Date of : 1955 ---- Placement Information ---- Referral Type:[facility] - Return Referral ID:[id number] Provider Name:[facility] hitesh [place] Address 1:[address] [place] [address] [address] Address 2: City:[place] Selection Factors:Returning to Facility State:[place] Normal [facility] CAREIDAdlyfe RN ORTHOPEDIC tasked to send discharge [facility]. [facility] [employer] Discharge med list transmitted to Return [facility] via Careport per TCC request. [facility] CAREeyetokORD Transport arranged f or 1600 today to tranfer patient to [facility]. RN, TCC, US, [facility], sister (Missy) were notified. [facility] CARECOORD Care Managment Initi al Assessment Date: 01/26/2023 Patient Name: Claribel Stoll : 1955 Patient Information Source of Information: Patient Supervisor Parking Lot Name/Contact Information: Missy Wihtfield - Cognition/Language: Confused at baseline Permission given to speak with patient installation service representative[facility] as indicated: Confirmation of Payer with patient/family: Yes Payer Name: [place] [employer] [place]: Confirmation of Primary Care Physician: Confirmed PCP Name: morris Carr Seen in last 2 years?: Yes Primary Caregiver: If assistance needed, confirmed caregiver ready, willing and able to care for patient at discharge: Confirmed with: lives at [facility] Living Arrangements Current Residence: Number of Floors Number of Entry Steps: Bed/Bath Levels: Facility: [facility] Facility Name: [facility] Plan to Return: Lives with: Other (Comment) Support Systems: Family members Activities of Daily Living Ambulation: Total Care Bathing/Dressing: Total Care Elimination/Continence /Toileting: Assistance Feeding: Assistance Who Assists with Activities of Daily Living: staff at [facility] Instrumental Activities of Daily Living [...] expects to be discharged to: back to [facility] Discharge Planning Actions: No needs identified Patient's Choice Rights and [employer] and Collaborative Relationships Disclosed as Indicated for Post-Acute Care: Interdisciplinary Team Engagement: PT/OT Social Work Referral for: Additional Information: Patient remains on H6 after fall s/p [facility] 01/25/2023. Discharge order noted. Call placed to Missy Whitfield sister of patient. Missy answered admission questions. Patient lives at [facility] and uses a w/c at baseline, staff assists with all care. [facility] patient is at intermediate level of care and is a bedhold, able to take patient back today. drop board worker aware of need to transport. TCC to assist and follow as needed. Nyla Haider RN Normal [facility] CBC (HEMOGRAM)on 01-26-2023 Erythrocyte distribution width (RBC) [Ratio] 14.9 % High 11.5-14.5 [facility] Comment on above: Performed By: #### L [id number] ####Embedded Case Manager: NELSY PATEL ([id number])[address] ERYTHROCYTE MEAN CORPUSCULAR HEMOGLOBIN CONCENTRATION (G/DL) BY AUTOMATED 31.8 % Low 32.0-36.0 [facility] Comment on above: Performed By: #### L [id number] ####Embedded Case Manager: NELSY PATEL ([id number])[address] Hematocrit (Bld) [Volume fraction] 32.0 % Low 35.0-47.0 [facility] Comment on above: Performed By: #### L [id number] ####Embedded Case Manager: NELSY PATEL ([id number])[address] Hemoglobin (Bld) [Mass/Vol] 10.2 g/dL Low 11.7-16.0 [facility] Comment on above: Performed By: #### L [id number] ####Embedded Case Manager: NELSY PATEL ([id number])[address] MCH (RBC) [Entitic mass] 27.1 pg Normal 26.0-34.0 [facility] Comment on above: Performed By: #### L [id number] ####Embedded Case Manager: NELSY PATEL ([id number])[facility] ([facility])[address] [place] [address] MCV (RBC) [Entitic vol] 85.2 fL Normal 80.0-98.0 [facility] Comment on above: Performed By: #### L [id number] ####Embedded Case Manager: NELSY PATEL ([id number])[facility] ([facility])[address] [place] [address] Platelet mean volume (Bld) [Entitic vol] 9.1 fL Normal 7.4-12.4 [facility] Comment on above: Performed By: #### L [id number] ####Embedded Case Manager: NELSY PATEL ([id number])[facility] ([facility])[address] [place] [address] Platelets (Bld) [#/Vol] 259 10*3/uL Normal 140-440 [facility] Comment on above: Performed By: #### L [id number] ####Embedded Case Manager: NELSY PATEL ([id number])[facility] ([facility])[address] [place] [address] RBC (Bld) [#/Vol] 3.75 10*6/uL Low 3.8-5.20 [facility] Comment on above: Performed By: #### L [id number] ####Embedded Case Manager: NELSY PATEL ([id number])[facility] ([facility])[address] [place] [address] WBC (Bld) [#/Vol] 14.7 10*3/uL High 3.6-10.7 [facility] Comment on above: Performed By: #### L [id number] ####Embedded Case Manager: NELSY PATEL ([id number])[facility])[address] [place] [address] CBC panel Auto (Bld)on 01-26 Erythrocyte distribution width (RBC) [Ratio] 14.9 % High 11.5 - 14.5 % [facility] Hematocrit (Bld) [Volume fraction] 32.0 % Low 35.0 - 47.0 % [facility] Hemoglobin (Bld) [Mass/Vol] 10.2 g/dL Low 11.7 - 16.0 g/dL [facility] Interpretation and review of laboratory results Abnormal [facility] MCH (RBC) [Entitic mass] 27.1 pg 26.0 - 34.0 pg [facility] MCHC (RBC) [Mass/Vol] 31.8 % Low 32.0 - 36.0 % [facility] MCV (RBC) [Entitic vol] 85.2 fL 80.0 - 98.0 fL [facility] Platelet mean volume (Bld) [Entitic vol] 9.1 fL 7.4 - 12.4 fL [facility] Platelets (Bld) [#/Vol] 259 10*3/uL 140 - 440 10*3/uL [facility] RBC (Bld) [#/Vol] 3.75 10*6/uL Low 3.8 - 5.20 10*6/uL [facility] WBC (Bld) [#/Vol] 14.7 10*3/uL High 3.6 - 10.7 10*3/uL [facility] COMPREHENSIVE METABOLIC PANE Janak 01-26-2023 Albumin [Mass/Vol] 3.6 g/dL Normal 3.5-5.0 [facility] Comment on above: Performed By: #### Greg AB17, [id number] ####Embedded Case Manager: NELSY PATEL ([id number])[address] ALP [Catalytic activity/Vol] 70 U/L Normal 38-126 [facility] Comment on above: Performed By: #### L AB17, [id number] ####Embedded Case Manager: NELSY PATEL ([id number])[facility])[address] [place] [address] ALT [Catalytic activity/Vol] 11 U/L Normal 0-34 [facility] Comment on above: Performed By: #### L AB17, [id number] ####Embedded Case Manager: NELSY PATEL ([id number])[facility])[address] [place] [address] [place] Anion gap [Moles/Vol] 8 mmol/L Normal 3-13 [facility] Comment on above: Performed By: #### Greg RILEY, [id number] ####Embedded Case Manager: NELSY PATEL ([id number])[facility] [place] [address] AST [Catalytic activity/Vol] 28 U/L Normal 15-46 [facility] Comment on above: Performed By: #### Greg RILEY, [id number] ####Embedded Case Manager: NELSY PATEL ([id number])[facility] ([facility])[address] [place] [address] Bilirubin [Mass/Vol] 0.8 mg/dL Normal 0.2-1.3 [facility] Comment on above: Performed By: #### Greg RILEY, [id number] ####Embedded Case Manager: NELSY PATEL ([id number])[facility] [place] [address] Calcium [Mass/Vol] 8.7 mg/dL Normal 8.4-10.4 [facility] Comment on above: Performed By: #### Greg RILEY, [id number] ####Embedded Case Manager: NELSY PATEL ([id number])[facility] [place] [address] [place] Chloride [Moles/Vol] 104 mmol/L Normal 98-107 [facility] Comment on above: Performed By: #### Greg RILEY, [id number] ####Embedded Case Manager: NELSY PATEL ([id number])[facility] [place] [address] [place] CO2 [Moles/Vol] 24 mmol/L Normal 22-30 [facility] Comment on above: Performed By: #### Greg RILEY, [id number] ####Embedded Case Manager: NELSY PATEL ([id number])[facility] ([facility])[address] [place] [address] [place] Creatinine [Mass/Vol] 0.53 mg/dL Normal 0.52-1.04 [facility] Comment on above: Performed By: #### Greg DEL ROSARIO17, [id number] ####Embedded Case Manager: NELSY PATEL ([id number])[facility])[address] [place] [address] GLOMERULAR FILTRATION RATE ML/MIN/1.73 SQ M.PREDICTED >90.0 Normal >60.0 [facility] Comment on above: Result Comment: Calc ulation based on the Chronic Kidney Disease Epidemiology Collaboration (CKD-EPI) equation refit without adjustment for race Performed By: #### Greg DEL ROSARIO17, [id number] ####Embedded Case Manager: NELSY PATEL ([id number])[facility] ([facility])[address] [place] [address] Glucose [Mass/Vol] 129 mg/dL High 70-100 [facility] Comment on above: Performed By: #### Greg RILEY, [id number] ####Embedded Case Manager: NELSY PATEL ([id number])[facility] ([facility])[address] [place] [address] Potassium [Moles/Vol] 3.9 mmol/L Normal 3.5-5.1 [facility] Comment on above: Performed By: #### Greg DEL ROSARIO17, [id number] ####Embedded Case Manager: NELSY PATEL ([id number])[facility] ([facility])[address] [place] [address] Protein [Mass/Vol] 6.9 g/dL Normal 6.3-8.2 [facility] Comment on above: Performed By: #### Greg AB17, [id number] ####Embedded Case Manager: NELSY PATEL ([id number])[facility] ([facility])[address] [place] [address] [place] Sodium [Moles/Vol] 137 mmol/L Normal 135-145 [facility] Comment on above: Performed By: #### L AB17, [id number] ####Embedded Case Manager: NELSY PATEL ([id number])[facility])[address] [place] [address] [place] Urea nitrogen [Mass/Vol] 12 mg/dL Normal 7-17 [facility] Comment on above: Performed By: #### L AB17, [id number] ####Embedded Case Manager: NELSY PATEL ([id number])[facility] ([facility])[address] [place] [address] CT HEAD WO IV CONTRASTon CT HEAD WO IV CONTRAST [facility] 1955 [id number] Exam Date/Time: 01/26/2023 02:15 Procedure: CT HEAD [...] Signed Date/Time: 01/26/2023 2:57 AM EST Normal [facility] CT Head WO contraston [address] head. No evidence of an acute intracranial process. 2. Mild volume loss. Periventricular and subcortical leukomalacia likely reflects areas of small vessel ischemic change. Report Dictated on Electronically Signed By: Jluis Barrera MD Electronically Signed Date/Time: 01/26/2023 2:57 AM EST [facility] Patient Name: CLARIBEL STOLL : [...] calcification of the carotid siphons is noted. [facility] Jluis Barrera MD - 01/26/2023 Patient Name: [...] Electronically Signed Date/Time: 01/26/2023 2:57 AM EST [facility] Radiology Study observation (narrative) [facility] alth CT Head WO contrastOrdered B y: Jluis Barrera on 01-26-2023 [facility] [employer] Work Phone: Comprehensive metabolic 1998 panelon 01-26-2023 Albumin [Mass/Vol] 3.6 g/dL 3.5 - 5.0 g/dL [facility] ALP [Catalytic activity/Vol] 70 U/L 38 - 126 U/L [facility] ALT [Catalytic activity/Vol] 11 U/L 0 - 34 U/L [facility] Anion gap [Moles/Vol] 8 mmol/L 3 - 13 mmol/L [facility] AST [Catalytic activity/Vol] 28 U/L 15 - 46 U/L [facility] Bilirubin [Mass/Vol] 0.8 mg/dL 0.2 - 1 .3 mg/dL [facility] Calcium [Mass/Vol] 8.7 mg/dL 8.4 - 10. 4 mg/dL [facility] Chloride [Moles/Vol] 104 mmol/L 98 - 10 7 mmol/L [facility] CO2 [Moles/Vol] 24 mmol/L 22 - 30 mmol/L [facility] Creatinine [Mass/Vol] 0.53 mg/dL 0.52 - 1.04 mg/dL [facility] GFR/1.73 sq M.predicted MDRD (S/P/Bld) [Vol rate/Area] - PINF [facility] Comment on above: Calculation based on the Chronic Kidney Disease Epidemiology Collaboration (CKD-EPI) equation refit without adjustment for race Glucose [Mass/Vol] 129 mg/dL High 70 - 100 mg/dL [facility] Interpretation and review of laboratory results Abnormal [facility] Potassium [Moles/Vol] 3.9 mmol/L 3.5 - 5.1 mmol/L [facility] Protein [Mass/Vol] 6.9 g/dL 6.3 - 8.2 g/dL [facility] Sodium [Moles/Vol] 137 mmol/L 135 - 145 mmol/L [facility] Urea nitrogen [Mass/Vol] 12 mg/dL 7 - 17 mg/dL [facility] IDNon 01-26-2023 IDN Problem: Knowledge Deficit Goal: [...] is maintained or improved Outcome: Completed Normal [facility] IDN Problem: Knowledge Deficit Goal: Patient/family/caregiv er [...] integrity Relieve pressure to bony prominences Normal [facility] IDN Called to see patien t for [...] state age correctly, states she is at [employer] . She does not recall why [...] status. Order received for CT scan Normal [facility] Laboratory - Chemistry and C hemistry - challengeon 01-26-2023 Troponin I.cardiac [Mass/Vol] ng/mL NINF - 0.034 ng/mL [facility] Glucose [Mass/Vol] 145 mg/dL High 70 - 100 mg/dL [facility] No Panel Informationon 01-26 Interpretation and review of laboratory results Abnormal [facility] Performed by: [facility], [address] [place] [address] CLIA ID: [id number] [facility] Nursing Noteon 01-26-2023 Nursing Note Pt alertness decline d over shift, Dr Domínguez up to assess the patient. RAIL CAR REPAIRER notified per Dr Domínguez. RAIL CAR REPAIRER up to assess the patient. Narcan given per order with no change. Pt taken down to CT. Normal [facility] Progress Noteon 01-26-2023 Progress Note Nutrition rescreen completed. Chart reviewed. Patient to be monitored and followed by the diet maintenance shop technician. 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 Pt POD [...] Head for this mental status change Normal [facility] TROPONIN, WITH SERIAL REFLEX on 01-26-2023 Troponin I.cardiac [Mass/Vol] ng/mL Normal <0.034 [facility] Comment on above: Result Comment: ELVIA Diaz COMMENTS: Patients with high levels of Biotin oral intake (ie >5 mg/day) may have falsely decreased Troponin levels. Performed By: #### L AB17, [id number] ####Embedded Case Manager: NELSY PATEL ([id number])[address] Troponin I.cardiac [Mass/Vol ]on 01-26-2023 Interpretation and review of laboratory results Normal [facility] Patients with high levels of Biotin oral intake (ie >5 mg/day) may have falsely decreased Troponin levels. [facility] BASIC METABOLIC PANELon 12- Anion gap [Moles/Vol] 9 mmol/L Normal 3-13 [facility] Comment on above: Performed By: #### L AB15 ####Embedded Case Manager: NELSY PATEL ([id number])[address] Calcium [Mass/Vol] 8.4 mg/dL Normal 8.4-10.4 [facility] Comment on above: Performed By: #### L AB15 ####Embedded Case Manager: NELSY [id number])[facility])[address] [place] [address] Chloride [Moles/Vol] 105 mmol/L Normal 98-107 [facility] Comment on above: Performed By: #### L AB15 ####Embedded Case Manager: NELSY [id number])[facility] ([facility])[address] [place] [address] [place] CO2 [Moles/Vol] 21 mmol/L Low 22-30 [facility] Comment on above: Performed By: #### L AB15 ####Embedded Case Manager: NELSY PATEL ([id number])[facility] [place] [address] Creatinine [Mass/Vol] 0.58 mg/dL Normal 0.52-1.04 [facility] Comment on above: Performed By: #### L AB15 ####Embedded Case Manager: NELSY PATEL ([id number])[facility] ([facility])[address] [place] [address] GLOMERULAR FILTRATION RATE ML/MIN/1.73 SQ M.PREDICTED >90.0 Normal >60.0 [facility] Comment on above: Result Comment: Calc ulation based on the Chronic Kidney Disease Epidemiology Collaboration (CKD-EPI) equation refit without adjustment for race Performed By: #### L AB15 ####Embedded Case Manager: NELSY PATEL ([id number])[facility] [place] [address] Glucose [Mass/Vol] 97 mg/dL Normal 70-100 [facility] Comment on above: Performed By: #### L AB15 ####Embedded Case Manager: NELSY PATEL ([id number])[facility] ([facility])[address] [place] [address] Potassium [Moles/Vol] 3.8 mmol/L Normal 3.5-5.1 [facility] Comment on above: Performed By: #### L AB15 ####Embedded Case Manager: NELSY PATEL ([id number])[facility] ([facility])[address] [place] [address] [place] Sodium [Moles/Vol] 135 mmol/L Normal 135-145 [facility] Comment on above: Performed By: #### L AB15 ####Embedded Case Manager: NELSY PATEL ([id number])[facility] ([facility])[address] [place] [address] [place] Urea nitrogen [Mass/Vol] 14 mg/dL Normal 7-17 [facility] Comment on above: Performed By: #### L AB15 ####Embedded Case Manager: NELSY PATEL ([id number])[facility] ([facility])[address] [place] [address] Basic metabolic 1998 panelon 01-25-2023 Anion gap [Moles/Vol] 9 mmol/L 3 - 13 mmol/L [facility] Calcium [Mass/Vol] 8.4 mg/dL 8.4 - 10. 4 mg/dL [facility] Chloride [Moles/Vol] 105 mmol/L 98 - 10 7 mmol/L [facility] CO2 [Moles/Vol] 21 mmol/L Low 22 - 30 mmol/L [facility] Creatinine [Mass/Vol] 0.58 mg/dL 0.52 - 1.04 mg/dL [facility] GFR/1.73 sq M.predicted MDRD (S/P/Bld) [Vol rate/Area] - PINF [facility] Comment on above: Calculation based on the Chronic Kidney Disease Epidemiology Collaboration (CKD-EPI) equation refit without adjustment for race Glucose [Mass/Vol] 97 mg/dL 70 - 100 mg/dL [facility] Interpretation and review of laboratory results Abnormal [facility] Potassium [Moles/Vol] 3.8 mmol/L 3.5 - 5.1 mmol/L [facility] Sodium [Moles/Vol] 135 mmol/L 135 - 145 mmol/L [facility] Urea nitrogen [Mass/Vol] 14 mg/dL 7 - 17 mg/dL [facility] CBC W Auto Differential pane l (Bld)Ordered By: Garry Rangel on 01-25-2023 Basophils (Bld) [#/Vol] 0.1 10*3/uL 0.0 - 0.2 10*3/uL [facility] Basophils/100 WBC (Bld) 0.8 % 0.0 - 2.0 % [facility] Eosinophils (Bld) [#/Vol] 0.6 10*3/uL High 0.0 - 0.5 10*3/uL [facility] Eosinophils/100 WBC (Bld) 5.6 % 1.0 - 6.0 % [facility] Erythrocyte distribution width (RBC) [Ratio] 15.0 % High 11.5 - 14.5 % [facility] Hematocrit (Bld) [Volume fraction] 32.9 % Low 35.0 - 47.0 % [facility] Hemoglobin (Bld) [Mass/Vol] 10.4 g/dL Low 11.7 - 16.0 g/dL [facility] Interpretation and review of laboratory results Abnormal [facility] Lymphocytes (Bld) [#/Vol] 2.5 10*3/uL 1.0 - 4.3 10*3/uL [facility] Lymphocytes/100 WBC (Bld) 23.1 % 20.0 - 40.0 % [facility] MCH (RBC) [Entitic mass] 27.4 pg 26.0 - 34.0 pg [facility] MCHC (RBC) [Mass/Vol] 31.7 % Low 32.0 - 36.0 % [facility] MCV (RBC) [Entitic vol] 86.3 fL 80.0 - 98.0 fL [facility] Monocytes (Bld) [#/Vol] 1.1 10*3/uL High 0.0 - 0.8 10*3/uL [facility] Monocytes/100 WBC (Bld) 9.8 % 2.0 - 10.0 % [facility] Neutrophils (Bld) [#/Vol] 6.6 10*3/uL 1.8 - 7.0 10*3/uL [facility] Neutrophils/100 WBC (Bld) 60.7 % 40.0 - 80.0 % [facility] Nucleated RBC/100 WBC (Bld) [Ratio] 0.1 % [facility] Platelet mean volume (Bld) [Entitic vol] 8.2 fL 7.4 - 12.4 fL [facility] Platelets (Bld) [#/Vol] 250 10*3/uL 140 - 440 10*3/uL [facility] RBC (Bld) [#/Vol] 3.81 10*6/uL 3.8 - 5.20 10*6/uL [facility] WBC (Bld) [#/Vol] 10.9 10*3/uL High 3.6 - 10.7 10*3/uL [facility] CBC WITH AUTO DIFFERENTIALon 01-25-2023 Basophils (Bld) [#/Vol] 0.1 10*3/uL Normal 0.0-0.2 [facility] Comment on above: Performed By: #### L [id number] ####Embedded Case Manager: NELSY PATEL ([id number])[facility])[address] [place] [address] Basophils/100 WBC (Bld) 0.8 % Normal 0.0-2.0 [facility] Comment on above: Performed By: #### L [id number] ####Embedded Case Manager: NELSY PATEL ([id number])[facility])[address] [place] [address] Eosinophils (Bld) [#/Vol] 0.6 10*3/uL High 0.0-0.5 [facility] Comment on above: Performed By: #### L [id number] ####Embedded Case Manager: NELSY PATEL ([id number])[facility])[address] [place] [address] Eosinophils/100 WBC (Bld) 5.6 % Normal 1.0-6.0 [facility] Comment on above: Performed By: #### L [id number] ####Embedded Case Manager: NELSY PATEL ([id number])[facility])[address] [place] [address] Erythrocyte distribution width (RBC) [Ratio] 15.0 % High 11.5-14.5 [facility] Comment on above: Performed By: #### L [id number] ####Embedded Case Manager: NELSY PATEL ([id number])[facility])[address] [place] [address] ERYTHROCYTE MEAN CORPUSCULAR HEMOGLOBIN CONCENTRATION (G/DL) BY AUTOMATED 31.7 % Low 32.0-36.0 [facility] Comment on above: Performed By: #### L [id number] ####Embedded Case Manager: NELSY PATEL ([id number])[facility])[address] [place] [address] Hematocrit (Bld) [Volume fraction] 32.9 % Low 35.0-47.0 [facility] Comment on above: Performed By: #### L [id number] ####Embedded Case Manager: NELSY PATEL ([id number])[facility])[address] [place] [address] Hemoglobin (Bld) [Mass/Vol] 10.4 g/dL Low 11.7-16.0 [facility] Comment on above: Performed By: #### L [id number] ####Embedded Case Manager: NELSY PATEL ([id number])[facility])[address] [place] [address] Lymphocytes (Bld) [#/Vol] 2.5 10*3/uL Normal 1.0-4.3 [facility] Comment on above: Performed By: #### L [id number] ####Embedded Case Manager: NELSY PATEL ([id number])[address] Lymphocytes/100 WBC (Bld) 23.1 % Normal 20.0-40.0 [facility] Comment on above: Performed By: #### L [id number] ####Embedded Case Manager: NELSY PATEL ([id number])[facility])[address] [place] [address] MCH (RBC) [Entitic mass] 27.4 pg Normal 26.0-34.0 [facility] Comment on above: Performed By: #### L [id number] ####Embedded Case Manager: NELSY PATEL ([phone])[facility])[address] [place] [address] MCV (RBC) [Entitic vol] 86.3 fL Normal 80.0-98.0 [facility] Comment on above: Performed By: #### L [id number] ####Embedded Case Manager: NELSY PATEL ([phone])[facility])[address] [place] [address] Monocytes (Bld) [#/Vol] 1.1 10*3/uL High 0.0-0.8 [facility] Comment on above: Performed By: #### L [id number] ####Embedded Case Manager: NELSY [id number])[facility] ([facility])[address] [place] [address] Monocytes/100 WBC (Bld) 9.8 % Normal 2.0-10.0 [facility] Comment on above: Performed By: #### L [id number] ####Embedded Case Manager: NELSY PATEL ([id number])[facility] ([facility])[address] [place] [address] Neutrophils (Bld) [#/Vol] 6.6 10*3/uL Normal 1.8-7.0 [facility] Comment on above: Performed By: #### L [id number] ####Embedded Case Manager: NELSY PATEL ([id number])[facility] ([facility])[address] [place] [address] Neutrophils/100 WBC (Bld) 60.7 % Normal 40.0-80.0 [facility] Comment on above: Performed By: #### L [id number] ####Embedded Case Manager: NELSY PATEL ([id number])[facility] ([facility])[address] [place] [address] NRBC (PER 100 WBCS) BY AUTOMATED COUNT 0.1 /100 WBCs Normal 0.0-2.0 [facility] Comment on above: Performed By: #### L [id number] ####Embedded Case Manager: NELSY PATEL ([phone])[facility] ([facility])[address] [place] [address] Platelet mean volume (Bld) [Entitic vol] 8.2 fL Normal 7.4-12.4 [facility] Comment on above: Performed By: #### L [id number] ####Embedded Case Manager: NELSY PATEL ([phone])[facility] ([facility])[address] [place] [address] [place] Platelets (Bld) [#/Vol] 250 10*3/uL Normal 140-440 [facility] Comment on above: Performed By: #### L [id number] ####Embedded Case Manager: NELSY PATEL ([phone])[facility])[address] [place] [address] RBC (Bld) [#/Vol] 3.81 10*6/uL Normal 3.8-5.20 [facility] Comment on above: Performed By: #### L [id number] ####Embedded Case Manager: NELSY PATEL ([phone])[facility])[address] [place] [address] WBC (Bld) [#/Vol] 10.9 10*3/uL High 3.6-10.7 [facility] Comment on above: Performed By: #### L [id number] ####Embedded Case Manager: NELSY PATEL ([phone])[address] Laboratory - Coagulationon 1 03-28-2022 aPTT Coag (PPP) [Time] 26.3 s 20.0 - 30.5 s [facility] INR Coag (PPP) [Relative time] 1.0 {INR} 0.9 - 1.1 [facility] Comment on above: Recommended Anticoag ulant Therapy: [...] [Time] 10.7 s 9.0 - 12.0 s [facility] No Panel Informationon 01-25 Interpretation and review of laboratory results Normal [facility] Nursing Noteon 01-25-2023 Nursing Note Pt to floor with transport, nad, resp non labored, alert and denies any pain Normal [facility] Nursing Note Report called to floor, transport initiated Normal [facility] Op Noteon 01-25-2023 Op Note [facility] MAIN OR [address] [address] Dept: [phone] Loc: [phone] Operative Report Patient Name: Claribel Stoll Date of : 1955 Date of Surgery: 01/25/23 Pre-operative diagnosis: Right displaced femoral neck fracture Post-operative diagnosis: Same Procedure(s): Cemented hemiarthroplasty of right hip (CPT 13110) Surgeon: Randee Oliver M.D. Automation Software Engineer(s): Jericho Maradiaga M.D. Anesthesia: General EBL: 50 [...] as well as medical complications such as AL, stroke, PE, DVT, and even . Patient [...] Posterior hip precautions x 6 wks Normal [facility] PROTIME AND APTTon 3 aPTT Coag (Bld) [Time] 26.3 s Normal 20.0-30.5 [facility] Comment on above: Performed By: #### L [id number] ####Embedded Case Manager: NELSY PATEL ([phone])[facility] ([facility])[address] [place] [address] INR Coag (PPP) [Relative time] 1.0 {INR} Normal 0.9-1.1 [facility] Comment on above: Result Comment: Shaun [...] prevent Myocardial Infarction Performed By: #### L [id number] ####Embedded Case Manager: NELSY PATEL ([phone])[facility] ([employer])[address] [place] [address] PT Coag (PPP) [Time] 10.7 s Normal 9.0-12.0 [facility] Comment on above: Performed By: #### L [id number] ####Embedded Case Manager: NELSY PATEL ([id number])[facility] ([facility] [place] [address] XR HIP 2 OR 3 VW RIGHTon [...] Signed Date/Time: 01/25/2023 11:48 AM EST Normal [facility] XR Hip - right 3 Viewson [...] MD Electronically Signed Date/Time: 01/25/2023 11:48 AM [facility] Patient Name: CLARIBEL STOLL : 1955 Exam Date/Time: 01/25/2023 10:42 Procedure: XR HIP 2 OR 3 VW RIGHT Ordering Provider: SINGH PALLAVI Reason For Exam: post-op RIGHT HIP: CLINICAL INDICATION: Right hip fracture. Postoperative radiographs. TECHNIQUE: AP view the pelvis, two views right hip COMPARISON: Previous day [facility] Genoveva Calvo MD - 01/25/2023 [...] MD Electronically Signed Date/Time: 01/25/2023 11:48 AM [facility] Radiology Study observation (narrative) [facility] alth XR Hip - right 3 ViewsOrdere d By: Genoveva Calvo on 01-25-2023 [facility] Work Phone: ABO and Rh group Confirm Nom (Bld)on 01-24-2023 ABO group Nom (Bld) AB [facility] D Ag Ql (RBC) Positive [facility] h [facility] BASIC METABOLIC PANELon 12-0 Anion gap [Moles/Vol] 8 mmol/L Normal 3-13 [facility] Comment on above: Performed By: #### L AB15, [id number], [id number] ####Embedded Case Manager: ASHER MATHWES ([id number])[facility] ([facility])[address] Calcium [Mass/Vol] 8.9 mg/dL Normal 8.4-10.4 [facility] Comment on above: Performed By: #### L 15, [id number], [id number] ####Embedded Case Manager: ASHER MATHEWS ([phone])[facility])[address] Chloride [Moles/Vol] 105 mmol/L Normal 98-107 [facility] Comment on above: Performed By: #### L AB15, [id number], UBC834 ####Embedded Case Manager: ASHER MATHEWS ([phone])[facility] SYSTEM[facility] ([facility])[address] [place] [address] [place] CO2 [Moles/Vol] 25 mmol/L Normal 22-30 [facility] Comment on above: Performed By: #### L AB15, [id number], [id number] ####Embedded Case Manager: ASHER MATHEWS ([id number])[facility] SYSTEM[facility] ([facility])[address] [place] [address] [place] Creatinine [Mass/Vol] 0.73 mg/dL Normal 0.52-1.04 [facility] Comment on above: Performed By: #### L AB15, ZPC764, [id number] ####Embedded Case Manager: ASHER MATHEWS ([id number])[facility] SYSTEM[facility] ([facility])[address] GLOMERULAR FILTRATION RATE ML/MIN/1.73 SQ M.PREDICTED 89.7 mL/min/1.73m*2 Normal >60.0 [facility] Comment on above: Result Comment: Calc ulation based on the Chronic Kidney Disease Epidemiology Collaboration (CKD-EPI) equation refit without adjustment for race Performed By: #### L AB15, BKY695, PJC413 ####Embedded Case Manager: ASHER MATHEWS ([id number])[facility] SYSTEM[facility] ([facility])[address] Glucose [Mass/Vol] 116 mg/dL High 70-100 [facility] Comment on above: Performed By: #### L AB15, SYA858, ZMC225 ####Embedded Case Manager: ASHER MATHEWS ([id number])[facility] ([facility])[address] Potassium [Moles/Vol] 4.3 mmol/L Normal 3.5-5.1 [facility] Comment on above: Performed By: #### L AB15, GRJ653, NQY572 ####Embedded Case Manager: ASHER MATHEWS ([phone])[facility] ([facility])[address] Sodium [Moles/Vol] 137 mmol/L Normal 135-145 [facility] Comment on above: Performed By: #### L AB15, [id number], BAV532 ####Embedded Case Manager: ASHER MATHEWS ([id number])[facility] ([facility])[address] [place] [address] [place] Urea nitrogen [Mass/Vol] 19 mg/dL High 7-17 [facility] Comment on above: Performed By: #### L AB15, STN947, FWS547 ####Embedded Case Manager: ASHER MATHEWS ([id number])[facility] ([facility])[address] BLOOD TYPE AND SCREEN GELon 12-02-2023 ABO GROUPING AB Normal [facility] Comment on above: Performed By: #### L [id number] ####Embedded Case Manager: ASHER MATHEWS ([id number])[facility] BLOOD [place] ([facility])[address] RH TYPE IN BLOOD Positive Normal [facility] Comment on above: Performed By: #### L [id number] ####Embedded Case Manager: ASHER ARIASWETHERSFIELD ([id number])[facility] BLOOD [facility] ([facility])[address] Basic metabolic 1998 panelon 01-24-2023 Anion gap [Moles/Vol] 8 mmol/L 3 - 13 mmol/L [facility] Calcium [Mass/Vol] 8.9 mg/dL 8.4 - 10. 4 mg/dL [facility] Chloride [Moles/Vol] 105 mmol/L 98 - 10 7 mmol/L [facility] CO2 [Moles/Vol] 25 mmol/L 22 - 30 mmol/L [facility] Creatinine [Mass/Vol] 0.73 mg/dL 0.52 - 1.04 mg/dL [facility] GFR/1.73 sq M.predicted MDRD (S/P/Bld) [Vol rate/Area] 89.7 mL/min/{1.73_m2} - PINF [facility] Comment on above: Calculation based on the Chronic Kidney Disease Epidemiology Collaboration (CKD-EPI) equation refit without adjustment for race Glucose [Mass/Vol] 116 mg/dL High 70 - 100 mg/dL [facility] Interpretation and review of laboratory results Abnormal [facility] Potassium [Moles/Vol] 4.3 mmol/L 3.5 - 5.1 mmol/L [facility] Sodium [Moles/Vol] 137 mmol/L 135 - 145 mmol/L [facility] Urea nitrogen [Mass/Vol] 19 mg/dL High 7 - 17 mg/dL [facility] Blood type and Crossmatch pa ana m (Bld)on 01-24-2023 ABO group Nom (Bld) AB [facility] Blood group antibody screen GEL Ql Negative [facility] D Ag Ql (RBC) Positive [facility] h [facility] CBC W Auto Differential pane l (Bld)Ordered By: Winston Magana on 01-24-2023 Basophils (Bld) [#/Vol] 0.1 10*3/uL 0.0 - 0.2 10*3/uL [facility] Basophils/100 WBC (Bld) 0.4 % 0.0 - 2.0 % [facility] Eosinophils (Bld) [#/Vol] 0.2 10*3/uL 0.0 - 0.5 10*3/uL [facility] Eosinophils/100 WBC (Bld) 1.5 % 1.0 - 6.0 % [facility] Erythrocyte distribution width (RBC) [Ratio] 14.7 % High 11.5 - 14.5 % [facility] Hematocrit (Bld) [Volume fraction] 35.6 % 35.0 - 47.0 % [facility] Hemoglobin (Bld) [Mass/Vol] 11.3 g/dL Low 11.7 - 16.0 g/dL [facility] Interpretation and review of laboratory results Abnormal [facility] Lymphocytes (Bld) [#/Vol] 1.7 10*3/uL 1.0 - 4.3 10*3/uL [facility] Lymphocytes/100 WBC (Bld) 11.6 % Low 20.0 - 40.0 % [facility] MCH (RBC) [Entitic mass] 27.0 pg 26.0 - 34.0 pg [facility] MCHC (RBC) [Mass/Vol] 31.7 % Low 32.0 - 36.0 % [facility] MCV (RBC) [Entitic vol] 85.2 fL 80.0 - 98.0 fL [facility] Monocytes (Bld) [#/Vol] 1.0 10*3/uL High 0.0 - 0.8 10*3/uL [facility] Monocytes/100 WBC (Bld) 6.6 % 2.0 - 10.0 % [facility] Neutrophils (Bld) [#/Vol] 11.7 10*3/uL High 1.8 - 7.0 10*3/uL [facility] Neutrophils/100 WBC (Bld) 79.9 % 40.0 - 80.0 % [facility] Nucleated RBC/100 WBC (Bld) [Ratio] 0.0 % [facility] Platelet mean volume (Bld) [Entitic vol] 8.3 fL 7.4 - 12.4 fL [facility] Platelets (Bld) [#/Vol] 292 10*3/uL 140 - 440 10*3/uL [facility] RBC (Bld) [#/Vol] 4.18 10*6/uL 3.8 - 5.20 10*6/uL [facility] WBC (Bld) [#/Vol] 14.6 10*3/uL High 3.6 - 10.7 10*3/uL [facility] CBC WITH AUTO DIFFERENTIALon 01-24-2023 Basophils (Bld) [#/Vol] 0.1 10*3/uL Normal 0.0-0.2 [facility] Comment on above: Performed By: #### L [id number] ####Embedded Case Manager: ASHER MATHEWS ([id number])[facility] [place] ([facility])[address] Basophils/100 WBC (Bld) 0.4 % Normal 0.0-2.0 [facility] Comment on above: Performed By: #### L [id number] ####Embedded Case Manager: ASHER MATHEWS ([id number])[facility] ([facility])[address] Eosinophils (Bld) [#/Vol] 0.2 10*3/uL Normal 0.0-0.5 [facility] Comment on above: Performed By: #### L [id number] ####Embedded Case Manager: ASHER MATHEWS ([id number])[facility] [place] ([facility])[address] Eosinophils/100 WBC (Bld) 1.5 % Normal 1.0-6.0 [facility] Comment on above: Performed By: #### L [id number] ####Embedded Case Manager: ASHER MATHEWS ([id number])[facility] [place] ([facility])[address] Erythrocyte distribution width (RBC) [Ratio] 14.7 % High 11.5-14.5 [facility] Comment on above: Performed By: #### L [id number] ####Embedded Case Manager: ASHER MATHEWS ([id number])[facility] [place] ([facility])[address] ERYTHROCYTE MEAN CORPUSCULAR HEMOGLOBIN CONCENTRATION (G/DL) BY AUTOMATED 31.7 % Low 32.0-36.0 [facility] Comment on above: Performed By: #### L [id number] ####Embedded Case Manager: ASHER MATHEWS ([id number])[facility] ([facility])[address] Hematocrit (Bld) [Volume fraction] 35.6 % Normal 35.0-47.0 [facility] Comment on above: Performed By: #### L [id number] ####Embedded Case Manager: ASHER MATHEWS ([id number])[facility]BDZIL[facility] ([facility])[address] Hemoglobin (Bld) [Mass/Vol] 11.3 g/dL Low 11.7-16.0 [facility] Comment on above: Performed By: #### L [id number] ####Embedded Case Manager: ASHER MATHEWS ([phone])[facility] ([facility])[address] Lymphocytes (Bld) [#/Vol] 1.7 10*3/uL Normal 1.0-4.3 [facility] Comment on above: Performed By: #### L [id number] ####Embedded Case Manager: ASHER MATHEWS ([id number])[facility]BDZIL[facility] ([facility])[address] Lymphocytes/100 WBC (Bld) 11.6 % Low 20.0-40.0 [facility] Comment on above: Performed By: #### L [id number] ####Embedded Case Manager: ASHER MATHEWS ([id number])[facility]BDZIL[facility] ([facility])[address] MCH (RBC) [Entitic mass] 27.0 pg Normal 26.0-34.0 [facility] Comment on above: Performed By: #### L [id number] ####Embedded Case Manager: ASHER JACOBSONLuzBHARTI ([id number])[facility] ([facility])[address] MCV (RBC) [Entitic vol] 85.2 fL Normal 80.0-98.0 [facility] Comment on above: Performed By: #### L [id number] ####Embedded Case Manager: ASHER REID ([id number])[facility] ([facility])[address] Monocytes (Bld) [#/Vol] 1.0 10*3/uL High 0.0-0.8 [facility] Comment on above: Performed By: #### L [id number] ####Embedded Case Manager: ASHER REID ([id number])[facility] ([facility])[address] Monocytes/100 WBC (Bld) 6.6 % Normal 2.0-10.0 S [facility] Comment on above: Performed By: #### L [id number] ####Embedded Case Manager: ASHER REID ([id number])[facility] ([facility])[address] [place] [address] [place] Neutrophils (Bld) [#/Vol] 11.7 10*3/uL High 1.8-7.0 [facility] Comment on above: Performed By: #### L [id number] ####Embedded Case Manager: ASHER ARIASBHARTI ([id number])[facility] ([facility])[address] Neutrophils/100 WBC (Bld) 79.9 % Normal 40.0-80.0 [facility] Comment on above: Performed By: #### L [id number] ####Embedded Case Manager: ASHER ARIASBHARTI ([id number])[facility] ([facility])[address] NRBC (PER 100 WBCS) BY AUTOMATED COUNT 0.0 /100 WBCs Normal 0.0-2.0 [facility] Comment on above: Performed By: #### L [id number] ####Embedded Case Manager: ASHER MATHEWS ([id number])[facility] ([facility])[address] Platelet mean volume (Bld) [Entitic vol] 8.3 fL Normal 7.4-12.4 [facility] Comment on above: Performed By: #### L [id number] ####Embedded Case Manager: ASHER MATHEWS ([id number])[facility] ([facility])[address] Platelets (Bld) [#/Vol] 292 10*3/uL Normal 140-440 [facility] Comment on above: Performed By: #### L [id number] ####Embedded Case Manager: ASHER MATHEWS ([id number])[facility] ([facility])[address] RBC (Bld) [#/Vol] 4.18 10*6/uL Normal 3.8-5.20 [facility] Comment on above: Performed By: #### L [id number] ####Embedded Case Manager: ASHER MATHEWS ([id number])[facility] ([facility])[address] WBC (Bld) [#/Vol] 14.6 10*3/uL High 3.6-10.7 [facility] Comment on above: Performed By: #### L [id number] ####Embedded Case Manager: ASHER MATHEWS ([id number])[facility] ([facility])[address] COVID-19, Flu A/B, and RSV C omboon 01-24-2023 Interpretation and review of laboratory results Normal [facility] CT HEAD WO IV CONTRASTon CT HEAD [...] that showed a r hip fracture. Normal [facility] CT Head WO contraston 2022 No acute intracrania l hemorrhage or territorial infarct. Similar appearance of chronic ischemic findings. Report Dictated on Electronically Signed By: Marin Mack DR Electronically Signed Date/Time: 01/24/2023 2:09 AM [facility] Patient Name: CLARIBEL STOLL : [...] and mastoid air cells remain well aerated. [facility] Marin Mack MD - 01/24/2023 [facility] Name[facility] 1955 [id number] Exam Date/Time: 01/24/2023 01:49 Procedure: CT HEAD [...] Electronically Signed Date/Time: 01/24/2023 2:09 AM EST [facility] Radiology Study observation (narrative) [facility] Kenneth almaraz Consulton 01-24-2023 Consult Ortho Consult Patient: Claribel Stoll Date of : 1955 Acct: [id number] PCP: Morris Carr Date of Admission: 01/24/2023 Date of Service: Pt seen/examined on 01/24/2023 Chief Complaint: Right hip pain History Of Present Illness: 67 y.o. female with PMHx of dementia who presents with right hip pain after a fall from standing. She was sent to the emergency department from her long-term in [place] she is pleasantly demented on exam and able to answer some but not all questions. Reports right hip pain but otherwise denies pain in extremities. PMH of dementia. Lives in long-term. Orthopaedic surgery history: -Prior left hip hemiarthroplasty done at [facility] 11/2021 -Known to Dr. Redman for non-op management of left proximal humerus fracture in 2019 Patient ambulation status: Not clear . Antiplatelets/Anticoag [...] morning (before breakfast)., Disp: , Rfl: Lidocaine ( Lidocaine Patch) 4 % patch, Place 1 [...] Transportation Needs: N (more content not included)... [facility] ECG 12-LEADon 01-24-2023 ECG 12-LEAD IMPRESSION: Sinus rhythm Compared to ECG 03/05/2018 22:44:19 Sinus tachycardia no longer present Electronically Signed On 01-24-2023 2:07:24 EST by Dell Burden [facility] ED Nursing Noteon 01-24-2023 ED Nursing Note Per previous RN , report called. Pt to [facility]. Pt left approx 1040am with [employer] transport. Altagracia Thapa RN 01/24/23 1045 [facility] ED Nursing Note RN introduced her self. Pt on the monitor, call light in reach. Pt declined needs at this time Altagracia Thapa RN 01/24/23 1013 [facility] ED Nursing Note Physicians ETA 2-3 hours Karen Chavis RN 01/24/23 0635 [facility] ED Nursing Note Bed: 33 Expected date: 01/24/23 Expected time: Means of arrival: Comments: [facility] Karen Chavis RN 01/24/23 0048 [facility] ED Provider Noteon ED Provider Note [facility] ED EMERGENCY DEPARTMENT ENCOUNTER Pt Name: Claribel [...] presents to the emergency department patient from long-term. Apparently she fell yesterday and x-ray showed [...] test gait. We are confirming with the long-term if she has had right-sided facial drooping in the past. Reviewing paperwork from long-term she has a history of facial weakness [...] Neutrophils Relati (more content not included)... Normal [facility] IDNon 01-24-2023 IDN Problem: Knowledge Deficit Goal: Patient/family/caregiv er demonstrates understanding of disease process, treatment plan, medications, and discharge instructions Outcome: Progressing Problem: Potential for Compromised Skin Integrity Goal: Skin Integrity is Maintained or Improved Outcome: Progressing Goal: Nutritional status is improving Outcome: Progressing Normal [facility] Laboratory - Chemistry and C hemistry - challengeon 01-24-2023 TSH Qn 2.271 m[IU]/L [facility] Healt h Troponin I.cardiac [Mass/Vol] ng/mL NINF - 0.034 ng/mL [facility] Laboratory - Coagulationon 1 03-27-2022 PT Coag (Bld) [Time] 10.6 s 9.0 - 12.0 s [facility] Laboratory - Microbiology an d Antimicrobial susceptibilityon 01-24-2023 FLUAV RNA JEANA+probe Ql (Resp) Not detected Not Detected [facility] FLUBV RNA JEANA+probe Ql (Resp) Not detected Not Detected [facility] RSV RNA JEANA+probe Ql (Resp) Not detected Not Detected [facility] SARS-CoV-2 (COVID-19) RNA JEANA+probe Ql (Resp) Not detected Not Detected [facility] alth SARS-CoV-2 (COVID-19) RNA JEANA+probe Ql (Unsp spec) Methodology: real-time, RT-PCR The SARS-CoV-2, Flu A/B, and RSV Combo assay is intended for in vitro diagnostic use under the FDA Emergency Use Authorization (EUA). This test has not been FDA cleared or approved. In compliance with this authorization, please visit www.fda.gov/media/1424 35/download or www.fda.gov/media/1424 36/download to access the applicable information sheets. [facility] No Panel Informationon 01-24 P Golden 75 degrees [facility] LA Interval 146 ms [facility] QRS Golden 72 degrees [facility] QRSD Interval 88 ms [facility]alt [facility] QT Interval 388 ms [facility] QTC Interval 452 ms [facility] T Wave Golden 64 degrees [facility] Sinus rhythm Compared to ECG 03/05/2018 22:44:19 Sinus tachycardia no longer present Electronically Signed On 01-24-2023 2:07:24 EST by Dell Burden CV Dell Reed MD - 01/24/2023 IMPRESSION: Sinus rhythm Compared to ECG 03/05/2018 22:44:19 Sinus tachycardia no longer present Electronically Signed On 01-24-2023 2:07:24 EST by Dell Burden [facility] PROTHROMBIN TIMEon INR Coag (PPP) [Relative time] 1.0 {INR} Normal 0.9-1.1 [facility] Comment on above: Result Comment: Shaun [...] Infarction Performed By: #### Greg [id number] #### Embedded Case Manager: ASHER MATHEWS ([phone]) [facility] ([facility]) [address] [place] [address] PT Coag (PPP) [Time] 10.6 s Normal 9.0-12.0 [facility] Comment on above: Performed By: #### Greg [id number] #### Embedded Case Manager: ASHER MATHEWS ([phone]) [facility] ([facility]) [address] [place] [address] PT Coag (Bld) [Time]on 01-24 INR Coag (PPP) [Relative time] 1.0 {INR} 0.9 - 1.1 [facility] Comment on above: Recommended Anticoag ulant Therapy: [...] Interpretation and review of laboratory results Normal [facility] Progress Noteon 01-24-2023 Progress Note Discussed operative [...] MD PGY2 Orthopaedic Surgery 01/24/2023 2:42 PM [facility] SARS-COV-2, FLU A/B, AND RSV COMBOon [...] this authorization, please visit www.fda.gov/media/1424 35/download or www.fda.gov/media/1428 36/download to access the applicable information sheets. Normal [facility] Comment on above: Performed By: #### L [id number] #### Embedded Case Manager: ASHER MATHEWS ([phone]) [facility] ([facility]) [address] [place] [address] [place] THYROID STIMULATING HORMONEo n 01-24-2023 THYROID STIMULATING HORMONE 2.271 uIU/mL Normal 0.465-4.680 [facility] Comment on above: Performed By: #### L [id number], [id number], [id number] ####Embedded Case Manager: ASHER MATHEWS ([phone])[facility] ([facility])[address] [place] [address] [place] TROPONIN Ion 01-24-2023 Troponin I.cardiac [Mass/Vol] ng/mL Normal <0.034 [facility] Comment on above: Result Comment: ELVIA Diaz COMMENTS: Patients with high levels of Biotin oral intake (ie >5 mg/day) may have falsely decreased Troponin levels. Performed By: #### L [id number], [id number], [id number] ####Embedded Case Manager: ASHER MATHEWS ([phone])[facility] ([facility])[address] [place] [address] TSH Qnon 01-24-2023 Interpretation and review of laboratory results Normal [facility] Troponin I.cardiac [Mass/Vol ]on 01-24-2023 Interpretation and review of laboratory results Normal [facility] Patients with high levels of Biotin oral intake (ie >5 mg/day) may have falsely decreased Troponin levels. [facility] Vital signson 01-24-2023 Heart rate 82 /min bpm [facility] XR Chest Single viewon 01-24 No acute consolidati ve process. Report Dictated on Electronically Signed By: Marin Mack DR Electronically Signed Date/Time: 01/24/2023 3:00 AM EST [facility] Patient Name: CLARIBEL STOLL : 1955 Exam Date/Time: 01/24/2023 02:46 Procedure: XR CHEST 1 VIEW Ordering Provider: BURDEN GREGORY Reason For Exam: Cough hypoxia Clinical History: Cough hypoxia Comparison: 03/05/2018 Technique: Single AP radiograph of the chest. Findings: Cardiomediastinal silhouette and pulmonary vasculature are within normal limits. The lungs and pleural spaces are clear. No sizable pneumothorax. Chronic left proximal humeral fracture deformity. [facility] Marin Mack MD - 01/24/2023 Patient Name: [...] DR Electronically Signed Date/Time: 01/24/2023 3:[address] [facility] Radiology Study observation (narrative) [facility] Kenneth alth XR Femur - right 2 Viewson 1 03-27-2022 FINDINGS/IMPRESSION: Redemonstration of right proximal femur fracture. No other fractures or dislocations seen. Report Dictated on Electronically Signed By: Marin Mack DR Electronically Signed Date/Time: 01/24/2023 5:57 AM [facility]IOLOGY [facility] Patient Name: CLARIBEL STOLL : 1955 Exam Date/Time: 01/24/2023 05:51 Procedure: XR FEMUR 2+ VW RIGHT Ordering Provider: GARSIA NARSIMHA Reason For Exam: Operative planning Clinical history: Operative planning COMPARISON: Radiographs from earlier today TECHNIQUE: AP and lateral views of the right femur [facility] Marin Mack MD - 01/24/2023 [...] DR Electronically Signed Date/Time: 01/24/2023 5:[address] [facility] Radiology Study observation (narrative) Gallo Cooper alth XR Hip - right 3 Viewson Mildly displaced rig ht proximal femoral neck fracture. Report Dictated on Workstation: [employer] Electronically Signed By: Marin Mack DR Electronically Signed Date/Time: 01/24/2023 1:44 AM [facility] [employer] Patient Name: CLARIBEL STOLL : 1955 [...] with associated foreshortening. Moderate right hip osteoarthrosis. [facility] Marin Mack MD - 01/24/2023 Patient [...] DR Electronically Signed Date/Time: 01/24/2023 1:[address] [facility] [employer] Radiology Study observation (narrative) Yusefdeborah Kenneth alth XR Hip - right 3 ViewsOrdere d By: Marin Mack on 01-24-2023 [facility] [employer] Work Phone: Amorphous sediment detection in urine sediment by light microscopyOrdered By: Morris Carr on 01-23-2023 Amorphous sediment LM Ql (Urine sed) 1+ [facility] Basophil percentageOrdered B y: Morris Carr on 01-23-2023 Chloride [Moles/Vol] 110 mmol/L 98-107 [facility] Glucose [Mass/Vol] 86 mg/dL 74-106 [facility] Potassium [Moles/Vol] 3.9 mmol/L 3.5-5.1 [facility] Sodium [Moles/Vol] 140 mmol/L 136-145 [facility] WBC (Bld) [#/Vol] 7.2 10*3/uL 4.4-11.0 [facility] Basophil percentage 0-5 SEEN /hpf 0-5 [facility] Bilirubin Test strip Ql (U)O rdered By: Morris Carr on 01-23-2023 Bilirubin Ql (U) Negative Negative [facility] Blood erythrocytes count (nu mber/volume)Ordered By: Morris Carr on 01-23-2023 RBC (Bld) [#/Vol] 3.89 10*6/uL 4.2-5.4 [facility] Blood hemoglobin measurement (mass/volume)Ordered By: Morris Carr on 01-23-2023 Hemoglobin (Bld) [Mass/Vol] 10.6 g/dL 12.0-15.0 [facility] Blood platelet mean volumeOr dered By: Morris Carr on 01-23-2023 Platelet mean volume (Bld) [Entitic vol] 10.6 fL 6.2-12.0 [facility] Determination of erythrocyte mean corpuscular volume (MCV)Ordered By: Morris Carr on 01-23-2023 MCV (RBC) [Entitic vol] 91.0 fL 81-99 [facility] Hematocrit Auto (Bld) [Volum e fraction]Ordered By: Morris Carr on 01-23-2023 Hematocrit (Bld) [Volume fraction] 35.4 % 37-47 [facility] Ketones Test strip Ql (U)Ord ered By: Morris Carr on 01-23-2023 Ketones Ql (U) 5 mg/dl Negative [facility] Laboratory - Chemistry and C hemistry - challengeOrdered By: Morris Carr on 01-23-2023 CO2 [Moles/Vol] 29.0 mmol/L 21.0-32.0 [facility] Urea nitrogen/Creatinine [Mass ratio] 16.7 mg/mg 10-20 [facility] Laboratory - Hematology and Cell countsOrdered By: Morris Carr on 01-23-2023 Erythrocyte distribution width (RBC) [Entitic vol] 47.7 fL 35.1-43.9 [facility] Erythrocyte distribution width (RBC) [Ratio] 14.2 % 11.6-14.6 [facility] MCH (RBC) [Entitic mass] 27.2 pg 27.0-32.0 [facility] MCHC Auto (RBC) [Mass/Vol]Or dered By: Morris Carr on 01-23-2023 MCHC (RBC) [Mass/Vol] 29.9 g/dL 32-36 [facility] Mucus LM Ql (Urine sed)Order ed By: Morris Carr on 01-23-2023 Mucus Ql (Urine sed) 0 SEEN /hpf [facility] Nitrite Test strip Ql (U)Ord ered By: Morris Carr on 01-23-2023 Nitrite Ql (U) Positive Negative [facility] No Panel InformationOrdered By: Morris Carr on 01-23-2023 Estimated GFR (MDRD) Amer 95 mL/min >60 [facility] Comment on above: GFR Calc Estimated GFR (MDRD) Non-Af Amer 78 mL/min >60 [facility] Comment on above: Non- GFR Calc Thyroid Stimulating Hormone (TSH) 2.22 uIU/mL 0.358-3.74 [facility] Platelets bldOrdered By: Deshaun Carr on 01-23-2023 Platelets (Bld) [#/Vol] 307 10*3/uL 150-450 [facility] Protein Test strip Ql (U)Ord ered By: Morris Carr on 01-23-2023 Protein Ql (U) 15 mg/dl Negative [facility] Serum or plasma calcium raul urement (mass/volume)Ordered By: Morris Carr on 01-23-2023 Calcium [Mass/Vol] 8.8 mg/dL 8.5-10.1 [facility] Serum or plasma creatinine m easurement (mass/volume)Ordered By: Morris Carr on 01-23-2023 Creatinine [Mass/Vol] 0.78 mg/dL 0.55-1.02 [facility] Comment on above: The validity of the calculated GFR & GFRAA in patients over 70 years has not been determined. Clinical correlation is essential. Serum or plasma urea nitroge n measurement (mass/volume)Ordered By: Morris Carr on 01-23-2023 Urea nitrogen [Mass/Vol] 13 mg/dL 7-18 [facility] Squamous epithelial cells de tection in urine sediment by light microscopyOrdered By: Morris Carr on 01-23-2023 Epithelial cells.squamous LM Ql (Urine sed) 0 SEEN /hpf 5-10 [facility] Thin prep Papanicolaou smear with manual screeningOrdered By: Morris Carr on 01-23-2023 Thin prep Papanicolaou smear with manual screening 1 5-15 [facility] Urine blood detectionOrdered By: Morris Carr on 01-23-2023 RBC Ql (U) Negative Negative [facility] RBC Ql (U) 0 SEEN /hpf 0-5 [facility] Urine clarityOrdered By: Deshaun Carr on 01-23-2023 Clarity (U) Clear Clear [facility] Urine color determinationOrd ered By: Morris Carr on 01-23-2023 Color (U) Yellow Yellow [facility] Urine glucose detectionOrder ed By: Morris Carr on 01-23-2023 Glucose Ql (U) Normal mg/dl Normal [facility] Urine leukocyte esterase det ection by dipstickOrdered By: Morris Carr on 01-23-2023 Leukocyte esterase Test strip Ql (U) 25 /ul Negative [facility] Urine pHOrdered By: Morris paulino on 01-23-2023 pH (U) 6.0 [pH] 5.0 - 8.0 [facility] Urine sediment bacteria coun t by microscopy (number/high power field)Ordered By: Morris Carr on 01-23-2023 Bacteria LM.HPF (Urine sed) [#/Area] 0 /[HPF] None Seen [facility] Urine specific gravity measu rementOrdered By: Morris Carr on 01-23-2023 Specific gravity (U) [Rel density] 1.020 1.002-1.030 [facility] Urobilinogen Auto test strip Ql (U)Ordered By: Morris Carr on 01-23-2023 Urobilinogen Ql (U) 1 mg/dl Normal [facility] Basophil percentageOrdered B y: Morris Carr on 12-04-2022 Chloride [Moles/Vol] 110 mmol/L 98-107 [facility] Glucose [Mass/Vol] 95 mg/dL 74-106 [facility] Potassium [Moles/Vol] 4.0 mmol/L 3.5-5.1 [facility] Sodium [Moles/Vol] 142 mmol/L 136-145 [facility] Laboratory - Chemistry and C hemistry - challengeOrdered By: Morris Carr on 12-04-2022 CO2 [Moles/Vol] 29.0 mmol/L 21.0-32.0 [facility] Urea nitrogen/Creatinine [Mass ratio] 18.4 mg/mg 10-20 [facility] No Panel InformationOrdered By: Morris Carr on 12-04-2022 Estimated GFR (MDRD) Amer 97 mL/min >60 [facility] Comment on above: GFR Calc Estimated GFR (MDRD) Non-Af Amer 81 mL/min >60 [facility] Comment on above: Non- GFR Calc Serum or plasma calcium raul urement (mass/volume)Ordered By: Morris Carr on 12-04-2022 Calcium [Mass/Vol] 8.5 mg/dL 8.5-10.1 [facility] Serum or plasma creatinine m easurement (mass/volume)Ordered By: Morris Carr on 12-04-2022 Creatinine [Mass/Vol] 0.76 mg/dL 0.55-1.02 [facility] Comment on above: The validity of the calculated GFR & GFRAA in patients over 70 years has not been determined. Clinical correlation is essential. Serum or plasma urea nitroge n measurement (mass/volume)Ordered By: Morris Carr on 12-04-2022 Urea nitrogen [Mass/Vol] 14 mg/dL 7-18 [facility] Thin prep Papanicolaou smear with manual screeningOrdered By: Morris Carr on 12-04-2022 Thin prep Papanicolaou smear with manual screening 3 5-15 [facility] Basophil percentageOrdered B y: Morris Carr on 12-01-2022 Bilirubin [Mass/Vol] 0.40 mg/dL 0.20-1.00 [facility] Comment on above: For patients on eltr ombopag therapy, use of Dimension May TBIL is not recommended. Chloride [Moles/Vol] 107 mmol/L 98-107 [facility] Cholesterol [Mass/Vol] 121 mg/dL <200 [facility] Comment on above: <200 mg/dL Desirable 200-240 mg/dL Borderline >240 mg/dL High Risk Glucose [Mass/Vol] 87 mg/dL 74-106 [facility] Potassium [Moles/Vol] 3.8 mmol/L 3.5-5.1 [facility] Protein [Mass/Vol] 7.1 g/dL 6.4-8.2 [facility] Sodium [Moles/Vol] 140 mmol/L 136-145 [facility] Triglyceride [Mass/Vol] 49 mg/dL <199 [facility] Comment on above: The drugs N-Acetylcy steine and Metamizole may falsely depress this assay.Serum Triglycerides Reference Interval Normal <150 mg/dL Borderline high 150 - 199 mg/dL High 200 - 499 mg/dL Very High > or = 500 mg/dL Direct bilirubinOrdered By: Morris Carr on 12-01-2022 Bilirubin.direct [Mass/Vol] 0.16 mg/dL 0.00-0.30 [facility] Laboratory - Chemistry and C hemistry - challengeOrdered By: Morris Carr on 12-01-2022 ALP [Catalytic activity/Vol] 85 U/L 45-117 [facility] ALT [Catalytic activity/Vol] 11 U/L 13-56 [facility] CO2 [Moles/Vol] 27.0 mmol/L 21.0-32.0 [facility] Globulin (S) [Mass/Vol] 3.9 g/dL 2.2-4.2 [facility] Urea nitrogen/Creatinine [Mass ratio] 16.0 mg/mg 10-20 [facility] No Panel InformationOrdered By: Morris Carr on 12-01-2022 Estimated GFR (MDRD) Amer 90 mL/min >60 [facility] Comment on above: GFR Calc Estimated GFR (MDRD) Non-Af Amer 74 mL/min >60 [facility] Comment on above: Non- GFR Calc Serum or plasma albumin raul urement (mass/volume)Ordered By: Morris Carr on 12-01-2022 Albumin [Mass/Vol] 3.2 g/dL 3.2-5.0 [facility] Serum or plasma calcium raul urement (mass/volume)Ordered By: Morris Carr on 12-01-2022 Calcium [Mass/Vol] 8.7 mg/dL 8.5-10.1 [facility] Serum or plasma cholesterol in HDL measurement (mass/volume)Ordered By: Morris Carr on 12-01-2022 Cholesterol in HDL [Mass/Vol] 64 mg/dL >40 [facility] Comment on above: The drugs N-Acetylcy steine and Metamizole may falsely depress this assay. Reference Range HDL <40 mg/dL Low HDL Cholesterol HDL >or= 60 mg/dL High HDL Cholesterol Serum or plasma cholesterol in VLDL measurement (mass/volume)Ordered By: Morris Carr on 12-01-2022 Cholesterol in VLDL [Mass/Vol] 10 mg/dL 5-40 [facility] Serum or plasma creatinine m easurement (mass/volume)Ordered By: Morris Carr on 12-01-2022 Creatinine [Mass/Vol] 0.81 mg/dL 0.55-1.02 [facility] Comment on above: The validity of the calculated GFR & GFRAA in patients over 70 years has not been determined. Clinical correlation is essential. Serum or plasma low density lipoprotein (LDL) cholesterol measurement (mass/volume)Ordered By: Morris Carr on 12-01-2022 Cholesterol in LDL [Mass/Vol] 47 mg/dL 0-130 [facility] Serum or plasma urea nitroge n measurement (mass/volume)Ordered By: Morris Carr on 12-01-2022 Urea nitrogen [Mass/Vol] 13 mg/dL 7-18 [facility] Thin prep Papanicolaou smear with manual screeningOrdered By: Morris Carr on 12-01-2022 Thin prep Papanicolaou smear with manual screening 8 U/L 15-37 [facility] Thin prep Papanicolaou smear with manual screening 6 -15 [facility] CNOVon 01-27-2022 CNOV Office Visit ([id number] ) CLARIBEL STOLL ([id number]) 1955 F Date Time Provider Department 01/27/22 [...] has been working on ambulation at the long-term. REVIEW OF SYSTEMS: MUSCULOSKELETAL: Negative for joint [...] Take 500 mg by mouth twice daily. kpfczm-gvekdkxo-aibzqe e (CREON 6) 6,000-19,000 -30,000 unit delayed [...] [S72.012D] Order(s):XR HIP 2V AP/LAT LEFT (AK,FL,ME) [1550304] Order #: [id number] Prescriptions as of 01/27/2022 - calcium polycarbophil [...] 500 mg by mouth twice daily. - knxhfn-jslyxzka-fghoyx e (CREON 6) 6,000-19,000 -30,000 unit delayed [...] [S42*05/10/2018 Hypona (more content not included)... Normal [facility] Basophil percentageon 2021 Chloride [Moles/Vol] 108 mmol/L 98-107 [facility] Work Phone: Glucose [Mass/Vol] 100 mg/dL 74-106 [facility] Work Phone: Comment on above: Fasting Glucose resu lt from 100 to 125 mg/dL suggests IMPAIRED HOMEOSTASIS per A.D.A. criteria. Potassium [Moles/Vol] 4.3 mmol/L 3.5-5.1 [facility] Work Phone: Sodium [Moles/Vol] 141 mmol/L 136-145 [facility] Work Phone: Laboratory - Chemistry and C hemistry - challengeon 01-10-2022 CO2 [Moles/Vol] 28.0 mmol/L 21.0-32.0 [facility] Work Phone: Urea nitrogen/Creatinine [Mass ratio] 15.4 mg/mg 10-20 [facility] Work Phone: No Panel Informationon 01-10 Estimated GFR (MDRD) Amer 105 mL/min >60 [facility] Work Phone: Comment on above: GFR Calc Estimated GFR (MDRD) Non-Af Amer 87 mL/min >60 [facility] Work Phone: Comment on above: Non- GFR Calc Serum or plasma calcium raul urement (mass/volume)on 01-10-2022 Calcium [Mass/Vol] 9.1 mg/dL 8.5-10.1 [facility] Work Phone: Serum or plasma creatinine m easurement (mass/volume)on 01-10-2022 Creatinine [Mass/Vol] 0.72 mg/dL 0.55-1.02 [facility] Work Phone: Comment on above: The validity of the calculated GFR & GFRAA in patients over 70 years has not been determined. Clinical correlation is essential. Serum or plasma urea nitroge n measurement (mass/volume)on 01-10-2022 Urea nitrogen [Mass/Vol] 11 mg/dL - [facility] Work Phone: Thin prep Papanicolaou smear with manual screeningon 01-10-2022 Thin prep Papanicolaou smear with manual screening 5 5-15 [facility] Work Phone: Basophil percentageon 2021 Chloride [Moles/Vol] 103 mmol/L 98-107 [facility] Work Phone: [phone] Cholesterol [Mass/Vol] mg/dL <200 [facility] Work Phone: Comment on above: <200 mg/dL Desirable 200-240 mg/dL Borderline >240 mg/dL High Risk Glucose [Mass/Vol] 104 mg/dL 74-106 [facility] Work Phone: [phone] Comment on above: Fasting Glucose resu lt from 100 to 125 mg/dL suggests IMPAIRED HOMEOSTASIS per A.D.A. criteria. Potassium [Moles/Vol] 4.4 mmol/L 3.5-5.1 [facility] Work Phone: [phone] Sodium [Moles/Vol] 138 mmol/L 136-145 [facility] Work Phone: [phone] Triglyceride [Mass/Vol] 128 mg/dL <199 [facility] Work Phone: [phone] Comment on above: The drugs N-Acetylcy steine and Metamizole may falsely depress this assay.Serum Triglycerides Reference Interval Normal <150 mg/dL Borderline high 150 - 199 mg/dL High 200 - 499 mg/dL Very High > or = 500 mg/dL WBC (Bld) [#/Vol] 12.0 10*3/uL 4.4-11.0 [facility] Work Phone: [phone] Blood erythrocytes count (nu mber/volume)on 12-28-2021 RBC (Bld) [#/Vol] 3.10 10*6/uL 4.2-5.4 [facility] Work Phone: [phone] Blood hemoglobin measurement (mass/volume)on 12-28-2021 Hemoglobin (Bld) [Mass/Vol] 9.0 g/dL 12.0-15.0 [facility] Work Phone: [phone] Blood platelet mean volumeon 12-28-2021 Platelet mean volume (Bld) [Entitic vol] 9.6 fL 6.2-12.0 [facility] Work Phone: [phone] Determination of erythrocyte mean corpuscular volume (MCV)on 12-28-2021 MCV (RBC) [Entitic vol] 94.2 fL 81-99 [facility] Work Phone: [phone] Hematocrit Auto (Bld) [Volum e fraction]on 12-28-2021 Hematocrit (Bld) [Volume fraction] 29.2 % 37-47 [facility] Work Phone: Laboratory - Chemistry and C hemistry - challengeon 12-28-2021 CO2 [Moles/Vol] 29.0 mmol/L 21.0-32.0 [facility] Work Phone: Urea nitrogen/Creatinine [Mass ratio] 16.3 mg/mg 10-20 [facility] Work Phone: [phone] Laboratory - Hematology and Cell countson 12-28-2021 Erythrocyte distribution width (RBC) [Entitic vol] 46.6 fL 35.1-43.9 [facility] Work Phone: Erythrocyte distribution width (RBC) [Ratio] 13.6 % 11.6-14.6 [facility] Work Phone: MCH (RBC) [Entitic mass] 29.0 pg 27.0-32.0 [facility] Work Phone: [phone] MCHC Auto (RBC) [Mass/Vol]on 12-28-2021 MCHC (RBC) [Mass/Vol] 30.8 g/dL 32-36 [facility] Work Phone: No Panel Informationon 12-28 Estimated GFR (MDRD) Amer 46 mL/min >60 [facility] Work Phone: Comment on above: GFR Calc Estimated GFR (MDRD) Non-Af Amer 38 mL/min >60 [facility] Work Phone: [phone] Comment on above: Non- GFR Calc Platelets bldon 12-28-2021 Platelets (Bld) [#/Vol] 590 10*3/uL 150-450 [facility] Work Phone: [phone] Serum or plasma calcium raul urement (mass/volume)on 12-28-2021 Calcium [Mass/Vol] 9.0 mg/dL 8.5-10.1 [facility] Work Phone: [phone] Serum or plasma cholesterol in HDL measurement (mass/volume)on 12-28-2021 Cholesterol in HDL [Mass/Vol] 12 mg/dL >40 [facility] Work Phone: Comment on above: The drugs N-Acetylcy steine and Metamizole may falsely depress this assay. Reference Range HDL <40 mg/dL Low HDL Cholesterol HDL >or= 60 mg/dL High HDL Cholesterol Serum or plasma cholesterol in VLDL measurement (mass/volume)on 12-28-2021 Cholesterol in VLDL [Mass/Vol] 26 mg/dL 5-40 [facility] Work Phone: Serum or plasma creatinine m easurement (mass/volume)on 12-28-2021 Creatinine [Mass/Vol] 1.47 mg/dL 0.55-1.02 [facility] Work Phone: Comment on above: The validity of the calculated GFR & GFRAA in patients over 70 years has not been determined. Clinical correlation is essential. Serum or plasma low density lipoprotein (LDL) cholesterol measurement (mass/volume)on 12-28-2021 Cholesterol in LDL [Mass/Vol] TNP [facility] Work Phone: Comment on above: Test not performed Serum or plasma urea nitroge n measurement (mass/volume)on 12-28-2021 Urea nitrogen [Mass/Vol] 24 mg/dL 7-18 [facility] Work Phone: Thin prep Papanicolaou smear with manual screeningon 12-28-2021 Thin prep Papanicolaou smear with manual screening 6 5-15 [facility] Work Phone: Basic metabolic 2000 panelon 12-24-2021 Anion gap [Moles/Vol] 10 mmol/L Normal 9-18 [facility] Comment on above: Order Comment: Speci men Type: BLOOD SPECIMENOrdering Facility: [facility] Address: [address] [place] [id number] Performed By: #### 2 4321-2 ####[facility] LABORATORYCLIA [id number] [place] [address] [place] Calcium [Mass/Vol] 9.2 mg/dL Normal 8.5-10.2 [facility] Comment on above: Order Comment: Speci men Type: BLOOD SPECIMENOrdering Facility: [facility] Address: [address] [address] Performed By: #### 2 4321-2 ####[facility] LABORATORYCLIA [id number] [address] OF [facility] Chloride [Moles/Vol] 102 mmol/L Normal 97-105 [facility] Comment on above: Order Comment: Speci men Type: BLOOD SPECIMENOrdering Facility: [facility] Address: [address] [place] [address] Performed By: #### 2 4321-2 ####[facility] LABORATORYCLIA [id number] [address] OF [place] CO2 [Moles/Vol] 27 mmol/L Normal 22-30 [facility] Comment on above: Order Comment: Speci men Type: BLOOD SPECIMENOrdering Facility: [facility] Address: [address] [place] [address] Performed By: #### 2 4321-2 ####[facility] LABORATORYCLIA [id number] [address] OF [facility] Creatinine [Mass/Vol] 0.85 mg/dL Normal 0.58-0.96 [facility] Comment on above: Order Comment: Speci men Type: BLOOD SPECIMENOrdering Facility: [facility] Address: [address] [place] [address] Performed By: #### 2 4321-2 ####[facility] LABORATORYCLIA [id number] [address] ESTIMATED GLOMERULAR FILTRATION RATE 75 mL/min/1.73m??? Normal >=60 [facility] Comment on above: Order Comment: Speci men Type: BLOOD SPECIMENOrdering Facility: [facility] Address: [address] [place] [address] Result Comment: Jessa mated Glomerular Filtration Rate [...] actual GFR. Performed By: #### 2 4321-2 ####[facility] LABORATORYCLIA [id number] [place] [address] [place] Glucose [Mass/Vol] 96 mg/dL Normal 74-99 [facility] Comment on above: Order Comment: Kinsey herrera Type: BLOOD SPECIMENOrdering Facility: [facility] Address: [address] [place] [address] Result Comment: The [place] Diabetes Association (ADA) provides guidance for cutoff [...] Standards of Medical Care in Diabetes 2016, [place] Diabetes Association. Diabetes Care. 2016.39(Suppl 1). Performed By: #### 2 4321-2 ####[facility] LABORATORYCLIA [id number] [place] [address] [place] Potassium [Moles/Vol] 3.8 mmol/L Normal 3.7-5.1 [facility] Comment on above: Order Comment: Kinsey herrera Type: BLOOD SPECIMENOrdering Facility: [facility] Address: [address] [address] Performed By: #### 2 4321-2 ####[facility] LABORATORYCLIA [id number] [place] [address] [place] Sodium [Moles/Vol] 139 mmol/L Normal 136-144 [facility] Comment on above: Order Comment: Kinsey herrera Type: BLOOD SPECIMENOrdering Facility: [facility] Address: [address] [address] Performed By: #### 2 4321-2 ####[facility] LABORATORYCLIA [id number] [place] [address] [place] Urea nitrogen [Mass/Vol] 7 mg/dL Normal 7-21 [facility] Comment on above: Order Comment: Speci men Type: BLOOD SPECIMENOrdering Facility: [facility] Address: [address] [place], [place] [address] Performed By: #### 2 4321-2 ####[facility] LABORATORYCLIA [id number] [place] [address] [place] CASE MANAGEMon 12-24-2021 CASE MANAGEM HNO ID: [id number] Author: AZEB Simeon Service: ? Author Type: Lift Operator Type: Care Mgt Progress Note Filed: 12/24/2021 4:30 PM Note Text: CARE MANAGEMENT DISCHARGE NOTE SERVICE DATE: 12/24/2021 SERVICE TIME: 4:22 PM LOS: 11 days Admission Date: 12/13/2021 DISCHARGE ARRANGEMENT (list agency and phone number) [facility]ement[facility] Was an expedited discharge program used?: No Provider Name: [facility] CAREGIVER ASSESSMENT: Caregiver is ready, willing and able to meet the patient's needs as recommended by the inter-professional team:: Yes Patient's transition needs and plan for meeting these needs: DC return to [facility] HANDOFF COMMUNICATION: Handoff to: Other Caregiver Other Caregiver Name/Phone: [facility] TRANSPORTATION ARRANGEMENTS: Transportation Arrangements: Ambulance Transportation Agency and Phone #:: [facility] [place] [facility] [phone] / [phone] Date of Trip: 12/24/21 Time of Trip: 1929 Type of Service: BLS Non-emergency Is Patient Medicaid Pending?: No Was transportation financial coverage discussed with family?: 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 Financial Care Management Responsibility: None ADDITIONAL CONTACT RESOURCES: CM spoke with Pt's insurance and the SNF this date to confirm that Pt's insurance is [employer] and is able to return to [facility] today. CM left message for Pt's family, Garry and Missy. There are no dc concerns. Transport arranged for 1929. DC paperwork attached to careport. Bedside nurse updated. DC packet with chart. SIGNATURE: AZEB Simeon PATIENT NAME: Claribel Stoll DATE: December 24, 2021 TIME: 4:22 PM PAGER/CONTACT #: [phone] Normal [facility] CBC W Auto Differential pane l (Bld)on 12-24-2021 Basophils (Bld) [#/Vol] 0.09 10*3/uL Normal <0.11 [facility] Comment on above: Order Comment: Speci men Type: BLOOD SPECIMEN [facility] Address: [address] [place] [address] Performed By: #### T SCR #### [facility] CLIA [id number] [address] Basophils/100 WBC (Bld) 0.7 % Normal A [facility] Comment on above: Order Comment: Speci men Type: BLOOD SPECIMEN [facility] Address: [address] [place] [address] Performed By: #### T SCR #### [facility] CLIA [id number] [address] Differential cell count method Nom (Bld) Auto Normal [facility] Comment on above: Order Comment: Speci men Type: BLOOD SPECIMEN [facility] Address: [address] [place] [address] Performed By: #### T SCR #### [facility] CLIA [id number] [address] STATES OF [facility] Eosinophils (Bld) [#/Vol] 0.40 10*3/uL Normal <0.46 [facility] Comment on above: Order Comment: Speci men Type: BLOOD SPECIMEN [facility] Address: [address] [address] Performed By: #### T SCR #### [facility] CLIA [id number] [address] [place] Eosinophils/100 WBC (Bld) 3.1 % Normal [facility] Comment on above: Order Comment: Speci men Type: BLOOD SPECIMEN [facility] Address: [address] [place] [address] Performed By: #### T SCR #### [facility] CLIA [id number] [address] Erythrocyte distribution width (RBC) [Ratio] 13.8 % Normal 11.5-15.0 [facility] Comment on above: Order Comment: Speci men Type: BLOOD SPECIMEN [facility] Address: [address] [place] [address] Performed By: #### T SCR #### [facility] CLIA [id number] [address] Hematocrit (Bld) [Volume fraction] 31.7 % Low 36.0-46.0 [facility] Comment on above: Order Comment: Speci men Type: BLOOD SPECIMEN [facility] Address: [address] [place] [address] Performed By: #### T SCR #### [facility] CLIA [id number] [address] Hemoglobin (Bld) [Mass/Vol] 9.8 g/dL Low 11.5-15.5 [facility] Comment on above: Order Comment: Speci men Type: BLOOD SPECIMEN [facility] Address: [address] [place] [address] Performed By: #### T SCR #### [facility] CLIA [id number] [address] Immature granulocytes (Bld) [#/Vol] 0.23 10*3/uL High <0.10 [facility] Comment on above: Order Comment: Speci men Type: BLOOD SPECIMEN [facility] Address: [address] [place] [address] Performed By: #### T SCR #### [facility] CLIA [id number] [address] Immature granulocytes/100 WBC (Bld) 1.8 % Normal [facility] Comment on above: Order Comment: Speci men Type: BLOOD SPECIMEN [facility] Address: [address] [place] [address] Performed By: #### T SCR #### [facility] CLIA [id number] [address] Lymphocytes (Bld) [#/Vol] 4.60 10*3/uL High 1.00-4.00 [facility] Comment on above: Order Comment: Speci men Type: BLOOD SPECIMEN [facility] Address: [address] [place] [address] Performed By: #### T SCR #### [facility] CLIA [id number] [address] Lymphocytes/100 WBC (Bld) 35.2 % Normal [facility] Comment on above: Order Comment: Speci men Type: BLOOD SPECIMEN [facility] Address: [address] [place] [address] Performed By: #### T SCR #### [facility] CLIA [id number] [address] MCH (RBC) [Entitic mass] 29.0 pg Normal 26.0-34.0 [facility] Comment on above: Order Comment: Speci men Type: BLOOD SPECIMEN [facility] Address: [address] [place] [address] Performed By: #### T SCR #### [facility] CLIA [id number] [address] MCHC (RBC) [Mass/Vol] 30.9 g/dL Normal 30.5-36.0 [facility] Comment on above: Order Comment: Speci men Type: BLOOD SPECIMEN [facility] Address: [address] [place] [address] Performed By: #### T SCR #### [facility] CLIA [id number] [address] MCV (RBC) [Entitic vol] 93.8 fL Normal 80.0-100.[address] [facility] Comment on above: Order Comment: Speci men Type: BLOOD SPECIMEN [facility] Address: [address] [place] [address] Performed By: #### T SCR #### [facility] CLIA [id number] [address] Monocytes (Bld) [#/Vol] 1.21 10*3/uL High <0.87 [facility] Comment on above: Order Comment: Speci men Type: BLOOD SPECIMEN [facility] Address: [address] [place] [address] Performed By: #### T SCR #### [facility] CLIA [id number] [address] Monocytes/100 WBC (Bld) 9.3 % Normal A [facility] Comment on above: Order Comment: Speci men Type: BLOOD SPECIMEN [facility] Address: [address] [place] [address] Performed By: #### T SCR #### [facility] CLIA [id number] [address] [place] Neutrophils (Bld) [#/Vol] 6.53 10*3/uL Normal 1.45-7.50 [facility] Comment on above: Order Comment: Speci men Type: BLOOD SPECIMEN [facility] Address: [address] [place] [address] Performed By: #### T SCR #### [facility] CLIA [id number] [address] Neutrophils/100 WBC (Bld) 49.9 % Normal [facility] Comment on above: Order Comment: Speci men Type: BLOOD SPECIMEN [facility] Address: [address] [place] [address] Performed By: #### T SCR #### [facility] CLIA [id number] [address] Nucleated RBC (Bld) [#/Vol] 0.03 10*3/uL High <0.01 [facility] Comment on above: Order Comment: Speci men Type: BLOOD SPECIMEN [facility] Address: [address] [place] [address] Performed By: #### T SCR #### [facility] CLIA [id number] [address] Nucleated RBC/100 WBC (Bld) [Ratio] 0.2 /100 WBC Normal [facility] Comment on above: Order Comment: Speci men Type: BLOOD SPECIMEN [facility] Address: [address] [place] [address] Performed By: #### T SCR #### [facility] CLIA [id number] [address] [place] Platelet mean volume (Bld) [Entitic vol] 8.7 fL Low 9.0-12.7 [facility] Comment on above: Order Comment: Speci men Type: BLOOD SPECIMEN [facility] Address: [address] [place] [address] Performed By: #### T SCR #### [facility] CLIA [id number] [address] [place] Platelets (Bld) [#/Vol] 557 10*3/uL High 150-400 [facility] Comment on above: Order Comment: Speci men Type: BLOOD SPECIMEN [facility] Address: [address] [place] [address] Performed By: #### T SCR #### [facility] CLIA [id number] [address] RBC (Bld) [#/Vol] 3.38 10*6/uL Low 3.90-5.20 [facility] Comment on above: Order Comment: Kinsey herrera Type: BLOOD SPECIMEN [facility] Address: [address] [place] [address] Performed By: #### T SCR #### [facility] CLIA [id number] [address] WBC (Bld) [#/Vol] 13.06 10*3/uL High 3.70-11.00 [facility] Comment on above: Order Comment: Kinsey herrera Type: BLOOD SPECIMEN [facility] Address: [address] [place] [address] Performed By: #### T SCR #### [facility] CLIA [id number] [address] CNDSon 12-24-2021 [facility] HNO ID: [id number] Author: Jocelyne Melton APRN.HOST/HOSTESS RESTAURANT Service: Orthopaedic Surgery Author Type: Nurse Practitioner [...] up appointment with Discharge Disposition Discharge Disposition: [facility] - Less than 30 Days Activity When You Leave the Hospital Other: Weight bearing as tolerated left lower extremity Diet Instructions Resume your pre-hospital diet For Pain When You Leave the Hospital Continue taking previously prescribed pain medications as directed If you become constipated, you may use any qyjh-toq-zcxwauu treatment such as Milk of Magnesia, Sennakot, Prune Juice, Suppositories, etc. in addition to the stool softener/fiber supplement No alcohol or driving while on pain medication Use acetaminophen (Tylenol) as recommended on the bottle Use ibuprofen (Motrin, Advil) as recommended on the bottle Use the dispensed medication (see prescription) You should use an feqs-ktw-fbpvznk stool softener (Docusate sodium) and/or a fiber [...] 101F FOLLOW-UP APPOINTMENTS ALREADY SCHEDULED WITH [facility]: No future appointments. ALLERGIES No Known Allergies DISCHARGE MEDICATION: Current Discharge Medication List START taking these medications oxyCODONE IR (ROXICODONE) 5 mg Take 5 mg by mouth every 6 hours as needed. Qty: 4 tablet Refills: 0 Associated Diagnoses:Closed fracture of neck of left femur, initial encounter ([facility]) CONTINUE these medications which have NOT CHANGED [...] Take 500 mg by mouth twice daily. zomoss-kvpmzxsj-qwsisq e (CREON 6) 6,000-19,000 -30,000 unit delayed release capsule Take by mouth twice daily with meals. Please administer with snacks- and with snacks 3xday (more content not included)... Normal [facility] SARS-CoV-2 RNA Resp Ql JEANA+p [place] 12-24-2021 SARS-CoV-2 (COVID-19) RNA JEANA+probe Ql (Resp) COVID 19 RESULT: SARS-CoV-2 (Agent of COVID-19) Not Detected by RT-PCR or equivalent method. This test has been authorized by FDA under an Emergency Use Authorization (EUA). Normal [facility] Comment on above: Performed By: #### 9 4500-6 ####[facility] LABORATORYCLIA [id number] [place] [address] [place] THERAPY NTon 12-24-2021 THERAPY NT HNO ID: [id number] Author: Jesus Enrique PTA Service: Physical Therapy Author Type: Lifts And Cranes Inspector Type: Therapy (PT/OT/Speech/Resp) Filed: 12/24/2021 2:25 PM Note Text: Attestation signed by Romero Harley PT at 12/24/2021 3:52 PM I reviewed and agree with the documentation corresponding to this therapy visit. SIGNATURE: Romero Harley PT DATE: December 24, 2021 TIME: 3:52 PM Physical Therapy Treatment SERVICE DATE: 12/24/2021 SERVICE TIME: 1351 to 1414 ROOM: [id number] Recommended Discharge Disposition: Subacute/SNF Recommended Discharge Disposition [...] per chart review patient is [facility]. Patient reports using walker and does her [...] to maintain (more content not included)... Normal [facility] Basic metabolic 2000 panelon 12-23-2021 Anion gap [Moles/Vol] 10 mmol/L Normal 9-18 [facility] Comment on above: Order Comment: Speci men Type: BLOOD SPECIMENOrdering Facility: [facility] Address: [address] [place] [address] Performed By: #### 2 4321-2 ####[facility] LABORATORYCLIA [id number] [place] [address] [place] Calcium [Mass/Vol] 9.0 mg/dL Normal 8.5-10.2 [facility] Comment on above: Order Comment: Speci men Type: BLOOD SPECIMENOrdering Facility: [facility] Address: [address] [place] [address] Performed By: #### 2 4321-2 ####[facility] LABORATORYCLIA [id number] [place] [address] [place] Chloride [Moles/Vol] 102 mmol/L Normal 97-105 [facility] Comment on above: Order Comment: Speci men Type: BLOOD SPECIMENOrdering Facility: [facility] Address: [address] [place] [address] Performed By: #### 2 4321-2 ####[facility] LABORATORYCLIA [id number] [place] [address] [place] CO2 [Moles/Vol] 26 mmol/L Normal 22-30 [facility] Comment on above: Order Comment: Specrodo herrera Type: BLOOD SPECIMENOrdering Facility: [facility] Address: [address] [place] [address] Performed By: #### 2 4321-2 ####[facility] [id number] [address] STATES OF [facility] Creatinine [Mass/Vol] 0.91 mg/dL Normal 0.58-0.96 [facility] Comment on above: Order Comment: Specrodo herrera Type: BLOOD SPECIMENOrdering Facility: [facility] Address: [address] [place] [address] Performed By: #### 2 4321-2 ####[facility] [id number] [address] ESTIMATED GLOMERULAR FILTRATION RATE 69 mL/min/1.73m??? Normal >=60 [facility] Comment on above: Order Comment: Specordo herrera Type: BLOOD SPECIMENOrdering Facility: [facility] Address: [address] [place] [address] Result Comment: Jessa mated Glomerular Filtration Rate [...] actual GFR. Performed By: #### 2 4321-2 ####[facility] LABORATORYIA [id number] [address] OF [facility] Glucose [Mass/Vol] 108 mg/dL High 74-99 [facility] Comment on above: Order Comment: Kinsye herrera Type: BLOOD SPECIMENOrdering Facility: [facility] Address: [address] [place] [address] Result Comment: The [place] Diabetes Association (ADA) provides guidance for cutoff [...] Standards of Medical Care in Diabetes 2016, [place] Diabetes Association. Diabetes Care. 2016.39(Suppl 1). Performed By: #### 2 4321-2 ####[facility]ORATORYCLIA [id number] [address] STATES OF [facility] Potassium [Moles/Vol] 4.2 mmol/L Normal 3.7-5.1 [facility] Comment on above: Order Comment: Kinsey herrera Type: BLOOD SPECIMENOrdering Facility: [facility] Address: [address] [place] [address] Performed By: #### 2 1-2 ####[facility]ORATORYCLIA [id number] [address] Sodium [Moles/Vol] 138 mmol/L Normal 136-144 [facility] Comment on above: Order Comment: Kinsey herrera Type: BLOOD SPECIMENOrdering Facility: [facility] Address: [address] [place] [address] Performed By: #### 2 1-2 ####[facility]ORATORYCLIA [id number] [address] Urea nitrogen [Mass/Vol] 14 mg/dL Normal 7-21 [facility] Comment on above: Order Comment: Speci men Type: BLOOD SPECIMENOrdering Facility: [facility] Address: [address] [place] [address] Performed By: #### 2 4321-2 ####[facility]ORATORYCLIA [id number] [address] CBC W Auto Differential pane l (Bld)on 12-23-2021 Basophils (Bld) [#/Vol] 0.09 10*3/uL Normal <0.11 [facility] Comment on above: Order Comment: Speci men Type: BLOOD SPECIMENOrdering Facility: [facility] Address: [address] [place] [address] Performed By: #### 5 7021-8 ####[facility]ORATORYCLIA [id number] [address] STATES OF [facility] Basophils/100 WBC (Bld) 0.6 % Normal A [facility] Comment on above: Order Comment: Speci men Type: BLOOD SPECIMENOrdering Facility: [facility] Address: [address] [place] [address] Performed By: #### 5 7021-8 ####[facility]ATORYCLIA [id number] [address] Differential cell count method Nom (Bld) Auto Normal [facility] Comment on above: Order Comment: Speci men Type: BLOOD SPECIMENOrdering Facility: [facility] Address: [address] [place] [address] Performed By: #### 5 7021-8 ####[facility]ORATORYCLIA [id number] [address] STATES OF [facility] Eosinophils (Bld) [#/Vol] 0.28 10*3/uL Normal <0.46 [facility] Comment on above: Order Comment: Speci men Type: BLOOD SPECIMENOrdering Facility: [facility] Address: [address] [place] [address] Performed By: #### 5 7021-8 ####[facility]ATORYCLIA [id number] [address] Eosinophils/100 WBC (Bld) 2.0 % Normal [facility] Comment on above: Order Comment: Speci men Type: BLOOD SPECIMENOrdering Facility: [facility] Address: [address] [place] [address] Performed By: #### 5 7021-8 ####[facility]ORATORYCLIA [id number] [address] STATES [facility] Erythrocyte distribution width (RBC) [Ratio] 13.7 % Normal 11.5-15.0 [facility] Comment on above: Order Comment: Speci men Type: BLOOD SPECIMENOrdering Facility: [facility] Address: [address] [place] [address] Performed By: #### 5 7021-8 ####[facility]ORATORYCLIA [id number] [address] [place] Hematocrit (Bld) [Volume fraction] 29.0 % Low 36.0-46.0 [facility] Comment on above: Order Comment: Speci men Type: BLOOD SPECIMENOrdering Facility: [facility] Address: [address] [place] [address] Performed By: #### 5 7021-8 ####[facility]ORATORYCLIA [id number] [address] [place] Hemoglobin (Bld) [Mass/Vol] 9.1 g/dL Low 11.5-15.5 [facility] Comment on above: Order Comment: Speci men Type: BLOOD SPECIMENOrdering Facility: [facility] Address: [address] [place] [address] Performed By: #### 5 7021-8 ####[facility]ORATORYCLIA [id number] [address] [place] Immature granulocytes (Bld) [#/Vol] 0.21 10*3/uL High <0.10 [facility] Comment on above: Order Comment: Speci men Type: BLOOD SPECIMENOrdering Facility: [facility] Address: [address] [place] [address] Performed By: #### 5 7021-8 ####[facility]ORATORYCLIA [id number] [address] [place] Immature granulocytes/100 WBC (Bld) 1.5 % Normal [facility] Comment on above: Order Comment: Speci men Type: BLOOD SPECIMENOrdering Facility: [facility] Address: [address] [place] [address] Performed By: #### 5 7021-8 ####[facility]ORATORYCLIA [id number] [address] [place] Lymphocytes (Bld) [#/Vol] 4.66 10*3/uL High 1.00-4.00 [facility] Comment on above: Order Comment: Speci men Type: BLOOD SPECIMENOrdering Facility: [facility] Address: [address] [place] [address] Performed By: #### 5 7021-8 ####[facility]ORATORYCLIA [id number] [address] Lymphocytes/100 WBC (Bld) 32.6 % Normal [facility] Comment on above: Order Comment: Speci men Type: BLOOD SPECIMENOrdering Facility: [facility] Address: [address] [place] [address] Performed By: #### 5 7021-8 ####[facility] LABORATORYCLIA [id number] [address] MCH (RBC) [Entitic mass] 29.5 pg Normal 26.0-34.0 [facility] Comment on above: Order Comment: Speci men Type: BLOOD SPECIMENOrdering Facility: [facility] Address: [address] [place] [address] Performed By: #### 5 7021-8 ####[facility] LABORATORYCLIA [id number] [address] [place] MCHC (RBC) [Mass/Vol] 31.4 g/dL Normal 30.5-36.0 [facility] Comment on above: Order Comment: Speci men Type: BLOOD SPECIMENOrdering Facility: [facility] Address: [address] [place] [address] Performed By: #### 5 7021-8 ####[facility] LABORATORYCLIA [id number] [address] MCV (RBC) [Entitic vol] 94.[address] fL Normal 80.0-100.0 [facility] Comment on above: Order Comment: Speci men Type: BLOOD SPECIMENOrdering Facility: [facility] Address: [address] [address] Performed By: #### 5 7021-8 ####[facility]ORATORYCLIA [id number] [place] [address] [place] Monocytes (Bld) [#/Vol] 1.33 10*3/uL High <0.87 [facility] Comment on above: Order Comment: Speci men Type: BLOOD SPECIMENOrdering Facility: [facility] Address: [address] [address] Performed By: #### 5 7021-8 ####[facility] LABORATORYCLIA [id number] [place] [address] [place] Monocytes/100 WBC (Bld) 9.3 % Normal [facility] Comment on above: Order Comment: Speci men Type: BLOOD SPECIMENOrdering Facility: [facility] Address: [address] [place] [address] Performed By: #### 5 7021-8 ####[facility] LABORATORYCLIA [id number] [place] [address] [place] Neutrophils (Bld) [#/Vol] 7.71 10*3/uL High 1.45-7.50 [facility] Comment on above: Order Comment: Speci men Type: BLOOD SPECIMENOrdering Facility: [facility] Address: [address] [place] [address] Performed By: #### 5 7021-8 ####[facility]ORATORYCLIA [id number] [address] [place] Neutrophils/100 WBC (Bld) 54.0 % Normal [facility] Comment on above: Order Comment: Speci men Type: BLOOD SPECIMENOrdering Facility: [facility] Address: [address] [place] [address] Performed By: #### 5 7021-8 ####[facility]ORATORYCLIA [id number] [place] [address] [place] Nucleated RBC (Bld) [#/Vol] 0.02 10*3/uL High <0.01 [facility] Comment on above: Order Comment: Speci men Type: BLOOD SPECIMENOrdering Facility: [facility] Address: [address] [place] [address] Performed By: #### 5 7021-8 ####[facility] LABORATORYCLIA [id number] [address] [place] Nucleated RBC/100 WBC (Bld) [Ratio] 0.1 /100 WBC Normal [facility] Comment on above: Order Comment: Speci men Type: BLOOD SPECIMENOrdering Facility: [facility] Address: [address] [place] [address] Performed By: #### 5 7021-8 ####[facility] LABORATORYCLIA [id number] [address] [place] Platelet mean volume (Bld) [Entitic vol] 9.0 fL Normal 9.0-12.7 [facility] Comment on above: Order Comment: Speci men Type: BLOOD SPECIMENOrdering Facility: [facility] Address: [address] [address] Performed By: #### 5 7021-8 ####[facility] LABORATORYCLIA [id number] [address] [place] Platelets (Bld) [#/Vol] 517 10*3/uL High 150-400 [facility] Comment on above: Order Comment: Speci men Type: BLOOD SPECIMENOrdering Facility: [facility] Address: [address] [address] Performed By: #### 5 7021-8 ####[facility] LABORATORYCLIA [id number] [address] [place] RBC (Bld) [#/Vol] 3.08 10*6/uL Low 3.90-5.20 [facility] Comment on above: Order Comment: Speci men Type: BLOOD SPECIMENOrdering Facility: [facility] Address: [address] [place] [address] Performed By: #### 5 7021-8 ####[facility] LABORATORYCLIA [id number] [place] [address] [facility] [place] WBC (Bld) [#/Vol] 14.28 10*3/uL High 3.70-11.00 [facility] Comment on above: Order Comment: Kinsey herrera Type: BLOOD SPECIMENOrdering Facility: [facility] Address: [address] [place] [address] [place] [address] Performed By: #### 5 7021-8 ####[facility] LABORATORYCLIA [id number] [place] [id number] [facility] THERAPY NTon 12-23-2021 THERAPY NT HNO ID: [id number] Author: Jesus Enrique PTA Service: Physical Therapy Author Type: Lifts And Cranes Inspector Type: Therapy (PT/OT/Speech/Resp) Filed: 12/23/2021 12:01 PM Note Text: Attestation signed by Romero Harley PT at 12/23/2021 1:21 PM I reviewed and agree with the documentation corresponding to this therapy visit. SIGNATURE: Romero Harley PT DATE: December 23, 2021 TIME: 1:21 PM Physical Therapy Treatment SERVICE DATE: 12/23/2021 SERVICE TIME: 1129 to 1152 ROOM: [place] [address] Recommended Discharge Disposition: Subacute/SNF Recommended Discharge Disposition [...] per chart review patient is from [facility]. Patient reports using walker and does her [...] Fair Patient (more content not included)... Normal [facility] Basic metabolic 2000 panelon 12-22-2021 Anion gap [Moles/Vol] 11 mmol/L Normal 9-18 [facility] Comment on above: Order Comment: Speci men Type: BLOOD SPECIMENOrdering Facility: [facility] Address: [address] [place] [address] Performed By: #### 2 4321-2 ####[facility] LABORATORYCLIA [id number] [place] [address] [place] Calcium [Mass/Vol] 9.2 mg/dL Normal 8.5-10.2 [facility] Comment on above: Order Comment: Speci men Type: BLOOD SPECIMENOrdering Facility: [facility] Address: [address] [address] Performed By: #### 2 4321-2 ####[facility] LABORATORYCLIA [id number] [place] [address] [place] Chloride [Moles/Vol] 99 mmol/L Normal 97-105 [facility] Comment on above: Order Comment: Speci men Type: BLOOD SPECIMENOrdering Facility: [facility] Address: [address] [address] Performed By: #### 2 4321-2 ####[facility] LABORATORYCLIA [id number] [address] STATES OF [facility] CO2 [Moles/Vol] 26 mmol/L Normal 22-30 [facility] Comment on above: Order Comment: Speci men Type: BLOOD SPECIMENOrdering Facility: [facility] Address: [address] [place] [address] Performed By: #### 2 4321-2 ####[facility] LABORATORYCLIA [id number] [address] Creatinine [Mass/Vol] 0.87 mg/dL Normal 0.58-0.96 [facility] Comment on above: Order Comment: Speci men Type: BLOOD SPECIMENOrdering Facility: [facility] Address: [address] [place] [address] Performed By: #### 2 4321-2 ####[facility] HOSPITALIA [id number] [address] ESTIMATED GLOMERULAR FILTRATION RATE 73 mL/min/1.73m??? Normal >=60 [facility] Comment on above: Order Comment: Speci men Type: BLOOD SPECIMENOrdering Facility: [facility] Address: [address] [place] [address] Result Comment: Jessa mated Glomerular Filtration Rate [...] actual GFR. Performed By: #### 2 4321-2 ####[facility] LABORATORYCLIA [id number] [address] OF [facility] Glucose [Mass/Vol] 100 mg/dL High 74-99 [facility] Comment on above: Order Comment: Speci men Type: BLOOD SPECIMENOrdering Facility: [facility] Address: [address] [place] [address] Result Comment: The [place] Diabetes Association (ADA) provides guidance for cutoff [...] Standards of Medical Care in Diabetes 2016, [place] Diabetes Association. Diabetes Care. 2016.39(Suppl 1). Performed By: #### 2 4321-2 ####[facility] LABORATORYCLIA [id number] [address] STATES OF [facility] Potassium [Moles/Vol] 4.2 mmol/L Normal 3.7-5.1 [facility] Comment on above: Order Comment: Speci men Type: BLOOD SPECIMENOrdering Facility: [facility] Address: [address] [place] [address] Performed By: #### 2 4321-2 ####[facility] LABORATORYCLIA [id number] [address] Sodium [Moles/Vol] 136 mmol/L Normal 136-144 [facility] Comment on above: Order Comment: Speci men Type: BLOOD SPECIMENOrdering Facility: [facility] Address: [address] [place] [address] Performed By: #### 2 4321-2 ####[facility] LABORATORYCLIA [id number] [address] STATES [facility] Urea nitrogen [Mass/Vol] 15 mg/dL Normal 7-21 [facility] Comment on above: Order Comment: Speci men Type: BLOOD SPECIMENOrdering Facility: [facility] Address: [address] [address] Performed By: #### 2 4321-2 ####[facility] LABORATORYCLIA [id number] [place] [address] [place] CBC W Auto Differential pane l (Bld)on 12-22-2021 Basophils (Bld) [#/Vol] 0.10 10*3/uL Normal <0.11 [facility] Comment on above: Order Comment: Speci men Type: BLOOD SPECIMENOrdering Facility: [facility] Address: [address] [address] Performed By: #### 5 7021-8 ####[facility]ORATORYCLIA [id number] [place] [address] [place] Basophils/100 WBC (Bld) 0.7 % Normal A [facility] Comment on above: Order Comment: Speci men Type: BLOOD SPECIMENOrdering Facility: [facility] Address: [address] [place] [address] Performed By: #### 5 7021-8 ####[facility]ORATORYCLIA [id number] [address] STATES OF [facility] Differential cell count method Nom (Bld) Auto Normal [facility] Comment on above: Order Comment: Speci men Type: BLOOD SPECIMENOrdering Facility: [facility] Address: [address] [address] Performed By: #### 5 7021-8 ####[facility]ORATORYCLIA [id number] [place] [address] [place] Eosinophils (Bld) [#/Vol] 0.44 10*3/uL Normal <0.46 [facility] Comment on above: Order Comment: Speci men Type: BLOOD SPECIMENOrdering Facility: [facility] Address: [address] [address] Performed By: #### 5 7021-8 ####[facility]ORATORYCLIA [id number] [address] Eosinophils/100 WBC (Bld) 3.2 % Normal [facility] Comment on above: Order Comment: Speci men Type: BLOOD SPECIMENOrdering Facility: [facility] Address: [address] [address] Performed By: #### 5 7021-8 ####[facility] LABORATORYCLIA [id number] [address] [place] Erythrocyte distribution width (RBC) [Ratio] 13.9 % Normal 11.5-15.0 [facility] Comment on above: Order Comment: Speci men Type: BLOOD SPECIMENOrdering Facility: [facility] Address: [address] [place] [address] Performed By: #### 5 7021-8 ####[facility] LABORATORYCLIA [id number] [address] [place] Hematocrit (Bld) [Volume fraction] 31.7 % Low 36.0-46.0 [facility] Comment on above: Order Comment: Speci men Type: BLOOD SPECIMENOrdering Facility: [facility] Address: [address] [place] [address] Performed By: #### 5 7021-8 ####[facility] LABORATORYCLIA [id number] [address] [place] Hemoglobin (Bld) [Mass/Vol] 9.9 g/dL Low 11.5-15.5 [facility] Comment on above: Order Comment: Speci men Type: BLOOD SPECIMENOrdering Facility: [facility] Address: [address] [place] [address] Performed By: #### 5 7021-8 ####[facility] LABORATORYCLIA [id number] [address] [place] Immature granulocytes (Bld) [#/Vol] 0.21 10*3/uL High <0.10 [facility] Comment on above: Order Comment: Speci men Type: BLOOD SPECIMENOrdering Facility: [facility] Address: [address] [place] [address] Performed By: #### 5 7021-8 ####[facility] LABORATORYCLIA [id number] [address] [place] Immature granulocytes/100 WBC (Bld) 1.5 % Normal [facility] Comment on above: Order Comment: Speci men Type: BLOOD SPECIMENOrdering Facility: [facility] Address: [address] [address] Performed By: #### 5 7021-8 ####[facility] LABORATORYCLIA [id number] [address] Lymphocytes (Bld) [#/Vol] 4.90 10*3/uL High 1.00-4.00 [facility] Comment on above: Order Comment: Speci men Type: BLOOD SPECIMENOrdering Facility: [facility] Address: [address] [place] [address] Performed By: #### 5 7021-8 ####[facility] LABORATORYCLIA [id number] [address] Lymphocytes/100 WBC (Bld) 35.5 % Normal [facility] Comment on above: Order Comment: Speci men Type: BLOOD SPECIMENOrdering Facility: [facility] Address: [address] [place] [address] Performed By: #### 5 7021-8 ####[facility] LABORATORYCLIA [id number] [address] [place] MCH (RBC) [Entitic mass] 29.1 pg Normal 26.0-34.0 [facility] Comment on above: Order Comment: Speci men Type: BLOOD SPECIMENOrdering Facility: [facility] Address: [address] [place] [address] Performed By: #### 5 7021-8 ####[facility] LABORATORYCLIA [id number] [address] MCHC (RBC) [Mass/Vol] 31.2 g/dL Normal 30.5-36.0 [facility] Comment on above: Order Comment: Speci men Type: BLOOD SPECIMENOrdering Facility: [facility] Address: [address] [place] [address] Performed By: #### 5 7021-8 ####[facility] LABORATORYCLIA [id number] [address] MCV (RBC) [Entitic vol] 93.2 fL Normal 80.0-100.[address] [facility] Comment on above: Order Comment: Speci men Type: BLOOD SPECIMENOrdering Facility: [facility] Address: [address] [place] [address] Performed By: #### 5 7021-8 ####[facility] LABORATORYCLIA [id number] [address] [place] Monocytes (Bld) [#/Vol] 1.24 10*3/uL High <0.87 [facility] Comment on above: Order Comment: Speci men Type: BLOOD SPECIMENOrdering Facility: [facility] Address: [address] [place] [address] Performed By: #### 5 7021-8 ####[facility] LABORATORYCLIA [id number] [address] STATES OF [facility] Monocytes/100 WBC (Bld) 9.0 % Normal A [facility] Comment on above: Order Comment: Speci men Type: BLOOD SPECIMENOrdering Facility: [facility] Address: [address] [place] [address] Performed By: #### 5 7021-8 ####[facility] LABORATORYCLIA [id number] [address] [place] Neutrophils (Bld) [#/Vol] 6.91 10*3/uL Normal 1.45-7.50 [facility] Comment on above: Order Comment: Speci men Type: BLOOD SPECIMENOrdering Facility: [facility] Address: [address] [place] [address] Performed By: #### 5 7021-8 ####[facility] LABORATORYCLIA [id number] [address] [place] Neutrophils/100 WBC (Bld) 50.1 % Normal [facility] Comment on above: Order Comment: Speci men Type: BLOOD SPECIMENOrdering Facility: [facility] Address: [address] [place] [address] Performed By: #### 5 7021-8 ####[facility]ORATORYCLIA [id number] [address] [place] Nucleated RBC (Bld) [#/Vol] 0.03 10*3/uL High <0.01 [facility] Comment on above: Order Comment: Speci men Type: BLOOD SPECIMENOrdering Facility: [facility] Address: [address] [place] [address] Performed By: #### 5 7021-8 ####[facility] LABORATORYCLIA [id number] [address] [place] Nucleated RBC/100 WBC (Bld) [Ratio] 0.2 /100 WBC Normal [facility] Comment on above: Order Comment: Speci men Type: BLOOD SPECIMENOrdering Facility: [facility] Address: [address] [place] [address] Performed By: #### 5 7021-8 ####[facility] LABORATORYCLIA [id number] [address] [place] Platelet mean volume (Bld) [Entitic vol] 9.0 fL Normal 9.0-12.7 [facility] Comment on above: Order Comment: Speci men Type: BLOOD SPECIMENOrdering Facility: [facility] Address: [address] [place] [address] Performed By: #### 5 7021-8 ####[facility] LABORATORYCLIA [id number] [place] [address] [place] Platelets (Bld) [#/Vol] 521 10*3/uL High 150-400 [facility] Comment on above: Order Comment: Speci men Type: BLOOD SPECIMENOrdering Facility: [facility] Address: [address] [place] [address] Performed By: #### 5 7021-8 ####[facility] LABORATORYCLIA [id number] [address] [place] RBC (Bld) [#/Vol] 3.40 10*6/uL Low 3.90-5.20 [facility] Comment on above: Order Comment: Speci men Type: BLOOD SPECIMENOrdering Facility: [facility] Address: [place] [address] Performed By: #### 5 7021-8 ####[facility] LABORATORYCLIA [id number] [place] [id number] [facility] WBC (Bld) [#/Vol] 13.80 10*3/uL High 3.70-11.00 [facility] Comment on above: Order Comment: Speci men Type: BLOOD SPECIMENOrdering Facility: [facility] Address: [place] [address] Performed By: #### 5 7021-8 ####[facility] LABORATORYCLIA [id number] [place] [address] [facility] THERAPY NTon 12-22-2021 THERAPY NT HNO ID: [id number] Author: Rae Graza PT Service: Physical Therapy Author Type: Physical Therapist Type: Therapy (PT/OT/Speech/Resp) Filed: 12/22/2021 11:28 AM Note Text: Physical Therapy Treatment SERVICE DATE: 12/22/2021 SERVICE TIME: 1046 to 1114 ROOM: [place] [address] Recommended Discharge Disposition: Subacute/SNF Recommended Discharge Disposition [...] per chart review patient is from [facility]. Patient reports using walker and does her [...] gait and mobility-other Interventions Provided: Therapeutic Exercise (32052);Gait Training (46868) Therapeutic Exercise (01064) Treatment Minutes: 16 $ Therapeutic Exercise (86575) Billed Units: 1 unit Exercise Ankle Pumps (number of reps): 15 Quad Sets (number of reps): 15 Glut Sets (number of reps): 15 Heel Slides (number of reps): 15 SAQ (number of reps): 15 Hip Abduction (number of reps): 15 Exercise (more content not included)... Normal [facility] THERAPY NT HNO ID: [id number] Author: ALLEN Cordero/L Service: Occupational Therapy Author Type: Occupational Therapist Type: Therapy (PT/OT/Speech/Resp) Filed: 12/22/2021 9:54 AM Note Text: Occupational Therapy Treatment SERVICE DATE: 12/22/2021 SERVICE TIME: 904 to 930 ROOM: [place] [address] Recommended Discharge Disposition: Subacute/SNF Recommended Discharge Disposition [...] per chart review patient is from [facility]. Patient reports using walker and does her own ADLs Baseline Cognition: Confused;Forgetful;Afvio ented to self;Requires 24/ supervision Patient Report: agreeable to session CURRENT [...] Gait Belt;Wheeled Walker Provided increase time and lliv-pc-dbdq verbal direction to sequence self with use of walker over towards chair. Educated on fall prevention and safety during all dynamic mobility. Provided education on weightbearing as tolerated protocol, as it appears patient trying to keep surgical leg as nonweightbearing during transitions. Toilet/Commode Shower Functio (more content not included)... Normal [facility] Basic metabolic 2000 panelon 12-21-2021 Anion gap [Moles/Vol] 12 mmol/L Normal 9-18 [facility] Comment on above: Order Comment: Speci men Type: BLOOD SPECIMENOrdering Facility: [facility] Address: [address] [place] [address] Performed By: #### 2 4321-2 ####[facility] LABORATORYCLIA [id number] [place] [address] [place] Calcium [Mass/Vol] 9.2 mg/dL Normal 8.5-10.2 [facility] Comment on above: Order Comment: Speci men Type: BLOOD SPECIMENOrdering Facility: [facility] Address: [address] [place] [address] Performed By: #### 2 4321-2 ####[facility] LABORATORYCLIA [id number] [place] [address] [place] Chloride [Moles/Vol] 97 mmol/L Normal 97-105 [facility] Comment on above: Order Comment: Speci men Type: BLOOD SPECIMENOrdering Facility: [facility] Address: [address] [place] [address] Performed By: #### 2 4321-2 ####[facility] LABORATORYCLIA [id number] [place] [address] [place] CO2 [Moles/Vol] 26 mmol/L Normal 22-30 [facility] Comment on above: Order Comment: Speci men Type: BLOOD SPECIMENOrdering Facility: [facility] Address: [address] [place] [address] Performed By: #### 2 4321-2 ####[facility] LABORATORYCLIA [id number] [place] [address] [place] Creatinine [Mass/Vol] 0.79 mg/dL Normal 0.58-0.96 [facility] Comment on above: Order Comment: Kinsey herrera Type: BLOOD SPECIMENOrdering Facility: [facility] Address: [address] [place] [address] Performed By: #### 2 4321-2 ####[facility] LABORATORYCLIA [id number] [address] [place] ESTIMATED GLOMERULAR FILTRATION RATE 82 mL/min/1.73m??? Normal >=60 [facility] Comment on above: Order Comment: Micahrodo herrera Type: BLOOD SPECIMENOrdering Facility: [facility] Address: [address] [place] [address] Result Comment: Jessa mated Glomerular Filtration Rate [...] actual GFR. Performed By: #### 2 4321-2 ####[facility] LABORATORYIA [id number] [place] [address] [place] Glucose [Mass/Vol] 108 mg/dL High 74-99 [facility] Comment on above: Order Comment: Kinsey herrera Type: BLOOD SPECIMENOrdering Facility: [facility] Address: [address] [place] [address] Result Comment: The [place] Diabetes Association (ADA) provides guidance for cutoff [...] Standards of Medical Care in Diabetes 2016, [place] Diabetes Association. Diabetes Care. 2016.39(Suppl 1). Performed By: #### 2 4321-2 ####[facility] LABORATORYCLIA [id number] [address] [place] Potassium [Moles/Vol] 4.0 mmol/L Normal 3.7-5.1 [facility] Comment on above: Order Comment: Speci men Type: BLOOD SPECIMENOrdering Facility: [facility] Address: [address] [place] [address] Performed By: #### 2 4321-2 ####[facility] LABORATORYCLIA [id number] [place] [address] [place] Sodium [Moles/Vol] 135 mmol/L Low 136-144 [facility] Comment on above: Order Comment: Speci men Type: BLOOD SPECIMENOrdering Facility: [facility] Address: [address] [place] [address] Performed By: #### 2 4321-2 ####[facility] LABORATORYCLIA [id number] [address] STATES OF [facility] Urea nitrogen [Mass/Vol] 11 mg/dL Normal 7-21 [facility] Comment on above: Order Comment: Speci men Type: BLOOD SPECIMENOrdering Facility: [facility] Address: [address] [place] [address] Performed By: #### 2 4321-2 ####[facility] LABORATORYCLIA [id number] [address] [place] CBC W Auto Differential pane l (Bld)on 12-21-2021 Basophils (Bld) [#/Vol] 0.07 10*3/uL Normal <0.11 [facility] Comment on above: Order Comment: Speci men Type: BLOOD SPECIMENOrdering Facility: [facility] Address: [address] [place] [address] Performed By: #### 5 7021-8 ####[facility] LABORATORYCLIA [id number] [address] [place] Basophils/100 WBC (Bld) 0.6 % Normal A [facility] Comment on above: Order Comment: Speci men Type: BLOOD SPECIMENOrdering Facility: [facility] Address: [address] [place] [address] Performed By: #### 5 7021-8 ####[facility]ORATORYCLIA [id number] [address] Differential cell count method Nom (Bld) Auto Normal [facility] Comment on above: Order Comment: Speci men Type: BLOOD SPECIMENOrdering Facility: [facility] Address: [address] [place] [address] Performed By: #### 5 7021-8 ####[facility] LABORATORYCLIA [id number] [address] Eosinophils (Bld) [#/Vol] 0.26 10*3/uL Normal <0.46 [facility] Comment on above: Order Comment: Speci men Type: BLOOD SPECIMENOrdering Facility: [facility] Address: [address] [place] [address] Performed By: #### 5 7021-8 ####[facility] LABORATORYCLIA [id number] [address] Eosinophils/100 WBC (Bld) 2.3 % Normal [facility] Comment on above: Order Comment: Speci men Type: BLOOD SPECIMENOrdering Facility: [facility] Address: [address] [place] [address] Performed By: #### 5 7021-8 ####[facility] LABORATORYCLIA [id number] [address] Erythrocyte distribution width (RBC) [Ratio] 13.9 % Normal 11.5-15.0 [facility] Comment on above: Order Comment: Speci men Type: BLOOD SPECIMENOrdering Facility: [facility] Address: [address] [place] [address] Performed By: #### 5 7021-8 ####[facility]ORATORYCLIA [id number] [address] Hematocrit (Bld) [Volume fraction] 31.9 % Low 36.0-46.0 [facility] Comment on above: Order Comment: Speci men Type: BLOOD SPECIMENOrdering Facility: [facility] Address: [address] [place] [address] Performed By: #### 5 7021-8 ####[facility] LABORATORYCLIA [id number] [place] [address] [place] Hemoglobin (Bld) [Mass/Vol] 9.9 g/dL Low 11.5-15.5 [facility] Comment on above: Order Comment: Speci men Type: BLOOD SPECIMENOrdering Facility: [facility] Address: [address] [place] [address] Performed By: #### 5 7021-8 ####[facility] LABORATORYCLIA [id number] [place] [address] [place] Immature granulocytes (Bld) [#/Vol] 0.14 10*3/uL High <0.10 [facility] Comment on above: Order Comment: Speci men Type: BLOOD SPECIMENOrdering Facility: [facility] Address: [address] [place] [address] Performed By: #### 5 7021-8 ####[facility] LABORATORYCLIA [id number] [address] [place] Immature granulocytes/100 WBC (Bld) 1.2 % Normal [facility] Comment on above: Order Comment: Speci men Type: BLOOD SPECIMENOrdering Facility: [facility] Address: [address] [place] [address] Performed By: #### 5 7021-8 ####[facility]ORATORYCLIA [id number] [place] [address] [place] Lymphocytes (Bld) [#/Vol] 2.78 10*3/uL Normal 1.00-4.00 [facility] Comment on above: Order Comment: Speci men Type: BLOOD SPECIMENOrdering Facility: [facility] Address: [address] [place] [address] Performed By: #### 5 7021-8 ####[facility] LABORATORYCLIA [id number] [address] Lymphocytes/100 WBC (Bld) 24.7 % Normal [facility] Comment on above: Order Comment: Speci men Type: BLOOD SPECIMENOrdering Facility: [facility] Address: [address] [place] [address] Performed By: #### 5 7021-8 ####[facility] LABORATORYCLIA [id number] [address] MCH (RBC) [Entitic mass] 29.1 pg Normal 26.0-34.0 [facility] Comment on above: Order Comment: Speci men Type: BLOOD SPECIMENOrdering Facility: [facility] Address: [address] [place] [address] Performed By: #### 5 7021-8 ####[facility] LABORATORYCLIA [id number] [address] MCHC (RBC) [Mass/Vol] 31.0 g/dL Normal 30.5-36.0 [facility] Comment on above: Order Comment: Speci men Type: BLOOD SPECIMENOrdering Facility: [facility] Address: [address] [place] [address] Performed By: #### 5 7021-8 ####[facility] LABORATORYCLIA [id number] [address] MCV (RBC) [Entitic vol] 93.8 fL Normal 80.0-100.0 [facility] Comment on above: Order Comment: Speci men Type: BLOOD SPECIMENOrdering Facility: [facility] Address: [address] [place] [address] Performed By: #### 5 7021-8 ####[facility] LABORATORYCLIA [id number] [address] Monocytes (Bld) [#/Vol] 0.85 10*3/uL Normal <0.87 [facility] Comment on above: Order Comment: Speci men Type: BLOOD SPECIMENOrdering Facility: [facility] Address: [address] [address] Performed By: #### 5 7021-8 ####[facility]ORATORYCLIA [id number] [address] [place] Monocytes/100 WBC (Bld) 7.5 % Normal A [facility] Comment on above: Order Comment: Speci men Type: BLOOD SPECIMENOrdering Facility: [facility] Address: [address] [place] [address] Performed By: #### 5 7021-8 ####[facility] LABORATORYCLIA [id number] [place] [address] [place] Neutrophils (Bld) [#/Vol] 7.17 10*3/uL Normal 1.45-7.50 [facility] Comment on above: Order Comment: Speci men Type: BLOOD SPECIMENOrdering Facility: [facility] Address: [address] [place] [address] Performed By: #### 5 7021-8 ####[facility] LABORATORYCLIA [id number] [address] [place] Neutrophils/100 WBC (Bld) 63.7 % Normal [facility] Comment on above: Order Comment: Speci men Type: BLOOD SPECIMENOrdering Facility: [facility] Address: [address] [place] [address] Performed By: #### 5 7021-8 ####[facility]ORATORYCLIA [id number] [place] [address] [place] Nucleated RBC (Bld) [#/Vol] 0.02 10*3/uL High <0.01 [facility] Comment on above: Order Comment: Speci men Type: BLOOD SPECIMENOrdering Facility: [facility] Address: [address] [place] [address] Performed By: #### 5 7021-8 ####[facility]ORATORYCLIA [id number] [address] [place] Nucleated RBC/100 WBC (Bld) [Ratio] 0.2 /100 WBC Normal [facility] Comment on above: Order Comment: Speci men Type: BLOOD SPECIMENOrdering Facility: [facility] Address: [address] [place] [address] Performed By: #### 5 7021-8 ####[facility] LABORATORYCLIA [id number] [address] [place] Platelet mean volume (Bld) [Entitic vol] 9.3 fL Normal 9.0-12.7 [facility] Comment on above: Order Comment: Speci men Type: BLOOD SPECIMENOrdering Facility: [facility] Address: [address] [place] [address] Performed By: #### 5 7021-8 ####[facility] LABORATORYCLIA [id number] [address] [place] Platelets (Bld) [#/Vol] 531 10*3/uL High 150-400 [facility] Comment on above: Order Comment: Speci men Type: BLOOD SPECIMENOrdering Facility: [facility] Address: [address] [address] Performed By: #### 5 7021-8 ####[facility] LABORATORYCLIA [id number] [place] [address] [place] RBC (Bld) [#/Vol] 3.40 10*6/uL Low 3.90-5.20 [facility] Comment on above: Order Comment: Speci men Type: BLOOD SPECIMENOrdering Facility: [facility] Address: [address] [place], [place] [address] Performed By: #### 5 7021-8 ####[facility] LABORATORYCLIA [id number] [place] [address] [place] WBC (Bld) [#/Vol] 11.27 10*3/uL High 3.70-11.00 [facility] Comment on above: Order Comment: Speci men Type: BLOOD SPECIMENOrdering Facility: [facility] Address: [address] [place] [address] Performed By: #### 5 7021-8 ####[facility]ORATORYCLIA [id number] [place] [address] [place] Basic metabolic 2000 panelon 12-20-2021 Anion gap [Moles/Vol] 12 mmol/L Normal 9-18 [facility] Comment on above: Order Comment: Speci men Type: BLOOD SPECIMENOrdering Facility: [facility] Address: [address] [place] [address] Performed By: #### 2 4321-2 ####[facility]ORATORYCLIA [id number] [place] [address] [place] Calcium [Mass/Vol] 9.0 mg/dL Normal 8.5-10.2 [facility] Comment on above: Order Comment: Speci men Type: BLOOD SPECIMENOrdering Facility: [facility] Address: [address] [place] [address] Performed By: #### 2 4321-2 ####[facility] LABORATORYCLIA [id number] [address] [place] Chloride [Moles/Vol] 100 mmol/L Normal 97-105 [facility] Comment on above: Order Comment: Speci men Type: BLOOD SPECIMENOrdering Facility: [facility] Address: [address] [place] [address] Performed By: #### 2 4321-2 ####[facility]ORATORYCLIA [id number] [place] [address] [place] CO2 [Moles/Vol] 27 mmol/L Normal 22-30 [facility] Comment on above: Order Comment: Speci men Type: BLOOD SPECIMENOrdering Facility: [facility] Address: [address] [place] [address] Performed By: #### 2 4321-2 ####[facility]ORATORYCLIA [id number] [place] [address] [place] Creatinine [Mass/Vol] 0.75 mg/dL Normal 0.58-0.96 [facility] Comment on above: Order Comment: Speci men Type: BLOOD SPECIMENOrdering Facility: [facility] Address: [address] [address] Performed By: #### 2 4321-2 ####[facility] HOSPITALIA [id number] [place] [id number] [facility] ESTIMATED GLOMERULAR FILTRATION RATE 87 mL/min/1.73m??? Normal >=60 [facility] Comment on above: Order Comment: Kinsey herrera Type: BLOOD SPECIMENOrdering Facility: [facility] Address: [address] [place] [address] Result Comment: Jessa mated Glomerular Filtration Rate [...] actual GFR. Performed By: #### 2 4321-2 ####[facility] HOSPITALIA [id number] [place] [address] [place] Glucose [Mass/Vol] 105 mg/dL High 74-99 [facility] Comment on above: Order Comment: Kinsey herrera Type: BLOOD SPECIMENOrdering Facility: [facility] Address: [address] [place] [address] Result Comment: The [place] Diabetes Association (ADA) provides guidance for cutoff [...] Standards of Medical Care in Diabetes 2016, [place] Diabetes Association. Diabetes Care. 2016.39(Suppl 1). Performed By: #### 2 4321-2 ####[facility] LABORATORYIA [id number] [place] [address] [place] Potassium [Moles/Vol] 4.2 mmol/L Normal 3.7-5.1 [facility] Comment on above: Order Comment: Speci men Type: BLOOD SPECIMENOrdering Facility: [facility] Address: [address] [place] [address] Performed By: #### 2 4321-2 ####[facility] LABORATORYCLIA [id number] [address] [place] Sodium [Moles/Vol] 139 mmol/L Normal 136-144 [facility] Comment on above: Order Comment: Speci men Type: BLOOD SPECIMENOrdering Facility: [facility] Address: [address] [place] [address] Performed By: #### 2 4321-2 ####[facility] LABORATORYCLIA [id number] [address] [place] Urea nitrogen [Mass/Vol] 12 mg/dL Normal 7-21 [facility] Comment on above: Order Comment: Speci men Type: BLOOD SPECIMENOrdering Facility: [facility] Address: [address] [place] [address] Performed By: #### 2 4321-2 ####[facility] LABORATORYCLIA [id number] [address] [place] CBC W Auto Differential pane l (Bld)on 12-20-2021 Basophils (Bld) [#/Vol] 0.08 10*3/uL Normal <0.11 [facility] Comment on above: Order Comment: Speci men Type: BLOOD SPECIMENOrdering Facility: [facility] Address: [address] [place] [address] Performed By: #### 5 7021-8 ####[facility] LABORATORYCLIA [id number] [address] Basophils/100 WBC (Bld) 0.7 % Normal A [facility] Comment on above: Order Comment: Speci men Type: BLOOD SPECIMENOrdering Facility: [facility] Address: [address] [address] Performed By: #### 5 7021-8 ####[facility]ORATORYCLIA [id number] [address] Differential cell count method Nom (Bld) Auto Normal [facility] Comment on above: Order Comment: Speci men Type: BLOOD SPECIMENOrdering Facility: [facility] Address: [address] [place] [address] Performed By: #### 5 7021-8 ####[facility] LABORATORYCLIA [id number] [address] [place] Eosinophils (Bld) [#/Vol] 0.37 10*3/uL Normal <0.46 [facility] Comment on above: Order Comment: Speci men Type: BLOOD SPECIMENOrdering Facility: [facility] Address: [address] [place] [address] Performed By: #### 5 7021-8 ####[facility] LABORATORYCLIA [id number] [address] Eosinophils/100 WBC (Bld) 3.5 % Normal [facility] Comment on above: Order Comment: Speci men Type: BLOOD SPECIMENOrdering Facility: [facility] Address: [address] [place] [address] Performed By: #### 5 7021-8 ####[facility] LABORATORYCLIA [id number] [address] [place] Erythrocyte distribution width (RBC) [Ratio] 13.4 % Normal 11.5-15.0 [facility] Comment on above: Order Comment: Speci men Type: BLOOD SPECIMENOrdering Facility: [facility] Address: [address] [place] [address] Performed By: #### 5 7021-8 ####[facility]ORATORYCLIA [id number] [address] [place] Hematocrit (Bld) [Volume fraction] 27.1 % Low 36.0-46.0 [facility] Comment on above: Order Comment: Speci men Type: BLOOD SPECIMENOrdering Facility: [facility] Address: [address] [place] [address] Performed By: #### 5 7021-8 ####[facility] LABORATORYCLIA [id number] [address] [place] Hemoglobin (Bld) [Mass/Vol] 8.5 g/dL Low 11.5-15.5 [facility] Comment on above: Order Comment: Speci men Type: BLOOD SPECIMENOrdering Facility: [facility] Address: [address] [place] [address] Performed By: #### 5 7021-8 ####[facility] LABORATORYCLIA [id number] [address] [place] Immature granulocytes (Bld) [#/Vol] 0.09 10*3/uL Normal <0.10 [facility] Comment on above: Order Comment: Speci men Type: BLOOD SPECIMENOrdering Facility: [facility] Address: [address] [place] [address] Performed By: #### 5 7021-8 ####[facility] LABORATORYCLIA [id number] [address] [place] Immature granulocytes/100 WBC (Bld) 0.8 % Normal [facility] Comment on above: Order Comment: Speci men Type: BLOOD SPECIMENOrdering Facility: [facility] Address: [address] [place] [address] Performed By: #### 5 7021-8 ####[facility] LABORATORYCLIA [id number] [address] [place] Lymphocytes (Bld) [#/Vol] 3.75 10*3/uL Normal 1.00-4.00 [facility] Comment on above: Order Comment: Speci men Type: BLOOD SPECIMENOrdering Facility: [facility] Address: [address] [place] [address] Performed By: #### 5 7021-8 ####[facility]ORATORYCLIA [id number] [address] Lymphocytes/100 WBC (Bld) 35.1 % Normal [facility] Comment on above: Order Comment: Speci men Type: BLOOD SPECIMENOrdering Facility: [facility] Address: [address] [place] [address] Performed By: #### 5 7021-8 ####[facility] LABORATORYCLIA [id number] [address] MCH (RBC) [Entitic mass] 29.1 pg Normal 26.0-34.0 [facility] Comment on above: Order Comment: Speci men Type: BLOOD SPECIMENOrdering Facility: [facility] Address: [address] [place] [address] Performed By: #### 5 7021-8 ####[facility] LABORATORYCLIA [id number] [address] OF [facility] MCHC (RBC) [Mass/Vol] 31.4 g/dL Normal 30.5-36.0 [facility] Comment on above: Order Comment: Speci men Type: BLOOD SPECIMENOrdering Facility: [facility] Address: [address] [place] [address] Performed By: #### 5 7021-8 ####[facility] LABORATORYCLIA [id number] [address] MCV (RBC) [Entitic vol] 92.8 fL Normal 80.0-100.0 [facility] Comment on above: Order Comment: Speci men Type: BLOOD SPECIMENOrdering Facility: [facility] Address: [address] [place] [address] Performed By: #### 5 7021-8 ####[facility] LABORATORYCLIA [id number] [address] Monocytes (Bld) [#/Vol] 0.95 10*3/uL High <0.87 [facility] Comment on above: Order Comment: Speci men Type: BLOOD SPECIMENOrdering Facility: [facility] Address: [address] [address] Performed By: #### 5 7021-8 ####[facility] LABORATORYCLIA [id number] [address] [place] Monocytes/100 WBC (Bld) 8.9 % Normal A [facility] Comment on above: Order Comment: Speci men Type: BLOOD SPECIMENOrdering Facility: [facility] Address: [address] [place] [address] Performed By: #### 5 7021-8 ####[facility]ORATORYCLIA [id number] [place] [address] [place] Neutrophils (Bld) [#/Vol] 5.45 10*3/uL Normal 1.45-7.50 [facility] Comment on above: Order Comment: Speci men Type: BLOOD SPECIMENOrdering Facility: [facility] Address: [address] [place] [address] Performed By: #### 5 7021-8 ####[facility] LABORATORYCLIA [id number] [address] [place] Neutrophils/100 WBC (Bld) 51.0 % Normal [facility] Comment on above: Order Comment: Speci men Type: BLOOD SPECIMENOrdering Facility: [facility] Address: [address] [place] [address] Performed By: #### 5 7021-8 ####[facility]ORATORYCLIA [id number] [place] [address] [place] Nucleated RBC (Bld) [#/Vol] 0.02 10*3/uL High <0.01 [facility] Comment on above: Order Comment: Speci men Type: BLOOD SPECIMENOrdering Facility: [facility] Address: [address] [place] [address] Performed By: #### 5 7021-8 ####[facility]ATORYCLIA [id number] [place] [address] [place] Nucleated RBC/100 WBC (Bld) [Ratio] 0.2 /100 WBC Normal [facility] Comment on above: Order Comment: Speci men Type: BLOOD SPECIMENOrdering Facility: [facility] Address: [address] [place] [address] Performed By: #### 5 7021-8 ####[facility] LABORATORYCLIA [id number] [address] [place] Platelet mean volume (Bld) [Entitic vol] 9.2 fL Normal 9.0-12.7 [facility] Comment on above: Order Comment: Speci men Type: BLOOD SPECIMENOrdering Facility: [facility] Address: [address] [place], [place] [address] Performed By: #### 5 7021-8 ####[facility] LABORATORYCLIA [id number] [address] [place] Platelets (Bld) [#/Vol] 419 10*3/uL High 150-400 [facility] Comment on above: Order Comment: Speci men Type: BLOOD SPECIMENOrdering Facility: [facility] Address: [address] [place] [address] Performed By: #### 5 7021-8 ####[facility] LABORATORYCLIA [id number] [place] [address] [place] RBC (Bld) [#/Vol] 2.92 10*6/uL Low 3.90-5.20 [facility] Comment on above: Order Comment: Speci men Type: BLOOD SPECIMENOrdering Facility: [facility] Address: [address] [place], [place] [address] Performed By: #### 5 7021-8 ####[facility] LABORATORYCLIA [id number] [place] [address] [place] WBC (Bld) [#/Vol] 10.69 10*3/uL Normal 3.70-11.00 [facility] Comment on above: Order Comment: Speci men Type: BLOOD SPECIMENOrdering Facility: [facility] Address: [address] [place] [address] Performed By: #### 5 7021-8 ####[facility] [id number] [address] OF [facility] THERAPY NTon 12-20-2021 THERAPY NT HNO ID: [id number] Author: Jesus Enrique PTA Service: Physical Therapy Author Type: Lifts [employer] Cranes Inspector Type: Therapy (PT/OT/Speech/Resp) Filed: 12/20/2021 3:02 PM Note Text: Attestation signed by Mariza Joshua PT at 12/22/2021 4:16 PM I reviewed and agree with the documentation corresponding to this therapy visit. SIGNATURE: Mariza Joshua PT DATE: December 22, 2021 TIME: 4:16 PM Physical Therapy Treatment SERVICE DATE: 12/20/2021 SERVICE TIME: 1429 to 1453 ROOM: [place] [address] Recommended Discharge Disposition: Subacute/SNF Recommended Discharge Disposition [...] per chart review patient is from [facility]. 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 Stairs Curb Step [...] of b (more content not included)... Normal [facility] THERAPY NT HNO ID: [id number] Author: Jeanette Dale OTR/L Service: Occupational Therapy Author Type: Occupational Therapist Type: Therapy (PT/OT/Speech/Resp) Filed: 12/20/2021 12:08 PM Note Text: Occupational Therapy Treatment SERVICE DATE: 12/20/2021 SERVICE TIME: 1100 to 1124 ROOM: [id number] Recommended Discharge Disposition: Subacute/SNF Recommended Discharge Disposition [...] per chart review patient is from [facility]. Patient reports using walker and does her [...] Body Dressing (more content not included)... Normal [facility] Basic metabolic 2000 panelon 12-19-2021 Anion gap [Moles/Vol] 9 mmol/L Normal 9-18 [facility] Comment on above: Order Comment: Speci men Type: BLOOD SPECIMENOrdering Facility: [facility] Address: [address] [place] [address] Performed By: #### 2 4321-2 ####[facility]ATORYCLIA [id number] [place] [address] [place] Calcium [Mass/Vol] 9.1 mg/dL Normal 8.5-10.2 [facility] Comment on above: Order Comment: Speci men Type: BLOOD SPECIMENOrdering Facility: [facility] Address: [address] [place] [address] Performed By: #### 2 4321-2 ####[facility] LABORATORYCLIA [id number] [place] [address] [place] Chloride [Moles/Vol] 102 mmol/L Normal 97-105 [facility] Comment on above: Order Comment: Speci men Type: BLOOD SPECIMENOrdering Facility: [facility] Address: [address] [place] [address] Performed By: #### 2 4321-2 ####[facility] LABORATORYCLIA [id number] [place] [address] [place] CO2 [Moles/Vol] 30 mmol/L Normal 22-30 [facility] Comment on above: Order Comment: Speci men Type: BLOOD SPECIMENOrdering Facility: [facility] Address: [address] [place] [address] Performed By: #### 2 4321-2 ####[facility] LABORATORYCLIA [id number] [place] [address] [place] Creatinine [Mass/Vol] 0.73 mg/dL Normal 0.58-0.96 [facility] Comment on above: Order Comment: Speci men Type: BLOOD SPECIMENOrdering Facility: [facility] Address: [address] [place] [address] Performed By: #### 2 4321-2 ####[facility] LABORATORYCLIA [id number] [place] [id number] [place] ESTIMATED GLOMERULAR FILTRATION RATE 90 mL/min/1.73m??? Normal >=60 [facility] Comment on above: Order Comment: Kinsey herrera Type: BLOOD SPECIMENOrdering Facility: [facility] Address: [address] [place] [place] [address] Result Comment: Jessa mated Glomerular Filtration Rate [...] actual GFR. Performed By: #### 2 4321-2 ####[facility]ITALCLIA [id number] [place] [address] [place] Glucose [Mass/Vol] 101 mg/dL High 74-99 [facility] Comment on above: Order Comment: Kinsey herrera Type: BLOOD SPECIMENOrdering Facility: [facility] Address: [address] [place] [address] Result Comment: The [place] Diabetes Association (ADA) provides guidance for cutoff [...] Standards of Medical Care in Diabetes 2016, [place] Diabetes Association. Diabetes Care. 2016.39(Suppl 1). Performed By: #### 2 4321-2 ####[facility] LABORATORYCLIA [id number] [place] [id number] [place] Potassium [Moles/Vol] 3.9 mmol/L Normal 3.7-5.1 [facility] Comment on above: Order Comment: Speci men Type: BLOOD SPECIMENOrdering Facility: [facility] Address: [address] [place] [address] Performed By: #### 2 4321-2 ####[facility] LABORATORYCLIA [id number] [address] STATES OF [facility] Sodium [Moles/Vol] 141 mmol/L Normal 136-144 [facility] Comment on above: Order Comment: Speci men Type: BLOOD SPECIMENOrdering Facility: [facility] Address: [address] [place] [address] Performed By: #### 2 4321-2 ####[facility] LABORATORYCLIA [id number] [address] STATES OF [facility] Urea nitrogen [Mass/Vol] 9 mg/dL Normal 7-21 [facility] Comment on above: Order Comment: Speci men Type: BLOOD SPECIMENOrdering Facility: [facility] Address: [address] [place] [address] Performed By: #### 2 4321-2 ####[facility] LABORATORYCLIA [id number] [address] STATES OF [facility] CBC W Auto Differential pane l (Bld)on 12-19-2021 Basophils (Bld) [#/Vol] 0.06 10*3/uL Normal <0.11 [facility] Comment on above: Order Comment: Speci men Type: BLOOD SPECIMEN [facility] Address: [address] [place] [address] Performed By: #### T SCR #### [facility] CLIA [id number] [address] Basophils/100 WBC (Bld) 0.6 % Normal A [facility] Comment on above: Order Comment: Speci men Type: BLOOD SPECIMEN [facility] Address: [address] [place] [address] Performed By: #### T SCR #### [facility] CLIA [id number] [address] Differential cell count method Nom (Bld) Auto Normal [facility] Comment on above: Order Comment: Speci men Type: BLOOD SPECIMEN [facility] Address: [address] [place] [address] Performed By: #### T SCR #### [facility] CLIA [id number] [address] Eosinophils (Bld) [#/Vol] 0.29 10*3/uL Normal <0.46 [facility] Comment on above: Order Comment: Speci men Type: BLOOD SPECIMEN [facility] Address: [address] [place] [address] Performed By: #### T SCR #### [facility] CLIA [id number] [address] Eosinophils/100 WBC (Bld) 2.9 % Normal [facility] Comment on above: Order Comment: Speci men Type: BLOOD SPECIMEN [facility] Address: [address] [place] [address] Performed By: #### T SCR #### [facility] CLIA [id number] [address] Erythrocyte distribution width (RBC) [Ratio] 13.5 % Normal 11.5-15.0 [facility] Comment on above: Order Comment: Speci men Type: BLOOD SPECIMEN [facility] Address: [address] [place] [address] Performed By: #### T SCR #### [facility] CLIA [id number] [address] Hematocrit (Bld) [Volume fraction] 25.8 % Low 36.0-46.0 [facility] Comment on above: Order Comment: Speci men Type: BLOOD SPECIMEN [facility] Address: [address] [place] [address] Performed By: #### T SCR #### [facility] CLIA [id number] [address] [place] Hemoglobin (Bld) [Mass/Vol] 8.0 g/dL Low 11.5-15.5 [facility] Comment on above: Order Comment: Speci men Type: BLOOD SPECIMEN [facility] Address: [address] [place] [address] Performed By: #### T SCR #### [facility] CLIA [id number] [address] [place] Immature granulocytes (Bld) [#/Vol] 0.05 10*3/uL Normal <0.10 [facility] Comment on above: Order Comment: Speci men Type: BLOOD SPECIMEN [facility] Address: [address] [place] [address] Performed By: #### T SCR #### [facility] CLIA [id number] [address] STATES OF [facility] Immature granulocytes/100 WBC (Bld) 0.5 % Normal [facility] Comment on above: Order Comment: Speci men Type: BLOOD SPECIMEN [facility] Address: [address] [place] [address] Performed By: #### T SCR #### [facility] CLIA [id number] [address] [place] Lymphocytes (Bld) [#/Vol] 4.22 10*3/uL High 1.00-4.00 [facility] Comment on above: Order Comment: Speci men Type: BLOOD SPECIMEN [facility] Address: [address] [place] [address] Performed By: #### T SCR #### [facility] CLIA [id number] [address] [place] Lymphocytes/100 WBC (Bld) 41.6 % Normal [facility] Comment on above: Order Comment: Speci men Type: BLOOD SPECIMEN [facility] Address: [address] [place] [address] Performed By: #### T SCR #### [facility] CLIA [id number] [address] MCH (RBC) [Entitic mass] 29.0 pg Normal 26.0-34.0 [facility] Comment on above: Order Comment: Speci men Type: BLOOD SPECIMEN [facility] Address: [address] [place] [address] Performed By: #### T SCR #### [facility] CLIA [id number] [address] MCHC (RBC) [Mass/Vol] 31.0 g/dL Normal 30.5-36.0 [facility] Comment on above: Order Comment: Speci men Type: BLOOD SPECIMEN [facility] Address: [address] [place] [address] Performed By: #### T SCR #### [facility] CLIA [id number] [address] MCV (RBC) [Entitic vol] 93.5 fL Normal 80.0-100.0 [facility] Comment on above: Order Comment: Speci men Type: BLOOD SPECIMEN [facility] Address: [address] [place] [address] Performed By: #### T SCR #### [facility] CLIA [id number] [address] Monocytes (Bld) [#/Vol] 0.99 10*3/uL High <0.87 [facility] Comment on above: Order Comment: Speci men Type: BLOOD SPECIMEN [facility] Address: [address] [place] [address] Performed By: #### T SCR #### [facility] CLIA [id number] [address] Monocytes/100 WBC (Bld) 9.8 % Normal A [facility] Comment on above: Order Comment: Speci men Type: BLOOD SPECIMEN [facility] Address: [address] [place] [address] Performed By: #### T SCR #### [facility] CLIA [id number] [address] [place] Neutrophils (Bld) [#/Vol] 4.54 10*3/uL Normal 1.45-7.50 [facility] Comment on above: Order Comment: Speci men Type: BLOOD SPECIMEN [facility] Address: [address] [place] [address] Performed By: #### T SCR #### [facility] CLIA [id number] [address] Neutrophils/100 WBC (Bld) 44.6 % Normal [facility] Comment on above: Order Comment: Speci men Type: BLOOD SPECIMEN [facility] Address: [address] [place] [address] Performed By: #### T SCR #### [facility] CLIA [id number] [address] Nucleated RBC (Bld) [#/Vol] 10*3/uL Normal <0.01 [facility] Comment on above: Order Comment: Speci men Type: BLOOD SPECIMEN [facility] Address: [address] [place] [address] Performed By: #### T SCR #### [facility] CLIA [id number] [address] [place] Nucleated RBC/100 WBC (Bld) [Ratio] 0.0 /100 WBC Normal [facility] Comment on above: Order Comment: Speci men Type: BLOOD SPECIMEN [facility] Address: [address] [place] [address] Performed By: #### T SCR #### [facility] CLIA [id number] [address] [place] Platelet mean volume (Bld) [Entitic vol] 9.5 fL Normal 9.0-12.7 [facility] Comment on above: Order Comment: Speci men Type: BLOOD SPECIMEN [facility] Address: [address] [place] [address] Performed By: #### T SCR #### [facility] CLIA [id number] [address] OF [facility] Platelets (Bld) [#/Vol] 375 10*3/uL Normal 150-400 [facility] Comment on above: Order Comment: Speci men Type: BLOOD SPECIMEN [facility] Address: [address] [place] [address] Performed By: #### T SCR #### [facility] [place] [id number] [address] RBC (Bld) [#/Vol] 2.76 10*6/uL Low 3.90-5.20 [facility] Comment on above: Order Comment: Speci men Type: BLOOD SPECIMEN [facility] Address: [address] [place] [address] Performed By: #### T SCR #### [facility] [place] [id number] [address] WBC (Bld) [#/Vol] 10.15 10*3/uL Normal 3.70-11.00 [facility] Comment on above: Order Comment: Speci men Type: BLOOD SPECIMEN [facility] Address: [address] [place] [address] Performed By: #### T SCR #### [facility] [place] [id number] [address] NURSING PROGon 12-19-2021 NURSING PROG HNO ID: [id number] Author: Colten Hurley RN Service: Nursing Author Type: Registered Nurse Type: Nursing Progress Note Filed: 12/18/2021 11:13 PM Note Text: Other: okay to keep IV out per primary team. Patient to be discharged in am with pre-auth from insurance Normal [facility] NURSING PROG HNO ID: [id number] Author: Colten Hurley RN Service: Nursing Author Type: Registered Nurse Type: Nursing Progress Note Filed: 12/18/2021 11:00 PM Note Text: Other: holding overnight houseperson q4 vitals until venipunture. Patient sleep important for elderly patient with hx of memory impairment. Normal [facility] THERAPY NTon 12-19-2021 THERAPY NT HNO ID: [id number] Author: Jesus Enrique PTA Service: Physical Therapy Author Type: Lifts [employer] Cranes Inspector Type: Therapy (PT/OT/Speech/Resp) Filed: 12/19/2021 3:05 PM Note Text: Attestation signed by Rae Garza PT at 12/19/2021 4:31 PM I reviewed and agree with the documentation corresponding to this therapy visit. SIGNATURE: Rae Garza PT DATE: December 19, 2021 TIME: 4:31 PM Physical Therapy Treatment SERVICE DATE: 12/19/2021 SERVICE TIME: 1433 to 1457 ROOM: [place] [address] Recommended Discharge Disposition: Subacute/SNF Recommended Discharge Disposition [...] per chart review patient is from [facility]. 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 Stairs Curb Step [...] balance wit (more content not included)... Normal [facility] Basic metabolic 2000 panelon 12-18-2021 Anion gap [Moles/Vol] 11 mmol/L Normal 9-18 [facility] Comment on above: Order Comment: Speci men Type: BLOOD SPECIMENOrdering Facility: [facility] Address: [address] [place] [address] Performed By: #### 2 4321-2 ####[facility] LABORATORYCLIA [id number] [place] [address] [place] Calcium [Mass/Vol] 8.8 mg/dL Normal 8.5-10.2 [facility] Comment on above: Order Comment: Speci men Type: BLOOD SPECIMENOrdering Facility: [facility] Address: [address] [place] [address] Performed By: #### 2 4321-2 ####[facility] LABORATORYCLIA [id number] [place] [address] [place] Chloride [Moles/Vol] 101 mmol/L Normal 97-105 [facility] Comment on above: Order Comment: Speci men Type: BLOOD SPECIMENOrdering Facility: [facility] Address: [address] [place] [address] Performed By: #### 2 4321-2 ####[facility] LABORATORYCLIA [id number] [address] STATES [facility] CO2 [Moles/Vol] 27 mmol/L Normal 22-30 [facility] Comment on above: Order Comment: Speci men Type: BLOOD SPECIMENOrdering Facility: [facility] Address: [address] [place] [address] Performed By: #### 2 4321-2 ####[facility] LABORATORYCLIA [id number] [address] Creatinine [Mass/Vol] 0.66 mg/dL Normal 0.58-0.96 [facility] Comment on above: Order Comment: Speci men Type: BLOOD SPECIMENOrdering Facility: [facility] Address: [address] [place] [address] Performed By: #### 2 4321-2 ####[facility]ITALIA [id number] [address] ESTIMATED GLOMERULAR FILTRATION RATE 96 mL/min/1.73m??? Normal >=60 [facility] Comment on above: Order Comment: Speci men Type: BLOOD SPECIMENOrdering Facility: [facility] Address: [address] [place] [address] Result Comment: Jessa mated Glomerular Filtration Rate [...] actual GFR. Performed By: #### 2 4321-2 ####[facility] LABORATORYCLIA [id number] [address] Glucose [Mass/Vol] 111 mg/dL High 74-99 [facility] Comment on above: Order Comment: Speci men Type: BLOOD SPECIMENOrdering Facility: [facility] Address: [address] [place] [address] Result Comment: The [place] Diabetes Association (ADA) provides guidance for cutoff [...] Standards of Medical Care in Diabetes 2016, [place] Diabetes Association. Diabetes Care. 2016.39(Suppl 1). Performed By: #### 2 4321-2 ####[facility] LABORATORYCLIA [id number] [place] [address] [place] Potassium [Moles/Vol] 4.0 mmol/L Normal 3.7-5.1 [facility] Comment on above: Order Comment: Speci men Type: BLOOD SPECIMENOrdering Facility: [facility] Address: [address] [place] [address] Performed By: #### 2 1-2 ####[facility] LABORATORYCLIA [id number] [place] [address] [place] Sodium [Moles/Vol] 139 mmol/L Normal 136-144 [facility] Comment on above: Order Comment: Speci men Type: BLOOD SPECIMENOrdering Facility: [facility] Address: [address] [place] [address] Performed By: #### 2 4321-2 ####[facility] LABORATORYCLIA [id number] [place] [address] [place] Urea nitrogen [Mass/Vol] 8 mg/dL Normal 7-21 [facility] Comment on above: Order Comment: Speci men Type: BLOOD SPECIMENOrdering Facility: [facility] Address: [address] [place] [address] Performed By: #### 2 4321-2 ####[facility] LABORATORYCLIA [id number] [address] STATES OF [facility] CBC W Auto Differential pane l (Bld)on 12-18-2021 Basophils (Bld) [#/Vol] 0.03 10*3/uL Normal <0.11 [facility] Comment on above: Order Comment: Speci men Type: BLOOD SPECIMENOrdering Facility: [facility] Address: [address] [place] [address] Performed By: #### 5 7021-8 ####[facility] LABORATORYCLIA [id number] [address] Basophils/100 WBC (Bld) 0.3 % Normal A [facility] Comment on above: Order Comment: Speci men Type: BLOOD SPECIMENOrdering Facility: [facility] Address: [address] [place] [address] Performed By: #### 5 7021-8 ####[facility] LABORATORYCLIA [id number] [address] Differential cell count method Nom (Bld) Auto Normal [facility] Comment on above: Order Comment: Speci men Type: BLOOD SPECIMENOrdering Facility: [facility] Address: [address] [place] [address] Performed By: #### 5 7021-8 ####[facility] LABORATORYCLIA [id number] [address] [place] Eosinophils (Bld) [#/Vol] 0.41 10*3/uL Normal <0.46 [facility] Comment on above: Order Comment: Speci men Type: BLOOD SPECIMENOrdering Facility: [facility] Address: [address] [place] [address] Performed By: #### 5 7021-8 ####[facility] LABORATORYCLIA [id number] [address] Eosinophils/100 WBC (Bld) 4.7 % Normal [facility] Comment on above: Order Comment: Speci men Type: BLOOD SPECIMENOrdering Facility: [facility] Address: [address] [place], [place] [address] Performed By: #### 5 7021-8 ####[facility] LABORATORYCLIA [id number] [address] Erythrocyte distribution width (RBC) [Ratio] 13.2 % Normal 11.5-15.0 [facility] Comment on above: Order Comment: Speci men Type: BLOOD SPECIMENOrdering Facility: [facility] Address: [address] [place] [address] Performed By: #### 5 7021-8 ####[facility] LABORATORYCLIA [id number] [address] OF [facility] Hematocrit (Bld) [Volume fraction] 27.1 % Low 36.0-46.0 [facility] Comment on above: Order Comment: Speci men Type: BLOOD SPECIMENOrdering Facility: [facility] Address: [address] [place] [address] Performed By: #### 5 7021-8 ####[facility] LABORATORYCLIA [id number] [address] OF [facility] Hemoglobin (Bld) [Mass/Vol] 8.6 g/dL Low 11.5-15.5 [facility] Comment on above: Order Comment: Speci men Type: BLOOD SPECIMENOrdering Facility: [facility] Address: [address] [place] [address] Performed By: #### 5 7021-8 ####[facility] LABORATORYCLIA [id number] [address] [place] Immature granulocytes (Bld) [#/Vol] 0.04 10*3/uL Normal <0.10 [facility] Comment on above: Order Comment: Speci men Type: BLOOD SPECIMENOrdering Facility: [facility] Address: [address] [place] [address] Performed By: #### 5 7021-8 ####[facility] LABORATORYCLIA [id number] [address] [place] Immature granulocytes/100 WBC (Bld) 0.5 % Normal [facility] Comment on above: Order Comment: Speci men Type: BLOOD SPECIMENOrdering Facility: [facility] Address: [address] [place] [address] Performed By: #### 5 7021-8 ####[facility] LABORATORYCLIA [id number] [address] [place] Lymphocytes (Bld) [#/Vol] 2.72 10*3/uL Normal 1.00-4.00 [facility] Comment on above: Order Comment: Speci men Type: BLOOD SPECIMENOrdering Facility: [facility] Address: [address] [place] [address] Performed By: #### 5 7021-8 ####[facility] LABORATORYCLIA [id number] [address] Lymphocytes/100 WBC (Bld) 30.9 % Normal [facility] Comment on above: Order Comment: Speci men Type: BLOOD SPECIMENOrdering Facility: [facility] Address: [address] [place] [address] Performed By: #### 5 7021-8 ####[facility] LABORATORYCLIA [id number] [address] [place] MCH (RBC) [Entitic mass] 29.6 pg Normal 26.0-34.0 [facility] Comment on above: Order Comment: Speci men Type: BLOOD SPECIMENOrdering Facility: [facility] Address: [address] [place] [address] Performed By: #### 5 7021-8 ####[facility] LABORATORYCLIA [id number] [address] [place] MCHC (RBC) [Mass/Vol] 31.7 g/dL Normal 30.5-36.0 [facility] Comment on above: Order Comment: Speci men Type: BLOOD SPECIMENOrdering Facility: [facility] Address: [address] [place] [address] Performed By: #### 5 7021-8 ####[facility] LABORATORYCLIA [id number] [address] [place] MCV (RBC) [Entitic vol] 93.1 fL Normal 80.0-100.[address] [facility] Comment on above: Order Comment: Speci men Type: BLOOD SPECIMENOrdering Facility: [facility] Address: [address] [place] [address] Performed By: #### 5 7021-8 ####[facility] LABORATORYCLIA [id number] [address] [place] Monocytes (Bld) [#/Vol] 0.84 10*3/uL Normal <0.87 [facility] Comment on above: Order Comment: Speci men Type: BLOOD SPECIMENOrdering Facility: [facility] Address: [address] [place] [address] Performed By: #### 5 7021-8 ####[facility] LABORATORYCLIA [id number] [address] Monocytes/100 WBC (Bld) 9.5 % Normal A [facility] Comment on above: Order Comment: Speci men Type: BLOOD SPECIMENOrdering Facility: [facility] Address: [address] [place] [address] Performed By: #### 5 7021-8 ####[facility] LABORATORYCLIA [id number] [address] [place] Neutrophils (Bld) [#/Vol] 4.76 10*3/uL Normal 1.45-7.50 [facility] Comment on above: Order Comment: Speci men Type: BLOOD SPECIMENOrdering Facility: [facility] Address: [address] [place] [address] Performed By: #### 5 7021-8 ####[facility] LABORATORYCLIA [id number] [address] [place] Neutrophils/100 WBC (Bld) 54.1 % Normal [facility] Comment on above: Order Comment: Speci men Type: BLOOD SPECIMENOrdering Facility: [facility] Address: [address] Performed By: #### 5 7021-8 ####[facility] LABORATORYCLIA [id number] [address] Nucleated RBC (Bld) [#/Vol] 10*3/uL Normal <0.01 [facility] Comment on above: Order Comment: Speci men Type: BLOOD SPECIMENOrdering Facility: [facility] Address: [address] [address] Performed By: #### 5 7021-8 ####[facility] LABORATORYCLIA [id number] [address] OF [facility] Nucleated RBC/100 WBC (Bld) [Ratio] 0.0 /100 WBC Normal [facility] Comment on above: Order Comment: Speci men Type: BLOOD SPECIMENOrdering Facility: [facility] Address: [address] [place], [place] [id number] Performed By: #### 5 7021-8 ####[facility] LABORATORYCLIA [id number] [address] [place] Platelet mean volume (Bld) [Entitic vol] 9.9 fL Normal 9.0-12.7 [facility] Comment on above: Order Comment: Speci men Type: BLOOD SPECIMENOrdering Facility: [facility] Address: [address] [place] [address] Performed By: #### 5 7021-8 ####[facility] LABORATORYCLIA [id number] [address] [place] Platelets (Bld) [#/Vol] 327 10*3/uL Normal 150-400 [facility] Comment on above: Order Comment: Speci men Type: BLOOD SPECIMENOrdering Facility: [facility] Address: [address] Performed By: #### 5 7021-8 ####[facility] LABORATORYCLIA [id number] [address] [place] RBC (Bld) [#/Vol] 2.91 10*6/uL Low 3.90-5.20 [facility] Comment on above: Order Comment: Speci men Type: BLOOD SPECIMENOrdering Facility: [facility] Address: [address] [place], [place] [address] Performed By: #### 5 7021-8 ####[facility] LABORATORYCLIA [id number] [address] WBC (Bld) [#/Vol] 8.80 10*3/uL Normal 3.70-11.00 [facility] Comment on above: Order Comment: Kinsey men Type: BLOOD SPECIMENOrdering Facility: [facility] Address: [address] [place], [place] [address] Performed By: #### 5 7021-8 ####[facility] LABORATORYCLIA [id number] [address] THERAPY NTon 12-18-2021 THERAPY NT HNO ID: [id number] Author: Adryan Jonas, PT Service: Physical Therapy Author Type: Physical Therapist Type: Therapy (PT/OT/Speech/Resp) Filed: 12/18/2021 11:28 AM Note Text: Physical Therapy Treatment SERVICE DATE: 12/18/2021 SERVICE TIME: 1047 to 1117 ROOM: [place] [address] Recommended Discharge Disposition: Subacute/SNF Recommended Discharge Disposition [...] per chart review patient is from [facility]. 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 Stairs Curb Step [...] able to maintain balance while turning head/trunk -HLM: 5: Standing (1 or more minutes) Learning/Educational [...] gait and mobility-other Interventions Provided: Therapeutic Exercise (54177);Therapeutic Activity (82446);Gait Training (92580) Therapeutic Exercise (98040) Treatment Minutes: 1 (more content not included)... Normal [facility] Basic metabolic 2000 panelon 12-17-2021 Anion gap [Moles/Vol] 8 mmol/L Low 9-18 [facility] Comment on above: Order Comment: Speci men Type: BLOOD SPECIMENOrdering Facility: [facility] Address: [address] [place] [address] Performed By: #### 2 4321-2 ####[facility] LABORATORYCLIA [id number] [place] [address] [place] Calcium [Mass/Vol] 8.3 mg/dL Low 8.5-10.2 [facility] Comment on above: Order Comment: Kinsey herrera Type: BLOOD SPECIMENOrdering Facility: [facility] Address: [address] [place] [address] Performed By: #### 2 4321-2 ####[facility] LABORATORYCLIA [id number] [place] [address] [place] Chloride [Moles/Vol] 102 mmol/L Normal 97-105 [facility] Comment on above: Order Comment: Micahi men Type: BLOOD SPECIMENOrdering Facility: [facility] Address: [address] [place] [address] Performed By: #### 2 4321-2 ####[facility] LABORATORYCLIA [id number] [place] [address] [place] CO2 [Moles/Vol] 26 mmol/L Normal 22-30 [facility] Comment on above: Order Comment: Speci javier Type: BLOOD SPECIMENOrdering Facility: [facility] Address: [address] [place] [address] Performed By: #### 2 4321-2 ####[facility] LABORATORYCLIA [id number] [address] STATES OF [facility] Creatinine [Mass/Vol] 0.62 mg/dL Normal 0.58-0.96 [facility] Comment on above: Order Comment: Speci men Type: BLOOD SPECIMENOrdering Facility: [facility] Address: [address] [place] [address] Performed By: #### 2 4321-2 ####[facility] HOSPITALIA [id number] [address] ESTIMATED GLOMERULAR FILTRATION RATE 98 mL/min/1.73m??? Normal >=60 [facility] Comment on above: Order Comment: Specrodo men Type: BLOOD SPECIMENOrdering Facility: [facility] Address: [address] [place] [address] Result Comment: Jessa mated Glomerular Filtration Rate [...] actual GFR. Performed By: #### 2 4321-2 ####[facility] LABORATORYCLIA [id number] [address] [place] Glucose [Mass/Vol] 122 mg/dL High 74-99 [facility] Comment on above: Order Comment: Kinsey herrera Type: BLOOD SPECIMENOrdering Facility: [facility] Address: [address] [place] [address] Result Comment: The [place] Diabetes Association (ADA) provides guidance for cutoff [...] Standards of Medical Care in Diabetes 2016, [place] Diabetes Association. Diabetes Care. 2016.39(Suppl 1). Performed By: #### 2 4321-2 ####[facility] LABORATORYCLIA [id number] [address] STATES OF [facility] Potassium [Moles/Vol] 3.9 mmol/L Normal 3.7-5.1 [facility] Comment on above: Order Comment: Kinsey herrera Type: BLOOD SPECIMENOrdering Facility: [facility] Address: [address] [place] [address] Performed By: #### 2 4321-2 ####[facility] LABORATORYCLIA [id number] [address] Sodium [Moles/Vol] 136 mmol/L Normal 136-144 [facility] Comment on above: Order Comment: Kinsey herrera Type: BLOOD SPECIMENOrdering Facility: [facility] Address: [address] [place] [address] Performed By: #### 2 4321-2 ####[facility] LABORATORYCLIA [id number] [address] Urea nitrogen [Mass/Vol] 9 mg/dL Normal 7-21 [facility] Comment on above: Order Comment: Micahi javier Type: BLOOD SPECIMENOrdering Facility: [facility] Address: [address] [place] [address] Performed By: #### 2 4321-2 ####[facility] LABORATORYCLIA [id number] [address] [place] CBC W Auto Differential pane l (Bld)on 12-17-2021 Basophils (Bld) [#/Vol] 0.04 10*3/uL Normal <0.11 [facility] Comment on above: Order Comment: Speci men Type: BLOOD SPECIMENOrdering Facility: [facility] Address: [address] [place] [address] Performed By: #### 5 7021-8 ####[facility] LABORATORYCLIA [id number] [address] [place] Basophils/100 WBC (Bld) 0.4 % Normal A [facility] Comment on above: Order Comment: Speci men Type: BLOOD SPECIMENOrdering Facility: [facility] Address: [address] [place] [address] Performed By: #### 5 7021-8 ####[facility] LABORATORYCLIA [id number] [address] Differential cell count method Nom (Bld) Auto Normal [facility] Comment on above: Order Comment: Speci men Type: BLOOD SPECIMENOrdering Facility: [facility] Address: [address] [place] [address] Performed By: #### 5 7021-8 ####[facility] LABORATORYCLIA [id number] [address] STATES OF [facility] Eosinophils (Bld) [#/Vol] 0.51 10*3/uL High <0.46 [facility] Comment on above: Order Comment: Speci men Type: BLOOD SPECIMENOrdering Facility: [facility] Address: [address] [place] [address] Performed By: #### 5 7021-8 ####[facility] LABORATORYCLIA [id number] [address] Eosinophils/100 WBC (Bld) 4.5 % Normal [facility] Comment on above: Order Comment: Speci men Type: BLOOD SPECIMENOrdering Facility: [facility] Address: [address] [place] [address] Performed By: #### 5 7021-8 ####[facility] LABORATORYCLIA [id number] [address] Erythrocyte distribution width (RBC) [Ratio] 13.4 % Normal 11.5-15.0 [facility] Comment on above: Order Comment: Speci men Type: BLOOD SPECIMENOrdering Facility: [facility] Address: [facility] [place] [address] Performed By: #### 5 7021-8 ####[facility] LABORATORYCLIA [id number] [address] OF [facility] Hematocrit (Bld) [Volume fraction] 25.9 % Low 36.0-46.0 [facility] Comment on above: Order Comment: Speci men Type: BLOOD SPECIMENOrdering Facility: [facility] Address: [address] [place] [address] Performed By: #### 5 7021-8 ####[facility] LABORATORYCLIA [id number] [address] [place] Hemoglobin (Bld) [Mass/Vol] 8.2 g/dL Low 11.5-15.5 [facility] Comment on above: Order Comment: Speci men Type: BLOOD SPECIMENOrdering Facility: [facility] Address: [address] [place] [address] Performed By: #### 5 7021-8 ####[facility] LABORATORYCLIA [id number] [address] [place] Immature granulocytes (Bld) [#/Vol] 0.04 10*3/uL Normal <0.10 [facility] Comment on above: Order Comment: Speci men Type: BLOOD SPECIMENOrdering Facility: [facility] Address: [address] [place] [address] Performed By: #### 5 7021-8 ####[facility] LABORATORYCLIA [id number] [address] Immature granulocytes/100 WBC (Bld) 0.4 % Normal [facility] Comment on above: Order Comment: Speci men Type: BLOOD SPECIMENOrdering Facility: [facility] Address: [address] [place] [address] Performed By: #### 5 7021-8 ####[facility] LABORATORYCLIA [id number] [address] [place] Lymphocytes (Bld) [#/Vol] 2.84 10*3/uL Normal 1.00-4.00 [facility] Comment on above: Order Comment: Speci men Type: BLOOD SPECIMENOrdering Facility: [facility] Address: [address] [place] [address] Performed By: #### 5 7021-8 ####[facility] LABORATORYCLIA [id number] [address] Lymphocytes/100 WBC (Bld) 25.1 % Normal [facility] Comment on above: Order Comment: Speci men Type: BLOOD SPECIMENOrdering Facility: [facility] Address: [address] [place] [address] Performed By: #### 5 7021-8 ####[facility] LABORATORYCLIA [id number] [address] MCH (RBC) [Entitic mass] 29.8 pg Normal 26.0-34.0 [facility] Comment on above: Order Comment: Speci men Type: BLOOD SPECIMENOrdering Facility: [facility] Address: [address] [place] [address] Performed By: #### 5 7021-8 ####[facility] LABORATORYCLIA [id number] [address] STATES OF [facility] MCHC (RBC) [Mass/Vol] 31.7 g/dL Normal 30.5-36.0 [facility] Comment on above: Order Comment: Speci men Type: BLOOD SPECIMENOrdering Facility: [facility] Address: [address] [place] [address] Performed By: #### 5 7021-8 ####[facility] LABORATORYCLIA [id number] [address] OF [facility] MCV (RBC) [Entitic vol] 94.2 fL Normal 80.0-100.[address] [facility] Comment on above: Order Comment: Speci men Type: BLOOD SPECIMENOrdering Facility: [facility] Address: [address] [place] [address] Performed By: #### 5 7021-8 ####[facility] LABORATORYCLIA [id number] [address] [place] Monocytes (Bld) [#/Vol] 1.28 10*3/uL High <0.87 [facility] Comment on above: Order Comment: Speci men Type: BLOOD SPECIMENOrdering Facility: [facility] Address: [address] [place] [address] Performed By: #### 5 7021-8 ####[facility] LABORATORYCLIA [id number] [address] [place] Monocytes/100 WBC (Bld) 11.3 % Normal A [facility] Comment on above: Order Comment: Speci men Type: BLOOD SPECIMENOrdering Facility: [facility] Address: [address] [place] [address] Performed By: #### 5 7021-8 ####[facility] LABORATORYCLIA [id number] [address] [place] Neutrophils (Bld) [#/Vol] 6.61 10*3/uL Normal 1.45-7.50 [facility] Comment on above: Order Comment: Speci men Type: BLOOD SPECIMENOrdering Facility: [facility] Address: [address] [place] [address] Performed By: #### 5 7021-8 ####[facility]ORATORYCLIA [id number] [address] [place] Neutrophils/100 WBC (Bld) 58.3 % Normal [facility] Comment on above: Order Comment: Speci men Type: BLOOD SPECIMENOrdering Facility: [facility] Address: [address] [place] [address] Performed By: #### 5 7021-8 ####[facility] LABORATORYCLIA [id number] [place] [address] [place] Nucleated RBC (Bld) [#/Vol] 10*3/uL Normal <0.01 [facility] Comment on above: Order Comment: Speci men Type: BLOOD SPECIMENOrdering Facility: [facility] Address: [address] [place] [address] Performed By: #### 5 7021-8 ####[facility] LABORATORYCLIA [id number] [place] [address] [place] Nucleated RBC/100 WBC (Bld) [Ratio] 0.0 /100 WBC Normal [facility] Comment on above: Order Comment: Speci men Type: BLOOD SPECIMENOrdering Facility: [facility] Address: [address] [place] [address] Performed By: #### 5 7021-8 ####[facility] LABORATORYCLIA [id number] [place] [address] [place] Platelet mean volume (Bld) [Entitic vol] 10.3 fL Normal 9.0-12.7 [facility] Comment on above: Order Comment: Speci men Type: BLOOD SPECIMENOrdering Facility: [facility] Address: [address] [place] [address] Performed By: #### 5 7021-8 ####[facility] LABORATORYCLIA [id number] [address] [place] Platelets (Bld) [#/Vol] 259 10*3/uL Normal 150-400 [facility] Comment on above: Order Comment: Speci men Type: BLOOD SPECIMENOrdering Facility: [facility] Address: [address] Performed By: #### 5 7021-8 ####[facility] LABORATORYCLIA [id number] [place] [address] [place] RBC (Bld) [#/Vol] 2.75 10*6/uL Low 3.90-5.20 [facility] Comment on above: Order Comment: Speci men Type: BLOOD SPECIMENOrdering Facility: [facility] Address: [address] [place] [address] Performed By: #### 5 7021-8 ####[facility] LABORATORYCLIA [id number] [place] [address] [facility] [place] WBC (Bld) [#/Vol] 11.32 10*3/uL High 3.70-11.00 [facility] Comment on above: Order Comment: Speci men Type: BLOOD SPECIMENOrdering Facility: [facility] Address: [address] Performed By: #### 5 7021-8 ####[facility] LABORATORYCLIA [id number] [place] [address] [facility] THERAPY NTon 12-17-2021 THERAPY NT HNO ID: [id number] Author: Jesus Enrique PTA Service: Physical Therapy Author Type: [employer] Inspector Type: Therapy (PT/OT/Speech/Resp) Filed: 12/17/2021 11:50 AM Note Text: Attestation signed by Rae Garza PT at 12/17/2021 4:31 PM I reviewed and agree with the documentation corresponding to this therapy visit. SIGNATURE: Rae Garza PT DATE: December 17, 2021 TIME: 4:31 PM Physical Therapy Treatment SERVICE DATE: 12/17/2021 SERVICE TIME: 1048 to 1113 ROOM: [place] [address] Recommended Discharge Disposition: Subacute/SNF Recommended Discharge Disposition [...] per chart review patient is from [facility]. Patient reports using walker and does her [...] to maintain (more content not included)... Normal [facility] Basic metabolic 2000 panelon 12-16-2021 Anion gap [Moles/Vol] 8 mmol/L Low 9-18 [facility] Comment on above: Order Comment: Speci men Type: BLOOD SPECIMENOrdering Facility: [facility] Address: [address] [place] [address] Performed By: #### 2 4321-2 ####[facility] LABORATORYCLIA [id number] [place] [address] [place] Calcium [Mass/Vol] 8.4 mg/dL Low 8.5-10.2 [facility] Comment on above: Order Comment: Speci men Type: BLOOD SPECIMENOrdering Facility: [facility] Address: [address] [place] [address] Performed By: #### 2 4321-2 ####[facility] LABORATORYCLIA [id number] [place] [address] [place] Chloride [Moles/Vol] 102 mmol/L Normal 97-105 [facility] Comment on above: Order Comment: Speci men Type: BLOOD SPECIMENOrdering Facility: [facility] Address: [address] [place] [address] Performed By: #### 2 4321-2 ####[facility] LABORATORYCLIA [id number] [address] [place] CO2 [Moles/Vol] 27 mmol/L Normal 22-30 [facility] Comment on above: Order Comment: Speci men Type: BLOOD SPECIMENOrdering Facility: [facility] Address: [address] [place] [address] Performed By: #### 2 4321-2 ####[facility] LABORATORYCLIA [id number] [address] [place] Creatinine [Mass/Vol] 0.80 mg/dL Normal 0.58-0.96 [facility] Comment on above: Order Comment: Speci men Type: BLOOD SPECIMENOrdering Facility: [facility] Address: [address] [place] [address] Performed By: #### 2 4321-2 ####[facility] HOSPITALIA [id number] [address] ESTIMATED GLOMERULAR FILTRATION RATE 81 mL/min/1.73m??? Normal >=60 [facility] Comment on above: Order Comment: Speci men Type: BLOOD SPECIMENOrdering Facility: [facility] Address: [address] [place] [address] Result Comment: Jessa mated Glomerular Filtration Rate [...] actual GFR. Performed By: #### 2 4321-2 ####[facility] LABORATORYCLIA [id number] [address] [place] Glucose [Mass/Vol] 106 mg/dL High 74-99 [facility] Comment on above: Order Comment: Speci men Type: BLOOD SPECIMENOrdering Facility: [facility] Address: [address] [place] [address] Result Comment: The [place] Diabetes Association (ADA) provides guidance for cutoff [...] Standards of Medical Care in Diabetes 2016, [place] Diabetes Association. Diabetes Care. 2016.39(Suppl 1). Performed By: #### 2 4321-2 ####[facility] LABORATORYCLIA [id number] [place] [address] [place] Potassium [Moles/Vol] 3.8 mmol/L Normal 3.7-5.1 [facility] Comment on above: Order Comment: Speci men Type: BLOOD SPECIMENOrdering Facility: [facility] Address: [address] [place] [address] Performed By: #### 2 1-2 ####[facility] LABORATORYCLIA [id number] [address] [place] Sodium [Moles/Vol] 137 mmol/L Normal 136-144 [facility] Comment on above: Order Comment: Speci men Type: BLOOD SPECIMENOrdering Facility: [facility] Address: [address] [place] [address] Performed By: #### 2 1-2 ####[facility] LABORATORYCLIA [id number] [place] [address] [place] Urea nitrogen [Mass/Vol] 11 mg/dL Normal 7-21 [facility] Comment on above: Order Comment: Speci men Type: BLOOD SPECIMENOrdering Facility: [facility] Address: [address] [place] [address] Performed By: #### 2 4321-2 ####[facility] LABORATORYCLIA [id number] [address] STATES OF [facility] CBC W Auto Differential pane l (Bld)on 12-16-2021 Basophils (Bld) [#/Vol] 0.04 10*3/uL Normal <0.11 [facility] Comment on above: Order Comment: Speci men Type: BLOOD SPECIMENOrdering Facility: [facility] Address: [address] [place] [address] Performed By: #### 5 7021-8 ####[facility] LABORATORYCLIA [id number] [address] Basophils/100 WBC (Bld) 0.4 % Normal A [facility] Comment on above: Order Comment: Speci men Type: BLOOD SPECIMENOrdering Facility: [facility] Address: [address] [place] [address] Performed By: #### 5 7021-8 ####[facility] LABORATORYCLIA [id number] [address] Differential cell count method Nom (Bld) Auto Normal [facility] Comment on above: Order Comment: Speci men Type: BLOOD SPECIMENOrdering Facility: [facility] Address: [address] [place] [address] Performed By: #### 5 7021-8 ####[facility] LABORATORYCLIA [id number] [address] [place] Eosinophils (Bld) [#/Vol] 0.30 10*3/uL Normal <0.46 [facility] Comment on above: Order Comment: Speci men Type: BLOOD SPECIMENOrdering Facility: [facility] Address: [address] [place] [address] Performed By: #### 5 7021-8 ####[facility] LABORATORYCLIA [id number] [address] Eosinophils/100 WBC (Bld) 2.7 % Normal [facility] Comment on above: Order Comment: Speci men Type: BLOOD SPECIMENOrdering Facility: [facility] Address: [address] [place] [address] Performed By: #### 5 7021-8 ####[facility] LABORATORYCLIA [id number] [address] Erythrocyte distribution width (RBC) [Ratio] 13.5 % Normal 11.5-15.0 [facility] Comment on above: Order Comment: Speci men Type: BLOOD SPECIMENOrdering Facility: [facility] Address: [address] [place] [address] Performed By: #### 5 7021-8 ####[facility] LABORATORYCLIA [id number] [address] [place] Hematocrit (Bld) [Volume fraction] 28.9 % Low 36.0-46.0 [facility] Comment on above: Order Comment: Speci men Type: BLOOD SPECIMENOrdering Facility: [facility] Address: [address] [place] [address] Performed By: #### 5 7021-8 ####[facility] LABORATORYCLIA [id number] [address] [place] Hemoglobin (Bld) [Mass/Vol] 9.0 g/dL Low 11.5-15.5 [facility] Comment on above: Order Comment: Speci men Type: BLOOD SPECIMENOrdering Facility: [facility] Address: [address] [place] [address] Performed By: #### 5 7021-8 ####[facility] LABORATORYCLIA [id number] [address] [place] Immature granulocytes (Bld) [#/Vol] 0.04 10*3/uL Normal <0.10 [facility] Comment on above: Order Comment: Speci men Type: BLOOD SPECIMENOrdering Facility: [facility] Address: [address] [place] [address] Performed By: #### 5 7021-8 ####[facility] LABORATORYCLIA [id number] [place] [address] [place] Immature granulocytes/100 WBC (Bld) 0.4 % Normal [facility] Comment on above: Order Comment: Speci men Type: BLOOD SPECIMENOrdering Facility: [facility] Address: [address] [place] [address] Performed By: #### 5 7021-8 ####[facility] LABORATORYCLIA [id number] [address] OF [facility] Lymphocytes (Bld) [#/Vol] 2.51 10*3/uL Normal 1.00-4.00 [facility] Comment on above: Order Comment: Speci men Type: BLOOD SPECIMENOrdering Facility: [facility] Address: [address] [place] [address] Performed By: #### 5 7021-8 ####[facility] LABORATORYCLIA [id number] [address] Lymphocytes/100 WBC (Bld) 22.9 % Normal [facility] Comment on above: Order Comment: Speci men Type: BLOOD SPECIMENOrdering Facility: [facility] [facility] Address: [address] [place] [address] Performed By: #### 5 7021-8 ####[facility] LABORATORYCLIA [id number] [address] [facility] MCH (RBC) [Entitic mass] 29.4 pg Normal 26.0-34.0 [facility] Comment on above: Order Comment: Speci men Type: BLOOD SPECIMENOrdering Facility: [facility] Address: [address] [place] [address] Performed By: #### 5 7021-8 ####[facility] LABORATORYCLIA [id number] [address] [facility] MCHC (RBC) [Mass/Vol] 31.1 g/dL Normal 30.5-36.0 [facility] Comment on above: Order Comment: Speci men Type: BLOOD SPECIMENOrdering Facility: [facility] Address: [address] [place] [address] Performed By: #### 5 7021-8 ####[facility] LABORATORYCLIA [id number] [place] [address] [place] MCV (RBC) [Entitic vol] 94.4 fL Normal 80.0-100.[address] [facility] Comment on above: Order Comment: Speci men Type: BLOOD SPECIMENOrdering Facility: [facility] Address: [address] [place] [address] Performed By: #### 5 7021-8 ####[facility] LABORATORYCLIA [id number] [address] [place] Monocytes (Bld) [#/Vol] 1.67 10*3/uL High <0.87 [facility] Comment on above: Order Comment: Speci men Type: BLOOD SPECIMENOrdering Facility: [facility] Address: [address] [place] [address] Performed By: #### 5 7021-8 ####[facility] LABORATORYCLIA [id number] [address] Monocytes/100 WBC (Bld) 15.2 % Normal A [facility] Comment on above: Order Comment: Speci men Type: BLOOD SPECIMENOrdering Facility: [facility] Address: [address] [place] [address] Performed By: #### 5 7021-8 ####[facility] LABORATORYCLIA [id number] [address] [place] Neutrophils (Bld) [#/Vol] 6.41 10*3/uL Normal 1.45-7.50 [facility] Comment on above: Order Comment: Speci men Type: BLOOD SPECIMENOrdering Facility: [facility] Address: [address] [place] [address] Performed By: #### 5 7021-8 ####[facility] LABORATORYCLIA [id number] [address] [place] Neutrophils/100 WBC (Bld) 58.4 % Normal [facility] Comment on above: Order Comment: Speci men Type: BLOOD SPECIMENOrdering Facility: [facility] Address: [address] [place] [address] Performed By: #### 5 7021-8 ####[facility] LABORATORYCLIA [id number] [address] Nucleated RBC (Bld) [#/Vol] 10*3/uL Normal <0.01 [facility] Comment on above: Order Comment: Speci men Type: BLOOD SPECIMENOrdering Facility: [facility] Address: [address] [place] [address] Performed By: #### 5 7021-8 ####[facility] LABORATORYCLIA [id number] [address] Nucleated RBC/100 WBC (Bld) [Ratio] 0.0 /100 WBC Normal [facility] Comment on above: Order Comment: Speci men Type: BLOOD SPECIMENOrdering Facility: [facility] Address: [address] [place] [address] Performed By: #### 5 7021-8 ####[facility] LABORATORYCLIA [id number] [address] [place] Platelet mean volume (Bld) [Entitic vol] 9.9 fL Normal 9.0-12.7 [facility] Comment on above: Order Comment: Speci men Type: BLOOD SPECIMENOrdering Facility: [facility] Address: [address] [place] [address] Performed By: #### 5 7021-8 ####[facility] LABORATORYCLIA [id number] [address] [place] Platelets (Bld) [#/Vol] 264 10*3/uL Normal 150-400 [facility] Comment on above: Order Comment: Speci men Type: BLOOD SPECIMENOrdering Facility: [facility] Address: [address] [place] [address] Performed By: #### 5 7021-8 ####[facility] LABORATORYCLIA [id number] [address] [place] RBC (Bld) [#/Vol] 3.06 10*6/uL Low 3.90-5.20 [facility] Comment on above: Order Comment: Speci men Type: BLOOD SPECIMENOrdering Facility: [facility] Address: [address] [place], [place] [address] Performed By: #### 5 7021-8 ####[facility] LABORATORYCLIA [id number] [address] WBC (Bld) [#/Vol] 10.97 10*3/uL Normal 3.70-11.00 [facility] Comment on above: Order Comment: Speci men Type: BLOOD SPECIMENOrdering Facility: [facility] Address: [address] [place], [place] [address] Performed By: #### 5 7021-8 ####[facility] LABORATORYCLIA [id number] [address] THERAPY NTon 12-16-2021 THERAPY NT HNO ID: [id number] Author: Rae Garza, PT Service: Physical Therapy Author Type: Physical Therapist Type: Therapy (PT/OT/Speech/Resp) Filed: 12/16/2021 2:43 PM Note Text: Physical Therapy Evaluation SERVICE DATE: 12/16/2021 SERVICE TIME: 1325 to 1355 ROOM: [id number] Recommended Discharge Disposition: Subacute/SNF Recommended Discharge Disposition [...] per chart review patient is from [facility]. Patient reports using walker and does her [...] gait and mobility-other Interventions Provided: Evaluation;Gait Training (17872) $ Evaluation-High (28396) Billed Units: 1 unit Gait Training (64419) Treatment Minutes: 12 $ Gait Training (46282) Billed Units: 1 unit Educated on sit to stand not to pull on walker as to sit to find midline balance. Assisted to move the walker and take steps (more content not included)... Normal [facility] THERAPY NT HNO ID: [id number] Author: Jeanette Dale OTR/L Service: Occupational Therapy Author Type: Occupational Therapist Type: Therapy (PT/OT/Speech/Resp) Filed: 12/16/2021 2:33 PM Note Text: Occupational Therapy Evaluation SERVICE DATE: 12/16/2021 SERVICE TIME: 1310 to 1330 ROOM: [place] [address] Recommended Discharge Disposition: Subacute/SNF Recommended Discharge Disposition [...] per chart review patient is from [facility]. Patient reports using walker and does her [...] Toilet Trans (more content not included)... Normal [facility] Basic metabolic 2000 panelon 12-15-2021 Anion gap [Moles/Vol] 14 mmol/L Normal 9-18 [facility] Comment on above: Order Comment: Speci men Type: BLOOD SPECIMEN [facility] Address: [address] [place] [address] Performed By: #### T SCR #### [facility] CLIA [id number] 1 [place] [address] [place] Calcium [Mass/Vol] 8.1 mg/dL Low 8.5-10.2 [facility] Comment on above: Order Comment: Speci men Type: BLOOD SPECIMEN [facility] Address: [address] [place] [address] Performed By: #### T SCR #### [facility] CLIA [id number] 1 [place] [address] [place] Chloride [Moles/Vol] 100 mmol/L Normal 97-105 [facility] Comment on above: Order Comment: Speci men Type: BLOOD SPECIMEN [facility] Address: [address] [place] [address] Performed By: #### T SCR #### [facility] CLIA [id number] 1 [place] [address] [place] CO2 [Moles/Vol] 21 mmol/L Low 22-30 [facility] Comment on above: Order Comment: Speci men Type: BLOOD SPECIMEN [facility] Address: [address] [place] [place] [address] Performed By: #### T SCR #### [facility] CLIA [id number] [address] [place] Creatinine [Mass/Vol] 0.80 mg/dL Normal 0.58-0.96 [facility] Comment on above: Order Comment: Kinsey javier Type: BLOOD SPECIMEN [facility] Address: [address] [place] [address] Performed By: #### T SCR #### [facility] CLIA [id number] [address] [place] ESTIMATED GLOMERULAR FILTRATION RATE 81 mL/min/1.73m??? Normal >=60 [facility] Comment on above: Order Comment: Kinsey herrera Type: BLOOD SPECIMEN [facility] Address: [address] [place] [address] Result Comment: Jessa mated Glomerular Filtration Rate [...] GFR. Performed By: #### T SCR #### [facility] CLIA [id number] [address] Glucose [Mass/Vol] 122 mg/dL High 74-99 [facility] Comment on above: Order Comment: Kinsey javier Type: BLOOD SPECIMEN [facility] Address: [address] [place] [address] Result Comment: The [place] Diabetes Association (ADA) provides guidance for cutoff [...] Standards of Medical Care in Diabetes 2016, [place] Diabetes Association. Diabetes Care. 2016.39(Suppl 1). Performed By: #### T SCR #### [facility] CLIA [id number] [address] Potassium [Moles/Vol] 4.8 mmol/L Normal 3.7-5.1 [facility] Comment on above: Order Comment: Speci men Type: BLOOD SPECIMEN [facility] Address: [address] [place] [address] Performed By: #### T SCR #### [facility] CLIA [id number] [address] [facility] Sodium [Moles/Vol] 135 mmol/L Low 136-144 [facility] Comment on above: Order Comment: Speci men Type: BLOOD SPECIMEN [facility] Address: [address] [place] [address] Performed By: #### T SCR #### [facility] CLIA [id number] [address] [facility] Urea nitrogen [Mass/Vol] 12 mg/dL Normal 7-21 [facility] Comment on above: Order Comment: Speci men Type: BLOOD SPECIMEN [facility] Address: [address] [place] [address] Performed By: #### T SCR #### [facility] CLIA [id number] [address] CBC W Auto Differential pane l (Bld)on 12-15-2021 Basophils (Bld) [#/Vol] 0.00 10*3/uL Normal <0.11 [facility] Comment on above: Order Comment: Speci men Type: BLOOD SPECIMENOrdering Facility: [facility] Address: [address] [place] [address] Performed By: #### 5 7021-8 ####[facility] LABORATORYCLIA [id number] [address] [facility] Basophils/100 WBC (Bld) 0.0 % Normal A [facility] Comment on above: Order Comment: Speci men Type: BLOOD SPECIMENOrdering Facility: [facility] Address: [address] [place] [address] Performed By: #### 5 7021-8 ####[facility] LABORATORYCLIA [id number] [address] Differential cell count method Nom (Bld) Manual Normal [facility] Comment on above: Order Comment: Speci men Type: BLOOD SPECIMENOrdering Facility: [facility] Address: [address] [place] [address] Performed By: #### 5 7021-8 ####[facility] LABORATORYCLIA [id number] [address] [place] Eosinophils (Bld) [#/Vol] 0.13 10*3/uL Normal <0.46 [facility] Comment on above: Order Comment: Speci men Type: BLOOD SPECIMENOrdering Facility: [facility] Address: [address] [place] [address] Performed By: #### 5 7021-8 ####[facility] LABORATORYCLIA [id number] [address] Eosinophils/100 WBC (Bld) 1.0 % Normal [facility] Comment on above: Order Comment: Speci men Type: BLOOD SPECIMENOrdering Facility: [facility] Address: [address] [place] [address] Performed By: #### 5 7021-8 ####[facility] LABORATORYCLIA [id number] [address] [place] Erythrocyte distribution width (RBC) [Ratio] 13.5 % Normal 11.5-15.0 [facility] Comment on above: Order Comment: Speci men Type: BLOOD SPECIMENOrdering Facility: [facility] Address: [address] [place] [address] Performed By: #### 5 7021-8 ####[facility] LABORATORYCLIA [id number] [address] [place] Hematocrit (Bld) [Volume fraction] 32.9 % Low 36.0-46.0 [facility] Comment on above: Order Comment: Speci men Type: BLOOD SPECIMENOrdering Facility: [facility] Address: [address] [place] [address] Performed By: #### 5 7021-8 ####[facility] LABORATORYCLIA [id number] [address] [place] Hemoglobin (Bld) [Mass/Vol] 10.1 g/dL Low 11.5-15.5 [facility] Comment on above: Order Comment: Speci men Type: BLOOD SPECIMENOrdering Facility: [facility] Address: [address] [place] [address] Performed By: #### 5 7021-8 ####[facility] LABORATORYCLIA [id number] [address] [facility] Lymphocytes (Bld) [#/Vol] 3.01 10*3/uL Normal 1.00-4.00 [facility] Comment on above: Order Comment: Speci men Type: BLOOD SPECIMENOrdering Facility: [facility] Address: [address] [place] [address] Performed By: #### 5 7021-8 ####[facility] LABORATORYCLIA [id number] [address] [place] Lymphocytes/100 WBC (Bld) 9.0 % Normal [facility] Comment on above: Order Comment: Speci men Type: BLOOD SPECIMENOrdering Facility: [facility] Address: [address] [place] [address] Performed By: #### 5 7021-8 ####[facility] LABORATORYCLIA [id number] [address] [place] MCH (RBC) [Entitic mass] 29.4 pg Normal 26.0-34.0 [facility] Comment on above: Order Comment: Speci men Type: BLOOD SPECIMENOrdering Facility: [facility] Address: [address] [place] [address] Performed By: #### 5 7021-8 ####[facility] LABORATORYCLIA [id number] [address] MCHC (RBC) [Mass/Vol] 30.7 g/dL Normal 30.5-36.0 [facility] Comment on above: Order Comment: Speci men Type: BLOOD SPECIMENOrdering Facility: [facility] Address: [address] [place] [address] Performed By: #### 5 7021-8 ####[facility] LABORATORYCLIA [id number] [address] MCV (RBC) [Entitic vol] 95.6 fL Normal 80.0-100.0 [facility] Comment on above: Order Comment: Speci men Type: BLOOD SPECIMENOrdering Facility: [facility] Address: [address] [place] [address] Performed By: #### 5 7021-8 ####[facility] LABORATORYCLIA [id number] [address] Monocytes (Bld) [#/Vol] 1.05 10*3/uL High <0.87 [facility] Comment on above: Order Comment: Speci men Type: BLOOD SPECIMENOrdering Facility: [facility] Address: [address] [place] [address] Performed By: #### 5 7021-8 ####[facility] LABORATORYCLIA [id number] [address] Monocytes/100 WBC (Bld) 8.0 % Normal A [facility] Comment on above: Order Comment: Speci men Type: BLOOD SPECIMENOrdering Facility: [facility] Address: [address] [place] [address] Performed By: #### 5 7021-8 ####[facility] LABORATORYCLIA [id number] [place] [address] [place] Neutrophils (Bld) [#/Vol] 8.90 10*3/uL High 1.45-7.50 [facility] Comment on above: Order Comment: Speci men Type: BLOOD SPECIMENOrdering Facility: [facility] Address: [address] [place] [address] Performed By: #### 5 7021-8 ####[facility] LABORATORYCLIA [id number] [address] [place] Neutrophils/100 WBC (Bld) 68.0 % Normal [facility] Comment on above: Order Comment: Speci men Type: BLOOD SPECIMENOrdering Facility: [facility] Address: [address] [place] [address] Performed By: #### 5 7021-8 ####[facility] LABORATORYCLIA [id number] [address] [place] Nucleated RBC (Bld) [#/Vol] 10*3/uL Normal <0.01 [facility] Comment on above: Order Comment: Speci men Type: BLOOD SPECIMENOrdering Facility: [facility] Address: [address] [place] [address] Performed By: #### 5 7021-8 ####[facility] LABORATORYCLIA [id number] [address] [place] Nucleated RBC/100 WBC (Bld) [Ratio] 0.0 /100 WBC Normal [facility] Comment on above: Order Comment: Speci men Type: BLOOD SPECIMENOrdering Facility: [facility] Address: [address] [place] [address] Performed By: #### 5 7021-8 ####[facility] LABORATORYCLIA [id number] [address] [place] Platelet mean volume (Bld) [Entitic vol] 9.9 fL Normal 9.0-12.7 [facility] Comment on above: Order Comment: Speci men Type: BLOOD SPECIMENOrdering Facility: [facility] Address: [address] [place] [address] Performed By: #### 5 7021-8 ####[facility] LABORATORYCLIA [id number] [address] OF [facility] Platelets (Bld) [#/Vol] 308 10*3/uL Normal 150-400 [facility] Comment on above: Order Comment: Speci men Type: BLOOD SPECIMENOrdering Facility: [facility] Address: [address] [place] [address] Performed By: #### 5 7021-8 ####[facility] LABORATORYCLIA [id number] [address] [place] Platelets Estimate (Bld) [#/Vol] Adequate Normal [facility] Comment on above: Order Comment: Speci men Type: BLOOD SPECIMENOrdering Facility: [facility] Address: [address] [place] [address] Performed By: #### 5 7021-8 ####[facility] LABORATORYCLIA [id number] [address] STATES OF [facility] RBC (Bld) [#/Vol] 3.44 10*6/uL Low 3.90-5.20 [facility] Comment on above: Order Comment: Speci men Type: BLOOD SPECIMENOrdering Facility: [facility] Address: [address] [place] [address] Performed By: #### 5 7021-8 ####[facility] LABORATORYCLIA [id number] [address] RED CELL MORPH Normal Normal [facility] Comment on above: Order Comment: Speci men Type: BLOOD SPECIMENOrdering Facility: [facility] Address: [address] [place] [address] Performed By: #### 5 7021-8 ####[facility] LAB[facility]ATORYCLIA [id number] [address] Variant lymphocytes/100 WBC (Bld) 14.0 % Normal [facility] Comment on above: Order Comment: Speci men Type: BLOOD SPECIMENOrdering Facility: [facility] Address: [address] [place], [place] [address], [place] [address] Performed By: #### 5 7021-8 ####[facility] LABORATORYCLIA [id number] [place] [id number] [place] WBC (Bld) [#/Vol] 13.09 10*3/uL High 3.70-11.00 [facility] Comment on above: Order Comment: Speci men Type: BLOOD SPECIMENOrdering Facility: [facility] Address: [address] [address] Performed By: #### 5 7021-8 ####[facility] LABORATORYCLIA [id number] [place] [id number] [facility] NURSING PROGon 12-15-2021 NURSING PROG HNO ID: [id number] Author: Taniya Jenkins RN Service: Nursing Author Type: Registered Nurse Type: Nursing Progress Note Filed: 12/15/2021 2:01 PM Note Text: Summary: s/p fall 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 [facility] NURSING PROG HNO ID: [id number] Author: Taniya Jenkins RN Service: Nursing Author Type: Registered Nurse Type: Nursing Progress Note Filed: 12/15/2021 10:14 AM Note Text: Post Fall Assessment Claribel Stoll [id number] Witnessed: No How did fall occur: Getting [...] completed by:Taniya Jenkins patient has no complaints.. [facility] ALLIED HEALTHon 12-14-2021 ALLIED HEALTH HNO ID: [id number] Author: RT Isela(Emily) Service: Radiology Author Type: [...] Kaufman RT(R) December 14, 2021 4:44 PM [facility] HNO ID: [id number] Author: Gagan Rivas RT(R) Service: Radiology Author Type: Technologist Type: [facility] Filed: 12/14/2021 2:09 PM Note Text: Radiology [...] RT Herve(R) December 14, 2021 2:09 PM [facility] HNO ID: [id number] Author: Mc Khan RT(R) Service: Radiology Author Type: Technologist Type: [facility] Filed: 12/13/2021 10:47 PM Note Text: Radiology [...] Khan, RT(R) December 13, 2021 10:47 PM Normal [facility] ANES POSTPROC EVALon 022 ANES POSTPROC EVAL HNO ID: [id number] Author: Ted Mckeon DO Service: Anesthesiology Author Type: Physician Type: Anesthesia Postprocedure Evaluation Filed: 12/14/2021 6:55 PM Note Text: POST ANESTHESIA EVALUATION NOTE : 1955 Procedure Summary Date: 12/14/21 Room / Location: [place] OR 08 / [place] Anesthesia Start: 1222 Anesthesia Stop: 1617 [...] December 14, 2021 TIME: 6:54 PM CSN: [id number] Normal [facility] ANES PRE-OPon 12-14-2021 ANES PRE-OP HNO ID: [id number] Author: Ted Mckeon DO Service: Anesthesiology Author Type: Physician Type: Anesthesia Preprocedure Evaluation Filed: 12/14/2021 11:54 AM Note Text: ANESTHESIOLOGY DAY OF SURGERY NOTE : 1955 Procedure Information Date/Time: 12/14/211124 Procedure: HEMIARTHROPLASTY REPLACE JOINT PARTIAL HIP (Left: Hip) Location: [place] OR Surgeons: Yasmany Roman MD Estimated body [...] and consent discussed: yes. Patient / Responsible Constitution Party agrees to proceed: yes Patient / [...] December 14, 2021 TIME: 11:52 AM CSN: [id number] [facility] BRIEF OP NOTon 12-14-2021 BRIEF OP NOT HNO ID: [id number] Author: Zach Heart MD Service: Orthopaedic Pediatrics Author Type: Resident Type: Brief Op Note Filed: 12/14/2021 4:03 PM Note Text: ORTHO BRIEF OPERATIVE REPORT PATIENT NAME: Claribel Stoll LOG ID: [id number] Surgery/Procedure Date: 12/14/2021 Incision/Procedure Start Time: 1:03 PM Incision Close/Procedure End Time: 3:52 PM Surgeon(s)/Procedurali st(s) and Automation Software Engineer(s): Surgeon(s) and Role: * Yasmany Roman MD - Primary * Zach Heart MD - Resident - Assisting * Fatmiah Simon MD - Resident - Assisting No [...] 14, 2021 4:02 PM Pager: [phone] Normal [facility] Basic metabolic 2000 panelon 12-14-2021 Anion gap [Moles/Vol] 11 mmol/L Normal 9-18 [facility] Comment on above: Order Comment: Speci men Type: BLOOD SPECIMENOrdering Facility: [facility] Address: [address] [place] [address] Performed By: #### 2 4321-2, , 55018-1 ####[facility] LABORATORYCLIA [id number] [place] [address] [place] Calcium [Mass/Vol] 8.6 mg/dL Normal 8.5-10.2 [facility] Comment on above: Order Comment: Speci men Type: BLOOD SPECIMENOrdering Facility: [facility] Address: [address] [place] [address] Performed By: #### 2 4321-2, , 59294-4 ####[facility] LABORATORYCLIA [id number] [place] [address] [place] Chloride [Moles/Vol] 102 mmol/L Normal 97-105 [facility] Comment on above: Order Comment: Speci men Type: BLOOD SPECIMENOrdering Facility: [facility] Address: [address] [place] [address] Performed By: #### 2 4321-2, , 45828-6 ####[facility]ORATORYCLIA [id number] [place] [address] [place] CO2 [Moles/Vol] 24 mmol/L Normal 22-30 [facility] Comment on above: Order Comment: Speci men Type: BLOOD SPECIMENOrdering Facility: [facility] Address: [address] [place] [address] Performed By: #### 2 4321-2, 62593-3, 24280-9 ####[facility]ATORYCLIA [id number] [address] STATES OF [facility] Creatinine [Mass/Vol] 0.66 mg/dL Normal 0.58-0.96 [facility] Comment on above: Order Comment: Speci men Type: BLOOD SPECIMENOrdering Facility: [facility] Address: [address] [place] [address] Performed By: #### 2 4321-2, , 14938-6 ####[facility]PITALIA [id number] [address] STATES OF [facility] ESTIMATED GLOMERULAR FILTRATION RATE 96 mL/min/1.73m??? Normal >=60 [facility] Comment on above: Order Comment: Speci men Type: BLOOD SPECIMENOrdering Facility: [facility] Address: [address] [place] [address] Result Comment: Jessa mated Glomerular Filtration Rate [...] actual GFR. Performed By: #### 2 4321-2, 07239-4, 92066-3 ####[facility] LABORATORYCLIA [id number] [place] [address] [place] Glucose [Mass/Vol] 105 mg/dL High 74-99 [facility] Comment on above: Order Comment: Speci men Type: BLOOD SPECIMENOrdering Facility: [facility] Address: [address] [place] [address] Result Comment: The Citizen [place] Diabetes Association (ADA) provides guidance for cutoff [...] Standards of Medical Care in Diabetes 2016, [place] Diabetes Association. Diabetes Care. 2016.39(Suppl 1). Performed By: #### 2 4321-2, 41394-2, 75069-7 ####[facility] LABORATORYCLIA [id number] [place] [address] [place] Potassium [Moles/Vol] Normal [facility] Comment on above: Order Comment: Specrodo herrera Type: BLOOD SPECIMENOrdering Facility: [facility] Address: [address] [place] [address] Result Comment: Unab le to assay due to interference from hemolysis. Suggest reorder as clinically indicated. Performed By: #### 2 4321-2, , 66724-6 ####[facility]ORATORYCLIA [id number] [place] [address] [place] Sodium [Moles/Vol] 137 mmol/L Normal 136-144 [facility] Comment on above: Order Comment: Kinsey herrera Type: BLOOD SPECIMENOrdering Facility: [facility] Address: [address] [address] Performed By: #### 2 4321-2, 52410-3, 44349-2 ####[facility] LABORATORYCLIA [id number] [place] [address] [place] Urea nitrogen [Mass/Vol] 11 mg/dL Normal 7-21 [facility] Comment on above: Order Comment: Kinsey herrera Type: BLOOD SPECIMENOrdering Facility: [facility] Address: [address] [address] Performed By: #### 2 4321-2, 47333-4, 06214-4 ####[facility]ORYCLIA [id number] [address] STATES OF [facility] CBC W Auto Differential pane l (Bld)on 12-14-2021 Basophils (Bld) [#/Vol] 0.05 10*3/uL Normal <0.11 [facility] Comment on above: Order Comment: Speci men Type: BLOOD SPECIMENOrdering Facility: [facility] Address: [address] [place] [address] Performed By: #### 5 7021-8 ####[facility] LABORATORYCLIA [id number] [address] Basophils/100 WBC (Bld) 0.4 % Normal A [facility] Comment on above: Order Comment: Speci men Type: BLOOD SPECIMENOrdering Facility: [facility] Address: [address] [place] [address] Performed By: #### 5 7021-8 ####[facility]ORATORYCLIA [id number] [address] Differential cell count method Nom (Bld) Auto Normal [facility] Comment on above: Order Comment: Speci men Type: BLOOD SPECIMENOrdering Facility: [facility] Address: [address] [place] [address] Performed By: #### 5 7021-8 ####[facility]ORATORYCLIA [id number] [address] [place] Eosinophils (Bld) [#/Vol] 0.59 10*3/uL High <0.46 [facility] Comment on above: Order Comment: Speci men Type: BLOOD SPECIMENOrdering Facility: [facility] Address: [address] [place] [address] Performed By: #### 5 7021-8 ####[facility]ATORYCLIA [id number] [address] Eosinophils/100 WBC (Bld) 5.1 % Normal [facility] Comment on above: Order Comment: Speci men Type: BLOOD SPECIMENOrdering Facility: [facility] Address: [address] [address] Performed By: #### 5 7021-8 ####[facility]ORATORYCLIA [id number] [address] [place] Erythrocyte distribution width (RBC) [Ratio] 14.3 % Normal 11.5-15.0 [facility] Comment on above: Order Comment: Speci men Type: BLOOD SPECIMENOrdering Facility: [facility] Address: [address] [place] [address] Performed By: #### 5 7021-8 ####[facility]ORATORYCLIA [id number] [address] [place] Hematocrit (Bld) [Volume fraction] 37.4 % Normal 36.0-46.0 [facility] Comment on above: Order Comment: Speci men Type: BLOOD SPECIMENOrdering Facility: [facility] Address: [address] [place] [address] Performed By: #### 5 7021-8 ####[facility]ORATORYCLIA [id number] [address] [place] Hemoglobin (Bld) [Mass/Vol] 12.1 g/dL Normal 11.5-15.5 [facility] Comment on above: Order Comment: Speci men Type: BLOOD SPECIMENOrdering Facility: [facility] Address: [address] [place] [address] Performed By: #### 5 7021-8 ####[facility]ORATORYCLIA [id number] [address] [place] Immature granulocytes (Bld) [#/Vol] 0.03 10*3/uL Normal <0.10 [facility] Comment on above: Order Comment: Speci men Type: BLOOD SPECIMENOrdering Facility: [facility] Address: [address] [place] [address] Performed By: #### 5 7021-8 ####[facility]ORATORYCLIA [id number] [address] OF [facility] Immature granulocytes/100 WBC (Bld) 0.3 % Normal [facility] Comment on above: Order Comment: Speci men Type: BLOOD SPECIMENOrdering Facility: [facility] Address: [address] [place] [address] Performed By: #### 5 7021-8 ####[facility]ORATORYCLIA [id number] [place] [address] [place] Lymphocytes (Bld) [#/Vol] 2.87 10*3/uL Normal 1.00-4.00 [facility] Comment on above: Order Comment: Speci men Type: BLOOD SPECIMENOrdering Facility: [facility] Address: [address] [place] [address] Performed By: #### 5 7021-8 ####[facility]ORATORYCLIA [id number] [address] Lymphocytes/100 WBC (Bld) 25.0 % Normal [facility] Comment on above: Order Comment: Speci men Type: BLOOD SPECIMENOrdering Facility: [facility] Address: [address] [place] [address] Performed By: #### 5 7021-8 ####[facility] LABORATORYCLIA [id number] [address] [place] MCH (RBC) [Entitic mass] 29.9 pg Normal 26.0-34.0 [facility] Comment on above: Order Comment: Speci men Type: BLOOD SPECIMENOrdering Facility: [facility] Address: [address] [place] [address] Performed By: #### 5 7021-8 ####[facility]ORATORYCLIA [id number] [address] [place] MCHC (RBC) [Mass/Vol] 32.4 g/dL Normal 30.5-36.0 [facility] Comment on above: Order Comment: Speci men Type: BLOOD SPECIMENOrdering Facility: [facility] Address: [address] [address] Performed By: #### 5 7021-8 ####[facility]ORATORYCLIA [id number] [address] [place] MCV (RBC) [Entitic vol] 92.3 fL Normal 80.0-100.[address] [facility] Comment on above: Order Comment: Speci men Type: BLOOD SPECIMENOrdering Facility: [facility] Address: [address] [place] [address] Performed By: #### 5 7021-8 ####[facility]ORATORYCLIA [id number] [address] [place] Monocytes (Bld) [#/Vol] 1.03 10*3/uL High <0.87 [facility] Comment on above: Order Comment: Speci men Type: BLOOD SPECIMENOrdering Facility: [facility] Address: [address] [place] [address] Performed By: #### 5 7021-8 ####[facility]ORATORYCLIA [id number] [address] Monocytes/100 WBC (Bld) 9.0 % Normal A [facility] Comment on above: Order Comment: Speci men Type: BLOOD SPECIMENOrdering Facility: [facility] Address: [address] [place] [address] Performed By: #### 5 7021-8 ####[facility]ORATORYCLIA [id number] [address] [place] Neutrophils (Bld) [#/Vol] 6.90 10*3/uL Normal 1.45-7.50 [facility] Comment on above: Order Comment: Speci men Type: BLOOD SPECIMENOrdering Facility: [facility] Address: [address] [place] [address] Performed By: #### 5 7021-8 ####[facility]ORATORYCLIA [id number] [address] [place] Neutrophils/100 WBC (Bld) 60.2 % Normal [facility] Comment on above: Order Comment: Speci men Type: BLOOD SPECIMENOrdering Facility: [facility] Address: [address] Performed By: #### 5 7021-8 ####[facility]ORATORYCLIA [id number] [address] Nucleated RBC (Bld) [#/Vol] 10*3/uL Normal <0.01 [facility] Comment on above: Order Comment: Speci men Type: BLOOD SPECIMENOrdering Facility: [facility] Address: [address] [place], [place] [address] Performed By: #### 5 7021-8 ####[facility] LABORATORYCLIA [id number] [address] [place] Nucleated RBC/100 WBC (Bld) [Ratio] 0.0 /100 WBC Normal [facility] Comment on above: Order Comment: Speci men Type: BLOOD SPECIMENOrdering Facility: [facility] Address: [address] [place] [address] Performed By: #### 5 7021-8 ####[facility]ORATORYCLIA [id number] [address] [place] Platelet mean volume (Bld) [Entitic vol] 10.8 fL Normal 9.0-12.7 [facility] Comment on above: Order Comment: Speci men Type: BLOOD SPECIMENOrdering Facility: [facility] Address: [address] [place], [place] [address] Performed By: #### 5 7021-8 ####[facility]ORATORYCLIA [id number] [address] [place] Platelets (Bld) [#/Vol] 324 10*3/uL Normal 150-400 [facility] Comment on above: Order Comment: Speci men Type: BLOOD SPECIMENOrdering Facility: [facility] Address: [address] [place] [address] Performed By: #### 5 7021-8 ####[facility] LABORATORYCLIA [id number] [place] [address] [place] RBC (Bld) [#/Vol] 4.05 10*6/uL Normal 3.90-5.20 [facility] Comment on above: Order Comment: Speci men Type: BLOOD SPECIMENOrdering Facility: [facility] Address: [address] [place], [place] [address] Performed By: #### 5 7021-8 ####[facility] LABORATORYCLIA [id number] [place] [id number] [facility] WBC (Bld) [#/Vol] 11.47 10*3/uL High 3.70-11.00 [facility] Comment on above: Order Comment: Speci men Type: BLOOD SPECIMENOrdering Facility: [facility] Address: [address] [place] [address] Performed By: #### 5 7021-8 ####[facility] LABORATORYCLIA [id number] [place] [id number] [facility] CONSULTon 12-14-2021 CONSULT HNO ID: [id number] Author: Adam Mei MD Service: General Internal Medicine Author Type: Physician Type: Consults Filed: 12/14/2021 6:06 AM Note Text: DEPARTMENT OF HOSPITAL MEDICINE Consult SERVICE DATE: 12/14/2021 SERVICE TIME: 1:02 AM Primary Care Physician: No primary care provider on file. NIGHT AND WEEKEND COVERAGE: From 7am - 7pm, please call Sound After 7pm, please call cross cover pager #[phone] Subjective CHIEF COMPLAINT: Left hip pain HPI: [...] Claribel EVANS (more content not included)... Normal [facility] ECG COMPLETEon 12-14-2021 ECG COMPLETE Ventricular Rate : 8 4 BPM Atrial Rate : 84 BPM P-R Interval : 130 ms QRS Duration : 84 ms Q-T Interval : 394 ms QTC Calculation(Bazett) : 465 ms Calculated P Golden : 82 degrees Calculated R Golden : 81 degrees Calculated T Golden : 74 degrees NORMAL SINUS RHYTHM NORMAL ECG WHEN COMPARED WITH ECG OF 04-SEP-2015 18:42, NO SIGNIFICANT CHANGE WAS FOUND Confirmed by MD GIBBONS ANUBHAV ([id number]) on 12/14/2021 2:45:00 PM NAME : CLARIBEL STOLL PID : [id number] : 1955 Gender : Female Race : ORD : [id number] Procedure Date : Dec 14 2021 02:14:12 Edit Date : Dec 14 2021 14:45:01 Diagnosis: NORMAL SINUS RHYTHM NORMAL ECG WHEN COMPARED WITH ECG OF 04-SEP-2015 18:42, NO SIGNIFICANT CHANGE WAS FOUND Confirmed by MD GIBBONS ANUBHAV ([id number]) on 12/14/2021 2:45:00 PM Test Reason : Pre-OP Location : 152 : [address] [place] [address] Overread By : MD GIBBONS ANUBHAV Edited By : MD GIBBONS ANUBHAV Referred By : , Acquired by : JUAQUIN KAMINSKI [facility] ED NOTEon 12-14-2021 ED NOTE HNO ID: [id number] Author: Radha Vines RN Service: Emergency Medicine Author Type: Registered Nurse Type: ED Notes Filed: 12/13/2021 11:24 PM Note Text: Transport in to take pt up and pt PIV was out on bed. Attempted to call 52B to update on unplanned removal. No answer on the floor, pt sent up with transport to . [facility] ED NOTE HNO ID: [id number] Author: Radha Vines RN Service: Emergency Medicine Author Type: Registered Nurse Type: ED Notes Filed: 12/13/2021 10:40 PM Note Text: MD lama aware of inability to re access a PIV. [facility] ED NOTE HNO ID: [id number] Author: Radha Vines RN Service: Emergency Medicine Author Type: Registered Nurse Type: ED Notes Filed: 12/13/2021 10:32 PM Note Text: Unplanned removal of IV. Unable to obtain a second access. Admit paged. [facility] ED NOTE HNO ID: [id number] Author: Radha Vines RN Service: Emergency Medicine Author Type: Registered Nurse Type: ED Notes Filed: 12/13/2021 10:13 PM Note Text: Pt given sandwich. Xray called. Normal [facility] Magnesium SerPl-mCncon 12-14 Magnesium [Mass/Vol] 2.1 mg/dL Normal 1.7-2.3 [facility] Comment on above: Order Comment: Speci men Type: BLOOD SPECIMENOrdering Facility: [facility] Address: [address] [place] [address] Performed By: #### 2 4321-2, 97609-3, 56782-4 ####[facility] LABORATORYCLIA [id number] [address] OF [facility] NT-proBNP [facility] Natriuretic peptide.B prohormone N-Terminal [Mass/Vol] 186 pg/mL High <125 [facility] Comment on above: Order Comment: Speci men Type: BLOOD SPECIMENOrdering Facility: [facility] Address: [address] [place] [address] Performed By: #### 2 4321-2, 93399-6, 58170-6 ####[facility] LABORATORYCLIA [id number] [address] OF [facility] NURSING PROGon 12-14-2021 NURSING PROG HNO ID: [id number] Author: Katelin Saldaña RN Service: Nursing Author Type: Registered Nurse Type: Nursing Progress Note Filed: 12/14/2021 9:53 AM Note Text: Attempt to call Brother Garry to make aware of patient surgery time, phone busy. Attempt to call x2. [facility] OPERATIVE NOon 12-14-2021 OPERATIVE NO HNO ID: [id number] Author: Yasmany Roman MD Service: Orthopaedic Surgery Author Type: Physician Type: Operative Report Filed: 12/15/2021 4:07 PM Note Text: [facility] - Operative Report CLARIBEL STOLL : 1955 AGE: 66. SEX: F PATIENT TYPE: I [place] [facility] LOCATION: [facility] ATTENDING PHYSICIAN: YASMANY ROMAN CSN NUMBER: [id number] DATE OF SURGERY/PROCEDURE: 12/14/2021 INCISION/PROCEDURE START TIME: 1:03 PM INCISION CLOSE/PROCEDURE END TIME: 3:52 PM PREOPERATIVE DIAGNOSIS: Subcapital fracture, left hip. POSTOPERATIVE DIAGNOSIS: Subcapital fracture, left hip. SURGEON: Yasmany Roman MD ADVERTISING EDITOR: Operating room personnel. SURGERY/PROCEDURE: Hemiarthroplasty, left hip. [...] the right lateral decubitus position on the [facility] backpa. She was prepped and draped in sterile [...] again reduced. The capsule was closed with qgrnhr-uf-vfxby sutures of #1 Nurolon. The piriformis was reattached to the greater trochanter with 1 Nurolon suture. The retractor was removed. The fascia was closed with mlmudn-fv-bnorw sutures of #1 Nurolon. The subcutaneous tissue [...] the procedure quite well. Yasmany Roman MD PGW:[id number] /[id number] Normal [facility] PT panel Coag (PPP)on 2021 INR Coag (PPP) [Relative time] 1.0 {INR} Normal <1.4 [facility] Comment on above: Order Comment: Speci men Type: BLOOD SPECIMENOrdering Facility: [facility] Address: [address] [place] [address] Result Comment: Suzan min K Antagonist (VKA) Therapeutic Range: INR 2 to 3 (Target INR of 2.5) Note: For patients treated with VKA drugs, such as warfarin, the [place] College of Chest Physicians 2012 Guideline recommends [...] Chest 2012, 141:7S-47S Harpreet RA, et al. [facility] 2017, 70: 252-289 Performed By: #### 1 4979-9, 25424-6 ####[facility] LABORATORYCLIA [id number] [address] [place] PT Coag (PPP) [Time] 8.9 s Normal <13.1 [facility] Comment on above: Order Comment: Speci men Type: BLOOD SPECIMENOrdering Facility: [facility] Address: [address] [place] [address] Performed By: #### 1 4979-9, 34614-4 ####[facility]ORATORYCLIA [id number] [address] SURGICAL PATHOLOGYon CASE REPORT Normal [facility] Comment on above: Order Comment: Speci men Type: SPECIMEN FROM BONE [facility] Address: [address] [place] [address] Result Comment: Surg ical Pathology Report Case: [id number] Authorizing Provider: Yasmany Roman MD Collected: 12/14/2021 02:48 PM Ordering Location: [facility] Received: 12/16/2021 07:27 AM Pathologist: Aleah Franco MD Specimen: FEMORAL HEAD LEFT Performed By: #### S #### [facility] CLIA [id number] [address] [place] [address] CLINICAL HISTORY Normal [facility] Comment on above: Order Comment: Speci men Type: SPECIMEN FROM BONE [facility] Address: [address] [place] [address] Result Comment: Pre- op diagnosis: Closed displaced fracture of left femoral neck (HCC) [S72.002A] Performed By: #### S #### [facility] CLIA [id number] [address] FINAL DIAGNOSIS Normal [facility] Comment on above: Order Comment: Speci men Type: SPECIMEN FROM BONE [facility] Address: [address] [place] [address] Result Comment: Femo ral head, left, hip arthroplasty: - Fragmentation of the bony trabeculae with hemorrhage into the medullary cavity, consistent with recent fracture. - Soft tissue with no pathologic diagnosis. - No malignancy is seen. Performed By: #### S #### [facility] CLIA [id number] [address] [place] [address] FINAL PERFORMING LAB Normal [facility] Comment on above: Order Comment: Speci men Type: SPECIMEN FROM BONE [facility] Address: [address] [place] [address] Result Comment: Diag nostic interpretation performed at [facility], [address] [place] [address] CLIA# [id number] Reinforcement Maker: Yao Rodriguez M.D. Performed By: #### S #### [facility] CLIA [id number] [address] [place] [address] GROSS DESCRIPTION Normal [facility] Comment on above: Order Comment: Speci men Type: SPECIMEN FROM BONE [facility] Address: [address] [place] [address] Result Comment: A. F EMORAL HEAD LEFT Received in formalin labeled as "femoral head left" is a femoral head measuring approximately 4.4 x 4.4 x 4.4 cm. The articular surface is roughened, however no distinctive area of eburnation is identified. No osteophytes are present. The surgical neck is ragged and hemorrhagic. [place]-wilkerson soft tissue is mildly adherent to the bone. Sectioning reveals wilkerson-red, slightly hemorrhagic, hard trabecular cut surfaces. No areas of necrosis or subchondral cystic structures are identified.A lso present in the container are multiple wilkerson-pink, ragged, hemorrhagic bone fragments aggregating to 3.5 x 3.5 x 2.3 cm. Supervisor Parking Lot sections are submitted as follows: A1 soft tissue; A2-A3 bone after decalcification. Gross examination performed at [facility], [address] [place] [address] CLIA# [id number] RSA December 16, 2021 9:41 AM Performed By: #### S #### [facility] CLIA [id number] [address] [place] Urinalysis complete panel (U )on 12-14-2021 Bacteria LM.HPF (Urine sed) [#/Area] Few Abnormal None Seen [facility] Comment on above: Order Comment: Speci men Type: URINE SPECIMENOrdering Facility: [facility] Address: [address] [place] [address] Performed By: #### 2 4356-8 ####[facility] LABORATORYCLIA [id number] [address] [place] Bilirubin Ql (U) Negative Normal Negative [facility] Comment on above: Order Comment: Speci men Type: URINE SPECIMENOrdering Facility: [facility] Address: [address] [place] [address] Performed By: #### 2 4356-8 ####[facility] LABORATORYCLIA [id number] [address] [place] Clarity (Unsp spec) Turbid Abnormal Clear [facility] Comment on above: Order Comment: Speci men Type: URINE SPECIMENOrdering Facility: [facility] Address: [address] [place] [address] Performed By: #### 2 4356-8 ####[facility] LABORATORYCLIA [id number] [address] [place] Color (U) Yellow Normal yellow [facility] Comment on above: Order Comment: Speci men Type: URINE SPECIMENOrdering Facility: [facility] Address: [address] [address] Performed By: #### 2 4356-8 ####[facility] LABORATORYCLIA [id number] [address] [place] Epithelial cells LM.HPF (Urine sed) [#/Area] Few Normal [facility] Comment on above: Order Comment: Speci men Type: URINE SPECIMENOrdering Facility: [facility] Address: [address] [place] [address] Performed By: #### 2 4356-8 ####[facility] LABORATORYCLIA [id number] [address] [place] Glucose Test strip (U) [Mass/Vol] Negative Normal Negative [facility] Comment on above: Order Comment: Speci men Type: URINE SPECIMENOrdering Facility: [facility] Address: [address] [place] [address] Performed By: #### 2 4356-8 ####[facility] LABORATORYCLIA [id number] [address] [place] Hemoglobin Ql (U) Negative Normal Negative [facility] Comment on above: Order Comment: Speci men Type: URINE SPECIMENOrdering Facility: [facility] Address: [address] [place] [address] Performed By: #### 2 4356-8 ####[facility] LABORATORYCLIA [id number] [address] [place] Ketones Ql (U) Negative Normal Negative [facility] Comment on above: Order Comment: Speci men Type: URINE SPECIMENOrdering Facility: [facility] Address: [address] [place] [place] [address] Performed By: #### 2 4356-8 ####[facility] LABORATORYCLIA [id number] [address] [place] Leukocyte esterase Test strip Ql (U) Negative Normal Negative [facility] Comment on above: Order Comment: Speci men Type: URINE SPECIMENOrdering Facility: [facility] Address: [address] [place] [address] Performed By: #### 2 4356-8 ####[facility] LABORATORYCLIA [id number] [address] Nitrite Ql (U) 2+ Abnormal Negative [facility] Comment on above: Order Comment: Speci men Type: URINE SPECIMENOrdering Facility: [facility] Address: [address] [place] [address] Performed By: #### 2 4356-8 ####[facility] LABORATORYCLIA [id number] [address] [place] pH (U) 8.0 [pH] Normal 5.0-8.0 [facility] Comment on above: Order Comment: Speci men Type: URINE SPECIMENOrdering Facility: [facility] Address: [address] [place] [address] Performed By: #### 2 4356-8 ####[facility] [id number] [address] Protein (U) [Mass/Vol] Trace Abnormal Negative [facility] Comment on above: Order Comment: Speci men Type: URINE SPECIMENOrdering Facility: [facility] Address: [address] [place] [address] Performed By: #### 2 4356-8 ####[facility] LABORATORYCLIA [id number] [address] RBC LM.HPF (Urine sed) [#/Area] 0-3 /HPF Normal 0-3 /HPF [facility] Comment on above: Order Comment: Speci men Type: URINE SPECIMENOrdering Facility: [facility] Address: [address] [place] [address] Performed By: #### 2 4356-8 ####[facility] LABORATORYCLIA [id number] [address] Specific gravity (U) [Rel density] 1.021 Normal 1.005-1.030 [facility] Comment on above: Order Comment: Speci men Type: URINE SPECIMENOrdering Facility: [facility] Address: [address] [place] [address] Performed By: #### 2 4356-8 ####[facility] LABORATORYCLIA [id number] [address] Triple phosphate crystals LM.HPF (Urine sed) [#/Area] Few Abnormal None Seen [facility] Comment on above: Order Comment: Speci men Type: URINE SPECIMENOrdering Facility: [facility] Address: [address] [place] [address] Performed By: #### 2 4356-8 ####[facility] LABORATORYCLIA [id number] [address] Urobilinogen Ql (U) 1+ Abnormal Negative [facility] Comment on above: Order Comment: Speci men Type: URINE SPECIMENOrdering Facility: [facility] Address: [address] [place] [address] Performed By: #### 2 4356-8 ####[facility] LABORATORYCLIA [id number] [address] WBC LM.HPF (Urine sed) [#/Area] 0-5 /HPF Normal 0-5 /HPF [facility] Comment on above: Order Comment: Speci men Type: URINE SPECIMENOrdering Facility: [facility] Address: [address] [place] [address] Performed By: #### 2 4356-8 ####[facility] LABORATORYCLIA [id number] [address] [place] XR FEMUR 2V AP/LAT [...] normal. IMPRESSION: No additional femur fracture identified. Granite Setter: AYUSH Transcribe Date/Time: Dec 13 2021 11:29P Dictated by : JOSEF SPAULDING MD This examination was interpreted and the report reviewed and electronically signed by: JOSEF SPAULDING MD on Dec 13 2021 11:30PM EST [id number] Normal [facility] XR HIP 2V AP/ LAT LTon 12-14 [...] prior to placement of left hip prosthesis. Granite Setter: [facility] Transcribe Date/Time: Dec 19 2021 2:58P Dictated by : AMAN MACDONALD MD This examination was interpreted and the report reviewed and electronically signed by: AMAN MACDONALD MD on Dec 19 2021 3:00PM EST [id number] Normal [facility] XR PELVIS 1V APon 12-14-2021 XR PELVIS [...] left total hip arthroplasty without discrete complication. Granite Setter: PSCB Transcribe Date/Time: Dec 14 2021 5:11P Dictated by : RANDEE PHILLIPS MD This examination was interpreted and the report reviewed and electronically signed by: RANDEE PHILLIPS MD on Dec 14 2021 5:11PM EST [id number] Normal [facility] aPTT PPPon 12-14-2021 aPTT Coag (PPP) [Time] 21.4 s Low 28.5-34.0 [facility] Comment on above: Order Comment: Speci men Type: BLOOD SPECIMENOrdering Facility: [facility] Address: [address] [place] [address] Performed By: #### 1 4979-9, 45945-9 ####[facility] LABORATORYCLIA [id number] [address] OF [facility] ALLIED HEALTHon 12-13-2021 ALLIED HEALTH HNO ID: [id number] Author: RT Kylee(Emily) Service: Radiology Author Type: [...] Campbell(R) December 13, 2021 8:04 PM Normal [facility] ALLIED HEALTH HNO ID: [id number] Author: RT Penelope(R) Service: Radiology Author Type: Dry House Tender Type: Allied Health Filed: 12/13/2021 7:30 PM [...] Penelope(R) December 13, 2021 7:29 PM Normal [facility] Basic metabolic 2000 panelon 12-13-2021 Anion gap [Moles/Vol] 10 mmol/L Normal 9-18 [facility] Comment on above: Order Comment: Kinsey herrera Type: BLOOD SPECIMEN [facility] Address: [address] [place] [phone] Performed By: #### T SCR #### [facility] CLIA [id number] 1 [place] [address] [place] Calcium [Mass/Vol] 8.9 mg/dL Normal 8.5-10.2 [facility] Comment on above: Order Comment: Speci men Type: BLOOD SPECIMEN [facility] Address: [address] [place] [address] Performed By: #### T SCR #### [facility] CLIA [id number] [address] [place] Chloride [Moles/Vol] 104 mmol/L Normal 97-105 [facility] Comment on above: Order Comment: Speci men Type: BLOOD SPECIMEN [facility] Address: [address] [place] [address] Performed By: #### T SCR #### [facility] CLIA [id number] [address] [place] CO2 [Moles/Vol] 25 mmol/L Normal 22-30 [facility] Comment on above: Order Comment: Speci men Type: BLOOD SPECIMEN [facility] Address: [address] [place] [address] Performed By: #### T SCR #### [facility] CLIA [id number] [address] Creatinine [Mass/Vol] 0.75 mg/dL Normal 0.58-0.96 [facility] Comment on above: Order Comment: Speci men Type: BLOOD SPECIMEN [facility] Address: [address] [place] [address] Performed By: #### T SCR #### [facility] CLIA [id number] [address] ESTIMATED GLOMERULAR FILTRATION RATE 87 mL/min/1.73m??? Normal >=60 [facility] Comment on above: Order Comment: Speci men Type: BLOOD SPECIMEN [facility] Address: [address] [place] [address] Result Comment: Jessa mated Glomerular Filtration Rate [...] GFR. Performed By: #### T SCR #### [facility] CLIA [id number] 1 [place] [address] [place] Glucose [Mass/Vol] 98 mg/dL Normal 74-99 [facility] Comment on above: Order Comment: Kinsey herrera Type: BLOOD SPECIMEN [facility] Address: [address] [place] [address] Result Comment: The [place] Diabetes Association (ADA) provides guidance for cutoff [...] Standards of Medical Care in Diabetes 2016, [place] Diabetes Association. Diabetes Care. 2016.39(Suppl 1). Performed By: #### T SCR #### [facility] CLIA [id number] 1 [place] [address] [place] Potassium [Moles/Vol] 3.9 mmol/L Normal 3.7-5.1 [facility] Comment on above: Order Comment: Kinsey herrera Type: BLOOD SPECIMEN [facility] Address: [address] [place] [address] Performed By: #### T SCR #### [facility] CLIA [id number] 1 [place] [address] [place] Sodium [Moles/Vol] 139 mmol/L Normal 136-144 [facility] Comment on above: Order Comment: Kinsey herrera Type: BLOOD SPECIMEN [facility] Address: [address] [place] [address] Performed By: #### T SCR #### [facility] CLIA [id number] [address] Urea nitrogen [Mass/Vol] 10 mg/dL Normal 7-21 [facility] Comment on above: Order Comment: Speci men Type: BLOOD SPECIMEN [facility] Address: [address] [place] [address] Performed By: #### T SCR #### [facility] CLIA [id number] [address] CBC panel Auto (Bld)on 12-13 Erythrocyte distribution width (RBC) [Ratio] 13.6 % Normal 11.5-15.0 [facility] Comment on above: Order Comment: Speci men Type: BLOOD SPECIMEN [facility] Address: [address] [place] [address] Performed By: #### T SCR #### [facility] CLIA [id number] [address] Hematocrit (Bld) [Volume fraction] 38.4 % Normal 36.0-46.0 [facility] Comment on above: Order Comment: Speci men Type: BLOOD SPECIMEN [facility] Address: [address] [place] [address] Performed By: #### T SCR #### [facility] CLIA [id number] [address] Hemoglobin (Bld) [Mass/Vol] 12.3 g/dL Normal 11.5-15.5 [facility] Comment on above: Order Comment: Speci men Type: BLOOD SPECIMEN [facility] Address: [address] [place] [address] Performed By: #### T SCR #### [facility] CLIA [id number] [address] MCH (RBC) [Entitic mass] 29.6 pg Normal 26.0-34.0 [facility] Comment on above: Order Comment: Speci men Type: BLOOD SPECIMEN [facility] Address: [address] [place] [address] Performed By: #### T SCR #### [facility] CLIA [id number] [address] MCHC (RBC) [Mass/Vol] 32.0 g/dL Normal 30.5-36.0 [facility] Comment on above: Order Comment: Speci men Type: BLOOD SPECIMEN [facility] Address: [address] [address] Performed By: #### T SCR #### [facility] CLIA [id number] [address] MCV (RBC) [Entitic vol] 92.3 fL Normal 80.0-100.0 [facility] Comment on above: Order Comment: Speci men Type: BLOOD SPECIMEN [facility] Address: [address] [place] [address] Performed By: #### T SCR #### [facility] CLIA [id number] [address] Nucleated RBC (Bld) [#/Vol] 10*3/uL Normal <0.01 [facility] Comment on above: Order Comment: Speci men Type: BLOOD SPECIMEN [facility] Address: [address] [place] [address] Performed By: #### T SCR #### [facility] CLIA [id number] [address] Platelet mean volume (Bld) [Entitic vol] 9.9 fL Normal 9.0-12.7 [facility] Comment on above: Order Comment: Speci men Type: BLOOD SPECIMEN [facility] Address: [address] [place] [address] Performed By: #### T SCR #### [facility] CLIA [id number] [address] [place] Platelets (Bld) [#/Vol] 298 10*3/uL Normal 150-400 [facility] Comment on above: Order Comment: Speci men Type: BLOOD SPECIMEN [facility] Address: [address] [place] [address] Performed By: #### T SCR #### [facility] CLIA [id number] [address] RBC (Bld) [#/Vol] 4.16 10*6/uL Normal 3.90-5.20 [facility] Comment on above: Order Comment: Speci men Type: BLOOD SPECIMEN [facility] Address: [address] [place] [address] Performed By: #### T SCR #### [facility] CLIA [id number] [address] WBC (Bld) [#/Vol] 12.97 10*3/uL High 3.70-11.00 [facility] Comment on above: Order Comment: Speci men Type: BLOOD SPECIMEN [facility] Address: [address] [place] [address] Performed By: #### T SCR #### [facility] CLIA [id number] [address] BRAIN WO IVCONon 12-14-19 CT BRAIN WO IVCON * * *Final Report* * * DATE OF EXAM: Dec 13 2021 7:35PM [facility] 0504 - CT BRAIN WO IVCON [...] changes. There is no acute intracranial abnormality. Granite Setter: AYUSH Transcribe Date/Time: Dec 13 2021 7:51P Dictated by : GARY RIOS MD This examination was interpreted and the report reviewed and electronically signed by: GARY RIOS MD on Dec 13 2021 7:53PM EST [id number] Normal [facility] CT CERVICAL SPINE WO IVCONon 12-13-2021 CT CERVICAL SPINE WO IVCON * * *Final Report* * * DATE OF EXAM: Dec 13 2021 7:35PM [facility] 0505 - CT CERVICAL SPINE WO [...] pain persists, follow up studies are suggested. Granite Setter: AYUSH Transcribe Date/Time: Dec 13 2021 7:53P Dictated by : GARY RIOS MD This examination was interpreted and the report reviewed and electronically signed by: GARY RIOS MD on Dec 13 2021 7:55PM EST [id number] Normal [facility] ED NOTEon 12-13-2021 ED NOTE HNO ID: [id number] Author: Marin Jt, Medic Service: ? Author Type: Traction Power Engineer and Dry House Tender Type: ED Notes Filed: 12/13/2021 5:48 PM Note Text: Bed: 13-ED Expected date: Expected time: Means of arrival: Violet /EMS Comments: Hip Fx fell 3 days ago WFD Normal [facility] ED PROV NOTEon 12-13-2021 ED PROV NOTE HNO ID: [id number] Author: Wilbert Vang MD Service: Emergency Medicine [...] of neck of left femur, initial encounter (HCC) COVID-19 test performed per [facility] policy for suspected COVID community exposure. MDM [...] no e (more content not included)... Normal [facility] HISTORY PHYSICALon HISTORY PHYSICAL HNO ID: [id number] Author: Yasmany Roman MD Service: Orthopaedic Surgery Author Type: Physician Type: HANDP Filed: 04/22/2022 2:50 PM Note Text: ORTHOPAEDIC SURGERY HANDP Pt: CLARIBEL MEDELLINKRISTIAN Date of Admission: 12/13/2021 Chief Complaint: L Hip Pain HPI: 66 year old female with dementia presented to [facility] ED on 12/13/2021 for evaluation of [...] MD Date: 04/22/2022 Time: 2:49 PM Normal [facility] PT panel Coag (PPP)on 2021 INR Coag (PPP) [Relative time] 1.0 {INR} Normal 0.9-1.3 [facility] Comment on above: Order Comment: Speci men Type: BLOOD SPECIMENOrdering Facility: [facility] Address: [address] [place], [place] [id number] Result Comment: Suzan min K Antagonist (VKA) Therapeutic Range: INR 2 to 3 (Target INR of 2.5) Note: For patients treated with VKA drugs, such as warfarin, the [place] College of Chest Physicians 2012 Guideline recommends [...] Chest 2012, 141:7S-47S Harpreet RA, et al. JAC 2017, 70: 252-289 Performed By: #### 3 4528-0 ####[facility] LABORATORYCLIA [id number] [address] [place] PT Coag (PPP) [Time] 10.4 s Normal 9.7-13.0 [facility] Comment on above: Order Comment: Speci men Type: BLOOD SPECIMENOrdering Facility: [facility] Address: [address] [place] [address] Performed By: #### 3 4528-0 ####[facility] LABORATORYCLIA [id number] [address] SARS-CoV-2 RNA Resp Ql JEANA+p robeon 12-13-2021 SARS-CoV-2 (COVID-19) RNA JEANA+probe Ql (Resp) COVID 19 RESULT: SARS-CoV-2 (Agent of COVID-19) Not Detected by RT-PCR or equivalent method. This test has been authorized by FDA under an Emergency Use Authorization (EUA). Normal [facility] Comment on above: Performed By: #### 9 4500-6 ####[facility]ORATORYCLIA [id number] [address] TYPE + SCREENon 12-13-2021 ABO AB Normal [facility] Comment on above: Order Comment: Speci men Type: BLOOD SPECIMEN [facility] Address: [address] [place] [address] Performed By: #### T SCR #### [facility] CLIA [id number] [address] HISTORICAL AB SCR STATUS Negative Normal [facility] Comment on above: Order Comment: Speci men Type: BLOOD SPECIMEN [facility] Address: [address] [place] [address] Performed By: #### T SCR #### [facility] CLIA [id number] [address] Rh Nom (Bld) Positive Normal [facility] Comment on above: Order Comment: Speci men Type: BLOOD SPECIMEN [facility] Address: [address] [place] [address] Performed By: #### T SCR #### [facility] CLIA [id number] [address] TYPE AND SCREEN EXPIRATION 12/16/2021 23:59 Normal [facility] Comment on above: Order Comment: Speci men Type: BLOOD SPECIMEN [facility] Address: [address] [id number] Performed By: #### T SCR #### [facility] CLIA [id number] [address] XR CHEST 2V FRONTAL/LATon XR CHEST 2V FRONTAL/LAT * * *Final Repor t* * * DATE OF EXAM: Dec 13 2021 8:05PM [id number] - XR CHEST 2V FRONTAL/LAT / PROCEDURE REASON: Chest pain, nonspecific * * * * Physician Interpretation * * * * LEFT HIP X-RAY SERIES CLINICAL HISTORY: Fracture, hip (accession [id number]), Chest pain, nonspecific (accession [id number]) TECHNIQUE: AP pelvis, left hip true AP and frog-leg lateral view COMPARISON: 09/04/2015 RESULT: Cortical discontinuity at the lateral aspect of the left femoral head neck junction. There is also a faint band of sclerosis projecting over the subcapital segment. Findings suspicious for an impacted fracture. No significant narrowing of the bilateral hip joint spaces. CHEST X-RAY CLINICAL HISTORY: Fracture, hip (accession [id number]), Chest pain, nonspecific (accession [id number]) TECHNIQUE: Upright frontal and lateral views. COMPARISON: 09/04/2015 RESULT: Heart/mediastinum: Within normal limits. Lungs/pleura: Clear. No pleural fluid or pneumothorax. Bones/soft tissues: Left proximal humerus chronic fracture deformity. Lines/tubes/devices: None visualized. IMPRESSION: Pelvis and left hip: Suspect femoral neck subcapital fracture with impaction. Recommend CT scanning for confirmation. CHEST: No active disease. Granite Setter: AYUSH Transcribe Date/Time: Dec 13 2021 8:19P Dictated by : SAVANNA SILVERMAN MD This examination was interpreted and the report reviewed and electronically signed by: SAVANNA SILVERMAN MD on Dec 13 2021 8:24PM EST [id number] Normal [facility] XR HIP 3V PELV+ AP/LAT LTon 12-13-2021 XR HIP 3V PELV+ AP/LAT LT * * *Final Report* * * DATE OF EXAM: Dec 13 2021 8:05PM [id number] - XR HIP 3V PELV+ AP/LAT LT / PROCEDURE REASON: Fracture, hip * * * * Physician Interpretation * * * * LEFT HIP X-RAY SERIES CLINICAL HISTORY: Fracture, hip (accession [id number]), Chest pain, nonspecific (accession [id number]) TECHNIQUE: AP pelvis, left hip true AP and frog-leg lateral view COMPARISON: 09/04/2015 RESULT: Cortical discontinuity at the lateral aspect of the left femoral head neck junction. There is also a faint band of sclerosis projecting over the subcapital segment. Findings suspicious for an impacted fracture. No significant narrowing of the bilateral hip joint spaces. CHEST X-RAY CLINICAL HISTORY: Fracture, hip (accession [id number]), Chest pain, nonspecific (accession [id number]) TECHNIQUE: Upright frontal and lateral views. COMPARISON: 09/04/2015 RESULT: Heart/mediastinum: Within normal limits. Lungs/pleura: Clear. No pleural fluid or pneumothorax. Bones/soft tissues: Left proximal humerus chronic fracture deformity. Lines/tubes/devices: None visualized. IMPRESSION: Pelvis and left hip: Suspect femoral neck subcapital fracture with impaction. Recommend CT scanning for confirmation. CHEST: No active disease. Granite Setter: AYUSH Transcribe Date/Time: Dec 13 2021 8:19P Dictated by : SAVANNA SILVERMAN MD This examination was interpreted and the report reviewed and electronically signed by: SAVANNA SILVERMAN MD on Dec 13 2021 8:24PM EST [id number] Normal [facility] No Panel Informationon 08-06 Urine Microalbumin/Creatinine Ratio [facility] Work Phone: Comment on above: Test not performed Thin prep Papanicolaou smear with manual screeningon 08-06-2021 Thin prep Papanicolaou smear with manual screening < 5.0 mg/L NO RANGE EST. [facility] Work Phone: Urine creatinine measurement (mass/volume)on 08-06-2021 Creatinine (U) [Mass/Vol] 27.50 mg/dL NO RANGE EST. [facility] Work Phone: Basophil percentageon 2021 Bilirubin [Mass/Vol] 0.40 mg/dL 0.20-1.00 [facility] Work Phone: Comment on above: For patients on eltr ombopag therapy, use of Dimension May TBIL is not recommended. Chloride [Moles/Vol] 108 mmol/L 98-107 [facility] Work Phone: Cholesterol [Mass/Vol] 123 mg/dL <200 [facility] Work Phone: [phone] Comment on above: <200 mg/dL Desirable 200-240 mg/dL Borderline >240 mg/dL High Risk Glucose [Mass/Vol] 94 mg/dL 74-106 [facility] Work Phone: [phone] Potassium [Moles/Vol] 4.2 mmol/L 3.5-5.1 [facility] Work Phone: [phone] Protein [Mass/Vol] 7.0 g/dL 6.4-8.2 [facility] Work Phone: [phone] Sodium [Moles/Vol] 140 mmol/L 136-145 [facility] Work Phone: [phone] Triglyceride [Mass/Vol] 49 mg/dL <199 [facility] Work Phone: [phone] Comment on above: The drugs N-Acetylcy steine and Metamizole may falsely depress this assay.Serum Triglycerides Reference Interval Normal <150 mg/dL Borderline high 150 - 199 mg/dL High 200 - 499 mg/dL Very High > or = 500 mg/dL WBC (Bld) [#/Vol] 8.4 10*3/uL 4.4-11.0 [facility] Work Phone: Blood erythrocytes count (nu mber/volume)on 07-04-2021 RBC (Bld) [#/Vol] 3.88 10*6/uL 4.2-5.4 [facility] Work Phone: Blood hemoglobin measurement (mass/volume)on 07-04-2021 Hemoglobin (Bld) [Mass/Vol] 11.6 g/dL 12.0-15.0 [facility] Work Phone: Blood platelet mean volumeon 07-04-2021 Platelet mean volume (Bld) [Entitic vol] 10.4 fL 6.2-12.0 [facility] Work Phone: Determination of erythrocyte mean corpuscular volume (MCV)on 07-04-2021 MCV (RBC) [Entitic vol] 94.3 fL 81-99 [facility] Work Phone: Hematocrit Auto (Bld) [Volum e fraction]on 07-04-2021 Hematocrit (Bld) [Volume fraction] 36.6 % 37-47 [facility] Work Phone: Laboratory - Chemistry and C hemistry - challengeon 07-04-2021 ALP [Catalytic activity/Vol] 86 U/L 45-117 [facility] Work Phone: ALT [Catalytic activity/Vol] 17 U/L 13-56 [facility] Work Phone: CO2 [Moles/Vol] 28.0 mmol/L 21.0-32.0 [facility] Work Phone: Globulin (S) [Mass/Vol] 3.9 g/dL 2.2-4.2 [facility] Work Phone: Magnesium [Mass/Vol] 2.3 mg/dL 1.6-2.6 [facility] Work Phone: Urea nitrogen/Creatinine [Mass ratio] 15.6 mg/mg 10-20 [facility] Work Phone: Laboratory - Hematology and Cell countson 07-04-2021 Erythrocyte distribution width (RBC) [Entitic vol] 44.7 fL 35.1-43.9 [facility] Work Phone: [phone] Erythrocyte distribution width (RBC) [Ratio] 12.9 % 11.6-14.6 [facility] Work Phone: MCH (RBC) [Entitic mass] 29.9 pg 27.0-32.0 [facility] Work Phone: [phone] MCHC Auto (RBC) [Mass/Vol]on 07-04-2021 MCHC (RBC) [Mass/Vol] 31.7 g/dL 32-36 [facility] Work Phone: No Panel Informationon 07-04 Estimated GFR (MDRD) Amer 88 mL/min >60 [facility] Work Phone: Comment on above: GFR Calc Estimated GFR (MDRD) Non-Af Amer 73 mL/min >60 [facility] Work Phone: [phone] Comment on above: Non- GFR Calc Thyroid Stimulating Hormone (TSH) 1.99 uIU/mL 0.358-3.74 [facility] Work Phone: Vitamin D 25-Hydroxy 24.4 ng/mL [facility] Work Phone: Comment on above: Vitamin D 25(OH) Sta tus Range Deficiency <20 ng/mL (50nmol/L) Insufficiency 20 - 30 ng/mL (50 - 75 nmol/L) Sufficiency 30 - 100 ng/mL (75 - 250 nmol/L) Toxicity >100 ng/mL (>250 nmol/L) Platelets bldon 07-04-2021 Platelets (Bld) [#/Vol] 330 10*3/uL 150-450 [facility] Work Phone: [phone] Serum or plasma albumin raul urement (mass/volume)on 07-04-2021 Albumin [Mass/Vol] 3.1 g/dL 3.2-5.0 [facility] Work Phone: [phone] Serum or plasma albumin/glob ulin mass ratioon 07-04-2021 Albumin/Globulin [Mass ratio] 0.8 {ratio} 0.9-2.4 [facility] Work Phone: Serum or plasma calcium raul urement (mass/volume)on 07-04-2021 Calcium [Mass/Vol] 8.8 mg/dL 8.5-10.1 [facility] Work Phone: Serum or plasma cholesterol in HDL measurement (mass/volume)on 07-04-2021 Cholesterol in HDL [Mass/Vol] 63 mg/dL >40 [facility] Work Phone: Comment on above: The drugs N-Acetylcy steine and Metamizole may falsely depress this assay. Reference Range HDL <40 mg/dL Low HDL Cholesterol HDL >or= 60 mg/dL High HDL Cholesterol Serum or plasma cholesterol in VLDL measurement (mass/volume)on 07-04-2021 Cholesterol in VLDL [Mass/Vol] 10 mg/dL 5-40 [facility] Work Phone: [phone] Serum or plasma creatinine m easurement (mass/volume)on 07-04-2021 Creatinine [Mass/Vol] 0.83 mg/dL 0.55-1.02 [facility] Work Phone: Comment on above: The validity of the calculated GFR & GFRAA in patients over 70 years has not been determined. Clinical correlation is essential. Serum or plasma low density lipoprotein (LDL) cholesterol measurement (mass/volume)on 07-04-2021 Cholesterol in LDL [Mass/Vol] 50 mg/dL 0-130 [facility] Work Phone: [phone] Serum or plasma urea nitroge n measurement (mass/volume)on 07-04-2021 Urea nitrogen [Mass/Vol] 13 mg/dL 7-18 [facility] Work Phone: [phone] Thin prep Papanicolaou smear with manual screeningon 07-04-2021 Thin prep Papanicolaou smear with manual screening 16 U/L 15-37 [facility] Work Phone: [phone] Thin prep Papanicolaou smear with manual screening 4 5-15 [facility] Work Phone: [phone] Whole blood hemoglobin A1c/t otal hemoglobin ratio (mass fraction)on 07-04-2021 HbA1c (Bld) [Mass fraction] 5.3 % 3.8-5.6 [facility] Work Phone: Comment on above: Normal < 5.7 % Predi abetic 5.7 - 6.4 % Diabetic >or= 6.5 % Please note range changes. Basophil percentageon 2021 Cholesterol [Mass/Vol] 110 mg/dL <200 [facility] Work Phone: Comment on above: <200 mg/dL Desirable 200-240 mg/dL Borderline >240 mg/dL High Risk Triglyceride [Mass/Vol] 59 mg/dL <199 [facility] Work Phone: Comment on above: The drugs N-Acetylcy steine and Metamizole may falsely depress this assay.Serum Triglycerides Reference Interval Normal <150 mg/dL Borderline high 150 - 199 mg/dL High 200 - 499 mg/dL Very High > or = 500 mg/dL Serum or plasma cholesterol in HDL measurement (mass/volume)on 05-31-2021 Cholesterol in HDL [Mass/Vol] 59 mg/dL >40 [facility] Work Phone: Comment on above: The drugs N-Acetylcy steine and Metamizole may falsely depress this assay. Reference Range HDL <40 mg/dL Low HDL Cholesterol HDL >or= 60 mg/dL High HDL Cholesterol Serum or plasma cholesterol in VLDL measurement (mass/volume)on 05-31-2021 Cholesterol in VLDL [Mass/Vol] 12 mg/dL 5-40 [facility] Work Phone: Serum or plasma low density lipoprotein (LDL) cholesterol measurement (mass/volume)on 05-31-2021 Cholesterol in LDL [Mass/Vol] 39 mg/dL 0-130 [facility] Work Phone: Basophil percentageon 2021 Ammonia (P) [Moles/Vol] 42.0 umol/L 11-32 [facility] Work Phone: Bilirubin [Mass/Vol] 0.40 mg/dL 0.20-1.00 [facility] Work Phone: [phone] Comment on above: For patients on eltr ombopag therapy, use of Dimension May TBIL is not recommended. Chloride [Moles/Vol] 107 mmol/L 98-107 [facility] Work Phone: [phone] Glucose [Mass/Vol] 92 mg/dL 74-106 [facility] Work Phone: [phone] Potassium [Moles/Vol] 4.2 mmol/L 3.5-5.1 [facility] Work Phone: [phone] Protein [Mass/Vol] 6.9 g/dL 6.4-8.2 [facility] Work Phone: [phone] Sodium [Moles/Vol] 139 mmol/L 136-145 [facility] Work Phone: [phone] WBC (Bld) [#/Vol] 9.5 10*3/uL 4.4-11.0 [facility] Work Phone: [phone] Bilirubin Test strip Ql (U)o n 04-23-2021 Bilirubin Ql (U) Negative Negative [facility] Work Phone: [phone] Blood erythrocytes count (nu mber/volume)on 04-23-2021 RBC (Bld) [#/Vol] 3.82 10*6/uL 4.2-5.4 [facility] Work Phone: [phone] Blood hemoglobin measurement (mass/volume)on 04-23-2021 Hemoglobin (Bld) [Mass/Vol] 11.5 g/dL 12.0-15.0 [facility] Work Phone: [phone] Blood platelet mean volumeon 04-23-2021 Platelet mean volume (Bld) [Entitic vol] 10.0 fL 6.2-12.0 [facility] Work Phone: [phone] Culture, urineon 04-23-2021 Bacteria identified Cx Nom (U) GNR lactose qa developer [facility] Work Phone: [phone] Bacteria identified Cx Nom (U) Negative [facility] Work Phone: [phone] Determination of erythrocyte mean corpuscular volume (MCV)on 04-23-2021 MCV (RBC) [Entitic vol] 92.4 fL 81-99 [facility] Work Phone: Direct bilirubinon 2 Bilirubin.direct [Mass/Vol] 0.12 mg/dL 0.00-0.30 [facility] Work Phone: [phone] Hematocrit Auto (Bld) [Volum e fraction]on 04-23-2021 Hematocrit (Bld) [Volume fraction] 35.3 % 37-47 [facility] Work Phone: [phone] Ketones Test strip Ql (U)on 04-23-2021 Ketones Ql (U) Negative Negative [facility] Work Phone: [phone] Laboratory - Chemistry and C hemistry - challengeon 04-23-2021 ALP [Catalytic activity/Vol] 90 U/L 45-117 [facility] Work Phone: [phone] ALT [Catalytic activity/Vol] 12 U/L 13-56 [facility] Work Phone: [phone] CO2 [Moles/Vol] 26.0 mmol/L 21.0-32.0 [facility] Work Phone: [phone] Globulin (S) [Mass/Vol] 3.9 g/dL 2.2-4.2 [facility] Work Phone: [phone] Urea nitrogen/Creatinine [Mass ratio] 16.8 mg/mg 10-20 [facility] Work Phone: [phone] Laboratory - Hematology and Cell countson 04-23-2021 Erythrocyte distribution width (RBC) [Entitic vol] 43.8 fL 35.1-43.9 [facility] Work Phone: [phone] Erythrocyte distribution width (RBC) [Ratio] 13.0 % 11.6-14.6 [facility] Work Phone: [phone] MCH (RBC) [Entitic mass] 30.1 pg 27.0-32.0 [facility] Work Phone: [phone] MCHC Auto (RBC) [Mass/Vol]on 03-01-2022 MCHC (RBC) [Mass/Vol] 32.6 g/dL 32-36 [facility] Work Phone: Nitrite Test strip Ql (U)on 04-23-2021 Nitrite Ql (U) Negative Negative [facility] Work Phone: No Panel Informationon 04-23 Estimated GFR (MDRD) Amer 96 mL/min >60 [facility] Work Phone: Comment on above: GFR Calc Estimated GFR (MDRD) Non-Af Amer 79 mL/min >60 [facility] Work Phone: Comment on above: Non- GFR Calc Platelets bldon 04-23-2021 Platelets (Bld) [#/Vol] 309 10*3/uL 150-450 [facility] Work Phone: Protein Test strip Ql (U)on 04-23-2021 Protein Ql (U) Negative Negative [facility] Work Phone: [phone] Serum or plasma albumin raul urement (mass/volume)on 04-23-2021 Albumin [Mass/Vol] 3.0 g/dL 3.2-5.0 [facility] Work Phone: Serum or plasma calcium raul urement (mass/volume)on 04-23-2021 Calcium [Mass/Vol] 8.4 mg/dL 8.5-10.1 [facility] Work Phone: Serum or plasma creatinine m easurement (mass/volume)on 04-23-2021 Creatinine [Mass/Vol] 0.77 mg/dL 0.55-1.02 [facility] Work Phone: Comment on above: The validity of the calculated GFR & GFRAA in patients over 70 years has not been determined. Clinical correlation is essential. Serum or plasma urea nitroge n measurement (mass/volume)on 04-23-2021 Urea nitrogen [Mass/Vol] 13 mg/dL 7-18 [facility] Work Phone: [phone] Thin prep Papanicolaou smear with manual screeningon 04-23-2021 Thin prep Papanicolaou smear with manual screening 12 U/L 15-37 [facility] Work Phone: Thin prep Papanicolaou smear with manual screening 6 5-15 [facility] Work Phone: Urine blood detectionon 03-0 RBC Ql (U) Negative Negative [facility] Work Phone: Urine clarityon 04-23-2021 Clarity (U) Sl. Cloudy Clear [facility] Work Phone: Urine color determinationon 04-23-2021 Color (U) Yellow Yellow [facility] Work Phone: Urine glucose detectionon Glucose Ql (U) Normal mg/dl Normal [facility] Work Phone: Urine leukocyte esterase det ection by dipstickon 04-23-2021 Leukocyte esterase Test strip Ql (U) Negative Negative [facility] Work Phone: Urine pHon 04-23-2021 pH (U) 7.0 [pH] 5.0 - 8.0 [facility] Work Phone: Urine specific gravity measu rementon 04-23-2021 Specific gravity (U) [Rel density] 1.010 1.002-1.030 [facility] Work Phone: Urobilinogen Auto test strip Ql (U)on 04-23-2021 Urobilinogen Ql (U) Normal mg/dl Normal [facility] Work Phone: RPRon 05-20-2018 Reagin Ab RPR Ql (S) Non-reactive Normal Nonreactive [facility] Comment on above: Performed By: #### P 14 #### [facility] [address] [place] [address] Free Thyroxineon 05-18-2018 T4 free mass conc 1.02 ng/dL Normal 0.76-1.46 [facility] Comment on above: Performed By: #### P 14 #### [place] [address] Potassium Bloodon 05-18-2018 Potassium molar conc 3.5 mmol/L Normal 3.5-5.1 [facility] Comment on above: Performed By: #### P 14 #### [facility] [address] [place] [address] Hemogram/Diffon 05-17-2018 Abs Immature Grans 0.02 thou/cmm Normal 0.00-0.05 [facility] Comment on above: Performed By: #### P 14 #### [facility] [address] [place] [address] Abs. Baso 0.08 thou/cmm Normal 0.01-0.08 [facility] Comment on above: Performed By: #### P 14 #### [facility] [address] [place] [address] Abs. [place] 0.81 thou/cmm High 0.27-0.70 [facility] Comment on above: Performed By: #### P 14 #### [facility] [address] [place] [address] Abs. Neut (ANC) 2.38 thou/cmm Normal 1.56-6.13 [facility] Comment on above: Performed By: #### P 14 #### [facility] [address] [place] [address] Basophils/100 WBC (Bld) 1.2 % Normal [facility] Comment on above: Performed By: #### P 14 #### [facility] [address] [place] [address] Eosinophils #/vol (Bld) 0.16 thou/cmm Normal 0.00-0.31 [facility] Comment on above: Performed By: #### P 14 #### [facility] [address] [place] [address] Eosinophils/100 WBC (Bld) 2.5 % Normal [facility] Comment on above: Performed By: #### P 14 #### [facility] [address] [place] [address] Erythrocyte distribution width Ratio (RBC) 14.2 % Normal 11.7-14.4 [facility] Comment on above: Performed By: #### P 14 #### [facility] [address] [place] [address] Hematocrit Volume Fraction (Bld) 26.9 % Low 34.1-44.9 [facility] Comment on above: Performed By: #### P 14 #### [facility] [address] [place] [address] Hemoglobin mass conc (Bld) 9.0 g/dL Low 11.2-15.7 [facility] Comment on above: Performed By: #### P 14 #### [facility] [address] [place] [address] Immature Grans 0.30 % Normal [facility] Comment on above: Performed By: #### P 14 #### [facility] [address] [place] [address] Lymphocytes #/vol (Bld) 2.96 thou/cmm Normal 1.18-3.74 [facility] Comment on above: Performed By: #### P 14 #### [facility] [address] [place] [address] Lymphocytes/100 WBC (Bld) 46.2 % Normal [facility] Comment on above: Performed By: #### P 14 #### [facility] [address] [place] [address] MCH Entitic mass (RBC) 36.0 pg High 25.6-32.2 [facility] Comment on above: Performed By: #### P 14 #### [facility] [address] [place] [address] MCHC mass conc (RBC) 33.5 % Normal 31.6-34.8 [facility] Comment on above: Performed By: #### P 14 #### [facility] [address] [place] [address] MCV Entitic volume (RBC) 107.6 fL High 79.4-94.8 [facility] Comment on above: Performed By: #### P 14 #### [facility] [address] [place] [address] Monocytes/100 WBC (Bld) 12.6 % Normal [facility] Comment on above: Performed By: #### P 14 #### [facility] [address] [place] [address] Platelet mean volume Entitic volume (Bld) 8.6 fL Low 9.4-12.3 [facility] Comment on above: Performed By: #### P 14 #### [facility] [address] [place] [address] Platelets #/vol (Bld) 298 thou/cmm Normal 182-369 [facility] Comment on above: Performed By: #### P 14 #### [facility] [address] [place] [address] RBC #/vol (Bld) 2.50 mil/cmm Low 3.93-5.22 [facility] Comment on above: Performed By: #### P 14 #### [facility] [address] [place] [address] RDW SD 55.8 fl High 36.4-46.3 [facility] Comment on above: Performed By: #### P 14 #### [place] [address] Seg Neutrophil 37.2 % Normal [facility] Comment on above: Performed By: #### P 14 #### [facility] [address] [place] [address] WBC #/vol (Bld) 6.41 thou/cmm Normal 3.98-10.04 [facility] Comment on above: Performed By: #### P 14 #### [place] [address] MDRD GFRon 05-17-2018 GFR/1.73 sq M predicted among non-blacks MDRD vol rate/area (S/P/Bld) mL/min/{1.73_m2} Normal >60mL/min/1.7 3m2 [facility] Comment on above: Result Comment: If t he patient is , multiply the result by 1.210. Performed By: #### G FR #### [place] [address] Renal Panelon 05-17-2018 Creatinine mass conc 0.50 mg/dL Low 0.51-0.95 [facility] Comment on above: Performed By: #### P 14 #### [facility] [address] [place], [place] [address] Phosphate mass conc 2.7 mg/dL Normal 2.5-4.9 [facility] Comment on above: Performed By: #### P 14 #### [facility] [address] [place], [place] [address] Albumin mass conc 1.2 g/dL Low 3.4-5.0 [facility] Comment on above: Performed By: #### P 14 #### [facility] [address] [place], [place] [address] CO2 molar conc 24 mmol/L Normal 21-32 [facility] Comment on above: Performed By: #### P 14 #### [facility] [address] [place], [place] [address] Glucose mass conc 73 mg/dL Normal 70-99 [facility] Comment on above: Performed By: #### P 14 #### [facility] [address] [place], [place] [address] Calcium mass conc 7.5 mg/dL Low 8.5-10.1 [facility] Comment on above: Performed By: #### P 14 #### [facility] [address] [place], [place] [address] Urea nitrogen mass conc 2 mg/dL Low 7-18 [facility] Comment on above: Performed By: #### P 14 #### [facility] [address] [place], [place] [address] Chloride molar conc 107 mmol/L Normal 98-107 [facility] Comment on above: Performed By: #### P 14 #### [facility] [address] [place], [place] [address] Potassium molar conc 3.2 mmol/L Low 3.5-5.1 [facility] Comment on above: Performed By: #### P 14 #### [facility] [address] [place], [place] [address] Sodium molar conc 137 mmol/L Normal 136-145 [facility] Comment on above: Performed By: #### P 14 #### [facility] [address] [place], [place] [address] TSH, 3rd generationon 2018 TSH, 3rd generation 9.710 uIU/mL High 0.358-3.740 [facility] Comment on above: Performed By: #### P 14 #### [facility] [address] [place] [address] Basic Panelon 05-15-2018 Creatinine mass conc 0.56 mg/dL Normal 0.51-0.95 [facility] Comment on above: Performed By: #### P 14 #### [facility] [address] [place] [address] Anion gap molar conc 13 mmol/L Normal 8-16 [facility] Comment on above: Performed By: #### P 14 #### [facility] [address] [place] [address] Calcium mass conc 7.5 mg/dL Low 8.5-10.1 [facility] Comment on above: Performed By: #### P 14 #### [facility] [address] [place] [address] CO2 molar conc 19 mmol/L Low 21-32 [facility] Comment on above: Performed By: #### P 14 #### [facility] [address] [place] [address] Glucose mass conc 56 mg/dL Low 70-99 [facility] Comment on above: Performed By: #### P 14 #### [facility] [address] [place] [address] Urea nitrogen mass conc 3 mg/dL Low 7-18 [facility] Comment on above: Performed By: #### P 14 #### [facility] [address] [place] [address] Chloride molar conc 110 mmol/L High 98-107 [facility] Comment on above: Performed By: #### P 14 #### [facility] [address] [place] [address] Potassium molar conc 3.8 mmol/L Normal 3.5-5.1 [facility] Comment on above: Performed By: #### P 14 #### [facility] [address] [place] [address] Sodium molar conc 138 mmol/L Normal 136-145 [facility] Comment on above: Performed By: #### P 14 #### [facility] [address] [place] [address] Basic Panelon 05-14-2018 Creatinine mass conc 0.65 mg/dL Normal 0.51-0.95 [facility] Comment on above: Performed By: #### P 14 #### [facility] [address] [place] [address] Anion gap molar conc 10 mmol/L Normal 8-16 [facility] Comment on above: Performed By: #### P 14 #### [facility] [address] [place] [address] CO2 molar conc 21 mmol/L Normal 21-32 [facility] Comment on above: Performed By: #### P 14 #### [facility] [address] [place] [address] Glucose mass conc 59 mg/dL Low 70-99 [facility] Comment on above: Performed By: #### P 14 #### [facility] [address] [place] [address] Urea nitrogen mass conc 3 mg/dL Low 7-18 [facility] Comment on above: Performed By: #### P 14 #### [facility] [address] [place] [address] Calcium mass conc 7.7 mg/dL Low 8.5-10.1 [facility] Comment on above: Performed By: #### P 14 #### [facility] [address] [place] [address] Chloride molar conc 111 mmol/L High 98-107 [facility] Comment on above: Performed By: #### P 14 #### [facility] [address] [place] [address] Potassium molar conc 3.1 mmol/L Low 3.5-5.1 [facility] Comment on above: Performed By: #### P 14 #### [facility] [address] [place] [address] Sodium molar conc 139 mmol/L Normal 136-145 [facility] Comment on above: Performed By: #### P 14 #### [facility] [address] [place] [address] Basic Panelon 05-13-2018 Creatinine mass conc 0.71 mg/dL Normal 0.51-0.95 [facility] Comment on above: Performed By: #### P 14 #### [facility] [address] [place] [address] Anion gap molar conc 11 mmol/L Normal 8-16 [facility] Comment on above: Performed By: #### P 14 #### [facility] [address] [place] [address] Calcium mass conc 7.6 mg/dL Low 8.5-10.1 [facility] Comment on above: Performed By: #### P 14 #### [facility] [address] [place] [address] CO2 molar conc 20 mmol/L Low 21-32 [facility] Comment on above: Performed By: #### P 14 #### [facility] [address] [place] [address] Glucose mass conc 81 mg/dL Normal 70-99 [facility] Comment on above: Performed By: #### P 14 #### [facility] [address] [place] [address] Urea nitrogen mass conc 3 mg/dL Low 7-18 [facility] Comment on above: Performed By: #### P 14 #### [facility] [address] [place], [place] [address] Chloride molar conc 109 mmol/L High 98-107 [facility] Comment on above: Performed By: #### P 14 #### [facility] [address] [place] [address] Potassium molar conc 3.4 mmol/L Low 3.5-5.1 [facility] Comment on above: Performed By: #### P 14 #### [facility] [address] [place] [address] Sodium molar conc 137 mmol/L Normal 136-145 [facility] Comment on above: Performed By: #### P 14 #### [facility] [address] [place] [address] Hemogramon 05-13-2018 Erythrocyte distribution width Ratio (RBC) 13.8 % Normal 11.7-14.4 [facility] Comment on above: Performed By: #### C BCD1 #### [facility] [address] [place] [address] Hematocrit Volume Fraction (Bld) 28.9 % Low 34.1-44.9 [facility] Comment on above: Performed By: #### C BCD1 #### [facility] [address] [place] [address] Hemoglobin mass conc (Bld) 9.5 g/dL Low 11.2-15.7 [facility] Comment on above: Performed By: #### C BCD1 #### [facility] [address] [place] [address] MCH Entitic mass (RBC) 36.5 pg High 25.6-32.2 [facility] Comment on above: Performed By: #### C BCD1 #### [facility] [address] [place] [address] MCHC mass conc (RBC) 32.9 % Normal 31.6-34.8 [facility] Comment on above: Performed By: #### C BCD1 #### [place] [address] MCV Entitic volume (RBC) 111.2 fL High 79.4-94.8 [facility] Comment on above: Performed By: #### C BCD1 #### [facility] [address] [place] [address] Platelet mean volume Entitic volume (Bld) 8.3 fL Low 9.4-12.3 [facility] Comment on above: Performed By: #### C BCD1 #### [facility] [address] [place] [address] Platelets #/vol (Bld) 308 thou/cmm Normal 182-369 [facility] Comment on above: Performed By: #### C BCD1 #### [facility] [address] [place] [address] RBC #/vol (Bld) 2.60 mil/cmm Low 3.93-5.22 [facility] Comment on above: Performed By: #### C BCD1 #### [facility] [address] [place], [place] [address] RDW SD 57.0 fl High 36.4-46.3 [facility] Comment on above: Performed By: #### C BCD1 #### [facility] [address] [place], [place] [address] WBC #/vol (Bld) 7.55 thou/cmm Normal 3.98-10.04 [facility] Comment on above: Performed By: #### C BCD1 #### [facility] [address] [place], [place] [address] Hepatic Panelon 05-13-2018 ALP enzyme act/vol 171 U/L High 46-116 [facility] Comment on above: Performed By: #### C BCD1 #### [facility] [address] [place], [place] [address] Protein mass conc 5.3 g/dL Low 6.4-8.2 [facility] Comment on above: Performed By: #### C BCD1 #### [facility] [address] [place], [place] [address] Bilirubin mass conc 0.7 mg/dL Normal 0.2-1.0 [facility] Comment on above: Performed By: #### C BCD1 #### [facility] [address] [place], [place] [address] ALT enzyme act/vol 22 U/L Normal 12-78 [facility] Comment on above: Performed By: #### C BCD1 #### [facility] [address] [place], [place] [address] AST enzyme act/vol 44 U/L High 9-37 [facility] Comment on above: Performed By: #### C BCD1 #### [facility] [address] [place], [place] [address] Bilirubin mass conc 0.45 mg/dL High 0.00-0.20 [facility] Comment on above: Performed By: #### C BCD1 #### [facility] [address] [place], [place] [address] Albumin mass conc 1.3 g/dL Low 3.4-5.0 [facility] Comment on above: Performed By: #### C BCD1 #### [facility] [address] [place] [address] Basic Panelon 05-12-2018 Creatinine mass conc 0.68 mg/dL Normal 0.51-0.95 [facility] Comment on above: Performed By: #### C BCD1 #### [facility] [address] [place] [address] Anion gap molar conc 13 mmol/L Normal 8-16 [facility] Comment on above: Performed By: #### C BCD1 #### [facility] [address] [place] [address] CO2 molar conc 20 mmol/L Low 21-32 [facility] Comment on above: Performed By: #### C BCD1 #### [facility] [address] [place] [address] Glucose mass conc 94 mg/dL Normal 70-99 [facility] Comment on above: Performed By: #### C BCD1 #### [facility] [address] [place] [address] Urea nitrogen mass conc 4 mg/dL Low 7-18 [facility] Comment on above: Performed By: #### C BCD1 #### [facility] [address] [place] [address] Calcium mass conc 7.5 mg/dL Low 8.5-10.1 [facility] Comment on above: Performed By: #### C BCD1 #### [facility] [address] [place] [address] Chloride molar conc 104 mmol/L Normal 98-107 [facility] Comment on above: Performed By: #### C BCD1 #### [facility] [address] [place] [address] Potassium molar conc 2.8 mmol/L Low 3.5-5.1 [facility] Comment on above: Performed By: #### C BCD1 #### [facility] [address] [place] [address] Sodium molar conc 134 mmol/L Low 136-145 [facility] Comment on above: Performed By: #### C BCD1 #### [facility] [address] [place] [address] CRPon 05-12-2018 CRP mass conc 6.85 mg/dL High 0.00-0.30 [facility] Comment on above: Performed By: #### C BCD1 #### [facility] [address] [place] [address] Folateon 05-12-2018 Folate 6.80 ng/mL Normal 3.10-17.50 [facility] Comment on above: Performed By: #### C BCD1 #### [facility] [address] [place] [address] Hemogramon 05-12-2018 Erythrocyte distribution width Ratio (RBC) 13.6 % Normal 11.7-14.4 [facility] Comment on above: Performed By: #### C BCD1 #### [facility] [address] [place] [address] Hematocrit Volume Fraction (Bld) 28.6 % Low 34.1-44.9 [facility] Comment on above: Performed By: #### C BCD1 #### [facility] [address] [place] [address] Hemoglobin mass conc (Bld) 9.5 g/dL Low 11.2-15.7 [facility] Comment on above: Performed By: #### C BCD1 #### [facility] [address] [place] [address] MCH Entitic mass (RBC) 36.1 pg High 25.6-32.2 [facility] Comment on above: Performed By: #### C BCD1 #### [facility] [address] [place] [address] MCHC mass conc (RBC) 33.2 % Normal 31.6-34.8 [facility] Comment on above: Performed By: #### C BCD1 #### [facility] [address] [place] [address] MCV Entitic volume (RBC) 108.7 fL High 79.4-94.8 [facility] Comment on above: Performed By: #### C BCD1 #### [facility] [address] [place] [address] Platelet mean volume Entitic volume (Bld) 8.3 fL Low 9.4-12.3 [facility] Comment on above: Performed By: #### C BCD1 #### [facility] [address] [place] [address] Platelets #/vol (Bld) 310 thou/cmm Normal 182-369 [facility] Comment on above: Performed By: #### C BCD1 #### [facility] [address] [place] [address] RBC #/vol (Bld) 2.63 mil/cmm Low 3.93-5.22 [facility] Comment on above: Performed By: #### C BCD1 #### [place] [address] RDW SD 54.0 fl High 36.4-46.3 [facility] Comment on above: Performed By: #### C BCD1 #### [place] [address] WBC #/vol (Bld) 10.75 thou/cmm High 3.98-10.04 [facility] Comment on above: Performed By: #### C BCD1 #### [place] [address] Sed Rateon 05-12-2018 Sed Rate 36 mm/hr High 0-20 [facility] Comment on above: Performed By: #### C BCD1 #### [place] [address] Vancomycin,Randomon 05-13-19 19 INR Coag RelTime (Bld) 20.8 mg/L Normal [facility] Comment on above: Result Comment: Trou gh 10.0-20.0 mg/L Peak 18.0-40.0 mg/L Performed By: #### C BCD1 #### [place] [address] Vitamin B12on 05-12-2018 Cobalamin (Vitamin B12) mass conc 1456 pg/mL High 193-986 [facility] Comment on above: Performed By: #### C BCD1 #### [address], [place] [address] Basic Panelon 05-11-2018 Creatinine mass conc 0.36 mg/dL Low 0.51-0.95 [facility] Comment on above: Performed By: #### P 8 #### [facility] [address] [place], [place] [address] Anion gap molar conc 12 mmol/L Normal 8-16 [facility] Comment on above: Performed By: #### P 8 #### [facility] [address] [place], [place] [address] CO2 molar conc 23 mmol/L Normal 21-32 [facility] Comment on above: Performed By: #### P 8 #### [facility] [address] [place], [place] [address] Urea nitrogen mass conc 4 mg/dL Low 7-18 [facility] Comment on above: Performed By: #### P 8 #### [facility] [address] [place], [place] [address] Calcium mass conc 7.6 mg/dL Low 8.5-10.1 [facility] Comment on above: Performed By: #### P 8 #### [facility] [address] [place], [place] [address] Glucose mass conc 102 mg/dL High 70-99 [facility] Comment on above: Performed By: #### P 8 #### [facility] [address] [place], [place] [address] Chloride molar conc 102 mmol/L Normal 98-107 [facility] Comment on above: Performed By: #### P 8 #### [facility] [address] [place], [place] [address] Potassium molar conc 3.5 mmol/L Normal 3.5-5.1 [facility] Comment on above: Performed By: #### P 8 #### [facility] [address] [place] [address] Sodium molar conc 133 mmol/L Low 136-145 [facility] Comment on above: Performed By: #### P 8 #### [facility] [address] [place] [address] Comprehensive Panelon 2018 ALP enzyme act/vol 345 U/L High 46-116 [facility] Comment on above: Performed By: #### P 14 #### [facility] [address] [place], [place] [address] Bilirubin mass conc 1.3 mg/dL High 0.2-1.0 [facility] Comment on above: Performed By: #### P 14 #### [facility] [address] [place], [place] [address] Protein mass conc 8.5 g/dL High 6.4-8.2 [facility] Comment on above: Performed By: #### P 14 #### [facility] [address] [place], [place] [address] ALT enzyme act/vol 40 U/L Normal 12-78 [facility] Comment on above: Performed By: #### P 14 #### [facility] [address] [place], [place] [address] Creatinine mass conc 0.45 mg/dL Low 0.51-0.95 [facility] Comment on above: Performed By: #### P 14 #### [facility] [address] [place], [place] [address] AST enzyme act/vol 92 U/L High 9-37 [facility] Comment on above: Performed By: #### P 14 #### [facility] [address] [place], [place] [address] Albumin mass conc 2.3 g/dL Low 3.4-5.0 [facility] Comment on above: Performed By: #### P 14 #### [facility] [address] [place], [place] [address] Anion gap molar conc 15 mmol/L Normal 8-16 [facility] Comment on above: Performed By: #### P 14 #### [facility] [address] [place], [place] [address] CO2 molar conc 23 mmol/L Normal 21-32 [facility] Comment on above: Performed By: #### P 14 #### [facility] [address] [place], [place] [address] Urea nitrogen mass conc 4 mg/dL Low 7-18 [facility] Comment on above: Performed By: #### P 14 #### [facility] [address] [place] [address] Calcium mass conc 8.9 mg/dL Normal 8.5-10.1 [facility] Comment on above: Performed By: #### P 14 #### [facility] [address] [place] [address] Glucose mass conc 101 mg/dL High 70-99 [facility] Comment on above: Performed By: #### P 14 #### [facility] [address] [place] [address] Chloride molar conc 93 mmol/L Low 98-107 [facility] Comment on above: Performed By: #### P 14 #### [facility] [address] [place] [address] Potassium molar conc 3.9 mmol/L Normal 3.5-5.1 [facility] Comment on above: Performed By: #### P 14 #### [facility] [address] [place] [address] Sodium molar conc 127 mmol/L Low 136-145 [facility] Comment on above: Performed By: #### P 14 #### [facility] [address] [place] [address] Cult Bloodon 05-11-2018 Cult Blood Test performed at [facility] No growth Normal [facility] Comment on above: Performed By: #### C _BLO #### [facility] [address] [place] [address] Cult Urineon 05-11-2018 Cult Urine Test performed at [facility] ORGANISM: *Escherichia coli (ID: 1) >100,000 CFU/ml Normal [facility] Comment on above: Performed By: #### C BCD1 #### [facility] [address] [place] [address] Hemogramon 05-11-2018 Erythrocyte distribution width Ratio (RBC) 13.6 % Normal 11.7-14.4 [facility] Comment on above: Performed By: #### C BC1 #### [facility] [address] [place] [address] Hematocrit Volume Fraction (Bld) 29.0 % Low 34.1-44.9 [facility] Comment on above: Performed By: #### C BC1 #### [facility] [address] [place] [address] Hemoglobin mass conc (Bld) 9.7 g/dL Low 11.2-15.7 [facility] Comment on above: Performed By: #### C BC1 #### [facility] [address] [place] [address] MCH Entitic mass (RBC) 34.9 pg High 25.6-32.2 [facility] Comment on above: Performed By: #### C BC1 #### [facility] [address] [place] [address] MCHC mass conc (RBC) 33.4 % Normal 31.6-34.8 [facility] Comment on above: Performed By: #### C BC1 #### [facility] [address] [place] [address] MCV Entitic volume (RBC) 104.3 fL High 79.4-94.8 [facility] Comment on above: Performed By: #### C BC1 #### [facility] [address] [place] [address] Platelet mean volume Entitic volume (Bld) 8.4 fL Low 9.4-12.3 [facility] Comment on above: Performed By: #### C BC1 #### [facility] [address] [place] [address] Platelets #/vol (Bld) 362 thou/cmm Normal 182-369 [facility] Comment on above: Performed By: #### C BC1 #### [facility] [address] [place] [address] RBC #/vol (Bld) 2.78 mil/cmm Low 3.93-5.22 [facility] Comment on above: Performed By: #### C BC1 #### [facility] [address] [place] [address] RDW SD 52.4 fl High 36.4-46.3 [facility] Comment on above: Performed By: #### C BC1 #### [place] [address] WBC #/vol (Bld) 11.39 thou/cmm High 3.98-10.04 [facility] Comment on above: Performed By: #### C BC1 #### [facility] [address] [place] [address] Hemogram/Diffon 05-11-2018 Abs Immature Grans 0.13 thou/cmm High 0.00-0.05 [facility] Comment on above: Performed By: #### C BCD1 #### [facility] [address] [place] [address] Abs. Baso 0.09 thou/cmm High 0.01-0.08 [facility] Comment on above: Result Comment: Smea r scanned; tech agrees with automated differential Performed By: #### C BCD1 #### [place] [address] Abs. [place] 1.38 thou/cmm High 0.27-0.70 [facility] Comment on above: Performed By: #### C BCD1 #### [facility] [address] [place] [address] Abs. Neut (ANC) 10.28 thou/cmm High 1.56-6.13 [facility] Comment on above: Performed By: #### C BCD1 #### [place] [address] Basophils/100 WBC (Bld) 0.6 % Normal [facility] Comment on above: Performed By: #### C BCD1 #### [facility] [address] [place] [address] Eosinophils #/vol (Bld) 0.01 thou/cmm Normal 0.00-0.31 [facility] Comment on above: Performed By: #### C BCD1 #### [place] [address] Eosinophils/100 WBC (Bld) 0.1 % Normal [facility] Comment on above: Performed By: #### C BCD1 #### [place] [address] Immature Grans 0.90 % Normal [facility] Comment on above: Performed By: #### C BCD1 #### [facility] [address] [place] [address] Lymphocytes #/vol (Bld) 2.51 thou/cmm Normal 1.18-3.74 [facility] Comment on above: Performed By: #### C BCD1 #### [facility] [address] [place], [place] [address] Lymphocytes/100 WBC (Bld) 17.4 % Normal [facility] Comment on above: Performed By: #### C BCD1 #### [facility] [address] [place] [address] Monocytes/100 WBC (Bld) 9.6 % Normal [facility] Comment on above: Performed By: #### C BCD1 #### [facility] [address] [place] [address] Seg Neutrophil 71.4 % Normal [facility] Comment on above: Performed By: #### C BCD1 #### [facility] [address] [place] [address] Erythrocyte distribution width Ratio (RBC) 13.5 % Normal 11.7-14.4 [facility] Comment on above: Performed By: #### C BCD1 #### [facility] [address] [place] [address] Hematocrit Volume Fraction (Bld) 37.7 % Normal 34.1-44.9 [facility] Comment on above: Performed By: #### C BCD1 #### [facility] [address] [place] [address] Hemoglobin mass conc (Bld) 12.9 g/dL Normal 11.2-15.7 [facility] Comment on above: Performed By: #### C BCD1 #### [facility] [address] [place] [address] MCH Entitic mass (RBC) 35.6 pg High 25.6-32.2 [facility] Comment on above: Performed By: #### C BCD1 #### [facility] [address] [place] [address] MCHC mass conc (RBC) 34.2 % Normal 31.6-34.8 [facility] Comment on above: Performed By: #### C BCD1 #### [facility] [address] [place] [address] MCV Entitic volume (RBC) 104.1 fL High 79.4-94.8 [facility] Comment on above: Performed By: #### C BCD1 #### [facility] [address] [place] [address] Platelet mean volume Entitic volume (Bld) 8.7 fL Low 9.4-12.3 [facility] Comment on above: Performed By: #### C BCD1 #### [facility] [address] [place] [address] Platelets #/vol (Bld) 427 thou/cmm High 182-369 [facility] Comment on above: Performed By: #### C BCD1 #### [place] [address] RBC #/vol (Bld) 3.62 mil/cmm Low 3.93-5.22 [facility] Comment on above: Performed By: #### C BCD1 #### [facility] [address] [place] [address] RDW SD 51.8 fl High 36.4-46.3 [facility] Comment on above: Performed By: #### C BCD1 #### [facility] [address] [place] [address] WBC #/vol (Bld) 14.40 thou/cmm High 3.98-10.04 [facility] Comment on above: Performed By: #### C BCD1 #### [facility] [address] [place] [address] Lactic Acidon 05-11-2018 Lactate molar conc 2.1 mmol/L Normal 0.5-2.2 [facility] Comment on above: Performed By: #### E DLAG #### [place] [address] N-terminal Pro-BNPon 019 Natriuretic peptide B mass conc (Bld) 420 pg/mL Normal [facility] Comment on above: Result Comment: Acut e CHF Rule-in <50 yrs old >= 450 pg/ml >50 yrs old >= 900 pg/ml Abnormal Pro-BNP All patients >=300 pg/ml Performed By: #### P BNP #### [facility] [address] [place] [address] Urinalysis Routineon 019 Granular Cast 0-1 Abnormal None [facility] Comment on above: Performed By: #### U RIN2 #### [place] [address] Hyaline Cast 0.0-2 Normal 0.0-1.0 [facility] Comment on above: Performed By: #### U RIN2 #### [place] [address] Mucus Threads MODERATE Abnormal None [facility] Comment on above: Performed By: #### U RIN2 #### [place] [address] RBC LM.HPF #/area (Urine sed) 36.0-50 High 0.0-5.0 [facility] Comment on above: Performed By: #### U RIN2 #### [place] [address] Yeast Urine FEW Abnormal None [facility] Comment on above: Performed By: #### U RIN2 #### [place] [address] Bacteria LM.HPF #/area (Urine sed) 4+ Abnormal None [facility] Comment on above: Performed By: #### U RIN2 #### [place] [address] Ep Cells Urine 22.2 /hpf High 0.0-5.0 [facility] Comment on above: Performed By: #### U RIN2 #### [place] [address] WBC, Urine 327.2 /hpf High 0.0-5.0 [facility] Comment on above: Performed By: #### U RIN2 #### [place] [address] Appearance Nom (U) TURBID Normal [facility] Comment on above: Performed By: #### U RIN2 #### [facility] [address] [place] [address] Bilirubin Urine see below Abnormal Negative [facility] Comment on above: Result Comment: Edwarddominga cted (Unable to confirm). Performed By: #### U RIN2 #### [facility] [address] [place] [address] Color Nom (U) ORANGE Normal [facility] Comment on above: Performed By: #### U RIN2 #### [facility] [address] [place] [address] Glucose Ql (U) Negative Normal Negative [facility] Comment on above: Performed By: #### U RIN2 #### [place] [address] Hemoglobin,Urine LARGE Abnormal Negative [facility] Comment on above: Performed By: #### U RIN2 #### [place] [address] Ketone Urine TRACE Abnormal Negative [facility] Comment on above: Performed By: #### U RIN2 #### [place] [address] Leukocytes Esterase LARGE Abnormal Negative [facility] Comment on above: Performed By: #### U RIN2 #### [place] [address] Nitrites Urine Positive Abnormal Negative [facility] Comment on above: Performed By: #### U RIN2 #### [facility] [address] [place] [address] pH (U) 5.5 [pH] Normal 5.0-8.0 [facility] Comment on above: Performed By: #### U RIN2 #### [place] [address] Protein mass conc (U) 30 mg/dL Abnormal Negative [facility] Comment on above: Performed By: #### U RIN2 #### [place] [address] Specific [place], Ur 1.017 Normal 1.005-1.030 [facility] Comment on above: Performed By: #### U RIN2 #### [facility] [address] [place] [address] Urobilinogen,Ur 1.0 EU/dL Normal 0.0-1.0 [facility] Comment on above: Performed By: #### U RIN2 #### [facility] [address] [place] [address] Cult and Smr Aerobicon 05-10 Cult and Smr Aerobic Test performed at [facility] Moderate Mixed binta including both gram negative [...] will be held for 5 days. Normal [facility] Comment on above: Performed By: #### C _AER #### [place] [address] Add on test from [facility]on 03-06 Add on test from [facility] Accepted Normal [facility] Comment on above: Result Comment: Spec imen available & acceptable for analysis. Performed By: #### H EMDF, BMP3, ETOH4, TROPN, CK3, TSH5 #### [place] [id number] Add on test from [facility] Accepted Normal [facility] Comment on above: Result Comment: Spec imen available & acceptable for analysis. Performed By: #### H EMDF, BMP3, ETOH4, TROPN, CK3, TSH5 #### [place] [id number] Add on test from [facility] Accepted Normal [facility] Comment on above: Result Comment: Spec imen available & acceptable for analysis. Performed By: #### H EMDF, BMP3, ETOH4, TROPN, CK3, TSH5 #### [address] Basic Metabolic Panelon 02-23 Anion gap molar conc 5 Normal [facility] Comment on above: Performed By: #### H EMDF, BMP3, ETOH4, TROPN, CK3, TSH5 #### [address] Calcium mass conc 7.5 mg/dL Low 8.4-10.[address] [facility] Comment on above: Performed By: #### H EMDF, BMP3, ETOH4, TROPN, CK3, TSH5 #### [address] CO2 molar conc 21 mmol/L Low 22-30 [facility] Comment on above: Performed By: #### H EMDF, BMP3, ETOH4, TROPN, CK3, TSH5 #### [address] Glucose mass conc 106 mg/dL High 70-[address] [facility] Comment on above: Performed By: #### H EMDF, BMP3, ETOH4, TROPN, CK3, TSH5 #### [address] Urea nitrogen mass conc 4 mg/dL Low 7-20 [facility] Comment on above: Performed By: #### H EMDF, BMP3, ETOH4, TROPN, CK3, TSH5 #### [place] [address] [place] [place], [place] Creatinine mass conc 0.46 mg/dL Low 0.52-1.25 [facility] Comment on above: Performed By: #### H EMDF, BMP3, ETOH4, TROPN, CK3, TSH5 #### [address] GFR/1.73 sq M predicted among blacks MDRD vol rate/area (S/P/Bld) mL/min/{1.73_m2} Normal >60 [facility] Comment on above: Performed By: #### H EMDF, BMP3, ETOH4, TROPN, CK3, TSH5 #### [address] GFR/1.73 sq M predicted among non-blacks MDRD vol rate/area (S/P/Bld) mL/min/{1.73_m2} Normal >60 [facility] Comment on above: Result Comment: Sour ce- MDRD equation with creatinine calibration to IDMS(NKDEP) eGFR not recommended for drug dose adjustment Performed By: #### H EMDF, BMP3, ETOH4, TROPN, CK3, TSH5 #### [address] Potassium molar conc 4.0 mmol/L Normal 3.5-5.1 [facility] Comment on above: Performed By: #### H EMDF, BMP3, ETOH4, TROPN, CK3, TSH5 #### [address] Sodium molar conc 134 mmol/L Low 135-145 [facility] Comment on above: Performed By: #### H EMDF, BMP3, ETOH4, TROPN, CK3, TSH5 #### [address] Chloride molar conc 107 mmol/L Normal 98-107 [facility] Comment on above: Performed By: #### H EMDF, BMP3, ETOH4, TROPN, CK3, TSH5 #### [address] Anion gap molar conc 8 Normal [facility] Comment on above: Performed By: #### H EMDF, BMP3, ETOH4, TROPN, CK3, TSH5 #### [address] Calcium mass conc 8.4 mg/dL Normal 8.4-10.4 [facility] Comment on above: Performed By: #### H EMDF, BMP3, ETOH4, TROPN, CK3, TSH5 #### [address] [place] [address] CO2 molar conc 23 mmol/L Normal 22-30 [facility] Comment on above: Performed By: #### H EMDF, BMP3, ETOH4, TROPN, CK3, TSH5 #### [address] [place] [address] Glucose mass conc 93 mg/dL Normal 70-[address] [facility] Comment on above: Performed By: #### H EMDF, BMP3, ETOH4, TROPN, CK3, TSH5 #### [place] [address] [place] [address] Urea nitrogen mass conc 5 mg/dL Low 7-20 [facility] Comment on above: Performed By: #### H EMDF, BMP3, ETOH4, TROPN, CK3, TSH5 #### [address] [address] Creatinine mass conc 0.59 mg/dL Normal 0.52-1.25 [facility] Comment on above: Performed By: #### H EMDF, BMP3, ETOH4, TROPN, CK3, TSH5 #### [place] [address] [place] [address] GFR/1.73 sq M predicted among blacks MDRD vol rate/area (S/P/Bld) mL/min/{1.73_m2} Normal >60 [facility] Comment on above: Performed By: #### H EMDF, BMP3, ETOH4, TROPN, CK3, TSH5 #### [place] [address] [place] [address] GFR/1.73 sq M predicted among non-blacks MDRD vol rate/area (S/P/Bld) mL/min/{1.73_m2} Normal >60 [facility] Comment on above: Result Comment: Sour ce- MDRD equation with creatinine calibration to IDMS(NKDEP) eGFR not recommended for drug dose adjustment Performed By: #### H EMDF, BMP3, ETOH4, TROPN, CK3, TSH5 #### [place] [address] [place] [address] Chloride molar conc 100 mmol/L Normal 98-107 [facility] Comment on above: Performed By: #### H EMDF, BMP3, ETOH4, TROPN, CK3, TSH5 #### [address] [place] [address] Potassium molar conc 3.8 mmol/L Normal 3.5-5.1 [facility] Comment on above: Performed By: #### H EMDF, BMP3, ETOH4, TROPN, CK3, TSH5 #### [place] [address] [place] [address] Sodium molar conc 130 mmol/L Low 135-145 [facility] Comment on above: Performed By: #### H EMDF, BMP3, ETOH4, TROPN, CK3, TSH5 #### [address] [address] CKon 03-06-2018 CK enzyme act/vol 156 U/L Normal 30-170 [facility] Comment on above: Performed By: #### H EMDF, BMP3, ETOH4, TROPN, CK3, TSH5 #### [address] [address] CR Chest Portableon 03-06-19 19 CR Chest Portable Patient Name: CLARIBEL STOLL Diagnostic Radiology Exam Date/Time 03/05/2018 23:28:11 EST Exam CR Chest Portable Ordering Physician LINDA TEMPLE STEPHEN H Accession Number [id number] CPT4 Codes 32887 () Reason For Exam chest pain Report [...] Transcribed Date and Time: 03/05/2018 11:44 Normal [facility] CR Elbow 2 Views Lefton 02-23 CR Elbow 2 Views Left Patient Name: CLARIBEL STOLL Diagnostic Radiology Exam Date/Time 03/05/2018 23:28:11 EST Exam CR Elbow 2 Views Left Ordering Physician LINDA TEMPLE STEPHEN H Accession Number [id number] CPT4 Codes 57136 () Reason For Exam Fall Report LEFT [...] R Transcribed Date and Time: 03/05/2018 11:42 Normal [facility] CR Humerus 2+ Views Lefton 03-06-2018 CR Humerus 2+ Views Left Patient Name: CLARIBEL STOLL Diagnostic Radiology Exam Date/Time 03/05/2018 23:28:11 EST Exam CR Humerus 2+ Views Left Ordering Physician LINDA TEMPLE STEPHEN H Accession Number [id number] CPT4 Codes 33570 () Reason For Exam Fall Report LEFT [...] Transcribed Date and Time: 03/05/2018 11:41 Normal [facility] CR Shoulder 2+ Views Lefton 03-06-2018 CR Shoulder 2+ Views Left Patient Name: CLARIBEL STOLL Diagnostic Radiology Exam Date/Time 03/05/2018 23:28:11 EST Exam CR Shoulder 2+ Views Left Ordering Physician LINDA TEMPLE STEPHEN H Accession Number [id number] CPT4 Codes 09016 () Reason For Exam pain Report LEFT [...] Transcribed Date and Time: 03/05/2018 11:39 Normal [facility] CT Head or Brain w/o Contras ton 03-06-2018 CT Head or Brain w/o Contrast Patient Name: CLARIBEL STOLL CT Exam Date/Time 03/05/2018 22:55:[address] Head or Brain w/o Contrast Ordering Physician LINDA TEMPLE STEPHEN H Accession Number [id number] CPT4 Codes 74251 () Reason For Exam headache or trauma [...] Transcribed Date and Time: 03/05/2018 11:13 Normal [facility] Drugs of Abuseon 03-06-2018 Opiates, Ur Positive Normal [facility] Comment on above: Performed By: #### H EMDF, BMP3, ETOH4, TROPN, CK3, TSH5 #### [facility] [address] [place] [address] Cocaine, Ur Negative Normal [facility] Comment on above: Performed By: #### H EMDF, BMP3, ETOH4, TROPN, CK3, TSH5 #### [facility] [address] [place] [address] Methadone, Ur Negative Normal [facility] Comment on above: Performed By: #### H EMDF, BMP3, ETOH4, TROPN, CK3, TSH5 #### [facility] [address] [place] [address] Phencyclidine (PCP), Ur Negative Normal [facility] [...] EMDF, BMP3, ETOH4, TROPN, CK3, TSH5 #### [place] [address] [address] [place], [place] Benzodiazepines, Ur Negative Normal [facility] [facility] Comment on above: Performed By: #### H EMDF, BMP3, ETOH4, TROPN, CK3, TSH5 #### [address] [address] [address] [place], [place] Amphetamines, Ur Negative Normal [facility] Comment on above: Performed By: #### H EMDF, BMP3, ETOH4, TROPN, CK3, TSH5 #### [address] [address] [address] [place], [place] Barbiturates, Ur Negative Normal [facility] Comment on above: Performed By: #### H EMDF, BMP3, ETOH4, TROPN, CK3, TSH5 #### [address] [address] [address] [place], [place] Oxycodone/Oxymorphine,U r Negative Normal [facility] Comment on above: Performed By: #### H EMDF, BMP3, ETOH4, TROPN, CK3, TSH5 #### [address] [address] [address] [place], [place] Ethanol Serum/Plasmaon 03-06 Ethanol-Serum/Plasma 0.064 g/dL High 0.000-0.010 [facility] Comment on above: Result Comment: NOTE : This result is for medical treatment only. Analysis performed using non-forensic procedures. Performed By: #### H EMDF, BMP3, ETOH4, TROPN, CK3, TSH5 #### [address] [address] [address] [place], [place] Hemogramon 03-06-2018 Erythrocyte distribution width Ratio (RBC) 12.0 % Normal 11.5-14.5 [facility] Comment on above: Performed By: #### H EMDF, BMP3, ETOH4, TROPN, CK3, TSH5 #### [address] Hematocrit Volume Fraction (Bld) 35.6 % Normal 35.0-47.0 [facility] Comment on above: Performed By: #### H EMDF, BMP3, ETOH4, TROPN, CK3, TSH5 #### [address] Hemoglobin mass conc (Bld) 12.2 g/dL Normal 11.7-16.0 [facility] Comment on above: Performed By: #### H EMDF, BMP3, ETOH4, TROPN, CK3, TSH5 #### [address] MCH Entitic mass (RBC) 35.3 pg High 26.0-34.0 [facility] Comment on above: Performed By: #### H EMDF, BMP3, ETOH4, TROPN, CK3, TSH5 #### [address] MCHC mass conc (RBC) 34.2 % Normal 32.0-36.0 [facility] Comment on above: Performed By: #### H EMDF, BMP3, ETOH4, TROPN, CK3, TSH5 #### [address] MCV Entitic volume (RBC) 103.1 fL High 79.0-98.0 [facility] Comment on above: Performed By: #### H EMDF, BMP3, ETOH4, TROPN, CK3, TSH5 #### [address] Platelet mean volume Entitic volume (Bld) 8.3 fL Normal 7.4-10.4 [facility] Comment on above: Performed By: #### H EMDF, BMP3, ETOH4, TROPN, CK3, TSH5 #### [address] [address] [address] [place], [place] Platelets #/vol (Bld) 254 10*3/uL Normal 140-440 [facility] Comment on above: Performed By: #### H EMDF, BMP3, ETOH4, TROPN, CK3, TSH5 #### [address] RBC #/vol (Bld) 3.45 10*6/uL Low 3.80-5.20 [facility] Comment on above: Performed By: #### H EMDF, BMP3, ETOH4, TROPN, CK3, TSH5 #### [address] WBC #/vol (Bld) 9.0 10*3/uL Normal 3.6-10.7 [facility] Comment on above: Performed By: #### H EMDF, BMP3, ETOH4, TROPN, CK3, TSH5 #### [address] Hemogram w/ Autodiffon 03-06 Abs Baso Cnt 0.1 10*3/uL Normal 0.0-0.2 [facility] Comment on above: Performed By: #### H EMDF, BMP3, ETOH4, TROPN, CK3, TSH5 #### [address] Abs Neutrophile Cnt 4.4 10*3/uL Normal 1.8-7.0 [facility] Comment on above: Performed By: #### H EMDF, BMP3, ETOH4, TROPN, CK3, TSH5 #### [address] Basophils/100 WBC (Bld) 1.0 % Normal 0.0-2.0 [facility] Comment on above: Performed By: #### H EMDF, BMP3, ETOH4, TROPN, CK3, TSH5 #### [address] Eosinophils #/vol (Bld) 0.1 10*3/uL Normal 0.0-0.5 [facility] Comment on above: Performed By: #### H EMDF, BMP3, ETOH4, TROPN, CK3, TSH5 #### [address] Eosinophils/100 WBC (Bld) 0.6 % Low 1.0-6.0 [facility] Comment on above: Performed By: #### H EMDF, BMP3, ETOH4, TROPN, CK3, TSH5 #### [address] Erythrocyte distribution width Ratio (RBC) 11.9 % Normal 11.5-14.5 [facility] Comment on above: Performed By: #### H EMDF, BMP3, ETOH4, TROPN, CK3, TSH5 #### [address] Granulocytes/100 WBC (Bld) 50.9 % Normal 40.0-80.0 [facility] Comment on above: Performed By: #### H EMDF, BMP3, ETOH4, TROPN, CK3, TSH5 #### [address] Hematocrit Volume Fraction (Bld) 35.2 % Normal 35.0-47.0 [facility] Comment on above: Performed By: #### H EMDF, BMP3, ETOH4, TROPN, CK3, TSH5 #### [address] Hemoglobin mass conc (Bld) 12.1 g/dL Normal 11.7-16.0 [facility] Comment on above: Performed By: #### H EMDF, BMP3, ETOH4, TROPN, CK3, TSH5 #### [address] Lymphocytes #/vol (Bld) 2.8 10*3/uL Normal 1.0-4.3 [facility] Comment on above: Performed By: #### H EMDF, BMP3, ETOH4, TROPN, CK3, TSH5 #### [address] Lymphocytes/100 WBC (Bld) 33.0 % Normal 20.0-40.0 [facility] Comment on above: Performed By: #### H EMDF, BMP3, ETOH4, TROPN, CK3, TSH5 #### [address] MCH Entitic mass (RBC) 34.9 pg High 26.0-34.0 [facility] Comment on above: Performed By: #### H EMDF, BMP3, ETOH4, TROPN, CK3, TSH5 #### [address] MCHC mass conc (RBC) 34.5 % Normal 32.0-36.0 [facility] Comment on above: Performed By: #### H EMDF, BMP3, ETOH4, TROPN, CK3, TSH5 #### [address] MCV Entitic volume (RBC) 101.2 fL High 79.0-98.0 [facility] Comment on above: Performed By: #### H EMDF, BMP3, ETOH4, TROPN, CK3, TSH5 #### [address] Monocytes #/vol (Bld) 1.2 10*3/uL High 0.0-0.8 [facility] Comment on above: Performed By: #### H EMDF, BMP3, ETOH4, TROPN, CK3, TSH5 #### [address] Monocytes/100 WBC (Bld) 14.5 % High 2.0-10.0 [facility] Comment on above: Performed By: #### H EMDF, BMP3, ETOH4, TROPN, CK3, TSH5 #### [address] Platelet mean volume Entitic volume (Bld) 8.4 fL Normal 7.4-10.4 [facility] Comment on above: Performed By: #### H EMDF, BMP3, ETOH4, TROPN, CK3, TSH5 #### [address] Platelets #/vol (Bld) 283 10*3/uL Normal 140-440 [facility] Comment on above: Performed By: #### H EMDF, BMP3, ETOH4, TROPN, CK3, TSH5 #### [address] RBC #/vol (Bld) 3.48 10*6/uL Low 3.80-5.20 [facility] Comment on above: Performed By: #### H EMDF, BMP3, ETOH4, TROPN, CK3, TSH5 #### [address] WBC #/vol (Bld) 8.6 10*3/uL Normal 3.6-10.7 [facility] Comment on above: Performed By: #### H EMDF, BMP3, ETOH4, TROPN, CK3, TSH5 #### [address] Hepatic Functionon 9 ALP enzyme act/vol 107 U/L Normal 38-126 [facility] Comment on above: Performed By: #### H EMDF, BMP3, ETOH4, TROPN, CK3, TSH5 #### [address] ALT enzyme act/vol 56 U/L Normal 13-69 [facility] Comment on above: Performed By: #### H EMDF, BMP3, ETOH4, TROPN, CK3, TSH5 #### [address] AST enzyme act/vol 112 U/L High 15-46 [facility] Comment on above: Performed By: #### H EMDF, BMP3, ETOH4, TROPN, CK3, TSH5 #### [address] Bilirubin mass conc 1.2 mg/dL Normal 0.2-1.3 [facility] Comment on above: Performed By: #### H EMDF, BMP3, ETOH4, TROPN, CK3, TSH5 #### [address] Protein mass conc 5.9 g/dL Low 6.3-8.2 [facility] Comment on above: Performed By: #### H EMDF, BMP3, ETOH4, TROPN, CK3, TSH5 #### [address] Bilirubin.direct mass conc 0.0 mg/dL Normal 0.0-0.3 [facility] Comment on above: Performed By: #### H EMDF, BMP3, ETOH4, TROPN, CK3, TSH5 #### [address] [address] [place], [place] Albumin mass conc 2.8 g/dL Low 3.5-5.0 [facility] Comment on above: Performed By: #### H EMDF, BMP3, ETOH4, TROPN, CK3, TSH5 #### [address] [address] [place], [place] Magnesiumon 03-06-2018 Magnesium mass conc 1.7 mg/dL Normal 1.6-2.3 [facility] Comment on above: Performed By: #### H EMDF, BMP3, ETOH4, TROPN, CK3, TSH5 #### [address] Phosphoruson 03-06-2018 Phosphate mass conc 3.0 mg/dL Normal 2.5-4.5 [facility] Comment on above: Performed By: #### H EMDF, BMP3, ETOH4, TROPN, CK3, TSH5 #### [address] Thyroid Stim. Hormoneon 02-23 Thyroid Stim. Hormone 3.756 u[IU]/mL Normal 0.465-4.68 0 [facility] Comment on above: Performed By: #### H EMDF, BMP3, ETOH4, TROPN, CK3, TSH5 #### [facility] [address], [place] Troponin Ion 03-06-2018 Troponin I.cardiac mass conc ng/mL Normal 0.000-0.034 [facility] Comment on above: Result Comment: 0.04 6 - 0.400 = Indeterminate > 0.400 = Consider Myocardial Injury Performed By: #### H EMDF, BMP3, ETOH4, TROPN, CK3, TSH5 #### [facility] [address], [place] Urinalysis,Macroon 9 Appearance Nom (U) clear Normal Clear [facility] Comment on above: Performed By: #### H EMDF, BMP3, ETOH4, TROPN, CK3, TSH5 #### [address] [address] [address] [place], [place] Bilirubin,Ur Negative Normal Negative [facility] Comment on above: Performed By: #### H EMDF, BMP3, ETOH4, TROPN, CK3, TSH5 #### [address] [address] [address] [place], [place] Color Nom (U) yellow Normal Lt. Yellow [facility] Comment on above: Performed By: #### H EMDF, BMP3, ETOH4, TROPN, CK3, TSH5 #### [address] [address] [address] [place], [place] Glucose Ql (U) NORM Normal Negative [facility] Comment on above: Performed By: #### H EMDF, BMP3, ETOH4, TROPN, CK3, TSH5 #### [address] [address] [address] [place], [place] Ketone,Urine Negative Normal Negative [facility] Comment on above: Performed By: #### H EMDF, BMP3, ETOH4, TROPN, CK3, TSH5 #### [address] [address] [address] [place], [place] Nitrite Ql (U) Positive Normal Negative [facility] Comment on above: Performed By: #### H EMDF, BMP3, ETOH4, TROPN, CK3, TSH5 #### [address] Occult Blood,Ur Negative Normal Negative [facility] Comment on above: Performed By: #### H EMDF, BMP3, ETOH4, TROPN, CK3, TSH5 #### [address] pH (U) 5.0 Normal 5.0-8.0 [facility] Comment on above: Performed By: #### H EMDF, BMP3, ETOH4, TROPN, CK3, TSH5 #### [address] Protein mass conc (U) Negative Normal Negative [facility] Comment on above: Performed By: #### H EMDF, BMP3, ETOH4, TROPN, CK3, TSH5 #### [address] Specific [place],Urine 1.005 Normal 1.005-1.030 [facility] Comment on above: Performed By: #### H EMDF, BMP3, ETOH4, TROPN, CK3, TSH5 #### [address] Urobilinogen Qn (U) NORM Normal 0-1 [facility] Comment on above: Performed By: #### H EMDF, BMP3, ETOH4, TROPN, CK3, TSH5 #### [address] WBC #/vol (Bld) Negative Normal Negative [facility] Comment on above: Performed By: #### H EMDF, BMP3, ETOH4, TROPN, CK3, TSH5 #### [address] Urinalysis,Microscopicon Bacteria LM.HPF #/area (Urine sed) Moderate (6-50) Normal Negative [facility] Comment on above: Performed By: #### H EMDF, BMP3, ETOH4, TROPN, CK3, TSH5 #### [address] Epithelial cells LM.HPF #/area (Urine sed) 0 - 2 Normal 3-5 [facility] Comment on above: Performed By: #### H EMDF, BMP3, ETOH4, TROPN, CK3, TSH5 #### [address] Mucous Threads Few Normal Negative [facility] Comment on above: Performed By: #### H EMDF, BMP3, ETOH4, TROPN, CK3, TSH5 #### [address] [address] [place], [place] RBC LM.HPF #/area (Urine sed) 0 - 2 Normal 0-2 [facility] Comment on above: Performed By: #### H EMDF, BMP3, ETOH4, TROPN, CK3, TSH5 #### [address] Volume,Urine 7ml Normal [facility] Comment on above: Performed By: #### H EMDF, BMP3, ETOH4, TROPN, CK3, TSH5 #### [address] WBC LM.HPF #/area (Urine sed) 0 - 2 Normal 0-5 [facility] Comment on above: Performed By: #### H EMDF, BMP3, ETOH4, TROPN, CK3, TSH5 #### [address] ED Provider Noteon 9 Protein mass conc I independently performed a history and physical on [facility]. All diagnostic, treatment, and disposition decisions were [...] rhythm at a tachycardic rate of 106 bpm.LA interval normal. QRS complex narrow. QTC normal. No ST segment elevations or depressions. No abnormal T-wave inversions. Good R-wave progression through precordial leads. Interpretation of this EKG myself in the absence of a radio time sales supervisor is sinus tachycardia. Interpretation of Diagnostic Laboratory [...] provider for clarification. Tank Gabriel MD 03/06/18 6829 Addendum to note: The patient continued to [...] blood pressure. Tank Gabriel MD 03/06/18 0407 [facility] Patient: Claribel Stoll : 1955 [...] Pt denies hitting head. AOx3 ? Fall MODOC Claribel Stoll is a 62 y.o. female [...] # 2.8 1.0 - 4.3 10*3/uL Absolute [place] # 1.2 (H) 0.0 - 0.8 10*3/uL [...] eGFR >60.0 >60 mL/min EGFR IF NonAfrican Citizen Of [place] >60.0 >60 mL/min Calcium 8.4 8.4 - [...] Physician LINDA TEMPLE STEPHEN H Accession Number [id number] CPT4 Codes 70622 () Reason For Exam Fall Report LEFT [...] Physician LINDA TEMPLE STEPHEN H Accession Number [id number] CPT4 Codes 47946 () Reason For Exam Fall Report LEFT [...] Physician LINDA TEMPLE STEPHEN H Accession Number [id number] CPT4 Codes 15909 () Reason For Exam headache or trauma [...] Exam CR Chest Portable Ordering Physician LINDA ETMPLE STEPHEN H Accession Number [id number] CPT4 Codes 52056 () Reason For Exam chest pain Report [...] Physician LINDA TEMPLE, TED Mcdonnell Accession Number [id number] CPT4 Codes 23170 () Reason For Exam pain Report LEFT [...] Department Physician in the absence of a radio time sales supervisor.?Please see their note for interpretation of EKG. [...] by UNA BLANKENSHIP on 03/06/18 at 0042 ETD TEMPLE Final Impression 1. Closed fracture of proximal end of left humerus, unspecified fracture morphology, initial encounter 2. Fall, initial encounter 3. Left arm pain DISPOSITION Admit (Please note that portions of this note may have been completed with a voice recognition program. Efforts were made to edit the dictations but occasionally words aremis-transcribed.) Ted Temple APRN - HOST/HOSTESS [employer] Ted Temple APRN - OWEN 03/06/18 0230 Normal [facility] Culture, urine Bacteria identified Cx Nom (U) GNR lactose qa developer [facility] Work Phone: Bacteria identified Cx Nom (U) Negative [facility] Work Phone: XR HIP 2V AP/LAT LEFT ([place] ,[place]) [facility] Vital Signs Date Time Vital Sign Value Performing Clinician Faci lity 01-26-2023 08:26-0500 Body temperature 98.6 [degF] Dell Burden MD Work Phone: [facility] 01-26-2023 08:26-0500 Diastolic blood pressure 59 mm[Hg] Dell Burden MD Work Phone: [facility] 01-26-2023 08:26-0500 Heart rate 79 /min Dell Burden MD Work Phone: [facility] 01-26-2023 08:26-0500 Respiratory rate 16 /min Dell Burden MD Work Phone: [facility] 01-26-2023 08:26-0500 SaO2% (BldA) [Mass fraction] 93 % Dell Burden MD Work Phone: [facility] 01-26-2023 08:26-0500 Systolic blood pressure 105 mm[Hg] Dell Burden MD Work Phone: [facility] 01-27-2022 10:48-0500 Body height 165.1 cm Yasmany Roman MD Work Phone: [facility] 01-27-2022 10:48-0500 Body weight 68.04 kg Yasmany Roman MD Work Phone: [facility] 01-27-2022 10:48-0500 Respiratory rate 18 /min Yasmany Roman MD Work Phone: [facility] Encounters Encounter Date Encounter Type Care Provider Facility Start: 10-31-2024 ambulatory Morris BEAL Facil ity:[facility] Start: 09-29-2024 ambulatory Morris BEAL Facil ity:[facility] Start: 09-26-2024 ambulatory Morris BEAL Facil ity:[facility] Start: 04-04-2024 ambulatory Morris BEAL Facil ity:[facility] Start: 03-28-2024 ambulatory Morris BEAL Facil ity:[facility] Start: 03-24-2024 ambulatory Morris BEAL Facil ity:[facility] Start: 02-19-2024 End: 02-19-2024 ambulatory Morris BEAL Facility:[facility] Start: 01-06-2024 End: 01-06-2024 ambulatory Morris BEAL Facility:[facility] Start: 11-30-2023 End: 11-30-2023 ambulatory Morris BEAL Facility:[facility] Start: 05-22-2023 End: 05-22-2023 ambulatory [facility] Work Phone: Start: 05-22-2023 End: 05-22-2023 Departed Referred [facility] [address] Start: 05-15-2023 Registered [facility] [address] Start: 05-14-2023 End: 05-14-2023 ambulatory [facility] Work Phone: Start: 05-14-2023 End: 05-14-2023 Departed [facility]erred [facility] [address] Start: 05-06-2023 End: 05-06-2023 ambulatory [facility] Work Phone: Start: 05-06-2023 End: 05-06-2023 Departed [facility]erred [facility] [address] Start: 03-18-2023 End: 03-18-2023 Departed Referred [facility] [address] Start: 03-02-2023 End: 03-02-2023 ambulatory [facility] Work Phone: Start: 03-02-2023 End: 03-02-2023 Departed Referred [facility] [address] Start: 03-02-2023 Registered [facility] [address] Start: 02-20-2023 End: 02-20-2023 ambulatory [facility] Work Phone: Start: 02-20-2023 End: 02-20-2023 Departed Referred [facility] [address] Start: 02-20-2023 Registered Referred [facility] - [address] Start: 02-13-2023 End: 02-13-2023 ambulatory [facility] Work Phone: Start: 02-13-2023 End: 02-13-2023 Departed Referred [facility] [address] Start: 01-30-2023 End: 01-30-2023 Departed Referred [facility] [address] Start: 01-30-2023 Registered [facility] [address] Start: 01-24-2023 End: 01-26-2023 Evaluation and management of inpatient [facility] Start: 01-24-2023 End: 01-26-2023 Evaluation and management of inpatient Dell Burden MD Work Phone: [facility] PCU H6 Comment on above: Closed fracture of r ight hip, initial encounter (HCC) (Primary Dx); Hypoxia; Left arm pain; Anxiety; Dementia, unspecified dementia severity, unspecified dementia type, unspecified whether behavioral, psychotic, or mood disturbance or anxiety (HCC) Start: 01-23-2023 End: 01-23-2023 ambulatory [facility] Work Phone: Start: 01-23-2023 End: 01-23-2023 Departed Referred [facility] - [address] Start: 12-04-2022 End: 12-04-2022 [facility] Work Phone: Start: 12-04-2022 End: 12-04-2022 Departed Referred [facility] [address] Start: 12-01-2022 End: 12-01-2022 Departed Referred [facility] [address] Start: 01-27-2022 End: 01-27-2022 ambulatory YASMANY ROMAN Facility:[facility] Start: 01-27-2022 End: 01-27-2022 Patient encounter procedure Yasmany Roman MD Work Phone: [facility] Comment on above: Closed subcapital fr acture of left femur with routine healing, subsequent encounter (Primary Dx) Start: 01-10-2022 End: 01-10-2022 ambulatory [facility] Work Phone: Start: 01-10-2022 End: 01-10-2022 Departed Referred [facility] [address] Start: 12-28-2021 Registered Referred [facility] - [address] Start: 12-13-2021 End: 12-24-2021 Evaluation and management of inpatient YASMANY ROMAN Facility:[facility] Start: 08-06-2021 End: 08-06-2021 Departed Referred [facility] [address] Start: 07-04-2021 End: 07-04-2021 Departed Referred [facility] [address] Start: 05-31-2021 End: 05-31-2021 Departed Referred [facility] [address] Start: 04-23-2021 End: 04-23-2021 Departed Referred [facility] [address] Start: 05-10-2018 End: 05-19-2018 Evaluation and management of inpatient ARUN MCLAUGHLIN Facility:[facility] Start: 04-06-2018 Patient encounter procedure CLAU SWARTZGreg [facility] Start: 03-31-2018 Patient encounter procedure UNKNOWN PROVIDER [facility] Start: 03-06-2018 Patient encounter procedure UNKNOWN PROVIDER [facility] Procedures Date Procedure Procedure Detail Performing [...] on above: Performed By: #### L [id number] ####Embedded Case Manager: ASHER HAY ([phone])[facility] ([facility])[address] [place] [address] [facility] Start: 01-24-2023 ABO and Rh group [Ty [...] Speci men Type: BLOOD SPECIMEN Ordering Facility: [facility] Address: [address] [place] [address] Performed By: #### T SCR #### [facility] CLIA [id number] [id number] [facility] Start: 04-23-2021 Urine culture Urine culture Plan of Treatment Date Care Activity Detail Author Start: 12-24-2024 DIABETES SCREEN DIABETES SCREEN [facility] Start: 01-25-2024 Thyroid stimulating hormone measurement TSH Level [facility] Start: 10-24-2022 COVID-19 Vaccine ( season) COVID-19 Vaccine ( season) [facility] Start: 10-24-2022 Influenza vaccination Influenza Vaccine (#1) [facility] Start: 10-24-2021 Influenza vaccination INFLUENZA (#1) [facility] Start: 04-10-2021 COVID-19 VACCINE (3 - Booster for Pfizer series) COVID-19 VACCINE (3 - Booster for Pfizer series) [facility] Start: 02-23-2021 ADVANCE DIRECTIVE DISCUSSION ADVANCE DIRECTIVE DISCUSSION [facility] Start: 09-26-2019 BONE DENSITY BONE DENSITY [facility] Start: 09-26-2019 Pneumococcal Vaccine: 65+ Years (1 - PCV) Pneumococcal Vaccine: 65+ Years (1 - PCV) [facility] Start: 09-26-2019 PNEUMOCOCCAL: 65+ (1 - PCV) PNEUMOCOCCAL: 65+ (1 - PCV) [facility] Start: 2014 RSV Immunization aged 60 or older (1 - 1-dose 60+ series) RSV Immunization aged 60 or older (1 - 1-dose 60+ series) [facility] Start: 2004 SHINGRIX VACCINE (1 of 2) SHINGRIX VACCINE (1 of 2) [facility] Start: 2004 Zoster Vaccines (1 of 2) Zoster Vaccines (1 of 2) [facility] Start: 09-26-1999 COLOGUARD (FIT-DNA) COLOGUARD (FIT-DNA) [facility] Start: 09-26-1999 Colonoscopy COLONOSCOPY [facility] Start: 09-26-1999 COLORECTAL CANCER SCREENING COLORECTAL CANCER SCREENING [facility] Start: 09-26-[address] COLONOGRAPHY [facility] Start: 09-26-1999 FECAL OCCULT BLOOD FECAL OCCULT BLOOD [facility] Start: 09-26-1999 LIPID SCREEN LIPID SCREEN [facility] Start: 09-26-1999 SIGMOIDOSCOPY SIGMOIDOSCOPY [facility] Start: 1994 Mammography MAMMOGRAM [facility] Start: 1994 Screening for malignant neoplasm of breast Mammogram [facility] Start: 1973 DTaP/Tdap/Td Vaccines (1 - Tdap) DTaP/Tdap/Td Vaccines (1 - Tdap) [facility] Start: 1973 Urine microalbumin profile DTAP,TDAP,TD (1 - Tdap) [facility] Start: 1972 Diabetes mellitus screening Diabetes Screening [facility] Start: 1972 HEPATITIS C SCREENING HEPATITIS C SCREENING [facility] Start: 1972 Hepatitis C screening Hepatitis C Screening [facility] Start: 1966 Depression Screening Depression Screening [facility] Start: 1954 Medicare Advantage Annual Wellness Visit (AWV) Medicare Advantage Annual Wellness Visit (AWV) [facility] Start: 1954 Screening for malignant neoplasm of colon [facility] Start: 1954 Screening for osteoporosis Bone Density Scan [facility] ECG 12 lead ECG 12 lead CV E CG STAT 01/26/2023 9:30 AM EST [facility] Work Phone: Payers Date Payer Category Payer Self-pay [id number] 2020 Medicaid [id number] 2020 Medicaid [employer] [employer] [place] [employer] [id number] 2020-Present [phone] [address] [place] [address] Medicaid [id number] 2020 Medicare [employer] MEDICARE [facility] MEDICARE [id number] 2020-Present [address] [place] [address] Medicare O [id number] 2020 Unknown [id number] 2020 Unknown [facility] HMO SNP [id number] 2020-Present [phone] [address] [place] [address] HMO [id number] 1954 Unknown [id number]. 668 1954 Unknown [id number] [id number]. 668 1954 Unknown [id number]. 8 1954 Unknown [id number] 2.16.840.1.369128.3.579.2. 278 Medicaid [id number] Medicare [id number] Private Health Insurance Unknown [id number] [id number]. 462 Unknown [id number] 2.16.840.1.763013.3.579.2. 462 Unknown [id number] 2.16.840.1.845682.3.579.2. 462 Unknown [id number] 2.16.840.1.661273.3.579.2. 462 Unknown [id number] 2.16.840.1.520238.3.579.2. 462 Unknown [id number] 2.16.840.1.612836.3.579.2. 462 Unknown [id number] 2.16.840.1.845468.3.579.2. 462 Unknown [id number] 2.16.840.1.067339.3.579.2. 462 Unknown [id number]. 462 Social History Date Type Detail Facility Tobacco smoking stat us NHIS Unknown if ever smoked [facility] Work Phone: Start: 1955 Sex Assigned At Female [facility] Start: 01-27-2022 Tobacco smoking status NHIS Ex-smoker [facility] History of tobacco use Current smoker [facility] Start: 04-20-2018 End: 01-27-2022 Alcohol intake Current drinker of alcohol (finding) [facility] Start: 05-10-2018 Alcohol Comment occasional [facility] Start: 1955 Sex Assigned At Not on file [facility] Start: 01-17-2022 End: 01-27-2022 Exposure to SARS-CoV-2 (event) Not sure [facility] Start: 01-24-2023 History of Social function [facility] Start: 01-24-2023 Alcohol Use Disorder Identification Test - Consumption [AUDIT-C] [facility] How often to you hav e a drink containing alcohol? Never [facility] How many standard dr inks containing alcohol do you have on a typical day? Patient does not drink [facility] Medical Equipment Procedure Code Equipment Code Equipment Origin al Text Equipment Identifier Dates Sleeve Unitrax + 0mm C Taper Centering Hip Femur - [id number] Start: 12-14-2021 Head Unitrax 44m m Unipolar Modular [place] V40 Stem Hip Femoral - [id number] Start: 12-14-2021 Cement Bone Simp sebastian P Full - [id number] Start: 01-25-2023 Conquest Fx Femo ral Component [id number] Start: 01-25-2023 Sleeve Fem Tndm -3mm 02/05 Hip - [id number] Start: 01-25-2023 Clinical Notes 12-13-2021 to 01-26-2023 Care Coordination - Nyla Haider RN - 01/26/2023 3:14 PM ESTCare Coordination - Nyla Haider RN - 01/26/2023 3:14 PM ESTCare Coordination - Nyla Haider RN - 01/26/2023 3:14 PM EST Note Date & Type Note Facility 01-26-2023 Note Formatting of this n ote might be different from the original. RN ORTHOPEDIC tasked to send discharge paperwork to [facility]. [facility] 01-26-2023 Note Formatting of this n ote might be different from the original. RN ORTHOPEDIC tasked to send discharge paperwork to [facility]. [facility] 01-26-2023 Miscellaneous Notes RN ORTHOPEDIC tasked to send discharge paperwork to [facility]. Problem: Knowledge Deficit Goal: Patient/family/caregiver [...] Completed Discharge med list transmitted to [facility] via [facility] per TCC request. Transport arranged for 1600 today to tranfer patient to [facility]. RN, TCC, , [facility], sister (Missy) were notified. Care Managment Initial Assessment Date: 01/26/2023 Patient Name: Claribel Stoll : 1955 Patient Information Source of Information: Patient Supervisor Parking Lot Name/Contact Information: Missy Whitfield - sister Cognition/Language: Confused at baseline Permission given to speak with patient installation service representative/caregiver as indicated: Confirmation of Payer with patient/family: Yes Payer Name: [employer] Medicare : Confirmation of Primary Care Physician: Confirmed PCP Name: morris Carr Seen in last 2 years?: Yes Primary Caregiver: If assistance needed, confirmed caregiver ready, willing and able to care for patient at discharge: Confirmed with: lives at [facility] Living Arrangements Current Residence: Number of Floors Number of Entry Steps: Bed/Bath Levels: Facility: [facility] Name: [facility] Plan to Return: Lives with: Other (Comment) Support Systems: Family members Activities of Daily Living Ambulation: Total Care Bathing/Dressing: Total Care Elimination/Continence/Toileting: Assistance Feeding: Assistance Who Assists with Activities of Daily Living: staff at [facility] Instrumental Activities of Daily Living [...] expects to be discharged to: back to [facility] Discharge Planning Actions: No needs identified Patient's Choice Rights and [employer] and Collaborative Relationships Disclosed as Indicated for Post-Acute Care: Interdisciplinary Team Engagement: PT/OT Social Work Referral for: Additional Information: Patient remains on H6 after fall s/p [facility] 01/25/2023. Discharge order noted. Call placed to Missy Whitfield sister of patient. Missy answered admission questions. Patient lives at [facility] and uses a w/c at baseline, staff assists with all care. [facility] patient is at intermediate level of care and is a bedhold, able to take patient back today. drop board worker aware of need to transport. TCC to assist and follow as needed. Nyla Haider RN [facility]. 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 Pt POD [...] state age correctly, states she is at [employer] . She does not recall why [...] pain Report called to floor, transport initiated [facility] [address] [address] Dept: [phone] Loc: [phone] Operative Report Patient Name: Claribel Stoll Date of : 1955 Date of Surgery: 01/25/23 Pre-operative diagnosis: Right displaced femoral neck fracture Post-operative diagnosis: Same Procedure(s): Cemented hemiarthroplasty of right hip (CPT 56148) Surgeon: Randee Oliver M.D. Automation Software Engineer(s): Jericho Maradiaga M.D. Anesthesia: General EBL: 50 [...] as well as medical complications such as AL, stroke, PE, DVT, and even . Patient [...] improving Outcome: Progressing documented in this encounter [facility] 01-26-2023 Plan of care note Problem: Knowledge [...] integrity is maintained or improved Outcome: Completed [facility] 01-26-2023 Note Formatting of this n ote might be different from the original. Discharge med list transmitted to [facility] via [facility] per [facility] request. [facility] 01-26-2023 Note Formatting of this n ote might be different from the original. Discharge med list transmitted to [facility] via [facility] per TCC request. [facility] 01-26-2023 Note Formatting of this n ote might be different from the original. Transport arranged for 1600 today to tranfer patient to [facility]. RNJJ, [place], [facility], sister (Missy) were notified. [facility] 01-26-2023 Note Formatting of this n ote might be different from the original. Transport arranged for 1600 today to tranfer patient to [facility]. RNJJ, [place], [facility], sister (Missy) were notified. [facility] 01-26-2023 Note [facility] request. Await review and response regarding ability to accept. TCC notified. [facility] 01-26-2023 Note Formatting of this n ote might be different from the original. Care Managment Initial Assessment Date: 01/26/2023 Patient Name: Claribel Stoll : 1955 Patient Information Source of Information: Patient Supervisor Parking Lot Name/Contact Information: Missy Whitfield - sister Cognition/Language: Confused at baseline Permission given to speak with patient installation service representative/caregiver as indicated: Confirmation of Payer with patient/family: Yes Payer Name: [employer] [place]: Confirmation of Primary Care Physician: Confirmed PCP Name: morris Carr Seen in last 2 years?: Yes Primary Caregiver: If assistance needed, confirmed caregiver ready, willing and able to care for patient at discharge: Confirmed with: lives at [facility] Living Arrangements Current Residence: Number of Floors Number of Entry Steps: Bed/Bath Levels: Facility: [facility] Name: [facility] Plan to Return: Lives with: Other (Comment) Support Systems: Family members Activities of Daily Living Ambulation: Total Care Bathing/Dressing: Total Care Elimination/Continence/Toileting: Assistance Feeding: Assistance Who Assists with Activities of Daily Living: staff at [facility] Instrumental Activities of Daily Living [...] expects to be discharged to: back to [facility] Discharge Planning Actions: No needs identified Patient's Choice Rights and [employer] and Collaborative Relationships Disclosed as Indicated for Post-Acute Care: Interdisciplinary Team Engagement: PT/OT Social Work Referral for: Additional Information: Patient remains on H6 after fall s/p [facility] 01/25/2023. Discharge order noted. Call placed to Missy Whitfield sister of patientJimy Louis answered admission questions. Patient lives at [facility] and uses a w/c at baseline, staff assists with all care. [facility] patient is at intermediate level of care and is a bedhold, able to take patient back today. drop board worker aware of need to transport. TCC to assist and follow as needed. Nyla Haider RN [facility] 01-26-2023 Note Formatting of this n ote might be different from the original. Care Managment Initial Assessment Date: 01/26/2023 Patient Name: Claribel Stoll : 1955 Patient Information Source of Information: Patient Supervisor Parking Lot Name/Contact Information: Missy Whitfield - sister Cognition/Language: Confused at baseline Permission given to speak with patient installation service representative/caregiver as indicated: Confirmation of Payer with patient/family: Yes Payer Name: [employer] Medicare : Confirmation of Primary Care Physician: Confirmed PCP Name: morris Carr Seen in last 2 years?: Yes Primary Caregiver: If assistance needed, confirmed caregiver ready, willing and able to care for patient at discharge: Confirmed with: lives at [facility] Living Arrangements Current Residence: Number of Floors Number of Entry Steps: Bed/Bath Levels: Facility: [facility] Name: [facility] Plan to Return: Lives with: Other (Comment) Support Systems: Family members Activities of Daily Living Ambulation: Total Care Bathing/Dressing: Total Care Elimination/Continence/Toileting: Assistance Feeding: Assistance Who Assists with Activities of Daily Living: staff at [facility] Instrumental Activities of Daily Living [...] expects to be discharged to: back to [facility] Discharge Planning Actions: No needs identified Patient's Choice Rights and [employer] and Collaborative Relationships Disclosed as Indicated for Post-Acute Care: Interdisciplinary Team Engagement: PT/OT Social Work Referral for: Additional Information: Patient remains on H6 after fall s/p [facility] 01/25/2023. Discharge order noted. Call placed to Missy Whitfield sister of patient. Missy answered admission questions. Patient lives at [facility] and uses a w/c at baseline, staff assists with all care. [facility] patient is at intermediate level of care and is a bedhold, able to take patient back today. drop board worker aware of need to transport. TCC to assist and follow as needed. Nyla Haider RN [facility] 01-26-2023 Note Hospitalist Discharg e Summary Claribel Stoll : 1955 Admit date: 01/24/2023 Discharge date: 01/26/2023 Admitting Physician: iKzzy Garsia MD Primary Care Physician: Morris Carr [...] 129* CALCIUM 8.9 8.4 8.7 Recent Labs 01/24/2321601/25/23 0038 01/26/23 0105 WBC [...] packet Recommended Follow-up: Randee Oliver MD [address] [facility] [address] Critical access hospital [phone] (more content not included)... [facility] 01-26-2023 Note OCCUPATIONAL THERAPY [facility] Initial Evaluation Name/MRN: Claribel Stoll ([id number]) Evaluation Date: 01/26/2023 Date of : 1955 [...] Closed fracture of right hip, initial encounter ([facility]) 01/24/2023 Left arm pain 03/06/2018 Closed fracture [...] events, decreased short term memory, and decreased terminal make up operator memory - Safety judgement: decreased awareness of need for assistance and decreased awareness of need for safety - Problem solving: assistance required to generate solutions - Insights: decreased awareness of deficits and not aware of deficits Overall Orientation Status: Oriented to Person, Disoriented to Situation, Disoriented to Time, and Disoriented to Place Social/Functional History Patient admitted from [facility] . Assistive Equipment: Unknown Prior Level of [...] 01/26/23 Expected End: (more content not included)... [facility] 01-26-2023 Note Hospitalist Progress Note 01/26/2023 [...] 5mg, scheduled Haldol and Lyrica. Evaluated by miller head assistant wet process. Also complaining of chest pain this morning [...] humerus LABS: CBC: Recent Labs 01/24/23 0217 01/25/238 01/26/23 010 WBC 14.6* 10.9* 14.7* RBC 4.18 3.81 3.75* HGB 11.3* 10.4* 10.2* HCT 35.6 32.9* 32.0* MCV 85.2 86.3 85.2 RDW 14.7* 15.0* 14.9* PLT 292 250 259 BMP: Recent Labs 01/24/237 01/25/23 0038 01/26/23 010 NA 137 135 137 K 4.3 3.8 3.9 CL 105 105 104 CO2 25 21* 24 BUN 19* 14 12 CREATININE 0.73 0.58 0.53 GLUCOSE 116* 97 129* CALCIUM 8.9 8.4 8.7 ANIONGAP 8 9 8 LIVER PROFILE: Recent Labs 01/26/23 010 AST 28 ALT 11 BILITOT 0.8 ALKPHOS 70 PROT 6.9 PT/INR: Recent Labs 01/24/23 0601 01/25/23 003 PROTIME 10.6 10.7 INR 1.0 1.0 CARDIAC [...] As a resul (more content not included)... [facility] 01-26-2023 Note Formatting of this n ote might be different from the original. Referral placed to [facility] via [facility] per TCC request. Await review and response regarding ability to accept. TCC notified. [facility] 01-26-2023 Note Formatting of this n ote might be different from the original. Referral placed to Return [facility]- [facility] via [facility] per TCC request. Await review and response regarding ability to accept. TCC notified. [facility] 01-26-2023 Note PHYSICAL THERAPY [facility] Initial Evaluation Name/MRN: Claribel Stoll ([id number]) Evaluation Date: 01/26/2023 Date of : 1955 Admission Date: 01/24/2023 12:48 AM Age: 67 y.o. Room/Bed: -6106/-6106 A Discharge Recommendation: SNF Equipment Needed: TBD [...] Closed fracture of right hip, initial encounter ([facility]) 01/24/2023 Left arm pain 03/06/2018 Closed fracture [...] normal Social/Functional History Patient admitted from [facility] . Assistive Equipment: Unknown Prior Level of [...] chair, chair al (more content not included)... [facility] 01-26-2023 Hospital course Narrative Images from [...] g packet Recommended Follow-up: Randee Oliver MD [address] [place] [address] [address] Critical access hospital [id number] Schedule an appointment as soon as possible for a visit in 2 week(s) Post-Op Check-up Morris Carr [address] [place] [address] [address] [facility] [phone] Follow up in 1 week(s) Complexity of Follow up: [] Moderate Complexity: follow up within 7-14 calendar days (49538) [x] Severe Complexity: follow up within 7 calendar days (83016) Follow up Testing, Pending results or Referrals [...] DO Division of Hospitalist Medicine Inpatient Medical Services/[facility] 01/26/2023, 10:44 AM documented in this encounter [facility] 01-26-2023 History of Present illness Narrative Images from the original note were not included. OCCUPATIONAL THERAPY [facility] Initial Evaluation Name/MRN: Claribel Stoll ([id number]) Evaluation Date: 01/26/2023 Date of : 1955 Admission Date: 01/24/2023 12:48 AM Age: 67 y.o. Room/Bed: [facility] A Discharge Recommendation: SNF Equipment Needed: front [...] Closed fracture of right hip, initial encounter ([facility]) 01/24/2023 Left arm pain 03/06/2018 Closed fracture [...] Place Social/Functional History Patient admitted from [facility] . Assistive Equipment: Unknown Prior Level of [...] of Care supervision is transferred to a [facility] Therapy Services Occupational Therapist. Goals and/or treatment [...] 5mg, scheduled Haldol and Lyrica. Evaluated by miller head assistant wet process. Also complaining of chest pain this morning [...] PLT 292 250 259 BMP: Recent Labs 01/24/2321601/25/23 0038 01/26/23 0105 NA 137 135 137 [...] Relation: Other Savanna Lutz DO [facility] Nutrition rescreen completed. Chart reviewed. Patient to be monitored and followed by the diet maintenance shop technician. CONNOR Canales Images from the original note were not included. PHYSICAL THERAPY [facility] Initial Evaluation Name/MRN: Claribel Stoll ([id number]) Evaluation Date: 01/26/2023 Date of : 1955 Admission Date: 01/24/2023 12:48 AM Age: 67 y.o. Room/Bed: [facility] A Discharge Recommendation: SNF Equipment Needed: TBD [...] Closed fracture of right hip, initial encounter ([facility]) 01/24/2023 Left arm pain 03/06/2018 Closed fracture [...] normal Social/Functional History Patient admitted from [facility] . Assistive Equipment: Unknown Prior Level of [...] Raw Score (No Stairs) : 10 JH-HLM -HLM Score: Transferred to chair/commode Plan Pt would [...] Minutes 21 PPE worn in accordance with [facility] [employer] guidelines. Zora Mcpherson, PT Patient's Physical Therapy Plan of Care supervision is transferred to a [facility] Therapy Services Physical Therapist. Goals and/or treatment plan was established in collaboration with patient/family/other representatives. [facility] PCU [address] [facility] [facility] [address] Dept: [phone] Loc: [phone] Orthopedic Progress Note Name: Claribel Stoll Date:01/26/2023 Attending:Savanna Lutz, DO Subjective Resting comfortably. Awakens easily and answered some questions. Does not participate in exam. Objective Vitals: Vitals: 01/25/23 1933 01/26/23 01001/26/23 0155 01/26/23 0458 BP: 123/65 111/58 (!) [...] Pulses: Palpable DP LABS: Recent Labs 01/24/2321601/25/238 01/26/23104 WBC 14.6* 10.9* 14.7* HGB 11.3* 10.4* 10.2* HCT 35.6 32.9* 32.0* PLT 292 250 259 Recent Labs 01/24/2321601/25/23 0038 01/26/23 010 NA 137 135 137 [...] drowsy, denies any complaints. Adult diet Regular @[id number]@ 24HR INTAKE/OUTPUT: Intake/Output Summary (Last 24 hours) [...] : Sammie Singh MD 01/25/2023 [facility] PAGER: [phone] Orthopedic surgery postoperative plan of care: -Operative [...] MD Orthopaedic Surgery PGY-3 9:47 AM 01/25/2023 [facility] PCU [address] [place] [address] Dept: [phone] Loc: [phone] Orthopedic Progress Note Name: Claribel Stoll Date:01/25/2023 [...] 35.6 32.9* PLT 292 250 Recent Labs 01/24/2321601/25/238 NA 137 135 K 4.3 3.8 CL [...] 01/24/2023 2:42 PM documented in this encounter [facility] 01-26-2023 Plan of care note Problem: Knowledge [...] skin integrity Relieve pressure to bony prominences [facility] 01-26-2023 Note [facility] PRO[facility]ARE UNIT PCU [address] [address] Dept: [phone] Loc: [phone] Orthopedic Progress Note Name: Claribel Stoll Date:01/26/2023 [...] 32.0* PLT 292 250 259 Recent Labs 01/24/237 01/25/238 01/26/23 0105 NA 137 135 137 K [...] Annie Mullen MD Orthopaedic Surgery, PGY-5 [phone] [facility] 01-26-2023 Nurse Note Pt alertness declined over shift, Dr Domínguez up to assess the patient. RAIL CAR REPAIRER notified per Dr Domínguez. RAIL CAR REPAIRER up to assess the patient. Narcan given per order with no change. Pt taken down to CT. [facility] 01-26-2023 Nurse Note Pt alertness declined over shift, Dr Domínguez up to assess the patient. RAIL CAR REPAIRER notified per Dr Domínguez. RAIL CAR REPAIRER up to assess the patient. Narcan given per order with no change. Pt taken down to CT. documented in this encounter [facility] 01-26-2023 Note Formatting of this n ote might be different from the original. Paged to Pt for concern of mental status global climate change analyst the course of the evening. Pt POD [...] CT Head for this mental status change [facility] Work Phone: 01-26-2023 Note Formatting of this n ote might be different from the original. Paged to Pt Rm for concern of mental status global climate change analyst the course of the evening. Pt POD [...] CT Head for this mental status change [employer] Phone: 01-26-2023 Note Formatting of this n [...] state age correctly, states she is at [employer] . She does not recall why [...] mental status. Order received for CT scan [employer] [facility] [employer] 01-26-2023 Note Formatting of this n ote [...] state age correctly, states she is at [facility] . She does not recall why [...] mental status. Order received for CT scan [employer] 01-25-2023 Note Hospitalist Progress Note Subjective: Admit Date: 01/24/2023 PCP: Morris Carr Room#: H-6106/H-6106 A Interval History: pt just back from surgery, feels drowsy, denies any complaints. Adult diet Regular @[id number]@ 24HR INTAKE/OUTPUT: Intake/Output Summary (Last 24 hours) [...] 15.0* PLT 292 250 BMP: Recent Labs 01/24/237 01/25/2337 NA 137 135 K 4.3 3.8 CL [...] 01/25/2023 Division of Hospitalist Medicine Inpatient Medical Services/[facility] [place] PAGER: [phone] [facility] 01-25-2023 Note Patient: Claribel jay Procedure Summary Date: 01/25/23 Room / Location: [facility] OR [address] [place] [address] Operating Room Anesthesia Start: 734 Anesthesia Stop: 1007 Procedure: HEMIARTHROPLASTY HIP PARTIAL POSTERIOR APPROACH (Right: Hip) Diagnosis: Closed fracture of right hip, initial encounter ([facility]) (Closed fracture of right hip, initial encounter ([facility]) [S72.001A]) Surgeons: Randee Oliver MD Responsible Provider: [...] once all PACU criteria has been met. [facility] 01-25-2023 Note Patient: Claribel jay Procedure Summary Date: 01/25/23 Room / Location: [facility] OR [address] [place] [address] Operating Room Anesthesia Start: 734 Anesthesia Stop: Procedure: HEMIARTHROPLASTY HIP PARTIAL POSTERIOR APPROACH (Right: Hip) Diagnosis: Closed fracture of right hip, initial encounter ([facility]) (Closed fracture of right hip, initial encounter ([facility]) [S72.001A]) Surgeons: Randee Oliver MD Responsible Provider: [...] opportunity for questions and acknowledgement of understanding. [facility] 01-25-2023 Note Orthopedic surgery p ostoperative [...] MD Orthopaedic Surgery PGY-3 9:47 AM 01/25/2023 [facility] 01-25-2023 Note Peripheral Block Time Out: [...] Block Prep: ChloraPrep Patient monitoring: heart rate, green lumber grader, continuous pulse ox and continuous capnometry O2: [...] changes noted and No symptoms of toxicityMedications kxxLBVKSiitxf-zcztngkpeho-zebankqt ine (TAP) syringe - Injection 60 mL - 01/25/2023 9:25:00 AM [facility] 01-25-2023 Note Formatting of this n ote might be different from the original. Pt to floor with transport, nad, resp non labored, alert and denies any pain [facility] 01-25-2023 Note Formatting of this n ote might be different from the original. Pt to floor with transport, nad, resp non labored, alert and denies any pain [facility] 01-25-2023 Note Formatting of this n ote might be different from the original. Report called to floor, transport initiated [facility] 01-25-2023 Note Formatting of this n ote might be different from the original. Report called to floor, transport initiated [facility] 01-25-2023 Note Airway Date/Time: 01/25/2023 7:45 AM Urgency: scheduled Airway not difficult General Information and Staff Patient location during procedure: Procedural Resident/CAR RUNNER: TILA Torrez CRNA Performed: CAR RUNNER Performed by: TILA Torrez CRNA Authorized by: [...] mask Number of other approaches attempted: 1 [facility] 01-25-2023 Hospital Discharge instructions Jericho Maradiaga [...] Minimal assistance Toileting Total assistance Feeding Independent Technology Auditor Minimal assistance Med Delivery yes Wound Care [...] not on home oxygen therapy. Ventilator: {TAYLOR Ventilator:62931} Rehab Therapies: {GEN THERAPY DISCIPLINE SCAL:7079596} Weight Bearing Status/Restrictions: weight bearing as tolerated Other Medical Equipment (for information only, NOT a DME order): wheeled walker Other Treatments: Patient's personal belongings (please select all that are sent with patient): clothing RN SIGNATURE: MANAGEMENT/SOCIAL WORK SECTION Inpatient Status Date: 01/24/2023 Readmission Risk Assessment Score: @READMISSIONRISKDETAILS@ Discharging to Facility/ Agency Name: [facility] Address: [address] [place] [address] Fax: Dialysis Facility (if applicable) Name: Address: Dialysis Schedule: Phone: Fax: Armor Officer/Lift Operator signature: {E-signature:50271} PHYSICIAN SECTION Prognosis: excellent Condition at Discharge: stable Rehab Potential (if transferring to Rehab): excellent Recommended Labs or Other Treatments After Discharge: CBC and BMP in 1 week Physician Certification: I certify the above information and transfer of Claribel Stoll is necessary for the continuing treatment of the diagnosis listed and that she requires nursing home facility for greater than 30 days. Update Admission H&P: No change in H&P PHYSICIAN SIGNATURE: documented in this encounter [facility] 01-25-2023 Note [facility] PCU [address] [facility] [address] Dept: [phone] Loc: [phone] Orthopedic Progress Note Name: Claribel Stoll Date:01/25/2023 [...] Pulses: Palpable DP LABS: Recent Labs 01/24/23 02101/25/2337 WBC 14.6* 10.9* HGB 11.3* 10.4* HCT [...] follow surgery Ever Hollingsworth M.D. Orthopaedic Surgery [facility] 01-25-2023 Note Patient: Claribel jay Procedure Information Date/Time: 01/25/23729 Procedure: HEMIARTHROPLASTY HIP PARTIAL POSTERIOR APPROACH (Right: Hip) Location: [facility] OR [address] [place] [address] Operating Room Surgeons: Randee Oliver MD Relevant [...] Dell Burden MD on 01/24/2023 2:07 AM [facility] 01-25-2023 Note Formatting of this n ote might be different from the original. [facility] OR [address] [facility] [address] Dept: [phone] Loc: [phone] Operative Report Patient Name: Claribel Stoll Date of : 1955 Date of Surgery: 01/25/23 Pre-operative diagnosis: Right displaced femoral neck fracture Post-operative diagnosis: Same Procedure(s): Cemented hemiarthroplasty of right hip (CPT 48625) Surgeon: Randee Oliver M.D. Automation Software Engineer(s): Jericho Maradiaga M.D. Anesthesia: General EBL: 50 [...] as well as medical complications such as AL, stroke, PE, DVT, and even . Patient [...] 24hrs Posterior hip precautions x 6 wks [place] [address]-03-2023 Note Formatting of this n ote might be different from the original. [facility] OR [address] [facility] [address] Dept: [phone] Loc: [phone] Operative Report Patient Name: Claribel Stoll Date of : 1955 Date of Surgery: 01/25/23 Pre-operative diagnosis: Right displaced femoral neck fracture Post-operative diagnosis: Same Procedure(s): Cemented hemiarthroplasty of right hip (CPT 21768) Surgeon: Randee Oliver M.D. Automation Software Engineer(s): Jericho Maradiaga M.D. Anesthesia: General EBL: 50 [...] as well as medical complications such as AL, stroke, PE, DVT, and even . Patient [...] 24hrs Posterior hip precautions x 6 wks [facility] 01-24-2023 Plan of care note Problem: Knowledge Deficit Goal: Patient/family/caregiver demonstrates understanding of disease process, treatment plan, medications, and discharge instructions Outcome: Progressing Problem: Potential for Compromised Skin Integrity Goal: Skin Integrity is Maintained or Improved Outcome: Progressing Goal: Nutritional status is improving Outcome: Progressing [facility] [employer] 01-24-2023 Emergency department Note Per previous RN , report called. Pt to [facility]. Pt left approx 1040am with [employer] transport. Altagracia Thapa RN 01/24/23 1045 [facility] [employer] 01-24-2023 Emergency department Note Per previous RN , report called. Pt to [facility]. Pt left approx 1040am with [employer] transport. Altagracia Thapa RN 01/24/23 1045 RN introduced her self. Pt on the monitor, call light in reach. Pt declined needs at this time Altagracia Thapa RN 01/24/23 1013 Physicians ETA 2-3 hours Karen Chavis RN 01/24/23 0635 [facility] ED EMERGENCY DEPARTMENT ENCOUNTER Pt Name: Claribel [...] presents to the emergency department patient from long-term. Apparently she fell yesterday and x-ray showed [...] test gait. We are confirming with the long-term if she has had right-sided facial drooping in the past. Reviewing paperwork from long-term she has a history of facial weakness [...] In compliance with this authorization, please visit www.fda.gov/media/898150/download or www.fda.gov/media/686776/download to access the applicable information sheets. TROPONIN I - Normal TROPONIN I <0.012 Narrative: Patients with high levels of Biotin oral intake (ie >5 mg/day) may have falsely decreased Troponin levels. All other labs were within normal range or not returned as of thisdictation. EMERGENCYDEPARTMENT COURSE and DIFFERENTIAL DIAGNOSIS/MDM: Vitals: Vitals: 01/24/23 00501/24/2321001/24/2321501/24/23217 BP: 97/55 110/50 BP Location: Left arm [...] had surgery on her left hip at [facility]. Will place consultation to [facility]. Chest x-ray per my interpretation no signs of pneumonia. CT of the head no acute process. My suspicion for PE is low I do not believe this is active ACS. This time no signs of pneumonia based on chest x-ray. She has no fever. Diagnoses as of 01/24/23 0346 Closed fracture of right hip, initial encounter ([facility]) Hypoxia Diagnostics considered but not indicated based on history, physical, testing: CT of the neck however not clinically indicated. External records reviewed: [facility] significant [facility]. Care Everywhere does reveal closed left hip fracture. This was in 01/27/2022 Reviewed long-term records she has a history of dementia [...] Closed fracture of right hip, initial encounter ([facility]) 2. Hypoxia DISPOSITION/PLAN DISPOSITION Admit 01/24/2023 03:12:34 AM PATIENT REFERRED TO: No follow-up provider specified. DISCHARGE MEDICATIONS: New Prescriptions No medications on file @[facility]([id number]:LAST:1)@ (Comment: Please notethis report has been produced [...] RN 01/24/23 0048 documented in this encounter [facility] 01-24-2023 Emergency department Note RN introduced her self. Pt on the monitor, call light in reach. Pt declined needs at this time Altagracia Thapa RN 01/24/23 1013 [facility] 01-24-2023 Emergency department Note Physicians ETA 2-3 hours Karen Chavis RN 01/24/23 0635 [facility] 01-24-2023 Note Attending History an d Physical [...] no m/r/g Abdomen: soft, nondistended, nontender, BS+ AUTO TRANSPORT DRIVER: Awake and alert, pleasantly confused Ext: pulse [...] Extended Emergency Contact Information Primary Emergency Contact: NahidMissy Mobile Relation: Sibling Secondary Emergency Contact: OpalYoel Relation: Other Kizzy Singh (more content not included)... [facility] 01-24-2023 Consult note Associated Order (s): IP CONSULT TO ORTHOPAEDIC SURGERY Ortho Consult Patient: Claribel Stoll Date of : 1955 Acct: [id number] PCP: Morris Carr Date of Admission: 01/24/2023 Date of Service: Pt seen/examined on 01/24/2023 Chief Complaint: Right hip pain History Of Present Illness: 67 y.o. female with PMHx of dementia who presents with right hip pain after a fall from standing. She was sent to the emergency department from her long-term in [place] she is pleasantly demented on exam and able to answer some but not all questions. Reports right hip pain but otherwise denies pain in extremities. PMH of dementia. Lives in long-term. Orthopaedic surgery history: -Prior left hip hemiarthroplasty done at [facility] 11/2021 -Known to Dr. Redman for [...] OR for R hip hemiarthroplasty -Transfer to [facility] for surgery -NPO, hold anticoags [...] as well as medical complications such as AL, stroke, PE, DVT, and even . Pt was given opportunity to ask questions and consider her options. She ultimately elected to proceed with surgery. No guarantees were given or implied. Randee Oliver MD [employer] Phone: 01-24-2023 Consult note Associated Order (s): IP CONSULT TO ORTHOPAEDIC SURGERY Ortho Consult Patient: Claribel Stoll Date of : 1955 Acct: [id number] PCP: Morris Carr Date of Admission: 01/24/2023 Date of Service: Pt seen/examined on 01/24/2023 Chief Complaint: Right hip pain History Of Present Illness: 67 y.o. female with PMHx of dementia who presents with right hip pain after a fall from standing. She was sent to the emergency department from her long-term in [place] she is pleasantly demented on exam and able to answer some but not all questions. Reports right hip pain but otherwise denies pain in extremities. PMH of dementia. Lives in long-term. Orthopaedic surgery history: -Prior left hip hemiarthroplasty done at [facility] 11/2021 -Known to Dr. Redman for [...] OR for R hip hemiarthroplasty -Transfer to [facility] for surgery -NPO, hold anticoags [...] as well as medical complications such as AL, stroke, PE, DVT, and even . Pt was given opportunity to ask questions and consider her options. She ultimately elected to proceed with surgery. No guarantees were given or implied. Randee Oliver MD documented in this encounter [facility] 01-24-2023 History and physical note Images from [...] no m/r/g Abdomen: soft, nondistended, nontender, BS+ AUTO TRANSPORT DRIVER: Awake and alert, pleasantly confused Ext: pulse [...] Kizzy Garsia MD Division of Hospitalist Medicine [facility] [employer] Work Phone: 01-24-2023 History and physical note [...] no m/r/g Abdomen: soft, nondistended, nontender, BS+ AUTO TRANSPORT DRIVER: Awake and alert, pleasantly confused Ext: pulse [...] Extended Emergency Contact Information Primary Emergency Contact: NahidMissy Mobile Relation: Sibling Secondary Emergency Contact: OpalYoel Relation: Other Kizzy Garsia MD Division of Hospitalist Medicine [facility] documented in this encounter [facility] 01-24-2023 Emergency department Note Bed: 33 Expected date: 01/24/23 Expected time: Means of arrival: Comments: [facility] Karen Chavis RN 01/24/23 0048 [facility] 01-24-2023 Physician Emergency department Note [facility] ED EMERGENCY DEPARTMENT ENCOUNTER Pt Name: Claribel [...] presents to the emergency department patient from long-term. Apparently she fell yesterday and x-ray showed [...] test gait. We are confirming with the long-term if she has had right-sided facial drooping in the past. Reviewing paperwork from long-term she has a history of facial weakness [...] In compliance with this authorization, please visit www.fda.gov/media/737012/download or www.fda.gov/media/423764/download to access the applicable information sheets. TROPONIN I - Normal TROPONIN I <0.012 Narrative: Patients with high levels of Biotin oral intake (ie >5 mg/day) may have falsely decreased Troponin levels. All other labs were within normal range or not returned as of thisdictation. EMERGENCYDEPARTMENT COURSE and DIFFERENTIAL DIAGNOSIS/MDM: Vitals: Vitals: 01/24/23 0053 01/24/23 02101/24/236 01/24/238 BP: 97/55 110/50 BP Location: Left arm [...] DIAGNOSIS/MDM: Vitals: Vitals: 01/24/23 0053 01/24/23 0211 01/24/23 0216 01/24/23 0218 BP: 97/55 110/50 BP Location: Left arm [...] had surgery on her left hip at [facility]. Will place consultation to orthopedics [facility]. Chest x-ray per my interpretation no signs of pneumonia. CT of the head no acute process. My suspicion for PE is low I do not believe this is active ACS. This time no signs of pneumonia based on chest x-ray. She has no fever. Diagnoses as of 01/24/23 0346 Closed fracture of right hip, initial encounter ([facility]) Hypoxia Diagnostics considered but not indicated based on history, physical, testing: CT of the neck however not clinically indicated. External records reviewed: No significant records in [facility]. Care Everywhere does reveal closed left hip fracture. This was in 01/27/2022 Reviewed long-term records she has a history of dementia [...] Closed fracture of right hip, initial encounter ([facility]) 2. Hypoxia DISPOSITION/PLAN DISPOSITION Admit 01/24/2023 03:12:34 AM PATIENT REFERRED TO: No follow-up provider specified. DISCHARGE MEDICATIONS: New Prescriptions No medications on file @[facility]([id number]:LAST:1)@ (Comment: Please notethis report has been produced [...] Burden MD 01/24/23332 Dell Burden MD 01/24/23345 [facility] 01-27-2022 Note HNO ID: [id number] Author: Yasmany Roman MD Service: ? Author [...] has been working on ambulation at the long-term. REVIEW OF SYSTEMS: MUSCULOSKELETAL: Negative for joint [...] Take 500 mg by mouth twice daily. thadbt-ecinjegq-djtttwr (CREON 6) 6,000-19,000 -30,000 unit delayed release [...] x-rays. Return as needed. Yasmany Roman MD [facility] 01-27-2022 History of Present illness Narrative 01/27/2022 RE: Claribel Stoll DATE OF : 1955 Vitals: Resp 18 Ht 5' 5" (1.65m) Wt 150 lb (68.0kg) BMI 24.96 kg/(m^2). FOLLOW UP VISIT: Post insertion hemiarthroplasty left hip HPI: She is not having significant discomfort in her left hip. She has been working on ambulation at the long-term. REVIEW OF SYSTEMS: MUSCULOSKELETAL: Negative for joint [...] Take 500 mg by mouth twice daily. lnyfxg-uhotpawd-vdewstw (CREON 6) 6,000-19,000 -30,000 unit delayed release [...] Yasmany Roman MD documented in this encounter [facility] 12-24-2021 Note HNO ID: [id number] Author: Elisabeth Rivers RN Service: Care Management Author Type: Registered Nurse Type: Care Mgt Progress Note Filed: 12/24/2021 3:36 PM Note Text: CARE MANAGEMENT PROGRESS NOTE SERVICE DATE: 12/24/2021 SERVICE TIME: 1533 LOS: 11 days Per [facility] precert still pending with [facility]. Received phone call from medical case worker Sasha with [facility]. Per Sasha Valor is primary insurance and will not need precert to return to [facility]. Received confirmation from [facility] patient can return today. I left voice messages with her family Garry and Missy she will return to [facility] today at 1930. Copy of the [facility] insurance card faxed to me and I sent it to the admitting department. SIGNATURE: Elisabeth Rivers RN PATIENT NAME: Claribel Stoll DATE: December 24, 2021 TIME: 3:31 PM PAGER/CONTACT #: [phone] [facility] 12-24-2021 Note HNO ID: [id number] Author: Kevyn Hobbs MD Service: Orthopaedic Surgery [...] SNF, dc when precert completed, pending at [facility] management assistance INTERVAL HPI: No acute events [...] Rate, Chipren 36 05/12/2018 CRP 6.85 05/12/2018 Kevyn Hobbs MD December 24, 2021 6:09 AM [facility] 12-23-2021 Note HNO ID: [id number] Author: Elisabeth Rivers RN Service: Care Management Author Type: Registered Nurse Type: Care Mgt Progress Note Filed: 12/23/2021 3:00 PM Note Text: CARE MANAGEMENT PROGRESS NOTE SERVICE DATE: 12/23/2021 SERVICE TIME: 1458 LOS: 10 days Per message from [facility] they are still waiting on precert for admission. Phone call from Jesus with the [facility] department and they are reaching out to [place] regarding authorization. SIGNATURE: Elisabeth Rivers RN PATIENT NAME: Claribel Commings DATE: December 23, 2021 TIME: 2:58 PM PAGER/CONTACT #: [phone] [facility] 12-23-2021 Note HNO ID: [id number] Author: Elisabeth Rivers RN Service: Care Management Author Type: Registered Nurse Type: Care Mgt Progress Note Filed: 12/23/2021 9:53 AM Note Text: CARE MANAGEMENT PROGRESS NOTE SERVICE DATE: 12/23/2021 SERVICE TIME: 53 LOS: 10 days Updated progress notes and therapy notes sent to [facility] SIGNATURE: Elisabeth Rivers RN PATIENT NAME: Claribel Commings DATE: December 23, 2021 TIME: 9:52 AM PAGER/CONTACT #: [phone] [facility] 12-23-2021 Note HNO ID: [id number] Author: Fatimah Simon MD Service: Orthopaedic Surgery [...] SNF, dc when precert completed, pending at [facility], appreciate care management assistance INTERVAL HPI: No [...] Sed RateArcenio 36 05/12/2018 CRP 6.85 05/12/2018 Fatimah Simon MD Orthopaedic Surgery 12/23/2021 6:01 AM [facility] 12-22-2021 Note HNO ID: [id number] Author: Gagan Villasenor MD Service: Orthopaedic Surgery [...] Villasenor MD Orthopaedic Surgery 12/22/2021 6:01 AM [facility] 12-21-2021 Note HNO ID: [id number] Author: Shira Kimbrough RN Service: Care Management Author Type: Registered Nurse Type: Care Mgt Progress Note Filed: 12/21/2021 2:57 PM Note Text: CARE MANAGEMENT PROGRESS NOTE SERVICE DATE: 12/21/2021 SERVICE TIME: 2:44 PM LOS: 8 days Chart reviewed. Precert appears to still be pending. This CM has sent multiple messages to [facility] [place] inquiring about pending precert, but have not gotten a response. Since patient is LTC there, unsure why she would need to remain hospitalized while a skilled precert is pending. Asked [facility] to assist by investigating, but [employer] is closed today and the only info she could find in the portal is patient's LTC auth valid 05/24/21-05/24/22. SIGNATURE: Shira Kimbrough RN PATIENT NAME: Claribel Stoll DATE: December 21, 2021 TIME: 2:44 PM PAGER/CONTACT #: [phone] [facility] 12-21-2021 Note HNO ID: [id number] Author: Anthony Bullard MD Service: Orthopaedic Surgery [...] imaging Isaias Bullard MD Orthopaedic Surgery 12/21/2021 [facility] 12-21-2021 Note HNO ID: [id number] Author: Alex Royal RN Service: Nursing Author Type: Registered Nurse Type: Nursing Progress Note Filed: 12/21/2021 5:16 AM Note Text: Pt refuses 0400 vital signs and blood draw. Dr. Villasenor notified. I will continue to monitor. [facility] 12-20-2021 Note HNO ID: [id number] Author: Elisabeth Rivers RN Service: Care Management Author Type: Registered Nurse Type: Care Mgt Progress Note Filed: 12/20/2021 3:34 PM Note Text: CARE MANAGEMENT PROGRESS NOTE SERVICE DATE: 12/20/2021 SERVICE TIME: 1532 LOS: 7 days Received phone calls from both brother garry and sister Missy. Updated them waiting precert for return to [facility]. Confirmed with Garry plan is to return to [facility]. SIGNATURE: Elisabeth Rivers RN PATIENT NAME: Claribel Commings DATE: December 20, 2021 TIME: 3:32 PM PAGER/CONTACT #: [phone] [facility] 12-20-2021 Note HNO ID: [id number] Author: Elisabeth Rivers RN Service: Care Management Author Type: Registered Nurse Type: Care Mgt Progress Note Filed: 12/20/2021 2:53 PM Note Text: CARE MANAGEMENT PROGRESS NOTE SERVICE DATE: 12/20/2021 SERVICE TIME: 1451 LOS: 7 days Per [facility] precert still pending. Unable to reach brother Garry regarding discharge plans. Left voice message for her sister Missy at [phone]. Patient is resident of [facility]. SIGNATURE: Elisabeth Rivers RN PATIENT NAME: Claribel Commings DATE: December 20, 2021 TIME: 2:51 PM PAGER/CONTACT #: [phone] [facility] 12-20-2021 Note HNO ID: [id number] Author: Fatimah Simon MD Service: Orthopaedic Surgery [...] Simon MD Orthopaedic Surgery 12/20/2021 5:31 AM [facility] 12-19-2021 Note HNO ID: [id number] Author: Elisabeth Rivers RN Service: Care Management Author Type: Registered Nurse Type: Care Mgt Progress Note Filed: 12/19/2021 4:15 PM Note Text: CARE MANAGEMENT PROGRESS NOTE SERVICE DATE: 12/19/2021 SERVICE TIME: 1615 LOS: 6 days Precert still pending for [facility] SIGNATURE: Elisabeth Rivers RN PATIENT NAME: Claribel [place] DATE: December 19, 2021 TIME: 4:15 PM PAGER/CONTACT #: [phone] [facility] 12-19-2021 Note HNO ID: [id number] Author: Reinier Cohen DO Service: Hospital Medicine [...] independent professional judgment. Thank you, Jen Osorio, [facility] team [phone] [facility] 12-19-2021 Note HNO ID: [id number] Author: Fatimah Simon MD Service: Orthopaedic Surgery [...] Simon MD Orthopaedic Surgery 12/19/2021 5:31 AM [facility] 12-18-2021 Note HNO ID: [id number] Author: Elisabeth Rivers RN Service: Care Management Author Type: Registered Nurse Type: Care Mgt Progress Note Filed: 12/18/2021 4:01 PM Note Text: CARE MANAGEMENT PROGRESS NOTE SERVICE DATE: 12/18/2021 SERVICE TIME: 1601 LOS: 5 days Precert pending for [facility]. SIGNATURE: Elisabeth Rivers RN PATIENT NAME: Claribel Stoll DATE: December 18, 2021 TIME: 4:01 PM PAGER/CONTACT #: [phone] [facility] 12-18-2021 Note HNO ID: [id number] Author: Fatimah Simon MD Service: Orthopaedic Surgery [...] INR 1.0 12/14/2021 SED RATE/CRP: Sed Rate, Arc[place] 36 05/12/2018 CRP 6.85 05/12/2018 Imaging: No new orthopedic imaging Fatimah Simon MD Orthopaedic Surgery 12/18/2021 5:31 AM [facility] 12-17-2021 Note HNO ID: [id number] Author: Corry Lewis RN Service: Nursing Author Type: Registered Nurse Type: Progress Notes Filed: 12/17/2021 4:37 PM Note Text: Ortho residents notified patient pulled off left hip silver mepalex dressing and one steri strip, RN replaced with large aquacel, no signs of dehiscence. [facility] 12-17-2021 Note HNO ID: [id number] Author: Elisabeth Rivers RN Service: Care Management Author Type: Registered Nurse Type: Care Mgt Progress Note Filed: 12/17/2021 10:20 AM Note Text: CARE MANAGEMENT PROGRESS NOTE SERVICE DATE: 12/17/2021 SERVICE TIME: 1015 LOS: 4 days Chart reviewed. Patient is from [facility]. Return referral sent. Left voice message for brother Garry to confirm discharge plans. Patient unable to answer questions due to mental status. SIGNATURE: Elisabeth Rivers RN PATIENT NAME: Claribel Stoll DATE: December 17, 2021 TIME: 10:15 AM PAGER/CONTACT #: [phone] [facility] 12-17-2021 Note HNO ID: [id number] Author: Fatimah Simon MD Service: Orthopaedic Surgery [...] Simon MD Orthopaedic Surgery 12/17/2021 5:31 AM [facility] 12-16-2021 Note HNO ID: [id number] Author: Fatimah Simon MD Service: Orthopaedic Surgery [...] Simon MD Orthopaedic Surgery 12/16/2021 5:11 AM [facility] 12-15-2021 Note HNO ID: [id number] Author: Taniya Jenkins RN Service: Nursing Author Type: Registered Nurse Type: Progress Notes Filed: 12/15/2021 11:25 AM Note Text: Summary: RESTRAINT NON-VIOLENT Nursing Progress: Topic: RESTRAINT NON-VIOLENT PATIENT NAME: Claribel Stoll PATIENT LOCATION: [place] [address] [address] The patient demonstrates Attempting to Remove Medical [...] 2021 TIME: 11:24 AM Taniya Jenkins RN [facility] 12-15-2021 Note HNO ID: [id number] Author: Reinier Cohen DO Service: Hospital Medicine Author Type: Physician Type: Progress Notes Filed: 12/15/2021 1:17 PM Note Text: DEPARTMENT OF HOSPITAL MEDICINE PROGRESS NOTE SERVICE DATE: 12/15/2021 SERVICE TIME: 12:55 PM Hospital Medicine/Primary Attending: Reinier Cohen DO NIGHT AND WEEKEND COVERAGE: After 7pm please page [phone] SUBJECTIVE: Notified by nursing staff patient had [...] the last 24 hours. BMP: Recent Labs 10/23/22 0305 NA 135* K 4.8 CHLOR 100 [...] POA: Yes This note was generated using [employer] voice dictation. All reasonable efforts were made to correct dictation errors. SIGNATURE: Reinier Cohen DO PATIENT NAME: Claribel Stoll DATE: December 15, 2021 TIME: 12:55 PM PAGER/CONTACT #: My Pager [facility] 12-15-2021 Note HNO ID: [id number] Author: Fatimah Simon MD Service: Orthopaedic Surgery [...] Simon MD Orthopaedic Surgery 12/15/2021 5:11 AM [facility] 12-14-2021 Note HNO ID: [id number] Author: Naveen Cameron APRN.CAR RUNNER Service: Anesthesiology Author Type: Nurse Location Manager Type: Anesthesia Procedure Notes Filed: 12/14/2021 1:37 PM Note Text: ANESTHESIOLOGY PROCEDURE NOTE Airway General Information Procedure Start Time/Medication Administration: 12/14/2021 1:27 PM Patient location during procedure: OR Timeout Performed Pre-procedure: timeout performed Consent Obtained: Yes Patient identity confirmed: arm band, patient and family Staffing CAR RUNNER: Naveen Cameron APRN.CAR RUNNER Indications and Patient Condition Indications for airway management: anesthesia Preoxygenated: yes anesthesia circuit Method: sleep Cricoid Pressure: No Manual In-Line Stabilization: No Difficult Mask: No Final Airway Details Final airway type: endotracheal airway Final Endotracheal Airway: ETT Cuffed: yes Successful intubation technique: video laryngoscopy Devices used: VenueJam Endotracheal tube insertion site: oral Blade: Kimberlyn [...] December 14, 2021 TIME: 1:37 PM CSN: [id number] [facility] 12-14-2021 Note HNO ID: [id number] Author: Naveen Cameron APRN.CAR RUNNER Service: Anesthesiology Author Type: Nurse Location Manager Type: Anesthesia Procedure Notes Filed: 12/14/2021 12:59 PM Note Text: ANESTHESIOLOGY PROCEDURE NOTE PIV General Information Procedure Start Time/Medication Administration: 12/14/2021 12:50 PM Patient Location: OR Staffing CAR RUNNER: Naveen Cameron APRN.CAR RUNNER Preparation Sterility Preparation: hand hygiene performed prior to procedure, surgical cap used, mask used, skin prep agent completely dried prior to procedure Sterility Technique Not Completely Performed Due to Extreme Emergency: No Site Prep: Chloraprep Procedure Details Indication: need for IV access Needle Size/Type: 20 gauge angiocath Orientation: Right Location: Wrist Imaging Guidance Used: No SIGNATURE: Naveen Cameron APRN.CRNA [facility] [place] DATE: December 14, 2021 TIME: 12:58 PM CSN: [id number] [facility] 12-14-2021 Note HNO ID: [id number] Author: Naveen Cameron APRN.CRNA Service: Anesthesiology Author Type: Nurse Location Manager Type: Anesthesia Procedure Notes Filed: 12/14/2021 12:58 PM Note Text: ANESTHESIOLOGY PROCEDURE NOTE Airway General Information Procedure Start Time/Medication Administration: 12/14/2021 12:36 PM Patient location during procedure: OR Timeout Performed Pre-procedure: timeout performed Consent Obtained: Yes Patient identity confirmed: arm band, family and patient Staffing CAR RUNNER: Naveen Cameron APRN.CRNA Indications and Patient Condition [...] SIGNATURE: Naveen Cameron APRN.CRNA PATIENT NAME: Claribel [facility] DATE: December 14, 2021 TIME: 12:58 PM CSN: [id number] [facility] 12-14-2021 Note HNO ID: [id number] Author: Fatimah Simon MD Service: Orthopaedic Surgery [...] Simon MD Orthopaedic Surgery 12/14/2021 5:37 AM [facility] 12-13-2021 History of Past i llness Narrative Problem Noted Date Resolved Date Closed displaced fracture of left femoral neck 1 12/17/2021 Hyponatremia 05/10/2018 05/12/2018 Last Assessment & Plan: Assessment: -Hypochloremic hyponatremia likely from volume depletion PLAN: -Continue IVF resuscitation -F/u Na on morning BMP -If no improvement consider further urine studies Urinary tract infection 05/10/2018 05/20/19 Last Assessment & Plan: Assessment: -The patient was complaining of abdominal pain and dysuria. -UA showed evidence of infection -Urine culture showed Escherichia coli -Started on empiric Vanc/zosyn in ED -Switch to Keflex, completed her course PLAN: -Today the last dose of Keflex. documented as of this encounter (statuses as of 01/27/2022) [facility] noteNo assessment information availableWHighland District Hospital Work Phone: Evaluation note* Diagnosis Closed subcapital fracture of left femur with routine healing, subsequent encounter- Primary documented in this encounter [facility] note* Diagnosis Closed fracture of right hip, [...] or anxiety (HCC) documented in this encounter [facility] for referral (narrative)* Diagnostic Procedure Only (Routine) - Pending Review Specialty Diagnoses / Procedures Referred By Contac t Referred To Contact XR IMAGING Diagnoses Closed subcapital fracture of left femur with routine healing, subsequent encounter Procedures XR HIP 2V AP/LAT LEFT (AK,FL,ME) RADEX HIP UNILATERAL WITH PELVIS 2-3 VIEWS Yasmany Roman MD [address] [facility] [address] [place] [address] Xr Imaging Referral ID Status Reason Start Date Expiration Date Visits Requested Visits Authorized [id number] Pending Review Auto-Generat ed Referral 01/27/2022 02/26/2023 1 1 [facility] Summary Purpose Family History No Family History Records FoundNo Family History Records FoundNo Family History Records FoundNo Family History Records FoundNo Family History Records Found Advance Directives No Advanced Directives Records FoundDocuments on File Type Date Recorded Patient Supervisor Parking Lot Expl anation Advance Directive(s) 12/25/2021 2:38 PM [...] Complaint and Reason for Visit Chief Complaint PRISON LABWORK PRISON PATIENT Chief Complaint PRISON LABWORK PRISON PATIENT LABWORK Chief Complaint PRISON LABWORK PRISON PATIENT LABWORK PRISON LAB WORK Chief Complaint PRISON LABWORK LABWORK Chief Complaint PRISON LABWORK PRISON LAB WORK Chief Complaint PRISON LABWORK PRISON LAB WORK LABWORK Chief Complaint PRISON LABWORK PRISON LAB WORK LABWORK LABWORK LABWORK Chief Complaint PRISON LABWORK PRISON LAB WORK LABWORK LABWORK LABWORK PRISON LAB WORK LABWORK Chief Complaint LABWORK LABWORK LABWORK PRISON LAB WORK LABWORK PRISON LAB WORK LABWORK Chief Complaint LABWORK LABWORK LABWORK PRISON LAB WORK LABWORK PRISON LAB WORK LABWORK PRISON LAB WORK Chief Complaint LABWORK PRISON LAB WORK LABWORK PRISON LAB WORK LABWORK PRISON LAB WORK LABWORK Additional Source Comments INFORMATION SOURCE (unrecogn ized section and content) DATE CREATED AUTHOR 04/14/2018 [employer] DATE CREATED AUTHOR AUTHOR'S ORGANIZ ATION [facility]/03/[facility] DATE CREATED AUTHOR AUTHOR'S ORGANIZ ATION 04/24/2022 [facility] DATE CREATED AUTHOR AUTHOR'S ORGANIZ ATION 01/28/2023 [facility] [facility] DATE CREATED AUTHOR AUTHOR'S ORGANIZ ATION 11/07/2024 [facility] Goals (unrecognized section and content) Goals may [...] or prosecute any alcohol or drug abuse patient.[facility] Reason for Visit (unrecogniz ed section and content) Reason Comments Post Op Reason Comments Hip Pain Pt [facility] a hip fracture. Pt fell yesterday morning and had an xray done that showed a r hip fracture. Specialty Diagnoses / Procedures Referred By Contac t Referred To Contact Diagnoses Closed fracture of right hip, initial encounter ([facility]) Procedures S72.001A Kizzy Garsia MD [address] [place] [address] [facility] [address] [place] [address] Referral ID Status Reason Start Date Expiration Date Visits Re quested Visits Authorized [id number] 1 1 Care Teams (unrecognized sec tion and content) Team Status: Inactive Member Role Status Dates Morris BEAL Attending Provider Active Team Status: Inactive Member Role Status Dates Morris BEAL Attending Provider, Referring Provid er Active Team Status: Active Member Role Status Dates Morris BEAL Attending Provider Active Certified Legal Secretary Specialist Relationship Specialty Start Date End Date Kelly Lang RN Specialty Outpatient Interviewing Clerk Orthopedics 12/17/21 Certified Legal Secretary Specialist Relationship Specialty Start Date End Date Morris Carr [address] [place] [address] [address] [place] [address] PCP - General Family Medicine 01/24/23 Scheduled [...] (MAR Unhold - Provider: Automatic Transfer Provider) 0830 [...] Auto Held - Provider: Automatic Transfer Provider)1112 ([facility] Unhold - Provider: Automatic Transfer Provider) 0829 [...] (Given - Provider: Carlos Kaur LPN) 0734 ([facility] Hold - Provider: Automatic Transfer Provider - Reason: Patient not available)0900 (Dose Auto Held - Provider: Automatic Transfer Provider)1112 ([facility] Unhold - Provider: Automatic Transfer Provider)1328 (Given - Provider: Gertrude Camargo, FRANCOIS)1937 (Given - Provider: Carlos Kaur LPN) 0829 (Given - Provider: Yumi Feng RN)1409 (Given - Provider: Yumi Feng RN) Influenza Vac A&B SA Adj quadrivalent (Fluad) vaccine 0.5 mL 0.5 mL, IntraMUSCular, Once, On Thu01/25/23 at 0900, For 1 dose 0734 ([facility] Hold - Provider: Automatic Transfer Provider - Reason: Patient not available)0900 (Dose Auto Held - Provider: Automatic Transfer Provider)1112 ([facility] Unhold - Provider: Automatic Transfer Provider) levothyroxine [...] Automatic Transfer Provider)1328 (Given - Provider: Gertrude E. Oyster, RN)1938 (Given - Provider: Carlos Kaur LPN) 0829 (Given - Provider: Yumi Feng, FRANCOIS)1409 (Given - Provider: Yumi Feng RN) sodium [...] from all sources in 24 hours. 0734 ([facility] Hold - Provider: Automatic Transfer Provider - Reason: Patient not available)1112 ([facility] Unhold - Provider: Automatic Transfer Provider) acetaminophen (Tylenol) tablet 650 mg(Linked Group 1) 650 mg, Oral, Every 6 hours PRN, mild pain (1-3), fever, For temp greater than 100.4 F (38 C), Starting on 01/24/23 at 1109, Maximum dose of acetaminophen is 4000 mg from all sources in 24 hours. 0734 ([facility] Hold - Provider: Automatic Transfer Provider - Reason: Patient not available)1112 ([facility] Unhold - Provider: Automatic Transfer Provider) melatonin tablet 5 mg 5 mg, Oral, Nightly PRN, sleep, Starting on 01/24/23 at 0517 0734 ([facility] Hold - Provider: Automatic Transfer Provider - Reason: Patient not available)1112 ([facility] Unhold - Provider: Automatic Transfer Provider) naloxone (Narcan) injection 0.4 mg 0.4 mg, IntraVENous, PRN, opioid reversal, Starting on 01/26/23 at 0139, For oversedation/difficult to rouse, pinpoint pupils, RR < 8; notify primary team compressor station chief engineer if used 0147 (Given - Provid er: Lio Hanna RN) oxyCODONE (Roxicodone) immediate release tablet 5 mg 5 mg, Oral, Every 6 hours PRN, severe pain (7-10), Starting on 01/24/23 at 0600, For 2 doses 0734 (APR Hold - Provider: Automatic Transfer Provider - Reason: Patient not available)1112 ([facility] Unhold - Provider: Automatic Transfer Provider)1506 (Given - Provider: Gertrude Camargo RN) polyethylene glycol (PEG) 3350 (Miralax) packet 17 g 17 g, Oral, Daily PRN, constipation, Starting on 01/24/23 at 1109, 1st line for treatment of constipation - give scheduled if no bowel movement in past 24 hours. 0734 (APR Hold - Provider: Automatic Transfer Provider - Reason: Patient not available)1112 ([facility] Unhold - Provider: Automatic Transfer Provider) sodium [...] BE BASED ON THE PRIMARY CLINICAL RECORDS. [employer] [facility]. provides no warranty or guarantee of the accuracy or completeness of information in this document.
[2024-12-26 08:47] LABS: Hematocrit 33.5 % (37-47); Hemoglobin 10.4 g/dL (12.0-15.0); Mean Corp Hgb Conc 31.0 g/dL (32-36); Mean Corpuscular Volume 89.1 fL (81-99); Mean Platelet Vol. 9.6 fl (6.2-12.0); Platelet Count 397 K/mm3 (150-450); RBC Distribution Width CV 15.1 % (11.6-14.6); RBC Distribution Width SD 49.4 fl (35.1-43.9); Red Blood Count 3.76 M/mm3 (4.2-5.4); White Blood Count 9.9 K/mm3 (4.4-11.0)
[2024-12-26 09:08] LABS: Anion Gap 8 (5-15); BUN 22 mg/dL (4-19); BUN/Creat Ratio 37.5 RATIO (10-20); Calcium,Total 9.2 mg/dL (7.6-11.0); Carbon Dioxide 27.2 mmol/L (21.0-32.0); Chloride 107 mmol/L (98-108); Cholesterol 119 mg/dL (<=200); Glucose 82 mg/dL (70-99); Low Density Lipoprotein Calc. 41 mg/dL; Potassium 3.9 mmol/L (3.3-5.1); Triglycerides 55 mg/dL; Very Low Density Lipoprotein 11 mg/dL (5-40); cholesterol:hdl ratio screen 1.81
== END ==
LOC: OLS.ACW400 04:00
PROVIDERS: Referring Provider Family Medicine; Visit Provider Family Medicine
DX: J44.9 Chronic obstructive pulmonary disease, unspecified (principal); Z79.899 Other long term (current) drug therapy
CPT/HCPCS: 36415; 80048; 80061; 84443; 85027